=== PATIENT | female | born 1995 | race Caucasian/White ===

== ENCOUNTER 2019-12-04 11:33 | Emergency (ER) | payer SELFPAY ==
--- NOTE | 2019-12-04 11:36 | ED.URI ---
HPI - URI/Sore Throat General Chief Complaint: Upper Respiratory Infection Stated Complaint: head congestion Time Seen by Provider: 12/04/19 11:36 Source: patient and RN notes reviewed History of Present Illness HPI Narrative: Patient is a 24-year-old female who presents the urgent care with complaints of sinus congestion. Patient states that she woke up with it this morning and it has been going around the home for the last week . Patient states that her kids have been taking allergy medication for relief. Patient has not taken anything for her symptoms but was told by her employer to get it checked out . Patient denies any cough, fever, nausea, vomiting. Denies of any known exposure to COVID. No other acute complaints. No acute distress noted. Patient read the plan of care. Related Data Home Medications Medication Instructions Recorded Confirmed No Home Medications 12/04/19 12/04/19 Allergies Allergy/AdvReac Type Severity Reaction Status Date / Time No Known Allergies Allergy Unverified 11/22/18 15:38 Review of Systems Review of Systems: Narrative: CONSTITUTIONAL: Denies fever, chills, or sweats. EYES: Denies visual changes, redness, or discharge. ENT: Reports of sinus congestion CARDIOVASCULAR: Denies chest pain, palpitations, or edema. RESPIRATORY: Denies cough or dyspnea. GASTROINTESTINAL: Denies abdominal pain, nausea, vomiting, or diarrhea. GENITOURINARY: Denies dysuria or hematuria. SKIN: Denies rash or itching. MUSCULOSKELETAL: Denies back pain, joint pain, or myalgia. NEUROLOGIC: Denies headache, numbness, or weakness. All other systems reviewed are negative, except as documented in HPI. PMFSH Comments At the time of my signature, I reviewed and agree with the nursing past medical, surgical, social, and family history. There is no relevant family history pertinent to the patient complaint. Exam Narrative: Exam Narrative: GENERAL: This is a well-nourished, well-developed patient, in no apparent distress. HEAD: normocephalic, atraumatic. EYES: PERRL. Sclera clear/white. Vision is grossly intact. EARS: External ears normal, auditory canals clear and without drainage, TMs normal without perforation. Hearing grossly intact. NOSE: External nose normal with no obvious nasal discharge, mild erythemic nares with clear rhinorrhea. THROAT: Mucous membranes moist, posterior pharynx clear. Mild postnasal drainage NECK: Neck supple CARDIOVASCULAR: Regular rate and rhythm without murmurs, gallops, or rubs. RESPIRATORY: Clear to auscultation. Breath sounds equal bilaterally. No wheezes, rales, or rhonchi. SKIN: warm, intact with no suspicious lesions or rash, good texture and turgor. NEURO: awake, alert, and oriented to person, place and time. There were no obvious focal neurologic abnormalities. EXTREMITIES: No clubbing, cyanosis, or edema. Course Vital Signs Vital signs: Vital Signs Temperature 98.9 F 12/04/19 11:40 Pulse Rate 78 12/04/19 11:40 Respiratory Rate 18 12/04/19 11:40 Blood Pressure 124/66 12/04/19 11:40 Pulse Oximetry 100 12/04/19 11:40 Temperature 98.9 F 12/04/19 11:40 Pulse Rate 78 12/04/19 11:40 Respiratory Rate 18 12/04/19 11:40 Blood Pressure 124/66 12/04/19 11:40 Pulse Oximetry 100 12/04/19 11:40 Reviewed MDM - URI/Sore Throat MDM Narrative Medical decision making narrative: Advised the patient to use [id number] allergy medication such as Claritin or Zyrtec in conjunction with Flonase nasal spray. Use Flonase twice a day for the next few days for sinus relief. May use Benadryl prior to bedtime but do not take in conjunction with Claritin or Zyrtec. Use humidifier. Do not sleep with the windows open or fan blowing on your face. If you develop any increase in symptoms associated with productive cough, shortness of breath or fever?follow-up with your primary care doctor for COVID testing if necessary. Otherwise symptoms do not deem testing at t
[2019-12-04 11:40] VITALS: BP 124/66; PULSE 78; RESP 18; TEMP 37.2; O2SAT 100
== END 2019-12-04 11:55 | disposition home or self-care (01) ==
PROVIDERS: Emergency Provider Nurse Practitioner Family
DX: J34.89 Other specified disorders of nose and nasal sinuses (principal)
CPT/HCPCS: 99211; G0463

== ENCOUNTER 2020-05-21 09:14 | Emergency (ER) | payer OTHER, SELFPAY ==
--- NOTE | 2020-05-21 09:18 | ED.URI ---
HPI - URI/Sore Throat General Chief Complaint: Upper Respiratory Infection Stated Complaint: COVID Time Seen by Provider: 05/21/20 09:48 Source: patient and RN notes reviewed Mode of arrival: ambulatory Limitations: no limitations History of Present Illness HPI Narrative: 24-year-old female presents with concern for nasal congestion, rhinorrhea, headache, diarrhea, body aches for 4 days. Reports today she noticed she lost her sense of taste and smell. She denies fever, body aches, chills, sweats, difficulty breathing. Denies any intervention. MD elicited complaint: nasal congestion Related Data Home Medications Medication Instructions Recorded Confirmed No Home Medications 12/04/19 05/21/20 Allergies Allergy/AdvReac Type Severity Reaction Status Date / Time No Known Allergies Allergy Verified 05/21/20 09:41 Review of Systems Review of Systems: Narrative: CONSTITUTIONAL: Denies malaise, chills, sweats, or fever. EYES: Denies visual changes, redness, or discharge. ENT: Reports rhinorrhea, congestion, loss of sense of taste and smell. Denies sinus pain, otalgia and sore throat. CARDIOVASCULAR: Denies chest pain, palpitations, or edema. RESPIRATORY: Denies cough or dyspnea. GASTROINTESTINAL: Denies abdominal pain, nausea, vomiting. Reports diarrhea SKIN: Denies rash or itching. MUSCULOSKELETAL: Denies myalgia. NEUROLOGIC: Reports headache. All systems reviewed & are unremarkable except as noted in HPI and below PMFSH Comments At time of signature, agree with nursing past medical, surgical, social and family history. There is no relevant family history pertinent to the presenting complaint Exam Narrative: Exam Narrative: GENERAL: Well-appearing, well-nourished, and in no acute distress. HEAD: Normocephalic EYES: PERRLA, conjunctivae clear ENT: Nares clear. Mucous membranes moist. NECK: Supple. No lymphadenopathy CHEST: Clear to auscultation, breath sounds equal. No wheezing, rhonchi, rales, or stridor. No respiratory distress, speaks in full sentences. HEART: Regular rate and rhythm. No murmur heard. SKIN: Warm, dry, no rash. NEURO: Alert and oriented x3. PSYCH: Normal mood and affect Course Course Emergency Course: Patient is aware of diagnosis, understands and agrees to treatment plan. Anticipatory guidance given. Patient agrees to follow-up as directed and is aware of reasons to seek care at the emergency department. Portions of this record may have been created with voice recognition software Vital Signs Vital signs: Reviewed. MDM - URI/Sore Throat MDM Narrative Medical decision making narrative: Differential diagnosis considered: [place] virus, strep pharyngitis, allergic rhinitis, upper respiratory tract infection, sinusitis, rhinosinusitis, nasopharyngitis. viral pharyngitis, otitis media, otitis externa, pneumonia, bronchitis, viral cough syndrome, viral syndrome, and influenza. Exam findings show no acute concerns or changes; patient is non-toxic appearing and is in no distress. Patient is appropriate for outpatient treatment and follow-up. Critical Care Time Critical Care Time Critical Care Time: No Discharge Plan Discharge Clinical Impression: COVID-19 Patient Disposition: Home, Self-Care Condition: Stable Instructions: COVID-19: Slow the Coronavirus Spread (ED) Additional Instructions: Your rapid COVID test was positive today. The following recommendations have been made by the CDC and local Health Departments, regarding COVID-19: -Those individuals with mild cases of COVID-19 can generally be discontinued from isolation, 10 days AFTER the onset of symptoms AND the resolution of fever for 24hrs (without the use of fever-reducing medications) -Those individuals who were asymptomatic, and tested positive, are discontinued from isolation 10 days AFTER their first positive COVID-19 test -Those individuals with SEVERE to CRITICAL illness or immunocompromised diseases may require up to
== END 2020-05-21 10:10 | disposition home or self-care (01) ==
PROVIDERS: Emergency Provider Nurse Practitioner
DX: U07.1 COVID-19 (principal)
CPT/HCPCS: 87426; 99213; C9803; G0463

== ENCOUNTER 2020-10-14 08:23 | Emergency (ER) | payer OTHER, SELFPAY ==
[2020-10-14 08:30] VITALS: BP 113/62; PULSE 78; RESP 20; TEMP 37.5; O2SAT 99
--- NOTE | 2020-10-14 08:30 | ED.EAR ---
HPI - Ear Problem General Chief complaint: Ear Stated complaint: Clogged Left Ear Time Seen by Provider: 10/14/20 08:45 Source: patient, family and RN notes reviewed Mode of arrival: ambulatory Limitations: no limitations History of Present Illness HPI Narrative: 24-year-old female accompanied by children presents to [facility] with complaints of decreased hearing to her left ear with feelings of ear being clogged. Patient denies any pain to her ear, denies any fever denies any sore throat nasal drainage or congestion. Patient states she did go swimming yesterday. She states she did put some peroxide in her left ear with no improvement. MD Complaint: decreased hearing and other (Feels like left ear is clogged) Location: left ear Duration: constant Severity: mild Relieving factors: nothing Exacerbating factors: nothing Context: Reports recent swimming Discharge from ear: Reports no Associated symptoms ear: decreased hearing Treatment prior to arrival: other (Peroxide) Related Data Home Medications Medication Instructions Recorded Confirmed No Home Medications 12/04/19 10/14/20 Allergies Allergy/AdvReac Type Severity Reaction Status Date / Time No Known Allergies Allergy Verified 10/14/20 08:35 Review of Systems Review of Systems: Narrative: CONSTITUTIONAL: Denies fever, chills, or sweats. EYES: Denies visual changes, redness, or discharge. ENT: Denies rhinorrhea, congestion, sore throat, left ear clogged with decreased hearing CARDIOVASCULAR: Denies chest pain, palpitations, or edema. RESPIRATORY: Denies cough or dyspnea. GASTROINTESTINAL: Denies abdominal pain, nausea, vomiting, or diarrhea. GENITOURINARY: Denies dysuria or hematuria. SKIN: Denies rash or itching. MUSCULOSKELETAL: Denies back pain, joint pain, or myalgia. NEUROLOGIC: Denies headache, numbness, or weakness. PSYCHIATRIC: Denies anxiety or depression. All systems reviewed & are unremarkable except as noted in HPI and below PMFSH Past Medical History Medical History (Updated 10/15/20 @ 20:11 by Nicolle Lopez NP) Bronchitis No active medical problems Surgical History Surgical History (Updated 10/14/20 @ 09:06 by Nicolle Lopez NP) History of partial hysterectomy History of tonsillectomy and adenoidectomy Previous section Family History Family History (Updated 10/14/20 @ 09:07 by Nicolle Lopez NP) Other No significant family history Social History Social History (Updated 10/14/20 @ 09:07 by Nicolle Lopez NP) Smoking status: Current every day smoker Tobacco type: e-cigarettes/vaping Alcohol intake: current Alcohol use details: Social Substance use: never Living arrangements: with family Gender identity (if verbalized by the patient): Female Comments At time of signature, agree with nursing past medical, surgical, social and family history. There is no relevant family history pertinent to the presenting complaint Exam Narrative: Exam Narrative: GENERAL: Well-appearing, well-nourished, and in no acute distress. HEAD: Normocephalic, atraumatic. EYES: PERRLA and EOMI. ENT: Nares clear, no rhinorrhea or epistaxis. Mucous membranes moist.Left ear canal full of impacted yellow wax cleansed with wxide flush, Left and right TM's normal with good light reflex no irritation or drainage from ear canals noted, throat pink with no exudates or lesions, no tonsils present. NECK: Supple.no lymphadenopathy CHEST: Clear to auscultation. No respiratory distress.SAO2 99% on room air HEART: Regular rate and rhythm. No murmur heard. Normal peripheral pulses. ABDOMEN: Soft, nontender, nondistended, normal active bowel sounds. EXTREMITIES: Normal range of motion. No edema. SKIN: Warm, dry, no rash. NEURO: No focal deficits. Alert and oriented x3. Course Vital Signs Vital signs: Vital Signs Temperature 37.5 C 10/14/20 08:30 Pulse Rate 78 10/14/20 08:30 Respiratory Rate 20 10/14/20 08:30
[2020-10-14 08:35] VITALS: BP 113/62; PULSE 78; RESP 20; TEMP 37.5; O2SAT 99
--- NOTE | 2020-10-14 09:03 | ED_ITS ---
HPI - Ear Problem General Chief complaint: Ear Stated complaint: Clogged Left Ear Source: patient, family and RN notes reviewed Mode of arrival: ambulatory Limitations: no limitations Related Data Home Medications Medication Instructions Recorded Confirmed No Home Medications 12/04/19 10/14/20 Allergies Allergy/AdvReac Type Severity Reaction Status Date / Time No Known Allergies Allergy Verified 10/14/20 08:35 [facility] Surgical History Surgical History (Updated 10/14/20 @ 09:06 by Nicolel Lopez NP) History of partial hysterectomy History of tonsillectomy and adenoidectomy Previous section Family History Family History (Updated 10/14/20 @ 09:07 by Nicolle Lopez NP) Other No significant family history Social History Social History (Updated 10/14/20 @ 09:07 by Nicolle Lopez NP) Smoking status: Current every day smoker Tobacco type: e-cigarettes/vaping Alcohol intake: current Alcohol use details: Social Substance use: never Living arrangements: with family Gender identity (if verbalized by the patient): Female Course Vital Signs Vital signs: Vital Signs Temperature 37.5 C 10/14/20 08:30 Pulse Rate 78 10/14/20 08:30 Respiratory Rate 20 10/14/20 08:30 Blood Pressure 113/62 10/14/20 08:30 Pulse Oximetry 99 10/14/20 08:30 Temperature 37.5 C 10/14/20 08:35 Pulse Rate 78 10/14/20 08:35 Respiratory Rate 20 10/14/20 08:35 Blood Pressure 113/62 10/14/20 08:35 Pulse Oximetry 99 10/14/20 08:35 Medical Decision Making Vital Signs Vital Signs: Vital Signs Temperature 37.5 C 10/14/20 08:30 Pulse Rate 78 10/14/20 08:30 Respiratory Rate 20 10/14/20 08:30 Blood Pressure 113/62 10/14/20 08:30 Pulse Oximetry 99 10/14/20 08:30 Temperature 37.5 C 10/14/20 08:35 Pulse Rate 78 10/14/20 08:35 Respiratory Rate 20 10/14/20 08:35 Blood Pressure 113/62 10/14/20 08:35 Pulse Oximetry 99 10/14/20 08:35 Discharge Plan Discharge Clinical Impression: Impacted cerumen of left ear Patient Disposition: Home, Self-Care Condition: Stable Additional Instructions: Increase fluids especially juices and water Dihh-bjo-gajkpup cough and cold medicine of your choice for your symptoms Tylenol or ibuprofen for any fever pain Debrox 10 drops to bilateral ears 1 time weekly heat to the face 20-30 minutes 4-6 times a day for pain Salt water gargles, throat lozenges or throat sprays as desired If your symptoms persist, change or worsen significantly before you can contact your personal physician then please, without delay, go to the emergency department for further evaluation. Follow-up with PCP in 7-10 days or sooner if needed Prescriptions: No Action No Home Medications RF: 0 Follow-up/Referrals: UNKNOWN,DOCTOR [Primary Care Provider] - Time of Disposition: 09:08
== END 2020-10-14 09:10 | disposition home or self-care (01) ==
PROVIDERS: Emergency Provider Registered Nurse
DX: H61.22 Impacted cerumen, left ear (principal); F17.200 Nicotine dependence, unspecified, uncomplicated
CPT/HCPCS: 69209; 99213; G0463

== ENCOUNTER 2023-06-02 03:47 | Day surgery (SDC) | payer OTHER, SELFPAY ==
--- NOTE | 2023-05-24 16:01 | SUR.PREOP ---
Report to the Outpatient Waiting Room, entrance under the green pavilion located off [facility], at time 0600 on date 06/02/23. Planned Procedure Time: 0730. Time changes happen often and if your time is changed the preop area will call you the afternoon before. - You and your visitor will be asked to self-screen and do not enter if you have any COVID symptoms. - A mask is optional within the hospital at this time. Patients may have clear liquids (water, carbonated beverages, clear teas, apple juice) until 3 hours prior to surgery with a maximum of 20 ounces. - NO CLEAR LIQUIDS AFTER 0430 - No food from midnight until time of surgery - Infants may have breast milk until 4 hours before surgery, infant formula 6 hours prior to surgery. - Children will be allowed to drink immediately following surgery. If applicable, please bring a bottle or sippy cup to assist with drinking. Juice, water, soda, and popsicles are readily available. For infants on formula, please bring formula the day of surgery. Pacifiers are allowed. Please no make-up, nail ukrainian, hairspray, perfume, deodorant, or body powder the day of surgery. No jewelry (including any body piercings) or valuables the day of surgery, leave them at home. Please take a shower or bath the night before, or the morning of, surgery with an antibacterial soap. Wear comfortable, loose fitting clothing. Children are encouraged to wear pajamas. - Jewelry must be removed prior to entering the operating room. Rings and piercings that are not removed may be cut off. - The hospital will not accept responsibility for valuables. - Please leave all valuables, including medications, at home the day of surgery. If you are going home after surgery, a licensed van cdl driver must drive you home. - NO public transportation without another adult if you receive anesthesia. - We recommend that an adult stay with you for 24 hours following discharge. - We also recommend that you do not drive, make important decision, drink alcoholic beverages, or take any drugs that were not prescribed by your health care provider for at least 24 hours after your discharge time. For Pediatric surgeries, we recommend two adults accompany the child home. Follow any additional instructions given to you from your surgeon. If you or anyone in your household have experienced Covid symptoms in the past week, please notify your surgeon or the nurse liaison at the phone number below for possible testing. Telephone instructions given to CHRIS AJ and asked if any additional questions and then verbalized understanding. Patient advised to call surgeon office or pre surgery nurse liaison [phone] if any additional questions.
[2023-05-24 16:17] VITALS: BMI 35.9
--- NOTE | 2023-06-01 09:27 | WPDANESEPPF ---
Anes - Initial Pre Proc Eval Procedure: Operation Date: 06/02/23 07:30 Proposed Procedures p Laparoscopic Right Ovarian Cystectomy - Jayshree Mas MD Date/Time: 06/01/23 09:27 Surgeon: Jayshree Mas MD Pre Op Diagnosis: Endometriosis of Right Ovary Patient Data Age: 27 Gender: F Height: 1.55 m Weight: 86.3 kg Allergies Allergy/AdvReac Type Severity Reaction Status Date / Time No Known Allergies Allergy Verified 06/02/23 07:03 Home Medications Medication Instructions Recorded Confirmed Type No Home Medications 12/04/19 05/24/23 History Patient hx anesthesia problems: none Family hx anesthesia problems: none Results Review: All pre-operative results and documents have been reviewed as part of the pre-operative evaluation. FORMERLY [facility], [facility] Past Medical History Medical History (Updated 06/01/23 @ 09:34 by Sergio Amador DO) Anxiety Surgical History Surgical History (Updated 10/14/20 @ 09:06 by Nicolle Lopez NP) History of partial hysterectomy History of tonsillectomy and adenoidectomy Previous section Family History Family History (Updated 10/14/20 @ 09:07 by Nicolle Lopez NP) Other No significant family history Social History Social History (Updated 10/14/20 @ 09:07 by Nicolle Lopez NP) Smoking packs per day: 1 Smoking cigarettes per day: 20.0 Years smoked: 10 Smoking pack-years: 10.00 Smoking status: Former smoker Tobacco type: cigarettes and e-cigarettes/vaping Smoking end date: 05/10/20 Additional smoking assessment comments: STOPPED VAPING 2022 Alcohol intake: current Alcohol use details: Social Substance use: never Living arrangements: with family Gender identity (if verbalized by the patient): Female Spiritual care concerns: No Anes - Eval Final PreProcedure Day of Procedure 06/01/23 09:27 Patient weight: obese Heart: regular rate and rhythm Lungs: clear to auscultation Airway: Mallampati scale class II Neurological: alert and oriented Last oral intake: >/= 8 hours ASA classification: II Emergent: no Anesthetic plan: proceed Anesthesia type and monitoring: general ETT and standard monitoring Results Review: All pre-operative results and documents have been reviewed as part of the pre-operative evaluation. Informed Consent: The patient's anesthetic plan and its attendant risks and benefits were discussed with the patient/family/POA. Questions were solicited and answers provided to the satisfaction of the patient/family/POA.
[2023-06-02] VITALS (9 sets, daily range): BP systolic 115–126; BP diastolic 55–76; PULSE 53–94; RESP 14–20; TEMP 36.5–36.8; O2SAT 94–100
[2023-06-02] MEDS: KETOROLAC 15 MG/ML VIAL (*BKC) IV PUSH (06:45)
[2023-06-02] MEDS: LACTATED RINGERS 1,000 ML 30 ML IV CONT ×2 (06:45→09:06)
[2023-06-02] MEDS: ACETAMINOPHEN 500 MG TABLET 1000 MG PO (06:45)
--- NOTE | 2023-06-02 07:15 | WPDHPUPDATE1 ---
History and Physical Update Update Date/Time: 06/02/23 07:15 History and Physical has been reviewed, including an updated exam of the patient. There are NO changes in the patient's condition. Risks, benefits, and alternatives have been discussed and questions answered. Patient agrees to proceed with procedure.
[2023-06-02] MEDS: fentaNYL CITRATE INJ (*CRX) 100 MCG/2 ML VIAL 25 MCG IV PUSH ×2 (09:20→09:23)
--- NOTE | 2023-06-02 09:22 | W.PM.PROC2 ---
Procedure Note - Detailed Date of Procedure 06/02/23 Pre-op Diagnosis Endometriosis of Right Ovary Post-op Diagnosis Same ( Adhesions -abdominal and pelvic) Procedure Performed laparoscopic right ovarian cystectomy and adhesiolysis- 45 minutes of adhesiolysis Surgeon Jayshree Msa MD Anesthesia General Indications Pelvic pain Findings widespread adhesions of the omentum to the anterior abdominal wall and pelvic structures, including vaginal cuff and left ovary. 4 cm endometrioma of the right ovary. Description of Procedure The patient was taken to the operating room. She was prepped and draped in the dorsal lithotomy position after induction general anesthesia. A 5 mm incision was made with a scalpel on the abdominal skin in the left upper quadrant of the abdomen. A 5 mm trocar was inserted into the intra-abdominal cavity under direct visualization the scope. In the same fashion a 5 mm left lower quadrant trocar was inserted and a 5 mm infraumbilical trocar was inserted. Adhesiolysis was performed with the LigaSure for 45 minutes. The omentum was from the anterior abdominal wall and pelvic structures including the vaginal cuff and left ovary. Ovarian cystectomy performed on the right ovary. The cyst capsule was resected. The cut surface of the ovary was cauterized thoroughly. Surgicel was placed on cut surface. The pelvis was irrigated. The pneumoperitoneum was reduced. The trocars were removed. Skin was closed with subcuticular 4 micro. The patient's incisions were covered with Dermabond. She was taken recovery room in stable condition. Sponge lap and needle counts were correct x2. Pathology Yes Complications No immediate complications Condition Stable Disposition Same day
[2023-06-02] MEDS: oxyCODONE HCL (*CRX) 5 MG TAB IR PO (10:15)
== END 2023-06-02 11:03 | disposition home or self-care (01) ==
PROVIDERS: Visit Provider Obstetrics & Gynecology
PROC: (CPT 49320; principal; 2023-06-02 07:30)
DX: N83.11 Corpus luteum cyst of right ovary (principal); N73.6 Female pelvic peritoneal adhesions (postinfective); Z87.891 Personal history of nicotine dependence; E66.9 Obesity, unspecified; Z68.35 Body mass index [BMI] 35.0-35.9, adult
CPT/HCPCS: 58662; 88305; A9270; J1100; J1596; J1885; J2250; J2405; J2710; J3010; J7030; J7120

== ENCOUNTER 2023-07-26 08:43 | Emergency (ER) | payer OTHER, SELFPAY ==
[2023-07-26 08:48] VITALS: BP 117/64; PULSE 88; RESP 20; TEMP 37.2; O2SAT 100
[2023-07-26 08:55] VITALS: BP 117/64; PULSE 88; RESP 20; TEMP 37.2; O2SAT 100
--- NOTE | 2023-07-26 09:33 | ED.URI ---
HPI - URI/Sore Throat General Chief Complaint: Upper Respiratory Infection Stated Complaint: head congestion/achey Time Seen by Provider: 07/26/23 09:33 Source: patient, RN notes reviewed and old records reviewed Mode of arrival: ambulatory Limitations: no limitations History of Present Illness HPI Narrative: 27-year-old female who presents to [facility] with complaints of sinus congestion and drainage and feels achy since yesterday morning. Patient states he does have some forehead pressure and facial pressure with chills. Patient states she had been exposed to influenza from family member. Patient has not taken any OTC medications for her symptoms. MD elicited complaint: rhinorrhea, nasal congestion and other (body aches) Onset (ago): day(s) (Since yesterday morning) Pain scale (0-10): 3 Able to tolerate fluids by mouth: Yes Treatments prior to arrival: none Related Data Home Medications Medication Instructions Recorded Confirmed phentermine 15 mg capsule mg 07/26/23 Allergies Allergy/AdvReac Type Severity Reaction Status Date / Time No Known Allergies Allergy Verified 06/02/23 07:03 Review of Systems Review of Systems: CONSTITUTIONAL: Reports malaise, chills, sweats, or fever. EYES: Denies visual changes, redness, or discharge. ENT: Reports rhinorrhea, congestion, sinus pain, no otalgia and no sore throat. CARDIOVASCULAR: Denies chest pain, palpitations, or edema. RESPIRATORY: Reports no cough.? Denies dyspnea. GASTROINTESTINAL: Denies abdominal pain, nausea, vomiting, diarrhea SKIN: Denies rash or itching. MUSCULOSKELETAL: Reports myalgia. NEUROLOGIC: Denies headache. All systems reviewed & are unremarkable except as noted in HPI and below PMFSH Past Medical History Medical History Anxiety Surgical History Surgical History History of partial hysterectomy History of tonsillectomy and adenoidectomy Previous section Family History Family History Other No significant family history Social History Social History Smoking packs per day: 1 Smoking cigarettes per day: 20.0 Years smoked: 10 Smoking pack-years: 10.00 Smoking status: Former smoker Tobacco type: cigarettes and e-cigarettes/vaping Smoking end date: 05/10/20 Additional smoking assessment comments: STOPPED VAPING 2022 Alcohol intake: current Alcohol use details: Social Substance use: never Living arrangements: with family Gender identity (if verbalized by the patient): Female Spiritual care concerns: No Comments At time of signature, agree with nursing past medical, surgical, social and family history. There is no relevant family history pertinent to the presenting complaint Exam Narrative: GENERAL: Well-appearing, well-nourished, and in no acute distress. HEAD: Normocephalic EYES: PERRLA, conjunctivae clear ENT: Nares clear, turbinates edematous and erythematous, clear discharge, sinus pressure.. Mucous membranes moist. TM pearly pierre with dull light reflex bilaterally; no tragal tenderness. Oropharynx erythematous without lesions. Tonsils not present and throat without exudate, no drooling, no hoarseness, no trismus, uvula midline.post nasal discharge NECK: Supple. No lymphadenopathy CHEST: Clear to auscultation, breath sounds equal. No wheezing, rhonchi, rales, or stridor. No respiratory distress, speaks in full sentences.no cough noted,SAO2 100% on room air HEART: Regular rate and rhythm. No murmur heard. SKIN: Warm, dry, no rash. NEURO: Alert and oriented x3. PSYCH: Normal mood and affect Course Course Emergency Course: Patient is aware of diagnosis, understands and agrees to treatment plan.? Anticipatory guidance given.? Patie
== END 2023-07-26 10:09 | disposition home or self-care (01) ==
PROVIDERS: Emergency Provider Registered Nurse
DX: J10.1 Influenza due to other identified influenza virus with other respiratory manifestations (principal); Z87.891 Personal history of nicotine dependence
CPT/HCPCS: 87804; 99213; G0463

== ENCOUNTER 2023-09-11 10:38 | Emergency (ER) | payer OTHER, SELFPAY ==
[2023-09-11 10:47] VITALS: BP 136/66; PULSE 90; RESP 16; TEMP 36.9; O2SAT 99
--- NOTE | 2023-09-11 10:59 | ED.URI ---
HPI - URI/Sore Throat General Chief Complaint: Upper Respiratory Infection Stated Complaint: cough/congestion Time Seen by Provider: 09/11/23 10:59 Source: patient Mode of arrival: ambulatory Limitations: no limitations History of Present Illness HPI Narrative: 27 year old female who presents to [facility] care with complaints of 6 day history of cough and chest congestion with no fevers noted. Patient reports no ear pain or sore sore admits to some nasal congestion and drainage. Patient has been taking some sinus decongestant OTC for her symptoms. Patient reports no shortness of breath or any wheezing noted SAO2 99% on room air with no tachypnea noted. MD elicited complaint: cough, rhinorrhea, nasal congestion and other (chest congestion) Pertinent past history: asthma (as child) Onset (ago): day(s) (6) Consistency: constant Severity: moderate Able to tolerate fluids by mouth: Yes Treatments prior to arrival: other (sinus decongestant) Related Data Allergies Allergy/AdvReac Type Severity Reaction Status Date / Time No Known Allergies Allergy Verified 06/02/23 07:03 Review of Systems Review of Systems: CONSTITUTIONAL: Denies malaise, chills, sweats, or fever. EYES: Denies visual changes, redness, or discharge. ENT: Reports rhinorrhea, congestion, sinus pain,no otalgia and no sore throat. CARDIOVASCULAR: Denies chest pain, palpitations, or edema. RESPIRATORY: Reports cough.? Denies dyspnea. GASTROINTESTINAL: Denies abdominal pain, nausea, vomiting, diarrhea SKIN: Denies rash or itching. MUSCULOSKELETAL: Denies myalgia. NEUROLOGIC: Denies headache. All systems reviewed & are unremarkable except as noted in HPI and below PMFSH Past Medical History Medical History Anxiety Asthma as child Surgical History Surgical History History of partial hysterectomy History of tonsillectomy and adenoidectomy Previous section Family History Family History Other No significant family history Social History Social History Smoking packs per day: 1 Smoking cigarettes per day: 20.0 Years smoked: 10 Smoking pack-years: 10.00 Smoking status: Former smoker Tobacco type: cigarettes and e-cigarettes/vaping Smoking end date: 05/10/20 Additional smoking assessment comments: STOPPED VAPING 2022 Alcohol intake: current Alcohol use details: Social Substance use: never Living arrangements: with family Gender identity (if verbalized by the patient): Female Spiritual care concerns: No Comments At time of signature, agree with nursing past medical, surgical, social and family history. There is no relevant family history pertinent to the presenting complaint Exam Narrative: GENERAL: Well-appearing, well-nourished, and in no acute distress. HEAD: Normocephalic EYES: PERRLA, conjunctivae clear ENT: Nares clear, turbinates edematous and erythematous, clear discharge. Mucous membranes moist. TM pearly pierre with dull light reflex bilaterally; no tragal tenderness. Oropharynx erythematous without lesions. Tonsils not present and throat without exudate, no drooling, no hoarseness, no trismus, uvula midline.post nasal drainage NECK: Supple. No lymphadenopathy CHEST: Clear to auscultation, breath sounds equal. No wheezing, rhonchi, rales, or stridor. No respiratory distress, speaks in full sentences.SAO2 99% on room air, occasional dry cough HEART: Regular rate and rhythm. No murmur heard. SKIN: Warm, dry, no rash. NEURO: Alert and oriented x3. PSYCH: Normal mood and affect Course Course Emergency Course: Patient is aware of diagnosis, understands and agrees to treatment plan.? Anticipatory guidance given.? Patient agrees to follow-up as directed and is
== END 2023-09-11 11:18 | disposition home or self-care (01) ==
PROVIDERS: Emergency Provider Registered Nurse
DX: J06.9 Acute upper respiratory infection, unspecified (principal); Z87.891 Personal history of nicotine dependence; Z90.711 Acquired absence of uterus with remaining cervical stump
CPT/HCPCS: 99213; G0463

== ENCOUNTER 2024-04-23 08:37 | Emergency (ER) | payer OTHER, SELFPAY ==
[2024-04-23 08:47] VITALS: BP 128/81; PULSE 82; RESP 20; TEMP 37; O2SAT 100
--- NOTE | 2024-04-23 08:56 | ED.URI ---
HPI - URI/Sore Throat General Chief Complaint: Upper Respiratory Infection Stated Complaint: cough with side pain History of Present Illness HPI Narrative: Patient presents with a 7 day history of cough nasal congestion and runny nose. No shortness of breath no chest pain denies any concern for COVID or influenza states her son kids have all been home sick at home with the same symptoms. Patient is not taking thing [id number] for her symptoms. Related Data Allergies Allergy/AdvReac Type Severity Reaction Status Date / Time No Known Allergies Allergy Verified 06/02/23 07:03 Review of Systems Review of Systems: CONSTITUTIONAL: Denies chills, or sweats. Reports fever and generalized body aches EYES: Denies visual changes, redness, or discharge. ENT: Denies otalgia. Reports nasal congestion runny nose and sore throat CARDIOVASCULAR: Denies chest pain, palpitations, or edema. RESPIRATORY: Denies dyspnea. Reports occasional cough GASTROINTESTINAL: Denies abdominal pain, nausea, vomiting, or diarrhea. GENITOURINARY: Denies dysuria or hematuria. SKIN: Denies rash or itching. MUSCULOSKELETAL: Denies back pain, joint pain, or myalgia. Reports generalized body aches NEUROLOGIC: Denies headache, numbness, or weakness. PSYCHIATRIC: Denies anxiety or depression. COUNT INCLUDES THE [facility] Past Medical History Medical History Anxiety Asthma as child Surgical History Surgical History History of partial hysterectomy History of tonsillectomy and adenoidectomy Previous section Family History Family History Other No significant family history Social History Social History Smoking packs per day: 1 Smoking cigarettes per day: 20.0 Years smoked: 10 Smoking pack-years: 10.00 Smoking status: Former smoker Tobacco type: cigarettes and e-cigarettes/vaping Smoking end date: 05/10/20 Additional smoking assessment comments: STOPPED VAPING 2022 Alcohol intake: current Alcohol use details: Social Substance use: never Living arrangements: with family Gender identity (if verbalized by the patient): Female Spiritual care concerns: No Comments At time of signature, agree with nursing past medical, surgical, social and family history. There is no relevant family history pertinent to the presenting complaint Exam Narrative: The patient is a well-developed, well-nourished in no acute distress. SKIN: Skin is warm and dry without erythema, swelling or exudate. There is good turgor. No tenting. HEAD: Atraumatic. Normocephalic. No temporal or scalp tenderness. EYES: Moist and bright. Sclera and conjunctivae normal. No discharge. PERRLA. Extraocular motions intact. Gross visual acuity intact. EARS: Pinna is normal shape and contour. Clear external auditory canals. TM pearly solano with good cone of light, no erythema or suppuration. Bilateral cerumen noted no gross hearing deficit. NOSE: pink, moist mucosa with good air movement. Clear rhinorrhea without nasal flaring. Septum midline. Mouth: moist mucous membranes. THROAT; mild erythema noted to posterior oropharynx with moderate postnasal drainage. Without exudate or ulceration.. Uvula midline. Normal movement of soft palate. NECK: Supple and nontender with full range of motion without discomfort. No meningeal signs. LUNGS: Equal and bilateral breath sounds with few scattered expiratory wheezes coarse lung sounds right lower base CHEST: The chest wall is without retractions or use of accessory muscles. HEART: Has a regular rate and rhythm without murmur, gallops, click or rub. ABDOMEN: Soft, nontender with positive active bowel sounds. No rebound tenderness. EXTREMITIES: Without cyanosis, clubbing or edema. Equal 2+ distal pulses and 2 second capillary refill noted. NEUROLOGIC: alert, active, . The patient moves all extremities with normal muscle strength. Normal muscle tone is noted. Normal coordination is noted. NO focal neurological findings noted. Course Course Level of Care: Express Care Visit Vital Signs Vital signs: Vital Signs Temperature 37.0 C 04/23/24 08:47 Pulse Rate 82 04/23/24 08:47 Respiratory Rate 20 04/23/24 08:47 Blood Pressure 128/81 04/23/24 08:47 Pulse Oximetry 100 04/23/24 08:47 Temperature 37.0 C 04/23/24 08:47 Pulse Rate 82 04/23/24 08:47 Respiratory Rate 20 04/23/24 08:47 Blood Pressure 128/81 04/23/24 08:47 Pulse Oximetry 100 12/15/24 08:47 Discharge Plan Discharge Clinical Impression: Acute lower respiratory infection Patient Disposition: Home, Self-Care Condition: Stable Instructions: Antibiotic Form Additional Instructions: 1. Bronchitis will generally resolve on it's own and may take a few weeks. Bronchitis is usually caused by a virus, but sometimes it may be bacterial. Antibiotics generally do not help bronchitis go away faster. Yellow or green mucous, does not always mean bacterial. If you are prescribed an antibiotic for your symptoms be sure to take the entire course of antibioitics. Take with food. It is also suggested to take with yogurt or a probiotic to decrease GI side effects. You may also be prescribed a steroid, if so, be sure to take entire course, first thing in the morning with food. 2. Rest and drink lots of fluids. Maintain a good diet, with foods rich in vitamins and minerals, and lots of fruits and vegetables. 3. Drinking hot tea, warm tea with honey, sucking on cough drops or hard candy, throat lozenges may help with sore throat. 4. OTC cough and cold medications are okay to take for your symptoms, including Mucinex expectorant. 5. If you have high BP, Coricidin HBP is behind the counter , you may ask your pharmacist for this. Otherwise, avoid medications that have a D at the end or a decongestant in them. These medications may increase your BP. 6. Breathing in warm, moist air, such as in the shower or a humidifier at your bedside or in your home. 7. Avoid smoking or being around those who smoke. 8. Protect yourself and others, cover your mouth when you cough and sneeze, and always wash your hands to prevent the spread of germs, if you are unable to, use hand realtime court reporter. . . Patient Language: Hungarian Prescriptions: New cetirizine [Zyrtec] 10 mg tablet 10 mg PO DAILY Qty: 14 0RF prednisone 20 mg tablet 40 mg PO DAILY 5 Days Qty: 10 0RF benzonatate 100 mg capsule 100 mg PO TID PRN (Reason: cough) 5 Days Qty: 10 0RF albuterol sulfate 90 mcg/actuation HFA aerosol inhaler 2 puff inhalation QID PRN (Reason: shortness of breath or wheezing) Qty: 1 0RF fluticasone propionate [Flonase Allergy Relief] 50 mcg/actuation spray,suspension 2 spray intranasal DAILY Qty: 16 0RF Rx Instructions: administer into each nostril azithromycin [Zithromax Z-Evens] 250 mg tablet See Rx Instructions .ROUTE .COMPLEX Qty: 6 0RF Rx Instructions: take 500 mg today (day 1), then 250 mg for 4 days (days 2-5) Follow-up/Referrals: Carline,MD Apolinar [Primary Care Provider] -
--- OUTSIDE RECORDS SUMMARY | 2024-04-27 17:59 | XMS_ITS | Encounter Summary ---
Author Organization [facility] Address [address] [place] [address] Care Team Providers Care Security Sales Manager Name Role Phone Glaa Singh MD Primary Care Provider [phone] Encounter Details Date Type Department Care Team (Late st Contact Info) Description 04/09/2023 12:30 PM TUNGSTEN REFINER Testing Visit [facility] - ENT [address] [place] [address] [phone] Fantasma Cervantes, PhD [address] [place] [address] [place] [address] Dizziness Social History Tobacco Use Types Packs/Day Years Used Date Smoking Tobacco: Every Day Cigarettes Smokeless Tobacco: Never Alcohol Use Standard Drinks/Week Comments No 0 (1 standard drink = 0.6 oz pur e alcohol) Sex and Gender Information Value Date Recorded Sex Assigned at Not on file Gender Identity Not on file Sexual Orientation Not on file documented as of this encounter Functional Status Functional Status Response Date of Assess ment Is person deaf or have serious hearing difficult y? No 11/25/2018 Is person blind or have serious difficulty seein g? No 11/25/2018 Does person have serious dif ficulty walking/climbing stairs? No 11/25/2018 Does person have difficulty dressing/bathing? No 11/25/2018 Does person have difficulty doing errands alone? No 11/25/2018 Cognitive Status Response Date of Assessm ent Does person have difficulty concentrating/remembering/making decisions? No 11/25/2018 documented as of this encounter Plan of Treatment Not on file documented as of this encounter Procedures Procedure Name Priority Date/Time Associated Diagnosis Comments AUDIOLOGY/TYMPANOME TRY ORDER Routine 04/09/2023 12:53 PM TUNGSTEN REFINER documented in this encounter Results * AUDIOLOGY/TYMPANOMETRY ORDER (04/09/2023 12:53 PM TUNGSTEN REFINER) Narrative Fantasma Cervantes, PhD - 04/09/2023 1:08 PM TUNGSTEN REFINER HISTORY: Cait Mathews is a 27 year old female was seen for an assessment of their hearing. ??The patient reports dizziness, but thinks it is related to her anxiety. ?? There is a report of tinnitus. ??There is not a report of otalgia. There is not a report of noise exposure. There is not a history of hearing loss in the family. There is not a history of previous ear surgery. RESULTS: Pure-tone air/bone conduction testing revealed a normal ??sensorineural hearing in the right ear and a normal sensorineural hearing in the left ear. Immittance measures revealed a Type A tympanogram in the right ear, indicating normal middle ear function. Results for the left ear revealed a Type As tympanogram, indicating stiff middle ear function in that ear. Findings were reviewed and discussed with Cait Mathews following the hearing evaluation. All questions were answered. PLAN: 1. The risks and benefits of my recommendations, as well as other treatment options were discussed today. 2. I recommend that the patient follow up with their facility, ENT or PCP PRN. Fantasma Cervantes, Ph.D., CHARLENE., CCC-A Ignition Specialist Director, Division of Audiology Department of Otolaryngology- Head & Neck Surgery [facility] Fantasma Cervantes PhD AUDIOLOGY SERVICES [employer] documented in this encounter Visit Diagnoses Diagnosis Dizziness- Primary Dizziness and giddiness documented in this encounter Care Teams Security Sales Manager Relationship Specialty Start Date End Date Gala Singh MD [address] [id number] PCP - General 08/02/18 documented as of this encounter
--- OUTSIDE RECORDS SUMMARY | 2024-04-27 17:59 | XMS_ITS | Encounter Summary ---
Author Organization [facility] Address [address] [place], [place] [address] [address] Care Team Providers Care Hydroponics Grower Name Role Phone Gala Singh MD Primary Care Provider [phone] Reason for Visit * Reason Comments Care bottle 12/21 baby gir l c sec Encounter Details Date Type Department Care Team (Latest Contact Info) Description 01/05/2019 8:20 AM CDT - 01/05/2019 11:59 PM CDT Hospital Encounter [facility]ERNAL/ EVALUATION UNIT [address] [facility] [address] [place] [address] Mine Lopez, SPEECH PATHOLOGIST ASSISTANT-RESIDENT SERVICE COORDINATOR [address] [place] [address] [place] [address] Discharge Disposition: Home or Self Care Social History Tobacco Use Types Packs/Day Years Used Date Smoking Tobacco: Every Day Cigarettes Smokeless Tobacco: Never Alcohol Use Standard Drinks/Week Comments No 0 (1 standard drink = 0.6 oz pur e alcohol) Sex and Gender Information Value Date Recorded Sex Assigned at Not on file Gender Identity Not on file Sexual Orientation Not on file documented as of this encounter Last Filed Vital Signs Vital Sign Reading Time Taken Comments Blood Pressure 149/86 01/05/2019 8:55 AM CDT Pulse - - Temperature - - Respiratory Rate - - Oxygen Saturation - - Inhaled Oxygen Concentration - - Weight 87.1 kg (192 lb) 01/05/2019 8:55 AM CDT Height - - Body Mass Index 37.5 12/21/2018 6:14 AM CDT documented in this encounter Functional Status Functional Status Response [...] No 11/25/2018 documented as of this encounter Medications at Time of Discharge Medication Sig Dispensed Refills Start Date End Date amoxicillin (AMOXIL) 875 MG tablet Take 875 mg by mouth 2 times daily docusate sodium (COLACE) 100 MG capsule Take 1 capsule by mouth 2 times daily 60 capsule 1 12/25/2018 ibuprofen (MOTRIN) 600 MG tablet Take 1 tablet by mouth every 6 hours as needed for Pain 40 tablet 1 12/25/2018 labetalol (NORMODYNE; TRANDATE) 200 MG tablet Take 4 tablets by mouth every 12 hours 120 tablet 3 12/27/2018 oxyCODONE-acetaminoph en (PERCOCET) 5-325 MG tablet Take 1 tablet by mouth every 6 hours as needed for Pain 20 tablet 12/25/2018 Vit-Fe Fumarate-FA ( VITAMIN) 27-0.8 MG tablet Take 1 tablet by mouth once daily Wound Dressings (INTERDRY AG TEXTILE 10 X12') MISC 1 Each by Apply externally route 2 times daily 30 Each 1 01/05/2019 labetalol (NORMODYNE; TRANDATE) 200 MG tablet Take 2 tablets by mouth every 12 hours for 60 days 120 tablet 1 12/26/2018 02/24/2019 documented as of this encounter Progress Notes * Sabine Felipe RN - 01/05/2019 2:31 PM CDT Pt returned call. She will call her insurance company and get number to medical supply store. Informed her to call us back with a fax number to fax the prescription to. Script placed in green folder at nurses desk. * Sabine Felipe RN - 01/05/2019 2:27 PM CDT LMOR for pt to call the office. Pt needs to call her insurance company and get the name of medical supply store and fax number to fax over a prescription for interdry bandages. * Vannesa Bowles, SPEECH PATHOLOGIST ASSISTANT-RESIDENT SERVICE COORDINATOR - 01/05/2019 9:40 AM CDT [facility] Note Subjective: Patient here for 2 wk incision check and staple removal. She is s/p Section with Hysterectomy. She states that her mood has been stable and denies SI/HI. Lochia is light. Baby doing well, bottle feeding. Has not resumed sexual activity. Denies chest pain, SOB, or leg pain. Denies lightheadedness or dizziness. Denies headache, vision changes, or RUQ pain. Has not yet taken her Labetalol this morning as she sometimes forgets. 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 Gastroesophageal reflux disease Hyperhidrosis Placenta previa with hemorrhage, delivered, current hospitalization Vaginal bleeding during Insulin controlled gestational diabetes mellitus (GDM) in third trimester Maternal asthma complicating Bilobed placenta 34 weeks gestation of Depression Placenta accreta affecting delivery Delivery by hysterectomy Gestational hypertension, antepartum Placenta previa in third trimester Objective: BP 149/86 Wt 192 lb (87.1 kg) BMI 37.5 kg/m2 Overall: Alert and oriented x3 with no apparent signs of distress Heart: RRR, S1, S2 Lungs: Clear to auscultation bilaterally Abdomen: Soft and non tender, + bowel sounds Incision: Starr removed without difficulty, patient tolerated well. Incision clean dry and intactwith edges well approximated. There are no signs of infection, no drainage noted, no edema noted. Slight erythema where the jose were located. White 1.5cm circular area midline where vertical and horizontal incisions meet, removed with q-tip, granulation tissue beneath. Given ABD pad to cover incision. Pelvic: deferred Extremities: WNL, no edema, normal size & shape. EPDS: 1 Urine test: not done Pap reviewed: per ACOG completed 12/2016 Assessment/Plan: Cait Mathews is a s/p with hysterectomy 1. PP week 2 follow up 1. Mood: Stable, denies SI/HI. EPDS: Total Score: 1 2. Baby: Doing well, bottle feeding 3. Bleeding: Light lochia 4. Pap: not due until 2019 5. Contraception: hysterectomy 6. Gardasil series: not discussed today 2. with Hysterectomy 1. Placenta Accreta 2. Hgb 9.6 3. Incision healing well 4. Orders sent for Interdry dressings 3. Pre-eclampsia w/SF 1. Labetolol 800 mg BID, does not take as directed 2. BP today 149/86, asymptomatic 3. Discussed s/s of hypoglycemia, encouraged patient to check blood pressures at home. To call if symptomatic 4. A2GDM 1. Needs 2 hour GTT 2. Understands she needs to be fasting at follow up visit 3. GTT 97/167/121/138 5. Education: Signs and symptoms of PP depression, infection, care of the incision, and when to return to clinic. RTC 4 wks with 2 hour GTT ADI Nick 01/05/2019 1:06 PM * Rodger Alexander RN - 01/05/2019 9:02 AM CDT Diapers provided. Juana Alexander RN * Rodger Alexander RN - 01/05/2019 8:59 AM CDT Patient states she is not taking Labetalol. Patient states she forgets . Patient states last dose was 2 days ago. Juana Alexander RN documented in this encounter Plan of Treatment Not on file documented as of this encounter Visit Diagnoses Diagnosis Encounter for routine follow-up (HCC) Routine follow-up documented in this encounter Care Teams Hydroponics Grower Relationship Specialty Start Date End Date Gala Singh MD [address] [id number] PCP - General 08/02/18 documented as of this encounter
--- OUTSIDE RECORDS SUMMARY | 2024-04-27 17:59 | XMS_ITS | Patient Health Summary ---
Author Organization [facility] Long Play Address [address] [place] [address] Care Team Providers Care School Health Assistant Name Role Phone Gala Singh MD Primary Care Provider [phone] Note from [facility],non-owned Affiliates and Associated Physician Practices is amultiple site organization consisting of ambulatory clinics and hospital sitesin [place], [place], [place] and [place]. This disclosure is being madepursuant to the Care Everywhere program and may not contain all information available regarding this patient. Last updated 18.[facility] Allergies No known active allergies Medications * Be aware that medications may not be up to date on this document. Alwaysverify current medications with the patient. * Vit-Fe Fumarate-FA ( VITAMIN) 27-0.8 MG tablet Take 1 tablet by mouth once daily * amoxicillin (AMOXIL) 875 MG tablet Take 875 mg by mouth 2 times daily * oxyCODONE-acetaminophen (PERCOCET) 5-325 MG tablet(Started 12/25/2018) Take 1 tablet by mouth every 6 hours as needed for Pain * ibuprofen (MOTRIN) 600 MG tablet(Started 12/25/2018) Take 1 tablet by mouth every 6 hours as needed for Pain 1 refill remaining * docusate sodium (COLACE) 100 MG capsule(Started 12/25/2018) Take 1 capsule by mouth 2 times daily 1 refill remaining * labetalol (NORMODYNE; TRANDATE) 200 MG tablet(Started 12/27/2018) Take 4 tablets by mouth every 12 hours 3 refills remaining * Wound Dressings (INTERDRY AG TEXTILE 10 X12') MISC(Started 01/05/2019) 1 Each by Apply externally route 2 times daily 1 refill remaining * meclizine (Antivert) 25 MG tablet(Started 12/28/2022) Take 1 (one) tablet by mouth 3 times daily as needed * topiramate (Topamax) 25 MG tablet(Started 06/09/2023) Take 1 (one) tablet by mouth once daily * benzonatate (Tessalon) 200 MG capsule(Started 09/11/2023) Take 1 (one) capsule by mouth 3 times daily as needed for cough * phentermine (Ionamine) 15 MG capsule(Started 06/16/2023) Take 1 (one) capsule by mouth once daily * methylPREDNISolone (Medrol Dosepak) 4 MG tablet(Started 09/11/2023) Take 1 (one) tablet by mouth as directed Active Problems Problem Noted Date Diagnosed Date Delivery by hysterectomy 12/22/2018 Placenta accreta affecting delivery 12/21/2018 Bilobed placenta 12/08/2018 Insulin controlled gestation al diabetes mellitus (GDM) in third trimester 12/05/2018 Maternal asthma complicating 9 Vaginal bleeding during 11/25/2018 Depressive disorder 08/01/2018 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 Gastroesophageal reflux disease 08/01/2018 Hyperhidrosis 08/01/2018 Tobacco abuse 11/09/2013 Preeclampsia 11/09/2013 Hypertension in , preeclampsia, deliver ed Previous delivery, antepartum condition or complication Previous delivery, antepartum Obesity affecting in third trimester Placenta previa with hemorrh age, delivered, current hospitalization 34 weeks gestation of Depression Gestational hypertension, antepartum Placenta previa in third trimester Resolved Problems Problem Noted Date Diagnosed Date Resolved Date Vaginal bleeding during , antepartum 11/04/19 19 12/09/2018 Abnormal O'Cartwright glucose challenge test, antepartum 09/27/2018 12/13/2018 Cellulitis 08/01/2018 12/05/2018 Child attention deficit disorder 08/01/2018 12/05/2018 Dysmenorrhea 08/01/2018 12/05/2018 Ganglion and cyst of synoviu m, tendon and bursa 08/01/2018 12/09/2018 Obesity 08/01/2018 08/01/2018 IUGR (intrauterine growth restriction) 11/15/2013 09/27/2018 Breech presentation 11/09/2013 08/31/19 19 Supervision of high risk pre gnancy, antepartum 11/09/2013 12/25/2018 Obesity (BMI 30-39.9) 2018 Screening, , for ma lformation by ultrasound 09/27/2018 Evaluate anatomy not seen on prior sonogram 12/05/2018 Vaginal bleeding in pregnanc y, second trimester 12/05/2018 Vaginal bleeding 12/07/2018 Vasa previa 12/12/2018 Vasa previa 12/22/2018 Immunizations * DTAP, HISTORIC VACCINE(Given 12/30/1998, 05/19/1995) * DTP HIB, HISTORIC VACCINE(Given 05/15/1994, 03/16/1994, 01/05/1994) * FLU, HISTORIC VACCINE(Given 03/04/2010) * HEP B, HISTORIC VACCINE(Given 02/28/1997, 1993, 1993) * HPV, HISTORIC VACCINE(Given 12/02/2007, 08/05/2007, 03/23/2007) * Hib,HISTORIC VACCINE(Given 02/10/1995) * INFLUENZA VACCINE, TRIV. (FLUZONE; FLULAVAL; FLUARIX; AFLURIA TRIVALENT; 6MO+), 0.5 ML (IIV3)(Given 05/27/2011) * MENINGOCOCAL MENINGITIS(Given 01/19/2009) * MMR, HISTORIC VACCINE(Given 12/30/1998, 02/10/1995) * POLIO IPV(Given 12/30/1998) * POLIO OPV(Given 05/19/1995, 03/16/1994, 01/05/1994) * TDAP (7yrs+)(Given 10/27/2018) * TDAP, HISTORIC VACCINE(Given 04/11/2007) Social History Tobacco Use Types Packs/Day Years Used Date Smoking Tobacco: Every Day Cigarettes Smokeless Tobacco: Never Tobacco Cessation:Ready to Q uit: Not Asked; Counseling Given: Not Answered Alcohol Use Standard Drinks/Week Comments No 0 (1 standard drink = 0.6 oz pur e alcohol) Sex and Gender Information Value Date Recorded Sex Assigned at Not on file Gender Identity Not on file Sexual Orientation Not on file Last Filed Vital Signs Vital Sign Reading Time Taken Comments Blood Pressure 138/87 04/09/2023 1:11 PM SOLAR ENERGY TECHNICIAN Pulse 97 04/09/2023 1:11 PM SOLAR ENERGY TECHNICIAN Temperature 36.8 ??C (98.2 ??F) 12/27/2018 8:00 AM CD T Respiratory Rate 16 12/27/2018 8:00 AM CDT Oxygen Saturation 99% 12/26/2018 10:55 PM CDT Inhaled Oxygen Concentration - - Weight 89.4 kg (197 lb) 04/09/2023 1:11 PM SOLAR ENERGY TECHNICIAN Height 157.5 cm (5' 2 ) 04/09/2023 1:11 PM SOLAR ENERGY TECHNICIAN Body Mass Index 36.03 04/09/2023 1:11 PM SOLAR ENERGY TECHNICIAN Procedures * UT REMOVE CERUMEN IMPACTED W INSTR RT EAR(Performed 04/09/2023) Performed for Impacted cerumen of right ear * AUDIOLOGY/TYMPANOMETRY ORDER(Performed 04/09/2023) * LAB RESULTS ORDER(Performed 12/28/2018) * EKG 12-LEAD(Performed 12/23/2018) Performed for Tachypnea * ECHOCARDIOGRAM 2D WITH DOPPLER(Performed 12/23/2018) Performed for Tachypnea * XR CHEST 2VW(Performed 12/23/2018) Performed for Tachypnea * COMPREHENSIVE METABOLIC PANEL(Performed 12/23/2018) * CBC W AUTO DIFFERENTIAL(Performed 12/23/2018) * CBC W AUTO DIFFERENTIAL(Performed 12/22/2018) * XR CHEST 1VW PORTABLE(Performed 12/22/2018) Performed for Pre-eclampsia in third trimester (HCC) * COMPREHENSIVE METABOLIC PANEL(Performed 12/22/2018) * MAGNESIUM BLOOD(Performed 12/22/2018) * CBC W AUTO DIFFERENTIAL(Performed 12/22/2018) * FIBRINOGEN ACTIVITY(Performed 12/22/2018) * PTT(Performed 12/22/2018) * PT-INR(Performed 12/22/2018) * GLUCOSE - POINT OF CARE(Performed 12/22/2018) * FIBRINOGEN ACTIVITY(Performed 12/21/2018) * PTT(Performed 12/21/2018) * PT-INR(Performed 12/21/2018) * PROTEIN CREATININE RATIO URINE RANDOM PNL(Performed 12/21/2018) * COMPREHENSIVE METABOLIC PANEL(Performed 12/21/2018) * CBC W AUTO DIFFERENTIAL(Performed 12/21/2018) * PATHOLOGY TISSUE EXAM (STL)(Performed 12/21/2018) Performed for Diagnosis unknown * PERIPHERAL IV NOTE(Performed 12/21/2018) * TRANSFUSE FRESH FROZEN PLASMA UNIT(S)(Performed 12/21/2018) * TRANSFUSE RED BLOOD CELL LEUKOREDUCED UNIT(S)(Performed 12/21/2018) * ENDOTRACHEAL TUBE NOTE(Performed 12/21/2018) * PREPARE PLATELET PHERESIS UNIT(S)(Performed 12/21/2018) * PREPARE FFP UNIT(S)(Performed 12/21/2018) * PREPARE RBC LEUKOREDUCED UNIT(Performed 12/21/2018) * PREPARE FFP UNIT(S)(Performed 12/21/2018) * PREPARE RBC LEUKOREDUCED UNIT(Performed 12/21/2018) * PREPARE RBC LEUKOREDUCED UNIT(Performed 12/21/2018) * NEURAXIAL BLOCK(Performed 12/21/2018) * UT TOTAL ABDOM HYSTERECTOMY(Performed 12/21/2018) * SECTION(Performed 12/21/2018) * COMPREHENSIVE METABOLIC PANEL(Performed 12/21/2018) * CBC W AUTO DIFFERENTIAL(Performed 12/21/2018) * GLUCOSE - POINT OF CARE(Performed 12/21/2018) * GLUCOSE - POINT OF CARE(Performed 12/20/2018) * GLUCOSE - POINT OF CARE(Performed 12/20/2018) * CBC W AUTO DIFFERENTIAL(Performed 12/20/2018) * GLUCOSE - POINT OF CARE(Performed 12/20/2018) * GLUCOSE - POINT OF CARE(Performed 12/20/2018) * GLUCOSE - POINT OF CARE(Performed 12/20/2018) * PREPARE RBC LEUKOREDUCED UNIT(Performed 12/20/2018) * TYPE + SCREEN PANEL(Performed 12/20/2018) * GLUCOSE - POINT OF CARE(Performed 12/20/2018) * GLUCOSE - POINT OF CARE(Performed 12/19/2018) * GLUCOSE - POINT OF CARE(Performed 12/19/2018) * GLUCOSE - POINT OF CARE(Performed 12/19/2018) * GLUCOSE - POINT OF CARE(Performed 12/19/2018) * GLUCOSE - POINT OF CARE(Performed 12/19/2018) * GLUCOSE - POINT OF CARE(Performed 12/18/2018) * NONSTRESS TEST(Performed 12/18/2018) * GLUCOSE - POINT OF CARE(Performed 12/18/2018) * GLUCOSE - POINT OF CARE(Performed 12/18/2018) * GLUCOSE - POINT OF CARE(Performed 12/18/2018) * GLUCOSE - POINT OF CARE(Performed 12/17/2018) * GLUCOSE - POINT OF CARE(Performed 12/17/2018) * NONSTRESS TEST(Performed 12/17/2018) * GLUCOSE - POINT OF CARE(Performed 12/17/2018) * GLUCOSE - POINT OF CARE(Performed 12/17/2018) * GLUCOSE - POINT OF CARE(Performed 12/17/2018) * TYPE + SCREEN PANEL(Performed 12/17/2018) * PREPARE RBC LEUKOREDUCED UNIT(Performed 12/17/2018) * GLUCOSE - POINT OF CARE(Performed 12/16/2018) * NONSTRESS TEST(Performed 12/16/2018) * GLUCOSE - POINT OF CARE(Performed 12/16/2018) * NONSTRESS TEST(Performed 12/16/2018) * GLUCOSE - POINT OF CARE(Performed 12/16/2018) * GLUCOSE - POINT OF CARE(Performed 12/16/2018) * GLUCOSE - POINT OF CARE(Performed 12/15/2018) * GLUCOSE - POINT OF CARE(Performed 12/15/2018) * NONSTRESS TEST(Performed 12/15/2018) * GLUCOSE - POINT OF CARE(Performed 12/15/2018) * GLUCOSE - POINT OF CARE(Performed 12/15/2018) * COMPREHENSIVE METABOLIC PANEL(Performed 12/15/2018) * CBC W/O DIFFERENTIAL(Performed 12/15/2018) * GLUCOSE - POINT OF CARE(Performed 12/14/2018) * GLUCOSE - POINT OF CARE(Performed 12/14/2018) * NONSTRESS TEST(Performed 12/14/2018) * GLUCOSE - POINT OF CARE(Performed 12/14/2018) * SONOGRAM - COMPLETE(Performed 12/14/2018) * GLUCOSE - POINT OF CARE(Performed 12/14/2018) * PREPARE RBC LEUKOREDUCED UNIT(Performed 12/14/2018) * TYPE + SCREEN PANEL(Performed 12/14/2018) * CBC W AUTO DIFFERENTIAL(Performed 12/14/2018) * GLUCOSE - POINT OF CARE(Performed 12/13/2018) * GLUCOSE - POINT OF CARE(Performed 12/13/2018) * NONSTRESS TEST(Performed 12/13/2018) * GLUCOSE - POINT OF CARE(Performed 12/13/2018) * GLUCOSE - POINT OF CARE(Performed 12/13/2018) * GLUCOSE - POINT OF CARE(Performed 12/12/2018) * NONSTRESS TEST(Performed 12/12/2018) * NONSTRESS TEST(Performed 12/12/2018) * GLUCOSE - POINT OF CARE(Performed 12/12/2018) * NONSTRESS TEST(Performed 12/12/2018) * NONSTRESS TEST(Performed 12/12/2018) * GLUCOSE - POINT OF CARE(Performed 12/12/2018) * GLUCOSE - POINT OF CARE(Performed 12/12/2018) * GLUCOSE - POINT OF CARE(Performed 12/11/2018) * NONSTRESS TEST(Performed 12/11/2018) * GLUCOSE - POINT OF CARE(Performed 12/11/2018) * EKG 12-LEAD(Performed 12/11/2018) Performed for Chest pain, unspecified type * GLUCOSE - POINT OF CARE(Performed 12/11/2018) * COMPREHENSIVE METABOLIC PANEL(Performed 12/11/2018) * GLUCOSE - POINT OF CARE(Performed 12/11/2018) * GLUCOSE - POINT OF CARE(Performed 12/11/2018) * TYPE + SCREEN PANEL(Performed 12/11/2018) * CBC W AUTO DIFFERENTIAL(Performed 12/11/2018) * PREPARE RBC LEUKOREDUCED UNIT(Performed 12/10/2018) * GLUCOSE - POINT OF CARE(Performed 12/10/2018) * GLUCOSE - POINT OF CARE(Performed 12/10/2018) * GLUCOSE - POINT OF CARE(Performed 12/10/2018) * GLUCOSE - POINT OF CARE(Performed 12/10/2018) * GLUCOSE - POINT OF CARE(Performed 12/10/2018) * GLUCOSE - POINT OF CARE(Performed 12/09/2018) * GLUCOSE - POINT OF CARE(Performed 12/09/2018) * GLUCOSE - POINT OF CARE(Performed 12/09/2018) * GLUCOSE - POINT OF CARE(Performed 12/09/2018) * GLUCOSE - POINT OF CARE(Performed 12/08/2018) * GLUCOSE - POINT OF CARE(Performed 12/08/2018) * URINE MICROSCOPIC ONLY REFLEX TO CULTURE(Performed 12/08/2018) Performed for Gestational hypertension, antepartum ([facility]) * PROTEIN CREATININE RATIO URINE RANDOM PNL(Performed 12/08/2018) Performed for Gestational hypertension, antepartum ([facility]) * URINALYSIS REFLEX MICROSCOPIC REFLEX CULTURE(Performed 12/08/2018) Performed for Gestational hypertension, antepartum ([facility]) * GLUCOSE - POINT OF CARE(Performed 12/08/2018) * PREPARE RBC LEUKOREDUCED UNIT(Performed 12/08/2018) * TYPE + SCREEN PANEL(Performed 12/08/2018) * CBC W AUTO DIFFERENTIAL(Performed 12/08/2018) * COMPREHENSIVE METABOLIC PANEL(Performed 12/08/2018) * GLUCOSE - POINT OF CARE(Performed 12/08/2018) * GLUCOSE - POINT OF CARE(Performed 12/07/2018) * GLUCOSE - POINT OF CARE(Performed 12/07/2018) * GLUCOSE - POINT OF CARE(Performed 12/07/2018) * SONOGRAM - TRANSVAGINAL(Performed 12/07/2018) * GLUCOSE - POINT OF CARE(Performed 12/07/2018) * GLUCOSE - POINT OF CARE(Performed 12/07/2018) * NONSTRESS TEST(Performed 12/06/2018) * GLUCOSE - POINT OF CARE(Performed 12/06/2018) * GLUCOSE - POINT OF CARE(Performed 12/06/2018) * GLUCOSE - POINT OF CARE(Performed 12/06/2018) * URINE MICROSCOPIC ONLY REFLEX TO CULTURE(Performed 12/06/2018) * URINALYSIS REFLEX MICROSCOPIC REFLEX CULTURE(Performed 12/06/2018) * COMPREHENSIVE METABOLIC PANEL(Performed 12/06/2018) * CBC W AUTO DIFFERENTIAL(Performed 12/06/2018) * PROTEIN CREATININE RATIO URINE RANDOM PNL(Performed 12/06/2018) * CULTURE URINE(Performed 12/06/2018) * GLUCOSE - POINT OF CARE(Performed 12/06/2018) * GLUCOSE - POINT OF CARE(Performed 12/06/2018) * NONSTRESS TEST(Performed 12/05/2018) * GLUCOSE - POINT OF CARE(Performed 12/05/2018) * GLUCOSE - POINT OF CARE(Performed 12/05/2018) * SONOGRAM - LIMITED(Performed 12/05/2018) * GLUCOSE - POINT OF CARE(Performed 12/05/2018) * TYPE + SCREEN PANEL(Performed 12/05/2018) * CBC W AUTO DIFFERENTIAL(Performed 12/05/2018) * PREPARE RBC LEUKOREDUCED UNIT(Performed 12/05/2018) * GLUCOSE - POINT OF CARE(Performed 12/04/2018) * GLUCOSE - POINT OF CARE(Performed 12/04/2018) * GLUCOSE - POINT OF CARE(Performed 12/04/2018) * NONSTRESS TEST(Performed 12/04/2018) * NONSTRESS TEST(Performed 12/04/2018) * NONSTRESS TEST(Performed 12/04/2018) * NONSTRESS TEST(Performed 12/04/2018) * NONSTRESS TEST(Performed 12/04/2018) * NONSTRESS TEST(Performed 12/04/2018) * GLUCOSE - POINT OF CARE(Performed 12/04/2018) * GLUCOSE - POINT OF CARE(Performed 12/03/2018) * GLUCOSE - POINT OF CARE(Performed 12/03/2018) * GLUCOSE - POINT OF CARE(Performed 12/03/2018) * GLUCOSE - POINT OF CARE(Performed 12/03/2018) * GLUCOSE - POINT OF CARE(Performed 12/02/2018) * GLUCOSE - POINT OF CARE(Performed 12/02/2018) * NONSTRESS TEST(Performed 12/02/2018) * GLUCOSE - POINT OF CARE(Performed 12/02/2018) * GLUCOSE - POINT OF CARE(Performed 12/02/2018) * GLUCOSE - POINT OF CARE(Performed 12/01/2018) * GLUCOSE - POINT OF CARE(Performed 12/01/2018) * GLUCOSE - POINT OF CARE(Performed 12/01/2018) * PREPARE RBC LEUKOREDUCED UNIT(Performed 12/01/2018) * TYPE + SCREEN PANEL(Performed 12/01/2018) * CBC W AUTO DIFFERENTIAL(Performed 12/01/2018) * GLUCOSE - POINT OF CARE(Performed 12/01/2018) * GLUCOSE - POINT OF CARE(Performed 11/30/2018) * GLUCOSE - POINT OF CARE(Performed 11/30/2018) * GLUCOSE - POINT OF CARE(Performed 11/30/2018) * GLUCOSE - POINT OF CARE(Performed 11/30/2018) * NONSTRESS TEST(Performed 11/29/2018) * NONSTRESS TEST(Performed 11/29/2018) * NONSTRESS TEST(Performed 11/29/2018) * GLUCOSE - POINT OF CARE(Performed 11/29/2018) * GLUCOSE - POINT OF CARE(Performed 11/29/2018) * GLUCOSE - POINT OF CARE(Performed 11/29/2018) * GLUCOSE - POINT OF CARE(Performed 11/29/2018) * NONSTRESS TEST(Performed 11/28/2018) * GLUCOSE - POINT OF CARE(Performed 11/28/2018) * PROTEIN CREATININE RATIO URINE RANDOM PNL(Performed 11/28/2018) * GLUCOSE - POINT OF CARE(Performed 11/28/2018) * GLUCOSE - POINT OF CARE(Performed 11/28/2018) * URINE MICROSCOPIC ONLY REFLEX TO CULTURE(Performed 11/28/2018) * URINALYSIS REFLEX MICROSCOPIC REFLEX CULTURE(Performed 11/28/2018) * CULTURE URINE(Performed 11/28/2018) * PREPARE RBC LEUKOREDUCED UNIT(Performed 11/28/2018) * GLUCOSE - POINT OF CARE(Performed 11/28/2018) * BLOOD TYPE VERIFICATION(Performed 11/28/2018) * DIFFERENTIAL MANUAL(Performed 11/28/2018) * COMPREHENSIVE METABOLIC PANEL(Performed 11/28/2018) * CBC W AUTO DIFFERENTIAL(Performed 11/28/2018) * GLUCOSE - POINT OF CARE(Performed 11/27/2018) * GLUCOSE - POINT OF CARE(Performed 11/27/2018) * GLUCOSE - POINT OF CARE(Performed 11/27/2018) * NONSTRESS TEST(Performed 11/27/2018) * NONSTRESS TEST(Performed 11/27/2018) * NONSTRESS TEST(Performed 11/27/2018) * NONSTRESS TEST(Performed 11/27/2018) * GLUCOSE - POINT OF CARE(Performed 11/27/2018) * GLUCOSE - POINT OF CARE(Performed 11/26/2018) * GLUCOSE - POINT OF CARE(Performed 11/26/2018) * GLUCOSE - POINT OF CARE(Performed 11/26/2018) * GLUCOSE - POINT OF CARE(Performed 11/26/2018) * GLUCOSE - POINT OF CARE(Performed 11/26/2018) * GLUCOSE - POINT OF CARE(Performed 11/25/2018) * GLUCOSE - POINT OF CARE(Performed 11/25/2018) * PREPARE RBC LEUKOREDUCED UNIT(Performed 11/25/2018) * URINE MICROSCOPIC ONLY REFLEX TO CULTURE(Performed 11/25/2018) Performed for Vaginal bleeding * URINALYSIS REFLEX MICROSCOPIC REFLEX CULTURE(Performed 11/25/2018) Performed for Vaginal bleeding * CULTURE URINE(Performed 11/25/2018) Performed for Vaginal bleeding * TYPE + SCREEN PANEL(Performed 11/25/2018) * CBC W AUTO DIFFERENTIAL(Performed 11/25/2018) Performed for Vaginal bleeding * SONOGRAM - COMPLETE(Performed 11/24/2018) Performed for Supervision of high risk , antepartum (HCC) * IMAGING/RADIOLOGY/XRAY RESULTS ORDER(Performed 11/07/2018) * NON-STRESS TEST(Performed 11/05/2018) * NON-STRESS TEST(Performed 11/04/2018) * CBC W AUTO DIFFERENTIAL(Performed 11/04/2018) Performed for Vaginal bleeding during , antepartum ([facility]) * PREPARE RBC LEUKOREDUCED UNIT(Performed 11/03/2018) * ANTIBODY SCREEN(Performed 11/03/2018) Performed for Vaginal bleeding during , antepartum ([facility]) * TYPE + SCREEN PANEL(Performed 11/03/2018) Performed for Vaginal bleeding during , antepartum ([facility]) * CBC W AUTO DIFFERENTIAL(Performed 11/03/2018) Performed for Vaginal bleeding during , antepartum ([facility]) * CHLAMYDIA + GC AMPLIFIED PROBE(Performed 11/03/2018) Performed for Supervision of high risk , antepartum ([facility]) * TRICHOMONAS RAPID TEST(Performed 11/03/2018) Performed for Supervision of high risk , antepartum ([facility]) * URINE MICROSCOPIC ONLY REFLEX TO CULTURE(Performed 10/27/2018) Performed for Supervision of high risk , antepartum ([facility]) * SYPHILIS ANTIBODY CASCADING REFLEX(Performed 10/27/2018) Performed for Supervision of high risk , antepartum ([facility]) * HIV-1 HIV-2 ANTIBODY + HIV P24 AG PANEL(Performed 10/27/2018) Performed for Supervision of high risk , antepartum ([facility]) * URINALYSIS REFLEX MICROSCOPIC REFLEX CULTURE(Performed 10/27/2018) Performed for Supervision of high risk , antepartum ([facility]) * CBC W AUTO DIFFERENTIAL(Performed 10/27/2018) Performed for Supervision of high risk , antepartum ([facility]) * CULTURE URINE(Performed 10/27/2018) Performed for Supervision of high risk , antepartum ([facility]) * GLUCOSE PROTEIN KETONE URINE - POINT OF CAR(Performed 10/27/2018) Performed for Supervision of high risk , antepartum ([facility]) * SONOGRAM - COMPLETE(Performed 10/17/2018) * GTT 3 HR (100G) GESTATIONAL DIAGNOSTIC(Performed 10/06/2018) Performed for , unspecified gestational age ([facility]) * GLUCOSE PROTEIN KETONE URINE - POINT OF CAR(Performed 10/06/2018) Performed for , unspecified gestational age ([facility]) * IMAGING/RADIOLOGY/XRAY RESULTS ORDER(Performed 09/28/2018) * GLUCOSE PROTEIN KETONE URINE - POINT OF CAR(Performed 09/27/2018) Performed for 23 weeks gestation of ([facility]) * GLUCOSE - POINT OF CARE(Performed 09/26/2018) * GLUCOSE - POINT OF CARE(Performed 09/26/2018) * SONOGRAM - COMPLETE(Performed 09/26/2018) * GLUCOSE - POINT OF CARE(Performed 09/26/2018) * PREPARE RBC LEUKOREDUCED UNIT(Performed 09/25/2018) * GLUCOSE - POINT OF CARE(Performed 09/25/2018) * GLUCOSE CHALLENGE(Performed 09/25/2018) * URINALYSIS - POCT (IP) NOTIFICATION(Performed 09/25/2018) Performed for Placenta previa without hemorrhage, antepartum (HCC) * TYPE + SCREEN PANEL(Performed 09/25/2018) Performed for Placenta previa without hemorrhage, antepartum (HCC), Vaginal bleeding in , second trimester (HCC) * CBC W AUTO DIFFERENTIAL(Performed 09/25/2018) Performed for Placenta previa without hemorrhage, antepartum (HCC), Vaginal bleeding in , second trimester (HCC) * SONOGRAM - COMPLETE(Performed 08/30/2018) * GLUCOSE PROTEIN KETONE URINE - POINT OF CAR(Performed 08/01/2018) Performed for , unspecified gestational age (HCC) * SONOGRAM - COMPLETE(Performed 08/01/2018) * ANEUPLOIDY SCREENING(Performed 08/01/2018) * STREP A SCREEN - POINT OF CARE (AMB) STL(Performed 10/14/2016) Performed for Strep throat * IMAGING/RADIOLOGY/XRAY RESULTS ORDER(Performed 09/06/2014) * LAB RESULTS ORDER(Performed 11/22/2013) * CBC W AUTO DIFFERENTIAL(Performed 11/18/2013) * SECTION(Performed 11/17/2013) * PATHOLOGY TISSUE EXAM (STL)(Performed 11/17/2013) * BLOOD GASES CORD ART (ISTAT)(Performed 11/17/2013) * NEURAXIAL BLOCK(Performed 11/17/2013) * TYPE + SCREEN PANEL(Performed 11/17/2013) * CBC W AUTO DIFFERENTIAL(Performed 11/17/2013) * CBC W AUTO DIFFERENTIAL(Performed 11/15/2013) * COMPREHENSIVE METABOLIC PANEL(Performed 11/15/2013) * FIBRINOGEN ACTIVITY(Performed 11/14/2013) * PT PTT PANEL(Performed 11/14/2013) * TYPE + SCREEN PANEL(Performed 11/14/2013) * CBC W AUTO DIFFERENTIAL(Performed 11/14/2013) * CULTURE URINE(Performed 11/13/2013) * TYPE + SCREEN PANEL(Performed 11/12/2013) * COMPREHENSIVE METABOLIC PANEL(Performed 11/12/2013) * CBC W AUTO DIFFERENTIAL(Performed 11/12/2013) * URINALYSIS REFLEX MICROSCOPIC REFLEX CULTURE(Performed 11/10/2013) * SONOGRAM - COMPLETE(Performed 11/09/2013) * CHLAMYDIA + GC AMPLIFIED PROBE(Performed 11/09/2013) * CULTURE STREP B(Performed 11/08/2013) Performed for Preeclampsia, third trimester (HCC) * BLOOD TYPE VERIFICATION(Performed 11/08/2013) * TYPE + SCREEN PANEL(Performed 11/08/2013) Performed for Elevated BP * PROTEIN CREATININE RATIO URINE RANDOM PNL(Performed 11/08/2013) Performed for Elevated BP * URINALYSIS REFLEX MICROSCOPIC REFLEX CULTURE(Performed 11/08/2013) Performed for Elevated BP * LDH BLOOD(Performed 11/08/2013) Performed for Elevated BP * URIC ACID BLOOD(Performed 11/08/2013) Performed for Elevated BP * COMPREHENSIVE METABOLIC PANEL(Performed 11/08/2013) Performed for Elevated BP * CBC W AUTO DIFFERENTIAL(Performed 11/08/2013) Performed for Elevated BP * CULTURE URINE(Performed 11/08/2013) Performed for Elevated BP * MRI BRAIN WWO CONTRAST(Performed 03/12/2011) Performed for Paresthesia Results * UT REMOVE CERUMEN IMPACTED W INSTR RT EAR (04/09/2023 1:48 PM SOLAR ENERGY TECHNICIAN) Narrative Darion Wilcox APRN-CNP - 04/09/2023 1:48 PM SOLAR ENERGY TECHNICIAN Darion Wilcox APRN-CNP ? 04/09/2023 ??1:55 PM Due to the findings on physical examination, in correlation with the patient's symptomatology, the decision was made to perform a procedure today in clinic. Consent obtained prior to starting procedure. Procedure note: Pre Op Dx: Impacted cerumen, right Post Op: same Procedure: Cerumen removal, right with microscope and instrumentation Clinician: MOY Wilcox After consent was obtained, the microscope was introduced and an miguel ángel speculum of appropriate size was placed. Using a combination of a wax curette and micro-suction, the cerumen was carefully removed under direct visualization. I (Darion Wilcox NP), was present for the entire procedure and can verify that the patient tolerated the procedure well. Darion JOSHI PROCEDURE/ MINOR SURGICAL ORDERABLES * AUDIOLOGY/TYMPANOMETRY ORDER (04/09/2023 12:53 PM SOLAR ENERGY TECHNICIAN) Narrative Fantasma Cervantes, PhD - 04/09/2023 1:08 PM SOLAR ENERGY TECHNICIAN HISTORY: Cait Mathews is a 27 year [...] or PCP PRN. Fantasma Cervantes, Ph.D., CHARLENE., [facility] [employer] Director, Division of Audiology Department of Otolaryngology- Head & Neck Surgery [facility] Fantasma Cervantes PhD AUDIOLOGY SERVICES O RDERABLES * LAB RESULTS ORDER (12/28/2018 10:22 PM CDT) Only the most recent of2 resultswithin the time period is included. Narrative 12/28/2018 10:22 PM CDT Ordered by an unspecified provider. Scanned Document LAB - THERAPEUTIC DR MCELROY MONITORING ORDERABLES * EKG 12-LEAD (12/23/2018 10:47 AM CDT) Only the most recent of2 resultswithin the time period is included. Ventricular Rate 72 BPM [facility] Atrial Rate 72 BPM [facility] P-R Interval 190 ms [facility] QRS Duration ms 78 ms [facility] Q-T Interval ms 374 ms [facility] QTC Calculation (Bezet) 409 ms [facility] Calculated P [place] 37 degrees [facility] Calculated R [place] 3 degrees [facility] Calculated T [place] 27 degrees [facility] Interpretation EKG NORMAL SINUS RHYTHM NORMAL ECG NO PREVIOUS ECGS AVAILABLE Confirmed by Kathryn Power ([id number]) on 12/23/2018 4:38:50 PM [facility] 12/23/2018 10:4 7 AM CDT 12/23/2018 4:38 PM CDT Kelley Rocha MD ECG ORDERABLES [facility] * ECHOCARDIOGRAM 2D WITH DOPPLER (12/23/2018 8:38 AM CDT) 12/23/2018 8:38 AM CDT Narrative [facility] - 12/23/2018 12:20 PM CDT [address] [address] Transthoracic Echocardiogram 2D, M-mode, Doppler, and Color Doppler Patient: CAIT MATHEWS MR number: [id number] Height: 60 in Weight: 208.6 lb BSA: 1.9 m?? Study date: 23-Dec-2018 : 1995 Age: 23 years Gender: Female Race: Mirror Machine Feeder: ??Ada Steel RDCS Referring Physician: ??Cheryl Sumner MD Reading Physician: ??Jarod Everett MD Summary: - ??Clinical question: - ??Tachypnea. - ??History: - ??Tobacco use. - ??Left ventricle: - ??Systolic function was normal. Ejection fraction was estimated in the range of 60 % to 65 %. - ??There were no regional wall motion abnormalities. - ??Wall thickness was normal. - ??Mitral valve: - ??There was mild regurgitation. - ??Pulmonic valve: - ??There was mild regurgitation. Indications: Tachypnea. History: Prior history: Tobacco use. Procedure: The procedure was performed in the echo lab. This was a routine study. The transthoracic approach was used. The study included complete 2D imaging, M-mode, complete spectral Doppler, and color Doppler. Systolic blood pressure was 127 mmHg. Diastolic blood pressure was 71 mmHg. Images were obtained from the parasternal, apical, and subcostal acoustic windows. Left ventricle: Size was normal. Systolic function was normal. Ejection fraction was estimated in the range of 60 % to 65 %. There were no regional wall motion abnormalities. Wall thickness was normal. Aortic valve: The valve was trileaflet. Leaflets exhibited normal thickness and normal cuspal separation. Doppler: There was no stenosis. There was no regurgitation. Aorta: The root exhibited normal size. Mitral valve: Valve structure was normal. There was normal leaflet separation. Doppler: The transmitral velocity was within the normal range. There was no evidence for stenosis. There was mild regurgitation. Left atrium: Size was normal. Right ventricle: The size was normal. Systolic function was normal. Wall thickness was normal. Pulmonic valve: Leaflets exhibited normal thickness, no calcification, and normal cuspal separation. Doppler: There was mild regurgitation. Pulmonary artery: The size was normal. Doppler: Systolic pressure was within the normal range. Tricuspid valve: The valve structure was normal. There was normal leaflet separation. Doppler: The transtricuspid velocity was within the normal range. There was no evidence for tricuspid stenosis. There was trivial regurgitation. Right atrium: Size was normal. Systemic veins: IVC: The inferior vena cava was normal in size and course. Respirophasic changes were normal. Pericardium: The pericardium was normal in appearance. Measurement tables Other echo measurements (Reference normals) Estimated CVP ?? 3 mmHg ?? (--) System measurement tables 2D Ao Diam: 2.6 cm LVOT Diam: 2.2 cm LA Diam: 3.3 cm LAEDV Index (A-L): 26.3 ml/m2 LAEDV(A-L): 49.9 ml IVSd: 0.9 cm LVIDd: 4.6 cm LVIDs: 3 cm LVPWd: 1 cm CW AV VTI: 28.4 cm AV Vmax: 1.3 m/s AV Vmean: 0.9 m/s AV maxP.7 mmHg AV meanP.6 mmHg TR Vmax: 1.2 m/s MM TAPSE: 2.3 cm PW GERARDO (VTI): 3.1 cm2 GERARDO Vmax: 3.1 cm2 LVOT VTI: 23 cm LVOT Vmax: 1.1 m/s LVOT Vmean: 0.7 m/s LVOT maxP.5 mmHg LVOT meanP.2 mmHg MV E/A Ratio: 2 Prepared and signed by Jarod Everett MD Signed 23-Dec-2018 12:19:29 Procedure Note 12/26/2018 [place] [id number] Transthoracic Echocardiogram 2D, M-mode, Doppler, and Color Doppler Patient: CAIT MATHEWS MR number: [id number] Height: 60 in Weight: 208.6 lb BSA: 1.9 m?? Study date: 23-Dec-2018 : 1995 Age: 23 years Gender: Female Race: Mirror Machine Feeder: Ada Steel RDCS Referring Physician: Cheryl Sumner MD Reading Physician: Jarod Everett MD Summary: - Clinical question: - Tachypnea. - History: - Tobacco use. - Left ventricle: - Systolic function was normal. Ejection fraction was estimated in the range of 60 % to 65 %. - There were no regional wall motion abnormalities. - Wall thickness was normal. - Mitral valve: - There was mild regurgitation. - Pulmonic valve: - There was mild regurgitation. Indications: Tachypnea. History: Prior history: Tobacco use. Procedure: The procedure was performed in the echo lab. This was a routine study. The transthoracic approach was used. The study included complete 2D imaging, M-mode, complete spectral Doppler, and color Doppler. Systolic blood pressure was 127 mmHg. Diastolic blood pressure was 71 mmHg. Images were obtained from the parasternal, apical, and subcostal acoustic windows. Left ventricle: Size was normal. Systolic function was normal. Ejection fraction was estimated in the range of 60 % to 65 %. There were no regional wall motion abnormalities. Wall thickness was normal. Aortic valve: The valve was trileaflet. Leaflets exhibited normal thickness and normal cuspal separation. Doppler: There was no stenosis. There was no regurgitation. Aorta: The root exhibited normal size. Mitral valve: Valve structure was normal. There was normal leaflet separation. Doppler: The transmitral velocity was within the normal range. There was no evidence for stenosis. There was mild regurgitation. Left atrium: Size was normal. Right ventricle: The size was normal. Systolic function was normal. Wall thickness was normal. Pulmonic valve: Leaflets exhibited normal thickness, no calcification, and normal cuspal separation. Doppler: There was mild regurgitation. Pulmonary artery: The size was normal. Doppler: Systolic pressure was within the normal range. Tricuspid valve: The valve structure was normal. There was normal leaflet separation. Doppler: The transtricuspid velocity was within the normal range. There was no evidence for tricuspid stenosis. There was trivial regurgitation. Right atrium: Size was normal. Systemic veins: IVC: The inferior vena cava was normal in size and course. Respirophasic changes were normal. Pericardium: The pericardium was normal in appearance. Measurement tables Other echo measurements (Reference normals) Estimated CVP 3 mmHg (--) System measurement tables 2D Ao Diam: 2.6 cm LVOT Diam: 2.2 cm LA Diam: 3.3 cm LAEDV Index (A-L): 26.3 ml/m2 LAEDV(A-L): 49.9 ml IVSd: 0.9 cm LVIDd: 4.6 cm LVIDs: 3 cm LVPWd: 1 cm CW AV VTI: 28.4 cm AV Vmax: 1.3 m/s AV Vmean: 0.9 m/s AV maxP.7 mmHg AV meanP.6 mmHg TR Vmax: 1.2 m/s MM TAPSE: 2.3 cm PW GERARDO (VTI): 3.1 cm2 GERARDO Vmax: 3.1 cm2 LVOT VTI: 23 cm LVOT Vmax: 1.1 m/s LVOT Vmean: 0.7 m/s LVOT maxP.5 mmHg LVOT meanP.2 mmHg MV E/A Ratio: 2 Prepared and signed by Jarod Everett MD Signed 23-Dec-2018 12:19:29 Kelley Rocha MD ECHO ORDERABLES [facility] [address] [place] [address] * XR CHEST 2VW (12/23/2018 8:34 AM CDT) Anatomical Region Laterality Modality Chest Radio Fluoroscop y 12/23/2018 8:36 AM CDT Impressions 12/23/2018 9:18 AM CDT Clear lungs. Edited by Lakeshia Adkins on 12/23/2018 8:51 AM Reading Radiologist: Jimmy Mcnair MD on 12/23/2018 at 9:18 AM Narrative 12/23/2018 9:18 AM CDT CHEST X-RAY 2 VIEWS. HISTORY: Tachypnea. Two views of the chest show cardiomegaly with normal vessels. Lungs are clear. Procedure Note Jimmy Mcnair MD - 12/23/2018 CHEST X-RAY 2 VIEWS. HISTORY: Tachypnea. Two views of the chest show cardiomegaly with normal vessels. Lungs are clear. IMPRESSION Clear lungs. Edited by Lakeshia Adkins on 12/23/2018 8:51 AM Reading Radiologist: Jimmy Mcnair MD on 12/23/2018 at 9:18 AM Kelley Rocha MD DIAGNOSTIC IMAGING O RDERABLES * (ABNORMAL) CBC W AUTO DIFFERENTIAL (12/23/2018 7:07 AM CDT) Only the most recent of24 resultswithin the time period is included. WBC 9.7 4.4 - 10.7 x10E9/L 12/23/2018 7:31 AM CDT [facility] WBC Corrected 12/23/2018 7:31 AM CDT [facility] RBC 3.29(L) 3.80 - 5.20 x10E12/L 12/23/2018 7:31 AM CDT [facility] Hemoglobin 9.6(L) 12.0 - 15.6 gm/dL 12/23/2018 7:31 AM CDT [facility] Hematocrit 30.7(L) 35.9 - 45.5 % 12/23/2018 7:31 AM CDT [facility] MCV 93.3 80.7 - 98.3 fl 12/23/2018 7:31 AM CDT [facility] MCH 29.2 26.7 - 34.0 pg 12/23/2018 7:31 AM CDT [facility] MCHC 31.3 30.8 - 35.9 gm/dL 12/23/2018 7:31 AM CDT [facility] Platelet Count 195 153 - 416 x10E9/L 12/23/2018 7:31 AM [facility] RDW-CV 15.0(H) 12.1 - 14.9 % 12/23/2018 7:31 AM [facility] MPV 11.0 9.4 - 12.9 fl 12/23/2018 7:31 AM [facility] Neutrophils % 76.6(H) 44.0 - 73.0 % 12/23/2018 7:31 AM [facility] Lymphocytes % 14.9(L) 20.0 - 43.0 % 12/23/2018 7:31 AM [facility] Monocytes % 7.0 5.0 - 13.0 % 12/23/2018 7:31 AM [facility] Eosinophils % 0.3 0.0 - 6.0 % 12/23/2018 7:31 AM [facility] Basophils % 0.2 0.0 - 2.0 % 12/23/2018 7:31 AM [facility] Immature Granulocytes 1.0 0 - 1 % 12/23/2018 7:31 AM [facility] Neutrophil Absolute 7.44(H) 2.01 - 7.14 x10E9/L 12/23/2018 7:31 AM [facility] Lymphocytes Absolute 1.45 1.07 - 3.94 x10E9/L 12/23/2018 7:31 AM [facility] Monocytes Absolute 0.68 0.26 - 1.07 x10E9/L 12/23/2018 7:31 AM [facility] Eosinophils Absolute 0.03 0 - 0.47 x10E9/L 12/23/2018 7:31 AM [facility] Basophils Absolute 0.02 0 - 0.08 x10E9/L 12/23/2018 7:31 AM [facility] Immature Granulocytes Absolute 0.10(H) 0.00 - 0.06 x10E9/L 12/23/2018 7:31 AM [facility] nRBC Auto 0 /100 WBC 12/23/2018 7:31 AM [facility] Blood BLOOD SPECIMEN / Unknown Lab Venipuncture / Unknown 12/23/2018 7:07 AM CDT 12/23/2018 7:22 AM CDT Kelley Rocha MD LAB - HEMATOLOGY ORD ERABLES [facility] [address] [place] [address] * (ABNORMAL) COMPREHENSIVE METABOLIC PANEL (12/23/2018 7:07 AM CDT) Only the most recent of12 resultswithin the time period is included. [facility] Glucose 105 74 - 106 mg/dL 12/23/2018 7:49 AM CDT [facility] Sodium 139 136 - 145 mmol/L 12/23/2018 7:49 AM CDT [facility] Potassium 3.9 3.5 - 5.1 mmol/L 12/23/2018 7:49 AM CDT [facility] Chloride 107 98 - 107 mmol/L 12/23/2018 7:49 AM CDT [facility] CO2 24 23 - 31 mmol/L 12/23/2018 7:49 AM CDT [facility] Calcium 8.7 8.4 - 10.2 mg/dL 12/23/2018 7:49 AM CDT [facility] Anion Gap 8 8 - 16 mmol/L 12/23/2018 7:49 AM CDT [facility] BUN 5(L) 7 - 18.7 mg/dL 12/23/2018 7:49 AM CDT [facility] Creatinine 0.50(L) 0.55 - 1.02 mg/dL 12/23/2018 7:49 AM CDT [facility] Alkaline Phosphatase 113 40 - 150 U/L 12/23/2018 7:49 AM CDT [facility] ALT 12(L) 13 - 61 U/L 12/23/2018 7:49 AM CDT [facility] AST 15 5 - 34 U/L 12/23/2018 7:49 AM CDT [facility] Protein Total 5.2(L) 6.4 - 8.3 gm/dL 12/23/2018 7:49 AM CDT [facility] Albumin 2.6(L) 3.5 - 5.2 gm/dL 12/23/2018 7:49 AM CDT [facility] Bilirubin Total 0.3 0.2 - 1.0 mg/dL 12/23/2018 7:49 AM CDT [facility] eGFR by MDRD >60 >60 mL/min/1.7 3m2 12/23/2018 7:49 AM CDT [facility] eGFR by MDRD >60 >60 mL/min/1.7 3m2 12/23/2018 7:49 AM CDT [facility] Blood BLOOD SPECIMEN / Unknown Lab Venipuncture / Unknown 12/23/2018 7:07 AM CDT 12/23/2018 7:22 AM CDT Kelley Rocha MD LAB - CHEMISTRY SU [facility] Organization Address City/State/ZIP Co de Phone Number [facility] [address] [place] [address] * XR CHEST 1VW PORTABLE (12/22/2018 8:03 AM CDT) Anatomical Region Laterality Modality Chest Radiographic Antonette ging 12/22/2018 8:19 AM CDT Impressions 12/22/2018 8:19 AM CDT Question small infiltrate at the left base. Reading Radiologist: Jimmy Mcnair MD on 12/22/2018 at 8:19 AM Narrative 12/22/2018 8:19 AM CDT Chest x-ray single view. HISTORY: Postop. A single view of the chest shows cardiomegaly with normal vessels. There may be a small infiltrate at the left base. Right lung is clear. Procedure Note Jimmy Mcnair MD - 12/22/2018 Chest x-ray single view. HISTORY: Postop. A single view of the chest shows cardiomegaly with normal vessels. There may be a small infiltrate at the left base. Right lung is clear. IMPRESSION Question small infiltrate at the left base. Reading Radiologist: Jimmy Mcnair MD on 12/22/2018 at 8:19 AM Sarah Chatman MD DIAGNOSTIC IMAGING O RDERABLES * (ABNORMAL) FIBRINOGEN ACTIVITY (12/22/2018 7:29 AM CDT) Only the most recent of3 resultswithin the time period is included. Fibrinogen 620(H) 200 - 400 mg/dL 12/22/2018 8:05 AM CDT [facility] Blood BLOOD SPECIMEN / Unknown Lab Venipuncture / Unknown 12/22/2018 7:29 AM CDT 12/22/2018 7:43 AM CDT Edilma Nguyen MD LAB - COAGULATION OR DERABLES Performing Organization Address [facility] Co de Phone Number [facility] [address] [place] [phone] * PTT (12/22/2018 7:29 AM CDT) Only the most recent of2 resultswithin the time period is included. PTT 21.3 21.0 - 32.0 sec 12/22/2018 8:01 AM CDT [facility] Blood BLOOD SPECIMEN / Unknown Lab Venipuncture / Unknown 12/22/2018 7:29 AM CDT 12/22/2018 7:43 AM CDT Narrative [facility] - 12/22/2018 8:01 AM CDT Heparin Therapeutic Range for PTT: 50.5 - 74.3 seconds. Edilma Nguyen MD LAB - COAGULATION OR DERABLES Performing Organization Address [facility] de Phone Number [facility] [address] [place] [phone] * (ABNORMAL) PT-INR (12/22/2018 7:29 AM CDT) Only the most recent of2 resultswithin the time period is included. PT <9.5(L) 9.5 - 11.6 sec 12/22/2018 8:05 AM CDT [facility] INR <0.9(L) 0.9 - 1.1 12/22/2018 8:05 AM CDT [facility] Blood BLOOD SPECIMEN / Unknown Lab Venipuncture / Unknown 12/22/2018 7:29 AM CDT 12/22/2018 7:43 AM CDT Narrative [facility] - 12/22/2018 8:05 AM CDT Conventional Warfarin Anticoagulant Therapy: INR Reference Range: ??2.0-3.0 Intensive Warfarin Anticoagulant Therapy: INR Reference Range: ? 2.5-3.5 Edilma Nguyen MD LAB - COAGULATION OR DERABLES Performing Organization Address [facility]/ZIP Co de Phone Number [facility] [address] [place] [phone] * (ABNORMAL) MAGNESIUM BLOOD (12/22/2018 7:29 AM CDT) Magnesium 3.7(H) 1.6 - 2.6 mg/dL 12/22/2018 8:17 AM CDT [facility] Blood BLOOD SPECIMEN / Unknown Lab Venipuncture / Unknown 12/22/2018 7:29 AM CDT 12/22/2018 7:43 AM CDT Tg Perez MD LAB - CHEMISTRY ORDE JONAH Performing Organization Address [facility] Co de Phone Number [facility] [address] [place] [phone] * (ABNORMAL) GLUCOSE - POINT OF CARE (12/22/2018 6:35 AM CDT) Only the most recent of116 resultswithin the time period is included. Pathologist [facility] Glucose WB/POC 108(H) 70 - 106 mg/dL 12/22/2018 6:42 AM CDT [facility] Specimen Type Arterial/C apillary 12/22/2018 6:42 AM CDT [facility] Blood BLOOD SPECIMEN / Unknown 12/22/2018 6:35 AM CDT 12/22/2018 6:42 AM CDT Gely Medina MD LAB - POINT OF CARE ORDERABLES Performing Organization Address [facility] Co de Phone Number [facility] [address] [place] [phone] * PROTEIN CREATININE RATIO URINE RANDOM PNL (12/21/2018 4:19 PM CDT) Only the most recent of5 resultswithin the time period is included. Protein Urine 126.6 mg/dL 12/21/2018 5:16 PM CDT [facility] Creatinine Urine 83.92 mg/dL 12/21/2018 5:16 PM CDT [facility] Protein/Creatin ine Ratio Urine 1.51 12/21/2018 5:16 PM CDT [facility] Urine URINE SPECIMEN OBTAINED BY CLEAN CATCH PROCEDURE / Unknown Collection / Unknown 12/21/2018 4:19 PM CDT 12/21/2018 4:32 PM CDT Edilma Nguyen MD LAB - URINE CHEMISTR Y ORDERABLES [facility] [address] [place] [address] * GROSS + MICRO EXAM (STL) (12/21/2018 12:39 PM CDT) Only the most recent of2 resultswithin the time period is included. Case Report Surgical Pathology Report ? Case: [id number] ? Authorizing Provider: ??Gely Medina MD ? Collected: ? 12/21/2018 12:39 PM ? Ordering Location: ? [facility] LDR ? Received: ?12/22/2018 08:04 AM ? Pathologist: ? Indu Rodriguez MD ? Specimen: ?Uterus, uterus and placenta ? 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 The patient is at 36w0d with induced hypertension and a known posterior previa with anterior succenturiate placental lobe. On abdominal entry the anterior lobe was bulging through the myometrium, to the serosal layer, necessitating Caesarian hysterectomy. The baby weighed 3060 grams, with Apgars 8, 4, 9. 12/26/2018 12:51 PM [facility] Gross Description Received in a container of formalin and labeled Reid Cait, and uterus is a disrupted uterus with densely adherent placenta with treated umbilical cord and membranes. No definitive orientation can be grossly determined. The specimen has a total weight of 1490 g and consists of a uterus (14.5 x 14 x 6.5 cm) and a densely adhered placenta (approximately 26 x 15 x 3.5 cm). The placental weight cannot be obtained, as approximately half of the placental volume is densely adherent to myometrium (increta). The serosa of the uterus is red-brown and disrupted. No definitive cervix is grossly appreciated. Sectioning the uterus displays a red-brown, trabecular myometrium with an average thickness of 4.5 cm. The appreciated endometrium is red-brown and hemorrhagic with an average thickness of 0.2 cm. The lower uterine segment consists of densely adherent placental tissue. The appreciated umbilical cord measures 36 cm in length x 1.5 cm in diameter, contains three vessels, and inserts approximately 6 cm from the margin. The surface is pierre-blue and displays the usual vascular pattern. The membranes are purple-brown, slightly thick and cloudy, and insert at the margin. The maternal surface appears complete with areas of disruption involving 5% of the maternal surface. The cotyledons are serially sectioned and display spongy red parenchyma. [employer] sections are submitted as follows: A1-A3 - endometrium, A4-A5 - one section of placenta and myometrium, A6-A7 - placenta and adherent myometrium, A8 - umbilical cord and membranes, A9 - surface, A10 - maternal surface. MIAN/la 12/26/2018 12:51 PM CDT [facility] Microscopic Description The placental implantation invades myometrium, consistent with placenta increta. The placental villi are of appropriate maturation for gestational age of 36 weeks 0 days. No villitis, thrombi, or infarcts are noted. The membranes are unremarkable and free of inflammation. The umbilical cord has three vessels and is unremarkable. 12/26/2018 12:51 PM CDT [facility] Disclaimer All histochemical and/or immunohistochemical results are interpreted with controls that demonstrate appropriate staining reactions before reporting results. Note on use of immunocytochemistry reagents: This test was developed and its performance characteristic determined by [facility], Department of Laboratory Medicine. It has not been cleared or approved by the U.S. Food and Drug Administration (FDA). The FDA has determined that such clearance or approval is not necessary. The test is used for clinical purpose. It should not be regarded as investigational or for research. This laboratory is certified to perform high complexity testing. 12/26/2018 12:51 PM CDT [facility] Embedded Images 12/26/2018 12:51 PM CDT [facility] Pathology/Cytolo gy ENTIRE UTERUS / Unknown 12/21/2018 12:39 PM CDT 12/22/2018 8:04 AM CDT Gely Medina MD LAB - PATHOLOGY/CYT OLOGY ORDERABLES [facility] [address] [place] [address] * PERIPHERAL IV NOTE (12/21/2018 12:35 PM CDT) Narrative Elizabeth Sandoval APRN-CRNA - 12/21/2018 12:35 PM CDT Elizabeth Sandoval APRN-CRNA ? 12/21/2018 12:36 PM Peripheral IV Line Placement: Patient Location: ??OR Procedure: IV start (02155). Procedure Section: ?? Skin Prep: Chloraprep. Orientation: right Location: hand Local Anesthetic Used? ??No Catheter Gauge: 18 Number of Attempts: 1. Procedure Tolerance: performed while patient under general anesthesia. Staff Section ?? Anesthesia Provider: Irene Obrien APRN-CRNA, Performed the procedure Tai Tellez MD GENERAL ANESTHESIA ORDERABLES * TRANSFUSE FRESH FROZEN PLASMA UNIT(S) (12/21/2018 12:29 PM CDT) Edilma Nguyen MD NURSING - BLOOD PROD TRANSFUSION * TRANSFUSE RED BLOOD CELL LEUKOREDUCED UNIT(S) (12/21/2018 12:18 PM CDT) Bennett Stewart MD NURSING - BLOOD PROD TRANSFUSION * ENDOTRACHEAL TUBE NOTE (12/21/2018 11:51 AM CDT) Narrative Elizabeth Sandoval APRN-CRNA - 12/21/2018 11:51 AM CDT Elizabeth Sandoval APRN-CRNA ? 12/21/2018 11:52 AM Endotracheal Tube Placement: ? Patient Location: OB. Intubation Event Date/Time: ??12/21/2018 11:43 AM Procedure: intubation ([id number]). Procedure Section: ?? Sedation: under general anesthesia. Indications for Airway Management: ??anesthesia Procedure pretreatments used? ??No Induction: cricoid pressure and rapid sequence Patient Position: ??sniffing Blade Type: Michelle Blade Size: 4 Laryngoscopy View: grade 1 (full cords) Intubation Adjuncts: cricoid pressure and stylet Device: endotracheal tube Placement: oral Tube type: endotracheal tube Tube Size (MM): 7 Depth of Insertion (CM): 22 Measured From: lips Cuff volume (mL): ??5 Cuff Inflated With: air Number of Attempts: 1. Placement Verified By: direct visualization, bilateral breath sounds, chest auscultation and CO2 monitor Tube secured with: ??adhesive tape. Difficult Airway? ??No. Procedure Start Time: 12/21/2018 11:43 AM. Staff Section ?? Anesthesia Provider: Elizabeth Sandoval APRN-CRNA, Performed the procedure Provider #1: Tai Tellez MD. Tai Tellez MD GENERAL ANESTHESIA ORDERABLES * PREPARE (CROSSMATCH) RBC UNIT(S), 4 Units (12/21/2018 11:30 AM CDT) Only the most recent of14 resultswithin the time period is included. Product Code Z2511N80 [facility] Unit Donor # [id number] [facility] ABO Donor Type B [facility] Rh Type Unit POS [facility] Unit Status Ret'd [facility] LAB ABO Rh Type Unit BPOS [facility] Donor Unit Expiration Date [facility] Blood Type Barcode 7300 [facility] Product Code F0146N11 [facility] Unit Donor # [id number] [facility] Donor Type B [facility] Rh Type Unit POS [facility] B[facility] Unit Status Ret'd [facility]LO OD BANK LAB ABO Rh Type Unit BPOS [facility] Donor Unit Expiration Date [facility] Blood Type Barcode 7300 [facility] Blood Bank BLOOD SPECIMEN / Unknown 12/21/2018 11:30 AM CDT Edilma Nguyen MD LAB - BLOOD BANK ORD ERABLES [facility] [address] [phone] * PREPARE PLATELET PHERESIS UNIT(S), 1 Units (12/21/2018 11:30 AM CDT) Product Code [id number] [facility] Unit Donor # [id number] [facility] Donor Type O [facility] Rh Type Unit POS [facility] Unit Status Ret'd [facility]BO Rh Type Unit OPOS [facility] Donor Unit Expiration Date [facility] Blood Type Barcode 5100 [facility] Blood Bank BLOOD SPECIMEN / Unknown 12/21/2018 11:30 AM CDT Edilma Nguyen MD LAB - BLOOD BANK ORD ERABLES [facility] [address] [phone] * PREPARE FFP UNIT(S), 4 Units (12/21/2018 11:30 AM CDT) Only the most recent of2 resultswithin the time period is included. Product Code [id number] [facility] Unit Donor # [id number] [facility] ABO Donor Type AB [facility] Rh Type Unit POS [facility] Unit Status Ret'd [facility] ABO Rh Type Unit ABPOS [facility] Donor Unit Expiration Date [facility] Blood Type Barcode 8400 [facility] Product Code [id number] [facility] Unit Donor # [id number] S [facility] ABO Donor Type AB [facility] Rh Type Unit POS [facility] Unit Status Ret'd [facility] ABO Rh Type Unit ABPOS [facility] Donor Unit Expiration Date [facility] Blood Type Barcode 8400 [facility] Product Code [id number] [facility] Unit Donor # [id number] [facility] ABO Donor Type B [facility] Rh Type Unit POS [facility] Unit Status Transfd [facility] Rh Type Unit BPOS [facility] Donor Unit Expiration Date [facility] Blood Type Barcode 7300 [facility] Blood Bank BLOOD SPECIMEN / Unknown 12/21/2018 11:30 AM CDT Edilma Nguyen MD LAB - BLOOD BANK ORD ERABLES [facility] [address] [place] [address], [facility] [phone] * Neuraxial Block (12/21/2018 10:54 AM CDT) Narrative Elizabeth Sandoval APRN-CRNA - 12/21/2018 10:54 AM CDT Elizabeth Sandoval APRN-CRNA ? 12/21/2018 10:58 AM Neuraxial Block Note ?? Procedure Name: ??Neuraxial Block Patient Location: ??OB Pre-Procedure: ?? Indications: ??at patient's request and labor analgesia Pre-Anesthetic Checklist: ??Patient identified, IV Checked, Risks and benefits discussed, Surgical consent verified, Monitors and equipment, Site examined, Pre-op evaluation done, Time-out performed, Informed consent obtained, Questions answered/anesthesia questions answered and Allergies reviewed Anticoagulation/ Anti-thrombosis status confirmed? ??Yes Supplemental O2: ??room air Monitors: ??BP and continuous pluse ox Patient Condition: ??awake Procedure: ?? Block Type: ??Spinal Prep: ??Betadine Sterile Field: ??mask, cap/hat, sterile established and sterile gloves Approach: ??midline Spinal Block: ?? Needle Type: ??pencil-point Needle Gauge: ??25 Needle Length: ??90 mm Placement Site: ??L3-4 Number of Attempts: ??1 CSF: ??free flow, ?? aspiration before injection, ?? aspiration during injection, ?? aspiration after injection Degree of difficulty: ??none Procedure Tolerance: ??tolerated well Sensory Level: ??T4 Motor Blockade: ??Yes Position post procedure: ??left uterine displacement Vital Signs: ??Vital sings monitored and stable throughout. ??See anesthesia record for details. Staff: ?? Anesthesia Provider: ??Elizabeth Sandoval APRN-CRNA ?? - ?? performed the procedure Provider #1: ??Tai Tellez MD Tai Tellez MD GENERAL ANESTHESIA ORDERABLES * TYPE + SCREEN PANEL (12/20/2018 5:42 AM CDT) Only the most recent of14 resultswithin the time period is included. ABO B 12/20/2018 6:24 AM CDT [facility] Rh Type Positive 12/20/2018 6:24 AM CDT [facility] Comment:History checked. Antibody Screen Negative 12/20/2018 6:24 AM CDT [facility] Blood Bank BLOOD SPECIMEN / Unknown Lab Venipuncture / Unknown 12/20/2018 5:42 AM CDT 12/20/2018 5:49 AM CDT Kelley Rocha MD LAB - BLOOD BANK ORD ERABLES [facility] [address] [place] [address], [facility] [phone] * NONSTRESS TEST (12/18/2018 4:33 PM CDT) Narrative Deepa Chaudhry APRN-PASSENGER CAR UPHOLSTERER APPRENTICE - 12/18/2018 4:33 PM CDT Charlene Storm RN ? 12/18/2018 ??4:34 PM Name: ??Cait Mathews Date of : ??1995 Today's Date: ??12/18/2018 ?Start: ??1442 ?Stop: ??1521 ?NST RESULTS (STANLEY) OBJECTIVE FINDINGS Temp: 98.5 ??F (36.9 ??C), Pulse: 76, Resp: 18, BP: 138/90 NST Indication(s): Placenta Previa Uterine Irritability: No Contractions: Not present OBJECTIVE FINDINGS Movement: Present Monitoring Mode: External Baseline: 140 BPM Variability: Moderate Decelerations: Variable Accelerations: Yes OTHER INFORMATION Inpatient Interventions: None Charlene Storm RN Lianne Flores MD OB GYNE ORDERABLES * NONSTRESS TEST (12/17/2018 1:18 PM CDT) Narrative Gely Medina MD - 12/17/2018 1:18 PM CDT Essence Faria MD ? 12/17/2018 10:55 PM Name: ??Cait Mathews Date of : ??1995 Today's Date: ??12/17/2018 Start: 1109 End: 1142 ?NST RESULTS (STANLEY) OBJECTIVE FINDINGS Temp: 98.2 ??F (36.8 ??C), Pulse: 69, Resp: 18, BP: 148/90 NST Indication(s): Placenta Previa Uterine Irritability: Yes Contractions: Irregular Frequency: x1 Duration (sec) Range: 140 Perceived Intensity: Mild OBJECTIVE FINDINGS Movement: Present Monitoring Mode: External Baseline: 145 BPM Variability: Moderate Decelerations: Variable Accelerations: Yes OTHER INFORMATION Inpatient Interventions: None Mary Lion RN Non-Stress Test (NST) Caitthomas Mathews [id number] 12/17/2018 10:54 PM Indications: Patient Active Problem List: ?? Tobacco abuse ?? Preeclampsia ?? Supervision of high risk , antepartum ?? Pre-eclampsia in third trimester ?? Previous delivery, antepartum condition or complication ?? Previous delivery, antepartum ?? Obesity affecting in third trimester ?? Depressive disorder ?? 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 Gastroesophageal reflux disease ?? Hyperhidrosis ?? Placenta previa antepartum in third trimester ?? Vaginal bleeding during ?? Insulin controlled gestational diabetes mellitus (GDM) in third trimester ?? Maternal asthma complicating ?? Bilobed placenta ?? 34 weeks gestation of ?? Depression ?? Vasa previa Interpretation: Fetus A: Baseline: ??145 beats/minute reactive Variability: Moderate Contractions: ??CTX x1 Decelerations: ??none Recs: Cont testing Essence Faria MD Lianne Flores MD OB GYNE ORDERABLES * NONSTRESS TEST (12/16/2018 7:03 PM CDT) Narrative Gely Medina MD - 12/16/2018 7:03 PM CDT Sara Duran MD ? 12/17/2018 ??7:52 AM Name: ??Cait Mathews Date of : ??1995 Today's Date: ??12/16/2018 Start: ?? 1240 End: ?1314 ?NST RESULTS (STANLEY) OBJECTIVE FINDINGS Temp: 97.9 ??F (36.6 ??C), Pulse: 84, Resp: 18, BP: 141/84 OBJECTIVE FINDINGS OTHER INFORMATION Lynda Pat RN Non-Stress Test (NST) Cait H Reid [id number] 12/17/2018 7:52 AM Indications: Complete previa Interpretation: Fetus A: Baseline: ??145 beats/minute Reactive Variability: Moderate Contractions: ??None Decelerations: ??None Recs: Reassuring, continue monitoring as indicated Sara Duran MD Lianne Flores MD OB GYNE ORDERABLES * NONSTRESS TEST (12/16/2018 2:05 PM CDT) Narrative Deepa Chaudhry APRN-CNP - 12/16/2018 2:05 PM CDT Lynda Pat RN ? 12/15/2018 ??6:38 PM Name: ??Cait Mathews Date of : ??1995 Today's Date: ??12/15/2018 Start: ?? 175 End: ?1830 ?NST RESULTS (STANLEY) OBJECTIVE FINDINGS Temp: 98.5 ??F (36.9 ??C), Pulse: 65, Resp: 18, BP: 138/97 NST Indication(s): Gestational diabetes, Placenta Previa Uterine Irritability: Yes Contractions: Irregular Frequency: x2 OBJECTIVE FINDINGS Movement: Present Monitoring Mode: External Baseline: 150 BPM Variability: Moderate Decelerations: None Accelerations: Yes OTHER INFORMATION Comments: pt denies feeling Lynda Pat RN Lianne Flores MD OB GYNE ORDERABLES * NONSTRESS TEST (12/15/2018 11:47 AM CDT) Narrative Deepa Chaudhry APRN-CNP - 12/15/2018 11:47 AM CDT Vijaya Ashton MD ? 12/15/2018 ??6:00 AM Name: ??Cait Mathews Date of : ??1995 Today's Date: ??12/14/2018 ??[id number] ?NST RESULTS (STANLEY) OBJECTIVE FINDINGS Temp: 98.2 ??F (36.8 ??C), Pulse: 76, Resp: 18, BP: 130/81 NST Indication(s): Gestational diabetes, Placenta Previa Uterine Irritability: No Contractions: Irregular Frequency: x1 Duration (sec) Range: 120 Perceived Intensity: Mild OBJECTIVE FINDINGS Movement: Present Monitoring Mode: External Baseline: 135 BPM Variability: Moderate Decelerations: None Accelerations: Yes OTHER INFORMATION Rupa Anthony RN R1 Addendum Non-Stress Test (NST) Cait Mathews [id number] 12/15/2018 5:59 AM Indications: Placenta Previa, GDM, cHTN Interpretation: Baseline: ??125 beats/minute reactive Variability: Moderate Contractions: ??none Decelerations: ??none Vijaya Ashton MD Lianne Flores MD OB GYNE ORDERABLES * (ABNORMAL) CBC W/O DIFFERENTIAL (12/15/2018 5:06 AM CDT) WBC 9.1 4.4 - 10.7 x10E9/L 12/15/2018 5:31 AM CDT [facility] RBC 3.84 3.80 - 5.20 x10E12/L 12/15/2018 5:31 AM CDT [facility] Hemoglobin 11.0(L) 12.0 - 15.6 gm/dL 12/15/2018 5:31 AM CDT [facility] Hematocrit 35.3(L) 35.9 - 45.5 % 12/15/2018 5:31 AM CDT [facility] MCV 91.9 80.7 - 98.3 fl 12/15/2018 5:31 AM CDT [facility] MCH 28.6 26.7 - 34.0 pg 12/15/2018 5:31 AM CDT [facility] MCHC 31.2 30.8 - 35.9 gm/dL 12/15/2018 5:31 AM CDT [facility] Platelet Count 176 153 - 416 x10E9/L 12/15/2018 5:31 AM CDT [facility] RDW-CV 13.9 12.1 - 14.9 % 12/15/2018 5:31 AM CDT [facility] MPV 11.7 9.4 - 12.9 fl 12/15/2018 5:31 AM CDT [facility] Blood BLOOD SPECIMEN / Unknown Lab Venipuncture / Unknown 12/15/2018 5:06 AM CDT 12/15/2018 5:21 AM CDT Perla Vásquez MD LAB - HEMATOLOGY ORD ERABLES [facility] [address] [place] [address] * NONSTRESS TEST (12/14/2018 12:41 PM CDT) Narrative Gely Medina MD - 12/14/2018 12:41 PM CDT Vijaya Ashton MD ? 12/14/2018 ??6:06 AM Name: ??Cait Bárbara Mathews Date of : ??1995 Today's Date: ??12/13/2018 efm started ??1000 efm complete ??1117 ?NST RESULTS (STANLEY) OBJECTIVE FINDINGS Temp: 98.2 ??F (36.8 ??C), Pulse: 72, Resp: 20, BP: 108/56 NST Indication(s): Gestational diabetes, Placenta Previa Uterine Irritability: Yes Contractions: Not present OBJECTIVE FINDINGS Movement: Present Monitoring Mode: External Baseline: 125 BPM (baseline change up to 140) Variability: Moderate Decelerations: Variable Accelerations: Yes OTHER INFORMATION Inpatient Interventions: Provider Notified Rupa Hope LPN R1 Addendum Non-Stress Test (NST) Cait Mathews [id number] 12/14/2018 6:06 AM Indications: Placenta Previa Interpretation: Baseline: ??140 beats/minute reactive Variability: Moderate Contractions: ??none Decelerations: ??none Vijaya Ashton MD Lianne Flores MD OB GYNE ORDERABLES * SONOGRAM - COMPLETE (12/14/2018 9:30 AM CDT) Only the most recent of7 resultswithin the time period is included. Anatomical Region Laterality Modality Other 12/14/2018 9:30 AM CDT Narrative 12/14/2018 2:09 PM CDT ? [facility] ?PHONE: ??FAX: Pat. Name: ?CAIT MATHEWS Pat. No: ?[id number] Study Date: ?? 12/14/2018 ??9:30am , Age: ? 1995, 23 Pregnancies: ?? 2, Para 1 Height: ? 60 in Weight: ? 180 lb LMP: ?Unknown GA by Base: ?? 35w0d ?? ULISES: 01/18/2019 GA by US: ? 35w0d ?? ULISES: 01/18/2019 GA Selected: ??35w0d (From [facility]) ULISES: ?01/18/2019 Referring MD: Hunter, , [facility] Mirror Machine Feeder: ??Anupama Cantu RDMS CPT4: ? 73402,52478 BMI: ?35.15 Room: ? 558 Hist/Ind: ? Vaginal bleeding ?Tobacco use ?Delivery at 34 wk (severe pre-eclampsia, malpresentation, IUGR) ?Obesity ?Placenta previa ?Completed anatomy survey MEASUREMENTS & AGE ? GROWTH EVALUATION Measurement ??GA ? Range ? Srce %for GA Ratios ----- ---- ------- BPD ??8.8 cm 35w3d (45s3k-58y5g) Hadl BPD 64% FL/BPD 0.73 (0.71 - 0.87) HC ??32.9 cm 37w2d (34t9f-94o3i) Hadl HC ??74% FL/AC ??0.19 (0.20 - 0.24* AC ??34.2 cm 38w1d (68u5k-59j3h) Hadl AC ??>99 HC/AC ??0.96 (0.93 - 1.12) FL ?? 6.4 cm 33w0d (00j0p-86j4r) Hadl FL ??4% CI ? 0.75 (0.70 - 0.86) HL ?? 5.7 cm 32w6d (03s3z-91l3i) [place] HL ??14% GA for sonogram 35w0d (01k0a-36c1a) ?? Weight Estimate: based on (BPD,HC,AC,FL) [place] ?Weight: 2962 gm (2529-3394gm) Had ? : 6lbs, 8oz ? Normal: 2604 gm (1953- 3256gm) Had ? Wt% ? 85% for 35w0d Cervix: ??Length: 3.5 cm ??Approach: transvaginal ??Funneling: not present Heart Rate: 146 bpm Amniotic Fluid Index: 12.5cm (07.9-24.9) Q1: 1.5cm ??Q2: 1.8cm ??Q3: 4.3cm ??Q4: 4.9cm ?? EVAL, PLACENTA Presentation: cephalic Placenta: anterior posterior Previa: complete previa Heart Rate: 146 bpm Amniotic Fluid Volume: normal CLINICAL SUMMARY Study Number: 8 ?? A single fetus is identified in cephalic presentation. ??The measurements today are consistent with appropriate growth compared to previous examination growth. ??The ULISES selected is based on a prior ultrasound. ??The estimated weight percentile is 85%. ??The amniotic fluid volume is normal. ??The placenta is anterior posterior. The patient was advised that ultrasound does not allow detection of all structural or chromosome abnormalities. IMPRESSION: Single cephalic IUP at 35w0d. Reassuring TVU CL. normal Amniotic fluid volume. Appropriate interval growth. AGA status. Placental Location: unable to review images in real time today but on still images seems to have ??a complete previa, over cervix and prior u/s reports vessel within 2 cm of os and bilobate placentation. cannot rule out accreta. anterior posterior No major malformations are seen today within the limitations of ultrasound. Completed anatomy survey. RECOMMEND: Suggest repeat TVU and TA u/s of placentation in real-time by MFM. Follow up ultrasound as clinically indicated per the inpatient team.. Thank you for allowing us the opportunity to care for your patient. cc: ??Inpatient at time of study ? Filiberto Ray MD ?<Electronic Signature> ??12/14/2018 02:04pm Vijaya Ashton MD M ORDERABLES * NONSTRESS TEST (12/13/2018 2:22 PM CDT) Narrative Gely Medina MD - 12/13/2018 2:22 PM CDT Perla Vásquez MD ? 12/13/2018 ??6:57 AM Name: ??Cati Mathews Date of : ??1995 Today's Date: ??12/12/2018 efm started ??1335 efm completed ??1413 ?NST RESULTS (STANLEY) OBJECTIVE FINDINGS Temp: ??(eating), Pulse: 96, Resp: 16, BP: 137/89 NST Indication(s): Placenta Previa Uterine Irritability: Yes Contractions: Not present OBJECTIVE FINDINGS Movement: Present Monitoring Mode: External Baseline: 135 BPM (to 130) Variability: Moderate Decelerations: Variable Accelerations: Yes OTHER INFORMATION Inpatient Interventions: None Rupa Hope LPN NST: baseline ranges from 125-140 bpm, moderate variability, reactive, no decelerations Basile: no contractions Perla Vásquez MD 12/13/2018 6:56 AM Lianne Flores MD OB GYNE ORDERABLES * NONSTRESS TEST (12/12/2018 8:39 PM CDT) Narrative Mallory Brower MD - 12/12/2018 8:39 PM CDT Perla Vásquez MD ? 12/08/2018 ??6:12 AM ..Name: ??Cait Mathews Date of : ??1995 Today's Date: ??12/07/2018 Start: 1608 Stop: 1720 ?NST RESULTS (STANLEY) OBJECTIVE FINDINGS Temp: 98.4 ??F (36.9 ??C), Pulse: 91, Resp: 18, BP: 146/98 NST Indication(s): Chronic hypertension (increasing blood pressures) Uterine Irritability: No Contractions: Not present OBJECTIVE FINDINGS Movement: Present Monitoring Mode: External Baseline: 160 BPM Variability: Moderate Decelerations: None Accelerations: Yes OTHER INFORMATION Maria E Farooq RN NST: baseline 155-160 bpm, moderate variability, reactive, not recurrent variable decelerations, baseline change to 165 vs prolonged acceleration at end of strip Basile: no contractions Perla Vásquez MD 12/08/2018 6:12 AM Lianne Flores MD OB GYNE ORDERABLES * NONSTRESS TEST (12/12/2018 8:39 PM CDT) Narrative Mallory Brower MD - 12/12/2018 8:39 PM CDT Perla Vásquez MD ? 12/08/2018 ??6:11 AM .Name: ??Cait Friedmaners Date of : ??1995 Today's Date: ??12/07/2018 ?NST RESULTS (STANLEY) OBJECTIVE FINDINGS NST Indication(s): Placenta Previa Uterine Irritability: No Contractions: Not present OBJECTIVE FINDINGS Movement: Present Monitoring Mode: External Baseline: 130 BPM Variability: Moderate Decelerations: None Accelerations: Yes Start: 13:26 Stop: 13:48 OTHER INFORMATION Inpatient Interventions: None Maria E Farooq RN NST: baseline 140 bpm, moderate variability, reactive, no obvious decelerations; baseline change at 1336 to 130 bpm Basile: no contractions Perla Vásquez MD 12/08/2018 6:10 AM Lianne Flores MD OB GYNE ORDERABLES * NONSTRESS TEST (12/12/2018 1:55 PM CDT) Narrative Gely Medina MD - 12/12/2018 1:55 PM CDT Perla Vásquez MD ? 12/12/2018 ??5:09 AM Name: ??Cait Mathews Date of : ??1995 Today's Date: ??12/11/2018 Start: 818 End: 935 ?NST RESULTS (STANLEY) OBJECTIVE FINDINGS Temp: 98.1 ??F (36.7 ??C), Pulse: (!) 110, Resp: 18, BP: 150/90 NST Indication(s): Placenta Previa (vasa previa) Uterine Irritability: Yes Contractions: Not present Frequency: 0 Duration (sec) Range: 0 Perceived Intensity: Mild OBJECTIVE FINDINGS Movement: Present Monitoring Mode: External Baseline: 140 BPM Variability: Moderate Decelerations: Variable Accelerations: Yes OTHER INFORMATION pt calls nurse and reports feeling shaky, nauseous, and light headed. BS 117, pulse 110, temp and bp wnl. tachycardia noted at first. Dr Stewart called to room. Marci Mejia, RN NST: tachycardia at beginning of strips that returns to baseline 145 -150 bpm possibly represents a prolonged acceleration but exact etiolology unclear, moderate variability, reactive, no decelerations Basile: no contractions Perla Vásquez MD 12/12/2018 5:08 AM Lianne Flores MD OB GYNE ORDERABLES * NONSTRESS TEST (12/12/2018 1:55 PM CDT) Narrative Gely Medina MD - 12/12/2018 1:55 PM CDT Essence Faria MD ? 12/12/2018 ??8:42 AM Name: ??Cait Mathews Date of : ??1995 Today's Date: ??12/10/2018 Start: 1127 End: 1210 ?NST RESULTS (STANLEY) OBJECTIVE FINDINGS Temp: 97.7 ??F (36.5 ??C), Pulse: 84, Resp: 18, BP: 135/81 NST Indication(s): Other (Comment), Pre-eclampsia (vaso previa) Uterine Irritability: Yes Contractions: Irregular Frequency: x2 Duration (sec) Range: 90 Perceived Intensity: Mild OBJECTIVE FINDINGS Movement: Present Monitoring Mode: External Baseline: 150 BPM Variability: Moderate Decelerations: Variable Accelerations: Prolonged, Yes OTHER INFORMATION Marci Mejia RN Non-Stress Test (NST) Cait Mathews [id number] 12/12/2018 8:41 AM Indications: Patient Active Problem List: ?? Tobacco abuse ?? Supervision of high risk , antepartum ?? Hx of preeclampsia, prior , currently ?? Previous delivery, antepartum condition or complication ?? Previous delivery, antepartum ?? Obesity affecting in third trimester ?? Depressive disorder ?? 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 Gastroesophageal reflux disease ?? Hyperhidrosis ?? Placenta previa antepartum in third trimester ?? Abnormal O'Cartwright glucose challenge test, antepartum ?? Vaginal bleeding during ?? Gestational diabetes ?? Maternal asthma complicating ?? Bilobed placenta ?? Vasa previa ?? 34 weeks gestation of Interpretation: Fetus A: Baseline: ??155 beats/minute with prolonged acceleration of FHTs to 170s with return to baseline reactive Variability: Moderate Contractions: ??rare Decelerations: ??none Recs: Cont testing Essence Faria MD Lianne Flores MD OB GYNE ORDERABLES * NONSTRESS TEST (12/11/2018 6:56 PM CDT) Narrative Mallory Brower MD - 12/11/2018 6:56 PM CDT Marci Mejia RN ? 12/11/2018 ??4:05 PM Name: ??Cait Mathews Date of : ??1995 Today's Date: ??12/11/2018 Start: 1321 End: 1412 ?NST RESULTS (STANLEY) OBJECTIVE FINDINGS Temp: 98.2 ??F (36.8 ??C), Pulse: (!) 117, Resp: 18, BP: 136/89 NST Indication(s): Placenta Previa Uterine Irritability: Yes Contractions: Not present Frequency: 0 Duration (sec) Range: 0 Perceived Intensity: Mild OBJECTIVE FINDINGS Movement: Present Monitoring Mode: External Baseline: 140 BPM (baseline change from 160 down to 140) Variability: Moderate Decelerations: Variable Accelerations: Yes OTHER INFORMATION pt called out to nurse stating that she still felt different. Pt reports weakness when standing, chills and then sweats, nausea, headache and shakes. Pt placed on EFM and vitals taken. Drs notified. Inpatient Interventions: Provider Notified Marci Mejia RN Lianne Flores MD OB GYNE ORDERABLES * (ABNORMAL) URINE MICROSCOPIC ONLY REFLEX TO CULTURE (12/08/2018 3:20 PM CDT) Only the most recent of5 resultswithin the time period is included. Reflex Status Culture not indicated 12/08/2018 3:35 PM CDT [facility] RBC UA 6-10(A) None Seen, 0-2, 3-5 # /hpf 12/08/2018 3:35 PM CDT [facility] WBC UA 0-5 None Seen, 0-5 # /hpf 12/08/2018 3:35 PM CDT [facility] Bacteria UA None Seen None Seen 12/08/2018 3:35 PM CDT [facility] Squamous Epithelial Cells 0-2 None Seen, 0-2, 3-5 /hpf 12/08/2018 3:35 PM CDT [facility] Mucus UA 1+ /LPF 12/08/2018 3:35 PM CDT [facility] Hyaline Casts 0-2 None Seen, 0-2 # /lpf 12/08/2018 3:35 PM CDT [facility] Urine URINE SPECIMEN OBTAINED BY SINGLE CATHETERIZATION OF URINARY BLADDER / Unknown Collection / Unknown 12/08/2018 3:20 PM CDT 12/08/2018 3:25 PM CDT Narrative [facility] - 12/08/2018 3:35 PM CDT Perla Vásquez MD LAB - URINALYSIS ORD ERABLES Performing Organization Address [facility] Co de Phone Number [facility] [address] [place] [address] * (ABNORMAL) URINALYSIS REFLEX MICROSCOPIC REFLEX CULTURE (12/08/2018 3:20 PM CDT) Only the most recent of7 resultswithin the time period is included. Color UA Yellow Straw, Yellow 12/08/2018 3:35 PM CDT [facility] Clarity UA Slt Cloudy(A) Clear 12/08/2018 3:35 PM CDT [facility] Glucose UA Negative Negative 12/08/2018 3:35 PM CDT [facility] Bilirubin UA Negative Negative 12/08/2018 3:35 PM CDT [facility] Ketone UA Trace(A) Negative 12/08/2018 3:35 PM CDT [facility] Specific [place] UA 1.029 1.005 - 1.030 12/08/2018 3:35 PM CDT [facility] Blood UA Negative Negative 12/08/2018 3:35 PM CDT [facility] pH UA 6.0 5.0 - 8.0 pH 12/08/2018 3:35 PM CDT [facility] Protein UA 2+(A) Negative 12/08/2018 3:35 PM CDT [facility] Urobilinogen UA Negative Negative mg/dL 12/08/2018 3:35 PM CDT [facility] Nitrite UA Negative Negative 12/08/2018 3:35 PM CDT [facility] Leukocyte UA Negative Negative 12/08/2018 3:35 PM CDT [facility] Urine Microscopy Urine microscopy to follow 12/08/2018 3:35 PM CDT [facility] Reflex Status Culture not indicated 12/08/2018 3:35 PM CDT [facility] Urine URINE SPECIMEN OBTAINED BY SINGLE CATHETERIZATION OF URINARY BLADDER / Unknown Collection / Unknown 12/08/2018 3:20 PM CDT 12/08/2018 3:25 PM CDT [facility] - 12/08/2018 3:35 PM CDT Ascorbic Acid can cause false negative urine strip tests for blood, glucose, nitrite, and bilirubin. Perla Vásquez MD LAB - URINALYSIS ORD ERABLES [facility] [address] [place] [address] * SONOGRAM - TRANSVAGINAL (12/07/2018 11:10 AM CDT) Anatomical Region Laterality Modality Other 12/07/2018 11:1 0 AM CDT Narrative 12/09/2018 7:10 PM CDT ? [facility] ? [facility] ?PHONE: ??FAX: Pat. Name: ?CAIT MATHEWS Pat. No: ?[id number] Study Date: ?? 12/07/2018 ??11:10am , Age: ? 1995, 23 Pregnancies: ?? 2, Para 1 Height: ? 60 in Weight: ? 180 lb LMP: ?Unknown GA by Base: ?? 34w0d ?? ULISES: 01/18/2019 GA Selected: ??34w0d (From [place]) ULISES: ?01/18/2019 Referring MD: MD Hunter, [facility] Mirror Machine Feeder: ??Gabbi Saenz RDMS CPT4: ? 59011,05955 BMI: ?35.15 Hist/Ind: ? Vaginal bleeding ?Tobacco use ?Delivery at 34 wk (severe pre-eclampsia, malpresentation, IUGR) ?Obesity ?Placenta previa ?Completed anatomy survey Cervix: ??Length: 3.8 cm ??Approach: transvaginal ??Funneling: not present Heart Rate: 149 bpm EVAL, PLACENTA Presentation: cephalic Placenta: bilobate [anterior/posterior]:succinturiate [left lateral] lobe Previa: posterior placenta previa:low lying chorionic vessel Appearance: bilobate [anterior/posterior]:succinturiate [left lateral] lobe Heart Rate: 149 bpm Amniotic Fluid Volume: normal CLINICAL SUMMARY Study Number: 3 ?? This is complicated by abnormal placentation. ?? Transabdominal and transvaginal approach were utilized in order to evaluate the placenta and cervix. The placenta is bilobate with a bulky anterior and posterior component connected on the right lateral aspect of the uterus by a narrow isthmus. ??There is also of left lateral succenturiate lobe which appears to connect to the posterior placental disc by a vessel that passes by the internal cervical os. ??The posterior aspect of the placenta abuts the internal cervical os. ??There also appears to be a blood clot at the internal cervical os tangential to the tip of the posterior placental mass. ?? Color Doppler demonstrated increased color velocity signals suggesting chorionic vessels in the lower uterine segment (within 2 cm of the internal cervical os ). ??Pulse wave Doppler interrogation of two vessels both within 2 cm of the internal cervical os demonstrated waveforms with a pulse rate consistent with a vessel. ??The order of structures closest to the internal cervical os ( from distal to most proximal) is the nearby vessel, posterior tip of the placenta and last what appears to be a blood clot. ??The blood clot- like lesion directly overlies internal os and the vessel with the pulse rate appears to be 17 mm from the internal os. ?? The transvaginal cervical length is reassuring. ??This assessment has been utilized to categorize patients who are either at high or lower risk of acute vaginal bleeding requiring an emergent delivery. IMPRESSION: Single , live, IUP at 34w0d. ?? Amniotic fluid: Normal ?? Posterior placenta previa Bilobate placenta [main discs are anterior and posterior, connected by a right lateral isthmus] with an additional small left lateral accessory placental lobe Chorionic vessels, with pulse rates, within 2 cm of, but not directly overlying, the internal os Reassuring transvaginal cervical length-- ??No current signs of laboring changes ?? RECCOMMEND: Weekly transvaginal cervical length, until delivery, to assess risk of bleeding and emergency delivery Thanks for allowing us the opportunity to care for your patient. ?? cc: ??Inpatient at time of study ? Mallory Brower MD ?<Electronic Signature> ??12/09/2018 07:10pm Revised Gabrielle Lui MD [facility] ORDERABLES * NONSTRESS TEST (12/06/2018 10:23 PM CDT) Narrative Mallory Brower MD - 12/06/2018 10:23 PM CDT Lynda Campuzano RN ? 12/06/2018 12:51 PM Name: ??Cait Mathews Date of : ??1995 Today's Date: ??12/06/2018 Start 1135 Stop 1202 ?NST RESULTS ([place]) OBJECTIVE FINDINGS Temp: 98 ??F (36.7 ??C), ??, Resp: 16, BP: 142/87 NST Indication(s): Placenta Previa Uterine Irritability: Yes Contractions: Not present OBJECTIVE FINDINGS Movement: Present Monitoring Mode: External Baseline: 150 BPM Variability: Moderate Decelerations: Variable Accelerations: Yes OTHER INFORMATION Inpatient Interventions: None Lynda Campuzano RN Lianne Flores MD [facility] ORDERABLES * CULTURE URINE (12/06/2018 12:53 PM CDT) Only the most recent of6 resultswithin the time period is included. Culture Urine <10,000 CFU/mL urogenital luis daniel ALESSANDRO 12/07/2018 6:04 PM CDT [facility] MICROBIOLOGY Urine URINE SPECIMEN OBTAINED BY CLEAN CATCH PROCEDURE / Unknown Collection / Unknown 12/06/2018 12:53 PM CDT 12/06/2018 1:17 PM CDT Lianne Flores MD LAB - MICROBIOLOGY O RDERABLES [facility] MICROBIOLOGY [address] [place] [address], [facility] [phone] * NONSTRESS TEST (12/05/2018 8:31 PM CDT) Narrative Mallory Brower MD - 12/05/2018 8:31 PM CDT Gabrielle Lui MD ? 12/05/2018 ??6:29 AM Name: ??Cait Mathews Date of : ??1995 Today's Date: ??12/04/2018 Start 1344 Stop 1418 ?NST RESULTS ([place]) OBJECTIVE FINDINGS Temp: 98 ??F (36.7 ??C), Pulse: 81, Resp: 18, BP: 137/83 NST Indication(s): Placenta Previa Uterine Irritability: Yes Contractions: Not present OBJECTIVE FINDINGS Movement: Present Monitoring Mode: External Baseline: 135 BPM Variability: Moderate Decelerations: Variable Accelerations: Yes OTHER INFORMATION Inpatient Interventions: None Lynda Campuzano RN Non-Stress Test (NST) Cait Mathews [id number] 12/05/2018 6:07 AM Indications: Patient Active Problem List: ?? Tobacco abuse ?? Supervision of high risk , antepartum ?? Hx of preeclampsia, prior , currently ?? Previous delivery, antepartum condition or complication ?? Previous delivery, antepartum ?? Obesity affecting in third trimester ?? Cellulitis ?? Child attention deficit disorder ?? Depressive disorder ?? 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 Dysmenorrhea ?? Ganglion and cyst of synovium, tendon and bursa ?? Gastroesophageal reflux disease ?? Hyperhidrosis ?? Obesity (BMI 30-39.9) ?? Placenta previa without hemorrhage, antepartum ?? Abnormal O'Cartwright glucose challenge test, antepartum ?? Evaluate anatomy not seen on prior sonogram ?? Vaginal bleeding in , second trimester ?? Vaginal bleeding during , antepartum ?? Vaginal bleeding Interpretation: Fetus A: Baseline: ??140 beats/minute reactive Variability: Moderate Contractions: ??none Decelerations: ??None Accelerations: Present Recs: FWB overall reassuring. No decels or contractions seen. 15x15 accelerations. Cont testing Gabrielle Lui MD Lianne Flores MD [facility] ORDERABLES * SONOGRAM - LIMITED (12/05/2018 9:36 AM CDT) Anatomical Region Laterality Modality Other 12/05/2018 9:36 AM CDT Narrative 12/05/2018 4:50 PM CDT ?[facility] [place] ? [facility] ? [facility] ?PHONE: ??FAX: Pat. Name: ?CAIT MATHEWS Pat. No: ?[id number] Study Date: ?? 12/05/2018 ??9:36am , Age: ? 1995, 23 Pregnancies: ?? 2, Para 1 Height: ? 60 in Weight: ? 180 lb LMP: ?Unknown GA by Base: ?? 33w5d ?? ULISES: 01/18/2019 GA Selected: ??33w5d (From [place]) ULISES: ?01/18/2019 Referring MD: MD Hunetr, [facility] Mirror Machine Feeder: ??Poppy Shirley RDMS CPT4: ? 92242,79370 BMI: ?35.15 Room: ? 556 Hist/Ind: ? Vaginal bleeding ?Tobacco use ?Delivery at 34 wk (severe pre-eclampsia, malpresentation, IUGR) ?Obesity ?Placenta previa ?Completed anatomy survey Heart Rate: 165 bpm Amniotic Fluid Index: 15.1cm (08.1-24.7) Q1: 2.8cm ??Q2: 3.9cm ??Q3: 3.8cm ??Q4: 4.6cm ?? EVAL, PLACENTA Presentation: cephalic Placenta: anterior:posterior previa Previa: complete previa Heart Rate: 165 bpm Amniotic Fluid Volume: normal CLINICAL SUMMARY Study Number: 2 ?? A single fetus is identified in cephalic presentation. ??The amniotic fluid volume is normal. ??The placenta is anterior,posterior previa. ??The patient was advised that ultrasound does not allow detection of all structural or chromosomal abnormalities. IMPRESSION: 1. Single, live, IUP at 33w5d 2. normal amniotic fluid volume RECOMMEND: ??Follow up ultrasound as clinically indicated per inpatient team. Thank you for allowing us the opportunity to care for your patient. cc: ??Inpatient at time of study ? Vlad Monae MD ?<Electronic Signature> ??12/05/2018 04:50pm Procedure Note Lynda Campuzano RN - 12/05/2018 2:05 PM CDT Name: Cait Mathews Date of : 1995 Today's Date: 12/05/2018 Start 1303 Stop 1359 NST RESULTS ([place]) OBJECTIVE FINDINGS Temp: 97.5 ??F (36.4 ??C), Pulse: 77, Resp: 18, BP: 127/85 NST Indication(s): Placenta Previa Uterine Irritability: Yes Contractions: Not present OBJECTIVE FINDINGS Movement: Present Monitoring Mode: External Baseline: 150 BPM Variability: Moderate Decelerations: Variable Accelerations: Yes OTHER INFORMATION Inpatient Interventions: None Lynda Campuzano RN Gabrielle Lui MD [facility] ORDERABLES * NONSTRESS TEST (12/04/2018 10:34 AM CDT) Narrative Candace Peacock MD - 12/04/2018 10:34 AM CDT Lianne Flores MD ? 12/04/2018 10:28 AM Name: ??Cait Mathews Date of : ??1995 Today's Date: ??12/03/2018 Start 1723 Stop 1754 ?NST RESULTS ([place]) OBJECTIVE FINDINGS Temp: 98.1 ??F (36.7 ??C), Pulse: 91, Resp: 18, BP: 125/82 NST Indication(s): Placenta Previa Uterine Irritability: No Contractions: Not present (pt complains of cramping) Duration (sec) Range: 70 Perceived Intensity: ??(denies feeling) OBJECTIVE FINDINGS Movement: Present Monitoring Mode: External Baseline: 145 BPM Variability: Moderate Decelerations: Variable Accelerations: Yes OTHER INFORMATION Inpatient Interventions: None Lynda Campuzano RN Non-Stress Test Indications: Patient Active Problem List: ?? Tobacco abuse ?? Supervision of high risk , antepartum ?? Hx of preeclampsia, prior , currently ?? Previous delivery, antepartum condition or complication ?? Previous delivery, antepartum ?? Obesity affecting in third trimester ?? Cellulitis ?? Child attention deficit disorder ?? Depressive disorder ?? 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 Dysmenorrhea ?? Ganglion and cyst of synovium, tendon and bursa ?? Gastroesophageal reflux disease ?? Hyperhidrosis ?? Obesity (BMI 30-39.9) ?? Placenta previa without hemorrhage, antepartum ?? Abnormal O'Cartwright glucose challenge test, antepartum ?? Evaluate anatomy not seen on prior sonogram ?? Vaginal bleeding in , second trimester ?? Vaginal bleeding during , antepartum ?? Vaginal bleeding Interpretation: Baseline: ??145 beats/minute moderate variability Reactive Contractions: ??none Decelerations: ??none FWB reassuring, continue monitoring as scheduled. Lianne Flores MD 12/04/2018 10:27 AM Lianne Flores MD [facility] ORDERABLES * NONSTRESS TEST (12/04/2018 10:34 AM CDT) Narrative Candace Peacock MD - 12/04/2018 10:34 AM CDT Lianne Flores MD ? 12/04/2018 10:27 AM Name: ??Cait Mathews Date of : ??1995 Today's Date: ??12/03/2018 ? Start: ??1436 ? Stop: ??1520 ?NST RESULTS ([place]) OBJECTIVE FINDINGS , ??, ??, ?? NST Indication(s): Placenta Previa Uterine Irritability: No Contractions: ??(rare) Duration (sec) Range: 70 Perceived Intensity: ??(denies feeling) OBJECTIVE FINDINGS Movement: Present Monitoring Mode: External Baseline: 135 BPM Variability: Moderate Decelerations: Variable Accelerations: Yes OTHER INFORMATION Inpatient Interventions: None Charlene Storm RN Non-Stress Test Indications: Patient Active Problem List: ?? Tobacco abuse ?? Supervision of high risk , antepartum ?? Hx of preeclampsia, prior , currently ?? Previous delivery, antepartum condition or complication ?? Previous delivery, antepartum ?? Obesity affecting in third trimester ?? Cellulitis ?? Child attention deficit disorder ?? Depressive disorder ?? 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 Dysmenorrhea ?? Ganglion and cyst of synovium, tendon and bursa ?? Gastroesophageal reflux disease ?? Hyperhidrosis ?? Obesity (BMI 30-39.9) ?? Placenta previa without hemorrhage, antepartum ?? Abnormal O'Cartwright glucose challenge test, antepartum ?? Evaluate anatomy not seen on prior sonogram ?? Vaginal bleeding in , second trimester ?? Vaginal bleeding during , antepartum ?? Vaginal bleeding Interpretation: Baseline: ??130 beats/minute moderate variability Reactive Contractions: ??none Decelerations: ??none FWB reassuring, continue monitoring as scheduled. Lianne Flores MD 12/04/2018 10:27 AM Lianne Flores MD [facility] ORDERABLES * NONSTRESS TEST (12/04/2018 10:33 AM CDT) Narrative Candace Peacock MD - 12/04/2018 10:33 AM CDT Lianne Folres MD ? 12/03/2018 ??8:04 AM Name: ??Cait Mathews Date of : ??1995 Today's Date: ??12/02/2018 ?Start: ??1406 ?Stop: ??1510 ?NST RESULTS ([place]) OBJECTIVE FINDINGS Temp: 98.3 ??F (36.8 ??C), Pulse: 96, Resp: 20, BP: 124/78 NST Indication(s): Placenta Previa Uterine Irritability: No Contractions: Not present OBJECTIVE FINDINGS Movement: Present Monitoring Mode: External Baseline: 145 BPM Variability: Moderate Decelerations: Variable Accelerations: Yes OTHER INFORMATION Inpatient Interventions: None Charlene Storm RN Non-Stress Test Indications: Patient Active Problem List: ?? Tobacco abuse ?? Supervision of high risk , antepartum ?? Hx of preeclampsia, prior , currently ?? Previous delivery, antepartum condition or complication ?? Previous delivery, antepartum ?? Obesity affecting in third trimester ?? Cellulitis ?? Child attention deficit disorder ?? Depressive disorder ?? 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 Dysmenorrhea ?? Ganglion and cyst of synovium, tendon and bursa ?? Gastroesophageal reflux disease ?? Hyperhidrosis ?? Obesity (BMI 30-39.9) ?? Placenta previa without hemorrhage, antepartum ?? Abnormal O'Cartwright glucose challenge test, antepartum ?? Evaluate anatomy not seen on prior sonogram ?? Vaginal bleeding in , second trimester ?? Vaginal bleeding during , antepartum ?? Vaginal bleeding Interpretation: Baseline: ??150 beats/minute moderate variability Reactive Contractions: ??none Decelerations: ??none FWB reassuring, continue monitoring as scheduled. Lianne Flores MD 12/03/2018 8:04 AM Gerri Foreman MD [facility] ORDERABLES * NONSTRESS TEST (12/04/2018 10:33 AM CDT) Narrative Candace Peacock MD - 12/04/2018 10:33 AM CDT Lianne Flores MD ? 12/01/2018 ??8:35 AM Name: ??Cait Mathews Date of : ??1995 Today's Date: ??11/30/2018 ? Start: ?? 0833 ?Stop: ??910 ?NST RESULTS ([place]) OBJECTIVE FINDINGS Temp: 97.8 ??F (36.6 ??C), Pulse: 62, Resp: 18, BP: 134/74 NST Indication(s): Placenta Previa Uterine Irritability: No Contractions: Not present OBJECTIVE FINDINGS Movement: Present Monitoring Mode: External Baseline: 135 BPM Variability: Moderate Decelerations: None Accelerations: Yes OTHER INFORMATION Inpatient Interventions: None Charlene Storm RN Non-Stress Test Indications: Patient Active Problem List: ?? Tobacco abuse ?? Supervision of high risk , antepartum ?? Hx of preeclampsia, prior , currently ?? Previous delivery, antepartum condition or complication ?? Previous delivery, antepartum ?? Obesity affecting in third trimester ?? Cellulitis ?? Child attention deficit disorder ?? Depressive disorder ?? 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 Dysmenorrhea ?? Ganglion and cyst of synovium, tendon and bursa ?? Gastroesophageal reflux disease ?? Hyperhidrosis ?? Obesity (BMI 30-39.9) ?? Placenta previa without hemorrhage, antepartum ?? Abnormal O'Cartwright glucose challenge test, antepartum ?? Evaluate anatomy not seen on prior sonogram ?? Vaginal bleeding in , second trimester ?? Vaginal bleeding during , antepartum ?? Vaginal bleeding Interpretation: Baseline: ??135 beats/minute moderate variability Reactive Contractions: ??none Decelerations: ??none FWB reassuring, continue monitoring as scheduled. Lianne Flores MD 12/01/2018 8:34 AM Gerri Foreman MD [facility] ORDERABLES * NONSTRESS TEST (12/04/2018 10:32 AM CDT) Narrative Candace Peacock MD - 12/04/2018 10:32 AM CDT Lianne Flores MD ? 11/30/2018 ??6:34 AM Name: ??Cait Mathews Date of : ??1995 Today's Date: ??11/29/2018 ?Start: ?? 1558 ?Stop: ?? 1623 ?NST RESULTS ([place]LEY) OBJECTIVE FINDINGS Temp: 98.2 ??F (36.8 ??C), Pulse: 77, Resp: 20, BP: 123/79 NST Indication(s): Placenta Previa Uterine Irritability: No Contractions: Not present OBJECTIVE FINDINGS Movement: Present Monitoring Mode: External Baseline: 150 BPM Variability: Moderate Decelerations: Variable Accelerations: Yes OTHER INFORMATION Inpatient Interventions: None Charlene Storm, FLEX Non-Stress Test Indications: Patient Active Problem List: ?? Tobacco abuse ?? Supervision of high risk , antepartum ?? Hx of preeclampsia, prior , currently ?? Previous delivery, antepartum condition or complication ?? Previous delivery, antepartum ?? Obesity affecting in third trimester ?? Cellulitis ?? Child attention deficit disorder ?? Depressive disorder ?? 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 Dysmenorrhea ?? Ganglion and cyst of synovium, tendon and bursa ?? Gastroesophageal reflux disease ?? Hyperhidrosis ?? Obesity (BMI 30-39.9) ?? Placenta previa without hemorrhage, antepartum ?? Abnormal O'Cartwright glucose challenge test, antepartum ?? Evaluate anatomy not seen on prior sonogram ?? Vaginal bleeding in , second trimester ?? Vaginal bleeding during , antepartum ?? Vaginal bleeding Interpretation: Baseline: ??150 beats/minute moderate variability Reactive Contractions: ??none Decelerations: ??none FWB reassuring, continue monitoring as scheduled. Lianne Flores MD 11/30/2018 6:33 AM Gerri Foreman MD [facility] ORDERABLES * NONSTRESS TEST (12/04/2018 10:32 AM CDT) Narrative Candace Peacock MD - 12/04/2018 10:32 AM CDT Lianne Flores MD ? 11/30/2018 ??6:34 AM Name: ??Cait Mathews Date of : ??1995 Today's Date: ??11/29/2018 ?Start: ??1009 ?Stop: ??1051 ?NST RESULTS ([place]) OBJECTIVE FINDINGS Temp: 98.6 ??F (37 ??C), Pulse: 72, Resp: 18, BP: 131/83 NST Indication(s): Placenta Previa Uterine Irritability: Yes Contractions: ??(rare) Duration (sec) Range: 50 OBJECTIVE FINDINGS Movement: Present Monitoring Mode: External Baseline: 145 BPM Variability: Moderate Decelerations: None Accelerations: Yes OTHER INFORMATION Inpatient Interventions: None Charlene Storm RN Non-Stress Test Indications: Patient Active Problem List: ?? Tobacco abuse ?? Supervision of high risk , antepartum ?? Hx of preeclampsia, prior , currently ?? Previous delivery, antepartum condition or complication ?? Previous delivery, antepartum ?? Obesity affecting in third trimester ?? Cellulitis ?? Child attention deficit disorder ?? Depressive disorder ?? 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 Dysmenorrhea ?? Ganglion and cyst of synovium, tendon and bursa ?? Gastroesophageal reflux disease ?? Hyperhidrosis ?? Obesity (BMI 30-39.9) ?? Placenta previa without hemorrhage, antepartum ?? Abnormal O'Cartwright glucose challenge test, antepartum ?? Evaluate anatomy not seen on prior sonogram ?? Vaginal bleeding in , second trimester ?? Vaginal bleeding during , antepartum ?? Vaginal bleeding Interpretation: Baseline: ??150 beats/minute moderate variability Reactive Contractions: ??none Decelerations: ??none FWB reassuring, continue monitoring as scheduled. Lianne Flores MD 11/30/2018 6:34 AM Gerri Foreman MD [facility] ORDERABLES * NONSTRESS TEST (12/02/2018 9:51 AM CDT) Narrative Candace Peacock MD - 12/02/2018 9:51 AM CDT Lianne Flores MD ? 12/02/2018 ??6:52 AM Name: ??Cait Mathews Date of : ??1995 Today's Date: ??12/01/2018 Start: 1300 Stop: 1348 ?NST RESULTS ([place]) OBJECTIVE FINDINGS Temp: 98 ??F (36.7 ??C), Pulse: 73, Resp: 20, BP: 128/77 NST Indication(s): Placenta Previa Uterine Irritability: No Contractions: Irregular (x1) OBJECTIVE FINDINGS Movement: Present Monitoring Mode: External Baseline: 140 BPM Variability: Moderate Decelerations: Variable Accelerations: Yes OTHER INFORMATION Inpatient Interventions: None Maria E Farooq RN Non-Stress Test Indications: Patient Active Problem List: ?? Tobacco abuse ?? Supervision of high risk , antepartum ?? Hx of preeclampsia, prior , currently ?? Previous delivery, antepartum condition or complication ?? Previous delivery, antepartum ?? Obesity affecting in third trimester ?? Cellulitis ?? Child attention deficit disorder ?? Depressive disorder ?? 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 Dysmenorrhea ?? Ganglion and cyst of synovium, tendon and bursa ?? Gastroesophageal reflux disease ?? Hyperhidrosis ?? Obesity (BMI 30-39.9) ?? Placenta previa without hemorrhage, antepartum ?? Abnormal O'Cartwright glucose challenge test, antepartum ?? Evaluate anatomy not seen on prior sonogram ?? Vaginal bleeding in , second trimester ?? Vaginal bleeding during , antepartum ?? Vaginal bleeding Interpretation: Baseline: ??150 beats/minute moderate variability Reactive Contractions: ??one Decelerations: ??none FWB reassuring, continue monitoring as scheduled. Lianne Flores MD 12/02/2018 6:51 AM Gerri Foreman MD [facility] ORDERABLES * NONSTRESS TEST (11/29/2018 10:24 PM CDT) Narrative Candace Peacock MD - 11/29/2018 10:24 PM CDT Lianne Flores MD ? 11/29/2018 ??9:44 AM Name: ??Cait Mathews Date of : ??1995 Today's Date: ??11/29/2018 ?? Start: 2355 Stop: 48 ?NST RESULTS ([place]) OBJECTIVE FINDINGS Temp: 98.1 ??F (36.7 ??C), Pulse: 99, Resp: 18, BP: 121/65 NST Indication(s): Placenta Previa Uterine Irritability: Yes Contractions: Not present OBJECTIVE FINDINGS Movement: Present Monitoring Mode: External Baseline: 160 BPM (changes to 140 at 0016) Variability: Moderate Decelerations: None Accelerations: Yes OTHER INFORMATION Martha Pineda RN Non-Stress Test Indications: Patient Active Problem List: ?? Tobacco abuse ?? Supervision of high risk , antepartum ?? Hx of preeclampsia, prior , currently ?? Previous delivery, antepartum condition or complication ?? Previous delivery, antepartum ?? Obesity affecting in third trimester ?? Cellulitis ?? Child attention deficit disorder ?? Depressive disorder ?? 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 Dysmenorrhea ?? Ganglion and cyst of synovium, tendon and bursa ?? Gastroesophageal reflux disease ?? Hyperhidrosis ?? Obesity (BMI 30-39.9) ?? Placenta previa without hemorrhage, antepartum ?? Abnormal O'Cartwright glucose challenge test, antepartum ?? Evaluate anatomy not seen on prior sonogram ?? Vaginal bleeding in , second trimester ?? Vaginal bleeding during , antepartum ?? Vaginal bleeding Interpretation: Baseline: ??130 beats/minute moderate variability Reactive Contractions: ??none Decelerations: ??none FWB reassuring, continue monitoring as scheduled. Lianne Flores MD 11/29/2018 9:44 AM Gerri Foreman MD [facility] ORDERABLES * NONSTRESS TEST (11/29/2018 10:24 PM CDT) Narrative Candace Peacock MD - 11/29/2018 10:24 PM CDT Lianne Flores MD ? 11/29/2018 ??9:45 AM Name: ??Cait Mathews Date of : ??1995 Today's Date: ??11/28/2018 Start: 1738 End: 0 ?NST RESULTS (STANLEY) OBJECTIVE FINDINGS , Pulse: 89, Resp: 18, BP: 154/79 NST Indication(s): Placenta Previa Uterine Irritability: Yes Contractions: Not present Frequency: 0 Duration (sec) Range: 0 OBJECTIVE FINDINGS Movement: Present Monitoring Mode: External Baseline: 150 BPM Variability: Moderate Decelerations: Variable Accelerations: Yes OTHER INFORMATION Marci Mejia RN Non-Stress Test Indications: Patient Active Problem List: ?? Tobacco abuse ?? Supervision of high risk , antepartum ?? Hx of preeclampsia, prior , currently ?? Previous delivery, antepartum condition or complication ?? Previous delivery, antepartum ?? Obesity affecting in third trimester ?? Cellulitis ?? Child attention deficit disorder ?? Depressive disorder ?? 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 Dysmenorrhea ?? Ganglion and cyst of synovium, tendon and bursa ?? Gastroesophageal reflux disease ?? Hyperhidrosis ?? Obesity (BMI 30-39.9) ?? Placenta previa without hemorrhage, antepartum ?? Abnormal O'Cartwright glucose challenge test, antepartum ?? Evaluate anatomy not seen on prior sonogram ?? Vaginal bleeding in , second trimester ?? Vaginal bleeding during , antepartum ?? Vaginal bleeding Interpretation: Baseline: ??150 beats/minute moderate variability Reactive Contractions: ??Some irritability, no clear contractions Decelerations: ??none FWB reassuring, continue monitoring as scheduled. Lianne Flores MD 11/29/2018 9:45 AM Gerri Foreman MD OB GYNE ORDERABLES * NONSTRESS TEST (11/29/2018 10:23 PM CDT) Narrative Candace Peacock MD - 11/29/2018 10:23 PM CDT Lianne Flores MD ? 11/29/2018 ??9:46 AM Name: ??Cait Mathews Date of : ??1995 Today's Date: ??11/28/2018 Start: 1020 End: 1058 ?NST RESULTS (STANLEY) OBJECTIVE FINDINGS Temp: 98 ??F (36.7 ??C), Pulse: 77, Resp: 18, BP: 131/84 NST Indication(s): Placenta Previa Uterine Irritability: No Contractions: Not present Frequency: 0 Duration (sec) Range: 0 OBJECTIVE FINDINGS Movement: Present Monitoring Mode: External Baseline: 140 BPM Variability: Moderate Decelerations: Variable Accelerations: Yes OTHER INFORMATION Marci Mejia RN Non-Stress Test Indications: Patient Active Problem List: ?? Tobacco abuse ?? Supervision of high risk , antepartum ?? Hx of preeclampsia, prior , currently ?? Previous delivery, antepartum condition or complication ?? Previous delivery, antepartum ?? Obesity affecting in third trimester ?? Cellulitis ?? Child attention deficit disorder ?? Depressive disorder ?? 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 Dysmenorrhea ?? Ganglion and cyst of synovium, tendon and bursa ?? Gastroesophageal reflux disease ?? Hyperhidrosis ?? Obesity (BMI 30-39.9) ?? Placenta previa without hemorrhage, antepartum ?? Abnormal O'Cartwright glucose challenge test, antepartum ?? Evaluate anatomy not seen on prior sonogram ?? Vaginal bleeding in , second trimester ?? Vaginal bleeding during , antepartum ?? Vaginal bleeding Interpretation: Baseline: ??140 beats/minute moderate variability Reactive Contractions: ??none Decelerations: ??none FWB reassuring, continue monitoring as scheduled. Lianne Flores MD 11/29/2018 9:46 AM Gerri Foreman MD OB GYNE ORDERABLES * NONSTRESS TEST (11/28/2018 9:19 PM CDT) Narrative Candace Peacock MD - 11/28/2018 9:19 PM CDT Lianne Flores MD ? 11/28/2018 ??7:40 AM NST Start:11-27-182231 Stop:11-27-182314 Name: ??Cait Mathews Date of : ??1995 Today's Date: ??11/28/2018 ?? NST RESULTS (STANLEY) OBJECTIVE FINDINGS Temp: 98.2 ??F (36.8 ??C), Pulse: 70, Resp: 16, BP: 141/82 NST Indication(s): Placenta Previa Uterine Irritability: Yes Contractions: Not present ?? OBJECTIVE FINDINGS Movement: Present Monitoring Mode: External Baseline: 150 BPM Variability: Moderate Decelerations: None Accelerations: Yes OTHER INFORMATION Inpatient Interventions: None Elizabeth Machuca RN Non-Stress Test Indications: Patient Active Problem List: ?? Tobacco abuse ?? Supervision of high risk , antepartum ?? Hx of preeclampsia, prior , currently ?? Previous delivery, antepartum condition or complication ?? Previous delivery, antepartum ?? Obesity affecting in third trimester ?? Cellulitis ?? Child attention deficit disorder ?? Depressive disorder ?? 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 Dysmenorrhea ?? Ganglion and cyst of synovium, tendon and bursa ?? Gastroesophageal reflux disease ?? Hyperhidrosis ?? Obesity (BMI 30-39.9) ?? Placenta previa without hemorrhage, antepartum ?? Abnormal O'Cartwright glucose challenge test, antepartum ?? Evaluate anatomy not seen on prior sonogram ?? Vaginal bleeding in , second trimester ?? Vaginal bleeding during , antepartum ?? Vaginal bleeding Interpretation: Baseline: ??150 beats/minute moderate variability Reactive Contractions: ??none Decelerations: ??none FWB reassuring, continue monitoring as scheduled. Lianne Flores MD 11/28/2018 7:40 AM Gerri Foreman MD OB GYNE ORDERABLES * BLOOD TYPE VERIFICATION (11/28/2018 3:34 AM CDT) Only the most recent of2 resultswithin the time period is included. ABO B 11/28/2018 6:03 AM CDT [facility] Rh Type Positive 11/28/2018 6:03 AM CDT [facility] Blood Bank BLOOD SPECIMEN / Unknown Lab Venipuncture / Unknown 11/28/2018 3:34 AM CDT 11/28/2018 5:32 AM CDT Gely Medina MD LAB - BLOOD BANK OR DERABLES [facility] [address] [phone] * (ABNORMAL) DIFFERENTIAL MANUAL (11/28/2018 3:34 AM CDT) WBC Auto 13.7 x10E9/L 11/28/2018 4:46 AM CDT [facility] WBC Corrected 4.4 - 10.7 x10E9/L 11/28/2018 4:46 AM CDT [facility] nRBC /100 WBC 11/28/2018 4:46 AM CDT [facility] Neutrophil % Manual 80(H) 44 - 73 % 11/28/2018 4:46 AM CDT [facility] Lymphocytes % Manual 8(L) 20 - 43 % 11/28/2018 4:46 AM T [facility] Monocytes % Manual 1(L) 5 - 13 % 11/28/2018 4:46 AM CDT [facility] Eosinophils % Manual 1 0 - 6 % 11/28/2018 4:46 AM CDT [facility] Atypical Lymphocyte % Manual 4(H) <=0 % 11/28/2018 4:46 AM CDT [facility] Band % Manual 2 0 - 11 % 11/28/2018 4:46 AM CDT [facility] [place] Manual 3(H) <=0 % 11/28/2018 4:46 AM CDT [facility] Myelocytes % Manual 1(H) <=0 % 11/28/2018 4:46 AM T [facility] Cells Counted 100 # cells 11/28/2018 4:46 AM CDT [facility] RBC Morphology Normal 11/28/2018 4:46 AM CDT [facility] WBC Morph Normal 11/28/2018 4:46 AM CDT [facility] Platelet Estimation Normal 11/28/2018 4:46 AM CDT [facility] Blood BLOOD SPECIMEN / Unknown Lab Venipuncture / Unknown 11/28/2018 3:34 AM CDT 11/28/2018 4:04 AM CDT Cheryl Tello MD LAB - HEMATOLOGY ORD ERABLES [facility] [address] [place] [address] * NONSTRESS TEST (11/27/2018 7:44 AM CDT) Narrative Amadou Roberts MD - 11/27/2018 7:44 AM CDT Charlene Storm RN ? 11/26/2018 10:57 AM ??Name: ??Cait Mathews Date of : ??1995 Today's Date: ??11/26/2018 ?Start: ??956 ?Stop: ??1031 ?NST RESULTS (STANLEY) OBJECTIVE FINDINGS Temp: 98.1 ??F (36.7 ??C), ??, Resp: 20, BP: 122/71 NST Indication(s): Placenta Previa, Vaginal bleeding Uterine Irritability: No Contractions: Not present OBJECTIVE FINDINGS Movement: Present Monitoring Mode: External Baseline: 130 BPM Variability: Moderate Decelerations: None Accelerations: Yes OTHER INFORMATION Inpatient Interventions: None Charlene Storm RN ? Vijaya Ashton MD OB GYNE ORDERABLES * NONSTRESS TEST (11/27/2018 7:44 AM CDT) Narrative Amadou Roberts MD - 11/27/2018 7:44 AM CDT Charlene Storm RN ? 11/26/2018 ??2:27 PM Name: ??Cait Mathews Date of : ??1995 Today's Date: ??11/26/2018 ??c/o severe abdominal pain ?Start: ??1125 ?Stop: ?? 1259 ?NST RESULTS (STANLEY) OBJECTIVE FINDINGS , ??, ??, BP: 146/88 NST Indication(s): Placenta Previa, Vaginal bleeding Uterine Irritability: No Contractions: Not present OBJECTIVE FINDINGS Movement: Present Monitoring Mode: External Baseline: 135 BPM Variability: Moderate Decelerations: None Accelerations: Yes OTHER INFORMATION Inpatient Interventions: None Charlene Storm RN Gerri Foreman MD OB GYNE ORDERABLES * NONSTRESS TEST (11/27/2018 7:44 AM CDT) Narrative Amadou Roberts MD - 11/27/2018 7:44 AM CDT Charlene Storm RN ? 11/26/2018 ??6:11 PM Name: ??Cait Mathews Date of : ??1995 Today's Date: ??11/26/2018 ?Start: ??1649 ?Stop: ??1730 ?NST RESULTS (STANLEY) OBJECTIVE FINDINGS Temp: 98.9 ??F (37.2 ??C), ??, Resp: 20, BP: 126/64 NST Indication(s): Placenta Previa, Vaginal bleeding Uterine Irritability: No Contractions: Not present OBJECTIVE FINDINGS Movement: Present Monitoring Mode: External Baseline: 145 BPM Variability: Moderate Decelerations: None Accelerations: Yes OTHER INFORMATION Inpatient Interventions: None Charlene Storm RN Gerri Foreman MD OB GYNE ORDERABLES * NONSTRESS TEST (11/27/2018 7:43 AM CDT) Narrative Amadou Roberts MD - 11/27/2018 7:43 AM CDT Elizabeth Machuca RN ? 11/26/2018 11:57 PM NST Start:11-26-18; 2238 Stop:11-26-182311 Name: ??Cait Mathews Date of : ??1995 Today's Date: ??11/26/2018 ?? NST RESULTS (STANLEY) OBJECTIVE FINDINGS Temp: 98 ??F (36.7 ??C), Pulse: 98, Resp: 16, BP: 119/63 NST Indication(s): Placenta Previa Uterine Irritability: Yes Contractions: Not present OBJECTIVE FINDINGS Movement: Present Monitoring Mode: External Baseline: 140 BPM Variability: Moderate Decelerations: None Accelerations: Yes OTHER INFORMATION Inpatient Interventions: None Elizabeth Machuca RN Gerri Foreman MD OB GYNE ORDERABLES * IMAGING/RADIOLOGY/XRAY RESULTS ORDER (11/07/2018 5:50 PM CDT) Only the most recent of3 resultswithin the time period is included. Anatomical Region Laterality Modality Other Narrative 11/07/2018 5:50 PM CDT Ordered by an unspecified provider. Scanned Document IMAGING * NON-STRESS TEST (11/05/2018 12:54 PM CDT) Anatomical Region Laterality Modality Other Narrative 11/05/2018 12:54 PM CDT Candis Navarrete RN ? 11/05/2018 12:54 PM Name: ??Cait Mathews Date of : ??1995 Today's Date: ??11/05/2018 ?NST RESULTS (STANLEY) OBJECTIVE FINDINGS Temp: 97.9 ??F (36.6 ??C), Pulse: 94, Resp: 18, BP: 128/82 NST Indication(s): Placenta Previa Uterine Irritability: No Contractions: Irregular Frequency: x2 Duration (sec) Range: 50 Perceived Intensity: ??(pt did not feel) OBJECTIVE FINDINGS Movement: Present Monitoring Mode: External Baseline: 145 BPM Variability: Moderate Decelerations: None Accelerations: Yes OTHER INFORMATION Comments: OK to d/c per Dr. Yañez Inpatient Interventions: None Start: 1015 Stop: 1046 Candis Navarrete, RN Deepa Chaudhry [employer] CAR UPHOLSTERER APPRENTICE [facility] ORDERABLE S * ANTIBODY SCREEN (11/03/2018 5:43 AM CDT) Antibody Screen Negative 11/03/2018 7:43 AM CDT [facility] Blood Bank BLOOD SPECIMEN / Unknown Venipuncture / Unknown 11/03/2018 5:43 AM CDT 11/03/2018 5:49 AM CDT Lianne Flores MD LAB - BLOOD BANK ORD ERABLES Performing Organization Address City/[facility]/ZIP Co de Phone Number [facility] [address] [place] [address], [facility] [phone] * CHLAMYDIA + GC AMPLIFIED PROBE (11/03/2018 4:49 AM CDT) Only the most recent of2 resultswithin the time period is included. [facility] Chlamydia Amplified Probe Negative Negative 11/03/2018 12:21 PM CDT [facility] GC Amplified Probe Negative Negative 11/03/2018 12:21 PM CDT [facility] Other PART OF UTERINE CERVIX / Unknown Collection / Unknown 11/03/2018 4:49 AM CDT 11/03/2018 4:54 AM CDT Narrative [facility] - 11/03/2018 12:21 PM CDT Results based on detection/no detection of ribosomal RNA by amplified method. Sara Duran MD LAB - MICROBIOLOGY O RDERABLES [facility] [address] [place] [address], [facility] [phone] * TRICHOMONAS RAPID TEST (11/03/2018 4:48 AM CDT) Pathologist [facility] Trichomonas Rapid Test Negative Negative 11/03/2018 5:13 AM CDT [facility] Microbiology VAGINAL SWAB / Unknown Collection / Unknown 11/03/2018 4:48 AM CDT 11/03/2018 4:54 AM CDT Sara Duran MD LAB - MICROBIOLOGY O RDERABLES Performing Organization Address [facility] Co de Phone Number [facility] [address] [place], [place] [phone] * SYPHILIS ANTIBODY CASCADING REFLEX (10/27/2018 10:03 AM CDT) Treponema pallidum Antibody Non Reactive Non Reactive 10/27/2018 12:17 PM CDT [facility] Comment: No Laboratory evidence of syphilis infection. ?? Note: ??Circulating antibodies may be low or undetectable in early infection. ??If recent exposure is suspected, re-draw sample in 2-4 weeks and repeat testing. Blood BLOOD SPECIMEN / Unknown Venipuncture / Unknown 10/27/2018 10:03 AM CDT 10/27/2018 11:20 AM CDT Silvestre Silverman MD LAB - SEROLOGY ORDER MITUL Performing Organization Address [facility] Co de Phone Number [facility] [address] [place], [place] [phone] * HIV-1 HIV-2 ANTIBODY + HIV P24 AG PANEL (10/27/2018 10:03 AM CDT) HIV1/2 Ab + P24 Ag Non Reactive Non Reactive 10/27/2018 12:16 PM CDT [facility] Blood BLOOD SPECIMEN / Unknown Venipuncture / Unknown 10/27/2018 10:03 AM CDT 10/27/2018 11:20 AM CDT Narrative [facility] - 10/27/2018 12:16 PM CDT No Laboratory evidence of HIV infection. Georgette Felton MD LAB - CHEMISTRY SU MCKENZIE Performing Organization Address [facility] Co de Phone Number [facility] [address] [place], [place] [phone] * GLUCOSE PROTEIN KETONE URINE - POINT OF CARE (10/27/2018 9:03 AM CDT) Only the most recent of4 resultswithin the time period is included. Glucose UA neg Negative [facility] TEST[facility] Protein UA neg Negative [facility] Ketone UA neg Negative [facility] POCT TEST[facility] QC Verified Yes Yes [facility] POC T TESTING Urine URINE / Unknown 10/27/2018 9 :03 AM CDT Perla Vásquez MD LAB - POINT OF CARE ORDERABLES Performing Organization Address City/[facility]/ZIP Co de Phone Number [facility] [address] [place] [address] * (ABNORMAL) GTT 3 HR (100G) GESTATIONAL DIAGNOSTIC (10/06/2018 11:01 AM CDT) Glucose Dose Gestational 100 gm 10/06/2018 12:22 PM CDT [facility] Gestational GTT Fasting 97(H) 50-<95 mg/dL 10/06/2018 12:22 PM CDT [facility] Gestational GTT 1 HR 167 50-<180 mg/dL 10/06/2018 12:22 PM CDT [facility] Gestational GTT 2 HR 121 50-<155 mg/dL 10/06/2018 12:22 PM CDT [facility] Gestational GTT 3 HR 138 50-<140 mg/dL 10/06/2018 12:22 PM CDT [facility] Blood BLOOD SPECIMEN / Unknown Venipuncture / Unknown 10/06/2018 11:01 AM CDT 10/06/2018 8:09 AM CDT Reema Moreno MD LAB - CHEMISTRY O RDERABLES [facility] [address] [place] [address] * (ABNORMAL) GLUCOSE CHALLENGE (09/25/2018 3:51 PM CDT) Glucose Challenge 147(H) 64 - 140 mg/dL 09/25/2018 5:23 PM CDT [facility] Glucose Challenge Time 09/25/2018 5:23 PM CDT [facility] Blood BLOOD SPECIMEN / Unknown Lab Venipuncture / Unknown 09/25/2018 3:51 PM CDT 09/25/2018 4:49 PM CDT Luciana Yañez DO LAB - CHEMISTRY OR DERABLES [facility] [address] [place] [address] * URINALYSIS - POCT (IP) NOTIFICATION (09/25/2018 3:34 PM CDT) Pathologist [facility] Comment Notification Label Only - See Separate Report 09/25/2018 5:00 PM CDT [facility] Urine URINE / Unknown 09/25/2018 3 :34 PM CDT 09/25/2018 3:34 PM CDT Pat Sánchez MD LAB - URINALYSIS ORD ERABLES Performing Organization Address City/[facility]/ZIP Co de Phone Number [facility] [address] [place] [address] * PANORAMA TEST (08/01/2018) Pathologist [facility] Trisomy 21 Low Risk Trisomy 18 Low Risk Trisomy 13 Low Risk Monosomy X Low Risk Triploidy/Gayle shing Twin NIPT Low Risk Blood BLOOD SPECIMEN / Unknown 08/01/2018 Narrative Annette Love, PhD - 08/06/2018 Predicted Sex: female Fraction: 13.5% Panorama - Yevgeniy Screen Hard copy results are scanned under Media. Lynda Valerio MD LAB - CHEMISTRY SU [place]CKENZIE * (ABNORMAL) STREP A SCREEN - POINT OF CARE (AMB) STL (10/14/2016 12:20 PM CDT) Pathologist [facility] Strep A Rapid POCT Positive(A) Negative Strep A Internal Control Present Lot # [id number] Expiration Date [id number] Throat ENTIRE THROAT (SURFACE REGION OF NECK) / Unknown 10/14/2016 12:20 PM CDT Rachel Anderson [employer]PASSEN[employer] CAR UPHOLSTERER APPRENTICE LAB - POINT O F CARE ORDERABLES * (ABNORMAL) BLOOD GASES CORD CHAU (ISTAT) (11/17/2013 3:58 PM CDT) Blood CORD BLOOD SPECIMEN / Unknown 11/17/2013 3:58 PM CDT 11/17/2013 4:04 PM CDT Viet Marquez MD LAB - POINT OF CARE ORDERABLES Performing Organization Address City/[facility]/ZIP Co de Phone Number [facility] [address] [place] [address] * (ABNORMAL) BLOOD GASES CORD ART (ISTAT) (11/17/2013 3:53 PM CDT) pH Cord Arterial POCT 7.25 7.20 - 7.34 pH 11/19/2013 10:52 AM CDT [facility] pCO2 Cord Arterial POCT 57.0(H) 45 - 55 mmHg 11/19/2013 10:52 AM CDT [facility] pO2 Cord Arterial POCT 9(L) 12 - 25 mmHg 11/19/2013 10:52 AM CDT [facility] HCO3 Cord Arterial POCT 24.8 15 - 29 mmol/L 11/19/2013 10:52 AM CDT [facility] BE Cord Arterial POCT -4(L) -2.9 - 8.3 mmol/L 11/19/2013 10:52 AM CDT [facility] TCO2 Cord Arterial POCT 27 mmol/L 11/19/2013 10:52 AM CDT [facility] O2 Saturation Cord Art % Calc POCT 7 % 11/19/2013 10:52 AM CDT [facility] Site CORD ART 11/19/2013 10:52 AM CDT [facility] Sample iSTAT CORD A 11/19/2013 10:52 AM CDT [facility] Blood CORD BLOOD SPECIMEN / Unknown 11/17/2013 3:53 PM CDT 11/19/2013 10:52 AM CDT Viet Marquez MD LAB - POINT OF CARE ORDERABLES Performing Organization Address City/[facility]/ZIP Co de Phone Number [facility] [address] [place] [phone] * NEURAXIAL BLOCK (11/17/2013 3:34 PM CDT) Narrative Dionne JulianNATE - 11/17/2013 3:34 PM CDT Dionne JulianNATE ? 11/17/2013 ??3:34 PM NEURAXIAL BLOCK Patient Location: ??OB Pre Procedure Indication: ??surgical anesthesia Anticoagulation /Antithrombosis Status Confirmed: Yes Preanesthetic Checklist: ??patient identified, IV checked, site marked, risks and benefits discussed, surgical consent verified, monitors and equipment checked, pre-op evaluation done, timeout performed, informed consent obtained and questions answered / anesthesia plan accepted Monitors: ??BP and Pulse Ox Patient Condition: ??awake Patient Position: ??sitting Procedure Block Performed: ??spinal Prep: ??Betadine Sterile Field: ??mask, cap/hat, sterile field established and sterile gloves Approach: ??midline Skin Numbed with: ??lidocaine 1% Spinal Needle Type: ??pencil-point Needle Gauge: ??25 G Needle Length: ??3.5 in Placement Site: ??L3-4 Number of Attempts: ??1 CSF: ??free flow, aspiration before injection, aspiration during injection and aspiration after injection Local Anesthetic: ??bupivacaine 0.75% in dextrose 13.5 mg Spinal Additive: ??0.2 mg ? Events CSF return injection not painful no paresthesia no other event Degree of Difficulty: ??none Position Post Procedure: ??left uterine displacement Vital signs monitored and stable throughout. ??See Anesthesia Intraop record for details. Block Performed by: ??p Eliel MCDUFFIE Notes: ??TO OR #1 SAB x1 free flow CSF all 4 quadrants Viet Marquez MD GENERAL ANESTHESIA O MAHI * (ABNORMAL) PT PTT PANEL (11/14/2013 9:50 PM CDT) PT <9.2(L) 9.4 - 11.4 sec 11/14/2013 10:44 PM CDT [facility] INR <0.860(L) 0.89 - 1.07 11/14/2013 10:44 PM CDT [facility] PTT 24.4 24.0 - 33.0 sec 11/14/2013 10:44 PM CDT [facility] Blood BLOOD SPECIMEN / Unknown Venipuncture / Unknown 11/14/2013 9:50 PM CDT 11/14/2013 10:16 PM CDT Narrative [facility] - 11/14/2013 10:44 PM CDT Conventional Anticoagulant Therapy INR Reference Ranges: ??2.0-3.0 Intensive Anticoagulant Therapy INR Reference Ranges: ? 2.5-3.5 Janessa Morin MD LAB - COAGULATION OR DERABLES Performing Organization Address [facility] Co de Phone Number [facility] [address] [place] [address] * CULTURE STREP B (11/08/2013 10:25 PM CDT) Culture Negative for Beta Hemolytic Streptococcus Group B 11/12/2013 11:11 AM CDT [facility] Microbiology ENTIRE PERIRECTAL REGION / Unknown Collection / Unknown 11/08/2013 10:25 PM CDT 11/08/2013 11:06 PM CDT Gertrudis Thompson MD LAB - MICROBIOLOGY O RDERABLES Performing Organization Address [facility] de Phone Number [facility] [address] * (ABNORMAL) URIC ACID BLOOD (11/08/2013 8:47 PM CDT) Uric Acid 6.6(H) 2.5 - 6.2 mg/dL 11/08/2013 9:25 PM CDT [facility] Comment: Blood BLOOD SPECIMEN / Unknown Venipuncture / Unknown 11/08/2013 8:47 PM CDT 11/08/2013 8:55 PM CDT Ludwin Menjivar MD LAB - CHEMISTRY SU MCKENZIE Performing Organization Address [facility] Co de Phone Number [facility] [address] [place] [phone] * LDH BLOOD (11/08/2013 8:47 PM CDT) LDH 153 100 - 200 U/L 11/08/2013 9:25 PM CDT [facility] Comment: Blood BLOOD SPECIMEN / Unknown Venipuncture / Unknown 11/08/2013 8:47 PM CDT 11/08/2013 8:55 PM CDT Ludwin Menjivar MD LAB - CHEMISTRY SU [place]ZIE [facility] Organization Address City/State/ZIP Co de Phone Number [facility] [address] [place] [address] * MRI BRAIN WITH AND WITHOUT CONTRAST (03/12/2011 11:39 AM CDT) Anatomical Region Laterality Modality Head Magnetic Resonan ce 03/12/2011 2:06 PM CDT Narrative 03/12/2011 3:35 PM CDT Exam: MRI brain with and without contrast Date: 03/12/2011 Technique: Multiplanar, multisequence with and without contrast ? Contrast: 15 cc gadolinium IV ? The midline structures are central. The ventricles are neither dilated nor displaced. The brain signal intensity with its pierre white matter interface is normal. No diffusion restriction is present. Contrast fails to elucidate an abnormality. Epidermoid cysts are noted within the posterior neck. Diagnosis: Normal brain MRI. D: Juana Major MD Procedure Note Nicolle Guerra MD - 03/12/2011 Exam: MRI brain with and without contrast Date: 03/12/2011 Technique: Multiplanar, multisequence with and without contrast Contrast: 15 cc gadolinium IV The midline structures are central. The ventricles are neither dilated nor displaced. The brain signal intensity with its pierre white matter interface is normal. No diffusion restriction is present. Contrast fails to elucidate an abnormality. Epidermoid cysts are noted within the posterior neck. Diagnosis: Normal brain MRI. D: Juana Major MD Milo Jimenez MD MR ORDERABLES Care Teams School Health Assistant Relationship Specialty Start Date End Date Gala Singh MD [address] [phone] PCP - General 08/02/18
--- OUTSIDE RECORDS SUMMARY | 2024-04-27 17:59 | XMS_ITS | Encounter Summary ---
Author Organization [facility] Address [address] [place], [place] [address] [address] Care Team Providers Care Floors Buffer Name Role Phone Gala Singh MD Primary Care Provider [phone] Encounter Details Date Type Department Care Team (Latest Contact Info) Description 12/14/2022 12:45 PM CDT - 12/14/2022 11:59 PM CDT Hospital Encounter [facility] MATERNAL/ EVALUATION UNIT [address] [place] [address] [address] [place] [address] Lynda Valerio MD [facility] [address] [place] [address] Discharge Disposition: Home or Self Care Social [...] Sign Reading Time Taken Comments Blood Pressure 139/77 12/14/2022 1:01 PM CDT Pulse 84 12/14/2022 1:01 PM CDT Temperature - - Respiratory Rate - - Oxygen Saturation - - Inhaled Oxygen Concentration - - Weight 85.1 kg (187 lb 9.6 oz) 12/14/2022 1:01 P M CDT Height - - Body Mass Index 36.64 12/21/2018 6:14 AM CDT documented in this [...] every 12 hours 120 tablet 3 12/27/2018 oxyCODONE-acetaminophe n (PERCOCET) 5-325 MG tablet Take 1 tablet by mouth every 6 hours as needed for Pain 20 tablet 12/25/2018 Vit-Fe Fumarate-FA ( VITAMIN) 27-0.8 MG tablet Take 1 tablet by mouth once daily Wound Dressings (INTERDRY AG TEXTILE 10 X12') MISC 1 Each by Apply externally route 2 times daily 30 Each 1 01/05/2019 documented as of this encounter H&P Notes * Jose Juan Pedroza MD - 12/14/2022 1:31 PM CDT PGY4 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 She is s/p a C-hyst in 2019 with [facility] and so her OBGYN wanted our opinion on her light vaginal bleeding. She reports a monthly light period. Her hyst was supracervical. She underwent a TVUS earlier today which demonstrated a Complex right ovarian cyst, likely hemorrhagic in nature, measuring 3.1 x 2.9 cm in size. The patient also reports sxs consistent with endometriosis such as painful periods and dyspareunia prior to her hyst. 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 Hx: Pap smears: NILM Last Pap: due today, already has apt with OBGYN O: Vitals: 12/14/22 1301 BP: 139/77 Pulse: 84 Weight: 85.1 kg (187 lb 9.6 oz) Female Genitalia: external genitalia and intoitus normal; vagina and cervix normal by palpation;uterus surgically absent; no adnexal fullness or mass SSE: no VB Assessment/Plan: 27 year old here for 4cm right ovarian cyst and VB s/p supracervical C-Hyst - VB very light and consistent with period, discussed that as she had a supracervical hyst, she maystill have some monthly bleeding during her period - TVUS on 12/14: Complex right ovarian cyst, likely hemorrhagic in nature, measuring 3.1 x 2.9 cm in size with no free fluid in pelvis - cyst likely hemorrhagic vs endometrioma - AVSS, hgb 13.6 on 11/06. Pt asxs - We recommend no further intervention for this chronic problem at this time besides a follow up TVUS in 6months - 1 year. - If pelvic pain develops or patient reports sxs of acute blood loss anemia such as dizziness or light-headedness, she should present to the nearest ED D/w Dr. Teodoro Pedroza MD 12/14/2022 1:31 PM Associated attestation - Lynda Valerio MD - 12/15/2022 12:10 PM CDT I have reviewed the resident???s findings and agree that care for the patient was appropriate and medically necessary. I was immediately available but I did not provide [id number] supervision of the resident with the patient. I confirm the resident has been in the residency program for at least six months. Stable cyst x 2 u/s More likely endometrioma Repeat imaging in 6-12 mo documented in this encounter Plan of Treatment Not on file documented as of this encounter Visit Diagnoses Not on filedocumented in this encounter Care Teams Floors Buffer Relationship Specialty Start Date End Date Gala Singh MD [address] [id number] PCP - General 08/02/18 documented as of this encounter
--- OUTSIDE RECORDS SUMMARY | 2024-04-27 17:59 | XMS_ITS | Encounter Summary ---
Author Organization [facility] Address [address] [place] [address] Care Team Providers Care Filler Shredder Machine Name Role Phone Gala Singh MD Primary Care Provider [phone] Reason for Visit * Reason Comments Establish Care Dizziness Encounter Details Date Type Department Care Team (Late st Contact Info) Description 04/09/2023 1:00 PM HOUSE DESIGNER Office Visit [facility] - ENT [address] [facility], [place] [id number] Darion Wilcox, YOON-MULTIFOCAL LENS INSPECTOR [address] [facility] [address] [place] [address] Dizziness and giddiness (Primary Dx); Generalized anxiety disorder; Bruxism; Impacted cerumen of right ear; Chronic diffuse otitis externa of both ears; Tobacco use disorder Social History Tobacco Use Types Packs/Day Years [...] Comments Blood Pressure 138/87 04/09/2023 1:11 PM HOUSE DESIGNER Pulse 97 04/09/2023 1:11 PM HOUSE DESIGNER Temperature - - Respiratory Rate - - Oxygen Saturation - - Inhaled Oxygen Concentration - - Weight 89.4 kg (197 lb) 04/09/2023 1:11 PM HOUSE DESIGNER Height 157.5 cm (5' 2 ) 04/09/2023 1:11 PM HOUSE DESIGNER Body Mass Index 36.03 04/09/2023 1:11 PM HOUSE DESIGNER documented in this encounter Functional Status Functional [...] No 11/25/2018 documented as of this encounter Patient Instructions * Patient Instructions* Darion Wilcox, PLANT CONTROL AIDE-MULTIFOCAL LENS INSPECTOR - 04/09/2023 1:11 PM HOUSE DESIGNER Thank you for visiting [facility] Otolaryngology - Head & Neck Surgery. We appreciate your confidence in allowing us to participate in your health care. You may receive a survey about your visit with us today. Making our patients happy isn???t just happy talk; it???s ourmission. Please tell us if we made the right impression on you- and how we can serve you better. -Trial conservative measures for bruxism including: warm compresses, clenching awareness, relaxation techniques, jaw massages, jaw stretches, NSAIDs, OTC bite splint or visit Dentist for custom fit bite splint -Avoid q-tips. The importance of aural toilet were discussed in detail with the patient. The patient understands that a barakat aspect of this otologic therapy is keeping the ear dry. The patient will utilize a cotton ball with Vaseline on both sides whenever the ear may get wet and to abstain from swimming. Additionally, they will utilize a humanities department chair for 20-30 seconds on low/medium heat after removing the cotton ball to control any moisture. Follow up in 1 year for cerumen removal Please SAVE the information below, it will assist you when it???s time for you to contact us. To MAKE - CHANGE - CANCEL an office appointment If you become ill, need to be seen before your next scheduled appointment, or need to cancel or reschedule an appointment, please call our office at [phone] Wednesday through Wednesday from 8:00 am to4:30 pm. You can also request a routine appointment through your [employer] account. Prescription Refills Contact your pharmacy to request all refills. The pharmacy will need to fax the request to us at . Please allow a minimum of 48-72 hours for your prescription to be completed. Medical Emergency / After Hours Contact Information If you have a medical emergency, please call 911 or go to the nearest emergency room. For urgent medical calls, which cannot wait until the office opens, please call the medical exchange at and ask the lockstitch tunnel elastic operator to page the ENT physician farm labor contractor. *Caller ID blocking service will need to be turned off for your call to be returned. We also specialize in Hearing Aids, Allergy testing, swallowing disorders, voice problems, cancer diagnosis, and so much more. Visit our website at [email or web address] for information about our practice and an interactive health encyclopedia. E DESIGNER documented in this encounter Progress Notes * Darion Wilcox APRN-CNP - 04/09/2023 1:00 PM CST Images from the original note were not included. HPI 04/09/2023: Chief Complaint: Dizziness and giddiness 27 year old with a h/o Anxiety with panic attacks, MDD, Tobacco Use, Asthma, HTN, Abnormal vaginal bleeding s/p partial hysterectomy, BMI 30-39.9, s/p Tonsillectomy who presents for 1) Dizziness and giddiness 2) Anxiety 3) Right cerumen impaction 4) Bilateral low grade otitis externa 5) Bruxism I had the pleasure of seeing Cait today who reports episodes of dizziness described as spinningand lightheadedness. First began 10/2022 after being told that she has an ovarian cyst which caused stress and anxiety. Occurs with anxiety or panic attacks ~1-2 times weekly. Lasts minutes-days. Associated with nothing. Triggered by stress, quick movements. Has tried antihistamines without improvement. Has been improved some with meclizine but mostly by calming herself down when she feels anxious. Was seen in the ED for vertigo 12/28/[address] and labs. Denies bruxism but reports frequent gum chewing. Uses q-tips daily. Denies associated fluctuating hearing loss, increased tinnitus, aural fullness, N/V, facial pain orlight/sound sensitivity H/o seasonal allergies. Mild. Never been allergy tested. Flonase helps. Denies h/o chronic or recurrent ENT. Denies h/o ENT trauma or surgeries. There is a report of tinnitus. There is not a report of otalgia. No otorrhea. There is not a report of noise exposure. There is not a history of hearing loss in the family. There is not a history of previous ear surgery. 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 Past Medical History: Diagnosis Date ??? Chlamydia contact, treated ??? Depression ??? Ganglion and cyst of synovium, tendon and bursa 08/01/2018 ??? History of asthma Asthma ??? History of sexually transmitted disease ??? Obesity (BMI 30-39.9) ??? Placenta previa ??? Preeclampsia 2013 and 2018 ??? Tobacco use ??? Vasa previa PSH: has a past surgical history that includes tonsillectomy; section (N/A, 11/17/2013); section (12/21/2018); and hysterectomy, total abdominal (N/A, 12/21/2018). Current Outpatient Medications Medication Sig Dispense Refill ??? amoxicillin (AMOXIL) 875 MG tablet Take 875 mg by mouth 2 times daily (Patient not taking: Reported on 12/14/2022) ??? docusate sodium (COLACE) 100 MG capsule Take 1 capsule by mouth 2 times daily (Patient not taking: Reported on 01/05/2019) 60 capsule 1 ??? ibuprofen (MOTRIN) 600 MG tablet Take 1 tablet by mouth every 6 hours as needed for Pain (Patient not taking: Reported on 12/14/2022) 40 tablet 1 ??? labetalol (NORMODYNE; TRANDATE) 200 MG tablet Take 4 tablets by mouth every 12 hours (Patient not taking: Reported on 12/14/2022) 120 tablet 3 ??? meclizine (Antivert) 25 MG tablet Take 1 (one) tablet by mouth 3 times daily as needed ??? oxyCODONE-acetaminophen (PERCOCET) 5-325 MG tablet Take 1 tablet by mouth every 6 hours as needed for Pain (Patient not taking: Reported on 12/14/2022) 20 tablet 0 ??? Vit-Fe Fumarate-FA ( VITAMIN) 27-0.8 MG tablet Take 1 tablet by mouth once daily (Patient not taking: Reported on 12/14/2022) ??? Wound Dressings (INTERDRY AG TEXTILE 10 X12') MISC 1 Each by Apply externally route 2 times daily (Patient not taking: Reported on 12/14/2022) 30 Each 1 No current facility-administered medications for this visit. Allergies Patient has no known allergies. Social History Tobacco Use ??? Smoking status: Every Day Packs/day: .25 Types: Cigarettes ??? Smokeless tobacco: Never Substance Use Topics ??? Alcohol use: No ??? Drug use: No No family history on file. BP 138/87 Pulse 97 Ht 1.575 m (5' 2 ) Wt 89.4 kg (197 lb) Physical Exam: Constitutional: Alert, anxious; Well developed/well nourished Neuro:cranial nerves III-XII grossly intact CV/Pulm: Normal respirations and peripheral pulses. Eyes: PERRL, EOMI Face/Skin: normal appearance, no lesions/masses, Right TMJ laxity Ears: Right Ear: Mastoid and tragus non-tender, pinna WNL without lesion, EAC completely occluded with cerumen that was removed under the microscope to reveal a mildly erythemic but otherwise intact canal,TM intact with appropriate landmarks, middle ear space aerated (able to auto-insufflate) Left Ear: Mastoid non-tender and tragus, pinna WNL without lesion, EAC mildly erythemic but otherwise intact and free of debris, TM intact with appropriate landmarks, middle ear space aerated (able to auto-insufflate) Nose: patent bilaterally,Turbinates intact, Mucosal membranes intact, septum is midline externally Mouth and oropharynx: symmetric tongue mobility, no lesions/masses/ulcers, no tonsillar hypertrophyor exudate, uvula midline Neck: supple, no lymphadenopathy, no masses Voice: strong MusculoSkeletal: moves all extremities well [place]: NEGATIVE Due to the findings on physical examination, [...] that the patient tolerated the procedure well. I have reviewed pertinent images/audiograms/labs and these are my findings: Audiogram 04/09/2023: Normal Hearing Bilaterally; Tymps: Type A right, Type As left; WRS: 03/12/2011: Exam: MRI brain with and without contrast Date: 03/12/2011 ?? Technique: Multiplanar, multisequence with and without contrast ? Contrast: 15 cc gadolinium IV ? The midline structures are central. The ventricles are neither dilated nor displaced. The brain signal intensity with its pierre white matter interface is normal. No diffusion restriction is present. Contrast fails to elucidate an abnormality. Epidermoid cysts are noted within the posterior neck. ?? Diagnosis: Normal brain MRI. Assessment and Plan: Cait Mathews is a 27 year old female who presented today with 1) Dizziness and giddiness 2) Anxiety 3) Right cerumen impaction 4) Bilateral low grade otitis externa 5) Bruxism After explaining the contributing factors in the differential diagnosis, the disease process was explained in great detail. All questions were answered. We discussed risks vs benefits of: watchful waiting vs lifestyle modifications +/- additional medications -Pt with normal audiogram, negative [place] and essentially normal ear exam besides right cerumen impaction which was removed successfully under the microscope with boric acid powder placed to bilateral ear canals for low grade OE likely from q-tip use. No evidence of ear related dizziness. High suspicion for anxiety related dizziness. Encouraged her to follow up with her PCP for this. Meanwhile, practice dry ear precautions and avoid q-tips. Also discussed conservative measures for bruxism with right TMJ laxity found on exam. Follow up in 6-12 months for cerumen removal, no audiogram Depending on interval symptoms, exam, we may consider watchful waiting, additional medications, balance testing, and/or vestibular PT ADI Reynoso 04/09/2023 1:48 PM E DESIGNER documented in this encounter Procedure Notes * Darion Wilcox APRN-CNP - 04/09/2023 1:48 PM CSTAssociated Order(s): PROC CERUMEN REMOVAL Procedure(s): IN REMOVE CERUMEN IMPACTED W INSTR RT EAR Pre-Procedure Diagnose(s): Impacted cerumen of right ear Due to the findings on physical examination, [...] that the patient tolerated the procedure well. E DESIGNER documented in this encounter Plan of Treatment Not on file documented as of this encounter Procedures Procedure Name Priority Date/Time Associated Diagnosis Comments IN REMOVE CERUMEN IMPACTED W INSTR RT EAR Routine 04/09/2023 1:48 PM HOUSE DESIGNER Impacted cerumen of right ear documented in this encounter Results * IN REMOVE CERUMEN IMPACTED W INSTR RT EAR (04/09/2023 1:48 PM HOUSE DESIGNER) Narrative Darion Wilcox APRN-CNP - 04/09/2023 1:48 PM HOUSE DESIGNER Darion Wilcox APRN-CNP ? 04/09/2023 ??1:55 PM [...] well. Darion JOSHI PROCEDURE/ MINOR SURGICAL ORDERABLES documented in this encounter Visit Diagnoses Diagnosis Dizziness and giddiness- Primary Generalized anxiety disorder Bruxism Other specified psychophysiological malfunction Impacted cerumen of right ear Impacted cerumen Chronic diffuse otitis externa of both ears Tobacco use disorder documented in this encounter Care Teams Filler Shredder Machine Relationship Specialty Start Date End Date Gala Singh MD [address] [place] [id number] PCP - General 08/02/18 documented as of this encounter
--- OUTSIDE RECORDS SUMMARY | 2024-04-27 17:59 | XMS_ITS | Encounter Summary ---
Author Organization [facility] Address [address] [facility] [place] [address] Care Team Providers Care Osteologist Name Role Phone Gala Singh MD Primary Care Provider [phone] Reason for Visit * Reason Onset Date Comments Referral 11/18/2022 Encounter Details Date Type Department Care Team (Late st Contact Info) Description 11/18/2022 Telephone [facility] MATERNAL/ EVALUATION UNIT [address] [place] [address]. [address] [place] [address] Shefali Mccain sweat band separator Social History Tobacco Use Types Packs/Day Years [...] No 11/25/2018 documented as of this encounter Miscellaneous Notes * Telephone Encounter - Shefali Mccain RN - 11/18/2022 1:32 PM CDT PROFESSIONAL NURSING TUTOR referral received from Ata Rajput @ [facility] AT [facility]. Attempted to contact patient, no answer voicemail leftrequesting call back to schedule New PROFESSIONAL NURSING TUTOR appointment. documented in this encounter Plan of Treatment Not on file documented as of this encounter Visit Diagnoses Not on filedocumented in this encounter Care Teams Osteologist Relationship Specialty Start Date End Date Gala Singh MD [address] [id number] PCP - General 08/02/18 documented as of this encounter
--- OUTSIDE RECORDS SUMMARY | 2024-04-27 17:59 | XMS_ITS | Encounter Summary ---
Author Organization [facility] Address [address] [place] [address] Care Team Providers Care Table Games Dual Rate Supervisor Name Role Phone Gala Singh MD Primary Care Provider [phone] Encounter Details Date Type Department Care Team (Latest Contact Info) Description 02/07/2024 Travel Social History Tobacco Use Types Packs/Day Years [...] on filedocumented in this encounter Care Teams Table Games Dual Rate Supervisor Relationship Specialty Start Date End Date Gala Singh MD 2 [employer] [facility] [address] [place] [phone] PCP - General 08/02/18 documented as of this encounter
--- OUTSIDE RECORDS SUMMARY | 2024-04-27 17:59 | XMS_ITS | Referral Summary ---
Author Organization [facility] [employer] Address [address] [place] [address] Care Team Providers Care Event Specialist Product Demonstrator Name Role Phone Gala Singh MD Primary Care Provider [phone] Source Comments [facility] [employer],non-owned Affiliates and Associated Physician Practices is amultiple site organization consisting of ambulatory clinics and hospital sitesin [place], [place], [place] and [place]. This disclosure is being madepursuant to the Care Everywhere program and may not contain all information available regarding this patient. Last updated 18.[facility] [employer] Encounters Date Type Department Care Team Description 02/07/2024 Travel from Last 3 Months Allergies No known active allergies Medications * Be aware that medications may not be up to date on this document. Alwaysverify current medications with the patient. Medication Sig Dispensed Refills Start Date End Date Status Vit-Fe Fumarate-FA ( VITAMIN) 27-0.8 MG tablet Take 1 tablet by mouth once daily Active amoxicillin (AMOXIL) 875 MG tablet Take 875 mg by mouth 2 times daily Active oxyCODONE-acetamin ophen (PERCOCET) 5-325 MG tablet Take 1 tablet by mouth every 6 hours as needed for Pain 20 tablet 12/25/2018 Active Additional Information Patient not taking.Reported on 12/14/2022 ibuprofen (MOTRIN) 600 MG tablet Take 1 tablet by mouth every 6 hours as needed for Pain 40 tablet 1 12/25/2018 Active Additional Information Patient not taking.Reported on 12/14/2022 docusate sodium (COLACE) 100 MG capsule Take 1 capsule by mouth 2 times daily 60 capsule 1 12/25/2018 Active Additional Information Patient not taking.Reported on 01/05/2019 labetalol (NORMODYNE; TRANDATE) 200 MG tablet Take 4 tablets by mouth every 12 hours 120 tablet 3 12/27/2018 Active Additional Information Patient not taking.Reported on 12/14/2022 Wound Dressings (INTERDRY AG TEXTILE 10 X12') MISC 1 Each by Apply externally route 2 times daily 30 Each 1 01/05/2019 Active Additional Information Patient not taking.Reported on 12/14/2022 meclizine (Antivert) 25 MG tablet Take 1 (one) tablet by mouth 3 times daily as needed 12/28/2022 Active topiramate (Topamax) 25 MG tablet Take 1 (one) tablet by mouth once daily 06/09/2023 Active benzonatate (Tessalon) 200 MG capsule Take 1 (one) capsule by mouth 3 times daily as needed for cough 09/11/2023 Active phentermine (Ionamine) 15 MG capsule Take 1 (one) capsule by mouth once daily 06/16/2023 Active methylPREDNISolone (Medrol Dosepak) 4 MG tablet Take 1 (one) tablet by mouth as directed 09/11/2023 Active Active Problems Patient Care Coordination No te Formatting of this note migh t be different from the original. NOPP/MFCC 07/2018 Problem Noted Date Diagnosed Date Delivery by hysterectomy 12/22/2018 Placenta accreta affecting delivery 12/21/2018 Bilobed placenta 12/08/2018 Overview (12/09/2018): Images from the original note were not included. Bilobate: Anterior & posterior with a left lateral accessory lobe: Insulin controlled gestation al diabetes mellitus (GDM) [...] O'Cartwright glucose challenge test, antepartum 09/27/2018 12/13/2018 Overview (09/27/2018): Needs GTT Cellulitis 08/01/2018 12/05/2018 Child attention deficit disorder [...] Vasa previa 12/12/2018 Vasa previa 12/22/2018 Immunizations Name Administration Dates Next Due DTAP, HISTORIC VACCINE 12/30/1998,05/19/1995 DTP HIB, HISTORIC VACCINE 05/15/1994,03/16/1994, 01/05/1994 FLU, HISTORIC VACCINE 03/04/2010 HEP B, HISTORIC VACCINE 02/28/1997,1993, HPV, HISTORIC VACCINE 12/02/2007,08/05/2007,03/10 Hib,HISTORIC VACCINE 02/10/1995 INFLUENZA VACCINE, TRIV. (FL UZONE; FLULAVAL; FLUARIX; AFLURIA TRIVALENT; 6MO+), 0.5 ML (IIV3) 05/27/2011 MENINGOCOCAL MENINGITIS 01/19/2009 MMR 12/22/2018() MMR, HISTORIC VACCINE 12/30/1998,02/10/1995 POLIO IPV 12/30/1998 POLIO OPV 05/19/1995,03/16/1994,01/05/1994 TDAP (7yrs+) 12/22/2018(Deferred: See Comments - Pt already recieved),10/27/2018 TDAP, HISTORIC VACCINE 04/11/2007 Social History Tobacco Use Types Packs/Day Years [...] Comments Blood Pressure 138/87 04/09/2023 1:11 PM PENSION ADMINISTRATOR Pulse 97 04/09/2023 1:11 PM PENSION ADMINISTRATOR Temperature 36.8 ??C (98.2 ??F) 12/27/2018 8:00 AM CD T Respiratory Rate 16 12/27/2018 8:00 AM CDT Oxygen Saturation 99% 12/26/2018 10:55 PM CDT Inhaled Oxygen Concentration - - Weight 89.4 kg (197 lb) 04/09/2023 1:11 PM PENSION ADMINISTRATOR Height 157.5 cm (5' 2 ) 04/09/2023 1:11 PM PENSION ADMINISTRATOR Body Mass Index 36.03 04/09/2023 1:11 PM PENSION ADMINISTRATOR Functional Status Functional Status Response Date of [...] person have difficulty concentrating/remembering/making decisions? No 11/25/2018 Plan of Treatment Not on file Procedures Procedure Name Priority Date/Time Associated Diagnosis Comments HIV-1 HIV-2 ANTIBODY + HIV P24 AG PANEL Routine 10/27/2018 10:03 AM CDT Supervision of high risk , antepartum (HCC) from Last 3 Months or Most Recently Relevant to Health Maintenance Results * HIV-1 HIV-2 ANTIBODY + HIV P24 AG PANEL (10/27/2018 10:03 AM CDT) HIV1/2 Ab + P24 Ag Non Reactive Non Reactive 10/27/2018 12:16 PM CDT [facility] Blood BLOOD SPECIMEN / Unknown Venipuncture / Unknown 10/27/2018 10:03 AM CDT 10/27/2018 11:20 AM CDT Narrative [facility] - 10/27/2018 12:16 PM CDT No Laboratory evidence of HIV infection. Georgette Felton MD LAB - CHEMISTRY [facility] [address] [place] [address] from Last 3 Months or Most Recently Relevant to Health Maintenance Advance Directives * Full Code (Latest Code Status on File) Date Activated Date Inactivated Comments 12/24/2018 6:47 AM 12/27/2018 3:37 PM * Full Code Date Activated Date Inactivated Comments 12/21/2018 9:20 AM 12/23/2018 4:07 AM * Full Code Date Activated Date Inactivated Comments 11/25/2018 6:38 AM 12/21/2018 9:20 AM * Full Code Date Activated Date Inactivated Comments 11/25/2018 6:05 AM 11/25/2018 6:38 AM * Full Code Date Activated Date Inactivated Comments 11/03/2018 6:06 AM 11/05/2018 2:02 PM Care Teams Event Specialist Product Demonstrator Relationship Specialty Start Date End Date Gala Singh MD [address] [id number] [facility] - General 08/02/18
--- OUTSIDE RECORDS SUMMARY | 2024-04-27 17:59 | XMS_ITS | Encounter Summary ---
Author Organization [facility] Address [address] [place] [address] Care Team Providers Care Vice President Of Software Development Name Role Phone Gala Singh MD Primary Care Provider [phone] Encounter Details Date Type Department Care Team (Latest Contact Info) Description 12/14/2022 Travel Social History Tobacco Use Types Packs/Day [...] on filedocumented in this encounter Care Teams Vice President Of Software Development Relationship Specialty Start Date End Date Gala Singh MD 2 [employer] [facility] [address] [place] [phone] PCP - General 08/02/18 documented as of this encounter
--- OUTSIDE RECORDS SUMMARY | 2024-04-27 17:59 | XMS_ITS | Encounter Summary ---
Author Organization [facility] Address [address] [place] [address] Care Team Providers Care Barrel Lathe Operator Outside Name Role Phone Gala Singh MD Primary Care Provider [phone] Encounter Details Date Type Department Care Team (Latest Contact Info) Description 04/09/2023 Travel Social History Tobacco Use Types Packs/Day [...] on filedocumented in this encounter Care Teams Barrel Lathe Operator Outside Relationship Specialty Start Date End Date Gala Singh MD 2 [employer] [facility] [address] [place] [phone] PCP - General 08/02/18 documented as of this encounter
--- OUTSIDE RECORDS SUMMARY | 2024-04-27 17:59 | XMS_ITS | Encounter Summary ---
Author Organization [facility] Address [address] [place] [address] Care Team Providers Care Industrial Safety Engineer Name Role Phone Gala Singh MD Primary Care Provider [phone] Reason for Visit * Reason Onset Date Comments Referral 11/19/2022 Encounter Details Date Type Department Care Team (Late st Contact Info) Description 11/19/2022 Telephone [facility] [address] [place] [address]. [address] [place] [address] Shefali Mccain patent litigation associate Social History Tobacco Use Types Packs/Day Years [...] Telephone Encounter - Shefali Mccain RN - 11/19/2022 12:47 PM CDT Voicemail left requesting call back to schedule new key punch teacher appointment. documented in this encounter Plan of Treatment Not on file documented as of this encounter Visit Diagnoses Not on filedocumented in this encounter Care Teams Industrial Safety Engineer Relationship Specialty Start Date End Date Gala Singh MD [address] [phone] PCP - General 08/02/18 documented as of this encounter
--- OUTSIDE RECORDS SUMMARY | 2024-04-27 17:59 | XMS_ITS | Clinical Summary ---
Author Organization [facility] [employer] Address [address] [place] [address] Care Team Providers Care Backroom Associate Name Role Phone Gala Singh MD Primary Care Provider [phone] Source Comments [facility] [employer],non-owned Affiliates and Associated Physician Practices is amultiple site organization consisting of ambulatory clinics and hospital sitesin [place], [place], [place] and [place]. This disclosure is being madepursuant to the Care Everywhere program and may not contain all information available regarding this patient. Last updated 18.[employer] Allergies No known active allergies Medications * [...] 12/07/2018 Vasa previa 12/12/2018 Vasa previa 12/22/2018 Encounters Date Type Department Care Team Description 02/07/2024 Travel from Last 3 Months Immunizations Name Administration Dates Next Due DTAP, [...] Comments Blood Pressure 138/87 04/09/2023 1:11 PM SCREEN PRINTING INSPECTOR Pulse 97 04/09/2023 1:11 PM SCREEN PRINTING INSPECTOR Temperature 36.8 ??C (98.2 ??F) 12/27/2018 8:00 AM CD T Respiratory Rate 16 12/27/2018 8:00 AM CDT Oxygen Saturation 99% 12/26/2018 10:55 PM CDT Inhaled Oxygen Concentration - - Weight 89.4 kg (197 lb) 04/09/2023 1:11 PM SCREEN PRINTING INSPECTOR Height 157.5 cm (5' 2 ) 04/09/2023 1:11 PM SCREEN PRINTING INSPECTOR Body Mass Index 36.03 04/09/2023 1:11 PM SCREEN PRINTING INSPECTOR Plan of Treatment Health Maintenance Due Date Last Done Comments PNEUMOCOCCAL VACCINE (1 of 2 - PCV) 11/07/1999 HEPATITIS C SCREENING 11/02/2011 DEPRESSION SCREENING 05/10/2023 COVID-19 VACCINE (1 - season) 2024 INFLUENZA VACCINE (#1) 2024 05/27/2011, 2009 DTAP/TDAP/TD VACCINES (8 - Td or Tdap) 10/27/2028 10/27/2018, 04/11/2007, 12/30/1998, Additional history exists ZOSTER VACCINE (1 of 2) 11/07/2043 HIB VACCINE Completed 02/10/1995, 10/1994, 03/16/1994, Additional history exists HEPATITIS B VACCINE Completed 02/28/1997, 1993, 1993 HPV VACCINE Completed 12/02/2007, 07/09, 03/23/2007 MENINGOCOCCAL VACCINE Aged Out 01/19/2009 No scar tony eligible based on patient's age to complete this topic HIV SCREENING Completed 10/27/2018 Procedures Procedure Name Priority Date/Time Associated Diagnosis [...] Reactive Non Reactive 10/27/2018 12:16 PM CDT [facility] Blood BLOOD SPECIMEN / Unknown Venipuncture / Unknown 10/27/2018 10:03 AM CDT 10/27/2018 11:20 AM CDT Narrative [facility] - 10/27/2018 12:16 PM CDT No Laboratory evidence of HIV infection. Georgette Felton MD LAB - CHEMISTRY [facility] Organization Address City/State/[facility] Co de Phone Number [facility] [address] [place] [address] from Last 3 Months or Most Recently [...] 6:06 AM 11/05/2018 2:02 PM Care Teams Backroom Associate Relationship Specialty Start Date End Date Gala Singh MD [address] [phone] PCP - General 08/02/18
--- OUTSIDE RECORDS SUMMARY | 2024-04-27 17:59 | XMS_ITS | Encounter Summary ---
Author Organization [facility] Address [address] [place] [address] Care Team Providers Care Director Of Retail Analytics Name Role Phone Gala Singh MD Primary Care Provider [phone] Encounter Details Date Type Department Care Team (Latest Contact Info) Description 03/15/2023 Travel Social History Tobacco Use Types Packs/Day [...] on filedocumented in this encounter Care Teams Director Of Retail Analytics Relationship Specialty Start Date End Date Gala Singh MD 2 [employer] [facility] [address] [place] [phone] PCP - General 08/02/18 documented as of this encounter
--- OUTSIDE RECORDS SUMMARY | 2024-04-27 17:59 | XMS_ITS | Encounter Summary ---
Author Organization [facility] Address [address] [place] [address] Care Team Providers Care Trouble Operator Name Role Phone Gala Singh MD Primary Care Provider [phone] Reason for Visit * Reason Onset Date Comments Referral 11/20/2022 Encounter Details Date Type Department Care Team (Late st Contact Info) Description 11/20/2022 Telephone [facility]/ EVALUATION UNIT [address] [place] [address]. [address] [place] [address] Shefali Mccain jersey knitter Social History Tobacco Use Types Packs/Day Years [...] Telephone Encounter - Shefali Mccain RN - 11/20/2022 1:38 PM CDT OYSTER CULTIVATOR referral received from Ryne Rajput @ [facility]. Indication-AUB Patient contacted and scheduled for New OYSTER CULTIVATOR appointment. [employer] insurance verified. [employer] link texted. documented in this encounter Plan of Treatment Not on file documented as of this encounter Visit Diagnoses Not on filedocumented in this encounter Care Teams Trouble Operator Relationship Specialty Start Date End Date Gala Singh MD [address] [phone] PCP - General 08/02/18 documented as of this encounter
--- OUTSIDE RECORDS SUMMARY | 2024-04-27 18:00 | XMS_ITS | Encounter Summary ---
Author Organization [facility] Address [address] [place] [id number] Care Team Providers Care River Captain Name Role Phone Gala Singh MD Primary Care Provider [phone] Reason for Visit * Reason Comments Vaginal Bleeding * Auth/Cert Specialty Diagnoses / Procedures Referred By Contac t Referred To Contact Obstetrics and Gynecology Procedures SECTION (REPEAT) [facility] 5e Ante/Mom Baby [address] [place] [address] Referral ID Status Reason Start Date Expiration Date Visits Re quested Visits Authorized [id number] 11/28/2018 05/27/2019 1 Encounter Details Date Type Department Care Team (Latest Contact Info) Description 11/25/2018 5:59 AM CDT - 12/27/2018 2:15 PM CDT Hospital Encounter [facility] 6W MOTHER/BABY [address] [place], [place] [id number] Gely Medina MD [address] [place], [place] [phone] [place] [address] [place] [id number] Obstetrics Discharge Disposition: Home or Self Care Social [...] Sign Reading Time Taken Comments Blood Pressure 141/81 12/27/2018 8:00 AM CDT Pulse 73 12/27/2018 8:00 AM CDT Temperature 36.8 ??C (98.2 ??F) 12/27/2018 8:00 AM CD T Respiratory Rate 16 12/27/2018 8:00 AM CDT Oxygen Saturation 99% 12/26/2018 10:55 PM CDT Inhaled Oxygen Concentration - - Weight 93.9 kg (207 lb) 12/25/2018 10:45 PM CDT Height 152.4 cm (5') 12/21/2018 6:14 AM CDT Body Mass Index 40.43 12/21/2018 6:14 AM CDT documented in this [...] No 11/25/2018 documented as of this encounter Discharge Summaries * Pat Rahman RN - 12/27/2018 2:15 PM CDT Discharge instructions given, all questions addressed. [facility]charge medications [facility] and delivered to patient room. Discharged to nicu room with her baby. Pat Rahman RN 12/27/2018 5:34 PM * Bennett Stewart MD - 12/27/2018 2:15 PM CDT Images from the original note were not included. 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 Complete posterior previa with vaginal bleeding 2. H/o LTCS x1 1. H/o PreE 2. Asthma 3. Tobacco use Discharge Diagnosis: 23 year old with 4. As above 5. PreE with SF 6. A2GDM 7. Dental caries 8. Desaturation 12/22 9. Cellulitis 10. Placenta Accreta 11. Status post Section with Hysterectomy Service: Maternal Medicine Consults: SW, NICU HPI: Cait Mathews is a 23 year old at 32w2d whose care was with [facility]. She presentedwith complaints of vaginal bleeding since she had her US yesterday. She has a known placenta previaand this is her third bleed. She states that when she woke up this morning the front of her shorts were covered in blood. She then went to the bathroom and a clot the size of her palm came out. Sincethen she has continued to have minimal bleeding. She has not need to wear a pad, but noticing some blood after she wipes. negative Ctx. negative LOF. positive VB. positive FM.. 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 PreE dx'd 12/08. CS scheduled for 12/21. Accreta anticipated despite negative imaging. Delivery: For full details of delivery, please refer to operative note or delivery summary. Delivery Type: Section with Hysterectomy Estimated Blood Loss: See delivery summary Anesthesia/Analgesia: See delivery summary Information for the patient's : Mine Snyder [[id number]] Date of 12/21/2018 Time of : 11:53 AM Sex: Female Weight: 3060 g (6 lb 11.9 oz) (1 min): 8 (5 min): 4 (10 min): 9 Course: Her course was uncomplicated except for desaturations 12/22 with negative workup. Cellulitis tx'd with Keflex x 7d. Patient is bottle feeding. She is s/p hysterectomy for contraception. Results: Recent Labs Component Name 12/20/18 0542 ABO B RHTYPE Positive Recent Labs Component Name 12/23/18 0707 12/22/18 1915 12/22/18 0729 WBC 9.7 12.2* 11.1* HGB 9.6* 10.7* 10.7* HCT 30.7* 32.7* 32.8* PLTCOUNT 195 180 180 Discharge Vitals: BP 141/81 Pulse 73 Temp 98.2 ??F (36.8 ??C) (Oral) Resp 16 Ht 5' (1.524 m) Wt 207 lb (93.9 kg) MtT264% BMI 40.43 kg/m2 Disposition: Home on day # 6. Follow-up: with [facility] at 1 and 6 week(s) Discharge Instructions: Continue these medications at home: Current Discharge Medication List UNREVIEWED MEDICATIONS Instructions Authorizing Provider cephalexin 500 MG capsule Commonly known as: KEFLEX Quantity Dispensed: 20 capsule Ask about: Should I take this medication? Take 1 capsule by mouth every 6 hours for 5 days Bennett Stewart MD START taking these medications Instructions Authorizing Provider docusate sodium 100 MG capsule Commonly known as: COLACE Quantity Dispensed: 60 capsule Take 1 capsule by mouth 2 times daily Gabrielle Lui MD ibuprofen 600 MG tablet Commonly known as: MOTRIN Quantity Dispensed: 40 tablet Take 1 tablet by mouth every 6 hours as needed for Pain Gabrielle Lui MD * labetalol 200 MG tablet Commonly known as: NORMODYNE; TRANDATE Quantity Dispensed: 120 tablet Take 2 tablets by mouth every 12 hours for 60 days Bennett Stewart MD * labetalol 200 MG tablet Commonly known as: NORMODYNE; TRANDATE Quantity Dispensed: 120 tablet Take 4 tablets by mouth every 12 hours Bennett Stewart MD oxyCODONE-acetaminophen 5-325 MG tablet Commonly known as: PERCOCET Quantity Dispensed: 20 tablet Take 1 tablet by mouth every 6 hours as needed for Pain Gabrielle Lui MD * This list has 2 medication(s) that are the same as other medications prescribed for you. Read thedirections carefully, and ask your doctor or other care provider to review them with you. CONTINUE taking these medications which have NOT CHANGED Instructions Authorizing Provider amoxicillin 875 MG tablet Commonly known as: AMOXIL Take 875 mg by mouth 2 times daily vitamin 27-0.8 MG tablet Take 1 tablet by mouth once daily Discharge Procedure Orders Why you were hospitalized Order Specific Question Answer Comments Your discharge diagnosis is: delivery delivered [[id number]] No special diet needed Resume your normal home diet as tolerated. Eat well-balanced meals that include foods from all of the food groups. Drink plenty of fluids It is important that you stay well hydrated. You should drink at least eight to ten 8-ounce glassesof water per day. Nothing per vagina For 6 weeks Light activity While on narcotics Do not drive Until able to slam on breaks comfortably and off of narcotic pain medication No heavy lifting Do not lift anything over 15 pounds Contact your provider Call your Baggage Handler or the [facility] if you have questions or concerns,or for any of the following issues: -- for a temperature higher than 100.4 F -- for pain that gets worse or does not get better after taking your pain medication(s) as directed -- if you see bleeding from your incision/laceration (if applicable) please refer to your dischargeinstructions. -- if your incision looks infected (red, swollen, warm to the touch, or non- clear, foul-smelling drainage) -- if you have severe cramping or increased vaginal bleeding -- if you experience new onset headaches, visual changes or increased abdominal pain not relieved with pain medication depression lasts longer than baby blues, and it's more severe. The symptoms of depression include: Sleep disruption. Appetite changes -- either loss of appetite and losing more weight than you should, or overeating. Having no interest in seeing people. Inability to enjoy the things you used to enjoy. Inability to concentrate. Intense self-criticism and self-blame, thinking that you're a bad mother and you can't do anything right. Inability to [place] with your baby, which can cause intense feelings of shame or guilt. If you have several of these symptoms and they've persisted for some time, call your doctor to ask about being screened for depression. And if you've had any thoughts of harming the baby or yourself, call National Suicide Prevention Hotline the right away. Call your doctor or a nurse if you have questions or concerns, or for any of the following issues: Temperature higher than 101 F Pain that gets worse or does not get better after taking your pain medication(s) as directed Increased vaginal bleeding Bleeding from your incision or IV site If your incision or IV site looks infected (red, swollen, warm to the touch, or non-clear, foul-smelling drainage) When to call your provider CALL 911 IF YOU HAVE: Pain in chest Obstructed breathing or shortness of breath Seizures Thoughts of hurting yourself or your baby NOTIFY YOUR PROVIDER IF YOU HAVE: Bleeding, soaking through one pad/hour, or blood clots, the size of an egg or bigger Incision that is not healing Red or swollen leg that is painful or warm to touch Temperature of 100.4??F or higher Headache that does not get better, even after taking medicine, or bad headache with vision changes Shower and bathing instructions May shower any time. May have tub baths after 4 weeks if cleared by your OB. Follow up with Primary Care Provider (PCP) Our records show your Primary Care Provider (PCP) is Gala Singh MD. Order Specific Question Answer Comments Follow Up Instructions: with your PCP in 1 week for an incisoin check For relief of pain Take Ibuprofen 600 mg every 6 hours as needed for relief of pain or discomfort. If additional help is needed, you can take Percocet 5-325 mg every 6 hours Stool softeners Take Colace for relief of difficult bowel movements. For relief of constipation Take Miralax for relief of constipation. For relief of itching Take Benadryl for relief of itching. Mwcy-pxs-xcrchhb medication Use an abdominal binder or belly band for comfort as needed. Use compression stockings (available at pharmacies or online) for leg swelling. Why you were hospitalized Order Specific Question Answer Comments Your discharge diagnosis is: delivery delivered [[id number]] No special diet needed Resume your normal home diet as tolerated. Eat well-balanced meals that include foods from all of the food groups. Drink plenty of fluids It is important that you stay well hydrated. You should drink at least eight to ten 8-ounce glassesof water per day. Nothing per vagina For 6 weeks Light activity While on narcotics Do not drive Until able to slam on breaks comfortably and off of narcotic pain medication No heavy lifting Do not lift anything over 15 pounds Contact your provider Call your Baggage Handler or the [facility] if you have questions or concerns,or for any of the following issues: -- for a temperature higher than 100.4 F -- for pain that gets worse or does not get better after taking your pain medication(s) as directed -- if you see bleeding from your incision/laceration (if applicable) please refer to your dischargeinstructions. -- if your incision looks infected (red, swollen, warm to the touch, or non- clear, foul-smelling drainage) -- if you have severe cramping or increased vaginal bleeding -- if you experience new onset headaches, visual changes or increased abdominal pain not relieved with pain medication depression lasts longer than baby blues, and it's more severe. The symptoms of depression include: Sleep disruption. Appetite changes -- either loss of appetite and losing more weight than you should, or overeating. Having no interest in seeing people. Inability to enjoy the things you used to enjoy. Inability to concentrate. Intense self-criticism and self-blame, thinking that you're a bad mother and you can't do anything right. Inability to [place] with your baby, which can cause intense feelings of shame or guilt. If you have several of these symptoms and they've persisted for some time, call your doctor to ask about being screened for depression. And if you've had any thoughts of harming the baby or yourself, call National Suicide Prevention Hotline the right away. Call your provider if you have questions or concerns, or for any of the following issues: Temperature higher than 101 F Pain that gets worse or does not get better after taking your pain medication(s) as directed Increased vaginal bleeding Bleeding from your incision or IV site If your incision or IV site looks infected (red, swollen, warm to the touch, or non-clear, foul-smelling drainage) When to call your provider CALL 431 IF YOU HAVE: Pain in chest Obstructed breathing or shortness of breath Seizures Thoughts of hurting yourself or your baby NOTIFY YOUR PROVIDER IF YOU HAVE: Bleeding, soaking through one pad/hour, or blood clots, the size of an egg or bigger Incision that is not healing Red or swollen leg that is painful or warm to touch Temperature of 100.4??F or higher Headache that does not get better, even after taking medicine, or bad headache with vision changes Shower and bathing instructions May shower any time. May have tub baths after 4 weeks if cleared by your OB. For relief of pain Take Ibuprofen 600 mg every 6 hours as needed for relief of pain or discomfort. If additional help is needed, you can take Percocet 5-325 mg every 6 hours Stool softeners Take Colace for relief of difficult bowel movements. For relief of constipation Take Miralax for relief of constipation. For relief of itching Take Benadryl for relief of itching. Buxn-fmg-lqobkoa medication Use an abdominal binder or belly band for comfort as needed. Use compression stockings (available at pharmacies or online) for leg swelling. Follow up with provider Order Specific Question Answer Comments Follow Up Instructions: follow up with your PCP in 2-3 days for a blood pressure check Bennett Stewart MD 01/01/2019 2:56 AM documented in this encounter Discharge Instructions * Discharge Instructions* Georgette Bernabe RN - 12/26/2018 9:04 AM CDT DELIVERED MOTHER DISCHARGE INSTRUCTIONS Refer to the Booklet given during your stay for more information. Please contact your boilermaker fitter for the followin. Any burning or itching when urinating. . 2. Any significant increase or change in color or odor of vaginal discharge and/or any pus drainingfrom your abdominal incision (). 3. Any significant increase in pain, tenderness, or redness in your abdominal incision (). 4. Any increased vaginal bleeding that may contain clots. 5. Temperature greater than 101 degrees or as instructed by your care provider. 6. Any pus or blood draining from nipples. Remember to collect all your belongings kept at the bedside, for example: your cell phone and cell phone furnace charger. PLEASE REMEMBER: 1. Always place your infant on his/her back to sleep. 2. Always use a car safety seat when transporting your child. documented in this encounter Medications at Time of Discharge [...] every 12 hours 120 tablet 3 12/27/2018 oxyCODONE-acetaminophen (PERCOCET) 5-325 MG tablet Take 1 tablet by mouth every 6 hours as needed for Pain 20 tablet 12/25/2018 Vit-Fe Fumarate-FA ( VITAMIN) 27-0.8 MG tablet Take 1 tablet by mouth once daily cephalexin (KEFLEX) 500 MG capsule Take 1 capsule by mouth every 6 hours for 5 days 20 capsule 12/26/2018 12/31/2018 labetalol (NORMODYNE; TRANDATE) 200 MG tablet Take 2 tablets by mouth every 12 hours for 60 days 120 tablet 1 12/26/2018 02/24/2019 documented as of this encounter Progress Notes * Bennett Stewart MD - 12/27/2018 7:40 AM CDT PGY2 OB Post- Note 12/27/2018, 7:40 AM Subjective: Cait Mathews not in room Objective: Temp (36hrs) Max:99.3 ??F (37.4 ??C) Patient Vitals for the past 24 hrs: Temp Pulse Resp BP 12/27/18 0345 -- 67 18 151/64 12/26/18 2255 98.5 ??F (36.9 ??C) 56 18 143/89 12/26/18 1620 98.6 ??F (37 ??C) 73 18 137/82 12/26/18 1240 98.6 ??F (37 ??C) 79 16 131/73 12/26/18 0841 98.5 ??F (36.9 ??C) 86 18 155/82 Intake/Output Summary (Last 24 hours) at 12/27/2018 0740 Last data filed at 12/27/2018 0345 Gross per 24 hour Intake 1030 ml Output 250 ml Net 780 ml PE: Pt not in room Data: Recent Labs Component Name 12/23/18 0707 12/22/18 1915 12/22/18 0729 WBC 9.7 12.2* 11.1* HGB 9.6* 10.7* 10.7* HCT 30.7* 32.7* 32.8* PLTCOUNT 195 180 180 Recent Labs Component Name 12/20/18 0542 ABO B RHTYPE Positive Assessment/Plan: 23 year old year old S/p section, POD # 6 1. complicated by: 1. C-hyst for accreta at 36 weeks 1. 1700 MBL 2. preE with SF 1. BP range:131-151/64-82 2. Labetalol increased to 800 BID 12/27 3. Magnesium off 3. H/o CS x 1 4. Asthma 1. Not on any meds 5. Tobacco use 6. A2GDM 1. No FBS listed 7. Dental caries 8. Partial cervix left 9. Desaturation 12/22 1. CXR: negative 2. EKG: WNL 3. CBC/CMP: WNL 4. Echo: no final report as of 12/26 10. Cellulitis 1. Keflex for 7 days (day 4 of 7) 2. AFVSS 3. Pain is well controlled with current medications. 4. : Urinary output is adequate, 5. GI: tolerating diet, + flatus, ADAT 6. Br/Koffi/Contraception: The patient is bottle feeding and is undecided about contraception 7. Hematologic: Hgb 11.6, Pre-op Hgb 11.9 8. B+/I/-/-, HIV NR 9. DVT/PE prophylaxis: 1. Risk factors: major surgery, Body mass index is 40.43 kg/m??., state, 2. No worrisome physical exam findings; VSS 3. SCDs in bed, encourage ambulation Dispo: continue routine post- care, d/c today after seen by attending Bennett Stewart MD 12/27/2018 7:40 AM Associated attestation - Sari Wilson MD - 12/27/2018 2:44 PM CDT OB Attending Progress Note Patient seen and examined. I have reviewed the residents note and agree with the findings, except when noted. 12/27/2018 Subjective: Patient is feeling well, pain adequately controlled and ambulating. Objective: Temp (36hrs) Max:98.6 ??F (37 ??C) Vitals: 12/26/18 1620 12/26/18 2255 12/27/18 0345 12/27/18 0800 BP: 137/82 143/89 151/64 141/81 Pulse: 73 56 67 73 Resp: 18 16 Temp: 98.6 ??F (37 ??C) 98.5 ??F (36.9 ??C) 98.2 ??F (36.8 ??C) SpO2: 99% 99% Weight: Height: Intake/Output Summary (Last 24 hours) at 12/27/2018 1438 Last data filed at 12/27/2018 0345 Gross per 24 hour Intake 780 ml Output -- Net 780 ml Recent Labs Component Name 12/23/18 0707 12/22/18 1915 12/22/18 0729 WBC 9.7 12.2* 11.1* HGB 9.6* 10.7* 10.7* HCT 30.7* 32.7* 32.8* PLTCOUNT 195 180 180 Exam: General: alert, no distress Abdomen: Soft without mass, tenderness or organomegaly, fundus firm below the umbilicus Incision: c/d/I, mild erythema Assessment/Plan: day 6 s/p cHyst. The patient feels well. Pain is well controlled with current medications. The patient is ambulating well. The patient is tolerating a normal diet. BP stable on labetalol. Keflex for cellulitis. 2hr GTT 4-12 weeks. Discharge patient home in stable condition. Discharge instructions including follow up have been discussed with the patient. Sari Wilson MD 12/27/2018 2:38 PM * Jonathan Merchant RN - 12/27/2018 7:02 AM CDT Patient is s/p Magnesium Sulfate treatment. She is doing well and stable. Assessment and vital signs wnl. She denies any lightheadedness, blurred vision or epigastric pain. She is voiding without difficulty. RN have asked patient to void in urine hat but she does NOT. She has spent the majority of her time in NICU with her infant and there are NO concerns at this time. 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 She will report to nursing staff if having any blurred vision, headaches and/or epigastric pain. Jonathan Merchant RN 12/27/2018 1:55 AM Problem: Goal: Incision site is free of redness, swelling and/or warmth and is well approximated Outcome: Ongoing Note: Patient will remain free of infection. She will shower with hibiclens soap and will report any drainage to RN. Jonathan Merchant RN 12/27/2018 1:54 AM * Georgette Bernabe RN - 12/26/2018 2:32 PM CDT Shift summary: Cait's VSS. BPs 155/82 (before scheduled labetalol) & 131/73. Denies BARRERA, blurred vision. Small to scant lochia. Incisions approximated with jose. No drainage or excessive redness noted. Keflex administered as ordered. Voiding spontaneously - not consistently voiding in hat,encouraged her to so we can monitor output. Tolerating regular diet. Ambulating ad rafa. Reports adeq uate pain control with scheduled motrin and tylenol and prn roxicodone. Spends most of her time in the NICU with baby - is and pumping. * Bennett Stewart MD - 12/26/2018 6:02 AM CDT PGY2 OB Post- Note 12/26/2018, 6:02 AM Subjective: Cait Mathews had an uneventful night. Pain is controlled. Lochia is small amount. She reports flatus passed. She denies headache, fever, chest pain, shortness of breath, and leg pain. She has ambulated and denies lightheadedness. Chapin is absent. Patient is voiding spontaneously. Objective: Temp (36hrs) Max:99.3 ??F (37.4 ??C) Patient Vitals for the past 24 hrs: Temp Pulse Resp BP 12/26/18 0550 98.5 ??F (36.9 ??C) 69 18 139/79 12/26/18 0042 98.2 ??F (36.8 ??C) 75 18 139/69 12/25/18 2245 -- -- -- 136/82 12/25/18 1955 99.3 ??F (37.4 ??C) 78 20 151/91 12/25/18 1525 98.2 ??F (36.8 ??C) 74 20 140/82 12/25/18 0810 98 ??F (36.7 ??C) 72 18 138/84 Intake/Output Summary (Last 24 hours) at 12/26/2018 0602 Last data filed at 12/25/2018 0817 Gross per 24 hour Intake -- Output 0 ml Net 0 ml PE: General: alert, cooperative in no acute distress Lungs: nonlabored respirations Abdomen: Soft, appropriately tender; fundus firm below umbilicus. Incision: clean/dry/intact with surrounding erythema Extremities: no calf tenderness, no palpable cords Data: Recent Labs Component Name 12/23/18 0707 12/22/18 1915 12/22/18 0729 WBC 9.7 12.2* 11.1* HGB 9.6* 10.7* 10.7* HCT 30.7* 32.7* 32.8* PLTCOUNT 195 180 180 Recent Labs Component Name 12/20/18 0542 ABO B RHTYPE Positive Assessment/Plan: 23 year old year old S/p section, POD # 5 1. complicated by: 1. C-hyst for accreta at 36 weeks 1. 1700 MBL 2. preE with SF 1. BP range:138-151/82-91 2. Labetalol increased to 400 BID 3. Magnesium off 3. H/o CS x 1 4. Asthma 1. Not on any meds 5. Tobacco use 6. A2GDM 1. No FBS listed 7. Dental caries 8. Partial cervix left 9. Desaturation 12/22 1. CXR: negative 2. EKG: WNL 3. CBC/CMP: WNL 4. Echo: no final report as of 12/26 10. Cellulitis 1. Keflex for 7 days (day 3 of 7) 2. AFVSS 3. Pain is well controlled with current medications. 4. : Urinary output is adequate, 5. GI: tolerating diet, + flatus, ADAT 6. Br/Koffi/Contraception: The patient is bottle feeding and is undecided about contraception 7. Hematologic: Hgb 11.6, Pre-op Hgb 11.9 8. B+/I/-/-, HIV NR 9. DVT/PE prophylaxis: 1. Risk factors: major surgery, Body mass index is 40.43 kg/m??., state, 2. No worrisome physical exam findings; VSS 3. SCDs in bed, encourage ambulation Dispo: continue routine post- care, d/c today after seen by attending Bennett Stewart MD 12/26/2018 6:02 AM Associated attestation - Silvestre Silverman MD - 12/26/2018 1:41 PM CDT MFM Attending I have seen, evaluated and examined the patient with Dr. Chatman. I agree with the above assessment,exams and plans. Exam: BP 131/73 Pulse 79 Temp 98.6 ??F (37 ??C) (Oral) Resp 16 Ht 5' (1.524 m) Wt 207 lb (93.9 kg) SpO2 98% BMI 40.43 kg/m2 Gen - NAD Abd - Some anthony-inc tenderness and swelling, but erythema Ext - NT, no edema I have the following to add to the plan: BPs still labile, thus will bump up labetalol to 600 mg BID. Also need to watch incision closely as there is some dependant edema in the panus area. Needs at least one more day in house, possible DC tomorrow. 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 Pain is controlled. She reports flatus passed. She has ambulatedand denies lightheadedness. Chapin absent, patient is voiding without difficulty. She denies headache, fever, chest pain, shortness of breath, and leg pain. Objective: Temp (24hrs) Max:99.3 ??F (37.4 ??C) Vitals: 12/25/18 1955 12/25/18 2245 12/26/18 0042 12/26/18 0550 BP: 151/91 136/82 139/69 139/79 Pulse: 78 75 69 Resp: 18 Temp: 99.3 ??F (37.4 ??C) 98.2 ??F (36.8 ??C) 98.5 ??F (36.9 ??C) SpO2: 100% Weight: 207 lb (93.9 kg) Height: Intake/Output Summary (Last 24 hours) at 12/26/2018 0558 Last data filed at 12/25/2018 0817 Gross per 24 hour Intake -- Output 0 ml Net 0 ml Exam: General: alert, cooperative, in no acute distress Heart: regular rate and rhythm. No murmurs auscultated. Lungs: Clear to auscultation bilaterally. No wheezes, rhales, rhonchi. Abdomen: Bowel Sounds normal. Soft. Non-distended. Appropriately tender to palpation. Incision: incision clean, dry and intact Extremities: Non-tender. No edema. SCDs are in place. Data: Recent Labs Component Name 12/23/18 0707 12/22/18 1915 12/22/18 0729 WBC 9.7 12.2* 11.1* HGB 9.6* 10.7* 10.7* HCT 30.7* 32.7* 32.8* PLTCOUNT 195 180 180 MEDICATIONS FOR CURRENT ENCOUNTER: SCHEDULED MEDICATIONS: acetaminophen (TYLENOL) tablet 650 mg, Oral, q6h cephalexin (KEFLEX) capsule 500 mg, Oral, q6h docusate sodium (COLACE) capsule 100 mg, Oral, BID famotidine (PEPCID) tablet 20 mg, Oral, QDAY ibuprofen (MOTRIN) tablet 600 mg, Oral, q6h iron polysaccharides (NIFEREX 150) capsule 150 mg, Oral, QDAY labetalol (NORMODYNE; TRANDATE) tablet 400 mg, Oral, q12h measles, mumps and rubella vaccine (MMR) injection 0.5 mL, Subcutaneous, Immunization - Once vitamin with iron tablet 1 tablet, Oral, QDAY Tdap (qdtnqwx-pfwqzskvgk-xxgcy pertussis) (BOOSTRIX) (7y+) injection 0.5 mL, Intramuscular, Immunization - Once [COMPLETED] labetalol (NORMODYNE; TRANDATE) tablet 100 mg, Oral, Once CONTINUOUS MEDICATIONS: PRN MEDICATIONS: Or Or Or 0.9% NaCl infusion rate and volume, Intravenous, Once PRN benzocaine-menthol (DERMOPLAST) spray, Topical, PRN bisacodyl (DULCOLAX) suppository 10 mg, Rectal, QDAY PRN bisacodyl EC (DULCOLAX) tablet 5 mg, Oral, QDAY PRN calcium carbonate (TUMS) chew tablet 2 tablet, Oral, q4h PRN diphenhydrAMINE (BENADRYL) capsule 25 mg, Oral, AT BEDTIME PRN hemorrhoidal (PREPARATION H) ointment OINT, Rectal, TID PRN HYDROmorphone (DILAUDID) injection 0.4 mg, Intravenous, q4h PRN lanolin ointment, Topical, PRN magnesium hydroxide (MILK OF MAGNESIA) suspension 30 mL, Oral, QDAY PRN oxyCODONE (immediate release) (ROXICODONE) tablet 10 mg, Oral, q4h PRN oxyCODONE (immediate release) (ROXICODONE) tablet 5 mg, Oral, q4h PRN oxyCODONE-acetaminophen (PERCOCET) 10-325 MG tablet 1 tablet, Oral, q4h PRN oxyCODONE-acetaminophen (PERCOCET) 5-325 MG tablet 1 tablet, Oral, q4h PRN simethicone (MYLICON) chew tablet 160 mg, Oral, 4X/day - PC & NIGHTLY PRN sodium phosphate rectal (FLEET SALINE) enema 133 mL, Rectal, QDAY PRN A/P: 23 year old y/o s/p supracervical hysterecotmy POD # 5 1. Heme/Onc 1. Hgb on 12/23 9.6 and stable, plts stable 2. S/p 1U pRBCs and 1u FFP intraop 2. ID 1. Continue 7 day course keflex for incisional cellulitis 3. 1. UOP adequate 4. Resp 1. desats on post op day 1 and 2, now resolved. Echo and CXR wnl. 5. CV 1. Pre-eclampsia with SF- Stayed yesterday due to BPs. Now 130s/70s. 6. Endocrine 1. A2GDM, blood sugars below 200 7. GI 1. Pt tolerating regular diet, pepcid for GI ppx Lynda Sanchez MD 12/26/2018 5:58 AM Pager: [phone] After 17:30 and before 7:00: call [phone] * Viri Macario RN - 12/26/2018 3:59 AM CDT Problem: Goal: Maternal assessment is within expected range. Outcome: Ongoing Goal: Incision site is free of redness, swelling and/or warmth and is well approximated Outcome: Ongoing Problem: Pain/Discomfort Goal: Patient exhibits reduced pain/discomfort as evidenced by pain scores Outcome: Ongoing Goal: Patient uses pharmacological and non-pharmacological pain management strategies. Outcome: Ongoing Goal: Patient verbalizes acceptable level of pain relief and ability to engage in desired activity. Outcome: Ongoing Problem: Infection Goal: Signs and symptoms of infections are decreased or avoided Outcome: Ongoing Problem: High Risk for BIOLOGICAL ENGINEER Injury Related to Hypertension Goal: Blood Pressure Remains within Acceptable Limits Outcome: Ongoing * Reema Moreno MD - 12/26/2018 12:35 AM CDT R2 Progress Note Pt d/w RN, no concerns Chart reviewed VS WNL UOP NR, patient voiding independently Reema Moreno MD 12/26/2018 12:35 AM * Doretha Mccann MD - 12/25/2018 11:26 AM CDT Industrial Organization Manager Onc Note No issues overnight. Denies fevers/chills. Pain controlled. Patient Vitals for the past 6 hrs: Temp Pulse Resp BP BP Method 12/25/18 0810 98 ??F (36.7 ??C) 72 18 138/84 Automatic 12/25/18 0550 -- 60 20 145/86 Automatic Gen: NAD CV: normal perfusion Resp: nonlabored, RA Abd: soft, appropriately tender, incision c/d/i with some surrounding erythema R>L but regressing Ext: nontender Continue keflex for 7 day course Will need staple removal 2 weeks s/p surgery. Will have office arrange. Stable for dc today. Doretha Mccann MD Mechanical Design Engineer of Gynecologic Oncology Dept of Obstetrics, Gynecology, and Women's Health 12/25/2018 11:26 AM * Deann Hayes RN - 12/25/2018 8:19 AM CDT Problem: Goal: Maternal assessment is within expected range. Outcome: Ongoing Note: VSS, assessment WNL. Will continue to monitor. Goal: Patient will return to baseline GI status Description As evidenced by: a) Tolerating preoperative diet without nausea or vomiting b) Passing flatus without difficulty c) Free from signs & symptoms of post-operative ileus formation Outcome: Ongoing * Gabrielle Lui MD - 12/25/2018 8:00 AM CDT PGY1 OB Post- Note 12/25/2018, 8:00 AM Subjective: Cait Mathews had an uneventful night. Pain is controlled. Lochia is small amount. She reports flatus passed. She denies headache, fever, chest pain, shortness of breath, and leg pain. She has ambulated and denies lightheadedness. Chapin is absent. Patient is voiding spontaneously. Above is per nurse report. Patient was in the NICU during rounds. Yesterday, patient was wanting togo home. Objective: Temp (36hrs) Max:98.4 ??F (36.9 ??C) Patient Vitals for the past 24 hrs: Temp Pulse Resp BP 12/25/18 0550 -- 60 20 145/86 12/25/18 0440 98.1 ??F (36.7 ??C) 79 20 152/95 12/25/18 0025 98.1 ??F (36.7 ??C) 78 22 139/83 12/24/18 2037 98.1 ??F (36.7 ??C) -- 22 134/76 12/24/18 1646 98.3 ??F (36.8 ??C) 80 22 138/83 12/24/18 1250 98.3 ??F (36.8 ??C) 77 20 132/77 12/24/18 0828 98.1 ??F (36.7 ??C) 87 24 149/88 Intake/Output Summary (Last 24 hours) at 12/25/2018 0800 Last data filed at 12/25/2018 0440 Gross per 24 hour Intake 1020 ml Output 1600 ml Net -580 ml PE: General: alert, cooperative in no acute distress Lungs: nonlabored respirations Abdomen: BS+. Soft, appropriately tender; fundus firm below umbilicus. Incision: dressing clean/dry/intact Extremities: no calf tenderness, no palpable cords Data: Recent Labs Component Name 12/23/18 0707 12/22/18 1915 12/22/18 0729 WBC 9.7 12.2* 11.1* HGB 9.6* 10.7* 10.7* HCT 30.7* 32.7* 32.8* PLTCOUNT 195 180 180 Recent Labs Component Name 12/20/18 0542 ABO B RHTYPE Positive Assessment/Plan: 23 year old year old S/p section, POD # 4 1. complicated by: 1. C-hyst for accreta at 36 weeks 1. 1700 MBL 2. preE with SF 1. BP range: 132-152/76-95 2. Labetalol increased to 300 BID 3. Magnesium off 3. H/o CS x 1 4. Asthma 1. Not on any meds 5. Tobacco use 6. A2GDM 1. No FBS listed 7. Dental caries 8. Partial cervix left 9. Desaturation and tachypnea overnight 1. CXR: negative 2. EKG: WNL 3. CBC/CMP: WNL 4. Echo: no final report 10. Cellulitis 1. Keflex for 7 days (day 2 of 7) 2. AFVSS 3. Pain is well controlled with current medications. 4. : Urinary output is adequate, 5. GI: tolerating diet, + flatus, ADAT 6. Br/Koffi/Contraception: The patient is bottle feeding and is undecided about contraception 7. Hematologic: Hgb 11.6, Pre-op Hgb 11.9 8. B+/I/-/-, HIV NR 9. DVT/PE prophylaxis: 1. Risk factors: major surgery, Body mass index is 40.9 kg/m??., state, 2. No worrisome physical exam findings; VSS 3. SCDs in bed, encourage ambulation Dispo: continue routine post- care, d/c POD 3-4 after seen by attending Gabrielle Lui MD 12/25/2018 8:00 AM Associated attestation - Cheryl Sumner MD - 12/25/2018 1:05 PM CDT Images from the original note were not included. MFM Attending I have seen and evaluated the patient with Dr. Randall. I agree with the above assessment, exams and plans by the resident. Doing well. Pain is moderately controlled. Exam: BP 149/88 Pulse 87 Temp 98.1 ??F (36.7 ??C) (Oral) Resp 24 Ht 5' (1.524 m) Wt 209 lb 6.4 oz (95 kg)SpO2 98% BMI 40.9 kg/m2 Gen - NAD Incision - jose present T shaped incision, mild erthyma around incision Patient Active Problem List Diagnosis Date Noted Delivery by hysterectomy 12/22/2018 Priority: Not Prioritized Placenta accreta affecting delivery 12/21/2018 Priority: Not Prioritized Depression Priority: Not Prioritized Bilobed placenta 12/08/2018 Priority: Not Prioritized Bilobate: Anterior & posterior with a left lateral accessory lobe: 34 weeks gestation of Priority: Not Prioritized Gestational diabetes mellitus (GDM), delivered, current hospitalization 12/05/2018 Priority: Not Prioritized Maternal asthma complicating 12/05/2018 Priority: Not Prioritized Vaginal bleeding during 11/25/2018 Priority: Not Prioritized Placenta previa with hemorrhage, delivered, current hospitalization Priority: Not Prioritized Depressive disorder 08/01/2018 Priority: Not Prioritized 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 Priority: Not Prioritized Gastroesophageal reflux disease 08/01/2018 Priority: Not Prioritized Hyperhidrosis 08/01/2018 Priority: Not Prioritized Hypertension in , preeclampsia, delivered Priority: Not Prioritized Previous delivery, antepartum condition or complication Priority: Not Prioritized Previous delivery, antepartum Priority: Not Prioritized Obesity affecting in third trimester Priority: Not Prioritized Tobacco abuse 11/09/2013 Preeclampsia 11/09/2013 Supervision of high risk , antepartum 11/09/2013 Recent Labs Component Name 12/23/18 0707 12/22/18191412/22/18 0729 HCT 30.7* 32.7* 32.8* Recent Labs Component Name 12/23/18 0707 12/22/18191412/22/18 0729 HGB 9.6* 10.7* 10.7* I have the following to add to the plan: POD 4 s/p C-hyst for accreta PreE with SF - s/p mag, on Labetalol 300 mg BID. Borderline BP persisting. Plan to increase to Labetalol 400 mg TID and monitor BP for next 24 hours. Cellulitis around incision - started in keflex A2DM - FBS 105 . Continue to monitor. Will need 6 week PP 2hr GTT Hb stable - s/p 1 units PRBC and 1unit FFP Plan for d/c home tomorrow Cheryl Sumner MD Maternal- Medicine * Kathryn Manning RN - 12/25/2018 6:32 AM CDT Shift summary: Cait was able to rest through the night. Abdominal incisions remain intact with jose; no drainage noted. InterDry at transverse incision line. Abdomen skin to right of vertical incision remains pink in color. Keflex PO continues as ordered; Cait afebrile. No vaginal bleeding. Independent with breast pumping. Working on certificate and affidavit. Aware to notify staffof any change in status. Call light and phone remain in reach. * Kathryn Manning RN - 12/25/2018 2:16 AM CDT Cait's abdomen remains pink colored to right of vertical incision line. She remains afebrile. Continuing PO Keflex as ordered. No vaginal bleeding. * Gerri Foreman MD - 12/24/2018 11:27 PM CDT R4 Progress note BP 134/76 Pulse 80 Temp 98.1 ??F (36.7 ??C) (Oral) Resp 22 Ht 5' (1.524 m) Wt 209 lb 6.4 oz (95 kg)SpO2 100% BMI 40.9 kg/m2 Labetalol increased to 300mg BID and keflex added for sellulitis Pt voiding on her own Cont routine post op care Gerri Foreman MD 12/24/2018 11:28 PM * Juana Joiner RN - 12/24/2018 8:29 PM CDT Shift summary: VSS. Patient ambulating to NICU multiple times today, tolerated well. Voiding without difficulty. Tolerating regular diet. Pain controlled with motrin, tylenol, and roxicodone. Patientreports flatus BS active. Two incisions (low transverse and midline vertical) clean, dry, jose intact. Some pinkish color noted on skin around vertical incision, dependent edema to pannus as well. Attending doctor aware, pt now receiving keflex q6 hours. Visiting in NICU. Patient stated this evening she wants to pump, set up in room. Per , they educated on pumping every 2-3 hours to stimulate milk supply and cleaning of parts. Juana Joiner RN 12/24/2018 8:33 PM * Juana Joiner RN - 12/24/2018 6:45 PM CDT Problem: Goal: Maternal assessment is within expected range. Outcome: Ongoing Note: No fundal check d/t total hysterectomy, no bleeding from vagina, mucous only. Voiding without difficulty. Pain controlled with scheduled motrin, tylenol and PRN oral roxicodone. Two incisions, (low transverse and midline vertical) clean, dry, jose intact. Some pinkish color noted on skin around vertical incision, edema as well. Drs aware, ordered keflex. Problem: Goal: Patient will return to baseline GI status Description As evidenced by: a) Tolerating preoperative diet without nausea or vomiting b) Passing flatus without difficulty c) Free from signs & symptoms of post-operative ileus formation Outcome: Ongoing Note: BS active, flatus passed. Tolerating regular diet without difficulty. Problem: Goal: Incision site is free of redness, swelling and/or warmth and is well approximated Outcome: Ongoing Note: Pinkish color and warmth noted to right side of abdomen close to vertical incision. * Doretha Mccann MD - 12/24/2018 11:38 AM CDT Industrial Organization Manager Onc Note Pain controlled. Denies fevers/chills. Denies SOB. Yessy regular diet. +Flatus. Patient Vitals for the past 6 hrs: Temp Pulse Resp BP BP Method 12/24/18 0828 98.1 ??F (36.7 ??C) 87 24 149/88 Automatic Gen: NAD CV: normal perfusion Resp: nonlabored, RA Abd: soft, appropriately tender, incision c/d/i with some surrounding erythema R>L Ext: nontender Doing well post op Reasonable to DC from surgical perspective but will defer to OB team Will start keflex for cellulitis Doretha Mccann MD Mechanical Design Engineer of Gynecologic Oncology Dept of Obstetrics, Gynecology, and Women's Health 12/24/2018 11:40 AM * Cheryl Sumner MD - 12/24/2018 10:55 AM CDT Images from the original note were not included. MFM Attending Patient not in room while rounding. I agree with the above assessment, exams and plans by the resident. Exam: BP 149/88 Pulse 87 Temp 98.1 ??F (36.7 ??C) (Oral) Resp 24 Ht 5' (1.524 m) Wt 209 lb 6.4 oz (95 kg)SpO2 98% BMI 40.9 kg/m2 Gen - NAD Patient Active Problem List Diagnosis Date Noted ??? Delivery by hysterectomy 12/22/2018 Priority: Not Prioritized ??? Placenta accreta affecting delivery 12/21/2018 Priority: Not Prioritized ??? Depression Priority: Not Prioritized ??? Bilobed placenta 12/08/2018 Priority: Not Prioritized Bilobate: Anterior & posterior with a left lateral accessory lobe: ??? 34 weeks gestation of Priority: Not Prioritized ??? Gestational diabetes mellitus (GDM), delivered, current hospitalization 12/05/2018 Priority: Not Prioritized ??? Maternal asthma complicating 12/05/2018 Priority: Not Prioritized ??? Vaginal bleeding during 11/25/2018 Priority: Not Prioritized ??? Placenta previa with hemorrhage, delivered, current hospitalization Priority: Not Prioritized ??? Depressive disorder 08/01/2018 Priority: Not Prioritized ??? 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 Gastroesophageal reflux disease 08/01/2018 Priority: Not Prioritized ??? Hyperhidrosis 08/01/2018 Priority: Not Prioritized ??? Hypertension in , preeclampsia, delivered Priority: Not Prioritized ??? Previous delivery, antepartum condition or complication Priority: Not Prioritized ??? Previous delivery, antepartum Priority: Not Prioritized ??? Obesity affecting in third trimester Priority: Not Prioritized ??? Tobacco abuse 11/09/2013 ??? Preeclampsia 11/09/2013 ??? Supervision of high risk , antepartum 11/09/2013 Recent Labs Component Name 12/23/18 0707 12/22/18191412/22/18 0729 HCT 30.7* 32.7* 32.8* Recent Labs Component Name 12/23/18 0707 12/22/18191412/22/18 0729 HGB 9.6* 10.7* 10.7* I have the following to add to the plan: POD 3 s/p C-hyst for accreta PreE with SF - s/p mag, on labetalol 200 mg BID. BP ranges 130-150/80-90s. Will increase to Labetalol 300 mg BID A2DM - FBS 105 . Continue to monitor. Will need 6 week PP 2hr GTT Hb stable - s/p 1 units PRBC and 1unit FFP Plan for d/c home tomorrow Cheryl Sumner MD Maternal- Medicine * Gabrielle Lui MD - 12/24/2018 7:25 AM CDT PGY1 OB Post- Note 12/24/2018, 7:25 AM Subjective: Cait Mathews had an uneventful night. Pain is controlled. Lochia is small amount. She reports flatus passed. She denies headache, fever, chest pain, shortness of breath, and leg pain. She has ambulated and denies lightheadedness. Chapin is absent. Patient is voiding spontaneously. Objective: Temp (36hrs) Max:98.5 ??F (36.9 ??C) Patient Vitals for the past 24 hrs: Temp Pulse Resp BP 12/24/18 0222 98.4 ??F (36.9 ??C) -- 20 130/80 12/23/18 2240 98.2 ??F (36.8 ??C) -- 28 143/91 12/23/18 1600 97.4 ??F (36.3 ??C) 75 26 153/90 12/23/18 1047 97.7 ??F (36.5 ??C) 70 21 152/83 Intake/Output Summary (Last 24 hours) at 12/24/2018 0725 Last data filed at 12/24/2018 0651 Gross per 24 hour Intake 800 ml Output 3125 ml Net -2325 ml PE: General: alert, cooperative in no acute distress Lungs: nonlabored respirations Abdomen: BS+. Soft, appropriately tender; fundus firm below umbilicus. Incision: incision clean/dry/intact with jose intact Extremities: no calf tenderness, no palpable cords Data: Recent Labs Component Name 12/23/18 0707 12/22/18 1915 12/22/18 0729 WBC 9.7 12.2* 11.1* HGB 9.6* 10.7* 10.7* HCT 30.7* 32.7* 32.8* PLTCOUNT 195 180 180 Recent Labs Component Name 12/20/18 0542 ABO B RHTYPE Positive Assessment/Plan: 23 year old year old S/p section, POD # 3 1. complicated by: 1. Poterior previa with anterior succenturiate lobe and accreta 1. S/p c-hyst 2. 1700 MBL 2. H/o 24 week CS of SGA baby 3. A2GDM 1. FBS: none listed 4. PreE with severe features 1. S/p mag x 24 hours 2. Labetalol 200 BID 3. Labs stable 4. Few mild range BPs, in the 140s-150s/90s 5. Will increase Labetalol 5. Asthma 1. No meds 6. Desaturations requiring O2 with mild tachycardia and tachynea 1. Possibly 3rd spacing 2. CXR: LL lung opacity 1. Repeat on 12/23: negative 3. EKG: sinus tachycardia 4. Echo: pending 2. AFVSS 3. Pain is well controlled with current medications. 4. : Urinary output is adequate, at 1.4 cc/kg/hr 5. GI: tolerating diet, + flatus, ADAT 6. Br/Koffi/Contraception: The patient is bottle feeding and desires is undecided about contraception 7. Hematologic: Hgb 11.6, Pre-op Hgb 11.9 8. B+/I/-/-, HIV NR 9. DVT/PE prophylaxis: 1. Risk factors: major surgery, Body mass index is 40.9 kg/m??., state, 2. No worrisome physical exam findings; VSS 3. SCDs in bed, encourage ambulation Dispo: continue routine post- care, d/c POD 3-4 after seen by attending Gabrielle Lui MD 12/24/2018 7:25 AM Associated attestation - Cheryl Sumner MD - 12/24/2018 1:59 PM CDT Images from the original note were not included. MFM Attending Patient not in room while rounding. I agree with the above assessment, exams and plans by the resident. Exam: BP 149/88 Pulse 87 Temp 98.1 ??F (36.7 ??C) (Oral) Resp 24 Ht 5' (1.524 m) Wt 209 lb 6.4 oz (95 kg)SpO2 98% BMI 40.9 kg/m2 Gen - NAD Patient Active Problem List Diagnosis Date Noted Delivery by hysterectomy 12/22/2018 Priority: Not Prioritized Placenta accreta affecting delivery 12/21/2018 Priority: Not Prioritized Depression Priority: Not Prioritized Bilobed placenta 12/08/2018 Priority: Not Prioritized Bilobate: Anterior & posterior with a left lateral accessory lobe: 34 weeks gestation of Priority: Not Prioritized Gestational diabetes mellitus (GDM), delivered, current hospitalization 12/05/2018 Priority: Not Prioritized Maternal asthma complicating 12/05/2018 Priority: Not Prioritized Vaginal bleeding during 11/25/2018 Priority: Not Prioritized Placenta previa with hemorrhage, delivered, current hospitalization Priority: Not Prioritized Depressive disorder 08/01/2018 Priority: Not Prioritized 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 Priority: Not Prioritized Gastroesophageal reflux disease 08/01/2018 Priority: Not Prioritized Hyperhidrosis 08/01/2018 Priority: Not Prioritized Hypertension in , preeclampsia, delivered Priority: Not Prioritized Previous delivery, antepartum condition or complication Priority: Not Prioritized Previous delivery, antepartum Priority: Not Prioritized Obesity affecting in third trimester Priority: Not Prioritized Tobacco abuse 11/09/2013 Preeclampsia 11/09/2013 Supervision of high risk , antepartum 11/09/2013 Recent Labs Component Name 12/23/18 0707 12/22/18191412/22/18 0729 HCT 30.7* 32.7* 32.8* Recent Labs Component Name 12/23/18 0707 12/22/18191412/22/18 0729 HGB 9.6* 10.7* 10.7* I have the following to add to the plan: POD 3 s/p C-hyst for accreta PreE with SF - s/p mag, on labetalol 200 mg BID. BP ranges 130-150/80-90s. Will increase to Labetalol 300 mg BID A2DM - FBS 105 . Continue to monitor. Will need 6 week PP 2hr GTT Hb stable - s/p 1 units PRBC and 1unit FFP Plan for d/c home tomorrow Cheryl Sumner MD Maternal- Medicine * Isabela Reyes RN - 12/23/2018 10:52 PM CDT Problem: Goal: Patient will return to baseline GI status Description As evidenced by: a) Tolerating preoperative diet without nausea or vomiting b) Passing flatus without difficulty c) Free from signs & symptoms of post-operative ileus formation Outcome: Ongoing Note: Abdomen distended, bowel sounds hypoactive, patient walking and passing flatus. Goal: Incision site is free of redness, swelling and/or warmth and is well approximated Outcome: Ongoing Note: Incision well approximated with jose intact, no drainage. * Marylu Sutherland RN - 12/23/2018 7:59 PM CDT Shift summary: VSS. Assessment WNL. Up ad rafa and tolerating ambulation well. Voiding without difficulty. Pain controlled with Motrin andTylenol. is in the NICU. Pt goes to visit frequently. . No further concerns at this time. Will continue to monitor. * Marylu Sutherland RN - 12/23/2018 7:59 PM CDT Problem: Goal: Maternal assessment is within expected range. Outcome: Ongoing Goal: Patient will return to baseline GI status Description As evidenced by: a) Tolerating preoperative diet without nausea or vomiting b) Passing flatus without difficulty c) Free from signs & symptoms of post-operative ileus formation Outcome: Ongoing Note: Bowl sounds are active. Pt voiding without difficulty. Goal: Respiratory effort without distress or complications Outcome: Ongoing Goal: Incision site is free of redness, swelling and/or warmth and is well approximated Outcome: Ongoing Note: Incision clean and dry with edges well approximated. Problem: Pain/Discomfort Goal: Patient exhibits reduced pain/discomfort as evidenced by pain scores Outcome: Ongoing Goal: Patient uses pharmacological and non-pharmacological pain management strategies. Outcome: Ongoing Goal: Patient verbalizes acceptable level of pain relief and ability to engage in desired activity. Outcome: Ongoing Problem: Infection Goal: Signs and symptoms of infections are decreased or avoided Outcome: Ongoing Problem: Emotional Well-Being Goal: Patient participates in decision-making and choices for care. Outcome: Ongoing Goal: Parent- bonding occurs Outcome: Ongoing Problem: High Risk for BIOLOGICAL ENGINEER Injury Related to Hypertension Goal: Blood Pressure Remains within Acceptable Limits Outcome: Ongoing Goal: Fluid and electrolyte balance are achieved/maintained Outcome: Ongoing Goal: No Symptoms of Headache or Visual Disturbances Outcome: Ongoing Goal: Maintains Level of Consciousness Outcome: Ongoing Goal: Absence of Seizures Description No seizures or other Central Nervous System damage is evident. Outcome: Ongoing Goal: Serum Magnesium Level is within Therapeutic Level Outcome: Ongoing Problem: Respiratory Status Description High risk for altered respiratory function: Decreased related to excessive fluid volume (pulmonary edema). Goal: Vital Signs are medically acceptable Outcome: Ongoing Goal: Signs/Symptoms of Pulmonary Edema Avoided Outcome: Ongoing Goal: Respiratory rate will be within normal limits for patient. Outcome: Ongoing Problem: High Risk for Hepatic Injury Goal: Signs/Symptoms of Hepatic Injury are Avoided Description No signs or symptoms of hepatic injury or rupture are observed. Outcome: Ongoing Goal: Jaundice is Documented Outcome: Ongoing Goal: Normal or Improving Liver Function Studies Outcome: Ongoing Problem: Anxiety and Fear Description Anxiety and fear related to risk of harm to self and fetus. Goal: Anxiety is at manageable level Outcome: Ongoing Goal: Verbalizes Understanding of Disease Process and Treatment Outcome: Ongoing Goal: Family Members Act as Support System Outcome: Ongoing * Essence Faria MD - 12/23/2018 5:35 PM CDT R2 Progress Note In room for afternoon rounds. Patient moving without difficulty. Denies SOA or CP. Denies BARRERA, vision changes and RUQ pain. PE: VSS O2 sats 95-98% today on RA CV: non labored breathing Abdomen: jose in place without erythema or discharge Extremities: no calf tenderness Plan: - CXR clear lungs, need to FU ECHO - Ctn to monitor O2 sats ovn - Monitor BPs as pre-E with SF. Moderately controlled on labetalol 200 q12H - Routine PP care Essence Faria MD 12/23/2018 5:37 PM * Candis Moreau LSW - 12/23/2018 3:43 PM CDT Social Service involved. Will provide resources and support to identify barriers to a safe d/c. Refer to SS note. Candis Moreau LCSW [phone] l * Jolanta Gutierrez RN - 12/23/2018 10:45 AM CDT 12/26/18 Spoke w/javascript front end developer staff, nursing not available at this time. Provided brief update on MS Mathews who has been hospitalized since 11/25/18 due to 3rd bleed from placenta previa w/increta. Pt delivered by hysterectomy on 12/21/18. Baby Girl Reid arrived at 1133,weight was 2060 gms, @ 36 wks, 's were 8/4/9. Baby Girl is residing in the NICU and has been transitioned from Bubble c-pap. Ms Mathews is formula feeding. + tachypnea, echo in progress. S/P lasix, afebrile. Will forward complete information at that time of discharge which is anticipated to take place tomorrow. 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 Pain is fairly well controlled with tylenol, motrin, and PRN judith/perc. She reports flatus. Tolerating regular diet. She has ambulated and denies lightheadedness. Chapin absent, patient voiding without difficulty. She denies headache, fever, chest pain, shortness of breath, and leg pain. Objective: Temp (24hrs) Max:98.5 ??F (36.9 ??C) Vitals: 12/23/18 0410 12/23/18 0430 12/23/18 0440 12/23/18 0600 BP: 144/79 127/71 Pulse: 100 91 Resp: 28 24 20 Temp: 98.1 ??F (36.7 ??C) 98.3 ??F (36.8 ??C) SpO2: 93% 97% 96% 95% Weight: Height: Intake/Output Summary (Last 24 hours) at 12/23/2018 0752 Last data filed at 12/23/2018 0432 Gross per 24 hour Intake 1623.4 ml Output 3250 ml Net -1626.6 ml Exam: General: alert, cooperative, in no acute distress Heart: regular rate and rhythm. No murmurs auscultated. Lungs: Clear to auscultation bilaterally. No wheezes, rhales, rhonchi. Abdomen: Bowel Sounds +. Soft. Non-distended. Appropriately tender to palpation. Incision: incision clean, dry and intact Extremities: Non-tender. No edema. SCDs are in place. Data: Recent Labs Component Name 12/23/18 0707 12/22/18 1915 12/22/18 0729 WBC 9.7 12.2* 11.1* HGB 9.6* 10.7* 10.7* HCT 30.7* 32.7* 32.8* PLTCOUNT 195 180 180 MEDICATIONS FOR CURRENT ENCOUNTER: ?? SCHEDULED MEDICATIONS: ?? 0.9% NaCl injection 3 mL, Intracatheter, q8h ?? 0.9% NaCl injection 3 mL, Intracatheter, q8h ?? acetaminophen (TYLENOL) tablet 650 mg, Oral, q6h ?? docusate sodium (COLACE) capsule 100 mg, Oral, BID ?? famotidine (PEPCID) tablet 20 mg, Oral, QDAY ?? ibuprofen (MOTRIN) tablet 600 mg, Oral, q6h ?? iron polysaccharides (NIFEREX 150) capsule 150 mg, Oral, QDAY ?? labetalol (NORMODYNE; TRANDATE) tablet 200 mg, Oral, q12h ?? measles, mumps and rubella vaccine (MMR) injection 0.5 mL, Subcutaneous, Immunization - Once ?? vitamin with iron tablet 1 tablet, Oral, QDAY ?? Tdap (nlgmmga-bwfkjcxxiv-lbfez pertussis) (BOOSTRIX) (7y+) injection 0.5 mL, Intramuscular, Immunization - Once ?? [COMPLETED] ketorolac (TORADOL) injection 30 mg, Intravenous, q6h ?? CONTINUOUS MEDICATIONS: ?? PRN MEDICATIONS: ?? Or ?? Or ?? Or ?? 0.9% NaCl infusion rate and volume, Intravenous, Once PRN ?? 0.9% NaCl injection 1-10 mL, Intracatheter, PRN ?? 0.9% NaCl injection 3 mL, Intracatheter, PRN ?? benzocaine-menthol (DERMOPLAST) spray, Topical, PRN ?? bisacodyl (DULCOLAX) suppository 10 mg, Rectal, QDAY PRN ?? bisacodyl EC (DULCOLAX) tablet 5 mg, Oral, QDAY PRN ?? calcium carbonate (TUMS) chew tablet 2 tablet, Oral, q4h PRN ?? diphenhydrAMINE (BENADRYL) capsule 25 mg, Oral, AT BEDTIME PRN ?? hemorrhoidal (PREPARATION H) ointment OINT, Rectal, TID PRN ?? HYDROmorphone (DILAUDID) injection 0.4 mg, Intravenous, q4h PRN ?? lanolin ointment, Topical, PRN ?? magnesium hydroxide (MILK OF MAGNESIA) suspension 30 mL, Oral, QDAY PRN ?? oxyCODONE (immediate release) (ROXICODONE) tablet 10 mg, Oral, q4h PRN ?? oxyCODONE (immediate release) (ROXICODONE) tablet 5 mg, Oral, q4h PRN ?? oxyCODONE-acetaminophen (PERCOCET) 10-325 MG tablet 1 tablet, Oral, q4h PRN ?? oxyCODONE-acetaminophen (PERCOCET) 5-325 MG tablet 1 tablet, Oral, q4h PRN ?? simethicone (MYLICON) chew tablet 160 mg, Oral, 4X/day - PC & NIGHTLY PRN ?? sodium phosphate rectal (FLEET SALINE) enema 133 mL, Rectal, QDAY PRN ?? A/P: Cait Mathews is a 23 year old female s/p supracervical ceserean hysterectomy POD # 2. Currently afebrile and VSS. 1. A2GDM; fasting BG = 108 2. Pre-E w/ severe features 1. Labetalol 200mg BID 2. BP has been stable; continue to monitor 3. S/p supracervical ceserean hysterectomy PO day 2 1. Had episode of tachypnea w/ drop in O2 sats to low 90s the previous night (12/22). Given O2 via nc and stabilized. CXR was ordered which showed LL lobe infiltrate. Had repeat episode of tachypnea/desat overnight (93%) along with sinus tach. 2. Repeat CXR, EKG ordered 3. Atelectasis vs pain vs TYRONE vs PE vs cardiomyopathy vs preE 4. Encourage use of incentive spirometer and ambulation 5. Consider CT PE 4. : Urinary output is adequate (0.5cc/kg/hr) 5. GI: Patient tolerating regular diet. 6. Pain is well controlled with current meds 7. DVT Prophylaxis: Encourage increased ambulation. Sequential compressive devices while in bed. 8. Continue routine post-operative care Eddie Bledsoe, 3 12/23/2018 7:52 AM Associated attestation - Essence Faria MD - 12/30/2018 5:45 AM CDT This note is for the educational benefit of the medical student. Please see resident note for treatment details. Essence Faria MD 12/30/2018 5:45 AM * Tg Perez MD - 12/23/2018 6:50 AM CDT PGY-4 OB Post- Note 12/23/2018, 7:06 AM Subjective: Cait Mathews has somewhat controlled pain. She reports flatus passed. She denies headache, fever, chest pain, shortness of breath, and leg pain. She has not ambulated and denies lightheadedness. Chapin is absent. Patient is voiding spontaneously. Objective: Temp (36hrs) Max:99 ??F (37.2 ??C) Patient Vitals for the past 24 hrs: Temp Pulse Resp BP 12/23/18 0600 98.3 ??F (36.8 ??C) 91 20 127/71 12/23/18 0440 -- -- 24 -- 12/23/18 0410 98.1 ??F (36.7 ??C) 100 28 144/79 12/23/18 0034 98.5 ??F (36.9 ??C) -- 28 138/69 12/22/18 1945 98.5 ??F (36.9 ??C) 90 28 145/91 12/22/18 1505 98.3 ??F (36.8 ??C) 96 22 150/76 12/22/18 1145 -- 98 22 134/82 12/22/18 1005 98.1 ??F (36.7 ??C) 98 22 145/80 12/22/18 0848 -- 105 22 -- 12/22/18 0830 98.1 ??F (36.7 ??C) 102 24 139/81 Intake/Output Summary (Last 24 hours) at 12/23/2018 0706 Last data filed at 12/23/2018 0432 Gross per 24 hour Intake 3094.37 ml Output 3250 ml Net -155.63 ml PE: General: alert, cooperative in no acute distress Lungs: nonlabored respirations Abdomen: BS+. Soft, appropriately tender; fundus firm below umbilicus. Incision: incision clean/dry/intact with skin clips in place Extremities: no calf tenderness, no palpable cords Data: Recent Labs Component Name 12/22/18 1915 12/22/18 0729 12/21/18 1618 WBC 12.2* 11.1* 18.1* HGB 10.7* 10.7* 11.6* HCT 32.7* 32.8* 34.6* PLTCOUNT 180 180 175 Recent Labs Component Name 12/20/18 0542 ABO B RHTYPE Positive Assessment/Plan: 23 year old year old with 1. A2GDM 1. FBS 108 2. Pre-E with severe features 1. S/p Mag x24 hous 2. Labetalol 200 BID 3. Labs stable, BPs stable 3. S/p hysterectomy section, POD # 2 1. Desaturations requring O2 with mild tachycardia and tachypnea- suspect mild 3rd spacing. Diuresing well. CXR showed LL lung opacity. Repeat today. Was able to transition to RA ytd then desat to 92% 2. EKG sinus tachycardia. Getting Echocardiogram today 3. : Urinary output is adequate, chapin out 4. GI: yessy reg diet, + flatus 5. Br/Koffi/Contraception: The patient is bottle feeding 6. Counseled that she still has part of cervix 7. Hematologic: stable after 1 u FFP and 1 u pRBCS 8. Pain is well controlled with current medications. 9. B+/I/-/-, HIV NR 10. DVT/PE prophylaxis: 1. Risk factors: major surgery, Body mass index is 40.9 kg/m??., state, 2. No worrisome physical exam findings; VSS 3. SCDs in bed, encourage ambulation, 4. Dispo: continue post- care, d/c POD 3-4 after seen by attending likely. To PSCU today Tg Perez MD 12/23/2018 7:06 AM Associated attestation - Gely Medina MD - 12/23/2018 2:48 PM CDT [facility] I have reviewed Cait Mathews who is a 23 year old with the OB resident team. We have discussed her recent clinical course. Cait is now POD#2 s/p a hysterectomy for placenta increta. Her was complicated by a posterior previa with anterior succenturiate lobe and her hi story of a prior 34 week CD of a SGA in addition to preeclampsia that was without severe features until the immediate postoperative period when there was severe hypertension and insulin-requiring GDM. I have evaluated and counseled her. Her only complaint is of fatigue. She specifically denies SOB and chest pain. Exam: BP 127/71 Pulse 91 Temp 98.3 ??F (36.8 ??C) (Oral) Resp 20 Ht 5' (1.524 m) Wt 209 lb 6.4 oz (95 kg)SpO2 95% BMI 40.9 kg/m2 BPmax 150/76 O2 sat 93-98% on RA, HRmax 100 bpm UOP 1500 / 900 / 850 mL over the last 3 shifts, net negative 200 mL over the last 72 hours Gen - comfortable, alert, cooperative Abd - soft, appropriately TTP Incision - c/d/i Ext - no calf tenderness CXRs: Today: cardiomegaly with normal vessels - lungs are clear 12/22: A single view of the chest shows cardiomegaly with normal vessels. There may be a small infiltrate at the left base. Right lung is clear. Recent Labs Component Name 12/23/18 0707 12/22/18 1915 12/22/18 0729 WBC 9.7 12.2* 11.1* RBC 3.29* 3.61* 3.62* HGB 9.6* 10.7* 10.7* HCT 30.7* 32.7* 32.8* MCV 93.3 90.6 90.6 MCHC 31.3 32.7 32.6 PLTCOUNT 195 180 180 NEUTPCT 76.6* 80.8* 83.2* LYMPHPCT 14.9* 11.5* 10.1* BASOPHILPCT 0.2 0.2 0.3 GRANSIMMPCT 1.0 1.8* 1.5* NEUTABS 7.44* 9.81* 9.20* LYMPHABS 1.45 1.40 1.12 BASOABS 0.02 0.03 0.03 Recent Labs Component Name 12/23/18 0707 12/22/18 0729 12/21/18 1618 SODIUM 139 136 136 POTASSIUM 3.9 4.1 4.0 CHLORIDE 107 104 108* CO2 24 22* 19* BUN 5* 4* 5* CREATININE 0.50* 0.41* 0.37* GLUCOSE 105 112* 76 CALCIUM 8.7 8.2* 8.1* ALT 12* 12* 13 ALKPHOS 113 141 142 AST 15 19 18 TBIL 0.3 0.3 0.3 TPROT 5.2* 5.3* 4.9* EGFR >60 >60 >60 EGFRAFR >60 >60 >60 Recent Labs Component Name 12/22/18 0729 12/21/18 2140 11/14/13 2150 FIBRINOGEN 620* 503* 438 Glucose Bedside (mg/dL) 12/22/18 0635 108 mg/dL 12/21/18 0615 86 mg/dL I have the following additions/revision to the plan: Await results of echo and continue to monitor O2 sat closely. Use of incentive spirometer encouraged. Continue to monitor BPon labetalol 200 mg q12h, for now. Increase dose for SBPs that are persistently 150s or higher or DBPs 100s or higher. 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 Pain is controlled. She reports flatus passed. She has ambulatedand denies lightheadedness. Chapin absent, patient is voiding without difficulty. She denies headache, fever, chest pain, shortness of breath, and leg pain. Objective: Temp (24hrs) Max:98.5 ??F (36.9 ??C) Patient Vitals for the past 24 hrs: Temp Pulse Resp BP SpO2 12/23/18 0600 98.3 ??F (36.8 ??C) 91 20 127/71 95 % 12/23/18 0440 -- -- 24 -- 96 % 12/23/18 0430 -- -- -- -- 97 % 12/23/18 0410 98.1 ??F (36.7 ??C) 100 28 144/79 93 % 12/23/18 0034 98.5 ??F (36.9 ??C) -- 28 138/69 97 % 12/22/18 1945 98.5 ??F (36.9 ??C) 90 28 145/91 98 % 12/22/18 1505 98.3 ??F (36.8 ??C) 96 22 150/76 97 % 12/22/18 1245 -- -- -- -- 95 % 12/22/18 1145 -- 98 22 134/82 90 % 12/22/18 1005 98.1 ??F (36.7 ??C) 98 22 145/80 94 % 12/22/18 0848 -- 105 22 -- 93 % 12/22/18 0830 98.1 ??F (36.7 ??C) 102 24 139/81 92 % Intake/Output Summary (Last 24 hours) at 12/23/2018 0620 Last data filed at 12/23/2018 0432 Gross per 24 hour Intake 3096.37 ml Output 3250 ml Net -153.63 ml Exam: General: alert, cooperative, in no acute distress Heart: regular rate and rhythm. No murmurs auscultated. Lungs: Clear to auscultation bilaterally. No wheezes, rhales, rhonchi. Abdomen: Bowel Sounds normal. Soft. Non-distended. Appropriately tender to palpation. Dressing in place no strike through Incision: incision clean, dry and intact Extremities: Non-tender. No edema. Data: Recent Labs Component Name 12/22/18 1915 12/22/18 0729 12/21/18 1618 WBC 12.2* 11.1* 18.1* HGB 10.7* 10.7* 11.6* HCT 32.7* 32.8* 34.6* PLTCOUNT 180 180 175 Recent Labs Component Name 12/22/18 0729 12/21/18 1618 12/21/18 0839 SODIUM 136 136 136 POTASSIUM 4.1 4.0 4.0 CHLORIDE 104 108* 107 CO2 22* 19* 20* BUN 4* 5* 8 CREATININE 0.41* 0.37* 0.44* GLUCOSE 112* 76 96 CALCIUM 8.2* 8.1* 8.9 MEDICATIONS FOR CURRENT ENCOUNTER: SCHEDULED MEDICATIONS: 0.9% NaCl injection 3 mL, Intracatheter, q8h 0.9% NaCl injection 3 mL, Intracatheter, q8h acetaminophen (TYLENOL) tablet 650 mg, Oral, q6h ibuprofen (MOTRIN) tablet 600 mg, Oral, q6h iron polysaccharides (NIFEREX 150) capsule 150 mg, Oral, QDAY labetalol (NORMODYNE; TRANDATE) tablet 200 mg, Oral, q12h measles, mumps and rubella vaccine (MMR) injection 0.5 mL, Subcutaneous, Immunization - Once vitamin with iron tablet 1 tablet, Oral, QDAY Tdap (mclatcr-ghqdmspqdn-icrke pertussis) (BOOSTRIX) (7y+) injection 0.5 mL, Intramuscular, Immunization - Once [COMPLETED] ketorolac (TORADOL) injection 30 mg, Intravenous, q6h CONTINUOUS MEDICATIONS: dextrose 5% and lactated ringers solution, Intravenous, Continuous PRN MEDICATIONS: Or Or Or 0.9% NaCl infusion rate and volume, Intravenous, Once PRN 0.9% NaCl injection 1-10 mL, Intracatheter, PRN 0.9% NaCl injection 3 mL, Intracatheter, PRN benzocaine-menthol (DERMOPLAST) spray, Topical, PRN bisacodyl (DULCOLAX) suppository 10 mg, Rectal, QDAY PRN bisacodyl EC (DULCOLAX) tablet 5 mg, Oral, QDAY PRN calcium carbonate (TUMS) chew tablet 2 tablet, Oral, q4h PRN diphenhydrAMINE (BENADRYL) capsule 25 mg, Oral, AT BEDTIME PRN hemorrhoidal (PREPARATION H) ointment OINT, Rectal, TID PRN HYDROmorphone (DILAUDID) injection 0.4 mg, Intravenous, q4h PRN lanolin ointment, Topical, PRN magnesium hydroxide (MILK OF MAGNESIA) suspension 30 mL, Oral, QDAY PRN oxyCODONE (immediate release) (ROXICODONE) tablet 10 mg, Oral, q4h PRN oxyCODONE (immediate release) (ROXICODONE) tablet 5 mg, Oral, q4h PRN oxyCODONE-acetaminophen (PERCOCET) 10-325 MG tablet 1 tablet, Oral, q4h PRN oxyCODONE-acetaminophen (PERCOCET) 5-325 MG tablet 1 tablet, Oral, q4h PRN simethicone (MYLICON) chew tablet 160 mg, Oral, 4X/day - PC & NIGHTLY PRN sodium phosphate rectal (FLEET SALINE) enema 133 mL, Rectal, QDAY PRN A/P: 23 year old y/o s/p supracervical hysterectomy POD # 2 1. Heme/Onc 1. Received 1 U PRBCs and 1 U FFP intraop 2. Hgb 10.7 from 11.6- today pending 3. Plts stable 175 > 180 yesterday 4. SCDs for DVT ppx 2. 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 Prior h/o CS x1 2. 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 S/p supracervical hysterectomy 3. 1. S/p chapin 2. Urinary output is adequate at 1.5 cc/kg/hr 4. Resp 1. Desat on 12/22 to 90-97%, placed on NC O2 2. CXR with small L base infiltrate on 12/22 1. Concern on for cardiomegaly, ECHO ordered 3. Called for sat of 93% and mild tachypnea ovn 4. Lungs CTAB 5. EKG sinus tach ovn 6. Encouraged ICS 5. CV 1. Pre-E with severe features 2. S/p Magnesium for seizure ppx 3. BPs 130-150/60-90, overall well controlled 4. Ctn labetalol 200 q12h 6. Endocrine 1. A2GDM, FBS 108 7. HEENT 1. Dental caries 2. S/p amoxicillin 8. GI 1. Patient tolerating full diet. 2. Pepcid for ppx Pain is well controlled with current medications. DVT Prophylaxis: Encourage increased ambulation. Sequential compressive devices while in bed. Continue routine post-operative care Essence Faria MD 12/23/2018 6:20 AM Pager: [phone] After 17:30 and before 7:00: call [phone] Associated attestation - Doretha Mccann MD - 12/23/2018 8:11 AM CDT Industrial Organization Manager Onc Attending Addendum I have personally seen and examined the patient and agree with the documentation by Dr. Faria. Apparently concern for tachypnea overnight with highest RR 28 and lowest O2 90%. Patient herself isasymptomatic. Denies any respiratory sx, fever, or increased pain during the times when vitals are abnormal. Minimal usage of IS. Encouraged increase today. Plan is for ECHO today per OB team. From asurgical standpoint, actually doing quite well. Incision is c/d/I. HDS. Tolerating regular diet, voi ding, ambulating, +flatus. Continue routine post op care. Pending cardiac/resp workup, potential DCtomorrow. Doretha Mccann MD Mechanical Design Engineer of Gynecologic Oncology Dept of Obstetrics, Gynecology, and Women's Health 12/23/2018 8:08 AM * Kelley Rocha MD - 12/23/2018 5:44 AM CDT Called by FLEX Jackson with concerns for patient vital signs. Pt with mild tachypnea and O2 sats 93-97%. To room to evaluate. Patient sleeping comfortably. She denies any symptoms including shortness of breath and chest pain. She reports incisional pain at 710. BP 127/71 Pulse 91 Temp 98.3 ??F (36.8 ??C) (Oral) Resp 20 Ht 5' (1.524 m) Wt 209 lb 6.4 oz (95 kg)SpO2 95% BMI 40.9 kg/m2 Heart: RRR Lungs: CTA BL Abd: incision covered, dressing clean/dry/intact. Appropriately tender to palpation. No erythema. Extremities: Non-tender to palpation. Mild pedal edema bilaterally. Plan: - Stat CXR and EKG, ECHO - Stat CBC and CMP - If CXR is negative, and symptoms persist, consider CT PE - Continue adequate pain control Continue to monitor. Discussed with Drs. Felton and Aaron. Kelley Rocha MD 12/23/2018 6:21 AM * Renetta Padron RN - 12/23/2018 5:30 AM CDT Shift Summary: VSS. Pt had one event of desating to 93%, pt denied chest pain or SOB. Pt had a RR of 28 on 2 occassions. After getting up and going to the bathroom, pt's O2 sat guerrero to 95% and RR ranged from 20-24. Fundus firm, midline. Scant to small lochia, no presence of clots. [place] intact, dressing was replaced on T incision. Pt complains of a lot of pain. Given PO and IV pain medications. Ambulating with SBA. Tolerating regular diet. Voiding independently. Infant is in the NICU. Pt denies any questions or concerns at this time. Will continue to monitor. * Renetta Padron RN - 12/23/2018 3:48 AM CDT Maternal assessment WDL. Will continue to monitor. * Reema Moreno MD - 12/23/2018 1:38 AM CDT R2 Progress Note D/w RN who reports patient is doing well. Sleeping soundly. Chart reviewed VS notable for tachypnea with normal O2 sat on RA UOP 650cc per RN; 0.98 cc/kg/hr from 1800 to 0100hrs Reema Moreno MD 12/23/2018 1:38 AM * Sari Peguero RN - 12/22/2018 5:34 PM CDT VSS. Able to remove pt from magnesium treatment today and ween from oxygen. Currently on room air. Pain controlled with scheduled and PRN medication. Incisions covered with clean/dry dressings. Fundus firm and midline with a small amount of lochia. Perineum swollen. Chapin discontinued today and pt up to the bathroom with standby assist. Infant in the NICU and mother is bottle feeding. Was able tovisit this evening with family present. 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 Pain controlled. Voided spontaneously. Not yet passing flatus. Feels bowels moving. Denies nausea/vomiting. Ambulating without issue. Does not have abdominal binder in place but plans to have it placed when she gets up to go to NICU. Tolerating regular diet Patient Vitals for the past 6 hrs: Temp Pulse Resp BP BP Method 12/22/18 1505 98.3 ??F (36.8 ??C) 96 22 150/76 Automatic 12/22/18 1145 -- 98 22 134/82 Automatic Plan: Tolerating regular diet, had a salad for lunch. No N/V Monitor UOP, chapin out, spontaneously voiding Incision clean/dry/intact. Abdominal binder to be placed Continue pain control, currently no issues Ambulating Continue other management per primary team Mercy Merchant MD 12/22/2018 4:53 PM * Ksenia Mg I - 12/22/2018 11:14 AM CDT Problem: Biochemical: Altered nutrition-related laboratory values Goal: Biochemical: Other (Comments) Description Elevated fasting BG at GTT Goal of FBS <90mg/dl and 1 hr PP ,130 mg/ dl 12/22/2018 1114 by Ksenia Mg I Outcome: Ongoing 12/22/2018 1114 by Ksenia Mg I Reactivated CLINICAL NUTRITION REASSESSMENT Assessment: Pt was seen today for follow up, she was resting in bed and said she was going to try to eat a goodlunch , family coming and bringing food . PO Intake Average (last 72 hours): % Meal Taken Av % Min: 100 % Max: 100 % . Pt is screened 2/2 BMI >40 a potential health risk , she could benefit from weight loss and diet education once she is fully recovered . She had C- section / AL and could benefit from Zack to promote wound healing 2/2 MO. Zack (Wound Healing Supplement) provides 90 calories, 14 grams amino acid (7 gm L-arginine & 7 gm L- glutamine), 2.5 grams protein (hydrolyzed collagen), 8 grams of carb per serving along with 9.5mg Zinc, 300mg Vit C, 15 mg Vitamin E, and 1.2 mcg Vitamin B12 ,a low calorie , low carb and high protein drink. She agreed to try fruit punch Zack on L&D trays . Zack (Wound Healing Supplement) provides 90 calories, 14 grams amino acid (7 gm L-arginine & 7 gm L-glutamine), 2.5 grams protein (hydrolyzed collagen), 8 grams of carb per serving along with 9.5mg Zinc, 300mg Vit C, 15 mg Vitamin E, and 1.2 mcg Vitamin B12.Low H&H noted and agree with , now s/p 1 UPRBC and 1UFFP . She had A2 GDM ,off insulin drip that was running during L&D , FBS 108 . Continue to follow accu- checks ., recommend 2 hr GTT at 6 week check .Follow at moderate risk . Med/Surg History and Clinical Diagnoses: POD # 1 s/p C-Hyst pre- eclampsia with severe features fluid overload , A2 GDM , bottle feeding for in NICU Current diet order: Regular Food Allergies: No known food allergies P.O intake for past 48 hrs: % Meal Taken Av % Min: 100 % Max: 100 % % Oral Supplement Intake:No data recorded Pain affecting intake: No Patient Vitals for the past 336 hrs: Weight Weight Method (Utilize Scales) 12/21/18 0614 209 lb 6.4 oz (95 kg) [facility] 12/20/18 0400 213 lb 12.8 oz (97 kg) [facility] 12/19/18 0640 211 lb 9.6 oz (96 kg) [facility] 12/18/18 0548 209 lb 8 oz (95 kg) [facility] 12/17/18 0640 210 lb 8 oz (95.5 kg) [facility] 12/16/18 0118 211 lb 9.6 oz (96 kg) [facility] 12/15/18 0545 209 lb 6.4 oz (95 kg) [facility] 12/14/18 0500 207 lb 3.2 oz (94 kg) [facility] 12/13/18 0557 205 lb (93 kg) -- 12/09/18 2355 202 lb (91.6 kg) -- No new Weight/Weight change: no weight PP , total weight gain was excessive 31 # New Meds: MEDICATIONS FOR CURRENT ENCOUNTER: SCHEDULED MEDICATIONS: 0.9% NaCl injection 3 mL, Intracatheter, q8h 0.9% NaCl injection 3 mL, Intracatheter, q8h acetaminophen (TYLENOL) tablet 650 mg, Oral, q6h iron polysaccharides (NIFEREX 150) capsule 150 mg, Oral, QDAY ketorolac (TORADOL) injection 30 mg, Intravenous, q6h labetalol (NORMODYNE; TRANDATE) tablet 200 mg, Oral, q12h measles, mumps and rubella vaccine (MMR) injection 0.5 mL, Subcutaneous, Immunization - Once vitamin with iron tablet 1 tablet, Oral, QDAY Tdap (dktxwgd-sweojgfisi-qbxjb pertussis) (BOOSTRIX) (7y+) injection 0.5 mL, Intramuscular, Immunization - Once [COMPLETED] ceFAZolin (ANCEF) 2,000 mg in 50 mL IVPB, Intravenous, Once [COMPLETED] magnesium sulfate bolus from infusion bag 4 g, Intravenous, BOLUS FROM BAG ONCE [] lactated ringers IV bolus, Intravenous, BOLUS IV CONTINUOUS MEDICATIONS: dextrose 5% and lactated ringers solution, Intravenous, Continuous magnesium sulfate 20 g in 500 mL infusion, Intravenous, Continuous PRN MEDICATIONS: Or Or Or 0.9% NaCl infusion rate and volume, Intravenous, Once PRN 0.9% NaCl injection 1-10 mL, Intracatheter, PRN 0.9% NaCl injection 3 mL, Intracatheter, PRN benzocaine-menthol (DERMOPLAST) spray, Topical, PRN bisacodyl (DULCOLAX) suppository 10 mg, Rectal, QDAY PRN bisacodyl EC (DULCOLAX) tablet 5 mg, Oral, QDAY PRN calcium carbonate (TUMS) chew tablet 2 tablet, Oral, q4h PRN calcium gluconate 10 % injection 1 g, Intravenous, PRN diphenhydrAMINE (BENADRYL) capsule 25 mg, Oral, AT BEDTIME PRN hemorrhoidal (PREPARATION H) ointment OINT, Rectal, TID PRN lanolin ointment, Topical, PRN magnesium hydroxide (MILK OF MAGNESIA) suspension 30 mL, Oral, QDAY PRN naloxone (NARCAN) injection 0.2 mg, Intravenous, PRN oxyCODONE (immediate release) (ROXICODONE) tablet 10 mg, Oral, q4h PRN oxyCODONE (immediate release) (ROXICODONE) tablet 5 mg, Oral, q4h PRN simethicone (MYLICON) chew tablet 160 mg, Oral, 4X/day - PC & NIGHTLY PRN sodium phosphate rectal (FLEET SALINE) enema 133 mL, Rectal, QDAY PRN LABS: Recent Labs Component Name 12/22/18 0729 SODIUM 136 POTASSIUM 4.1 CHLORIDE 104 CO2 22* BUN 4* CREATININE 0.41* GLUCOSE 112* CALCIUM 8.2* ALBUMIN 2.6* ALKPHOS 141 ALT 12* AST 19 TBIL 0.3 TPROT 5.3* EGFR >60 Recent Labs Component Name 12/22/18 0729 12/21/18 1618 12/21/18 0839 HGB 10.7* 11.6* 11.0* HCT 32.8* 34.6* 33.5* Agree with supplementation of PNV + and Niferex and is now s/p 1 UPRBC and 1UFFP Patient Vitals for the past 30 hrs: Glucose Bedside (mg/dL) 12/22/18 0635 108 mg/dL 12/21/18 0615 86 mg/dL Skin/Wound: incisions - 1 + pitting edema in BLE Last BM: 12-21-18 no flatus post op Nutrition Care Process (1) Nutrition Diagnostic Statement: Altered nutrition-related lab values related to:: ---() as evidenced by:: elevated laboratory values Nutrition Diagnostic Statement Progress: Nutrition problem continues Nutrition Intervention: Meals and snacks:;Nutrition Education - Content Current diet order: Regular Nutrition recommendation: agree with current nutrition order Current supplement order: fruit punch Zack BID Education needed: Supplements;Weight Management;Wound Healing Education provided Pt educated Education was provided on nutrition and wound healing. Discussed protein, vitamin A andvitamin C food sources to include at meal times. Reviewed importance of good BG control. Discussed the benefit of Oral Nutrition Supplements (ONS) to aid with meeting calorie and protein needs to aidwound healing. Pt agrees to Zack BID. Zack (Wound Healing Supplement) provides 90 calories, 14 grams amino acid (7 gm L-arginine & 7 gm L-glutamine), 2.5 grams protein (hydrolyzed collagen), 8 grams of carb per serving along with 9.5mg Zinc, 300mg Vit C, 15 mg Vitamin E, and 1.2 mcg Vitamin B12. [facility] handout was provided and pt was encouraged to call concerning questions. Discussed healthy eating for wound healing and weight loss PP . Reviewed recommended servings of fruits, vegetables, whole grains, lean protein, and low fat calcium rich foods. Discouraged consumption of high-fat/high-calorie foods. Recommended pt consume adequate fluids from water and limit soda and sugary beverages . Expected level of compliance: Fair;Needs reinforcement Following pt at moderate nutritional risk, 5-7 days per per protocol Nutrition recommendation: agree with current nutrition order Continue Regular diet 2 hr PP at 6 week check Daily weights to continue Fruit punch Zack BID Monitoring: Follow for weights , intake, skin, labs, BM's Evaluation: Nutrition Goal: Biochemical data will be improved/normalized Nutrition Goal Timeframe: Throughout stay Ksenia Mg DTR 12/22/2018 11:15 AM Ascom [id number] * Gely Medina MD - 12/22/2018 8:21 AM CDT [facility] I have reviewed Cait Mathews who is a 23 year old with the OB resident team. We have discussed her recent clinical course. Cait is now POD#1 s/p a hysterectomy for placenta increta. Her was complicated by a posterior previa with anterior succenturiate lobe and her history of a prior 34 week CD of a SGA in addition to preeclampsia that was without severe features until the immediate postoperative period when there was severe hypertension and insulin-requiring GDM. I have evaluated and counseled her. Her only complaint is of fatigue. Exam: BP 134/73 Pulse 98 Temp 98.3 ??F (36.8 ??C) (Oral) Resp 29 Ht 5' (1.524 m) Wt 209 lb 6.4 oz (95 kg)SpO2 97% BMI 40.9 kg/m2 BPmax 189/101, last severe-range BP @ 1716 O2 sat 91-92% on RA, 98% on 2L NC UOP 925 / 375 / 1550 mL over the last 3 shifts, net negative 64 mL over the last 48 hours Gen - comfortable, alert, cooperative Lungs - CTA B Abd - soft, appropriately TTP Incision - bandage c/d/i Ext - no calf tenderness CXR (this AM): A single view of the chest shows cardiomegaly with normal vessels. There may be a small infiltrate at the left base. Right lung is clear. Recent Labs Component Name 12/22/18 0729 12/21/18 1618 12/21/18 0839 WBC 11.1* 18.1* 10.5 HGB 10.7* 11.6* 11.0* HCT 32.8* 34.6* 33.5* PLTCOUNT 180 175 193 Recent Labs Component Name 12/22/18 0729 12/21/18 1618 12/21/18 0839 SODIUM 136 136 136 POTASSIUM 4.1 4.0 4.0 CHLORIDE 104 108* 107 CO2 22* 19* 20* BUN 4* 5* 8 CREATININE 0.41* 0.37* 0.44* GLUCOSE 112* 76 96 CALCIUM 8.2* 8.1* 8.9 ALBUMIN 2.6* 2.5* 3.0* ALKPHOS 141 142 171* ALT 12* 13 15 AST 19 18 12 TBIL 0.3 0.3 0.2 TPROT 5.3* 4.9* 5.9* EGFR >60 >60 >60 Recent Labs Component Name 12/22/18 0729 12/21/18 2140 11/14/13 2150 FIBRINOGEN 620* 503* 438 Glucose Bedside (mg/dL) 12/22/18 0635 108 mg/dL 12/21/18 0615 86 mg/dL I have the following additions/revision to the plan: Spontaneously diuresing at this time. Use of incentive spirometer encouraged. If persistent O2 requirement will reevaluate for possible pulmonary edema +/- obtain PA and lateral CXR. Continue MgSO4 for seizure prophylaxis until ~24 hours post-op / . Monitor BP closely on labetalol 200 mg q12h, for now. Increase dose for SBPs that are persistently 150s or higher or DBPs 100s or higher. Otherwise, continue routine post-op care Gely Medina MD, MPH * Renetta Padron RN - 12/22/2018 6:57 AM CDT Shift Summary: Admission at 2100. Pt has been tachypneic throughout the night. Dr. Yañez came to see patient at 0100. Ordered 2Lof O2 r/t O2 sat of 91-93%. Pt O2 sat dropped below 93% during repositioning from dangling. Fundus firm, midline. No lochia present. Pt denies headaches, blurred vision, and epigastric pain. Incision well approximated, no drainage present, sutures intact. Pain controlled well with PHOTOGRAPHIC EQUIPMENT MECHANIC pump and tylenol. Tolerating clear liquid diet. Chapin draining clear yellow fluid. Infant is in the NICU. Pt denies any questions or concerns at this time. Will continue to monitor. * Renetta Padron RN - 12/22/2018 6:57 AM CDT Maternal assessment WDL. Will continue to monitor. 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 Pain is moderately controlled. She reports no flatus. She has not yet ambulated and denies lightheadedness. Chapin present. She denies headache, fever, chest pain, shortness of breath, and leg pain. Objective: Temp (24hrs) Max:99 ??F (37.2 ??C) Vitals: 12/22/18 0247 12/22/18 0345 12/22/18 0500 12/22/18 0605 BP: 129/74 124/69 132/74 134/73 Pulse: 84 88 90 98 Resp: 18 24 29 Temp: 98.1 ??F (36.7 ??C) SpO2: 94% 93% 95% 97% Weight: Height: Intake/Output Summary (Last 24 hours) at 12/22/2018 0649 Last data filed at 12/22/2018 0145 Gross per 24 hour Intake 4449.8 ml Output 3342 ml Net 1107.8 ml Exam: General: alert, cooperative, in no acute distress Heart: regular rate and rhythm. No murmurs auscultated. Lungs: Clear to auscultation bilaterally. No wheezes, rhales, rhonchi. Abdomen: Bowel Sounds normal. Soft. Non-distended. Appropriately tender to palpation. Incision: T incision, bandages in place with minimal strikethrough Extremities: Non-tender. No edema. SCDs are in place. Data: Recent Labs Component Name 12/21/18 1618 12/21/18 0839 12/20/18 1643 WBC 18.1* 10.5 10.3 HGB 11.6* 11.0* 11.9* HCT 34.6* 33.5* 35.0* PLTCOUNT 175 193 210 MEDICATIONS FOR CURRENT ENCOUNTER: SCHEDULED MEDICATIONS: 0.9% NaCl injection 3 mL, Intracatheter, q8h 0.9% NaCl injection 3 mL, Intracatheter, q8h acetaminophen (TYLENOL) tablet 650 mg, Oral, q6h iron polysaccharides (NIFEREX 150) capsule 150 mg, Oral, QDAY ketorolac (TORADOL) injection 30 mg, Intravenous, q6h labetalol (NORMODYNE; TRANDATE) tablet 200 mg, Oral, q12h measles, mumps and rubella vaccine (MMR) injection 0.5 mL, Subcutaneous, Immunization - Once vitamin with iron tablet 1 tablet, Oral, QDAY Tdap (znxlodj-gvwmaejafd-fdbhc pertussis) (BOOSTRIX) (7y+) injection 0.5 mL, Intramuscular, Immunization - Once [COMPLETED] ceFAZolin (ANCEF) 2,000 mg in 50 mL IVPB, Intravenous, Once [COMPLETED] lactated ringers 1,500 mL infusion, Intravenous, BOLUS IV [COMPLETED] magnesium sulfate bolus from infusion bag 4 g, Intravenous, BOLUS FROM BAG ONCE [] lactated ringers IV bolus, Intravenous, BOLUS IV CONTINUOUS MEDICATIONS: dextrose 5% and lactated ringers solution, Intravenous, Continuous magnesium sulfate 20 g in 500 mL infusion, Intravenous, Continuous PRN MEDICATIONS: Or Or Or 0.9% NaCl infusion rate and volume, Intravenous, Once PRN 0.9% NaCl injection 1-10 mL, Intracatheter, PRN 0.9% NaCl injection 3 mL, Intracatheter, PRN benzocaine-menthol (DERMOPLAST) spray, Topical, PRN bisacodyl (DULCOLAX) suppository 10 mg, Rectal, QDAY PRN bisacodyl EC (DULCOLAX) tablet 5 mg, Oral, QDAY PRN calcium carbonate (TUMS) chew tablet 2 tablet, Oral, q4h PRN calcium gluconate 10 % injection 1 g, Intravenous, PRN diphenhydrAMINE (BENADRYL) capsule 25 mg, Oral, AT BEDTIME PRN hemorrhoidal (PREPARATION H) ointment OINT, Rectal, TID PRN lanolin ointment, Topical, PRN magnesium hydroxide (MILK OF MAGNESIA) suspension 30 mL, Oral, QDAY PRN naloxone (NARCAN) injection 0.2 mg, Intravenous, PRN oxyCODONE (immediate release) (ROXICODONE) tablet 10 mg, Oral, q4h PRN oxyCODONE (immediate release) (ROXICODONE) tablet 5 mg, Oral, q4h PRN simethicone (MYLICON) chew tablet 160 mg, Oral, 4X/day - PC & NIGHTLY PRN sodium phosphate rectal (FLEET SALINE) enema 133 mL, Rectal, QDAY PRN A/P: 23 year old y/o s/p hysterectomy POD # 1 1. Afebrile, vital signs stable. 2. : Urinary output is adequate, chapin with 300cc. 3. GI: Patient tolerating clear liquid diet. Advance diet as tolerated. 4. Heme: Hgb 10.7 from 11.6, s/p 1u pRBC and 1u FFP, plts stable 175 > 180 5. Pain is moderately controlled with current medications on dPCA. 6. DVT Prophylaxis: Encourage increased ambulation. Sequential compressive devices while in bed. 7. Continue routine post-operative care 8. Obstetric issues 1. Pre-eclampsia w/ SF 1. BPs non-severe, patient on magnesium for seizure ppx. CXR to assess for fluid overload per primary team. 2. A2GDM 1. Fasting BS pending Lynda Sanchez MD 12/22/2018 6:49 AM Call first Pager: [phone] After 17:30 and before 7:00: call [phone] * Sarah Chatman MD - 12/22/2018 6:46 AM CDT PGY-4 OB Post- Note 12/22/2018, 6:47 AM Subjective: Cait Mathews has somewhat controlled pain. Lochia is medium amount. She reports no flatus passed. She denies headache, fever, chest pain, shortness of breath, and leg pain. She has not ambulatedand denies lightheadedness. Chapin is present. Patient is voiding spontaneously. Objective: Temp (36hrs) Max:99 ??F (37.2 ??C) Patient Vitals for the past 24 hrs: Temp Pulse Resp BP 12/22/18 0605 -- 98 29 134/73 12/22/18 0500 98.1 ??F (36.7 ??C) 90 24 132/74 12/22/18 0345 -- 88 18 124/69 12/22/18 0247 -- 84 23 129/74 12/22/18 0145 98.2 ??F (36.8 ??C) 87 24 125/69 12/22/18 0030 97.7 ??F (36.5 ??C) 85 25 130/69 12/21/18 2320 -- 88 22 125/69 12/21/18 2215 98.2 ??F (36.8 ??C) 95 21 139/84 12/21/18 2140 -- 91 18 -- 12/21/18 2100 98.2 ??F (36.8 ??C) -- 16 139/70 12/21/182004 99 ??F (37.2 ??C) -- -- 140/80 12/21/18 1935 -- -- 16 149/67 12/21/18 1905 -- -- 18 153/72 12/21/18 1816 -- -- 18 158/72 12/21/18 1757 -- -- 18 155/81 12/21/18 1737 -- -- 18 155/74 12/21/18 1716 -- -- 18 162/75 12/21/18 1655 -- -- 18 151/76 12/21/18 1630 -- -- 18 -- 12/21/18 1618 -- -- 18 (!) 189/101 12/21/18 1602 -- -- 18 175/84 12/21/18 1547 -- -- 20 (!) 184/93 12/21/18 1539 97.9 ??F (36.6 ??C) -- -- -- 12/21/18 1536 -- -- 20 164/93 12/21/18 1532 -- -- -- 160/81 12/21/18 1522 -- -- -- 167/87 12/21/18 1520 -- -- 20 167/87 12/21/18 1517 -- -- -- 170/86 12/21/18 0730 97.9 ??F (36.6 ??C) 77 18 152/97 Intake/Output Summary (Last 24 hours) at 12/22/2018 0647 Last data filed at 12/22/2018 0145 Gross per 24 hour Intake 4449.8 ml Output 3342 ml Net 1107.8 ml PE: General: alert, cooperative in no acute distress Lungs: nonlabored respirations Abdomen: BS+. Soft, appropriately tender; fundus firm below umbilicus. Incision: incision clean/dry/intact with skin clips in place Extremities: no calf tenderness, no palpable cords Data: Recent Labs Component Name 12/21/18 1618 12/21/18 0839 12/20/18 1643 WBC 18.1* 10.5 10.3 HGB 11.6* 11.0* 11.9* HCT 34.6* 33.5* 35.0* PLTCOUNT 175 193 210 Recent Labs Component Name 12/20/18 0542 ABO B RHTYPE Positive Assessment/Plan: 23 year old year old with 1. A2GDM 1. Will get day 1 FBS 2. Pre-E with severe features 1. Mag on x24 hous 2. Labetalol 200 BID, treated with IV ytd 3. Labs stable 3. S/p hysterectomy section, POD # 1 1. Desaturations requring O2- suspect mild 3rd spacing. Diuresing well. CXR ordered 2. : Urinary output is adequate 3. GI: yessy CLD, no flatus 4. Br/Koffi/Contraception: The patient is bottle feeding 5. Hematologic: stable after 1 u FFP and 1 u pRBCS 6. Pain is well controlled with current medications. 7. B+/I/-/-, HIV NR 8. DVT/PE prophylaxis: 1. Risk factors: major surgery, Body mass index is 40.9 kg/m??., state, = 2. No worrisome physical exam findings; VSS 3. SCDs in bed, encourage ambulation, 4. Dispo: continue routine post- care, d/c POD 3-4 after seen by attending Tg Perez MD 12/22/2018 6:47 AM MFM Fellow Addendum POD#1 s/p supracervical hysterectomy Procedure and placental accreta spectrum reviewed with patient this morning. Needs further discussion regarding remaining cervical tissue present. Will need paps still. Desaturations overnight, requiring 3L NC Currently at 1L NC with desaturation to 94% when rolling over in bed Mild crackles noted this morning. Diuresing well over past 12 hours, nearly 2L UOP Will decrease fluids to total 75ml/hr Will obtain CXR, consider Lasix if diuresis slows Regarding preeclampsia w/ severe features, BP well controlled currently without antihypertensives. Continue Magnesium x 24hrs . Sarah Chatman MD 12/22/2018 8:50 AM * Fahad Bear - 12/22/2018 5:39 AM CDT M4 [employer]ISHER ONC Progress Note Subjective: The patient is without complaints. Pain is controlled with dilaudid PHOTOGRAPHIC EQUIPMENT MECHANIC. She reports no flatus. Shedenies ambulated and denies lightheadedness. Chapin present, patient is voiding without difficulty. She denies headache, fever, chest pain, shortness of breath, and leg pain. Objective: Temp (24hrs) Max:99 ??F (37.2 ??C) Vitals: 12/22/18 0145 12/22/18 0247 12/22/18 0345 12/22/18 0500 BP: 125/69 129/74 124/69 132/74 Pulse: 87 84 88 90 Resp: Temp: 98.2 ??F (36.8 ??C) 98.1 ??F (36.7 ??C) SpO2: 98% 94% 93% 95% Weight: Height: Intake/Output Summary (Last 24 hours) at 12/22/2018 0540 Last data filed at 12/22/2018 0145 Gross per 24 hour Intake 4449.8 ml Output 3342 ml Net 1107.8 ml Exam: General: alert, cooperative, in no acute distress Heart: regular rate and rhythm. No murmurs auscultated. Lungs: Clear to auscultation bilaterally. No wheezes, rhales, rhonchi. Abdomen: Bowel Sounds normal. Soft. Non-distended. Appropriately tender to palpation. Incision: Bandage intact, clean, dry and intact Extremities: Non-tender. No edema. SCDs are in place. Data: Recent Labs Component Name 12/21/18 1618 12/21/18 0839 12/20/18 1643 WBC 18.1* 10.5 10.3 HGB 11.6* 11.0* 11.9* HCT 34.6* 33.5* 35.0* PLTCOUNT 175 193 210 MEDICATIONS FOR CURRENT ENCOUNTER: ?? SCHEDULED MEDICATIONS: ?? 0.9% NaCl injection 3 mL, Intracatheter, q8h ?? 0.9% NaCl injection 3 mL, Intracatheter, q8h ?? acetaminophen (TYLENOL) tablet 650 mg, Oral, q6h ?? iron polysaccharides (NIFEREX 150) capsule 150 mg, Oral, QDAY ?? ketorolac (TORADOL) injection 30 mg, Intravenous, q6h ?? labetalol (NORMODYNE; TRANDATE) tablet 200 mg, Oral, q12h ?? measles, mumps and rubella vaccine (MMR) injection 0.5 mL, Subcutaneous, Immunization - Once ?? vitamin with iron tablet 1 tablet, Oral, QDAY ?? Tdap (hytjfsj-zwgobzfgxw-upmdm pertussis) (BOOSTRIX) (7y+) injection 0.5 mL, Intramuscular, Immunization - Once ?? [COMPLETED] ceFAZolin (ANCEF) 2,000 mg in 50 mL IVPB, Intravenous, Once ?? [COMPLETED] lactated ringers 1,500 mL infusion, Intravenous, BOLUS IV ?? [COMPLETED] magnesium sulfate bolus from infusion bag 4 g, Intravenous, BOLUS FROM BAG ONCE ?? [] lactated ringers IV bolus, Intravenous, BOLUS IV ?? CONTINUOUS MEDICATIONS: ?? dextrose 5% and lactated ringers solution, Intravenous, Continuous ?? magnesium sulfate 20 g in 500 mL infusion, Intravenous, Continuous ?? PRN MEDICATIONS: ?? Or ?? Or ?? Or ?? 0.9% NaCl infusion rate and volume, Intravenous, Once PRN ?? 0.9% NaCl injection 1-10 mL, Intracatheter, PRN ?? 0.9% NaCl injection 3 mL, Intracatheter, PRN ?? benzocaine-menthol (DERMOPLAST) spray, Topical, PRN ?? bisacodyl (DULCOLAX) suppository 10 mg, Rectal, QDAY PRN ?? bisacodyl EC (DULCOLAX) tablet 5 mg, Oral, QDAY PRN ?? calcium carbonate (TUMS) chew tablet 2 tablet, Oral, q4h PRN ?? calcium gluconate 10 % injection 1 g, Intravenous, PRN ?? diphenhydrAMINE (BENADRYL) capsule 25 mg, Oral, AT BEDTIME PRN ?? hemorrhoidal (PREPARATION H) ointment OINT, Rectal, TID PRN ?? lanolin ointment, Topical, PRN ?? magnesium hydroxide (MILK OF MAGNESIA) suspension 30 mL, Oral, QDAY PRN ?? naloxone (NARCAN) injection 0.2 mg, Intravenous, PRN ?? oxyCODONE (immediate release) (ROXICODONE) tablet 10 mg, Oral, q4h PRN ?? oxyCODONE (immediate release) (ROXICODONE) tablet 5 mg, Oral, q4h PRN ?? simethicone (MYLICON) chew tablet 160 mg, Oral, 4X/day - PC & NIGHTLY PRN ?? sodium phosphate rectal (FLEET SALINE) enema 133 mL, Rectal, QDAY PRN ?? A/P: Cait Mathews is a 23 year old female s/p section and supracervical hysterectomy for PAS POD # 1 1. C/s hysterectomy 1. Mild spotting 2. Pain controlled with dilaudid PHOTOGRAPHIC EQUIPMENT MECHANIC 3. Abdomen is moderately TTP, incision with bandage intact 2. Pre- E w/ SF 1. On Mag until 1647 12/22 2. BP from 124-162/67-80 3. Management per antepartum team 3. A2GDM 1. POC from 76-108 2. Not on insulin currently 3. Management per antepartum team 4. Afebrile, vital signs stable. 5. : Urinary output is adequate. Chapin present 6. GI: Patient tolerating CLD. Advance diet as tolerated. 7. Pain is well controlled with dilaudid PHOTOGRAPHIC EQUIPMENT MECHANIC 8. DVT Prophylaxis: Encourage increased ambulation. Sequential compressive devices while in bed. 9. Continue routine post-operative care/ Discharge today after seen by attending Jah Maddox 12/22/2018 5:40 AM * Reema Moreno MD - 12/22/2018 12:41 AM CDT R2 Progress Note To bedside for tachypnea and O2 noted during vital review. Patient sleeping soundly. CO2 monitor in place due to PHOTOGRAPHIC EQUIPMENT MECHANIC. O2 91%. Easily awakened, O2 sat to 95%. Patient feels well. Pain well-controlled on PHOTOGRAPHIC EQUIPMENT MECHANIC. Chapin in place, has not yet voided spontaneously. No flatus. UOP: 0.94cc/kg/hr since 6p-1a Plan: O2 PRN to mtn sat >95% Reema Moreno MD 12/22/2018 12:41 AM * Gabrielle Haines - 12/21/2018 5:34 PM CDT Patient Name: Cait Mathews Patient Age: [age] year old Today's Date: 12/21/2018 DELIVERY SUMMARY Estimated Date of Delivery: 01/18/19 Delivery Summary Patient Information Patient Name Cait Mathews ([id number]) Sex Female OB History 2 Para 2 Term 0 2 AB 0 Living 2 SAB 0 TAB 0 Ectopic 0 Multiple 0 Live Births 2 1 Outcome: Date: 11/17/13 GA: 34w0d Sex: F Delivery: CS-LTranv Living: [facility] Weight: 1790 g (3 lb 15.1 oz) Anes: Spinal A1: 5 A5: 8 Complications: SGA (small for gestational age) Location: Other Delivering Clinician: Amina Armendariz MD 2 Outcome: Date: 12/21/18 GA: 36w0d Sex: F Delivery: Living: [facility] Name: YUNIOR MATHEWS Weight: 3060 g (6 lb 11.9 oz) Anes: Spinal, General A1: 8 A5: 4 Complications: Placenta Previa Location: [facility] Delivering Clinician: Gely Medina MD Transcribed Labs Row Name 11/03/18 0523 09/25/18 1844 RH (Manually Reproduced) Positive Positive Blood Type (Manually Reproduced) B B Syphilis Serology (Manually Reproduced) Negative Negative HIV (Manually Reproduced) Negative Negative Date of HIV Lab 10/27/18 05/31/18 Hepatitis B Surface Antigen (Manually Reproduced) Negative Negative Rubella Status ( Manually Reproduced) Immune Immune Labor Length 3rd stage: 1h 07m Blood Loss Admission (Current) from 11/25/2018 in [facility] 5 LDR Estimated Blood Loss -- Quantitated Blood Loss 1792 ml Yunior Mathews [[id number]] Patient Information Patient Name Yunior Mathews ([id number]) Sex Female Anesthesia Method: Spinal, Refrigerator Car Icer Events steroids: Full Course GBS Status: negative Antibiotic: cefazolin Number of Antibiotic Doses: 1 Rupture identifier: Sac 1 Rupture Date: 12/21/18 Time: 1153 Rupture type: Artificial Fluid color: Clear Fluid odor: Induction: None Augmentation: None Labor complications: Placenta Previa Delivery Details Presentation: Delivery (Maternal) Placenta Date/time: 12/21/2018 1300 Disposition: Pathology Other Delivery Procedures/Provider Comments Delivery - Physician I was present at delivery (physician name): Counts [place] [employer] Lap Pads Sponges Initial counts Added to counts Final counts Delivery ([place]) Delivery Date: 12/21/18 Delivery Time: 11:53 AM Delivery type: Trial of labor?: No categorization: Repeat priority: Routine Indications for : Placenta previa Apgars Living status: Living Apgars: 1 min.: 5 min.: 10 min.: 15 min.: 20 min.: Skin color: 0 0 1 Heart rate: 2 1 2 Reflex irritability: 2 1 2 Muscle tone: 2 1 2 Respiratory effort: 2 1 2 Total: 8 4 9 Delivery [place] Stabilization Equipment Checked by: NICU Vigorous at ? (Heart rate greater than 100, normal respirations and normal muscle tone): Yes Suction Method: Catheter Secretions (Amount in Comment): Clear Requires more than warming, stimulation, and suction?: Yes, See Infant's Chart Airway Support: Positive Pressure Ventilation, CPAP Intubation Performed?: No Thermoregulation Support: Cap, Overhead Warmer, Warm Blankets Cord Vessels: 3 Vessels Delayed cord clamping?: Yes Time delayed: 60 seconds or greater Gases sent?: Unable to Obtain Cord comments: unable to send cord segment for drug screen d/t emergent placenta accreta Measurements Weight: 3060 g Pounds and Ounces: 6 lb 11.9 oz Length: 18.31 Head circumference: 12.99 Chest circumference: Infant Disposition: NICU Feeding and Elimination Mother's Feeding Choice During Stay ( Core Measure PC05): Formula Voided in Delivery Room?: No Stooled in Delivery Room?: No . Associated attestation - Gely Medina MD - 12/22/2018 8:21 AM CDT I was present and participated in this hysterectomy, performed at 36w0d for a known posterior previa with anterior succenturiate placental lobe. On abdominal entry we found that anterior lobe bulging through the myometrium, to the serosal layer. At that time fishing worker oncologist Dr. Carmona was called for assistance and the patient was repositioned in stirrups. Once Dr. Carmona arrived, Cait was placed under GETA and a vertical skin incision was made to just above the umbilicus in order to allow exteriorization of the uterus so that a fundal incision could be made to avoid the placenta. The fetus was delivered from the fundus by breech extraction and delayed cord clamping was performed. Thecord was then tied and placed inside the uterus and the hysterotomy was closed with towel clips just prior to the start of the hysterectomy. The patient tolerated the procedure well and was given just one unit of pRBCs and one unit of FFP. Gely Medina MD [facility] STAFF * Bennett Stewart MD - 12/21/2018 3:46 PM CDT Pt with severe range BPs, making the diagnosis of PreE with SF. Labetalol first HTN protocol ordered. Magnesium to start now. Discussed with Dr Chatman. Bennett Stewart MD 12/21/2018 4:04 PM * Jolanta Richards RN - 12/21/2018 10:48 AM CDT Report given to FLEX Arnett from L/D ambulated to room 512 at 1035, states positive for movement, no signs of distress noted, family at patient's side. * Jolatna Richards RN - 12/21/2018 9:14 AM CDT Patient took hibiclens shower this am, shaved abdomen and perineal area, chlorhexidine wipes completed. * Deepa Chaudhry APRN-CNP - 12/21/2018 7:32 AM CDT [facility] M[facility] Antepartum Progress Note Date: 12/21/2018 Hospital Day: 26 Subjective: Cait Mathews is a 23 year old G 2 P 1 A 0 at 36w0d weeks gestation. Patient reports she is nervous but ready for her section today. Denies contractions. Reports good movement. Reports slight pink discharge today. She denies chest pain, shortness of breath, headache or abdominal pain. Objective: BP 144/94 Pulse 72 Temp 98 ??F (36.7 ??C) (Oral) Resp 18 Ht 5' (1.524 m) Wt 209 lb 6.4 oz (95 kg) SpO2 99% BMI 40.9 kg/m2 Temp (24hrs) Max:98.4 ??F (36.9 ??C) Systolic (30hrs), Av , Min:125 , Max:152 Diastolic (30hrs), Av, Min:67, Max:94 Intake/Output Summary (Last 24 hours) at 12/21/2018 0733 Last data filed at 12/21/2018 0430 Gross per 24 hour Intake 540 ml Output 1200 ml Net -660 ml Patient Vitals for the past 30 hrs: Glucose Bedside (mg/dL) 12/21/18 0615 86 mg/dL 12/20/18 2148 102 mg/dL 12/20/18 1915 123 mg/dL 12/20/18 1445 116 mg/dL 12/20/18 1250 118 mg/dL 12/20/18 1118 77 mg/dL 12/20/18 0350 91 mg/dL Physical Exam: General: alert, cooperative, no distress Lungs: clear to auscultation bilaterally Heart: regular rate and rhythm Abdomen: gravid, Non-tender Extremities:No LE edema noted NST: See formal NST Note: reactive yesterday TOCO: Problem List: Patient Active Problem List: Tobacco abuse Preeclampsia Supervision of high risk , antepartum Pre-eclampsia in third trimester Previous delivery, antepartum condition or complication Previous delivery, antepartum Obesity affecting in third trimester Depressive disorder 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 SCHEDULED MEDICATIONS: ?? 0.9% NaCl injection 10 mL, Intracatheter, q8h ?? acetaminophen (TYLENOL) tablet 650 mg, Oral, q6h ?? amoxicillin (AMOXIL) capsule 500 mg, Oral, TID ?? chlorhexidine (PERIDEX) 0.12 % oral solution, Swish and Spit, BID ?? diphenhydrAMINE (BENADRYL) capsule 25 mg, Oral, AT BEDTIME ?? insulin aspart (NovoLOG) pen 4 Units, Subcutaneous, QDAY WITH BREAKFAST ?? insulin detemir (LEVEMIR) pen 36 Units, Subcutaneous, AT BEDTIME ?? iron polysaccharides (NIFEREX 150) capsule 150 mg, Oral, QDAY ?? vitamin with iron tablet 1 tablet, Oral, QDAY ?? triamcinolone acetonide (KENALOG) 0.5 % cream, Topical, TID ?? [COMPLETED] diphenhydrAMINE (BENADRYL) capsule 50 mg, Oral, Once ?? CONTINUOUS MEDICATIONS: ?? PRN MEDICATIONS: ?? Or ?? Or ?? benzocaine (MAXIMUM STRENGTH ORAJEL) 20 % gel, Oral, 4X/day PRN ?? likrjsgfri-ttkliyxtcajox-poktgjzj (FIORICET) 50-325-40 MG tablet 1 tablet, Oral, q4h PRN ?? calcium carbonate (TUMS) chew tablet 2 tablet, Oral, q4h PRN ?? dextrose IV 12.5-25 g, Intravenous, PRN ?? docusate sodium (COLACE) capsule 100 mg, Oral, BID PRN ?? glucagon (GLUCAGEN) injection 1 mg, Intramuscular, PRN ?? glucose (Diabetic Use) oral gel, Oral, PRN ?? metoclopramide (REGLAN) injection 10 mg, Intravenous, q6h PRN ?? ondansetron (ZOFRAN) injection 4 mg, Intravenous, q6h PRN ?? polyethylene glycol 3350 (MIRALAX) packet 17 g, Oral, QDAY PRN ?? prochlorperazine (COMPAZINE) suppository 25 mg, Rectal, q12h PRN ?? simethicone (MYLICON) chew tablet 160 mg, Oral, 4X/day - PC & NIGHTLY PRN Assessment/ Plan: 23 year old at 36w0d 1. Posterior placenta previa with low lying chorionic vessel 1. Admitted on 11/25 with 3rd episode of bleeding 1. B+ blood type 2. Bilobed placenta with anterior and posterior discs, chorionic vessel within 2cms of internal cervical os 3. S/p ANCS & 4. 12/14: EFW: 2962 grams, 85%ile, AC >99th, KOREY:12.5cms 2. A2GDM 1. Continues on Levemir 36 Units q hs, started Novolog 4 units with breakfast??last week 2. Fasting today:??86 (DID NOT take last nights Levemir) 1. Yesterday 1. Fastin 2. 1 hour PP Breakfast: 118 (4 Units of Novolog) 3. 1 hour PP Lunch: 116 4. 1 hour PP dinner: 123 3. Suspect PreE without SF 1. P/C ratio on 12/08: 1.18 (straight cath) 2. H/o PreE with G1 3. Last 24 hour BPs:??125-152/67-94 4. H/o LTCS with G1 1. Breech with PreE at 34 weeks 5. Concern for dental caries 1. Re-started Amoxicillin 500mg ID 2. Chlorhexidine mouth swish ordered BID 6. H/o Tobacco use 1. Nicotine patch PRN 7. Supervision of 1. PNC with HRC 2. Dating by Dating by 15 week u/s 3. NIPT neg 4. B+/I/-/- ??HIV neg 5. GCT: 147 1. GTT: WNL (trending LGA growth and elevated BS as an inpatient??prompted beginning insulin) 8. NST reactive 9. Dispo: Continue inpatient management for placenta previa. delivery scheduled for today.Type and crossed for 2 Units. Plan discussed with Dr. Medina on rounds [facility] 12/21/2018 7:33 AM * Amberly Crandall RN - 12/21/2018 5:19 AM CDT Problem: Bleeding Precautions Goal: Excessive bleeding will be minimized Description Patient denies bleeding at this time. Will continue to monitor. Outcome: Ongoing Note: Cait Mathews reports scant brown discharge. Pt isn't wearing a anthony pad. Goal: Precautionary measures taken to prevent bleeding Description 2 units on hold, bleeding precautions in place Outcome: Ongoing Cait Mathews END OF SHIFT SUMMARY Issues/Changes: Cait Mathews reports no changes Patient or Family Concerns: Cait Mathews reports no concerns Pain Issues: Cait Mathews denies pain. Patient Progress: Cait Mathews VSS/AF. Bps 120s-150s/60s-90s. Pt denies contractions, pelvic pressure, HAs, visual changes, epigastric pain. Reports +FM, scant brown discharge. Continues to havered rash on abdomen, medication applied to affected area. Pt completed one Hibiclens shower last night, will take second Hibiclens shower this am. Pt has been NPO since midnight. Fob at bedside. C/S scheduled for 1000. Phone and call light within reach. Will continue to monitor. * Amberly Crandall RN - 12/20/2018 9:25 PM CDT [id number] Clinician Communication/Critical Test Notification Reason: Condition Update;Patient Request Name of Clinician Notified: Dr. Rocha Role: OB Resident Notification Method: Called/Phoned Action Orders Received Comments: Refused insulin, sleep medication made aware Cait Mathews refusing bedtime insulin of Levemir. Pt requested medication to promote sleep, orders for 50mg of Benadryl. * Jolanta Richards RN - 12/20/2018 6:06 PM CDT Shift summary: Patient is resting in bed, states positive for movement, states occasional contraction, denies cramping, vaginal bleeding, states has brown discharge when wipes, denies headache,blurred vision or epigastric discomfort, vital signs are stable and is afebrile, encouraged to let nurse know of any needs or changes, instructed NPO after MN. * Jolanta Richards RN - 12/20/2018 1:12 PM CDT Encourage Cait to inform nurse of any vaginal bleeding * Perla Jansen MD - 12/20/2018 5:31 AM CDT R2 Antepartum Progress Note Date: 12/20/2018 Hospital Day: 25 Subjective: Denies vaginal bleeding, leaking of fluid. Reports same brown discharge and normal movement. Feels 3 contractions per day. Objective: Patient Vitals for the past 24 hrs: Temp Pulse Resp BP 12/20/18 0350 98.2 ??F (36.8 ??C) 55 16 151/89 12/19/18 2305 98.2 ??F (36.8 ??C) 70 16 145/85 12/19/18 1950 97.8 ??F (36.6 ??C) 79 16 139/84 12/19/18 1545 98.7 ??F (37.1 ??C) 78 16 144/87 12/19/18 1218 97.8 ??F (36.6 ??C) 81 16 140/83 12/19/18 0900 98.1 ??F (36.7 ??C) 90 18 138/75 Intake/Output Summary (Last 24 hours) at 12/20/2018 0532 Last data filed at 12/20/2018 0350 Gross per 24 hour Intake 550 ml Output 1300 ml Net -750 ml Patient Vitals for the past 30 hrs: Glucose Bedside (mg/dL) 12/20/18 0350 fbs 91 mg/dL 12/19/18 2110 1 hr pp dinner 109 mg/dL 12/19/18 1620 1 hr pp lunch 126 mg/dL 12/19/18 1218 1 hr pp breakfast 114 mg/dL 12/19/18 1050 AC breakfast 68 mg/dL 12/19/18 0640 fbs 87 mg/dL Physical Exam: General: alert, cooperative, no distress Lungs: non-labored respirations Abdomen: gravid, NT, soft Lower Extremities: No LE edema or calf tenderness NST: See formal NST Note Problem List: Patient Active Problem List: Tobacco abuse Preeclampsia Supervision of high risk , antepartum Pre-eclampsia in third trimester Previous delivery, antepartum condition or complication Previous delivery, antepartum Obesity affecting in third trimester Depressive disorder 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 Gastroesophageal reflux disease Hyperhidrosis Placenta previa antepartum in third trimester Vaginal bleeding during Insulin controlled gestational diabetes mellitus (GDM) in third trimester Maternal asthma complicating Bilobed placenta 34 weeks gestation of Depression Vasa previa MEDICATIONS FOR CURRENT ENCOUNTER: SCHEDULED MEDICATIONS: 0.9% NaCl injection 10 mL, Intracatheter, q8h acetaminophen (TYLENOL) tablet 650 mg, Oral, q6h amoxicillin (AMOXIL) capsule 500 mg, Oral, TID chlorhexidine (PERIDEX) 0.12 % oral solution, Swish and Spit, BID diphenhydrAMINE (BENADRYL) capsule 25 mg, Oral, AT BEDTIME insulin aspart (NovoLOG) pen 4 Units, Subcutaneous, QDAY WITH BREAKFAST insulin detemir (LEVEMIR) pen 36 Units, Subcutaneous, AT BEDTIME iron polysaccharides (NIFEREX 150) capsule 150 mg, Oral, QDAY vitamin with iron tablet 1 tablet, Oral, QDAY ?? triamcinolone acetonide (KENALOG) 0.5 % cream, Topical, TID ?? CONTINUOUS MEDICATIONS: PRN MEDICATIONS: Or Or benzocaine (MAXIMUM STRENGTH ORAJEL) 20 % gel, Oral, 4X/day PRN lvibhiiubj-ownkzjcftrvsf-oebgemfc (FIORICET) 50-325-40 MG tablet 1 tablet, Oral, q4h PRN calcium carbonate (TUMS) chew tablet 2 tablet, Oral, q4h PRN dextrose IV 12.5-25 g, Intravenous, PRN docusate sodium (COLACE) capsule 100 mg, Oral, BID PRN glucagon (GLUCAGEN) injection 1 mg, Intramuscular, PRN glucose (Diabetic Use) oral gel, Oral, PRN metoclopramide (REGLAN) injection 10 mg, Intravenous, q6h PRN ondansetron (ZOFRAN) injection 4 mg, Intravenous, q6h PRN polyethylene glycol 3350 (MIRALAX) packet 17 g, Oral, QDAY PRN prochlorperazine (COMPAZINE) suppository 25 mg, Rectal, q12h PRN ?? simethicone (MYLICON) chew tablet 160 mg, Oral, 4X/day - PC & NIGHTLY PRN Assessment/ Plan: 23 year old at 35w6d 1. Posterior placenta previa with low lying chorionic vessel 1. Admitted on 11/25 with 3rd episode of bleeding 1. B+ blood type 2. Bilobed placenta with anterior and posterior discs, chorionic vessel within 2cms of internal cervical os 3. S/p ANCS & 4. 12/14: EFW: 2962 grams, 85%ile, AC >99th, KOREY:12.5cms 5. BTL denied by ethics for upcoming CS 2. A2GDM 1. Continues on Levemir 36 Units q hs, and Novolog 4 units with breakfast 1. Blood sugars as above 3. Suspect PreE without SF 1. P/C ratio on 12/08: 1.18 (straight cath) 2. H/o PreE with G1 3. Last 24 hour BPs: 130-150s/70-80s 4. H/o LTCS with G1 1. Breech with PreE at 34 weeks 5. Concern for dental caries 1. Re-started Amoxicillin 500mg ID 2. Chlorhexidine mouth swish ordered BID 6. H/o Tobacco use 1. Nicotine patch PRN 7. Supervision of 1. PNC with HRC 2. Dating by Dating by 15 week u/s 3. NIPT neg 4. B+/I/-/- ??HIV neg 5. GCT: 147 1. GTT: WNL (trending LGA growth and elevated BS as an inpatient prompted beginning insulin) Dispo: Continue inpatient management for placenta previa. delivery scheduled for 12/21 at 36 weeks or sooner if clinically indicated. Tubal denied by ethics (patient aware). Perla Jansen MD 12/19/2018 5:32 AM Associated attestation - Sari Wilson MD - 12/20/2018 11:42 AM CDT MFM Attending Addendum I have seen and examined the patient with the resident/fellow and agree with their documentation. Patient having some brown spotting. Pos FM. No VB or LOF. Excited for delivery tomorrow. No acute complaints. Physical Exam: Temp (24hrs) Max:98.7 ??F (37.1 ??C) BP 144/90 Pulse 73 Temp 98.1 ??F (36.7 ??C) (Oral) Resp 18 Ht 5' (1.524 m) Wt 213 lb 12.8 oz (97 kg) SpO2 98% BMI 41.75 kg/m2 No acute distress Respirations unlabored Heart regular rate Skin turgor normal no rashes nor lesions. Abdomen soft nontender Ext: soft nontender. I have the following to add to the plan: Cait Mathews is a 23 year old at 35w6d weeks gestation. Posterior placenta previa, VB x3. Rh pos. T&C. S/p steroids 11/25-. Repeat CD scheduled for tomorrow. Risk of need for hysterectomy discussed. A2GDM. Levemir 36u q HS and novolog with breakfast. BS overall controlled. No adjustment needed. PreE w/o SF. BPs in mild range. Continue to monitor. Sari Wilson MD Maternal Medicine * Martha Pineda RN - 12/20/2018 5:28 AM CDT Shift summary Patient is alert and oriented and up ad rafa. VSS and afebrile. No complaints of bleeding. Occasional contractions. 2 units on hold. New type and screen waiting to be drawn to be updated. Will continue to monitor. Call light within reach. * Steve Reed - 12/19/2018 5:41 PM CDT [facility] Ethics Team Note: 12/19/2018, the ethics team discussed the possibility of a sterilization procedure to be performed on Cait Mathews. The facts, as they were presented to the committee, are that the patient: (1) Has had one prior section delivery, placenta previa; (2) is scheduled for a medically indicated section delivery; (3) has considered alternative means of avoiding in consultation with her physician and these means are not satisfactory given her personal and medical situation; and (4) has indicated that a sterilization procedure is the most appropriate option for her in light ofthe circumstances. Because the patient does not meet the criteria for a pastoral exception, the ethics team is denyingthe request for sterilization. Steve Reed [facility] Ethics Team * Perla Jansen MD - 12/19/2018 1:44 PM CDT R2 Update Note In to see patient to consent her for: repeat section, possible emergent hysterectomy and possible bilateral tubal ligation The section has been fully reviewed with the patient/family and written informed consent has been obtained. Risks including, but not limited to infection, bleeding and/or hemorrhage requiring transfusion (and its inherent risks of acquiring HIV, hepatitis B/C or other infections) or possible hysterectomy, damage to bowel, damage to bladder, stroke, blood clot, or were discussed. She understands that if ethics approves her tubal ligation there is a small risk for failure of the procedure due to technical difficultly. She is also aware of the increased risk for ectopic in the event she were to become . The patient wishes to proceed. All questions were answered. Perla Jansen MD 12/19/2018 1:44 PM * Deepa Chaudhry APRN-LEGAL SERVICE SPECIALIST - 12/19/2018 10:04 AM CDT AGRICULTURAL PLOW OPERATOR MFM Antepartum Progress Note Date: 12/19/2018 Hospital Day: 24 Subjective: Cait Mathews is a 23 year old G 2 P 1 A 0 at 35w5d weeks gestation. Patient reports no c/o's. States she is counting down the days until her delivery. Denies any vaginal bleeding. Reports continued brown vaginal discharge . Denies abdominal cramping. Reports good movement. She denies chest pain, shortness of breath, headache or abdominal pain. Objective: BP 138/75 Pulse 90 Temp 98.1 ??F (36.7 ??C) (Oral) Resp 18 Ht 5' (1.524 m) Wt 211 lb 9.6oz (96 kg) SpO2 100% BMI 41.33 kg/m2 Temp (24hrs) Max:98.5 ??F (36.9 ??C) Systolic (30hrs), Av , Min:126 , Max:141 Diastolic (30hrs), Av, Min:72, Max:90 Intake/Output Summary (Last 24 hours) at 12/19/2018 1004 Last data filed at 12/19/2018 0640 Gross per 24 hour Intake 1040 ml Output 1400 ml Net -360 ml Patient Vitals for the past 30 hrs: Glucose Bedside (mg/dL) 12/19/18 0640 87 mg/dL 12/18/18 1815 145 mg/dL 12/18/18 1441 119 mg/dL 12/18/18 0842 121 mg/dL 12/18/18 0548 82 mg/dL Physical Exam: General: alert, cooperative, no distress Lungs: non-labored respirations Abdomen: gravid, NT Extremities: No LE edema NST: See formal NST Note: reactive TOCO: No contractions present Problem List: Patient Active Problem List: Tobacco abuse Preeclampsia Supervision of high risk , antepartum Pre-eclampsia in third trimester Previous delivery, antepartum condition or complication Previous delivery, antepartum Obesity affecting in third trimester Depressive disorder 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 SCHEDULED MEDICATIONS: ?? 0.9% NaCl injection 10 mL, Intracatheter, q8h ?? acetaminophen (TYLENOL) tablet 650 mg, Oral, q6h ?? amoxicillin (AMOXIL) capsule 500 mg, Oral, TID ?? chlorhexidine (PERIDEX) 0.12 % oral solution, Swish and Spit, BID ?? diphenhydrAMINE (BENADRYL) capsule 25 mg, Oral, AT BEDTIME ?? insulin aspart (NovoLOG) pen 4 Units, Subcutaneous, QDAY WITH BREAKFAST ?? insulin detemir (LEVEMIR) pen 36 Units, Subcutaneous, AT BEDTIME ?? iron polysaccharides (NIFEREX 150) capsule 150 mg, Oral, QDAY ?? vitamin with iron tablet 1 tablet, Oral, QDAY ?? triamcinolone acetonide (KENALOG) 0.5 % cream, Topical, TID ?? CONTINUOUS MEDICATIONS: ?? PRN MEDICATIONS: ?? Or ?? Or ?? benzocaine (MAXIMUM STRENGTH ORAJEL) 20 % gel, Oral, 4X/day PRN ?? acpkaawchs-wiagkyamsxlml-kkuwelno (FIORICET) 50-325-40 MG tablet 1 tablet, Oral, q4h PRN ?? calcium carbonate (TUMS) chew tablet 2 tablet, Oral, q4h PRN ?? dextrose IV 12.5-25 g, Intravenous, PRN ?? docusate sodium (COLACE) capsule 100 mg, Oral, BID PRN ?? glucagon (GLUCAGEN) injection 1 mg, Intramuscular, PRN ?? glucose (Diabetic Use) oral gel, Oral, PRN ?? metoclopramide (REGLAN) injection 10 mg, Intravenous, q6h PRN ?? ondansetron (ZOFRAN) injection 4 mg, Intravenous, q6h PRN ?? polyethylene glycol 3350 (MIRALAX) packet 17 g, Oral, QDAY PRN ?? prochlorperazine (COMPAZINE) suppository 25 mg, Rectal, q12h PRN ?? simethicone (MYLICON) chew tablet 160 mg, Oral, 4X/day - PC & NIGHTLY PRN Assessment/ Plan: 23 year old at 35w5d 1. Posterior placenta previa with low lying chorionic vessel 1. Admitted on 11/25 with 3rd episode of bleeding 1. B+ blood type 2. Bilobed placenta with anterior and posterior discs, chorionic vessel within 2cms of internal cervical os 3. S/p ANCS 09/25- & 11/25-20 4. 8/7: EFW: 2962 grams, 85%ile, AC >99th, KOREY:12.5cms 2. A2GDM 1. Continues on Levemir 36 Units q hs, started Novolog 4 units with breakfast last week 2. Fasting today: 87 1. Yesterday 1. Fastin 2. 1 hour PP Breakfast: 121 (4 Units of Novolog) 3. 1 hour PP Lunch: 119 4. 1 hour PP dinner: 145 3. Suspect PreE without SF 1. P/C ratio on 12/08: 1.18 (straight cath) 2. H/o PreE with G1 3. Last 24 hour BPs: 107-142/69-95 4. H/o LTCS with G1 1. Breech with PreE at 34 weeks 5. Concern for dental caries 1. Re-started Amoxicillin 500mg ID 2. Chlorhexidine mouth swish ordered BID 6. H/o Tobacco use 1. Nicotine patch PRN 7. Supervision of 1. PNC with HRC 2. Dating by Dating by 15 week u/s 3. NIPT neg 4. B+/I/-/- ??HIV neg 5. GCT: 147 1. GTT: WNL (trending LGA growth and elevated BS as an inpatient prompted beginning insulin) 8. NST reactive 9. Dispo: Continue inpatient management for placenta previa. delivery scheduled for 12/21 at 36 weeks or sooner if clinically indicated. Signed Tubal paperwork and awaiting ethics review. Patient still not 100% sure she wants the BTL even if approved. Plan discussed with Dr. Medina on rounds [facility] 12/19/2018 10:04 AM * Jahaira Doyle RN - 12/19/2018 7:45 AM CDT Shift summary: pt resting in bed, reports positive movement and scant brown vaginal dischargeovernight. Denies contractions, cramping, headache, backache, LOF, epigastric pain, and visual disturbances. Blood pressure ranged 130's-140's/80's-90's overnight. Ambulating and voiding independently. Call light within reach and pt encouraged to call nurse with any needs or change in status. * Jahaira Doyle RN - 12/19/2018 6:51 AM CDT Problem: Bleeding Precautions Goal: Excessive bleeding will be minimized Outcome: Ongoing Note: Cait Mathews reports scant brown vaginal discharge overnight * Charlene Storm RN - 12/18/2018 5:12 PM CDT Shift Summary: Flow sheet assessment unchanged. Reports positive movement. Denies contractions/leakage of fluid/vaginal bleeding/pelvic pressure or pain. Cait is aware to notify staff with any changes in condition. Call light & phone within reach. * Charlene Storm RN - 12/18/2018 9:12 AM CDT Cait denies any vaginal bleeding/leakage of fluid or pain & is aware to notify staff with any changes in condition. * Cheryl Tello MD - 12/18/2018 7:17 AM CDT R2 Antepartum Progress Note Date: 12/18/2018 Hospital Day: 23 Subjective: Cait Mathews is a 23 year old at 35w4d weeks gestation. There were no acute overnight events. She reports that she continues to have brown spotting only. She denies vaginal bleeding, loss of fluid, and reports only occasional contractions. She reports normal movement. Objective: Patient Vitals for the past 24 hrs: Temp Pulse Resp BP SpO2 12/17/18 2340 97.7 ??F (36.5 ??C) 71 16 120/67 99 % 12/17/18 2000 98.1 ??F (36.7 ??C) 62 22 154/83 100 % 12/17/18 1540 98 ??F (36.7 ??C) 79 18 128/83 97 % 12/17/18 1240 98.2 ??F (36.8 ??C) 69 18 148/90 97 % 12/17/18 0845 97.6 ??F (36.4 ??C) 82 18 132/78 97 % Intake/Output Summary (Last 24 hours) at 12/18/2018 0717 Last data filed at 12/18/2018 0548 Gross per 24 hour Intake -- Output 900 ml Net -900 ml Physical Exam: General: alert, cooperative, no distress Lungs: clear to auscultation bilaterally Heart: regular rate and rhythm Abdomen: gravid, nontender, no palpable contractions Extremities: normal, non-tender bilaterally Labs: Recent Labs Component Name 12/15/18 0506 12/14/18 0011 12/11/18 0452 WBC 9.1 8.2 12.6* HGB 11.0* 12.3 11.1* HCT 35.3* 36.9 33.1* PLTCOUNT 176 194 184 Recent Labs Component Name 12/15/18 0506 12/11/18 0848 12/08/18 0549 SODIUM 138 135* 136 POTASSIUM 4.1 3.8 4.0 CHLORIDE 105 104 104 CO2 23 18* 20* BUN 7 8 8 CREATININE 0.50* 0.39* 0.43* GLUCOSE 85 151* 94 CALCIUM 9.7 9.7 9.8 ALBUMIN 3.0* 3.4* 3.3* ALKPHOS 169* 179* 159* ALT 14 14 11* AST 12 12 11 TBIL 0.2 0.3 0.3 TPROT 6.0* 6.4 6.2* EGFR >60 >60 >60 NST/Holcomb: See separate procedure note MEDICATIONS FOR CURRENT ENCOUNTER: ?? SCHEDULED MEDICATIONS: ?? 0.9% NaCl injection 10 mL, Intracatheter, q8h ?? acetaminophen (TYLENOL) tablet 650 mg, Oral, q6h ?? chlorhexidine (PERIDEX) 0.12 % oral solution, Swish and Spit, BID ?? diphenhydrAMINE (BENADRYL) capsule 25 mg, Oral, AT BEDTIME ?? insulin aspart (NovoLOG) pen 4 Units, Subcutaneous, QDAY WITH BREAKFAST ?? insulin detemir (LEVEMIR) pen 36 Units, Subcutaneous, AT BEDTIME ?? iron polysaccharides (NIFEREX 150) capsule 150 mg, Oral, QDAY ?? vitamin with iron tablet 1 tablet, Oral, QDAY ?? triamcinolone acetonide (KENALOG) 0.5 % cream, Topical, TID ?? CONTINUOUS MEDICATIONS: ?? PRN MEDICATIONS: ?? Or ?? Or ?? benzocaine (MAXIMUM STRENGTH ORAJEL) 20 % gel, Oral, 4X/day PRN ?? fhdfrrbogu-hfouvgbdrbcee-vikluqoc (FIORICET) 50-325-40 MG tablet 1 tablet, Oral, q4h PRN ?? calcium carbonate (TUMS) chew tablet 2 tablet, Oral, q4h PRN ?? dextrose IV 12.5-25 g, Intravenous, PRN ?? docusate sodium (COLACE) capsule 100 mg, Oral, BID PRN ?? glucagon (GLUCAGEN) injection 1 mg, Intramuscular, PRN ?? glucose (Diabetic Use) oral gel, Oral, PRN ?? metoclopramide (REGLAN) injection 10 mg, Intravenous, q6h PRN ?? ondansetron (ZOFRAN) injection 4 mg, Intravenous, q6h PRN ?? polyethylene glycol 3350 (MIRALAX) packet 17 g, Oral, QDAY PRN ?? prochlorperazine (COMPAZINE) suppository 25 mg, Rectal, q12h PRN ?? simethicone (MYLICON) chew tablet 160 mg, Oral, 4X/day - PC & NIGHTLY PRN Assessment/Plan: 23 year old at 35w4d, with 1. Posterior placenta previa with low lying chorionic vessel 1. Admitted on 11/25 with 3rd episode of bleeding 2. B+ blood type 3. Bilobed placenta with anterior and posterior discs, chorionic vessel within 2cms of internal cervical os 4. S/p ANCS 09/25- & 11/25- 5. 8/: EFW: 2962 grams, 85%ile, AC >99th, KOREY:12.5cms 6. Still complains only on light brown spotting 2. A2GDM 1. Continues on Levemir 36 Units q hs, Novolog 4 units with breakfast 2. Fasting today:??82 3. Yesterday 1. Fastin 2. Breakfast: 67 > 107 3. 1 hour PP Lunch: 110 4. 1 hour PP dinner: 121 3. Suspect PreE without SF 1. P/C ratio on 12/08: 1.18 (straight cath) 2. H/o PreE with G1 3. Last 24 hour BPs:??120s-154/60s-90 4. Denies s/s today 4. H/o LTCS with G1 1. Breech with PreE at 34 weeks 5. Concern for dental caries 1. S/p Amoxicillin x 10 days 2. Chlorhexidine mouth swish ordered BID 3. Small pustule on gums noted by yesterday's team without spread or surrounding erythema 4. Consider another course of amoxicillin 6. Rash on abdomen 1. Suspect contact dermatitis 2. Continue triamcinolone 3. Denies complaints this morning 7. H/o Tobacco use 1. Nicotine patch PRN 8. Supervision of 1. PNC with HRC 2. Dating by Dating by 15 week u/s 3. NIPT neg 4. B+/I/-/- ??HIV neg 5. GCT: 147 6. GTT: WNL (trending LGA growth and elevated BS as an inpatient??prompted beginning insulin) 9. NST reactive 10. Dispo: Continue inpatient management for placenta previa. delivery scheduled for 12/21 at 36 weeks or sooner if clinically indicated.??Signed Tubal paperwork and awaiting ethics approval.??Patient still not 100% sure she wants the BTL even if approved. Cheryl Tello MD 12/18/2018 7:17 AM Associated attestation - Gely Medina MD - 12/18/2018 2:03 PM CDT [facility] I have reviewed Cait Mathews who is a 23 year old with a hernadez gestation at 35w4d with the OB resident team. We have discussed her recent clinical course. Cait is here with a posterior previa with a succenturiate lobe with a vessel passing within ~2 cm of the internal os. She also has preeclampsia without severe features and GDM. I have evaluated and counseled her. She complains of a tooth abscess. Aside from the persistent occasionally pruritic rash that has improved onher hands but is worse on her abdomen, she has no other complaints and specifically denies recurrent bleeding and contractions. She describes normal movement. Exam: BP 126/77 Pulse 78 Temp 98.1 ??F (36.7 ??C) (Oral) Resp 18 Ht 5' (1.524 m) Wt 209 lb 8 oz (95 kg) SpO2 100% BMI 40.92 kg/m2 BPmax 154/83 Gen - comfortable, alert, cooperative Abd - soft, gravid, nontender Ext - no calf tenderness FHT - please see separate procedure note Ultrasounds: 12/14: cephalic / EFW 2962 g (85th %ile), AC >99th %ile / KOREY 12.5 cm / TVCL 3.5 cm 12/07: CL 3.8 cm / posterior previa with anterior succenturiate lobe and chorionic vessel ~17 mm from the internal os 11/24: EFW 2214 g (81st %ile), AC >99th %ile Please see separate imaging reports for details. Recent Labs Component Name 12/15/18 0506 12/14/18 0011 12/11/18 0452 12/08/18 0549 WBC 9.1 8.2 12.6* 12.1* RBC 3.84 4.01 3.60* 3.98 HGB 11.0* 12.3 11.1* 11.7* HCT 35.3* 36.9 33.1* 36.2 MCV 91.9 92.0 91.9 91.0 MCHC 31.2 33.3 33.5 32.3 PLTCOUNT 176 194 184 191 NEUTPCT - 61.1 80.3* 73.5* LYMPHPCT - 27.0 11.6* 17.0* BASOPHILPCT - 0.4 0.2 0.4 GRANSIMMPCT - 1.2* 1.5* 1.9* NEUTABS - 5.00 10.08* 8.92* LYMPHABS - 2.21 1.46 2.06 BASOABS - 0.03 0.03 0.05 Recent Labs Component Name 12/15/18 0506 12/11/18 0848 12/08/18 0549 SODIUM 138 135* 136 POTASSIUM 4.1 3.8 4.0 CHLORIDE 105 104 104 CO2 23 18* 20* BUN 7 8 8 CREATININE 0.50* 0.39* 0.43* GLUCOSE 85 151* 94 CALCIUM 9.7 9.7 9.8 ALT 14 14 11* ALKPHOS 169* 179* 159* AST 12 12 11 TBIL 0.2 0.3 0.3 TPROT 6.0* 6.4 6.2* EGFR >60 >60 >60 EGFRAFR >60 >60 >60 Glucose Bedside (mg/dL) 12/18/18 0842 121 mg/dL 12/18/18 0548 82 mg/dL 12/17/18 2042 121 mg/dL 12/17/18 1525 110 mg/dL 12/17/18 0845 107 mg/dL 12/17/18 0712 67 mg/dL 12/17/18 0559 73 mg/dL 12/16/182002 125 mg/dL 12/16/18 1459 124 mg/dL 12/16/18 0815 97 mg/dL I have the following additions/revision to the plan: Start amoxicillin for suspected tooth abscess. Continue Levemir at HS and AC breakfast Novolog. Continue treatment of suspected contact dermatitis with higher potency steroid cream Otherwise, continue and close inpatient monitoring secondary to previa with recurrent vaginal bleeding. If stable in the interim, the plan is for delivery in 3 days Gely Medina MD, MPH * Daylin Neves, FLEX - 12/18/2018 5:55 AM CDT Shift summary: Cait is resting in bed, vs stable, afebrile. She denies pain. Reports movement and scant brown discharge when wiping. Denies LOF/VB, cramping, contractions or pelvic pressure.FOB at bedside for support. IV in place and flushes well. Up independently to the restroom with a steady gait. Call light and phone within reach, educated to call with concerns. No needs at this time. * Daylin Neves RN - 12/18/2018 12:14 AM CDT Cait denies any contractions/cramping. Scant amount of brown discharge on toilet paper. Continues to go outside to smoke, educated not to. Uses wheelchair when she goes, FOB with her. * Kathryn Manning RN - 12/17/2018 10:49 PM CDT Cait C/O gum under tooth getting more swollen. Pustule noted. C/O pressure and aching at site. Remains afebrile. Dr. Faria assessed pt at bedside and Cait aware of plan of care. +FM. Continueswith backache and small amounts brown LOF; no VB. Denies ctx, cramping, BARRERA or vision change. Aware to notify staff of any change in status. Call light and phone in reach. * Essence Faria MD - 12/17/2018 10:31 PM CDT R2 Progress Note In room for mouth pain. Patient resting comfortably with SO in bed and laughing. States has been using oral gel, mouth wash and tylenol scheduled for pain. Notes having a pustule like this before, was started on ABX and eventually states it drained and was gone. PE: Afebrile small pustule on right inferior gum, no erythema surrounding it. Appears limited and not involving tooth. Encouraged continued mouth wash and oral gel with scheduled tylenol. Encouraged warm or cold compresses. Plan to discuss with day team vs utility of possible ABX course in AM. Essence Faria MD 12/17/2018 10:34 PM * Kathryn Manning RN - 12/17/2018 8:10 PM CDT 12/17/182004 Clinician Communication/Critical Test Notification Reason: Condition Update (C/O worsening tooth pain; swollen puss pocket noted at gum) Name of Clinician Notified: Dr. Terry Role: OB Resident Notification Method: Called/Phoned Action Other (Comments) Comments: Dr. Terry will talk with OB team and will see pt * Mary Lion RN - 12/17/2018 4:09 PM CDT Problem: Bleeding Precautions Goal: Excessive bleeding will be minimized Outcome: Ongoing Note: Cait has had no signs of bleeding this shift. Problem: Pain Related to Uterine Contractions Description Alteration in comfort. Goal: Decreased Uterine Activity Outcome: Ongoing Note: Cait denies cramping. She reports feeling rare, mild contractions. Problem: Alteration of Metabolism of Carb/Prot/Fat/Lytes Description Alteration in metabolism of carbohydrates, proteins, fats, and electrolytes related to diabetes andpregnancy. Goal: Blood Glucose Levels Remain WDL for this Patient. Description Blood glucose levels remain within defined limits for this individual. Outcome: Ongoing Note: Cait's blood glucose levels remain within normal limits (see doc flowsheets). * Cheryl Tello MD - 12/17/2018 7:53 AM CDT R2 Antepartum Progress Note Date: 12/17/2018 Hospital Day: 22 Subjective: Cait Mathews is a 23 year old at 35w3d weeks gestation. There were no acute overnight events. She reports scant dark brown discharge and no bright red bleeding. She denies loss of fluid and admits to only occasional contractions. She reports normal movement. Objective: Patient Vitals for the past 24 hrs: Temp Pulse Resp BP SpO2 12/17/18 0550 97.8 ??F (36.6 ??C) -- 20 141/79 98 % 12/17/18 0003 98.6 ??F (37 ??C) 80 20 126/79 100 % 12/16/18 2348 -- 70 -- 161/93 -- 12/16/18 1950 98.2 ??F (36.8 ??C) 87 22 130/85 98 % 12/16/18 1640 97.9 ??F (36.6 ??C) 84 18 141/84 100 % 12/16/18 1210 -- 76 -- 130/76 99 % 12/16/18 0815 98.1 ??F (36.7 ??C) 71 18 139/91 99 % Intake/Output Summary (Last 24 hours) at 12/17/2018 0753 Last data filed at 12/17/2018 0600 Gross per 24 hour Intake 800 ml Output 1100 ml Net -300 ml Physical Exam: General: alert, cooperative, no distress Lungs: clear to auscultation bilaterally Heart: regular rate and rhythm Abdomen: gravid, nontender, no palpable contractions Extremities: normal, non-tender bilaterally Labs: Recent Labs Component Name 12/15/18 0506 12/14/18 0011 12/11/18 0452 WBC 9.1 8.2 12.6* HGB 11.0* 12.3 11.1* HCT 35.3* 36.9 33.1* PLTCOUNT 176 194 184 Recent Labs Component Name 12/15/18 0506 12/11/18 0848 12/08/18 0549 SODIUM 138 135* 136 POTASSIUM 4.1 3.8 4.0 CHLORIDE 105 104 104 CO2 23 18* 20* BUN 7 8 8 CREATININE 0.50* 0.39* 0.43* GLUCOSE 85 151* 94 CALCIUM 9.7 9.7 9.8 ALBUMIN 3.0* 3.4* 3.3* ALKPHOS 169* 179* 159* ALT 14 14 11* AST 12 12 11 TBIL 0.2 0.3 0.3 TPROT 6.0* 6.4 6.2* EGFR >60 >60 >60 NST/Holcomb: See separate procedure note MEDICATIONS FOR CURRENT ENCOUNTER: ?? SCHEDULED MEDICATIONS: ?? 0.9% NaCl injection 10 mL, Intracatheter, q8h ?? acetaminophen (TYLENOL) tablet 650 mg, Oral, q6h ?? chlorhexidine (PERIDEX) 0.12 % oral solution, Swish and Spit, BID ?? diphenhydrAMINE (BENADRYL) capsule 25 mg, Oral, AT BEDTIME ?? insulin aspart (NovoLOG) pen 4 Units, Subcutaneous, QDAY WITH BREAKFAST ?? insulin detemir (LEVEMIR) pen 36 Units, Subcutaneous, AT BEDTIME ?? iron polysaccharides (NIFEREX 150) capsule 150 mg, Oral, QDAY ?? vitamin with iron tablet 1 tablet, Oral, QDAY ?? triamcinolone acetonide (KENALOG) 0.1 % cream, Topical, TID ?? CONTINUOUS MEDICATIONS: ?? PRN MEDICATIONS: ?? Or ?? Or ?? benzocaine (MAXIMUM STRENGTH ORAJEL) 20 % gel, Oral, 4X/day PRN ?? enmirdbubj-ynmptfijnwine-jhuqhdeu (FIORICET) 50-325-40 MG tablet 1 tablet, Oral, q4h PRN ?? calcium carbonate (TUMS) chew tablet 2 tablet, Oral, q4h PRN ?? dextrose IV 12.5-25 g, Intravenous, PRN ?? docusate sodium (COLACE) capsule 100 mg, Oral, BID PRN ?? glucagon (GLUCAGEN) injection 1 mg, Intramuscular, PRN ?? glucose (Diabetic Use) oral gel, Oral, PRN ?? metoclopramide (REGLAN) injection 10 mg, Intravenous, q6h PRN ?? ondansetron (ZOFRAN) injection 4 mg, Intravenous, q6h PRN ?? polyethylene glycol 3350 (MIRALAX) packet 17 g, Oral, QDAY PRN ?? prochlorperazine (COMPAZINE) suppository 25 mg, Rectal, q12h PRN ?? simethicone (MYLICON) chew tablet 160 mg, Oral, 4X/day - PC & NIGHTLY PRN Assessment/Plan: 23 year old at 35w3d, with 1. Posterior placenta previa with low lying chorionic vessel 1. Admitted on 11/25 with 3rd episode of bleeding 2. B+ blood type 3. Bilobed placenta with anterior and posterior discs, chorionic vessel within 2cms of internal cervical os 4. S/p ANCS 09/25- & 11/25- 5. 8: EFW: 2962 grams, 85%ile, AC >99th, KOREY:12.5cms 2. A2GDM 1. Continues on Levemir 36 Units q hs, Novolog 4 units with breakfast 2. Fasting today: 67 3. Yesterday 1. Fastin 2. 1 hour PP Breakfast: 97 3. 1 hour PP Lunch: 124 4. 1 hour PP dinner: 125 3. Suspect PreE without SF 1. P/C ratio on 12/08: 1.18 (straight cath) 2. H/o PreE with G1 3. Last 24 hour BPs: 107-161/69-93 (mostly 130s-140s/70s-80s) 4. Denies s/s today 4. H/o LTCS with G1 1. Breech with PreE at 34 weeks 5. Concern for dental caries 1. S/p Amoxicillin x 10 days 2. Chlorhexidine mouth swish ordered BID 6. H/o Tobacco use 1. Nicotine patch PRN 7. Supervision of 1. PNC with HRC 2. Dating by Dating by 15 week u/s 3. NIPT neg 4. B+/I/-/- ??HIV neg 5. GCT: 147 6. GTT: WNL (trending LGA growth and elevated BS as an inpatient prompted beginning insulin) 8. NST reactive 9. Dispo: Continue inpatient management for placenta previa. delivery scheduled for 12/21 at 36 weeks or sooner if clinically indicated. Signed Tubal paperwork and awaiting ethics approval. Patient still not 100% sure she wants the BTL even if approved. Cheryl Tello MD 12/17/2018 7:53 AM Associated attestation - Gely Mednia MD - 12/17/2018 2:16 PM CDT [facility] I have reviewed Cait Mathews who is a 23 year old with a hernadez gestation at 35w3d with the OB resident team. We have discussed her recent clinical course. Cait is here with a posterior previa with a succenturiate lobe with a vessel passing within ~2 cm of the internal os. She also has preeclampsia without severe features and GDM. I have evaluated and counseled her. Aside from the persistent occasionally pruritic rash that has improved on her hands but is worse on her abdomen, she has no complaints and specifically denies recurrent bleeding and contractions. She describes normal movement. Exam: BP 148/90 Pulse 69 Temp 98.2 ??F (36.8 ??C) (Oral) Resp 18 Ht 5' (1.524 m) Wt 210 lb 8 oz (95.5 kg)SpO2 97% BMI 41.11 kg/m2 BPmax 161/93 (isolated severe-range BP) Gen - comfortable, alert, cooperative Abd - soft, gravid, nontender Ext - no calf tenderness FHT - please see separate procedure note Ultrasounds: 12/14: cephalic / EFW 2962 g (85th %ile), AC >99th %ile / KOREY 12.5 cm / TVCL 3.5 cm 12/07: CL 3.8 cm / posterior previa with anterior succenturiate lobe and chorionic vessel ~17 mm from the internal os 11/24: EFW 2214 g (81st %ile), AC >99th %ile Please see separate imaging reports for details. Recent Labs Component Name 12/15/18 0506 12/14/18 0011 12/11/18 0452 12/08/18 0549 WBC 9.1 8.2 12.6* 12.1* RBC 3.84 4.01 3.60* 3.98 HGB 11.0* 12.3 11.1* 11.7* HCT 35.3* 36.9 33.1* 36.2 MCV 91.9 92.0 91.9 91.0 MCHC 31.2 33.3 33.5 32.3 PLTCOUNT 176 194 184 191 NEUTPCT - 61.1 80.3* 73.5* LYMPHPCT - 27.0 11.6* 17.0* BASOPHILPCT - 0.4 0.2 0.4 GRANSIMMPCT - 1.2* 1.5* 1.9* NEUTABS - 5.00 10.08* 8.92* LYMPHABS - 2.21 1.46 2.06 BASOABS - 0.03 0.03 0.05 Recent Labs Component Name 12/15/18 0506 12/11/18 0848 12/08/18 0549 SODIUM 138 135* 136 POTASSIUM 4.1 3.8 4.0 CHLORIDE 105 104 104 CO2 23 18* 20* BUN 7 8 8 CREATININE 0.50* 0.39* 0.43* GLUCOSE 85 151* 94 CALCIUM 9.7 9.7 9.8 ALT 14 14 11* ALKPHOS 169* 179* 159* AST 12 12 11 TBIL 0.2 0.3 0.3 TPROT 6.0* 6.4 6.2* EGFR >60 >60 >60 EGFRAFR >60 >60 >60 Glucose Bedside (mg/dL) 12/17/18 0845 107 mg/dL 12/17/18 0712 67 mg/dL 12/17/18 0559 73 mg/dL 12/16/182002 125 mg/dL 12/16/18 1459 124 mg/dL 12/16/18 0815 97 mg/dL I have the following additions/revision to the plan: Continue Levemir at HS and AC breakfast Novolog. Continue treatment of suspected contact dermatitis with higher potency steroid cream Otherwise, continue and close inpatient monitoring secondary to previa with recurrent vaginal bleeding. If stable in the interim, the plan is for delivery in 4 days Gely Medina MD, MPH * Kathryn Manning RN - 12/17/2018 6:14 AM CDT Shift summary: Cait was able to rest through the night. Continues with scant amount brown LOF; denies VB, ctx, cramping, BARRERA or vision change. Fasting BS 73. Labs updated. Requested daily weight beobtained the next time she gets OOB. Cait states she will call RN when she is up to BR again this morning. Call light and phone remain in reach. No needs expressed at this time. * Kathryn Manning RN - 12/17/2018 12:17 AM CDT Problem: Bleeding Precautions Goal: Excessive bleeding will be minimized Outcome: Ongoing Cait states having scant amounts of brown LOF which is ongoing and not new. No bleeding. Problem: Pain Related to Uterine Contractions Alteration in comfort. Goal: Decreased Uterine Activity Outcome: Ongoing Cait denies ctx or cramping. 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 Patient reports no vaginalbleeding. States my normal brown discharge. Denies feeling contractions. Reports good movement. She denies chest pain, shortness of breath, headache, N/V or abdominal pain. Dr. Medina performed BSUS yesterday to assess placenta and vessels. Objective: BP 139/91 Pulse 71 Temp 98.1 ??F (36.7 ??C) Resp 18 Ht 5' (1.524 m) Wt 211 lb 9.6 oz (96kg) SpO2 99% BMI 41.33 kg/m2 Temp (24hrs) Max:98.7 ??F (37.1 ??C) Systolic (30hrs), Av , Min:107 , Max:142 Diastolic (30hrs), Av, Min:69, Max:97 Intake/Output Summary (Last 24 hours) at 12/16/18 1312 Last data filed at 12/16/18 0601 Gross per 24 hour Intake 0 ml Output 650 ml Net -650 ml Patient Vitals for the past 30 hrs: Glucose Bedside (mg/dL) 12/16/18 0601 74 mg/dL 12/15/18 2048 166 mg/dL 12/15/18 1840 146 mg/dL 12/15/18 0830 119 mg/dL Physical Exam: General: alert, cooperative, no distress Lungs: non-labored respirations Abdomen: gravid, NT Extremities: No LE edema noted NST: See formal NST Note: reactive TOCO: No contractions noted Problem List: Patient Active Problem List: Tobacco abuse Preeclampsia Supervision of high risk , antepartum Pre-eclampsia in third trimester Previous delivery, antepartum condition or complication Previous delivery, antepartum Obesity affecting in third trimester Depressive disorder 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 SCHEDULED MEDICATIONS: ?? 0.9% NaCl injection 10 mL, Intracatheter, q8h ?? acetaminophen (TYLENOL) tablet 650 mg, Oral, q6h ?? chlorhexidine (PERIDEX) 0.12 % oral solution, Swish and Spit, BID ?? diphenhydrAMINE (BENADRYL) capsule 25 mg, Oral, AT BEDTIME ?? insulin aspart (NovoLOG) pen 4 Units, Subcutaneous, QDAY WITH BREAKFAST ?? insulin detemir (LEVEMIR) pen 36 Units, Subcutaneous, AT BEDTIME ?? iron polysaccharides (NIFEREX 150) capsule 150 mg, Oral, QDAY ?? vitamin with iron tablet 1 tablet, Oral, QDAY ?? triamcinolone acetonide (KENALOG) 0.1 % cream, Topical, TID ?? CONTINUOUS MEDICATIONS: ?? PRN MEDICATIONS: ?? Or ?? Or ?? benzocaine (MAXIMUM STRENGTH ORAJEL) 20 % gel, Oral, 4X/day PRN ?? iwlecwvqbz-wmshfdbpfynne-appmywll (FIORICET) 50-325-40 MG tablet 1 tablet, Oral, q4h PRN ?? calcium carbonate (TUMS) chew tablet 2 tablet, Oral, q4h PRN ?? dextrose IV 12.5-25 g, Intravenous, PRN ?? docusate sodium (COLACE) capsule 100 mg, Oral, BID PRN ?? glucagon (GLUCAGEN) injection 1 mg, Intramuscular, PRN ?? glucose (Diabetic Use) oral gel, Oral, PRN ?? metoclopramide (REGLAN) injection 10 mg, Intravenous, q6h PRN ?? ondansetron (ZOFRAN) injection 4 mg, Intravenous, q6h PRN ?? polyethylene glycol 3350 (MIRALAX) packet 17 g, Oral, QDAY PRN ?? prochlorperazine (COMPAZINE) suppository 25 mg, Rectal, q12h PRN ?? simethicone (MYLICON) chew tablet 160 mg, Oral, 4X/day - PC & NIGHTLY PRN Assessment/ Plan: 23 year old at 35w2d 2. Posterior placenta previa with low lying chorionic vessel 1. Admitted on 11/25 with 3rd episode of bleeding 1. B+ blood type 2. Bilobed placenta with anterior and posterior discs, chorionic vessel within 2cms of internal cervical os 3. S/p ANCS 09/25- & 4. 8: EFW: 2962 grams, 85%ile, AC >99th, KOREY:12.5cms 3. A2GDM 1. Continues on Levemir 36 Units q hs, started Novolog 4 units with breakfast yesterday 2. Fasting today: 74 1. Yesterday 1. Fastin 2. 1 hour PP Breakfast: 119 (4 Units of Novolog) 3. 1 hour PP Lunch: 146 4. 1 hour PP dinner: 166 (States she ate [employer]) 4. Suspect PreE without SF 1. P/C ratio on 12/08: 1.18 (straight cath) 2. H/o PreE with G1 3. Last 24 hour BPs: 107-142/69-95 5. H/o LTCS with G1 1. Breech with PreE at 34 weeks 6. Concern for dental caries 1. S/p Amoxicillin x 10 days 2. Chlorhexidine mouth swish ordered BID 7. H/o Tobacco use 1. Nicotine patch PRN 8. Supervision of 1. PNC with HRC 2. Dating by Dating by 15 week u/s 3. NIPT neg 4. B+/I/-/- HIV neg 5. GCT: 147 1. GTT: WNL (trending LGA growth and elevated BS as an inpatient prompted beginning insulin) 9. NST reactive 10. Dispo: Continue inpatient management for placenta previa. delivery scheduled for 12/21 at 36 weeks or sooner if clinically indicated. Signed Tubal paperwork and awaiting ethics approval (Dr. Nguyen spoke with them today). Patient still not 100%sure she wants the BTL even if approved. Plan discussed with Dr. Medina on rounds [facility] 12/16/2018 1:12 PM * Lynda Pat, RN - 12/16/2018 7:29 AM CDT 12/16/18 0710 Clinician Communication/Critical Test Notification Reason: Order Clarification Name of Clinician Notified: dr jansen Role: OB Resident Notification Method: Called/Phoned Action Orders Received Pt called RN reporting she had already eaten breakfast but had forgotten to notify her nurse so shecould get her Insulin. Pt reports she finished her breakfast at 0705. Pt's blood sugar at [address] Jansen, hold pt's Insulin at this time. Check pt's blood sugar 1 hour PP as ordered, call Dr Jansen for possible correction dose at that time. * Myriam Luo RN - 12/16/2018 6:17 AM CDT Shift Summary: Cait Mathews rested well overnight. VSS. She denies any cramping, contractions or vaginal bleeding she continues to report scant dark brown vaginal discharge that is unchanged. She reports + movement. She denies any headaches, visual changes or RUQ pain. Daily weight completed and resulted at 211 lbs. Cait Mathews denies any other needs or concerns at this time. Currently resting in bed with call light in reach. Will continue to monitor. * Myriam Luo RN - 12/16/2018 3:31 AM CDT Problem: Pain Related to Uterine Contractions Alteration in comfort. Goal: Decreased Uterine Activity Outcome: Ongoing Cait Mathews denies any cramping, contractions, LOF or VB. Problem: Anticipatory Greiving and Anxiety Related to Threatened Loss Goal: Decreased Anxiety R/T Fear of Unknown Outcome Outcome: Ongoing Cait Mathews verbalized understanding of plan of care and is counting down the days until delivery * Sarah Chatman MD - 12/15/2018 3:35 PM CDT Late entry Bedside ultrasound performed by Dr. Medina and myself. Placental mapping performed in preparation for next week. No obvious signs of accreta on ultrasound today. Posterior lobe of placenta difficult to assess with transabdominal ultrasound. Lower uterine segment superior to bladder interface appears free of vessels and should serve as a safe plane for low transverse uterine incision Sarah Chatman MD 12/16/2018 6:37 AM * Ksenia Mg I - 12/15/2018 10:44 AM CDT Problem: Biochemical: Altered nutrition-related laboratory values Goal: Biochemical: Other (Comments) Elevated fasting BG at GTT Goal of FBS <90mg/dl and 1 hr PP ,130 mg/ dl Outcome: Ongoing Nutrition Goal Progress: Progressing toward goal;Continue with current goal Comments: CLINICAL NUTRITION REASSESSMENT Assessment: Pt was seen today for follow up, pt was resting in bed and reports she is good , doesn't need any changes to current snacks . PO Intake Average (last 72 hours): % Meal Taken Av.4 % Min: 75 % Max: 100 % Blood sugar range is good 75-176 , noted insulin adjustments , FBS for the last 3 days 84/75/76 . Weight is up 4 # in 2 days . Bowels are moving . Upgrade to moderate risk . Med/Surg History and Clinical Diagnoses: 32w5d complete previa with vaginal bleeding h/o C/s Current diet order: Consistent Carb Standard Food Allergies: No known food allergies P.O intake for past 48 hrs: % Meal Taken Av % Min: 100 % Max: 100 % % Oral Supplement Intake:No Data Recorded Pain affecting intake: No Patient Vitals for the past 336 hrs: Weight Weight Method 12/15/18 0545 209 lb 6.4 oz (95 kg) [facility] 12/14/18 0500 207 lb 3.2 oz (94 kg) [facility] 12/13/18 0557 205 lb (93 kg) - 12/09/18 2355 202 lb (91.6 kg) - No new Weight/Weight change: up 4 # / 2 days New Meds:Novolog and Levimer changes LABS: Recent Labs Component Name 12/15/18 0506 SODIUM 138 POTASSIUM 4.1 CHLORIDE 105 CO2 23 BUN 7 CREATININE 0.50* GLUCOSE 85 CALCIUM 9.7 ALBUMIN 3.0* ALKPHOS 169* ALT 14 AST 12 TBIL 0.2 TPROT 6.0* EGFR >60 Patient Vitals for the past 30 hrs: Glucose Bedside (mg/dL) 12/15/18 0830 119 mg/dL 12/15/18 0545 76 mg/dL 12/14/18 2117 107 mg/dL 12/14/18 2110 107 mg/dL 12/14/18 1748 112 mg/dL 12/14/18 1218 176 mg/dL 12/14/18 0500 75 mg/dL Skin/Wound: WDL Last BM: 12-14-18 Nutrition Care Process (1) Nutrition Diagnostic Statement: Altered nutrition-related lab values related to:: --- () as evidenced by:: elevated laboratory values Nutrition Diagnostic Statement Progress: Nutrition problem continues Nutrition Intervention: Meals and snacks:;Nutrition Education - Content Current diet order: Consistent Carb Standard Nutrition recommendation: agree with current nutrition order Education needed: Consistent Carb Education provided earlier in admission Pt educated : Discussed healthy eating during with regards to diabetes. Reviewed recommended servings of fruits, vegetables, whole grains, protein, and calcium rich foods. Recommended CHO meal/snack pattern of 30-45 gm CHO with breakfast, 45-60 gm CHO at L&D , and 15-30 gm CHO per snack and recommended protein with all meals. Encouraged daily exercise of at least 30 minutes, 5 days a week, and discouraged consumption of high-fat/high-calorie foods. Recommended pt consume adequate fluids from water (recommendation of 64 oz/day) and avoid soda and sugary beverages. Encouraged for 6 months to 1 year and discussed benefits to mother and baby. Expected level of compliance: Fair Following pt at moderate nutritional risk, 3-5 days per protocol . Nutrition recommendation: agree with current nutrition order ?? Continue 45/60 gm carb consistent diet for with 3 snacks ?? Continue current snacks of pt's preference ?? Daily weights Monitoring: Follow for weights , intake, skin, labs, BM's Evaluation: Nutrition Goal: Biochemical data will be improved/normalized Nutrition Goal Timeframe: Throughout stay Ksenia Mg DTR 12/15/2018 10:44 AM Ascom [id number] * Deepa Chaudhry APRN-LEGAL SERVICE SPECIALIST - 12/15/2018 9:00 AM CDT AGRICULTURAL PLOW OPERATOR MFM Antepartum Progress Note Date: 12/15/2018 Hospital Day: 20 Subjective: Cait Mathews is a 23 year old G 2 P 1 A 0 at 35w1d weeks gestation. Patient reports no c/o's. Denies BARRERA, vision changes, chest pain, SOB or RUQ pain. Reports good movement. Denies any vaginal bleeding, reports same brown discharge. Asking about labs and how often she has to have them. Discussed weekly unless Blood pressures are severe or she is symptomatic. Objective: BP 136/95 Pulse 69 Temp 97.6 ??F (36.4 ??C) Resp 18 Ht 5' (1.524 m) Wt 209 lb 6.4 oz (95kg) SpO2 99% BMI 40.9 kg/m2 Temp (24hrs) Max:98.2 ??F (36.8 ??C) Systolic (30hrs), Av , Min:123 , Max:143 Diastolic (30hrs), Av, Min:76, Max:95 Intake/Output Summary (Last 24 hours) at 12/15/18 0900 Last data filed at 12/15/18 0545 Gross per 24 hour Intake 1820 ml Output 1850 ml Net -30 ml Patient Vitals for the past 30 hrs: Glucose Bedside (mg/dL) 12/15/18 0830 119 mg/dL 12/15/18 0545 76 mg/dL 12/14/18 2117 107 mg/dL 12/14/18 2110 107 mg/dL 12/14/18 1748 112 mg/dL 12/14/18 1218 176 mg/dL 12/14/18 0500 75 mg/dL Physical Exam: General: alert, cooperative, no distress Lungs: non-labored respirations Abdomen: gravid, NT Extremities: No LE edema noted NST: See formal NST Note TOCO: Problem List: Patient Active Problem List: Tobacco abuse Preeclampsia Supervision of high risk , antepartum Pre-eclampsia in third trimester Previous delivery, antepartum condition or complication Previous delivery, antepartum Obesity affecting in third trimester Depressive disorder 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 SCHEDULED MEDICATIONS: ?? 0.9% NaCl injection 10 mL, Intracatheter, q8h ?? acetaminophen (TYLENOL) tablet 650 mg, Oral, q6h ?? chlorhexidine (PERIDEX) 0.12 % oral solution, Swish and Spit, BID ?? diphenhydrAMINE (BENADRYL) capsule 25 mg, Oral, AT BEDTIME ?? docusate sodium (COLACE) capsule 100 mg, Oral, BID ?? insulin aspart (NovoLOG) pen 4 Units, Subcutaneous, QDAY WITH BREAKFAST ?? insulin detemir (LEVEMIR) pen 36 Units, Subcutaneous, AT BEDTIME ?? iron polysaccharides (NIFEREX 150) capsule 150 mg, Oral, QDAY ?? vitamin with iron tablet 1 tablet, Oral, QDAY ?? triamcinolone acetonide (KENALOG) 0.1 % cream, Topical, TID ?? CONTINUOUS MEDICATIONS: ?? PRN MEDICATIONS: ?? Or ?? Or ?? benzocaine (MAXIMUM STRENGTH ORAJEL) 20 % gel, Oral, 4X/day PRN ?? oxpkepdlft-hhbefypwiuyti-uaemwpmj (FIORICET) 50-325-40 MG tablet 1 tablet, Oral, q4h PRN ?? calcium carbonate (TUMS) chew tablet 2 tablet, Oral, q4h PRN ?? dextrose IV 12.5-25 g, Intravenous, PRN ?? glucagon (GLUCAGEN) injection 1 mg, Intramuscular, PRN ?? glucose (Diabetic Use) oral gel, Oral, PRN ?? metoclopramide (REGLAN) injection 10 mg, Intravenous, q6h PRN ?? ondansetron (ZOFRAN) injection 4 mg, Intravenous, q6h PRN ?? polyethylene glycol 3350 (MIRALAX) packet 17 g, Oral, QDAY PRN ?? prochlorperazine (COMPAZINE) suppository 25 mg, Rectal, q12h PRN ?? simethicone (MYLICON) chew tablet 160 mg, Oral, 4X/day - PC & NIGHTLY PRN Assessment/ Plan: 23 year old at 35w1d 1. Posterior placenta previa with low lying chorionic vessel 1. Admitted on 11/25 with 3rd episode of bleeding 1. B+ blood type 2. Bilobed placenta with anterior and posterior discs, chorionic vessel within 2cms of internal cervical os 3. S/p ANCS 5/19-20 & 4. 12/14: EFW: 2962 grams, 85%ile, AC >99th, KOREY:12.5cms 2. A2GDM 1. Continues on Levemir 36 Units q hs, started Novolog 4 units with breakfast today 2. Fasting today: 76 1. Yesterday 1. Fastin 2. 1 hour PP Breakfast: 176 3. No lunch 4. 1 hour PP dinner: 112 3. Suspect PreE without SF 1. P/C ratio on 12/08: 1.18 (straight cath) 2. H/o PreE with G1 3. Last 24 hour BPs: 123-143/76-95 4. H/o LTCS with G1 1. Breech with PreE at 34 weeks 5. Concern for dental caries 1. S/p Amoxicillin x 10 days 2. Chlorhexidine mouth swish ordered BID 6. H/o Tobacco use 1. Nicotine patch PRN 7. Supervision of 1. PNC with HRC 2. Dating by 3. NIPT neg 4. B+/I/-/- HIV neg 5. GCT: 147 1. GTT: WNL (trending LGA growth and elevated BS as an inpatient) 6. Dating by 15 week u/s 8. NST reactive 9. Dispo: Continue inpatient management for placenta previa. delivery scheduled for 12/21 at 36 weeks or sooner if clinically indicated. Plan discussed with Dr. Medina on rounds, discussed reviewing ultrasound report from 12/14/18 [facility] 12/15/2018 9:00 AM * Janel Rodriguez - 12/15/2018 6:47 AM CDT Images from the original note were not included. Medical Student Antepartum Progress Note Date: 12/15/2018 Hospital Day: 20 Subjective: Cait Mathews is a 23 year old at 35w1d weeks gestation. There were no acute overnight events. She reports feeling mild contractions 4x a day and a brown discharge visible with wiping. Ptreported a puritic rash on the dorsal side of both hands and the left lower abdomen. She denies vaginal bleeding, loss of fluid, RUQ pain, and changes in vision. She reports normal movement. Objective: Patient Vitals in the past 24 hrs: 12/15/18 0545, Temp:97.2 ??F (36.2 ??C), Pulse:68, Resp:18, BP:143/95 12/15/18 0020, Temp:97.7 ??F (36.5 ??C), Pulse:80, Resp:18, BP:135/83 12/14/18 1955, Temp:97.4 ??F (36.3 ??C), Pulse:79, Resp:18, BP:123/85 12/14/18 1550, Temp:98 ??F (36.7 ??C), Pulse:78, Resp:18, BP:123/76 12/14/18 1240, Temp:98 ??F (36.7 ??C), Pulse:79, Resp:18, BP:129/90 12/14/18 0915, Temp:98.2 ??F (36.8 ??C), Pulse:76, Resp:18, BP:130/81 Intake/Output Summary (Last 24 hours) at 12/15/18 0733 Last data filed at 12/15/18 0545 Gross per 24 hour Intake: 1820 ml Output: 1850 ml Net : -30 ml Physical Exam: General: alert, cooperative, no distress Lungs: nonlabored respirations Abdomen: gravid, nontender Extremities: no edema or tenderness bilaterally Labs CBC Recent Labs Component Name 12/15/18 0506 12/14/18 0011 12/11/18 0452 WBC 9.1 8.2 12.6* HGB 11.0* 12.3 11.1* HCT 35.3* 36.9 33.1* MCV 91.9 92.0 91.9 CMP Recent Labs Component Name 12/15/18 0506 12/11/18 0848 12/08/18 0549 CO2 23 18* 20* CREATININE 0.50* 0.39* 0.43* BUN 7 8 8 ALKPHOS 169* 179* 159* ALT 14 14 11* AST 12 12 11 CATIONS Recent Labs Component Name 12/15/18 0506 12/11/18 0848 12/08/18 0549 CALCIUM 9.7 9.7 9.8 LFTs Recent Labs Component Name 12/15/18 0506 ALT 14 AST 12 ALKPHOS 169* COAGs Recent Labs Component Name 11/14/13 2150 PT <9.2* INR <0.860* DIABETES Recent Labs Component Name 12/15/18 0506 CREATININE 0.50* NST/Holcomb: See separate procedure note MEDICATIONS FOR CURRENT ENCOUNTER: SCHEDULED MEDICATIONS: 0.9% NaCl injection 10 mL, Intracatheter, q8h acetaminophen (TYLENOL) tablet 650 mg, Oral, q6h chlorhexidine (PERIDEX) 0.12 % oral solution, Swish and Spit, BID diphenhydrAMINE (BENADRYL) capsule 25 mg, Oral, AT BEDTIME docusate sodium (COLACE) capsule 100 mg, Oral, BID insulin aspart (NovoLOG) pen 4 Units, Subcutaneous, QDAY WITH BREAKFAST insulin detemir (LEVEMIR) pen 36 Units, Subcutaneous, AT BEDTIME iron polysaccharides (NIFEREX 150) capsule 150 mg, Oral, QDAY vitamin with iron tablet 1 tablet, Oral, QDAY ?? triamcinolone acetonide (KENALOG) 0.1 % cream, Topical, TID ?? CONTINUOUS MEDICATIONS: PRN MEDICATIONS: Or Or benzocaine (MAXIMUM STRENGTH ORAJEL) 20 % gel, Oral, 4X/day PRN hzbjdruxvm-cossgtqbyujma-gzvhioim (FIORICET) 50-325-40 MG tablet 1 tablet, Oral, q4h PRN calcium carbonate (TUMS) chew tablet 2 tablet, Oral, q4h PRN dextrose IV 12.5-25 g, Intravenous, PRN glucagon (GLUCAGEN) injection 1 mg, Intramuscular, PRN glucose (Diabetic Use) oral gel, Oral, PRN metoclopramide (REGLAN) injection 10 mg, Intravenous, q6h PRN ondansetron (ZOFRAN) injection 4 mg, Intravenous, q6h PRN polyethylene glycol 3350 (MIRALAX) packet 17 g, Oral, QDAY PRN prochlorperazine (COMPAZINE) suppository 25 mg, Rectal, q12h PRN ?? simethicone (MYLICON) chew tablet 160 mg, Oral, 4X/day - PC & NIGHTLY PRN Assessment/Plan: 23 year old at 35w1d, AFVSS, with Patient Active Problem List Diagnosis Date Noted ??? Vasa previa Priority: Not Prioritized ??? Depression Priority: Not Prioritized ??? Bilobed placenta 12/08/2018 Priority: Not Prioritized Bilobate: Anterior & posterior with a left lateral accessory lobe: ??? 34 weeks gestation of Priority: Not Prioritized ??? Insulin controlled gestational diabetes mellitus (GDM) in third trimester 12/05/2018 Priority: Not Prioritized ??? Maternal asthma complicating 12/05/2018 Priority: Not Prioritized ??? Vaginal bleeding during 11/25/2018 Priority: Not Prioritized ??? Placenta previa in third trimester Priority: Not Prioritized ??? Depressive disorder 08/01/2018 Priority: Not Prioritized ??? 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 Gastroesophageal reflux disease 08/01/2018 Priority: Not Prioritized ??? Hyperhidrosis 08/01/2018 Priority: Not Prioritized ??? Pre-eclampsia in third trimester Priority: Not Prioritized ??? Previous delivery, antepartum condition or complication Priority: Not Prioritized ??? Previous delivery, antepartum Priority: Not Prioritized ??? Obesity affecting in third trimester Priority: Not Prioritized ??? Tobacco abuse 11/09/2013 ??? Preeclampsia 11/09/2013 ??? Supervision of high risk , antepartum 11/09/2013 1. Posterior/Anterior Placenta Previa and vasa previa -TVUS yesterday (12/14/18) : vertex, KOREY 12.52, EFW 2962g (87%) AC > 99% -Continue inpatient monitoring CS @ 36 weeks unless clinically indicated earlier. (Scheduled 12/21) 2. Rash -May be contact dermatitis but neither pt or staff could identify a specific irritant. -pt reports the rash is still present but does seem to be less pruritic since treating with triamcinolone acetonide. -Continue to monitor and treat w/ cream. 3. Pre-Eclampsia w/o Severe Features -Bp yesterday were all normotensive (110-130/65-90). -Today's reading's show one mild range (143/95) -pt denies symptoms consistent with severe features such as RUQ pain or changes in vision -Continue to monitor bp ranges and check for severe features. 4. Gestational Diabetes -well controlled with Novalog 4 units, Levemir 36 units. -AC breakfast Novolog was ordered yesterday and pt seems to tolerate well -Fastin -Continue current regime Janel Rodriguez, MS3 12/15/18 7:33 AM Associated attestation - Vijaya Ashton MD - 12/15/2018 7:52 AM CDT R1 Attestation Pt seen and examined with the medical student Present and performed entire physical exam and completed all medical decision making Please refer to resident note for assessment and plan Vijaya Ashton MD 12/15/2018 7:51 AM * Vijaya Ashton MD - 12/15/2018 5:55 AM CDT PGY1 Antepartum Progress Note Date: 12/15/2018 Hospital Day: 20 Subjective: Cait Mathews is a 23 year old at 35w1d weeks gestation. There were no acute overnight events. She continues to reports a small amount of brown vaginal discharge overnight . She denies vaginal bleeding, loss of fluid, and contractions. She reports normal movement. She denies any headache, SOB, RUQ pain, or increased swelling. Objective: Patient Vitals for the past 24 hrs: Temp Pulse Resp BP SpO2 12/15/18 0545 97.2 ??F (36.2 ??C) 68 18 143/95 99 % 12/15/18 0020 97.7 ??F (36.5 ??C) 80 18 135/83 99 % 12/14/18 1955 97.4 ??F (36.3 ??C) 79 18 123/85 99 % 12/14/18 1550 98 ??F (36.7 ??C) 78 18 123/76 98 % 12/14/18 1240 98 ??F (36.7 ??C) 79 18 129/90 98 % 12/14/18 0915 98.2 ??F (36.8 ??C) 76 18 130/81 99 % Intake/Output Summary (Last 24 hours) at 12/15/18 0555 Last data filed at 12/15/18 0020 Gross per 24 hour Intake 1320 ml Output 1250 ml Net 70 ml Physical Exam: General: alert, cooperative, no distress Lungs: clear to auscultation bilaterally Heart: regular rate and rhythm Abdomen: gravid, nontender, no palpable contractions Extremities: normal, non-tender bilaterally Labs: Recent Labs Component Name 12/15/18 0506 12/14/18 0011 12/11/18 0452 WBC 9.1 8.2 12.6* HGB 11.0* 12.3 11.1* HCT 35.3* 36.9 33.1* PLTCOUNT 176 194 184 Recent Labs Component Name 12/11/18 0848 12/08/18 0549 12/06/18 1253 SODIUM 135* 136 133* POTASSIUM 3.8 4.0 3.9 CHLORIDE 104 104 103 CO2 18* 20* 20* BUN 8 8 6* CREATININE 0.39* 0.43* 0.41* GLUCOSE 151* 94 107* CALCIUM 9.7 9.8 10.1 ALBUMIN 3.4* 3.3* 3.3* ALKPHOS 179* 159* 172* ALT 14 11* 12* AST 12 11 12 TBIL 0.3 0.3 0.3 TPROT 6.4 6.2* 6.4 EGFR >60 >60 >60 NST/Holcomb: See separate procedure note MEDICATIONS FOR CURRENT ENCOUNTER: ?? SCHEDULED MEDICATIONS: ?? 0.9% NaCl injection 10 mL, Intracatheter, q8h ?? acetaminophen (TYLENOL) tablet 650 mg, Oral, q6h ?? chlorhexidine (PERIDEX) 0.12 % oral solution, Swish and Spit, BID ?? diphenhydrAMINE (BENADRYL) capsule 25 mg, Oral, AT BEDTIME ?? docusate sodium (COLACE) capsule 100 mg, Oral, BID ?? insulin aspart (NovoLOG) pen 4 Units, Subcutaneous, QDAY WITH BREAKFAST ?? insulin detemir (LEVEMIR) pen 36 Units, Subcutaneous, AT BEDTIME ?? iron polysaccharides (NIFEREX 150) capsule 150 mg, Oral, QDAY ?? vitamin with iron tablet 1 tablet, Oral, QDAY ?? triamcinolone acetonide (KENALOG) 0.1 % cream, Topical, TID ?? CONTINUOUS MEDICATIONS: ?? PRN MEDICATIONS: ?? Or ?? Or ?? benzocaine (MAXIMUM STRENGTH ORAJEL) 20 % gel, Oral, 4X/day PRN ?? eishunckhl-irbstoqzdawut-eplmeefx (FIORICET) 50-325-40 MG tablet 1 tablet, Oral, q4h PRN ?? calcium carbonate (TUMS) chew tablet 2 tablet, Oral, q4h PRN ?? dextrose IV 12.5-25 g, Intravenous, PRN ?? glucagon (GLUCAGEN) injection 1 mg, Intramuscular, PRN ?? glucose (Diabetic Use) oral gel, Oral, PRN ?? metoclopramide (REGLAN) injection 10 mg, Intravenous, q6h PRN ?? ondansetron (ZOFRAN) injection 4 mg, Intravenous, q6h PRN ?? polyethylene glycol 3350 (MIRALAX) packet 17 g, Oral, QDAY PRN ?? prochlorperazine (COMPAZINE) suppository 25 mg, Rectal, q12h PRN ?? simethicone (MYLICON) chew tablet 160 mg, Oral, 4X/day - PC & NIGHTLY PRN Assessment/Plan: 23 year old at 35w1d, with Posterior placenta previa with low lying chorionic vessel 1. Admitted 11/25 with third episode of bleeding 2. Bilobed placenta with anterior and posterior discs as well as an accessory left lateral placental lobe. Chronic vessel within 2cm of internal cervical os 3. T&S: B+, Ab negative (updated 12/11) 4. TVUS every Wednesday (last done 12/14/2018): CL 3.56cm 1. EFW 2962g (85%) AC >99% 5. ANCS 09/25-, rANCS 11/25- 6. S/p NICU consult 7. Plan: CS at 36 weeks unless preeclampsia becomes severe features (already scheduled 12/21) ? GDM 1. GCT 147 2. GTT 97/167/121/138 3. US 11/24: EFW 2214g (81%), AC >99% 4. 12/14 sugars: 75, 176, 112, 107 5. 12/15 fastin 6. Cont levemir 36 QHS, start novolog 4 units with breakfast ? Suspect PreE without severe features 1. 24 hour BP ranges: overall normotensive with one diastolic of 90 1. One severe range blood pressure to 160/103 on 12/07/18 at 1610 2. Asymptomatic 3. 8/1 P:C ratio from straight cath 1.18 (of note did have RBCs) 4. Recent CBC and CMP wnl ? H/O LTCS 1. G1 in 2014 at 34 weeks due to PreE and breech presentation ? Concern for Dental Caries (3rd tooth from right side of inferior jaw is painful to touch) 1. Painful, diagnosed outpatient 2. S/p amoxicillin x 10 days 3. Prescribed swish and swallow solution 4. Follow up outpatient ? Tobacco Use 1. Encourage cessation 2. Nicotine patch inpatient PRN ? New Onset Rash 1. TPA neg 10/27/18 2. Has topical steroid cream for relief ? Dispo: continue inpatient management Vijaya Ashton MD 12/15/2018 5:55 AM * Rupa Anthony RN - 12/14/2018 6:39 PM CDT Shift summary: Pt resting in bed. Pt denies ctxs, vag bleeding, LOF, BARRERA, epigastric pain, and vision changes. Positive movement noted per pt. SL is intact. VS per flow sheet. Pt to call with needs. * Anupama Flynn RDMS - 12/14/2018 10:09 AM CDT Patient was seen for ultrasound 12/14/2018 Position - vertex KOREY - 12.52 cm Heart rate- 142 bpm EFW- 2962g (6lb 8oz) Overall- 85.7% AC- >99% Cervical length- 3.56 cm Placenta Location - Anterior/Posterior previa Comments- Ultrasound completed by Anupama Cantu RDMS * Vijaya Ashton MD - 12/14/2018 5:53 AM CDT PGY1 Antepartum Progress Note Date: 12/14/2018 Hospital Day: 19 Subjective: Cait Mathews is a 23 year old at weeks gestation. There were no acute overnight events. She reports continued brown vaginal spotting, but no bright red bleeding. She denies any abdominalpain, fevers or chills, headache, RUQ pain, SOB, or increased swelling. She denies loss of fluid, and contractions. She reports normal movement. Objective: Patient Vitals for the past 24 hrs: Temp Pulse Resp BP SpO2 12/14/18 0500 98.2 ??F (36.8 ??C) 75 18 129/89 96 % 12/14/18 0025 - 73 18 110/65 - 12/13/18 2115 98.5 ??F (36.9 ??C) 83 20 130/80 99 % 12/13/18 1600 98 ??F (36.7 ??C) 82 20 119/76 99 % 12/13/18 1200 97.8 ??F (36.6 ??C) 80 20 126/86 98 % 12/13/18 0800 98.2 ??F (36.8 ??C) 72 20 108/56 98 % Intake/Output Summary (Last 24 hours) at 12/14/18 0553 Last data filed at 12/14/18 0508 Gross per 24 hour Intake 1320 ml Output 1250 ml Net 70 ml Physical Exam: General: alert, cooperative, no distress Lungs: clear to auscultation bilaterally Heart: regular rate and rhythm Abdomen: gravid, nontender, no palpable contractions Extremities: normal, non-tender bilaterally Labs: Recent Labs Component Name 12/14/18 0011 12/11/18 0452 12/08/18 0549 WBC 8.2 12.6* 12.1* HGB 12.3 11.1* 11.7* HCT 36.9 33.1* 36.2 PLTCOUNT 194 184 191 Recent Labs Component Name 12/11/18 0848 12/08/18 0549 12/06/18 1253 SODIUM 135* 136 133* POTASSIUM 3.8 4.0 3.9 CHLORIDE 104 104 103 CO2 18* 20* 20* BUN 8 8 6* CREATININE 0.39* 0.43* 0.41* GLUCOSE 151* 94 107* CALCIUM 9.7 9.8 10.1 ALBUMIN 3.4* 3.3* 3.3* ALKPHOS 179* 159* 172* ALT 14 11* 12* AST 12 11 12 TBIL 0.3 0.3 0.3 TPROT 6.4 6.2* 6.4 EGFR >60 >60 >60 NST/Holcomb: See separate procedure note MEDICATIONS FOR CURRENT ENCOUNTER: ?? SCHEDULED MEDICATIONS: ?? 0.9% NaCl injection 10 mL, Intracatheter, q8h ?? acetaminophen (TYLENOL) tablet 650 mg, Oral, q6h ?? chlorhexidine (PERIDEX) 0.12 % oral solution, Swish and Spit, BID ?? diphenhydrAMINE (BENADRYL) capsule 25 mg, Oral, AT BEDTIME ?? docusate sodium (COLACE) capsule 100 mg, Oral, BID ?? insulin detemir (LEVEMIR) pen 36 Units, Subcutaneous, AT BEDTIME ?? iron polysaccharides (NIFEREX 150) capsule 150 mg, Oral, QDAY ?? vitamin with iron tablet 1 tablet, Oral, QDAY ?? triamcinolone acetonide (KENALOG) 0.1 % cream, Topical, TID ?? CONTINUOUS MEDICATIONS: ?? PRN MEDICATIONS: ?? Or ?? Or ?? benzocaine (MAXIMUM STRENGTH ORAJEL) 20 % gel, Oral, 4X/day PRN ?? juhxieuczf-sbdnvcalgcyec-rmqrrsgj (FIORICET) 50-325-40 MG tablet 1 tablet, Oral, q4h PRN ?? calcium carbonate (TUMS) chew tablet 2 tablet, Oral, q4h PRN ?? dextrose IV 12.5-25 g, Intravenous, PRN ?? glucagon (GLUCAGEN) injection 1 mg, Intramuscular, PRN ?? glucose (Diabetic Use) oral gel, Oral, PRN ?? metoclopramide (REGLAN) injection 10 mg, Intravenous, q6h PRN ?? ondansetron (ZOFRAN) injection 4 mg, Intravenous, q6h PRN ?? polyethylene glycol 3350 (MIRALAX) packet 17 g, Oral, QDAY PRN ?? prochlorperazine (COMPAZINE) suppository 25 mg, Rectal, q12h PRN ?? simethicone (MYLICON) chew tablet 160 mg, Oral, 4X/day - PC & NIGHTLY PRN Assessment/Plan: 23 year old at , with Posterior placenta previa with low lying chorionic vessel 1. Admitted 11/25 with third episode of bleeding 2. Bilobed placenta with anterior and posterior discs as well as an accessory left lateral placental lobe. Chronic vessel within 2cm of internal cervical os 3. T&S: B+, Ab negative (updated 12/11) 4. TVUS every Wednesday (last done 12/07/18), TVUS ordered for today 5. ANCS 09/25-, rANCS 11/25- 6. S/p NICU consult 7. Plan: CS at 36 weeks unless preeclampsia becomes severe features (already scheduled 12/21) ?? GDM 1. GCT 147 2. GTT 97/167/121/138 3. US 11/24: EFW 2214g (81%), AC >99% 4. 8/6 sugars: 84/143/136/100/108 5. 8/7 fastin 6. Cont levemir 36 QHS ?? Suspect PreE without severe features 1. 24 hour BP ranges: normotensive 1. One severe range blood pressure to 160/103 on 12/07/18 at 1610 2. asymptomatic 3. 8/1 P:C ratio from straight cath 1.18 (of note did have RBCs) 4. Recent CBC and CMP wnl ?? H/O LTCS 1. G1 in 2013 at 34 weeks due to PreE and breech presentation ?? Concern for Dental Caries (3rd tooth from right side of inferior jaw is painful to touch) 1. Painful, diagnosed outpatient 2. S/p amoxicillin x 10 days 3. Prescribed swish and swallow solution 4. Follow up outpatient ?? Tobacco Use 1. Encourage cessation 2. Nicotine patch inpatient PRN ?? New Onset Rash 1. TPA neg 10/27/18 2. Has topical steroid cream for relief ?? Dispo: continue inpatient management Vijaya Ashton MD 12/14/2018 5:53 AM Associated attestation - Gely Medina MD - 12/14/2018 12:39 PM CDT M STAFF ? I have reviewed Cait Mathews??who is a 23 year old?? with a hernadez gestation at 35w0d??with the OB resident team. ??We have discussed her recent clinical course. Cait is here with a posterior previa with a succenturiate lobe with a vessel passing within ~2 cm of the internal os. She also has preeclampsia without severe features and GDM. I have evaluated and counseled her. Aside from the persistent occasionally pruritic rash on her hands and abdomen, she has no complaints and specifically denies recurrent bleeding and contractions. She describes normal movement. ? Exam: BP 129/89 Pulse 75 Temp 98.2 ??F (36.8 ??C) Resp 18 Ht 5' (1.524 m) Wt 207 lb 3.2 oz (94 kg) SpO2 96% BMI 40.47 kg/m2 BPmax 130/80 Gen - comfortable, alert, cooperative Abd - soft, gravid, nontender Ext - no calf tenderness ? FHT - please see separate procedure note ? Ultrasounds: Today: cephalic / EFW 2962 g (87th %ile), AC >99th %ile / KOREY 12.5 cm / TVCL 3.6 cm 12/07: CL 3.8 cm / posterior previa with anterior succenturiate lobe and chorionic vessel ~17 mm from the internal os 11/24: EFW 2214 g (81st %ile), AC >99th %ile Please see separate imaging reports for details. ? Recent Labs Component Name ??12/11/18 ??0452 ??12/08/18 ??0549 ??12/06/18 ??1253 WBC ??12.6* ??12.1* ??13.3* HGB ??11.1* ??11.7* ??12.1 HCT ??33.1* ??36.2 ??36.4 PLTCOUNT ??184 ??191 ??208 ? Recent Labs Component Name ??12/11/18 ??0848 ??12/08/18 ??0549 ??12/06/18 ??1253 SODIUM ??135* ??136 ??133* POTASSIUM ??3.8 ??4.0 ??3.9 CHLORIDE ??104 ??104 ??103 CO2 ??18* ??20* ??20* BUN ??8 ??8 ??6* CREATININE ??0.39* ??0.43* ??0.41* GLUCOSE ??151* ??94 ??107* CALCIUM ??9.7 ??9.8 ??10.1 ALBUMIN ??3.4* ??3.3* ??3.3* ALKPHOS ??179* ??159* ??172* ALT ??14 ??11* ??12* AST ??12 ??11 ??12 TBIL ??0.3 ??0.3 ??0.3 TPROT ??6.4 ??6.2* ??6.4 EGFR ??>60 ??>60 ??>60 ? Glucose Bedside (mg/dL) 12/14/18 1218 176 mg/dL 12/14/18 0500 75 mg/dL 12/13/18 2115 108 mg/dL 12/13/18 1925 100 mg/dL 12/13/18 1523 136 mg/dL 12/13/18 0959 143 mg/dL 12/13/18 0654 84 mg/dL 12/12/18 2107 96 mg/dL 12/12/18 1803 132 mg/dL 12/12/18 1257 138 mg/dL 12/12/18 0632 87 mg/dL ?? I have the following additions/revision to the plan: ? Continue Levemir at HS and start AC breakfast Novolog. Continue treatment of suspected contact dermatitis with triamcinolone cream ?? Otherwise, continue and close inpatient monitoring secondary to previa with recurrent vaginal bleeding. If stable in the interim, the plan is for delivery around 36 weeks ? Gely Medina MD, MPH * Rupa Hope, [employer]ILER INSPECTOR - 12/13/2018 5:23 PM CDT Problem: Bleeding Precautions Goal: Excessive bleeding will be minimized Outcome: Ongoing Daily efm Saline lock maintained 2 rounds of beta given Daily wt. 205lbs. Pt. Cont. To have a small amt. Of brown vaginal leakage. * Rupa Hope LPN - 12/13/2018 4:43 PM CDT Resting in bed and up amb. In her room, pt. Also leaves the floor frequently, pushing a w/c and goes to get food at the cafe. Pt. Tolerating po fluids and what ever kind of food she eats. Intake and output maintained, pt. Voiding clear dark shonda urine. Encouraging po fluids. Saline lock maintained. Day efm completed. Pt. States positive movement, denies contractions, and cont. To have a small amt. Of brown vaginal drainage when she wipes. Fob at the bedside sleeping. See vs flowsheet forvs and accu check results. Pt. Denies any distress or concerns. Gait slow and steady. * Essence Landry RN - 12/13/2018 11:17 AM CDT Interventions physician notified, repos patient to right side, and extended monitoring. * Perla Jansen MD - 12/13/2018 5:27 AM CDT PGY2 Antepartum Progress Note Date: 12/13/2018 Hospital Day: 18 Subjective: Denies headache, vision changes, chest pain, shortness of breath, RUQ pain, LOF, red vaginal bleeding, contractions. Continues to have same brown discharge. movement present. Objective: Patient Vitals for the past 24 hrs: Temp Pulse Resp BP SpO2 12/12/18 2349 97.7 ??F (36.5 ??C) 75 16 121/83 99 % 08/05/19 1600 97.8 ??F (36.6 ??C) 88 20 128/88 100 % 12/12/18 1200 - 96 16 137/89 98 % 12/12/18 0800 97.7 ??F (36.5 ??C) 82 16 118/70 98 % Intake/Output Summary (Last 24 hours) at 12/13/18 0527 Last data filed at 12/12/18 1700 Gross per 24 hour Intake: 840 ml Output: 650 ml Net : 190 ml Physical Exam: General: alert, cooperative, no distress Lungs: breathing comfortably on room air Abdomen: gravid, nontender, no palpable contractions Lower extremities: Extremities: no edema, non-tender bilaterally Labs: Recent Labs Component Name 12/11/18 0848 12/08/18 0549 12/06/18 1253 SODIUM 135* 136 133* POTASSIUM 3.8 4.0 3.9 CHLORIDE 104 104 103 CO2 18* 20* 20* BUN 8 8 6* CREATININE 0.39* 0.43* 0.41* GLUCOSE 151* 94 107* CALCIUM 9.7 9.8 10.1 ALBUMIN 3.4* 3.3* 3.3* ALKPHOS 179* 159* 172* ALT 14 11* 12* AST 12 11 12 TBIL 0.3 0.3 0.3 TPROT 6.4 6.2* 6.4 EGFR >60 >60 >60 Patient Vitals for the past 30 hrs: Glucose Bedside (mg/dL) 12/12/18 2107 random 96 mg/dL 12/12/18 1803 1 hr pp dinner 132 mg/dL 12/12/18 1257 1 hr pp breakfast 138 mg/dL 12/12/18 0632 fbs 87 mg/dL NST/Holcomb: See separate procedure note MEDICATIONS FOR CURRENT ENCOUNTER: SCHEDULED MEDICATIONS: 0.9% NaCl injection 10 mL, Intracatheter, q8h acetaminophen (TYLENOL) tablet 650 mg, Oral, q6h chlorhexidine (PERIDEX) 0.12 % oral solution, Swish and Spit, BID diphenhydrAMINE (BENADRYL) capsule 25 mg, Oral, AT BEDTIME docusate sodium (COLACE) capsule 100 mg, Oral, BID insulin detemir (LEVEMIR) pen 36 Units, Subcutaneous, AT BEDTIME iron polysaccharides (NIFEREX 150) capsule 150 mg, Oral, QDAY ?? vitamin with iron tablet 1 tablet, Oral, QDAY ?? CONTINUOUS MEDICATIONS: PRN MEDICATIONS: Or Or benzocaine (MAXIMUM STRENGTH ORAJEL) 20 % gel, Oral, 4X/day PRN tjkqrrtghd-mbcdoikfvrnqt-tkvqdlnj (FIORICET) 50-325-40 MG tablet 1 tablet, Oral, q4h PRN calcium carbonate (TUMS) chew tablet 2 tablet, Oral, q4h PRN hydrocortisone (HYTONE) 1 % ointment, Topical, 4X/day PRN metoclopramide (REGLAN) injection 10 mg, Intravenous, q6h PRN ondansetron (ZOFRAN) injection 4 mg, Intravenous, q6h PRN polyethylene glycol 3350 (MIRALAX) packet 17 g, Oral, QDAY PRN prochlorperazine (COMPAZINE) suppository 25 mg, Rectal, q12h PRN ?? simethicone (MYLICON) chew tablet 160 mg, Oral, 4X/day - PC & NIGHTLY PRN Assessment/Plan: 23 year old at 34w6d, with Posterior placenta previa with low lying chorionic vessel 1. Admitted 11/25 with third episode of bleeding 2. Bilobed placenta with anterior and posterior discs as well as an accessory left lateral placental lobe. Chronic vessel within 2cm of internal cervical os 3. T&S: B+, Ab negative (updated 12/11) 4. TVUS every Wednesday (last done 12/07/18) 5. ANCS 09/25-, rANCS 11/25- 6. S/p NICU consult 7. Plan: CS at 36 weeks unless preeclampsia becomes severe features (already scheduled 12/21) GDM 1. GCT 147 2. GTT 97/167/121/138 3. US 11/24: EFW 2214g (81%), AC >99% 4. Blood sugars as above 5. Cont levemir 36 QHS Suspect PreE without severe features 1. 24 hour BP ranges: normotensive 1. One severe range blood pressure to 160/103 on 12/07/18 at 1610 2. asymptomatic 3. 8/1 P:C ratio from straight cath 1.18 (of note did have RBCs) 4. CBC and CMP labs every Wednesday H/O LTCS 1. G1 in 2013 at 34 weeks due to PreE and breech presentation Concern for Dental Caries (3rd tooth from right side of inferior jaw is painful to touch) 1. Painful, diagnosed outpatient 2. S/p amoxicillin x 10 days 3. Prescribed swish and swallow solution 4. Follow up outpatient Tobacco Use 1. Encourage cessation 2. Nicotine patch inpatient PRN New Onset Rash 1. TPA neg 10/27/18 2. Has topical steroid cream for relief Dispo: continue inpatient management, monitoring for bleeding and elevated blood pressures Perla Jansen MD 12/13/2018 5:27 AM Associated attestation - Gely Medina MD - 12/13/2018 2:20 PM CDT M STAFF ?? I have reviewed Cait Mathews who is a 23 year old with a hernadez gestation at 34w6d with the OB resident team. We have discussed her recent clinical course. Cait is here with a posterior previa with a succenturiate lobe with a vessel passing within ~2 cm of the internal os. She also has preeclampsia without severe features and GDM. I have evaluated and counseled her. Her only complaint is of a pruritic rash on both hands and a couple of areas on her abdomen that has not responded to hydrocortisone 1% ointment. She has no other complaints and specifically denies recurrent bleeding and contractions. She describes normal movement. ?? Exam: BP 121/83 Pulse 75 Temp 97.7 ??F (36.5 ??C) Resp 16 Ht 5' (1.524 m) Wt 205 lb (93 kg) SpO2 99% BMI 40.04 kg/m2 BPmax 137/89 Gen - comfortable, alert, cooperative Abd - soft, gravid, nontender Ext - no calf tenderness ?? FHT - please see separate procedure note ?? Ultrasounds: 12/07: CL 3.8 cm / posterior previa with anterior succenturiate lobe and chorionic vessel ~17 mm from the internal os 11/24: EFW 2214 g (81st %ile), AC >99th %ile Please see separate imaging reports for details. Recent Labs Component Name 12/11/18 0452 12/08/18 0549 12/06/18 1253 WBC 12.6* 12.1* 13.3* HGB 11.1* 11.7* 12.1 HCT 33.1* 36.2 36.4 PLTCOUNT 184 191 208 ?? Recent Labs Component Name 12/11/18 0848 12/08/18 0549 12/06/18 1253 SODIUM 135* 136 133* POTASSIUM 3.8 4.0 3.9 CHLORIDE 104 104 103 CO2 18* 20* 20* BUN 8 8 6* CREATININE 0.39* 0.43* 0.41* GLUCOSE 151* 94 107* CALCIUM 9.7 9.8 10.1 ALBUMIN 3.4* 3.3* 3.3* ALKPHOS 179* 159* 172* ALT 14 11* 12* AST 12 11 12 TBIL 0.3 0.3 0.3 TPROT 6.4 6.2* 6.4 EGFR >60 >60 >60 ?? Glucose Bedside (mg/dL) 12/13/18 0959 143 mg/dL 12/13/18 0654 84 mg/dL 12/12/18 2107 96 mg/dL 12/12/18 1803 132 mg/dL 12/12/18 1257 138 mg/dL 12/12/18 0632 87 mg/dL I have the following additions/revision to the plan: ?? Continue Levemir at HS and glucose monitoring. If postprandial breakfast values remain mildly elevated, an AC Novolog dose will be ordered. Discontinue hydrocortisone ointment and treat suspected contact dermatitis with a higher potency topical steroid. Otherwise, continue and close inpatient monitoring secondary to previa with recurrent vaginal bleeding. If stable in the interim, the plan is for delivery around 36 weeks ?? Gely Medina MD, MPH * Daylin Neves RN - 12/13/2018 5:21 AM CDT Cait is resting bed, vs stable, afebrile. She reports movement and scant brown discharge when wiping. Denies LOF, cramping/contractions, back ache or pelvic pressure. IV in place and flusheswell. FOB at bedside for support. She gets up to the restroom independently with a steady gait. Call light and phone within reach. Educated to call with concerns. No needs at this time, will continueto monitor. * Daylin Neves RN - 12/13/2018 12:38 AM CDT Problem: Bleeding Precautions Goal: Excessive bleeding will be minimized Outcome: Ongoing Cait c/o brown discharge only when she wipes. No new blood or red blood. Will continue to monitor. * Rupa Hope LPN - 12/12/2018 6:29 PM CDT Problem: Alteration of Metabolism of Carb/Prot/Fat/Lytes Alteration in metabolism of carbohydrates, proteins, fats, and electrolytes related to diabetes andpregnancy. Goal: Blood Glucose Levels Remain WDL for this Patient. Blood glucose levels remain within defined limits for this individual. Outcome: Ongoing Saline lock maintained Diabetic diet ordered, pt. Goes to the cafe to get her food each meal, reg. Food Fbs, 1 hour pp all meals and hs accu checks * Rupa Hope LPN - 12/12/2018 5:36 PM CDT Resting in bed and up to the bathroom, gait steady. Pt. Sleeps till early afternoon. Pt. Toleratingpo fluids, pt. Had cafe food for breakfast, not diabetic food, then the pt. Got diabetic tray for lunch then left the floor and got different food from the cafe. See vs flowsheet for vs and accu check results. Saline lock maintained. Daily efm completed. Pt. States positive movement, denies contractions and cont. To have scant brown drainage when she wipes after voiding. Fob at the bedside.Pt. Does leave the floor pushing a w/c when she wants too. Pt. Denies any distress or concerns.willcont. To monitor pt. * Sari Reyes, JULIENNE/MADALYN - 12/12/2018 3:38 PM CDT Problem: Biochemical: Altered nutrition-related laboratory values Goal: Biochemical: Other (Comments) Elevated fasting BG at GTT Goal of FBS <90mg/dl and 1 hr PP ,130 mg/ dl Outcome: Ongoing Nutrition Goal Progress: Progressing toward goal;Continue with current goal Comments: CLINICAL NUTRITION REASSESSMENT Assessment: Pt was seen for follow-up. Intake is good. Pt reports she is doing well ordering her meals and denies questions regarding her diet. Afternoon snack was changed per her request. Wt is stable with weight from 11/25. Fair BG control - insulin noted. Noted painful tooth per record. Pt reports the pain has improved and it is not affecting her po intake. Discussed ways to modify foods available as needed. Med/Surg History and Clinical Diagnoses: 32w5d complete previa with vaginal bleeding h/o C/s Current diet order: Consistent Carb Standard Food Allergies: No known food allergies P.O intake for past 48 hrs: % Meal Taken Av % Min: 100 % Max: 100 % % Oral Supplement Intake:No Data Recorded Pain affecting intake: No Patient Vitals for the past 336 hrs: Weight 12/09/18 2355 202 lb (91.6 kg) No new Weight/Weight change: stable New Meds: Peridex, Orajel, Reglan, Levemir LABS: Recent Labs Component Name 12/11/18 0848 SODIUM 135* POTASSIUM 3.8 CHLORIDE 104 CO2 18* BUN 8 CREATININE 0.39* GLUCOSE 151* CALCIUM 9.7 ALBUMIN 3.4* ALKPHOS 179* ALT 14 AST 12 TBIL 0.3 TPROT 6.4 EGFR >60 Patient Vitals for the past 30 hrs: Glucose Bedside (mg/dL) 12/12/18 1257 138 mg/dL 12/12/18 0632 87 mg/dL 12/11/18 2122 120 mg/dL 12/11/18 1842 134 mg/dL 12/11/18 1330 91 mg/dL Skin/Wound: WDL Last BM: 12/10 Nutrition Care Process (1) Nutrition Diagnostic Statement: Altered nutrition-related lab values related to:: --- () as evidenced by:: elevated laboratory values Nutrition Diagnostic Statement Progress: Nutrition problem continues Nutrition Intervention: Meals and snacks:;Nutrition Education - Content Education needed: Consistent Carb Education provided Pt educated on previous visit Expected level of compliance: Fair Following pt at high nutritional risk. Nutrition recommendation: agree with current nutrition order ?? Continue diet and snacks as ordered. Monitoring: Po intake of meals and snacks, wt changes, labs, skin integrity, BM Evaluation: Nutrition Goal: Biochemical data will be improved/normalized Nutrition Goal Timeframe: Throughout stay Sari Reyes, JULIENNE/MADALYN, DTR 12/12/2018 3:47 PM Ascom [id number] * Rupa Hope LPN - 12/12/2018 12:00 PM CDT 1200 pt. Woke up at 1100 and amb. Down stairs to get her breakfast, pt. Came back with food not on a diabetic diet. Pt. Completed her 1st meal at 1200. * Kelley Rocha MD - 12/12/2018 6:30 AM CDT Delayed entry due to patient care Called to room to evaluate patient around 1230 for complaints of chest pain and tachycardia. Per nursing report, patient having intermittent chest pain throughout the day. EKG obtained Wednesday that showed sinus tachycardia. Upon evaluation,she denies chest pain at the time. She reports when it does hurt, that it is a sharp pain in the center of her chest. She denies shortness of breath, palpitations, or chills at this time. VSS, afebrile. Heart: RRR, no murmurs Lungs: CTA bilaterally, no increased breath sounds or wheezing. Plan if chest pain continues: - repeat CBC, CMP - GI cocktail - CXR Kelley Rocha MD 6:37 AM * Amberly Crandall RN - 12/12/2018 5:11 AM CDT Shift summary: Cait Mathews resting in bed, reports +FM, denies cramping, backaches, visual changes, and epigastric pain. BARRERA relieved with Tylenol and rest. BPs 120s-140s/80s, Continues to have red rash on hands and abdomen, pt reports no itchiness or discomfort. Pt reports intermittently having chest pain and chills, MD made aware. Reports occasional contractions and scant brown discharge. Phone and call light within reach. Will continue to monitor. * Perla Jansen MD - 12/12/2018 4:47 AM CDT PGY2 Antepartum Progress Note Date: 12/12/2018 Hospital Day: 17 Subjective: Denies current headache, chest pain, shortness of breath, scotomas, photopsia, blurry vision, RUQ pain, LOF, bright red vaginal bleeding,contractions. She reports the same brown discharge. + moement. Objective: Patient Vitals for the past 24 hrs: Temp Pulse Resp BP SpO2 12/12/18 0445 98 ??F (36.7 ??C) 101 18 139/96 98 % 12/12/18 0140 98.3 ??F (36.8 ??C) 96 18 126/68 97 % 12/11/18 2122 98.9 ??F (37.2 ??C) 103 18 143/94 100 % 12/11/18 1945 98.6 ??F (37 ??C) 107 18 136/88 98 % 12/11/18 1655 - 107 18 118/77 - 12/11/18 1330 98.2 ??F (36.8 ??C) (!) 117 18 136/89 100 % 12/11/18 1105 - 99 18 141/90 100 % 12/11/18 0825 - (!) 110 - - - 12/11/18 0820 98.1 ??F (36.7 ??C) 103 18 150/90 99 % Intake/Output Summary (Last 24 hours) at 12/12/18 0447 Last data filed at 12/12/18 0140 Gross per 24 hour Intake: 50 ml Output: 1250 ml Net : -1200 ml UOP: 2.18mL/kg/hr Physical Exam: General: alert, cooperative, no distress Lungs: breathing comfortably on room air Abdomen: gravid, nontender, no palpable contractions Lower extremities: Extremities: no edema, non-tender bilaterally Skin: red papular rash on right ulnar hand surface, left hand and fingers, above umbilicus Labs: Recent Labs Component Name 12/11/18 0848 12/08/18 0549 12/06/18 1253 SODIUM 135* 136 133* POTASSIUM 3.8 4.0 3.9 CHLORIDE 104 104 103 CO2 18* 20* 20* BUN 8 8 6* CREATININE 0.39* 0.43* 0.41* GLUCOSE 151* 94 107* CALCIUM 9.7 9.8 10.1 ALBUMIN 3.4* 3.3* 3.3* ALKPHOS 179* 159* 172* ALT 14 11* 12* AST 12 11 12 TBIL 0.3 0.3 0.3 TPROT 6.4 6.2* 6.4 EGFR >60 >60 >60 Patient Vitals for the past 30 hrs: Glucose Bedside (mg/dL) 12/11/18 2122 HS 120 mg/dL 12/11/18 1842 1 hr pp dinner 134 mg/dL 12/11/18 1330 Spot check pt didn't order lunch 91 mg/dL 12/11/18 0820 Pt feels shaking and nauseous 117 mg/dL 12/11/18 0616 fbs 103 mg/dL NST/Holcomb: See separate procedure note MEDICATIONS FOR CURRENT ENCOUNTER: SCHEDULED MEDICATIONS: 0.9% NaCl injection 10 mL, Intracatheter, q8h acetaminophen (TYLENOL) tablet 650 mg, Oral, q6h chlorhexidine (PERIDEX) 0.12 % oral solution, Swish and Spit, BID diphenhydrAMINE (BENADRYL) capsule 25 mg, Oral, AT BEDTIME docusate sodium (COLACE) capsule 100 mg, Oral, BID insulin detemir (LEVEMIR) pen 36 Units, Subcutaneous, AT BEDTIME iron polysaccharides (NIFEREX 150) capsule 150 mg, Oral, QDAY vitamin with iron tablet 1 tablet, Oral, QDAY [] diphenhydrAMINE (BENADRYL) injection 25 mg, Intravenous, Once ?? [] metoclopramide (REGLAN) injection 10 mg, Intravenous, Once ?? CONTINUOUS MEDICATIONS: PRN MEDICATIONS: Or Or benzocaine (MAXIMUM STRENGTH ORAJEL) 20 % gel, Oral, 4X/day PRN mqhuavkozi-mawdxysxtbzku-nboffqtu (FIORICET) 50-325-40 MG tablet 1 tablet, Oral, q4h PRN calcium carbonate (TUMS) chew tablet 2 tablet, Oral, q4h PRN hydrocortisone (HYTONE) 1 % ointment, Topical, 4X/day PRN metoclopramide (REGLAN) injection 10 mg, Intravenous, q6h PRN ondansetron (ZOFRAN) injection 4 mg, Intravenous, q6h PRN polyethylene glycol 3350 (MIRALAX) packet 17 g, Oral, QDAY PRN prochlorperazine (COMPAZINE) suppository 25 mg, Rectal, q12h PRN ?? simethicone (MYLICON) chew tablet 160 mg, Oral, 4X/day - PC & NIGHTLY PRN Assessment/Plan: 23 year old at 34w5d, with Posterior placenta previa with low lying chorionic vessel 1. Admitted 11/25 with third episode of bleeding 2. Bilobed placenta with anterior and posterior discs as well as an accessory left lateral placental lobe. Chronic vessel within 2cm of internal cervical os 3. T&S: B+, Ab negative (updated 12/11) 4. TVUS every Wednesday (last done 12/07/18) 5. ANCS 09/25-, rANCS 11/25- 6. S/p NICU consult 7. Plan: CS at 36 weeks unless preeclampsia becomes severe features (already scheduled 12/21) GDM 1. GCT 147 2. GTT 97/167/121/138 3. US 11/24: EFW 2214g (81%), AC >99% 4. Blood sugars as above, patient did not eat lunch, 1 hr pp dinner slightly elevated 5. Cont levemir 36 QHS Suspect PreE without severe features 1. 24 hour BP ranges: normotensive to mild range 1. One severe range blood pressure, in last few days, did not require treatment 2. asymptomatic 3. 8/1 P:C ratio from straight cath 1.18 (of note did have RBCs) 4. CBC and CMP labs every Wednesday H/O LTCS 1. G1 in 2013 at 34 weeks due to PreE and breech presentation Concern for Dental Caries (3rd tooth from right side of inferior jaw is painful to touch) 1. Painful, diagnosed outpatient 2. S/p amoxicillin x 10 days 3. Prescribed swish and swallow solution 4. Follow up outpatient Tobacco Use 1. Encourage cessation 2. Nicotine patch inpatient PRN New Onset Rash 1. TPA neg 10/27/18 2. Has topical steroid cream for relief Dispo: continue inpatient management, monitoring for bleeding and elevated blood pressures Perla Jansen MD 12/12/2018 4:47 AM Associated attestation - Gely Medina MD - 12/12/2018 1:52 PM CDT [facility] ST[facility] I have reviewed Cait Mathews who is a 23 year old with a hernadez gestation at 34w5d with the OB resident team. We have discussed her past history and reviewed all pertinent records andrecent clinical course. Cait is here with a posterior previa with a succenturiate lobe with a vessel passing within ~2 cm of the internal os. She also has preeclampsia without severe features and GDM. I have evaluated and counseled her. She has no complaints and specifically denies recurrent bleeding and contractions. She describes normal movement. Exam: BP 118/70 Pulse 82 Temp 97.7 ??F (36.5 ??C) Resp 16 Ht 5' (1.524 m) Wt 202 lb (91.6 kg) SpO2 98% BMI 39.45 kg/m2 BPmax 143/94 Gen - comfortable, alert, cooperative Abd - soft, gravid, nontender Ext - no calf tenderness FHT - please see separate procedure note Ultrasounds: 12/07: CL 3.8 cm / posterior previa with anterior succenturiate lobe and chorionic vessel ~17 mm from the internal os 11/24: EFW 2214 g (81st %ile), AC >99th %ile Please see separate imaging reports for details. Recent Labs Component Name 12/11/18 0452 12/08/18 0549 12/06/18 1253 WBC 12.6* 12.1* 13.3* HGB 11.1* 11.7* 12.1 HCT 33.1* 36.2 36.4 PLTCOUNT 184 191 208 Recent Labs Component Name 12/11/18 0848 12/08/18 0549 12/06/18 1253 SODIUM 135* 136 133* POTASSIUM 3.8 4.0 3.9 CHLORIDE 104 104 103 CO2 18* 20* 20* BUN 8 8 6* CREATININE 0.39* 0.43* 0.41* GLUCOSE 151* 94 107* CALCIUM 9.7 9.8 10.1 ALBUMIN 3.4* 3.3* 3.3* ALKPHOS 179* 159* 172* ALT 14 11* 12* AST 12 11 12 TBIL 0.3 0.3 0.3 TPROT 6.4 6.2* 6.4 EGFR >60 >60 >60 Glucose Bedside (mg/dL) 12/12/18 0632 87 mg/dL 12/11/18 2122 120 mg/dL 12/11/18 1842 134 mg/dL 12/11/18 1330 91 mg/dL 12/11/18 0820 117 mg/dL 12/11/18 0616 103 mg/dL I have the following additions/revision to the plan: Continue Levemir at HS, glucose monitoring, and close inpatient monitoring secondary to previa withrecurrent vaginal bleeding. If stable in the interim, the plan is for delivery around 36 weeks Gely Medina MD, MPH * Amberly Crandall, RN - 12/12/2018 12:31 AM CDT 12/12/18 0031 Clinician Communication/Critical Test Notification Reason: Condition Update Name of Clinician Notified: Dr. Rocha Role: OB Resident Notification Method: In Person Action Orders Received MD made this RN aware that she visited Cait Mathews, and that she is stable, and denies havingchest pain at this time. Orders to notify MD if chest pain returns, and order for possible GI cocktail if needed. Will continue to monitor pt. * Amberly Crandall, RN - 12/11/2018 11:24 PM CDT Problem: Bleeding Precautions Goal: Excessive bleeding will be minimized Outcome: Ongoing Cait Mathews reports scant amount of brown discharge. Reports no anthony pad needed. Problem: Pain Related to Uterine Contractions Alteration in comfort. Goal: Decreased Uterine Activity Outcome: Ongoing Cait Mathews reports occasional contractions. Problem: Alteration of Metabolism of Carb/Prot/Fat/Lytes Alteration in metabolism of carbohydrates, proteins, fats, and electrolytes related to diabetes andpregnancy. Goal: Blood Glucose Levels Remain WDL for this Patient. Blood glucose levels remain within defined limits for this individual. Outcome: Ongoing Cait Mathews HS blood sugar 120. * Amberly Crandall RN - 12/11/2018 9:50 PM CDT 12/11/18 2150 Clinician Communication/Critical Test Notification Reason: Condition Update Name of Clinician Notified: Dr. Rocha Role: OB Resident Notification Method: Called/Phoned Action Orders Received Comments: Chest pain, chills MD made aware Cait Mathews continues to have symptoms of intermittent chest pain and chills asshe did earlier today. She said her symptoms are usually relieved with rest. MD will visit pt. * Marci Mejia RN - 12/11/2018 4:06 PM CDT 12/11/18 1320 Clinician Communication/Critical Test Notification Reason: Condition Update Name of Clinician Notified: Dr. Sanchez Role: OB Resident Notification Method: Called/Phoned (pt still feels nauseous, shaky, weak, and has BARRERA now) Action Orders Received (dr to room to assess and ordered reglan/benedryl, ekg) Pt called nurse to room at 1318. Pt just woke up from her nap and reports she still feels the same as this morning. She reports headache, chills and sweats, weakness, and the shakes. Vitals taken. Baby placed on EFM. Pt ht 115. HRT 170's. Dr Sanchez notified. Dr to room to assess pt. * Mallory Brower MD - 12/11/2018 9:24 AM CDT PGY2 Antepartum Progress Note Date: 12/11/2018 Hospital Day: 16 Subjective: Cait Mathews is a 23 year old at 34w4d weeks gestation. There were no acute overnight events. She denies headache, SOB, chest pain, RUQ pain and increased swelling. She denies vaginal bleeding, loss of fluid, and contractions. She reports normal movement. RUQ pain ovn, resolved this AM. No complaints Objective: Patient Vitals/O2 Sat/CVP in the past 24 hrs: 12/11/18 0825, Pulse:(!) 110 12/11/18 0820, Temp:98.1 ??F (36.7 ??C), Pulse:103, Resp:18, BP:150/90, SpO2:99 % 12/11/18 0430, Temp:97.6 ??F (36.4 ??C), Pulse:92, Resp:18, BP:143/84, SpO2:98 % 12/10/18 2101, Temp:97.7 ??F (36.5 ??C), Pulse:78, Resp:18, BP:126/80, SpO2:98 % 12/10/18 1600, Temp:98.1 ??F (36.7 ??C), Pulse:74, Resp:18, BP:151/84, SpO2:100 % Intake/Output Summary (Last 24 hours) at 12/11/18 0925 Last data filed at 12/11/18 0823 Gross per 24 hour Intake: 0 ml Output: 1400 ml Net : -1400 ml Physical Exam: General: alert, cooperative, no distress Lungs: clear to auscultation bilaterally Heart: regular rate and rhythm Abdomen: gravid, nontender, no palpable contractions Extremities: normal, non-tender bilaterally Labs: Recent Labs Component Name 12/08/18 0549 12/06/18 1253 11/28/18 0334 SODIUM 136 133* 137 POTASSIUM 4.0 3.9 3.9 CHLORIDE 104 103 107 CO2 20* 20* 21* BUN 8 6* 7 CREATININE 0.43* 0.41* 0.37* GLUCOSE 94 107* 104 CALCIUM 9.8 10.1 9.0 ALBUMIN 3.3* 3.3* 3.3* ALKPHOS 159* 172* 156* ALT 11* 12* 11* AST 11 12 10 TBIL 0.3 0.3 0.2 TPROT 6.2* 6.4 6.0* EGFR >60 >60 >60 NST/Holcomb: See separate procedure note MEDICATIONS FOR CURRENT ENCOUNTER: SCHEDULED MEDICATIONS: 0.9% NaCl injection 10 mL, Intracatheter, q8h acetaminophen (TYLENOL) tablet 650 mg, Oral, q6h chlorhexidine (PERIDEX) 0.12 % oral solution, Swish and Spit, BID diphenhydrAMINE (BENADRYL) capsule 25 mg, Oral, AT BEDTIME docusate sodium (COLACE) capsule 100 mg, Oral, BID insulin detemir (LEVEMIR) pen 32 Units, Subcutaneous, AT BEDTIME iron polysaccharides (NIFEREX 150) capsule 150 mg, Oral, QDAY ?? vitamin with iron tablet 1 tablet, Oral, QDAY ?? CONTINUOUS MEDICATIONS: PRN MEDICATIONS: Or Or benzocaine (MAXIMUM STRENGTH ORAJEL) 20 % gel, Oral, 4X/day PRN pofaueqaus-yogbsrsplayvl-cssfmqhh (FIORICET) 50-325-40 MG tablet 1 tablet, Oral, q4h PRN calcium carbonate (TUMS) chew tablet 2 tablet, Oral, q4h PRN hydrocortisone (HYTONE) 1 % ointment, Topical, 4X/day PRN metoclopramide (REGLAN) injection 10 mg, Intravenous, q6h PRN ondansetron (ZOFRAN) injection 4 mg, Intravenous, q6h PRN polyethylene glycol 3350 (MIRALAX) packet 17 g, Oral, QDAY PRN prochlorperazine (COMPAZINE) suppository 25 mg, Rectal, q12h PRN ?? simethicone (MYLICON) chew tablet 160 mg, Oral, 4X/day - PC & NIGHTLY PRN Assessment/Plan: 23 year old at 34w4d, with posterior placenta previa with low lying chorionic vessel 1. Admitted 11/25 with third episode of bleeding 2. Bilobed placenta with anterior and posterior discs as well as an accessory left lateral placental lobe. Chronic vessel within 2cm of internal cervical os 3. T&S: B+, Ab negative (updated 12/08) 4. Hgb 12/08: 11.7 5. ANCS 09/25-20, rANCS 11/25- 6. S/p NICU consult GDM 1. GCT 147 2. GTT 97/167/121/138 3. US 11/24: EFW 2214g (81%), AC >99% 4. On levemir 32u qHS > consider increase 36 QHS 5. 8/2 sugars: 94, 117, 118, 147 6. 8/3 fastin PreE without severe features 1. 24 hour BP ranges: 16-151/80-90 1. One severe range blood pressure, in last few days, did not require treatment 2. 12/08 P:C ratio from straight cath 1.18 3. CBC and CMP labs wnl 4. Continue to monitor BPs today H/O LTCS 1. G1 in 2013 at 34 weeks due to PreE and breech presentation Concern for Dental Caries/Infection 1. Painful, diagnosed outpatient 2. Completed augmentin x6 days 3. Prescribed swish and swallow solution 4. Follow up outpatient 1. Tobacco Use 1. Encouraged cessation 2. Nicotine patch inpatient PRN Dispo: continue inpatient management, monitoring for bleeding and elevated blood pressures Essence Faria MD 12/11/2018 9:25 AM Attending Physician Supervisory Note I personally interviewed and examined the patient and agree with the doctor above. Addendum: reports chills, sweatiness, worsening rash on hands and abdomen with mild pruritis, headache--which is decreasing with tylenol. Just did not feel right today. Recent Labs Component Name 12/11/18 0452 12/08/18 0549 12/06/18 1253 WBC 12.6* 12.1* 13.3* RBC 3.60* 3.98 4.02 HGB 11.1* 11.7* 12.1 HCT 33.1* 36.2 36.4 MCV 91.9 91.0 90.5 MCHC 33.5 32.3 33.2 PLTCOUNT 184 191 208 NEUTPCT 80.3* 73.5* 79.0* LYMPHPCT 11.6* 17.0* 13.5* BASOPHILPCT 0.2 0.4 0.2 GRANSIMMPCT 1.5* 1.9* 1.7* NEUTABS 10.08* 8.92* 10.50* LYMPHABS 1.46 2.06 1.79 BASOABS 0.03 0.05 0.03 Recent Labs Component Name 12/11/18 0848 12/08/18 0549 12/06/18 1253 SODIUM 135* 136 133* POTASSIUM 3.8 4.0 3.9 CHLORIDE 104 104 103 CO2 18* 20* 20* BUN 8 8 6* CREATININE 0.39* 0.43* 0.41* GLUCOSE 151* 94 107* CALCIUM 9.7 9.8 10.1 ALT 14 11* 12* ALKPHOS 179* 159* 172* AST 12 11 12 TBIL 0.3 0.3 0.3 TPROT 6.4 6.2* 6.4 EGFR >60 >60 >60 EGFRAFR >60 >60 >60 Exam HEENT; nasal edema Abdomen: few scattered erythematous maculopapules on upper abdomen Hands: pink/flesh-colored macular rash on ulnar surface of right palm and extensor surfaces of bothhands A/P Placenta previa with low lying chorionic vessel--closest structure to internal cervical os is placenta Not berkley Weekly transvaginal cervical length Goal for delivery at 36 weeks--unless earlier delivery indicated Suspected preeclampsia without severe features Blood pressures appropriate without medication Headache improved with tylenol Labs unremarkable If has severe features would be candidate for delivery earlier than planning for placenta previa Gestational diabetes Good glucose control Will increase Lantus to 36 units qhs New onset rash Treponema Pallidum Antibody negative from 10/27/18 May be contact dermatitis Has topical steroid cream for relief Continues to warrant inpatient care until delivery Mallory Brower MD * Bennett Stewart MD - 12/11/2018 8:36 AM CDT Pt with c/o jitteriness, nausea, palpitations. New RLQ for a few seconds that resolved. No vaginal bleeding. No ctx. Patient Vitals for the past 6 hrs: Temp Pulse Resp BP BP Method 12/11/18 0825 - (!) 110 - - - 12/11/18 0820 98.1 ??F (36.7 ??C) 103 18 150/90 Automatic 12/11/18 0430 97.6 ??F (36.4 ??C) 92 18 143/84 Automatic NAD Tachycardic, regular rhythm CTAB NT ND No calf TTP NST: baseline 170 bpm, moderate variability, n [id number], no decelerations, Holcomb: no ctx A/P: CMP to eval for worsening PreE or electrolyte abnormalities Bennett Stewart MD 12/11/2018 8:39 AM * Amberly Crandall RN - 12/11/2018 5:09 AM CDT Shift summary: Cait Mathews resting in bed, reports positive movements, denies cramping, backaches, visual changes, HAs. Reports occasional contractions and scant brown discharge. VSS/AF, BPs 120s-140s/80s. Continues to have red rash on bilateral hands and abdomen, pt reports no itchiness or discomfort. Fob at bedside . Phone and call light within reach. Will continue to monitor. * Amberly Crandall RN - 12/11/2018 12:55 AM CDT Problem: Bleeding Precautions Goal: Excessive bleeding will be minimized Outcome: Ongoing Cait Mathews reports scant amount of brown discharge. Problem: Pain Related to Uterine Contractions Alteration in comfort. Goal: Decreased Uterine Activity Outcome: Ongoing Cait Mathesw reports occasional contractions. Problem: Alteration of Metabolism of Carb/Prot/Fat/Lytes Alteration in metabolism of carbohydrates, proteins, fats, and electrolytes related to diabetes andpregnancy. Goal: Blood Glucose Levels Remain WDL for this Patient. Blood glucose levels remain within defined limits for this individual. Outcome: Ongoing Cait Mathews HS blood sugar 147. * Essence Faria MD - 12/10/2018 9:01 AM CDT PGY2 Antepartum Progress Note Date: 12/10/2018 Hospital Day: 15 Subjective: Cait Mathews is a 23 year old at 34w3d weeks gestation. There were no acute overnight events. She denies headache, SOB, chest pain, RUQ pain and increased swelling. She denies vaginal bleeding, loss of fluid, and contractions. She reports normal movement. No complaints Objective: Patient Vitals/O2 Sat/CVP in the past 24 hrs: 12/10/18 0520, Resp:18, BP:131/82, SpO2:100 % 12/09/18 2355, Temp:98.2 ??F (36.8 ??C), Resp:18, BP:133/83, SpO2:99 % 12/09/182004, Pulse:86, Resp:18, BP:140/97 12/09/18 1500, Temp:98.3 ??F (36.8 ??C), Pulse:91, Resp:18, BP:122/77 12/09/18 1433, Temp:97.2 ??F (36.2 ??C), Pulse:93, Resp:18, BP:127/67 12/09/18 1140, Temp:97.2 ??F (36.2 ??C), Pulse:93, Resp:18, BP:127/67 12/09/18 0910, Temp:97.4 ??F (36.3 ??C), Pulse:70, Resp:18, BP:136/79, SpO2:97 % Intake/Output Summary (Last 24 hours) at 12/10/18900 Last data filed at 12/10/18 0523 Gross per 24 hour Intake: 400 ml Output: 1100 ml Net : -700 ml Physical Exam: General: alert, cooperative, no distress Lungs: clear to auscultation bilaterally Heart: regular rate and rhythm Abdomen: gravid, nontender, no palpable contractions Extremities: normal, non-tender bilaterally Labs: Recent Labs Component Name 12/08/18 0549 12/06/18 1253 12/05/18 0550 WBC 12.1* 13.3* 13.2* HGB 11.7* 12.1 11.3* HCT 36.2 36.4 35.2* PLTCOUNT 191 208 209 Recent Labs Component Name 12/08/18 0549 12/06/18 1253 11/28/18 0334 SODIUM 136 133* 137 POTASSIUM 4.0 3.9 3.9 CHLORIDE 104 103 107 CO2 20* 20* 21* BUN 8 6* 7 CREATININE 0.43* 0.41* 0.37* GLUCOSE 94 107* 104 CALCIUM 9.8 10.1 9.0 ALBUMIN 3.3* 3.3* 3.3* ALKPHOS 159* 172* 156* ALT 11* 12* 11* AST 11 12 10 TBIL 0.3 0.3 0.2 TPROT 6.2* 6.4 6.0* EGFR >60 >60 >60 NST/Holcomb: See separate procedure note MEDICATIONS FOR CURRENT ENCOUNTER: SCHEDULED MEDICATIONS: 0.9% NaCl injection 10 mL, Intracatheter, q8h acetaminophen (TYLENOL) tablet 650 mg, Oral, q6h chlorhexidine (PERIDEX) 0.12 % oral solution, Swish and Spit, BID diphenhydrAMINE (BENADRYL) capsule 25 mg, Oral, AT BEDTIME docusate sodium (COLACE) capsule 100 mg, Oral, BID insulin detemir (LEVEMIR) pen 32 Units, Subcutaneous, AT BEDTIME iron polysaccharides (NIFEREX 150) capsule 150 mg, Oral, QDAY ?? vitamin with iron tablet 1 tablet, Oral, QDAY ?? CONTINUOUS MEDICATIONS: PRN MEDICATIONS: Or Or benzocaine (MAXIMUM STRENGTH ORAJEL) 20 % gel, Oral, 4X/day PRN yfaofyszek-igzdsxsgfocro-gwtianhr (FIORICET) 50-325-40 MG tablet 1 tablet, Oral, q4h PRN calcium carbonate (TUMS) chew tablet 2 tablet, Oral, q4h PRN hydrocortisone (HYTONE) 1 % ointment, Topical, 4X/day PRN metoclopramide (REGLAN) injection 10 mg, Intravenous, q6h PRN ondansetron (ZOFRAN) injection 4 mg, Intravenous, q6h PRN polyethylene glycol 3350 (MIRALAX) packet 17 g, Oral, QDAY PRN prochlorperazine (COMPAZINE) suppository 25 mg, Rectal, q12h PRN ?? simethicone (MYLICON) chew tablet 160 mg, Oral, 4X/day - PC & NIGHTLY PRN Assessment/Plan: 23 year old at 34w3d, with 1. posterior placenta previa with vaginal bleeding 1. Admitted 11/25 with third episode of bleeding 2. Bilobed placenta with anterior and posterior discs as well as an accessory left lateral placental lobe. Chronic vessel within 2cm of internal cervical os 3. T&S: B+, Ab negative (updated 12/08) 4. Hgb 12/08: 11.7 5. ANCS 09/25-, rANCS 11/25- 6. S/p NICU consult 1. GDM 1. GCT 147 2. GTT 97/167/121/138 3. US 11/24: EFW 2214g (81%), AC >99% 4. Continue levemir 32u qHS 5. 8/2 sugars: 98, 154, 102, 118 6. 8/3 fastin 1. PreE without severe features 1. 24 hour BP ranges: 122-140/67-97 2. One severe range blood pressure, did not require treatment 3. 8/ P:C ratio from straight cath 1.18 4. CBC and CMP labs wnl 5. Continue to monitor BPs today 1. H/O LTCS 1. G1 in 2013 at 34 weeks due to PreE and breech presentation 1. Concern for Dental Caries/Infection 1. Painful, diagnosed outpatient 2. Completed augmentin x6 days 3. Prescribed swish and swallow solution 4. Follow up outpatient 1. Tobacco Use 1. Encouraged cessation 2. Nicotine patch inpatient PRN Dispo: continue inpatient management, monitoring for bleeding and elevated blood pressures Essence Faria MD 12/10/2018 9:01 AM * Hope Ribeiro RN - 12/10/2018 4:41 AM CDT Problem: Bleeding Precautions Goal: Excessive bleeding will be minimized Outcome: Ongoing Denies bleeding at this time. Problem: Pain Related to Uterine Contractions Alteration in comfort. Goal: Decreased Uterine Activity Outcome: Ongoing Denies cramping or contractions. Problem: Alteration of Metabolism of Carb/Prot/Fat/Lytes Alteration in metabolism of carbohydrates, proteins, fats, and electrolytes related to diabetes andpregnancy. Goal: Blood Glucose Levels Remain WDL for this Patient. Blood glucose levels remain within defined limits for this individual. Outcome: Ongoing wdl. * Jolanta Richards RN - 12/09/2018 6:36 PM CDT Shift summary: patient is resting in bed, states positive for movement, denies contractions, vaginal bleeding, states scant, brown discharge, denies abdominal tenderness, vital signs are stableand is afebrile, encouraged to let nurse know of any needs or changes. * Janel Rodriguez - 12/09/2018 6:46 AM CDT Images from the original note were not included. Medical Student Antepartum Progress Note Date: 12/09/2018 Hospital Day: 14 Subjective: Cait Mathews is a 23 year old at 34w2d weeks gestation with a PMHx of a prior due to PreE w/ SF. There were no acute overnight events. She reports brown discharge only noticeable after wiping but says it's a less amount than the previous days. Contractions have subsided and only reported 1 very mild contraction she rated at a pain level of 2. She denies, loss of fluid,nausea, diarrhea, vomiting, chest pain, SOB, headaches, RUQ, changes in vision or lower extremity edema. She reports normal movement. Pt did not express any other concerns. Objective: Patient Vitals in the past 24 hrs: 12/09/18 0518, Temp:98.7 ??F (37.1 ??C), Pulse:78, Resp:18, BP:134/81 12/09/18 0120, Pulse:80, Resp:18, BP:126/70 12/08/18 2131, Temp:98.4 ??F (36.9 ??C), Pulse:84, Resp:18, BP:139/80 12/08/18 1540, Temp:97.9 ??F (36.6 ??C), Pulse:96, Resp:18, BP:132/85 12/08/18 1205, Pulse:99, Resp:18, BP:137/89 12/08/18 0745, Temp:98.3 ??F (36.8 ??C), Pulse:67, Resp:18, BP:139/86 Intake/Output Summary (Last 24 hours) at 12/09/18 0720 Last data filed at 12/09/18 0120 Gross per 24 hour Intake: 1200 ml Output: 1850 ml Net : -650 ml Labs CBC Recent Labs Component Name 12/08/18 0549 12/06/18 1253 12/05/18 0550 WBC 12.1* 13.3* 13.2* HGB 11.7* 12.1 11.3* HCT 36.2 36.4 35.2* MCV 91.0 90.5 91.7 CMP Recent Labs Component Name 12/08/18 0549 12/06/18 1253 11/28/18 0334 CO2 20* 20* 21* CREATININE 0.43* 0.41* 0.37* BUN 8 6* 7 ALKPHOS 159* 172* 156* ALT 11* 12* 11* AST 11 12 10 CATIONS Recent Labs Component Name 12/08/18 0549 12/06/18 1253 11/28/18 0334 CALCIUM 9.8 10.1 9.0 LFTs Recent Labs Component Name 12/08/18 0549 ALT 11* AST 11 ALKPHOS 159* COAGs Recent Labs Component Name 11/14/13 2150 PT <9.2* INR <0.860* LIPIDs No results for input(s): CHOL, HDL, LDLCALC, TRIG, CHOLHDL in the last 28357 hours. CARDIAC No results for input(s): CKTOTAL, CKMB, TROPONINI in the last 17985 hours. Invalid input(s): CKMBINDEX DIABETES Recent Labs Component Name 12/08/18 0549 CREATININE 0.43* ABG Physical Exam: General: alert, cooperative, no distress Lungs: nonlabored respirations Abdomen: gravid, nontender Extremities: no edema or tenderness bilaterally NST/Holcomb: See separate procedure note MEDICATIONS FOR CURRENT ENCOUNTER: SCHEDULED MEDICATIONS: 0.9% NaCl injection 10 mL, Intracatheter, q8h acetaminophen (TYLENOL) tablet 650 mg, Oral, q6h chlorhexidine (PERIDEX) 0.12 % oral solution, Swish and Spit, BID diphenhydrAMINE (BENADRYL) capsule 25 mg, Oral, AT BEDTIME docusate sodium (COLACE) capsule 100 mg, Oral, BID insulin detemir (LEVEMIR) pen 32 Units, Subcutaneous, AT BEDTIME iron polysaccharides (NIFEREX 150) capsule 150 mg, Oral, QDAY ?? vitamin with iron tablet 1 tablet, Oral, QDAY ?? CONTINUOUS MEDICATIONS: PRN MEDICATIONS: Or Or benzocaine (MAXIMUM STRENGTH ORAJEL) 20 % gel, Oral, 4X/day PRN ogpullpsvq-rviinbduvuvgv-sisrihcx (FIORICET) 50-325-40 MG tablet 1 tablet, Oral, q4h PRN calcium carbonate (TUMS) chew tablet 2 tablet, Oral, q4h PRN metoclopramide (REGLAN) injection 10 mg, Intravenous, q6h PRN ondansetron (ZOFRAN) injection 4 mg, Intravenous, q6h PRN polyethylene glycol 3350 (MIRALAX) packet 17 g, Oral, QDAY PRN prochlorperazine (COMPAZINE) suppository 25 mg, Rectal, q12h PRN ?? simethicone (MYLICON) chew tablet 160 mg, Oral, 4X/day - PC & NIGHTLY PRN Assessment/Plan: 23 year old at 34w2d, [facility], with Patient Active Problem List Diagnosis Date Noted ??? Bilobed placenta 12/08/2018 Priority: Not Prioritized Bilobate: Anterior & posterior with a left lateral accessory lobe: ??? Vasa previa Priority: Not Prioritized ??? 34 weeks gestation of Priority: Not Prioritized ??? Gestational diabetes 12/05/2018 Priority: Not Prioritized ??? Maternal asthma complicating 12/05/2018 Priority: Not Prioritized ??? Vaginal bleeding during 11/25/2018 Priority: Not Prioritized ??? Abnormal O'Cartwright glucose challenge test, antepartum 09/27/2018 Priority: Not Prioritized Needs GTT ??? Placenta previa antepartum in third trimester Priority: Not Prioritized ??? Depressive disorder 08/01/2018 Priority: Not Prioritized ??? 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 Gastroesophageal reflux disease 08/01/2018 Priority: Not Prioritized ??? Hyperhidrosis 08/01/2018 Priority: Not Prioritized ??? Hx of preeclampsia, prior , currently Priority: Not Prioritized ??? Previous delivery, antepartum condition or complication Priority: Not Prioritized ??? Previous delivery, antepartum Priority: Not Prioritized ??? Obesity affecting in third trimester Priority: Not Prioritized ??? Tobacco abuse 11/09/2013 ??? Supervision of high risk , antepartum 11/09/2013 1. Vasa previa,Anterior/Posterior Placenta with accessory lobe - continue to monitor with follow up US 2. GDM Fastin (12/09/2018) PP Lunch 144 (12/08/2018) HS 115 (12/08/2018) -continue current insulin regimin (Levemir 32 units) 3. PreE without Severe Features bp ranges over the last 24 hrs wnl (126-139/70-89) Pt denies any symptoms associated with SF (vision changes, RUQ pain, edema in extremities) Protein: Cr Ratio from straight cath= 1.8 (12/08/2018) Repeat UA + RBCs, trace ketones, +3 Protein (12/08/2018) -continue to monitor for SF and monitor for high pressures Associated attestation - Perla Jansen MD - 12/09/2018 8:21 AM CDT This excellent, thorough note is for the educational benefit of the medical student. Please see resident note for treatment details. Perla Jansen MD 12/09/2018 8:19 AM * Mallory Brower MD - 12/09/2018 5:41 AM CDT PGY1 Antepartum Progress Note Date: 12/09/2018 Hospital Day: 14 Subjective: Cait Mathews is a 23 year old at 34w2d weeks gestation. There were no acute overnight events. She reports brown spotting overnight which has been consistently the same over the past couple of days. She denies headache, SOB, chest pain, RUQ pain and increased swelling. She denies vaginal bleeding, loss of fluid, and contractions. She reports normal movement. Objective: Patient Vitals for the past 24 hrs: Temp Pulse Resp BP SpO2 12/09/18 0518 98.7 ??F (37.1 ??C) 78 18 134/81 - 12/09/18 0120 - 80 18 126/70 - 12/08/18 2131 98.4 ??F (36.9 ??C) 84 18 139/80 100 % 12/08/18 1540 97.9 ??F (36.6 ??C) 96 18 132/85 100 % 12/08/18 1205 - 99 18 137/89 100 % 12/08/18 0745 98.3 ??F (36.8 ??C) 67 18 139/86 98 % Intake/Output Summary (Last 24 hours) at 12/09/18 0541 Last data filed at 12/09/18 0120 Gross per 24 hour Intake 1200 ml Output 1850 ml Net -650 ml Physical Exam: General: alert, cooperative, no distress Lungs: clear to auscultation bilaterally Heart: regular rate and rhythm Abdomen: gravid, nontender, no palpable contractions Extremities: normal, non-tender bilaterally Labs: Recent Labs Component Name 12/08/18 0549 12/06/18 1253 12/05/18 0550 WBC 12.1* 13.3* 13.2* HGB 11.7* 12.1 11.3* HCT 36.2 36.4 35.2* PLTCOUNT 191 208 209 Recent Labs Component Name 12/08/18 0549 12/06/18 1253 11/28/18 0334 SODIUM 136 133* 137 POTASSIUM 4.0 3.9 3.9 CHLORIDE 104 103 107 CO2 20* 20* 21* BUN 8 6* 7 CREATININE 0.43* 0.41* 0.37* GLUCOSE 94 107* 104 CALCIUM 9.8 10.1 9.0 ALBUMIN 3.3* 3.3* 3.3* ALKPHOS 159* 172* 156* ALT 11* 12* 11* AST 11 12 10 TBIL 0.3 0.3 0.2 TPROT 6.2* 6.4 6.0* EGFR >60 >60 >60 NST/Holcomb: See separate procedure note MEDICATIONS FOR CURRENT ENCOUNTER: ?? SCHEDULED MEDICATIONS: ?? 0.9% NaCl injection 10 mL, Intracatheter, q8h ?? acetaminophen (TYLENOL) tablet 650 mg, Oral, q6h ?? chlorhexidine (PERIDEX) 0.12 % oral solution, Swish and Spit, BID ?? diphenhydrAMINE (BENADRYL) capsule 25 mg, Oral, AT BEDTIME ?? docusate sodium (COLACE) capsule 100 mg, Oral, BID ?? insulin detemir (LEVEMIR) pen 32 Units, Subcutaneous, AT BEDTIME ?? iron polysaccharides (NIFEREX 150) capsule 150 mg, Oral, QDAY ?? vitamin with iron tablet 1 tablet, Oral, QDAY ?? CONTINUOUS MEDICATIONS: ?? PRN MEDICATIONS: ?? Or ?? Or ?? benzocaine (MAXIMUM STRENGTH ORAJEL) 20 % gel, Oral, 4X/day PRN ?? tsmlouffif-oueafebvzlfik-timvmvgd (FIORICET) 50-325-40 MG tablet 1 tablet, Oral, q4h PRN ?? calcium carbonate (TUMS) chew tablet 2 tablet, Oral, q4h PRN ?? metoclopramide (REGLAN) injection 10 mg, Intravenous, q6h PRN ?? ondansetron (ZOFRAN) injection 4 mg, Intravenous, q6h PRN ?? polyethylene glycol 3350 (MIRALAX) packet 17 g, Oral, QDAY PRN ?? prochlorperazine (COMPAZINE) suppository 25 mg, Rectal, q12h PRN ?? simethicone (MYLICON) chew tablet 160 mg, Oral, 4X/day - PC & NIGHTLY PRN Assessment/Plan: 23 year old at 34w2d, with 1. posterior placenta previa with vaginal bleeding 1. Admitted 11/25 with third episode of bleeding 2. Bilobed placenta with anterior and posterior discs as well as an accessory left lateral placental lobe. Chronic vessel within 2cm of internal cervical os 3. T&S: B+, Ab negative (updated 12/08) 4. Hgb 12/08: 11.7 5. ANCS 09/25-20, rANCS 11/25- 6. S/p NICU consult 1. GDM 1. GCT 147 2. GTT 97/167/121/138 3. US 11/24: EFW 2214g (81%), AC >99% 4. Continue levemir 32u qHS 5. 12/08 sugars: 78, 144, 115 6. 8/2 fastin 1. PreE without severe features 1. 24 hour BP ranges: 126-160/70-104 2. One severe range blood pressure, did not require treatment 3. 12/08 P:C ratio from straight cath 1.18 4. CBC and CMP labs wnl 5. Continue to monitor BPs today 1. H/O LTCS 1. G1 in 2013 at 34 weeks due to PreE and breech presentation 1. Concern for Dental Caries/Infection 1. Painful, diagnosed outpatient 2. Completed augmentin x6 days 3. Prescribed swish and swallow solution 4. Follow up outpatient 1. Tobacco Use 1. Encouraged cessation 2. Nicotine patch inpatient PRN Dispo: continue inpatient management, monitoring for bleeding and elevated blood pressures Vijaya Ashton MD 12/09/2018 5:41 AM Attending Physician Supervisory Note I personally interviewed and examined the patient and agree with the doctor above. Abnormal placenta Posterior placenta previa Bilobate placenta [main discs are anterior and posterior, connected by a right lateral isthmus] with an additional small left lateral accessory placental lobe Vessels with pulse rates within 2 cm of, but not directly overlying, the internal os Reassuring transvaginal cervical length-- No current signs of laboring changes ?? Preeclampsia based on elevated blood pressure and increased protein creatinine ratio Urine culture no growth Small amount of RBC in straight cath specimen not thought to fully explain U P/C ratio of >1.0 If has another severe range blood pressure will recommend discussion and delivery initiation ?? Gestational diabetes blood glucose well controled--no changes made Will ultimately benefit from diabetes testing 4-5 weeks after delivery with review at the six week visit ?? Possible tooth abscess / versus dental caries will prescribe a swish and swallow Patient has already completed six days of oral antibiotics ?? Continues to warrant inpatient care * Mallory Brower MD - 12/08/2018 5:43 PM CDT Attending Physician Supervisory Note Random P/C ratio elevated with strait cath sample. If Cait has another severe range blood pressure will meet criteria for preeclampsia with severe features and would warrant delivery initiation inthe 34th week of . Mallory Brower MD * Perla Jansen MD - 12/08/2018 2:57 PM CDT R2 Update Note In to see patient for right tooth pain. Exam: the 3rd tooth from the back right is very sensitive to light touch, no obvious cavity in thattooth, white sealant covering crown of tooth, gums are sensitive around tooth but no obvious abscess or edema Assessment: Worsening dental cavity, now s/p 10 days of amoxicillin course Plan: chlorahexidine 0.12% swish and spit solution BID, twice daily thorough brushing, orajel, scheduled tylenol for pain management, follow up in Perla Jansen MD 12/08/2018 2:59 PM * Perla Jansen MD - 12/08/2018 10:56 AM CDT R2 Update Note In to discuss with family that Ms. Mathews may have a diet because we do not plan to deliver her baby today. Many family members present in the room and many questions asked. Family seems concerned and does not appreciate the plan changing so often. I expressed empathy that it is difficult to sit in the hospital for long periods of time and that I discussed that in her case there is is a fine line between delivery and continuing the . At this point we will hold off on delivery unless she has any immediate indications (heavy bright red bleeding, decelerations, regular contractions, etc) as we want her baby to grow more. I reassured her the maternal medicine specialists are aware of her case and watching her closely. Final delivery plan will be their decision. Patient expressed possibly leaving AMA, and I reiterated that in the hospital we can act extremely quickly todeliver her baby in the event any emergencies arise. I asked her to write down further questions todiscuss with the team on rounds. Perla Jansen MD 12/08/2018 11:01 AM * Mallory Brower MD - 12/08/2018 5:53 AM CDT Images from the original note were not included. R2 Antepartum Progress Note Date: 12/08/2018 Hospital Day: 13 Subjective: Denies LOF and contractions. Her vaginal spotting is the same, light and brown. FM present. Objective: Patient Vitals for the past 24 hrs: Temp Pulse Resp BP 12/08/18 0425 98 ??F (36.7 ??C) 81 16 138/85 12/07/18 2325 98.4 ??F (36.9 ??C) 79 18 152/97 12/07/18 1920 98.3 ??F (36.8 ??C) 88 18 152/98 12/07/18 1720 - - - 146/98 12/07/18 1645 - - - (!) 159/101 12/07/18 1630 - - - (!) 160/103 12/07/18 1610 - - - (!) 158/104 12/07/18 1530 98.4 ??F (36.9 ??C) 91 18 142/94 12/07/18 1215 98.4 ??F (36.9 ??C) 91 18 138/88 12/07/18 0830 98.4 ??F (36.9 ??C) 80 18 139/88 UOP: 0.9 mL/kg/hr Patient Vitals for the past 30 hrs: Glucose Bedside (mg/dL) Insulin 12/08/18 0425 fbs 78 mg/dL 12/07/18 2100 bedtime 121 mg/dL Given 32 units Detemir 12/07/18 1920 1 hr pp diner 134 mg/dL 12/07/18 1529 1 hr pp lunch 137 mg/dL 12/07/18 0952 1 hr pp breakfast 141 mg/dL 12/07/18 0415 fbs 88 mg/dL Physical Exam: General: alert, cooperative, no distress Lungs: non-labored respirations Abdomen: gravid, Non-tender, soft Extremities: No LE edema noted, no calf tenderness NST: See formal NST note Problem List: Patient Active Problem List: Tobacco abuse Supervision of high risk , antepartum Hx of preeclampsia, prior , currently Previous delivery, antepartum condition or complication Previous delivery, antepartum Obesity affecting in third trimester Depressive disorder 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 Gastroesophageal reflux disease Hyperhidrosis Placenta previa antepartum in third trimester Abnormal O'Cartwright glucose challenge test, antepartum Vaginal bleeding during Gestational diabetes Maternal asthma complicating Bilobed placenta Vasa previa 34 weeks gestation of MEDICATIONS FOR CURRENT ENCOUNTER: SCHEDULED MEDICATIONS: 0.9% NaCl injection 3 mL, Intracatheter, q8h diphenhydrAMINE (BENADRYL) capsule 25 mg, Oral, AT BEDTIME docusate sodium (COLACE) capsule 100 mg, Oral, BID insulin detemir (LEVEMIR) pen 32 Units, Subcutaneous, AT BEDTIME iron polysaccharides (NIFEREX 150) capsule 150 mg, Oral, QDAY vitamin with iron tablet 1 tablet, Oral, QDAY ?? [COMPLETED] acetaminophen (TYLENOL) tablet 1,000 mg, Oral, Once ?? CONTINUOUS MEDICATIONS: PRN MEDICATIONS: Or Or 0.9% NaCl injection 1-10 mL, Intracatheter, PRN acetaminophen (TYLENOL) tablet 650 mg, Oral, q6h PRN benzocaine (MAXIMUM STRENGTH ORAJEL) 20 % gel, Oral, TID PRN kfwylqyuyg-elqcksygaevvx-vvorsdvw (FIORICET) 50-325-40 MG tablet 1 tablet, Oral, q4h PRN calcium carbonate (TUMS) chew tablet 2 tablet, Oral, q4h PRN metoclopramide (REGLAN) injection 10 mg, Intravenous, q6h PRN ondansetron (ZOFRAN) injection 4 mg, Intravenous, q6h PRN polyethylene glycol 3350 (MIRALAX) packet 17 g, Oral, QDAY PRN prochlorperazine (COMPAZINE) suppository 25 mg, Rectal, q12h PRN ?? simethicone (MYLICON) chew tablet 160 mg, Oral, 4X/day - PC & NIGHTLY PRN Assessment/ Plan: 23 year old at 34w1d 1. Vasa Previa & Posterior Previa with Vaginal bleeding ?? Patient admitted 11/25 with third episode bleeding ?? Bilobate placenta with anterior & posterior discs as well as an accessory left lateral placental lobe. Chorionic vessel within 2 cm of internal cervical os ?? T&S: B+, Ab negative (last updated 12/08/18) ?? Hgb 12/08: 11.7 ?? ANCS 09/25-, repeat 11/25-11/26 ?? S/p NICU consult ?? S/P TVUS (12/07) pending 2. Gestational Diabetes Mellitus ?? GCT 147 ?? GTT 97/167/121/138 (none elevated) ?? US 11/24: EFW 2214g (81%), AC > 99% ?? Cont Levemir 32u qHS ?? Sugars as above 3. H/o LTCS x1 ?? G1 in 2013 at 34 weeks due to PreE and breech presentation 4. Gestational HTN (h/o preE) ?? 24 hour BPs range: 130-160/80-100s, around 1600 yesterday had 1 severe and multiple diastolic inthe 100s ?? 24hr urine (06/02): 142mg ?? Pr/Cr 0.28 > 0.67 (but blood in urine, consider straight cath today) ?? CBC& CMP pertinent for Cr 0.43, ALT/AST 03/20, Plt 191 5. Concern for Dental Caries/Infection(?) ?? painful, diagnosed outpatient ?? Continue Augmentin x6 days?? 6. Tobacco use ?? Encourage cessation ?? Nicotine patch inpatient PRN 7. Dispo: Continue inpatient care for previa admitted with 3rd bleed. Closely monitor BP and symptoms for h/o preeclampsia with now mildly elevated blood pressures and maintain control of blood sugars. Perla Jansen MD 12/07/2018 5:53 AM Attending Physician Supervisory Note I personally interviewed and examined the patient and agree with the doctor above. physician addendum: Mental: Appropriate mood behavior and speech HEENT: Appears to have nasal swelling A/P Problem Bilobed Placenta Bilobate: Anterior & posterior with a left lateral accessory lobe: Abnormal O'cartwright Glucose Challenge Test, Antepartum Needs GTT Previous Delivery, Antepartum Abnormal placenta Bilobate placenta [main discs are anterior and posterior, connected by a right lateral isthmus] with an additional small left lateral accessory placental lobe Vessels with pulse rates within 2 cm of, but not directly overlying, the internal os Reassuring transvaginal cervical length-- No current signs of laboring changes Gestational hypertension Urine culture no growth Will re-evaluate urine by straight catheterization assess for protein Gestational diabetes blood glucose well controled--no changes made Will ultimately benefit from diabetes testing 4-5 weeks after delivery with review at the six week visit Possible tooth abscess / versus dental caries will prescribe a swish and swallow Patient has already completed six days of oral antibiotics Continues to warrant inpatient care I spent 30 minutes in review, examination and coordination of care for this patient. Mallory Brower MD * Martha Pineda RN - 12/08/2018 4:57 AM CDT Shift summary Patient is alert and oriented and up ad rafa. No complaints of contractions, cramping, backaches, bleeding or LOF. Complaints of pelvic pressure that is unchanged and tooth ache (orajel ordered per MDHilton). Blood pressure unchanged overnight. HIbacleanse shower taken last night, second one neededthis AM. VSS and BSS. Afebrile. Will continue to monitor. Call light within reach. * Martha Pineda RN - 12/07/2018 8:53 PM CDT Problem: Bleeding Precautions Goal: Excessive bleeding will be minimized Outcome: Ongoing Bleeding WDL. No bleeding at this time. Goal: Precautionary measures taken to prevent bleeding Outcome: Ongoing Emergency supplies at the ready. Blood on hold. Problem: Pain Related to Uterine Contractions Alteration in comfort. Goal: Decreased Uterine Activity Outcome: Ongoing No complaints of contractions at this time. * Gabbi Saenz RDMS - 12/07/2018 1:27 PM CDT Ultrasound completed-12/07/2018 Position- vertex KOREY- not measures, subjectively appears wnl CL- 3.8 cm Heart rate- 149 bpm Comments- Dr. Brower present for exam Ultrasound Completed by Gabbi Saenz RDMS * Raisa Farooq RN - 12/07/2018 12:30 PM CDT Patient returned from ultrasound. Patient reports positive movement, with no contractions, No headache pain, nor blurry vision. Patient denies vaginal bleeding Aside from scant brown discharge when doing anthony care. * SauravKsenia I - 12/07/2018 11:52 AM CDT Problem: Biochemical: Altered nutrition-related laboratory values Goal: Biochemical: Other (Comments) Elevated fasting BG at GTT Goal of FBS <90mg/dl and 1 hr PP ,130 mg/ dl Outcome: Ongoing Nutrition Goal Progress: Progressing toward goal;Continue with current goal Comments: CLINICAL NUTRITION REASSESSMENT Assessment: Pt was seen today for follow up, she reports a good appetite , no Gi complaints PO Intake Average (last 72 hours): % Meal Taken Av % Min: 100 % Max: 100 % . She knows what foods are carbs and said the diet office helps her if she isn't sure about what to order . Blood sugar range 88-141 , noted adding sukhwinderimer . Low Na , elevated Alk Phos Bowels are moving . No weight since admission , total weight gain is 24 # , ideal for GA and BMI is 9-16 # . Continue to follow at high nutrition risk . Med/Surg History and Clinical Diagnoses: 32w5d complete previa with vaginal bleeding h/o C/s Current diet order: Consistent Carb Standard Food Allergies: No known food allergies P.O intake for past 48 hrs: % Meal Taken Av % Min: 100 % Max: 100 % % Oral Supplement Intake:No Data Recorded Pain affecting intake: No Patient Vitals for the past 336 hrs: Weight 11/25/18 0611 202 lb 3.2 oz (91.7 kg) No new Weight/Weight change: no new weight this week New Meds:: Gertrude Reis LABS: Recent Labs Component Name 12/06/18 1253 SODIUM 133* POTASSIUM 3.9 CHLORIDE 103 CO2 20* BUN 6* CREATININE 0.41* GLUCOSE 107* CALCIUM 10.1 ALBUMIN 3.3* ALKPHOS 172* ALT 12* AST 12 TBIL 0.3 TPROT 6.4 EGFR >60 Recent Labs Component Name 12/06/18 1253 12/05/18 0550 12/01/18 0553 HGB 12.1 11.3* 11.5* HCT 36.4 35.2* 34.9* Agree with supplementation of PNV + and Niferex. Patient Vitals for the past 30 hrs: Glucose Bedside (mg/dL) 12/07/18 0952 141 mg/dL 12/07/18 0415 88 mg/dL 12/06/18 2050 138 mg/dL 12/06/18 1840 117 mg/dL 12/06/18 1502 108 mg/dL 12/06/18 1130 126 mg/dL 12/06/18 0558 98 mg/dL Skin/Wound: WDL Last BM: 12-06-18 Nutrition Care Process (1) Nutrition Diagnostic Statement: Altered nutrition-related lab values related to:: --- () as evidenced by:: elevated laboratory values Nutrition Diagnostic Statement Progress: Nutrition problem continues Nutrition Intervention: Meals and snacks:;Nutrition Education - Content Current diet order: Consistent Carb Standard Nutrition recommendation: agree with current nutrition order Education needed: Consistent Carb Education provided Pt educated : earlier in admission and reviewed , Discussed healthy eating during with regards to diabetes. Reviewed recommended servings of fruits, vegetables, whole grains, protein, and calcium rich foods. Recommended CHO meal/snack pattern of 30-45 gm CHO with breakfast, 45-60 gm CHO at L&D, and 15-30 gm CHO per snack and recommended protein with all meals. Encouraged daily exercise of at least 30 minutes, 5 days a week, and discouraged consumption of high-fat/high-calorie foods. Recommended pt consume adequate fluids from water (recommendation of 64 oz/day) and avoid soda and sugary beverages. Encouraged for 6 months to 1 year and discussed benefits to motherand baby. Expected level of compliance: Fair Following pt at high nutritional risk, 3-5 days per protocol Nutrition recommendation: agree with current nutrition order ?? Continue 45/60 gm carb restricted diet for with 3 snacks ?? Continue current snacks of pt's preference ?? Weekly weights Monitoring: Follow for weights , intake, skin, labs, BM's Evaluation: Nutrition Goal: Biochemical data will be improved/normalized Nutrition Goal Timeframe: Throughout stay Ksenia Mg DTR 12/07/2018 11:52 AM Ascom [id number] * Raisa Farooq RN - 12/07/2018 11:20 AM CDT Patient taken off unit to ultrasound via transport. Patient reports positive movement and denies vaginal bleeding, contraction, and headache. Will reassess patient upon return. * Deepa Chaudhry APRN-CNP - 12/07/2018 8:36 AM CDT AGRICULTURAL PLOW OPERATOR MFM Antepartum Progress Note Date: 12/07/2018 Hospital Day: 12 Subjective: Cait Mathews is a 23 year old G 2 P 1 A 0 at 34w0d weeks gestation. Patient reports continues to have slight brown vaginal discharge. Questions regarding timing of delivery. Denies feeling contractions, but reports continued pelvic pressure. Reports good movement. She denies chest pain, shortness of breath, headache or abdominal pain. Objective: BP 121/81 Pulse 92 Temp 98.2 ??F (36.8 ??C) Resp 16 Ht 5' (1.524 m) Wt 202 lb 3.2 oz (91.7 kg) SpO2 99% BMI 39.49 kg/m2 Temp (24hrs) Max:98.3 ??F (36.8 ??C) Systolic (30hrs), Av , Min:120 , Max:150 Diastolic (30hrs), Av, Min:75, Max:87 Intake/Output Summary (Last 24 hours) at 12/07/18 0836 Last data filed at 12/06/18 2300 Gross per 24 hour Intake 1030 ml Output 0 ml Net 1030 ml Patient Vitals for the past 30 hrs: Glucose Bedside (mg/dL) 12/07/18 0415 88 mg/dL 12/06/18 2050 138 mg/dL 12/06/18 1840 117 mg/dL 12/06/18 1502 108 mg/dL 12/06/18 1130 126 mg/dL 12/06/18 0558 98 mg/dL Physical Exam: General: alert, cooperative, no distress Lungs: non-labored respirations Abdomen: gravid, Non-tender Extremities: No LE edema noted NST: See formal NST Note: reactive without contractions TOCO: Problem List: Patient Active Problem List: Tobacco abuse Supervision of high risk , antepartum Hx of preeclampsia, prior , currently Previous delivery, antepartum condition or complication Previous delivery, antepartum Obesity affecting in third trimester Depressive disorder 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 SCHEDULED MEDICATIONS: ?? 0.9% NaCl injection 3 mL, Intracatheter, q8h ?? diphenhydrAMINE (BENADRYL) capsule 25 mg, Oral, AT BEDTIME ?? docusate sodium (COLACE) capsule 100 mg, Oral, BID ?? insulin detemir (LEVEMIR) pen 32 Units, Subcutaneous, AT BEDTIME ?? iron polysaccharides (NIFEREX 150) capsule 150 mg, Oral, QDAY ?? vitamin with iron tablet 1 tablet, Oral, QDAY ?? CONTINUOUS MEDICATIONS: ?? PRN MEDICATIONS: ?? Or ?? Or ?? 0.9% NaCl injection 1-10 mL, Intracatheter, PRN ?? acetaminophen (TYLENOL) tablet 650 mg, Oral, q6h PRN ?? calcium carbonate (TUMS) chew tablet 2 tablet, Oral, q4h PRN ?? metoclopramide (REGLAN) injection 10 mg, Intravenous, q6h PRN ?? ondansetron (ZOFRAN) injection 4 mg, Intravenous, q6h PRN ?? polyethylene glycol 3350 (MIRALAX) packet 17 g, Oral, QDAY PRN ?? prochlorperazine (COMPAZINE) suppository 25 mg, Rectal, q12h PRN ?? simethicone (MYLICON) chew tablet 160 mg, Oral, 4X/day - PC & NIGHTLY PRN Assessment/ Plan: 23 year old at 34w0d 2. Complete Posterior Previa with Vaginal bleeding 1. Patient admitted 11/25 with third episode bleeding 2. S/p admission on and for bleeding 3. Ultrasound(11/24): posterior/right lateral placenta previa, no bridging vessels and no placental lakes 4. T&S: B+, Ab negative 5. Hgb (12/06): 12.1 6. ANCS on , repeat 11/25-11/26 7. S/p NICU consult 8. S/P Ultrasound (12/05) to assess placenta for signs of accreta or for regression away from the cervix - interpretation pending 1. Repeat CL 3.1, KOREY 15.51 3. Gestational Diabetes Mellitus 1. GCT 147 2. GTT 97/167/121/138 3. US 11/24: EFW 2214g (81%), AC > 99% 4. On Levemir 32u qHS (changed recently on 12/04) 5. Sugars over 24 hours: 1. FBS 88 2. PP B: 126 3. PP L: 108 4. PP D: 117 5. HS: 138 4. H/o LTCS x1 1. G1 in 2013 at 34 weeks due to PreE and breech presentation 5. H/o PreE/ now with gestational HTN 1. Last 24 hour BPs: 120-150/75-88 2. 24hr urine (06/02): 142mg 3. Pr/Cr 0.28 on 11/28 (1+ blood in urine), Pr/Cr 0.67 on 12/06 (2+ blood in urine) 4. CBC/CMP WNL 12/06 6. Tobacco use 1. Encourage cessation 2. Nicotine patch inpatient PRN 7. Dispo: Continue inpatient care for previa admitted with 3rd bleed. Closely monitor BP and symptoms for h/o preeclampsia with now mildly elevated blood pressures and maintain control of blood sugars. Plan to be discussed with Dr. Brower on rounds ADI Atwood 12/07/2018 8:36 AM * Janel Rodriguez - 12/07/2018 6:57 AM CDT Medical Student Antepartum Progress Note Date: 12/07/2018 Hospital Day: 12 Subjective: Cait Mathews is a 23 year old at 34w0d weeks gestation. There were no acute overnight events. She reports irregular contractions 2-3 times a day she rates the pain anywhere 3-7 lasting around 1minute, pelvic pressure and some brown discharge. She denies loss of fluid, headaches, changes in vision, SOB or cramps. She reports normal movement. Objective: BP 121/81 Pulse 92 Temp 98.2 ??F (36.8 ??C) Resp 16 Ht 5' (1.524 m) Wt 202 lb 3.2 oz (91.7 kg) SpO2 99% BMI 39.49 kg/m2 Patient Vitals for the past 24 hrs: Temp Pulse Resp BP 12/07/18 0415 98.2 ??F (36.8 ??C) 92 16 121/81 12/06/18 2255 98.3 ??F (36.8 ??C) 81 16 136/84 12/06/18 1950 98.3 ??F (36.8 ??C) 97 16 120/75 12/06/18 1720 98.3 ??F (36.8 ??C) - 16 150/86 12/06/18 1340 98.2 ??F (36.8 ??C) 90 16 132/87 12/06/18 0925 98 ??F (36.7 ??C) - 16 142/87 LABS Recent Labs Component Name 12/05/18 0550 ABO B RHTYPE Positive Patient Vitals for the past 48 hrs: Glucose Bedside (mg/dL) 12/05/18 1235 124 mg/dL 12/05/18 1735 83 mg/dL 12/05/18 1920 129 mg/dL 12/05/18 2100 122 mg/dL 12/06/18 0558 98 mg/dL 12/06/18 1130 126 mg/dL 12/06/18 1502 108 mg/dL 12/06/18 1840 117 mg/dL 12/06/18 2050 138 mg/dL 12/07/18 0415 88 mg/dL URINALYSIS REFLEX MICROSCOPIC REFLEX CULTURE [[id number]] (Abnormal) Collected: 12/06/2018 1253 ?? Order Status: Completed Lab Status: Final result Updated: 12/06/2018 1341 ?? Specimen: Urine from Urine Clean Catch ?? Color UA Yellow Straw, Yellow ?? Clarity UA Slt Cloudy (Abnormal) Clear ?? Glucose UA Negative Negative ?? Bilirubin UA Negative Negative ?? Ketone UA Trace (Abnormal) Negative ?? Specific [place] UA 1.015 1.005 - 1.030 ?? Blood UA 2+ (Abnormal) Negative ?? pH UA 6.0 5.0 - 8.0 pH ?? Protein UA 1+ (Abnormal) Negative ?? Urobilinogen UA Negative Negative mg/dL ?? Nitrite UA Negative Negative ?? Leukocyte UA 2+ (Abnormal) Negative ?? Urine Microscopy Urine microscopy to follow ?? Reflex Status Culture to follow Recent Labs Component Name 12/06/18 1253 12/05/18 0550 12/01/18 0553 WBC 13.3* 13.2* 15.6* HGB 12.1 11.3* 11.5* HCT 36.4 35.2* 34.9* PLTCOUNT 208 209 219 Intake/Output Summary (Last 24 hours) at 12/07/18 0657 Last data filed at 12/06/18 2300 Gross per 24 hour Intake 1030 ml Output 0 ml Net 1030 ml Physical Exam: General: alert, cooperative, no distress Lungs: nonlabored respirations Abdomen: gravid, nontender Extremities: no edema or tenderness bilaterally NST/Holcomb: See separate procedure note MEDICATIONS FOR CURRENT ENCOUNTER: ?? SCHEDULED MEDICATIONS: ?? 0.9% NaCl injection 3 mL, Intracatheter, q8h ?? diphenhydrAMINE (BENADRYL) capsule 25 mg, Oral, AT BEDTIME ?? docusate sodium (COLACE) capsule 100 mg, Oral, BID ?? insulin detemir (LEVEMIR) pen 32 Units, Subcutaneous, AT BEDTIME ?? iron polysaccharides (NIFEREX 150) capsule 150 mg, Oral, QDAY ?? vitamin with iron tablet 1 tablet, Oral, QDAY ?? CONTINUOUS MEDICATIONS: ?? PRN MEDICATIONS: ?? Or ?? Or ?? 0.9% NaCl injection 1-10 mL, Intracatheter, PRN ?? acetaminophen (TYLENOL) tablet 650 mg, Oral, q6h PRN ?? calcium carbonate (TUMS) chew tablet 2 tablet, Oral, q4h PRN ?? metoclopramide (REGLAN) injection 10 mg, Intravenous, q6h PRN ?? ondansetron (ZOFRAN) injection 4 mg, Intravenous, q6h PRN ?? polyethylene glycol 3350 (MIRALAX) packet 17 g, Oral, QDAY PRN ?? prochlorperazine (COMPAZINE) suppository 25 mg, Rectal, q12h PRN ?? simethicone (MYLICON) chew tablet 160 mg, Oral, 4X/day - PC & NIGHTLY PRN Assessment/Plan: 23 year old at 34w0d, AFVS, with 1. Complete Post. Placenta Previa -US results show no signs of accreta -Plan: CS at 36 wks or sooner if clinically necessary 2. Gestational Diabetes -24 hr sugar levels: PP Breakfast: 126 Post Lunch: 108 PP Dinner: 117 Fasting 88 -Plan continue to titrate insulin 3. Hx of Pre-E -Pro/Cr .63 bp ranges (120-150/75-80) otherwise asymptomatic -Continue to monitor for signs of severe features Associated attestation - Lianne Flores MD - 12/14/2018 7:47 AM CDT This note is for the educational benefit of the medical student. Please see resident note for treatment details. Lianne Flores MD 12/14/2018 7:47 AM * Martha Pineda RN - 12/07/2018 5:30 AM CDT Shift summary Patient is alert and oriented and up ad rafa. No complaints of pain, BARRERA, blurry vision, SOB, cramping, bleeding, backaches, of LOF. Complains of occasional contractions, pelvic pressure that has not changed and brown discharge that has not changed. Blood pressure and VS remained stable overnight. Afebrile. BSS. Urine output adequate. Will continue to monitor. Call light within reach. * Martha Pineda RN - 12/06/2018 8:32 PM CDT Problem: Bleeding Precautions Goal: Excessive bleeding will be minimized Outcome: Ongoing Patient denies any bleeding at this time. Will continue to monitor. Problem: Pain Related to Uterine Contractions Alteration in comfort. Goal: Decreased Uterine Activity Outcome: Ongoing Occasional contractions reported by patient. Two reported today, unchanged. Will continue to monitor. Problem: Alteration of Metabolism of Carb/Prot/Fat/Lytes Alteration in metabolism of carbohydrates, proteins, fats, and electrolytes related to diabetes andpregnancy. Goal: Blood Glucose Levels Remain WDL for this Patient. Blood glucose levels remain within defined limits for this individual. Outcome: Ongoing BSS. Will continue to monitor. * Lynda Campuzano RN - 12/06/2018 5:42 PM CDT Shift Summary Patient resting most of the day. Reports moderate tooth pain that was relieved with tylenol. Reports rare contraction. Denies VB. Reports + FM. VSS and assessment per flow sheet. Cait has had higher than her previous blood pressures today. MD was notified. IV remains in place and flushing without resistance. Encouraged patient to call out with any questions or concerns. Denies needs at this time. Will continue to monitor. * Lynda Campuzano RN - 12/06/2018 11:16 AM CDT 12/06/18 1115 Clinician Communication/Critical Test Notification Reason: Condition Update Name of Clinician Notified: Dr Flores Role: OB Resident Notification Method: Called/Phoned Action No new orders received-Care to Continue Comments: Notified of pt BP this am * Radha Jansen RN - 12/06/2018 7:21 AM CDT Shift Summary: Pt resting in bed at this time. Reports movement. Denies ctx or cramping. Continues to have brownish mucous discharge. VS stable; afebrile. IV access patent and flushes easily. Will continue to monitor. * Mallory Brower MD - 12/06/2018 5:51 AM CDT R1 Antepartum Progress Note Date: 12/06/2018 Hospital Day: 11 Subjective: Cait Mathews is a 23 year old at 33w6d weeks gestation. There were no acute overnight events. She reports more episodes of spotting. She states that they are mucous-like in consistency, and she only sees it when she goes to the bathroom and wipes. The blood is dark brown in color. She denies loss of fluid and contractions. She reports normal movement. She also denies headache, fevers, chills, chest pain, increased SOB. Objective: Patient Vitals for the past 24 hrs: Temp Pulse Resp BP SpO2 12/05/18 2100 98.5 ??F (36.9 ??C) - 20 127/75 - 12/05/18 1735 98.4 ??F (36.9 ??C) 95 18 131/77 100 % 12/05/18 1030 97.5 ??F (36.4 ??C) 77 18 127/85 98 % No intake or output data in the 24 hours ending 12/06/18 0551 Physical Exam: General: alert, cooperative, no distress Lungs: clear to auscultation bilaterally Heart: regular rate and rhythm Abdomen: gravid, nontender, no palpable contractions Extremities: normal, non-tender bilaterally Labs: Recent Labs Component Name 12/05/18 0550 12/01/18 0553 11/28/18 0334 WBC 13.2* 15.6* 13.7* HGB 11.3* 11.5* 10.4* HCT 35.2* 34.9* 32.4* PLTCOUNT 209 219 214 Recent Labs Component Name 11/28/18 0334 11/15/13 0806 11/12/13 1042 SODIUM 137 140 135* POTASSIUM 3.9 4.2 3.8 CHLORIDE 107 108* 103 CO2 21* 22 22 BUN 7 10 10 CREATININE 0.37* 0.36* 0.52 GLUCOSE 104 78 105 CALCIUM 9.0 8.7 8.7 ALBUMIN 3.3* 1.8* 1.9* ALKPHOS 156* 192* 178* ALT 11* 23 23 AST 10 17 15 TBIL 0.2 0.1* 0.2 TPROT 6.0* 5.3* 5.1* EGFR >60 >60 >60 NST/Holcomb: See separate procedure note MEDICATIONS FOR CURRENT ENCOUNTER: ?? SCHEDULED MEDICATIONS: ?? 0.9% NaCl injection 3 mL, Intracatheter, q8h ?? diphenhydrAMINE (BENADRYL) capsule 25 mg, Oral, AT BEDTIME ?? docusate sodium (COLACE) capsule 100 mg, Oral, BID ?? insulin detemir (LEVEMIR) pen 32 Units, Subcutaneous, AT BEDTIME ?? iron polysaccharides (NIFEREX 150) capsule 150 mg, Oral, QDAY ?? vitamin with iron tablet 1 tablet, Oral, QDAY ?? CONTINUOUS MEDICATIONS: ?? PRN MEDICATIONS: ?? Or ?? Or ?? 0.9% NaCl injection 1-10 mL, Intracatheter, PRN ?? acetaminophen (TYLENOL) tablet 650 mg, Oral, q6h PRN ?? calcium carbonate (TUMS) chew tablet 2 tablet, Oral, q4h PRN ?? metoclopramide (REGLAN) injection 10 mg, Intravenous, q6h PRN ?? ondansetron (ZOFRAN) injection 4 mg, Intravenous, q6h PRN ?? polyethylene glycol 3350 (MIRALAX) packet 17 g, Oral, QDAY PRN ?? prochlorperazine (COMPAZINE) suppository 25 mg, Rectal, q12h PRN ?? simethicone (MYLICON) chew tablet 160 mg, Oral, 4X/day - PC & NIGHTLY PRN Assessment/Plan: 23 year old at 33w6d, with 1. Complete Posterior Previa with Vaginal bleeding 1. Patient admitted 11/25 with third episode bleeding 2. S/p admission on and for bleeding 3. FETU Sono (11/24): posterior/right lateral placenta previa, no bridging vessels and no placental lakes 4. T&S: B+, Ab negative 5. Hgb (12/05): 11.3 6. ANCS on , repeat 11/25-11/26 7. S/p NICU consult 8. S/P Ultrasound (12/05) to assess placenta for signs of accreta or for regression away from the cervix - interpretation pending 1. Repeat CL 3.1, KOREY 15.51 9. Holcomb discontinued 10. Plan: C/S at 36 weeks or sooner if clinically indicated. 2. Gestational Diabetes Mellitus 1. GCT 147 2. GTT 97/167/121/138 3. US 11/24: EFW 2214g (81%), AC > 99% 4. On Levemir 32u qHS (changed recently on 12/04) 5. Sugars over 24 hours: 1. FBS 94 2. PP B: 124 3. PP L: 83 4. PP D: 129 5. HS: 122 6. Plan: titrate insulin as needed 3. H/o LTCS x1 1. G1 in 2013 at 34 weeks due to PreE and breech presentation 2. Plan:??repeat C/S at 36 weeks 4. H/o PreE 1. 127-131/75-85 1. Last mild range BP 12/03 147/84 2. 24hr urine (06/02): 142mg 3. Pr/Cr 0.28 4. CBC/CMP 11/28 wnl 5. Plan:??if develops more mild range BPs, will repeat 24 hour urine 5. Tobacco use 1. Encourage cessation 2. Nicotine patch inpatient PRN 6. Sinus vs. Dental Infection (?) 1. Asymptomatic, diagnosed outpatient 2. Plan: Continue Amoxicillin x14 days (day 8 of 14) 7. Dispo: continue inpatient care to monitor for bleeding 2/2 previa, monitoring of BP due to h/o preeclampsia, maintaining control of blood sugars Gabrielle Lui MD 12/06/2018 5:51 AM Attending Physician Supervisory Note Patient seen and examined by me. Patient Vitals for the past 24 hrs (Last 5 readings): BP Temp Pulse Resp SpO2 12/06/18 1340 132/87 98.2 ??F (36.8 ??C) 90 16 100 % 12/06/18 0925 142/87 98 ??F (36.7 ??C) - 16 100 % 12/06/18 0600 129/75 97.8 ??F (36.6 ??C) - 16 - I revise the barakat elements of the assessment and plan to include : Placenta previa with a previous delivery Remains at risk for occult placenta accreta Images of transvaginal cervical length performed on 12/05/2018 reviewed-- re- evaluation warranted. There appears to be a lower uterine segment clot. Current relationship between the placenta and internal cervical os not clearly delineated. Reassuring transvaginal cervical length Gestational hypertension No current indication for standing antihypertensive medication. Will send random protein creatinine ratio from a clean catch sample --strongly emphasized how to perform a clean-catch sample Additional diabetes No changes made to insulin regimen today Continues to warrant inpatient care Mallory Brower MD * Lynda Campuzano, RN - 12/05/2018 1:19 PM CDT 12/05/18 1312 Clinician Communication/Critical Test Notification Reason: OB - Monitor Strip Review Name of Clinician Notified: Dr Flores Role: OB Resident Notification Method: Called/Phoned Action No new orders received-Care to Continue Comments: Baby is tachy * Poppy Shirley RDMS - 12/05/2018 10:01 AM CDT Patient was seen for ultrasound 12/05/2018 Position - Vertex KOREY - 15.51 cm EFW - g S/D - PI - CL - 3.1 cm BPP - / 8 Placenta Location - Anterior/Posterior previa FHR - 177 bpm Comments - Ultrasound completed by - Poppy Shirley RDMS * Mallory Brower MD - 12/05/2018 5:52 AM CDT R1 Antepartum Progress Note Date: 12/05/2018 Hospital Day: 10 Subjective: Cait Mathews is a 23 year old at 33w5d weeks gestation. There were no acute overnight events. She reports some vaginal bleeding overnight that she says is mucus-like and mostly blood andstates that it has been stable since she was admitted. She endorses some occassional cramping as well. She denies loss of fluid and contractions. She reports normal movement. She denies headache, fevers, chills, n/v, increased SOB. Objective: Patient Vitals for the past 24 hrs: Temp Pulse Resp BP SpO2 12/04/18 2345 97.4 ??F (36.3 ??C) 75 18 132/77 - 12/04/18 2025 98.4 ??F (36.9 ??C) 89 18 132/92 98 % 12/04/18 1345 98 ??F (36.7 ??C) 81 18 137/83 98 % 12/04/18 0955 98.1 ??F (36.7 ??C) 84 18 127/69 99 % Intake/Output Summary (Last 24 hours) at 12/05/18 0553 Last data filed at 12/04/18 1353 Gross per 24 hour Intake 480 ml Output 0 ml Net 480 ml Physical Exam: General: alert, cooperative, no distress Lungs: clear to auscultation bilaterally Heart: regular rate and rhythm Abdomen: gravid, nontender, no palpable contractions Extremities: normal, non-tender bilaterally Labs: Recent Labs Component Name 12/01/18 0553 11/28/18 0334 11/25/18 0641 WBC 15.6* 13.7* 12.2* HGB 11.5* 10.4* 11.8* HCT 34.9* 32.4* 35.6* PLTCOUNT 219 214 227 Recent Labs Component Name 11/28/18 0334 11/15/13 0806 11/12/13 1042 SODIUM 137 140 135* POTASSIUM 3.9 4.2 3.8 CHLORIDE 107 108* 103 CO2 21* 22 22 BUN 7 10 10 CREATININE 0.37* 0.36* 0.52 GLUCOSE 104 78 105 CALCIUM 9.0 8.7 8.7 ALBUMIN 3.3* 1.8* 1.9* ALKPHOS 156* 192* 178* ALT 11* 23 23 AST 10 17 15 TBIL 0.2 0.1* 0.2 TPROT 6.0* 5.3* 5.1* EGFR >60 >60 >60 NST/Holcomb: See separate procedure note MEDICATIONS FOR CURRENT ENCOUNTER: ?? SCHEDULED MEDICATIONS: ?? 0.9% NaCl injection 3 mL, Intracatheter, q8h ?? diphenhydrAMINE (BENADRYL) capsule 25 mg, Oral, AT BEDTIME ?? docusate sodium (COLACE) capsule 100 mg, Oral, BID ?? insulin detemir (LEVEMIR) pen 32 Units, Subcutaneous, AT BEDTIME ?? iron polysaccharides (NIFEREX 150) capsule 150 mg, Oral, QDAY ?? vitamin with iron tablet 1 tablet, Oral, QDAY ?? CONTINUOUS MEDICATIONS: ?? PRN MEDICATIONS: ?? Or ?? Or ?? 0.9% NaCl injection 1-10 mL, Intracatheter, PRN ?? acetaminophen (TYLENOL) tablet 650 mg, Oral, q6h PRN ?? calcium carbonate (TUMS) chew tablet 2 tablet, Oral, q4h PRN ?? metoclopramide (REGLAN) injection 10 mg, Intravenous, q6h PRN ?? ondansetron (ZOFRAN) injection 4 mg, Intravenous, q6h PRN ?? polyethylene glycol 3350 (MIRALAX) packet 17 g, Oral, QDAY PRN ?? prochlorperazine (COMPAZINE) suppository 25 mg, Rectal, q12h PRN ?? simethicone (MYLICON) chew tablet 160 mg, Oral, 4X/day - PC & NIGHTLY PRN Assessment/Plan: 23 year old at 33w5d, with Gabrielle Lui MD 12/05/2018 5:53 AM 1. Complete Posterior Previa with Vaginal bleeding 1. Patient admitted 11/25 with third bleeding (clot passed in AM) 2. S/p admission on and for bleeding 3. FETU Sono (11/24): posterior/right lateral placenta previa, no bridging vessels and no placental lakes 4. T&S: B+, Ab negative 5. Hgb (12/05): 11.3 6. ANCS on , repeat 11/25-11/26 7. S/p NICU consult 8. Plan:?? 1. Ultrasound today (12/05) to assess placenta for signs of accreta for for regression away from thecervix 2. C/S at 36 weeks or sooner if clinically indicated. 2. Gestational Diabetes Mellitus 1. GCT 147 2. GTT 97/167/121/138 3. US 11/24: EFW 2214g (81%), AC > 99% 4. On Levemir 32u qHS (changed recently on 12/04) 5. Sugars 1. FBS: 102 2. PPB: 103 3. PPL: 115 4. PPD: 159 5. HS: 125 6. Plan: titrate insulin as needed 3. H/o LTCS x1 1. G1 in 2013 at 34 weeks due to PreE and breech presentation 2. Plan:??repeat C/S at 36 weeks 4. H/o PreE 1. BPs: 127-137/69-92 2. 24hr urine (06/02): 142mg 3. Pr/Cr 0.28 4. CBC/CMP 11/28 wnl 5. Plan:??if develops more mild range BPs, will repeat 24 hour urine 5. Tobacco use 1. Encourage cessation 2. Nicotine patch inpatient PRN 6. Sinus vs. Dental Infection (?) 1. Asymptomatic, diagnosed outpatient 2. Continue Amoxicillin x14 days (day 7 of 14) Gabrielle Lui MD Attending Physician Supervisory Note I personally interviewed and examined the patient and agree with the doctor above. Patient Vitals for the past 24 hrs (Last 5 readings): BP Temp Pulse Resp SpO2 12/05/18 1030 127/85 97.5 ??F (36.4 ??C) 77 18 98 % 12/04/18 2345 132/77 97.4 ??F (36.3 ??C) 75 18 - 12/04/182024 132/92 98.4 ??F (36.9 ??C) 89 18 98 % A/P Placenta previa No current episodes of bleeding. Remains at risk for Antepartum and immediate hemorrhage. Cervical Measurements today reassuring; no current demonstration of labor changes in place. Retains an 11 percent estimated a priori risk of placenta accreta due to one prior delivery and placenta previa in this . Gestational hypertension-- More than two elevated blood pressures by more than 6 hr. Currently not requiring antihypertensive medication for management. Protein creatinine ratio from 11/28/2018 was 0.28 which does not suggest the presence of macro proteinuria at this time. Concurrent urine culture sent the same time was negative. Gestational diabetes Blood sugars improving after recent interval change. No changes made today. Continues to warrant inpatient care. Mallory Brower MD * Ricky Serrano RN - 12/05/2018 2:22 AM CDT Problem: Alteration of Metabolism of Carb/Prot/Fat/Lytes Alteration in metabolism of carbohydrates, proteins, fats, and electrolytes related to diabetes andpregnancy. Goal: Blood Glucose Levels Remain WDL for this Patient. Blood glucose levels remain within defined limits for this individual. Outcome: Ongoing Cait's glucose levels remain within range, given scheduled levemier tonight random glucose levelchecked prior to medication administration. Discussed signs and symptoms of hypoglycemia with pt, understanding verbalized. * Ricky Serrano RN - 12/05/2018 2:20 AM CDT Problem: Bleeding Precautions Goal: Excessive bleeding will be minimized Outcome: Ongoing Cait denies VB and cramping at this time, reports +FM, denies feeling contractions and LOF. Continues to have scant discharge noted when wiping after voids. * Lynda Campuzano RN - 12/04/2018 5:06 PM CDT 12/04/18 1705 Clinician Communication/Critical Test Notification Reason: Condition Update Name of Clinician Notified: Dr Merchant Role: OB Resident Notification Method: Called/Phoned Action Orders Received Comments: Holcomb for 30 min If toco is unchanged from previous monitor it can be d/c. Per MD if pt is just having a little cramping here and there it is ok unless it is more severe or accompanied by VB. * Candace Peacock MD - 12/04/2018 3:02 PM CDT Teaching Attending Note Hospital Day: 9 I have interviewed and examined the patient, and discussed the assessment and plan of care with theresident/fellow. I agree with the findings and plan of care as outlined in the resident/fellow notes. My findings include: 23 year old G 2 P 1 A 0 female at 33w4d weeks gestation. Patient reports: Red and brown discharge when she wipes, mixed with mucus; more brown today. Has had some cramping. No leaking of fluid. FetalMovement: normal. Patient Active Problem List Diagnosis Date Noted ??? Vaginal bleeding 11/25/2018 Priority: Not Prioritized ??? Vaginal bleeding during , antepartum 11/03/2018 Priority: Not Prioritized ??? Abnormal O'Cartwright glucose challenge test, antepartum 09/27/2018 Priority: Not Prioritized Needs GTT ??? Evaluate anatomy not seen on prior sonogram Priority: Not Prioritized ??? Vaginal bleeding in , second trimester Priority: Not Prioritized ??? Obesity (BMI 30-39.9) Priority: Not Prioritized ??? Placenta previa without hemorrhage, antepartum Priority: Not Prioritized ??? Cellulitis 08/01/2018 Priority: Not Prioritized ??? Child attention deficit disorder 08/01/2018 Priority: Not Prioritized ??? Depressive disorder 08/01/2018 Priority: Not Prioritized ??? 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 Dysmenorrhea 08/01/2018 Priority: Not Prioritized ??? Ganglion and cyst of synovium, tendon and bursa 08/01/2018 Priority: Not Prioritized ??? Gastroesophageal reflux disease 08/01/2018 Priority: Not Prioritized ??? Hyperhidrosis 08/01/2018 Priority: Not Prioritized ??? Hx of preeclampsia, prior , currently Priority: Not Prioritized ??? Previous delivery, antepartum condition or complication Priority: Not Prioritized ??? Previous delivery, antepartum Priority: Not Prioritized ??? Obesity affecting in third trimester Priority: Not Prioritized ??? Tobacco abuse 11/09/2013 ??? Supervision of high risk , antepartum 11/09/2013 Objective: Temp (24hrs) Max:98.1 ??F (36.7 ??C) BP 137/83 Pulse 81 Temp 98 ??F (36.7 ??C) Resp 18 Ht 5' (1.524 m) Wt 202 lb 3.2 oz (91.7 kg) SpO2 98% BMI 39.49 kg/m2 Physical Exam: General: alert, cooperative, no distress Extremities: no edema Abdomen: gravid, obese, uterus slightly more tense, nontender No contractions on monitor strip Patient Vitals for the past 30 hrs: Glucose Bedside (mg/dL) 12/04/18 1450 115 mg/dL 12/04/18 1120 103 mg/dL 12/04/18 0618 102 mg/dL 12/03/18 2023 129 mg/dL 12/03/18 1550 155 mg/dL 12/03/18 0955 157 mg/dL Recent Labs Component Name 12/01/18 0553 11/28/18 0334 11/25/18 0641 11/04/18 0521 WBC 15.6* 13.7* 12.2* 13.9* RBC 3.84 3.54* 3.94 3.69* HGB 11.5* 10.4* 11.8* 11.2* HCT 34.9* 32.4* 35.6* 33.7* MCV 90.9 91.5 90.4 91.3 MCHC 33.0 32.1 33.1 33.2 PLTCOUNT 219 214 227 213 NEUTPCT 71.7 - 73.7* 72.4 LYMPHPCT 16.9* - 16.7* 17.3* BASOPHILPCT 0.3 - 0.3 0.3 GRANSIMMPCT 4.4* - 2.2* 2.5* NEUTABS 11.20* - 8.96* 10.05* LYMPHABS 2.63 - 2.03 2.40 BASOABS 0.05 - 0.04 0.04 US: AC at 99th percentile, normal fluid. Velamentous cord insertion. Assessment: at Gestational Age 33w4d Placenta previa, S/P 3rd bleed, now with spotting. GDM. FBS still high. Her postprandial values are better today. Previous CS, no evidence of accreta on last scan. Hx preeclampsia. Nicotine dependence Plan: Continue current management Continue evening Levemir, increase dose Once daily monitoring. More monitoring if she has further bleeding. Re-monitor for contractions now. Plan for an ultrasound next week to re-evaluate the placenta for signs of accreta or for regressionaway from the cervix. Candace Peacock MD * Lianne Flores MD - 12/04/2018 10:28 AM CDT R2 Antepartum Progress Note Date: 12/04/2018 Hospital Day: 9 Subjective: Cait Mathews is a 23 year old at 33w4d weeks gestation. There were no acute overnight events. She reports she has had blood in her vaginal discharge since yesterday (bright and dark). Some cramps but no contractions or leakage of fluid. Normal movement. Denies BARRERA, vision changes,chest pain, shortness of breath, or RUQ pain. Denies feeling like her blood sugar was low. Objective: Patient Vitals/O2 Sat/CVP in the past 24 hrs: 12/04/18 0955, Temp:98.1 ??F (36.7 ??C), Pulse:84, Resp:18, BP:127/69, SpO2:99 % 12/03/18 2316, Temp:98.1 ??F (36.7 ??C), Pulse:86, Resp:18, BP:147/84, SpO2:98 % 12/03/18 1550, Temp:98.1 ??F (36.7 ??C), Pulse:91, Resp:18, BP:125/82, SpO2:98 % No intake or output data in the 24 hours ending 12/04/18 1028 Physical Exam: General: alert, cooperative, no distress Lungs: clear to auscultation bilaterally Heart: regular rate and rhythm Abdomen: gravid, nontender, no palpable contractions Extremities: normal, non-tender bilaterally Labs: Recent Labs Component Name 12/01/18 0553 11/28/18 0334 11/25/18 0641 WBC 15.6* 13.7* 12.2* HGB 11.5* 10.4* 11.8* HCT 34.9* 32.4* 35.6* PLTCOUNT 219 214 227 Recent Labs Component Name 11/28/18 0334 11/15/13 0806 11/12/13 1042 SODIUM 137 140 135* POTASSIUM 3.9 4.2 3.8 CHLORIDE 107 108* 103 CO2 21* 22 22 BUN 7 10 10 CREATININE 0.37* 0.36* 0.52 GLUCOSE 104 78 105 CALCIUM 9.0 8.7 8.7 ALBUMIN 3.3* 1.8* 1.9* ALKPHOS 156* 192* 178* ALT 11* 23 23 AST 10 17 15 TBIL 0.2 0.1* 0.2 TPROT 6.0* 5.3* 5.1* EGFR >60 >60 >60 NST/Holcomb: See separate procedure note MEDICATIONS FOR CURRENT ENCOUNTER: SCHEDULED MEDICATIONS: 0.9% NaCl injection 3 mL, Intracatheter, q8h diphenhydrAMINE (BENADRYL) capsule 25 mg, Oral, AT BEDTIME docusate sodium (COLACE) capsule 100 mg, Oral, BID insulin detemir (LEVEMIR) pen 28 Units, Subcutaneous, AT BEDTIME iron polysaccharides (NIFEREX 150) capsule 150 mg, Oral, QDAY ?? vitamin with iron tablet 1 tablet, Oral, QDAY ?? CONTINUOUS MEDICATIONS: PRN MEDICATIONS: Or Or 0.9% NaCl injection 1-10 mL, Intracatheter, PRN acetaminophen (TYLENOL) tablet 650 mg, Oral, q6h PRN calcium carbonate (TUMS) chew tablet 2 tablet, Oral, q4h PRN metoclopramide (REGLAN) injection 10 mg, Intravenous, q6h PRN ondansetron (ZOFRAN) injection 4 mg, Intravenous, q6h PRN polyethylene glycol 3350 (MIRALAX) packet 17 g, Oral, QDAY PRN prochlorperazine (COMPAZINE) suppository 25 mg, Rectal, q12h PRN ?? simethicone (MYLICON) chew tablet 160 mg, Oral, 4X/day - PC & NIGHTLY PRN Assessment/Plan: 23 year old at 33w4d, with 1. Complete Posterior Previa with Vaginal bleeding 1. Patient admitted 11/25 with third bleeding (clot passed in AM) 1. S/p admission on and for bleeding 2. FETU Sono (11/24): posterior/right lateral placenta previa, no bridging vessels and no placental lakes 3. T&S: B+, Ab negative 4. Hgb (11/28): 10.4 5. ANCS on , repeat 11/25-11/26 6. S/p NICU consult 7. Update - has blood in her vaginal discharge yesterday and overnight. Will discuss with Dr. Peacock 8. Plan: C/S at 36 weeks or sooner if clinically indicated. 2. Gestational Diabetes Mellitus 1. GCT 147 2. GTT 97/167/121/138 3. US 11/24: EFW 2214g (81%), AC > 99% 4. On Levemir 28u qHS 5. Sugars: 1. F 89 2. PP B 157 3. PP L 155 4. PP D 129 5. F 102 6. Plan: titrate insulin as needed 3. H/o LTCS x1 1. G1 in 2013 at 34 weeks due to PreE and breech presentation 2. Plan: repeat C/S at 36 weeks 4. H/o PreE 1. BPs: 120s-130s/70s in last 24 hours 2. 24hr urine (06/02): 142mg 3. Pr/Cr 0.28 4. CBC/CMP 11/28 wnl 5. Plan: if develops more mild range BPs, will repeat 24 hour urine 5. Tobacco use 1. Encourage cessation 2. Nicotine patch inpatient PRN 6. Sinus vs. Dental Infection (?) 1. Asymptomatic, diagnosed outpatient 2. Continue Amoxicillin x14 days Plan: continue inpatient stay for 3rd bleed in setting of posterior placenta previa. Will discuss bleeding overnight with Dr. Peacock. Lianne Flores MD 12/04/2018 10:28 AM Associated attestation - Candace Peacock MD - 12/04/2018 3:07 PM CDT See my note. Candace Peacock MD * Lynda Campuzano RN - 12/03/2018 5:30 PM CDT 12/03/18 1725 Clinician Communication/Critical Test Notification Reason: Condition Update Name of Clinician Notified: Dr Jansen Role: OB Resident Notification Method: Called/Phoned Action No new orders received-Care to Continue Comments: Pt called with complaint of cramping. Placed her on EFM * Candace Peacock MD - 12/03/2018 4:06 PM CDT Teaching Attending Note Hospital Day: 8 I have interviewed and examined the patient, and discussed the assessment and plan of care with theresident/fellow. I agree with the findings and plan of care as outlined in the resident/fellow notes. My findings include: 23 year old G 2 P 1 A 0 female at 33w3d weeks gestation. Patient reports: Red and brown discharge when she wipes, mixed with mucus; this is a new finding. No cramping/contractions or leaking of fluid. Movement: normal. Patient Active Problem List Diagnosis Date Noted ??? Vaginal bleeding 11/25/2018 Priority: Not Prioritized ??? Vaginal bleeding during , antepartum 11/03/2018 Priority: Not Prioritized ??? Abnormal O'Cartwright glucose challenge test, antepartum 09/27/2018 Priority: Not Prioritized Needs GTT ??? Evaluate anatomy not seen on prior sonogram Priority: Not Prioritized ??? Vaginal bleeding in , second trimester Priority: Not Prioritized ??? Obesity (BMI 30-39.9) Priority: Not Prioritized ??? Placenta previa without hemorrhage, antepartum Priority: Not Prioritized ??? Cellulitis 08/01/2018 Priority: Not Prioritized ??? Child attention deficit disorder 08/01/2018 Priority: Not Prioritized ??? Depressive disorder 08/01/2018 Priority: Not Prioritized ??? 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 Dysmenorrhea 08/01/2018 Priority: Not Prioritized ??? Ganglion and cyst of synovium, tendon and bursa 08/01/2018 Priority: Not Prioritized ??? Gastroesophageal reflux disease 08/01/2018 Priority: Not Prioritized ??? Hyperhidrosis 08/01/2018 Priority: Not Prioritized ??? Hx of preeclampsia, prior , currently Priority: Not Prioritized ??? Previous delivery, antepartum condition or complication Priority: Not Prioritized ??? Previous delivery, antepartum Priority: Not Prioritized ??? Obesity affecting in third trimester Priority: Not Prioritized ??? Tobacco abuse 11/09/2013 ??? Supervision of high risk , antepartum 11/09/2013 Objective: Temp (24hrs) Max:98.3 ??F (36.8 ??C) BP 125/82 Pulse 91 Temp 98.1 ??F (36.7 ??C) Resp 18 Ht 5' (1.524 m) Wt 202 lb 3.2 oz (91.7 kg) [id number]% BMI 39.49 kg/m2 Physical Exam: General: alert, cooperative, no distress Extremities: no edema Abdomen: gravid, obese, uterus soft, nontender Patient Vitals for the past 30 hrs: Glucose Bedside (mg/dL) 12/03/18 1550 155 mg/dL 12/03/18 0955 157 mg/dL 12/03/18 0558 89 mg/dL 12/02/18 1849 132 mg/dL 12/02/18 1403 140 mg/dL Recent Labs Component Name 12/01/18 0553 11/28/18 0334 11/25/18 0641 11/04/18 0521 WBC 15.6* 13.7* 12.2* 13.9* RBC 3.84 3.54* 3.94 3.69* HGB 11.5* 10.4* 11.8* 11.2* HCT 34.9* 32.4* 35.6* 33.7* MCV 90.9 91.5 90.4 91.3 MCHC 33.0 32.1 33.1 33.2 PLTCOUNT 219 214 227 213 NEUTPCT 71.7 - 73.7* 72.4 LYMPHPCT 16.9* - 16.7* 17.3* BASOPHILPCT 0.3 - 0.3 0.3 GRANSIMMPCT 4.4* - 2.2* 2.5* NEUTABS 11.20* - 8.96* 10.05* LYMPHABS 2.63 - 2.03 2.40 BASOABS 0.05 - 0.04 0.04 US: AC at 99th percentile, normal fluid. Velamentous cord insertion. Assessment: at Gestational Age 33w3d Placenta previa, S/P 3rd bleed, no bleeding now. GDM. FBS slightly improved with insulin. Her postprandial values are higher over the last day. If that persists, she may need morning long acting insulin versus mealtime insulin. Previous CS, no evidence of accreta on last scan. Hx preeclampsia. Nicotine dependence Plan: Continue current management Continue evening Levemir Once daily monitoring. More monitoring if she has further bleeding. Plan for an ultrasound next week to re-evaluate the placenta for signs of accreta or for regressionaway from the cervix. Candace Peacock MD * Charlene Storm RN - 12/03/2018 3:35 PM CDT Report given to Mann Campuzano RN & all questions answered. * Charlene Storm RN - 12/03/2018 2:25 PM CDT Shift Summary: Flow sheet assessment unchanged. Reports positive movement. Denies vaginal bleeding/contractions/leakage of fluid/pelvic pressure/pain or discomfort. Call light & phone within reach. * Charlene Storm RN - 12/03/2018 10:01 AM CDT I called maintenance & spoke with Cait Maldonado reports her shower is too hot & the knob to make it cooler doesn't work. Joel states he will come up to check it out but she may have to move rooms if the piece needs to be taken out the wall & cleaned then put back Cait informed & states i don't want to move rooms again I can deal with hot shower water. I called the [facility] & spoke with Sunitha who will put her on the list to come & talk with her regarding questions she has. I took Cait to NICU for a tour & she returned to her room. * Lianne Flores MD - 12/03/2018 8:01 AM CDT R2 Antepartum Progress Note Date: 12/03/2018 Hospital Day: 8 Subjective: Cait Mathews is a 23 year old at 33w3d weeks gestation. There were no acute overnight events. She reports she is doing well. She did have some spotting yesterday, but none overnight thatshe knows of. She denies loss of fluid and contractions. She reports normal movement. Denies BARRERA, vision changes, chest pain, shortness of breath, or RUQ pain. Denies feeling like her blood sugar was low. Objective: Patient Vitals/O2 Sat/CVP in the past 24 hrs: 12/02/18 2205, Temp:98.3 ??F (36.8 ??C), Pulse:73, Resp:18, BP:130/75 12/02/18 1510, Temp:98.3 ??F (36.8 ??C), Pulse:96, Resp:20, BP:124/78, SpO2:99 % 12/02/18 0822, Temp:98.5 ??F (36.9 ??C), Pulse:85, Resp:18, BP:122/78, SpO2:97 % Intake/Output Summary (Last 24 hours) at 12/03/18 0801 Last data filed at 12/02/18 2100 Gross per 24 hour Intake: 240 ml Output: 0 ml Net : 240 ml Physical Exam: General: alert, cooperative, no distress Lungs: clear to auscultation bilaterally Heart: regular rate and rhythm Abdomen: gravid, nontender, no palpable contractions Extremities: normal, non-tender bilaterally Labs: Recent Labs Component Name 12/01/18 0553 11/28/18 0334 11/25/18 0641 WBC 15.6* 13.7* 12.2* HGB 11.5* 10.4* 11.8* HCT 34.9* 32.4* 35.6* PLTCOUNT 219 214 227 Recent Labs Component Name 11/28/18 0334 11/15/13 0806 11/12/13 1042 SODIUM 137 140 135* POTASSIUM 3.9 4.2 3.8 CHLORIDE 107 108* 103 CO2 21* 22 22 BUN 7 10 10 CREATININE 0.37* 0.36* 0.52 GLUCOSE 104 78 105 CALCIUM 9.0 8.7 8.7 ALBUMIN 3.3* 1.8* 1.9* ALKPHOS 156* 192* 178* ALT 11* 23 23 AST 10 17 15 TBIL 0.2 0.1* 0.2 TPROT 6.0* 5.3* 5.1* EGFR >60 >60 >60 NST/Holcomb: See separate procedure note MEDICATIONS FOR CURRENT ENCOUNTER: SCHEDULED MEDICATIONS: 0.9% NaCl injection 3 mL, Intracatheter, q8h diphenhydrAMINE (BENADRYL) capsule 25 mg, Oral, AT BEDTIME docusate sodium (COLACE) capsule 100 mg, Oral, BID insulin detemir (LEVEMIR) pen 28 Units, Subcutaneous, AT BEDTIME iron polysaccharides (NIFEREX 150) capsule 150 mg, Oral, QDAY vitamin with iron tablet 1 tablet, Oral, QDAY ?? [COMPLETED] amoxicillin (AMOXIL) tablet 875 mg, Oral, q12h ?? CONTINUOUS MEDICATIONS: PRN MEDICATIONS: Or Or 0.9% NaCl injection 1-10 mL, Intracatheter, PRN acetaminophen (TYLENOL) tablet 650 mg, Oral, q6h PRN calcium carbonate (TUMS) chew tablet 2 tablet, Oral, q4h PRN metoclopramide (REGLAN) injection 10 mg, Intravenous, q6h PRN ondansetron (ZOFRAN) injection 4 mg, Intravenous, q6h PRN polyethylene glycol 3350 (MIRALAX) packet 17 g, Oral, QDAY PRN prochlorperazine (COMPAZINE) suppository 25 mg, Rectal, q12h PRN ?? simethicone (MYLICON) chew tablet 160 mg, Oral, 4X/day - PC & NIGHTLY PRN Assessment/Plan: 23 year old at 33w3d, with 1. Complete Posterior Previa with Vaginal bleeding 1. Patient admitted 11/25 with third bleeding (clot passed in AM) 1. S/p admission on and for bleeding 2. FETU Sono (11/24): posterior/right lateral placenta previa, no bridging vessels and no placental lakes 3. T&S: B+, Ab negative 4. Hgb (11/28): 10.4 5. ANCS on , repeat 11/25-11/26 6. S/p NICU consult 7. Plan: Monitor for further bleeding, C/S at 36 weeks or sooner if clinically indicated. 2. Gestational Diabetes Mellitus 1. GCT 147 2. GTT 97/167/121/138 3. US 11/24: EFW 2214g (81%), AC > 99% 4. On Levemir 28u qHS 5. Sugars: 1. F 96 2. PP B 162 3. PP L 140 4. PP D 132 5. F 89 6. Plan: titrate insulin as needed 3. H/o LTCS x1 1. G1 in 2013 at 34 weeks due to PreE and breech presentation 2. Plan: repeat C/S at 36 weeks 4. H/o PreE 1. BPs: 120s-130s/70s in last 24 hours 2. 24hr urine (06/02): 142mg 3. Pr/Cr 0.28 4. CBC/CMP 11/28 wnl 5. Plan: if develops more mild range BPs, will repeat 24 hour urine 5. Tobacco use 1. Encourage cessation 2. Nicotine patch inpatient PRN 6. Sinus vs. Dental Infection (?) 1. Asymptomatic, diagnosed outpatient 2. Continue Amoxicillin x14 days Plan: continue inpatient stay for 3rd bleed in setting of posterior placenta previa. Lianne Flores MD 12/03/2018 8:01 AM Associated attestation - Candace Peacock MD - 12/04/2018 9:52 AM CDT See my note. Candace Peacock MD * Charlene Storm, RN - 12/02/2018 4:44 PM CDT Shift Summary: Flow sheet assessment unchanged. Cait reports positive movement. Denies vaginal bleeding/leakage of fluid/contractions/pelvic pressure or pain. Call light & phone within reach. * Sari Khalil RD/MADALYN - 12/02/2018 10:26 AM CDT Problem: Biochemical: Altered nutrition-related laboratory values Goal: Biochemical: Other (Comments) Elevated fasting BG at GTT Outcome: Ongoing Nutrition Goal Progress: Progressing toward goal;Continue with current goal Comments: CLINICAL NUTRITION REASSESSMENT Assessment: Pt seen for LOS follow up. Pt with eleveate 3 hour GTT. FBG 100, 96 mg/dL; 1hr postprandial: 119-131 mg/dL. Pt average meal intake 100%. Pt request snack with apple be changed to grapes, states she does not eat the apple. Levemir added at bedtime. Pt educated on consistent carbohydrate diet 11/29, pt did not have any questions about diet plan. 12/01 Labs reviewed: H/H low. Medications reviewed: Colace, Niferex, with Iron, and Levemir. Will continue to follow pt per high nutritional risk protocol. Med/Surg History and Clinical Diagnoses: 32w5d complete previa with vaginal bleeding h/o C/s Current diet order: Consistent Carb Standard Food Allergies: No known food allergies P.O intake for past 48 hrs: % Meal Taken Av % Min: 100 % Max: 100 % % Oral Supplement Intake:No Data Recorded Pain affecting intake: No Patient Vitals for the past 336 hrs: Weight 11/25/18 0611 202 lb 3.2 oz (91.7 kg) No new Weight/Weight change: no new wt measured New Meds: Levemir LABS: Recent Labs Component Name 11/28/18 0334 SODIUM 137 POTASSIUM 3.9 CHLORIDE 107 CO2 21* BUN 7 CREATININE 0.37* GLUCOSE 104 CALCIUM 9.0 ALBUMIN 3.3* ALKPHOS 156* ALT 11* AST 10 TBIL 0.2 TPROT 6.0* EGFR >60 No results for input(s): PHOS in the last 03732 hours.No results for input(s): HGBA1C in the last 83086 hours. No results for input(s): PREALBUMIN in the last 36874 hours. Patient Vitals for the past 30 hrs: Glucose Bedside (mg/dL) 12/02/18 0822 162 mg/dL 12/02/18 0510 96 mg/dL 12/01/18 1914 135 mg/dL 12/01/18 1453 129 mg/dL 12/01/18 1244 111 mg/dL 12/01/18 0553 100 mg/dL Skin/Wound: WDL Last BM: 12/01 Nutrition Care Process (1) Nutrition Diagnostic Statement: Altered nutrition-related lab values related to:: --- () as evidenced by:: elevated laboratory values Nutrition Diagnostic Statement Progress: Nutrition problem continues Nutrition Intervention: Meals and snacks:;Nutrition Education - Content Education needed: Consistent Carb Education provided Pt educated 11/29 Expected level of compliance: Fair Following pt at high nutritional risk. Nutrition recommendation: agree with current nutrition order ?? Continue with consistent carb diet for ?? Changing apple and cheese snack to grapes and cheese Monitoring: PO Intake Labs BMs Weight Evaluation: Nutrition Goal: Biochemical data will be improved/normalized Nutrition Goal Timeframe: Throughout stay Sari Khalil RD/MADALYN, DTR 12/02/2018 10:26 AM Ascom [id number] * Candace Peacock MD - 12/02/2018 9:45 AM CDT Teaching Attending Note Hospital Day: 7 I have interviewed and examined the patient, and discussed the assessment and plan of care with theresident/fellow. I agree with the findings and plan of care as outlined in the resident/fellow notes. My findings include: 23 year old G 2 P 1 A 0 female at 33w2d weeks gestation. Patient reports: no bleeding, cramping/contractions or leaking of fluid. Movement: normal. Patient Active Problem List Diagnosis Date Noted ??? Vaginal bleeding 11/25/2018 Priority: Not Prioritized ??? Vaginal bleeding during , antepartum 11/03/2018 Priority: Not Prioritized ??? Abnormal O'Cartwright glucose challenge test, antepartum 09/27/2018 Priority: Not Prioritized Needs GTT ??? Evaluate anatomy not seen on prior sonogram Priority: Not Prioritized ??? Vaginal bleeding in , second trimester Priority: Not Prioritized ??? Obesity (BMI 30-39.9) Priority: Not Prioritized ??? Placenta previa without hemorrhage, antepartum Priority: Not Prioritized ??? Cellulitis 08/01/2018 Priority: Not Prioritized ??? Child attention deficit disorder 08/01/2018 Priority: Not Prioritized ??? Depressive disorder 08/01/2018 Priority: Not Prioritized ??? 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 Dysmenorrhea 08/01/2018 Priority: Not Prioritized ??? Ganglion and cyst of synovium, tendon and bursa 08/01/2018 Priority: Not Prioritized ??? Gastroesophageal reflux disease 08/01/2018 Priority: Not Prioritized ??? Hyperhidrosis 08/01/2018 Priority: Not Prioritized ??? Hx of preeclampsia, prior , currently Priority: Not Prioritized ??? Previous delivery, antepartum condition or complication Priority: Not Prioritized ??? Previous delivery, antepartum Priority: Not Prioritized ??? Obesity affecting in third trimester Priority: Not Prioritized ??? Tobacco abuse 11/09/2013 ??? Supervision of high risk , antepartum 11/09/2013 Objective: Temp (24hrs) Max:98.5 ??F (36.9 ??C) BP 122/78 Pulse 85 Temp 98.5 ??F (36.9 ??C) Resp 18 Ht 5' (1.524 m) Wt 202 lb 3.2 oz (91.7 kg) [id number]% BMI 39.49 kg/m2 Physical Exam: General: alert, cooperative, no distress Extremities: no edema Abdomen: gravid, obese, uterus soft, nontender Patient Vitals for the past 30 hrs: Glucose Bedside (mg/dL) 12/02/18 0822 162 mg/dL 12/02/18 0510 96 mg/dL 12/01/18 1914 135 mg/dL 12/01/18 1453 129 mg/dL 12/01/18 1244 111 mg/dL 12/01/18 0553 100 mg/dL Recent Labs Component Name 12/01/18 0553 11/28/18 0334 11/25/18 0641 11/04/18 0521 WBC 15.6* 13.7* 12.2* 13.9* RBC 3.84 3.54* 3.94 3.69* HGB 11.5* 10.4* 11.8* 11.2* HCT 34.9* 32.4* 35.6* 33.7* MCV 90.9 91.5 90.4 91.3 MCHC 33.0 32.1 33.1 33.2 PLTCOUNT 219 214 227 213 NEUTPCT 71.7 - 73.7* 72.4 LYMPHPCT 16.9* - 16.7* 17.3* BASOPHILPCT 0.3 - 0.3 0.3 GRANSIMMPCT 4.4* - 2.2* 2.5* NEUTABS 11.20* - 8.96* 10.05* LYMPHABS 2.63 - 2.03 2.40 BASOABS 0.05 - 0.04 0.04 US: AC at 99th percentile, normal fluid. Velamentous cord insertion. Assessment: at Gestational Age 33w2d Placenta previa, S/P 3rd bleed, no bleeding now. GDM. FBS slightly improved with insulin. Previous CS, no evidence of accreta on last scan. Hx preeclampsia. Nicotine dependence Plan: Continue current management Continue evening Levemir Once daily monitoring. Candace Peacock MD * Lianne Flores MD - 12/02/2018 6:48 AM CDT R2 Antepartum Progress Note Date: 12/02/2018 Hospital Day: 7 Subjective: Cait Mathews is a 23 year old at 33w2d weeks gestation. There were no acute overnight events. She reports she is doing well. No bleeding overnight. She denies loss of fluid and contractions. She reports normal movement. Objective: Patient Vitals/O2 Sat/CVP in the past 24 hrs: 12/02/18 0510, Temp:98.5 ??F (36.9 ??C), Pulse:70, Resp:20, BP:124/74 12/02/18 0018, Temp:98.3 ??F (36.8 ??C), Pulse:77, Resp:28, BP:127/66, SpO2:99 % 12/01/18 2047, Temp:98.3 ??F (36.8 ??C), Pulse:88, Resp:24, BP:126/76, SpO2:98 % 12/01/18 1600, Temp:98.4 ??F (36.9 ??C), Pulse:82, Resp:18, BP:133/80, SpO2:97 % 12/01/18 1030, Temp:98 ??F (36.7 ??C), Pulse:73, Resp:20, BP:128/77, SpO2:97 % No intake or output data in the 24 hours ending 12/02/18 0648 Physical Exam: General: alert, cooperative, no distress Lungs: clear to auscultation bilaterally Heart: regular rate and rhythm Abdomen: gravid, nontender, no palpable contractions Extremities: normal, non-tender bilaterally Labs: Recent Labs Component Name 12/01/18 0553 11/28/18 0334 11/25/18 0641 WBC 15.6* 13.7* 12.2* HGB 11.5* 10.4* 11.8* HCT 34.9* 32.4* 35.6* PLTCOUNT 219 214 227 Recent Labs Component Name 11/28/18 0334 11/15/13 0806 11/12/13 1042 SODIUM 137 140 135* POTASSIUM 3.9 4.2 3.8 CHLORIDE 107 108* 103 CO2 21* 22 22 BUN 7 10 10 CREATININE 0.37* 0.36* 0.52 GLUCOSE 104 78 105 CALCIUM 9.0 8.7 8.7 ALBUMIN 3.3* 1.8* 1.9* ALKPHOS 156* 192* 178* ALT 11* 23 23 AST 10 17 15 TBIL 0.2 0.1* 0.2 TPROT 6.0* 5.3* 5.1* EGFR >60 >60 >60 NST/Holcomb: See separate procedure note MEDICATIONS FOR CURRENT ENCOUNTER: SCHEDULED MEDICATIONS: 0.9% NaCl injection 3 mL, Intracatheter, q8h amoxicillin (AMOXIL) tablet 875 mg, Oral, q12h docusate sodium (COLACE) capsule 100 mg, Oral, BID insulin detemir (LEVEMIR) pen 28 Units, Subcutaneous, AT BEDTIME iron polysaccharides (NIFEREX 150) capsule 150 mg, Oral, QDAY ?? vitamin with iron tablet 1 tablet, Oral, QDAY ?? CONTINUOUS MEDICATIONS: PRN MEDICATIONS: Or Or 0.9% NaCl injection 1-10 mL, Intracatheter, PRN acetaminophen (TYLENOL) tablet 650 mg, Oral, q6h PRN calcium carbonate (TUMS) chew tablet 2 tablet, Oral, q4h PRN metoclopramide (REGLAN) injection 10 mg, Intravenous, q6h PRN ondansetron (ZOFRAN) injection 4 mg, Intravenous, q6h PRN polyethylene glycol 3350 (MIRALAX) packet 17 g, Oral, QDAY PRN prochlorperazine (COMPAZINE) suppository 25 mg, Rectal, q12h PRN ?? simethicone (MYLICON) chew tablet 160 mg, Oral, 4X/day - PC & NIGHTLY PRN Assessment/Plan: 23 year old at 33w2d, with 1. Complete Posterior Previa with Vaginal bleeding 1. Patient admitted 11/25 with third bleeding (clot passed in AM) 1. S/p admission on and for bleeding 2. FETU Sono (11/24): posterior/right lateral placenta previa, no bridging vessels and no placental lakes 3. T&S: B+, Ab negative 4. Hgb (11/28): 10.4 5. ANCS on , repeat 11/25-11/26 6. S/p NICU consult 7. Plan: Monitor for further bleeding, C/S at 36 weeks or sooner if clinically indicated. 2. Gestational Diabetes Mellitus 1. GCT 147 2. GTT 97/167/121/138 3. US 11/24: EFW 2214g (81%), AC > 99% 4. On Levemir 28u qHS 5. Sugars: 1. F 100 2. PP B 111 3. PP L 129 4. PP D 135 5. F 96 6. Plan: titrate insulin as needed, may increase Levemir today 3. H/o LTCS x1 1. G1 in 2014 at 34 weeks due to PreE and breech presentation 2. Plan: repeat C/S at 36 weeks 4. H/o PreE 1. BPs: 120s-130s/60-80s in last 24 hours 2. 24hr urine (06/02): 142mg 3. Pr/Cr 0.28 4. CBC/CMP 11/28 wnl 5. Plan: if develops more mild range BPs, will repeat 24 hour urine 5. Tobacco use 1. Encourage cessation 2. Nicotine patch inpatient PRN 6. Sinus vs. Dental Infection (?) 1. Asymptomatic, diagnosed outpatient 2. Continue Amoxicillin x14 days Plan: continue inpatient stay for 3rd bleed in setting of posterior placenta previa. Lianne Flores MD 12/02/2018 6:48 AM Associated attestation - Candace Peacock MD - 12/02/2018 9:53 AM CDT See my note. Candace Peacock MD * To, Juan Church - 12/02/2018 5:09 AM CDT MS4 Antepartum Progress Note Date: 12/02/2018 Hospital Day: 7 Subjective: Cait Mathews is a 23 year old at 33w2d weeks gestation here for management of 3rd episode of bleeding placenta previa. No acute overnight events. No additional bleeding or clots with wiping. Denies abdominal pain. Movement: normal. negative Ctx. negative LOF. negative VB. Objective: Patient Vitals/O2 Sat/CVP in the past 24 hrs: 12/02/18 0018, Temp:98.3 ??F (36.8 ??C), Pulse:77, Resp:28, BP:127/66, SpO2:99 % 12/01/182046, Temp:98.3 ??F (36.8 ??C), Pulse:88, Resp:24, BP:126/76, SpO2:98 % 12/01/18 1600, Temp:98.4 ??F (36.9 ??C), Pulse:82, Resp:18, BP:133/80, SpO2:97 % 12/01/18 1030, Temp:98 ??F (36.7 ??C), Pulse:73, Resp:20, BP:128/77, SpO2:97 % 12/01/18 0553, Temp:98.3 ??F (36.8 ??C), Pulse:65, Resp:18, BP:138/75, SpO2:97 % No intake or output data in the 24 hours ending 12/02/18 0509 Physical Exam: General: alert, cooperative, no distress Lungs: clear to auscultation bilaterally Heart: regular rate and rhythm Abdomen: gravid, NT Extremities: no edema/erythema, non-tender bilaterally NST: See separate note Labs: Recent Labs Component Name 12/01/18 0553 11/28/18 0334 11/25/18 0641 WBC 15.6* 13.7* 12.2* HGB 11.5* 10.4* 11.8* HCT 34.9* 32.4* 35.6* PLTCOUNT 219 214 227 Recent Labs Component Name 11/28/18 0334 11/15/13 0806 11/12/13 1042 SODIUM 137 140 135* POTASSIUM 3.9 4.2 3.8 CHLORIDE 107 108* 103 CO2 21* 22 22 BUN 7 10 10 CREATININE 0.37* 0.36* 0.52 GLUCOSE 104 78 105 CALCIUM 9.0 8.7 8.7 ALBUMIN 3.3* 1.8* 1.9* ALKPHOS 156* 192* 178* ALT 11* 23 23 AST 10 17 15 TBIL 0.2 0.1* 0.2 TPROT 6.0* 5.3* 5.1* EGFR >60 >60 >60 MEDICATIONS FOR CURRENT ENCOUNTER: SCHEDULED MEDICATIONS: 0.9% NaCl injection 3 mL, Intracatheter, q8h amoxicillin (AMOXIL) tablet 875 mg, Oral, q12h docusate sodium (COLACE) capsule 100 mg, Oral, BID insulin detemir (LEVEMIR) pen 28 Units, Subcutaneous, AT BEDTIME iron polysaccharides (NIFEREX 150) capsule 150 mg, Oral, QDAY ?? vitamin with iron tablet 1 tablet, Oral, QDAY ?? CONTINUOUS MEDICATIONS: PRN MEDICATIONS: Or Or 0.9% NaCl injection 1-10 mL, Intracatheter, PRN acetaminophen (TYLENOL) tablet 650 mg, Oral, q6h PRN calcium carbonate (TUMS) chew tablet 2 tablet, Oral, q4h PRN metoclopramide (REGLAN) injection 10 mg, Intravenous, q6h PRN ondansetron (ZOFRAN) injection 4 mg, Intravenous, q6h PRN polyethylene glycol 3350 (MIRALAX) packet 17 g, Oral, QDAY PRN prochlorperazine (COMPAZINE) suppository 25 mg, Rectal, q12h PRN ?? simethicone (MYLICON) chew tablet 160 mg, Oral, 4X/day - PC & NIGHTLY PRN Patient Vitals for the past 24 hrs: Glucose Bedside (mg/dL) 12/01/18 0553 100 mg/dL 12/01/18 1244 111 mg/dL 12/01/18 1453 129 mg/dL 12/01/18 1914 135 mg/dL Assessment: 23 year old at 33w2d who was admitted for bleeding posterior previa. Currently stable. Hospital Day: 7 Will discuss plan with attending at rounds. Third episode of third trimester bleeding with known complete posterior previa. status reassuring on NST x3 yesterday. Currently hemodynamically stable. No s/s of abruption.No additional bleeding. 3rd bleeding this . S/p ANCS 09/25-, rANCS 11/25- S/p T&C x4 Plan: - NST qd or PRN - Delivery: 36WGA by repeat CS or sooner if indicated. gDM FBG still elevated. S/p rANCS, 5 days ago. gDM dx'd by elevated FBS on GTT and AC >99% EFW, 11/24/18: 2214g (81%, AC>99%) vertex KOREY 14 Plan: - Accuchecks + diabetic diet - Current: Levemir 28 qhs - Growth q4w, next 12/22 - BPP weekly Iron deficiency anemia Asymptomatic. Stable Plan: - Nifirex H/o preE Normotensive. No s/s of preE. Previously taking ASA but d/c'd because of placenta previa. U P:C 0.28 11/28/18 24h urine: 142 06/02/18 Plan: - Monitor pressures, if worsening, repeat PIH labs Hx of LTCS x1 Repeat C/S indicated for complete placenta previa Sinus vs. Dental Infection Asymptomatic. Plan: - Continue amoxicillin until 12/02 Supervision of 1. PNC: Dr. Guadarrama 2. Datin wk US 3. PNL: B+/I/-/- NR 4. Pap: 1 year ago, no abnormal paps 5. Hgb elec: normal 6. Genetics: LR NIPT 7. Anatomy US: cleared 8. Tdap administered 9. GCT: 147 GTT: 97/169/121/138 Juan K To 12/02/2018 5:09 AM Associated attestation - Vera Bran MD - 12/02/2018 3:40 PM CDT M Fellow: Agree with above note. This medical student note is for purposes of education. Please see note fromNP/resident/fellow/attending for questions regarding the patient plan. Vera Bran MD * Tawanna Yoo RN - 12/02/2018 12:05 AM CDT Shift summary: Cait Mathews is currently sleeping in bed with significant other sleeping at bedside. Denies any changes from assessment; no vaginal bleeding, cramping, contractions, pelvic pressure, or back pain reported. Vital signs and assessment as charted. Report given to Tasha Prince RN * Candace Peacock MD - 12/01/2018 6:26 PM CDT Teaching Attending Note Hospital Day: 6 I have interviewed and examined the patient, and discussed the assessment and plan of care with theresident/fellow. I agree with the findings and plan of care as outlined in the resident/fellow notes. My findings include: 23 year old G 2 P 1 A 0 female at 33w1d weeks gestation. Patient reports: no bleeding, cramping/contractions or leaking of fluid. Movement: normal. Was napping. Patient Active Problem List Diagnosis Date Noted ??? Vaginal bleeding 11/25/2018 Priority: Not Prioritized ??? Vaginal bleeding during , antepartum 11/03/2018 Priority: Not Prioritized ??? Abnormal O'Cartwright glucose challenge test, antepartum 09/27/2018 Priority: Not Prioritized Needs GTT ??? Evaluate anatomy not seen on prior sonogram Priority: Not Prioritized ??? Vaginal bleeding in , second trimester Priority: Not Prioritized ??? Obesity (BMI 30-39.9) Priority: Not Prioritized ??? Placenta previa without hemorrhage, antepartum Priority: Not Prioritized ??? Cellulitis 08/01/2018 Priority: Not Prioritized ??? Child attention deficit disorder 08/01/2018 Priority: Not Prioritized ??? Depressive disorder 08/01/2018 Priority: Not Prioritized ??? 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 Dysmenorrhea 08/01/2018 Priority: Not Prioritized ??? Ganglion and cyst of synovium, tendon and bursa 08/01/2018 Priority: Not Prioritized ??? Gastroesophageal reflux disease 08/01/2018 Priority: Not Prioritized ??? Hyperhidrosis 08/01/2018 Priority: Not Prioritized ??? Hx of preeclampsia, prior , currently Priority: Not Prioritized ??? Previous delivery, antepartum condition or complication Priority: Not Prioritized ??? Previous delivery, antepartum Priority: Not Prioritized ??? Obesity affecting in third trimester Priority: Not Prioritized ??? Tobacco abuse 11/09/2013 ??? Supervision of high risk , antepartum 11/09/2013 Objective: Temp (24hrs) Max:98.4 ??F (36.9 ??C) BP 133/80 Pulse 82 Temp 98.4 ??F (36.9 ??C) Resp 18 Ht 5' (1.524 m) Wt 202 lb 3.2 oz (91.7 kg) [id number]% BMI 39.49 kg/m2 Physical Exam: General: alert, cooperative, no distress Extremities: no edema Abdomen: gravid, obese, uterus soft, nontender Patient Vitals for the past 30 hrs: Glucose Bedside (mg/dL) 12/01/18 1244 100 mg/dL 12/01/18 0553 100 mg/dL 11/30/18 1836 127 mg/dL 11/30/18 1452 119 mg/dL Recent Labs Component Name 12/01/18 0553 11/28/18 0334 11/25/18 0641 11/04/18 0521 WBC 15.6* 13.7* 12.2* 13.9* RBC 3.84 3.54* 3.94 3.69* HGB 11.5* 10.4* 11.8* 11.2* HCT 34.9* 32.4* 35.6* 33.7* MCV 90.9 91.5 90.4 91.3 MCHC 33.0 32.1 33.1 33.2 PLTCOUNT 219 214 227 213 NEUTPCT 71.7 - 73.7* 72.4 LYMPHPCT 16.9* - 16.7* 17.3* BASOPHILPCT 0.3 - 0.3 0.3 GRANSIMMPCT 4.4* - 2.2* 2.5* NEUTABS 11.20* - 8.96* 10.05* LYMPHABS 2.63 - 2.03 2.40 BASOABS 0.05 - 0.04 0.04 US: AC at 99th percentile, normal fluid. Velamentous cord insertion. Assessment: at Gestational Age 33w1d Placenta previa, S/P 3rd bleed, no bleeding now. GDM. persistently elevated FBS a few days after steroids and despite insulin. Previous CS, no evidence of accreta on last scan. Hx preeclampsia. Nicotine dependence Plan: Continue current management Increase evening Levemir Once daily monitoring. Candace Peacock MD * Raisa Farooq RN - 12/01/2018 5:35 PM CDT Shift Summary: Patient reports positive movement with no contractions, No vaginal bleeding, or back pain. Patient aware to notify Staff of any changes in condition. * Lianne Flores MD - 12/01/2018 8:10 AM CDT R2 Antepartum Progress Note Date: 12/01/2018 Hospital Day: 6 Subjective: Cait Mathews is a 23 year old at 33w1d weeks gestation. There were no acute overnight events. She reports she is doing well. No bleeding overnight. She denies loss of fluid and contractions. She reports normal movement. Denies feeling like her blood sugars were low overnight. Objective: Patient Vitals/O2 Sat/CVP in the past 24 hrs: 12/01/18 0553, Temp:98.3 ??F (36.8 ??C), Pulse:65, Resp:18, BP:138/75, SpO2:97 % 11/30/18 2105, Temp:98 ??F (36.7 ??C), Pulse:74, Resp:18, BP:128/72, SpO2:98 % 11/30/18 1650, Temp:98.2 ??F (36.8 ??C), Pulse:67, Resp:20, BP:135/78, SpO2:99 % No intake or output data in the 24 hours ending 12/01/18 0810 Physical Exam: General: alert, cooperative, no distress Lungs: clear to auscultation bilaterally Heart: regular rate and rhythm Abdomen: gravid, nontender, no palpable contractions Extremities: normal, non-tender bilaterally Labs: Recent Labs Component Name 12/01/18 0553 11/28/18 0334 11/25/18 0641 WBC 15.6* 13.7* 12.2* HGB 11.5* 10.4* 11.8* HCT 34.9* 32.4* 35.6* PLTCOUNT 219 214 227 Recent Labs Component Name 11/28/18 0334 11/15/13 0806 11/12/13 1042 SODIUM 137 140 135* POTASSIUM 3.9 4.2 3.8 CHLORIDE 107 108* 103 CO2 21* 22 22 BUN 7 10 10 CREATININE 0.37* 0.36* 0.52 GLUCOSE 104 78 105 CALCIUM 9.0 8.7 8.7 ALBUMIN 3.3* 1.8* 1.9* ALKPHOS 156* 192* 178* ALT 11* 23 23 AST 10 17 15 TBIL 0.2 0.1* 0.2 TPROT 6.0* 5.3* 5.1* EGFR >60 >60 >60 NST/Holcomb: See separate procedure note MEDICATIONS FOR CURRENT ENCOUNTER: SCHEDULED MEDICATIONS: 0.9% NaCl injection 3 mL, Intracatheter, q8h amoxicillin (AMOXIL) tablet 875 mg, Oral, q12h docusate sodium (COLACE) capsule 100 mg, Oral, BID insulin detemir (LEVEMIR) pen 24 Units, Subcutaneous, AT BEDTIME iron polysaccharides (NIFEREX 150) capsule 150 mg, Oral, QDAY ?? vitamin with iron tablet 1 tablet, Oral, QDAY ?? CONTINUOUS MEDICATIONS: PRN MEDICATIONS: Or Or 0.9% NaCl injection 1-10 mL, Intracatheter, PRN acetaminophen (TYLENOL) tablet 650 mg, Oral, q6h PRN calcium carbonate (TUMS) chew tablet 2 tablet, Oral, q4h PRN metoclopramide (REGLAN) injection 10 mg, Intravenous, q6h PRN ondansetron (ZOFRAN) injection 4 mg, Intravenous, q6h PRN polyethylene glycol 3350 (MIRALAX) packet 17 g, Oral, QDAY PRN prochlorperazine (COMPAZINE) suppository 25 mg, Rectal, q12h PRN ?? simethicone (MYLICON) chew tablet 160 mg, Oral, 4X/day - PC & NIGHTLY PRN Assessment/Plan: 23 year old at 33w1d, with 1. Complete Posterior Previa with Vaginal bleeding 1. Patient admitted 11/25 with third bleeding (clot passed in AM) 1. S/p admission on 09/25- and 11/03- for bleeding 2. FETU Sono (11/24): posterior/right lateral placenta previa, no bridging vessels and no placental lakes 3. T&S: B+, Ab negative 4. Hgb (11/28): 10.4 5. ANCS on 09/25-, repeat 11/25-11/26 6. NICU consult placed 7. Plan: Monitor for further bleeding, C/S at 36 weeks or sooner if clinically indicated. 2. Gestational Diabetes Mellitus 1. GCT 147 2. GTT 97/167/121/138 3. US 11/24: EFW 2214g (81%), AC > 99% 4. Started on Levamir 24u qHS 11/28 5. Sugars: 1. F 100 2. PP B 131 3. PP L 119 4. PP D 127 5. F 100 6. Plan: titrate insulin as needed, may increase Levamir today 3. H/o LTCS x1 1. G1 in 2013 at 34 weeks due to PreE and breech presentation 2. Plan: repeat C/S at 36 weeks 4. H/o PreE 1. BPs: 120s-130s/70s in last 24 hours 2. 24hr urine (06/02): 142mg 3. Pr/Cr 0.28 4. CBC/CMP 11/28 wnl 5. Plan: if develops more mild range BPs, will repeat 24 hour urine 5. Tobacco use 1. Encourage cessation 2. Nicotine patch inpatient PRN 6. Sinus vs. Dental Infection (?) 1. Asymptomatic, diagnosed outpatient 2. Continue Amoxicillin x14 days Plan: continue inpatient stay for 3rd bleed in setting of posterior placenta previa. Lianne Flores MD 12/01/2018 8:10 AM Associated attestation - Candace Peacock MD - 12/01/2018 10:06 PM CDT See my note. Candace Peacock MD * Jahaira Doyle RN - 12/01/2018 6:13 AM CDT Shift summary: Pt resting in bed, reports positive movement. Denies contractions, cramping, headache, backache, LOF, and VB. Ambulating and voiding independently. Labs updated this morning. Diabetic diet, BS stable. Call light within reach and pt encouraged to call nurse with any needs or change in status. * Jahaira Doyle RN - 12/01/2018 6:11 AM CDT Problem: Bleeding Precautions Goal: Excessive bleeding will be minimized Outcome: Ongoing Cait Mathews denies any vag bleeding overnight Problem: Pain Related to Uterine Contractions Alteration in comfort. Goal: Decreased Uterine Activity Outcome: Ongoing Cait Mathews denies feeling any contractions or cramping throughout shift * ToJuan - 12/01/2018 5:16 AM CDT MS4 Antepartum Progress Note Date: 12/01/2018 Hospital Day: 6 Subjective: Cait Mathews is a 23 year old at 33w1d weeks gestation here for management of 3rd episode of bleeding placenta previa. No acute overnight events. No additional bleeding or clots with wiping. Denies abdominal pain. Movement: normal. negative Ctx. negative LOF. negative VB. Objective: Patient Vitals/O2 Sat/CVP in the past 24 hrs: 12/01/18 0553, Temp:98.3 ??F (36.8 ??C), Pulse:65, Resp:18, BP:138/75, SpO2:97 % 11/30/18 2105, Temp:98 ??F (36.7 ??C), Pulse:74, Resp:18, BP:128/72, SpO2:98 % 11/30/18 1650, Temp:98.2 ??F (36.8 ??C), Pulse:67, Resp:20, BP:135/78, SpO2:99 % 11/30/18 0715, Temp:97.8 ??F (36.6 ??C), Pulse:62, Resp:18, BP:134/74, SpO2:98 % No intake or output data in the 24 hours ending 12/01/18 0600 Physical Exam: General: alert, cooperative, no distress Lungs: clear to auscultation bilaterally Heart: regular rate and rhythm Abdomen: gravid, NT Extremities: no edema/erythema, non-tender bilaterally NST: See separate note Labs: Recent Labs Component Name 11/28/18 0334 11/25/18 0641 11/04/18 0521 WBC 13.7* 12.2* 13.9* HGB 10.4* 11.8* 11.2* HCT 32.4* 35.6* 33.7* PLTCOUNT 214 227 213 Recent Labs Component Name 11/28/18 0334 11/15/13 0806 11/12/13 1042 SODIUM 137 140 135* POTASSIUM 3.9 4.2 3.8 CHLORIDE 107 108* 103 CO2 21* 22 22 BUN 7 10 10 CREATININE 0.37* 0.36* 0.52 GLUCOSE 104 78 105 CALCIUM 9.0 8.7 8.7 ALBUMIN 3.3* 1.8* 1.9* ALKPHOS 156* 192* 178* ALT 11* 23 23 AST 10 17 15 TBIL 0.2 0.1* 0.2 TPROT 6.0* 5.3* 5.1* EGFR >60 >60 >60 MEDICATIONS FOR CURRENT ENCOUNTER: SCHEDULED MEDICATIONS: 0.9% NaCl injection 3 mL, Intracatheter, q8h amoxicillin (AMOXIL) tablet 875 mg, Oral, q12h docusate sodium (COLACE) capsule 100 mg, Oral, BID insulin detemir (LEVEMIR) pen 24 Units, Subcutaneous, AT BEDTIME iron polysaccharides (NIFEREX 150) capsule 150 mg, Oral, QDAY ?? vitamin with iron tablet 1 tablet, Oral, QDAY ?? CONTINUOUS MEDICATIONS: PRN MEDICATIONS: Or Or 0.9% NaCl injection 1-10 mL, Intracatheter, PRN acetaminophen (TYLENOL) tablet 650 mg, Oral, q6h PRN calcium carbonate (TUMS) chew tablet 2 tablet, Oral, q4h PRN metoclopramide (REGLAN) injection 10 mg, Intravenous, q6h PRN ondansetron (ZOFRAN) injection 4 mg, Intravenous, q6h PRN polyethylene glycol 3350 (MIRALAX) packet 17 g, Oral, QDAY PRN prochlorperazine (COMPAZINE) suppository 25 mg, Rectal, q12h PRN ?? simethicone (MYLICON) chew tablet 160 mg, Oral, 4X/day - PC & NIGHTLY PRN Patient Vitals for the past 24 hrs: Glucose Bedside (mg/dL) 11/30/18 0607 100 mg/dL 11/30/18 0913 131 mg/dL 11/30/18 1452 119 mg/dL 11/30/18 1836 127 mg/dL 12/01/18 0553 100 mg/dL Assessment: 23 year old at 33w1d who was admitted for bleeding posterior previa. Currently stable. Hospital Day: 6 Will discuss plan with attending at rounds. Third episode of third trimester bleeding with known complete posterior previa. status reassuring on NST x3 yesterday. Currently hemodynamically stable. No s/s of abruption.No additional bleeding. 3rd bleeding this . S/p ANCS 09/25-, rANCS 11/25- S/p T&C x4 Plan: - NST BID or PRN - Delivery: 36WGA by CS or sooner if indicated. gDM FBG still elevated. S/p rANCS, 5 days ago. gDM dx'd by elevated FBS on GTT and AC >99% EFW, 11/24/18: 2214g (81%, AC>99%) vertex KOREY 14 Plan: - Accuchecks + diabetic diet - Current: Levemir 24 qhs - Growth q4w, next 12/22 - BPP weekly Iron deficiency anemia Asymptomatic. Stable Plan: - Nifirex H/o preE Normotensive. No s/s of preE. Previously taking ASA but d/c'd because of placenta previa. U P:C 0.28 11/28/18 24h urine: 142 06/02/18 Plan: - Monitor pressures, if increases consistently, will need repeat 24h U Pr. Hx of LTCS x1 Repeat C/S indicated for complete placenta previa Sinus vs. Dental Infection Asymptomatic. Plan: - Continue amoxicillin until 12/02 Supervision of 1. PNC: Dr. Guadarrama 2. Datin wk US 3. PNL: B+/I/-/- NR 4. Pap: 1 year ago, no abnormal paps 5. Hgb elec: normal 6. Genetics: LR NIPT 7. Anatomy US: cleared 8. Tdap administered 9. GCT: 147 GTT: 97/169/121/138 Juan K To 12/01/2018 6:00 AM Associated attestation - Vera Bran MD - 12/01/2018 2:00 PM CDT [facility] Fellow: Agree with above note. This medical student note is for purposes of education. Please see note fromNP/resident/fellow/attending for questions regarding the patient plan. Vera Bran MD * Charlene Storm RN - 11/30/2018 4:54 PM CDT Shift Summary: Flow sheet assessment unchanged. Reports positive movement. Denies vaginal bleeding/leakage of fluid/pelvic pressure/pain or discomfort. Call light & phone within reach. * Candace Peacock MD - 11/30/2018 3:35 PM CDT Teaching Attending Note Hospital Day: 5 I have interviewed and examined the patient, and discussed the assessment and plan of care with theresident/fellow. I agree with the findings and plan of care as outlined in the resident/fellow notes. My findings include: 23 year old G 2 P 1 A 0 female at 33w0d weeks gestation. Patient reports: no bleeding, cramping/contractions or leaking of fluid. Movement: normal. Patient Active Problem List Diagnosis Date Noted ??? Vaginal bleeding 11/25/2018 Priority: Not Prioritized ??? Vaginal bleeding during , antepartum 11/03/2018 Priority: Not Prioritized ??? Abnormal O'Cartwright glucose challenge test, antepartum 09/27/2018 Priority: Not Prioritized Needs GTT ??? Evaluate anatomy not seen on prior sonogram Priority: Not Prioritized ??? Vaginal bleeding in , second trimester Priority: Not Prioritized ??? Obesity (BMI 30-39.9) Priority: Not Prioritized ??? Placenta previa without hemorrhage, antepartum Priority: Not Prioritized ??? Cellulitis 08/01/2018 Priority: Not Prioritized ??? Child attention deficit disorder 08/01/2018 Priority: Not Prioritized ??? Depressive disorder 08/01/2018 Priority: Not Prioritized ??? 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 Dysmenorrhea 08/01/2018 Priority: Not Prioritized ??? Ganglion and cyst of synovium, tendon and bursa 08/01/2018 Priority: Not Prioritized ??? Gastroesophageal reflux disease 08/01/2018 Priority: Not Prioritized ??? Hyperhidrosis 08/01/2018 Priority: Not Prioritized ??? Hx of preeclampsia, prior , currently Priority: Not Prioritized ??? Previous delivery, antepartum condition or complication Priority: Not Prioritized ??? Previous delivery, antepartum Priority: Not Prioritized ??? Obesity affecting in third trimester Priority: Not Prioritized ??? Tobacco abuse 11/09/2013 ??? Supervision of high risk , antepartum 11/09/2013 Objective: Temp (24hrs) Max:98.3 ??F (36.8 ??C) BP 134/74 Pulse 62 Temp 97.8 ??F (36.6 ??C) Resp 18 Ht 5' (1.524 m) Wt 202 lb 3.2 oz (91.7 kg) [id number]% BMI 39.49 kg/m2 Physical Exam: General: alert, cooperative, no distress Extremities: no edema Abdomen: gravid, obese, uterus soft, nontender Patient Vitals for the past 30 hrs: Glucose Bedside (mg/dL) 11/30/18 0913 131 mg/dL 11/30/18 0607 100 mg/dL 11/29/18 2003 135 mg/dL 11/29/18 1415 107 mg/dL 11/29/18 1210 129 mg/dL Recent Labs Component Name 11/28/18 0334 11/25/18 0641 11/04/18 0521 11/03/18 0543 WBC 13.7* 12.2* 13.9* 15.3* RBC 3.54* 3.94 3.69* 4.13 HGB 10.4* 11.8* 11.2* 12.2 HCT 32.4* 35.6* 33.7* 37.5 MCV 91.5 90.4 91.3 90.8 MCHC 32.1 33.1 33.2 32.5 PLTCOUNT 214 227 213 228 NEUTPCT - 73.7* 72.4 73.7* LYMPHPCT - 16.7* 17.3* 16.0* BASOPHILPCT - 0.3 0.3 0.5 GRANSIMMPCT - 2.2* 2.5* 3.8* NEUTABS - 8.96* 10.05* 11.29* LYMPHABS - 2.03 2.40 2.45 BASOABS - 0.04 0.04 0.08 US: AC at 99th percentile, normal fluid. Velamentous cord insertion. Assessment: at Gestational Age 33w0d Placenta previa, S/P 3rd bleed, no bleeding now. Likely GDM. Steroid induced hyperglycemia. Elevated FBS on GTT and large AC, now with persistently elevated FBS a few days after steroids and despite insulin. Previous CS, no evidence of accreta on last scan. Hx preeclampsia. Nicotine dependence Plan: Continue current management Increase evening Levemir Once daily monitoring. Candace Peacock MD * Jahaira Doyle RN - 11/30/2018 7:15 AM CDT Shift summary: Pt resting in bed, reports positive movement. Denies contractions, cramping, headache, backache, LOF, and VB. Ambulating and voiding independently. Moved to 556 to be closer to OR in case of emergency. Call light within reach and pt encouraged to call nurse with any needs or change in status. * Lianne Flores MD - 11/30/2018 6:30 AM CDT R2 Antepartum Progress Note Date: 11/30/2018 Hospital Day: 5 Subjective: Cait Mathews is a 23 year old at 33w0d weeks gestation. There were no acute overnight events. She reports she is doing well. Did have a small amount of blood tinged discharge overnight but nothing continuous. Has a headache that she always has. She denies loss of fluid and contractions. She reports normal movement. Objective: Patient Vitals/O2 Sat/CVP in the past 24 hrs: 11/30/18 0022, Temp:98.1 ??F (36.7 ??C), Pulse:70, Resp:18, BP:108/66, SpO2:99 % 11/29/18 2000, Temp:98.3 ??F (36.8 ??C), Pulse:81, Resp:18, BP:121/80, SpO2:99 % 11/29/18 1550, Temp:98.2 ??F (36.8 ??C), Pulse:77, Resp:20, BP:123/79, SpO2:100 % 11/29/18 1005, Temp:98.6 ??F (37 ??C), Pulse:72, Resp:18, BP:131/83, SpO2:100 % No intake or output data in the 24 hours ending 11/30/18 0630 Physical Exam: General: alert, cooperative, no distress Lungs: clear to auscultation bilaterally Heart: regular rate and rhythm Abdomen: gravid, nontender, no palpable contractions Extremities: normal, non-tender bilaterally Labs: Recent Labs Component Name 11/28/18 0334 11/25/18 0641 11/04/18 0521 WBC 13.7* 12.2* 13.9* HGB 10.4* 11.8* 11.2* HCT 32.4* 35.6* 33.7* PLTCOUNT 214 227 213 Recent Labs Component Name 11/28/18 0334 11/15/13 0806 11/12/13 1042 SODIUM 137 140 135* POTASSIUM 3.9 4.2 3.8 CHLORIDE 107 108* 103 CO2 21* 22 22 BUN 7 10 10 CREATININE 0.37* 0.36* 0.52 GLUCOSE 104 78 105 CALCIUM 9.0 8.7 8.7 ALBUMIN 3.3* 1.8* 1.9* ALKPHOS 156* 192* 178* ALT 11* 23 23 AST 10 17 15 TBIL 0.2 0.1* 0.2 TPROT 6.0* 5.3* 5.1* EGFR >60 >60 >60 NST/Holcomb: See separate procedure note MEDICATIONS FOR CURRENT ENCOUNTER: SCHEDULED MEDICATIONS: 0.9% NaCl injection 3 mL, Intracatheter, q8h amoxicillin (AMOXIL) tablet 875 mg, Oral, q12h docusate sodium (COLACE) capsule 100 mg, Oral, BID insulin detemir (LEVEMIR) pen 18 Units, Subcutaneous, AT BEDTIME iron polysaccharides (NIFEREX 150) capsule 150 mg, Oral, QDAY ?? vitamin with iron tablet 1 tablet, Oral, QDAY ?? CONTINUOUS MEDICATIONS: PRN MEDICATIONS: Or Or 0.9% NaCl injection 1-10 mL, Intracatheter, PRN acetaminophen (TYLENOL) tablet 650 mg, Oral, q6h PRN calcium carbonate (TUMS) chew tablet 2 tablet, Oral, q4h PRN metoclopramide (REGLAN) injection 10 mg, Intravenous, q6h PRN ondansetron (ZOFRAN) injection 4 mg, Intravenous, q6h PRN polyethylene glycol 3350 (MIRALAX) packet 17 g, Oral, QDAY PRN prochlorperazine (COMPAZINE) suppository 25 mg, Rectal, q12h PRN ?? simethicone (MYLICON) chew tablet 160 mg, Oral, 4X/day - PC & NIGHTLY PRN Assessment/Plan: 23 year old at 33w0d, with 1. Complete Posterior Previa with Vaginal bleeding 1. Patient admitted 11/25 with third bleeding (clot passed in AM) 1. S/p admission on 09/25- and 11/03- for bleeding 2. FETU Sono (11/24): posterior/right lateral placenta previa, no bridging vessels and no placental lakes 3. T&S: B+, Ab negative 4. Hgb (11/28): 10.4 5. ANCS on , repeat 11/25-11/26 6. NICU consult placed 7. Plan: Monitor for further bleeding, C/S at 36 weeks or sooner if clinically indicated. 2. Gestational Diabetes Mellitus 1. GCT 147 2. GTT 97/167/121/138 3. US 11/24: EFW 2214g (81%), AC > 99% 4. Started on Levamir 18u qHS 11/28 5. Sugars: 1. F 100 2. PP B 129 3. PP L 107 4. PP D 135 5. F 100 6. Plan: titrate insulin as needed 3. H/o LTCS x1 1. G1 in 2013 at 34 weeks due to PreE and breech presentation 2. Plan: repeat C/S at 36 weeks 4. H/o PreE 1. BPs: 100s-130s/60s-80s in last 24 hours 2. 24hr urine (1/24): 142mg 3. Pr/Cr 0.28 4. CBC/CMP 11/28 wnl 5. Plan: if develops more mild range BPs, will repeat 24 hour urine 5. Tobacco use 1. Encourage cessation 2. Nicotine patch inpatient PRN 6. Sinus vs. Dental Infection (?) 1. Asymptomatic, diagnosed outpatient 2. Continue Amoxicillin x14 days Plan: continue inpatient stay for 3rd bleed in setting of posterior placenta previa. Lianne Flores MD 11/30/2018 6:30 AM Associated attestation - Candace Peacock MD - 11/30/2018 9:41 PM CDT See my note. Candace Peacock MD * ToJuan - 11/30/2018 5:17 AM CDT MS4 Antepartum Progress Note Date: 11/30/2018 Hospital Day: 5 Subjective: Cait Mathews is a 23 year old at 33w0d weeks gestation here for management of 3rd episode of bleeding placenta previa. No acute overnight events. No additional bleeding or clots with wiping. Denies abdominal pain. Movement: normal. negative Ctx. negative LOF. negative VB. Objective: Patient Vitals/O2 Sat/CVP in the past 24 hrs: 11/30/18 0022, Temp:98.1 ??F (36.7 ??C), Pulse:70, Resp:18, BP:108/66, SpO2:99 % 11/29/18 2000, Temp:98.3 ??F (36.8 ??C), Pulse:81, Resp:18, BP:121/80, SpO2:99 % 11/29/18 1550, Temp:98.2 ??F (36.8 ??C), Pulse:77, Resp:20, BP:123/79, SpO2:100 % 11/29/18 1005, Temp:98.6 ??F (37 ??C), Pulse:72, Resp:18, BP:131/83, SpO2:100 % No intake or output data in the 24 hours ending 11/30/18 0517 Physical Exam: General: alert, cooperative, no distress Lungs: clear to auscultation bilaterally Heart: regular rate and rhythm Abdomen: gravid, NT Extremities: no edema/erythema, non-tender bilaterally NST: See separate note Labs: Recent Labs Component Name 11/28/18 0334 11/25/18 0641 11/04/18 0521 WBC 13.7* 12.2* 13.9* HGB 10.4* 11.8* 11.2* HCT 32.4* 35.6* 33.7* PLTCOUNT 214 227 213 Recent Labs Component Name 11/28/18 0334 11/15/13 0806 11/12/13 1042 SODIUM 137 140 135* POTASSIUM 3.9 4.2 3.8 CHLORIDE 107 108* 103 CO2 21* 22 22 BUN 7 10 10 CREATININE 0.37* 0.36* 0.52 GLUCOSE 104 78 105 CALCIUM 9.0 8.7 8.7 ALBUMIN 3.3* 1.8* 1.9* ALKPHOS 156* 192* 178* ALT 11* 23 23 AST 10 17 15 TBIL 0.2 0.1* 0.2 TPROT 6.0* 5.3* 5.1* EGFR >60 >60 >60 MEDICATIONS FOR CURRENT ENCOUNTER: SCHEDULED MEDICATIONS: 0.9% NaCl injection 3 mL, Intracatheter, q8h amoxicillin (AMOXIL) tablet 875 mg, Oral, q12h docusate sodium (COLACE) capsule 100 mg, Oral, BID insulin detemir (LEVEMIR) pen 18 Units, Subcutaneous, AT BEDTIME iron polysaccharides (NIFEREX 150) capsule 150 mg, Oral, QDAY ?? vitamin with iron tablet 1 tablet, Oral, QDAY ?? CONTINUOUS MEDICATIONS: PRN MEDICATIONS: Or Or 0.9% NaCl injection 1-10 mL, Intracatheter, PRN acetaminophen (TYLENOL) tablet 650 mg, Oral, q6h PRN calcium carbonate (TUMS) chew tablet 2 tablet, Oral, q4h PRN metoclopramide (REGLAN) injection 10 mg, Intravenous, q6h PRN ondansetron (ZOFRAN) injection 4 mg, Intravenous, q6h PRN polyethylene glycol 3350 (MIRALAX) packet 17 g, Oral, QDAY PRN prochlorperazine (COMPAZINE) suppository 25 mg, Rectal, q12h PRN ?? simethicone (MYLICON) chew tablet 160 mg, Oral, 4X/day - PC & NIGHTLY PRN Patient Vitals for the past 24 hrs: Glucose Bedside (mg/dL) 11/29/18 1210 129 mg/dL 11/29/18 1415 107 mg/dL 11/29/182002 135 mg/dL Assessment: 23 year old at 33w0d who was admitted for bleeding posterior previa. Currently stable. Hospital Day: 5 Will discuss plan with attending at rounds. Third episode of third trimester bleeding with known complete posterior previa. status reassuring on NST x3 yesterday. Currently hemodynamically stable. No s/s of abruption.No additional bleeding. 3rd bleeding this . S/p ANCS 09/25-, rANCS 11/25- S/p T&C x4 Plan: - NST BID or PRN - Delivery: 36WGA by CS or sooner if indicated. gDM FBG elevated. S/p rANCS, last 4 days ago. gDM dx'd by elevated FBS on GTT and AC >99% EFW, 11/24/18: 2214g (81%, AC>99%) Plan: - Accuchecks + diabetic diet - Current: Levemir 18 qhs - increase: levemir 20qhs - Growth q4w, next 12/22 - BPP weekly Iron deficiency anemia Asymptomatic. Stable Plan: - Nifirex H/o preE Normotensive. No s/s of preE. Previously taking ASA but d/c'd because of placenta previa. U P:C 0.28 11/28/18 24h urine: 142 06/02/18 Plan: - Monitor pressures, if increases consistently, will need repeat 24h U Pr. Hx of LTCS x1 Repeat C/S indicated for complete placenta previa Sinus vs. Dental Infection Asymptomatic. Plan: - Continue amoxicillin until 12/02 Supervision of 1. PNC: Dr. Guadarrama 2. Datin wk US 3. PNL: B+/I/-/- NR 4. Pap: 1 year ago, no abnormal paps 5. Hgb elec: normal 6. Genetics: LR NIPT 7. Anatomy US: cleared 8. Tdap administered 9. GCT: 147 GTT: 97/169/121/138 Juan K To 11/30/2018 5:17 AM Associated attestation - Vera Bran MD - 11/30/2018 5:11 PM CDT [facility] Fellow: Agree with above note. This medical student note is for purposes of education. Please see note fromNP/resident/fellow/attending for questions regarding the patient plan. Vera Bran MD * Jahaira Doyle, RN - 11/30/2018 2:15 AM CDT Problem: Bleeding Precautions Goal: Excessive bleeding will be minimized Outcome: Ongoing Cait Mathews reported scant pink tinged VD when wiping early in shift, denies currently Problem: Pain Related to Uterine Contractions Alteration in comfort. Goal: Decreased Uterine Activity Outcome: Ongoing Cait Mathews denies feeling any contractions or cramping overnight * Charlene Storm RN - 11/29/2018 6:00 PM CDT Shift Summary: Flow sheet assessment unchanged. Cait is aware to notify staff with any concerns/changes in condition or questions. Reports positive movement. Denies vaginal bleeding/contractions/leakage of fluid/pelvic pressure or pain. * Candace Peacock MD - 11/29/2018 5:37 PM CDT Teaching Attending Note Hospital Day: 4 I have interviewed and examined the patient, and discussed the assessment and plan of care with theresident/fellow. I agree with the findings and plan of care as outlined in the resident/fellow notes. My findings include: 23 year old G 2 P 1 A 0 female at 32w6d weeks gestation. Patient reports: no bleeding, cramping/contractions or leaking of fluid. Movement: normal. Patient Active Problem List Diagnosis Date Noted ??? Vaginal bleeding 11/25/2018 Priority: Not Prioritized ??? Vaginal bleeding during , antepartum 11/03/2018 Priority: Not Prioritized ??? Abnormal O'Cartwright glucose challenge test, antepartum 09/27/2018 Priority: Not Prioritized Needs GTT ??? Evaluate anatomy not seen on prior sonogram Priority: Not Prioritized ??? Vaginal bleeding in , second trimester Priority: Not Prioritized ??? Obesity (BMI 30-39.9) Priority: Not Prioritized ??? Placenta previa without hemorrhage, antepartum Priority: Not Prioritized ??? Cellulitis 08/01/2018 Priority: Not Prioritized ??? Child attention deficit disorder 08/01/2018 Priority: Not Prioritized ??? Depressive disorder 08/01/2018 Priority: Not Prioritized ??? 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 Dysmenorrhea 08/01/2018 Priority: Not Prioritized ??? Ganglion and cyst of synovium, tendon and bursa 08/01/2018 Priority: Not Prioritized ??? Gastroesophageal reflux disease 08/01/2018 Priority: Not Prioritized ??? Hyperhidrosis 08/01/2018 Priority: Not Prioritized ??? Hx of preeclampsia, prior , currently Priority: Not Prioritized ??? Previous delivery, antepartum condition or complication Priority: Not Prioritized ??? Previous delivery, antepartum Priority: Not Prioritized ??? Obesity affecting in third trimester Priority: Not Prioritized ??? Tobacco abuse 11/09/2013 ??? Supervision of high risk , antepartum 11/09/2013 Objective: Temp (24hrs) Max:98.6 ??F (37 ??C) BP 123/79 Pulse 77 Temp 98.2 ??F (36.8 ??C) Resp 20 Ht 5' (1.524 m) Wt 202 lb 3.2 oz (91.7 kg) [id number]% BMI 39.49 kg/m2 Physical Exam: General: alert, cooperative, no distress Extremities: no edema Abdomen: gravid, obese, uterus soft, nontender Patient Vitals for the past 30 hrs: Glucose Bedside (mg/dL) 11/29/18 1415 107 mg/dL 11/29/18 1210 129 mg/dL 11/29/18 0505 100 mg/dL 11/28/18 1925 102 mg/dL 11/28/18 1645 136 mg/dL 11/28/18 1240 144 mg/dL Recent Labs Component Name 11/28/18 0334 11/25/18 0641 11/04/18 0521 11/03/18 0543 WBC 13.7* 12.2* 13.9* 15.3* RBC 3.54* 3.94 3.69* 4.13 HGB 10.4* 11.8* 11.2* 12.2 HCT 32.4* 35.6* 33.7* 37.5 MCV 91.5 90.4 91.3 90.8 MCHC 32.1 33.1 33.2 32.5 PLTCOUNT 214 227 213 228 NEUTPCT - 73.7* 72.4 73.7* LYMPHPCT - 16.7* 17.3* 16.0* BASOPHILPCT - 0.3 0.3 0.5 GRANSIMMPCT - 2.2* 2.5* 3.8* NEUTABS - 8.96* 10.05* 11.29* LYMPHABS - 2.03 2.40 2.45 BASOABS - 0.04 0.04 0.08 US: AC at 99th percentile, normal fluid. Velamentous cord insertion. Assessment: at Gestational Age 32w6d Placenta previa, S/P 3rd bleed, no bleeding now. Likely GDM. Steroid induced hyperglycemia. Elevated FBS on GTT and large AC, now with persistently elevated FBS a few days after steroids and despite insulin. Previous CS, no evidence of accreta on last scan. Hx preeclampsia. Nicotine dependence Plan: Continue current management Continue evening Levemir; if FBS continues elevated, increase dose. Move to room closer to L&D. Once daily monitoring. Candace Peacock MD * Alejandra Galindo, RD/LD - 11/29/2018 10:04 AM CDT CLINICAL NUTRITION ASSESSMENT Assessment: Pt seen d/t diet change to consistent CHO with . Pt has elevated GCT and WNL GTT but has alarge baby and accu -checks are in progress , FBS in 3 hr GTT was elevated. Blood sugars controled,receiving insulin. Pt reports appetite is good, denies GI complaints. PO Intake Average (last 72 hours): % Meal Taken Av.3 % Min: 95 % Max: 100 % Weight gain of 24 lbs in , which is excessive; expect 8-15lbs based on pre-preg wt and current GA. Agree with niferex and PNV+Fe. Skin intact. Bowels moving.Pt states she is not familiar with consistent CHO diet, but understands the numbers in parentheses on At your request menu indicate amount of CHO in menu items. Reviewed meal plan and need for consistent and moderate CHO intake to keep blood sugars WNL. Pt denies questions. Reviewed scheduled snacks, pt is agreeable. Med/Surg History and Clinical Diagnoses: 32w5d complete previa with vaginal bleeding h/o C/s Height: 5' (152.4 cm) Wt Readings from Last 5 Encounters: 11/25/18 202 lb 3.2 oz (91.7 kg) 11/24/18 202 lb (91.6 kg) 11/09/18 203 lb (92.1 kg) 11/03/18 198 lb (89.8 kg) 10/27/18 198 lb (89.8 kg) IBW: 100# 178% IBW BMI: Body mass index is 39.49 kg/(m^2). BMI Range: Severely Obese Class 2 UBW: 178 lb Unintentional weight change: none Current diet order: Consistent Carb Standard Food Allergies: No known food allergies P.O.Intake for the past 48 hrs: % Meal Taken Av % Min: 100 % Max: 100 % % Oral Supplement Intake: No Data Recorded GI Concerns: None Chewing/Swallowing: None Pain affecting intake: No Estimated Needs: KCAL: 1615 (15 kcal/kg pre-preg +400 gestation) Protein (g): 50 (1.1 g/kg IBW) Fluid (ml): 1 ml/kcal Recommended Access Route: PO Labs: Recent Labs Component Name 11/28/18 0334 SODIUM 137 POTASSIUM 3.9 CHLORIDE 107 CO2 21* BUN 7 CREATININE 0.37* GLUCOSE 104 CALCIUM 9.0 ALBUMIN 3.3* ALKPHOS 156* ALT 11* AST 10 TBIL 0.2 TPROT 6.0* EGFR >60 Recent Labs Component Name 09/25/18 1551 GESTDIABSCRN 147* ?? Recent Labs Component Name 10/06/18 1101 GLUCOSEFAST 97* [id number] 167 BUCSHED4GR 121 [id number] 138 ?? No results for input(s): PHOS in the last 39238 hours.No results for input(s): HGBA1C in the last 33327 hours. No results for input(s): PREALBUMIN in the last 21003 hours. Patient Vitals for the past 30 hrs: Glucose Bedside (mg/dL) 11/29/18 0505 100 mg/dL 11/28/18 1925 102 mg/dL 11/28/18 1645 136 mg/dL 11/28/18 1240 144 mg/dL 11/28/18 0505 106 mg/dL PERTINENT MEDICATIONS FOR CURRENT ENCOUNTER: ?? SCHEDULED MEDICATIONS: ?? 0.9% NaCl injection 3 mL, Intracatheter, q8h ?? amoxicillin (AMOXIL) tablet 875 mg, Oral, q12h ?? docusate sodium (COLACE) capsule 100 mg, Oral, BID ?? insulin detemir (LEVEMIR) pen 18 Units, Subcutaneous, AT BEDTIME ?? iron polysaccharides (NIFEREX 150) capsule 150 mg, Oral, QDAY ?? vitamin with iron tablet 1 tablet, Oral, QDAY ?? CONTINUOUS MEDICATIONS: Skin/Wound: WDL Last BM: 11/28/18 Nutrition Care Process (1) Nutrition Diagnostic Statement: Altered nutrition-related lab values related to:: --- () as evidenced by:: elevated laboratory values Nutrition Intervention: Meals and snacks:;Nutrition Education - Content Education needed: Consistent Carb Education provided - Discussed healthy eating during with regards to diabetes. Reviewed recommended servings of fruits, vegetables, whole grains, protein, and calcium rich foods. Recommended CHO meal/snack pattern of 45 gm CHO with breakfast, 60 gm CHO atlunch and dinner, and 15-30 gm CHO per snack and recommended protein with all meals. Encouraged daily exercise of at least 30 minutes, 5 days a week, and discouraged consumption of high-fat/high-calorie foods. Recommended pt consume adequate fluids from water (recommendation of 64 oz/day) and avoidsoda and sugary beverages. Encouraged for 6 months to 1 year and discussed benefits to mother and baby. Expected level of compliance: Fair Following at high nutritional risk. Nutrition recommendation: agree with current nutrition order ?? Continue consistent CHO with diet Monitoring: - po intake, weight, labs Evaluation: Nutrition Goal: Biochemical data will be improved/normalized Nutrition Goal Timeframe: Throughout stay Alejandra Galindo, RD/LD 11/29/2018 10:10 AM Ascom [id number] * Lianne Flores MD - 11/29/2018 9:38 AM CDT R2 Antepartum Progress Note Date: 11/29/2018 Hospital Day: 4 Subjective: Cait Mathews is a 23 year old at 32w6d weeks gestation. There were no acute overnight events. She reports she is doing well with no concerns. Denies feeling like her blood sugar was low overnight. She denies vaginal bleeding, loss of fluid, and contractions. She reports normal movement. Objective: Patient Vitals/O2 Sat/CVP in the past 24 hrs: 11/29/18 0505, Temp:98.3 ??F (36.8 ??C), Pulse:74, Resp:16, BP:134/82, SpO2:96 % 11/29/18 0100, Temp:98.1 ??F (36.7 ??C), Pulse:99, Resp:18, BP:121/65, SpO2:99 % 11/28/182034, Temp:98.2 ??F (36.8 ??C), Pulse:85, Resp:18, BP:137/82, SpO2:97 % 11/28/18 1645, Pulse:89, Resp:18, BP:154/79, SpO2:100 % 11/28/18 1240, Pulse:87, Resp:18, BP:138/88 11/28/18 1010, Temp:98 ??F (36.7 ??C), Pulse:77, Resp:18, BP:131/84, SpO2:98 % Intake/Output Summary (Last 24 hours) at 11/29/18 0938 Last data filed at 11/28/182034 Gross per 24 hour Intake: 550 ml Output: 0 ml Net : 550 ml Physical Exam: General: alert, cooperative, no distress Lungs: clear to auscultation bilaterally Heart: regular rate and rhythm Abdomen: gravid, nontender, no palpable contractions Extremities: normal, non-tender bilaterally Labs: Recent Labs Component Name 11/28/18 0334 11/25/18 0641 11/04/18 0521 WBC 13.7* 12.2* 13.9* HGB 10.4* 11.8* 11.2* HCT 32.4* 35.6* 33.7* PLTCOUNT 214 227 213 Recent Labs Component Name 11/28/18 0334 11/15/13 0806 11/12/13 1042 SODIUM 137 140 135* POTASSIUM 3.9 4.2 3.8 CHLORIDE 107 108* 103 CO2 21* 22 22 BUN 7 10 10 CREATININE 0.37* 0.36* 0.52 GLUCOSE 104 78 105 CALCIUM 9.0 8.7 8.7 ALBUMIN 3.3* 1.8* 1.9* ALKPHOS 156* 192* 178* ALT 11* 23 23 AST 10 17 15 TBIL 0.2 0.1* 0.2 TPROT 6.0* 5.3* 5.1* EGFR >60 >60 >60 NST/Holcomb: See separate procedure note MEDICATIONS FOR CURRENT ENCOUNTER: SCHEDULED MEDICATIONS: 0.9% NaCl injection 3 mL, Intracatheter, q8h amoxicillin (AMOXIL) tablet 875 mg, Oral, q12h docusate sodium (COLACE) capsule 100 mg, Oral, BID insulin detemir (LEVEMIR) pen 18 Units, Subcutaneous, AT BEDTIME iron polysaccharides (NIFEREX 150) capsule 150 mg, Oral, QDAY ?? vitamin with iron tablet 1 tablet, Oral, QDAY ?? CONTINUOUS MEDICATIONS: PRN MEDICATIONS: Or Or 0.9% NaCl injection 1-10 mL, Intracatheter, PRN acetaminophen (TYLENOL) tablet 650 mg, Oral, q6h PRN calcium carbonate (TUMS) chew tablet 2 tablet, Oral, q4h PRN metoclopramide (REGLAN) injection 10 mg, Intravenous, q6h PRN ondansetron (ZOFRAN) injection 4 mg, Intravenous, q6h PRN polyethylene glycol 3350 (MIRALAX) packet 17 g, Oral, QDAY PRN prochlorperazine (COMPAZINE) suppository 25 mg, Rectal, q12h PRN ?? simethicone (MYLICON) chew tablet 160 mg, Oral, 4X/day - PC & NIGHTLY PRN Assessment/Plan: 23 year old at 32w6d, with 1. Complete Posterior Previa with Vaginal bleeding 1. Patient admitted 11/25 with third bleeding (clot passed in AM) 1. S/p admission on and for bleeding 2. FETU Sono (11/24): posterior/right lateral placenta previa, no bridging vessels and no placental lakes 3. T&S: B+, Ab negative 4. Hgb (11/28): 10.4 5. ANCS on , repeat 11/25-11/26 6. NICU consult placed 7. Plan: Monitor for further bleeding, C/S at 36 weeks or sooner if clinically indicated. 2. Gestational Diabetes Mellitus 1. GCT 147 2. GTT 97/167/121/138 3. US 11/24: EFW 2214g (81%), AC > 99% 4. Started on Levamir 18u qHS 11/28 5. Sugars: 1. F 100 this AM 6. Plan: titrate insulin as needed 3. H/o LTCS x1 1. G1 in 2013 at 34 weeks due to PreE and breech presentation 2. Plan: repeat C/S at 36 weeks 4. H/o PreE 1. BPs: 100s-130s/60s-80s in last 24 hours, single 154/79 2. 24hr urine (06/02): 142mg 3. Pr/Cr 0.28 4. CBC/CMP 11/28 wnl 5. Plan: may repeat 24 hour urine today 5. Tobacco use 1. Encourage cessation 2. Nicotine patch inpatient PRN 6. Sinus vs. Dental Infection (?) 1. Asymptomatic, diagnosed outpatient 2. Continue Amoxicillin x14 days Plan: continue inpatient stay for 3rd bleed in setting of posterior placenta previa. Lianne Flores MD 11/29/2018 9:38 AM Associated attestation - Candace Peacock MD - 11/29/2018 10:25 PM CDT See my note. Candace Peacock MD * Martha Pineda RN - 11/29/2018 5:52 AM CDT Shift summary Patient is alert and oriented and up ad rafa. VSS and afebrile. BSS. No complaints of contractions, cramping, backaches, pelvic pressure, abdominal tenderness, bleeding or LOF. EFM 140-160 with accelerations, no decels and no contractions. Pt has signed an AMA form to go off floor to smoke. Will continue to monitor. Call light within reach. * Juan Shabazz - 11/29/2018 5:01 AM CDT MS4 Antepartum Progress Note Date: 11/29/2018 Hospital Day: 4 Subjective: Cait Mathews is a 23 year old at 32w6d weeks gestation here for management of 3rd episode of bleeding placenta previa. No acute overnight events. No additional bleeding or clots with wiping. Denies abdominal pain. Movement: normal. negative Ctx. negative LOF. negative VB. Objective: Patient Vitals/O2 Sat/CVP in the past 24 hrs: 11/29/18 1005, Temp:98.6 ??F (37 ??C), Pulse:72, Resp:18, BP:131/83, SpO2:100 % 11/29/18 0505, Temp:98.3 ??F (36.8 ??C), Pulse:74, Resp:16, BP:134/82, SpO2:96 % 11/29/18 0100, Temp:98.1 ??F (36.7 ??C), Pulse:99, Resp:18, BP:121/65, SpO2:99 % 11/28/18 2035, Temp:98.2 ??F (36.8 ??C), Pulse:85, Resp:18, BP:137/82, SpO2:97 % 11/28/18 1645, Pulse:89, Resp:18, BP:154/79, SpO2:100 % 11/28/18 1240, Pulse:87, Resp:18, BP:138/88 Intake/Output Summary (Last 24 hours) at 11/29/18 1053 Last data filed at 11/28/182034 Gross per 24 hour Intake: 550 ml Output: 0 ml Net : 550 ml Physical Exam: General: alert, cooperative, no distress Lungs: clear to auscultation bilaterally Heart: regular rate and rhythm Abdomen: gravid, NT Extremities: no edema/erythema, non-tender bilaterally NST: See separate note Labs: Recent Labs Component Name 11/28/18 0334 11/25/18 0641 11/04/18 0521 WBC 13.7* 12.2* 13.9* HGB 10.4* 11.8* 11.2* HCT 32.4* 35.6* 33.7* PLTCOUNT 214 227 213 Recent Labs Component Name 11/28/18 0334 11/15/13 0806 11/12/13 1042 SODIUM 137 140 135* POTASSIUM 3.9 4.2 3.8 CHLORIDE 107 108* 103 CO2 21* 22 22 BUN 7 10 10 CREATININE 0.37* 0.36* 0.52 GLUCOSE 104 78 105 CALCIUM 9.0 8.7 8.7 ALBUMIN 3.3* 1.8* 1.9* ALKPHOS 156* 192* 178* ALT 11* 23 23 AST 10 17 15 TBIL 0.2 0.1* 0.2 TPROT 6.0* 5.3* 5.1* EGFR >60 >60 >60 MEDICATIONS FOR CURRENT ENCOUNTER: SCHEDULED MEDICATIONS: 0.9% NaCl injection 3 mL, Intracatheter, q8h amoxicillin (AMOXIL) tablet 875 mg, Oral, q12h docusate sodium (COLACE) capsule 100 mg, Oral, BID insulin detemir (LEVEMIR) pen 18 Units, Subcutaneous, AT BEDTIME iron polysaccharides (NIFEREX 150) capsule 150 mg, Oral, QDAY ?? vitamin with iron tablet 1 tablet, Oral, QDAY ?? CONTINUOUS MEDICATIONS: PRN MEDICATIONS: Or Or 0.9% NaCl injection 1-10 mL, Intracatheter, PRN acetaminophen (TYLENOL) tablet 650 mg, Oral, q6h PRN calcium carbonate (TUMS) chew tablet 2 tablet, Oral, q4h PRN metoclopramide (REGLAN) injection 10 mg, Intravenous, q6h PRN ondansetron (ZOFRAN) injection 4 mg, Intravenous, q6h PRN polyethylene glycol 3350 (MIRALAX) packet 17 g, Oral, QDAY PRN prochlorperazine (COMPAZINE) suppository 25 mg, Rectal, q12h PRN ?? simethicone (MYLICON) chew tablet 160 mg, Oral, 4X/day - PC & NIGHTLY PRN Patient Vitals for the past 24 hrs: Glucose Bedside (mg/dL) 11/28/18 1240 144 mg/dL 11/28/18 1645 136 mg/dL 11/28/18 1925 102 mg/dL 11/29/18 0505 100 mg/dL Assessment: 23 year old at 32w6d who was admitted for bleeding posterior previa. Currently stable. Hospital Day: 4 Will discuss plan with attending at rounds. Third episode of third trimester bleeding with known complete posterior previa. status reassuring on NST x3 yesterday. Currently hemodynamically stable. No s/s of abruption.No additional bleeding. 3rd bleeding this . S/p ANCS 09/25-, rANCS 11/25- S/p T&C x4 Plan: - NST TID - Delivery: 36WGA by CS or sooner if indicated. gDM FBG elevated. S/p rANCS, last 3 days ago. S/p EFW, 11/24/18: 2214g (81%, AC>99%) S/p gDM dx'd by elevated FBS on GTT and AC >99% Plan: - Accuchecks + diabetic diet - Current: Levemir 18 qhs - increase: levemir 20qhs - Growth q4w, next 12/22 - BPP weekly H/o preE Normotensive. No s/s of preE. Previously taking ASA but d/c'd because of placenta previa. 24h urine: 142 06/02/18 Plan: - Monitor pressures Hx of LTCS x1 Repeat C/S indicated for complete placenta previa Sinus vs. Dental Infection Asymptomatic. Plan: - Continue amoxicillin Supervision of 1. PNC: Dr. Guadarrama 2. Datin wk US 3. PNL: B+/I/-/- NR 4. Pap: 1 year ago, no abnormal paps 5. Hgb elec: normal 6. Genetics: LR NIPT 7. Anatomy US: cleared 8. Tdap administered 9. GCT: 147 GTT: 97/169/121/138 Juan K To 11/29/2018 10:53 AM Associated attestation - Vera Bran MD - 11/29/2018 8:12 PM CDT M Fellow: Agree with above note. This medical student note is for purposes of education. Please see note fromNP/resident/fellow/attending for questions regarding the patient plan. Vera Bran MD * Martha Pineda RN - 11/28/2018 11:49 PM CDT Problem: Bleeding Precautions Goal: Excessive bleeding will be minimized Outcome: Ongoing No bleeding at this time. Will continue to monitor. Goal: Precautionary measures taken to prevent bleeding Outcome: Ongoing Fluids, [place] swabs, iv kit, and units of blood on hold. Problem: Pain Related to Uterine Contractions Alteration in comfort. Goal: Decreased Uterine Activity Outcome: Ongoing No contractions at this time. * Candace Peacock MD - 11/28/2018 3:19 PM CDT Teaching Attending Note Hospital Day: 3 I have interviewed and examined the patient, and discussed the assessment and plan of care with theresident/fellow. I agree with the findings and plan of care as outlined in the resident/fellow notes. My findings include: 23 year old G 2 P 1 A 0 female at 32w5d weeks gestation. Patient reports: no bleeding, cramping/contractions or leaking of fluid. Movement: normal. Patient Active Problem List Diagnosis Date Noted ??? Vaginal bleeding 11/25/2018 Priority: Not Prioritized ??? Vaginal bleeding during , antepartum 11/03/2018 Priority: Not Prioritized ??? Abnormal O'Cartwright glucose challenge test, antepartum 09/27/2018 Priority: Not Prioritized Needs GTT ??? Evaluate anatomy not seen on prior sonogram Priority: Not Prioritized ??? Vaginal bleeding in , second trimester Priority: Not Prioritized ??? Obesity (BMI 30-39.9) Priority: Not Prioritized ??? Placenta previa without hemorrhage, antepartum Priority: Not Prioritized ??? Cellulitis 08/01/2018 Priority: Not Prioritized ??? Child attention deficit disorder 08/01/2018 Priority: Not Prioritized ??? Depressive disorder 08/01/2018 Priority: Not Prioritized ??? 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 Dysmenorrhea 08/01/2018 Priority: Not Prioritized ??? Ganglion and cyst of synovium, tendon and bursa 08/01/2018 Priority: Not Prioritized ??? Gastroesophageal reflux disease 08/01/2018 Priority: Not Prioritized ??? Hyperhidrosis 08/01/2018 Priority: Not Prioritized ??? Hx of preeclampsia, prior , currently Priority: Not Prioritized ??? Previous delivery, antepartum condition or complication Priority: Not Prioritized ??? Previous delivery, antepartum Priority: Not Prioritized ??? Obesity affecting in third trimester Priority: Not Prioritized ??? Tobacco abuse 11/09/2013 ??? Supervision of high risk , antepartum 11/09/2013 Objective: Temp (24hrs) Max:98.5 ??F (36.9 ??C) BP 138/88 Pulse 87 Temp 98 ??F (36.7 ??C) Resp 18 Ht 5' (1.524 m) Wt 202 lb 3.2 oz (91.7 kg) SpO2 98% BMI 39.49 kg/m2 Physical Exam: General: alert, cooperative, no distress Extremities: no edema Abdomen: gravid, obese, uterus soft, nontender Patient Vitals for the past 30 hrs: Glucose Bedside (mg/dL) 11/28/18 1240 144 mg/dL 11/28/18 0505 106 mg/dL 11/27/18 1332 117 mg/dL Recent Labs Component Name 11/28/18 0334 11/25/18 0641 11/04/18 0521 11/03/18 0543 WBC 13.7* 12.2* 13.9* 15.3* RBC 3.54* 3.94 3.69* 4.13 HGB 10.4* 11.8* 11.2* 12.2 HCT 32.4* 35.6* 33.7* 37.5 MCV 91.5 90.4 91.3 90.8 MCHC 32.1 33.1 33.2 32.5 PLTCOUNT 214 227 213 228 NEUTPCT - 73.7* 72.4 73.7* LYMPHPCT - 16.7* 17.3* 16.0* BASOPHILPCT - 0.3 0.3 0.5 GRANSIMMPCT - 2.2* 2.5* 3.8* NEUTABS - 8.96* 10.05* 11.29* LYMPHABS - 2.03 2.40 2.45 BASOABS - 0.04 0.04 0.08 US: AC at 99th percentile, normal fluid. Velamentous cord insertion. Assessment: at Gestational Age 32w5d Placenta previa, S/P 3rd bleed Elevated FBS on GTT and large AC, now with persistently elevated FBS a few days after steroids. Concerning for GDM. Previous CS, no evidence of accreta on last scan. Hx preeclampsia. Nicotine dependence Plan: Continue current management Start evening Yola Peacock MD * Ksenia Mg I - 11/28/2018 1:57 PM CDT CLINICAL NUTRITION Pt screened per nutrition Leveling of Care protocol: and not here to deliver. She is knownto me from a previous admission. Appetite and intake are good . No GI complaints , bowels are moving . She wanted an HS : ham and cheese sandwich. She reports an elevated GCT and WNL GTT but has a large baby and accu -checks are in progress , FBS in 3 hr GTT was elevated . Gestational Age: 32w5d Med/Surg History and Clinical Diagnoses: 32w5d complete previa with vaginal bleeding h/o C/s Height: 5' (152.4 cm) Weight: 202 lb 3.2 oz (91.7 kg) Pre- Weight: 178 lb (80.7 kg) Pre- BMI: 34.84 Patient Vitals for the past 30 hrs: Glucose Bedside (mg/dL) 11/28/18 1240 144 mg/dL 11/28/18 0505 106 mg/dL 11/27/18 1332 117 mg/dL 11/27/18 0919 119 mg/dL Recent Labs Component Name 11/28/18 0334 11/25/18 0641 11/04/18 0521 HGB 10.4* 11.8* 11.2* HCT 32.4* 35.6* 33.7* Agree with supplementation of PNV + and Niferex. Recent Labs Component Name 09/25/18 1551 GESTDIABSCRN 147* Recent Labs Component Name 10/06/18 1101 GLUCOSEFAST 97* [id number] 167 [id number] 121 [id number] 138 A woman admitted at 32w5d with Estimated Date of Delivery: 01/18/19. Weight gain of 24 # which is more than the expected , ideal for GA and BMI is 8- 15 # Prepregnancy BMI indicates Severely obese class 3 . Skin/Wound: WDL. Appetite : good Last BM : 11-27-18 Diet Order:Current diet order: Regular Food Allergies: No known food allergies P.O.intake for past 48 hours: % Meal Taken Av % Min: 100 % Max: 100 % Nutrition recommendation: agree with current nutrition order Education needed: ; Education provided Expected level of compliance: Good Pt was provided [facility] educational material Nutrition and , Food for a Healthy Baby .Discussed healthy eating during . Reviewed recommended servings of fruits, vegetables, whole grains, lean protein, and low fat calcium rich foods. Discouraged consumption of high-fat/high-calorie foods. Including food safety for with list of foods to limit and avoid . Recommended pt consume adequate fluids from water. Discussed weight gain goals and tips to slow weight gain if needed .Encouraged for 6 months to 1 year and discussed benefits to mother and baby. Will follow per low nutritional risk protocol. Ksenia Mg DTR 11/28/2018 2:03 PM Ascom [id number] * Elizabeth Machuca RN - 11/28/2018 7:39 AM CDT Shift Summary: Cait VSS, pt denies cramping, contractions, LOF, vaginal bleeding. Pt reports good movement. Pt c/o back pain Flexeril given. * Lianne Flores MD - 11/28/2018 7:36 AM CDT R2 Antepartum Progress Note Date: 11/28/2018 Hospital Day: 3 Subjective: Cait Mathews is a 23 year old at 32w5d weeks gestation. There were no acute overnight events. She reports she is doing well with no concerns. She denies vaginal bleeding, loss of fluid, and contractions. She reports normal movement. Objective: Patient Vitals for the past 24 hrs: Temp Pulse Resp BP SpO2 11/28/18 0505 98.3 ??F (36.8 ??C) 86 15 113/63 100 % 11/27/18 2318 98.2 ??F (36.8 ??C) 70 16 141/82 97 % 11/27/18 2050 98.5 ??F (36.9 ??C) 79 18 132/74 98 % 11/27/18 1744 98.1 ??F (36.7 ??C) 87 20 131/74 99 % 11/27/18 0830 98.3 ??F (36.8 ??C) 95 17 124/70 95 % No intake or output data in the 24 hours ending 11/28/18 0736 Physical Exam: General: alert, cooperative, no distress Lungs: clear to auscultation bilaterally Heart: regular rate and rhythm Abdomen: gravid, nontender, no palpable contractions Extremities: normal, non-tender bilaterally Labs: Recent Labs Component Name 11/28/18 0334 11/25/18 0641 11/04/18 0521 WBC 13.7* 12.2* 13.9* HGB 10.4* 11.8* 11.2* HCT 32.4* 35.6* 33.7* PLTCOUNT 214 227 213 Recent Labs Component Name 11/28/18 0334 11/15/13 0806 07/06/14 1042 SODIUM 137 140 135* POTASSIUM 3.9 4.2 3.8 CHLORIDE 107 108* 103 CO2 21* 22 22 BUN 7 10 10 CREATININE 0.37* 0.36* 0.52 GLUCOSE 104 78 105 CALCIUM 9.0 8.7 8.7 ALBUMIN 3.3* 1.8* 1.9* ALKPHOS 156* 192* 178* ALT 11* 23 23 AST 10 17 15 TBIL 0.2 0.1* 0.2 TPROT 6.0* 5.3* 5.1* EGFR >60 >60 >60 NST/Holcomb: See separate procedure note MEDICATIONS FOR CURRENT ENCOUNTER: ?? SCHEDULED MEDICATIONS: ?? 0.9% NaCl injection 3 mL, Intracatheter, q8h ?? amoxicillin (AMOXIL) tablet 875 mg, Oral, q12h ?? docusate sodium (COLACE) capsule 100 mg, Oral, BID ?? iron polysaccharides (NIFEREX 150) capsule 150 mg, Oral, QDAY ?? vitamin with iron tablet 1 tablet, Oral, QDAY ?? [COMPLETED] cyclobenzaprine (FLEXERIL) tablet 5 mg, Oral, Once ?? CONTINUOUS MEDICATIONS: ?? PRN MEDICATIONS: ?? Or ?? Or ?? 0.9% NaCl injection 1-10 mL, Intracatheter, PRN ?? acetaminophen (TYLENOL) tablet 650 mg, Oral, q6h PRN ?? calcium carbonate (TUMS) chew tablet 2 tablet, Oral, q4h PRN ?? metoclopramide (REGLAN) injection 10 mg, Intravenous, q6h PRN ?? ondansetron (ZOFRAN) injection 4 mg, Intravenous, q6h PRN ?? polyethylene glycol 3350 (MIRALAX) packet 17 g, Oral, QDAY PRN ?? prochlorperazine (COMPAZINE) suppository 25 mg, Rectal, q12h PRN ?? simethicone (MYLICON) chew tablet 160 mg, Oral, 4X/day - PC & NIGHTLY PRN Assessment/Plan: 23 year old at 32w5d, with 1. Complete Posterior Previa with Vaginal bleeding 1. Patient admitted 11/25 with third bleeding (clot passed in AM) 2. FETU Sono (11/24): posterior/right lateral placenta previa, no bridging vessels and no placental lakes 3. T&S: B+, Ab negative 4. SSE: bright red??blood seen in vaginal vault, with small dark red clot within the external os, external os appeared to be closed 5. Hgb (11/28): 10.4 6. S/p admission on and for bleeding 7. ANCS on , repeat 11/25-11/26 1. Accuchecks: 106-150 in last 24 hours 8. NICU consult placed 9. Plan: Monitor for further bleeding, C/S at 36 weeks or sooner if clinically indicated. Continue to monitor Accuchecks. 2. H/o LTCS x1 1. G1 in 2013 at 34 weeks due to PreE and breech presentation 2. Plan: repeat C/S at 36 weeks 3. H/o PreE 1. Patient asymptomatic 2. BPs: 100s-130s/60s-80s 3. 24hr urine (06/02): 142mg 4. Plan: continue to monitor, re-evaluate PRN 4. Tobacco use 1. Encourage cessation 2. Nicotine patch inpatient PRN 5. Sinus vs. Dental Infection (?) 1. Asymptomatic, diagnosed outpatient 2. Continue Amoxicillin x14 days Plan: continue inpatient stay for 3rd bleed in setting of posterior placenta previa. Lianne Flores MD 11/28/2018 7:36 AM Associated attestation - Candace Peacock MD - 11/28/2018 9:20 PM CDT See my note. Candace Peacock MD * ToJuan - 11/28/2018 6:16 AM CDT MS4 Antepartum Progress Note Date: 11/28/2018 Hospital Day: 3 Subjective: Cait Mathews is a 23 year old at 32w5d weeks gestation here for management of 3rd episode of bleeding placenta previa. No acute overnight events. No additional bleeding or clots with wiping. Denies abdominal pain. Movement: normal. negative Ctx. negative LOF. negative VB. Objective: Patient Vitals/O2 Sat/CVP in the past 24 hrs: 11/28/18 0505, Temp:98.3 ??F (36.8 ??C), Pulse:86, Resp:15, BP:113/63, SpO2:100 % 11/27/18 2318, Temp:98.2 ??F (36.8 ??C), Pulse:70, Resp:16, BP:141/82, SpO2:97 % 11/27/18 2050, Temp:98.5 ??F (36.9 ??C), Pulse:79, Resp:18, BP:132/74, SpO2:98 % 11/27/18 1744, Temp:98.1 ??F (36.7 ??C), Pulse:87, Resp:20, BP:131/74, SpO2:99 % 11/27/18 0830, Temp:98.3 ??F (36.8 ??C), Pulse:95, Resp:17, BP:124/70, SpO2:95 % No intake or output data in the 24 hours ending 11/28/18 0616 Physical Exam: General: alert, cooperative, no distress Lungs: clear to auscultation bilaterally Heart: regular rate and rhythm Abdomen: gravid, NT Extremities: no edema/erythema, non-tender bilaterally NST: See separate note Labs: Recent Labs Component Name 11/28/18 0334 11/25/18 0641 11/04/18 0521 WBC 13.7* 12.2* 13.9* HGB 10.4* 11.8* 11.2* HCT 32.4* 35.6* 33.7* PLTCOUNT 214 227 213 Recent Labs Component Name 11/28/18 0334 11/15/13 0806 11/12/13 1042 SODIUM 137 140 135* POTASSIUM 3.9 4.2 3.8 CHLORIDE 107 108* 103 CO2 21* 22 22 BUN 7 10 10 CREATININE 0.37* 0.36* 0.52 GLUCOSE 104 78 105 CALCIUM 9.0 8.7 8.7 ALBUMIN 3.3* 1.8* 1.9* ALKPHOS 156* 192* 178* ALT 11* 23 23 AST 10 17 15 TBIL 0.2 0.1* 0.2 TPROT 6.0* 5.3* 5.1* EGFR >60 >60 >60 MEDICATIONS FOR CURRENT ENCOUNTER: SCHEDULED MEDICATIONS: 0.9% NaCl injection 3 mL, Intracatheter, q8h amoxicillin (AMOXIL) tablet 875 mg, Oral, q12h docusate sodium (COLACE) capsule 100 mg, Oral, BID iron polysaccharides (NIFEREX 150) capsule 150 mg, Oral, QDAY vitamin with iron tablet 1 tablet, Oral, QDAY ?? [COMPLETED] cyclobenzaprine (FLEXERIL) tablet 5 mg, Oral, Once ?? CONTINUOUS MEDICATIONS: PRN MEDICATIONS: Or Or 0.9% NaCl injection 1-10 mL, Intracatheter, PRN acetaminophen (TYLENOL) tablet 650 mg, Oral, q6h PRN calcium carbonate (TUMS) chew tablet 2 tablet, Oral, q4h PRN metoclopramide (REGLAN) injection 10 mg, Intravenous, q6h PRN ondansetron (ZOFRAN) injection 4 mg, Intravenous, q6h PRN polyethylene glycol 3350 (MIRALAX) packet 17 g, Oral, QDAY PRN prochlorperazine (COMPAZINE) suppository 25 mg, Rectal, q12h PRN ?? simethicone (MYLICON) chew tablet 160 mg, Oral, 4X/day - PC & NIGHTLY PRN Assessment: 23 year old at 32w5d who was admitted for bleeding posterior previa. Currently stable. Hospital Day: 3 Will discuss plan with attending at rounds. Third episode of third trimester bleeding with known complete posterior previa. status reassuring on NST x3 yesterday. Currently hemodynamically stable. No s/s of abruption.No additional bleeding. 3rd bleeding this . S/p ANCS 09/25-, rANCS 11/25- S/p T&C x4 EFW, 11/24/18: 2214g (81%) Plan: - NST TID - Delivery: 36WGA by CS or sooner if indicated. H/o preE Normotensive. No s/s of preE. Previously taking ASA but d/c'd because of placenta previa. 24h urine: 142 06/02/18 Plan: - Monitor pressures Hx of LTCS x1 Repeat C/S indicated for complete placenta previa Sinus vs. Dental Infection Asymptomatic. Plan: - Continue amoxicillin Supervision of 1. PNC: Dr. Guadarrama 2. Datin wk US 3. PNL: B+/I/-/- NR 4. Pap: 1 year ago, no abnormal paps 5. Hgb elec: normal 6. Genetics: LR NIPT 7. Anatomy US: cleared 8. Tdap administered 9. GCT: 147 GTT: 97/169/121/138 Juan K To 11/28/2018 6:16 AM Associated attestation - Vera Bran MD - 11/28/2018 8:10 PM CDT MFM Fellow: Agree with above note. This medical student note is for purposes of education. Please see note fromNP/resident/fellow/attending for questions regarding the patient plan. Vera Bran MD * Elizabeth Machuca RN - 11/28/2018 12:59 AM CDT Problem: Bleeding Precautions Goal: Excessive bleeding will be minimized Outcome: Ongoing Cait denies vaginal bleeding. Pt aware to notify RN if vaginal bleeding occurs. Problem: Pain Related to Uterine Contractions Alteration in comfort. Goal: Decreased Uterine Activity Outcome: Ongoing Cait VSS, pt denies cramping, contractions, LOF, vaginal bleeding. Pt reports good movement. Pt c/o back pain Flexeril given. * Reema Moreno MD - 11/27/2018 11:05 AM CDT R2 Progress Note Notified by RN Keshia of small dark red, dime-sized flakes noted by pt when using restroom. No activeVB. No ctx, LOF. +FM. Otherwise feels well. SSE: no blood in vault, cl per vis Suspect this was old blood clearing from vault. Continue current mgt. Reema Moreno MD 11/27/2018 11:05 AM * Amadou Roberts MD - 11/27/2018 7:37 AM CDT R3 Antepartum Progress Note Date: 11/27/2018 Hospital Day: 2 Subjective: Cait Mathews is a 23 year old at 32w4d weeks gestation. There were no acute overnight events. She reports she is overall feeling fine, just wishes she could go home but understands the importance of being in the hospital at this time. She denies vaginal bleeding, loss of fluid, and contractions. She reports normal movement. Objective: Patient Vitals/O2 Sat/CVP in the past 24 hrs: 11/27/18 0552, Temp:98 ??F (36.7 ??C), Pulse:92, Resp:16, BP:102/61, SpO2:95 % 11/26/18 2303, Temp:98 ??F (36.7 ??C), Pulse:98, Resp:16, BP:119/63, SpO2:97 % 11/26/18 1925, Temp:98.2 ??F (36.8 ??C), Resp:16, BP:127/76, SpO2:100 % 11/26/18 1655, SpO2:97 % 11/26/18 1651, Temp:98.9 ??F (37.2 ??C), Resp:20, BP:126/64 11/26/18 1130, SpO2:99 % 11/26/18 1129, BP:146/88 11/26/18 0949, SpO2:99 % 11/26/18 0945, Temp:98.1 ??F (36.7 ??C), Resp:20, BP:122/71 Intake/Output Summary (Last 24 hours) at 11/27/18 0737 Last data filed at 11/27/18 0552 Gross per 24 hour Intake: 2014.39 ml Output: 900 ml Net : 1114.39 ml Physical Exam: General: alert, cooperative, no distress Lungs: clear to auscultation bilaterally Heart: regular rate and rhythm Abdomen: gravid, nontender, no palpable contractions Extremities: normal, non-tender bilaterally Labs: Recent Labs Component Name 11/25/18 0641 11/04/18 0521 11/03/18 0543 WBC 12.2* 13.9* 15.3* HGB 11.8* 11.2* 12.2 HCT 35.6* 33.7* 37.5 PLTCOUNT 227 213 228 Recent Labs Component Name 11/15/13 0806 11/12/13 1042 11/08/13 2047 SODIUM 140 135* 141 POTASSIUM 4.2 3.8 3.7 CHLORIDE 108* 103 109* CO2 22 22 22 BUN 10 10 8 CREATININE 0.36* 0.52 0.35* GLUCOSE 78 105 100 CALCIUM 8.7 8.7 9.0 ALBUMIN 1.8* 1.9* 2.2* ALKPHOS 192* 178* 187* ALT 23 23 21 AST 17 15 17 TBIL 0.1* 0.2 0.1* TPROT 5.3* 5.1* 5.5* EGFR >60 >60 >60 NST/Holcomb: See separate procedure note MEDICATIONS FOR CURRENT ENCOUNTER: SCHEDULED MEDICATIONS: 0.9% NaCl injection 3 mL, Intracatheter, q8h amoxicillin (AMOXIL) tablet 875 mg, Oral, q12h docusate sodium (COLACE) capsule 100 mg, Oral, BID iron polysaccharides (NIFEREX 150) capsule 150 mg, Oral, QDAY vitamin with iron tablet 1 tablet, Oral, QDAY [COMPLETED] betamethasone acet & sod phos (CELESTONE) injection 12 mg, Intramuscular, q24h ?? [COMPLETED] cyclobenzaprine (FLEXERIL) tablet 5 mg, Oral, Once CONTINUOUS MEDICATIONS: ?? lactated ringers infusion, Intravenous, Continuous PRN MEDICATIONS: Or Or 0.9% NaCl injection 1-10 mL, Intracatheter, PRN acetaminophen (TYLENOL) tablet 650 mg, Oral, q6h PRN calcium carbonate (TUMS) chew tablet 2 tablet, Oral, q4h PRN metoclopramide (REGLAN) injection 10 mg, Intravenous, q6h PRN ondansetron (ZOFRAN) injection 4 mg, Intravenous, q6h PRN polyethylene glycol 3350 (MIRALAX) packet 17 g, Oral, QDAY PRN prochlorperazine (COMPAZINE) suppository 25 mg, Rectal, q12h PRN ?? simethicone (MYLICON) chew tablet 160 mg, Oral, 4X/day - PC & NIGHTLY PRN Assessment/Plan: 23 year old at 32w4d, with 1. Complete Posterior Previa with Vaginal bleeding 1. Patient admitted 11/25 with third bleeding (clot passed in AM) 2. FETU Sono (11/24): posterior/right lateral placenta previa, no bridging vessels and no placental lakes 3. T&S: B+, Ab negative 4. SSE: bright red blood seen in vaginal vault, with small dark red clot within the external os, external os appeared to be closed 5. Hgb (11/25): 11.8/35.6 1. Repeat PRN 6. S/p admission on and 11/03- for bleeding 7. ANCS on , repeat 11/25-11/26 1. Accuchecks: 111-205 8. NICU consult placed 9. Plan: Monitor for further bleeding, C/S at 36 weeks or sooner if clinically indicated. Continue to monitor Accuchecks. 2. H/o LTCS x1 1. G1 in 2013 at 34 weeks due to PreE and breech presentation 2. Plan: repeat C/S at 36 weeks 3. H/o PreE 1. Patient asymptomatic 2. BPs: 100s-120s/60s-70s 3. 24hr urine (06/02): 142mg 4. Plan: continue to monitor, re-evaluate PRN 4. Tobacco use 1. Encourage cessation 2. Nicotine patch inpatient PRN 5. Sinus vs. Dental Infection (?) 1. Asymptomatic, diagnosed outpatient 2. Continue Amoxicillin x14 days Dispo: Continue inpatient management. TID monitoring and PRN. Anticipate inpatient until delivery. FWB reassuring. Amadou Roberts MD 11/27/2018 7:37 AM Associated attestation - Cheryl Sumner MD - 11/27/2018 2:49 PM CDT MFM Attending I have seen, evaluated and examined the patient with Dr. Perez. I agree with the above assessment, exams and plans. Reports some VB and clots when wiping. Had abdominal pain at the time that resolved. Feels good FM Exam: BP 124/70 Pulse 95 Temp 98.3 ??F (36.8 ??C) Resp 17 Ht 5' (1.524 m) Wt 202 lb 3.2 oz (91.7 kg) [id number]% BMI 39.49 kg/m2 Gen - NAD Abd - NT Ext - NT, no edema FHTs - 140s-150 bpm, reactive Holcomb - no ctx Patient Active Problem List Diagnosis Date Noted ??? Vaginal bleeding 11/25/2018 Priority: Not Prioritized ??? Vaginal bleeding during , antepartum 11/03/2018 Priority: Not Prioritized ??? Abnormal O'Cartwright glucose challenge test, antepartum 09/27/2018 Priority: Not Prioritized Needs GTT ??? Evaluate anatomy not seen on prior sonogram Priority: Not Prioritized ??? Vaginal bleeding in , second trimester Priority: Not Prioritized ??? Obesity (BMI 30-39.9) Priority: Not Prioritized ??? Placenta previa without hemorrhage, antepartum Priority: Not Prioritized ??? Cellulitis 08/01/2018 Priority: Not Prioritized ??? Child attention deficit disorder 08/01/2018 Priority: Not Prioritized ??? Depressive disorder 08/01/2018 Priority: Not Prioritized ??? 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 Dysmenorrhea 08/01/2018 Priority: Not Prioritized ??? Ganglion and cyst of synovium, tendon and bursa 08/01/2018 Priority: Not Prioritized ??? Gastroesophageal reflux disease 08/01/2018 Priority: Not Prioritized ??? Hyperhidrosis 08/01/2018 Priority: Not Prioritized ??? Hx of preeclampsia, prior , currently Priority: Not Prioritized ??? Previous delivery, antepartum condition or complication Priority: Not Prioritized ??? Previous delivery, antepartum Priority: Not Prioritized ??? Obesity affecting in third trimester Priority: Not Prioritized ??? Tobacco abuse 11/09/2013 ??? Supervision of high risk , antepartum 11/09/2013 I have the following to add to the plan: - Complete posterior previa with vaginal bleeding - 3rd episode. ANCS given on 09/25-09/26 and completed 2nd course 11/25-11/26 . Remains closed - Overall reassuring testing - previous CS x 1 - repeat CS - Hx of preE - BP stable currently - LGA growth - passed 3 hr GTT but elevated FBS. Plan to monitor glucose through steroid course - Declined NICU consult at this time Cheryl Sumner MD Maternal- Medicine * Elizabeth Machuca RN - 11/27/2018 7:20 AM CDT Shift Summary: Cait VSS, pt denies cramping,contractions, LOF. Pt reports having scant amount ofbright red mucousy streaks of blood when wiping after using restroom. Pt reports good movement. IV fluids infusing without difficulty. * Elizabeth Machuca RN - 11/27/2018 1:04 AM CDT Problem: Bleeding Precautions Goal: Excessive bleeding will be minimized Outcome: Ongoing Cait VSS, pt denies cramping,contractions, LOF. Pt reports having scant amount of bright red mucousy streaks of blood when wiping after using restroom. Pt reports good movement. Problem: Pain Related to Uterine Contractions Alteration in comfort. Goal: Decreased Uterine Activity Outcome: Ongoing Cait tonight EFM WNL no contractions. * Charlene Storm RN - 11/26/2018 6:04 PM CDT Moved to room 582 via wheelchair without any vaginal bleeding/contractions/pelvic pressure or leakage of fluid. Reports positive movement. Report given to Rito Bey RN & all questions answered. LR continues to infuse without difficulty at 125 ml/hr. Call light & phone within reach. * Charlene Storm RN - 11/26/2018 5:22 PM CDT Cait is awake now & ready for her vitals to be taken & steroid shot to be given & todo evening EFM before moving to room 582. * Charlene Storm RN - 11/26/2018 12:35 PM CDT Cait's boyfriend Matt called my ascom phone at 1123 stating she's in here crying she's having alot of pain & can't get up out the bed. I entered room at 1125 Cait was up in the bathroom voided & got back to bed on her own. I obtained FHT's & applied toco & ultrasound/vital signs obtained & Dr. Roberts OB resident notified & states Dr. Faria will come see Cait. Abdomen soft & unable to palpate contractions. Cait informed & verbalizes an understanding. Supplies at bedside for Dr. Faria. Cait reports her pain is intermittent & rated it a 10/10 & in her right lower abdomen initially when Matt called but now is a 6/10 still intermittent in right lower quadrant & is now radiating to her lower back. Cait is crying off & on. SSE& BSUS done. No bleeding noted & Cait reports while up in the bathroom this last time some scant amount red blood noted when wiping only. Cait continues to not wear a pad & no bleeding noted. * Essence Faria MD - 11/26/2018 12:13 PM CDT R2 Progress Note Patient with vaginal and back pain that comes and goes. No visible CTX. Plan for flexeril and LR bolus. Will continue to monitor and see if symptoms improve and progress Essence Faria MD 11/26/2018 12:14 PM * Charlene Storm RN - 11/26/2018 10:59 AM CDT Returned back from the cafeteria via wheelchair accompanied by Matt her boyfriend. Up to the bathroom & called me on my ascom stating im ready to do the baby monitor for a little bit. I went toroom & vitals signs obtained & toco & ultrasound applied at 0957 & removed at 1031 due to Ciat request stating im done with this monitoring, I can't lay back for the baby to stay on the monitor & if I move then you all will have to keep coming in & I ain't got time for that. I reminded Cait at this time she has continuous EFM ordered & when baby is not on the monitor then staff is unable to assess well being. Cait verbalizes an understanding & still request for monitoring to be removed. Holcomb & ultrasound removed. * Charlene Storm RN - 11/26/2018 9:19 AM CDT Cait just woke up & states im going to the cafeteria to eat. Cait doesn't want her morning meds/vitals/ heart rate done at this time & states i will let you know when im ready. Her boyfriend Matt got a wheelchair for her & they left the unit. Reports positive movement. Heplock intact to right forearm. * Amadou Roberts MD - 11/26/2018 8:09 AM CDT R3 Antepartum Progress Note Date: 11/26/2018 Hospital Day: 1 Subjective: Cait Mathews is a 23 year old at 32w3d weeks gestation. There were no acute overnight events. She reports she is overall feeling fine. She denies vaginal bleeding, loss of fluid, and contractions. She reports normal movement. Objective: Patient Vitals for the past 24 hrs: Temp Resp BP SpO2 11/26/18 0510 98.5 ??F (36.9 ??C) 16 135/72 98 % 11/25/18 2300 98.5 ??F (36.9 ??C) 18 118/59 - 11/25/182004 98.3 ??F (36.8 ??C) 16 124/71 96 % 11/25/18 1636 - - 126/58 - 11/25/18 1635 97.8 ??F (36.6 ??C) 18 - - 11/25/18 1223 98.4 ??F (36.9 ??C) 18 128/62 96 % Intake/Output Summary (Last 24 hours) at 11/26/18 0809 Last data filed at 11/25/182004 Gross per 24 hour Intake 300 ml Output 0 ml Net 300 ml Physical Exam: General: alert, cooperative, no distress Lungs: clear to auscultation bilaterally Heart: regular rate and rhythm Abdomen: gravid, nontender, no palpable contractions Extremities: normal, non-tender bilaterally Labs: Recent Labs Component Name 11/25/18 0641 11/04/18 0521 11/03/18 0543 WBC 12.2* 13.9* 15.3* HGB 11.8* 11.2* 12.2 HCT 35.6* 33.7* 37.5 PLTCOUNT 227 213 228 Recent Labs Component Name 11/15/13 0806 11/12/13 1042 11/08/13 2047 SODIUM 140 135* 141 POTASSIUM 4.2 3.8 3.7 CHLORIDE 108* 103 109* CO2 22 22 22 BUN 10 10 8 CREATININE 0.36* 0.52 0.35* GLUCOSE 78 105 100 CALCIUM 8.7 8.7 9.0 ALBUMIN 1.8* 1.9* 2.2* ALKPHOS 192* 178* 187* ALT 23 23 21 AST 17 15 17 TBIL 0.1* 0.2 0.1* TPROT 5.3* 5.1* 5.5* EGFR >60 >60 >60 NST/Holcomb: See separate procedure note MEDICATIONS FOR CURRENT ENCOUNTER: ?? SCHEDULED MEDICATIONS: ?? 0.9% NaCl injection 3 mL, Intracatheter, q8h ?? amoxicillin (AMOXIL) tablet 875 mg, Oral, q12h ?? betamethasone acet & sod phos (CELESTONE) injection 12 mg, Intramuscular, q24h ?? docusate sodium (COLACE) capsule 100 mg, Oral, BID ?? iron polysaccharides (NIFEREX 150) capsule 150 mg, Oral, QDAY ?? vitamin with iron tablet 1 tablet, Oral, QDAY ?? CONTINUOUS MEDICATIONS: ?? PRN MEDICATIONS: ?? Or ?? Or ?? 0.9% NaCl injection 1-10 mL, Intracatheter, PRN ?? acetaminophen (TYLENOL) tablet 650 mg, Oral, q6h PRN ?? calcium carbonate (TUMS) chew tablet 2 tablet, Oral, q4h PRN ?? metoclopramide (REGLAN) injection 10 mg, Intravenous, q6h PRN ?? ondansetron (ZOFRAN) injection 4 mg, Intravenous, q6h PRN ?? polyethylene glycol 3350 (MIRALAX) packet 17 g, Oral, QDAY PRN ?? prochlorperazine (COMPAZINE) suppository 25 mg, Rectal, q12h PRN ?? simethicone (MYLICON) chew tablet 160 mg, Oral, 4X/day - PC & NIGHTLY PRN Assessment/Plan: 23 year old at 32w3d, with 1. Complete Posterior Previa with Vaginal bleeding 1. Patient admitted 11/25 with third bleeding (clot passed in AM) 2. FETU Sono (11/24): posterior/right lateral placenta previa, no bridging vessels and no placental lakes 3. T&S: B+, Ab negative 4. SSE: bright red blood seen in vaginal vault, with small dark red clot within the external os, external os appeared to be closed 5. Hgb (11/25): 11.8/35.6 1. Repeat PRN 6. S/p admission on 09/25- and 11/03- for bleeding 7. ANCS on 09/25-, repeat 11/25-11/26 1. Accuchecks: 139-203 8. NICU consult placed 9. Plan: Monitor for further bleeding, C/S at 36 weeks or sooner if clinically indicated. Continue to monitor Accuchecks through steroid window. 2. H/o LTCS x1 1. G1 in 2013 at 34 weeks due to PreE and breech presentation 2. Plan: repeat C/S at 36 weeks 3. H/o PreE 1. Patient asymptomatic 2. BPs: 110s-130s/50s-70s 3. 24hr urine (06/02): 142mg 4. Plan: continue to monitor, re-evaluate PRN 4. Tobacco use 1. Encourage cessation 2. Nicotine patch inpatient PRN 5. Sinus vs. Dental Infection (?) 1. Asymptomatic, diagnosed outpatient 2. Continue Amoxicillin x14 days Dispo: PSCU for continuous monitoring. Consider transition to TID monitoring and possible transfer to . FWB reassuring. Amadou Roberts MD 11/26/2018 8:09 AM Associated attestation - Cheryl Sumner MD - 11/26/2018 1:19 PM CDT MFM Attending I have seen, evaluated and examined the patient with Dr. Foreman. I agree with the above assessment, exams and plans. Feeling some contraction pain, just received flexeril. No further vaginal bleeding, no LOF. Feels good FM Exam: BP 122/71 Temp 98.1 ??F (36.7 ??C) Resp 20 Ht 5' (1.524 m) Wt 202 lb 3.2 oz (91.7 kg) SpO2 99% BMI 39.49 kg/m2 Gen - NAD Abd - NT Ext - NT, no edema FHTs - wandering baseline between 130-150 bpm, reactive Holcomb - no ctx Patient Active Problem List Diagnosis Date Noted ??? Vaginal bleeding 11/25/2018 Priority: Not Prioritized ??? Vaginal bleeding during , antepartum 11/03/2018 Priority: Not Prioritized ??? Abnormal O'Cartwright glucose challenge test, antepartum 09/27/2018 Priority: Not Prioritized Needs GTT ??? Evaluate anatomy not seen on prior sonogram Priority: Not Prioritized ??? Vaginal bleeding in , second trimester Priority: Not Prioritized ??? Obesity (BMI 30-39.9) Priority: Not Prioritized ??? Placenta previa without hemorrhage, antepartum Priority: Not Prioritized ??? Cellulitis 08/01/2018 Priority: Not Prioritized ??? Child attention deficit disorder 08/01/2018 Priority: Not Prioritized ??? Depressive disorder 08/01/2018 Priority: Not Prioritized ??? 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 Dysmenorrhea 08/01/2018 Priority: Not Prioritized ??? Ganglion and cyst of synovium, tendon and bursa 08/01/2018 Priority: Not Prioritized ??? Gastroesophageal reflux disease 08/01/2018 Priority: Not Prioritized ??? Hyperhidrosis 08/01/2018 Priority: Not Prioritized ??? Hx of preeclampsia, prior , currently Priority: Not Prioritized ??? Previous delivery, antepartum condition or complication Priority: Not Prioritized ??? Previous delivery, antepartum Priority: Not Prioritized ??? Obesity affecting in third trimester Priority: Not Prioritized ??? Tobacco abuse 11/09/2013 ??? Supervision of high risk , antepartum 11/09/2013 I have the following to add to the plan: - Complete posterior previa with vaginal bleeding - 3rd episode. ANCS given on 09/25-09/26. 2nd dose of repeat course due today. Respec exam today reveals closed cervix - Overall reassuring testing - previous CS x 1 - repeat CS - Hx of preE - BP stable currently - LGA growth - passed 3 hr GTT but elevated FBS. Plan to monitor glucose through steroid course - overall in the 130-150s, continue to monitor - Declined NICU consult at this time - Plan for transfer to floor with TID NSTs and PRN Cheryl Sumner MD Maternal- Medicine * Charlene Storm RN - 11/26/2018 8:03 AM CDT Bedside report received from Mann Doyle RN & all questions answered at 0715. Cait reports positive movement & denies any pain or vaginal bleeding. Continues to refuse continuous monitoring at this time & states i will call the nurse when im ready to get back on the fetalmonitor,i already signed that paper to refuse monitoring. Call light & phone within reach. * Jahaira Doyle RN - 11/26/2018 7:31 AM CDT Shift summary: Pt resting in bed, reports positive movement. Denies contractions, cramping, headache, backache, and LOF. Reported scant vag bleeding with wiping at beginning of shift, denies this AM. Call light within reach and pt encouraged to call nurse with any needs or change in status. * Jahaira Doyle RN - 11/26/2018 5:49 AM CDT Pt asked for break from continuous EFM, AMA signed and in chart. Taken off EFM at 0509. Pt states she will call RN when she is ready to go back on EFM. * Martha Pineda RN - 11/25/2018 9:07 PM CDT Problem: Bleeding Precautions Goal: Excessive bleeding will be minimized Outcome: Ongoing No s/s of bleeding at this time. Will continue to monitor. * Charlene Storm RN - 11/25/2018 7:34 PM CDT Refusing to go back on continuous EFM at this time & will let night nurse know when she is ready. Bedside report given & all questions answered. * Charlene Storm RN - 11/25/2018 6:33 PM CDT Cait called this nurse at 1750 stating im getting ready to go off the floor & take my daughter to her father in the car downstairs. I informed Cait that she is here for vaginal bleeding & a complete previa & on continuous monitoring. When she is not on the monitor staff isunable to determine well being & know what's going on with her baby. Also she could starthaving vaginal bleeding while off the floor and/or outside & it could be a delay in her gettinghelp or getting to the OR or back to her room if needed which could result in possible .I informed her I would inform the OB residents & someone would come to her room & talk withher. Cait states no I understand all that just bring me that form to sign the doctor doesn't need to come & talk to me. Dr. Flores OB resident on & notified. AMA form signed at 1751& placed in the front. Left off the floor at 1810 via wheelchair accompanied by Matt who brought a TV with him at 1755 since she has to be here for a while per Cait & just returned now via a wheelchair. At this time Cait doesn't want to get back on continuous EFM. The father of her baby Matt remains at the bedside. Call light & phone within reach. * Charlene Storm RN - 11/25/2018 5:30 PM CDT Shift Summary: Flow sheet assessment unchanged. Reports positive movement & some pelvic discomfort at times but reports it's not new & it's from the baby being so low. Denies vaginal bleeding & hasn't had a anthony-pad on since arrival to [facility]/contractions/leakage of fluid. Up with asteady gait & tolerating diet. Call light & phone within reach. Watching TV. Cait verbalizes an understanding to notify staff with any concerns/questions or changes in condition. * Juan Shabazz - 11/25/2018 11:13 AM CDT MS4 Antepartum Progress Note Date: 11/25/2018 Hospital Day: 0 Subjective: Cait Mathews is a 23 year old at 32w2d weeks gestation here for management of 3rd episode of bleeding placenta previa. No acute overnight events. No additional bleeding or clots with wiping. Denies pain. Movement: normal. negative Ctx. negative LOF. negative VB. Objective: Patient Vitals for the past 24 hrs: Temp Resp BP SpO2 11/25/18 0714 97.4 ??F (36.3 ??C) 20 121/68 - 11/25/18 0713 - - - 98 % 11/25/18 0611 98.2 ??F (36.8 ??C) - 129/71 - No intake or output data in the 24 hours ending 11/25/18 1113 Physical Exam: General: alert, cooperative, no distress Lungs: clear to auscultation bilaterally Heart: regular rate and rhythm Abdomen: gravid, NT Extremities: no edema/erythema, non-tender bilaterally CEFM: 130s Moderate variability 15*15s Variable decels to 110s No ctxs Labs: Recent Labs Component Name 11/25/18 0641 11/04/18 0521 11/03/18 0543 WBC 12.2* 13.9* 15.3* HGB 11.8* 11.2* 12.2 HCT 35.6* 33.7* 37.5 PLTCOUNT 227 213 228 Recent Labs Component Name 11/15/13 0806 11/12/13 1042 11/08/13 2047 SODIUM 140 135* 141 POTASSIUM 4.2 3.8 3.7 CHLORIDE 108* 103 109* CO2 22 22 22 BUN 10 10 8 CREATININE 0.36* 0.52 0.35* GLUCOSE 78 105 100 CALCIUM 8.7 8.7 9.0 ALBUMIN 1.8* 1.9* 2.2* ALKPHOS 192* 178* 187* ALT 23 23 21 AST 17 15 17 TBIL 0.1* 0.2 0.1* TPROT 5.3* 5.1* 5.5* EGFR >60 >60 >60 MEDICATIONS FOR CURRENT ENCOUNTER: ?? SCHEDULED MEDICATIONS: ?? 0.9% NaCl injection 3 mL, Intracatheter, q8h ?? docusate sodium (COLACE) capsule 100 mg, Oral, BID ?? iron polysaccharides (NIFEREX 150) capsule 150 mg, Oral, QDAY ?? vitamin with iron tablet 1 tablet, Oral, QDAY ?? CONTINUOUS MEDICATIONS: ?? PRN MEDICATIONS: ?? Or ?? Or ?? 0.9% NaCl injection 1-10 mL, Intracatheter, PRN ?? acetaminophen (TYLENOL) tablet 650 mg, Oral, q6h PRN ?? calcium carbonate (TUMS) chew tablet 2 tablet, Oral, q4h PRN ?? metoclopramide (REGLAN) injection 10 mg, Intravenous, q6h PRN ?? ondansetron (ZOFRAN) injection 4 mg, Intravenous, q6h PRN ?? polyethylene glycol 3350 (MIRALAX) packet 17 g, Oral, QDAY PRN ?? prochlorperazine (COMPAZINE) suppository 25 mg, Rectal, q12h PRN ?? simethicone (MYLICON) chew tablet 160 mg, Oral, 4X/day - PC & NIGHTLY PRN Assessment: 23 year old at 32w2d who was admitted for bleeding posterior previa. Currently stable. Hospital Day: 0 Will discuss plan with attending at rounds. Third trimester bleeding with known complete posterior previa. status reassuring on CEFM. Currently hemodynamically stable. No s/s of abruption. No additional bleeding. 3rd bleeding this . S/p ANCS 09/25- S/p T&C x2 Plan: - Continue CEFM until stable for 24-48hrs. - If delivery expected w/i 7 days before 34wks, consider repeat ANCS. - Delivery: 36WGA by CS or sooner if indicated. H/o preE Normotensive. No s/s of preE. Previously taking ASA but d/c'd because of placenta previa. 24h urine: 142 06/02/18 Plan: - Monitor pressures Supervision of 1. PNC: Dr. Guadarrama 2. Datin wk US 3. PNL: B+/I/-/- NR 4. Pap: 1 year ago, no abnormal paps 5. Hgb elec: normal 6. Genetics: LR NIPT 7. Anatomy US: cleared 8. Tdap administered 9. GCT: 147 GTT: 97/169/121/138 Juan K To 11/25/2018 11:13 AM Associated attestation - Vera Bran MD - 11/25/2018 8:10 PM CDT MFM Fellow: Agree with above note. This medical student note is for purposes of education. Please see note fromNP/resident/fellow/attending for questions regarding the patient plan. Vera Bran MD documented in this encounter H&P Notes * Sara Duran MD - 11/25/2018 6:05 AM CDT PGY1 Obstetric H&P Note 11/25/2018, 6:05 AM CC: Vaginal bleeding with placenta previa HPI: 23 year old at 32w2d gestation Dating: LMP c/w 8w6d week ultrasound Estimated Date of Delivery: 01/18/19 care: is with high risk [facility] Patient's is complicated by: Patient Active Problem List Diagnosis Date Noted ??? Vaginal bleeding 11/25/2018 Priority: Not Prioritized ??? Vaginal bleeding during , antepartum 11/03/2018 Priority: Not Prioritized ??? Abnormal O'Cartwright glucose challenge test, antepartum 09/27/2018 Priority: Not Prioritized Needs GTT ??? Evaluate anatomy not seen on prior sonogram Priority: Not Prioritized ??? Vaginal bleeding in , second trimester Priority: Not Prioritized ??? Obesity (BMI 30-39.9) Priority: Not Prioritized ??? Placenta previa without hemorrhage, antepartum Priority: Not Prioritized ??? Cellulitis 08/01/2018 Priority: Not Prioritized ??? Child attention deficit disorder 08/01/2018 Priority: Not Prioritized ??? Depressive disorder 08/01/2018 Priority: Not Prioritized ??? 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 Dysmenorrhea 08/01/2018 Priority: Not Prioritized ??? Ganglion and cyst of synovium, tendon and bursa 08/01/2018 Priority: Not Prioritized ??? Gastroesophageal reflux disease 08/01/2018 Priority: Not Prioritized ??? Hyperhidrosis 08/01/2018 Priority: Not Prioritized ??? Hx of preeclampsia, prior , currently Priority: Not Prioritized ??? Previous delivery, antepartum condition or complication Priority: Not Prioritized ??? Previous delivery, antepartum Priority: Not Prioritized ??? Obesity affecting in third trimester Priority: Not Prioritized ??? Tobacco abuse 11/09/2013 ??? Supervision of high risk , antepartum 11/09/2013 Patient presents with complaints of vaginal bleeding since she had her US yesterday. She has a known placenta previa and this is her third bleed. She states that when she woke up this morning the front of her shorts were covered in blood. She then went to the bathroom and a clot the size of her palm came out. Since then she has continued to have minimal bleeding. She has not need to wear a pad, but noticing some blood after she wipes. negative Ctx. negative LOF. positive VB. positive FM. Review of Symptoms: A comprehensive review of systems was negative except as stated above Obstetrical History: OB History Para Term AB Living 2 1 0 1 0 1 SAB TAB Ectopic Multiple Live Births 0 0 0 0 1 # Outcome Date GA Lbr Abdullahi/2nd Weight Sex Delivery Anes PTL Lv 2 Current 1 11/17/13 34w0d 1790 g (3 lb 15.1 oz) F CS-LTranv Spinal MARCUS Gynecologic History: History of abnormal pap smear: no History of procedure on cervix: no STI History: Denies gonorrhea, chlamydia, trichomonas, herpes, HIV, syphilis Medical History: Past Medical History: Diagnosis Date ??? Chlamydia contact, treated ??? History of asthma Asthma ??? History of sexually transmitted disease ??? Placenta previa ??? Preeclampsia 2013 ??? Tobacco use She denies history of hypertension, diabetes, asthma or bleeding disorders. Psych History: Depression: No Anxiety: No Bipolar disorder: No Schizophrenia: No Surgeries: Past Surgical History: Procedure Laterality Date ??? Section N/A 11/17/2013 N/A; SECTION ??? Tonsillectomy Current Medications: Prior to Admission medications Medication Sig Start Date End Date Taking? Authorizing Provider amoxicillin (AMOXIL) 875 MG tablet Take 875 mg by mouth 2 times daily Amada Puri MD Vit-Fe Fumarate-FA ( VITAMIN) 27-0.8 MG tablet Take 1 tablet by mouth once daily Amada Puri MD Allergies: No Known Allergies Social History: Social History Smoking status: Current Every Day Smoker Packs/day: 0.25 Years: 0.00 Smokeless status: Never Used Alcohol use: No Drug use: No Sexual activity: Not on file Comment: Denies chance of Family History: No family history on file. No history of infants born with defects No history of family members with bleeding disorders or history of blood clots. No history of breast, ovarian, or uterine cancer Objective: No data found. Assessment/ Non-Stress Test Baseline: 140 beats/minute positive variability Reactive Contractions: None, several increases in pressure due to maternal movement Decelerations: none Physical Exam General: no acute distress, alert and oriented x3 HEENT: extra-occular movements intact, moist mucous membranes Heart: regular rate and rhythm, no rubs/murmurs/gallops Lungs: clear to auscultation bilaterally, no wheezing/crackles Abdomen: gravid, soft, non-tender Extremities: non-tender bilaterally, no edema bilaterally Neuro: cranial nerves grossly intact, strength and sensation intact and symmetric bilaterally Psych: appropriate affect Sterile speculum exam: No pooling of blood in the vaginal vault Small amount of bright red blood, was able to use one [place] swab to clear it without saturating theswab, no new blood collected within the vagina Small dark red clot visualized within the external os External os appeared to be closed around the clot Cervical Exam NOT PERFORMED Current Lab Review: No results found for this visit on 11/25/18. labs Blood type: B+ Rubella: immune Hep B surface antigen:non-reactive RPR: non-reactive HIV:Negative GCT: 147, GTT wnl GBS: Not Tested Assessment/Plan: 23 year old at 32w2d gestation 1. Complete Posterior Previa with Vaginal bleeding 1. 11/24 US showed anterior:posterior/right lateral placenta previa, no bridging vessels and no placental lakes 2. 3rd bleed this 3. Bleeding since this AM, clot the size of her palm with continued spotting 4. Blood type B+ 5. SSE: bright red blood seen in vaginal vault, with small dark red clot within the external os, external os appeared to be closed 6. CBC drawn 7. S/p admission on and 11/03- for bleeding 8. ANCS on 09/25- 9. Delivery Planning: CS at 36 weeks (12/21) 2. H/o LTCS x1 1. G1 in 2013 at 34 weeks due to PreE and breech presentation 3. H/o PreE 1. BP within normal limits currently 2. 24hr urine 142mg on 06/02 4. Dispo: Admit to [facility] for continuous monitoring Discussed with Dr. Sanchez and Dr. Roger Ashton MD 11/25/2018 6:05 AM R4 H&P Attestation: Patient presented to [facility] with complaints of vaginal bleeding. She reports having mild bleeding since her ultrasound yesterday and passed a palm size clot this morning. She denies any contractions or loss of fluid. She reports good movement. A sterile speculum exam was performed. A small amount of blood inside the vagina was seen with a blood clot at her external os. Her cervix appeared closed per vis. Her is complicated by a known history of posterior placenta previa. She has been admittedtwice this already for two previous episodes of vaginal bleeding. She has received one course of steroids from 09/25-09/26. Her blood type is B+. Her baby looked reassuring on the non-stress test with accelerations and moderate variability. No obvious decelerations were seen. The decision was made at that time to admit her to [facility] for continuous monitoring and monitoring of her vaginal bleeding. Will plan to obtain CBC at this time. Discussed with Dr. Bran. Dr. Sumner to see patient today. Sara Duarn MD 11/25/2018 8:05 AM Associated attestation - Cheryl Sumner MD - 11/25/2018 3:12 PM CDT MFM Attending I have seen, evaluated and examined the patient with Dr. Bran. I agree with the above assessment,exams and plans. Doing well. No further vaginal bleeding. Feels good FM. Denies contractions Exam: BP 128/62 Temp 98.4 ??F (36.9 ??C) Resp 18 Ht 5' (1.524 m) Wt 202 lb 3.2 oz (91.7 kg) SpO2 96% BMI 39.49 kg/m2 Gen - NAD Abd - NT FHTs - 130s reactive for GA Holcomb - no contractions Patient Active Problem List Diagnosis Date Noted ??? Vaginal bleeding 11/25/2018 Priority: Not Prioritized ??? Vaginal bleeding during , antepartum 11/03/2018 Priority: Not Prioritized ??? Abnormal O'Cartwright glucose challenge test, antepartum 09/27/2018 Priority: Not Prioritized Needs GTT ??? Evaluate anatomy not seen on prior sonogram Priority: Not Prioritized ??? Vaginal bleeding in , second trimester Priority: Not Prioritized ??? Obesity (BMI 30-39.9) Priority: Not Prioritized ??? Placenta previa without hemorrhage, antepartum Priority: Not Prioritized ??? Cellulitis 08/01/2018 Priority: Not Prioritized ??? Child attention deficit disorder 08/01/2018 Priority: Not Prioritized ??? Depressive disorder 08/01/2018 Priority: Not Prioritized ??? 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 Dysmenorrhea 08/01/2018 Priority: Not Prioritized ??? Ganglion and cyst of synovium, tendon and bursa 08/01/2018 Priority: Not Prioritized ??? Gastroesophageal reflux disease 08/01/2018 Priority: Not Prioritized ??? Hyperhidrosis 08/01/2018 Priority: Not Prioritized ??? Hx of preeclampsia, prior , currently Priority: Not Prioritized ??? Previous delivery, antepartum condition or complication Priority: Not Prioritized ??? Previous delivery, antepartum Priority: Not Prioritized ??? Obesity affecting in third trimester Priority: Not Prioritized ??? Tobacco abuse 11/09/2013 ??? Supervision of high risk , antepartum 11/09/2013 I have the following to add to the plan: - Complete posterior previa with vaginal bleeding - 3rd episode. ANCS given on 09/25-09/26. Plan to repeat course now - previous CS x 1 - repeat CS - Hx of preE - BP stable currently - LGA growth - passed 3 hr GTT but elevated FBS. Plan to monitor glucose through steroid course - Continuous monitoring for now - Declined NICU consult at this time Cheryl Sumner MD Maternal- Medicine documented in this encounter Procedure Notes * Jolanta Richards RN - 12/20/2018 3:57 PM CDTProcedure(s): NON-STRESS TEST Name: Cait Mathews Date of : 1995 Today's Date: 12/20/2018 Start: 1453 End: 1528 NST RESULTS (HERNADEZ) OBJECTIVE FINDINGS Temp: 98.4 ??F (36.9 ??C), Pulse: 81, Resp: 18, BP: 127/81 NST Indication(s): Placenta Previa, Gestational diabetes, Pre-eclampsia Uterine Irritability: Yes Contractions: Not present OBJECTIVE FINDINGS Movement: Present Monitoring Mode: External Baseline: 145 BPM Variability: Moderate Decelerations: None Accelerations: Yes OTHER INFORMATION Jolanta Richards RN Associated attestation - Deepa Chaudhry APRN-CNP - 12/21/2018 9:21 AM CDT I have reviewed the NST strip and the data in this note. My interpretation is reactive NST, no decelerations present No contractions present ADI Atwood * Perla Jansen MD - 12/19/2018 2:52 PM CDTProcedure(s): NONSTRESS TEST Name: Cait Mathews Date of : 1995 Today's Date: 12/19/2018 NST RESULTS (HERNADEZ) OBJECTIVE FINDINGS Temp: 97.8 ??F (36.6 ??C), Pulse: 81, Resp: 16, BP: 140/83 NST Indication(s): Placenta Previa Uterine Irritability: Yes Contractions: Not present OBJECTIVE FINDINGS Movement: Present Monitoring Mode: External Baseline: 140 BPM Variability: Moderate Decelerations: Variable Accelerations: Yes OTHER INFORMATION Inpatient Interventions: None Keshia Bey RN Start 1416 End 1452 NST: baseline 145-155 bpm, moderate variability, reactive, no decelerations Holcomb: uterine irritability Perla Jansen MD 12/20/2018 5:38 AM Associated attestation - Sari Wilson MD - 12/20/2018 10:44 AM CDT [facility] Attending Note I have reviewed the images and agree with the interpretation for the attached procedure, I agree with the interpretation. Impression: Reassuring testing Recommend: follow up studies as clinically indicated. Sari Wilson MD 12/20/2018 10:44 AM * Charlene Storm RN - 12/18/2018 4:33 PM CDTAssociated Order(s): NONSTRESS TEST Name: Cait Mathews Date of : 1995 Today's Date: 12/18/2018 Start: 1442 Stop: 1521 NST RESULTS (HERNADEZ) OBJECTIVE FINDINGS Temp: 98.5 ??F (36.9 ??C), Pulse: 76, Resp: 18, BP: 138/90 NST Indication(s): Placenta Previa Uterine Irritability: No Contractions: Not present OBJECTIVE FINDINGS Movement: Present Monitoring Mode: External Baseline: 140 BPM Variability: Moderate Decelerations: Variable Accelerations: Yes OTHER INFORMATION Inpatient Interventions: None Charlene Storm RN Associated attestation - Deepa Chaudhry APRN-CNP - 12/19/2018 9:31 AM CDT I have reviewed the NST strip and the data in this note. My interpretation is reactive NST, no decelerations present ADI [place]wood * Essence Faria MD - 12/17/2018 1:18 PM CDTAssociated Order(s): NONSTRESS TEST Procedure(s): NONSTRESS TEST Name: Cait Mathews Date of : 1995 Today's Date: 12/17/2018 Start: 1109 End: 1142 NST RESULTS (HERNADEZ) OBJECTIVE FINDINGS Temp: 98.2 ??F (36.8 ??C), Pulse: 69, Resp: 18, BP: 148/90 NST Indication(s): Placenta Previa Uterine Irritability: Yes Contractions: Irregular Frequency: x1 Duration (sec) Range: 140 Perceived Intensity: Mild OBJECTIVE FINDINGS Movement: Present Monitoring Mode: External Baseline: 145 BPM Variability: Moderate Decelerations: Variable Accelerations: Yes OTHER INFORMATION Inpatient Interventions: None Mary Lion RN Non-Stress Test (NST) Cait Mathews [id number] 12/17/2018 10:54 PM Indications: Patient Active Problem List: Tobacco abuse Preeclampsia Supervision of high risk , antepartum Pre-eclampsia in third trimester Previous delivery, antepartum condition or complication Previous delivery, antepartum Obesity affecting in third trimester Depressive disorder 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 The FHT is reactive using 15x15 bpm criteria. No FHR decelerations lasting >30 seconds were detected. Gely Medina MD MPH M STAFF * Sara Duran MD - 12/16/2018 7:03 PM CDTAssociated Order(s): NONSTRESS TEST Procedure(s): NONSTRESS TEST Name: Cait Mathews Date of : 1995 Today's Date: 12/16/2018 Start: 1240 End: 1314 NST RESULTS (HERNADEZ) OBJECTIVE FINDINGS Temp: 97.9 ??F (36.6 ??C), Pulse: 84, Resp: 18, BP: 141/84 OBJECTIVE FINDINGS OTHER INFORMATION Lynda Pat RN Non-Stress Test (NST) Cait Mathews [id number] 12/17/2018 7:52 AM Indications: Complete previa Interpretation: Fetus A: Baseline: 145 beats/minute Reactive Variability: Moderate Contractions: None Decelerations: None Recs: Reassuring, continue monitoring as indicated Sara Duran MD Associated attestation - Gely Medina MD - 12/17/2018 2:17 PM CDT I have reviewed the tracing and concur with the resident's description and interpretation. The FHT is reactive using 15x15 bpm criteria. No FHR decelerations lasting >30 seconds were detected. Gely Medina MD [facility] STAFF * Lynda Pat RN - 12/15/2018 6:37 PM CDTAssociated Order(s): NONSTRESS TEST Procedure(s): NONSTRESS TEST Name: Cait Mathews Date of : 1995 Today's Date: 12/15/2018 Start: 1754 End: 1830 NST RESULTS (HERNADEZ) OBJECTIVE FINDINGS Temp: 98.5 ??F (36.9 ??C), Pulse: 65, Resp: 18, BP: 138/97 NST Indication(s): Gestational diabetes, Placenta Previa Uterine Irritability: Yes Contractions: Irregular Frequency: x2 OBJECTIVE FINDINGS Movement: Present Monitoring Mode: External Baseline: 150 BPM Variability: Moderate Decelerations: None Accelerations: Yes OTHER INFORMATION Comments: pt denies feeling Lynda Pat RN Associated attestation - Deepa Chaduhry APRN-CNP - 12/16/2018 2:05 PM CDT I have reviewed the NST strip and the data in this note. My interpretation for this NST is reactive, no decelerations present ADI [place] * Vijaya Ashton MD - 12/14/2018 12:00 PM CDTAssociated Order(s): NONSTRESS TEST Name: Cait Mathews Date of : 1995 Today's Date: 12/14/2018 [id number] NST RESULTS (HERNADEZ) OBJECTIVE FINDINGS Temp: 98.2 ??F (36.8 ??C), Pulse: 76, Resp: 18, BP: 130/81 NST Indication(s): Gestational diabetes, Placenta Previa Uterine Irritability: No Contractions: Irregular Frequency: x1 Duration (sec) Range: 120 Perceived Intensity: Mild OBJECTIVE FINDINGS Movement: Present Monitoring Mode: External Baseline: 135 BPM Variability: Moderate Decelerations: None Accelerations: Yes OTHER INFORMATION Rupa Anthony RN R1 Addendum Non-Stress Test (NST) Cait Mathews [id number] 12/15/2018 5:59 AM Indications: Placenta Previa, GDM, cHTN Interpretation: Baseline: 125 beats/minute reactive Variability: Moderate Contractions: none Decelerations: none Vijaya Ashton MD Associated attestation - Deepa Chaudhry APRN-CNP - 12/15/2018 11:47 AM CDT I have reviewed the NST strip and the data in this note. My interpretation for this NST is reactive No decelerations No contractions present ADI [place] * Vijaya Ashton MD - 12/13/2018 11:39 AM CDTAssociated Order(s): NONSTRESS TEST Procedure(s): NONSTRESS TEST Name: Cait Mathews Date of : 1995 Today's Date: 12/13/2018 efm started 1000 efm complete 1117 NST RESULTS (HERNADEZ) OBJECTIVE FINDINGS Temp: 98.2 ??F (36.8 ??C), Pulse: 72, Resp: 20, BP: 108/56 NST Indication(s): Gestational diabetes, Placenta Previa Uterine Irritability: Yes Contractions: Not present OBJECTIVE FINDINGS Movement: Present Monitoring Mode: External Baseline: 125 BPM (baseline change up to 140) Variability: Moderate Decelerations: Variable Accelerations: Yes OTHER INFORMATION Inpatient Interventions: Provider Notified Rupa Hope LPN R1 Addendum Non-Stress Test (NST) Cait Mathews [id number] 12/14/2018 6:06 AM Indications: Placenta Previa Interpretation: Baseline: 140 beats/minute reactive Variability: Moderate Contractions: none Decelerations: none Vijaya Ashton MD Associated attestation - Gely Medina MD - 12/14/2018 12:41 PM CDT I have reviewed the tracing and concur with the resident's description and interpretation. The FHT is reactive using 15x15 bpm criteria. No FHR decelerations lasting >30 seconds were detected. Gley Medina MD [facility] STAFF * Perla Jansen MD - 12/12/2018 2:37 PM CDTAssociated Order(s): NONSTRESS TEST Procedure(s): NONSTRESS TEST Name: Cait Mathews Date of : 1995 Today's Date: 12/12/2018 efm started 1335 efm completed 1413 NST RESULTS (HERNADEZ) OBJECTIVE FINDINGS Temp: (eating), Pulse: 96, Resp: 16, BP: 137/89 NST Indication(s): Placenta Previa Uterine Irritability: Yes Contractions: Not present OBJECTIVE FINDINGS Movement: Present Monitoring Mode: External Baseline: 135 BPM (to 130) Variability: Moderate Decelerations: Variable Accelerations: Yes OTHER INFORMATION Inpatient Interventions: None Rupa Hope LPN NST: baseline ranges from 125-140 bpm, moderate variability, reactive, no decelerations Holcomb: no contractions Perla Jansen MD 12/13/2018 6:56 AM Associated attestation - Gely Medina MD - 12/13/2018 2:22 PM CDT I have reviewed the tracing and concur with the resident's description and interpretation. The FHT is reactive using 15x15 bpm criteria. No FHR decelerations lasting >30 seconds were detected. Gely Medina MD [facility] STAFF * Marci Mejia RN - 12/11/2018 3:59 PM CDTAssociated Order(s): NONSTRESS TEST Name: Cait Mathews Date of : 1995 Today's Date: 12/11/2018 Start: 1321 End: 1412 NST RESULTS (HERNADEZ) OBJECTIVE FINDINGS Temp: 98.2 ??F (36.8 ??C), [...] Inpatient Interventions: Provider Notified Marci Mejia RN Associated attestation - Mallory Brower MD - 12/11/2018 6:56 PM CDT I have reviewed the heart rate tracing and agree with the impression of: reactive , no recurring contractions Mallory Brower MD Maternal- Medicine * ePrla Jansen MD - 12/11/2018 10:18 AM CDTAssociated Order(s): NONSTRESS TEST Name: Cati Mathews Date of : 1995 Today's Date: 12/11/2018 Start: 818 End: 935 NST RESULTS (HERNADEZ) OBJECTIVE FINDINGS Temp: 98.1 ??F (36.7 ??C), [...] first. Dr Stewart called to room. Marci Mejia RN NST: tachycardia at beginning of strips that returns to baseline 145 -150 bpm possibly represents a prolonged acceleration but exact etiolology unclear, moderate variability, reactive, no decelerations Holcomb: no contractions Perla Jansen MD 12/12/2018 5:08 AM Associated attestation - Gely Medina MD - 12/12/2018 1:55 PM CDT I have reviewed the tracing and concur with the resident's description and interpretation. The FHT is reactive using 15x15 bpm criteria. No FHR decelerations lasting >30 seconds were detected. Gely Medina MD MPH M STAFF * Essence Faria MD - 12/10/2018 12:51 PM CDTAssociated Order(s): NONSTRESS TEST Name: Cait Mathews Date of : 1995 Today's Date: 12/10/2018 Start: 1127 End: 1210 NST RESULTS (HERNADEZ) OBJECTIVE FINDINGS Temp: 97.7 ??F (36.5 ??C), Pulse: 84, Resp: 18, BP: 135/81 NST Indication(s): Other (Comment), Pre-eclampsia (vaso previa) Uterine Irritability: Yes Contractions: Irregular Frequency: x2 Duration (sec) Range: 90 Perceived Intensity: Mild OBJECTIVE FINDINGS Movement: Present Monitoring Mode: External Baseline: 150 BPM Variability: Moderate Decelerations: Variable Accelerations: Prolonged, Yes OTHER INFORMATION Marci Mejia RN Non-Stress Test (NST) Cait Mathews [id number] 12/12/2018 8:41 AM Indications: Patient Active Problem List: Tobacco abuse Supervision of high risk , antepartum Hx of preeclampsia, prior , currently Previous delivery, antepartum condition or complication Previous delivery, antepartum Obesity affecting in third trimester Depressive disorder 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 Gastroesophageal reflux disease Hyperhidrosis Placenta previa antepartum in third trimester Abnormal O'Cartwright glucose challenge test, antepartum Vaginal bleeding during Gestational diabetes Maternal asthma complicating Bilobed placenta Vasa previa 34 weeks gestation of Interpretation: Fetus A: Baseline: 155 beats/minute with prolonged acceleration of FHTs to 170s with return to baseline reactive Variability: Moderate Contractions: rare Decelerations: none Recs: Cont testing Essence Faria MD Associated attestation - Gely Medina MD - 12/12/2018 1:55 PM CDT I have reviewed the tracing and concur with the resident's description and interpretation. The FHT is reactive using 15x15 bpm criteria. No FHR decelerations lasting >30 seconds were detected. Gely Medina MD MPH M STAFF * Jolanta Richards RN - 12/09/2018 2:45 PM CDTProcedure(s): NON-STRESS TEST Name: Cait Mathews Date of : 1995 Today's Date: 12/09/2018 Start: 1359 End: 1433 NST RESULTS ([facility]) OBJECTIVE FINDINGS Temp: 97.2 ??F (36.2 ??C), Pulse: 93, Resp: 18, BP: 127/67 NST Indication(s): Other (Comment), Pre-eclampsia Uterine Irritability: Yes Contractions: Not present OBJECTIVE FINDINGS Movement: Present Monitoring Mode: External Baseline: 140 BPM Variability: Moderate Decelerations: Variable Accelerations: Yes OTHER INFORMATION Jolanta Richards RN Associated attestation - Mallory Brower MD - 12/09/2018 6:48 PM CDT I have reviewed the heart rate tracing and agree with the impression of: reactive and without contractions Mallory Brower MD Maternal- Medicine * Kimberly Renee RN - 12/08/2018 10:24 AM CDTProcedure(s): NONSTRESS TEST Name: Cait Mathews Date of : 1995 Today's Date: 12/08/2018 Start: 932 End: 1008 NST RESULTS ([facility]) OBJECTIVE FINDINGS Temp: 98.3 ??F (36.8 ??C), Pulse: 67, Resp: 18, BP: 139/86 NST Indication(s): Chronic hypertension, Gestational diabetes Uterine Irritability: Yes Contractions: Not present OBJECTIVE FINDINGS Movement: Present Monitoring Mode: External Baseline: 140 BPM Variability: Moderate Decelerations: None Accelerations: Yes OTHER INFORMATION Kimberly Renee RN Associated attestation - Mallory Brower MD - 12/08/2018 11:17 AM CDT I have reviewed the heart rate tracing and agree with the impression of: Reactive without contractions Mallory Brower MD Maternal- Medicine * Perla Jansen MD - 12/07/2018 5:54 PM CDTAssociated Order(s): NONSTRESS TEST ..Name: Cait Mathews Date of : 1995 Today's Date: 12/07/2018 Start: 1608 Stop: 1720 NST RESULTS ([facility]) OBJECTIVE FINDINGS Temp: 98.4 ??F (36.9 ??C), [...] vs prolonged acceleration at end of strip Holcomb: no contractions Perla Jansen MD 12/08/2018 6:12 AM * Perla Jansen MD - 12/07/2018 1:48 PM CDTAssociated Order(s): NONSTRESS TEST .Name: Cait Mathews Date of : 1995 Today's Date: 12/07/2018 NST RESULTS ([facility]) OBJECTIVE FINDINGS NST Indication(s): Placenta Previa Uterine Irritability: No Contractions: Not present OBJECTIVE FINDINGS Movement: Present Monitoring Mode: External Baseline: 130 BPM Variability: Moderate Decelerations: None Accelerations: Yes Start: 13:26 Stop: 13:48 OTHER INFORMATION Inpatient Interventions: None Maria E Farooq RN NST: baseline 140 bpm, moderate variability, reactive, no obvious decelerations; baseline change [id number] to 130 bpm Holcomb: no contractions Perla Jansen MD 12/08/2018 6:10 AM Associated attestation - Mallory Brower MD - 12/12/2018 8:39 PM CDT I have reviewed the heart rate tracing and agree with the impression of: reactive and without contractions Mallory Brower MD Maternal- Medicine * Lynda Campuzano RN - 12/06/2018 12:49 PM CDTAssociated Order(s): NONSTRESS TEST Name: Cait Bárbara Reid Date of : 1995 Today's Date: 12/06/2018 Start 1135 Stop 1202 NST RESULTS ([facility]) OBJECTIVE FINDINGS Temp: 98 ??F (36.7 ??C), , Resp: 16, BP: 142/87 NST Indication(s): Placenta Previa Uterine Irritability: Yes Contractions: Not present OBJECTIVE FINDINGS Movement: Present Monitoring Mode: External Baseline: 150 BPM Variability: Moderate Decelerations: Variable Accelerations: Yes OTHER INFORMATION Inpatient Interventions: None Lynda Campuzano RN Associated Mallory Valencia MD - 12/06/2018 10:23 PM CDT I have reviewed the heart rate tracing and agree with the impression of: reactive with no contractions Mallory Brower MD Maternal- Medicine * Lynda Campuzano RN - 12/05/2018 2:05 PM CDTAssociated Order(s): SONOGRAM - LIMITED Name: Cait Mathews Date of : 1995 Today's Date: 12/05/2018 Start 1303 Stop 1359 NST RESULTS ([facility]) OBJECTIVE FINDINGS Temp: 97.5 ??F (36.4 ??C), Pulse: 77, Resp: 18, BP: 127/85 NST Indication(s): Placenta Previa Uterine Irritability: Yes Contractions: Not present OBJECTIVE FINDINGS Movement: Present Monitoring Mode: External Baseline: 150 BPM Variability: Moderate Decelerations: Variable Accelerations: Yes OTHER INFORMATION Inpatient Interventions: None Lynda Campuzano RN Associated Mallory Valencia MD - 12/05/2018 8:31 PM CDT I have reviewed the heart rate tracing and agree with the impression of: reactive , Without contractions Mallory Brower MD Maternal- Medicine * Gabrielle Lui MD - 12/04/2018 4:09 PM CDT Name: Cait Mathews Date of : 1995 Today's Date: 12/04/2018 Start 1455 Stop 1602 [facility] ONLY NST RESULTS ([facility]) OBJECTIVE FINDINGS Temp: 98 ??F (36.7 ??C), Pulse: 81, Resp: 18, BP: 137/83 NST Indication(s): Placenta Previa Uterine Irritability: Yes Contractions: Irregular Duration (sec) Range: 40-120 Perceived Intensity: Mild (pt reports some cramping) OBJECTIVE FINDINGS Movement: Present Monitoring Mode: External Baseline: 135 BPM Variability: Moderate Decelerations: Variable Accelerations: Yes OTHER INFORMATION Inpatient Interventions: None Lynda Campuzano RN Non-Stress Test (NST) Cait Mathews [id number] 12/05/2018 6:05 AM Indications: Patient Active Problem List: Tobacco abuse Supervision of high risk , antepartum Hx of preeclampsia, prior , currently Previous delivery, antepartum condition or complication Previous delivery, antepartum Obesity affecting in third trimester Cellulitis Child attention deficit disorder Depressive disorder 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 Overall reassuring. Cont testing. Gabrielle Lui MD * Gabrielle Lui MD - 12/04/2018 2:22 PM CDTAssociated Order(s): NONSTRESS TEST Name: Cait Mathews Date of : 1995 Today's Date: 12/04/2018 Start 1344 Stop 1418 NST RESULTS ([facility]) OBJECTIVE FINDINGS Temp: 98 ??F (36.7 ??C), Pulse: 81, Resp: 18, BP: 137/83 NST Indication(s): Placenta Previa Uterine Irritability: Yes Contractions: Not present OBJECTIVE FINDINGS Movement: Present Monitoring Mode: External Baseline: 135 BPM Variability: Moderate Decelerations: Variable Accelerations: Yes OTHER INFORMATION Inpatient Interventions: None Lynda Campuzano RN Non-Stress Test (NST) Cait Mathews [id number] 12/05/2018 6:07 AM Indications: Patient Active Problem List: Tobacco abuse Supervision of high risk , antepartum Hx of preeclampsia, prior , currently Previous delivery, antepartum condition or complication Previous delivery, antepartum Obesity affecting in third trimester Cellulitis Child attention deficit disorder Depressive disorder 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 No decels or contractions seen. 15x15 accelerations. Cont testing Gabrielle Lui MD * Lianne Flores MD - 12/03/2018 5:58 PM CDTAssociated Order(s): NONSTRESS TEST Name: Cait Mathews Date of : 1995 Today's Date: 12/03/2018 Start 1723 Stop 1754 NST RESULTS ([facility]) OBJECTIVE FINDINGS Temp: 98.1 ??F (36.7 ??C), Pulse: 91, Resp: 18, BP: 125/82 NST Indication(s): Placenta Previa Uterine Irritability: No Contractions: Not present (pt complains of cramping) Duration (sec) Range: 70 Perceived Intensity: (denies feeling) OBJECTIVE FINDINGS Movement: Present Monitoring Mode: External Baseline: 145 BPM Variability: Moderate Decelerations: Variable Accelerations: Yes OTHER INFORMATION Inpatient Interventions: None Lynda Campuzano RN Non-Stress Test Indications: Patient Active Problem List: Tobacco abuse Supervision of high risk , antepartum Hx of preeclampsia, prior , currently Previous delivery, antepartum condition or complication Previous delivery, antepartum Obesity affecting in third trimester Cellulitis Child attention deficit disorder Depressive disorder 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 Lianne Flores MD 12/04/2018 10:27 AM Associated attestation - Candace Peacock MD - 12/04/2018 10:34 AM CDT I have reviewed the tracing and concur with the interpretation. Candace Peacock MD * Lianne Flores MD - 12/03/2018 3:20 PM CDTAssociated Order(s): NONSTRESS TEST Name: Cait Mathews Date of : 1995 Today's Date: 12/03/2018 Start: 1436 Stop: 1520 NST RESULTS ([facility]) OBJECTIVE FINDINGS , , , NST Indication(s): Placenta Previa Uterine Irritability: No Contractions: (rare) Duration (sec) Range: 70 Perceived Intensity: (denies feeling) OBJECTIVE FINDINGS Movement: Present Monitoring Mode: External Baseline: 135 BPM Variability: Moderate Decelerations: Variable Accelerations: Yes OTHER INFORMATION Inpatient Interventions: None Charlene Storm RN Non-Stress Test Indications: Patient Active Problem List: Tobacco abuse Supervision of high risk , antepartum Hx of preeclampsia, prior , currently Previous delivery, antepartum condition or complication Previous delivery, antepartum Obesity affecting in third trimester Cellulitis Child attention deficit disorder Depressive disorder 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 Lianne Flores MD 12/04/2018 10:27 AM Associated attestation - Candace Peacock MD - 12/04/2018 10:34 AM CDT I have reviewed the tracing and concur with the interpretation. Candace Peacock MD * Lianne Flores MD - 12/02/2018 3:10 PM CDTAssociated Order(s): NONSTRESS TEST Name: Cait Mathews Date of : 1995 Today's Date: 12/02/2018 Start: 1406 Stop: 1510 NST RESULTS ([facility]) OBJECTIVE FINDINGS Temp: 98.3 ??F (36.8 ??C), Pulse: 96, Resp: 20, BP: 124/78 NST Indication(s): Placenta Previa Uterine Irritability: No Contractions: Not present OBJECTIVE FINDINGS Movement: Present Monitoring Mode: External Baseline: 145 BPM Variability: Moderate Decelerations: Variable Accelerations: Yes OTHER INFORMATION Inpatient Interventions: None Charlene Storm RN Non-Stress Test Indications: Patient Active Problem List: Tobacco abuse Supervision of high risk , antepartum Hx of preeclampsia, prior , currently Previous delivery, antepartum condition or complication Previous delivery, antepartum Obesity affecting in third trimester Cellulitis Child attention deficit disorder Depressive disorder 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 Lianne Flores MD 12/03/2018 8:04 AM Associated attestation - Candace Peacock MD - 12/04/2018 10:33 AM CDT I have reviewed the tracing and concur with the interpretation. Candace Peacock MD * Lianne Flores MD - 12/01/2018 2:03 PM CDTAssociated Order(s): NONSTRESS TEST Name: Cait Mathews Date of : 1995 Today's Date: 12/01/2018 Start: 1300 Stop: 1348 NST RESULTS ([facility]) OBJECTIVE FINDINGS Temp: 98 ??F (36.7 ??C), Pulse: 73, Resp: 20, BP: 128/77 NST Indication(s): Placenta Previa Uterine Irritability: No Contractions: Irregular (x1) OBJECTIVE FINDINGS Movement: Present Monitoring Mode: External Baseline: 140 BPM Variability: Moderate Decelerations: Variable Accelerations: Yes OTHER INFORMATION Inpatient Interventions: None Maria E Farooq RN Non-Stress Test Indications: Patient Active Problem List: Tobacco abuse Supervision of high risk , antepartum Hx of preeclampsia, prior , currently Previous delivery, antepartum condition or complication Previous delivery, antepartum Obesity affecting in third trimester Cellulitis Child attention deficit disorder Depressive disorder 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 Lianne Flores MD 12/02/2018 6:51 AM Associated attestation - Candace Peacock MD - 12/02/2018 9:51 AM CDT I have reviewed the tracing and concur with the interpretation. Candace Peacock MD * Lianne Flores MD - 11/30/2018 9:11 AM CDTAssociated Order(s): NONSTRESS TEST Name: Cait Mathews Date of : 1995 Today's Date: 11/30/2018 Start: 832 Stop: 910 NST RESULTS ([facility]) OBJECTIVE FINDINGS Temp: 97.8 ??F (36.6 ??C), Pulse: 62, Resp: 18, BP: 134/74 NST Indication(s): Placenta Previa Uterine Irritability: No Contractions: Not present OBJECTIVE FINDINGS Movement: Present Monitoring Mode: External Baseline: 135 BPM Variability: Moderate Decelerations: None Accelerations: Yes OTHER INFORMATION Inpatient Interventions: None Charlene Storm RN Non-Stress Test Indications: Patient Active Problem List: Tobacco abuse Supervision of high risk , antepartum Hx of preeclampsia, prior , currently Previous delivery, antepartum condition or complication Previous delivery, antepartum Obesity affecting in third trimester Cellulitis Child attention deficit disorder Depressive disorder 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 Lianne Flores MD 12/01/2018 8:34 AM Associated attestation - Candace Peacock MD - 12/04/2018 10:33 AM CDT I have reviewed the tracing and concur with the interpretation. Candace Peacock MD * Lianne Flores MD - 11/29/2018 4:23 PM CDTAssociated Order(s): NONSTRESS TEST Name: Cait Mathews Date of : 1995 Today's Date: 11/29/2018 Start: 1558 Stop: 1623 NST RESULTS ([facility]) OBJECTIVE FINDINGS Temp: 98.2 ??F (36.8 ??C), Pulse: 77, Resp: 20, BP: 123/79 NST Indication(s): Placenta Previa Uterine Irritability: No Contractions: Not present OBJECTIVE FINDINGS Movement: Present Monitoring Mode: External Baseline: 150 BPM Variability: Moderate Decelerations: Variable Accelerations: Yes OTHER INFORMATION Inpatient Interventions: None Charlene Storm RN Non-Stress Test Indications: Patient Active Problem List: Tobacco abuse Supervision of high risk , antepartum Hx of preeclampsia, prior , currently Previous delivery, antepartum condition or complication Previous delivery, antepartum Obesity affecting in third trimester Cellulitis Child attention deficit disorder Depressive disorder 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 Lianne Flores MD 11/30/2018 6:33 AM Associated attestation - Candace Peacock MD - 12/04/2018 10:32 AM CDT I have reviewed the tracing and concur with the interpretation. Candace Peacokc MD * Lianne Flores MD - 11/29/2018 10:51 AM CDTAssociated Order(s): NONSTRESS TEST Name: Cait Mathews Date of : 1995 Today's Date: 11/29/2018 Start: 1009 Stop: 1051 NST RESULTS ([facility]) OBJECTIVE FINDINGS Temp: 98.6 ??F (37 ??C), Pulse: 72, Resp: 18, BP: 131/83 NST Indication(s): Placenta Previa Uterine Irritability: Yes Contractions: (rare) Duration (sec) Range: 50 OBJECTIVE FINDINGS Movement: Present Monitoring Mode: External Baseline: 145 BPM Variability: Moderate Decelerations: None Accelerations: Yes OTHER INFORMATION Inpatient Interventions: None Charlene Storm RN Non-Stress Test Indications: Patient Active Problem List: Tobacco abuse Supervision of high risk , antepartum Hx of preeclampsia, prior , currently Previous delivery, antepartum condition or complication Previous delivery, antepartum Obesity affecting in third trimester Cellulitis Child attention deficit disorder Depressive disorder 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 Lianne Flores MD 11/30/2018 6:34 AM Associated attestation - Candace Peacock MD - 12/04/2018 10:32 AM CDT I have reviewed the tracing and concur with the interpretation. Candace Peacock MD * Lianne Flores MD - 11/29/2018 1:16 AM CDTAssociated Order(s): NONSTRESS TEST Procedure(s): NONSTRESS TEST Name: Cait Mathews Date of : 1995 Today's Date: 11/29/2018 Start: 2355 Stop: 48 NST RESULTS ([facility]) OBJECTIVE FINDINGS Temp: 98.1 ??F (36.7 ??C), Pulse: 99, Resp: 18, BP: 121/65 NST Indication(s): Placenta Previa Uterine Irritability: Yes Contractions: Not present OBJECTIVE FINDINGS Movement: Present Monitoring Mode: External Baseline: 160 BPM (changes to 140 at 0016) Variability: Moderate Decelerations: None Accelerations: Yes OTHER INFORMATION Martha Pineda RN Non-Stress Test Indications: Patient Active Problem List: Tobacco abuse Supervision of high risk , antepartum Hx of preeclampsia, prior , currently Previous delivery, antepartum condition or complication Previous delivery, antepartum Obesity affecting in third trimester Cellulitis Child attention deficit disorder Depressive disorder 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 Lianne Flores MD 11/29/2018 9:44 AM Associated attestation - Candace Peacock MD - 11/29/2018 10:24 PM CDT I have reviewed the tracing and concur with the interpretation. Candace Peacock MD * Lianne Flores MD - 11/28/2018 6:24 PM CDTAssociated Order(s): NONSTRESS TEST Name: Cait Mathews Date of : 1995 Today's Date: 11/28/2018 Start: 1738 End: 1820 NST RESULTS ([facility]) OBJECTIVE FINDINGS , Pulse: 89, Resp: 18, BP: 154/79 NST Indication(s): Placenta Previa Uterine Irritability: Yes Contractions: Not present Frequency: 0 Duration (sec) Range: 0 OBJECTIVE FINDINGS Movement: Present Monitoring Mode: External Baseline: 150 BPM Variability: Moderate Decelerations: Variable Accelerations: Yes OTHER INFORMATION Marci Mejia RN Non-Stress Test Indications: Patient Active Problem List: Tobacco abuse Supervision of high risk , antepartum Hx of preeclampsia, prior , currently Previous delivery, antepartum condition or complication Previous delivery, antepartum Obesity affecting in third trimester Cellulitis Child attention deficit disorder Depressive disorder 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 Lianne Flores MD 11/29/2018 9:45 AM Associated attestation - Candace Peacock MD - 11/29/2018 10:24 PM CDT I have reviewed the tracing and concur with the interpretation. Candace Peacock MD * Lianne Flores MD - 11/28/2018 11:33 AM CDTAssociated Order(s): NONSTRESS TEST Name: Cait Mathews Date of : 1995 Today's Date: 11/28/2018 Start: 1020 End: 1058 NST RESULTS ([facility]) OBJECTIVE FINDINGS Temp: 98 ??F (36.7 ??C), Pulse: 77, Resp: 18, BP: 131/84 NST Indication(s): Placenta Previa Uterine Irritability: No Contractions: Not present Frequency: 0 Duration (sec) Range: 0 OBJECTIVE FINDINGS Movement: Present Monitoring Mode: External Baseline: 140 BPM Variability: Moderate Decelerations: Variable Accelerations: Yes OTHER INFORMATION Marci Mejia, RN Non-Stress Test Indications: Patient Active Problem List: Tobacco abuse Supervision of high risk , antepartum Hx of preeclampsia, prior , currently Previous delivery, antepartum condition or complication Previous delivery, antepartum Obesity affecting in third trimester Cellulitis Child attention deficit disorder Depressive disorder 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 Lianne Flores MD 11/29/2018 9:46 AM Associated attestation - Candace Peacock MD - 11/29/2018 10:23 PM CDT I have reviewed the tracing and concur with the interpretation. 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 Lianne Flores MD 11/28/2018 7:41 AM Associated attestation - Candace Peacock MD - 11/28/2018 9:20 PM CDT I have reviewed the tracing and concur with the interpretation. Candace Peacock MD * Lianne Flores MD - 11/27/2018 11:15 PM CDTAssociated Order(s): NONSTRESS TEST Procedure(s): NONSTRESS TEST NST Start:11-27-182231 Stop:11-27-18; 2314 Name: Cait Mathews Date of : 1995 Today's Date: 11/28/2018 NST RESULTS (HERNADEZ) OBJECTIVE FINDINGS Temp: 98.2 ??F (36.8 ??C), Pulse: 70, Resp: 16, BP: 141/82 NST Indication(s): Placenta Previa Uterine Irritability: Yes Contractions: Not present OBJECTIVE FINDINGS Movement: Present Monitoring Mode: External Baseline: 150 BPM Variability: Moderate Decelerations: None Accelerations: Yes OTHER INFORMATION Inpatient Interventions: None Elizabeth Machuca RN Non-Stress Test Indications: Patient Active Problem List: Tobacco abuse Supervision of high risk , antepartum Hx of preeclampsia, prior , currently Previous delivery, antepartum condition or complication Previous delivery, antepartum Obesity affecting in third trimester Cellulitis Child attention deficit disorder Depressive disorder 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 Lianne Flores MD 11/28/2018 7:40 AM Associated attestation - Candace Peacock MD - 11/28/2018 9:19 PM CDT I have reviewed the tracing and concur with the interpretation. Candace Peacock MD * Lianne Flores MD - 11/27/2018 9:19 AM CDTProcedure(s): NONSTRESS TEST Name: Cait Mathews Date of : 1995 Today's Date: 11/27/2018 NST RESULTS (HERNADEZ) OBJECTIVE FINDINGS , , , NST Indication(s): Placenta Previa Uterine Irritability: Yes Contractions: Not present OBJECTIVE FINDINGS Movement: Present Monitoring Mode: External Baseline: 140 BPM Variability: Moderate Decelerations: None Accelerations: Yes OTHER INFORMATION Inpatient Interventions: None Keshia Bey RN Start 843 End 918 Non-Stress Test Indications: Patient Active Problem List: Tobacco abuse Supervision of high risk , antepartum Hx of preeclampsia, prior , currently Previous delivery, antepartum condition or complication Previous delivery, antepartum Obesity affecting in third trimester Cellulitis Child attention deficit disorder Depressive disorder 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 Lianne Flores MD 11/28/2018 7:41 AM Associated attestation - Candace Peacock MD - 11/28/2018 9:18 PM CDT I have reviewed the tracing and concur with the interpretation. 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 Amadou Roberts MD 11/27/2018 7:40 AM Associated attestation - Cheryl Sumner MD - 11/27/2018 1:28 PM CDT NST reactive Cheryl Sumner MD 11/27/2018 1:28 PM MFM * Elizabeth Machuca RN - 11/26/2018 11:12 PM CDTAssociated Order(s): NONSTRESS TEST NST Start:11-26-182238 Stop:11-26-182311 Name: Cait Mathews Date of : 1995 Today's Date: 11/26/2018 NST RESULTS (HERNADEZ) OBJECTIVE FINDINGS Temp: 98 ??F (36.7 ??C), Pulse: 98, Resp: 16, BP: 119/63 NST Indication(s): Placenta Previa Uterine Irritability: Yes Contractions: Not present OBJECTIVE FINDINGS Movement: Present Monitoring Mode: External Baseline: 140 BPM Variability: Moderate Decelerations: None Accelerations: Yes OTHER INFORMATION Inpatient Interventions: None Elizabeth Machuca RN Associated attestation - Amadou Roberts MD - 11/27/2018 7:43 AM CDT Non-Stress Test Indications: Patient Active Problem List: Tobacco abuse Supervision of high risk , antepartum Hx of preeclampsia, prior , currently Previous delivery, antepartum condition or complication Previous delivery, antepartum Obesity affecting in third trimester Cellulitis Child attention deficit disorder Depressive disorder 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 Amadou Roberts MD 11/27/2018 7:43 AM * Charlene Storm RN - 11/26/2018 5:30 PM CDTAssociated Order(s): NONSTRESS TEST Name: Cait Mathews Date of : 1995 Today's Date: 11/26/2018 Start: 164 Stop: 1729 NST RESULTS (HERNADEZ) OBJECTIVE FINDINGS Temp: 98.9 ??F (37.2 ??C), , Resp: 20, BP: 126/64 NST Indication(s): Placenta Previa, Vaginal bleeding Uterine Irritability: No Contractions: Not present OBJECTIVE FINDINGS Movement: Present Monitoring Mode: External Baseline: 145 BPM Variability: Moderate Decelerations: None Accelerations: Yes OTHER INFORMATION Inpatient Interventions: None Charlene Storm RN Associated attestation - Amadou Roberts MD - 11/27/2018 7:44 AM CDT Non-Stress Test Indications: Patient Active Problem List: Tobacco abuse Supervision of high risk , antepartum Hx of preeclampsia, prior , currently Previous delivery, antepartum condition or complication Previous delivery, antepartum Obesity affecting in third trimester Cellulitis Child attention deficit disorder Depressive disorder 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 Amadou Roberts MD 11/27/2018 7:44 AM * Charlene Storm RN - 11/26/2018 12:59 PM CDTAssociated Order(s): NONSTRESS TEST Name: Cait Mathews Date of : 1995 Today's Date: 11/26/2018 c/o severe abdominal pain Start: 1125 Stop: 1259 NST RESULTS (HERNADEZ) OBJECTIVE FINDINGS , , , BP: 146/88 NST Indication(s): Placenta Previa, Vaginal bleeding Uterine Irritability: No Contractions: Not present OBJECTIVE FINDINGS Movement: Present Monitoring Mode: External Baseline: 135 BPM Variability: Moderate Decelerations: None Accelerations: Yes OTHER INFORMATION Inpatient Interventions: None Charlene Storm RN Associated attestation - Amadou Roberts MD - 11/27/2018 7:44 AM CDT Non-Stress Test Indications: Patient Active Problem List: Tobacco abuse Supervision of high risk , antepartum Hx of preeclampsia, prior , currently Previous delivery, antepartum condition or complication Previous delivery, antepartum Obesity affecting in third trimester Cellulitis Child attention deficit disorder Depressive disorder 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 Amadou Roberts MD 11/27/2018 7:44 AM * Charlene Storm RN - 11/26/2018 10:31 AM CDTAssociated Order(s): NONSTRESS TEST Name: Cait Mathews Date of : 1995 Today's Date: 11/26/2018 Start: 956 Stop: 1031 NST RESULTS (HERNADEZ) OBJECTIVE FINDINGS Temp: 98.1 ??F (36.7 ??C), , Resp: 20, BP: 122/71 NST Indication(s): Placenta Previa, Vaginal bleeding Uterine Irritability: No Contractions: Not present OBJECTIVE FINDINGS Movement: Present Monitoring Mode: External Baseline: 130 BPM Variability: Moderate Decelerations: None Accelerations: Yes OTHER INFORMATION Inpatient Interventions: None Charlene Storm RN Associated attestation - Amadou Roberts MD - 11/27/2018 7:44 AM CDT Non-Stress Test Indications: Patient Active Problem List: Tobacco abuse Supervision of high risk , antepartum Hx of preeclampsia, prior , currently Previous delivery, antepartum condition or complication Previous delivery, antepartum Obesity affecting in third trimester Cellulitis Child attention deficit disorder Depressive disorder 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 Amadou Roberts MD 11/26/2018 8:16 AM Associated attestation - Cheryl Sumner MD - 11/26/2018 11:57 AM CDT NST reactive Cheryl Sumner MD 11/26/2018 11:57 AM MFM documented in this encounter Consult Notes * Candis Moreau, EXECUTIVE CHEF ASSISTANT - 12/23/2018 3:12 PM CDTAssociated Order(s): IP CONSULT TO BOLTING MACHINE OPERATOR NEWS ANCHOR CASE MANAGEMENT PSYCHOSOCIAL ASSESSMENT Reason for Referral: Pt is a 23 year old at 36w gestation. Referral received due to pt having a history of Depression. Per the pt, she has no issues with depression at this time. Chart also mentions, many years ago, pt had a problem with ADHD. Pt has been in the hospital for the past 28 nights. This in itself can be a difficult situation. Social work had not received a consult on this pt in the past 28 days. This is pt's 2nd little girl. Pt has a 5 yr old daughter at home staying with family. 5 yr old's father is supportive of her. Pt has been with the FOB of this baby for the past year. Pt suffered from Placenta Previa in her third trimester as well as Gestational Diabetes. Pt was hoping that she would not have to have a hysterectomy after her C Section. Pt was in surgery 6 hours and did have to have the hysterectomy.. Baby is in the NICU, but is now breathing on her own and doing well. Hopefully baby will be able to join her mother in her room soon. PPD and the symptoms were discussed. The pt is aware that she should notify her medical provider should the symptoms arise. Pt states that she has not suffered from PPD in the past. Patient diagnosis and relevant medical history: DX: The primary encounter diagnosis was Vaginal bleeding. Diagnoses of Gestational hypertension, antepartum, Chest pain, unspecified type, Placenta previa in third trimester, Insulin controlled gestational diabetes mellitus (GDM) in third trimester, 34 weeks gestation of , Diagnosis unknown, Pre-eclampsia in third trimester, and Tachypnea were also pertinent to this visit. Father of baby: Matt Snyder, . He is employed as a Pattern Weaver. He has been by the pt's side during her hospitalization. Language Barriers: na Cultural Barriers: na Ethnicity: White/ Lang: URDU Patient's Address: [facility] [address], [place] [address] Pt's phone number: [phone] Family Support (name and phone) Extended Emergency Contact Information Primary Emergency Contact: LlilianAshleeMatt [facility] Mobile Relation: Significant other Secondary Emergency Contact: Malika Mathews [facility] Mobile Relation: Mother Alternative Leadership Development Instructor Family Strengths: Pt is from a large family. Her siblings also live in [place]. Some of S.O.s family also live in [place]. Family Dynamic/Household Composition/Other children: 5 yr old Leroy. Alcohol/Drug/Smoking History (including history of tx): Psychiatric History: History of Depression (no information on the history given). 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 Education: 10th grade. Government assistance TANF (Temporary Assistance to Needy Families)- na Food [place]- yes WIC- yes SSI- Insurance: Payor/Plan Subscriber Name Rel Member # Group # [facility] * [facility] [id number] [address] [place] [address] Resources Utilized: na Designated Racket Stringer: Dr. Karen Singh Referrals: Nurses for Newborns- na Child protection referral- na DFS/DCFS-Name of worker: Phone number: Other- Does the family have the following basic discharge needs? Utilities- yes Telephone- yes Car seat- yes Crib- yes Baby clothing- yes Lokie Engineer/School: Parents are unsure about child and family services worker. 5 yr old daughter is starting Kindergarten. Transportation: car. Family planning: The pt and her NEWS ANCHOR have discussed family planning. Pt has an OB in the [place] area. Recommended discharge plan for : Discharge home with family when medically stable. Candis Moreau LCSW [phone] * Guerda Weaver MD - 11/30/2018 1:49 PM CDTAssociated Order(s): IP CONSULT TO NEONATOLOGY Maternal Consult Note Cait Mathews 556 Today's Date: 11/30/2018 Estimated Gestational Age: 33w0d ULISES: 01/18/19 Estimated Weight: 2214 g (81%ile) on 11/24 Infant Name: Mine Reason for requesting consultation: Risk for early delivery 2/2 placenta previa Findings: Maternal History: OB History Para Term AB Living 2 1 0 1 0 1 SAB TAB Ectopic Multiple Live Births 0 0 0 0 1 Past Medical History: Diagnosis Date ??? Chlamydia contact, treated ??? History of asthma Asthma ??? History of sexually transmitted disease ??? Placenta previa ??? Preeclampsia 2013 ??? Tobacco use Current Medications: 0.9% NaCl injection 3 mL, Intracatheter, q8h amoxicillin (AMOXIL) tablet 875 mg, Oral, q12h docusate sodium (COLACE) capsule 100 mg, Oral, BID insulin detemir (LEVEMIR) pen 18 Units, Subcutaneous, AT BEDTIME iron polysaccharides (NIFEREX 150) capsule 150 mg, Oral, QDAY vitamin with iron tablet 1 tablet, Oral, QDAY No current facility-administered medications on file prior to encounter. Current Outpatient Prescriptions on File Prior to Encounter Medication Sig Dispense Refill ??? amoxicillin (AMOXIL) 875 MG tablet Take 875 mg by mouth 2 times daily ??? Vit-Fe Fumarate-FA ( VITAMIN) 27-0.8 MG tablet Take 1 tablet by mouth once daily Social History: reports that she has been smoking. She has been smoking about 0.25 packs per day. She has never used smokeless tobacco. She reports that she does not drink alcohol or use illicit drugs. Family History: family history is not on file. Racket Stringer: Unknown Feeding: discussed, and patient not likely to breastfeed Briefly discussed adverse outcome risks with 33w0d prematurity with mother at bedside including: BIOLOGICAL ENGINEER/development - Discussed effects on feeding ability, poor regulation of temperature and respiratory centers. Increased risk of intracranial/intraventricular hemorrhage compared with term , less significant with increasing gestational age at delivery. Future risk for developmental delay, and in severe cases cerebral palsy. Recommended early intervention services and OT/PT as needed for concerns. Respiratory - Discussed possibility of needing respiratory support including intubation with mechanical ventilation, and possible need for surfactant. Increased risk of bronchopulmonary dysplasia with superintendent marine oil terminal prognosis related to severity of condition. steroids may assist lung maturity. Delayed feeding - Discussed poor feeding/swallowing coordination. Possible need for IV nutrition with TPN and delayed GI feeding. Possible need for gavage feeding by NGT. Delayed feeding may result in oral aversion and oral motor dysfunction. Recommended early expression of breastmilk. Recommend c/s for additional support. Hyperbilirubinemia- Discussed jaundice requiring phototherapy given combined risk factors of prematurity, delayed enteric feeds, and possibility of infection or any condition which may result in hemolysis. Immature immune system- Discussed risk of sepsis and susceptibility of infection. Discussed need for antibiotic treatment after with pending sepsis evaluation. Immediate and prolonged hospital stay - Discussed possible need for ICU care. Discussed possible need for IV lines, umbilical/central lines, possible blood transfusion, intubation/ventilator support.Discussed possible need for transfer to [facility] early in life. Impression: 23 year old y/o woman at 33w0d EGA gestation with threatened PTL. Discussed risks of prematurity: intubation/respiratory support, infection, need for central lines, prolonged NICU stay, feeding support and transfer to [facility]. Patient expresses understanding. All questions answered. 1. Introduced above risks and general infant care, patient understood and questions were answered. 2. Mother aware to contact our team with further questions. 3. Plan to provide neonatology support in case of delivery. Thank you for the consult, please contact us for questions. Guerda Weaver MD NICU Resident Associated attestation - Diomedes Blackwell MD - 12/01/2018 3:35 PM CDT I reviewed this patient, including the history and prior conversations with the patient, with Dr. Weaver. I personally spent 20 minutes on this consult, more than half of which was spent in counseling and coordination of care. I reiterated the information given to her by our resident (as documented above) and answered any additional questions. MOther is resting comfortably in bed. Her other child is now five but was born at 34 weeks and had to stay in our NICU for about 2 weeks. Requesting Provider: Dr. Peacock Reason For consult: Prematurity Diomedes Blackwell MD documented in this encounter Nursing Notes * Chanda Valdivia, RN - 12/26/2018 5:33 PM CDT This note was copied from a baby's chart. consultation: Cait states she will not be discharged tonight but plans on going home tomorrow. Encouraged to leave loaner breast pump when baby is being discharged. States her friend is loaning her a Medela brand breast pump if she needs a pump for home use. Encouraged to use breast pump as instructed including at night. Encouragement & support given. Chanda Valdivia RNC, BSN, IBCLC * Ginger Franco RN - 12/26/2018 11:00 AM CDT Cait planning on discharge today. She reports she is pumping every 2 hours during the day, but having difficulties waking at night even with setting alarm. Most recently obtained 25 mLs. Encouraged pumping right before bed, setting an alarm for 4 hours later, and pumping first thing when she wakes in the morning. Encouraged she pump at least every 2 hours during the day. Explained why it is important to pump at night. Reviewed milk collection, labeling, and storage guidelines. Provided her amanual hand pump, extra storage bottles, and a cooler bag to take home. Cait currently waiting for approval for a breast pump through her insurance. Loaned her loaner breast pump # 81 to use. Educated on its use and the loaner program. Explained it will need to be returned when she receives her insurance pump or when is discharged, whichever comes first. Loaner agreement form reviewed and signed. Reminded to bring all pump parts, including tubing, to NICU with her so she can pump at infants bedside. Encouraged she continue to track pump sessions/volumes on pump log and pointed out LC number to call with questions/concerns as needed. Ginger Franco, MSN, RN, IBCLC * Carlos Alcala RN - 12/25/2018 11:24 AM CDT Consult. Cait has been pumping, but slept through the night . Re educated her on the frequency of pumping, and the importance of night time pumping. Pumping about 20 ml's now, and discussed nursing attempts as well. Cait may be discharged today, and was informed of our Loaner pump program. A fax was sent on her behalf to [facility] for a personal breast pump. Carlos Alcala RN, IBCLC * Carlos Alcala RN - 12/24/2018 5:07 PM CDT Consult. Cait delivered a baby 3 days ago, and has decided to provide breast milk for her baby. She pumped 2 weeks for her first baby. Pumping was initiated in NICU, using initiation setting, and some milk obtained. Reviewed pumping every 2-3 hours during the day and night time every 4hours. She has [facility] and we will fax a request to see if she is eligible for a breast pump. Carlos Alcala RN, IBCLC documented in this encounter OR Notes * Operative - Bennett Carmona MD - 12/21/2018 5:38 PM CDT 12/21/2018 5:38 PM R4 Hysterectomy Procedure Note- Supracervical Hysterectomy Indications: placenta previa, placenta accreta spectrum Pre-operative Diagnosis: 23 year old year old female at 36w0d with induced hypertension and as above Post-operative Diagnosis: as above Procedure: Supracervical hysterectomy Surgeons: Dr. Bennett Carmona performed hysterectomy and Dr. Gely Medina MD performed section Assistants: Tg Perez MD, Bettina Nguyen MD, Sarah Chatman MD Anesthesia: spinal then genneral Findings: Information for the patient's : Reid Baby Girl Cait [[id number]] Date of 12/21/2018 Time of : 11:53 AM Sex: Female Weight: 3060 g (6 lb 11.9 oz) (1 min): 8 (5 min): 4 (10 min): 9 Upon pfannenstiel entry into the abdomen, abnormal vasculature and texture of the superior lower uterine segment into the mid anterior uterus concerning for placenta accreta spectrum. Otherwise, tubes and ovaries normal. Minimal to no adhesive disease encountered. After delivery of the fetus from fundal hysterotomy using breech maneuvers and clear fluid and after hysterectomy, the specimen was found to have morbidly adherent. Some cervical tissue was left onto the vaginal cuff, although most removed Measured Blood Loss: 1792 mL Drains: Chapin catheter Total IV Fluids: 3200 mL UOP: 625 mL Transfused blood products: 1 u pRBCs, [address] Medina performed the section, Dr. Carmona performed supracervical hysterectomy. Please see Dr. Medina's note for details. Patient was under general anesthesia, in dorsal lithotomy position, with skin incision midline vertical from 2 cm above umbilicus, T down to pfannenstiel incision. The Hysterotomy was closed with 4 towel clamps for hemostasis. The right adnexa were identified and ligasure was used to seal and divide the right uteroovarian ligament and right fallopian tube with a three-seal technique (2 seal cycles on patient side and 1 seal on specimen side followed by dividing the pedicle). Dissection of the broad ligament was carried down to the right round ligament which was sealed and divided with the ligasure. Right ureter was identified. The anterior broad ligament peritoneum was dissected down to the vesicoperitoneum reflection and then up the the left round ligament. The left round ligament was sealed and divided with the ligasure. The left ureter was identified. The left adnexa were skeletonized and the left uterovarian ligament and fallopian tube were sealed and divided with ligasure in the three seal technique. With left ureter identified, the ligasure was used to achieve hemostasis of small vasculature surroundingleft adnexa. Dissection of the posterior broad ligament was carried out with electrocautery bilaterally. Bilateral uterine arteries were identified where were clamped and sealed with ligasure with 3-seal technique. There bladder flap was bluntly developed with ease with digital dissection. A bulb suction on a tenaculum was placed in the vagina to identify cervico-vaginal interface. The Ligasure was used to lateralize and isolate the bilateral uterine vessels to the level of the cervico-vaginal interface. Leonarda clamps were used to serially clamp across the vagina. Ligasure and Mayos were used to amputate the uterus from the cervix/vagina. 0-vicryl Leonarda sutures were used to close the vaginal cuff. The uterus and most of cervix were amputated from the vagina/cervix and sent to pathology. Some cervical tissue was noted left onto the vaginal cuff, although most removed. Two further figure of eightswere placed to reenforce the left vaginal cuff. Hemostasis noted from all pedicles. Irrigation until clear. The fascial was closed with 4x 0-looped PDS, one from either end of the pfannenstiel, with 2 cm of overlap of both across the midline. A third PDS was started at the inferior midline incision, anchored 2 cm below the midline vertical incision. A 4th looped PDS was started at the cranial end of the m idline vertical incision, and again there was 2 cm of overlap where they met. The tissue around theumbilicus was undermined. Irrigation was performed followed by judicious use of electrocautery. 5x 2-0 plain gut sutures were used to re approximate the subcutaneous tissue. Bulb suction was removed from the vagina. Patient was brought down from dorsal lithotomy position. Instrument, sponge, and needle counts were correct prior the abdominal closure and at the conclusionof the case. Patient was taken to the Labor and delivery room in a stable condition. Drs. Carmona and Carol were present and scrubbed for the entirety of their procedures. Tg Perez MD 12/21/2018 6:23 PM I have reviewed the above and agree with the documentation. I was present and directly participatedin the entire procedure. Difficult case as for removing entire cervix. In setting of significant acretta, did best could to get most of the cervix out without risking more harm with further dissection. * Operative - Tg Perez MD - 12/21/2018 5:06 PM CDT 12/21/2018 5:07 PM R4 Hysterectomy Procedure Note- Section Indications: placenta previa, placenta accreta spectrum Pre-operative Diagnosis: 23 year old year old female at 36w0d with induced hypertension and as above Post-operative Diagnosis: as above Procedure: Supracervical hysterectomy Surgeons: Dr. Gely Medina MD performed section and Dr. Bennett Carmona performed hysterectomy Assistants: Tg Perze MD, Bettina Nguyen MDSarah MD Anesthesia: spinal then genneral Findings: Information for the patient's : [facility] Baby Girl Cait [[id number]] Date of 12/21/2018 Time of : 11:53 AM Sex: Female Weight: 3060 g (6 lb 11.9 oz) (1 min): 8 (5 min): 4 (10 min): 9 Upon pfannenstiel entry into the abdomen, abnormal vasculature and texture of the superior lower uterine segment into the mid anterior uterus concerning for placenta accreta spectrum. Otherwise, tubes and ovaries normal. Minimal to no adhesive disease encountered. After delivery of the fetus from fundal hysterotomy using breech maneuvers and clear fluid and after hysterectomy, the specimen was found to have morbidly adherent Measured Blood Loss: 1792 mL Drains: Chapin catheter Total IV Fluids: 3200 mL UOP: 625 mL Transfused blood products: 1 u pRBCs, 1 u FFP Procedure: The patient was taken to the operating room after informed consent was given. After induction of spinal anesthesia, the patient was prepped and draped in the usual sterile manner. A time out was held and the patient's name and the procedure were confirmed. Adequacy of anesthesia was confirmed. A Pfannenstiel incision was made and carried down through the subcutaneous tissue to the fascia. Fascial incision was made and extended transversely with the Moffett scissors. Kochers were used to graspthe fascia at the anterior aspect of the incision which was tented upward and the underlying rectusmuscles dissected off sharply. Attention was then turned to the fascia at the inferior aspect of the incision which in a similar fashion was tented upward and the underlying rectus muscles dissected off sharply. Midline of the rectus muscles were identified and the peritoneum entered bluntly and the muscles laterally and manually . The peritoneum was identified and entered. Findings as above: abnormal vasculature and texture of the superior lower uterine segment into the mid anterior uterus concerning for placenta accreta spectrum. At this time, Dr. Carmona from [facility] was called to OR. Mother was verbally consented for hysterectomy. Patient repositioned to dorsal lithotomy. Dr. Carmona in the room. General anesthesia was induced. The skin incision was extended in a T- manner, midline vertical manner to 2 cm above the umbilicus with scalpel and then carried down sharply. The midline of the rectus was identified and the fascia and peritoneum were divided and entered with electrocautery, with hand below the peritoneum during this dissection. A fundal uterine incision was made was made. A 3060 gram infant delivered from a vertex presentation with breech maneuvers. Apgars as above. Cord blood not collected. The cord was tied off with a 0-vycril free tie. Please see Dr. Carmona's note for the remainder of the procedure: Supracervical hysterectomy. Tg Perez MD 12/21/2018 5:07 PM Associated attestation - Gely Medina MD - 12/22/2018 8:20 AM CDT I was present and participated in this hysterectomy, performed at 36w0d for a known posterior previa with anterior succenturiate placental lobe. On abdominal entry we found that anterior lobe bulging through the myometrium, to the serosal layer. At that time fishing worker oncologist Dr. Carmona was called for assistance and the patient was repositioned in stirrups. Once Dr. Carmona arrived, Cait was placed under GETA and a vertical skin incision was made to just above the umbilicus in order to allow exteriorization of the uterus so that a fundal incision could be made to avoid the placenta. The fetus was delivered from the fundus by breech extraction and delayed cord clamping was performed. Thecord was then tied and placed inside the uterus and the hysterotomy was closed with towel clips just prior to the start of the hysterectomy. The patient tolerated the procedure well and was given just one unit of pRBCs and one unit of FFP. Gely Medina MD MPH M STAFF * Brief Op Note - Tg Perez MD - 12/21/2018 3:21 PM CDT Brief Post-Operative Note 12/21/2018 Cait Mathews Date of Surgery: 12/21/2018 Surgeon(s) and Role: * Gely Medina MD - Primary * Tg Perez MD - Resident - Assisting * Edilma Nguyen MD - Resident - Assisting * Sarah Chatman MD - Fellow * Bennett Carmona MD - Surgeon Assisting Anesthesiologist: Tai Tellez MD CLARIFIER: Irene Obrien APRN-CLARIFIER; Elizabeth Sandoval APRN-RETA * No Diagnosis Codes entered * Postoperative Diagnosis: Placenta accreta spectrum, placenta previa Procedure(s) and Anesthesia Type: * SECTION (REPEAT) - Epidural * HYSTERECTOMY TOTAL ABDOMINAL (AL) - General Findings: Upon pfannenstiel entry into the abdomen, abnormal vasculature and texture of the lower uterine segment into the mid anterior uterus concerning for placenta accreta spectrum. After deliveryof the fetus from fundal hysterotomy using breech maneuvers and clear fluid and after hysterectomy,the specimen was found to have morbidly adherent placentation Disposition: Labor and delivery Status: Stable Drains: chapin catheter Pack: none UOP: 625 cc IVF 3200 cc EBL 1792 cc Transfused blood products: 1 u pRBCs, 1 u FFP EBL: * No values recorded between 12/21/2018 11:01 AM and 12/21/2018 3:08 PM * Specimen(s): ID Type Source Tests Collected by Time Destination A : uterus and placenta Path Uterus GROSS + MICRO EXAM (STL) Gely Medina MD 12/21/2018 [id number] Implant(s): * No implants in log * Operative note dictated: to follow documented in this encounter Plan of Treatment Not on file documented as of this encounter Procedures Procedure Name Priority Date/Time Associated Diagnosis Comments LAB RESULTS ORDER 12/28/2018 10: 22 PM CDT EKG 12-LEAD STAT 12/23/2018 10:47 AM CDT Tachypnea ECHOCARDIOGRAM 2D WITH DOPPLER Routine 12/23/2018 8:38 AM CDT Tachypnea XR CHEST 2VW STAT 12/23/2018 8:34 AM CDT Tachypnea CBC W AUTO DIFFERENTIAL STAT 12/23/2018 7:07 AM CDT COMPREHENSIVE METABOLIC PANEL STAT 12/23/2018 7:07 AM CDT CBC W AUTO DIFFERENTIAL Routine 12/22/2018 7:15 PM CDT XR CHEST 1VW PORTABLE STAT 12/22/2018 8:03 AM CDT Pre-eclampsia in third trimester (HCC) FIBRINOGEN ACTIVITY STAT 12/22/2018 7 :29 AM CDT PTT STAT 12/22/2018 7:29 AM CDT PT-INR STAT 12/22/2018 7:29 AM CDT CBC W AUTO DIFFERENTIAL Routine 12/22/2018 7:29 AM CDT COMPREHENSIVE METABOLIC PANEL STAT 12/22/2018 7:29 AM CDT MAGNESIUM BLOOD STAT 12/22/2018 7:29 AM CDT GLUCOSE - POINT OF CARE Routine 12/22/2018 6:35 AM CDT FIBRINOGEN ACTIVITY STAT 12/21/2018 9 :40 PM CDT PTT STAT 12/21/2018 9:40 PM CDT PT-INR STAT 12/21/2018 9:40 PM CDT PROTEIN CREATININE RATIO URINE RANDOM PNL Routine 12/21/2018 4:19 PM CDT CBC W AUTO DIFFERENTIAL STAT 12/21/2018 4:18 PM CDT COMPREHENSIVE METABOLIC PANEL STAT 12/21/2018 4:18 PM CDT PATHOLOGY TISSUE EXAM (STL) Routine 12/21/2018 12:39 PM CDT Diagnosis unknown TRANSFUSE FRESH FROZEN PLASMA UNIT(S) Routine 12/21/2018 12:29 PM CDT TRANSFUSE RED BLOOD CELL LEUKOREDUCED UNIT(S) Routine 12/21/2018 12:02 PM CDT PREPARE RBC LEUKOREDUCED UNIT STAT 12/21/2018 11:30 AM CDT PREPARE RBC LEUKOREDUCED UNIT Routine 12/21/2018 11:30 AM CDT PREPARE RBC LEUKOREDUCED UNIT Routine 12/21/2018 11:30 AM CDT PREPARE PLATELET PHERESIS UNIT(S) STAT 12/21/2018 11:30 AM CDT PREPARE FFP UNIT(S) STAT 12/21/2018 1 1:30 AM CDT PREPARE FFP UNIT(S) STAT 12/21/2018 1 1:30 AM CDT MO TOTAL ABDOM HYSTERECTOMY 12/21/2018 10:27 AM CDT SECTION 12/21/2018 10:2 7 AM CDT CBC W AUTO DIFFERENTIAL STAT 12/21/2018 8:39 AM CDT COMPREHENSIVE METABOLIC PANEL STAT 12/21/2018 8:39 AM CDT GLUCOSE - POINT OF CARE Routine 12/21/2018 6:15 AM CDT GLUCOSE - POINT OF CARE Routine 12/20/2018 9:48 PM CDT GLUCOSE - POINT OF CARE Routine 12/20/2018 7:17 PM CDT CBC W AUTO DIFFERENTIAL Routine 12/20/2018 4:43 PM CDT GLUCOSE - POINT OF CARE Routine 12/20/2018 2:46 PM CDT GLUCOSE - POINT OF CARE Routine 12/20/2018 12:52 PM CDT GLUCOSE - POINT OF CARE Routine 12/20/2018 11:18 AM CDT PREPARE RBC LEUKOREDUCED UNIT Routine 12/20/2018 6:45 AM CDT TYPE + SCREEN PANEL STAT 12/20/2018 5 :42 AM CDT GLUCOSE - POINT OF CARE Routine 12/20/2018 3:57 AM CDT GLUCOSE - POINT OF CARE Routine 12/19/2018 9:12 PM CDT GLUCOSE - POINT OF CARE Routine 12/19/2018 4:21 PM CDT GLUCOSE - POINT OF CARE Routine 12/19/2018 12:18 PM CDT GLUCOSE - POINT OF CARE Routine 12/19/2018 10:48 AM CDT GLUCOSE - POINT OF CARE Routine 12/19/2018 6:39 AM CDT GLUCOSE - POINT OF CARE Routine 12/18/2018 6:15 PM CDT NONSTRESS TEST Routine 12/18/2018 4:33 PM CDT GLUCOSE - POINT OF CARE Routine 12/18/2018 2:41 PM CDT GLUCOSE - POINT OF CARE Routine 12/18/2018 8:42 AM CDT GLUCOSE - POINT OF CARE Routine 12/18/2018 5:48 AM CDT GLUCOSE - POINT OF CARE Routine 12/17/2018 8:42 PM CDT GLUCOSE - POINT OF CARE Routine 12/17/2018 3:21 PM CDT NONSTRESS TEST Routine 12/17/2018 1:18 PM CDT GLUCOSE - POINT OF CARE Routine 12/17/2018 8:39 AM CDT GLUCOSE - POINT OF CARE Routine 12/17/2018 7:12 AM CDT GLUCOSE - POINT OF CARE Routine 12/17/2018 5:59 AM CDT TYPE + SCREEN PANEL Routine 12/17/2018 5 :40 AM CDT PREPARE RBC LEUKOREDUCED UNIT Routine 12/17/2018 12:30 AM CDT GLUCOSE - POINT OF CARE Routine 12/16/2018 8:03 PM CDT NONSTRESS TEST Routine 12/16/2018 7:03 PM CDT GLUCOSE - POINT OF CARE Routine 12/16/2018 2:59 PM CDT NONSTRESS TEST Routine 12/16/2018 2:05 PM CDT GLUCOSE - POINT OF CARE Routine 12/16/2018 8:14 AM CDT GLUCOSE - POINT OF CARE Routine 12/16/2018 6:03 AM CDT GLUCOSE - POINT OF CARE Routine 12/15/2018 8:47 PM CDT GLUCOSE - POINT OF CARE Routine 12/15/2018 6:43 PM CDT NONSTRESS TEST Routine 12/15/2018 11:47 AM CDT GLUCOSE - POINT OF CARE Routine 12/15/2018 8:30 AM CDT GLUCOSE - POINT OF CARE Routine 12/15/2018 5:48 AM CDT CBC W/O DIFFERENTIAL AM Draw 12/15/2018 5:06 AM CDT COMPREHENSIVE METABOLIC PANEL AM Draw 12/15/2018 5:06 AM CDT GLUCOSE - POINT OF CARE Routine 12/14/2018 9:13 PM CDT GLUCOSE - POINT OF CARE Routine 12/14/2018 5:48 PM CDT NONSTRESS TEST Routine 12/14/2018 12:41 PM CDT GLUCOSE - POINT OF CARE Routine 12/14/2018 12:17 PM CDT SONOGRAM - COMPLETE Routine 12/14/2018 9 :30 AM CDT GLUCOSE - POINT OF CARE Routine 12/14/2018 5:03 AM CDT PREPARE RBC LEUKOREDUCED UNIT Routine 12/14/2018 2:15 AM CDT TYPE + SCREEN PANEL Routine 12/14/2018 1 2:11 AM CDT CBC W AUTO DIFFERENTIAL Routine 12/14/2018 12:11 AM CDT GLUCOSE - POINT OF CARE Routine 12/13/2018 9:17 PM CDT GLUCOSE - POINT OF CARE Routine 12/13/2018 3:22 PM CDT NONSTRESS TEST Routine 12/13/2018 2:22 PM CDT GLUCOSE - POINT OF CARE Routine 12/13/2018 9:57 AM CDT GLUCOSE - POINT OF CARE Routine 12/13/2018 6:53 AM CDT GLUCOSE - POINT OF CARE Routine 12/12/2018 9:07 PM CDT NONSTRESS TEST Routine 12/12/2018 8:39 PM CDT NONSTRESS TEST Routine 12/12/2018 8:39 PM CDT GLUCOSE - POINT OF CARE Routine 12/12/2018 6:02 PM CDT NONSTRESS TEST Routine 12/12/2018 1:55 PM CDT NONSTRESS TEST Routine 12/12/2018 1:55 PM CDT GLUCOSE - POINT OF CARE Routine 12/12/2018 12:56 PM CDT GLUCOSE - POINT OF CARE Routine 12/12/2018 6:32 AM CDT GLUCOSE - POINT OF CARE Routine 12/11/2018 9:22 PM CDT NONSTRESS TEST Routine 12/11/2018 6:56 PM CDT GLUCOSE - POINT OF CARE Routine 12/11/2018 6:42 PM CDT EKG 12-LEAD STAT 12/11/2018 2:22 PM CDT Chest pain, unspecified type GLUCOSE - POINT OF CARE Routine 12/11/2018 1:30 PM CDT COMPREHENSIVE METABOLIC PANEL STAT 12/11/2018 8:48 AM CDT GLUCOSE - POINT OF CARE Routine 12/11/2018 8:18 AM CDT GLUCOSE - POINT OF CARE Routine 12/11/2018 6:16 AM CDT TYPE + SCREEN PANEL Routine 12/11/2018 4 :52 AM CDT CBC W AUTO DIFFERENTIAL AM Draw 12/11/2018 4:52 AM CDT PREPARE RBC LEUKOREDUCED UNIT Routine 12/10/2018 11:15 PM CDT GLUCOSE - POINT OF CARE Routine 12/10/2018 9:01 PM CDT GLUCOSE - POINT OF CARE Routine 12/10/2018 6:52 PM CDT GLUCOSE - POINT OF CARE Routine 12/10/2018 4:05 PM CDT GLUCOSE - POINT OF CARE Routine 12/10/2018 11:24 AM CDT GLUCOSE - POINT OF CARE Routine 12/10/2018 5:04 AM CDT GLUCOSE - POINT OF CARE Routine 12/09/2018 8:04 PM CDT GLUCOSE - POINT OF CARE Routine 12/09/2018 2:36 PM CDT GLUCOSE - POINT OF CARE Routine 12/09/2018 11:41 AM CDT GLUCOSE - POINT OF CARE Routine 12/09/2018 5:18 AM CDT GLUCOSE - POINT OF CARE Routine 12/08/2018 9:31 PM CDT GLUCOSE - POINT OF CARE Routine 12/08/2018 8:01 PM CDT URINE MICROSCOPIC ONLY REFLEX TO CULTURE Routine 12/08/2018 3:20 PM CDT Gestational hypertension, antepartum (HCC) URINALYSIS REFLEX MICROSCOPIC REFLEX CULTURE STAT 12/08/2018 3:20 PM CDT Gestational hypertension, antepartum (HCC) PROTEIN CREATININE RATIO URINE RANDOM PNL Routine 12/08/2018 3:20 PM CDT Gestational hypertension, antepartum (HCC) GLUCOSE - POINT OF CARE Routine 12/08/2018 1:16 PM CDT PREPARE RBC LEUKOREDUCED UNIT Routine 12/08/2018 7:00 AM CDT TYPE + SCREEN PANEL Routine 12/08/2018 5 :49 AM CDT CBC W AUTO DIFFERENTIAL AM Draw 12/08/2018 5:49 AM CDT COMPREHENSIVE METABOLIC PANEL AM Draw 12/08/2018 5:49 AM CDT GLUCOSE - POINT OF CARE Routine 12/08/2018 4:28 AM CDT GLUCOSE - POINT OF CARE Routine 12/07/2018 9:00 PM CDT GLUCOSE - POINT OF CARE Routine 12/07/2018 7:25 PM CDT GLUCOSE - POINT OF CARE Routine 12/07/2018 3:29 PM CDT SONOGRAM - TRANSVAGINAL Routine 12/07/2018 11:10 AM CDT GLUCOSE - POINT OF CARE Routine 12/07/2018 9:52 AM CDT GLUCOSE - POINT OF CARE Routine 12/07/2018 4:21 AM CDT NONSTRESS TEST Routine 12/06/2018 10:23 PM CDT GLUCOSE - POINT OF CARE Routine 12/06/2018 8:53 PM CDT GLUCOSE - POINT OF CARE Routine 12/06/2018 6:40 PM CDT GLUCOSE - POINT OF CARE Routine 12/06/2018 3:02 PM CDT URINE MICROSCOPIC ONLY REFLEX TO CULTURE Routine 12/06/2018 12:53 PM CDT URINALYSIS REFLEX MICROSCOPIC REFLEX CULTURE Routine 12/06/2018 12:53 PM CDT CULTURE URINE Routine 12/06/2018 12:53 PM CDT CBC W AUTO DIFFERENTIAL Routine 12/06/2018 12:53 PM CDT COMPREHENSIVE METABOLIC PANEL Routine 12/06/2018 12:53 PM CDT PROTEIN CREATININE RATIO URINE RANDOM PNL Routine 12/06/2018 12:53 PM CDT GLUCOSE - POINT OF CARE Routine 12/06/2018 11:33 AM CDT GLUCOSE - POINT OF CARE Routine 12/06/2018 5:58 AM CDT NONSTRESS TEST Routine 12/05/2018 8:31 PM CDT GLUCOSE - POINT OF CARE Routine 12/05/2018 7:18 PM CDT GLUCOSE - POINT OF CARE Routine 12/05/2018 12:38 PM CDT SONOGRAM - LIMITED Routine 12/05/2018 9: 36 AM CDT GLUCOSE - POINT OF CARE Routine 12/05/2018 6:00 AM CDT TYPE + SCREEN PANEL Routine 12/05/2018 5 :50 AM CDT CBC W AUTO DIFFERENTIAL Routine 12/05/2018 5:50 AM CDT PREPARE RBC LEUKOREDUCED UNIT Routine 12/05/2018 1:45 AM CDT GLUCOSE - POINT OF CARE Routine 12/04/2018 8:36 PM CDT GLUCOSE - POINT OF CARE Routine 12/04/2018 6:55 PM CDT GLUCOSE - POINT OF CARE Routine 12/04/2018 11:23 AM CDT NONSTRESS TEST Routine 12/04/2018 10:34 AM CDT NONSTRESS TEST Routine 12/04/2018 10:34 AM CDT NONSTRESS TEST Routine 12/04/2018 10:33 AM CDT NONSTRESS TEST Routine 12/04/2018 10:33 AM CDT NONSTRESS TEST Routine 12/04/2018 10:32 AM CDT NONSTRESS TEST Routine 12/04/2018 10:32 AM CDT GLUCOSE - POINT OF CARE Routine 12/04/2018 6:16 AM CDT GLUCOSE - POINT OF CARE Routine 12/03/2018 8:22 PM CDT GLUCOSE - POINT OF CARE Routine 12/03/2018 3:52 PM CDT GLUCOSE - POINT OF CARE Routine 12/03/2018 9:55 AM CDT GLUCOSE - POINT OF CARE Routine 12/03/2018 5:58 AM CDT GLUCOSE - POINT OF CARE Routine 12/02/2018 6:49 PM CDT GLUCOSE - POINT OF CARE Routine 12/02/2018 2:02 PM CDT NONSTRESS TEST Routine 12/02/2018 9:51 AM CDT GLUCOSE - POINT OF CARE Routine 12/02/2018 8:22 AM CDT GLUCOSE - POINT OF CARE Routine 12/02/2018 5:07 AM CDT GLUCOSE - POINT OF CARE Routine 12/01/2018 7:14 PM CDT GLUCOSE - POINT OF CARE Routine 12/01/2018 2:53 PM CDT GLUCOSE - POINT OF CARE Routine 12/01/2018 12:44 PM CDT PREPARE RBC LEUKOREDUCED UNIT Routine 12/01/2018 6:30 AM CDT TYPE + SCREEN PANEL Routine 12/01/2018 5 :53 AM CDT CBC W AUTO DIFFERENTIAL Routine 12/01/2018 5:53 AM CDT GLUCOSE - POINT OF CARE Routine 12/01/2018 5:52 AM CDT GLUCOSE - POINT OF CARE Routine 11/30/2018 6:36 PM CDT GLUCOSE - POINT OF CARE Routine 11/30/2018 2:52 PM CDT GLUCOSE - POINT OF CARE Routine 11/30/2018 9:13 AM CDT GLUCOSE - POINT OF CARE Routine 11/30/2018 6:07 AM CDT NONSTRESS TEST Routine 11/29/2018 10:24 PM CDT NONSTRESS TEST Routine 11/29/2018 10:24 PM CDT NONSTRESS TEST Routine 11/29/2018 10:23 PM CDT GLUCOSE - POINT OF CARE Routine 11/29/2018 8:04 PM CDT GLUCOSE - POINT OF CARE Routine 11/29/2018 2:15 PM CDT GLUCOSE - POINT OF CARE Routine 11/29/2018 12:10 PM CDT GLUCOSE - POINT OF CARE Routine 11/29/2018 5:10 AM CDT NONSTRESS TEST Routine 11/28/2018 9:19 PM CDT GLUCOSE - POINT OF CARE Routine 11/28/2018 7:25 PM CDT PROTEIN CREATININE RATIO URINE RANDOM PNL Routine 11/28/2018 4:48 PM CDT GLUCOSE - POINT OF CARE Routine 11/28/2018 4:42 PM CDT GLUCOSE - POINT OF CARE Routine 11/28/2018 12:41 PM CDT URINE MICROSCOPIC ONLY REFLEX TO CULTURE Routine 11/28/2018 10:25 AM CDT URINALYSIS REFLEX MICROSCOPIC REFLEX CULTURE Routine 11/28/2018 10:25 AM CDT CULTURE URINE Routine 11/28/2018 10:25 AM CDT PREPARE RBC LEUKOREDUCED UNIT Routine 11/28/2018 5:30 AM CDT GLUCOSE - POINT OF CARE Routine 11/28/2018 5:06 AM CDT BLOOD TYPE VERIFICATION Routine 11/28/2018 3:34 AM CDT DIFFERENTIAL MANUAL Routine 11/28/2018 3 :34 AM CDT CBC W AUTO DIFFERENTIAL Routine 11/28/2018 3:34 AM CDT COMPREHENSIVE METABOLIC PANEL Routine 11/28/2018 3:34 AM CDT GLUCOSE - POINT OF CARE Routine 11/27/2018 7:02 PM CDT GLUCOSE - POINT OF CARE Routine 11/27/2018 1:32 PM CDT GLUCOSE - POINT OF CARE Routine 11/27/2018 9:19 AM CDT NONSTRESS TEST Routine 11/27/2018 7:44 AM CDT NONSTRESS TEST Routine 11/27/2018 7:44 AM CDT NONSTRESS TEST Routine 11/27/2018 7:44 AM CDT NONSTRESS TEST Routine 11/27/2018 7:43 AM CDT GLUCOSE - POINT OF CARE Routine 11/27/2018 5:54 AM CDT GLUCOSE - POINT OF CARE Routine 11/26/2018 11:03 PM CDT GLUCOSE - POINT OF CARE Routine 11/26/2018 9:56 PM CDT GLUCOSE - POINT OF CARE Routine 11/26/2018 3:04 PM CDT GLUCOSE - POINT OF CARE Routine 11/26/2018 10:27 AM CDT GLUCOSE - POINT OF CARE Routine 11/26/2018 5:11 AM CDT GLUCOSE - POINT OF CARE Routine 11/25/2018 8:22 PM CDT GLUCOSE - POINT OF CARE Routine 11/25/2018 7:10 PM CDT PREPARE RBC LEUKOREDUCED UNIT Routine 11/25/2018 4:30 PM CDT URINE MICROSCOPIC ONLY REFLEX TO CULTURE Routine 11/25/2018 6:42 AM CDT Vaginal bleeding URINALYSIS REFLEX MICROSCOPIC REFLEX CULTURE STAT 11/25/2018 6:42 AM CDT Vaginal bleeding CULTURE URINE Routine 11/25/2018 6:42 AM CDT Vaginal bleeding TYPE + SCREEN PANEL STAT 11/25/2018 6 :41 AM CDT CBC W AUTO DIFFERENTIAL STAT 11/25/2018 6:41 AM CDT Vaginal bleeding documented in this encounter Results * LAB RESULTS ORDER (12/28/2018 10:22 PM CDT) Narrative 12/28/2018 10:22 PM CDT Ordered by an unspecified provider. Scanned Document LAB - THERAPEUTIC DR MCELROY MONITORING ORDERABLES * EKG 12-LEAD (12/23/2018 10:47 AM CDT) Ventricular Rate 72 BPM [facility] Atrial Rate 72 BPM [facility] P-R Interval 190 ms [facility] QRS Duration ms 78 ms [facility] Q-T Interval ms 374 ms [facility] QTC Calculation (Bezet) 409 ms [facility] Calculated P [place] 37 degrees [facility] Calculated R [place] 3 degrees [facility] Calculated T [place] 27 degrees [facility] Interpretation EKG NORMAL SINUS RHYTHM NORMAL ECG NO PREVIOUS ECGS AVAILABLE Confirmed by Kathryn Power ([id number]) on 12/23/2018 4:38:50 PM [facility] 12/23/2018 10:4 7 AM CDT 12/23/2018 4:38 PM CDT Kelley Rocha MD ECG ORDERABLES [facility] MUSE * ECHOCARDIOGRAM 2D WITH DOPPLER (12/23/2018 8:38 AM CDT) 12/23/2018 8:38 AM CDT Narrative [facility] - 12/23/2018 12:[address] PM [address]T [address] [address] Transthoracic Echocardiogram 2D, M-mode, Doppler, and Color Doppler Patient: CAIT MATHEWS MR number: [id number] Height: 60 in Weight: 208.6 lb BSA: 1.9 m?? Study date: 23-Dec-2018 : 1995 Age: 23 years Gender: Female Race: Rod Buster: ??Ada Steel RDCS Referring Physician: ??Cheryl Sumner [...] MD Signed 23-Dec-2018 12:19:29 Procedure Note 12/26/2018 [place] [address] Transthoracic Echocardiogram 2D, M-mode, Doppler, and Color Doppler Patient: CAIT MATHEWS MR number: [id number] Height: 60 in Weight: 208.6 lb BSA: 1.9 m?? Study date: 23-Dec-2018 : 1995 Age: 23 years Gender: Female Race: Rod Buster: Ada Steel RDCS Referring Physician: Cheryl Sumner [...] 23-Dec-2018 12:19:29 Kelley Rocha MD ECHO ORDERABLES [facility] [address] [place] [address] * XR CHEST 2VW (12/23/2018 8:34 AM [...] MD DIAGNOSTIC IMAGING O RDERABLES * (ABNORMAL) COMPREHENSIVE METABOLIC PANEL (12/23/2018 7:07 AM CDT) Glucose 105 74 - 106 mg/dL 12/23/2018 7:49 AM CDT [facility] Sodium 139 136 - 145 mmol/L 12/23/2018 7:49 AM CDT [facility] Potassium 3.9 3.5 - 5.1 mmol/L 12/23/2018 7:49 AM CDT [facility] Chloride 107 98 - 107 mmol/L 12/23/2018 7:49 AM CDT [facility] CO2 24 23 - 31 mmol/L 12/23/2018 7:49 AM CDT [facility] Calcium 8.7 8.4 - 10.2 mg/dL 12/23/2018 7:49 AM CDT [facility] Anion Gap 8 8 - 16 mmol/L 12/23/2018 7:49 AM CDT [facility] BUN 5(L) 7 - 18.7 mg/dL 12/23/2018 7:49 AM CDT [facility] Creatinine 0.50(L) 0.55 - 1.02 mg/dL 12/23/2018 7:49 AM CDT [facility] Alkaline Phosphatase 113 40 - 150 U/L 12/23/2018 7:49 AM CDT [facility] ALT 12(L) 13 - 61 U/L 12/23/2018 7:49 AM CDT [facility] AST 15 5 - 34 U/L 12/23/2018 7:49 AM CDT [facility] Protein Total 5.2(L) 6.4 - 8.3 gm/dL 12/23/2018 7:49 AM CDT [facility] Albumin 2.6(L) 3.5 - 5.2 gm/dL 12/23/2018 7:49 AM CDT [facility] Bilirubin Total 0.3 0.2 - 1.0 mg/dL 12/23/2018 7:49 AM CDT [facility] eGFR by MDRD >60 >60 mL/min/1.7 3m2 12/23/2018 7:49 AM CDT [facility] eGFR by MDRD >60 >60 mL/min/1.7 3m2 12/23/2018 7:49 AM CDT [facility] Blood BLOOD SPECIMEN / Unknown Lab Venipuncture / Unknown 12/23/2018 7:07 AM CDT 12/23/2018 7:22 AM CDT Kelley Rocha MD LAB - CHEMISTRY [facility] Organization Address City/State/[facility] Co de Phone Number [facility] [address] [place] [address] * (ABNORMAL) CBC W AUTO DIFFERENTIAL (12/23/2018 7:07 AM CDT) WBC 9.7 4.4 - 10.7 x10E9/L 12/23/2018 7:31 AM CDT [facility] WBC Corrected 12/23/2018 7:31 AM CDT [facility] RBC 3.29(L) 3.80 - 5.20 x10E12/L 12/23/2018 7:31 AM CDT [facility] Hemoglobin 9.6(L) 12.0 - 15.6 gm/dL 12/23/2018 7:31 AM CDT [facility] Hematocrit 30.7(L) 35.9 - 45.5 % 12/23/2018 7:31 AM CDT [facility] MCV 93.3 80.7 - 98.3 fl 12/23/2018 7:31 AM CDT [facility] MCH 29.2 26.7 - 34.0 pg 12/23/2018 7:31 AM CDT [facility] MCHC 31.3 30.8 - 35.9 gm/dL 12/23/2018 7:31 AM T [facility] Platelet Count 195 153 - 416 x10E9/L 12/23/2018 7:31 AM CDT [facility] RDW-CV 15.0(H) 12.1 - 14.9 % 12/23/2018 7:31 AM CDT [facility] MPV 11.0 9.4 - 12.9 fl 12/23/2018 7:31 AM [facility] Neutrophils % 76.6(H) 44.0 - 73.0 % 12/23/2018 7:31 AM T [facility] Lymphocytes % 14.9(L) 20.0 - 43.0 % 12/23/2018 7:31 AM T [facility] Monocytes % 7.0 5.0 - 13.0 % 12/23/2018 7:31 AM T [facility] Eosinophils % 0.3 0.0 - 6.0 % 12/23/2018 7:31 AM T [facility] Basophils % 0.2 0.0 - 2.0 % 12/23/2018 7:31 AM T [facility] Immature Granulocytes 1.0 0 - 1 % 12/23/2018 7:31 AM T [facility] Neutrophil Absolute 7.44(H) 2.01 - 7.14 x10E9/L 12/23/2018 7:31 AM CDT [facility] Lymphocytes Absolute 1.45 1.07 - 3.94 x10E9/L 12/23/2018 7:31 AM CDT [facility] Monocytes Absolute 0.68 0.26 - 1.07 x10E9/L 12/23/2018 7:31 AM CDT [facility] Eosinophils Absolute 0.03 0 - 0.47 x10E9/L 12/23/2018 7:31 AM CDT [facility] Basophils Absolute 0.02 0 - 0.08 x10E9/L 12/23/2018 7:31 AM CDT [facility] Immature Granulocytes Absolute 0.10(H) 0.00 - 0.06 x10E9/L 12/23/2018 7:31 AM CDT [facility] nRBC Auto 0 /100 WBC 12/23/2018 7:31 AM CDT [facility] Blood BLOOD SPECIMEN / Unknown Lab Venipuncture / Unknown 12/23/2018 7:07 AM CDT 12/23/2018 7:22 AM CDT Kelley Rocha MD LAB - HEMATOLOGY ORD ERABLES [facility] [address] [place] [address] * (ABNORMAL) CBC W AUTO DIFFERENTIAL (12/22/2018 7:15 PM CDT) WBC 12.2(H) 4.4 - 10.7 x10E9/L 12/22/2018 7:42 PM CDT [facility] WBC Corrected 12/22/2018 7:42 PM CDT [facility] RBC 3.61(L) 3.80 - 5.20 x10E12/L 12/22/2018 7:42 PM CDT [facility] Hemoglobin 10.7(L) 12.0 - 15.6 gm/dL 12/22/2018 7:42 PM CDT [facility] Hematocrit 32.7(L) 35.9 - 45.5 % 12/22/2018 7:42 PM CDT [facility] MCV 90.6 80.7 - 98.3 fl 12/22/2018 7:42 PM CDT [facility] MCH 29.6 26.7 - 34.0 pg 12/22/2018 7:42 PM CDT [facility] MCHC 32.7 30.8 - 35.9 gm/dL 12/22/2018 7:42 PM CDT [facility] Platelet Count 180 153 - 416 x10E9/L 12/22/2018 7:42 PM CDT [facility] RDW-CV 14.9 12.1 - 14.9 % 12/22/2018 7:42 PM CDT [facility] MPV 11.9 9.4 - 12.9 fl 12/22/2018 7:42 PM CDT [facility] Neutrophils % 80.8(H) 44.0 - 73.0 % 12/22/2018 7:42 PM CDT [facility] Lymphocytes % 11.5(L) 20.0 - 43.0 % 12/22/2018 7:42 PM CDT [facility] Monocytes % 5.5 5.0 - 13.0 % 12/22/2018 7:42 PM CDT [facility] Eosinophils % 0.2 0.0 - 6.0 % 12/22/2018 7:42 PM CDT [facility] Basophils % 0.2 0.0 - 2.0 % 12/22/2018 7:42 PM CDT [facility] Immature Granulocytes 1.8(H) 0 - 1 % 12/22/2018 7:42 PM CDT [facility] Neutrophil Absolute 9.81(H) 2.01 - 7.14 x10E9/L 12/22/2018 7:42 PM CDT [facility] Lymphocytes Absolute 1.40 1.07 - 3.94 x10E9/L 12/22/2018 7:42 PM CDT [facility] Monocytes Absolute 0.67 0.26 - 1.07 x10E9/L 12/22/2018 7:42 PM CDT [facility] Eosinophils Absolute 0.02 0 - 0.47 x10E9/L 12/22/2018 7:42 PM CDT [facility] Basophils Absolute 0.03 0 - 0.08 x10E9/L 12/22/2018 7:42 PM CDT [facility] Immature Granulocytes Absolute 0.22(H) 0.00 - 0.06 x10E9/L 12/22/2018 7:42 PM CDT [facility] nRBC Auto 0 /100 WBC 12/22/2018 7:42 PM CDT [facility] Blood BLOOD SPECIMEN / Unknown Lab Venipuncture / Unknown 12/22/2018 7:15 PM CDT 12/22/2018 7:31 PM CDT Bennett Stewart MD LAB - HEMATOLOGY ORD ERABLES [facility] [address], [place] [phone] * XR CHEST 1VW PORTABLE (12/22/2018 8:03 [...] MD DIAGNOSTIC IMAGING O RDERABLES * (ABNORMAL) COMPREHENSIVE METABOLIC PANEL (12/22/2018 7:29 AM CDT) Glucose 112(H) 74 - 106 mg/dL 12/22/2018 8:17 AM CDT [facility] Sodium 136 136 - 145 mmol/L 12/22/2018 8:17 AM CDT [facility] Potassium 4.1 3.5 - 5.1 mmol/L 12/22/2018 8:17 AM CDT [facility] Chloride 104 98 - 107 mmol/L 12/22/2018 8:17 AM CDT [facility] CO2 22(L) 23 - 31 mmol/L 12/22/2018 8:17 AM CDT [facility] Calcium 8.2(L) 8.4 - 10.2 mg/dL 12/22/2018 8:17 AM CDT [facility] Anion Gap 10 8 - 16 mmol/L 12/22/2018 8:17 AM CDT [facility] BUN 4(L) 7 - 18.7 mg/dL 12/22/2018 8:17 AM CDT [facility] Creatinine 0.41(L) 0.55 - 1.02 mg/dL 12/22/2018 8:17 AM CDT [facility] Alkaline Phosphatase 141 40 - 150 U/L 12/22/2018 8:17 AM CDT [facility] ALT 12(L) 13 - 61 U/L 12/22/2018 8:17 AM CDT [facility] AST 19 5 - 34 U/L 12/22/2018 8:17 AM CDT [facility] Protein Total 5.3(L) 6.4 - 8.3 gm/dL 12/22/2018 8:17 AM CDT [facility] Albumin 2.6(L) 3.5 - 5.2 gm/dL 12/22/2018 8:17 AM CDT [facility] Bilirubin Total 0.3 0.2 - 1.0 mg/dL 12/22/2018 8:17 AM CDT [facility] eGFR by MDRD >60 >60 mL/min/1.7 3m2 12/22/2018 8:17 AM CDT [facility] eGFR by MDRD >60 >60 mL/min/1.7 3m2 12/22/2018 8:17 AM CDT [facility] Blood BLOOD SPECIMEN / Unknown Lab Venipuncture / Unknown 12/22/2018 7:29 AM CDT 12/22/2018 7:43 AM CDT Tg Perez MD LAB - CHEMISTRY [facility] Performing Organization Address [facility]/ZIP Co de Phone Number [facility] [address] [place] [phone] * (ABNORMAL) MAGNESIUM BLOOD (12/22/2018 7:29 AM CDT) Magnesium 3.7(H) 1.6 - 2.6 mg/dL 12/22/2018 8:17 AM CDT [facility] Blood BLOOD SPECIMEN / Unknown Lab Venipuncture / Unknown 12/22/2018 7:29 AM CDT 12/22/2018 7:43 AM CDT Tg Perez MD LAB - CHEMISTRY [place] [facility] [address] [place] [address] * (ABNORMAL) CBC W AUTO DIFFERENTIAL (12/22/2018 7:29 AM CDT) [facility] Signature WBC 11.1(H) 4.4 - 10.7 x10E9/L 12/22/2018 7:51 AM CDT [facility] WBC Corrected 12/22/2018 7:51 AM CDT [facility] RBC 3.62(L) 3.80 - 5.20 x10E12/L 12/22/2018 7:51 AM CDT [facility] Hemoglobin 10.7(L) 12.0 - 15.6 gm/dL 12/22/2018 7:51 AM CDT [facility] Hematocrit 32.8(L) 35.9 - 45.5 % 12/22/2018 7:51 AM CDT [facility] MCV 90.6 80.7 - 98.3 fl 12/22/2018 7:51 AM CDT [facility] MCH 29.6 26.7 - 34.0 pg 12/22/2018 7:51 AM CDT [facility] MCHC 32.6 30.8 - 35.9 gm/dL 12/22/2018 7:51 AM CDT [facility] Platelet Count 180 153 - 416 x10E9/L 12/22/2018 7:51 AM CDT [facility] RDW-CV 14.6 12.1 - 14.9 % 12/22/2018 7:51 AM CDT [facility] MPV 11.3 9.4 - 12.9 fl 12/22/2018 7:51 AM CDT [facility] Neutrophils % 83.2(H) 44.0 - 73.0 % 12/22/2018 7:51 AM CDT [facility] Lymphocytes % 10.1(L) 20.0 - 43.0 % 12/22/2018 7:51 AM CDT [facility] Monocytes % 4.7(L) 5.0 - 13.0 % 12/22/2018 7:51 AM CDT [facility] Eosinophils % 0.2 0.0 - 6.0 % 12/22/2018 7:51 AM CDT [facility] Basophils % 0.3 0.0 - 2.0 % 12/22/2018 7:51 AM CDT [facility] Immature Granulocytes 1.5(H) 0 - 1 % 12/22/2018 7:51 AM CDT [facility] Neutrophil Absolute 9.20(H) 2.01 - 7.14 x10E9/L 12/22/2018 7:51 AM CDT [facility] Lymphocytes Absolute 1.12 1.07 - 3.94 x10E9/L 12/22/2018 7:51 AM CDT [facility] Monocytes Absolute 0.52 0.26 - 1.07 x10E9/L 12/22/2018 7:51 AM CDT [facility] Eosinophils Absolute 0.02 0 - 0.47 x10E9/L 12/22/2018 7:51 AM CDT [facility] Basophils Absolute 0.03 0 - 0.08 x10E9/L 12/22/2018 7:51 AM CDT [facility] Immature Granulocytes Absolute 0.17(H) 0.00 - 0.06 x10E9/L 12/22/2018 7:51 AM CDT [facility] nRBC Auto 0 /100 WBC 12/22/2018 7:51 AM CDT [facility] Blood BLOOD SPECIMEN / Unknown Lab Venipuncture / Unknown 12/22/2018 7:29 AM CDT 12/22/2018 7:43 AM CDT Reema Moreno MD LAB - HEMATOLOGY ORDERABLES [facility] [address] [place] [phone] * (ABNORMAL) FIBRINOGEN ACTIVITY (12/22/2018 7:29 AM CDT) Fibrinogen 620(H) 200 - 400 mg/dL 12/22/2018 8:05 AM CDT [facility] Blood BLOOD SPECIMEN / Unknown Lab Venipuncture / Unknown 12/22/2018 7:29 AM CDT 12/22/2018 7:43 AM CDT Edilma Nguyen MD LAB - COAGULATION OR DERABLES Performing Organization Address City/[facility]/ZIP Co de Phone Number [facility] [address] [place] [phone] * PTT (12/22/2018 7:29 AM CDT) PTT 21.3 21.0 - 32.0 sec 12/22/2018 8:01 AM CDT [facility] Blood BLOOD SPECIMEN / Unknown Lab Venipuncture / Unknown 12/22/2018 7:29 AM CDT 12/22/2018 7:43 AM CDT [facility] - 12/22/2018 8:01 AM CDT Heparin Therapeutic Range for PTT: 50.5 - 74.3 seconds. Edilma Nguyen MD LAB - COAGULATION OR DERABLES Performing Organization Address [facility] Co de Phone Number [facility] [address] [place] [address] * (ABNORMAL) PT-INR (12/22/2018 7:29 AM CDT) Pathologist [facility] PT <9.5(L) 9.5 - 11.6 sec 12/22/2018 8:05 AM CDT [facility] INR <0.9(L) 0.9 - 1.1 12/22/2018 8:05 AM CDT [facility] Blood BLOOD SPECIMEN / Unknown Lab Venipuncture / Unknown 12/22/2018 7:29 AM CDT 12/22/2018 7:43 AM CDT [facility] - 12/22/2018 8:05 AM CDT Conventional Warfarin Anticoagulant Therapy: INR Reference Range: ??2.0-3.0 Intensive Warfarin Anticoagulant Therapy: INR Reference Range: ? 2.5-3.5 Edilma Nguyen MD LAB - COAGULATION OR DERABLES [facility] [address], [place] [phone] * (ABNORMAL) GLUCOSE - POINT OF CARE (12/22/2018 6:35 AM CDT) Glucose WB/POC 108(H) 70 - 106 mg/dL 12/22/2018 6:42 AM T [facility] Specimen Type Arterial/C apillary 12/22/2018 6:42 AM CDT [facility] Blood BLOOD SPECIMEN / Unknown 12/22/2018 6:35 AM CDT 12/22/2018 6:42 AM CDT Gely Medina MD LAB - POINT OF CARE ORDERABLES Performing Organization Address [facility] Co de Phone Number [facility] [address] [place] [phone] * (ABNORMAL) FIBRINOGEN ACTIVITY (12/21/2018 9:40 PM CDT) Fibrinogen 503(H) 200 - 400 mg/dL 12/21/2018 9:57 PM CDT [facility] Blood BLOOD SPECIMEN / Unknown Lab Venipuncture / Unknown 12/21/2018 9:40 PM CDT 12/21/2018 9:45 PM CDT Edilma Nguyen MD LAB - COAGULATION OR DERABLES Performing Organization Address [facility] Co de Phone Number [facility] [address] [place], [place] [phone] * PTT (12/21/2018 9:40 PM CDT) PTT 21.0 21.0 - 32.0 sec 12/21/2018 9:57 PM CDT [facility] Blood BLOOD SPECIMEN / Unknown Lab Venipuncture / Unknown 12/21/2018 9:40 PM CDT 12/21/2018 9:45 PM CDT Narrative [facility] - 12/21/2018 9:57 PM CDT Heparin Therapeutic Range for PTT: 50.5 - 74.3 seconds. Edilma Nguyen MD LAB - COAGULATION OR DERABLES Performing Organization Address [facility] Co de Phone Number [facility] [address] [place] [phone] * (ABNORMAL) PT-INR (12/21/2018 9:40 PM CDT) PT <9.5(L) 9.5 - 11.6 sec 12/21/2018 10:09 PM CDT [facility] INR <0.9(L) 0.9 - 1.1 12/21/2018 10:09 PM CDT [facility] Blood BLOOD SPECIMEN / Unknown Lab Venipuncture / Unknown 12/21/2018 9:40 PM CDT 12/21/2018 9:45 PM CDT Narrative [facility] - 12/21/2018 10:09 PM CDT Conventional Warfarin Anticoagulant Therapy: INR Reference Range: ??2.0-3.0 Intensive Warfarin Anticoagulant Therapy: INR Reference Range: ? 2.5-3.5 Edilma Nguyen MD LAB - COAGULATION OR DERABLES Performing Organization Address [facility] de Phone Number [facility] [address], [place] [phone] * PROTEIN CREATININE RATIO URINE RANDOM PNL (12/21/2018 4:19 PM CDT) Protein Urine 126.6 mg/dL 12/21/2018 5:16 PM CDT [facility] Creatinine Urine 83.92 mg/dL 12/21/2018 5:16 PM CDT [facility] Protein/Creatin ine Ratio Urine 1.51 12/21/2018 5:16 PM CDT [facility] Urine URINE SPECIMEN OBTAINED BY CLEAN CATCH PROCEDURE / Unknown Collection / Unknown 12/21/2018 4:19 PM CDT 12/21/2018 4:32 PM CDT Edilma Nguyen MD LAB - URINE CHEMISTR Y ORDERABLES Performing Organization Address [facility] Co de Phone Number [facility] [address], [place] [phone] * (ABNORMAL) COMPREHENSIVE METABOLIC PANEL (12/21/2018 4:18 PM CDT) Glucose 76 74 - 106 mg/dL 12/21/2018 5:15 PM CDT [facility] Sodium 136 136 - 145 mmol/L 12/21/2018 5:15 PM CDT [facility] Potassium 4.0 3.5 - 5.1 mmol/L 12/21/2018 5:15 PM CDT [facility] Chloride 108(H) 98 - 107 mmol/L 12/21/2018 5:15 PM CDT [facility] CO2 19(L) 23 - 31 mmol/L 12/21/2018 5:15 PM CDT [facility] Calcium 8.1(L) 8.4 - 10.2 mg/dL 12/21/2018 5:15 PM CDT [facility] Anion Gap 9 8 - 16 mmol/L 12/21/2018 5:15 PM CDT [facility] BUN 5(L) 7 - 18.7 mg/dL 12/21/2018 5:15 PM CDT [facility] Creatinine 0.37(L) 0.55 - 1.02 mg/dL 12/21/2018 5:15 PM CDT [facility] Alkaline Phosphatase 142 40 - 150 U/L 12/21/2018 5:15 PM CDT [facility] ALT 13 13 - 61 U/L 12/21/2018 5:15 PM CDT [facility] AST 18 5 - 34 U/L 12/21/2018 5:15 PM CDT [facility] Protein Total 4.9(L) 6.4 - 8.3 gm/dL 12/21/2018 5:15 PM CDT [facility] Albumin 2.5(L) 3.5 - 5.2 gm/dL 12/21/2018 5:15 PM CDT [facility] Bilirubin Total 0.3 0.2 - 1.0 mg/dL 12/21/2018 5:15 PM CDT [facility] eGFR by MDRD >60 >60 mL/min/1.7 3m2 12/21/2018 5:15 PM CDT [facility] eGFR by MDRD >60 >60 mL/min/1.7 3m2 12/21/2018 5:15 PM CDT [facility] Blood BLOOD SPECIMEN / Unknown Venipuncture / Unknown 12/21/2018 4:18 PM CDT 12/21/2018 4:32 PM CDT Edilma Nguyen MD LAB - CHEMISTRY [facility] Organization Address City/State/ZIP Co de Phone Number [facility] [address] [place] [address] * (ABNORMAL) CBC W AUTO DIFFERENTIAL (12/21/2018 4:18 PM CDT) WBC 18.1(H) 4.4 - 10.7 x10E9/L 12/21/2018 4:48 PM CDT [facility] WBC Corrected 12/21/2018 4:48 PM CDT [facility] RBC 3.82 3.80 - 5.20 x10E12/L 12/21/2018 4:48 PM CDT [facility] Hemoglobin 11.6(L) 12.0 - 15.6 gm/dL 12/21/2018 4:48 PM CDT [facility] Hematocrit 34.6(L) 35.9 - 45.5 % 12/21/2018 4:48 PM CDT [facility] MCV 90.6 80.7 - 98.3 fl 12/21/2018 4:48 PM CDT [facility] MCH 30.4 26.7 - 34.0 pg 12/21/2018 4:48 PM CDT [facility] MCHC 33.5 30.8 - 35.9 gm/dL 12/21/2018 4:48 PM CDT [facility] Platelet Count 175 153 - 416 x10E9/L 12/21/2018 4:48 PM CDT [facility] RDW-CV 14.5 12.1 - 14.9 % 12/21/2018 4:48 PM CDT [facility] MPV 11.6 9.4 - 12.9 fl 12/21/2018 4:48 PM CDT [facility] Neutrophils % 86.0(H) 44.0 - 73.0 % 12/21/2018 4:48 PM CDT [facility] Lymphocytes % 9.6(L) 20.0 - 43.0 % 12/21/2018 4:48 PM CDT [facility] Monocytes % 2.9(L) 5.0 - 13.0 % 12/21/2018 4:48 PM CDT [facility] Eosinophils % 0.2 0.0 - 6.0 % 12/21/2018 4:48 PM CDT [facility] Basophils % 0.2 0.0 - 2.0 % 12/21/2018 4:48 PM CDT [facility] Immature Granulocytes 1.1(H) 0 - 1 % 12/21/2018 4:48 PM CDT [facility] Neutrophil Absolute 15.52(H) 2.01 - 7.14 x10E9/L 12/21/2018 4:48 PM CDT [facility] Lymphocytes Absolute 1.74 1.07 - 3.94 x10E9/L 12/21/2018 4:48 PM CDT [facility] Monocytes Absolute 0.52 0.26 - 1.07 x10E9/L 12/21/2018 4:48 PM CDT [facility] Eosinophils Absolute 0.03 0 - 0.47 x10E9/L 12/21/2018 4:48 PM CDT [facility] Basophils Absolute 0.04 0 - 0.08 x10E9/L 12/21/2018 4:48 PM CDT [facility] Immature Granulocytes Absolute 0.20(H) 0.00 - 0.06 x10E9/L 12/21/2018 4:48 PM CDT [facility] nRBC Auto 0 /100 WBC 12/21/2018 4:48 PM CDT [facility] Blood BLOOD SPECIMEN / Unknown Venipuncture / Unknown 12/21/2018 4:18 PM CDT 12/21/2018 4:32 PM CDT Edilma Nguyen MD LAB - HEMATOLOGY ORD ERABLES [facility] [address] [place] [address] * GROSS + MICRO EXAM (STL) (12/21/2018 12:39 PM CDT) Case Report Surgical Pathology Report ? Case: [id number] ? Authorizing Provider: ??Gely Medina MD ? Collected: ? 12/21/2018 12:39 PM ? Ordering Location: ? [facility] ? Received: ?12/22/2018 08:04 AM ? Pathologist: ? Indu Rodriguez MD ? Specimen: ?Uterus, uterus and placenta ? 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 12/26/2018 12:51 PM [facility] Gross Description Received in a container of formalin and labeled MathewsCait, and uterus is a disrupted uterus with [...] serially sectioned and display spongy red parenchyma. Program Evaluation Consultant sections are submitted as follows: A1-A3 - endometrium, A4-A5 - one section of placenta and myometrium, A6-A7 - placenta and adherent myometrium, A8 - umbilical cord and membranes, A9 - surface, A10 - maternal surface. MIAN/la 12/26/2018 12:51 PM [facility] Microscopic Description The placental implantation invades myometrium, consistent with placenta increta. The placental villi are of appropriate maturation for gestational age of 36 weeks 0 days. No villitis, thrombi, or infarcts are noted. The membranes are unremarkable and free of inflammation. The umbilical cord has three vessels and is unremarkable. 12/26/2018 12:51 PM [facility] Disclaimer All histochemical and/or immunohistochemical results are interpreted with controls that demonstrate appropriate staining reactions before reporting results. Note on use of immunocytochemistry reagents: This test was developed and its performance characteristic determined by [facility], Department of Laboratory Medicine. It has not been cleared or approved by the U.S. Food and Drug Administration (FDA). The FDA has determined that such clearance or approval is not necessary. The test is used for clinical purpose. It should not be regarded as investigational or for research. This laboratory is certified to perform high complexity testing. 12/26/2018 12:51 PM T [facility] Embedded Images 12/26/2018 12:51 PM [facility] Pathology/Cytolo gy ENTIRE UTERUS / Unknown 12/21/2018 12:39 PM CDT 12/22/2018 8:04 AM CDT Gely Medina MD LAB - PATHOLOGY/CYT OLOGY ORDERABLES Performing Organization Address [facility]/ZIP Co de Phone Number [facility] [address] [place] [address] * TRANSFUSE FRESH FROZEN PLASMA UNIT(S) (12/21/2018 12:29 PM CDT) Edilma Nguyen MD NURSING - BLOOD PROD TRANSFUSION * TRANSFUSE RED BLOOD CELL LEUKOREDUCED UNIT(S) (12/21/2018 12:18 PM CDT) Bennett Stewart MD NURSING - BLOOD PROD TRANSFUSION * PREPARE PLATELET PHERESIS UNIT(S), 1 Units (12/21/2018 11:30 AM CDT) Product Code [id number] [facility] Unit Donor # [id number] S [facility] Donor Type O [facility] Rh Type Unit POS [facility] Unit Status Ret'd [facility] ABO Rh Type Unit OPOS [facility] Donor Unit Expiration Date [facility] Blood Type Barcode 5100 [facility] Blood Bank BLOOD SPECIMEN / Unknown 12/21/2018 11:30 AM CDT Edilma Nguyen MD LAB - BLOOD BANK ORD ERABLES Performing Organization Address [facility]/ZIP Co de Phone Number [facility] [address] [phone] * PREPARE FFP UNIT(S), 4 Units (12/21/2018 11:30 AM CDT) Product Code [id number] [facility] Unit Donor # [id number] S [facility] ABO Donor Type AB [facility] Rh Type Unit POS [facility] BL [facility]OD B[facility] LAB Unit Status Ret'd [facility] BLO OD BANK LAB ABO Rh Type Unit ABPOS [facility] Donor Unit Expiration Date [facility] Blood Type Barcode 8400 [facility] Product Code [id number] [facility] Unit Donor # [id number] S [facility] ABO Donor Type AB [facility] Rh Type Unit POS [facility] Unit Status Ret'd [facility] ABO Rh Type Unit ABPOS [facility] Donor Unit Expiration Date [facility] Blood Type Barcode 8400 [facility] Product Code [id number] [facility] Unit Donor # [id number] S [facility] ABO Donor Type B [facility] Rh Type Unit POS [facility] O[facility] Unit Status Transfd [facility] OD BANK LAB ABO Rh Type Unit BPOS [facility] Donor Unit Expiration Date [facility] Blood Type Barcode 7315 [facility] Blood Bank BLOOD SPECIMEN / Unknown 12/21/2018 11:30 AM CDT Edilma Nguyen MD LAB - BLOOD BANK ORD ERABLES [facility] [address] [phone] * PREPARE (CROSSMATCH) RBC UNIT(S), 4 Units (12/21/2018 11:30 AM CDT) Product Code [id number] [facility] Unit Donor # [id number] S [facility] ABO Donor Type B [facility] Rh Type Unit POS [facility] Unit Status Ret'd [facility] OD BANK LAB ABO Rh Type Unit BPOS [facility] Donor Unit Expiration Date [facility] Blood Type Barcode 7300 [facility] Product Code [id number] [facility] Unit Donor # [id number] S [facility] ABO Donor Type B [facility] Rh Type Unit POS [facility] Unit Status Ret'd [facility] OD BANK LAB ABO Rh Type Unit BPOS [facility] Donor Unit Expiration Date [facility] Blood Type Barcode 7300 [facility] Blood Bank BLOOD SPECIMEN / Unknown 12/21/2018 11:30 AM CDT Edilma Nguyen MD LAB - BLOOD BANK ORD ERABLES [facility] [address] [place] [address] * PREPARE FFP UNIT(S), 4 Units (12/21/2018 11:30 AM CDT) Product Code [id number] [facility] Unit Donor # [id number] S [facility] ABO Donor Type B [facility] Rh Type Unit POS [facility] Unit Status Ret'd [facility] ABO Rh Type Unit BPOS [facility] Donor Unit Expiration Date [id number] [facility] Blood Type Barcode 7300 [facility] Blood Bank BLOOD SPECIMEN / Unknown 12/21/2018 11:30 AM CDT Edilma Nguyen MD LAB - BLOOD BANK ORD ERABLES [facility] [address] [place] [address] * PREPARE (CROSSMATCH) RBC UNIT(S), 4 Units (12/21/2018 11:30 AM CDT) Product Code [id number] [facility] Unit Donor # [id number] S [facility] ABO Donor Type B [facility] Rh Type Unit POS [facility] LAB Unit Status Ret'd [facility] ABO Rh Type Unit BPOS [facility] Donor Unit Expiration Date [id number] [facility] Blood Type Barcode 7300 [facility] Blood Bank BLOOD SPECIMEN / Unknown 12/21/2018 11:30 AM CDT Edilma Nguyen MD LAB - BLOOD BANK ORD ERABLES Performing Organization Address [facility]/ZIP Co de Phone Number [facility] [address] [phone] * PREPARE (CROSSMATCH) RBC UNIT(S), 2 Units (12/21/2018 11:30 AM CDT) Product Code [id number] [facility] Unit Donor # [id number] [facility] BLOOD [facility] LAB ABO Donor Type B [facility] Rh Type Unit POS [facility] LAB Unit Status Ret'd [facility] ABO Rh Type Unit BPOS [facility] Donor Unit Expiration Date [id number] [facility] Blood Type Barcode 7300 [facility] Blood Bank BLOOD SPECIMEN / Unknown 12/21/2018 11:30 AM CDT Edilma Nguyen MD LAB - BLOOD BANK ORD ERABLES Performing Organization Address [facility]/ZIP Co de Phone Number [facility] [address] [place] [address] * (ABNORMAL) COMPREHENSIVE METABOLIC PANEL (12/21/2018 8:39 AM CDT) Glucose 96 74 - 106 mg/dL 12/21/2018 9:21 AM CDT [facility] Sodium 136 136 - 145 mmol/L 12/21/2018 9:21 AM CDT [facility] Potassium 4.0 3.5 - 5.1 mmol/L 12/21/2018 9:21 AM CDT [facility] Chloride 107 98 - 107 mmol/L 12/21/2018 9:21 AM CDT [facility] CO2 20(L) 23 - 31 mmol/L 12/21/2018 9:21 AM CDT [facility] Calcium 8.9 8.4 - 10.2 mg/dL 12/21/2018 9:21 AM CDT [facility] Anion Gap 9 8 - 16 mmol/L 12/21/2018 9:21 AM CDT [facility] BUN 8 7 - 18.7 mg/dL 12/21/2018 9:21 AM CDT [facility] Creatinine 0.44(L) 0.55 - 1.02 mg/dL 12/21/2018 9:21 AM CDT [facility] Alkaline Phosphatase 171(H) 40 - 150 U/L 12/21/2018 9:21 AM CDT [facility] ALT 15 13 - 61 U/L 12/21/2018 9:21 AM CDT [facility] AST 12 5 - 34 U/L 12/21/2018 9:21 AM CDT [facility] Protein Total 5.9(L) 6.4 - 8.3 gm/dL 12/21/2018 9:21 AM CDT [facility] Albumin 3.0(L) 3.5 - 5.2 gm/dL 12/21/2018 9:21 AM CDT [facility] Bilirubin Total 0.2 0.2 - 1.0 mg/dL 12/21/2018 9:21 AM CDT [facility] eGFR by MDRD >60 >60 mL/min/1.7 3m2 12/21/2018 9:21 AM CDT [facility] eGFR by MDRD >60 >60 mL/min/1.7 3m2 12/21/2018 9:21 AM CDT [facility] Blood BLOOD SPECIMEN / Unknown Lab Venipuncture / Unknown 12/21/2018 8:39 AM CDT 12/21/2018 8:45 AM CDT Deepa Chaudhry OFFICE MACHINE INSPECTOR-LEGAL SERVICE SPECIALIST LAB - CENTRAL SUPPLY ASSISTANT RY ORDERABLES Performing Organization Address City/State/[facility] Co de Phone Number [facility] [address] [place] [address] * (ABNORMAL) CBC W AUTO DIFFERENTIAL (12/21/2018 8:39 AM CDT) WBC 10.5 4.4 - 10.7 x10E9/L 12/21/2018 8:53 AM CDT [facility] WBC Corrected 12/21/2018 8:53 AM CDT [facility] RBC 3.71(L) 3.80 - 5.20 x10E12/L 12/21/2018 8:53 AM CDT [facility] Hemoglobin 11.0(L) 12.0 - 15.6 gm/dL 12/21/2018 8:53 AM CDT [facility] Hematocrit 33.5(L) 35.9 - 45.5 % 12/21/2018 8:53 AM CDT [facility] MCV 90.3 80.7 - 98.3 fl 12/21/2018 8:53 AM CDT [facility] MCH 29.6 26.7 - 34.0 pg 12/21/2018 8:53 AM CDT [facility] MCHC 32.8 30.8 - 35.9 gm/dL 12/21/2018 8:53 AM T [facility] Platelet Count 193 153 - 416 x10E9/L 12/21/2018 8:53 AM T [facility] RDW-CV 14.0 12.1 - 14.9 % 12/21/2018 8:53 AM [facility] MPV 11.5 9.4 - 12.9 fl 12/21/2018 8:53 AM [facility] Neutrophils % 69.5 44.0 - 73.0 % 12/21/2018 8:53 AM [facility] Lymphocytes % 20.4 20.0 - 43.0 % 12/21/2018 8:53 AM T [facility] Monocytes % 6.0 5.0 - 13.0 % 12/21/2018 8:53 AM T [facility] Eosinophils % 1.0 0.0 - 6.0 % 12/21/2018 8:53 AM [facility] Basophils % 0.5 0.0 - 2.0 % 12/21/2018 8:53 AM T [facility] Immature Granulocytes 2.6(H) 0 - 1 % 12/21/2018 8:53 AM T [facility] Neutrophil Absolute 7.33(H) 2.01 - 7.14 x10E9/L 12/21/2018 8:53 AM CDT [facility] Lymphocytes Absolute 2.15 1.07 - 3.94 x10E9/L 12/21/2018 8:53 AM T [facility] Monocytes Absolute 0.63 0.26 - 1.07 x10E9/L 12/21/2018 8:53 AM T [facility] Eosinophils Absolute 0.11 0 - 0.47 x10E9/L 12/21/2018 8:53 AM T [facility] Basophils Absolute 0.05 0 - 0.08 x10E9/L 12/21/2018 8:53 AM CDT [facility] Immature Granulocytes Absolute 0.27(H) 0.00 - 0.06 x10E9/L 12/21/2018 8:53 AM CDT [facility] nRBC Auto 0 /100 WBC 12/21/2018 8:53 AM CDT [facility] Blood BLOOD SPECIMEN / Unknown Lab Venipuncture / Unknown 12/21/2018 8:39 AM CDT 12/21/2018 8:45 AM CDT Deepa Vidal Isidoro OFFICE MACHINE INSPECTOR-LEGAL SERVICE SPECIALIST LAB - HEMATOL OGY ORDERABLES Performing Organization Address City/[facility]/ZIP Co de Phone Number [facility] [address] [place], [place] [phone] * GLUCOSE - POINT OF CARE (12/21/2018 6:15 AM CDT) Glucose WB/POC 86 70 - 106 mg/dL 12/21/2018 6:27 AM CDT [facility] Specimen Type Arterial/C apillary 12/21/2018 6:27 AM CDT [facility] Comment:(3) Treated per Prot ocol Blood BLOOD SPECIMEN / Unknown 12/21/2018 6:15 AM CDT 12/21/2018 6:27 AM CDT Gely Medina MD LAB - POINT OF CARE ORDERABLES Performing Organization Address City/[facility]/ZIP Co de Phone Number [facility] [address] [place] [phone] * GLUCOSE - POINT OF CARE (12/20/2018 9:48 PM CDT) Glucose WB/POC 102 70 - 106 mg/dL 12/21/2018 6:54 AM CDT [facility] Specimen Type Arterial/C apillary 12/21/2018 6:54 AM CDT [facility] Comment:(3) Treated per Prot ocol Blood BLOOD SPECIMEN / Unknown 12/20/2018 9:48 PM CDT 12/21/2018 6:54 AM CDT Gely Medina MD LAB - POINT OF CARE ORDERABLES Performing Organization Address City/[facility]/ZIP Co de Phone Number [facility] [address] [place] [address] * (ABNORMAL) GLUCOSE - POINT OF CARE (12/20/2018 7:17 PM CDT) Pathologist [facility] [place] Glucose WB/POC 123(H) 70 - 106 mg/dL 12/20/2018 9:13 PM CDT [facility] Specimen Type Arterial/C apillary 12/20/2018 9:13 PM CDT [facility] Blood BLOOD SPECIMEN / Unknown 12/20/2018 7:17 PM CDT 12/20/2018 9:13 PM CDT Gely Medina MD LAB - POINT OF CARE ORDERABLES Performing Organization Address [facility] Co de Phone Number [facility] [address] [place] [phone] * (ABNORMAL) CBC W AUTO DIFFERENTIAL (12/20/2018 4:43 PM CDT) Pathologist [facility] [place] WBC 10.3 4.4 - 10.7 x10E9/L 12/20/2018 4:55 PM CDT [facility] WBC Corrected 12/20/2018 4:55 PM CDT [facility] RBC 3.87 3.80 - 5.20 x10E12/L 12/20/2018 4:55 PM CDT [facility] Hemoglobin 11.9(L) 12.0 - 15.6 gm/dL 12/20/2018 4:55 PM CDT [facility] Hematocrit 35.0(L) 35.9 - 45.5 % 12/20/2018 4:55 PM CDT [facility] MCV 90.4 80.7 - 98.3 fl 12/20/2018 4:55 PM CDT [facility] MCH 30.7 26.7 - 34.0 pg 12/20/2018 4:55 PM CDT [facility] MCHC 34.0 30.8 - 35.9 gm/dL 12/20/2018 4:55 PM CDT [facility] Platelet Count 210 153 - 416 x10E9/L 12/20/2018 4:55 PM CDT [facility] RDW-CV 14.1 12.1 - 14.9 % 12/20/2018 4:55 PM CDT [facility] MPV 11.7 9.4 - 12.9 fl 12/20/2018 4:55 PM CDT [facility] Neutrophils % 72.9 44.0 - 73.0 % 12/20/2018 4:55 PM CDT [facility] Lymphocytes % 19.2(L) 20.0 - 43.0 % 12/20/2018 4:55 PM CDT [facility] Monocytes % 5.1 5.0 - 13.0 % 12/20/2018 4:55 PM CDT [facility] Eosinophils % 0.6 0.0 - 6.0 % 12/20/2018 4:55 PM CDT [facility] Basophils % 0.2 0.0 - 2.0 % 12/20/2018 4:55 PM CDT [facility] Immature Granulocytes 2.0(H) 0 - 1 % 12/20/2018 4:55 PM CDT [facility] Neutrophil Absolute 7.53(H) 2.01 - 7.14 x10E9/L 12/20/2018 4:55 PM CDT [facility] Lymphocytes Absolute 1.98 1.07 - 3.94 x10E9/L 12/20/2018 4:55 PM CDT [facility] Monocytes Absolute 0.53 0.26 - 1.07 x10E9/L 12/20/2018 4:55 PM CDT [facility] Eosinophils Absolute 0.06 0 - 0.47 x10E9/L 12/20/2018 4:55 PM CDT [facility] Basophils Absolute 0.02 0 - 0.08 x10E9/L 12/20/2018 4:55 PM CDT [facility] Immature Granulocytes Absolute 0.21(H) 0.00 - 0.06 x10E9/L 12/20/2018 4:55 PM CDT [facility] nRBC Auto 0 /100 WBC 12/20/2018 4:55 PM CDT [facility] Blood BLOOD SPECIMEN / Unknown Lab Venipuncture / Unknown 12/20/2018 4:43 PM CDT 12/20/2018 4:52 PM CDT Edilma Nguyen MD LAB - HEMATOLOGY ORD ERABLES Performing Organization Address [facility] Co de Phone Number [facility] [address] [place] [phone] * (ABNORMAL) GLUCOSE - POINT OF CARE (12/20/2018 2:46 PM CDT) Glucose WB/POC 116(H) 70 - 106 mg/dL 12/20/2018 3:01 PM CDT [facility] Specimen Type Arterial/C apillary 12/20/2018 3:01 PM CDT [facility] Blood BLOOD SPECIMEN / Unknown 12/20/2018 2:46 PM CDT 12/20/2018 3:01 PM CDT Gely Medina MD LAB - POINT OF CARE ORDERABLES Performing Organization Address [facility] de Phone Number [facility] [address] [place] [phone] * (ABNORMAL) GLUCOSE - POINT OF CARE (12/20/2018 12:52 PM CDT) Glucose WB/POC 118(H) 70 - 106 mg/dL 12/20/2018 2:42 PM CDT [facility] Specimen Type Arterial/C apillary 12/20/2018 2:42 PM CDT [facility] Blood BLOOD SPECIMEN / Unknown 12/20/2018 12:52 PM CDT 12/20/2018 2:42 PM CDT Gely Medina MD LAB - POINT OF CARE ORDERABLES Performing Organization Address [facility] Co de Phone Number [facility] [address] [place] [address] * GLUCOSE - POINT OF CARE (12/20/2018 11:18 AM CDT) Glucose WB/POC 77 70 - 106 mg/dL 12/20/2018 11:28 AM CDT [facility] Specimen Type Arterial/C apillary 12/20/2018 11:28 AM CDT [facility] Blood BLOOD SPECIMEN / Unknown 12/20/2018 11:18 AM CDT 12/20/2018 11:28 AM CDT Gely Medina MD LAB - POINT OF CARE ORDERABLES [facility] [address] [place] [address] * PREPARE (CROSSMATCH) RBC UNIT(S), 2 Units (12/20/2018 6:45 AM CDT) Product Code [id number] [facility] Unit Donor # [id number] S [facility] ABO Donor Type B [facility] Rh Type Unit POS [facility] Unit Status Ret'd [facility] ABO Rh Type Unit BPOS [facility] Donor Unit Expiration [facility] Blood Type Barcode 7300 [facility] Product Code [id number] [facility] Unit Donor # [id number] S [facility] ABO Donor Type B [facility] Rh Type Unit POS [facility] Unit Status Ret'd [facility] ABO Rh Type Unit BPOS [facility] Donor Unit Expiration [facility] Blood Type Barcode 7300 [facility] Product Code [id number] [facility] Unit Donor # [id number] S [facility] ABO Donor Type B [facility] B[facility] Rh Type Unit POS [facility] Unit Status Transfd [facility] ABO Rh Type Unit BPOS [facility] Donor Unit Expiration Date [facility] Blood Type Barcode 7300 [facility] Product Code [id number] [facility] Unit Donor # [id number] S [facility] ABO Donor Type B [facility] Rh Type Unit POS [facility] Unit Status Ret'd [facility] ABO Rh Type Unit BPOS [facility] Donor Unit Expiration Date [facility] Blood Type Barcode 7300 [facility] Blood Bank BLOOD SPECIMEN / Unknown 12/20/2018 6:45 AM CDT Kelley Rocha MD LAB - BLOOD BANK ORD ERABLES Performing Organization Address City/[facility]/ZIP Co de Phone Number [facility] [address] [place] [phone] [place] [address] * TYPE + SCREEN PANEL (12/20/2018 5:42 AM CDT) ABO B 12/20/2018 6:24 AM CDT [facility] Rh Type Positive 12/20/2018 6:24 AM CDT [facility] Comment:History checked. Antibody Screen Negative 12/20/2018 6:24 AM CDT [facility] Blood Bank BLOOD SPECIMEN / Unknown Lab Venipuncture / Unknown 12/20/2018 5:42 AM CDT 12/20/2018 5:49 AM CDT Kelley Rocha MD LAB - BLOOD BANK ORD ERABLES Performing Organization Address [facility] Co de Phone Number [facility] [address] [place] [address] * GLUCOSE - POINT OF CARE (12/20/2018 3:57 AM CDT) Glucose WB/POC 91 70 - 106 mg/dL 12/20/2018 4:10 AM CDT [facility] Specimen Type Arterial/C apillary 12/20/2018 4:10 AM CDT [facility] Comment:(3) Treated per Prot ocol Blood BLOOD SPECIMEN / Unknown 12/20/2018 3:57 AM CDT 12/20/2018 4:10 AM CDT Gely Medina MD LAB - POINT OF CARE ORDERABLES Performing Organization Address [facility]/ZIP Co de Phone Number [facility] [address] [place] [phone] * (ABNORMAL) GLUCOSE - POINT OF CARE (12/19/2018 9:12 PM CDT) Glucose WB/POC 109(H) 70 - 106 mg/dL 12/19/2018 9:23 PM CDT [facility] Specimen Type Arterial/C apillary 12/19/2018 9:23 PM CDT [facility] Comment:(3) Treated per Prot ocol Blood BLOOD SPECIMEN / Unknown 12/19/2018 9:12 PM CDT 12/19/2018 9:23 PM CDT Gely Medina MD LAB - POINT OF CARE ORDERABLES Performing Organization Address [facility] Co de Phone Number [facility] [address] [place] [phone] * (ABNORMAL) GLUCOSE - POINT OF CARE (12/19/2018 4:21 PM CDT) Glucose WB/POC 126(H) 70 - 106 mg/dL 12/19/2018 4:28 PM CDT [facility] Specimen Type Arterial/C apillary 12/19/2018 4:28 PM CDT [facility] Blood BLOOD SPECIMEN / Unknown 12/19/2018 4:21 PM CDT 12/19/2018 4:28 PM CDT Gely Medina MD LAB - POINT OF CARE ORDERABLES Performing Organization Address [facility] Co de Phone Number [facility] [address] [place] [address] * (ABNORMAL) GLUCOSE - POINT OF CARE (12/19/2018 12:18 PM CDT) Glucose WB/POC 114(H) 70 - 106 mg/dL 12/19/2018 12:25 PM CDT [facility] Specimen Type Venous 12/19/2018 12:25 PM CDT [facility] Blood BLOOD SPECIMEN / Unknown 12/19/2018 12:18 PM CDT 12/19/2018 12:25 PM CDT Gely Medina MD LAB - POINT OF CARE ORDERABLES [facility] [address] [place] [phone] * (ABNORMAL) GLUCOSE - POINT OF CARE (12/19/2018 10:48 AM CDT) Glucose WB/POC 68(L) 70 - 106 mg/dL 12/19/2018 11:00 AM CDT [facility] Specimen Type Venous 12/19/2018 11:00 AM CDT [facility] Blood BLOOD SPECIMEN / Unknown 12/19/2018 10:48 AM CDT 12/19/2018 11:00 AM CDT Gely Medina MD LAB - POINT OF CARE ORDERABLES Performing Organization Address [facility] Co de Phone Number [facility] [address] [place] [phone] * GLUCOSE - POINT OF CARE (12/19/2018 6:39 AM CDT) Glucose WB/POC 87 70 - 106 mg/dL 12/19/2018 9:23 PM CDT [facility] Specimen Type Arterial/C apillary 12/19/2018 9:23 PM CDT [facility] Blood BLOOD SPECIMEN / Unknown 12/19/2018 6:39 AM CDT 12/19/2018 9:23 PM CDT Gely Medina MD LAB - POINT OF CARE ORDERABLES Performing Organization Address [facility] Co de Phone Number [facility] [address] [place] [phone] * (ABNORMAL) GLUCOSE - POINT OF CARE (12/18/2018 6:15 PM CDT) Glucose WB/POC 145(H) 70 - 106 mg/dL 12/18/2018 8:30 PM CDT [facility] Specimen Type Arterial/C apillary 12/18/2018 8:30 PM CDT [facility] Blood BLOOD SPECIMEN / Unknown 12/18/2018 6:15 PM CDT 12/18/2018 8:30 PM CDT Gely Medina MD LAB - POINT OF CARE ORDERABLES [facility] [address] [place] [address] * NONSTRESS TEST (12/18/2018 4:33 PM CDT) Narrative Deepa Chaudhry, OFFICE MACHINE INSPECTOR-LEGAL SERVICE SPECIALIST - 12/18/2018 4:33 PM CDT Charlene Storm RN ? 12/18/2018 ??4:34 PM Name: ??Cait Mathews Date of : ??1995 Today's Date: ??12/18/2018 ?Start: ??1442 ?Stop: ??1521 ?NST RESULTS (HERNADEZ) OBJECTIVE FINDINGS Temp: 98.5 ??F (36.9 ??C), Pulse: 76, Resp: 18, BP: 138/90 NST Indication(s): Placenta Previa Uterine Irritability: No Contractions: Not present OBJECTIVE FINDINGS Movement: Present Monitoring Mode: External Baseline: 140 BPM Variability: Moderate Decelerations: Variable Accelerations: Yes OTHER INFORMATION Inpatient Interventions: None Charlene Storm, FLEX Lianne Flores MD OB GYNE ORDERABLES * (ABNORMAL) GLUCOSE - POINT OF CARE (12/18/2018 2:41 PM CDT) Glucose WB/POC 119(H) 70 - 106 mg/dL 12/18/2018 3:05 PM CDT [facility] Specimen Type Arterial/C apillary 12/18/2018 3:05 PM CDT [facility] Blood BLOOD SPECIMEN / Unknown 12/18/2018 2:41 PM CDT 12/18/2018 3:05 PM CDT Gely Medina MD LAB - POINT OF CARE ORDERABLES [facility] [address], [place] [id number] * (ABNORMAL) GLUCOSE - POINT OF CARE (12/18/2018 8:42 AM CDT) Glucose WB/POC 121(H) 70 - 106 mg/dL 12/18/2018 8:49 AM CDT [facility] Specimen Type Arterial/C apillary 12/18/2018 8:49 AM CDT [facility] Blood BLOOD SPECIMEN / Unknown 12/18/2018 8:42 AM CDT 12/18/2018 8:49 AM CDT Gely Medina MD LAB - POINT OF CARE ORDERABLES [facility] [address] [place] [address] * GLUCOSE - POINT OF CARE (12/18/2018 5:48 AM CDT) Glucose WB/POC 82 70 - 106 mg/dL 12/18/2018 5:58 AM CDT [facility] Specimen Type Arterial/C apillary 12/18/2018 5:58 AM CDT [facility] Comment:(3) Treated per Prot ocol Blood BLOOD SPECIMEN / Unknown 12/18/2018 5:48 AM CDT 12/18/2018 5:58 AM CDT Gely Medina MD LAB - POINT OF CARE ORDERABLES [facility] [address] [place] [address] * (ABNORMAL) GLUCOSE - POINT OF CARE (12/17/2018 8:42 PM CDT) Glucose WB/POC 121(H) 70 - 106 mg/dL 12/17/2018 8:56 PM CDT [facility] Specimen Type Arterial/C apillary 12/17/2018 8:56 PM CDT [facility] Blood BLOOD SPECIMEN / Unknown 12/17/2018 8:42 PM CDT 12/17/2018 8:56 PM CDT Gely Medina MD LAB - POINT OF CARE ORDERABLES Performing Organization Address [facility] Co de Phone Number [facility] [address] [place] [address] * (ABNORMAL) GLUCOSE - POINT OF CARE (12/17/2018 3:21 PM CDT) Glucose WB/POC 110(H) 70 - 106 mg/dL 12/17/2018 3:30 PM CDT [facility] Specimen Type Venous 12/17/2018 3:30 PM CDT [facility] Blood BLOOD SPECIMEN / Unknown 12/17/2018 3:21 PM CDT 12/17/2018 3:29 PM CDT Gely Medina MD LAB - POINT OF CARE ORDERABLES Performing Organization Address [facility] Co de Phone Number [facility] [address] [place] [address] * NONSTRESS TEST (12/17/2018 1:18 PM CDT) Narrative Gely Medina MD - 12/17/2018 1:18 PM CDT Essence Faria MD ? 12/17/2018 10:55 PM Name: ??Cait Mathews Date of : ??1995 Today's Date: ??12/17/2018 Start: 1109 End: 1142 ?NST RESULTS (HERNADEZ) OBJECTIVE FINDINGS Temp: 98.2 ??F (36.8 ??C), Pulse: 69, Resp: 18, BP: 148/90 NST Indication(s): Placenta Previa Uterine Irritability: Yes Contractions: Irregular Frequency: x1 Duration (sec) Range: 140 Perceived Intensity: Mild OBJECTIVE FINDINGS Movement: Present Monitoring Mode: External Baseline: 145 BPM Variability: Moderate Decelerations: Variable Accelerations: Yes OTHER INFORMATION Inpatient Interventions: None Mary Lion RN Non-Stress Test (NST) Cait Bárbara Reid [id number] 12/17/2018 10:54 PM Indications: Patient Active Problem [...] Flores MD OB GYNE ORDERABLES * (ABNORMAL) GLUCOSE - POINT OF CARE (12/17/2018 8:39 AM CDT) Glucose WB/POC 107(H) 70 - 106 mg/dL 12/17/2018 8:53 AM CDT [facility] Specimen Type Venous 12/17/2018 8:53 AM CDT [facility] Blood BLOOD SPECIMEN / Unknown 12/17/2018 8:39 AM CDT 12/17/2018 8:53 AM CDT Gely Medina MD LAB - POINT OF CARE ORDERABLES Performing Organization Address [facility] de Phone Number [facility] [address] [place] [address] * (ABNORMAL) GLUCOSE - POINT OF CARE (12/17/2018 7:12 AM CDT) Glucose WB/POC 67(L) 70 - 106 mg/dL 12/17/2018 7:32 AM CDT [facility] Specimen Type Venous 12/17/2018 7:32 AM CDT [facility] Blood BLOOD SPECIMEN / Unknown 12/17/2018 7:12 AM CDT 12/17/2018 7:32 AM CDT Gely Medina MD LAB - POINT OF CARE ORDERABLES [facility] [address] [place] [address] * GLUCOSE - POINT OF CARE (12/17/2018 5:59 AM CDT) Glucose WB/POC 73 70 - 106 mg/dL 12/17/2018 6:16 AM CDT [facility] Specimen Type Arterial/C apillary 12/17/2018 6:16 AM CDT [facility] Blood BLOOD SPECIMEN / Unknown 12/17/2018 5:59 AM CDT 12/17/2018 6:16 AM CDT Gely Medina MD LAB - POINT OF CARE ORDERABLES Performing Organization Address [facility] Co de Phone Number [facility] [address] [place] [address] * TYPE + SCREEN PANEL (12/17/2018 5:40 AM CDT) ABO B 12/17/2018 6:30 AM CDT [facility] Rh Type Positive 12/17/2018 6:30 AM CDT [facility] Comment:History checked. Antibody Screen Negative 12/17/2018 6:30 AM CDT [facility] Blood Bank BLOOD SPECIMEN / Unknown Lab Venipuncture / Unknown 12/17/2018 5:40 AM CDT 12/17/2018 5:57 AM CDT Cheryl Tello MD LAB - BLOOD BANK ORD ERABLES Performing Organization Address City/[facility]/ZIP Co de Phone Number [facility] [address] [place] [phone] [place] [address] * PREPARE (CROSSMATCH) RBC UNIT(S), 2 Units (12/17/2018 12:30 AM CDT) Product Code [id number] [facility] Unit Donor # [id number] [facility] ABO Donor Type B [facility] Rh Type Unit POS [facility] Unit Status Ret'd [facility] ABO Rh Type Unit BPOS [facility] Donor Unit Expiration Date [facility] Blood Type Barcode 7300 [facility] Product Code [id number] [facility] Unit Donor # [id number] S [facility] ABO Donor Type B [facility] Rh Type Unit POS [facility] LAB Unit Status Ret'd [facility] ABO Rh Type Unit BPOS [facility] Donor Unit Expiration Date [facility] Blood Type Barcode 7300 [facility] Product Code [id number] [facility] Unit Donor # [id number] [facility] ABO Donor Type B [facility] Rh Type Unit POS [facility] Unit Status Ret'd [facility] OD [facility]ANK LAB ABO Rh Type Unit BPOS [facility] Donor Unit Expiration Date [facility] Blood Type Barcode 7300 [facility] Product Code [id number] [facility] Unit Donor # [id number] S [facility] ABO Donor Type B [facility] Rh Type Unit POS [facility] Unit Status Ret'd [facility]ANK LAB ABO Rh Type Unit BPOS [facility] Donor Unit Expiration Date [facility] Blood Type Barcode 7300 [facility] Blood Bank BLOOD SPECIMEN / Unknown 12/17/2018 12:30 AM CDT Karine Terry MD LAB - BLOOD BANK ORD ERABLES [facility] [address] [phone] * (ABNORMAL) GLUCOSE - POINT OF CARE (12/16/2018 8:03 PM CDT) [facility] Signature Glucose WB/POC 125(H) 70 - 106 mg/dL 12/16/2018 8:27 PM CDT [facility] Specimen Type Arterial/C apillary 12/16/2018 8:27 PM CDT [facility] Blood BLOOD SPECIMEN / Unknown 12/16/2018 8:03 PM CDT 12/16/2018 8:27 PM CDT Gely Medina MD LAB - POINT OF CARE ORDERABLES [facility] [address] [place] [address] * NONSTRESS TEST (12/16/2018 7:03 PM CDT) Narrative Gely Medina MD - 12/16/2018 7:03 PM CDT Sara Duran MD ? 12/17/2018 ??7:52 AM Name: ??Cait Mathews Date of : ??1995 Today's Date: ??12/16/2018 Start: ?? 1240 End: ?1314 ?NST RESULTS (HERNADEZ) OBJECTIVE FINDINGS Temp: 97.9 ??F (36.6 ??C), Pulse: 84, Resp: 18, BP: 141/84 OBJECTIVE FINDINGS OTHER INFORMATION Lynda Pat RN Non-Stress Test (NST) Cait Mathews [id number] 12/17/2018 7:52 AM Indications: Complete previa Interpretation: Fetus A: Baseline: ??145 beats/minute Reactive Variability: Moderate Contractions: ??None Decelerations: ??None Recs: Reassuring, continue monitoring as indicated Sara Duran MD Lianne Flores MD OB GYNE ORDERABLES * (ABNORMAL) GLUCOSE - POINT OF CARE (12/16/2018 2:59 PM CDT) Glucose WB/POC 124(H) 70 - 106 mg/dL 12/16/2018 3:06 PM CDT [facility] Specimen Type Arterial/C apillary 12/16/2018 3:06 PM CDT [facility] Blood BLOOD SPECIMEN / Unknown 12/16/2018 2:59 PM CDT 12/16/2018 3:06 PM CDT Gely Medina MD LAB - POINT OF CARE ORDERABLES Performing Organization Address [facility] Co de Phone Number [facility] [address] [place], [place] [id number] * NONSTRESS TEST (12/16/2018 2:05 PM CDT) Narrative Deepa Chaudhry APRN-LEGAL SERVICE SPECIALIST - 12/16/2018 2:05 PM CDT Lynda Pat RN ? 12/15/2018 ??6:38 PM Name: ??Cait Mathews Date of : ??1995 Today's Date: ??12/15/2018 Start: ?? 1753 End: ?1830 ?NST RESULTS (HERNADEZ) OBJECTIVE FINDINGS Temp: 98.5 ??F (36.9 ??C), Pulse: 65, Resp: 18, BP: 138/97 NST Indication(s): Gestational diabetes, Placenta Previa Uterine Irritability: Yes Contractions: Irregular Frequency: x2 OBJECTIVE FINDINGS Movement: Present Monitoring Mode: External Baseline: 150 BPM Variability: Moderate Decelerations: None Accelerations: Yes OTHER INFORMATION Comments: pt denies feeling Lynda Pat RN Lianne Flores MD OB GYNE ORDERABLES * GLUCOSE - POINT OF CARE (12/16/2018 8:14 AM CDT) Glucose WB/POC 97 70 - 106 mg/dL 12/16/2018 3:06 PM CDT [facility] Specimen Type Arterial/C apillary 12/16/2018 3:06 PM CDT [facility] Blood BLOOD SPECIMEN / Unknown 12/16/2018 8:14 AM CDT 12/16/2018 3:06 PM CDT Gely Medina MD LAB - POINT OF CARE ORDERABLES Performing Organization Address [facility] Co de Phone Number [facility] [address] [place] [address] * GLUCOSE - POINT OF CARE (12/16/2018 6:03 AM CDT) Glucose WB/POC 74 70 - 106 mg/dL 12/16/2018 8:33 AM CDT [facility] Specimen Type Arterial/C apillary 12/16/2018 8:33 AM CDT [facility] Blood BLOOD SPECIMEN / Unknown 12/16/2018 6:03 AM CDT 12/16/2018 8:33 AM CDT Gely Medina MD LAB - POINT OF CARE ORDERABLES Performing Organization Address City/[facility]/ZIP Co de Phone Number [facility] [address] [place] [address] * (ABNORMAL) GLUCOSE - POINT OF CARE (12/15/2018 8:47 PM CDT) Glucose WB/POC 166(H) 70 - 106 mg/dL 12/15/2018 10:36 PM CDT [facility] Specimen Type Arterial/C apillary 12/15/2018 10:36 PM CDT [facility] Blood BLOOD SPECIMEN / Unknown 12/15/2018 8:47 PM CDT 12/15/2018 10:36 PM CDT Gely Medina MD LAB - POINT OF CARE ORDERABLES Performing Organization Address [facility] Co de Phone Number [facility] [address] [place] [phone] * (ABNORMAL) GLUCOSE - POINT OF CARE (12/15/2018 6:43 PM CDT) Glucose WB/POC 146(H) 70 - 106 mg/dL 12/15/2018 6:53 PM CDT [facility] Specimen Type Arterial/C apillary 12/15/2018 6:53 PM CDT [facility] Blood BLOOD SPECIMEN / Unknown 12/15/2018 6:43 PM CDT 12/15/2018 6:53 PM CDT Gely Medina MD LAB - POINT OF CARE ORDERABLES Performing Organization Address City/[facility] Co de Phone Number [facility] [address] [place] [address] * NONSTRESS TEST (12/15/2018 11:47 AM CDT) Narrative Deepa Chaudhry, OFFICE MACHINE INSPECTOR-LEGAL SERVICE SPECIALIST - 12/15/2018 11:47 AM CDT Vijaya Ashton MD ? 12/15/2018 ??6:00 AM Name: ??Cait Mathews Date of : ??1995 Today's Date: ??12/14/2018 ??3441-9032 ?NST RESULTS (HERNADEZ) OBJECTIVE FINDINGS Temp: 98.2 ??F (36.8 ??C), Pulse: 76, Resp: 18, BP: 130/81 NST Indication(s): Gestational diabetes, Placenta Previa Uterine Irritability: No Contractions: Irregular Frequency: x1 Duration (sec) Range: 120 Perceived Intensity: Mild OBJECTIVE FINDINGS Movement: Present Monitoring Mode: External Baseline: 135 BPM Variability: Moderate Decelerations: None Accelerations: Yes OTHER INFORMATION Rupa Anthony RN R1 Addendum Non-Stress Test (NST) Cait Mathews [id number] 12/15/2018 5:59 AM Indications: Placenta Previa, GDM, cHTN Interpretation: Baseline: ??125 beats/minute reactive Variability: Moderate Contractions: ??none Decelerations: ??none Vijaya Ashton MD Lianne Flores MD OB GYNE ORDERABLES * (ABNORMAL) GLUCOSE - POINT OF CARE (12/15/2018 8:30 AM CDT) Glucose WB/POC 119(H) 70 - 106 mg/dL 12/15/2018 8:56 AM CDT [facility] Specimen Type Arterial/C apillary 12/15/2018 8:56 AM CDT [facility] Blood BLOOD SPECIMEN / Unknown 12/15/2018 8:30 AM CDT 12/15/2018 8:56 AM CDT Gely Medina MD LAB - POINT OF CARE ORDERABLES [facility] [address] [place], [place] [phone] * GLUCOSE - POINT OF CARE (12/15/2018 5:48 AM CDT) Glucose WB/POC 76 70 - 106 mg/dL 12/15/2018 7:29 AM T [facility] Specimen Type Arterial/C apillary 12/15/2018 7:29 AM [facility] Blood BLOOD SPECIMEN / Unknown 12/15/2018 5:48 AM CDT 12/15/2018 7:29 AM CDT Gely Medina MD LAB - POINT OF CARE ORDERABLES [facility] [address] [place] [address] * (ABNORMAL) COMPREHENSIVE METABOLIC PANEL (12/15/2018 5:06 AM CDT) Glucose 85 74 - 106 mg/dL 12/15/2018 6:04 AM [facility] Sodium 138 136 - 145 mmol/L 12/15/2018 6:04 AM [facility] Potassium 4.1 3.5 - 5.1 mmol/L 12/15/2018 6:04 AM [facility] Chloride 105 98 - 107 mmol/L 12/15/2018 6:04 AM [facility] CO2 23 23 - 31 mmol/L 12/15/2018 6:04 AM [facility] Calcium 9.7 8.4 - 10.2 mg/dL 12/15/2018 6:04 AM [facility] Anion Gap 10 8 - 16 mmol/L 12/15/2018 6:04 AM [facility] BUN 7 7 - 18.7 mg/dL 12/15/2018 6:04 AM [facility] Creatinine 0.50(L) 0.55 - 1.02 mg/dL 12/15/2018 6:04 AM [facility] Alkaline Phosphatase 169(H) 40 - 150 U/L 12/15/2018 6:04 AM [facility] ALT 14 13 - 61 U/L 12/15/2018 6:04 AM [facility] AST 12 5 - 34 U/L 12/15/2018 6:04 AM [facility] Protein Total 6.0(L) 6.4 - 8.3 gm/dL 12/15/2018 6:04 AM CDT [facility] Albumin 3.0(L) 3.5 - 5.2 gm/dL 12/15/2018 6:04 AM CDT [facility] Bilirubin Total 0.2 0.2 - 1.0 mg/dL 12/15/2018 6:04 AM CDT [facility] eGFR by MDRD >60 >60 mL/min/1.7 3m2 12/15/2018 6:04 AM CDT [facility] eGFR by MDRD >60 >60 mL/min/1.7 3m2 12/15/2018 6:04 AM CDT [facility] Blood BLOOD SPECIMEN / Unknown Lab Venipuncture / Unknown 12/15/2018 5:06 AM CDT 12/15/2018 5:21 AM CDT Perla Jansen MD LAB - CHEMISTRY SU MCKENZIE [facility] Organization Address City/State/[facility] Co de Phone Number [facility] [address], [place] [phone] * (ABNORMAL) CBC W/O DIFFERENTIAL (12/15/2018 5:06 AM CDT) WBC 9.1 4.4 - 10.7 x10E9/L 12/15/2018 5:31 AM CDT [facility] RBC 3.84 3.80 - 5.20 x10E12/L 12/15/2018 5:31 AM CDT [facility] Hemoglobin 11.0(L) 12.0 - 15.6 gm/dL 12/15/2018 5:31 AM CDT [facility] Hematocrit 35.3(L) 35.9 - 45.5 % 12/15/2018 5:31 AM CDT [facility] MCV 91.9 80.7 - 98.3 fl 12/15/2018 5:31 AM CDT [facility] MCH 28.6 26.7 - 34.0 pg 12/15/2018 5:31 AM CDT [facility] MCHC 31.2 30.8 - 35.9 gm/dL 12/15/2018 5:31 AM CDT [facility] Platelet Count 176 153 - 416 x10E9/L 12/15/2018 5:31 AM CDT [facility] RDW-CV 13.9 12.1 - 14.9 % 12/15/2018 5:31 AM CDT [facility] MPV 11.7 9.4 - 12.9 fl 12/15/2018 5:31 AM CDT [facility] Blood BLOOD SPECIMEN / Unknown Lab Venipuncture / Unknown 12/15/2018 5:06 AM CDT 12/15/2018 5:21 AM CDT Perla Jansen MD LAB - HEMATOLOGY ORD ERABLES Performing Organization Address City/[facility] Co de Phone Number [facility] [address] [place] [address] * (ABNORMAL) GLUCOSE - POINT OF CARE (12/14/2018 9:13 PM CDT) Glucose WB/POC 107(H) 70 - 106 mg/dL 12/15/2018 7:29 AM CDT [facility] Specimen Type Arterial/C apillary 12/15/2018 7:29 AM CDT [facility] Blood BLOOD SPECIMEN / Unknown 12/14/2018 9:13 PM CDT 12/15/2018 7:29 AM CDT Gely Medina MD LAB - POINT OF CARE ORDERABLES Performing Organization Address [facility] Co de Phone Number [facility] [address] [place] [address] * (ABNORMAL) GLUCOSE - POINT OF CARE (12/14/2018 5:48 PM CDT) Glucose WB/POC 112(H) 70 - 106 mg/dL 12/14/2018 5:56 PM CDT [facility] Specimen Type Arterial/C apillary 12/14/2018 5:56 PM CDT [facility] Blood BLOOD SPECIMEN / Unknown 12/14/2018 5:48 PM CDT 12/14/2018 5:56 PM CDT Gely Medina MD LAB - POINT OF CARE ORDERABLES [facility] [address] [place] [address] * NONSTRESS TEST (12/14/2018 12:41 PM CDT) Narrative Gely Medina MD - 12/14/2018 12:41 PM CDT Vijaya Ashton MD ? 12/14/2018 ??6:06 AM Name: ??Cait Mathews Date of : ??1995 Today's Date: ??12/13/2018 efm started ??1000 efm complete ??1117 ?NST RESULTS (HERNADEZ) OBJECTIVE FINDINGS Temp: 98.2 ??F (36.8 ??C), Pulse: 72, Resp: 20, BP: 108/56 NST Indication(s): Gestational diabetes, Placenta Previa Uterine Irritability: Yes Contractions: Not present OBJECTIVE FINDINGS Movement: Present Monitoring Mode: External Baseline: 125 BPM (baseline change up to 140) Variability: Moderate Decelerations: Variable Accelerations: Yes OTHER INFORMATION Inpatient Interventions: Provider Notified Rupa Hope LPN R1 Addendum Non-Stress Test (NST) Cait Mathews [id number] 12/14/2018 6:06 AM Indications: Placenta Previa Interpretation: Baseline: ??140 beats/minute reactive Variability: Moderate Contractions: ??none Decelerations: ??none Vijaya Ashton MD Lianne Flores MD OB GYNE ORDERABLES * (ABNORMAL) GLUCOSE - POINT OF CARE (12/14/2018 12:17 PM CDT) Glucose WB/POC 176(H) 70 - 106 mg/dL 12/14/2018 12:23 PM CDT [facility] Specimen Type Arterial/C apillary 12/14/2018 12:23 PM CDT [facility] Blood BLOOD SPECIMEN / Unknown 12/14/2018 12:17 PM CDT 12/14/2018 12:23 PM CDT Gely Medina MD LAB - POINT OF CARE ORDERABLES [facility] [address] [place] [address] * SONOGRAM - COMPLETE (12/14/2018 9:30 AM CDT) Anatomical Region Laterality Modality Other 12/14/2018 9:30 AM CDT Narrative 12/14/2018 2:09 PM CDT ? [facility] ?PHONE: ??FAX: Pat. Name: ?CAIT MATHEWS Pat. No: ?[id number] Study Date: ?? 12/14/2018 ??9:30am , Age: ? 1995, 23 Pregnancies: ?? 2, Para 1 Height: ? 60 in Weight: ? 180 lb LMP: ?Unknown GA by Base: ?? 35w0d ?? ULISES: 01/18/2019 GA by US: ? 35w0d ?? ULISES: 01/18/2019 GA Selected: ??35w0d (From [place]) ULISES: ?01/18/2019 Referring MD: MD Hunter, [facility] Rod Buster: ??Anupama Cantu RDMS CPT4: ? [id number] BMI: ?35.15 Room: ? 558 Hist/Ind: ? Vaginal bleeding ?Tobacco use ?Delivery at 34 wk (severe pre-eclampsia, malpresentation, IUGR) ?Obesity ?Placenta previa ?Completed anatomy survey MEASUREMENTS & AGE ? GROWTH EVALUATION Measurement ??GA ? Range ? Srce %for GA Ratios ----- ---- ------- BPD ??8.8 cm 35w3d (90a0z-34o1d) Hadl BPD 64% FL/BPD 0.73 (0.71 - 0.87) HC ??32.9 cm 37w2d (83u7g-38p6q) Hadl HC ??74% FL/AC ??0.19 (0.20 - 0.24* AC ??34.2 cm 38w1d (67l1d-27c8y) Hadl AC ??>99 HC/AC ??0.96 (0.93 - 1.12) FL ?? 6.4 cm 33w0d (12i4i-11b3h) Hadl FL ??4% CI ? 0.75 (0.70 - 0.86) HL ?? 5.7 cm 32w6d (34q6z-60o8k) [place] HL ??14% GA for sonogram 35w0d (54s2d-47a2u) ?? Weight Estimate: based on (BPD,HC,AC,FL) [place] [...] ?<Electronic Signature> ??12/14/2018 02:04pm Vijaya Ashton MD [facility] ORDERABLES * GLUCOSE - POINT OF CARE (12/14/2018 5:03 AM CDT) Glucose WB/POC 75 70 - 106 mg/dL 12/14/2018 5:16 AM CDT [facility] Specimen Type Arterial/C apillary 12/14/2018 5:16 AM CDT [facility] Blood BLOOD SPECIMEN / Unknown 12/14/2018 5:03 AM CDT 12/14/2018 5:16 AM CDT Gely Medina MD LAB - POINT OF CARE ORDERABLES [facility] [address] [place] [address] * PREPARE (CROSSMATCH) RBC UNIT(S), 2 Units (12/14/2018 2:15 AM CDT) Product Code [id number] [facility] Unit Donor # [id number] [facility] A[place] Donor Type B [facility] Rh [facility] Unit POS [facility] Unit Status Ret'd [facility] ABO Rh Type Unit BPOS [facility] Donor Unit Expiration Date [facility] Blood Type Barcode 7300 [facility] Product Code [id number] [facility] Unit Donor # [id number] S [facility] [place] A[place] Donor Type B [facility] Rh Type Unit POS [facility] Unit Status Ret'd [facility] BLO OD BANK LAB ABO Rh Type Unit BPOS [facility] Donor Unit Expiration Date [facility] Blood Type Barcode 7300 [facility] Blood Bank BLOOD SPECIMEN / Unknown 12/14/2018 2:15 AM CDT Reema Moreno MD LAB - BLOOD BANK ORDERABLES Performing Organization Address City/State/[facility] Co de Phone Number [facility] [address] [phone] * (ABNORMAL) CBC W AUTO DIFFERENTIAL (12/14/2018 12:11 AM CDT) WBC 8.2 4.4 - 10.7 x10E9/L 12/14/2018 12:21 AM CDT [facility] WBC Corrected x10E9/L 12/14/2018 12:21 AM CDT [facility] RBC 4.01 3.80 - 5.20 x10E12/L 12/14/2018 12:21 AM CDT [facility] Hemoglobin 12.3 12.0 - 15.6 gm/dL 12/14/2018 12:21 AM CDT [facility] Hematocrit 36.9 35.9 - 45.5 % 12/14/2018 12:21 AM CDT [facility] MCV 92.0 80.7 - 98.3 fl 12/14/2018 12:21 AM [facility] MCH 30.7 26.7 - 34.0 pg 12/14/2018 12:21 AM [facility] MCHC 33.3 30.8 - 35.9 gm/dL 12/14/2018 12:21 AM [facility] Platelet Count 194 153 - 416 x10E9/L 12/14/2018 12:21 AM [facility] RDW-CV 14.3 12.1 - 14.9 % 12/14/2018 12:21 AM [facility] MPV 12.2 9.4 - 12.9 fl 12/14/2018 12:21 AM [facility] Neutrophils % 61.1 44.0 - 73.0 % 12/14/2018 12:21 AM [facility] Lymphocytes % 27.0 20.0 - 43.0 % 12/14/2018 12:21 AM [facility] Monocytes % 9.3 5.0 - 13.0 % 12/14/2018 12:21 AM [facility] Eosinophils % 1.0 0.0 - 6.0 % 12/14/2018 12:21 AM [facility] Basophils % 0.4 0.0 - 2.0 % 12/14/2018 12:21 AM [facility] Immature Granulocytes 1.2(H) 0 - 1 % 12/14/2018 12:21 AM [facility] Neutrophil Absolute 5.00 2.01 - 7.14 x10E9/L 12/14/2018 12:21 AM [facility] Lymphocytes Absolute 2.21 1.07 - 3.94 x10E9/L 12/14/2018 12:21 AM [facility] Monocytes Absolute 0.76 0.26 - 1.07 x10E9/L 12/14/2018 12:21 AM [facility] Eosinophils Absolute 0.08 0 - 0.47 x10E9/L 12/14/2018 12:21 AM [facility] Basophils Absolute 0.03 0 - 0.08 x10E9/L 12/14/2018 12:21 AM [facility] Immature Granulocytes Absolute 0.10(H) 0.00 - 0.06 x10E9/L 12/14/2018 12:21 AM CDT [facility] nRBC Auto 0 /100 WBC 12/14/2018 12:21 AM CDT [facility] Blood BLOOD SPECIMEN / Unknown Venipuncture / Unknown 12/14/2018 12:11 AM CDT 12/14/2018 12:15 AM CDT Reema Moreno MD LAB - HEMATOLOGY ORDERABLES Performing Organization Address City/[facility]/ZIP Co de Phone Number [facility] [address] [place] [address] * TYPE + SCREEN PANEL (12/14/2018 12:11 AM CDT) ABO B 12/14/2018 12:54 AM CDT [facility] Rh Type Positive 12/14/2018 12:54 AM CDT [facility] Comment:History checked. Antibody Screen Negative 12/14/2018 12:54 AM CDT [facility] Blood Bank BLOOD SPECIMEN / Unknown Venipuncture / Unknown 12/14/2018 12:11 AM CDT 12/14/2018 12:15 AM CDT Reema Moreno MD LAB - BLOOD BANK ORDERABLES Performing Organization Address [facility] Co de Phone Number [facility] [address] [place] [address] * (ABNORMAL) GLUCOSE - POINT OF CARE (12/13/2018 9:17 PM CDT) Glucose WB/POC 108(H) 70 - 106 mg/dL 12/13/2018 9:41 PM CDT [facility] Specimen Type Arterial/C apillary 12/13/2018 9:41 PM CDT [facility] Blood BLOOD SPECIMEN / Unknown 12/13/2018 9:17 PM CDT 12/13/2018 9:41 PM CDT Gely Medina MD LAB - POINT OF CARE ORDERABLES Performing Organization Address City/[facility]/ZIP Co de Phone Number [facility] [address] [place] [address] * (ABNORMAL) GLUCOSE - POINT OF CARE (12/13/2018 3:22 PM CDT) Glucose WB/POC 136(H) 70 - 106 mg/dL 12/13/2018 3:31 PM CDT [facility] Specimen Type Arterial/C apillary 12/13/2018 3:31 PM CDT [facility] Blood BLOOD SPECIMEN / Unknown 12/13/2018 3:22 PM CDT 12/13/2018 3:31 PM CDT Gely Medina MD LAB - POINT OF CARE ORDERABLES [facility] [address] [place] [address] * NONSTRESS TEST (12/13/2018 2:22 PM CDT) Narrative Gely Medina MD - 12/13/2018 2:22 PM CDT Perla aJnsen MD ? 12/13/2018 ??6:57 AM Name: ??Cait Mathews Date of : ??1995 Today's Date: ??12/12/2018 efm started ??1335 efm completed ??1413 ?NST RESULTS (HERNADEZ) OBJECTIVE FINDINGS Temp: ??(eating), Pulse: 96, Resp: 16, BP: 137/89 NST Indication(s): Placenta Previa Uterine Irritability: Yes Contractions: Not present OBJECTIVE FINDINGS Movement: Present Monitoring Mode: External Baseline: 135 BPM (to 130) Variability: Moderate Decelerations: Variable Accelerations: Yes OTHER INFORMATION Inpatient Interventions: None Rupa Hope LPN NST: baseline ranges from 125-140 bpm, moderate variability, reactive, no decelerations Holcomb: no contractions Perla Jansen MD 12/13/2018 6:56 AM Lianne Flores MD OB GYNE ORDERABLES * (ABNORMAL) GLUCOSE - POINT OF CARE (12/13/2018 9:57 AM CDT) Glucose WB/POC 143(H) 70 - 106 mg/dL 12/13/2018 10:08 AM CDT [facility] Specimen Type Arterial/C apillary 12/13/2018 10:08 AM CDT [facility] Blood BLOOD SPECIMEN / Unknown 12/13/2018 9:57 AM CDT 12/13/2018 10:08 AM CDT Gely Medina MD LAB - POINT OF CARE ORDERABLES Performing Organization Address [facility] de Phone Number [facility] [address] [place] [phone] * GLUCOSE - POINT OF CARE (12/13/2018 6:53 AM CDT) Glucose WB/POC 84 70 - 106 mg/dL 12/13/2018 8:15 AM CDT [facility] Specimen Type Arterial/C apillary 12/13/2018 8:15 AM CDT [facility] Blood BLOOD SPECIMEN / Unknown 12/13/2018 6:53 AM CDT 12/13/2018 8:14 AM CDT Narrative [facility] - 12/13/2018 8:15 AM CDT (3) Treated per Protocol Gely Medina MD LAB - POINT OF CARE ORDERABLES Performing Organization Address [facility] de Phone Number [facility] [address] [place] [phone] * GLUCOSE - POINT OF CARE (12/12/2018 9:07 PM CDT) Glucose WB/POC 96 70 - 106 mg/dL 12/12/2018 9:14 PM CDT [facility] Specimen Type Arterial/C apillary 12/12/2018 9:14 PM CDT [facility] Blood BLOOD SPECIMEN / Unknown 12/12/2018 9:07 PM CDT 12/12/2018 9:14 PM CDT Narrative [facility] - 12/12/2018 9:14 PM CDT (3) Treated per Protocol Gely Medina MD LAB - POINT OF CARE ORDERABLES Performing Organization Address [facility] de Phone Number [facility] [address] [place] [address] * NONSTRESS TEST (12/12/2018 8:39 PM CDT) Narrative Mallory Brower MD - 12/12/2018 8:39 PM CDT Perla Jansen MD ? 12/08/2018 ??6:12 AM ..Name: ??Cait Mathews Date of : ??1995 Today's Date: ??12/07/2018 Start: 1608 Stop: 1720 ?NST RESULTS (HERNADEZ) OBJECTIVE FINDINGS Temp: 98.4 ??F (36.9 ??C), Pulse: 91, Resp: 18, BP: 146/98 NST Indication(s): Chronic hypertension (increasing blood pressures) Uterine Irritability: No Contractions: Not present OBJECTIVE FINDINGS Movement: Present Monitoring Mode: External Baseline: 160 BPM Variability: Moderate Decelerations: None Accelerations: Yes OTHER INFORMATION Marai E Farooq RN NST: baseline 155-160 bpm, moderate variability, reactive, not recurrent variable decelerations, baseline change to 165 vs prolonged acceleration at end of strip Holcomb: no contractions Perla Jansen MD 12/08/2018 6:12 AM Lianne Flores MD OB GYNE ORDERABLES * NONSTRESS TEST (12/12/2018 8:39 PM CDT) Narrative Mallory Brower MD - 12/12/2018 8:39 PM CDT Perla Jansen MD ? 12/08/2018 ??6:11 AM .Name: ??Cait Mathews Date of : ??1995 Today's Date: ??12/07/2018 ?NST RESULTS (HERNADEZ) OBJECTIVE FINDINGS NST Indication(s): Placenta Previa Uterine Irritability: No Contractions: Not present OBJECTIVE FINDINGS Movement: Present Monitoring Mode: External Baseline: 130 BPM Variability: Moderate Decelerations: None Accelerations: Yes Start: 13:26 Stop: 13:48 OTHER INFORMATION Inpatient Interventions: None Maria E Farooq RN NST: baseline 140 bpm, moderate variability, reactive, no obvious decelerations; baseline change at 1336 to 130 bpm Holcomb: no contractions Perla Jansen MD 12/08/2018 6:10 AM Lianne Flores MD OB GYNE ORDERABLES * (ABNORMAL) GLUCOSE - POINT OF CARE (12/12/2018 6:02 PM CDT) Glucose WB/POC 132(H) 70 - 106 mg/dL 12/12/2018 6:11 PM CDT [facility] Specimen Type Arterial/C apillary 12/12/2018 6:11 PM CDT [facility] Blood BLOOD SPECIMEN / Unknown 12/12/2018 6:02 PM CDT 12/12/2018 6:11 PM CDT Gely Medina MD LAB - POINT OF CARE ORDERABLES Performing Organization Address City/[facility] Co de Phone Number [facility] [address] [place] [address] * NONSTRESS TEST (12/12/2018 1:55 PM CDT) Narrative Gely Medina MD - 12/12/2018 1:55 PM CDT Perla Jansen MD ? 12/12/2018 ??5:09 AM Name: ??Cait Mathews Date of : ??1995 Today's Date: ??12/11/2018 Start: 818 End: 935 ?NST RESULTS (HERNADEZ) OBJECTIVE FINDINGS Temp: 98.1 ??F (36.7 ??C), [...] first. Dr Stewart called to room. Marci Mejia RN NST: tachycardia at beginning of strips that returns to baseline 145 -150 bpm possibly represents a prolonged acceleration but exact etiolology unclear, moderate variability, reactive, no decelerations Holcomb: no contractions Perla Jansen MD 12/12/2018 5:08 AM Lianne Flores MD OB GYNE ORDERABLES * NONSTRESS TEST (12/12/2018 1:55 PM CDT) Narrative Gely Medina MD - 12/12/2018 1:55 PM CDT Essence Faria MD ? 12/12/2018 ??8:42 AM Name: ??Cait Mathews Date of : ??1995 Today's Date: ??12/10/2018 Start: 1127 End: 1210 ?NST RESULTS (HERNADEZ) OBJECTIVE FINDINGS Temp: 97.7 ??F (36.5 ??C), Pulse: 84, Resp: 18, BP: 135/81 NST Indication(s): Other (Comment), Pre-eclampsia (vaso previa) Uterine Irritability: Yes Contractions: Irregular Frequency: x2 Duration (sec) Range: 90 Perceived Intensity: Mild OBJECTIVE FINDINGS Movement: Present Monitoring Mode: External Baseline: 150 BPM Variability: Moderate Decelerations: Variable Accelerations: Prolonged, Yes OTHER INFORMATION Marci Mejia RN Non-Stress Test (NST) Cait Mathews [id number] 12/12/2018 8:41 AM Indications: Patient Active Problem [...] Flores MD OB GYNE ORDERABLES * (ABNORMAL) GLUCOSE - POINT OF CARE (12/12/2018 12:56 PM CDT) Glucose WB/POC 138(H) 70 - 106 mg/dL 12/12/2018 1:04 PM CDT [facility] Specimen Type Arterial/C apillary 12/12/2018 1:04 PM CDT [facility] Blood BLOOD SPECIMEN / Unknown 12/12/2018 12:56 PM CDT 12/12/2018 1:04 PM CDT Gely Medina MD LAB - POINT OF CARE ORDERABLES Performing Organization Address [facility]/ZIP Co de Phone Number [facility] [address] [place] [phone] * GLUCOSE - POINT OF CARE (12/12/2018 6:32 AM CDT) Glucose WB/POC 87 70 - 106 mg/dL 12/12/2018 6:41 AM CDT [facility] Specimen Type Arterial/C apillary 12/12/2018 6:41 AM CDT [facility] Blood BLOOD SPECIMEN / Unknown 12/12/2018 6:32 AM CDT 12/12/2018 6:41 AM CDT Narrative [facility] - 12/12/2018 6:41 AM CDT (3) Treated per Protocol Gely Medina MD LAB - POINT OF CARE ORDERABLES Performing Organization Address City/[facility]/ZIP Co de Phone Number [facility] [address] [place] [phone] * (ABNORMAL) GLUCOSE - POINT OF CARE (12/11/2018 9:22 PM CDT) Glucose WB/POC 120(H) 70 - 106 mg/dL 12/12/2018 4:12 AM CDT [facility] Specimen Type Arterial/C apillary 12/12/2018 4:12 AM CDT [facility] Blood BLOOD SPECIMEN / Unknown 12/11/2018 9:22 PM CDT 12/12/2018 4:12 AM CDT Narrative [facility] - 12/12/2018 4:12 AM CDT (3) Treated per Protocol Gely Medina MD LAB - POINT OF CARE ORDERABLES Performing Organization Address City/State/[facility] Co de Phone Number [facility] [address] [place] [address] * NONSTRESS TEST (12/11/2018 6:56 PM CDT) Narrative Mallory Brower MD - 12/11/2018 6:56 PM CDT Marci Mejia RN ? 12/11/2018 ??4:05 PM Name: ??Cait Mathews Date of : ??1995 Today's Date: ??12/11/2018 Start: 1321 End: 1412 ?NST RESULTS (HERNADEZ) OBJECTIVE FINDINGS Temp: 98.2 ??F (36.8 ??C), [...] Drs notified. Inpatient Interventions: Provider Notified Marci Mejia, FLEX Lianne Flores MD OB GYNE ORDERABLES * (ABNORMAL) GLUCOSE - POINT OF CARE (12/11/2018 6:42 PM CDT) Glucose WB/POC 134(H) 70 - 106 mg/dL 12/11/2018 6:49 PM CDT [facility] Specimen Type Arterial/C apillary 12/11/2018 6:49 PM CDT [facility] Blood BLOOD SPECIMEN / Unknown 12/11/2018 6:42 PM CDT 12/11/2018 6:49 PM CDT Gely Medina MD LAB - POINT OF CARE ORDERABLES Performing Organization Address [facility]/ZIP Co de Phone Number [facility] [address] [place] [address] * EKG 12-LEAD (12/11/2018 2:22 PM CDT) Ventricular Rate 101 BPM [facility] Atrial Rate 101 BPM [facility] P-R Interval 176 ms [facility] QRS Duration ms 76 ms [facility] Q-T Interval ms 340 ms [facility] QTC Calculation (Bezet) 440 ms [facility] Calculated P [place] 28 degrees [facility] Calculated R [place] 9 degrees [facility] Calculated T [place] 7 degrees [facility] Interpretation EKG SINUS TACHYCARDIA OTHERWISE NORMAL ECG NO PREVIOUS ECGS AVAILABLE Confirmed by DO Lozano Stephanie ([id number]) on 12/12/2018 7:57:47 PM [facility] 12/11/2018 2:22 PM CDT 12/12/2018 7:57 PM CDT Lynda Sanchez MD ECG ORDERABLES Performing Organization Address [facility]/ZIP Co de Phone Number [facility] * GLUCOSE - POINT OF CARE (12/11/2018 1:30 PM CDT) Glucose WB/POC 91 70 - 106 mg/dL 12/11/2018 2:58 PM CDT [facility] Specimen Type Arterial/C apillary 12/11/2018 2:58 PM CDT [facility] Blood BLOOD SPECIMEN / Unknown 12/11/2018 1:30 PM CDT 12/11/2018 2:58 PM CDT Gely Medina MD LAB - POINT OF CARE ORDERABLES [facility] [address] [place] [address] * (ABNORMAL) COMPREHENSIVE METABOLIC PANEL (12/11/2018 8:48 AM CDT) Glucose 151(H) 74 - 106 mg/dL 12/11/2018 9:37 AM CDT [facility] Sodium 135(L) 136 - 145 mmol/L 12/11/2018 9:37 AM CDT [facility] Potassium 3.8 3.5 - 5.1 mmol/L 12/11/2018 9:37 AM CDT [facility] Chloride 104 98 - 107 mmol/L 12/11/2018 9:37 AM CDT [facility] CO2 18(L) 23 - 31 mmol/L 12/11/2018 9:37 AM CDT [facility] Calcium 9.7 8.4 - 10.2 mg/dL 12/11/2018 9:37 AM CDT [facility] Anion Gap 13 8 - 16 mmol/L 12/11/2018 9:37 AM CDT [facility] BUN 8 7 - 18.7 mg/dL 12/11/2018 9:37 AM CDT [facility] Creatinine 0.39(L) 0.55 - 1.02 mg/dL 12/11/2018 9:37 AM CDT [facility] Alkaline Phosphatase 179(H) 40 - 150 U/L 12/11/2018 9:37 AM CDT [facility] ALT 14 13 - 61 U/L 12/11/2018 9:37 AM CDT [facility] AST 12 5 - 34 U/L 12/11/2018 9:37 AM CDT [facility] Protein Total 6.4 6.4 - 8.3 gm/dL 12/11/2018 9:37 AM CDT [facility] Albumin 3.4(L) 3.5 - 5.2 gm/dL 12/11/2018 9:37 AM CDT [facility] Bilirubin Total 0.3 0.2 - 1.0 mg/dL 12/11/2018 9:37 AM CDT [facility] eGFR by MDRD >60 >60 mL/min/1.7 3m2 12/11/2018 9:37 AM CDT [facility] eGFR by MDRD >60 >60 mL/min/1.7 3m2 12/11/2018 9:37 AM CDT [facility] Blood BLOOD SPECIMEN / Unknown Venipuncture / Unknown 12/11/2018 8:48 AM CDT 12/11/2018 8:55 AM CDT Bennett Stewart MD LAB - CHEMISTRY SU MCKENZIE Performing Organization Address City/[facility]/ZIP Co de Phone Number [facility] [address] [place] [phone] * (ABNORMAL) GLUCOSE - POINT OF CARE (12/11/2018 8:18 AM CDT) Glucose WB/POC 117(H) 70 - 106 mg/dL 12/11/2018 8:56 AM CDT [facility] Specimen Type Arterial/C apillary 12/11/2018 8:56 AM CDT [facility] Blood BLOOD SPECIMEN / Unknown 12/11/2018 8:18 AM CDT 12/11/2018 8:56 AM CDT Gely Medina MD LAB - POINT OF CARE ORDERABLES Performing Organization Address [facility]/ZIP Co de Phone Number [facility] [address] [place] [phone] * GLUCOSE - POINT OF CARE (12/11/2018 6:16 AM CDT) Glucose WB/POC 103 70 - 106 mg/dL 12/11/2018 6:25 AM CDT [facility] Specimen Type Arterial/C apillary 12/11/2018 6:25 AM CDT [facility] Blood BLOOD SPECIMEN / Unknown 12/11/2018 6:16 AM CDT 12/11/2018 6:25 AM CDT Narrative [facility] - 12/11/2018 6:25 AM CDT (3) Treated per Protocol Gley Medina MD LAB - POINT OF CARE ORDERABLES Performing Organization Address [facility]/ZIP Co de Phone Number [facility] [address] [place] [phone] * TYPE + SCREEN PANEL (12/11/2018 4:52 AM CDT) ABO B 12/11/2018 5:44 AM CDT [facility] Rh Type Positive 12/11/2018 5:44 AM CDT [facility] Comment:History checked. Antibody Screen Negative 12/11/2018 5:44 AM CDT [facility] Blood Bank BLOOD SPECIMEN / Unknown Lab Venipuncture / Unknown 12/11/2018 4:52 AM CDT 12/11/2018 5:00 AM CDT Bennett Stewart MD LAB - BLOOD BANK ORD ERABLES [facility] [address] [phone] * (ABNORMAL) CBC W AUTO DIFFERENTIAL (12/11/2018 4:52 AM CDT) Pathologist [facility] [place] WBC 12.6(H) 4.4 - 10.7 x10E9/L 12/11/2018 5:10 AM CDT [facility] WBC Corrected x10E9/L 12/11/2018 5:10 AM CDT [facility] RBC 3.60(L) 3.80 - 5.20 x10E12/L 12/11/2018 5:10 AM CDT [facility] Hemoglobin 11.1(L) 12.0 - 15.6 gm/dL 12/11/2018 5:10 AM T [facility] Hematocrit 33.1(L) 35.9 - 45.5 % 12/11/2018 5:10 AM CDT [facility] MCV 91.9 80.7 - 98.3 fl 12/11/2018 5:10 AM CDT [facility] MCH 30.8 26.7 - 34.0 pg 12/11/2018 5:10 AM CDT [facility] MCHC 33.5 30.8 - 35.9 gm/dL 12/11/2018 5:10 AM CDT [facility] Platelet Count 184 153 - 416 x10E9/L 12/11/2018 5:10 AM T [facility] RDW-CV 14.0 12.1 - 14.9 % 12/11/2018 5:10 AM CDT [facility] MPV 11.5 9.4 - 12.9 fl 12/11/2018 5:10 AM CDT [facility] Neutrophils % 80.3(H) 44.0 - 73.0 % 12/11/2018 5:10 AM CDT [facility] Lymphocytes % 11.6(L) 20.0 - 43.0 % 12/11/2018 5:10 AM CDT [facility] Monocytes % 5.8 5.0 - 13.0 % 12/11/2018 5:10 AM CDT [facility] Eosinophils % 0.6 0.0 - 6.0 % 12/11/2018 5:10 AM CDT [facility] Basophils % 0.2 0.0 - 2.0 % 12/11/2018 5:10 AM CDT [facility] Immature Granulocytes 1.5(H) 0 - 1 % 12/11/2018 5:10 AM CDT [facility] Neutrophil Absolute 10.08(H) 2.01 - 7.14 x10E9/L 12/11/2018 5:10 AM CDT [facility] Lymphocytes Absolute 1.46 1.07 - 3.94 x10E9/L 12/11/2018 5:10 AM CDT [facility] Monocytes Absolute 0.73 0.26 - 1.07 x10E9/L 12/11/2018 5:10 AM CDT [facility] Eosinophils Absolute 0.08 0 - 0.47 x10E9/L 12/11/2018 5:10 AM CDT [facility] Basophils Absolute 0.03 0 - 0.08 x10E9/L 12/11/2018 5:10 AM CDT [facility] Immature Granulocytes Absolute 0.19(H) 0.00 - 0.06 x10E9/L 12/11/2018 5:10 AM CDT [facility] nRBC Auto 0 /100 WBC 12/11/2018 5:10 AM CDT [facility] Blood BLOOD SPECIMEN / Unknown Lab Venipuncture / Unknown 12/11/2018 4:52 AM CDT 12/11/2018 4:59 AM CDT Bennett Stewart MD LAB - HEMATOLOGY ORD ERABLES [facility] [address] [place] [address] * PREPARE (CROSSMATCH) RBC UNIT(S), 2 Units (12/10/2018 11:15 PM CDT) Pathologist [facility] [place] Product Code [id number] [facility] Unit Donor # [id number] S [facility] ABO Donor Type B [facility] Rh Type Unit POS [facility] Unit Status Ret'd HC BLO OD BANK LAB ABO Rh Type Unit BPOS [facility] Donor Unit Expiration Date [facility] Blood Type Barcode 7300 [facility] Product Code [id number] [facility] Unit Donor # [id number] [facility] ABO Donor Type B [facility] Rh Type Unit POS [facility] Unit Status Ret'd [facility] ABO Rh Type Unit BPOS [facility] Donor Unit Expiration Date [facility] Blood Type Barcode 7300 [facility] Blood Bank BLOOD SPECIMEN / Unknown 12/10/2018 11:15 PM CDT Bennett Stewart MD LAB - BLOOD BANK ORD ERABLES [facility] [address] [place] [address] * (ABNORMAL) GLUCOSE - POINT OF CARE (12/10/2018 9:01 PM CDT) [facility] Glucose WB/POC 147(H) 70 - 106 mg/dL 12/10/2018 9:21 PM CDT [facility] Specimen Type Arterial/C apillary 12/10/2018 9:21 PM CDT [facility] Blood BLOOD SPECIMEN / Unknown 12/10/2018 9:01 PM CDT 12/10/2018 9:21 PM CDT Narrative [facility] - 12/10/2018 9:21 PM CDT (3) Treated per Protocol Gely Medina MD LAB - POINT OF CARE ORDERABLES Performing Organization Address [facility] Co de Phone Number [facility] [address] [place] [phone] * (ABNORMAL) GLUCOSE - POINT OF CARE (12/10/2018 6:52 PM CDT) Glucose WB/POC 118(H) 70 - 106 mg/dL 12/10/2018 9:21 PM CDT [facility] Specimen Type Arterial/C apillary 12/10/2018 9:21 PM CDT [facility] Blood BLOOD SPECIMEN / Unknown 12/10/2018 6:52 PM CDT 12/10/2018 9:21 PM CDT Gely Medina MD LAB - POINT OF CARE ORDERABLES Performing Organization Address [facility] Co de Phone Number [facility] [address] [place] [phone] * (ABNORMAL) GLUCOSE - POINT OF CARE (12/10/2018 4:05 PM CDT) Glucose WB/POC 128(H) 70 - 106 mg/dL 12/10/2018 4:13 PM CDT [facility] Specimen Type Arterial/C apillary 12/10/2018 4:13 PM CDT [facility] Blood BLOOD SPECIMEN / Unknown 12/10/2018 4:05 PM CDT 12/10/2018 4:13 PM CDT Gely Medina MD LAB - POINT OF CARE ORDERABLES Performing Organization Address [facility] Co de Phone Number [facility] [address] [place] [phone] * (ABNORMAL) GLUCOSE - POINT OF CARE (12/10/2018 11:24 AM CDT) Glucose WB/POC 117(H) 70 - 106 mg/dL 12/10/2018 11:44 AM CDT [facility] Specimen Type Arterial/C apillary 12/10/2018 11:44 AM CDT [facility] Blood BLOOD SPECIMEN / Unknown 12/10/2018 11:24 AM CDT 12/10/2018 11:44 AM CDT Gely Medina MD LAB - POINT OF CARE ORDERABLES Performing Organization Address [facility] Co de Phone Number [facility] [address] [place] [phone] * GLUCOSE - POINT OF CARE (12/10/2018 5:04 AM CDT) Glucose WB/POC 94 70 - 106 mg/dL 12/10/2018 5:22 AM CDT [facility] Specimen Type Arterial/C apillary 12/10/2018 5:22 AM CDT [facility] Blood BLOOD SPECIMEN / Unknown 12/10/2018 5:04 AM CDT 12/10/2018 5:22 AM CDT Gely Medina MD LAB - POINT OF CARE ORDERABLES Performing Organization Address [facility] de Phone Number [facility] [address] [place] [phone] * (ABNORMAL) GLUCOSE - POINT OF CARE (12/09/2018 8:04 PM CDT) Glucose WB/POC 110(H) 70 - 106 mg/dL 12/09/2018 8:11 PM CDT [facility] Specimen Type Arterial/C apillary 12/09/2018 8:11 PM CDT [facility] Blood BLOOD SPECIMEN / Unknown 12/09/2018 8:04 PM CDT 12/09/2018 8:11 PM CDT Gely Medina MD LAB - POINT OF CARE ORDERABLES Performing Organization Address [facility] de Phone Number [facility] [address] [place] [phone] * GLUCOSE - POINT OF CARE (12/09/2018 2:36 PM CDT) Glucose WB/POC 102 70 - 106 mg/dL 12/09/2018 2:47 PM CDT [facility] Specimen Type Arterial/C apillary 12/09/2018 2:47 PM CDT [facility] [facility] Blood BLOOD SPECIMEN / Unknown 12/09/2018 2:36 PM CDT 12/09/2018 2:47 PM CDT Gely Medina MD LAB - POINT OF CARE ORDERABLES Performing Organization Address [facility] Co de Phone Number [facility] [address] [place] [phone] * (ABNORMAL) GLUCOSE - POINT OF CARE (12/09/2018 11:41 AM CDT) Glucose WB/POC 154(H) 70 - 106 mg/dL 12/09/2018 11:48 AM CDT [facility] Specimen Type Arterial/C apillary 12/09/2018 11:48 AM CDT [facility] Blood BLOOD SPECIMEN / Unknown 12/09/2018 11:41 AM CDT 12/09/2018 11:48 AM CDT Gely Medina MD LAB - POINT OF CARE ORDERABLES Performing Organization Address [facility] Co de Phone Number [facility] [address] [place] [phone] * GLUCOSE - POINT OF CARE (12/09/2018 5:18 AM CDT) Glucose WB/POC 98 70 - 106 mg/dL 12/09/2018 9:46 AM CDT [facility] Specimen Type Arterial/C apillary 12/09/2018 9:46 AM CDT [facility] Blood BLOOD SPECIMEN / Unknown 12/09/2018 5:18 AM CDT 12/09/2018 9:46 AM CDT Gely Medina MD LAB - POINT OF CARE ORDERABLES Performing Organization Address [facility] Co de Phone Number [facility] [address] [place] [phone] * (ABNORMAL) GLUCOSE - POINT OF CARE (12/08/2018 9:31 PM CDT) Glucose WB/POC 115(H) 70 - 106 mg/dL 12/09/2018 10:09 AM CDT [facility] Specimen Type Arterial/C apillary 12/09/2018 10:09 AM CDT [facility] Blood BLOOD SPECIMEN / Unknown 12/08/2018 9:31 PM CDT 12/09/2018 10:09 AM CDT Gely Medina MD LAB - POINT OF CARE ORDERABLES Performing Organization Address City/[facility]/ZIP Co de Phone Number [facility] [address] [place] [address] * (ABNORMAL) GLUCOSE - POINT OF CARE (12/08/2018 8:01 PM CDT) Glucose WB/POC 116(H) 70 - 106 mg/dL 12/08/2018 8:10 PM CDT [facility] Specimen Type Arterial/C apillary 12/08/2018 8:10 PM CDT [facility] Blood BLOOD SPECIMEN / Unknown 12/08/2018 8:01 PM CDT 12/08/2018 8:10 PM CDT Gely Medina MD LAB - POINT OF CARE ORDERABLES Performing Organization Address [facility] Co de Phone Number [facility] [address] [place] [phone] * (ABNORMAL) URINE MICROSCOPIC ONLY REFLEX TO CULTURE (12/08/2018 3:20 PM CDT) Reflex Status Culture not indicated 12/08/2018 3:35 PM CDT [facility] RBC UA 6-10(A) None Seen, 0-2, 3-5 # /hpf 12/08/2018 3:35 PM CDT [facility] WBC UA 0-5 None Seen, 0-5 # /hpf 12/08/2018 3:35 PM CDT [facility] Bacteria UA None Seen None Seen 12/08/2018 3:35 PM CDT [facility] Squamous Epithelial Cells 0-2 None Seen, 0-2, 3-5 /hpf 12/08/2018 3:35 PM CDT [facility] Mucus UA 1+ /LPF 12/08/2018 3:35 PM CDT [facility] Hyaline Casts 0-2 None Seen, 0-2 # /lpf 12/08/2018 3:35 PM CDT [facility] Urine URINE SPECIMEN OBTAINED BY SINGLE CATHETERIZATION OF URINARY BLADDER / Unknown Collection / Unknown 12/08/2018 3:20 PM CDT 12/08/2018 3:25 PM CDT Narrative [facility] - 12/08/2018 3:35 PM CDT Perla Jansen MD LAB - URINALYSIS ORD ERABLES Performing Organization Address [facility]/ZIP Co de Phone Number [facility] [address], [place] [phone] * PROTEIN CREATININE RATIO URINE RANDOM PNL (12/08/2018 3:20 PM CDT) Protein Urine 227.8 mg/dL 12/08/2018 4:05 PM CDT [facility] Creatinine Urine 192.48 mg/dL 12/08/2018 4:05 PM CDT [facility] Protein/Creatin ine Ratio Urine 1.18 12/08/2018 4:05 PM CDT [facility] Urine URINE SPECIMEN OBTAINED BY CLEAN CATCH PROCEDURE / Unknown Collection / Unknown 12/08/2018 3:20 PM CDT 12/08/2018 3:25 PM CDT Perla Jansen MD LAB - URINE CHEMISTR Y ORDERABLES Performing Organization Address [facility] Co de Phone Number [facility] [address], [place] [phone] * (ABNORMAL) URINALYSIS REFLEX MICROSCOPIC REFLEX CULTURE (12/08/2018 3:20 PM CDT) Color UA Yellow Straw, Yellow 12/08/2018 3:35 PM CDT [facility] Clarity UA Slt Cloudy(A) Clear 12/08/2018 3:35 PM CDT [facility] Glucose UA Negative Negative 12/08/2018 3:35 PM CDT [facility] Bilirubin UA Negative Negative 12/08/2018 3:35 PM CDT [facility] Ketone UA Trace(A) Negative 12/08/2018 3:35 PM CDT [facility] Specific [place] UA 1.029 1.005 - 1.030 12/08/2018 3:35 PM CDT [facility] Blood UA Negative Negative 12/08/2018 3:35 PM CDT [facility] pH UA 6.0 5.0 - 8.0 pH 12/08/2018 3:35 PM CDT [facility] Protein UA 2+(A) Negative 12/08/2018 3:35 PM CDT [facility] Urobilinogen UA Negative Negative mg/dL 12/08/2018 3:35 PM CDT [facility] Nitrite UA Negative Negative 12/08/2018 3:35 PM CDT [facility] Leukocyte UA Negative Negative 12/08/2018 3:35 PM CDT [facility] Urine Microscopy Urine microscopy to follow 12/08/2018 3:35 PM T [facility] Reflex Status Culture not indicated 12/08/2018 3:35 PM CDT [facility] Urine URINE SPECIMEN OBTAINED BY SINGLE CATHETERIZATION OF URINARY BLADDER / Unknown Collection / Unknown 12/08/2018 3:20 PM CDT 12/08/2018 3:25 PM CDT Narrative [facility] - 12/08/2018 3:35 PM CDT Ascorbic Acid can cause false negative urine strip tests for blood, glucose, nitrite, and bilirubin. Perla Jansen MD LAB - URINALYSIS ORD ERABLES Performing Organization Address City/State/[facility] Co de Phone Number [facility] [address] [place] [address] * (ABNORMAL) GLUCOSE - POINT OF CARE (12/08/2018 1:16 PM CDT) Glucose WB/POC 144(H) 70 - 106 mg/dL 12/08/2018 1:26 PM CDT [facility] Specimen Type Arterial/C apillary 12/08/2018 1:26 PM CDT [facility] Blood BLOOD SPECIMEN / Unknown 12/08/2018 1:16 PM CDT 12/08/2018 1:26 PM CDT Narrative [facility] - 12/08/2018 1:26 PM CDT (3) Treated per Protocol Gely Medina MD LAB - POINT OF CARE ORDERABLES [facility] [address] [place] [address] * PREPARE (CROSSMATCH) RBC UNIT(S), 2 Units (12/08/2018 7:00 AM CDT) Product Code [id number] [facility] Unit Donor # [id number] [facility] ABO Donor Type B [facility] Rh Type Unit POS [facility] Unit Status Ret'd [facility] ABO Rh Type Unit BPOS [facility] Donor Unit Expiration Date [facility] Blood Type Barcode 7300 [facility] Product Code [id number] [facility] Unit Donor [facility] [id number] S [facility] ABO Donor Type B [facility] Rh Type Unit POS [facility] Unit Status Ret'd [facility] ABO Rh Type Unit BPOS [facility] Donor Unit Expiration Date [facility] Blood Type Barcode 7300 [facility] Product Code [id number] [facility] Unit Donor [facility] [id number] [facility] ABO Donor Type B [facility] Rh Type Unit POS [facility] Unit Status Ret'd [facility] ABO Rh Type Unit BPOS [facility] Donor Unit Expiration Date [id number] [facility] Blood Type Barcode 7300 [facility] Product Code [id number] [facility] Unit Donor # [id number] S [facility] ABO Donor Type B [facility] Rh Type Unit POS [facility] Unit Status Ret'd [facility] ABO Rh Type Unit BPOS [facility] Donor Unit Expiration Date [facility] Blood Type Barcode 7300 [facility] Blood Bank BLOOD SPECIMEN / Unknown 12/08/2018 7:00 AM CDT Kelley Rocha MD LAB - BLOOD BANK ORD ERABLES [facility] [address] [place] [id number] [phone] * (ABNORMAL) CBC W AUTO DIFFERENTIAL (12/08/2018 5:49 AM CDT) WBC 12.1(H) 4.4 - 10.7 x10E9/L 12/08/2018 6:07 AM CDT [facility] WBC Corrected x10E9/L 12/08/2018 6:07 AM CDT [facility] RBC 3.98 3.80 - 5.20 x10E12/L 12/08/2018 6:07 AM CDT [facility] Hemoglobin 11.7(L) 12.0 - 15.6 gm/dL 12/08/2018 6:07 AM CDT [facility] Hematocrit 36.2 35.9 - 45.5 % 12/08/2018 6:07 AM CDT [facility] MCV 91.0 80.7 - 98.3 fl 12/08/2018 6:07 AM CDT [facility] MCH 29.4 26.7 - 34.0 pg 12/08/2018 6:07 AM CDT [facility] MCHC 32.3 30.8 - 35.9 gm/dL 12/08/2018 6:07 AM CDT [facility] Platelet Count 191 153 - 416 x10E9/L 12/08/2018 6:07 AM CDT [facility] RDW-CV 13.9 12.1 - 14.9 % 12/08/2018 6:07 AM CDT [facility] MPV 11.3 9.4 - 12.9 fl 12/08/2018 6:07 AM CDT [facility] Neutrophils % 73.5(H) 44.0 - 73.0 % 12/08/2018 6:07 AM CDT [facility] Lymphocytes % 17.0(L) 20.0 - 43.0 % 12/08/2018 6:07 AM CDT [facility] Monocytes % 6.5 5.0 - 13.0 % 12/08/2018 6:07 AM CDT [facility] Eosinophils % 0.7 0.0 - 6.0 % 12/08/2018 6:07 AM CDT [facility] Basophils % 0.4 0.0 - 2.0 % 12/08/2018 6:07 AM CDT [facility] Immature Granulocytes 1.9(H) 0 - 1 % 12/08/2018 6:07 AM CDT [facility] Neutrophil Absolute 8.92(H) 2.01 - 7.14 x10E9/L 12/08/2018 6:07 AM CDT [facility] Lymphocytes Absolute 2.06 1.07 - 3.94 x10E9/L 12/08/2018 6:07 AM CDT [facility] Monocytes Absolute 0.79 0.26 - 1.07 x10E9/L 12/08/2018 6:07 AM T [facility] Eosinophils Absolute 0.08 0 - 0.47 x10E9/L 12/08/2018 6:07 AM CDT [facility] Basophils Absolute 0.05 0 - 0.08 x10E9/L 12/08/2018 6:07 AM T [facility] Immature Granulocytes Absolute 0.23(H) 0.00 - 0.06 x10E9/L 12/08/2018 6:07 AM CDT [facility] nRBC Auto 0 /100 WBC 12/08/2018 6:07 AM CDT [facility] Blood BLOOD SPECIMEN / Unknown Lab Venipuncture / Unknown 12/08/2018 5:49 AM CDT 12/08/2018 5:58 AM CDT Kelley Rocha MD LAB - HEMATOLOGY ORD ERABLES [facility] [address] [place] [address] * TYPE + SCREEN PANEL (12/08/2018 5:49 AM CDT) ABO B 12/08/2018 6:44 AM T [facility] Rh Type Positive 12/08/2018 6:44 AM T [facility] Comment:History checked. Antibody Screen Negative 12/08/2018 6:44 AM T [facility] Blood Bank BLOOD SPECIMEN / Unknown Lab Venipuncture / Unknown 12/08/2018 5:49 AM CDT 12/08/2018 5:58 AM CDT Kelley Rocha MD LAB - BLOOD BANK ORD ERABLES [facility] [address] [phone] * (ABNORMAL) COMPREHENSIVE METABOLIC PANEL (12/08/2018 5:49 AM CDT) Glucose 94 74 - 106 mg/dL 12/08/2018 6:31 AM CDT [facility] Sodium 136 136 - 145 mmol/L 12/08/2018 6:31 AM [facility] Potassium 4.0 3.5 - 5.1 mmol/L 12/08/2018 6:31 AM [facility] Chloride 104 98 - 107 mmol/L 12/08/2018 6:31 AM [facility] CO2 20(L) 23 - 31 mmol/L 12/08/2018 6:31 AM [facility] Calcium 9.8 8.4 - 10.2 mg/dL 12/08/2018 6:31 AM [facility] Anion Gap 12 8 - 16 mmol/L 12/08/2018 6:31 AM T [facility] BUN 8 7 - 18.7 mg/dL 12/08/2018 6:31 AM T [facility] Creatinine 0.43(L) 0.55 - 1.02 mg/dL 12/08/2018 6:31 AM [facility] Alkaline Phosphatase 159(H) 40 - 150 U/L 12/08/2018 6:31 AM [facility] ALT 11(L) 13 - 61 U/L 12/08/2018 6:31 AM T [facility] AST 11 5 - 34 U/L 12/08/2018 6:31 AM [facility] Protein Total 6.2(L) 6.4 - 8.3 gm/dL 12/08/2018 6:31 AM T [facility] Albumin 3.3(L) 3.5 - 5.2 gm/dL 12/08/2018 6:31 AM T [facility] Bilirubin Total 0.3 0.2 - 1.0 mg/dL 12/08/2018 6:31 AM [facility] eGFR by MDRD >60 >60 mL/min/1.7 3m2 12/08/2018 6:31 AM CDT [facility] eGFR by MDRD >60 >60 mL/min/1.7 3m2 12/08/2018 6:31 AM CDT [facility] Blood BLOOD SPECIMEN / Unknown Lab Venipuncture / Unknown 12/08/2018 5:49 AM CDT 12/08/2018 5:58 AM CDT Sarah Elder DO LAB - CHEMISTRY ORDERABLES Performing Organization Address [facility] Co de Phone Number [facility] [address] [place] [address] * GLUCOSE - POINT OF CARE (12/08/2018 4:28 AM CDT) Glucose WB/POC 78 70 - 106 mg/dL 12/08/2018 4:36 AM CDT [facility] Specimen Type Arterial/C apillary 12/08/2018 4:36 AM CDT [facility] Blood BLOOD SPECIMEN / Unknown 12/08/2018 4:28 AM CDT 12/08/2018 4:36 AM CDT Narrative [facility] - 12/08/2018 4:36 AM CDT (3) Treated per Protocol Gely Medina MD LAB - POINT OF CARE ORDERABLES Performing Organization Address [facility] de Phone Number [facility] [address] [place] [address] * (ABNORMAL) GLUCOSE - POINT OF CARE (12/07/2018 9:00 PM CDT) Glucose WB/POC 121(H) 70 - 106 mg/dL 12/07/2018 9:11 PM CDT [facility] Specimen Type Arterial/C apillary 12/07/2018 9:11 PM CDT [facility] Blood BLOOD SPECIMEN / Unknown 12/07/2018 9:00 PM CDT 12/07/2018 9:10 PM CDT Narrative [facility] - 12/07/2018 9:11 PM CDT (3) Treated per Protocol Gely Medina MD LAB - POINT OF CARE ORDERABLES Performing Organization Address [facility] Co de Phone Number [facility] [address] [place], [place] [phone] * (ABNORMAL) GLUCOSE - POINT OF CARE (12/07/2018 7:25 PM CDT) Glucose WB/POC 134(H) 70 - 106 mg/dL 12/07/2018 7:36 PM CDT [facility] Specimen Type Arterial/C apillary 12/07/2018 7:36 PM CDT [facility] Blood BLOOD SPECIMEN / Unknown 12/07/2018 7:25 PM CDT 12/07/2018 7:36 PM CDT Narrative [facility] - 12/07/2018 7:36 PM CDT (3) Treated per Protocol Gely Medina MD LAB - POINT OF CARE ORDERABLES Performing Organization Address [facility] Co de Phone Number [facility] [address] [place] [phone] * (ABNORMAL) GLUCOSE - POINT OF CARE (12/07/2018 3:29 PM CDT) Glucose WB/POC 137(H) 70 - 106 mg/dL 12/07/2018 3:55 PM CDT [facility] Specimen Type Arterial/C apillary 12/07/2018 3:55 PM CDT [facility] Blood BLOOD SPECIMEN / Unknown 12/07/2018 3:29 PM CDT 12/07/2018 3:55 PM CDT Gely Medina MD LAB - POINT OF CARE ORDERABLES Performing Organization Address [facility] Co de Phone Number [facility] [address] [place] [phone] * SONOGRAM - TRANSVAGINAL (12/07/2018 11:10 AM CDT) Anatomical Region Laterality Modality Other 12/07/2018 11:1 0 AM CDT Narrative 12/09/2018 7:10 PM CDT ? [facility] ?PHONE: ??FAX: Pat. Name: ?ACIT MATHEWS Pat. No: ?[id number] Study Date: ?? 12/07/2018 ??11:10am , Age: ? 1995, 23 Pregnancies: ?? 2, Para 1 Height: ? 60 in Weight: ? 180 lb LMP: ?Unknown GA by Base: ?? 34w0d ?? ULISES: 01/18/2019 GA Selected: ??34w0d (From [facility]) ULISES: ?01/18/2019 Referring MD: Hunter, , [facility] Rod Buster: ??Gabbi Saenz RDMS CPT4: ? 39791,14452 BMI: ?35.15 Hist/Ind: ? Vaginal bleeding ?Tobacco [...] Signature> ??12/09/2018 07:10pm Revised Gabrielle Lui MD [facility] ORDERABLES * (ABNORMAL) GLUCOSE - POINT OF CARE (12/07/2018 9:52 AM CDT) [facility] Glucose WB/POC 141(H) 70 - 106 mg/dL 12/07/2018 10:09 AM CDT [facility] Specimen Type Arterial/C apillary 12/07/2018 10:09 AM CDT [facility] Blood BLOOD SPECIMEN / Unknown 12/07/2018 9:52 AM CDT 12/07/2018 10:09 AM CDT Gely Medina MD LAB - POINT OF CARE ORDERABLES Performing Organization Address [facility] Co de Phone Number [facility] [address] [place] [address] * GLUCOSE - POINT OF CARE (12/07/2018 4:21 AM CDT) Glucose WB/POC 88 70 - 106 mg/dL 12/07/2018 4:34 AM CDT [facility] Specimen Type Arterial/C apillary 12/07/2018 4:34 AM CDT [facility] Blood BLOOD SPECIMEN / Unknown 12/07/2018 4:21 AM CDT 12/07/2018 4:34 AM CDT Narrative [facility] - 12/07/2018 4:34 AM CDT (3) Treated per Protocol Gely Medina MD LAB - POINT OF CARE ORDERABLES Performing Organization Address [facility] de Phone Number [facility] [address] [place] [phone] * NONSTRESS TEST (12/06/2018 10:23 PM CDT) Narrative Mallory Brower MD - 12/06/2018 10:23 PM CDT Lynda Campuzano RN ? 12/06/2018 12:51 PM Name: ??Cait Mathews Date of : ??1995 Today's Date: ??12/06/2018 Start 1135 Stop 1202 ?NST RESULTS (HERNADEZ) OBJECTIVE FINDINGS Temp: 98 ??F (36.7 ??C), ??, Resp: 16, BP: 142/87 NST Indication(s): Placenta Previa Uterine Irritability: Yes Contractions: Not present OBJECTIVE FINDINGS Movement: Present Monitoring Mode: External Baseline: 150 BPM Variability: Moderate Decelerations: Variable Accelerations: Yes OTHER INFORMATION Inpatient Interventions: None Lynda Campuzano RN Lianne Flores MD [facility] ORDERABLES * (ABNORMAL) GLUCOSE - POINT OF CARE (12/06/2018 8:53 PM CDT) Glucose WB/POC 138(H) 70 - 106 mg/dL 12/06/2018 9:04 PM CDT [facility] Specimen Type Arterial/C apillary 12/06/2018 9:04 PM CDT [facility] Blood BLOOD SPECIMEN / Unknown 12/06/2018 8:53 PM CDT 12/06/2018 9:04 PM CDT Narrative [facility] - 12/06/2018 9:04 PM CDT (3) Treated per Protocol Gely Medina MD LAB - POINT OF CARE ORDERABLES [facility] [address] [place] [phone] * (ABNORMAL) GLUCOSE - POINT OF CARE (12/06/2018 6:40 PM CDT) Glucose WB/POC 117(H) 70 - 106 mg/dL 12/06/2018 6:49 PM CDT [facility] Specimen Type Arterial/C apillary 12/06/2018 6:49 PM CDT [facility] Blood BLOOD SPECIMEN / Unknown 12/06/2018 6:40 PM CDT 12/06/2018 6:49 PM CDT Gely Medina MD LAB - POINT OF CARE ORDERABLES [facility] [address] [place] [address] * (ABNORMAL) GLUCOSE - POINT OF CARE (12/06/2018 3:02 PM CDT) Glucose WB/POC 108(H) 70 - 106 mg/dL 12/06/2018 3:11 PM CDT [facility] Specimen Type Arterial/C apillary 12/06/2018 3:11 PM CDT [facility] Blood BLOOD SPECIMEN / Unknown 12/06/2018 3:02 PM CDT 12/06/2018 3:11 PM CDT Gely Medina MD LAB - POINT OF CARE ORDERABLES [facility] [address] [place] [address] * CULTURE URINE (12/06/2018 12:53 PM CDT) Culture Urine <10,000 CFU/mL [facility] AL[facility] 12/07/2018 6:04 PM CDT [facility] Urine URINE SPECIMEN OBTAINED BY CLEAN CATCH PROCEDURE / Unknown Collection / Unknown 12/06/2018 12:53 PM CDT 12/06/2018 1:17 PM CDT Lianne Flores MD LAB - MICROBIOLOGY O RDERABLES Performing Organization Address City/[facility]/ZIP Co de Phone Number [facility] [address] [place] [address], [facility] [phone] * (ABNORMAL) URINE MICROSCOPIC ONLY REFLEX TO CULTURE (12/06/2018 12:53 PM CDT) Reflex Status Culture to follow 12/06/2018 1:41 PM CDT [facility] RBC UA 0-2 None Seen, 0-2, 3-5 # /hpf 12/06/2018 1:41 PM CDT [facility] WBC UA 6-10(A) None Seen, 0-5 # /hpf 12/06/2018 1:41 PM CDT [facility] Bacteria UA 2+(A) None Seen 12/06/2018 1:41 PM CDT [facility] Squamous Epithelial Cells 6-10(A) None Seen, 0-2, 3-5 /hpf 12/06/2018 1:41 PM CDT [facility] Mucus UA 1+ /LPF 12/06/2018 1:41 PM CDT [facility] Hyaline Casts 0-2 None Seen, 0-2 # /lpf 12/06/2018 1:41 PM CDT [facility] Urine URINE SPECIMEN OBTAINED BY CLEAN CATCH PROCEDURE / Unknown Collection / Unknown 12/06/2018 12:53 PM CDT 12/06/2018 1:17 PM CDT Narrative [facility] - 12/06/2018 1:41 PM CDT Lianne Flores MD LAB - URINALYSIS ORD ERABLES Performing Organization Address [facility] Co de Phone Number [facility] [address], [place] [phone] * (ABNORMAL) URINALYSIS REFLEX MICROSCOPIC REFLEX CULTURE (12/06/2018 12:53 PM CDT) Color UA Yellow Straw, Yellow 12/06/2018 1:41 PM CDT [facility] Clarity UA Slt Cloudy(A) Clear 12/06/2018 1:41 PM CDT [facility] Glucose UA Negative Negative 12/06/2018 1:41 PM CDT [facility] Bilirubin UA Negative Negative 12/06/2018 1:41 PM CDT [facility] Ketone UA Trace(A) Negative 12/06/2018 1:41 PM CDT [facility] Specific [place] UA 1.015 1.005 - 1.030 12/06/2018 1:41 PM CDT [facility] Blood UA 2+(A) Negative 12/06/2018 1:41 PM CDT [facility] pH UA 6.0 5.0 - 8.0 pH 12/06/2018 1:41 PM CDT [facility] Protein UA 1+(A) Negative 12/06/2018 1:41 PM CDT [facility] Urobilinogen UA Negative Negative mg/dL 12/06/2018 1:41 PM CDT [facility] Nitrite UA Negative Negative 12/06/2018 1:41 PM CDT [facility] Leukocyte UA 2+(A) Negative 12/06/2018 1:41 PM CDT [facility] Urine Microscopy Urine microscopy to follow 12/06/2018 1:41 PM CDT [facility] Reflex Status Culture to follow 12/06/2018 1:41 PM CDT [facility] Urine URINE SPECIMEN OBTAINED BY CLEAN CATCH PROCEDURE / Unknown Collection / Unknown 12/06/2018 12:53 PM CDT 12/06/2018 1:17 PM CDT Narrative [facility] - 12/06/2018 1:41 PM CDT Ascorbic Acid can cause false negative urine strip tests for blood, glucose, nitrite, and bilirubin. Lianne Flores MD LAB - URINALYSIS ORD ERABLES [facility] [address] [place] [address] * (ABNORMAL) COMPREHENSIVE METABOLIC PANEL (12/06/2018 12:53 PM CDT) Glucose 107(H) 74 - 106 mg/dL 12/06/2018 1:45 PM CDT [facility] Sodium 133(L) 136 - 145 mmol/L 12/06/2018 1:45 PM CDT [facility] Potassium 3.9 3.5 - 5.1 mmol/L 12/06/2018 1:45 PM CDT [facility] Chloride 103 98 - 107 mmol/L 12/06/2018 1:45 PM CDT [facility] CO2 20(L) 23 - 31 mmol/L 12/06/2018 1:45 PM CDT [facility] Calcium 10.1 8.4 - 10.2 mg/dL 12/06/2018 1:45 PM CDT [facility] Anion Gap 10 8 - 16 mmol/L 12/06/2018 1:45 PM CDT [facility] BUN 6(L) 7 - 18.7 mg/dL 12/06/2018 1:45 PM CDT [facility] Creatinine 0.41(L) 0.55 - 1.02 mg/dL 12/06/2018 1:45 PM CDT [facility] Alkaline Phosphatase 172(H) 40 - 150 U/L 12/06/2018 1:45 PM CDT [facility] ALT 12(L) 13 - 61 U/L 12/06/2018 1:45 PM CDT [facility] AST 12 5 - 34 U/L 12/06/2018 1:45 PM CDT [facility] Protein Total 6.4 6.4 - 8.3 gm/dL 12/06/2018 1:45 PM CDT [facility] Albumin 3.3(L) 3.5 - 5.2 gm/dL 12/06/2018 1:45 PM CDT [facility] Bilirubin Total 0.3 0.2 - 1.0 mg/dL 12/06/2018 1:45 PM CDT [facility] eGFR by MDRD >60 >60 mL/min/1.7 3m2 12/06/2018 1:45 PM CDT [facility] eGFR by MDRD >60 >60 mL/min/1.7 3m2 12/06/2018 1:45 PM CDT [facility] Blood BLOOD SPECIMEN / Unknown Venipuncture / Unknown 12/06/2018 12:53 PM CDT 12/06/2018 1:17 PM CDT Lianne Flores MD LAB - CHEMISTRY SU MCKEN[facility] Organization Address City/State/ZIP Co de Phone Number [facility] [address] [place] [address] * (ABNORMAL) CBC W AUTO DIFFERENTIAL (12/06/2018 12:53 PM CDT) WBC 13.3(H) 4.4 - 10.7 x10E9/L 12/06/2018 1:23 PM CDT [facility] WBC Corrected x10E9/L 12/06/2018 1:23 PM CDT [facility] RBC 4.02 3.80 - 5.20 x10E12/L 12/06/2018 1:23 PM CDT [facility] Hemoglobin 12.1 12.0 - 15.6 gm/dL 12/06/2018 1:23 PM CDT [facility] Hematocrit 36.4 35.9 - 45.5 % 12/06/2018 1:23 PM CDT [facility] MCV 90.5 80.7 - 98.3 fl 12/06/2018 1:23 PM CDT [facility] MCH 30.1 26.7 - 34.0 pg 12/06/2018 1:23 PM CDT [facility] MCHC 33.2 30.8 - 35.9 gm/dL 12/06/2018 1:23 PM CDT [facility] Platelet Count 208 153 - 416 x10E9/L 12/06/2018 1:23 PM CDT [facility] RDW-CV 13.9 12.1 - 14.9 % 12/06/2018 1:23 PM CDT [facility] MPV 11.6 9.4 - 12.9 fl 12/06/2018 1:23 PM CDT [facility] Neutrophils % 79.0(H) 44.0 - 73.0 % 12/06/2018 1:23 PM CDT [facility] Lymphocytes % 13.5(L) 20.0 - 43.0 % 12/06/2018 1:23 PM CDT [facility] Monocytes % 5.1 5.0 - 13.0 % 12/06/2018 1:23 PM CDT [facility] Eosinophils % 0.5 0.0 - 6.0 % 12/06/2018 1:23 PM CDT [facility] Basophils % 0.2 0.0 - 2.0 % 12/06/2018 1:23 PM CDT [facility] Immature Granulocytes 1.7(H) 0 - 1 % 12/06/2018 1:23 PM CDT [facility] Neutrophil Absolute 10.50(H) 2.01 - 7.14 x10E9/L 12/06/2018 1:23 PM CDT [facility] Lymphocytes Absolute 1.79 1.07 - 3.94 x10E9/L 12/06/2018 1:23 PM CDT [facility] Monocytes Absolute 0.68 0.26 - 1.07 x10E9/L 12/06/2018 1:23 PM CDT [facility] Eosinophils Absolute 0.07 0 - 0.47 x10E9/L 12/06/2018 1:23 PM CDT [facility] Basophils Absolute 0.03 0 - 0.08 x10E9/L 12/06/2018 1:23 PM CDT [facility] Immature Granulocytes Absolute 0.22(H) 0.00 - 0.06 x10E9/L 12/06/2018 1:23 PM CDT [facility] nRBC Auto 0 /100 WBC 12/06/2018 1:23 PM CDT [facility] Blood BLOOD SPECIMEN / Unknown Venipuncture / Unknown 12/06/2018 12:53 PM CDT 12/06/2018 1:17 PM CDT Lianne Flores MD LAB - HEMATOLOGY ORD ERABLES [facility] [address] [place] [address] * PROTEIN CREATININE RATIO URINE RANDOM PNL (12/06/2018 12:53 PM CDT) Protein Urine 48.2 mg/dL 12/06/2018 1:43 PM CDT [facility] Creatinine Urine 72.44 mg/dL 12/06/2018 1:43 PM CDT [facility] Protein/Creatin ine Ratio Urine 0.67 12/06/2018 1:43 PM CDT [facility] Urine URINE SPECIMEN OBTAINED BY CLEAN CATCH PROCEDURE / Unknown Collection / Unknown 12/06/2018 12:53 PM CDT 12/06/2018 1:17 PM CDT Lianne Flores MD LAB - URINE CHEMISTR Y ORDERABLES Performing Organization Address City/[facility] Co de Phone Number [facility] [address] [place] [phone] * (ABNORMAL) GLUCOSE - POINT OF CARE (12/06/2018 11:33 AM CDT) Glucose WB/POC 126(H) 70 - 106 mg/dL 12/06/2018 11:42 AM CDT [facility] Specimen Type Arterial/C apillary 12/06/2018 11:42 AM CDT [facility] Blood BLOOD SPECIMEN / Unknown 12/06/2018 11:33 AM CDT 12/06/2018 11:42 AM CDT Gely Medina MD LAB - POINT OF CARE ORDERABLES Performing Organization Address [facility] Co de Phone Number [facility] [address] [place], [place] [phone] * GLUCOSE - POINT OF CARE (12/06/2018 5:58 AM CDT) Glucose WB/POC 98 70 - 106 mg/dL 12/06/2018 6:08 AM CDT [facility] Specimen Type Arterial/C apillary 12/06/2018 6:08 AM CDT [facility] Blood BLOOD SPECIMEN / Unknown 12/06/2018 5:58 AM CDT 12/06/2018 6:08 AM CDT Gely Medina MD LAB - POINT OF CARE ORDERABLES Performing Organization Address [facility] Co de Phone Number [facility] [address] [place] [phone] * NONSTRESS TEST (12/05/2018 8:31 PM CDT) Narrative Mallory Brower MD - 12/05/2018 8:31 PM CDT Gabrielle Lui MD ? 12/05/2018 ??6:29 AM Name: ??Cait Mathews Date of : ??1995 Today's Date: ??12/04/2018 Start 1344 Stop 1418 ?NST RESULTS (HERNADEZ) OBJECTIVE FINDINGS Temp: 98 ??F (36.7 ??C), Pulse: 81, Resp: 18, BP: 137/83 NST Indication(s): Placenta Previa Uterine Irritability: Yes Contractions: Not present OBJECTIVE FINDINGS Movement: Present Monitoring Mode: External Baseline: 135 BPM Variability: Moderate Decelerations: Variable Accelerations: Yes OTHER INFORMATION Inpatient Interventions: None Lynda Campuzano RN Non-Stress Test (NST) Cait Mathews [id number] 12/05/2018 6:07 AM Indications: Patient Active Problem [...] Flores MD OB GYNE ORDERABLES * (ABNORMAL) GLUCOSE - POINT OF CARE (12/05/2018 7:18 PM CDT) Glucose WB/POC 129(H) 70 - 106 mg/dL 12/05/2018 7:26 PM CDT [facility] Specimen Type Arterial/C apillary 12/05/2018 7:26 PM CDT [facility] Blood BLOOD SPECIMEN / Unknown 12/05/2018 7:18 PM CDT 12/05/2018 7:26 PM CDT Gely Medina MD LAB - POINT OF CARE ORDERABLES Performing Organization Address [facility] Co de Phone Number [facility] [address] [place] [phone] * (ABNORMAL) GLUCOSE - POINT OF CARE (12/05/2018 12:38 PM CDT) Glucose WB/POC 124(H) 70 - 106 mg/dL 12/05/2018 12:50 PM CDT [facility] Specimen Type Arterial/C apillary 12/05/2018 12:50 PM CDT [facility] Blood BLOOD SPECIMEN / Unknown 12/05/2018 12:38 PM CDT 12/05/2018 12:50 PM CDT Gely Medina MD LAB - POINT OF CARE ORDERABLES Performing Organization Address [facility] Co de Phone Number [facility] [address], [place] [phone] * SONOGRAM - LIMITED (12/05/2018 9:36 AM CDT) Anatomical Region Laterality Modality Other 12/05/2018 9:36 AM CDT Narrative 12/05/2018 4:50 PM CDT ?[facility] ? - [place] [facility] ?PHONE: ??FAX: Pat. Name: ?CAIT MATHEWS Pat. No: ?[id number] Study Date: ?? 12/05/2018 ??9:36am , Age: ? 1995, 23 Pregnancies: ?? 2, Para 1 Height: ? 60 in Weight: ? 180 lb LMP: ?Unknown GA by Base: ?? 33w5d ?? ULISES: 01/18/2019 GA Selected: ??33w5d (From [facility]) ULISES: ?01/18/2019 Referring MD: MD Hunter, [facility] Rod Buster: ??Poppy Shirley RDMS CPT4: ? [id number] BMI: ?35.15 Room: ? 556 Hist/Ind: ? [...] 12/05/2018 Start 1303 Stop 1359 NST RESULTS (HERNADEZ) OBJECTIVE FINDINGS Temp: 97.5 ??F (36.4 ??C), Pulse: 77, Resp: 18, BP: 127/85 NST Indication(s): Placenta Previa Uterine Irritability: Yes Contractions: Not present OBJECTIVE FINDINGS Movement: Present Monitoring Mode: External Baseline: 150 BPM Variability: Moderate Decelerations: Variable Accelerations: Yes OTHER INFORMATION Inpatient Interventions: None Lynda Campuzano RN Gabrielle Lui MD [facility] ORDERABLES * GLUCOSE - POINT OF CARE (12/05/2018 6:00 AM CDT) Pathologist [facility] [place] Glucose WB/POC 94 70 - 106 mg/dL 12/05/2018 6:09 AM CDT [facility] Specimen Type Arterial/C apillary 12/05/2018 6:09 AM CDT [facility] Blood BLOOD SPECIMEN / Unknown 12/05/2018 6:00 AM CDT 12/05/2018 6:09 AM CDT Gely Medina MD LAB - POINT OF CARE ORDERABLES Performing Organization Address [facility]/State/ZIP Co de Phone Number [facility] [address] [place] [address] * (ABNORMAL) CBC W AUTO DIFFERENTIAL (12/05/2018 5:50 AM CDT) Pathologist [facility] [place] WBC 13.2(H) 4.4 - 10.7 x10E9/L 12/05/2018 6:15 AM CDT [facility] WBC Corrected x10E9/L 12/05/2018 6:15 AM CDT [facility] RBC 3.84 3.80 - 5.20 x10E12/L 12/05/2018 6:15 AM CDT [facility] Hemoglobin 11.3(L) 12.0 - 15.6 gm/dL 12/05/2018 6:15 AM CDT [facility] Hematocrit 35.2(L) 35.9 - 45.5 % 12/05/2018 6:15 AM CDT [facility] MCV 91.7 80.7 - 98.3 fl 12/05/2018 6:15 AM CDT [facility] MCH 29.4 26.7 - 34.0 pg 12/05/2018 6:15 AM CDT [facility] MCHC 32.1 30.8 - 35.9 gm/dL 12/05/2018 6:15 AM CDT [facility] Platelet Count 209 153 - 416 x10E9/L 12/05/2018 6:15 AM CDT [facility] RDW-CV 13.6 12.1 - 14.9 % 12/05/2018 6:15 AM CDT [facility] MPV 11.5 9.4 - 12.9 fl 12/05/2018 6:15 AM CDT [facility] Neutrophils % 71.1 44.0 - 73.0 % 12/05/2018 6:15 AM CDT [facility] Lymphocytes % 17.2(L) 20.0 - 43.0 % 12/05/2018 6:15 AM CDT [facility] Monocytes % 6.2 5.0 - 13.0 % 12/05/2018 6:15 AM CDT [facility] Eosinophils % 1.1 0.0 - 6.0 % 12/05/2018 6:15 AM CDT [facility] Basophils % 0.4 0.0 - 2.0 % 12/05/2018 6:15 AM CDT [facility] Immature Granulocytes 4.0(H) 0 - 1 % 12/05/2018 6:15 AM CDT [facility] Neutrophil Absolute 9.40(H) 2.01 - 7.14 x10E9/L 12/05/2018 6:15 AM CDT [facility] Lymphocytes Absolute 2.27 1.07 - 3.94 x10E9/L 12/05/2018 6:15 AM CDT [facility] Monocytes Absolute 0.82 0.26 - 1.07 x10E9/L 12/05/2018 6:15 AM CDT [facility] Eosinophils Absolute 0.15 0 - 0.47 x10E9/L 12/05/2018 6:15 AM CDT [facility] Basophils Absolute 0.05 0 - 0.08 x10E9/L 12/05/2018 6:15 AM CDT [facility] Immature Granulocytes Absolute 0.53(H) 0.00 - 0.06 x10E9/L 12/05/2018 6:15 AM CDT [facility] nRBC Auto 0 /100 WBC 12/05/2018 6:15 AM CDT [facility] Blood BLOOD SPECIMEN / Unknown Lab Venipuncture / Unknown 12/05/2018 5:50 AM CDT 12/05/2018 6:06 AM CDT Vijaya Ashton MD LAB - HEMATOLOGY OR DERABLES Performing Organization Address [facility] Co de Phone Number [facility] [address] [place] [address] * TYPE + SCREEN PANEL (12/05/2018 5:50 AM CDT) ABO B 12/05/2018 6:47 AM CDT [facility] Rh Type Positive 12/05/2018 6:47 AM CDT [facility] Comment:History checked. Antibody Screen Negative 12/05/2018 6:47 AM CDT [facility] Blood Bank BLOOD SPECIMEN / Unknown Lab Venipuncture / Unknown 12/05/2018 5:50 AM CDT 12/05/2018 6:06 AM CDT Vijaya Ashton MD LAB - BLOOD BANK OR DERABLES Performing Organization Address [facility] Co de Phone Number [facility] [address] [place] [address] * PREPARE (CROSSMATCH) RBC UNIT(S), 2 Units (12/05/2018 1:45 AM CDT) Product Code [id number] [facility] Unit Donor # [id number] [facility] ABO Donor Type B [facility] Rh Type Unit POS [facility] Unit Status Ret'd [facility] ABO Rh Type Unit BPOS [facility] Donor Unit Expiration Date [id number] [facility] Blood Type Barcode 7300 [facility] Product Code [id number] [facility] Unit Donor [facility] [id number] [facility] ABO Donor Type B [facility] Rh Type Unit POS [facility] Unit Status Ret'd [facility] ABO Rh Type Unit BPOS [facility] Donor Unit Expiration Date [id number] [facility] Blood Type Barcode 7300 [facility] Blood Bank BLOOD SPECIMEN / Unknown 12/05/2018 1:45 AM CDT Vijaya Ashton MD LAB - BLOOD BANK OR DERABLES Performing Organization Address City/[facility]/ZIP Co de Phone Number [facility] [address] [place] [address] * (ABNORMAL) GLUCOSE - POINT OF CARE (12/04/2018 8:36 PM CDT) Glucose WB/POC 125(H) 70 - 106 mg/dL 12/04/2018 8:46 PM CDT [facility] Specimen Type Arterial/C apillary 12/04/2018 8:46 PM CDT [facility] Blood BLOOD SPECIMEN / Unknown 12/04/2018 8:36 PM CDT 12/04/2018 8:46 PM CDT Narrative [facility] - 12/04/2018 8:46 PM CDT (3) Treated per Protocol Gely Medina MD LAB - POINT OF CARE ORDERABLES Performing Organization Address City/[facility]/ZIP Co de Phone Number [facility] [address] [place] [address] * (ABNORMAL) GLUCOSE - POINT OF CARE (12/04/2018 6:55 PM CDT) Glucose WB/POC 159(H) 70 - 106 mg/dL 12/04/2018 7:04 PM CDT [facility] Specimen Type Arterial/C apillary 12/04/2018 7:04 PM CDT [facility] Blood BLOOD SPECIMEN / Unknown 12/04/2018 6:55 PM CDT 12/04/2018 7:04 PM CDT Gely Medina MD LAB - POINT OF CARE ORDERABLES Performing Organization Address [facility] Co de Phone Number [facility] [address] [place] [address] * GLUCOSE - POINT OF CARE (12/04/2018 11:23 AM CDT) Glucose WB/POC 103 70 - 106 mg/dL 12/04/2018 11:33 AM CDT [facility] Specimen Type Arterial/C apillary 12/04/2018 11:33 AM CDT [facility] Blood BLOOD SPECIMEN / Unknown 12/04/2018 11:23 AM CDT 12/04/2018 11:33 AM CDT Gely Medina MD LAB - POINT OF CARE ORDERABLES Performing Organization Address [facility] de Phone Number [facility] [address] [place] [phone] * NONSTRESS TEST (12/04/2018 10:34 AM CDT) Narrative Candace Peacock MD - 12/04/2018 10:34 AM CDT Lianne Flores MD ? 12/04/2018 10:28 AM Name: ??Cait Mathews Date of : ??1995 Today's Date: ??12/03/2018 Start 1723 Stop 1754 ?NST RESULTS (HERNADEZ) OBJECTIVE FINDINGS Temp: 98.1 ??F (36.7 ??C), [...] Start: ??1436 ? Stop: ??1520 ?NST RESULTS (HERNADEZ) OBJECTIVE FINDINGS , ??, ??, ?? NST [...] 10:33 AM CDT Lianne Flores MD ? 12/03/2018 ??8:04 AM Name: ??Cait Mathews Date of : ??1995 Today's Date: ??12/02/2018 ?Start: ??1406 ?Stop: ??1510 ?NST RESULTS (HERNADEZ) OBJECTIVE FINDINGS Temp: 98.3 ??F (36.8 ??C), [...] Peacock MD - 12/04/2018 10:33 AM CDT Lainne Flores MD ? 12/01/2018 ??8:35 AM Name: ??Cait Mathews Date of : ??1995 Today's Date: ??11/30/2018 ? Start: ?? 0833 ?Stop: ??910 ?NST RESULTS (HERNADEZ) OBJECTIVE FINDINGS Temp: 97.8 ??F (36.6 ??C), [...] Date: ??11/29/2018 ?Start: ?? 1558 ?Stop: ?? 1622 ?NST RESULTS (HERNADEZ) OBJECTIVE FINDINGS Temp: 98.2 ??F (36.8 ??C), [...] ??1995 Today's Date: ??11/29/2018 ?Start: ??1009 ?Stop: ??1 ?NST RESULTS (HERNADEZ) OBJECTIVE FINDINGS Temp: 98.6 ??F (37 ??C), Pulse: 72, Resp: 18, BP: 131/83 NST Indication(s): Placenta Previa Uterine Irritability: Yes Contractions: ??(rare) Duration (sec) Range: 50 OBJECTIVE FINDINGS Movement: Present Monitoring Mode: External Baseline: 145 BPM Variability: Moderate Decelerations: None Accelerations: Yes OTHER INFORMATION Inpatient Interventions: None Charlene Storm, RN Non-Stress Test Indications: Patient Active Problem [...] Gerri Foreman MD OB GYNE ORDERABLES * GLUCOSE - POINT OF CARE (12/04/2018 6:16 AM CDT) Glucose WB/POC 102 70 - 106 mg/dL 12/04/2018 6:24 AM CDT [facility] Specimen Type Arterial/C apillary 12/04/2018 6:24 AM CDT [facility] Blood BLOOD SPECIMEN / Unknown 12/04/2018 6:16 AM CDT 12/04/2018 6:24 AM CDT Gely Medina MD LAB - POINT OF CARE ORDERABLES Performing Organization Address City/State/[facility] Co de Phone Number [facility] [address] [place] [address] * (ABNORMAL) GLUCOSE - POINT OF CARE (12/03/2018 8:22 PM CDT) Glucose WB/POC 129(H) 70 - 106 mg/dL 12/03/2018 8:28 PM CDT [facility] Specimen Type Arterial/C apillary 12/03/2018 8:28 PM CDT [facility] Blood BLOOD SPECIMEN / Unknown 12/03/2018 8:22 PM CDT 12/03/2018 8:28 PM CDT Gely Medina MD LAB - POINT OF CARE ORDERABLES Performing Organization Address [facility] Co de Phone Number [facility] [address] [place] [phone] * (ABNORMAL) GLUCOSE - POINT OF CARE (12/03/2018 3:52 PM CDT) Glucose WB/POC 155(H) 70 - 106 mg/dL 12/03/2018 4:26 PM CDT [facility] Specimen Type Arterial/C apillary 12/03/2018 4:26 PM CDT [facility] Blood BLOOD SPECIMEN / Unknown 12/03/2018 3:52 PM CDT 12/03/2018 4:26 PM CDT Gely Medina MD LAB - POINT OF CARE ORDERABLES Performing Organization Address [facility] Co de Phone Number [facility] [address] [place], [place] [phone] * (ABNORMAL) GLUCOSE - POINT OF CARE (12/03/2018 9:55 AM CDT) Glucose WB/POC 157(H) 70 - 106 mg/dL 12/03/2018 10:35 AM CDT [facility] Specimen Type Arterial/C apillary 12/03/2018 10:35 AM CDT [facility] Blood BLOOD SPECIMEN / Unknown 12/03/2018 9:55 AM CDT 12/03/2018 10:35 AM CDT Gely Medina MD LAB - POINT OF CARE ORDERABLES Performing Organization Address [facility] Co de Phone Number [facility] [address] [place] [phone] * GLUCOSE - POINT OF CARE (12/03/2018 5:58 AM CDT) Glucose WB/POC 89 70 - 106 mg/dL 12/03/2018 6:05 AM CDT [facility] Specimen Type Arterial/C apillary 12/03/2018 6:05 AM CDT [facility] Blood BLOOD SPECIMEN / Unknown 12/03/2018 5:58 AM CDT 12/03/2018 6:05 AM CDT Gely Medina MD LAB - POINT OF CARE ORDERABLES Performing Organization Address [facility]/ZIP Co de Phone Number [facility] [address] [place] [phone] * (ABNORMAL) GLUCOSE - POINT OF CARE (12/02/2018 6:49 PM CDT) Glucose WB/POC 132(H) 70 - 106 mg/dL 12/02/2018 7:04 PM CDT [facility] Specimen Type Arterial/C apillary 12/02/2018 7:04 PM CDT [facility] Blood BLOOD SPECIMEN / Unknown 12/02/2018 6:49 PM CDT 12/02/2018 7:04 PM CDT Gely Medina MD LAB - POINT OF CARE ORDERABLES Performing Organization Address [facility]/ZIP Co de Phone Number [facility] [address] [place] [phone] * (ABNORMAL) GLUCOSE - POINT OF CARE (12/02/2018 2:02 PM CDT) Glucose WB/POC 140(H) 70 - 106 mg/dL 12/02/2018 2:13 PM CDT [facility] Specimen Type Arterial/C apillary 12/02/2018 2:13 PM CDT [facility] Blood BLOOD SPECIMEN / Unknown 12/02/2018 2:02 PM CDT 12/02/2018 2:13 PM CDT Gely Medina MD LAB - POINT OF CARE ORDERABLES Performing Organization Address [facility]/ZIP Co de Phone Number [facility] [address] [place] [phone] * NONSTRESS TEST (12/02/2018 9:51 AM CDT) Narrative Candace Peacock MD - 12/02/2018 9:51 AM CDT Lianne Flores MD ? 12/02/2018 ??6:52 AM Name: ??Cait Mathews Date of : ??1995 Today's Date: ??12/01/2018 Start: 1300 Stop: 1348 ?NST RESULTS (HERNADEZ) OBJECTIVE FINDINGS Temp: 98 ??F (36.7 ??C), [...] Gerri Foreman MD OB GYNE ORDERABLES * (ABNORMAL) GLUCOSE - POINT OF CARE (12/02/2018 8:22 AM CDT) Glucose WB/POC 162(H) 70 - 106 mg/dL 12/02/2018 8:41 AM CDT [facility] Specimen Type Arterial/C apillary 12/02/2018 8:41 AM CDT [facility] Blood BLOOD SPECIMEN / Unknown 12/02/2018 8:22 AM CDT 12/02/2018 8:41 AM CDT Gely Medina MD LAB - POINT OF CARE ORDERABLES Performing Organization Address [facility] Co de Phone Number [facility] [address] [place] [phone] * GLUCOSE - POINT OF CARE (12/02/2018 5:07 AM CDT) Glucose WB/POC 96 70 - 106 mg/dL 12/02/2018 5:59 AM CDT [facility] Specimen Type Arterial/C apillary 12/02/2018 5:59 AM CDT [facility] Blood BLOOD SPECIMEN / Unknown 12/02/2018 5:07 AM CDT 12/02/2018 5:59 AM CDT Gely Medina MD LAB - POINT OF CARE ORDERABLES Performing Organization Address [facility] Co de Phone Number [facility] [address] [place] [phone] * (ABNORMAL) GLUCOSE - POINT OF CARE (12/01/2018 7:14 PM CDT) Glucose WB/POC 135(H) 70 - 106 mg/dL 12/01/2018 7:45 PM CDT [facility] Specimen Type Arterial/C apillary 12/01/2018 7:45 PM CDT [facility] Blood BLOOD SPECIMEN / Unknown 12/01/2018 7:14 PM CDT 12/01/2018 7:45 PM CDT Gely Medina MD LAB - POINT OF CARE ORDERABLES Performing Organization Address [facility] Co de Phone Number [facility] [address] [place] [phone] * (ABNORMAL) GLUCOSE - POINT OF CARE (12/01/2018 2:53 PM CDT) Glucose WB/POC 129(H) 70 - 106 mg/dL 12/01/2018 3:00 PM CDT [facility] Specimen Type Arterial/C apillary 12/01/2018 3:00 PM CDT [facility] Blood BLOOD SPECIMEN / Unknown 12/01/2018 2:53 PM CDT 12/01/2018 3:00 PM CDT Gely Medina MD LAB - POINT OF CARE ORDERABLES Performing Organization Address [facility]/ZIP Co de Phone Number [facility] [address] [place] [phone] * (ABNORMAL) GLUCOSE - POINT OF CARE (12/01/2018 12:44 PM CDT) Glucose WB/POC 111(H) 70 - 106 mg/dL 12/01/2018 12:59 PM CDT [facility] Specimen Type Arterial/C apillary 12/01/2018 12:59 PM CDT [facility] Blood BLOOD SPECIMEN / Unknown 12/01/2018 12:44 PM CDT 12/01/2018 12:59 PM CDT Gely Medina MD LAB - POINT OF CARE ORDERABLES Performing Organization Address [facility] Co de Phone Number [facility] [address] [place] [phone] * PREPARE (CROSSMATCH) RBC UNIT(S), 2 Units (12/01/2018 6:30 AM CDT) Product Code [id number] [facility] Unit Donor # [id number] [facility] ABO Donor Type O [facility] Rh [facility] Unit POS [facility] BANK LAB Unit Status Ret'd [facility] ABO Rh Type Unit OPOS [facility] Donor Unit Expiration Date [id number] [facility] Blood Type Barcode 5100 [facility] Product Code [id number] [facility] Unit Donor # [id number] [facility] ABO Donor Type O [facility] Rh Type Unit POS [facility] BL OOD BANK LAB Unit Status Ret'd [facility] BLO OD BANK LAB ABO Rh Type Unit OPOS [facility] Donor Unit Expiration Date [id number] [facility] Blood Type Barcode 5100 [facility] Blood Bank BLOOD SPECIMEN / Unknown 12/01/2018 6:30 AM CDT Vijaya Ashton MD LAB - BLOOD BANK OR DERABLES Performing Organization Address City/State/[facility] Co de Phone Number [facility] [address] [phone] * (ABNORMAL) CBC W AUTO DIFFERENTIAL (12/01/2018 5:53 AM CDT) WBC 15.6(H) 4.4 - 10.7 x10E9/L 12/01/2018 6:18 AM CDT [facility] WBC Corrected x10E9/L 12/01/2018 6:18 AM CDT [facility] RBC 3.84 3.80 - 5.20 x10E12/L 12/01/2018 6:18 AM CDT [facility] Hemoglobin 11.5(L) 12.0 - 15.6 gm/dL 12/01/2018 6:18 AM CDT [facility] Hematocrit 34.9(L) 35.9 - 45.5 % 12/01/2018 6:18 AM CDT [facility] MCV 90.9 80.7 - 98.3 fl 12/01/2018 6:18 AM CDT [facility] MCH 29.9 26.7 - 34.0 pg 12/01/2018 6:18 AM CDT [facility] MCHC 33.0 30.8 - 35.9 gm/dL 12/01/2018 6:18 AM CDT [facility] Platelet Count 219 153 - 416 x10E9/L 12/01/2018 6:18 AM CDT [facility] RDW-CV 13.4 12.1 - 14.9 % 12/01/2018 6:18 AM CDT [facility] MPV 11.1 9.4 - 12.9 fl 12/01/2018 6:18 AM CDT [facility] Neutrophils % 71.7 44.0 - 73.0 % 12/01/2018 6:18 AM CDT [facility] Lymphocytes % 16.9(L) 20.0 - 43.0 % 12/01/2018 6:18 AM CDT [facility] Monocytes % 5.7 5.0 - 13.0 % 12/01/2018 6:18 AM CDT [facility] Eosinophils % 1.0 0.0 - 6.0 % 12/01/2018 6:18 AM CDT [facility] Basophils % 0.3 0.0 - 2.0 % 12/01/2018 6:18 AM CDT [facility] Immature Granulocytes 4.4(H) 0 - 1 % 12/01/2018 6:18 AM CDT [facility] Neutrophil Absolute 11.20(H) 2.01 - 7.14 x10E9/L 12/01/2018 6:18 AM CDT [facility] Lymphocytes Absolute 2.63 1.07 - 3.94 x10E9/L 12/01/2018 6:18 AM CDT [facility] Monocytes Absolute 0.89 0.26 - 1.07 x10E9/L 12/01/2018 6:18 AM CDT [facility] Eosinophils Absolute 0.15 0 - 0.47 x10E9/L 12/01/2018 6:18 AM CDT [facility] Basophils Absolute 0.05 0 - 0.08 x10E9/L 12/01/2018 6:18 AM CDT [facility] Immature Granulocytes Absolute 0.68(H) 0.00 - 0.06 x10E9/L 12/01/2018 6:18 AM CDT [facility] nRBC Auto 0 /100 WBC 12/01/2018 6:18 AM CDT [facility] Blood BLOOD SPECIMEN / Unknown Lab Venipuncture / Unknown 12/01/2018 5:53 AM CDT 12/01/2018 6:07 AM CDT Cheryl Tello MD LAB - HEMATOLOGY ORD ERABLES [facility] [address] [place], [place] [id number] * TYPE + SCREEN PANEL (12/01/2018 5:53 AM CDT) ABO B 12/01/2018 6:47 AM CDT [facility] Rh Type Positive 12/01/2018 6:47 AM CDT [facility] Comment:History checked. Antibody Screen Negative 12/01/2018 6:47 AM CDT [facility] Blood Bank BLOOD SPECIMEN / Unknown Lab Venipuncture / Unknown 12/01/2018 5:53 AM CDT 12/01/2018 6:07 AM CDT Cheryl Tello MD LAB - BLOOD BANK ORD ERABLES Performing Organization Address City/[facility]/ZIP Co de Phone Number [facility] [address] [place] [address] * GLUCOSE - POINT OF CARE (12/01/2018 5:52 AM CDT) Glucose WB/POC 100 70 - 106 mg/dL 12/01/2018 11:14 AM CDT [facility] Specimen Type Arterial/C apillary 12/01/2018 11:14 AM CDT [facility] Blood BLOOD SPECIMEN / Unknown 12/01/2018 5:52 AM CDT 12/01/2018 11:14 AM CDT Gely Medina MD LAB - POINT OF CARE ORDERABLES Performing Organization Address [facility] Co de Phone Number [facility] [address] [place] [address] * (ABNORMAL) GLUCOSE - POINT OF CARE (11/30/2018 6:36 PM CDT) Glucose WB/POC 127(H) 70 - 106 mg/dL 11/30/2018 6:50 PM CDT [facility] Specimen Type Arterial/C apillary 11/30/2018 6:50 PM CDT [facility] Blood BLOOD SPECIMEN / Unknown 11/30/2018 6:36 PM CDT 11/30/2018 6:50 PM CDT Gely Medina MD LAB - POINT OF CARE ORDERABLES Performing Organization Address City/[facility]/ZIP Co de Phone Number [facility] [address] [place] [address] * (ABNORMAL) GLUCOSE - POINT OF CARE (11/30/2018 2:52 PM CDT) Glucose WB/POC 119(H) 70 - 106 mg/dL 11/30/2018 3:14 PM CDT [facility] Specimen Type Arterial/C apillary 11/30/2018 3:14 PM CDT [facility] Blood BLOOD SPECIMEN / Unknown 11/30/2018 2:52 PM CDT 11/30/2018 3:13 PM CDT Gely Medina MD LAB - POINT OF CARE ORDERABLES Performing Organization Address City/[facility]/ZIP Co de Phone Number [facility] [address] [place] [address] * (ABNORMAL) GLUCOSE - POINT OF CARE (11/30/2018 9:13 AM CDT) Glucose WB/POC 131(H) 70 - 106 mg/dL 11/30/2018 9:21 AM CDT [facility] Specimen Type Arterial/C apillary 11/30/2018 9:21 AM CDT [facility] Blood BLOOD SPECIMEN / Unknown 11/30/2018 9:13 AM CDT 11/30/2018 9:21 AM CDT Gely Medina MD LAB - POINT OF CARE ORDERABLES [facility] [address] [place] [address] * GLUCOSE - POINT OF CARE (11/30/2018 6:07 AM CDT) Glucose WB/POC 100 70 - 106 mg/dL 11/30/2018 6:15 AM CDT [facility] Specimen Type Arterial/C apillary 11/30/2018 6:15 AM CDT [facility] Blood BLOOD SPECIMEN / Unknown 11/30/2018 6:07 AM CDT 11/30/2018 6:15 AM CDT Gely Medina MD LAB - POINT OF CARE ORDERABLES [facility] [address] [place] [address] * NONSTRESS TEST (11/29/2018 10:24 PM CDT) Narrative Candace Peacock MD - 11/29/2018 10:24 PM CDT Lianne Flores MD ? 11/29/2018 ??9:44 AM Name: ??Cait Mathews Date of : ??1995 Today's Date: ??11/29/2018 ?? Start: 2355 Stop: 48 ?NST RESULTS (HERNADEZ) OBJECTIVE FINDINGS Temp: 98.1 ??F (36.7 ??C), [...] of : ??1995 Today's Date: ??11/28/2018 Start: 1737 End: 1819 ?NST RESULTS (HERNADEZ) OBJECTIVE FINDINGS , Pulse: 89, Resp: 18, [...] ??11/28/2018 Start: 1020 End: 1058 ?NST RESULTS (HERNADEZ) OBJECTIVE FINDINGS Temp: 98 ??F (36.7 ??C), [...] Gerri Foreman MD OB GYNE ORDERABLES * (ABNORMAL) GLUCOSE - POINT OF CARE (11/29/2018 8:04 PM CDT) Glucose WB/POC 135(H) 70 - 106 mg/dL 11/29/2018 8:35 PM CDT [facility] Specimen Type Arterial/C apillary 11/29/2018 8:35 PM CDT [facility] Blood BLOOD SPECIMEN / Unknown 11/29/2018 8:04 PM CDT 11/29/2018 8:35 PM CDT Gely Medina MD LAB - POINT OF CARE ORDERABLES Performing Organization Address City/[facility]/ZIP Co de Phone Number [facility] [address] [place] [address] * (ABNORMAL) GLUCOSE - POINT OF CARE (11/29/2018 2:15 PM CDT) Glucose WB/POC 107(H) 70 - 106 mg/dL 11/29/2018 2:22 PM CDT [facility] Specimen Type Arterial/C apillary 11/29/2018 2:22 PM CDT [facility] Blood BLOOD SPECIMEN / Unknown 11/29/2018 2:15 PM CDT 11/29/2018 2:22 PM CDT Gely Medina MD LAB - POINT OF CARE ORDERABLES Performing Organization Address [facility] Co de Phone Number [facility] [address] [place] [phone] * (ABNORMAL) GLUCOSE - POINT OF CARE (11/29/2018 12:10 PM CDT) Glucose WB/POC 129(H) 70 - 106 mg/dL 11/29/2018 12:39 PM CDT [facility] Specimen Type Arterial/C apillary 11/29/2018 12:39 PM CDT [facility] Blood BLOOD SPECIMEN / Unknown 11/29/2018 12:10 PM CDT 11/29/2018 12:39 PM CDT Gely Medina MD LAB - POINT OF CARE ORDERABLES Performing Organization Address City/[facility]/ZIP Co de Phone Number [facility] [address] [place] [address] * GLUCOSE - POINT OF CARE (11/29/2018 5:10 AM CDT) Glucose WB/POC 100 70 - 106 mg/dL 11/29/2018 5:41 AM CDT [facility] Specimen Type Arterial/C apillary 11/29/2018 5:41 AM CDT [facility] Blood BLOOD SPECIMEN / Unknown 11/29/2018 5:10 AM CDT 11/29/2018 5:41 AM CDT Gely Medina MD LAB - POINT OF CARE ORDERABLES [facility] [address] [place] [address] * NONSTRESS TEST (11/28/2018 9:19 PM CDT) Narrative Candace Peacock MD - 11/28/2018 9:19 PM CDT Lianne Flores MD ? 11/28/2018 ??7:40 AM NST Start:[id number] Stop:11-27-18; 2314 Name: ??Cait Mathews Date of : ??1995 Today's Date: ??11/28/2018 ?? NST RESULTS (HERNADEZ) OBJECTIVE FINDINGS Temp: 98.2 ??F (36.8 ??C), Pulse: 70, Resp: 16, BP: 141/82 NST Indication(s): Placenta Previa Uterine Irritability: Yes Contractions: Not present ?? OBJECTIVE FINDINGS Movement: Present Monitoring Mode: External Baseline: 150 BPM Variability: Moderate Decelerations: None Accelerations: Yes OTHER INFORMATION Inpatient Interventions: None Elizabeth Machuca, FLEX Non-Stress Test Indications: Patient Active Problem [...] Gerri Foreman MD OB GYNE ORDERABLES * GLUCOSE - POINT OF CARE (11/28/2018 7:25 PM CDT) Glucose WB/POC 102 70 - 106 mg/dL 11/28/2018 7:36 PM CDT [facility] Specimen Type Arterial/C apillary 11/28/2018 7:36 PM CDT [facility] Blood BLOOD SPECIMEN / Unknown 11/28/2018 7:25 PM CDT 11/28/2018 7:36 PM CDT Narrative [facility] - 11/28/2018 7:36 PM CDT (3) Treated per Protocol Gely Medina MD LAB - POINT OF CARE ORDERABLES [facility] [address] [place] [address] * PROTEIN CREATININE RATIO URINE RANDOM PNL (11/28/2018 4:48 PM CDT) Protein Urine 18.5 mg/dL 11/28/2018 5:23 PM CDT [facility] Creatinine Urine 65.84 mg/dL 11/28/2018 5:23 PM CDT [facility] Protein/Creatin ine Ratio Urine 0.28 11/28/2018 5:23 PM CDT [facility] Urine URINE SPECIMEN OBTAINED BY CLEAN CATCH PROCEDURE / Unknown Collection / Unknown 11/28/2018 4:48 PM CDT 11/28/2018 5:00 PM CDT Cheryl Tello MD LAB - URINE CHEMISTR Y ORDERABLES Performing Organization Address [facility] Co de Phone Number [facility] [address] [place] [address] * (ABNORMAL) GLUCOSE - POINT OF CARE (11/28/2018 4:42 PM CDT) Glucose WB/POC 136(H) 70 - 106 mg/dL 11/28/2018 5:06 PM CDT [facility] Specimen Type Arterial/C apillary 11/28/2018 5:06 PM CDT [facility] Blood BLOOD SPECIMEN / Unknown 11/28/2018 4:42 PM CDT 11/28/2018 5:06 PM CDT Gely Medina MD LAB - POINT OF CARE ORDERABLES Performing Organization Address [facility] Co de Phone Number [facility] [address] [place] [address] * (ABNORMAL) GLUCOSE - POINT OF CARE (11/28/2018 12:41 PM CDT) Glucose WB/POC 144(H) 70 - 106 mg/dL 11/28/2018 12:52 PM CDT [facility] Specimen Type Arterial/C apillary 11/28/2018 12:52 PM CDT [facility] Blood BLOOD SPECIMEN / Unknown 11/28/2018 12:41 PM CDT 11/28/2018 12:52 PM CDT Gely Medina MD LAB - POINT OF CARE ORDERABLES Performing Organization Address [facility] Co de Phone Number [facility] [address] [place] [phone] * CULTURE URINE (11/28/2018 10:25 AM CDT) Culture Urine 10,000-50,000 CFU/mL [facility] AL[facility] 11/29/2018 2:39 PM CDT [facility] Urine URINE SPECIMEN OBTAINED BY CLEAN CATCH PROCEDURE / Unknown Collection / Unknown 11/28/2018 10:25 AM CDT 11/28/2018 10:33 AM CDT Cheryl Tello MD LAB - MICROBIOLOGY O RDERABLES [facility] [address] [place] [address], [facility] [phone] * (ABNORMAL) URINE MICROSCOPIC ONLY REFLEX TO CULTURE (11/28/2018 10:25 AM CDT) Reflex Status Culture to follow 11/28/2018 11:12 AM CDT [facility] RBC UA 3-5 None Seen, 0-2, 3-5 # /hpf 11/28/2018 11:12 AM CDT [facility] WBC UA 0-5 None Seen, 0-5 # /hpf 11/28/2018 11:12 AM CDT [facility] Bacteria UA 2+(A) None Seen 11/28/2018 11:12 AM CDT [facility] Squamous Epithelial Cells 11-20(A) None Seen, 0-2, 3-5 /hpf 11/28/2018 11:12 AM CDT [facility] Mucus UA 1+ /LPF 11/28/2018 11:12 AM CDT [facility] Hyaline Casts 0-2 None Seen, 0-2 # /lpf 11/28/2018 11:12 AM CDT [facility] Urine URINE SPECIMEN OBTAINED BY CLEAN CATCH PROCEDURE / Unknown Collection / Unknown 11/28/2018 10:25 AM CDT 11/28/2018 10:33 AM CDT Narrative [facility] - 11/28/2018 11:12 AM CDT Cheryl Tello MD LAB - URINALYSIS ORD ERABLES [facility] [address] [place] [address] * (ABNORMAL) URINALYSIS REFLEX MICROSCOPIC REFLEX CULTURE (11/28/2018 10:25 AM CDT) Color UA Yellow Straw, Yellow 11/28/2018 11:12 AM CDT [facility] Clarity UA Slt Cloudy(A) Clear 11/28/2018 11:12 AM CDT [facility] Glucose UA Negative Negative 11/28/2018 11:12 AM CDT [facility] Bilirubin UA Negative Negative 11/28/2018 11:12 AM CDT [facility] Ketone UA Negative Negative 11/28/2018 11:12 AM CDT [facility] Specific [place] UA 1.015 1.005 - 1.030 11/28/2018 11:12 AM CDT [facility] Blood UA 1+(A) Negative 11/28/2018 11:12 AM CDT [facility] pH UA 7.0 5.0 - 8.0 pH 11/28/2018 11:12 AM CDT [facility] Protein UA Negative Negative 11/28/2018 11:12 AM CDT [facility] Urobilinogen UA Negative Negative mg/dL 11/28/2018 11:12 AM CDT [facility] Nitrite UA Negative Negative 11/28/2018 11:12 AM CDT [facility] Leukocyte UA Trace(A) Negative 11/28/2018 11:12 AM CDT [facility] Urine Microscopy Urine microscopy to follow 11/28/2018 11:12 AM CDT [facility] Reflex Status Culture to follow 11/28/2018 11:12 AM CDT [facility] Urine URINE SPECIMEN OBTAINED BY CLEAN CATCH PROCEDURE / Unknown Collection / Unknown 11/28/2018 10:25 AM CDT 11/28/2018 10:33 AM CDT Narrative [facility] - 11/28/2018 11:12 AM CDT Cheryl Tello MD LAB - URINALYSIS ORD ERABLES [facility] [address] [place] [address] * PREPARE (CROSSMATCH) RBC UNIT(S), 2 Units (11/28/2018 5:30 AM CDT) Product Code [id number] [facility] Unit Donor # [id number] [facility] ABO Donor Type B [facility] Rh Type Unit POS [facility] Unit Status Ret'd [facility] ABO Rh Type Unit BPOS [facility] Donor Unit Expiration [facility] Blood Type Barcode 7300 [facility] Product Code [id number] [facility] Unit Donor # [id number] S [facility] ABO Donor Type B [facility] Rh Type Unit POS [facility] Unit Status Ret'd [facility] ABO Rh Type Unit BPOS [facility] Donor Unit Expiration Date [facility] Blood Type Barcode 7300 [facility] Blood Bank BLOOD SPECIMEN / Unknown 11/28/2018 5:30 AM CDT Cheryl Tello MD LAB - BLOOD BANK ORD ERABLES Performing Organization Address City/[facility]/ZIP Co de Phone Number [facility] [address] [place] [address] * GLUCOSE - POINT OF CARE (11/28/2018 5:06 AM CDT) Glucose WB/POC 106 70 - 106 mg/dL 11/28/2018 5:17 AM CDT [facility] Specimen Type Arterial/C apillary 11/28/2018 5:17 AM CDT [facility] Blood BLOOD SPECIMEN / Unknown 11/28/2018 5:06 AM CDT 11/28/2018 5:17 AM CDT Narrative [facility] - 11/28/2018 5:17 AM CDT (2) Provider Notified Gely Medina MD LAB - POINT OF CARE ORDERABLES Performing Organization Address City/[facility]/ZIP Co de Phone Number [facility] [address] [place] [address] * BLOOD TYPE VERIFICATION (11/28/2018 3:34 AM CDT) ABO B 11/28/2018 6:03 AM CDT [facility] Rh Type Positive 11/28/2018 6:03 AM CDT [facility] Blood Bank BLOOD SPECIMEN / Unknown Lab Venipuncture / Unknown 11/28/2018 3:34 AM CDT 11/28/2018 5:32 AM CDT Gely Medina MD LAB - BLOOD BANK OR DERABLES [facility] [address] [id number] [phone] * (ABNORMAL) DIFFERENTIAL MANUAL (11/28/2018 3:34 AM CDT) WBC Auto 13.7 x10E9/L 11/28/2018 4:46 AM CDT [facility] WBC Corrected 4.4 - 10.7 x10E9/L 11/28/2018 4:46 AM CDT [facility] nRBC /100 WBC 11/28/2018 4:46 AM CDT [facility] Neutrophil % Manual 80(H) 44 - 73 % 11/28/2018 4:46 AM CDT [facility] Lymphocytes % Manual 8(L) 20 - 43 % 11/28/2018 4:46 AM T [facility] Monocytes % Manual 1(L) 5 - 13 % 11/28/2018 4:46 AM CDT [facility] Eosinophils % Manual 1 0 - 6 % 11/28/2018 4:46 AM CDT [facility] Atypical Lymphocyte % Manual 4(H) <=0 % 11/28/2018 4:46 AM CDT [facility] Band % Manual 2 0 - 11 % 11/28/2018 4:46 AM CDT [facility] [place] Manual 3(H) <=0 % 11/28/2018 4:46 AM CDT [facility] Myelocytes % Manual 1(H) <=0 % 11/28/2018 4:46 AM T [facility] Cells Counted 100 # cells 11/28/2018 4:46 AM T [facility] RBC Morphology Normal 11/28/2018 4:46 AM CDT [facility] WBC Morph Normal 11/28/2018 4:46 AM T [facility] Platelet Estimation Normal 11/28/2018 4:46 AM T [facility] Blood BLOOD SPECIMEN / Unknown Lab Venipuncture / Unknown 11/28/2018 3:34 AM CDT 11/28/2018 4:04 AM CDT Cheryl Tello MD LAB - HEMATOLOGY ORD ERABLES [facility] [address] [place] [address] * (ABNORMAL) COMPREHENSIVE METABOLIC PANEL (11/28/2018 3:34 AM CDT) Glucose 104 74 - 106 mg/dL 11/28/2018 4:41 AM CDT [facility] Sodium 137 136 - 145 mmol/L 11/28/2018 4:41 AM CDT [facility] Potassium 3.9 3.5 - 5.1 mmol/L 11/28/2018 4:41 AM CDT [facility] Chloride 107 98 - 107 mmol/L 11/28/2018 4:41 AM CDT [facility] CO2 21(L) 23 - 31 mmol/L 11/28/2018 4:41 AM CDT [facility] Calcium 9.0 8.4 - 10.2 mg/dL 11/28/2018 4:41 AM CDT [facility] Anion Gap 9 8 - 16 mmol/L 11/28/2018 4:41 AM CDT [facility] BUN 7 7 - 18.7 mg/dL 11/28/2018 4:41 AM CDT [facility] Creatinine 0.37(L) 0.55 - 1.02 mg/dL 11/28/2018 4:41 AM CDT [facility] Alkaline Phosphatase 156(H) 40 - 150 U/L 11/28/2018 4:41 AM CDT [facility] ALT 11(L) 13 - 61 U/L 11/28/2018 4:41 AM CDT [facility] AST 10 5 - 34 U/L 11/28/2018 4:41 AM CDT [facility] Protein Total 6.0(L) 6.4 - 8.3 gm/dL 11/28/2018 4:41 AM CDT [facility] Albumin 3.3(L) 3.5 - 5.2 gm/dL 11/28/2018 4:41 AM CDT [facility] Bilirubin Total 0.2 0.2 - 1.0 mg/dL 11/28/2018 4:41 AM CDT [facility] eGFR by MDRD >60 >60 mL/min/1.7 3m2 11/28/2018 4:41 AM CDT [facility] eGFR by MDRD >60 >60 mL/min/1.7 3m2 11/28/2018 4:41 AM CDT [facility] Blood BLOOD SPECIMEN / Unknown Lab Venipuncture / Unknown 11/28/2018 3:34 AM CDT 11/28/2018 4:04 AM CDT Cheryl Tello MD LAB - CHEMISTRY [facility] Organization Address City/State/ZIP Co de Phone Number [facility] [address], [place] [id number] * (ABNORMAL) CBC W AUTO DIFFERENTIAL (11/28/2018 3:34 AM CDT) WBC 13.7(H) 4.4 - 10.7 x10E9/L 11/28/2018 4:24 AM CDT [facility] WBC Corrected x10E9/L 11/28/2018 4:24 AM CDT [facility] RBC 3.54(L) 3.80 - 5.20 x10E12/L 11/28/2018 4:24 AM CDT [facility] Hemoglobin 10.4(L) 12.0 - 15.6 gm/dL 11/28/2018 4:24 AM T [facility] Hematocrit 32.4(L) 35.9 - 45.5 % 11/28/2018 4:24 AM CDT [facility] MCV 91.5 80.7 - 98.3 fl 11/28/2018 4:24 AM CDT [facility] MCH 29.4 26.7 - 34.0 pg 11/28/2018 4:24 AM CDT [facility] MCHC 32.1 30.8 - 35.9 gm/dL 11/28/2018 4:24 AM CDT [facility] Platelet Count 214 153 - 416 x10E9/L 11/28/2018 4:24 AM T [facility] RDW-CV 13.0 12.1 - 14.9 % 11/28/2018 4:24 AM CDT [facility] MPV 11.2 9.4 - 12.9 fl 11/28/2018 4:24 AM CDT [facility] nRBC Auto 0 /100 WBC 11/28/2018 4:24 AM CDT [facility] Blood BLOOD SPECIMEN / Unknown Lab Venipuncture / Unknown 11/28/2018 3:34 AM CDT 11/28/2018 4:04 AM CDT Cheryl Tello MD LAB - HEMATOLOGY ORD ERABLES Performing Organization Address [facility]/ZIP Co de Phone Number [facility] [address] [place] [phone] * (ABNORMAL) GLUCOSE - POINT OF CARE (11/27/2018 7:02 PM CDT) Glucose WB/POC 150(H) 70 - 106 mg/dL 11/27/2018 7:09 PM CDT [facility] Specimen Type Venous 11/27/2018 7:09 PM CDT [facility] Blood BLOOD SPECIMEN / Unknown 11/27/2018 7:02 PM CDT 11/27/2018 7:09 PM CDT Gely Medina MD LAB - POINT OF CARE ORDERABLES Performing Organization Address [facility] Co de Phone Number [facility] [address] [place] [phone] * (ABNORMAL) GLUCOSE - POINT OF CARE (11/27/2018 1:32 PM CDT) Glucose WB/POC 117(H) 70 - 106 mg/dL 11/27/2018 1:41 PM CDT [facility] Specimen Type Venous 11/27/2018 1:41 PM CDT [facility] Blood BLOOD SPECIMEN / Unknown 11/27/2018 1:32 PM CDT 11/27/2018 1:41 PM CDT Gely Medina MD LAB - POINT OF CARE ORDERABLES Performing Organization Address [facility] Co de Phone Number [facility] [address] [place] [phone] * (ABNORMAL) GLUCOSE - POINT OF CARE (11/27/2018 9:19 AM CDT) Glucose WB/POC 119(H) 70 - 106 mg/dL 11/27/2018 10:36 AM CDT [facility] Specimen Type Venous 11/27/2018 10:36 AM CDT [facility] Blood BLOOD SPECIMEN / Unknown 11/27/2018 9:19 AM CDT 11/27/2018 10:36 AM CDT Gely Medina MD LAB - POINT OF CARE ORDERABLES Performing Organization Address City/State/[facility] Co de Phone Number [facility] [address] [place] [address] * NONSTRESS TEST (11/27/2018 7:44 AM CDT) Narrative Amadou Roberts MD - 11/27/2018 7:44 AM CDT Charlene Storm RN ? 11/26/2018 10:57 AM ??Name: ??Cait Mathews Date of : ??1995 Today's Date: ??11/26/2018 ?Start: ??956 ?Stop: ??1031 ?NST RESULTS (HERNADEZ) OBJECTIVE FINDINGS Temp: 98.1 ??F (36.7 ??C), [...] ?Start: ??1125 ?Stop: ?? 1259 ?NST RESULTS (HERNADEZ) OBJECTIVE FINDINGS , ??, ??, BP: 146/88 [...] ??11/26/2018 ?Start: ??1649 ?Stop: ??1730 ?NST RESULTS (HERNADEZ) OBJECTIVE FINDINGS Temp: 98.9 ??F (37.2 ??C), [...] Machuca RN ? 11/26/2018 11:57 PM NST Start:11-26-182238 Stop:11-26-18; 2311 Name: ??Cait Mathews Date of : ??1995 Today's Date: ??11/26/2018 ?? NST RESULTS (HERNADEZ) OBJECTIVE FINDINGS Temp: 98 ??F (36.7 ??C), Pulse: 98, Resp: 16, BP: 119/63 NST Indication(s): Placenta Previa Uterine Irritability: Yes Contractions: Not present OBJECTIVE FINDINGS Movement: Present Monitoring Mode: External Baseline: 140 BPM Variability: Moderate Decelerations: None Accelerations: Yes OTHER INFORMATION Inpatient Interventions: None Elizabeth Machuca, RN Gerri Foreman MD OB GYNE ORDERABLES * (ABNORMAL) GLUCOSE - POINT OF CARE (11/27/2018 5:54 AM CDT) Glucose WB/POC 111(H) 70 - 106 mg/dL 11/27/2018 6:08 AM CDT [facility] Specimen Type Arterial/C apillary 11/27/2018 6:08 AM CDT [facility] Blood BLOOD SPECIMEN / Unknown 11/27/2018 5:54 AM CDT 11/27/2018 6:08 AM CDT Narrative [facility] - 11/27/2018 6:08 AM CDT (2) Provider Notified Gely Medina MD LAB - POINT OF CARE ORDERABLES Performing Organization Address [facility]/State/[facility] Co de Phone Number [facility] [address] [place] [address] * (ABNORMAL) GLUCOSE - POINT OF CARE (11/26/2018 11:03 PM CDT) Glucose WB/POC 185(H) 70 - 106 mg/dL 11/26/2018 11:39 PM CDT [facility] Specimen Type Arterial/C apillary 11/26/2018 11:39 PM CDT [facility] Blood BLOOD SPECIMEN / Unknown 11/26/2018 11:03 PM CDT 11/26/2018 11:39 PM CDT Narrative [facility] - 11/26/2018 11:39 PM CDT (2) Provider Notified Gely Medina MD LAB - POINT OF CARE ORDERABLES Performing Organization Address [facility]/ZIP Co de Phone Number [facility] [address] [place] [phone] * (ABNORMAL) GLUCOSE - POINT OF CARE (11/26/2018 9:56 PM CDT) Glucose WB/POC 205(H) 70 - 106 mg/dL 11/26/2018 10:04 PM CDT [facility] Specimen Type Arterial/C apillary 11/26/2018 10:04 PM CDT [facility] Blood BLOOD SPECIMEN / Unknown 11/26/2018 9:56 PM CDT 11/26/2018 10:04 PM CDT Narrative [facility] - 11/26/2018 10:04 PM CDT (2) Provider Notified Gely Medina MD LAB - POINT OF CARE ORDERABLES Performing Organization Address [facility] Co de Phone Number [facility] [address] [place] [phone] * (ABNORMAL) GLUCOSE - POINT OF CARE (11/26/2018 3:04 PM CDT) Glucose WB/POC 116(H) 70 - 106 mg/dL 11/26/2018 3:12 PM CDT [facility] Specimen Type Arterial/C apillary 11/26/2018 3:12 PM CDT [facility] Blood BLOOD SPECIMEN / Unknown 11/26/2018 3:04 PM CDT 11/26/2018 3:12 PM CDT Gely Medina MD LAB - POINT OF CARE ORDERABLES Performing Organization Address [facility]/ZIP Co de Phone Number [facility] [address] [place] [address] * (ABNORMAL) GLUCOSE - POINT OF CARE (11/26/2018 10:27 AM CDT) Glucose WB/POC 152(H) 70 - 106 mg/dL 11/26/2018 10:35 AM CDT [facility] Specimen Type Arterial/C apillary 11/26/2018 10:35 AM CDT [facility] Blood BLOOD SPECIMEN / Unknown 11/26/2018 10:27 AM CDT 11/26/2018 10:35 AM CDT Gely Medina MD LAB - POINT OF CARE ORDERABLES Performing Organization Address City/[facility]/ZIP Co de Phone Number [facility] [address] [place] [address] * (ABNORMAL) GLUCOSE - POINT OF CARE (11/26/2018 5:11 AM CDT) Glucose WB/POC 139(H) 70 - 106 mg/dL 11/26/2018 5:40 AM CDT [facility] Specimen Type Arterial/C apillary 11/26/2018 5:40 AM CDT [facility] Blood BLOOD SPECIMEN / Unknown 11/26/2018 5:11 AM CDT 11/26/2018 5:40 AM CDT Gely Medina MD LAB - POINT OF CARE ORDERABLES Performing Organization Address [facility] Co de Phone Number [facility] [address] [place] [address] * (ABNORMAL) GLUCOSE - POINT OF CARE (11/25/2018 8:22 PM CDT) Glucose WB/POC 132(H) 70 - 106 mg/dL 11/25/2018 9:10 PM CDT [facility] Specimen Type Arterial/C apillary 11/25/2018 9:10 PM CDT [facility] Blood BLOOD SPECIMEN / Unknown 11/25/2018 8:22 PM CDT 11/25/2018 9:10 PM CDT Narrative [facility] - 11/25/2018 9:10 PM CDT (3) Treated per Protocol Gely Medina MD LAB - POINT OF CARE ORDERABLES [facility] [address] [place] [address] * (ABNORMAL) GLUCOSE - POINT OF CARE (11/25/2018 7:10 PM CDT) [facility] Glucose WB/POC 203(H) 70 - 106 mg/dL 11/25/2018 7:25 PM CDT [facility] Specimen Type Arterial/C apillary 11/25/2018 7:25 PM CDT [facility] Blood BLOOD SPECIMEN / Unknown 11/25/2018 7:10 PM CDT 11/25/2018 7:25 PM CDT Gely Medina MD LAB - POINT OF CARE ORDERABLES Performing Organization Address City/[facility]/ZIP Co de Phone Number [facility] [address] [place] [phone] * PREPARE (CROSSMATCH) RBC UNIT(S), 2 Units (11/25/2018 4:30 PM CDT) [facility] Product Code [id number] [facility] Unit Donor # [id number] [facility] ABO Donor Type B [facility] Rh Type Unit POS [facility] Unit Status Ret'd [facility] A[facility] Rh Type Unit BPOS [facility] Donor Unit Expiration Date [facility] Blood Type Barcode 7300 [facility] Product Code [id number] [facility] Unit Donor [facility] [id number] S [facility] ABO Donor Type B [facility] Rh Type Unit POS [facility] Unit Status Ret'd [facility] ABO Rh Type Unit BPOS [facility] Donor Unit Expiration Date [facility] Blood Type Barcode 7300 [facility] Blood Bank BLOOD SPECIMEN / Unknown 11/25/2018 4:30 PM CDT Luciana Yañez DO LAB - BLOOD BANK O RDERABLES [facility] [address] [place] [address], [facility] [phone] * CULTURE URINE (11/25/2018 6:42 AM CDT) Culture Urine No growth (<100 CFU/mL) ALESSANDRO 11/26/2018 11:30 AM CDT [facility] Urine URINE SPECIMEN OBTAINED BY CLEAN CATCH PROCEDURE / Unknown Collection / Unknown 11/25/2018 6:42 AM CDT 11/25/2018 6:47 AM CDT Vijaya Ashton MD LAB - MICROBIOLOGY ORDERABLES Performing Organization Address City/[facility] Co de Phone Number [facility] [address] [place] [address], [facility] [phone] * (ABNORMAL) URINE MICROSCOPIC ONLY REFLEX TO CULTURE (11/25/2018 6:42 AM CDT) Reflex Status Culture to follow 11/25/2018 7:06 AM CDT [facility] RBC UA >100(A) None Seen, 0-2, 3-5 # /hpf 11/25/2018 7:06 AM CDT [facility] WBC UA 6-10(A) None Seen, 0-5 # /hpf 11/25/2018 7:06 AM CDT [facility] Bacteria UA None Seen None Seen 11/25/2018 7:06 AM CDT [facility] Squamous Epithelial Cells 6-10(A) None Seen, 0-2, 3-5 /hpf 11/25/2018 7:06 AM CDT [facility] Mucus UA 1+ /LPF 11/25/2018 7:06 AM CDT [facility] Urine URINE SPECIMEN OBTAINED BY CLEAN CATCH PROCEDURE / Unknown Collection / Unknown 11/25/2018 6:42 AM CDT 11/25/2018 6:47 AM CDT Narrative [facility] - 11/25/2018 7:06 AM CDT Vijaya Ashton MD LAB - URINALYSIS OR DERABLES Performing Organization Address City/[facility]/ZIP Co de Phone Number [facility] [address] [place] [address] * (ABNORMAL) URINALYSIS REFLEX MICROSCOPIC REFLEX CULTURE (11/25/2018 6:42 AM CDT) Color UA Yellow Straw, Yellow 11/25/2018 7:01 AM [facility] Clarity UA Slt Cloudy(A) Clear 11/25/2018 7:01 AM CDT [facility] Glucose UA Negative Negative 11/25/2018 7:01 AM T [facility] Bilirubin UA Negative Negative 11/25/2018 7:01 AM T [facility] Ketone UA Negative Negative 11/25/2018 7:01 AM T [facility] Specific [place] UA 1.018 1.005 - 1.030 11/25/2018 7:01 AM [facility] Blood UA 3+(A) Negative 11/25/2018 7:01 AM [facility] pH UA 6.0 5.0 - 8.0 pH 11/25/2018 7:01 AM [facility] Protein UA Negative Negative 11/25/2018 7:01 AM [facility] Urobilinogen UA Negative Negative mg/dL 11/25/2018 7:01 AM [facility] Nitrite UA Negative Negative 11/25/2018 7:01 AM [facility] Leukocyte UA Trace(A) Negative 11/25/2018 7:01 AM [facility] Urine Microscopy Urine microscopy to follow 11/25/2018 7:01 AM [facility] Reflex Status Culture to follow 11/25/2018 7:01 AM [facility] Urine URINE SPECIMEN OBTAINED BY CLEAN CATCH PROCEDURE / Unknown Collection / Unknown 11/25/2018 6:42 AM CDT 11/25/2018 6:47 AM CDT Narrative [facility] - 11/25/2018 7:01 AM CDT Vijaya Ashton MD LAB - URINALYSIS OR DERABLES [facility] [address] [place] [address] * TYPE + SCREEN PANEL (11/25/2018 6:41 AM CDT) ABO B 11/25/2018 7:22 AM CDT [facility] Rh Type Positive 11/25/2018 7:22 AM CDT [facility] Comment:History checked. Antibody Screen Negative 11/25/2018 7:22 AM CDT [facility] Blood Bank BLOOD SPECIMEN / Unknown Venipuncture / Unknown 11/25/2018 6:41 AM CDT 11/25/2018 6:47 AM CDT Vijaya Ashton MD LAB - BLOOD BANK OR DERABLES [facility] [address] [phone] * (ABNORMAL) CBC W AUTO DIFFERENTIAL (11/25/2018 6:41 AM CDT) WBC 12.2(H) 4.4 - 10.7 x10E9/L 11/25/2018 6:51 AM CDT [facility] WBC Corrected x10E9/L 11/25/2018 6:51 AM CDT [facility] RBC 3.94 3.80 - 5.20 x10E12/L 11/25/2018 6:51 AM CDT [facility] Hemoglobin 11.8(L) 12.0 - 15.6 gm/dL 11/25/2018 6:51 AM CDT [facility] Hematocrit 35.6(L) 35.9 - 45.5 % 11/25/2018 6:51 AM CDT [facility] MCV 90.4 80.7 - 98.3 fl 11/25/2018 6:51 AM CDT [facility] MCH 29.9 26.7 - 34.0 pg 11/25/2018 6:51 AM CDT [facility] MCHC 33.1 30.8 - 35.9 gm/dL 11/25/2018 6:51 AM CDT [facility] Platelet Count 227 153 - 416 x10E9/L 11/25/2018 6:51 AM CDT [facility] RDW-CV 13.1 12.1 - 14.9 % 11/25/2018 6:51 AM CDT [facility] MPV 11.1 9.4 - 12.9 fl 11/25/2018 6:51 AM CDT [facility] Neutrophils % 73.7(H) 44.0 - 73.0 % 11/25/2018 6:51 AM CDT [facility] Lymphocytes % 16.7(L) 20.0 - 43.0 % 11/25/2018 6:51 AM CDT [facility] Monocytes % 5.9 5.0 - 13.0 % 11/25/2018 6:51 AM CDT [facility] Eosinophils % 1.2 0.0 - 6.0 % 11/25/2018 6:51 AM CDT [facility] Basophils % 0.3 0.0 - 2.0 % 11/25/2018 6:51 AM CDT [facility] Immature Granulocytes 2.2(H) 0 - 1 % 11/25/2018 6:51 AM CDT [facility] Neutrophil Absolute 8.96(H) 2.01 - 7.14 x10E9/L 11/25/2018 6:51 AM CDT [facility] Lymphocytes Absolute 2.03 1.07 - 3.94 x10E9/L 11/25/2018 6:51 AM CDT [facility] Monocytes Absolute 0.72 0.26 - 1.07 x10E9/L 11/25/2018 6:51 AM CDT [facility] Eosinophils Absolute 0.14 0 - 0.47 x10E9/L 11/25/2018 6:51 AM CDT [facility] Basophils Absolute 0.04 0 - 0.08 x10E9/L 11/25/2018 6:51 AM CDT [facility] Immature Granulocytes Absolute 0.27(H) 0.00 - 0.06 x10E9/L 11/25/2018 6:51 AM CDT [facility] nRBC Auto 0 /100 WBC 11/25/2018 6:51 AM T [facility] Blood BLOOD SPECIMEN / Unknown Venipuncture / Unknown 11/25/2018 6:41 AM CDT 11/25/2018 6:47 AM CDT Vijaya Ashton MD LAB - HEMATOLOGY OR DERABLES [facility] [address] [place] [address] documented in this encounter Visit Diagnoses Diagnosis Vaginal bleeding- Primary Other specified noninflammatory disorder of vagina Vaginal bleeding Other specified noninflammatory disorder of vagina Gestational hypertension, antepartum ([facility]) Chest pain, unspecified type Placenta previa in third trimester ([facility]) Insulin controlled gestational diabetes mellitus (GDM) in third trimester ([facility]) 34 weeks gestation of ([facility]) state, incidental Diagnosis unknown Other unknown and unspecified cause of morbidity or mortality Pre-eclampsia in third trimester ([facility]) Mild or unspecified pre-eclampsia, antepartum Tachypnea Dental caries 35 weeks gestation of ([facility]) state, incidental Vaginal bleeding during ([facility]) Insulin controlled gestational diabetes mellitus (GDM) in third trimester ([facility]) Hypertension in , preeclampsia, delivered ([facility]) Mild or unspecified pre-eclampsia, with delivery Supervision of high risk , antepartum ([facility]) Previous delivery, antepartum condition or complication ([facility]) Previous delivery, antepartum condition or complication Obesity affecting in third trimester ([facility]) Placenta previa with hemorrhage, delivered, current hospitalization ([facility]) Hemorrhage from placenta previa, with delivery Maternal asthma complicating ([facility]) Other current maternal conditions classifiable elsewhere, complicating , childbirth, or the puerperium, unspecified as to episode of care Bilobed placenta ([facility]) Vasa previa ([facility]) Vasa previa complicating labor and delivery, unspecified as to episode of care 34 weeks gestation of ([facility]) state, incidental Previous delivery, antepartum ([facility]) with history of pre-term labor Abnormal O'Cartwright glucose challenge test, antepartum ([facility]) Abnormal maternal glucose tolerance, antepartum Depression Depressive disorder, not elsewhere classified Placenta accreta affecting delivery ([facility]) Delivery by hysterectomy ([facility]) Gestational hypertension, antepartum ([facility]) Placenta previa in third trimester ([facility]) documented in this encounter Administered Medications Inactive Administered Medications - up to 3 most recent administrations Medication Order MAR Action Action Date Dose Rate Site 0.9% NaCl infusion rate and volume at 20 mL/hr, 250 mL, ONCE PRN, 1 dose, Starting on Wed12/21/18 at 1122, Until Wed12/27/18 at 1532, Normal Saline flush bag for blood and blood product administration 0.9% NaCl injection 10 mL 10 mL, Intracatheter, EVERY 8 HOURS, 1095 doses, First dose on Wed12/08/18 at 1415, Last dose on Wed12/08/19 at 0600 $ Given 12/21/2018 4:32 AM CDT 10 mL $ Given 12/20/2018 9:41 PM CDT 10 mL $ Given 12/20/2018 2:49 PM CDT 10 mL 0.9% NaCl injection 3 mL 3 mL, Intracatheter, EVERY 8 HOURS, 1095 doses, First dose on Wed11/25/18 at 0645, Last dose on Wed11/24/19 at 2200, Flush peripheral IV catheter with 3 mL of normal saline every 8 hours. $ Given 12/08/2018 4:30 AM CDT 3 mL $ Given 12/07/2018 9:03 PM CDT 3 mL $ Given 12/07/2018 3:03 PM CDT 3 mL 0.9% NaCl injection 3 mL 3 mL, Intracatheter, EVERY 8 HOURS, 1095 doses, First dose on Wed12/21/18 at 1400, Last dose on Wed12/21/19 at 0600, Flush peripheral IV catheter with 3 mL of normal saline every 8 hours. $ Given 12/22/2018 10:23 PM CDT 3 mL 0.9% NaCl injection 3 mL 3 mL, Intracatheter, EVERY 8 HOURS, 1095 doses, First dose on Wed12/21/18 at 2200, Last dose on Wed12/21/19 at 1400, $ Given 12/23/2018 1:01 PM CDT 3 mL $ Given 12/23/2018 4:08 AM CDT 3 mL $ Given 12/22/2018 3:04 PM CDT 3 mL acetaminophen (TYLENOL) tablet 1,000 mg 1,000 mg, Oral, ONCE, 1 dose, On Wed12/07/18 at 1630 $ Given 12/07/2018 4:21 PM CDT 1,000 mg acetaminophen (TYLENOL) tablet 650 mg 650 mg, Oral, EVERY 6 HOURS PRN, Mild Pain, Starting on Wed11/25/18 at 0636, Until Wed12/08/18 at 1147 $ Given 12/07/2018 11:34 PM CDT 650 mg $ Given 12/06/2018 4:29 PM CDT 650 mg $ Given 11/30/2018 7:35 AM CDT 650 mg acetaminophen (TYLENOL) tablet 650 mg 650 mg, Oral, EVERY 6 HOURS, First dose (after last modification) on Wed12/08/18 at 1200, Until Discontinued $ Given 12/20/2018 9:43 PM CDT 650 mg $ Given 12/20/2018 4:05 PM CDT 650 mg $ Given 12/20/2018 9:29 AM CDT 650 mg acetaminophen (TYLENOL) tablet 650 mg 650 mg, Oral, EVERY 6 HOURS, First dose on Morenita 12/22/18 at 0000, Until Discontinued, $ Given 12/27/2018 1:06 PM CDT 650 mg $ Given 12/27/2018 7:50 AM CDT 650 mg $ Given 12/26/2018 10:57 PM CDT 650 mg amoxicillin (AMOXIL) capsule 500 mg 500 mg, Oral, 3 TIMES DAILY, 21 doses, First dose on 12/18/18 at 2145, Last dose on 12/25/18 at 1400, Indication for anti-infective therapy: Suspected infection, Site of anti-infective therapy: Skin/soft tissue $ Given 12/20/2018 9:42 PM CDT 500 mg $ Given 12/20/2018 2:49 PM CDT 500 mg $ Given 12/20/2018 9:29 AM CDT 500 mg amoxicillin (AMOXIL) tablet 875 mg 875 mg, Oral, EVERY 12 HOURS, 14 doses, First dose on Wed11/25/18 at 2030, Last dose on Wed12/02/18 at 0830, PATIENT SUPPLIED WORKFLOW. Patient's home medication to be stored in lockbox., Drug name: amoxicillin 875mg $ Given 12/02/2018 8:28 AM CDT 875 mg $ Given 12/01/2018 10:30 PM CDT 875 mg $ Given 12/01/2018 10:34 AM CDT 875 mg benzocaine (MAXIMUM STRENGTH ORAJEL) 20 % gel Oral, 3 TIMES DAILY PRN, Mouth Pain, Starting on Morenita 12/08/18 at 0432, Until Morenita 12/08/18 at 1459 $ Given 12/08/2018 7:03 AM CDT betamethasone acet & sod phos (CELESTONE) injection 12 mg 12 mg, Intramuscular, EVERY 24 HOURS, 2 doses, First dose on 11/25/18 at 1545, Last dose on Wed11/26/18 at 1545, Protect from light. $ Given 11/26/2018 4:50 PM CDT 12 mg Left Dorsogluteal $ Given 11/25/2018 4:15 PM CDT 12 mg Ri ght Dorsogluteal bisacodyl (DULCOLAX) suppository 10 mg 10 mg, Rectal, DAILY PRN, Constipation, Starting on Wed12/21/18 at 2107, Until Wed12/27/18 at 1532, Use MOM first. If MOM ineffective then use bisacodyl. If bisacodyl ineffective use Fleets enema. Use rectal if oral is ineffective, or patient is unable to take oral medications., bisacodyl EC (DULCOLAX) tablet 5 mg 5 mg, Oral, DAILY PRN, Constipation, Starting on Wed12/21/18 at 2107, Until Wed12/27/18 at 1532, Use MOM first. If MOM ineffective then use bisacodyl. If bisacodyl ineffective use Fleets enema., ilcbpsinuy-nioupanrqzzkd-tftyifps (FIORICET) 50-325-40 MG tablet 1 tablet 1 tablet, Oral, EVERY 4 HOURS PRN, Headache, Starting on Wed12/07/18 at 1723, Until Wed12/21/18 at 2107, Do not exceed 6 tablets in 24 hours $ Given 12/07/2018 5:53 PM CDT 1 tablet cephalexin (KEFLEX) capsule 500 mg 500 mg, Oral, EVERY 6 HOURS, 28 doses, First dose on 12/24/18 at 1415, Last dose on 12/31/18 at 0600, Indication for anti-infective therapy: Documented infection, Site of anti-infective therapy: Wound $ Given 12/27/2018 1:06 PM CDT 500 mg $ Given 12/27/2018 7:50 AM CDT 500 mg $ Given 12/26/2018 10:57 PM CDT 500 mg chlorhexidine (PERIDEX) 0.12 % oral solution Swish and Spit, 2 TIMES DAILY, 730 doses, First dose on Morenita 12/08/18 at 1230, Last dose on Morenita 12/07/19 at 2100, 15 mL oral rinse. Swish for 30 seconds and spit. Do not rinse, brush, or eat immediately after use. . WASTE DISPOSAL INSTRUCTIONS: Black Bin Disposal required. $ Given 12/20/2018 9:42 PM CDT 15 mL $ Given 12/20/2018 9:33 AM CDT 15 mL $ Given 12/19/2018 9:10 PM CDT 15 mL cyclobenzaprine (FLEXERIL) tablet 5 mg 5 mg, Oral, ONCE, 1 dose, On 11/26/18 at 1215 $ Given 11/26/2018 12:07 PM CDT 5 mg cyclobenzaprine (FLEXERIL) tablet 5 mg 5 mg, Oral, ONCE, 1 dose, On Wed11/27/18 at 2245 $ Given 11/27/2018 10:41 PM CDT 5 mg dextrose 5% and lactated ringers solution at 125 mL/hr, Intravenous, CONTINUOUS, Starting on Wed12/21/18 at 1730, Until Wed12/23/18 at 0703, May discontinue IV when taking PO and afebrile., Rate Change 12/22/2018 8:34 AM CDT 50 mL/hr Current Rate 12/22/2018 7:13 AM CDT 75 mL/hr Restarted 12/22/2018 7:11 AM CDT 75 mL/hr diphenhydrAMINE (BENADRYL) capsule 25 mg 25 mg, Oral, AT BEDTIME, First dose on Wed12/02/18 at 2200, Until Discontinued $ Given 12/19/2018 9:09 PM CDT 25 mg $ Given 12/18/2018 9:30 PM CDT 25 mg $ Given 12/17/2018 8:44 PM CDT 25 mg diphenhydrAMINE (BENADRYL) capsule 25 mg 25 mg, Oral, AT BEDTIME PRN, Insomnia, Starting on Wed12/21/18 at 2107, Until Wed12/27/18 at 1532, $ Given 12/21/2018 11:38 PM CDT 25 mg diphenhydrAMINE (BENADRYL) capsule 50 mg 50 mg, Oral, ONCE, 1 dose, On Wed12/20/18 at 2145 $ Given 12/20/2018 9:43 PM CDT 50 mg docusate sodium (COLACE) capsule 100 mg 100 mg, Oral, 2 TIMES DAILY, 730 doses, First dose on Wed11/25/18 at 0900, Last dose on Wed11/24/19 at 2100 $ Given 12/13/2018 8:56 AM CDT 100 mg $ Given 12/12/2018 12:03 PM CDT 100 mg $ Given 12/11/2018 11:08 AM CDT 100 mg docusate sodium (COLACE) capsule 100 mg 100 mg, Oral, 2 TIMES DAILY, First dose on Wed12/23/18 at 0900, Until Discontinued $ Given 12/27/2018 7:50 AM CDT 100 mg $ Given 12/26/2018 10:54 PM CDT 100 mg $ Given 12/26/2018 1:03 PM CDT 100 mg famotidine (PEPCID) tablet 20 mg 20 mg, Oral, DAILY, 365 doses, First dose on Wed12/23/18 at 0900, Last dose on Wed12/22/19 at 0900 $ Given 12/27/2018 7:51 AM CDT 20 mg $ Given 12/25/2018 8:08 AM CDT 20 mg hydrocortisone (HYTONE) 1 % ointment Topical, 4 TIMES DAILY, 1460 doses, First dose on Wed12/09/18 at 2100, Last dose on Wed12/09/19 at 1700, Apply to hands $ Given 12/09/2018 9:36 PM CDT HYDROmorphone (DILAUDID) 0.2 mg/ml PHOTOGRAPHIC EQUIPMENT MECHANIC PHOTOGRAPHIC EQUIPMENT MECHANIC Dose: 0.2 mg, PHOTOGRAPHIC EQUIPMENT MECHANIC Lockout Interval: 12 Minutes, One Hour Limit\Max Limit: 1 mg, Clinician Bolus (Load): Not Ordered, Intravenous, [employer]QUIPMENT MECHANIC, Starting on Wed12/21/18 at 1500, Until Wed12/22/18 at 1213, $ New Bag/Syringe 12/21/2018 3:28 PM CDT HYDROmorphone (DILAUDID) injection 0.4 mg 0.4 mg, Intravenous, EVERY 4 HOURS PRN, Severe Pain, Starting on Wed12/22/18 at 1215, Until Wed12/27/18 at 1532 ibuprofen (MOTRIN) tablet 600 mg 600 mg, Oral, EVERY 6 HOURS, First dose on Wed12/23/18 at 0400, Until Discontinued, Maximum allowable amount = 3200 mg / 24 hours. $ Given 12/27/2018 11:15 AM CDT 600 mg $ Given 12/27/2018 3:47 AM CDT 600 mg $ Given 12/26/2018 10:54 PM CDT 600 mg insulin aspart (NovoLOG) pen 4 Units 4 Units, Subcutaneous, DAILY WITH BREAKFAST, 365 doses, First dose on Wed12/14/18 at 1545, Last dose on Wed12/13/19 at 0800, Administer 4 units 15 minutes prior to breakfast. $ Given 12/20/2018 11:18 AM CDT 4 Units Abdominal Tissue $ Given 12/19/2018 10:50 AM CDT 4 Units A bdominal Tissue $ Given 12/18/2018 7:12 AM CDT 4 Units Ab dominal Tissue insulin detemir (LEVEMIR) pen 18 Units 18 Units (rounded from 18.34 Units = 0.2 Units/kg ? 91.7 kg), Subcutaneous, AT BEDTIME, First dose (after last modification) on Wed11/28/18 at 2100, Until Discontinued, ............. DO NOT HOLD even if patient is NPO Consider calling physician for dose reduction if patient is made NPO. Body mass index is 39.49 kg/(m^2). . WASTE DISPOSAL INSTRUCTIONS: Black Bin Disposal required. $ Given 11/29/2018 8:56 PM CDT 18 Units Abdominal Tissue $ Given 11/28/2018 9:19 PM CDT 18 Units Ab d Left Lower Quadrant insulin detemir (LEVEMIR) pen 24 Units 24 Units, Subcutaneous, AT BEDTIME, First dose (after last modification) on Wed11/30/18 at 2100, Until Discontinued, ............. DO NOT HOLD even if patient is NPO Consider calling physician for dose reduction if patient is made NPO. Body mass index is 39.49 kg/(m^2). . WASTE DISPOSAL INSTRUCTIONS: Black Bin Disposal required. $ Given 11/30/2018 9:01 PM CDT 24 Units Abdominal Tissue insulin detemir (LEVEMIR) pen 28 Units 28 Units, Subcutaneous, AT BEDTIME, First dose (after last modification) on Wed12/01/18 at 2100, Until Discontinued, ............. DO NOT HOLD even if patient is NPO Consider calling physician for dose reduction if patient is made NPO. Body mass index is 39.49 kg/(m^2). . WASTE DISPOSAL INSTRUCTIONS: Black Bin Disposal required. $ Given 12/03/2018 8:30 PM CDT 28 Units Abd Left Lower Quadr ant $ Given 12/02/2018 9:07 PM CDT 28 Units Ab dominal Tissue $ Given 12/01/2018 8:59 PM CDT 28 Units Ab dominal Tissue insulin detemir (LEVEMIR) pen 32 Units 32 Units, Subcutaneous, AT BEDTIME, First dose (after last modification) on Wed12/04/18 at 2100, Until Discontinued, ............. DO NOT HOLD even if patient is NPO Consider calling physician for dose reduction if patient is made NPO. Body mass index is 39.49 kg/(m^2). . WASTE DISPOSAL INSTRUCTIONS: Black Bin Disposal required. $ Given 12/10/2018 9:04 PM CDT 32 Units Abdominal Tissue $ Given 12/09/2018 9:30 PM CDT 32 Units Ab dominal Tissue $ Given 12/08/2018 9:31 PM CDT 32 Units Ab d Right Upper Quadrant insulin detemir (LEVEMIR) pen 36 Units 36 Units, Subcutaneous, AT BEDTIME, First dose (after last modification) on Wed12/11/18 at 2100, Until Discontinued, ............. DO NOT HOLD even if patient is NPO Consider calling physician for dose reduction if patient is made NPO. Body mass index is 39.49 kg/(m^2). . WASTE DISPOSAL INSTRUCTIONS: Black Bin Disposal required. $ Given 12/19/2018 9:10 PM CDT 36 Units Abd Left Lower Quadr ant $ Given 12/18/2018 9:33 PM CDT 36 Units Ab dominal Tissue $ Given 12/17/2018 8:46 PM CDT 36 Units Ab d Right Lower Quadrant iron polysaccharides (NIFEREX 150) capsule 150 mg 150 mg, Oral, DAILY, 365 doses, First dose on Wed11/25/18 at 0900, Last dose on Wed11/24/19 at 0900 $ Given 12/20/2018 9:29 AM CDT 150 mg $ Given 12/19/2018 9:11 AM CDT 150 mg $ Given 12/18/2018 8:57 AM CDT 150 mg iron polysaccharides (NIFEREX 150) capsule 150 mg 150 mg, Oral, DAILY, 365 doses, First dose on [place] 12/22/18 at 0900, Last dose on Wed12/21/19 at 0900, $ Given 12/24/2018 8:28 AM CDT 150 mg $ Given 12/23/2018 10:42 AM CDT 150 mg $ Given 12/22/2018 10:09 AM CDT 150 mg ketorolac (TORADOL) injection 30 mg 30 mg, Intravenous, EVERY 6 HOURS, 4 doses, First dose on Wed12/21/18 at 1200, Last dose on Wed12/22/18 at 0600, For pain and discomfort. $ Given 12/21/2018 7:58 PM CDT 30 mg ketorolac (TORADOL) injection 30 mg 30 mg, Intravenous, EVERY 6 HOURS, First dose on Wed12/22/18 at 0215, Until Discontinued $ Given 12/22/2018 10:09 AM CDT 30 mg $ Given 12/22/2018 2:47 AM CDT 30 mg ketorolac (TORADOL) injection 30 mg 30 mg, Intravenous, EVERY 6 HOURS, 2 doses, First dose (after last modification) on Wed12/22/18 at 1600, Last dose on Wed12/22/18 at 2200 $ Given 12/22/2018 10:22 PM CDT 30 mg $ Given 12/22/2018 4:26 PM CDT 30 mg labetalol (NORMODYNE; TRANDATE) injection 20 mg 20 mg, Intravenous, ONCE PRN, Hypertension, Starting on Wed12/21/18 at 1543, Until Wed12/21/18 at 1942, Initial Dose If systolic BP greater than or equal to 160 mmHg or diastolic BP greater than or equal to 110 mmHg for 15 minutes or more, administer labetalol 20 mg IV over 2 minutes. Repeat BP in 10 minutes. If BP remains elevated, see order for second labetalol dose. $ Given 12/21/2018 3:55 PM CDT 20 mg labetalol (NORMODYNE; TRANDATE) injection 40 mg 40 mg, Intravenous, ONCE PRN, Hypertension, Starting on Wed12/21/18 at 1543, Until Wed12/21/18 at 1942, Second Dose If systolic BP greater than or equal to 160 mmHg or diastolic BP greater than or equal to 110 mmHg for 10 minutes after initial labetalol dose, administer labetalol 40 mg IV over 2 minutes. Repeat BP in 10 minutes. If BP remains elevated, see order for third labetalol dose. $ Given 12/21/2018 4:25 PM CDT 40 mg labetalol (NORMODYNE; TRANDATE) tablet 100 mg 100 mg, Oral, ONCE, 1 dose, On Wed12/25/18 at 1130 $ Given 12/25/2018 11:53 AM CDT 100 mg labetalol (NORMODYNE; TRANDATE) tablet 200 mg 200 mg, Oral, EVERY 12 HOURS, First dose on Wed12/21/18 at 1700, Until Discontinued $ Given 12/24/2018 8:28 A M CDT 200 mg $ Given 12/23/2018 9:47 PM CDT 200 mg $ Given 12/23/2018 10:42 AM CDT 200 mg labetalol (NORMODYNE; TRANDATE) tablet 300 mg 300 mg, Oral, EVERY 12 HOURS, First dose (after last modification) on Wed12/24/18 at 2100, Until Discontinued $ Given 12/25/2018 8:08 AM CDT 300 mg $ Given 12/24/2018 8:39 PM CDT 300 mg labetalol (NORMODYNE; TRANDATE) tablet 400 mg 400 mg, Oral, EVERY 12 HOURS, First dose (after last modification) on Wed12/25/18 at 2000, Until Discontinued $ Given 12/26/2018 8:46 AM CDT 400 mg $ Given 12/25/2018 8:01 PM CDT 400 mg labetalol (NORMODYNE; TRANDATE) tablet 600 mg 600 mg, Oral, EVERY 12 HOURS, First dose (after last modification) on Wed12/26/18 at 2100, Until Discontinued $ Given 12/26/2018 10:54 PM CDT 600 mg labetalol (NORMODYNE; TRANDATE) tablet 800 mg 800 mg, Oral, EVERY 12 HOURS, First dose (after last modification) on Wed12/27/18 at 0900, Until Discontinued $ Given 12/27/2018 8:36 AM CDT 800 mg lactated ringers 1,500 mL infusion 1,500 mL, at 2,903.23 mL/hr, Administer over 31 Minutes, BOLUS IV, 1 dose, On Wed12/21/18 at 1000 $ New Bag/Syringe 12/21/2018 9:30 AM CDT 1,500 mL 2903.23 mL/hr lactated ringers infusion at 125 mL/hr, Intravenous, CONTINUOUS, Starting on Wed11/26/18 at 1230, Until Wed11/27/18 at 0913 $ New Bag/Syringe 11/27/2018 2:21 AM CDT 125 mL/hr $ New Bag/Syringe 11/26/2018 6:44 PM CDT 125 mL /hr $ New Bag/Syringe 11/26/2018 12:06 PM CDT 125 m L/hr lactated ringers infusion at 125 mL/hr, Intravenous, CONTINUOUS, Starting on Wed12/08/18 at 0815, Until Wed12/08/18 at 0955 $ New Bag/Syringe 12/08/2018 7:52 AM CDT 125 mL/hr lactated ringers infusion at 50 mL/hr, Intravenous, PRE-OP CONTINUOUS, Starting on Wed12/21/18 at 1000, Until Wed12/23/18 at 0407, Start IV with 18 gauge angiocath., Pre-op Current Rate 12/22/2018 10:24 AM CDT 50 mL/hr $ New Bag/Syringe 12/22/2018 10:24 AM CDT 50 mL /hr Rate Change 12/22/2018 9:50 AM CDT 50 mL/hr 50 mL/hr lanolin ointment Topical, PRN, Sore or cracked nipples., Starting on Wed12/21/18 at 2107, Until Wed12/27/18 at 1532, Apply purified Lanolin to sore or cracked nipples, if needed. May keep at bedside., $ Given 12/25/2018 12:49 AM CDT magnesium hydroxide (MILK OF MAGNESIA) suspension 30 mL 30 mL, Oral, DAILY PRN, Constipation, Starting on Wed12/21/18 at 2107, Until Wed12/27/18 at 1532, Use MOM first. If MOM ineffective then use bisacodyl. If bisacodyl ineffective use Fleets enema. Shake well before using., magnesium sulfate 20 g in 500 mL infusion 2 g/hr (50 mL/hr), Intravenous, CONTINUOUS, Starting on Wed12/21/18 at 1645, Until Wed12/22/18 at 1214 Current Rate 12/22/2018 7:13 AM CDT 2 g/hr 50 mL/hr Restarted 12/22/2018 2:55 AM CDT 2 g/hr 50 mL/hr $ New Bag/Syringe 12/22/2018 1:50 AM CDT 2 g/hr 50 mL/ hr magnesium sulfate bolus from infusion bag 4 g 4 g, Intravenous, BOLUS FROM BAG ONCE, 1 dose, On Wed12/21/18 at 1615, Maximum rate 2gm/10 minutes. Monitor BP, Pulse, and Respirations every 5 minutes, and assess for the following side effects: - BIOLOGICAL ENGINEER Depression - Chest Pain - Palpitations - Flushing - Nausea - Vomiting - Headache - Blurred Vision - Respiratory Depression -Pulmonary Edema Bolus From Bag 12/21/2018 4:38 PM CDT 4 g ondansetron (ZOFRAN) injection 4 mg 4 mg, Intravenous, EVERY 6 HOURS PRN, Nausea/Vomiting, Starting on Wed11/25/18 at 0636, Until Wed12/21/18 at 2107, Start with ondansetron. If ondansetron ineffective use metoclopramide. If metoclopramide ineffective use prochlorperazine. $ Given 12/11/2018 9:12 AM CDT 4 mg oxyCODONE (immediate release) (ROXICODONE) tablet 10 mg 10 mg, Oral, EVERY 4 HOURS PRN, Severe Pain, Starting on Wed12/21/18 at 2107, Until Wed12/27/18 at 1532, $ Given 12/26/2018 12:41 AM CDT 10 mg $ Given 12/25/2018 7:52 PM CDT 10 mg $ Given 12/25/2018 3:24 PM CDT 10 mg oxyCODONE (immediate release) (ROXICODONE) tablet 5 mg 5 mg, Oral, EVERY 4 HOURS PRN, Moderate Pain, Starting on Wed12/21/18 at 2107, Until Wed12/27/18 at 1532, $ Given 12/27/2018 7:50 AM CDT 5 mg $ Given 12/27/2018 3:47 AM CDT 5 mg $ Given 12/26/2018 4:20 PM CDT 5 mg oxyCODONE-acetaminophen (PERCOCET) 10-325 MG tablet 1 tablet 1 tablet, Oral, EVERY 4 HOURS PRN, Severe Pain, Starting on Wed12/22/18 at 1215, Until Wed12/27/18 at 1532 $ Given 12/22/2018 3:04 PM CDT 1 tablet oxyCODONE-acetaminophen (PERCOCET) 5-325 MG tablet 1 tablet 1 tablet, Oral, EVERY 4 HOURS PRN, Moderate Pain, Starting on Wed12/22/18 at 1214, Until Wed12/27/18 at 1532 vitamin with iron tablet 1 tablet 1 tablet, Oral, DAILY, 365 doses, First dose on Wed11/25/18 at 0900, Last dose on Wed11/24/19 at 0900 $ Given 12/20/2018 9:29 AM CDT 1 tablet $ Given 12/19/2018 9:11 AM CDT 1 tablet $ Given 12/18/2018 8:57 AM CDT 1 tablet vitamin with iron tablet 1 tablet 1 tablet, Oral, DAILY, 365 doses, First dose on Wed12/22/18 at 0900, Last dose on Wed12/21/19 at 0900, $ Given 12/24/2018 8:27 AM CDT 1 tablet $ Given 12/23/2018 10:42 AM CDT 1 tablet $ Given 12/22/2018 10:09 AM CDT 1 tablet simethicone (MYLICON) chew tablet 160 mg 160 mg, Oral, QID PRN (after meals and at bedtime), Gas Pain, Starting on Wed12/21/18 at 2107, Until Wed12/27/18 at 1532, $ Given 12/24/2018 12:43 PM CDT 160 mg $ Given 12/22/2018 10:22 PM CDT 160 mg $ Given 12/22/2018 4:35 PM CDT 160 mg sodium citrate-citric acid 500-334 mg/5 mL oral solution 30 mL, Oral, PRE-OP ONCE, 1 dose, On Wed12/21/18 at 1000, 10 minutes prior to transfer to OR or at the time decision is made for section. SHAKE WELL BEFORE USING, Pre-op $ Given 12/21/2018 10:08 AM CDT 30 mL sodium phosphate rectal (FLEET SALINE) enema 133 mL 133 mL (1 enema), Rectal, DAILY PRN, Constipation, Starting on Wed12/21/18 at 2107, Until Wed12/27/18 at 1532, Use MOM first. If MOM ineffective then use bisacodyl. If bisacodyl ineffective use Fleets enema., triamcinolone acetonide (KENALOG) 0.1 % cream Topical, 3 TIMES DAILY, 1095 doses, First dose on Wed12/13/18 at 1400, Last dose on Wed12/13/19 at 0900, Apply to rash $ Given 12/17/2018 11:11 AM CDT $ Patient/Family Admin 12/16/2018 9:10 PM CDT $ Given 12/16/2018 2:00 PM CDT triamcinolone acetonide (KENALOG) 0.5 % cream Topical, 3 TIMES DAILY, 1095 doses, First dose on 12/17/18 at 1545, Last dose on Wed12/17/19 at 0900, Apply to affected area $ Given 12/20/2018 9:42 PM CDT $ Given 12/20/2018 2:49 PM CDT Ab dominal Tissue $ Given 12/19/2018 9:10 PM CDT documented in this encounter Active and Recently Administered Medications Times are shown in CDT. Scheduled Medication Order 12/25/2018 12/26/2018 12/27/2018 acetaminophen (TYLENOL) tablet 650 mg 650 mg, Oral, EVERY 6 HOURS, First dose on [place] 12/22/18 at 0000, Until Discontinued, 0027 (Not Administered - Provider: Kathryn Manning RN - Reason: Refused-Patient)0549 (Not Administered - Provider: Kathryn Manning RN - Reason: Refused-Patient)1100 (Not Administered - Provider: Deann Hayes RN - Reason: Refused-Patient)1800 (Not Administered - Provider: Deann Hayes RN - Reason: Refused-Patient)2350 (Not Administered - Provider: Viri Macario RN - Reason: Refused-Patient) 0523 (Not Administered - Provider: Viri Macario RN - Reason: Refused-Patient)1244 ($ Given - Provider: Georgette Bernabe, RN)1744 ($ Given - Provider: Irene Dumont, RN)2257 ($ Given - Provider: Jonathan Merchant, FLEX) 0750 ($ Given - Provider: Pat Rahman, FLEX)1306 ($ Given - Provider: Pat Rahman, FLEX) cephalexin (KEFLEX) capsule 500 mg 500 mg, Oral, EVERY 6 HOURS, 28 doses, First dose on 12/24/18 at 1415, Last dose on Wed12/31/18 at 0600, Indication for anti-infective therapy: Documented infection, Site of anti-infective therapy: Wound 0549 ($ Given - Provider: Kathryn Manning, RN)1158 ($ Given - Provider: Deann Hayes RN)1837 ($ Given - Provider: Deann Hayes RN) 0041 ($ Given - Provider: Viri Macario, FLEX)0552 ($ Given - Provider: Viri Macario, RN)1244 ($ Given - Provider: Georgette Bernabe RN)1744 ($ Given - Provider: Irene Dumont RN)2257 ($ Given - Provider: Jonathan Merchant RN) 0750 ($ Given - Provider: Pat Rahman, FLEX)1306 ($ Given - Provider: Pat Rahman RN) docusate sodium (COLACE) capsule 100 mg 100 mg, Oral, 2 TIMES DAILY, First dose on Wed12/23/18 at 0900, Until Discontinued 0808 ($ Given - Provider: Deann Hayes RN)1953 (Not Administered - Provider: Viri Macario RN - Reason: Refused-Patient) 1303 ($ Given - Provider: Georgette Bernabe RN)2254 ($ Given - Provider: Jonathan Merchant RN) 0750 ($ Given - Provider: Pat Rahman RN) famotidine (PEPCID) tablet 20 mg 20 mg, Oral, DAILY, 365 doses, First dose on Wed12/23/18 at 0900, Last dose on Wed12/22/19 at 0900 0808 ($ Given - Provider: Deann Hayes RN) 0840 (Not Administered - Provider: Georgette Bernabe RN - Reason: Refused-Patient) 0751 ($ Given - Provider: Pat Rahman RN) ibuprofen (MOTRIN) tablet 600 mg 600 mg, Oral, EVERY 6 HOURS, First dose on Wed12/23/18 at 0400, Until Discontinued, Maximum allowable amount = 3200 mg / 24 hours. 0440 ($ Given - Provider: Kathryn Manning RN)1100 ($ Given - Provider: Deann Hayes RN)1530 ($ Given - Provider: Deann Hayes RN)2248 ($ Given - Provider: Viri Macario RN) 0400 (Not Administered - Provider: Viri Macario RN - Reason: Refused-Patient)0840 ($ Given - Provider: Georgette Bernabe RN)1620 ($ Given - Provider: Irene Dumont RN)2254 ($ Given - Provider: Jonathan Merchant, RN) 0347 ($ Given - Provider: Jonathan Merchant, RN)1115 ($ Given - Provider: Pat Rahman RN) iron polysaccharides (NIFEREX 150) capsule 150 mg 150 mg, Oral, DAILY, 365 doses, First dose on [place] 12/22/18 at 0900, Last dose on [place] 12/21/19 at 0900, 0809 (Not Administered - Provider: Deann Hayes RN - Reason: Refused-Patient) 1303 (Not Administered - Provider: Georgette Bernabe RN - Reason: Refused-Patient) 0837 (Not Administered - Provider: Pat Rahman RN - Reason: Refused-Patient) labetalol (NORMODYNE; TRANDATE) tablet 100 mg (COMPLETED) 100 mg, Oral, ONCE, 1 dose, On 12/25/18 at 1130 1153 ($ Given - Provider: Deann Hayes RN) labetalol (NORMODYNE; TRANDATE) tablet 300 mg (CANCELED) 300 mg, Oral, EVERY 12 HOURS, First dose (after last modification) on 12/24/18 at 2100, Until Discontinued 08 ($ Given - Provider: Deann Hayes RN) labetalol (NORMODYNE; TRANDATE) tablet 400 mg 400 mg, Oral, EVERY 12 HOURS, First dose (after last modification) on 12/25/18 at 2000, Until Discontinued 2000 ($ Given - Provider: Viri Macario RN) 0846 ($ Given - Provider: Georgette Bernabe RN) labetalol (NORMODYNE; TRANDATE) tablet 600 mg (CANCELED) 600 mg, Oral, EVERY 12 HOURS, First dose (after last modification) on 12/26/18 at 2100, Until Discontinued 225 ($ Given - Provider: Jonathan Merchant, FLEX) labetalol (NORMODYNE; TRANDATE) tablet 800 mg 800 mg, Oral, EVERY 12 HOURS, First dose (after last modification) on Wed12/27/18 at 0900, Until Discontinued 0836 ($ Given - Provider: Pat Rahman RN) vitamin with iron tablet 1 tablet 1 tablet, Oral, DAILY, 365 doses, First dose on [place] 12/22/18 at 0900, Last dose on Wed12/21/19 at 0900, 0809 (Not Administered - Provider: Deann Hayes RN - Reason: Refused-Patient) 1304 (Not Administered - Provider: Georgette Bernabe RN - Reason: Refused-Patient) 0837 (Not Administered - Provider: Pat Rahman RN - Reason: Refused-Patient) PRN Medication Order 12/25/2018 12/26/2018 12/27/2018 0.9% NaCl infusion rate and volume at 20 mL/hr, 250 mL, ONCE PRN, 1 dose, Starting on Wed12/21/18 at 1122, Until Wed12/27/18 at 1532, Normal Saline flush bag for blood and blood product administration benzocaine-menthol (DERMOPLAST) spray Topical, PRN, Mild Pain, Starting on Wed12/21/18 at 2107, Until Wed12/27/18 at 1532, Apply to affected area. . WASTE DISPOSAL INSTRUCTION: Send to Pharmacy for Disposal. . , bisacodyl (DULCOLAX) suppository 10 mg(Linked Group 1) 10 mg, Rectal, DAILY PRN, Constipation, Starting on Wed12/21/18 at 2107, Until Wed12/27/18 at 1532, Use MOM first. If MOM ineffective then use bisacodyl. If bisacodyl ineffective use Fleets enema. Use rectal if oral is ineffective, or patient is unable to take oral medications., bisacodyl EC (DULCOLAX) tablet 5 mg(Linked Group 1) 5 mg, Oral, DAILY PRN, Constipation, Starting on Wed12/21/18 at 2107, Until Wed12/27/18 at 1532, Use MOM first. If MOM ineffective then use bisacodyl. If bisacodyl ineffective use Fleets enema., calcium carbonate (TUMS) chew tablet 2 tablet 2 tablet, Oral, EVERY 4 HOURS PRN, GI Upset, Starting on Wed12/21/18 at 2107, Until Wed12/27/18 at 1532, diphenhydrAMINE (BENADRYL) capsule 25 mg 25 mg, Oral, AT BEDTIME PRN, Insomnia, Starting on Wed12/21/18 at 2107, Until Wed12/27/18 at 1532, hemorrhoidal (PREPARATION H) ointment OINT Rectal, 3 TIMES DAILY PRN, Hemorrhoids, Starting on Wed12/21/18 at 2107, Until Wed12/27/18 at 1532, HYDROmorphone (DILAUDID) injection 0.4 mg 0.4 mg, Intravenous, EVERY 4 HOURS PRN, Severe Pain, Starting on Wed12/22/18 at 1215, Until Wed12/27/18 at 1532 lanolin ointment Topical, PRN, Sore or cracked nipples., Starting on Wed12/21/18 at 2107, Until Wed12/27/18 at 1532, Apply purified Lanolin to sore or cracked nipples, if needed. May keep at bedside., 0049 ($ Given - Provider: Kathryn Manning, FLEX) magnesium hydroxide (MILK OF MAGNESIA) suspension 30 mL(Linked Group 1) 30 mL, Oral, DAILY PRN, Constipation, Starting on Wed12/21/18 at 2107, Until Wed12/27/18 at 1532, Use MOM first. If MOM ineffective then use bisacodyl. If bisacodyl ineffective use Fleets enema. Shake well before using., oxyCODONE (immediate release) (ROXICODONE) tablet 10 mg 10 mg, Oral, EVERY 4 HOURS PRN, Severe Pain, Starting on Wed12/21/18 at 2107, Until Wed12/27/18 at 1532, 0439 ($ Given - Provider: Kathryn Manning RN)1524 ($ Given - Provider: Deann Hayes RN)1952 ($ Given - Provider: Viri Macario, FLEX) 0041 ($ Given - Provider: Viri Macario, FLEX) oxyCODONE (immediate release) (ROXICODONE) tablet 5 mg 5 mg, Oral, EVERY 4 HOURS PRN, Moderate Pain, Starting on Wed12/21/18 at 2107, Until Wed12/27/18 at 1532, 0819 ($ Given - Provider: Deann Hayes, RN) 0841 ($ Given - Provider: Georgette Bernabe, FLEX)1620 ($ Given - Provider: Irene Dumont, FLEX) 0347 ($ Given - Provider: Jonathan Merchant, RN)0750 ($ Given - Provider: Pat Rahman RN) oxyCODONE-acetaminophen (PERCOCET) 10-325 MG tablet 1 tablet 1 tablet, Oral, EVERY 4 HOURS PRN, Severe Pain, Starting on [place] 12/22/18 at 1215, Until Wed12/27/18 at 1532 oxyCODONE-acetaminophen (PERCOCET) 5-325 MG tablet 1 tablet 1 tablet, Oral, EVERY 4 HOURS PRN, Moderate Pain, Starting on [place] 12/22/18 at 1214, Until Wed12/27/18 at 1532 simethicone (MYLICON) chew tablet 160 mg 160 mg, Oral, QID PRN (after meals and at bedtime), Gas Pain, Starting on Wed12/21/18 at 2107, Until Wed12/27/18 at 1532, sodium phosphate rectal (FLEET SALINE) enema 133 mL(Linked Group 1) 133 mL (1 enema), Rectal, DAILY PRN, Constipation, Starting on Wed12/21/18 at 2107, Until Wed12/27/18 at 1532, Use MOM first. If MOM ineffective then use bisacodyl. If bisacodyl ineffective use Fleets enema., Linked Groups Order Group 1: magnesium hydroxide (MILK OF MAGNESIA) suspension 30 mLJump to med 30 mL, Oral, DAILY PRN, Constipation, Starting on Wed12/21/18 at 2107, Until Wed12/27/18 at 1532, Use MOM first. If MOM ineffective then use bisacodyl. If bisacodyl ineffective use Fleets enema. Shake well before using., Or bisacodyl EC (DULCOLAX) tablet 5 mgJump to med 5 mg, Oral, DAILY PRN, Constipation, Starting on Wed12/21/18 at 2107, Until Wed12/27/18 at 1532, Use MOM first. If MOM ineffective then use bisacodyl. If bisacodyl ineffective use Fleets enema., Or bisacodyl (DULCOLAX) suppository 10 mgJump to med 10 mg, Rectal, DAILY PRN, Constipation, Starting on Wed12/21/18 at 2107, Until Wed12/27/18 at 1532, Use MOM first. If MOM ineffective then use bisacodyl. If bisacodyl ineffective use Fleets enema. Use rectal if oral is ineffective, or patient is unable to take oral medications., Or sodium phosphate rectal (FLEET SALINE) enema 133 mLJump to med 133 mL (1 enema), Rectal, DAILY PRN, Constipation, Starting on Wed12/21/18 at 2107, Until Wed12/27/18 at 1532, Use MOM first. If MOM ineffective then use bisacodyl. If bisacodyl ineffective use Fleets enema., documented in this encounter Care Teams River Captain Relationship Specialty Start Date End Date Gala Singh MD [address] [place] [id number] PCP - General 08/02/18 documented as of this encounter
--- OUTSIDE RECORDS SUMMARY | 2024-04-27 18:00 | XMS_ITS | Encounter Summary ---
Author Organization [facility] Address [address] [place] [address] Care Team Providers Care Gas Line Installer Supervisor Name Role Phone Gala Singh MD Primary Care Provider [phone] Reason for Visit * Auth/Cert Specialty Diagnoses / Procedures Referred By Contac t Referred To Contact Obstetrics and Gynecology Procedures SECTION (REPEAT) [facility] 5e Ante/Mom Baby [address] [place] [address] Referral ID Status Reason Start Date Expiration Date Visits Re quested Visits Authorized [id number] 11/28/2018 05/27/2019 1 Encounter Details Date Type Department Care Team (Late st Contact Info) Description 12/21/2018 10:37 AM CDT Anesthesia Event [facility] 5 L[address] [place] [address] Tai Tellez MD [address] [facility] [address] Elizabeth Sandoval, YOON-FRONT DESK AGENT [address] [place] [address] Anesthesia Record Procedure Summary Procedure Name Responsible Anesthesiologist Anesthesia Start Time Anesthesia Stop Time SECTION (Abdomen) Tai Tellez MD 12/21/18 1037 12/21/18 1513 Events Date Time Event Comment 12/21/2018 1028 1037 An Start 1037 An Start Data 1046 PT Reassessment 1046 Anes Timeout 1047 Spinal In 1059 Timeout Anesthesia part icipated in timeout at the time documented in the record by nursing. 1101 Incision 1143 An Intubation 1143 Induction 1151 Uterine Incision 1154 Baby Delivered 1247 Quick Note 25mg ketamine w asted in OR with K Byron, FRONT DESK AGENT 1457 Extubation 1502 an stop data 1502 Electnc Sig 1513 An Stop Meds Name Total fentaNYL 100 mcg/2mL injection 100 mcg fentaNYL (PF) (SUBLIMAZE) injection 10 m cg fentaNYL 250 mcg/5mL injection 250 mcg morphine (PF) 0.5 mg/mL injection 5 mg morphine PF 5 mg/ 10 ml injection 0.1 mg bupivacaine (spinal) (SENSORCAINE) 0.75% IT injection 13.5 mg bupivacaine 0.75 % in dextrose (SENSORCA INE) injection 13.5 mg phenylephrine 1000 mcg/10mL injection 40 0 mcg ketorolac 30 mg/ml injection 30 mg ondansetron 4 mg/2mL injection 4 mg ketamine 50 mg/ml injection 25 mg ceFAZolin (ANCEF) 2,000 mg in 50 mL IVPB 4 g lidocaine (XYLOCAINE) 1 % injection 1.5 mL propofol 200mg/20mL injection 150 mg succinylcholine 20 mg/mL injection 100 m g oxytocin (PITOCIN) infusion - FIXED Dose 1,000 mL morphine 10 mg/ml injection 10 mg lactated ringers infusion 2,200 mL 0.9% NaCl infusion 1,000 mL * Agents Name Insp. N2O Exp. Sevoflurane Exp. N2O O2 Insp. Sevoflurane * Blood Name Total RBC UNIT 300 mL FFP UNIT 350 mL Lines, Drains, and Airways Type Details Placement Removal Peripheral IV Date: 12/13/18; Time : 2199; Orientation: Right; Placed By: Walter Singh RN; Tolerance: Well 12/13/182199 by Parris Pagan RN 12/21/18 1542 by Gabrielle Haines Peripheral IV Date: 12/20/18; Time : 2049; Orientation: Left; Placed By: Walter Singh RN; Length (in): 1.125 ; Tolerance: Well 12/20/182049 by Parris Pagan, FLEX 12/23/18 2238 by Isabela Reyes, RN Urethral Catheter 12/21/18; 1050; B CHAD Haines ; 12/22/18; 1245; Per order; Daniel Peguero RN 12/21/18 1050 by Gabrielle Haines 12/22/18 1245 by Sari Peguero RN Procedural Site (Incision) 12/21/18; 1101; Lower; Abdomen; 12/27/18; 203112/21/18 1101 by Gabrielle Haines 12/27/182031 by Generic, Auto Release ETT Date: 12/21/18; Time : 1143; Placed By: NATE Johnson; Induction: Rapid Sequence, Cricoid pressure; Blade Type: Michelle; Blade Size: 4; Laryngoscopy View: Grade 1 (full cords); Intubation Adjuncts: Stylet, Cricoid Pressure; Tube: Endotracheal Tube; Placement: Oral; Tube Size(mm): 7 MM; Depth of Insertion: 22 CM; Measured From: lips; Attempts: 1; Cuff Infated: Air; Cuff Vol(mL): 5 mL; Verified By: Direct visualization, Bilateral breath sounds, Chest Auscultation, CO2 Monitor 12/21/18 1143 by Elizabeth Sandoval APRN-CRNA 12/21/18 1457 by Elizabeth Sandoval APRN-CRNA Peripheral IV Date: 12/21/18; Time : 1236; Orientation: Right; Placed By: NATE Ruiz; Tolerance: General Anesthesia 12/21/18 1236 by Elizabeth Sandoval APRN-CRNA 12/21/18 1930 by Tara Covington RN documented in this encounter Social History Tobacco Use Types Packs/Day Years [...] No 11/25/2018 documented as of this encounter Progress Notes * Elizabeth Sandoval APRN-CRNA - 12/22/2018 7:41 AM CDT ANESTHESIA POSTOP EVALUATION NOTE Procedure: SECTION (REPEAT) (Abdomen) HYSTERECTOMY TOTAL ABDOMINAL (AL) (N/A Abdomen) Cait Mathews is a 23 year old female Patient Vitals for the past 6 hrs: BP Temp Pulse Resp SpO2 Pain Rating Score #1 12/22/18 0145 125/69 98.2 ??F (36.8 ??C) 87 24 98 % -- 12/22/18 0247 129/74 -- 84 23 94 % 0 12/22/18 0345 124/69 -- 88 18 93 % -- 12/22/18 0500 132/74 98.1 ??F (36.7 ??C) 90 24 95 % -- 12/22/18 0605 134/73 98.3 ??F (36.8 ??C) 98 29 97 % -- 12/22/18 0623 -- -- -- -- -- 8 Anesthesia Type: general * No Diagnosis Codes entered * Mental Status: awake, alert and sufficiently recovered from acute administration of anesthesia to participate in the evaluation Neuro Status: No numbess, tingling or visual disturbances Respiratory Function: natural Cardiac Function: stable Postop Pain: acceptable to the patient Postop Hydration: adequate Postop Nausea: none Assessment: no apparent anesthetic complications, patient tolerated procedure well and no evidence of recall Patient Disposition: Release from Anesthesia Care Non Reportable Improvement Section (otherwise blank): * Elizabeth Sandoval APRN-CRNA - 12/21/2018 10:27 AM CDT Images from the original note were not included. ANESTHESIA PREOPERATIVE EVALUATION NOTE Procedure: SECTION (REPEAT) (Abdomen) NPO status: Since Midnight (12/21/2018 6:16 AM) Vitals: Patient Vitals for the past 6 hrs: BP Temp Pulse Resp SpO2 Pain Rating Score #1 12/21/18 0730 152/97 97.9 ??F (36.6 ??C) 77 18 99 % 0 12/21/18 0430 144/94 98 ??F (36.7 ??C) 72 18 99 % 0 ANESTHESIA PRE-EVALUATION NOTE Physical Exam: Orientation X3 Airway/Mallampati Score: II Mouth Opening Distance: 3 fingerwidths Neck ROM: full TM Distance: > 3 FB Teeth: normal Heart: regular rate rhythm Lungs: normal Abdomen Exam: obese Review of Systems: History of anesthetic complications: No Malignant Hyperthermia: No GERD: No Poor Exercise Tolerance: No Recent Chest Pain: No Shortness of Breath: No AICD/Pacemaker: No Renal Disease: No Diagnostic Tests: Lab(s) reviewed: Yes. ANESTHESIA PLAN ASA Score: 3 NPO Status: No solids since midnight, No solids for 6 hours and No liquids within 2 hours Anesthesia Plan: spinal Planned Postop Destination: OB Anesthetic plan was discussed with: patient Anesthetic Plan discussion was: Consented Use of blood products were discussed with: patient Use of blood product discussion was: Consented The patient's procedural Anesthetic Plan was discussed with the anesthesiologist. BMI, Height, Weight Tobacco History Estimated body mass index is 40.9 kg/m?? as calculated from the following: Height as of this encounter: 1.524 m (5'). Weight as of this encounter: 95 kg (209 lb 6.4 oz). Social History Tobacco Use Smoking Status Current Every Day Smoker ??? Packs/day: 0.25 Smokeless Tobacco Never Used Alcohol History Drug History Social History Substance and Sexual Activity Alcohol Use No Social History Substance and Sexual Activity Drug Use No Outpatient Medications: Inpatient Medications: Outpatient Medications Marked as Taking for the 11/25/18 encounter (Hospital Encounter) Medication Sig Last Dose ??? amoxicillin Take 875 mg by mouth 2 times daily 11/24/2018 at Unknown time ??? vitamin Take 1 tablet by mouth once daily 11/23/2018 at Unknown time Current Facility-Administered Medications Medication Dose Last Dose ??? 0.9% NaCl 10 mL 10 mL at 12/21/18431 ??? acetaminophen 650 mg 650 mg at 12/20/182142 ??? amoxicillin 500 mg 500 mg at 12/20/182141 ??? benzocaine ??? xcfnmkjvlv-dquccknxnkbga-sdgpwtyp 1 tablet 1 tablet at 12/07/18 1753 ??? calcium carbonate 2 tablet ??? ceFAZolin 2 g ??? chlorhexidine 15 mL at 12/20/182 ??? dextrose 25-50 mL ??? diphenhydrAMINE 25 mg 25 mg at 12/19/182108 ??? docusate sodium 100 mg ??? glucagon 1 mg ??? glucose (Diabetic Use) ??? insulin aspart 4 Units 4 Units at 12/20/18 1118 ??? insulin detemir 36 Units 36 Units at 12/19/18 2110 ??? iron polysaccharide 150 mg 150 mg at 12/20/18928 ??? lactated ringers ??? lactated ringers ??? ondansetron 4 mg 4 mg at 12/11/18 0912 Or ??? metoclopramide 10 mg Or ??? prochlorperazine 25 mg ??? oxytocin 100-999 shari-units/min ??? polyethylene glycol 3350 17 g ??? vitamin with iron 1 tablet 1 tablet at 12/20/18928 ??? simethicone 160 mg ??? sod citrate-citric acid ??? triamcinolone acetonide Allergies: No Known Allergies Relevant Problems No relevant active problems Problem List: Patient Active Problem List Diagnosis Date Noted [...] 11/25/2018 Priority: Not Prioritized ??? Placenta previa antepartum in third trimester [...] Supervision of high risk , antepartum 11/09/2013 Medical History: Past Medical History: Diagnosis Date ??? Chlamydia contact, treated ??? Depression ??? Ganglion and cyst of synovium, tendon and bursa 08/01/2018 ??? History of asthma Asthma ??? History of sexually transmitted disease ??? Obesity (BMI 30-39.9) ??? Placenta previa ??? Preeclampsia 2013 and 2018 ??? Tobacco use ??? Vasa previa Surgical History: Past Surgical History: Procedure Laterality Date ??? Section N/A 11/17/2013 N/A; SECTION ??? Tonsillectomy Lab Results: Recent Labs Component Name 12/21/18 0839 WBC 10.5 HGB 11.0* HCT 33.5* PLTCOUNT 193 Recent Labs Component Name 12/21/18 0839 SODIUM 136 POTASSIUM 4.0 CHLORIDE 107 CO2 20* BUN 8 CREATININE 0.44* Recent Labs Component Name 12/21/18 0839 GLUCOSE 96 CALCIUM 8.9 ALT 15 AST 12 documented in this encounter Procedure Notes * Elizabeth Sandoval APRN-CRNA - 12/21/2018 12:35 PM CDTAssociated Order(s): Peripheral IV Placement Peripheral IV Line Placement: Patient Location: OR Procedure: IV start (67825). Procedure Section: Skin Prep: Chloraprep. Orientation: right Location: hand Local Anesthetic Used? No Catheter Gauge: 18 Number of Attempts: 1. Procedure Tolerance: performed while patient under general anesthesia. Staff Section Anesthesia Provider: Irene Obrien APRN-CRNA, Performed the procedure * Elizabeth Sandoval APRN-CRNA - 12/21/2018 11:51 AM CDTAssociated Order(s): ETT Placement Endotracheal Tube Placement: Patient Location: OB. Intubation Event Date/Time: 12/21/2018 11:43 AM Procedure: intubation (33072). Procedure Section: Sedation: under general anesthesia. Indications for Airway Management: anesthesia Procedure pretreatments used? No Induction: cricoid pressure and rapid sequence Patient Position: sniffing Blade Type: Michelle Blade Size: 4 Laryngoscopy View: grade 1 (full cords) Intubation Adjuncts: cricoid pressure and stylet Device: endotracheal tube Placement: oral Tube type: endotracheal tube Tube Size (MM): 7 Depth of Insertion (CM): 22 Measured From: lips Cuff volume (mL): 5 Cuff Inflated With: air Number of Attempts: 1. Placement Verified By: direct visualization, bilateral breath sounds, chest auscultation and CO2 monitor Tube secured with: adhesive tape. Difficult Airway? No. Procedure Start Time: 12/21/2018 11:43 AM. Staff Section Anesthesia Provider: Elizabeth Sandoval APRN-CRNA, Performed the procedure Provider #1: Tai Tellez MD. * Elizabeth Sandoval APRN-CRNA - 12/21/2018 10:54 AM CDTAssociated Order(s): Neuraxial Block Neuraxial Block Note Procedure Name: Neuraxial Block Patient Location: OB Pre-Procedure: Indications: at patient's request and labor analgesia Pre-Anesthetic Checklist: Patient identified, IV Checked, Risks and benefits discussed, Surgical consent verified, Monitors and equipment, Site examined, Pre-op evaluation done, Time-out performed, Informed consent obtained, Questions answered/anesthesia questions answered and Allergies reviewed Anticoagulation/ Anti-thrombosis status confirmed? Yes Supplemental O2: room air Monitors: BP and continuous pluse ox Patient Condition: awake Procedure: Block Type: Spinal Prep: Betadine Sterile Field: mask, cap/hat, sterile established and sterile gloves Approach: midline Spinal Block: Needle Type: pencil-point Needle Gauge: 25 Needle Length: 90 mm Placement Site: L3-4 Number of Attempts: 1 CSF: free flow, aspiration before injection, aspiration during injection, aspiration after injection Degree of difficulty: none Procedure Tolerance: tolerated well Sensory Level: T4 Motor Blockade: Yes Position post procedure: left uterine displacement Vital Signs: Vital sings monitored and stable throughout. See anesthesia record for details. Staff: Anesthesia Provider: Elizabeth Sandoval APRN-CRNA - performed the procedure Provider #1: Tai Tellez MD documented in this encounter Miscellaneous Notes * Anesthesia Transfer of Care - Elizabeth Sandoval APRN-CRNA - 12/21/2018 3:14 PM CDT ANESTHESIA TRANSFER OF CARE NOTE Today's Date: 12/21/2018 Date of : 1995 Patient: Cait Mathews Procedure(s): SECTION (REPEAT) HYSTERECTOMY TOTAL ABDOMINAL (AL) Surgeon(s): Primary: Gely Medina MD Resident - Assisting: Edilma Nguyen MD; Tg Perez MD Fellow: Sarah Chatman MD Surgeon Assisting: Bennett Carmona MD Preop Diagnosis: * No Diagnosis Codes entered * Pre-op Meds (From admission, onward) Start Stop Status Route Frequency Ordered 12/21/18 1100 *Hold/Avoid Anticoagulants and Antiplatelet agents -- Dispensed OTHER EVERY 12 HOURS ( and ) 12/21/18 1053 12/21/18 1100 *Hold/Avoid Medication -- Dispensed OTHER EVERY 12 HOURS ( and ) 12/21/18 1053 12/21/18 1122 0.9% NaCl infusion rate and volume -- Verified IV ONCE PRN 12/21/18 1123 12/21/18 1122 0.9% NaCl injection 1-10 mL 12/20 1121 Dispensed IK PRN 12/21/18 1123 12/08/18 1415 0.9% NaCl injection 10 mL 12/07 1359 Dispensed IK EVERY 8 HOURS 12/08/18 1342 12/21/18 1400 0.9% NaCl injection 3 mL 12/20 1359 Dispensed IK EVERY 8 HOURS 12/21/18 1123 12/08/18 1200 acetaminophen (TYLENOL) tablet 650 mg -- Dispensed PO EVERY 6 HOURS 12/08/18 1147 12/18/18 2145 amoxicillin (AMOXIL) capsule 500 mg 12/25 2059 Dispensed PO 3 TIMES DAILY 12/18/18 2136 12/08/18 1459 benzocaine (MAXIMUM STRENGTH ORAJEL) 20 % gel 12/07 1458 Verified PO 4 TIMES DAILY PRN 12/08/18 1459 12/21/18 1054 bupivacaine 0.75 % in dextrose (SENSORCAINE) injection 12/21 1054 Completed INTRASPINAL 12/21/18 1058 12/07/18 1723 lohhvfmfsr-whjioehtygneu-kydarqaz (FIORICET) 50-325-40 MG tablet 1 tablet 12/06 1722 Dispensed PO EVERY 4 HOURS PRN 12/07/18 1723 11/25/18 0636 calcium carbonate (TUMS) chew tablet 2 tablet 11/24 0635 Dispensed PO EVERY 4 HOURS PRN 11/25/18 0638 12/21/18 1123 carboprost (HEMABATE) injection 250 mcg 12/21 1522 Verified IM ONCE PRN 12/21/18 1123 12/21/18 1000 ceFAZolin (ANCEF) 2,000 mg in 50 mL IVPB 12/21 1349 Completed IV ONCE 12/21/18 0949 12/08/18 1230 chlorhexidine (PERIDEX) 0.12 % oral solution 12/07 0859 Dispensed SWISH AND SP 2 TIMES DAILY 12/08/18 1146 12/13/18 1142 dextrose IV 12.5-25 g -- Verified IV PRN 12/13/18 1142 12/02/18 2200 diphenhydrAMINE (BENADRYL) capsule 25 mg -- Dispensed PO AT BEDTIME 12/02/185 12/20/18 214 diphenhydrAMINE (BENADRYL) capsule 50 mg 12/20 2142 Completed PO ONCE 12/20/188 12/21/18 1052 diphenhydrAMINE (BENADRYL) injection 25 mg -- Verified IV EVERY 6 HOURS PRN 12/21/18 1053 12/16/18 0815 docusate sodium (COLACE) capsule 100 mg -- Verified PO 2 TIMES DAILY PRN 12/16/18 0810 12/21/18 1054 fentaNYL (PF) (SUBLIMAZE) injection 12/21 1054 Completed EP 12/21/18 1058 12/13/18 1142 glucagon (GLUCAGEN) injection 1 mg -- Verified IM PRN 12/13/18 1142 12/13/18 1142 glucose (Diabetic Use) oral gel 12/12 1141 Verified PO PRN 12/13/18 1142 12/21/18 1500 HYDROmorphone (DILAUDID) 0.2 mg/ml RADIATION / CHEMISTRY TECHNICIAN 01/08 1459 Verified IV RADIATION / CHEMISTRY TECHNICIAN 12/21/18 1453 12/14/18 1545 insulin aspart (NovoLOG) pen 4 Units 12/13 0759 Dispensed SC DAILY WITH BREAKFAST 12/14/18 1510 12/11/18 2100 insulin detemir (LEVEMIR) pen 36 Units -- Dispensed SC AT BEDTIME 12/11/18 1919 11/25/18 0900 iron polysaccharides (NIFEREX 150) capsule 150 mg 11/24 0859 Dispensed PO DAILY 11/25/18 0638 12/21/18 1200 ketorolac (TORADOL) injection 30 mg 12/22 1159 Verified IV EVERY 6 HOURS 12/21/18 1053 12/21/18 1000 lactated ringers 1,500 mL infusion 12/21 1001 Completed IV BOLUS IV 12/21/18 0949 12/21/18 1000 lactated ringers infusion 12/20 0959 Verified IV PRE-OP CONTINUOUS 12/21/18 0949 12/21/18 0945 lactated ringers infusion ADS Med Note to Pharmacy: Created by cabinet override 12/21 1030 Completed 12/21/18 0945 12/21/18 1130 lactated ringers IV bolus 12/21 2329 Verified IV BOLUS IV 12/21/18 1123 12/21/18 1054 lidocaine (XYLOCAINE) 1 % injection 12/21 1054 Completed INFILTRATION 12/21/18 1058 12/21/18 1123 methylergonovine (METHERGINE) injection 0.2 mg 12/21 1522 Verified IM ONCE PRN 12/21/18 1123 11/25/18 0636 metoclopramide (REGLAN) injection 10 mg -- Verified IV EVERY 6 HOURS PRN 11/25/18 0638 12/21/18 1123 miSOPROStol (CYTOTEC) tablet 800 mcg 12/21 1522 Verified RE ONCE PRN 12/21/18 1123 12/21/18 1052 morphine injection 1 mg 12/20 1051 Verified IV EVERY 1 HOUR PRN 12/21/18 1053 12/21/18 1054 morphine PF (DURAMORPH) injection 12/21 1054 Completed EP 12/21/18 1058 12/21/18 1052 naloxone (NARCAN) injection 0.2 mg -- Verified IV PRN 12/21/18 1053 11/25/18 0636 ondansetron (ZOFRAN) injection 4 mg -- Dispensed IV EVERY 6 HOURS PRN 11/25/18 0638 12/21/18 1052 ondansetron (ZOFRAN) injection 4 mg -- Verified IV EVERY 4 HOURS PRN 12/21/18 1053 12/21/18 0949 oxytocin (PITOCIN) 30 units in 500 mL 0.9% sodium chloride infusion 12/22 2148 Verified IV CONTINUOUS PRN 12/21/18 0949 12/21/18 1123 oxytocin (PITOCIN) 30 units in 500 mL 0.9% sodium chloride infusion 12/21 1522 Verified IV CONTINUOUS PRN 12/21/18 1123 11/25/18 0636 polyethylene glycol 3350 (MIRALAX) packet 17 g 11/24 0635 Verified PO DAILY PRN 11/25/18 0638 11/25/18 0900 vitamin with iron tablet 1 tablet 11/24 0859 Dispensed PO DAILY 11/25/18 0638 11/25/18 0636 prochlorperazine (COMPAZINE) suppository 25 mg -- Verified RE EVERY 12 HOURS PRN 11/25/18 0638 11/25/18 0636 simethicone (MYLICON) chew tablet 160 mg 11/24 0635 Verified PO QID PRN (after meals and at bedtime) 11/25/18 0638 12/21/18 1000 sodium citrate-citric acid 500-334 mg/5 mL oral solution 12/21 1008 Completed PO PRE-OP ONCE 12/21/18 0949 12/21/18 1123 tranexamic acid (CYKLOKAPRON) injection 1,000 mg 12/21 1522 Verified IV ONCE PRN 12/21/18 1123 12/17/18 1545 triamcinolone acetonide (KENALOG) 0.5 % cream 12/16 1359 Dispensed TP 3 TIMES DAILY 12/17/18 1511 * No Diagnosis Codes entered * . No Known Allergies Vitals: No data found. Lines, Drains, and Airways Type Details Placement Removal Peripheral IV 12/13/18; 2199; Right; Antecubital; M Samantha RN; 18 Gauge; bBraun; Anatomical Landmarks; 1; None; Well; Yes 12/13/182199 by Parris Singh RN Peripheral IV 12/20/18; 2049; Left; Antecubital; M Samantha RN; 1.125 ; 18 Gauge; bBraun; AnatomicalLandmarks; 1; None; Well 12/20/182049 by Parris Singh RN ETT 12/21/18; 1143 (created via procedure documentation); NATE Johnson; Rapid Sequence, Cricoid pressure; Michelle; 4; Grade 1 (full cords); Stylet, Cricoid Pressure; Endotracheal Tube; Oral; 7 MM; 22 CM; lips; 1; Air; 5 mL; Direct visualization, Bilateral breath sounds, Chest Auscultation, CO2 Monitor; 12/21/18; 1457 12/21/18 1143 by Elizabeth Sandoval APRN-CRNA 12/21/18 1457 by Elizabeth Sandoval APRN-CRNA Peripheral IV 12/21/18; 1236 (created via procedure documentation); Right; Hand; NATE Ruiz; 18 Gauge; General Anesthesia 12/21/18 1236 by Elizabeth Sandoval APRN-CRNA Intraprocedure I/O Totals Urine Output Urine 625 mL 0.9% NaCl infusion Volume infused 1000 ml lactated ringers infusion Volume infused 2200 ml TRANSFUSE FRESH FROZEN PLASMA UNIT(S) Volume Infused 350 mL TRANSFUSE RED BLOOD CELL LEUKOREDUCED UNIT(S) Volume Infused 300 mL Patient Transfer Location: Obstetrics Transport Airway: spontaneous respirations Complications: None Handoff Given? Yes Checklist or Protocol - The barakat handoff elements that must be included in the transfer of care checklist include: 1. Identification of patient. 2. Identification of responsible practitioner (PACU nurse or advanced practitioner). 3. Discussion of pertinent medical history. 4. Discussion of the surgical/procedure course (procedure, reason for surgery, procedure performed). 5. Intraoperative anesthetic management and issue/concerns. 6. Expectations/Plans for the early post-procedure period. 7. Opportunity for questions and acknowledgement of understanding of report from the receiving PACUteam. NATE Johnson documented in this encounter Plan of Treatment Not on file documented as of this encounter Procedures Procedure Name Priority Date/Time Associated Diagnosis Comments PERIPHERAL IV NOTE Routine 12/21/2018 12 :35 PM CDT ENDOTRACHEAL TUBE NOTE Routine 12/21/2018 11:51 AM CDT NEURAXIAL BLOCK Routine 12/21/2018 10:54 AM CDT documented in this encounter Results * PERIPHERAL IV NOTE (12/21/2018 12:35 PM CDT) Narrative Elizabeth Sandoval APRN-CRNA - 12/21/2018 12:35 PM CDT Elizabeth Sandoval APRN-CRNA ? 12/21/2018 12:36 PM Peripheral IV Line Placement: Patient Location: ??OR Procedure: IV start (15230). Procedure Section: ?? Skin Prep: Chloraprep. Orientation: right Location: hand Local Anesthetic Used? ??No Catheter Gauge: 18 Number of Attempts: 1. Procedure Tolerance: performed while patient under general anesthesia. Staff Section ?? Anesthesia Provider: Irene Obrien APRN-CRNA, Performed the procedure Tai Tellez MD GENERAL ANESTHESIA ORDERABLES * ENDOTRACHEAL TUBE NOTE (12/21/2018 11:51 AM CDT) Narrative Elizabeth Sandoval APRN-CRNA - 12/21/2018 11:51 AM CDT Elizabeth Sandoval APRN-CRNA ? 12/21/2018 11:52 AM Endotracheal Tube Placement: ? Patient Location: OB. Intubation Event Date/Time: ??12/21/2018 11:43 AM Procedure: intubation (04766). Procedure Section: ?? Sedation: under general anesthesia. [...] Tai Tellez MD GENERAL ANESTHESIA ORDERABLES * Neuraxial Block (12/21/2018 10:54 AM CDT) [...] details. Staff: ?? Anesthesia Provider: ??Elizabeth Sandoval APRN-FRONT DESK AGENT ?? - ?? performed the procedure Provider #1: ??Tai Tellez MD Tai Tellez MD GENERAL ANESTHESIA ORDERABLES documented in this encounter Visit Diagnoses Not on filedocumented in this encounter Administered Medications Inactive Administered Medications - up to 3 most recent administrations Medication Order MAR Action Action Date Dose Rate Site 0.9% NaCl infusion CONTINUOUS PRN, Starting on Wed12/21/18 at 1110, Until Wed12/21/18 at 1514, Anesthesia Intra-op $ New Bag/Syringe 12/21/2018 11:10 AM CDT bupivacaine 0.75 % in dextrose (SENSORCAINE) injection PRN, Starting on Wed12/21/18 at 1047, Until Wed12/21/18 at 1514, Anesthesia Intra-op $ Given 12/21/2018 10:47 AM CDT 13.5 mg bupivacaine 0.75 % in dextrose (SENSORCAINE) injection Intraspinal, Starting on Wed12/21/18 at 1054, Until Wed12/21/18 at 1054, Anesthesia Intra-op $ Given 12/21/2018 10:54 AM CDT 13.5 mg ceFAZolin (ANCEF) 2,000 mg in 50 mL IVPB 2,000 mg (2 g), at 100 mL/hr, Intravenous, ONCE, 1 dose, On Wed12/21/18 at 1000, Initiate within 30 minutes prior to surgical incision. Refrigerate, Indication for anti-infective therapy: Surgical prophylaxis, Pre-op $ Given 12/21/2018 1:49 PM CDT 2 g $ Given 12/21/2018 10:48 AM CDT 2 g fentaNYL (PF) (SUBLIMAZE) injection PRN, Starting on Wed12/21/18 at 1047, Until Wed12/21/18 at 1514, Anesthesia Intra-op $ Given 12/21/2018 11:55 AM CDT 90 mcg $ Given 12/21/2018 10:47 AM CDT 10 mcg fentaNYL (PF) (SUBLIMAZE) injection Epidural, Starting on Wed12/21/18 at 1054, Until Wed12/21/18 at 1054, Anesthesia Intra-op $ Given 12/21/2018 10:54 AM CDT 10 mcg fentaNYL (PF) (SUBLIMAZE) injection PRN, Starting on Wed12/21/18 at 1230, Until Wed12/21/18 at 1514, Anesthesia Intra-op $ Given 12/21/2018 2:11 PM CDT 50 mcg $ Given 12/21/2018 1:25 PM CDT 100 mcg $ Given 12/21/2018 12:30 PM CDT 100 mcg ketamine (KETALAR) injection PRN, Starting on Wed12/21/18 at 1111, Until Wed12/21/18 at 1514, Anesthesia Intra-op $ Given 12/21/2018 11:18 AM CDT 12.5 mg $ Given 12/21/2018 11:11 AM CDT 12.5 mg ketorolac (TORADOL) injection PRN, Starting on Wed12/21/18 at 1349, Until Wed12/21/18 at 1514, Anesthesia Intra-op $ Given 12/21/2018 1:49 PM CDT 30 mg lactated ringers infusion at 50 mL/hr, Intravenous, PRE-OP CONTINUOUS, Starting on Wed12/21/18 at 1000, Until Wed12/23/18 at 0407, Start IV with 18 gauge angiocath., Pre-op Current Rate 12/22/2018 10:24 AM CDT 50 mL/hr $ New Bag/Syringe 12/22/2018 10:24 AM CDT 50 mL /hr Rate Change 12/22/2018 9:50 AM CDT 50 mL/hr 50 mL/hr lidocaine (XYLOCAINE) 1 % injection Infiltration, Starting on Wed12/21/18 at 1054, Until Wed12/21/18 at 1054, Anesthesia Intra-op $ Given 12/21/2018 10:54 AM CDT 1.5 mL morphine injection PRN, Starting on Wed12/21/18 at 1227, Until Wed12/21/18 at 1514, Anesthesia Intra-op $ Given 12/21/2018 12:38 PM CDT 5 mg $ Given 12/21/2018 12:27 PM CDT 5 mg morphine PF (DURAMORPH) injection PRN, Starting on Wed12/21/18 at 1047, Until Wed12/21/18 at 1514, Anesthesia Intra-op $ Given 12/21/2018 11:55 AM CDT 4.9 mg $ Given 12/21/2018 10:47 AM CDT 0.1 mg morphine PF (DURAMORPH) injection Epidural, Starting on Wed12/21/18 at 1054, Until Wed12/21/18 at 1054, Anesthesia Intra-op $ Given 12/21/2018 10:54 AM CDT 0.1 mg Ondansetron HCl (ZOFRAN) injection PRN, Starting on Wed12/21/18 at 1038, Until Wed12/21/18 at 1514, Anesthesia Intra-op $ Given 12/21/2018 10:38 AM CDT 4 mg oxytocin (PITOCIN) 30 units in 500 mL (anesthesia fixed dose) CONTINUOUS PRN, Starting on Wed12/21/18 at 1155, Until Wed12/21/18 at 1514, Anesthesia Intra-op $ New Bag/Syringe 12/21/2018 12:23 PM CDT $ New Bag/Syringe 12/21/2018 11:55 AM CDT 1,000 mL/hr 1000 mL/hr phenylephrine 100 mcg/mL injection PRN, Starting on Wed12/21/18 at 1048, Until Wed12/21/18 at 1514, Anesthesia Intra-op $ Given 12/21/2018 10:58 AM CDT 200 mcg $ Given 12/21/2018 10:48 AM CDT 200 mcg propofol (DIPRIVAN) injection PRN, Starting on Wed12/21/18 at 1143, Until Wed12/21/18 at 1514, Anesthesia Intra-op $ Given 12/21/2018 11:43 AM CDT 150 mg succinylcholine (ANECTINE) injection PRN, Starting on Wed12/21/18 at 1143, Until Wed12/21/18 at 1514, Anesthesia Intra-op $ Given 12/21/2018 11:43 AM CDT 100 mg TRANSFUSE FRESH FROZEN PLASMA UNIT(S) Routine, STAGE 3 $ New Bag/Syringe 12/21/2018 12:29 PM CDT TRANSFUSE RED BLOOD CELL LEUKOREDUCED UNIT(S) Routine $ New Bag/Syringe 12/21/2018 12:02 PM CDT documented in this encounter Care Teams Gas 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
--- OUTSIDE RECORDS SUMMARY | 2024-04-27 18:01 | XMS_ITS | Encounter Summary ---
Author Organization [facility] Address [address] [place] [address] Care Team Providers Care Slasher Tender Name Role Phone Gala Singh MD Primary Care Provider [phone] Reason for Visit * Reason Comments Vaginal Bleeding * Auth/Cert Specialty Diagnoses / Procedures Referred By Contac t Referred To Contact Obstetrics and Gynecology Procedures SECTION (REPEAT) [facility] 5e Ante/Mom Baby [address] [place] [address] Referral ID Status Reason Start Date Expiration Date Visits Re quested Visits Authorized [id number] 11/28/2018 05/27/2019 1 Encounter Details Date Type Department Care Team (Late st Contact Info) Description 12/21/2018 10:30 AM CDT - 12/21/2018 12:43 PM CDT Surgery [facility] 5 LDR [address] [place] [address] Gely Medina MD [facility] [place] [address] SECTION Surgery Details Date/Time Status Location OR Service Patient Class Case Class Case Type Trauma Case? 12/21/2018 10:30 AM Posted [facility] LABOR AND DELIVERY LD OR 2 Obstetrics Manager Pacu Admit Surgical Panel 1 Procedure LRB Anes Op Region Wound Class Comments SECTION Epidural Abdomen Clean Contami nated HYSTERECTOMY TOTAL ABDOMINAL (AL) N/A General Abdom en Clean Contaminated Surgeon Surgeon Role Service Panel Bennett Carmona MD Surgeon Assisting Gynecology 1 Gely Medina MD Primary Obstetrics 1 Edilma Nguyen MD Resident - Assisting 1 Sarah Chatman MD Fellow Obstetrics 1 gT Perez MD Resident - Assisting Obstetrics 1 documented in this encounter Social History Tobacco [...] Sign Reading Time Taken Comments Blood Pressure 152/97 12/21/2018 7:30 AM CDT Pulse 77 12/21/2018 7:30 AM CDT Temperature 36.6 ??C (97.9 ??F) 12/21/2018 7:30 AM CD T Respiratory Rate 18 12/21/2018 7:30 AM CDT Oxygen Saturation 99% 12/21/2018 7:30 AM CDT Inhaled Oxygen Concentration - - Weight 95 kg (209 lb 6.4 oz) 12/21/2018 6:14 AM CDT Height 152.4 cm (5') 12/21/2018 6:14 [...] all questions addressed. Discharge [facility] and delivered to patient room. Discharged to nicu room with her baby. Pat Rahman RN 12/27/2018 5:34 PM * Bennett Stewart MD - 12/27/2018 2:15 PM CDT Images from the original note were not included. supervisor riprap placing Discharge Summary 01/01/2019, 2:56 AM Date of [...] old at 32w2d whose care was with [facility]. She presentedwith complaints of vaginal bleeding since [...] trimester Hospital Course: Patient admitted to high school science tutor service as a bleeding previa for observation. 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 PreE dx'd 12/08. CS scheduled for 12/21. Accreta anticipated despite negative imaging. Delivery: For full details of delivery, please refer to operative note or delivery summary. Delivery Type: Section with Hysterectomy Estimated Blood Loss: See delivery summary Anesthesia/Analgesia: See delivery summary Information for the patient's : Mine nSyder [[id number]] Date of 12/21/2018 Time of : 11:53 [...] (1.524 m) Wt 207 lb (93.9 kg) [id number]% BMI 40.43 kg/m2 Disposition: Home on day [...] Comments Your discharge diagnosis is: delivery delivered [135479] No special diet needed Resume your normal [...] 15 pounds Contact your provider Call your Concert Or Lecture Hall Manager or the [facility] if you have questions [...] of harming the baby or yourself, call [employer] Suicide Prevention Hotline the right away. Call [...] itching Take Benadryl for relief of itching. Tymp-emv-ehurplh medication Use an abdominal binder or belly band for comfort as needed. Use compression stockings (available at pharmacies or online) for leg swelling. Why you were hospitalized Order Specific Question Answer Comments Your discharge diagnosis is: delivery delivered [027399] No special diet needed Resume your normal [...] 15 pounds Contact your provider Call your Concert Or Lecture Hall Manager or the [facility] if you have questions [...] itching Take Benadryl for relief of itching. Huew-ick-cuplsrb medication Use an abdominal binder or belly [...] stay for more information. Please contact your electrical electronics technician for the followin. Any burning or itching [...] example: your cell phone and cell phone fiberglass dowel drawing operator. PLEASE REMEMBER: 1. Always place your on his/her back to sleep. 2. 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 Denies fevers/chills. [...] Stable for dc today. Doretha Mccann MD Neon Pumper of Gynecologic Oncology Dept of Obstetrics, Gynecology, [...] Cheryl Sumner MD Maternal- Medicine * Kathryn Manning, RN - 12/25/2018 6:32 AM CDT Shift [...] Manning RN - 12/25/2018 2:16 AM CDT Kwasis abdomen remains pink colored to right of [...] Mccann MD - 12/24/2018 11:38 AM CDT Tower Equipment Installer Onc Note Pain controlled. Denies fevers/chills. Denies [...] start keflex for cellulitis Doretha Mccann MD Neon Pumper of Gynecologic Oncology Dept of Obstetrics, Gynecology, [...] without difficulty. Pain controlled with Motrin andTylenol. Infant is in the NICU. 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 Refer to note. Candis Moreau LCSW [phone] * Jolanta Gutierrez RN - 12/23/2018 10:45 AM CDT 12/26/18 Spoke w/front end loader operator staff, nursing not available at this time. [...] Bledsoe - 12/23/2018 7:51 AM CDT M3 LOGGING WORKER ONC Progress Note Subjective: The patient is [...] tablet 1 tablet, Oral, QDAY ?? Tdap (ziudhnu-ikuyvpjcoy-aimqo pertussis) (BOOSTRIX) (7y+) injection 0.5 mL, Intramuscular, [...] pain. She has not ambulated and denies lightheadedness.Chapin is absent. Patient is voiding spontaneously. Objective: [...] 3-4 after seen by attending likely. [facility] Tg Perez MD 12/23/2018 7:06 AM Associated attestation - Gely Medina MD - 12/23/2018 2:48 PM CDT [facility] STAFF I have reviewed Cait Mathews [...] MD - 12/23/2018 6:20 AM CDT R2 LOGGING WORKER Progress Note Subjective: The patient is without [...] iron tablet 1 tablet, Oral, QDAY Tdap (ecniomw-jshaaekohv-pzdhr pertussis) (BOOSTRIX) (7y+) injection 0.5 mL, Intramuscular, [...] yesterday 4. SCDs for DVT ppx 2. Tower Equipment Installer 1. Prior h/o CS x1 2. Know [...] Essence Faria MD 12/23/2018 6:20 AM Pager: [phone] After 17:30 and before 7:00: call [phone] Associated attestation - Doretha Mccann MD - 12/23/2018 8:11 AM CDT Tower Equipment Installer Onc Attending Addendum I have personally seen [...] cardiac/resp workup, potential DCtomorrow. Doretha Mccann MD Neon Pumper of Gynecologic Oncology Dept of Obstetrics, Gynecology, and Women's Health 12/23/2018 8:08 AM * Kelley Rocha MD - 12/23/2018 5:44 AM CDT Called by FLEX Jackson with concerns for patient vital signs. Pt with mild tachypnea and O2 sats 93-97%. To room to evaluate. Patient sleeping comfortably. She denies any symptoms including shortness of breath and chest pain. She reports incisional pain at 7/10. BP 127/71 Pulse 91 Temp 98.3 ??F [...] to small lochia, no presence of clots. Jose intact, dressing was replaced on T incision. Pt complains of a lot of pain. Given PO and IV pain medications. Ambulating with SBA. Tolerating regular diet. Voiding independently. is in the NICU. Pt denies any [...] up to the bathroom with standby assist. in the NICU and mother is bottle feeding. Was able tovisit this evening with family present. * Mercy Merchant MD - 12/22/2018 4:50 PM CDT R3 LOGGING WORKER Onc Progress Note Patient sitting comfortably in [...] 0614 209 lb 6.4 oz (95 kg) [facility] 12/20/18 0400 213 lb 12.8 oz (97 kg) [facility] 12/19/18 0640 211 lb 9.6 oz (96 kg) [facility] 12/18/18 0548 209 lb 8 oz (95 kg) [facility] 12/17/18 0640 210 lb 8 oz (95.5 kg) [facility] 12/16/18 0118 211 lb 9.6 oz (96 kg) [facility] 12/15/18 0545 209 lb 6.4 oz (95 kg) [facility] 12/14/18 0500 207 lb 3.2 oz (94 kg) [facility] 12/13/18 0557 205 lb (93 kg) -- [...] iron tablet 1 tablet, Oral, QDAY Tdap (djyxafx-urzvezmjwg-hyokv pertussis) (BOOSTRIX) (7y+) injection 0.5 mL, Intramuscular, [...] Medina MD - 12/22/2018 8:21 AM CDT [facility] STAFF I have reviewed Cait Mathews [...] present, sutures intact. Pain controlled well with DISPATCH SPECIALIST pump and tylenol. Tolerating clear liquid diet. Chapin draining clear yellow fluid. is in the NICU. Pt denies any questions or concerns at this time. Will continue to monitor. * Renetta Padron RN - 12/22/2018 6:57 AM CDT Maternal assessment WDL. Will continue to monitor. * Lynda Sanchez MD - 12/22/2018 6:49 AM CDT R3 LOGGING WORKER Progress Note Subjective: The patient is without [...] 134/73 Pulse: 84 88 90 98 Resp: 23 18 24 29 Temp: 98.1 ??F (36.7 [...] iron tablet 1 tablet, Oral, QDAY Tdap (nsvcewh-mmffthwsti-kbebk pertussis) (BOOSTRIX) (7y+) injection 0.5 mL, Intramuscular, [...] Sanchez MD 12/22/2018 6:49 AM Call first [phone] Pager: [phone] After 17:30 and before 7:00: call [phone] * Sarah Chatman MD - 12/22/2018 6:46 [...] Bear - 12/22/2018 5:39 AM CDT M4 LOGGING WORKER ONC Progress Note Subjective: The patient is without complaints. Pain is controlled with dilaudid DISPATCH SPECIALIST. She reports no flatus. Shedenies ambulated and denies lightheadedness. Chapin present, patient is voiding without difficulty. She denies headache, fever, chest pain, shortness of breath, and leg pain. Objective: Temp (24hrs) Max:99 ??F (37.2 ??C) Vitals: 12/22/18 0145 12/22/18 0247 12/22/18 0345 12/22/18 0500 BP: 125/69 129/74 124/69 132/74 Pulse: 87 84 88 90 Resp: 24 Temp: 98.2 ??F (36.8 ??C) 98.1 ??F [...] tablet 1 tablet, Oral, QDAY ?? Tdap (aheotjb-iioxditgbg-eiodt pertussis) (BOOSTRIX) (7y+) injection 0.5 mL, Intramuscular, [...] Mild spotting 2. Pain controlled with dilaudid DISPATCH SPECIALIST 3. Abdomen is moderately TTP, incision with [...] 7. Pain is well controlled with dilaudid DISPATCH SPECIALIST 8. DVT Prophylaxis: Encourage increased ambulation. Sequential compressive devices while in bed. 9. Continue routine post-operative care/ Discharge today after seen by attending Jah Maddox 12/22/2018 5:40 AM * Reema Moreno MD - 12/22/2018 12:41 AM CDT R2 Progress Note To bedside for tachypnea and O2 noted during vital review. Patient sleeping soundly. CO2 monitor in place due to DISPATCH SPECIALIST. O2 91%. Easily awakened, O2 sat to 95%. Patient feels well. Pain well-controlled on DISPATCH SPECIALIST. Chapin in place, has not yet voided spontaneously. No flatus. UOP: 0.94cc/kg/hr since 6p-1a Plan: O2 PRN to mtn sat >95% Reema Moreno MD 12/22/2018 12:41 AM * Gabrielle Haines - 12/21/2018 5:34 PM CDT Patient Name: Cait Mathews Patient Age: [age] year old Today's Date: 12/21/2018 DELIVERY SUMMARY Estimated Date of Delivery: 01/18/19 Delivery Summary Patient Information Patient Name Cait Mathews ([id number]) Sex Female OB History 2 Para 2 Term 0 2 AB 0 Living 2 SAB 0 TAB 0 Ectopic 0 Multiple 0 Live Births 2 1 Outcome: Date: 11/17/13 GA: 34w0d Sex: F Delivery: CS-LTranv Living: MARCUS Weight: 1790 g (3 lb 15.1 oz) Anes: Spinal A1: 5 A5: 8 Complications: SGA (small for gestational age) Location: Other Delivering Clinician: Amina Armendariz MD 2 Outcome: Date: 12/21/18 GA: 36w0d Sex: F Delivery: Living: MARCUS Name: YUNIOR MATHEWS Weight: 3060 g (6 lb 11.9 oz) Anes: Spinal, General A1: 8 A5: 4 Complications: Placenta Previa Location: [facility] Delivering Clinician: Gely Medina MD Transcribed Labs [...] Blood Loss Admission (Current) from 11/25/2018 in [facility] 5 LDR Estimated Blood Loss -- Quantitated Blood Loss 1792 ml Yunior Mathews [[id number]] Patient Information Patient Name Yunior Mathews ([id number]) Sex Female Anesthesia Method: Spinal, Warehouse Incentive Selector Events steroids: Full Course GBS Status: negative [...] was present at delivery (physician name): Counts [place] [employer] Lap Pads Sponges Initial counts Added to counts Final counts Delivery ([place]) Delivery Date: 12/21/18 Delivery Time: 11:53 AM [...] 1 2 Total: 8 4 9 Delivery [place] Stabilization Equipment Checked by: NICU Vigorous at [...] for drug screen d/t emergent placenta accreta [place] Measurements Weight: 3060 g Pounds and Ounces: [...] to the serosal layer. At that time wood scrap handler oncologist Dr. Carmona was called for assistance [...] Gely Medina MD MPH M STAFF * Bennett Stewart MD - 12/21/2018 [...] distress noted, family at patient's side. * Jolanta Richards RN - 12/21/2018 9:14 AM CDT Patient took hibiclens shower this am, shaved abdomen and perineal area, chlorhexidine wipes completed. * Harpreetlana Deepa YOON Vidal-JUSTINA - 12/21/2018 7:32 AM CDT COMMUNITY CHEST OFFICER MFM Antepartum Progress Note Date: 12/21/2018 Hospital [...] 20 % gel, Oral, 4X/day PRN ?? hdjdribvnw-oaaxnanmvkwgj-poatfwsd (FIORICET) 50-325-40 MG tablet 1 tablet, Oral, [...] Plan discussed with Dr. Medina on rounds Deepa ADI Alonso 12/21/2018 7:33 AM * Amberly Crandall RN [...] Cait Mathews denies pain. Patient Progress: Cait Friedmaners VSS/AF. Bps 120s-150s/60s-90s. Pt denies contractions, pelvic [...] Crandall RN - 12/20/2018 9:25 PM CDT 12/20/18 2388 Clinician Communication/Critical Test Notification Reason: Condition Update;Patient [...] ORAJEL) 20 % gel, Oral, 4X/day PRN opennaxjte-adafsriutyjde-dyzdxhay (FIORICET) 50-325-40 MG tablet 1 tablet, Oral, [...] os 3. S/p ANCS 09/25- & 4. 8/: EFW: 2962 grams, 85%ile, AC >99th, [...] is denyingthe request for sterilization. [facility] * Perla Jansen MD - [...] MD 12/19/2018 1:44 PM * Deepa Chaudhry APRN-PEST CONTROL SERVICE SALES AGENT - 12/19/2018 10:04 AM CDT COMMUNITY CHEST OFFICER MFM Antepartum Progress Note Date: 12/19/2018 Hospital [...] 20 % gel, Oral, 4X/day PRN ?? ejgolblqyl-ktjlbcwwclpoe-tpokehmx (FIORICET) 50-325-40 MG tablet 1 tablet, Oral, [...] Date: 12/18/2018 Hospital Day: 23 Subjective: Cait Matehws is a 23 year old at 35w4d [...] (36.5 ??C) 71 16 120/67 99 % 08/10/19 2000 98.1 ??F (36.7 ??C) 62 22 [...] 6.0* 6.4 6.2* EGFR >60 >60 >60 NST/[place]: See separate procedure note MEDICATIONS FOR CURRENT [...] 20 % gel, Oral, 4X/day PRN ?? ocoyictxre-ddcvlsjwsluzh-beomcfyi (FIORICET) 50-325-40 MG tablet 1 tablet, Oral, [...] 4. S/p ANCS 09/25- & 11/25- 5. 8/7: EFW: 2962 grams, 85%ile, AC >99th, [...] Medina MD - 12/18/2018 2:03 PM CDT [facility] STAFF I have reviewed Cait Mathews [...] days Gely Medina MD, MPH * Daylin Neves RN - 12/18/2018 5:55 AM CDT Shift summary: [...] Neves RN - 12/18/2018 12:14 AM CDT Ciat denies any contractions/cramping. Scant amount of brown [...] 6.0* 6.4 6.2* EGFR >60 >60 >60 NST/[place]: See separate procedure note MEDICATIONS FOR CURRENT [...] 20 % gel, Oral, 4X/day PRN ?? eydrsczisf-ovsyumkklvwhr-dapkiqxo (FIORICET) 50-325-40 MG tablet 1 tablet, Oral, [...] 4. S/p ANCS 09/25- & 11/25- 5. 8/7: EFW: 2962 grams, 85%ile, AC >99th, [...] 12/17/2018 7:53 AM Associated attestation - Gely Medina MD - 12/17/2018 2:16 PM CDT [facility] STAFF I have reviewed Cait Mathews [...] days Gely Medina MD, MPH * Kathryn Manning, RN - 12/17/2018 6:14 AM CDT Shift [...] denies ctx or cramping. * Deepa Chaudhry Marcy, SOUND ENGINEER-PEST CONTROL SERVICE SALES AGENT - 12/16/2018 1:12 PM CDT COMMUNITY CHEST OFFICER MFM Antepartum Progress Note Date: 12/16/2018 Hospital [...] 20 % gel, Oral, 4X/day PRN ?? qdmxrmsapk-bcalvcotejdov-vvjyqsnf (FIORICET) 50-325-40 MG tablet 1 tablet, Oral, [...] cervical os 3. S/p ANCS 09/25- & 11/25- 4. 8/: EFW: 2962 grams, 85%ile, AC >99th, [...] 0545 209 lb 6.4 oz (95 kg) Bedscale 12/14/18 0500 207 lb 3.2 oz (94 kg) Bedscale 12/13/18 0557 205 lb (93 kg) - [...] 12/15/2018 10:44 AM Ascom [id number] * Deepa Chaudhry, SOUND ENGINEER-PEST CONTROL SERVICE SALES AGENT - 12/15/2018 9:00 AM CDT COMMUNITY CHEST OFFICER MFM Antepartum Progress Note Date: 12/15/2018 Hospital [...] 20 % gel, Oral, 4X/day PRN ?? twmuciqyau-nbdxzuxmaafqf-isyqbtps (FIORICET) 50-325-40 MG tablet 1 tablet, Oral, [...] os 3. S/p ANCS 09/25- & 4. 12/14: EFW: 2962 grams, 85%ile, [...] Labs Component Name 12/15/18 0506 CREATININE 0.50* NST/[place]: See separate procedure note MEDICATIONS FOR CURRENT [...] ORAJEL) 20 % gel, Oral, 4X/day PRN mxjrqbjxun-jxesblvxymvjq-flczqrco (FIORICET) 50-325-40 MG tablet 1 tablet, Oral, [...] 6.4 6.2* 6.4 EGFR >60 >60 >60 NST/[place]: See separate procedure note MEDICATIONS FOR CURRENT [...] 20 % gel, Oral, 4X/day PRN ?? exibeermep-aodnymeeoowde-nsifylzq (FIORICET) 50-325-40 MG tablet 1 tablet, Oral, [...] 11/24: EFW 2214g (81%), AC >99% 4. 8 sugars: 75, 176, 112, 107 5. 88 fastin 6. Cont levemir 36 QHS, start novolog 4 units with breakfast ? Suspect PreE without severe features 1. 24 hour BP ranges: overall normotensive with one diastolic of 90 1. One severe range blood pressure to 160/103 on 12/07/18 at 1610 2. Asymptomatic 3. 8/ P:C ratio from straight cath 1.18 (of [...] 6.4 6.2* 6.4 EGFR >60 >60 >60 NST/[place]: See separate procedure note MEDICATIONS FOR CURRENT [...] 20 % gel, Oral, 4X/day PRN ?? fvfdzxhdcq-vsunkdtqehxls-xgjoiupm (FIORICET) 50-325-40 MG tablet 1 tablet, Oral, [...] ? Gely Medina MD, MPH * Rupa Hope LPN - 12/13/2018 5:23 PM CDT Problem: Bleeding [...] (36.5 ??C) 75 16 121/83 99 % 12/12/18 1600 97.8 ??F (36.6 ??C) 88 20 [...] 138 mg/dL 12/12/18 0632 fbs 87 mg/dL NST/[place]: See separate procedure note MEDICATIONS FOR CURRENT [...] ORAJEL) 20 % gel, Oral, 4X/day PRN wcaythetve-rkervfdkynlit-ofxwqvgy (FIORICET) 50-325-40 MG tablet 1 tablet, Oral, [...] GCT 147 2. GTT 97/167/121/138 3. US 7/18: EFW 2214g (81%), AC >99% 4. Blood [...] Medina MD - 12/13/2018 2:20 PM CDT [facility] STAFF ?? I have reviewed Cait Mathews [...] ?? Gely Medina MD, MPH * Daylin Neves, RN - 12/13/2018 5:21 AM CDT Cait [...] all meals and hs accu checks * Ruap Hope LPN - 12/12/2018 5:36 PM CDT [...] concerns.willcont. To monitor pt. * Sari Reyes, JULIENNE/LD - 12/12/2018 3:38 PM CDT Problem: Biochemical: [...] improved/normalized Nutrition Goal Timeframe: Throughout stay Sari Reyes RD/MADALYN, DTR 12/12/2018 3:47 PM Ascom [id number] * [...] contractions and scant brown discharge. Phone and calllight within reach. Will continue to monitor. * [...] 117 mg/dL 12/11/18 0616 fbs 103 mg/dL NST/[place]: See separate procedure note MEDICATIONS FOR CURRENT [...] ORAJEL) 20 % gel, Oral, 4X/day PRN neooztfoxp-kyxivpddwbfvc-wxtfupir (FIORICET) 50-325-40 MG tablet 1 tablet, Oral, [...] Medina MD - 12/12/2018 1:52 PM CDT [facility] STAFF I have reviewed Cait Mathews [...] Will continue to monitor pt. * Amberly Crandall RN - 12/11/2018 11:24 PM CDT Problem: [...] ht 115. HRT 170's. Dr Sanchez notified. to room to assess pt. * Mallory [...] 6.2* 6.4 6.0* EGFR >60 >60 >60 NST/[place]: See separate procedure note MEDICATIONS FOR CURRENT [...] ORAJEL) 20 % gel, Oral, 4X/day PRN knlvmdrxsk-kqypfsqexxxus-xoprfwcy (FIORICET) 50-325-40 MG tablet 1 tablet, Oral, [...] 09/25-, rANCS 11/25- 6. S/p NICU consult GDM [...] few days, did not require treatment 2. 8 P:C ratio from straight cath 1.18 3. [...] NST: baseline 170 bpm, moderate variability, n [id number], no decelerations, [place]: no ctx A/P: CMP to eval for [...] ??F (36.8 ??C), Resp:18, BP:133/83, SpO2:99 % 12/09/18 2005, Pulse:86, Resp:18, BP:140/97 12/09/18 1500, Temp:98.3 ??F (36.8 ??C), Pulse:91, Resp:18, BP:122/77 12/09/18 1433, Temp:97.2 ??F (36.2 ??C), Pulse:93, Resp:18, BP:127/67 12/09/18 1140, Temp:97.2 ??F (36.2 ??C), Pulse:93, Resp:18, BP:127/67 12/09/18 0910, Temp:97.4 ??F (36.3 ??C), Pulse:70, Resp:18, BP:136/79, SpO2:97 % Intake/Output Summary (Last 24 hours) at 12/10/18 09 Last data filed at 12/10/18 0523 Gross [...] 6.2* 6.4 6.0* EGFR >60 >60 >60 NST/[place]: See separate procedure note MEDICATIONS FOR CURRENT [...] ORAJEL) 20 % gel, Oral, 4X/day PRN fuvlksnwca-uzusbqfvbfgww-kkahblpv (FIORICET) 50-325-40 MG tablet 1 tablet, Oral, [...] HDL, LDLCALC, TRIG, CHOLHDL in the last 36830 hours. CARDIAC No results for input(s): CKTOTAL, CKMB, TROPONINI in the last 13874 hours. Invalid input(s): CKMBINDEX DIABETES Recent Labs Component Name 12/08/18 0549 CREATININE 0.43* ABG Physical Exam: General: alert, cooperative, no distress Lungs: nonlabored respirations Abdomen: gravid, nontender Extremities: no edema or tenderness bilaterally NST/[place]: See separate procedure note MEDICATIONS FOR CURRENT [...] ORAJEL) 20 % gel, Oral, 4X/day PRN qqfzxvtrix-vsijatdgycarc-npxifnhu (FIORICET) 50-325-40 MG tablet 1 tablet, Oral, [...] PRN Assessment/Plan: 23 year old at 34w2d, AFVSSk, with Patient Active Problem List Diagnosis Date [...] 6.2* 6.4 6.0* EGFR >60 >60 >60 NST/[place]: See separate procedure note MEDICATIONS FOR CURRENT [...] 20 % gel, Oral, 4X/day PRN ?? togozhlzoy-nfywodtbnnzbc-olmuqjzi (FIORICET) 50-325-40 MG tablet 1 tablet, Oral, [...] 5. 12/08 sugars: 78, 144, 115 6. 8 fastin 1. PreE without severe features 1. [...] ORAJEL) 20 % gel, Oral, TID PRN nhsbtwprva-krtrjchewtzye-iaggrozf (FIORICET) 50-325-40 MG tablet 1 tablet, Oral, [...] 3. H/o LTCS x1 ?? G1 in 2014 at 34 weeks due [...] brown discharge when doing anthony care. * Ksenia Mg Zion - 12/07/2018 11:52 AM CDT Problem: Biochemical: [...] Blood sugar range 88-141 , noted adding levimer . Low Na , elevated Alk Phos [...] Chaudhry APRN-CNP - 12/07/2018 8:36 AM CDT COMMUNITY CHEST OFFICER MFM Antepartum Progress Note Date: 12/07/2018 Hospital [...] 88 mg/dL URINALYSIS REFLEX MICROSCOPIC REFLEX CULTURE [[id number]] (Abnormal) Collected: 12/06/2018 1253 ?? Order Status: Completed Lab Status: Final result Updated: 12/06/2018 1341 ?? Specimen: Urine from Urine Clean Catch ?? Color UA Yellow Straw, Yellow ?? Clarity UA Slt Cloudy (Abnormal) Clear ?? Glucose UA Negative Negative ?? Bilirubin UA Negative Negative ?? Ketone UA Trace (Abnormal) Negative ?? Specific [place] UA 1.015 1.005 - 1.030 ?? Blood [...] nontender Extremities: no edema or tenderness bilaterally NST/[place]: See separate procedure note MEDICATIONS FOR CURRENT [...] higher than her previous blood pressures today. was notified. IV remains in place and [...] 6.0* 5.3* 5.1* EGFR >60 >60 >60 NST/[place]: See separate procedure note MEDICATIONS FOR CURRENT [...] 1. Repeat CL 3.1, KOREY 15.51 9. [place] discontinued 10. Plan: C/S at 36 weeks [...] inpatient care Mallory Brower MD * Lynda Campuzano RN - 12/05/2018 1:19 PM CDT 12/05/18 [...] 6.0* 5.3* 5.1* EGFR >60 >60 >60 NST/[place] [place]: See separate procedure note MEDICATIONS FOR CURRENT [...] 97.4 ??F (36.3 ??C) 75 18 - 12/04/18 2025 132/92 98.4 ??F (36.9 ??C) 89 18 [...] Notification Method: Called/Phoned Action Orders Received Comments: [place] for 30 min If toco is unchanged [...] 6.0* 5.3* 5.1* EGFR >60 >60 >60 NST/[place]: See separate procedure note MEDICATIONS FOR CURRENT [...] Wt 202 lb 3.2 oz (91.7 kg) [id number]% BMI 39.49 kg/m2 Physical Exam: General: alert, [...] CDT I called maintenance & spoke with JoelCyndiCait reports her shower is too hot & [...] with hot shower water. I called the MOLDED GOODS OPERATOR & spoke with Sunitha who will put [...] 6.0* 5.3* 5.1* EGFR >60 >60 >60 NST/[place]: See separate procedure note MEDICATIONS FOR CURRENT [...] my note. Candace Peacock MD * Charlene Storm RN - 12/02/2018 4:44 PM CDT Shift [...] results for input(s): PHOS in the last 41753 hours.No results for input(s): HGBA1C in the last 31260 hours. No results for input(s): PREALBUMIN in the last 75348 hours. Patient Vitals for the past 30 [...] Wt 202 lb 3.2 oz (91.7 kg) [id number]% BMI 39.49 kg/m2 Physical Exam: General: alert, [...] 6.0* 5.3* 5.1* EGFR >60 >60 >60 NST/[place]: See separate procedure note MEDICATIONS FOR CURRENT [...] 5. ANCS on 09/25-, repeat 11/25-11/26 6. S/p NICU consult 7. [...] note. Candace Peacock MD * ToJuan - 12/02/2018 5:09 AM CDT MS4 Antepartum [...] Bran MD - 12/02/2018 3:40 PM CDT [facility] Fellow: Agree with above note. This [...] assessment as charted. Report given to Tasha W., RN * Candace Peacock MD - 12/01/2018 [...] 202 lb 3.2 oz (91.7 kg) SpO2 97% BMI 39.49 kg/m2 Physical Exam: General: alert, [...] 6.0* 5.3* 5.1* EGFR >60 >60 >60 NST/[place]: See separate procedure note MEDICATIONS FOR CURRENT [...] my note. Candace Peacock MD * Jahaira Doyle, RN - 12/01/2018 6:13 AM CDT Shift [...] any contractions or cramping throughout shift * MeleJuan Lynnette - 12/01/2018 5:16 AM CDT MS4 Antepartum [...] Bran MD - 12/01/2018 2:00 PM CDT M Fellow: Agree with above [...] Wt 202 lb 3.2 oz (91.7 kg) [id number]% BMI 39.49 kg/m2 Physical Exam: General: alert, [...] 6.0* 5.3* 5.1* EGFR >60 >60 >60 NST/[place]: See separate procedure note MEDICATIONS FOR CURRENT [...] note. Candace Peacock MD * To, Juan Lynnette - 11/30/2018 5:17 AM CDT MS4 Antepartum [...] (36.7 ??C), Pulse:70, Resp:18, BP:108/66, SpO2:99 % 11/29/181999, Temp:98.3 ??F (36.8 ??C), Pulse:81, Resp:18, BP:121/80, [...] Bran MD - 11/30/2018 5:11 PM CDT MFM Fellow: Agree with above note. This medical student note is for purposes of education. Please see note fromNP/resident/fellow/attending for questions regarding the patient plan. Vera Bran MD * Jahaira Doyle RN - 11/30/2018 2:15 AM CDT Problem: [...] Wt 202 lb 3.2 oz (91.7 kg) [id number]% BMI 39.49 kg/m2 Physical Exam: General: alert, [...] daily monitoring. Candace Peacock MD * Alejandra Galindo Walter, RD/LD - 11/29/2018 10:04 AM CDT CLINICAL [...] Labs Component Name 10/06/18 1101 GLUCOSEFAST 97* [id number] 167 [id number] 121 [id number] 138 ?? No results for input(s): PHOS in the last 53617 hours.No results for input(s): HGBA1C in the last 73026 hours. No results for input(s): PREALBUMIN in the last 40379 hours. Patient Vitals for the past 30 [...] improved/normalized Nutrition Goal Timeframe: Throughout stay Alejandra Galindo RD/LD 11/29/2018 10:10 AM Ascom [id number] * [...] 6.0* 5.3* 5.1* EGFR >60 >60 >60 NST/[place]: See separate procedure note MEDICATIONS FOR CURRENT [...] dependence Plan: Continue current management Start evening Yoal Peacock MD * Saurav Ksenia Zion - 11/28/2018 1:57 PM CDT CLINICAL NUTRITION [...] Labs Component Name 10/06/18 1101 GLUCOSEFAST 97* [id number] 167 [id number] 121 [id number] 138 A woman admitted at 32w5d with [...] 11/28/2018 7:39 AM CDT Shift Summary: Cait FARIA, pt denies cramping, contractions, LOF, vaginal bleeding. [...] 6.0* 5.3* 5.1* EGFR >60 >60 >60 NST/[place]: See separate procedure note MEDICATIONS FOR CURRENT [...] See my note. Candace Peacock MD * Juan Shabazz - 11/28/2018 6:16 AM CDT MS4 Antepartum [...] Bran MD - 11/28/2018 8:10 PM CDT M Fellow: Agree with above [...] AM CDT R2 Progress Note Notified by FLEX Schmitt of small dark red, dime-sized flakes noted [...] 5.3* 5.1* 5.5* EGFR >60 >60 >60 NST/[place]: See separate procedure note MEDICATIONS FOR CURRENT [...] ANCS on 09/25-, repeat 11/25-11/26 1. Accuchecks: 111-205 8. NICU [...] Wt 202 lb 3.2 oz (91.7 kg) [id number]% BMI 39.49 kg/m2 Gen - NAD Abd - NT Ext - NT, no edema FHTs - 140s-150 bpm, reactive [place] - no ctx Patient Active Problem List [...] 0957 & removed at 1031 due to Cait request stating im done with this monitoring, [...] still request for monitoring to be removed. [place] & ultrasound removed. * Charlene Storm RN [...] 5.3* 5.1* 5.5* EGFR >60 >60 >60 NST/[place]: See separate procedure note MEDICATIONS FOR CURRENT [...] Repeat PRN 6. S/p admission on and for bleeding 7. ANCS on , repeat 11/25-11/26 1. Accuchecks: 139-203 8. NICU [...] - wandering baseline between 130-150 bpm, reactive [place] - no ctx Patient Active Problem List [...] any concerns/questions or changes in condition. * Jaun Shabazz - 11/25/2018 11:13 AM CDT MS4 [...] bleeding. 3rd bleeding this . S/p ANCS 09/25-20 S/p T&C x2 Plan: - Continue CEFM [...] administered 9. GCT: 147 GTT: 97/169/121/138 Juan Church To 11/25/2018 11:13 AM Associated attestation - [...] Delivery: 01/18/19 care: is with high risk [facility] Patient's is complicated by: Patient Active Problem [...] CBC drawn 7. S/p admission on and for bleeding 8. ANCS on 9. Delivery Planning: CS at 36 weeks (12/21) 2. H/o LTCS x1 1. G1 in 2014 [...] Dr. Sumner to see patient today. Sara Duran MD 11/25/2018 8:05 AM Associated attestation - Cheryl Sumner MD - 11/25/2018 3:12 PM CDT MFM Attending I have seen, evaluated and examined the patient with Dr. rBan. I agree with the above assessment,exams and plans. Doing well. No further vaginal bleeding. Feels good FM. Denies contractions Exam: BP 128/62 Temp 98.4 ??F (36.9 ??C) Resp 18 Ht 5' (1.524 m) Wt 202 lb 3.2 oz (91.7 kg) SpO2 96% BMI 39.49 kg/m2 Gen - NAD Abd - NT FHTs - 130s reactive for GA [place] - no contractions Patient Active Problem List [...] 145-155 bpm, moderate variability, reactive, no decelerations [place]: uterine irritability Perla Jansen MD 12/20/2018 5:38 AM Associated attestation - Sari Wilson MD - 12/20/2018 10:44 AM CDT [facility] BUTTER MAKER Attending Note I have reviewed the images [...] Lion RN Non-Stress Test (NST) Cait Mathews [id number] 12/17/2018 10:54 PM Indications: Patient Active Problem [...] Pat RN Non-Stress Test (NST) Cait Mathews [id number] 12/17/2018 7:52 AM Indications: Complete previa Interpretation: [...] >30 seconds were detected. Gely Medina MD [facility] STAFF * Lynda Pat RN - 12/15/2018 6:37 PM CDTAssociated Order(s): NONSTRESS TEST Procedure(s): NONSTRESS TEST Name: Cait Mathews Date of : 1995 Today's Date: 12/15/2018 Start: 1754 End: 183 NST RESULTS ([place]) OBJECTIVE FINDINGS Temp: 98.5 ??F (36.9 ??C), Pulse: 65, Resp: 18, BP: 138/97 NST Indication(s): Gestational diabetes, Placenta Previa Uterine Irritability: Yes Contractions: Irregular Frequency: x2 OBJECTIVE FINDINGS Movement: Present Monitoring Mode: External Baseline: 150 BPM Variability: Moderate Decelerations: None Accelerations: Yes OTHER INFORMATION Comments: pt denies feeling Lynda Pat RN Associated attestation - Deepa Chaudhry APRN-CNP - 12/16/2018 2:05 PM CDT I have reviewed the NST strip and the data in this note. My interpretation for this NST is reactive, no decelerations present ADI Atwood * Vijaya Ashton MD - 12/14/2018 12:00 PM CDTAssociated Order(s): NONSTRESS TEST Name: Cait Mathews Date of : 1995 Today's Date: 12/14/2018 [id number] NST RESULTS ([place]) OBJECTIVE FINDINGS Temp: 98.2 [...] R1 Addendum Non-Stress Test (NST) Cait Mathews [id number] 12/15/2018 5:59 AM Indications: Placenta Previa, GDM, [...] R1 Addendum Non-Stress Test (NST) Cait Mathews [id number] 12/14/2018 6:06 AM Indications: Placenta Previa Interpretation: [...] Gely Medina MD MPH M STAFF * Perla Jansen MD - 12/12/2018 [...] 125-140 bpm, moderate variability, reactive, no decelerations [place]: no contractions Perla Jansen MD 12/13/2018 6:56 AM Associated attestation - Gely Medina MD - 12/13/2018 2:22 PM CDT I have reviewed the tracing and concur with the resident's description and interpretation. The FHT is reactive using 15x15 bpm criteria. No FHR decelerations lasting >30 seconds were detected. Gely Medina MD MPH [facility] STAFF * Marci Mejia RN - [...] Maternal- Medicine * Perla Jansen MD - 12/11/2018 10:18 AM CDTAssociated Order(s): NONSTRESS TEST Name: Cait Mathews Date of : 1995 Today's Date: 12/11/2018 Start: 818 End: 0936 NST RESULTS ([place]) OBJECTIVE FINDINGS Temp: 98.1 [...] etiolology unclear, moderate variability, reactive, no decelerations [place]: no contractions Perla Jansen MD 12/12/2018 5:08 [...] Mejia RN Non-Stress Test (NST) Cait Mathews [id number] 12/12/2018 8:41 AM Indications: Patient Active Problem [...] Yes OTHER INFORMATION Jolanta Richards RN Associated attMallory Syed MD - 12/09/2018 6:48 PM CDT I [...] Yes OTHER INFORMATION Kimberly Renee RN Associated traci - Mallory Brower MD - 12/08/2018 11:17 [...] vs prolonged acceleration at end of strip [place]: no contractions Perla Jansen MD 12/08/2018 6:12 [...] variability, reactive, no obvious decelerations; baseline change of5565 to 130 bpm [place]: no contractions Perla Jansen MD 12/08/2018 6:10 AM Associated attestation - Mallory Brower MD - 12/12/2018 8:39 PM CDT I have reviewed the heart rate tracing and agree with the impression of: reactive and without contractions Mallory Brower MD Maternal- Medicine * Lynda Campuzano RN - 12/06/2018 12:49 PM CDTAssociated Order(s): NONSTRESS TEST Name: Cait Mathews Date of : 1995 Today's Date: 12/06/2018 Start 1135 Stop 1202 NST RESULTS ([place]) OBJECTIVE FINDINGS Temp: 98 ??F (36.7 ??C), , Resp: 16, BP: 142/87 NST Indication(s): Placenta Previa Uterine Irritability: Yes Contractions: Not present OBJECTIVE FINDINGS Movement: Present Monitoring Mode: External Baseline: 150 BPM Variability: Moderate Decelerations: Variable Accelerations: Yes OTHER INFORMATION Inpatient Interventions: None Lynda Campuzano RN Associated attestation - Malolry Brower MD - 12/06/2018 10:23 PM CDT I [...] Inpatient Interventions: None Lynda Campuzano RN Associated attestation - Mallory Brower MD - 12/05/2018 8:31 PM CDT I [...] Campuzano RN Non-Stress Test (NST) Cait Mathews [id number] 12/05/2018 6:05 AM Indications: Patient Active Problem [...] , antepartum Vaginal bleeding Interpretation: Contractions: Irregular ([place] only) Recs: Irregular contractions seen. Overall reassuring. Cont testing. Gabrielle Lui MD * Gabrielle Lui MD - 12/04/2018 2:22 PM CDTAssociated Order(s): NONSTRESS TEST Name: Cait Mathesw Date of : 1995 Today's Date: 12/04/2018 [...] Campuzano RN Non-Stress Test (NST) Cait Mathews [id number] 12/05/2018 6:07 AM Indications: Patient Active Problem [...] of : 1995 Today's Date: 12/03/2018 Start: 1435 Stop: 1520 NST RESULTS ([place]) OBJECTIVE FINDINGS [...] Accelerations: Yes OTHER INFORMATION Inpatient Interventions: None Chralene Storm RN Non-Stress Test Indications: Patient Active [...] Moderate Decelerations: None Accelerations: Yes OTHER INFORMATION Matrha Pineda RN Non-Stress Test Indications: Patient Active [...] of : 1995 Today's Date: 11/28/2018 Start: 1737 End: 1819 NST RESULTS ([place]) OBJECTIVE FINDINGS , Pulse: [...] Order(s): NONSTRESS TEST Procedure(s): NONSTRESS TEST NST Start:11-27-18; 2231 Stop:11-27-18; 2314 Name: Cait Mathews Date of [...] Inpatient Interventions: None Keshia Bey RN Start 0844 End 09 Non-Stress Test Indications: Patient Active Problem List: [...] Cheryl Sumner MD 11/27/2018 1:28 PM MFM Elizabeth Hanna RN - 11/26/2018 11:12 PM CDTAssociated Order(s): [...] of : 1995 Today's Date: 11/26/2018 Start: 1649 Stop: 1730 NST RESULTS ([place]) OBJECTIVE FINDINGS Temp: 98.9 [...] this encounter Consult Notes * Candis Moreau, BULB GROWER - 12/23/2018 3:12 PM CDTAssociated Order(s): IP CONSULT TO LABELER BUTTER MAKER CASE MANAGEMENT PSYCHOSOCIAL ASSESSMENT Reason for Referral: [...] is now breathing on her own and doingwell. Hopefully baby will be able to join [...] Snyder, . He is employed as a Content Production Specialist. He has been by thept's side during her hospitalization. Language Barriers: na Cultural Barriers: na Ethnicity: White/ Lang: TURK[place] Patient's Address: [address] [place] [address] , [place] [address] Pt's phone number: [phone] Family Support (name and phone) Extended Emergency Contact Information Primary Emergency Contact: Matt Snyder [facility] Mobile Relation: Significant other Secondary Emergency Contact: ReidElmiraMalika [facility] Mobile Relation: Mother Alternative Senior Teller Family Strengths: Pt is from a large family. Her siblings also live in [place]. Some of S.O.s family also live in [place]. Family Dynamic/Household Composition/Other children: 5 yr old Leroy. Alcohol/Drug/Smoking History (including history of tx): Psychiatric History: History of Depression (no information on the history given). 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 Education: 10th grade. Government assistance TANF (Temporary Assistance to Needy Families)- na Food [place]- yes WIC- yes SSI- Insurance: Payor/Plan Subscriber Name Rel Member # Group # [employer] * CAIT MATHEWS [facility] [id number] [address] [place] [address] Community Resources Utilized: na Designated Facility Security Officer: Dr. Karen Singh Referrals: Nurses for Newborns- na Child protection referral- na DFS/DCFS-Name of worker: Phone number: Other- Does the family have the following basic discharge needs? Utilities- yes Telephone- yes Car seat- yes Crib- yes Baby clothing- yes Crimping Machine Operator/School: Parents are unsure about children's program coordinator. 5 yr old daughter is starting Kindergarten. Transportation: car. Family planning: The pt and her BUTTER MAKER have discussed family planning. Pt [place] an OB in the [place] area. Recommended discharge plan for infant: Discharge home with family when medically stable. Candis Moreau LCSW [phone] * Guerda Weaver MD - 11/30/2018 1:49 PM CDTAssociated Order(s): IP CONSULT TO NEONATOLOGY Maternal Consult Note Cait Mathews 556/01 Today's Date: 11/30/2018 Estimated Gestational Age: 33w0d [...] History: family history is not on file. Facility Security Officer: Unknown Feeding: discussed, and patient not likely to breastfeed Briefly discussed adverse outcome risks with 33w0d prematurity with mother at bedside including: LOW PRESSURE BOILER OPERATOR/development - Discussed effects on feeding ability, poor regulation of temperature and respiratory centers. Increased risk of intracranial/intraventricular hemorrhage compared with term infant, less significant with increasing gestational age at delivery. Future risk for developmental delay, and in severe cases cerebral palsy. Recommended early intervention services and OT/PT as needed for concerns. Respiratory - Discussed possibility of needing respiratory support including intubation with mechanical ventilation, and possible need for surfactant. Increased risk of bronchopulmonary dysplasia with mcc prognosis related to severity of condition. steroids [...] intubation/ventilator support.Discussed possible need for transfer to [facility] early in life. Impression: 23 year old y/o woman at 33w0d EGA gestation with threatened PTL. Discussed risks of prematurity: intubation/respiratory support, infection, need for central lines, prolonged NICU stay, feeding support and transfer to [facility]. Patient expresses understanding. All questions answered. 1. Introduced above risks and general care, patient understood and questions were answered. [...] in this encounter Nursing Notes * Chanda Valdivia RN - 12/26/2018 5:33 PM CDT This [...] she receives her insurance pump or when infant is discharged, whichever comes first. Loaner agreement form reviewed and signed. Reminded to bring all pump parts, including tubing, to NICU with her so she can pump at infants bedside. Encouraged she continue to track pump sessions/volumes on pump log and pointed out LC number to call with questions/concerns as needed. Ginger Franco, DANII, RN, IBCLC * Carlos Alcala RN - [...] fax was sent on her behalf to [facility] for a personal breast pump. Carlos [...] and night time every 4hours. She has [facility] and we will fax a [...] genneral Findings: Information for the patient's : Reid, Baby Girl Cait [[id number]] Date of 12/21/2018 Time of : 11:53 [...] After Dr. Medina performed the section, Dr. aCrmona performed supracervical hysterectomy. Please see Dr. Medina's [...] Dr. Bennett Carmona performed hysterectomy Assistants: Tg Perez MD, Bettina Nguyen MD, Sarah Chatman MD Anesthesia: spinal then genneral Findings: Information for the patient's : Yunior Mathews Girl Cait [[id number]] Date of 12/21/2018 Time of : 11:53 [...] spectrum. At this time, Dr. Carmona from [facility] was called to [place]. Mother was [...] was made was made. A 3060 gram delivered from a vertex presentation with breech [...] to the serosal layer. At that time wood scrap handler oncologist Dr. Carmona was called for assistance [...] * Gely Medina MD - Primary * gT Perez MD - Resident - Assisting * Edilma Nguyen MD - Resident - Assisting * Sarah Chatman MD - Fellow * Bennett Carmona MD - Surgeon Assisting Anesthesiologist: Tai Tellez MD MOLDED GOODS OPERATOR: Irene Obrien APRN-MOLDED GOODS OPERATOR; Elizabeth Sandoval APRN-MOLDED GOODS OPERATOR * No Diagnosis Codes entered * Postoperative [...] UNIT(S) STAT 12/21/2018 1 1:30 AM CDT AL TOTAL ABDOM HYSTERECTOMY 12/21/2018 10:27 AM CDT [...] provider. Scanned Document LAB - THERAPEUTIC DR NAVI MONITORING ORDERABLES * EKG 12-LEAD (12/23/2018 10:47 AM CDT) Ventricular Rate 72 BPM [facility] Atrial Rate 72 BPM [facility] P-R Interval 190 ms [facility] QRS Duration ms 78 ms [facility] Q-T Interval ms 374 ms [facility] QTC Calculation (Bezet) 409 ms [facility] Calculated P [place] 37 degrees [facility] Calculated R [place] 3 degrees [facility] Calculated T [place] 27 degrees [facility] Interpretation EKG NORMAL SINUS RHYTHM NORMAL ECG NO PREVIOUS ECGS AVAILABLE Confirmed by Kathryn Power ([id number]) on 12/23/2018 4:38:50 PM [facility] 12/23/2018 10:4 7 AM CDT 12/23/2018 4:38 PM CDT Kelley Rocha MD ECG ORDERABLES [facility] * ECHOCARDIOGRAM 2D WITH DOPPLER (12/23/2018 8:38 AM CDT) 12/23/2018 8:38 AM CDT Narrative [facility] - 12/23/2018 12:[address] PM CDT [address] [address] Transthoracic Echocardiogram 2D, M-mode, Doppler, and Color Doppler Patient: CAIT MAHTEWS MR number: [id number] Height: 60 in Weight: 208.6 lb BSA: 1.9 m?? Study date: 23-Dec-2018 : 1995 Age: 23 years Gender: Female Race: Spool Maker: ??Ada Steel RDCS Referring Physician: ??Cheryl Sumner [...] MD Signed 23-Dec-2018 12:19:29 Procedure Note 12/26/2018 [place] [address] Transthoracic Echocardiogram 2D, M-mode, Doppler, and Color Doppler Patient: CAIT MATHEWS MR number: [id number] Height: 60 in Weight: 208.6 lb BSA: 1.9 m?? Study date: 23-Dec-2018 : 1995 Age: 23 years Gender: Female Race: Spool Maker: Ada Steel RDCS Referring Physician: Cheryl Sumner [...] Ratio: 2 Prepared and signed by Jarod Evreett MD Signed 23-Dec-2018 12:19:29 Kelley Rocha MD ECHO ORDERABLES [facility] [address] [place] [address] * XR CHEST 2VW (12/23/2018 8:34 AM [...] - 106 mg/dL 12/23/2018 7:49 AM CDT [facility] Sodium 139 136 - 145 mmol/L 12/23/2018 7:49 AM CDT [facility] Potassium 3.9 3.5 - 5.1 mmol/L 12/23/2018 7:49 AM CDT [facility] Chloride 107 98 - 107 mmol/L 12/23/2018 7:49 AM CDT [facility] CO2 24 23 - 31 mmol/L 12/23/2018 7:49 AM CDT [facility] Calcium 8.7 8.4 - 10.2 mg/dL 12/23/2018 7:49 AM CDT [facility] Anion Gap 8 8 - 16 mmol/L 12/23/2018 7:49 AM CDT [facility] BUN 5(L) 7 - 18.7 mg/dL 12/23/2018 7:49 AM CDT [facility] Creatinine 0.50(L) 0.55 - 1.02 mg/dL 12/23/2018 7:49 AM CDT [facility] Alkaline Phosphatase 113 40 - 150 U/L 12/23/2018 7:49 AM CDT [facility] ALT 12(L) 13 - 61 U/L 12/23/2018 7:49 AM CDT [facility] AST 15 5 - 34 U/L 12/23/2018 7:49 AM CDT [facility] Protein Total 5.2(L) 6.4 - 8.3 gm/dL 12/23/2018 7:49 AM CDT [facility] Albumin 2.6(L) 3.5 - 5.2 gm/dL 12/23/2018 7:49 AM CDT [facility] Bilirubin Total 0.3 0.2 - 1.0 mg/dL 12/23/2018 7:49 AM CDT [facility] eGFR by MDRD >60 >60 mL/min/1.7 3m2 12/23/2018 7:49 AM CDT [facility] eGFR by MDRD >60 >60 mL/min/1.7 3m2 12/23/2018 7:49 AM CDT [facility] Blood BLOOD SPECIMEN / Unknown Lab Venipuncture / Unknown 12/23/2018 7:07 AM CDT 12/23/2018 7:22 AM CDT Kelley Rocha MD LAB - CHEMISTRY [facility] Organization Address City/State/ZIP Co de Phone Number [facility] [address] [place] [address] * (ABNORMAL) CBC W AUTO DIFFERENTIAL (12/23/2018 7:07 AM CDT) WBC 9.7 4.4 - 10.7 x10E9/L 12/23/2018 7:31 AM CDT [facility] WBC Corrected 12/23/2018 7:31 AM CDT [facility] RBC 3.29(L) 3.80 - 5.20 x10E12/L 12/23/2018 7:31 AM CDT [facility] Hemoglobin 9.6(L) 12.0 - 15.6 gm/dL 12/23/2018 7:31 AM CDT [facility] Hematocrit 30.7(L) 35.9 - 45.5 % 12/23/2018 7:31 AM [facility] MCV 93.3 80.7 - 98.3 fl 12/23/2018 7:31 AM CDT [facility] MCH 29.2 26.7 - 34.0 pg 12/23/2018 7:31 AM CDT [facility] MCHC 31.3 30.8 - 35.9 gm/dL 12/23/2018 7:31 AM [facility] Platelet Count 195 153 - 416 x10E9/L 12/23/2018 7:31 AM [facility] RDW-CV 15.0(H) 12.1 - 14.9 % 12/23/2018 7:31 AM [facility] MPV 11.0 9.4 - 12.9 fl 12/23/2018 7:31 AM [facility] Neutrophils % 76.6(H) 44.0 - 73.0 % 12/23/2018 7:31 AM T [facility] Lymphocytes % 14.9(L) 20.0 - 43.0 % 12/23/2018 7:31 AM [facility] Monocytes % 7.0 5.0 - 13.0 % 12/23/2018 7:31 AM [facility] Eosinophils % 0.3 0.0 - 6.0 % 12/23/2018 7:31 AM T [facility] Basophils % 0.2 0.0 - 2.0 % 12/23/2018 7:31 AM T [facility] Immature Granulocytes 1.0 0 - 1 % 12/23/2018 7:31 AM [facility] Neutrophil Absolute 7.44(H) 2.01 - 7.14 x10E9/L 12/23/2018 7:31 AM T [facility] Lymphocytes Absolute 1.45 1.07 - 3.94 x10E9/L 12/23/2018 7:31 AM T [facility] Monocytes Absolute 0.68 0.26 - 1.07 x10E9/L 12/23/2018 7:31 AM CDT [facility] Eosinophils Absolute 0.03 0 - 0.47 x10E9/L 12/23/2018 7:31 AM CDT [facility] Basophils Absolute 0.02 0 - 0.08 x10E9/L 12/23/2018 7:31 AM CDT [facility] Immature Granulocytes Absolute 0.10(H) 0.00 - 0.06 x10E9/L 12/23/2018 7:31 AM CDT [facility] nRBC Auto 0 /100 WBC 12/23/2018 7:31 AM CDT [facility] Blood BLOOD SPECIMEN / Unknown Lab Venipuncture / Unknown 12/23/2018 7:07 AM CDT 12/23/2018 7:22 AM CDT Kelley Rocha MD LAB - HEMATOLOGY ORD ERABLES Performing Organization Address City/State/[facility] Co de Phone Number [facility] [address] [place] [address] * (ABNORMAL) CBC W AUTO DIFFERENTIAL (12/22/2018 7:15 PM CDT) WBC 12.2(H) 4.4 - 10.7 x10E9/L 12/22/2018 7:42 PM CDT [facility] WBC Corrected 12/22/2018 7:42 PM CDT [facility] RBC 3.61(L) 3.80 - 5.20 x10E12/L 12/22/2018 7:42 PM CDT [facility] Hemoglobin 10.7(L) 12.0 - 15.6 gm/dL 12/22/2018 7:42 PM CDT [facility] Hematocrit 32.7(L) 35.9 - 45.5 % 12/22/2018 7:42 PM CDT [facility] MCV 90.6 80.7 - 98.3 fl 12/22/2018 7:42 PM CDT [facility] MCH 29.6 26.7 - 34.0 pg 12/22/2018 7:42 PM CDT [facility] MCHC 32.7 30.8 - 35.9 gm/dL 12/22/2018 7:42 PM CDT [facility] Platelet Count 180 153 - 416 x10E9/L 12/22/2018 7:42 PM [facility] RDW-CV 14.9 12.1 - 14.9 % 12/22/2018 7:42 PM [facility] MPV 11.9 9.4 - 12.9 fl 12/22/2018 7:42 PM [facility] Neutrophils % 80.8(H) 44.0 - 73.0 % 12/22/2018 7:42 PM [facility] Lymphocytes % 11.5(L) 20.0 - 43.0 % 12/22/2018 7:42 PM [facility] Monocytes % 5.5 5.0 - 13.0 % 12/22/2018 7:42 PM [facility] Eosinophils % 0.2 0.0 - 6.0 % 12/22/2018 7:42 PM [facility] Basophils % 0.2 0.0 - 2.0 % 12/22/2018 7:42 PM [facility] Immature Granulocytes 1.8(H) 0 - 1 % 12/22/2018 7:42 PM [facility] Neutrophil Absolute 9.81(H) 2.01 - 7.14 x10E9/L 12/22/2018 7:42 PM [facility] Lymphocytes Absolute 1.40 1.07 - 3.94 x10E9/L 12/22/2018 7:42 PM [facility] Monocytes Absolute 0.67 0.26 - 1.07 x10E9/L 12/22/2018 7:42 PM [facility] Eosinophils Absolute 0.02 0 - 0.47 x10E9/L 12/22/2018 7:42 PM [facility] Basophils Absolute 0.03 0 - 0.08 x10E9/L 12/22/2018 7:42 PM [facility] Immature Granulocytes Absolute 0.22(H) 0.00 - 0.06 x10E9/L 12/22/2018 7:42 PM [facility] nRBC Auto 0 /100 WBC 12/22/2018 7:42 PM [facility] Blood BLOOD SPECIMEN / Unknown Lab Venipuncture / Unknown 12/22/2018 7:15 PM CDT 12/22/2018 7:31 PM CDT Bennett Stewart MD LAB - HEMATOLOGY ORD ERABLES [facility] [address] [place] [address] * XR CHEST 1VW PORTABLE (12/22/2018 8:03 [...] - 106 mg/dL 12/22/2018 8:17 AM CDT [facility] Sodium 136 136 - 145 mmol/L 12/22/2018 8:17 AM CDT [facility] Potassium 4.1 3.5 - 5.1 mmol/L 12/22/2018 8:17 AM CDT [facility] Chloride 104 98 - 107 mmol/L 12/22/2018 8:17 AM CDT [facility] CO2 22(L) 23 - 31 mmol/L 12/22/2018 8:17 AM CDT [facility] Calcium 8.2(L) 8.4 - 10.2 mg/dL 12/22/2018 8:17 AM CDT [facility] Anion Gap 10 8 - 16 mmol/L 12/22/2018 8:17 AM CDT [facility] BUN 4(L) 7 - 18.7 mg/dL 12/22/2018 8:17 AM CDT [facility] Creatinine 0.41(L) 0.55 - 1.02 mg/dL 12/22/2018 8:17 AM CDT [facility] Alkaline Phosphatase 141 40 - 150 U/L 12/22/2018 8:17 AM CDT [facility] ALT 12(L) 13 - 61 U/L 12/22/2018 8:17 AM CDT [facility] AST 19 5 - 34 U/L 12/22/2018 8:17 AM CDT [facility] Protein Total 5.3(L) 6.4 - 8.3 gm/dL 12/22/2018 8:17 AM CDT [facility] Albumin 2.6(L) 3.5 - 5.2 gm/dL 12/22/2018 8:17 AM CDT [facility] Bilirubin Total 0.3 0.2 - 1.0 mg/dL 12/22/2018 8:17 AM CDT [facility] eGFR by MDRD >60 >60 mL/min/1.7 3m2 12/22/2018 8:17 AM CDT [facility] eGFR by MDRD >60 >60 mL/min/1.7 3m2 12/22/2018 8:17 AM CDT [facility] Blood BLOOD SPECIMEN / Unknown Lab Venipuncture / Unknown 12/22/2018 7:29 AM CDT 12/22/2018 7:43 AM CDT Tg Perez MD LAB - CHEMISTRY [facility] Organization Address City/State/ZIP Co de Phone Number [facility] [address] [place] [address] * (ABNORMAL) MAGNESIUM BLOOD (12/22/2018 7:29 AM CDT) Magnesium 3.7(H) 1.6 - 2.6 mg/dL 12/22/2018 8:17 AM CDT [facility] Blood BLOOD SPECIMEN / Unknown Lab Venipuncture / Unknown 12/22/2018 7:29 AM CDT 12/22/2018 7:43 AM CDT Tg Perez MD LAB - CHEMISTRY [facility] Organization Address City/State/ZIP Co de Phone Number [facility] [address] [place] [address] * (ABNORMAL) CBC W AUTO DIFFERENTIAL (12/22/2018 7:29 AM CDT) WBC 11.1(H) 4.4 - 10.7 x10E9/L 12/22/2018 7:51 AM CDT [facility] WBC Corrected 12/22/2018 7:51 AM CDT [facility] RBC 3.62(L) 3.80 - 5.20 x10E12/L 12/22/2018 7:51 AM CDT [facility] Hemoglobin 10.7(L) 12.0 - 15.6 gm/dL 12/22/2018 7:51 AM CDT [facility] Hematocrit 32.8(L) 35.9 - 45.5 % 12/22/2018 7:51 AM CDT [facility] MCV 90.6 80.7 - 98.3 fl 12/22/2018 7:51 AM CDT [facility] MCH 29.6 26.7 - 34.0 pg 12/22/2018 7:51 AM CDT [facility] MCHC 32.6 30.8 - 35.9 gm/dL 12/22/2018 7:51 AM CDT [facility] Platelet Count 180 153 - 416 x10E9/L 12/22/2018 7:51 AM CDT [facility] RDW-CV 14.6 12.1 - 14.9 % 12/22/2018 7:51 AM CDT [facility] MPV 11.3 9.4 - 12.9 fl 12/22/2018 7:51 AM CDT [facility] Neutrophils % 83.2(H) 44.0 - 73.0 % 12/22/2018 7:51 AM CDT [facility] Lymphocytes % 10.1(L) 20.0 - 43.0 % 12/22/2018 7:51 AM CDT [facility] Monocytes % 4.7(L) 5.0 - 13.0 % 12/22/2018 7:51 AM CDT [facility] Eosinophils % 0.2 0.0 - 6.0 % 12/22/2018 7:51 AM CDT [facility] Basophils % 0.3 0.0 - 2.0 % 12/22/2018 7:51 AM CDT [facility] Immature Granulocytes 1.5(H) 0 - 1 % 12/22/2018 7:51 AM CDT [facility] Neutrophil Absolute 9.20(H) 2.01 - 7.14 x10E9/L 12/22/2018 7:51 AM CDT [facility] Lymphocytes Absolute 1.12 1.07 - 3.94 x10E9/L 12/22/2018 7:51 AM CDT [facility] Monocytes Absolute 0.52 0.26 - 1.07 x10E9/L 12/22/2018 7:51 AM CDT [facility] Eosinophils Absolute 0.02 0 - 0.47 x10E9/L 12/22/2018 7:51 AM CDT [facility] Basophils Absolute 0.03 0 - 0.08 x10E9/L 12/22/2018 7:51 AM CDT [facility] Immature Granulocytes Absolute 0.17(H) 0.00 - 0.06 x10E9/L 12/22/2018 7:51 AM CDT [facility] nRBC Auto 0 /100 WBC 12/22/2018 7:51 AM CDT [facility] Blood BLOOD SPECIMEN / Unknown Lab Venipuncture / Unknown 12/22/2018 7:29 AM CDT 12/22/2018 7:43 AM CDT Reema Moreno MD LAB - HEMATOLOGY ORDERABLES [facility] [address] [place], [place] [id number] * (ABNORMAL) FIBRINOGEN ACTIVITY (12/22/2018 7:29 AM CDT) Fibrinogen 620(H) 200 - 400 mg/dL 12/22/2018 8:05 AM T [facility] Blood BLOOD SPECIMEN / Unknown Lab Venipuncture / Unknown 12/22/2018 7:29 AM CDT 12/22/2018 7:43 AM CDT Edilma Nguyen MD LAB - COAGULATION OR DERABLES Performing Organization Address [facility] Co de Phone Number [facility] [address] [place] [address] * PTT (12/22/2018 7:29 AM CDT) PTT 21.3 21.0 - 32.0 sec 12/22/2018 8:01 AM CDT [facility] Blood BLOOD SPECIMEN / Unknown Lab Venipuncture / Unknown 12/22/2018 7:29 AM CDT 12/22/2018 7:43 AM CDT Narrative [facility] - 12/22/2018 8:01 AM CDT Heparin Therapeutic Range for PTT: 50.5 - 74.3 seconds. Edilma Nguyen MD LAB - COAGULATION OR DERABLES Performing Organization Address [facility] de Phone Number [facility] [address] [place] [address] * (ABNORMAL) PT-INR (12/22/2018 7:29 AM CDT) PT <9.5(L) 9.5 - 11.6 sec 12/22/2018 8:05 AM CDT [facility] INR <0.9(L) 0.9 - 1.1 12/22/2018 8:05 AM CDT [facility] Blood BLOOD SPECIMEN / Unknown Lab Venipuncture / Unknown 12/22/2018 7:29 AM CDT 12/22/2018 7:43 AM CDT Narrative [facility] - 12/22/2018 8:05 AM CDT Conventional Warfarin Anticoagulant Therapy: INR Reference Range: ??2.0-3.0 Intensive Warfarin Anticoagulant Therapy: INR Reference Range: ? 2.5-3.5 Edilma Nguyen MD LAB - COAGULATION OR DERABLES Performing Organization Address City/[facility] Co de Phone Number [facility] [address] [place] [address] * (ABNORMAL) GLUCOSE - POINT OF CARE (12/22/2018 6:35 AM CDT) Pathologist [facility] Glucose WB/POC 108(H) 70 - 106 mg/dL 12/22/2018 6:42 AM CDT [facility] Specimen Type Arterial/C apillary 12/22/2018 6:42 AM CDT [facility] Blood BLOOD SPECIMEN / Unknown 12/22/2018 6:35 AM CDT 12/22/2018 6:42 AM CDT Gely Medina MD LAB - POINT OF CARE ORDERABLES Performing Organization Address [facility] Co de Phone Number [facility] [address] [place] [address] * (ABNORMAL) FIBRINOGEN ACTIVITY (12/21/2018 9:40 PM CDT) Pathologist [facility] Fibrinogen 503(H) 200 - 400 mg/dL 12/21/2018 9:57 PM CDT [facility] Blood BLOOD SPECIMEN / Unknown Lab Venipuncture / Unknown 12/21/2018 9:40 PM CDT 12/21/2018 9:45 PM CDT Edilma Nguyen MD LAB - COAGULATION OR DERABLES Performing Organization Address [facility] de Phone Number [facility] [address] [place] [address] * PTT (12/21/2018 9:40 PM CDT) Pathologist [facility] PTT 21.0 21.0 - 32.0 sec 12/21/2018 9:57 PM CDT [facility] Blood BLOOD SPECIMEN / Unknown Lab Venipuncture / Unknown 12/21/2018 9:40 PM CDT 12/21/2018 9:45 PM CDT Narrative [facility] - 12/21/2018 9:57 PM CDT Heparin Therapeutic Range for PTT: 50.5 - 74.3 seconds. Edlima Nguyen MD LAB - COAGULATION OR DERABLES [facility] [address] [place] [address] * (ABNORMAL) PT-INR (12/21/2018 9:40 PM CDT) [facility] PT <9.5(L) 9.5 - 11.6 sec 12/21/2018 10:09 PM CDT [facility] INR <0.9(L) 0.9 - 1.1 12/21/2018 10:09 PM CDT [facility] Blood BLOOD SPECIMEN / Unknown Lab Venipuncture / Unknown 12/21/2018 9:40 PM CDT 12/21/2018 9:45 PM CDT Narrative [facility] - 12/21/2018 10:09 PM CDT Conventional Warfarin Anticoagulant Therapy: INR Reference Range: ??2.0-3.0 Intensive Warfarin Anticoagulant Therapy: INR Reference Range: ? 2.5-3.5 Edilma Nguyen MD LAB - COAGULATION OR DERABLES Performing Organization Address [facility] Co de Phone Number [facility] [address] [place] [id number] * PROTEIN CREATININE RATIO URINE RANDOM PNL (12/21/2018 4:19 PM CDT) [facility] Protein Urine 126.6 mg/dL 12/21/2018 5:16 PM CDT [facility] Creatinine Urine 83.92 mg/dL 12/21/2018 5:16 PM CDT [facility] Protein/Creatin ine Ratio Urine 1.51 12/21/2018 5:16 PM CDT [facility] Urine URINE SPECIMEN OBTAINED BY CLEAN CATCH PROCEDURE / Unknown Collection / Unknown 12/21/2018 4:19 PM CDT 12/21/2018 4:32 PM CDT Edilma Nguyen MD LAB - URINE CHEMISTR Y ORDERABLES Performing Organization Address [facility]/ZIP Co de Phone Number [facility] [address] [place] [address] * (ABNORMAL) COMPREHENSIVE METABOLIC PANEL (12/21/2018 4:18 PM CDT) [facility] Glucose 76 74 - 106 mg/dL 12/21/2018 5:15 PM CDT [facility] Sodium 136 136 - 145 mmol/L 12/21/2018 5:15 PM CDT [facility] Potassium 4.0 3.5 - 5.1 mmol/L 12/21/2018 5:15 PM CDT [facility] Chloride 108(H) 98 - 107 mmol/L 12/21/2018 5:15 PM CDT [facility] CO2 19(L) 23 - 31 mmol/L 12/21/2018 5:15 PM CDT [facility] Calcium 8.1(L) 8.4 - 10.2 mg/dL 12/21/2018 5:15 PM CDT [facility] Anion Gap 9 8 - 16 mmol/L 12/21/2018 5:15 PM CDT [facility] BUN 5(L) 7 - 18.7 mg/dL 12/21/2018 5:15 PM CDT [facility] Creatinine 0.37(L) 0.55 - 1.02 mg/dL 12/21/2018 5:15 PM CDT [facility] Alkaline Phosphatase 142 40 - 150 U/L 12/21/2018 5:15 PM CDT [facility] ALT 13 13 - 61 U/L 12/21/2018 5:15 PM CDT [facility] AST 18 5 - 34 U/L 12/21/2018 5:15 PM CDT [facility] Protein Total 4.9(L) 6.4 - 8.3 gm/dL 12/21/2018 5:15 PM CDT [facility] Albumin 2.5(L) 3.5 - 5.2 gm/dL 12/21/2018 5:15 PM CDT [facility] Bilirubin Total 0.3 0.2 - 1.0 mg/dL 12/21/2018 5:15 PM CDT [facility] eGFR by MDRD >60 >60 mL/min/1.7 3m2 12/21/2018 5:15 PM CDT [facility] eGFR by MDRD >60 >60 mL/min/1.7 3m2 12/21/2018 5:15 PM CDT [facility] Blood BLOOD SPECIMEN / Unknown Venipuncture / Unknown 12/21/2018 4:18 PM CDT 12/21/2018 4:32 PM CDT Edilma Nguyen MD LAB - CHEMISTRY [facility] Organization Address City/State/ZIP Co de Phone Number [facility] [address] [place] [address] * (ABNORMAL) CBC W AUTO DIFFERENTIAL (12/21/2018 4:18 PM CDT) WBC 18.1(H) 4.4 - 10.7 x10E9/L 12/21/2018 4:48 PM CDT [facility] WBC Corrected 12/21/2018 4:48 PM CDT [facility] RBC 3.82 3.80 - 5.20 x10E12/L 12/21/2018 4:48 PM CDT [facility] Hemoglobin 11.6(L) 12.0 - 15.6 gm/dL 12/21/2018 4:48 PM CDT [facility] Hematocrit 34.6(L) 35.9 - 45.5 % 12/21/2018 4:48 PM CDT [facility] MCV 90.6 80.7 - 98.3 fl 12/21/2018 4:48 PM CDT [facility] MCH 30.4 26.7 - 34.0 pg 12/21/2018 4:48 PM CDT [facility] MCHC 33.5 30.8 - 35.9 gm/dL 12/21/2018 4:48 PM CDT [facility] Platelet Count 175 153 - 416 x10E9/L 12/21/2018 4:48 PM CDT [facility] RDW-CV 14.5 12.1 - 14.9 % 12/21/2018 4:48 PM CDT [facility] MPV 11.6 9.4 - 12.9 fl 12/21/2018 4:48 PM CDT [facility] Neutrophils % 86.0(H) 44.0 - 73.0 % 12/21/2018 4:48 PM CDT [facility] Lymphocytes % 9.6(L) 20.0 - 43.0 % 12/21/2018 4:48 PM CDT [facility] Monocytes % 2.9(L) 5.0 - 13.0 % 12/21/2018 4:48 PM CDT [facility] Eosinophils % 0.2 0.0 - 6.0 % 12/21/2018 4:48 PM CDT [facility] Basophils % 0.2 0.0 - 2.0 % 12/21/2018 4:48 PM CDT [facility] Immature Granulocytes 1.1(H) 0 - 1 % 12/21/2018 4:48 PM CDT [facility] Neutrophil Absolute 15.52(H) 2.01 - 7.14 x10E9/L 12/21/2018 4:48 PM CDT [facility] Lymphocytes Absolute 1.74 1.07 - 3.94 x10E9/L 12/21/2018 4:48 PM CDT [facility] Monocytes Absolute 0.52 0.26 - 1.07 x10E9/L 12/21/2018 4:48 PM CDT [facility] Eosinophils Absolute 0.03 0 - 0.47 x10E9/L 12/21/2018 4:48 PM CDT [facility] Basophils Absolute 0.04 0 - 0.08 x10E9/L 12/21/2018 4:48 PM CDT [facility] Immature Granulocytes Absolute 0.20(H) 0.00 - 0.06 x10E9/L 12/21/2018 4:48 PM CDT [facility] nRBC Auto 0 /100 WBC 12/21/2018 4:48 PM CDT [facility] Blood BLOOD SPECIMEN / Unknown Venipuncture / Unknown 12/21/2018 4:18 PM CDT 12/21/2018 4:32 PM CDT Edilma Nguyen MD LAB - HEMATOLOGY ORD ERABLES [facility] Organization Address City/State/[facility] Co de Phone Number [facility] [address] [place] [address] * GROSS + MICRO EXAM (STL) (12/21/2018 12:39 PM CDT) Case Report Surgical Pathology Report ? Case: [id number] ? Authorizing Provider: ??Gely Medina MD ? Collected: ? 12/21/2018 12:39 PM ? Ordering Location: ? [facility] ? Received: ?12/22/2018 08:04 AM ? Pathologist: ? Indu Rodriguez MD ? Specimen: ?Uterus, uterus and placenta ? 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 12/26/2018 12:51 PM CDT [facility] Gross Description Received in a container of formalin and labeled Cait Mathews, and uterus is a disrupted uterus with [...] serially sectioned and display spongy red parenchyma. [facility] sections are submitted as follows: A1-A3 - endometrium, A4-A5 - one section of placenta and myometrium, A6-A7 - placenta and adherent myometrium, A8 - umbilical cord and membranes, A9 - surface, A10 - maternal surface. Adriana 12/26/2018 12:51 PM [facility] Microscopic Description The placental implantation invades myometrium, consistent with placenta increta. The placental villi are of appropriate maturation for gestational age of 36 weeks 0 days. No villitis, thrombi, or infarcts are noted. The membranes are unremarkable and free of inflammation. The umbilical cord has three vessels and is unremarkable. 12/26/2018 12:51 PM [facility] Disclaimer All histochemical and/or immunohistochemical results are interpreted with controls that demonstrate appropriate staining reactions before reporting results. Note on use of immunocytochemistry reagents: This test was developed and its performance characteristic determined by [facility], Department of Laboratory Medicine. It has not been cleared or approved by the U.S. Food and Drug Administration (FDA). The FDA has determined that such clearance or approval is not necessary. The test is used for clinical purpose. It should not be regarded as investigational or for research. This laboratory is certified to perform high complexity testing. 12/26/2018 12:51 PM CDT [facility] Embedded Images 12/26/2018 12:51 PM CDT [facility] Pathology/Cytolo gy ENTIRE UTERUS / Unknown 12/21/2018 12:39 PM CDT 12/22/2018 8:04 AM CDT Gely Medina MD LAB - PATHOLOGY/CYT OLOGY ORDERABLES Performing Organization Address City/[facility]/ZIP Co de Phone Number [facility] [address] [place] [address] * TRANSFUSE FRESH FROZEN PLASMA UNIT(S) (12/21/2018 12:29 PM CDT) Edilma Nguyen MD NURSING - BLOOD PROD TRANSFUSION * TRANSFUSE RED BLOOD CELL LEUKOREDUCED UNIT(S) (12/21/2018 12:18 PM CDT) Bennett Stewart MD NURSING - BLOOD PROD TRANSFUSION * PREPARE PLATELET PHERESIS UNIT(S), 1 Units (12/21/2018 11:30 AM CDT) Product Code [id number] [facility] Unit Donor # [id number] S [facility] ABO Donor Type O [facility] Rh [facility] Unit POS [facility] Unit Status Ret'd [facility] ABO Rh Type Unit OPOS [facility] Donor Unit Expiration Date [id number] [facility] Blood Type Barcode 5100 [facility] Blood Bank BLOOD SPECIMEN / Unknown 12/21/2018 11:30 AM CDT Edilma Nguyen MD LAB - BLOOD BANK ORD ERABLES Performing Organization Address [facility]/ZIP Co de Phone Number [facility] [address] [place] [address] * PREPARE FFP UNIT(S), 4 Units (12/21/2018 11:30 AM CDT) Product Code [id number] [facility] Unit Donor # [id number] S [facility] ABO Donor Type AB [facility] Rh [facility] Unit POS [facility] Unit Status Ret'd [facility] ABO Rh Type Unit ABPOS [facility] Donor Unit Expiration Date [facility] Blood Type Barcode 8400 [facility] Product Code [id number] [facility] Unit Donor [facility] [id number] S [facility] ABO Donor Type AB [facility] Rh Type Unit POS [facility] Unit Status Ret'd [facility] ABO Rh Type Unit ABPOS [facility] Donor Unit [facility]piration Date [facility] Blood Type Barcode 8400 [facility] Product Code [id number] [facility] Unit Donor [facility] [id number] S [facility] ABO Donor Type B [facility] Rh Type Unit POS [facility] Unit Status Transfd [facility] ABO Rh [facility] Unit BPOS [facility] Donor Unit Expiration Date [facility] Blood Type Barcode [address] [facility] Blood Bank BLOOD SPECIMEN / Unknown 12/21/2018 11:30 AM CDT Edilma Nguyen MD LAB - BLOOD BANK ORD ERABLES [facility] [address] [phone] * PREPARE (CROSSMATCH) RBC UNIT(S), 4 Units (12/21/2018 11:30 AM CDT) Product Code [id number] [facility] Unit Donor # [id number] S [facility] LAB ABO Donor Type B [facility] Rh Type Unit POS [facility] Unit Status Ret'd [facility] ABO Rh Type Unit BPOS [facility] Donor Unit Expiration Date [facility] Blood Type Barcode 7300 [facility] Product Code [id number] [facility] Unit Donor # [id number] S [facility] ABO Donor Type B [facility] Rh Type Unit POS [facility] BL OOD BANK LAB Unit Status Ret'd [facility] ABO Rh Type Unit BPOS [facility] Donor Unit Expiration Date [id number] [facility] Blood Type Barcode 7300 [facility] Blood Bank BLOOD SPECIMEN / Unknown 12/21/2018 11:30 AM CDT Edilma Nguyen MD LAB - BLOOD BANK ORD ERABLES [facility] [address] [place] [address] * PREPARE FFP UNIT(S), 4 Units (12/21/2018 11:30 AM CDT) Product Code [id number] [facility] Unit Donor # [id number] S [facility] ABO Donor Type B [facility] Rh Type Unit POS [facility] Unit Status Ret'd [facility] OD BANK LAB ABO Rh Type Unit BPOS [facility] Donor Unit Expiration Date [id number] [facility] Blood Type Barcode 7300 [facility] Blood Bank BLOOD SPECIMEN / Unknown 12/21/2018 11:30 AM CDT Edilma Nguyen MD LAB - BLOOD BANK ORD ERABLES [facility] [address] [place] [address] * PREPARE (CROSSMATCH) RBC UNIT(S), 4 Units (12/21/2018 11:30 AM CDT) Product Code [id number] [facility] Unit Donor # [id number] [facility] ABO Donor Type B [facility] Rh Type Unit POS [facility] Unit Status Ret'd [facility] ABO Rh Type Unit BPOS [facility] Donor Unit Expiration Date [id number] [facility] Blood Type Barcode 7388 [facility] Blood Bank BLOOD SPECIMEN / Unknown 12/21/2018 11:30 AM CDT Edilma Nguyen MD LAB - BLOOD BANK ORD ERABLES Performing Organization Address [facility] Co de Phone Number [facility] [address] [place] [address] * PREPARE (CROSSMATCH) RBC UNIT(S), 2 Units (12/21/2018 11:30 AM CDT) Product Code [id number] [facility] Unit Donor # [id number] S [facility] ABO Donor Type B [facility] Rh Type Unit POS [facility] Unit Status Ret'd [facility] ABO Rh Type Unit BPOS [facility] Donor Unit Expiration Date [id number] [facility] Blood Type Barcode 7386 [facility] Blood Bank BLOOD SPECIMEN / Unknown 12/21/2018 11:30 AM CDT Edilma Nguyen MD LAB - BLOOD BANK ORD ERABLES Performing Organization Address [facility] Co de Phone Number [facility] [address] [place] [address] * (ABNORMAL) COMPREHENSIVE METABOLIC PANEL (12/21/2018 8:39 AM CDT) Glucose 96 74 - 106 mg/dL 12/21/2018 9:21 AM CDT [facility] Sodium 136 136 - 145 mmol/L 12/21/2018 9:21 AM CDT [facility] Potassium 4.0 3.5 - 5.1 mmol/L 12/21/2018 9:21 AM CDT [facility] Chloride 107 98 - 107 mmol/L 12/21/2018 9:21 AM CDT [facility] CO2 20(L) 23 - 31 mmol/L 12/21/2018 9:21 AM CDT [facility] Calcium 8.9 8.4 - 10.2 mg/dL 12/21/2018 9:21 AM CDT [facility] Anion Gap 9 8 - 16 mmol/L 12/21/2018 9:21 AM CDT [facility] BUN 8 7 - 18.7 mg/dL 12/21/2018 9:21 AM CDT [facility] Creatinine 0.44(L) 0.55 - 1.02 mg/dL 12/21/2018 9:21 AM CDT [facility] Alkaline Phosphatase 171(H) 40 - 150 U/L 12/21/2018 9:21 AM CDT [facility] ALT 15 13 - 61 U/L 12/21/2018 9:21 AM CDT [facility] AST 12 5 - 34 U/L 12/21/2018 9:21 AM CDT [facility] Protein Total 5.9(L) 6.4 - 8.3 gm/dL 12/21/2018 9:21 AM CDT [facility] Albumin 3.0(L) 3.5 - 5.2 gm/dL 12/21/2018 9:21 AM CDT [facility] Bilirubin Total 0.2 0.2 - 1.0 mg/dL 12/21/2018 9:21 AM CDT [facility] eGFR by MDRD >60 >60 mL/min/1.7 3m2 12/21/2018 9:21 AM CDT [facility] eGFR by MDRD >60 >60 mL/min/1.7 3m2 12/21/2018 9:21 AM CDT [facility] Blood BLOOD SPECIMEN / Unknown Lab Venipuncture / Unknown 12/21/2018 8:39 AM CDT 12/21/2018 8:45 AM CDT Deepa Chaudhry SOUND ENGINE[employer]ENT LAB - FLOOR TRADER RY ORDERABLES [facility] [address] [place] [address] * (ABNORMAL) CBC W AUTO DIFFERENTIAL (12/21/2018 8:39 AM CDT) WBC 10.5 4.4 - 10.7 x10E9/L 12/21/2018 8:53 AM CDT [facility] WBC Corrected 12/21/2018 8:53 AM CDT [facility] RBC 3.71(L) 3.80 - 5.20 x10E12/L 12/21/2018 8:53 AM T [facility] Hemoglobin 11.0(L) 12.0 - 15.6 gm/dL 12/21/2018 8:53 AM T [facility] Hematocrit 33.5(L) 35.9 - 45.5 % 12/21/2018 8:53 AM [facility] MCV 90.3 80.7 - 98.3 fl 12/21/2018 8:53 AM CDT [facility] MCH 29.6 26.7 - 34.0 pg 12/21/2018 8:53 AM [facility] MCHC 32.8 30.8 - 35.9 gm/dL 12/21/2018 8:53 AM [facility] Platelet Count 193 153 - 416 x10E9/L 12/21/2018 8:53 AM [facility] RDW-CV 14.0 12.1 - 14.9 % 12/21/2018 8:53 AM [facility] MPV 11.5 9.4 - 12.9 fl 12/21/2018 8:53 AM T [facility] Neutrophils % 69.5 44.0 - 73.0 % 12/21/2018 8:53 AM [facility] Lymphocytes % 20.4 20.0 - 43.0 % 12/21/2018 8:53 AM [facility] Monocytes % 6.0 5.0 - 13.0 % 12/21/2018 8:53 AM T [facility] Eosinophils % 1.0 0.0 - 6.0 % 12/21/2018 8:53 AM CDT [facility] Basophils % 0.5 0.0 - 2.0 % 12/21/2018 8:53 AM CDT [facility] Immature Granulocytes 2.6(H) 0 - 1 % 12/21/2018 8:53 AM T [facility] Neutrophil Absolute 7.33(H) 2.01 - 7.14 x10E9/L 12/21/2018 8:53 AM CDT [facility] Lymphocytes Absolute 2.15 1.07 - 3.94 x10E9/L 12/21/2018 8:53 AM CDT [facility] Monocytes Absolute 0.63 0.26 - 1.07 x10E9/L 12/21/2018 8:53 AM CDT [facility] Eosinophils Absolute 0.11 0 - 0.47 x10E9/L 12/21/2018 8:53 AM CDT [facility] Basophils Absolute 0.05 0 - 0.08 x10E9/L 12/21/2018 8:53 AM T [facility] Immature Granulocytes Absolute 0.27(H) 0.00 - 0.06 x10E9/L 12/21/2018 8:53 AM CDT [facility] nRBC Auto 0 /100 WBC 12/21/2018 8:53 AM CDT [facility] Blood BLOOD SPECIMEN / Unknown Lab Venipuncture / Unknown 12/21/2018 8:39 AM CDT 12/21/2018 8:45 AM CDT Deepa JOSHI LAB - HEMATOL OGY ORDERABLES Performing Organization Address [facility] Co de Phone Number [facility] [address] [place] [place] [phone] * GLUCOSE - POINT OF CARE (12/21/2018 6:15 AM CDT) Glucose WB/POC 86 70 - 106 mg/dL 12/21/2018 6:27 AM CDT [facility] Specimen Type Arterial/C apillary 12/21/2018 6:27 AM CDT [facility] Comment:(3) Treated per Prot ocol Blood BLOOD SPECIMEN / Unknown 12/21/2018 6:15 AM CDT 12/21/2018 6:27 AM CDT Gely Medina MD LAB - POINT OF CARE ORDERABLES Performing Organization Address [facility]/ZIP Co de Phone Number [facility] [address] [place] [place], [place] [phone] * GLUCOSE - POINT OF CARE (12/20/2018 9:48 PM CDT) Glucose WB/POC 102 70 - 106 mg/dL 12/21/2018 6:54 AM CDT [facility] Specimen Type Arterial/C apillary 12/21/2018 6:54 AM CDT [facility] Comment:(3) Treated per Prot ocol Blood BLOOD SPECIMEN / Unknown 12/20/2018 9:48 PM CDT 12/21/2018 6:54 AM CDT Gely Medina MD LAB - POINT OF CARE ORDERABLES Performing Organization Address City/[facility] Co de Phone Number [facility] [address] [place] [phone] * (ABNORMAL) GLUCOSE - POINT OF CARE (12/20/2018 7:17 PM CDT) [facility] Glucose WB/POC 123(H) 70 - 106 mg/dL 12/20/2018 9:13 PM CDT [facility] Specimen Type Arterial/C apillary 12/20/2018 9:13 PM CDT [facility] Blood BLOOD SPECIMEN / Unknown 12/20/2018 7:17 PM CDT 12/20/2018 9:13 PM CDT Gely Medina MD LAB - POINT OF CARE ORDERABLES Performing Organization Address [facility] Co de Phone Number [facility] [address] [place] [phone] * (ABNORMAL) CBC W AUTO DIFFERENTIAL (12/20/2018 4:43 PM CDT) [facility] WBC 10.3 4.4 - 10.7 x10E9/L 12/20/2018 4:55 PM CDT [facility] WBC Corrected 12/20/2018 4:55 PM CDT [facility] RBC 3.87 3.80 - 5.20 x10E12/L 12/20/2018 4:55 PM CDT [facility] Hemoglobin 11.9(L) 12.0 - 15.6 gm/dL 12/20/2018 4:55 PM CDT [facility] Hematocrit 35.0(L) 35.9 - 45.5 % 12/20/2018 4:55 PM CDT [facility] MCV 90.4 80.7 - 98.3 fl 12/20/2018 4:55 [facility] MCH 30.7 26.7 - 34.0 pg 12/20/2018 4:55 PM [facility] MCHC 34.0 30.8 - 35.9 gm/dL 12/20/2018 4:55 PM [facility] Platelet Count 210 153 - 416 x10E9/L 12/20/2018 4:55 PM [facility] RDW-CV 14.1 12.1 - 14.9 % 12/20/2018 4:55 PM [facility] MPV 11.7 9.4 - 12.9 fl 12/20/2018 4:55 PM [facility] Neutrophils % 72.9 44.0 - 73.0 % 12/20/2018 4:55 PM [facility] Lymphocytes % 19.2(L) 20.0 - 43.0 % 12/20/2018 4:55 PM [facility] Monocytes % 5.1 5.0 - 13.0 % 12/20/2018 4:55 PM [facility] Eosinophils % 0.6 0.0 - 6.0 % 12/20/2018 4:55 PM [facility] Basophils % 0.2 0.0 - 2.0 % 12/20/2018 4:55 PM [facility] Immature Granulocytes 2.0(H) 0 - 1 % 12/20/2018 4:55 PM [facility] Neutrophil Absolute 7.53(H) 2.01 - 7.14 x10E9/L 12/20/2018 4:55 PM [facility] Lymphocytes Absolute 1.98 1.07 - 3.94 x10E9/L 12/20/2018 4:55 PM [facility] Monocytes Absolute 0.53 0.26 - 1.07 x10E9/L 12/20/2018 4:55 PM [facility] Eosinophils Absolute 0.06 0 - 0.47 x10E9/L 12/20/2018 4:55 PM [facility] Basophils Absolute 0.02 0 - 0.08 x10E9/L 12/20/2018 4:55 PM [facility] Immature Granulocytes Absolute 0.21(H) 0.00 - 0.06 x10E9/L 12/20/2018 4:55 PM CDT [facility] nRBC Auto 0 /100 WBC 12/20/2018 4:55 PM CDT [facility] Blood BLOOD SPECIMEN / Unknown Lab Venipuncture / Unknown 12/20/2018 4:43 PM CDT 12/20/2018 4:52 PM CDT Edilma Nguyen MD LAB - HEMATOLOGY ORD ERABLES Performing Organization Address City/[facility]/ZIP Co de Phone Number [facility] [address] [place] [phone] * (ABNORMAL) GLUCOSE - POINT OF CARE (12/20/2018 2:46 PM CDT) Glucose WB/POC 116(H) 70 - 106 mg/dL 12/20/2018 3:01 PM CDT [facility] Specimen Type Arterial/C apillary 12/20/2018 3:01 PM CDT [facility] Blood BLOOD SPECIMEN / Unknown 12/20/2018 2:46 PM CDT 12/20/2018 3:01 PM CDT Gely Medina MD LAB - POINT OF CARE ORDERABLES Performing Organization Address [facility] Co de Phone Number [facility] [address] [place], [place] [phone] * (ABNORMAL) GLUCOSE - POINT OF CARE (12/20/2018 12:52 PM CDT) Glucose WB/POC 118(H) 70 - 106 mg/dL 12/20/2018 2:42 PM CDT [facility] Specimen Type Arterial/C apillary 12/20/2018 2:42 PM CDT [facility] Blood BLOOD SPECIMEN / Unknown 12/20/2018 12:52 PM CDT 12/20/2018 2:42 PM CDT Gely Medina MD LAB - POINT OF CARE ORDERABLES Performing Organization Address City/[facility]/ZIP Co de Phone Number [facility] [address] [place] [phone] * GLUCOSE - POINT OF CARE (12/20/2018 11:18 AM CDT) Glucose WB/POC 77 70 - 106 mg/dL 12/20/2018 11:28 AM CDT [facility] Specimen Type Arterial/C apillary 12/20/2018 11:28 AM CDT [facility] Blood BLOOD SPECIMEN / Unknown 12/20/2018 11:18 AM CDT 12/20/2018 11:28 AM CDT Gely Medina MD LAB - POINT OF CARE ORDERABLES [facility] [address] [place] [address] * PREPARE (CROSSMATCH) RBC UNIT(S), 2 Units (12/20/2018 6:45 AM CDT) Product Code [id number] [facility] Unit Donor # [id number] S [facility] ABO Donor Type B [facility] Rh Type Unit POS [facility] Unit Status Ret'd [facility] ABO Rh Type Unit BPOS [facility] Donor Unit Expiration Date [facility] Blood Type Barcode 7300 [facility] Product Code [id number] [facility] Unit Donor # [id number] S [facility] ABO Donor Type B [facility] Rh Type Unit POS [facility] Unit Status Ret'd [facility] ABO Rh Type Unit BPOS [facility] Donor Unit Expiration Date [facility] Blood Type Barcode 7300 [facility] Product Code [id number] [facility] Unit Donor # [id number] S [facility] ABO Donor Type B [facility] Rh Type Unit POS [facility] Unit Status Transfd [facility] ABO Rh Type Unit BPOS [facility] Donor Unit Expiration Date [facility] Blood Type Barcode 7300 [facility] Product Code [id number] [facility] Unit Donor # [id number] S [facility] ABO Donor Type B [facility] Rh Type Unit POS [facility] Unit Status Ret'd [facility] ABO Rh Type Unit BPOS [facility] Donor Unit Expiration Date [id number] [facility] Blood Type Barcode 7300 [facility] Blood Bank BLOOD SPECIMEN / Unknown 12/20/2018 6:45 AM CDT Kelley Rocha MD LAB - BLOOD BANK ORD ERABLES Performing Organization Address City/[facility] Co de Phone Number [facility] [address] [place] [address] * TYPE + SCREEN PANEL (12/20/2018 5:42 AM CDT) ABO B 12/20/2018 6:24 AM CDT [facility] Rh Type Positive 12/20/2018 6:24 AM CDT [facility] Comment:History checked. Antibody Screen Negative 12/20/2018 6:24 AM CDT [facility] Blood Bank BLOOD SPECIMEN / Unknown Lab Venipuncture / Unknown 12/20/2018 5:42 AM CDT 12/20/2018 5:49 AM CDT Kelley Rocha MD LAB - BLOOD BANK ORD ERABLES Performing Organization Address City/[facility]/ZIP Co de Phone Number [facility] [address] [place] [address] * GLUCOSE - POINT OF CARE (12/20/2018 3:57 AM CDT) Glucose WB/POC 91 70 - 106 mg/dL 12/20/2018 4:10 AM CDT [facility] Specimen Type Arterial/C apillary 12/20/2018 4:10 AM CDT [facility] Comment:(3) Treated per Prot ocol Blood BLOOD SPECIMEN / Unknown 12/20/2018 3:57 AM CDT 12/20/2018 4:10 AM CDT Gely Medina MD LAB - POINT OF CARE ORDERABLES Performing Organization Address [facility] Co de Phone Number [facility] [address] [place] [phone] * (ABNORMAL) GLUCOSE - POINT OF CARE (12/19/2018 9:12 PM CDT) Glucose WB/POC 109(H) 70 - 106 mg/dL 12/19/2018 9:23 PM CDT [facility] Specimen Type Arterial/C apillary 12/19/2018 9:23 PM CDT [facility] Comment:(3) Treated per Prot ocol Blood BLOOD SPECIMEN / Unknown 12/19/2018 9:12 PM CDT 12/19/2018 9:23 PM CDT Gely Medina MD LAB - POINT OF CARE ORDERABLES Performing Organization Address [facility] de Phone Number [facility] [address] [place] [phone] * (ABNORMAL) GLUCOSE - POINT OF CARE (12/19/2018 4:21 PM CDT) Glucose WB/POC 126(H) 70 - 106 mg/dL 12/19/2018 4:28 PM CDT [facility] Specimen Type Arterial/C apillary 12/19/2018 4:28 PM CDT [facility] Blood BLOOD SPECIMEN / Unknown 12/19/2018 4:21 PM CDT 12/19/2018 4:28 PM CDT Gely Medina MD LAB - POINT OF CARE ORDERABLES Performing Organization Address [facility] Co de Phone Number [facility] [address] [place] [phone] * (ABNORMAL) GLUCOSE - POINT OF CARE (12/19/2018 12:18 PM CDT) Glucose WB/POC 114(H) 70 - 106 mg/dL 12/19/2018 12:25 PM CDT [facility] Specimen Type Venous 12/19/2018 12:25 PM CDT [facility] Blood BLOOD SPECIMEN / Unknown 12/19/2018 12:18 PM CDT 12/19/2018 12:25 PM CDT Gely Medina MD LAB - POINT OF CARE ORDERABLES Performing Organization Address City/[facility]/ZIP Co de Phone Number [facility] [address] [place] [phone] * (ABNORMAL) GLUCOSE - POINT OF CARE (12/19/2018 10:48 AM CDT) Glucose WB/POC 68(L) 70 - 106 mg/dL 12/19/2018 11:00 AM CDT [facility] Specimen Type Venous 12/19/2018 11:00 AM CDT [facility] Blood BLOOD SPECIMEN / Unknown 12/19/2018 10:48 AM CDT 12/19/2018 11:00 AM CDT Gely Medina MD LAB - POINT OF CARE ORDERABLES Performing Organization Address [facility]/ZIP Co de Phone Number [facility] [address] [place] [phone] * GLUCOSE - POINT OF CARE (12/19/2018 6:39 AM CDT) Glucose WB/POC 87 70 - 106 mg/dL 12/19/2018 9:23 PM CDT [facility] Specimen Type Arterial/C apillary 12/19/2018 9:23 PM CDT [facility] Blood BLOOD SPECIMEN / Unknown 12/19/2018 6:39 AM CDT 12/19/2018 9:23 PM CDT Gely Medina MD LAB - POINT OF CARE ORDERABLES [facility] [address] [place] [phone] * (ABNORMAL) GLUCOSE - POINT OF CARE (12/18/2018 6:15 PM CDT) Glucose WB/POC 145(H) 70 - 106 mg/dL 12/18/2018 8:30 PM CDT [facility] Specimen Type Arterial/C apillary 12/18/2018 8:30 PM CDT [facility] Blood BLOOD SPECIMEN / Unknown 12/18/2018 6:15 PM CDT 12/18/2018 8:30 PM CDT Gely Medina MD LAB - POINT OF CARE ORDERABLES [facility] [address] [phone] * NONSTRESS TEST (12/18/2018 4:33 PM CDT) Narrative Isidoro Deepatrini Vidal APRN-[employer] - 12/18/2018 4:33 PM CDT Charlene Storm [...] - 106 mg/dL 12/18/2018 3:05 PM CDT [facility] Specimen Type Arterial/C apillary 12/18/2018 3:05 PM CDT [facility] Blood BLOOD SPECIMEN / Unknown 12/18/2018 2:41 PM CDT 12/18/2018 3:05 PM CDT Gely Medina MD LAB - POINT OF CARE ORDERABLES Performing Organization Address [facility] Co de Phone Number [facility] [address] [place] [address] [phone] * (ABNORMAL) GLUCOSE - POINT OF CARE (12/18/2018 8:42 AM CDT) Glucose WB/POC 121(H) 70 - 106 mg/dL 12/18/2018 8:49 AM CDT [facility] Specimen Type Arterial/C apillary 12/18/2018 8:49 AM CDT [facility] Blood BLOOD SPECIMEN / Unknown 12/18/2018 8:42 AM CDT 12/18/2018 8:49 AM CDT Gely Medina MD LAB - POINT OF CARE ORDERABLES Performing Organization Address [facility] Co de Phone Number [facility] [address] [place] [phone] * GLUCOSE - POINT OF CARE (12/18/2018 5:48 AM CDT) Glucose WB/POC 82 70 - 106 mg/dL 12/18/2018 5:58 AM CDT [facility] Specimen Type Arterial/C apillary 12/18/2018 5:58 AM CDT [facility] Comment:(3) Treated per Prot ocol Blood BLOOD SPECIMEN / Unknown 12/18/2018 5:48 AM CDT 12/18/2018 5:58 AM CDT Gely Medina MD LAB - POINT OF CARE ORDERABLES Performing Organization Address [facility] Co de Phone Number [facility] [address] [place] [phone] * (ABNORMAL) GLUCOSE - POINT OF CARE (12/17/2018 8:42 PM CDT) Glucose WB/POC 121(H) 70 - 106 mg/dL 12/17/2018 8:56 PM CDT [facility] Specimen Type Arterial/C apillary 12/17/2018 8:56 PM CDT [facility] Blood BLOOD SPECIMEN / Unknown 12/17/2018 8:42 PM CDT 12/17/2018 8:56 PM CDT Gely Medina MD LAB - POINT OF CARE ORDERABLES Performing Organization Address [facility] Co de Phone Number [facility] [address] [place] [address] * (ABNORMAL) GLUCOSE - POINT OF CARE (12/17/2018 3:21 PM CDT) Glucose WB/POC 110(H) 70 - 106 mg/dL 12/17/2018 3:30 PM CDT [facility] Specimen Type Venous 12/17/2018 3:30 PM CDT [facility] Blood BLOOD SPECIMEN / Unknown 12/17/2018 3:21 PM CDT 12/17/2018 3:29 PM CDT Gely Medina MD LAB - POINT OF CARE ORDERABLES Performing Organization Address [facility] de Phone Number [facility] [address] [place] [address] * NONSTRESS TEST (12/17/2018 1:18 PM CDT) [...] None Mary Lion RN Non-Stress Test (NST) Cati Mathews [id number] 12/17/2018 10:54 PM Indications: Patient Active Problem [...] - 106 mg/dL 12/17/2018 8:53 AM CDT [facility] Specimen Type Venous 12/17/2018 8:53 AM CDT [facility] Blood BLOOD SPECIMEN / Unknown 12/17/2018 8:39 AM CDT 12/17/2018 8:53 AM CDT Gely Medina MD LAB - POINT OF CARE ORDERABLES [facility] [address] [place] [address] * (ABNORMAL) GLUCOSE - POINT OF CARE (12/17/2018 7:12 AM CDT) Glucose WB/POC 67(L) 70 - 106 mg/dL 12/17/2018 7:32 AM CDT [facility] Specimen Type Venous 12/17/2018 7:32 AM CDT [facility] Blood BLOOD SPECIMEN / Unknown 12/17/2018 7:12 AM CDT 12/17/2018 7:32 AM CDT Gely Medina MD LAB - POINT OF CARE ORDERABLES [facility] [address] [place] [address] * GLUCOSE - POINT OF CARE (12/17/2018 5:59 AM CDT) Glucose WB/POC 73 70 - 106 mg/dL 12/17/2018 6:16 AM CDT [facility] Specimen Type Arterial/C apillary 12/17/2018 6:16 AM CDT [facility] Blood BLOOD SPECIMEN / Unknown 12/17/2018 5:59 AM CDT 12/17/2018 6:16 AM CDT Gely Medina MD LAB - POINT OF CARE ORDERABLES Performing Organization Address City/[facility]/ZIP Co de Phone Number [facility] [address] [place] [address] * TYPE + SCREEN PANEL (12/17/2018 5:40 AM CDT) ABO B 12/17/2018 6:30 AM CDT [facility] Rh Type Positive 12/17/2018 6:30 AM CDT [facility] Comment:History checked. Antibody Screen Negative 12/17/2018 6:30 AM CDT [facility] Blood Bank BLOOD SPECIMEN / Unknown Lab Venipuncture / Unknown 12/17/2018 5:40 AM CDT 12/17/2018 5:57 AM CDT Cheryl Tello MD LAB - BLOOD BANK ORD ERABLES [facility] [address] [place] [address] * PREPARE (CROSSMATCH) RBC UNIT(S), 2 Units (12/17/2018 12:30 AM CDT) Product Code [id number] [facility] Unit Donor # [id number] S [facility] ABO Donor Type B [facility] Rh Type Unit POS [facility] Unit Status Ret'd [facility] ABO Rh Type Unit BPOS [facility] Donor Unit Expiration Date [facility] Blood Type Barcode 7300 [facility] Product Code [id number] [facility] Unit Donor # [id number] S [facility] ABO Donor Type B [facility] Rh Type Unit POS [facility] Unit Status Ret'd [facility] ABO Rh Type Unit BPOS [facility] Donor Unit Expiration Date [facility] Blood Type Barcode 7300 [facility] Product Code [id number] [facility] Unit Donor # [id number] S [facility] ABO Donor Type B [facility] Rh Type Unit POS [facility] Unit Status Ret'd [facility] ABO Rh Type Unit BPOS [facility] Donor Unit Expiration Date [facility] Blood Type Barcode 7300 [facility] Product Code [id number] [facility] Unit Donor # [id number] S [facility] ABO Donor Type B [facility] Rh Type Unit POS [facility] Unit Status Ret'd [facility] ABO Rh Type Unit BPOS [facility] Donor Unit Expiration Date [facility] Blood Type Barcode 7300 [facility] Blood Bank BLOOD SPECIMEN / Unknown 12/17/2018 12:30 AM CDT Karine Terry MD LAB - BLOOD BANK ORD ERABLES [facility] [address] [phone] * (ABNORMAL) GLUCOSE - POINT OF CARE (12/16/2018 8:03 PM CDT) Glucose WB/POC 125(H) 70 - 106 mg/dL 12/16/2018 8:27 PM CDT [facility] Specimen Type Arterial/C apillary 12/16/2018 8:27 PM CDT [facility] Blood BLOOD SPECIMEN / Unknown 12/16/2018 8:03 PM CDT 12/16/2018 8:27 PM CDT Gely Medina MD LAB - POINT OF CARE ORDERABLES [facility] [address] [place] [address] * NONSTRESS TEST (12/16/2018 7:03 PM CDT) [...] Lynda Pat RN Non-Stress Test (NST) Cait Bárbara Reid [id number] 12/17/2018 7:52 AM Indications: Complete previa Interpretation: Fetus A: Baseline: ??145 beats/minute Reactive Variability: Moderate Contractions: ??None Decelerations: ??None Recs: Reassuring, continue monitoring as indicated Sara Duran MD Lianne Flores MD OB GYNE ORDERABLES * (ABNORMAL) GLUCOSE - POINT OF CARE (12/16/2018 2:59 PM CDT) Glucose WB/POC 124(H) 70 - 106 mg/dL 12/16/2018 3:06 PM CDT [facility] Specimen Type Arterial/C apillary 12/16/2018 3:06 PM CDT [facility] Blood BLOOD SPECIMEN / Unknown 12/16/2018 2:59 PM CDT 12/16/2018 3:06 PM CDT Gely Medina MD LAB - POINT OF CARE ORDERABLES [facility] [address] [place] [address] * NONSTRESS TEST (12/16/2018 2:05 PM CDT) Narrative Deepa Chaudhry APRN-[employer] - 12/16/2018 2:05 PM CDT Lynda Pat [...] - 106 mg/dL 12/16/2018 3:06 PM CDT [facility] Specimen Type Arterial/C apillary 12/16/2018 3:06 PM CDT [facility] Blood BLOOD SPECIMEN / Unknown 12/16/2018 8:14 AM CDT 12/16/2018 3:06 PM CDT Gely Medina MD LAB - POINT OF CARE ORDERABLES Performing Organization Address [facility]/ZIP Co de Phone Number [facility] [address] [place] [phone] * GLUCOSE - POINT OF CARE (12/16/2018 6:03 AM CDT) Glucose WB/POC 74 70 - 106 mg/dL 12/16/2018 8:33 AM CDT [facility] Specimen Type Arterial/C apillary 12/16/2018 8:33 AM CDT [facility] Blood BLOOD SPECIMEN / Unknown 12/16/2018 6:03 AM CDT 12/16/2018 8:33 AM CDT Gely Medina MD LAB - POINT OF CARE ORDERABLES Performing Organization Address [facility] Co de Phone Number [facility] [address] [place] [address] [phone] * (ABNORMAL) GLUCOSE - POINT OF CARE (12/15/2018 8:47 PM CDT) Glucose WB/POC 166(H) 70 - 106 mg/dL 12/15/2018 10:36 PM CDT [facility] Specimen Type Arterial/C apillary 12/15/2018 10:36 PM CDT [facility] Blood BLOOD SPECIMEN / Unknown 12/15/2018 8:47 PM CDT 12/15/2018 10:36 PM CDT Gely Medina MD LAB - POINT OF CARE ORDERABLES Performing Organization Address [facility] Co de Phone Number [facility] [address] [place] [phone] * (ABNORMAL) GLUCOSE - POINT OF CARE (12/15/2018 6:43 PM CDT) Glucose WB/POC 146(H) 70 - 106 mg/dL 12/15/2018 6:53 PM CDT [facility] Specimen Type Arterial/C apillary 12/15/2018 6:53 PM CDT [facility] Blood BLOOD SPECIMEN / Unknown 12/15/2018 6:43 PM CDT 12/15/2018 6:53 PM CDT eGly Medina MD LAB - POINT OF CARE ORDERABLES [facility] [address] [place] [address] * NONSTRESS TEST (12/15/2018 11:47 AM CDT) Narrative Deepa Chaudhry APRN-[employer] - 12/15/2018 11:47 AM CDT Vijaya Ashton MD ? 12/15/2018 ??6:00 AM Name: ??Cait Mathews Date of : ??1995 Today's Date: ??12/14/2018 ??[id number] ?NST RESULTS (HERNADEZ) OBJECTIVE FINDINGS Temp: 98.2 [...] R1 Addendum Non-Stress Test (NST) Cait Mathews [id number] 12/15/2018 5:59 AM Indications: Placenta Previa, GDM, cHTN Interpretation: Baseline: ??125 beats/minute reactive Variability: Moderate Contractions: ??none Decelerations: ??none Vijaya Ashton MD Lianne Flores MD OB GYNE ORDERABLES * (ABNORMAL) GLUCOSE - POINT OF CARE (12/15/2018 8:30 AM CDT) Glucose WB/POC 119(H) 70 - 106 mg/dL 12/15/2018 8:56 AM CDT [facility] Specimen Type Arterial/C apillary 12/15/2018 8:56 AM CDT [facility] Blood BLOOD SPECIMEN / Unknown 12/15/2018 8:30 AM CDT 12/15/2018 8:56 AM CDT Gely Medina MD LAB - POINT OF CARE ORDERABLES Performing Organization Address [facility] Co de Phone Number [facility] [address] [place] [phone] * GLUCOSE - POINT OF CARE (12/15/2018 5:48 AM CDT) Glucose WB/POC 76 70 - 106 mg/dL 12/15/2018 7:29 AM CDT [facility] Specimen Type Arterial/C apillary 12/15/2018 7:29 AM CDT [facility] Blood BLOOD SPECIMEN / Unknown 12/15/2018 5:48 AM CDT 12/15/2018 7:29 AM CDT Gely Medina MD LAB - POINT OF CARE ORDERABLES Performing Organization Address [facility] de Phone Number [facility] [address] [place] [phone] * (ABNORMAL) COMPREHENSIVE METABOLIC PANEL (12/15/2018 5:06 AM CDT) Glucose 85 74 - 106 mg/dL 12/15/2018 6:04 AM T [facility] Sodium 138 136 - 145 mmol/L 12/15/2018 6:04 AM CDT [facility] Potassium 4.1 3.5 - 5.1 mmol/L 12/15/2018 6:04 AM T [facility] Chloride 105 98 - 107 mmol/L 12/15/2018 6:04 AM T [facility] CO2 23 23 - 31 mmol/L 12/15/2018 6:04 AM CDT [facility] Calcium 9.7 8.4 - 10.2 mg/dL 12/15/2018 6:04 AM T [facility] Anion Gap 10 8 - 16 mmol/L 12/15/2018 6:04 AM T [facility] BUN 7 7 - 18.7 mg/dL 12/15/2018 6:04 AM T [facility] Creatinine 0.50(L) 0.55 - 1.02 mg/dL 12/15/2018 6:04 AM CDT [facility] Alkaline Phosphatase 169(H) 40 - 150 U/L 12/15/2018 6:04 AM CDT [facility] ALT 14 13 - 61 U/L 12/15/2018 6:04 AM CDT [facility] AST 12 5 - 34 U/L 12/15/2018 6:04 AM CDT [facility] Protein Total 6.0(L) 6.4 - 8.3 gm/dL 12/15/2018 6:04 AM CDT [facility] Albumin 3.0(L) 3.5 - 5.2 gm/dL 12/15/2018 6:04 AM CDT [facility] Bilirubin Total 0.2 0.2 - 1.0 mg/dL 12/15/2018 6:04 AM CDT [facility] eGFR by MDRD >60 >60 mL/min/1.7 3m2 12/15/2018 6:04 AM CDT [facility] eGFR by MDRD >60 >60 mL/min/1.7 3m2 12/15/2018 6:04 AM CDT [facility] Blood BLOOD SPECIMEN / Unknown Lab Venipuncture / Unknown 12/15/2018 5:06 AM CDT 12/15/2018 5:21 AM CDT Perla Jansen MD LAB - CHEMISTRY SU [facility] Organization Address City/State/[facility] Co de Phone Number [facility] [address] [place] [address] * (ABNORMAL) CBC W/O DIFFERENTIAL (12/15/2018 5:06 AM CDT) [facility] WBC 9.1 4.4 - 10.7 x10E9/L 12/15/2018 5:31 AM CDT [facility] RBC 3.84 3.80 - 5.20 x10E12/L 12/15/2018 5:31 AM CDT [facility] Hemoglobin 11.0(L) 12.0 - 15.6 gm/dL 12/15/2018 5:31 AM CDT [facility] Hematocrit 35.3(L) 35.9 - 45.5 % 12/15/2018 5:31 AM CDT [facility] MCV 91.9 80.7 - 98.3 fl 12/15/2018 5:31 AM CDT [facility] MCH 28.6 26.7 - 34.0 pg 12/15/2018 5:31 AM T [facility] MCHC 31.2 30.8 - 35.9 gm/dL 12/15/2018 5:31 AM T [facility] Platelet Count 176 153 - 416 x10E9/L 12/15/2018 5:31 AM T [facility] RDW-CV 13.9 12.1 - 14.9 % 12/15/2018 5:31 AM T [facility] MPV 11.7 9.4 - 12.9 fl 12/15/2018 5:31 AM T [facility] Blood BLOOD SPECIMEN / Unknown Lab Venipuncture / Unknown 12/15/2018 5:06 AM CDT 12/15/2018 5:21 AM CDT Perla Jansen MD LAB - HEMATOLOGY ORD ERABLES Performing Organization Address City/[facility]/ZIP Co de Phone Number [facility] [address] [place] [address] [phone] * (ABNORMAL) GLUCOSE - POINT OF CARE (12/14/2018 9:13 PM CDT) Glucose WB/POC 107(H) 70 - 106 mg/dL 12/15/2018 7:29 AM CDT [facility] Specimen Type Arterial/C apillary 12/15/2018 7:29 AM T [facility] Blood BLOOD SPECIMEN / Unknown 12/14/2018 9:13 PM CDT 12/15/2018 7:29 AM CDT Gely Medina MD LAB - POINT OF CARE ORDERABLES Performing Organization Address [facility]/ZIP Co de Phone Number [facility] [address] [place] [address] [phone] * (ABNORMAL) GLUCOSE - POINT OF CARE (12/14/2018 5:48 PM CDT) Glucose WB/POC 112(H) 70 - 106 mg/dL 12/14/2018 5:56 PM CDT [facility] Specimen Type Arterial/C apillary 12/14/2018 5:56 PM CDT [facility] Blood BLOOD SPECIMEN / Unknown 12/14/2018 5:48 PM CDT 12/14/2018 5:56 PM CDT Gely Medina MD LAB - POINT OF CARE ORDERABLES [facility] [address] [place] [address] * NONSTRESS TEST (12/14/2018 12:41 PM CDT) [...] LPN R1 Addendum Non-Stress Test (NST) Cait Bárbara FriedmanMathews [id number] 12/14/2018 6:06 AM Indications: Placenta Previa Interpretation: Baseline: ??140 beats/minute reactive Variability: Moderate Contractions: ??none Decelerations: ??none Vijaya Ashton MD Lianne Flores MD OB GYNE ORDERABLES * (ABNORMAL) GLUCOSE - POINT OF CARE (12/14/2018 12:17 PM CDT) Glucose WB/POC 176(H) 70 - 106 mg/dL 12/14/2018 12:23 PM CDT [facility] Specimen Type Arterial/C apillary 12/14/2018 12:23 PM CDT [facility] Blood BLOOD SPECIMEN / Unknown 12/14/2018 12:17 PM CDT 12/14/2018 12:23 PM CDT Gely Medina MD LAB - POINT OF CARE ORDERABLES Performing Organization Address [facility]/State/[facility] Co de Phone Number [facility] [address] [place], [place] [phone] * SONOGRAM - COMPLETE (12/14/2018 9:30 AM CDT) Anatomical Region Laterality Modality Other 12/14/2018 9:30 AM CDT Narrative 12/14/2018 2:09 PM CDT ? [facility] ? [facility] ?PHONE: ??FAX: Pat. Name: ?CAIT MATHEWS Pat. No: ?[id number] Study Date: ?? 12/14/2018 ??9:30am , Age: ? 1995, 23 Pregnancies: ?? 2, Para 1 Height: ? 60 in Weight: ? 180 lb LMP: ?Unknown GA by Base: ?? 35w0d ?? ULISES: 01/18/2019 GA by US: ? 35w0d ?? ULISES: 01/18/2019 GA Selected: ??35w0d (From [facility]) ULISES: ?01/18/2019 Referring MD: MD Hunter, [facility] Spool Maker: ??Anupama Cantu RDMS CPT4: ? [id number] BMI: ?35.15 Room: ? 558 Hist/Ind: ? Vaginal bleeding ?Tobacco use ?Delivery at 34 wk (severe pre-eclampsia, malpresentation, IUGR) ?Obesity ?Placenta previa ?Completed anatomy survey MEASUREMENTS & AGE ? GROWTH EVALUATION Measurement ??GA ? Range ? Srce %for GA Ratios ----- ---- ------- BPD ??8.8 cm 35w3d (94v4o-49r6v) Hadl BPD 64% FL/BPD 0.73 (0.71 - 0.87) HC ??32.9 cm 37w2d (46l6d-11y5l) Hadl HC ??74% FL/AC ??0.19 (0.20 - 0.24* AC ??34.2 cm 38w1d (04h0j-64y1s) Hadl AC ??>99 HC/AC ??0.96 (0.93 - 1.12) FL ?? 6.4 cm 33w0d (27o8x-72k3f) Hadl FL ??4% CI ? 0.75 (0.70 - 0.86) HL ?? 5.7 cm 32w6d (41b7t-25l7u) [place] HL ??14% GA for sonogram 35w0d (35q3i-55s7k) ?? Weight Estimate: based on (BPD,HC,AC,FL) Hadlock [...] ?<Electronic Signature> ??12/14/2018 02:04pm Vijaya Ashton MD [facility] ORDERABLES * GLUCOSE - POINT OF CARE (12/14/2018 5:03 AM CDT) [facility] Glucose WB/POC 75 70 - 106 mg/dL 12/14/2018 5:16 AM CDT [facility] Specimen Type Arterial/C apillary 12/14/2018 5:16 AM CDT [facility] Blood BLOOD SPECIMEN / Unknown 12/14/2018 5:03 AM CDT 12/14/2018 5:16 AM CDT Gely Medina MD LAB - POINT OF CARE ORDERABLES Performing Organization Address [facility]/ZIP Co de Phone Number [facility] [address] [place] [address] * PREPARE (CROSSMATCH) RBC UNIT(S), 2 Units (12/14/2018 2:15 AM CDT) Pathologist [facility] Product Code [id number] [facility] Unit Donor # [id number] S [facility] ABO Donor Type B [facility] Rh Type Unit POS [facility] B[facility] Unit Status Ret'd [facility] LAB ABO Rh Type Unit BPOS [facility] Donor Unit Expiration [facility] Blood Type Barcode 7300 [facility] Product Code [id number] [facility] Unit Donor # [id number] S [facility] ABO Donor Type B [facility] Rh Type Unit POS [facility] B[facility] Unit Status Ret'd [facility] ABO Rh Type Unit BPOS [facility] Donor Unit Expiration Date [facility] Blood Type Barcode 7300 [facility] Blood Bank BLOOD SPECIMEN / Unknown 12/14/2018 2:15 AM CDT Reema Moreno MD LAB - BLOOD BANK ORDERABLES Performing Organization Address City/[facility]/ZIP Co de Phone Number [facility] [address] [phone] * (ABNORMAL) CBC W AUTO DIFFERENTIAL (12/14/2018 12:11 AM CDT) Pathologist [facility] WBC 8.2 4.4 - 10.7 x10E9/L 12/14/2018 12:21 AM CDT [facility] WBC Corrected x10E9/L 12/14/2018 12:21 AM CDT [facility] RBC 4.01 3.80 - 5.20 x10E12/L 12/14/2018 12:21 AM [facility] Hemoglobin 12.3 12.0 - 15.6 gm/dL 12/14/2018 12:21 AM [facility] Hematocrit 36.9 35.9 - 45.5 % 12/14/2018 12:21 AM [facility] MCV 92.0 80.7 - 98.3 fl 12/14/2018 12:21 AM [facility] MCH 30.7 26.7 - 34.0 pg 12/14/2018 12:21 AM [facility] MCHC 33.3 30.8 - 35.9 gm/dL 12/14/2018 12:21 AM [facility] Platelet Count 194 153 - 416 x10E9/L 12/14/2018 12:21 AM [facility] RDW-CV 14.3 12.1 - 14.9 % 12/14/2018 12:21 AM [facility] MPV 12.2 9.4 - 12.9 fl 12/14/2018 12:21 AM [facility] Neutrophils % 61.1 44.0 - 73.0 % 12/14/2018 12:21 AM [facility] Lymphocytes % 27.0 20.0 - 43.0 % 12/14/2018 12:21 AM [facility] Monocytes % 9.3 5.0 - 13.0 % 12/14/2018 12:21 AM [facility] Eosinophils % 1.0 0.0 - 6.0 % 12/14/2018 12:21 AM [facility] Basophils % 0.4 0.0 - 2.0 % 12/14/2018 12:21 AM [facility] Immature Granulocytes 1.2(H) 0 - 1 % 12/14/2018 12:21 AM [facility] Neutrophil Absolute 5.00 2.01 - 7.14 x10E9/L 12/14/2018 12:21 AM [facility] Lymphocytes Absolute 2.21 1.07 - 3.94 x10E9/L 12/14/2018 12:21 AM [facility] Monocytes Absolute 0.76 0.26 - 1.07 x10E9/L 12/14/2018 12:21 AM CDT [facility] Eosinophils Absolute 0.08 0 - 0.47 x10E9/L 12/14/2018 12:21 AM CDT [facility] Basophils Absolute 0.03 0 - 0.08 x10E9/L 12/14/2018 12:21 AM T [facility] Immature Granulocytes Absolute 0.10(H) 0.00 - 0.06 x10E9/L 12/14/2018 12:21 AM CDT [facility] nRBC Auto 0 /100 WBC 12/14/2018 12:21 AM CDT [facility] Blood BLOOD SPECIMEN / Unknown Venipuncture / Unknown 12/14/2018 12:11 AM CDT 12/14/2018 12:15 AM CDT Reema Moreno MD LAB - HEMATOLOGY ORDERABLES Performing Organization Address City/[facility] Co de Phone Number [facility] [address] [place] [address] * TYPE + SCREEN PANEL (12/14/2018 12:11 AM CDT) ABO B 12/14/2018 12:54 AM T [facility] Rh Type Positive 12/14/2018 12:54 AM T [facility] Comment:History checked. Antibody Screen Negative 12/14/2018 12:54 AM T [facility] Blood Bank BLOOD SPECIMEN / Unknown Venipuncture / Unknown 12/14/2018 12:11 AM CDT 12/14/2018 12:15 AM CDT Reema Moreno MD LAB - BLOOD BANK ORDERABLES Performing Organization Address City/[facility]/ZIP Co de Phone Number [facility] [address] [phone] * (ABNORMAL) GLUCOSE - POINT OF CARE (12/13/2018 9:17 PM CDT) Glucose WB/POC 108(H) 70 - 106 mg/dL 12/13/2018 9:41 PM CDT [facility] Specimen Type Arterial/C apillary 12/13/2018 9:41 PM CDT [facility] Blood BLOOD SPECIMEN / Unknown 12/13/2018 9:17 PM CDT 12/13/2018 9:41 PM CDT Gely Medina MD LAB - POINT OF CARE ORDERABLES Performing Organization Address [facility] Hospital/[facility] Co de Phone Number [facility] [address] [place] [address] * (ABNORMAL) GLUCOSE - POINT OF CARE (12/13/2018 3:22 PM CDT) [facility] Glucose WB/POC 136(H) 70 - 106 mg/dL 12/13/2018 3:31 PM CDT [facility] Specimen Type Arterial/C apillary 12/13/2018 3:31 PM CDT [facility] Blood BLOOD SPECIMEN / Unknown 12/13/2018 3:22 PM CDT 12/13/2018 3:31 PM CDT Gely Medina MD LAB - POINT OF CARE ORDERABLES Performing Organization Address [facility] Co de Phone Number [facility] [address] [place] [address] * NONSTRESS TEST (12/13/2018 2:22 PM CDT) Narrative Gely Medina MD - 12/13/2018 2:22 PM CDT Perla Jansen MD ? 12/13/2018 ??6:57 AM Name: ??Cait [...] Yes OTHER INFORMATION Inpatient Interventions: None Rupa C Steinrauf, BUSINESS CONTROL MANAGER NST: baseline ranges from 125-140 bpm, moderate variability, reactive, no decelerations [place]: no contractions Perla Jansen MD 12/13/2018 6:56 AM Lianne Flores MD OB GYNE ORDERABLES * (ABNORMAL) GLUCOSE - POINT OF CARE (12/13/2018 9:57 AM CDT) Glucose WB/POC 143(H) 70 - 106 mg/dL 12/13/2018 10:08 AM CDT [facility] Specimen Type Arterial/C apillary 12/13/2018 10:08 AM CDT [facility] Blood BLOOD SPECIMEN / Unknown 12/13/2018 9:57 AM CDT 12/13/2018 10:08 AM CDT Gely Medina MD LAB - POINT OF CARE ORDERABLES Performing Organization Address [facility] Co de Phone Number [facility] [address] [place] [phone] * GLUCOSE - POINT OF CARE (12/13/2018 6:53 AM CDT) Glucose WB/POC 84 70 - 106 mg/dL 12/13/2018 8:15 AM CDT [facility] Specimen Type Arterial/C apillary 12/13/2018 8:15 AM CDT [facility] Blood BLOOD SPECIMEN / Unknown 12/13/2018 6:53 AM CDT 12/13/2018 8:14 AM CDT Narrative [facility] - 12/13/2018 8:15 AM CDT (3) Treated per Protocol Gely Medina MD LAB - POINT OF CARE ORDERABLES Performing Organization Address [facility]/ZIP Co de Phone Number [facility] [address] [place] [phone] * GLUCOSE - POINT OF CARE (12/12/2018 9:07 PM CDT) Glucose WB/POC 96 70 - 106 mg/dL 12/12/2018 9:14 PM CDT [facility] Specimen Type Arterial/C apillary 12/12/2018 9:14 PM CDT [facility] Blood BLOOD SPECIMEN / Unknown 12/12/2018 9:07 PM CDT 12/12/2018 9:14 PM CDT Narrative [facility] - 12/12/2018 9:14 PM CDT (3) Treated per Protocol Gely Medina MD LAB - POINT OF CARE ORDERABLES Performing Organization Address City/State/[facility] Co de Phone Number [facility] [address] [place] [address] * NONSTRESS TEST (12/12/2018 8:39 PM CDT) Narrative Mallory Brower MD - 12/12/2018 8:39 PM CDT Perla Jansen MD ? 12/08/2018 ??6:12 AM ..Name: ??Cait Bárbara Reid Date of : ??1995 Today's Date: ??12/07/2018 [...] vs prolonged acceleration at end of strip [place]: no contractions Perla Jansen MD 12/08/2018 6:12 [...] baseline change at 1336 to 130 bpm [place]: no contractions Perla Jansen MD 12/08/2018 6:10 AM Lianne Flores MD OB GYNE ORDERABLES * (ABNORMAL) GLUCOSE - POINT OF CARE (12/12/2018 6:02 PM CDT) Glucose WB/POC 132(H) 70 - 106 mg/dL 12/12/2018 6:11 PM CDT [facility] Specimen Type Arterial/C apillary 12/12/2018 6:11 PM CDT [facility] Blood BLOOD SPECIMEN / Unknown 12/12/2018 6:02 PM CDT 12/12/2018 6:11 PM CDT Gely Medina MD LAB - POINT OF CARE ORDERABLES Performing Organization Address City/State/[facility] Co de Phone Number [facility] [address] [place] [address] * NONSTRESS TEST (12/12/2018 1:55 PM CDT) [...] etiolology unclear, moderate variability, reactive, no decelerations [place]: no contractions Perla Jansen MD 12/12/2018 5:08 [...] Mejia RN Non-Stress Test (NST) Cait Mathews [id number] 12/12/2018 8:41 AM Indications: Patient Active Problem [...] - 106 mg/dL 12/12/2018 1:04 PM CDT [facility] Specimen Type Arterial/C apillary 12/12/2018 1:04 PM CDT [facility] Blood BLOOD SPECIMEN / Unknown 12/12/2018 12:56 PM CDT 12/12/2018 1:04 PM CDT Gely Medina MD LAB - POINT OF CARE ORDERABLES Performing Organization Address City/State/[facility] Co de Phone Number [facility] [address] [place] [address] * GLUCOSE - POINT OF CARE (12/12/2018 6:32 AM CDT) Glucose WB/POC 87 70 - 106 mg/dL 12/12/2018 6:41 AM CDT [facility] Specimen Type Arterial/C apillary 12/12/2018 6:41 AM CDT [facility] Blood BLOOD SPECIMEN / Unknown 12/12/2018 6:32 AM CDT 12/12/2018 6:41 AM CDT Narrative [facility] - 12/12/2018 6:41 AM CDT (3) Treated per Protocol Gely Medina MD LAB - POINT OF CARE ORDERABLES Performing Organization Address [facility] Co de Phone Number [facility] [address] [place] [address] * (ABNORMAL) GLUCOSE - POINT OF CARE (12/11/2018 9:22 PM CDT) Glucose WB/POC 120(H) 70 - 106 mg/dL 12/12/2018 4:12 AM CDT [facility] Specimen Type Arterial/C apillary 12/12/2018 4:12 AM CDT [facility] Blood BLOOD SPECIMEN / Unknown 12/11/2018 9:22 PM CDT 12/12/2018 4:12 AM CDT Narrative [facility] - 12/12/2018 4:12 AM CDT (3) Treated per Protocol Gely Medina MD LAB - POINT OF CARE ORDERABLES Performing Organization Address [facility] de Phone Number [facility] [address] [place] [address] * NONSTRESS TEST (12/11/2018 6:56 PM CDT) [...] notified. Inpatient Interventions: Provider Notified Marci Mejia, RN Lianne Flores MD OB GYNE ORDERABLES * (ABNORMAL) GLUCOSE - POINT OF CARE (12/11/2018 6:42 PM CDT) Glucose WB/POC 134(H) 70 - 106 mg/dL 12/11/2018 6:49 PM CDT [facility] Specimen Type Arterial/C apillary 12/11/2018 6:49 PM CDT [facility] Blood BLOOD SPECIMEN / Unknown 12/11/2018 6:42 PM CDT 12/11/2018 6:49 PM CDT Gely Medina MD LAB - POINT OF CARE ORDERABLES Performing Organization Address [facility]/ZIP Co de Phone Number [facility] [address] [place] [phone] * EKG 12-LEAD (12/11/2018 2:22 PM CDT) Ventricular Rate 101 BPM [facility] Atrial Rate 101 BPM [facility] P-R Interval 176 ms [facility] QRS Duration ms 76 ms [facility] Q-T Interval ms 340 ms [facility] QTC Calculation (Bezet) 440 ms [facility]USE Calculated P [place] 28 degrees [facility] Calculated R [place] 9 degrees [facility] Calculated T [place] 7 degrees [facility] Interpretation EKG SINUS TACHYCARDIA OTHERWISE NORMAL ECG NO PREVIOUS ECGS AVAILABLE Confirmed by DO Lozano Stephanie ([id number]) on 12/12/2018 7:57:47 PM [facility] 12/11/2018 2:22 PM CDT 12/12/2018 7:57 PM CDT Lynda Sanchez MD ECG ORDERABLES [facility] * GLUCOSE - POINT OF CARE (12/11/2018 1:30 PM CDT) Glucose WB/POC 91 70 - 106 mg/dL 12/11/2018 2:58 PM CDT [facility] Specimen Type Arterial/C apillary 12/11/2018 2:58 PM CDT [facility] Blood BLOOD SPECIMEN / Unknown 12/11/2018 1:30 PM CDT 12/11/2018 2:58 PM CDT Gely Medina MD LAB - POINT OF CARE ORDERABLES Performing Organization Address City/State/[facility] Co de Phone Number [facility] [address] [place] [address] * (ABNORMAL) COMPREHENSIVE METABOLIC PANEL (12/11/2018 8:48 AM CDT) Glucose 151(H) 74 - 106 mg/dL 12/11/2018 9:37 AM CDT [facility] Sodium 135(L) 136 - 145 mmol/L 12/11/2018 9:37 AM CDT [facility] Potassium 3.8 3.5 - 5.1 mmol/L 12/11/2018 9:37 AM CDT [facility] Chloride 104 98 - 107 mmol/L 12/11/2018 9:37 AM CDT [facility] CO2 18(L) 23 - 31 mmol/L 12/11/2018 9:37 AM CDT [facility] Calcium 9.7 8.4 - 10.2 mg/dL 12/11/2018 9:37 AM T [facility] Anion Gap 13 8 - 16 mmol/L 12/11/2018 9:37 AM CDT [facility] BUN 8 7 - 18.7 mg/dL 12/11/2018 9:37 AM CDT [facility] Creatinine 0.39(L) 0.55 - 1.02 mg/dL 12/11/2018 9:37 AM T [facility] Alkaline Phosphatase 179(H) 40 - 150 U/L 12/11/2018 9:37 AM CDT [facility] ALT 14 13 - 61 U/L 12/11/2018 9:37 AM CDT [facility] AST 12 5 - 34 U/L 12/11/2018 9:37 AM T [facility] Protein Total 6.4 6.4 - 8.3 gm/dL 12/11/2018 9:37 AM T [facility] Albumin 3.4(L) 3.5 - 5.2 gm/dL 12/11/2018 9:37 AM CDT [facility] Bilirubin Total 0.3 0.2 - 1.0 mg/dL 12/11/2018 9:37 AM CDT [facility] eGFR by MDRD >60 >60 mL/min/1.7 3m2 12/11/2018 9:37 AM CDT [facility] eGFR by MDRD >60 >60 mL/min/1.7 3m2 12/11/2018 9:37 AM CDT [facility] Blood BLOOD SPECIMEN / Unknown Venipuncture / Unknown 12/11/2018 8:48 AM CDT 12/11/2018 8:55 AM CDT Bennett Stewart MD LAB - CHEMISTRY SU MCKENZIE Performing Organization Address City/[facility] Co de Phone Number [facility] [address] [place] [phone] * (ABNORMAL) GLUCOSE - POINT OF CARE (12/11/2018 8:18 AM CDT) Glucose WB/POC 117(H) 70 - 106 mg/dL 12/11/2018 8:56 AM CDT [facility] Specimen Type Arterial/C apillary 12/11/2018 8:56 AM CDT [facility] Blood BLOOD SPECIMEN / Unknown 12/11/2018 8:18 AM CDT 12/11/2018 8:56 AM CDT Gely Medina MD LAB - POINT OF CARE ORDERABLES Performing Organization Address City/[facility]/ZIP Co de Phone Number [facility] [address] [place] [place], [place] [phone] * GLUCOSE - POINT OF CARE (12/11/2018 6:16 AM CDT) Glucose WB/POC 103 70 - 106 mg/dL 12/11/2018 6:25 AM CDT [facility] Specimen Type Arterial/C apillary 12/11/2018 6:25 AM CDT [facility] Blood BLOOD SPECIMEN / Unknown 12/11/2018 6:16 AM CDT 12/11/2018 6:25 AM CDT Narrative [facility] - 12/11/2018 6:25 AM CDT (3) Treated per Protocol Gely Medina MD LAB - POINT OF CARE ORDERABLES Performing Organization Address [facility] Co de Phone Number [facility] [address] [place] [address] * TYPE + SCREEN PANEL (12/11/2018 4:52 AM CDT) [facility] ABO B 12/11/2018 5:44 AM CDT [facility] Rh Type Positive 12/11/2018 5:44 AM CDT [facility] Comment:History checked. Antibody Screen Negative 12/11/2018 5:44 AM CDT [facility] Blood Bank BLOOD SPECIMEN / Unknown Lab Venipuncture / Unknown 12/11/2018 4:52 AM CDT 12/11/2018 5:00 AM CDT Bennett Stewart MD LAB - BLOOD BANK ORD ERABLES Performing Organization Address [facility] Co de Phone Number [facility] [address] [phone] * (ABNORMAL) CBC W AUTO DIFFERENTIAL (12/11/2018 4:52 AM CDT) [facility] WBC 12.6(H) 4.4 - 10.7 x10E9/L 12/11/2018 5:10 AM CDT [facility] WBC Corrected x10E9/L 12/11/2018 5:10 AM CDT [facility] RBC 3.60(L) 3.80 - 5.20 x10E12/L 12/11/2018 5:10 AM CDT [facility] Hemoglobin 11.1(L) 12.0 - 15.6 gm/dL 12/11/2018 5:10 AM CDT [facility] Hematocrit 33.1(L) 35.9 - 45.5 % 12/11/2018 5:10 AM CDT [facility] MCV 91.9 80.7 - 98.3 fl 12/11/2018 5:10 AM CDT [facility] MCH 30.8 26.7 - 34.0 pg 12/11/2018 5:10 AM [facility] MCHC 33.5 30.8 - 35.9 gm/dL 12/11/2018 5:10 AM [facility] Platelet Count 184 153 - 416 x10E9/L 12/11/2018 5:10 AM [facility] RDW-CV 14.0 12.1 - 14.9 % 12/11/2018 5:10 AM [facility] MPV 11.5 9.4 - 12.9 fl 12/11/2018 5:10 AM [facility] Neutrophils % 80.3(H) 44.0 - 73.0 % 12/11/2018 5:10 AM [facility] Lymphocytes % 11.6(L) 20.0 - 43.0 % 12/11/2018 5:10 AM [facility] Monocytes % 5.8 5.0 - 13.0 % 12/11/2018 5:10 AM [facility] Eosinophils % 0.6 0.0 - 6.0 % 12/11/2018 5:10 AM [facility] Basophils % 0.2 0.0 - 2.0 % 12/11/2018 5:10 AM [facility] Immature Granulocytes 1.5(H) 0 - 1 % 12/11/2018 5:10 AM [facility] Neutrophil Absolute 10.08(H) 2.01 - 7.14 x10E9/L 12/11/2018 5:10 AM [facility] Lymphocytes Absolute 1.46 1.07 - 3.94 x10E9/L 12/11/2018 5:10 AM [facility] Monocytes Absolute 0.73 0.26 - 1.07 x10E9/L 12/11/2018 5:10 AM [facility] Eosinophils Absolute 0.08 0 - 0.47 x10E9/L 12/11/2018 5:10 AM [facility] Basophils Absolute 0.03 0 - 0.08 x10E9/L 12/11/2018 5:10 AM [facility] Immature Granulocytes Absolute 0.19(H) 0.00 - 0.06 x10E9/L 12/11/2018 5:10 AM [facility] nRBC Auto 0 /100 WBC 12/11/2018 5:10 AM CDT [facility] Blood BLOOD SPECIMEN / Unknown Lab Venipuncture / Unknown 12/11/2018 4:52 AM CDT 12/11/2018 4:59 AM CDT Bennett Stewart MD LAB - HEMATOLOGY ORD ERABLES Performing Organization Address City/[facility]/ZIP Co de Phone Number [facility] [address] [place] [address] * PREPARE (CROSSMATCH) RBC UNIT(S), 2 Units (12/10/2018 11:15 PM CDT) Product Code [id number] [facility] Unit Donor # [id number] S [facility] ABO Donor Type B [facility] Rh Type Unit POS [facility] Unit Status Ret'd [facility] ABO Rh Type Unit BPOS [facility] Donor Unit Expiration Date [facility] Blood Type Barcode 7300 [facility] Product Code [id number] [facility] Unit Donor # [id number] [facility] ABO Donor Type B [facility] Rh [facility] Unit POS [facility] Unit Status Ret'd [facility] ABO Rh Type Unit BPOS [facility] Donor Unit Expiration Date [facility] Blood Type Barcode 7300 [facility] Blood Bank BLOOD SPECIMEN / Unknown 12/10/2018 11:15 PM CDT Bennett Stewart MD LAB - BLOOD BANK ORD ERABLES [facility] [address] [place] [address] * (ABNORMAL) GLUCOSE - POINT OF CARE (12/10/2018 9:01 PM CDT) Glucose WB/POC 147(H) 70 - 106 mg/dL 12/10/2018 9:21 PM CDT [facility] Specimen Type Arterial/C apillary 12/10/2018 9:21 PM CDT [facility] Blood BLOOD SPECIMEN / Unknown 12/10/2018 9:01 PM CDT 12/10/2018 9:21 PM CDT Narrative [facility] - 12/10/2018 9:21 PM CDT (3) Treated per Protocol Gely Medina MD LAB - POINT OF CARE ORDERABLES Performing Organization Address City/[facility]/ZIP Co de Phone Number [facility] [address] [place] [phone] * (ABNORMAL) GLUCOSE - POINT OF CARE (12/10/2018 6:52 PM CDT) Glucose WB/POC 118(H) 70 - 106 mg/dL 12/10/2018 9:21 PM CDT [facility] Specimen Type Arterial/C apillary 12/10/2018 9:21 PM CDT [facility] Blood BLOOD SPECIMEN / Unknown 12/10/2018 6:52 PM CDT 12/10/2018 9:21 PM CDT Gely Medina MD LAB - POINT OF CARE ORDERABLES Performing Organization Address [facility] Co de Phone Number [facility] [address] [place] [phone] * (ABNORMAL) GLUCOSE - POINT OF CARE (12/10/2018 4:05 PM CDT) Glucose WB/POC 128(H) 70 - 106 mg/dL 12/10/2018 4:13 PM CDT [facility] Specimen Type Arterial/C apillary 12/10/2018 4:13 PM CDT [facility] Blood BLOOD SPECIMEN / Unknown 12/10/2018 4:05 PM CDT 12/10/2018 4:13 PM CDT Gely Medina MD LAB - POINT OF CARE ORDERABLES Performing Organization Address City/[facility]/ZIP Co de Phone Number [facility] [address] [place] [phone] * (ABNORMAL) GLUCOSE - POINT OF CARE (12/10/2018 11:24 AM CDT) Glucose WB/POC 117(H) 70 - 106 mg/dL 12/10/2018 11:44 AM CDT [facility] Specimen Type Arterial/C apillary 12/10/2018 11:44 AM CDT [facility] Blood BLOOD SPECIMEN / Unknown 12/10/2018 11:24 AM CDT 12/10/2018 11:44 AM CDT Gely Medina MD LAB - POINT OF CARE ORDERABLES Performing Organization Address [facility]/ZIP Co de Phone Number [facility] [address] [place] [phone] * GLUCOSE - POINT OF CARE (12/10/2018 5:04 AM CDT) Glucose WB/POC 94 70 - 106 mg/dL 12/10/2018 5:22 AM CDT [facility] Specimen Type Arterial/C apillary 12/10/2018 5:22 AM CDT [facility] Blood BLOOD SPECIMEN / Unknown 12/10/2018 5:04 AM CDT 12/10/2018 5:22 AM CDT Gely Medina MD LAB - POINT OF CARE ORDERABLES Performing Organization Address [facility] Co de Phone Number [facility] [address] [place] [phone] * (ABNORMAL) GLUCOSE - POINT OF CARE (12/09/2018 8:04 PM CDT) Glucose WB/POC 110(H) 70 - 106 mg/dL 12/09/2018 8:11 PM CDT [facility] Specimen Type Arterial/C apillary 12/09/2018 8:11 PM CDT [facility] Blood BLOOD SPECIMEN / Unknown 12/09/2018 8:04 PM CDT 12/09/2018 8:11 PM CDT Gely Medina MD LAB - POINT OF CARE ORDERABLES Performing Organization Address City/[facility] Co de Phone Number [facility] [address] [place] [phone] * GLUCOSE - POINT OF CARE (12/09/2018 2:36 PM CDT) Glucose WB/POC 102 70 - 106 mg/dL 12/09/2018 2:47 PM CDT [facility] Specimen Type Arterial/C apillary 12/09/2018 2:47 PM CDT [facility] Blood BLOOD SPECIMEN / Unknown 12/09/2018 2:36 PM CDT 12/09/2018 2:47 PM CDT Gely Medina MD LAB - POINT OF CARE ORDERABLES Performing Organization Address [facility] Co de Phone Number [facility] [address] [place] [phone] * (ABNORMAL) GLUCOSE - POINT OF CARE (12/09/2018 11:41 AM CDT) Glucose WB/POC 154(H) 70 - 106 mg/dL 12/09/2018 11:48 AM CDT [facility] Specimen Type Arterial/C apillary 12/09/2018 11:48 AM CDT [facility] Blood BLOOD SPECIMEN / Unknown 12/09/2018 11:41 AM CDT 12/09/2018 11:48 AM CDT Gely Medina MD LAB - POINT OF CARE ORDERABLES Performing Organization Address [facility] Co de Phone Number [facility] [address] [place] [phone] * GLUCOSE - POINT OF CARE (12/09/2018 5:18 AM CDT) Glucose WB/POC 98 70 - 106 mg/dL 12/09/2018 9:46 AM CDT [facility] Specimen Type Arterial/C apillary 12/09/2018 9:46 AM CDT [facility] Blood BLOOD SPECIMEN / Unknown 12/09/2018 5:18 AM CDT 12/09/2018 9:46 AM CDT Gely Medina MD LAB - POINT OF CARE ORDERABLES Performing Organization Address [facility] Co de Phone Number [facility] [address] [place] [phone] * (ABNORMAL) GLUCOSE - POINT OF CARE (12/08/2018 9:31 PM CDT) Glucose WB/POC 115(H) 70 - 106 mg/dL 12/09/2018 10:09 AM CDT [facility] Specimen Type Arterial/C apillary 12/09/2018 10:09 AM CDT [facility] Blood BLOOD SPECIMEN / Unknown 12/08/2018 9:31 PM CDT 12/09/2018 10:09 AM CDT Gely Medina MD LAB - POINT OF CARE ORDERABLES Performing Organization Address [facility] Co de Phone Number [facility] [address] [place] [phone] * (ABNORMAL) GLUCOSE - POINT OF CARE (12/08/2018 8:01 PM CDT) Glucose WB/POC 116(H) 70 - 106 mg/dL 12/08/2018 8:10 PM CDT [facility] Specimen Type Arterial/C apillary 12/08/2018 8:10 PM CDT [facility] Blood BLOOD SPECIMEN / Unknown 12/08/2018 8:01 PM CDT 12/08/2018 8:10 PM CDT Gely Medina MD LAB - POINT OF CARE ORDERABLES Performing Organization Address [facility] Co de Phone Number [facility] [address] [place] [phone] * (ABNORMAL) URINE MICROSCOPIC ONLY REFLEX TO CULTURE (12/08/2018 3:20 PM CDT) Reflex Status Culture not indicated 12/08/2018 3:35 PM CDT [facility] RBC UA 6-10(A) None Seen, 0-2, 3-5 # /hpf 12/08/2018 3:35 PM CDT [facility] WBC UA 0-5 None Seen, 0-5 # /hpf 12/08/2018 3:35 PM CDT [facility] Bacteria UA None Seen None Seen 12/08/2018 3:35 PM CDT [facility] Squamous Epithelial Cells 0-2 None Seen, 0-2, 3-5 /hpf 12/08/2018 3:35 PM CDT [facility] Mucus UA 1+ /LPF 12/08/2018 3:35 PM CDT [facility] Hyaline Casts 0-2 None Seen, 0-2 # /lpf 12/08/2018 3:35 PM CDT [facility] Urine URINE SPECIMEN OBTAINED BY SINGLE CATHETERIZATION OF URINARY BLADDER / Unknown Collection / Unknown 12/08/2018 3:20 PM CDT 12/08/2018 3:25 PM CDT Narrative [facility] - 12/08/2018 3:35 PM CDT Perla Jansen MD LAB - URINALYSIS ORD ERABLES Performing Organization Address [facility] Co de Phone Number [facility] [address] [place], [place] [phone] * PROTEIN CREATININE RATIO URINE RANDOM PNL (12/08/2018 3:20 PM CDT) Pathologist [facility] Protein Urine 227.8 mg/dL 12/08/2018 4:05 PM CDT [facility] Creatinine Urine 192.48 mg/dL 12/08/2018 4:05 PM CDT [facility] Protein/Creatin ine Ratio Urine 1.18 12/08/2018 4:05 PM CDT [facility] Urine URINE SPECIMEN OBTAINED BY CLEAN CATCH PROCEDURE / Unknown Collection / Unknown 12/08/2018 3:20 PM CDT 12/08/2018 3:25 PM CDT Perla Jansen MD LAB - URINE CHEMISTR Y ORDERABLES Performing Organization Address [facility] Co de Phone Number [facility] [address] [place] [phone] * (ABNORMAL) URINALYSIS REFLEX MICROSCOPIC REFLEX CULTURE (12/08/2018 3:20 PM CDT) Color UA Yellow Straw, Yellow 12/08/2018 3:35 PM CDT [facility] Clarity UA Slt Cloudy(A) Clear 12/08/2018 3:35 PM CDT [facility] Glucose UA Negative Negative 12/08/2018 3:35 PM CDT [facility] Bilirubin UA Negative Negative 12/08/2018 3:35 PM CDT [facility] Ketone UA Trace(A) Negative 12/08/2018 3:35 PM CDT [facility] Specific [place] UA 1.029 1.005 - 1.030 12/08/2018 3:35 PM CDT [facility] Blood UA Negative Negative 12/08/2018 3:35 PM CDT [facility] pH UA 6.0 5.0 - 8.0 pH 12/08/2018 3:35 PM CDT [facility] Protein UA 2+(A) Negative 12/08/2018 3:35 PM CDT [facility] Urobilinogen UA Negative Negative mg/dL 12/08/2018 3:35 PM CDT [facility] Nitrite UA Negative Negative 12/08/2018 3:35 PM CDT [facility] Leukocyte UA Negative Negative 12/08/2018 3:35 PM CDT [facility] Urine Microscopy Urine microscopy to follow 12/08/2018 3:35 PM CDT [facility] Reflex Status Culture not indicated 12/08/2018 3:35 PM CDT [facility] Urine URINE SPECIMEN OBTAINED BY SINGLE CATHETERIZATION OF URINARY BLADDER / Unknown Collection / Unknown 12/08/2018 3:20 PM CDT 12/08/2018 3:25 PM CDT Narrative [facility] - 12/08/2018 3:35 PM CDT Ascorbic Acid can cause false negative urine strip tests for blood, glucose, nitrite, and bilirubin. Perla Jansen MD LAB - URINALYSIS ORD ERABLES [facility] [address] [place] [address] * (ABNORMAL) GLUCOSE - POINT OF CARE (12/08/2018 1:16 PM CDT) Glucose WB/POC 144(H) 70 - 106 mg/dL 12/08/2018 1:26 PM CDT [facility] Specimen Type Arterial/C apillary 12/08/2018 1:26 PM CDT [facility] Blood BLOOD SPECIMEN / Unknown 12/08/2018 1:16 PM CDT 12/08/2018 1:26 PM CDT Narrative [facility] - 12/08/2018 1:26 PM CDT (3) Treated per Protocol Gely Medina MD LAB - POINT OF CARE ORDERABLES Performing Organization Address City/State/[facility] Co de Phone Number [facility] [address] [place] [address] * PREPARE (CROSSMATCH) RBC UNIT(S), 2 Units (12/08/2018 7:00 AM CDT) Product Code [id number] [facility] Unit Donor # [id number] S [facility] ABO Donor Type B [facility] Rh Type Unit POS [facility] Unit Status Ret'd [facility] ABO Rh Type Unit BPOS [facility] Donor Unit Expiration Date [facility] Blood Type Barcode 7300 [facility] Product Code [id number] [facility] Unit Donor [facility] [id number] S [facility] ABO Donor Type B [facility] Rh Type Unit POS [facility] Unit Status Ret'd [facility] ABO Rh Type Unit BPOS [facility] Donor Unit Expiration Date [facility] Blood Type Barcode 7300 [facility] Product Code [id number] [facility] Unit Donor [facility] [id number] S [facility] ABO Donor Type B [facility] Rh [facility] Unit POS [facility] Unit Status Ret'd [facility] ABO Rh Type Unit BPOS [facility] Donor Unit Expiration Date [facility] Blood Type Barcode 7300 [facility] Product Code [id number] [facility] Unit Donor # [id number] S [facility] ABO Donor Type B [facility] Rh Type Unit POS [facility] Unit Status Ret'd [facility] LAB ABO Rh Type Unit BPOS [facility] Donor Unit Expiration Date [id number] [facility] Blood Type Barcode 7300 [facility] Blood Bank BLOOD SPECIMEN / Unknown 12/08/2018 7:00 AM CDT Kelley Rocha MD LAB - BLOOD BANK ORD ERABLES [facility] [address] [phone] * (ABNORMAL) CBC W AUTO DIFFERENTIAL (12/08/2018 5:49 AM CDT) WBC 12.1(H) 4.4 - 10.7 x10E9/L 12/08/2018 6:07 AM CDT [facility] WBC Corrected x10E9/L 12/08/2018 6:07 AM CDT [facility] RBC 3.98 3.80 - 5.20 x10E12/L 12/08/2018 6:07 AM CDT [facility] Hemoglobin 11.7(L) 12.0 - 15.6 gm/dL 12/08/2018 6:07 AM CDT [facility] Hematocrit 36.2 35.9 - 45.5 % 12/08/2018 6:07 AM CDT [facility] MCV 91.0 80.7 - 98.3 fl 12/08/2018 6:07 AM CDT [facility] MCH 29.4 26.7 - 34.0 pg 12/08/2018 6:07 AM CDT [facility] MCHC 32.3 30.8 - 35.9 gm/dL 12/08/2018 6:07 AM CDT [facility] Platelet Count 191 153 - 416 x10E9/L 12/08/2018 6:07 AM CDT [facility] RDW-CV 13.9 12.1 - 14.9 % 12/08/2018 6:07 AM CDT [facility] MPV 11.3 9.4 - 12.9 fl 12/08/2018 6:07 AM CDT [facility] Neutrophils % 73.5(H) 44.0 - 73.0 % 12/08/2018 6:07 AM CDT [facility] Lymphocytes % 17.0(L) 20.0 - 43.0 % 12/08/2018 6:07 AM CDT [facility] Monocytes % 6.5 5.0 - 13.0 % 12/08/2018 6:07 AM CDT [facility] Eosinophils % 0.7 0.0 - 6.0 % 12/08/2018 6:07 AM CDT [facility] Basophils % 0.4 0.0 - 2.0 % 12/08/2018 6:07 AM CDT [facility] Immature Granulocytes 1.9(H) 0 - 1 % 12/08/2018 6:07 AM CDT [facility] Neutrophil Absolute 8.92(H) 2.01 - 7.14 x10E9/L 12/08/2018 6:07 AM CDT [facility] Lymphocytes Absolute 2.06 1.07 - 3.94 x10E9/L 12/08/2018 6:07 AM CDT [facility] Monocytes Absolute 0.79 0.26 - 1.07 x10E9/L 12/08/2018 6:07 AM CDT [facility] Eosinophils Absolute 0.08 0 - 0.47 x10E9/L 12/08/2018 6:07 AM CDT [facility] Basophils Absolute 0.05 0 - 0.08 x10E9/L 12/08/2018 6:07 AM CDT [facility] Immature Granulocytes Absolute 0.23(H) 0.00 - 0.06 x10E9/L 12/08/2018 6:07 AM T [facility] nRBC Auto 0 /100 WBC 12/08/2018 6:07 AM T [facility] Blood BLOOD SPECIMEN / Unknown Lab Venipuncture / Unknown 12/08/2018 5:49 AM CDT 12/08/2018 5:58 AM CDT Kelley Rocha MD LAB - HEMATOLOGY ORD ERABLES [facility] [address] [place], [place] [id number] * TYPE + SCREEN PANEL (12/08/2018 5:49 AM CDT) [facility] ABO B 12/08/2018 6:44 AM CDT [facility] Rh Type Positive 12/08/2018 6:44 AM CDT [facility] Comment:History checked. Antibody Screen Negative 12/08/2018 6:44 AM T [facility] Blood Bank BLOOD SPECIMEN / Unknown Lab Venipuncture / Unknown 12/08/2018 5:49 AM CDT 12/08/2018 5:58 AM CDT Kelley Rocha MD LAB - BLOOD BANK ORD ERABLES [facility] [address] [phone] * (ABNORMAL) COMPREHENSIVE METABOLIC PANEL (12/08/2018 5:49 AM CDT) Glucose 94 74 - 106 mg/dL 12/08/2018 6:31 AM [facility] Sodium 136 136 - 145 mmol/L 12/08/2018 6:31 AM [facility] Potassium 4.0 3.5 - 5.1 mmol/L 12/08/2018 6:31 AM [facility] Chloride 104 98 - 107 mmol/L 12/08/2018 6:31 AM [facility] CO2 20(L) 23 - 31 mmol/L 12/08/2018 6:31 AM [facility] Calcium 9.8 8.4 - 10.2 mg/dL 12/08/2018 6:31 AM [facility] Anion Gap 12 8 - 16 mmol/L 12/08/2018 6:31 AM [facility] BUN 8 7 - 18.7 mg/dL 12/08/2018 6:31 AM [facility] Creatinine 0.43(L) 0.55 - 1.02 mg/dL 12/08/2018 6:31 AM [facility] Alkaline Phosphatase 159(H) 40 - 150 U/L 12/08/2018 6:31 AM [facility] ALT 11(L) 13 - 61 U/L 12/08/2018 6:31 AM [facility] AST 11 5 - 34 U/L 12/08/2018 6:31 AM CDT [facility] Protein Total 6.2(L) 6.4 - 8.3 gm/dL 12/08/2018 6:31 AM CDT [facility] Albumin 3.3(L) 3.5 - 5.2 gm/dL 12/08/2018 6:31 AM CDT [facility] Bilirubin Total 0.3 0.2 - 1.0 mg/dL 12/08/2018 6:31 AM CDT [facility] eGFR by MDRD >60 >60 mL/min/1.7 3m2 12/08/2018 6:31 AM CDT [facility] eGFR by MDRD >60 >60 mL/min/1.7 3m2 12/08/2018 6:31 AM CDT [facility] Blood BLOOD SPECIMEN / Unknown Lab Venipuncture / Unknown 12/08/2018 5:49 AM CDT 12/08/2018 5:58 AM CDT Sarah Elder DO LAB - CHEMISTRY ORDERABLES Performing Organization Address City/[facility]/ZIP Co de Phone Number [facility] [address] [place] [phone] * GLUCOSE - POINT OF CARE (12/08/2018 4:28 AM CDT) Glucose WB/POC 78 70 - 106 mg/dL 12/08/2018 4:36 AM CDT [facility] Specimen Type Arterial/C apillary 12/08/2018 4:36 AM CDT [facility] Blood BLOOD SPECIMEN / Unknown 12/08/2018 4:28 AM CDT 12/08/2018 4:36 AM CDT Narrative [facility] - 12/08/2018 4:36 AM CDT (3) Treated per Protocol Gely Medina MD LAB - POINT OF CARE ORDERABLES Performing Organization Address City/[facility]/ZIP Co de Phone Number [facility] [address] [place] [phone] * (ABNORMAL) GLUCOSE - POINT OF CARE (12/07/2018 9:00 PM CDT) Glucose WB/POC 121(H) 70 - 106 mg/dL 12/07/2018 9:11 PM CDT [facility] Specimen Type Arterial/C apillary 12/07/2018 9:11 PM CDT [facility] Blood BLOOD SPECIMEN / Unknown 12/07/2018 9:00 PM CDT 12/07/2018 9:10 PM CDT Narrative [facility] - 12/07/2018 9:11 PM CDT (3) Treated per Protocol Gely Medina MD LAB - POINT OF CARE ORDERABLES Performing Organization Address [facility]/ZIP Co de Phone Number [facility] [address] [place] [phone] * (ABNORMAL) GLUCOSE - POINT OF CARE (12/07/2018 7:25 PM CDT) Glucose WB/POC 134(H) 70 - 106 mg/dL 12/07/2018 7:36 PM CDT [facility] Specimen Type Arterial/C apillary 12/07/2018 7:36 PM CDT [facility] Blood BLOOD SPECIMEN / Unknown 12/07/2018 7:25 PM CDT 12/07/2018 7:36 PM CDT Narrative [facility] - 12/07/2018 7:36 PM CDT (3) Treated per Protocol Gely Medina MD LAB - POINT OF CARE ORDERABLES Performing Organization Address [facility] Co de Phone Number [facility] [address] [place] [phone] * (ABNORMAL) GLUCOSE - POINT OF CARE (12/07/2018 3:29 PM CDT) Glucose WB/POC 137(H) 70 - 106 mg/dL 12/07/2018 3:55 PM CDT [facility] Specimen Type Arterial/C apillary 12/07/2018 3:55 PM CDT [facility] Blood BLOOD SPECIMEN / Unknown 12/07/2018 3:29 PM CDT 12/07/2018 3:55 PM CDT Gely Medina MD LAB - POINT OF CARE ORDERABLES [facility] [address] [place] [address] * SONOGRAM - TRANSVAGINAL (12/07/2018 11:10 AM CDT) Anatomical Region Laterality Modality Other 12/07/2018 11:1 0 AM CDT Narrative 12/09/2018 7:10 PM CDT ? [facility] ?PHONE: ??FAX: Pat. Name: ?CAIT MATHEWS Pat. No: ?[id number] Study Date: ?? 12/07/2018 ??11:10am , Age: ? 1995, 23 Pregnancies: ?? 2, Para 1 Height: ? 60 in Weight: ? 180 lb LMP: ?Unknown GA by Base: ?? 34w0d ?? ULISES: 01/18/2019 GA Selected: ??34w0d (From [place]) ULISES: ?01/18/2019 Referring MD: MD Hunter, [facility] Spool Maker: ??Gabbi Saenz RDMS CPT4: ? [id number] BMI: ?35.15 Hist/Ind: ? Vaginal bleeding ?Tobacco [...] Signature> ??12/09/2018 07:10pm Revised Gabrielle Lui MD [facility] ORDERABLES * (ABNORMAL) GLUCOSE - POINT OF CARE (12/07/2018 9:52 AM CDT) Glucose WB/POC 141(H) 70 - 106 mg/dL 12/07/2018 10:09 AM CDT [facility] Specimen Type Arterial/C apillary 12/07/2018 10:09 AM CDT [facility] Blood BLOOD SPECIMEN / Unknown 12/07/2018 9:52 AM CDT 12/07/2018 10:09 AM CDT Gely Medina MD LAB - POINT OF CARE ORDERABLES Performing Organization Address [facility] Co de Phone Number [facility] [address] [place] [phone] * GLUCOSE - POINT OF CARE (12/07/2018 4:21 AM CDT) Glucose WB/POC 88 70 - 106 mg/dL 12/07/2018 4:34 AM CDT [facility] Specimen Type Arterial/C apillary 12/07/2018 4:34 AM CDT [facility] Blood BLOOD SPECIMEN / Unknown 12/07/2018 4:21 AM CDT 12/07/2018 4:34 AM CDT Narrative [facility] - 12/07/2018 4:34 AM CDT (3) Treated per Protocol Gely Medina MD LAB - POINT OF CARE ORDERABLES Performing Organization Address [facility] de Phone Number [facility] [address] [place] [address] * NONSTRESS TEST (12/06/2018 10:23 PM CDT) [...] Yes OTHER INFORMATION Inpatient Interventions: None Lynda Campuzano, FLEX Lianne Flores MD OB GYNE ORDERABLES * (ABNORMAL) GLUCOSE - POINT OF CARE (12/06/2018 8:53 PM CDT) Glucose WB/POC 138(H) 70 - 106 mg/dL 12/06/2018 9:04 PM CDT [facility] Specimen Type Arterial/C apillary 12/06/2018 9:04 PM CDT [facility] Blood BLOOD SPECIMEN / Unknown 12/06/2018 8:53 PM CDT 12/06/2018 9:04 PM CDT Narrative [facility] - 12/06/2018 9:04 PM CDT (3) Treated per Protocol Gely Medina MD LAB - POINT OF CARE ORDERABLES Performing Organization Address [facility] Co de Phone Number [facility] [address] [place] [phone] * (ABNORMAL) GLUCOSE - POINT OF CARE (12/06/2018 6:40 PM CDT) Glucose WB/POC 117(H) 70 - 106 mg/dL 12/06/2018 6:49 PM CDT [facility] Specimen Type Arterial/C apillary 12/06/2018 6:49 PM CDT [facility] Blood BLOOD SPECIMEN / Unknown 12/06/2018 6:40 PM CDT 12/06/2018 6:49 PM CDT Gely Medina MD LAB - POINT OF CARE ORDERABLES Performing Organization Address [facility]/ZIP Co de Phone Number [facility] [address] [place] [place], [place] [phone] * (ABNORMAL) GLUCOSE - POINT OF CARE (12/06/2018 3:02 PM CDT) Glucose WB/POC 108(H) 70 - 106 mg/dL 12/06/2018 3:11 PM CDT [facility] Specimen Type Arterial/C apillary 12/06/2018 3:11 PM CDT [facility] Blood BLOOD SPECIMEN / Unknown 12/06/2018 3:02 PM CDT 12/06/2018 3:11 PM CDT Gely Medina MD LAB - POINT OF CARE ORDERABLES Performing Organization Address City/[facility]/ZIP Co de Phone Number [facility] [address] [place] [address] * CULTURE URINE (12/06/2018 12:53 PM CDT) Pathologist [facility] Culture Urine <10,000 CFU/mL [facility] l[facility] daniel ALESSANDRO 12/07/2018 6:04 PM CDT [facility] Urine URINE SPECIMEN OBTAINED BY CLEAN CATCH PROCEDURE / Unknown Collection / Unknown 12/06/2018 12:53 PM CDT 12/06/2018 1:17 PM CDT Lianne Flores MD LAB - MICROBIOLOGY O RDERABLES Performing Organization Address City/[facility]/ZIP Co de Phone Number [facility] [address] [place] [address], [facility] [phone] * (ABNORMAL) URINE MICROSCOPIC ONLY REFLEX TO CULTURE (12/06/2018 12:53 PM CDT) Reflex Status Culture to follow 12/06/2018 1:41 PM CDT [facility] RBC UA 0-2 None Seen, 0-2, 3-5 # /hpf 12/06/2018 1:41 PM CDT [facility] WBC UA 6-10(A) None Seen, 0-5 # /hpf 12/06/2018 1:41 PM CDT [facility] Bacteria UA 2+(A) None Seen 12/06/2018 1:41 PM CDT [facility] Squamous Epithelial Cells 6-10(A) None Seen, 0-2, 3-5 /hpf 12/06/2018 1:41 PM CDT [facility] Mucus UA 1+ /LPF 12/06/2018 1:41 PM CDT [facility] Hyaline Casts 0-2 None Seen, 0-2 # /lpf 12/06/2018 1:41 PM CDT [facility] Urine URINE SPECIMEN OBTAINED BY CLEAN CATCH PROCEDURE / Unknown Collection / Unknown 12/06/2018 12:53 PM CDT 12/06/2018 1:17 PM CDT Narrative [facility] - 12/06/2018 1:41 PM CDT Lianne Flores MD LAB - URINALYSIS ORD ERABLES [facility] [address] [place] [address] * (ABNORMAL) URINALYSIS REFLEX MICROSCOPIC REFLEX CULTURE (12/06/2018 12:53 PM CDT) Color UA Yellow Straw, Yellow 12/06/2018 1:41 PM CDT [facility] Clarity UA Slt Cloudy(A) Clear 12/06/2018 1:41 PM CDT [facility] Glucose UA Negative Negative 12/06/2018 1:41 PM CDT [facility] Bilirubin UA Negative Negative 12/06/2018 1:41 PM CDT [facility] Ketone UA Trace(A) Negative 12/06/2018 1:41 PM CDT [facility] Specific [place] UA 1.015 1.005 - 1.030 12/06/2018 1:41 PM CDT [facility] Blood UA 2+(A) Negative 12/06/2018 1:41 PM CDT [facility] pH UA 6.0 5.0 - 8.0 pH 12/06/2018 1:41 PM CDT [facility] Protein UA 1+(A) Negative 12/06/2018 1:41 PM CDT [facility] Urobilinogen UA Negative Negative mg/dL 12/06/2018 1:41 PM CDT [facility] Nitrite UA Negative Negative 12/06/2018 1:41 PM CDT [facility] Leukocyte UA 2+(A) Negative 12/06/2018 1:41 PM CDT [facility] Urine Microscopy Urine microscopy to follow 12/06/2018 1:41 PM CDT [facility] Reflex Status Culture to follow 12/06/2018 1:41 PM CDT [facility] Urine URINE SPECIMEN OBTAINED BY CLEAN CATCH PROCEDURE / Unknown Collection / Unknown 12/06/2018 12:53 PM CDT 12/06/2018 1:17 PM CDT [facility] - 12/06/2018 1:41 PM CDT Ascorbic Acid can cause false negative urine strip tests for blood, glucose, nitrite, and bilirubin. Lianne Flores MD LAB - URINALYSIS ORD ERABLES [facility] [address] [place] [address] * (ABNORMAL) COMPREHENSIVE METABOLIC PANEL (12/06/2018 12:53 PM CDT) Glucose 107(H) 74 - 106 mg/dL 12/06/2018 1:45 PM CDT [facility] Sodium 133(L) 136 - 145 mmol/L 12/06/2018 1:45 PM CDT [facility] Potassium 3.9 3.5 - 5.1 mmol/L 12/06/2018 1:45 PM CDT [facility] Chloride 103 98 - 107 mmol/L 12/06/2018 1:45 PM CDT [facility] CO2 20(L) 23 - 31 mmol/L 12/06/2018 1:45 PM CDT [facility] Calcium 10.1 8.4 - 10.2 mg/dL 12/06/2018 1:45 PM CDT [facility] Anion Gap 10 8 - 16 mmol/L 12/06/2018 1:45 PM CDT [facility] BUN 6(L) 7 - 18.7 mg/dL 12/06/2018 1:45 PM CDT [facility] Creatinine 0.41(L) 0.55 - 1.02 mg/dL 12/06/2018 1:45 PM CDT [facility] Alkaline Phosphatase 172(H) 40 - 150 U/L 12/06/2018 1:45 PM CDT [facility] ALT 12(L) 13 - 61 U/L 12/06/2018 1:45 PM CDT [facility] AST 12 5 - 34 U/L 12/06/2018 1:45 PM CDT [facility] Protein Total 6.4 6.4 - 8.3 gm/dL 12/06/2018 1:45 PM CDT [facility] Albumin 3.3(L) 3.5 - 5.2 gm/dL 12/06/2018 1:45 PM CDT [facility] Bilirubin Total 0.3 0.2 - 1.0 mg/dL 12/06/2018 1:45 PM CDT [facility] eGFR by MDRD >60 >60 mL/min/1.7 3m2 12/06/2018 1:45 PM CDT [facility] eGFR by MDRD >60 >60 mL/min/1.7 3m2 12/06/2018 1:45 PM CDT [facility] Blood BLOOD SPECIMEN / Unknown Venipuncture / Unknown 12/06/2018 12:53 PM CDT 12/06/2018 1:17 PM CDT Lianne Flores MD LAB - CHEMISTRY [facility] Organization Address City/State/ZIP Co de Phone Number [facility] [address] [place] [address] * (ABNORMAL) CBC W AUTO DIFFERENTIAL (12/06/2018 12:53 PM CDT) WBC 13.3(H) 4.4 - 10.7 x10E9/L 12/06/2018 1:23 PM CDT [facility] WBC Corrected x10E9/L 12/06/2018 1:23 PM CDT [facility] RBC 4.02 3.80 - 5.20 x10E12/L 12/06/2018 1:23 PM CDT [facility] Hemoglobin 12.1 12.0 - 15.6 gm/dL 12/06/2018 1:23 PM CDT [facility] Hematocrit 36.4 35.9 - 45.5 % 12/06/2018 1:23 PM CDT [facility] MCV 90.5 80.7 - 98.3 fl 12/06/2018 1:23 PM CDT [facility] MCH 30.1 26.7 - 34.0 pg 12/06/2018 1:23 PM CDT [facility] MCHC 33.2 30.8 - 35.9 gm/dL 12/06/2018 1:23 PM CDT [facility] Platelet Count 208 153 - 416 x10E9/L 12/06/2018 1:23 PM CDT [facility] RDW-CV 13.9 12.1 - 14.9 % 12/06/2018 1:23 PM CDT [facility] MPV 11.6 9.4 - 12.9 fl 12/06/2018 1:23 PM CDT [facility] Neutrophils % 79.0(H) 44.0 - 73.0 % 12/06/2018 1:23 PM T [facility] Lymphocytes % 13.5(L) 20.0 - 43.0 % 12/06/2018 1:23 PM CDT [facility] Monocytes % 5.1 5.0 - 13.0 % 12/06/2018 1:23 PM CDT [facility] Eosinophils % 0.5 0.0 - 6.0 % 12/06/2018 1:23 PM CDT [facility] Basophils % 0.2 0.0 - 2.0 % 12/06/2018 1:23 PM CDT [facility] Immature Granulocytes 1.7(H) 0 - 1 % 12/06/2018 1:23 PM T [facility] Neutrophil Absolute 10.50(H) 2.01 - 7.14 x10E9/L 12/06/2018 1:23 PM CDT [facility] Lymphocytes Absolute 1.79 1.07 - 3.94 x10E9/L 12/06/2018 1:23 PM CDT [facility] Monocytes Absolute 0.68 0.26 - 1.07 x10E9/L 12/06/2018 1:23 PM CDT [facility] Eosinophils Absolute 0.07 0 - 0.47 x10E9/L 12/06/2018 1:23 PM T [facility] Basophils Absolute 0.03 0 - 0.08 x10E9/L 12/06/2018 1:23 PM T [facility] Immature Granulocytes Absolute 0.22(H) 0.00 - 0.06 x10E9/L 12/06/2018 1:23 PM T [facility] nRBC Auto 0 /100 WBC 12/06/2018 1:23 PM [facility] Blood BLOOD SPECIMEN / Unknown Venipuncture / Unknown 12/06/2018 12:53 PM CDT 12/06/2018 1:17 PM CDT Lianne Flores MD LAB - HEMATOLOGY ORD ERABLES Performing Organization Address [facility] Co de Phone Number [facility] [address] [place] [phone] * PROTEIN CREATININE RATIO URINE RANDOM PNL (12/06/2018 12:53 PM CDT) Protein Urine 48.2 mg/dL 12/06/2018 1:43 PM CDT [facility] Creatinine Urine 72.44 mg/dL 12/06/2018 1:43 PM CDT [facility] Protein/Creatin ine Ratio Urine 0.67 12/06/2018 1:43 PM CDT [facility] Urine URINE SPECIMEN OBTAINED BY CLEAN CATCH PROCEDURE / Unknown Collection / Unknown 12/06/2018 12:53 PM CDT 12/06/2018 1:17 PM CDT Lianne Flores MD LAB - URINE CHEMISTR Y ORDERABLES Performing Organization Address [facility] Co de Phone Number [facility] [address] [place] [address] * (ABNORMAL) GLUCOSE - POINT OF CARE (12/06/2018 11:33 AM CDT) Glucose WB/POC 126(H) 70 - 106 mg/dL 12/06/2018 11:42 AM CDT [facility] Specimen Type Arterial/C apillary 12/06/2018 11:42 AM CDT [facility] Blood BLOOD SPECIMEN / Unknown 12/06/2018 11:33 AM CDT 12/06/2018 11:42 AM CDT Gely Medina MD LAB - POINT OF CARE ORDERABLES Performing Organization Address [facility] Co de Phone Number [facility] [address] [place], [place] [phone] * GLUCOSE - POINT OF CARE (12/06/2018 5:58 AM CDT) Glucose WB/POC 98 70 - 106 mg/dL 12/06/2018 6:08 AM CDT [facility] Specimen Type Arterial/C apillary 12/06/2018 6:08 AM CDT [facility] Blood BLOOD SPECIMEN / Unknown 12/06/2018 5:58 AM CDT 12/06/2018 6:08 AM CDT Gely Medina MD LAB - POINT OF CARE ORDERABLES [facility] [address] [place] [address] * NONSTRESS TEST (12/05/2018 8:31 PM CDT) [...] Lynda Campuzano RN Non-Stress Test (NST) Cait Bárbara Mathews [id number] 12/05/2018 6:07 AM Indications: Patient Active Problem [...] - 106 mg/dL 12/05/2018 7:26 PM CDT [facility] Specimen Type Arterial/C apillary 12/05/2018 7:26 PM CDT [facility] Blood BLOOD SPECIMEN / Unknown 12/05/2018 7:18 PM CDT 12/05/2018 7:26 PM CDT Gely Medina MD LAB - POINT OF CARE ORDERABLES Performing Organization Address [facility] Co de Phone Number [facility] [address] [place] [address] * (ABNORMAL) GLUCOSE - POINT OF CARE (12/05/2018 12:38 PM CDT) Glucose WB/POC 124(H) 70 - 106 mg/dL 12/05/2018 12:50 PM CDT [facility] Specimen Type Arterial/C apillary 12/05/2018 12:50 PM CDT [facility] Blood BLOOD SPECIMEN / Unknown 12/05/2018 12:38 PM CDT 12/05/2018 12:50 PM CDT Gely Medina MD LAB - POINT OF CARE ORDERABLES Performing Organization Address [facility] Co de Phone Number [facility] [address] [place] [phone] * SONOGRAM - LIMITED (12/05/2018 9:36 AM CDT) Anatomical Region Laterality Modality Other 12/05/2018 9:36 AM CDT Narrative 12/05/2018 4:50 PM CDT ?[facility] ?PHONE: ??FAX: Pat. Name: ?CAIT MATHEWS Pat. No: ?[id number] Study Date: ?? 12/05/2018 ??9:36am , Age: ? 1995, 23 Pregnancies: ?? 2, Para 1 Height: ? 60 in Weight: ? 180 lb LMP: ?Unknown GA by Base: ?? 33w5d ?? ULISES: 01/18/2019 GA Selected: ??33w5d (From [facility]) ULISES: ?01/18/2019 Referring MD: Hunter, , [facility] Spool Maker: ??Poppy Shirley RDMS CPT4: ? [id number] BMI: ?35.15 Room: ? 556 Hist/Ind: ? [...] None Lynda Campuzano RN Gabrielle Lui MD [facility] ORDERABLES * GLUCOSE - POINT OF CARE (12/05/2018 6:00 AM CDT) [facility] Glucose WB/POC 94 70 - 106 mg/dL 12/05/2018 6:09 AM CDT [facility] Specimen Type Arterial/C apillary 12/05/2018 6:09 AM CDT [facility] Blood BLOOD SPECIMEN / Unknown 12/05/2018 6:00 AM CDT 12/05/2018 6:09 AM CDT Gely Medina MD LAB - POINT OF CARE ORDERABLES [facility] [address] [place] [address] * (ABNORMAL) CBC W AUTO DIFFERENTIAL (12/05/2018 5:50 AM CDT) [facility] WBC 13.2(H) 4.4 - 10.7 x10E9/L 12/05/2018 6:15 AM CDT [facility] WBC Corrected x10E9/L 12/05/2018 6:15 AM CDT [facility] RBC 3.84 3.80 - 5.20 x10E12/L 12/05/2018 6:15 AM CDT [facility] Hemoglobin 11.3(L) 12.0 - 15.6 gm/dL 12/05/2018 6:15 AM [facility] Hematocrit 35.2(L) 35.9 - 45.5 % 12/05/2018 6:15 AM [facility] MCV 91.7 80.7 - 98.3 fl 12/05/2018 6:15 AM CDT [facility] MCH 29.4 26.7 - 34.0 pg 12/05/2018 6:15 AM [facility] MCHC 32.1 30.8 - 35.9 gm/dL 12/05/2018 6:15 AM [facility] Platelet Count 209 153 - 416 x10E9/L 12/05/2018 6:15 AM [facility] RDW-CV 13.6 12.1 - 14.9 % 12/05/2018 6:15 AM [facility] MPV 11.5 9.4 - 12.9 fl 12/05/2018 6:15 AM [facility] Neutrophils % 71.1 44.0 - 73.0 % 12/05/2018 6:15 AM [facility] Lymphocytes % 17.2(L) 20.0 - 43.0 % 12/05/2018 6:15 AM [facility] Monocytes % 6.2 5.0 - 13.0 % 12/05/2018 6:15 AM [facility] Eosinophils % 1.1 0.0 - 6.0 % 12/05/2018 6:15 AM [facility] Basophils % 0.4 0.0 - 2.0 % 12/05/2018 6:15 AM [facility] Immature Granulocytes 4.0(H) 0 - 1 % 12/05/2018 6:15 AM [facility] Neutrophil Absolute 9.40(H) 2.01 - 7.14 x10E9/L 12/05/2018 6:15 AM CDT [facility] Lymphocytes Absolute 2.27 1.07 - 3.94 x10E9/L 12/05/2018 6:15 AM CDT [facility] Monocytes Absolute 0.82 0.26 - 1.07 x10E9/L 12/05/2018 6:15 AM CDT [facility] Eosinophils Absolute 0.15 0 - 0.47 x10E9/L 12/05/2018 6:15 AM CDT [facility] Basophils Absolute 0.05 0 - 0.08 x10E9/L 12/05/2018 6:15 AM CDT [facility] Immature Granulocytes Absolute 0.53(H) 0.00 - 0.06 x10E9/L 12/05/2018 6:15 AM CDT [facility] nRBC Auto 0 /100 WBC 12/05/2018 6:15 AM CDT [facility] Blood BLOOD SPECIMEN / Unknown Lab Venipuncture / Unknown 12/05/2018 5:50 AM CDT 12/05/2018 6:06 AM CDT Vijaya Ashton MD LAB - HEMATOLOGY OR DERABLES Performing Organization Address City/[facility]/ZIP Co de Phone Number [facility] [address] [place] [address] * TYPE + SCREEN PANEL (12/05/2018 5:50 AM CDT) Pathologist [facility] ABO B 12/05/2018 6:47 AM CDT [facility] Rh Type Positive 12/05/2018 6:47 AM CDT [facility] Comment:History checked. Antibody Screen Negative 12/05/2018 6:47 AM CDT [facility] Blood Bank BLOOD SPECIMEN / Unknown Lab Venipuncture / Unknown 12/05/2018 5:50 AM CDT 12/05/2018 6:06 AM CDT Vijaya Ashton MD LAB - BLOOD BANK OR DERABLES Performing Organization Address City/State/[facility] Co de Phone Number [facility] [address] [place] [address] * PREPARE (CROSSMATCH) RBC UNIT(S), 2 Units (12/05/2018 1:45 AM CDT) Pathologist [facility] Product Code [id number] [facility] Unit Donor # [id number] S [facility] ABO Donor Type B [facility] Rh Type Unit POS [facility] B[facility] Unit Status Ret'd [facility] ABO Rh Type Unit BPOS [facility] Donor Unit Expiration Date [facility] Blood Type Barcode 7300 [facility] Product Code [id number] [facility] Unit Donor # [id number] S [facility] ABO Donor Type B [facility] Rh Type Unit POS [facility] B[facility] Unit Status Ret'd [facility] ABO Rh Type Unit BPOS [facility] Donor Unit Expiration Date [facility] Blood Type Barcode 7300 [facility] Blood Bank BLOOD SPECIMEN / Unknown 12/05/2018 1:45 AM CDT Vijaya Ashton MD LAB - BLOOD BANK OR DERABLES Performing Organization Address [facility] Co de Phone Number [facility] [address] [place] [address] * (ABNORMAL) GLUCOSE - POINT OF CARE (12/04/2018 8:36 PM CDT) Pathologist [facility] Glucose WB/POC 125(H) 70 - 106 mg/dL 12/04/2018 8:46 PM CDT [facility] Specimen Type Arterial/C apillary 12/04/2018 8:46 PM CDT [facility] Blood BLOOD SPECIMEN / Unknown 12/04/2018 8:36 PM CDT 12/04/2018 8:46 PM CDT Narrative [facility] - 12/04/2018 8:46 PM CDT (3) Treated per Protocol Gely Medina MD LAB - POINT OF CARE ORDERABLES Performing Organization Address [facility] Co de Phone Number [facility] [address] [place] [address] * (ABNORMAL) GLUCOSE - POINT OF CARE (12/04/2018 6:55 PM CDT) Glucose WB/POC 159(H) 70 - 106 mg/dL 12/04/2018 7:04 PM CDT [facility] Specimen Type Arterial/C apillary 12/04/2018 7:04 PM CDT [facility] Blood BLOOD SPECIMEN / Unknown 12/04/2018 6:55 PM CDT 12/04/2018 7:04 PM CDT Gely Medina MD LAB - POINT OF CARE ORDERABLES Performing Organization Address [facility] de Phone Number [facility] [address] [place] [phone] * GLUCOSE - POINT OF CARE (12/04/2018 11:23 AM CDT) Glucose WB/POC 103 70 - 106 mg/dL 12/04/2018 11:33 AM CDT [facility] Specimen Type Arterial/C apillary 12/04/2018 11:33 AM CDT [facility] Blood BLOOD SPECIMEN / Unknown 12/04/2018 11:23 AM CDT 12/04/2018 11:33 AM CDT Gely Medina MD LAB - POINT OF CARE ORDERABLES Performing Organization Address [facility] de Phone Number [facility] [address] [place] [address] * NONSTRESS TEST (12/04/2018 10:34 AM CDT) [...] MD ? 12/01/2018 ??8:35 AM Name: ??Cait Bárbara Mathews Date of : ??1995 Today's Date: ??11/30/2018 ? Start: ?? 832 ?Stop: ??910 ?NST RESULTS (HERNADEZ) OBJECTIVE FINDINGS [...] MD ? 11/30/2018 ??6:34 AM Name: ??Cait Bárbara Mathews Date of : ??1995 Today's Date: ??11/29/2018 ?Start: ?? 1558 ?Stop: ?? 1623 ?NST RESULTS (HERNADEZ) OBJECTIVE FINDINGS Temp: 98.2 [...] MD ? 11/30/2018 ??6:34 AM Name: ??Cait Bárbara Mathews Date of : ??1995 Today's Date: ??11/29/2018 ?Start: ??1009 ?Stop: ??1051 ?NST RESULTS (HERNADEZ) OBJECTIVE FINDINGS Temp: 98.6 [...] - 106 mg/dL 12/04/2018 6:24 AM CDT [facility] Specimen Type Arterial/C apillary 12/04/2018 6:24 AM CDT [facility] Blood BLOOD SPECIMEN / Unknown 12/04/2018 6:16 AM CDT 12/04/2018 6:24 AM CDT Gely Medina MD LAB - POINT OF CARE ORDERABLES [facility] [address] [place] [address] * (ABNORMAL) GLUCOSE - POINT OF CARE (12/03/2018 8:22 PM CDT) Glucose WB/POC 129(H) 70 - 106 mg/dL 12/03/2018 8:28 PM CDT [facility] Specimen Type Arterial/C apillary 12/03/2018 8:28 PM CDT [facility] Blood BLOOD SPECIMEN / Unknown 12/03/2018 8:22 PM CDT 12/03/2018 8:28 PM CDT Gely Medina MD LAB - POINT OF CARE ORDERABLES Performing Organization Address [facility] Co de Phone Number [facility] [address] [place] [phone] * (ABNORMAL) GLUCOSE - POINT OF CARE (12/03/2018 3:52 PM CDT) Glucose WB/POC 155(H) 70 - 106 mg/dL 12/03/2018 4:26 PM CDT [facility] Specimen Type Arterial/C apillary 12/03/2018 4:26 PM CDT [facility] Blood BLOOD SPECIMEN / Unknown 12/03/2018 3:52 PM CDT 12/03/2018 4:26 PM CDT Gely Medina MD LAB - POINT OF CARE ORDERABLES Performing Organization Address [facility] de Phone Number [facility] [address] [place] [phone] * (ABNORMAL) GLUCOSE - POINT OF CARE (12/03/2018 9:55 AM CDT) Glucose WB/POC 157(H) 70 - 106 mg/dL 12/03/2018 10:35 AM CDT [facility] Specimen Type Arterial/C apillary 12/03/2018 10:35 AM CDT [facility] Blood BLOOD SPECIMEN / Unknown 12/03/2018 9:55 AM CDT 12/03/2018 10:35 AM CDT Gely Medina MD LAB - POINT OF CARE ORDERABLES Performing Organization Address City/[facility]/ZIP Co de Phone Number [facility] [address] [place] [address] * GLUCOSE - POINT OF CARE (12/03/2018 5:58 AM CDT) Glucose WB/POC 89 70 - 106 mg/dL 12/03/2018 6:05 AM CDT [facility] Specimen Type Arterial/C apillary 12/03/2018 6:05 AM CDT [facility] Blood BLOOD SPECIMEN / Unknown 12/03/2018 5:58 AM CDT 12/03/2018 6:05 AM CDT Gely Medina MD LAB - POINT OF CARE ORDERABLES [facility] [address] [place] [phone] * (ABNORMAL) GLUCOSE - POINT OF CARE (12/02/2018 6:49 PM CDT) Glucose WB/POC 132(H) 70 - 106 mg/dL 12/02/2018 7:04 PM CDT [facility] Specimen Type Arterial/C apillary 12/02/2018 7:04 PM CDT [facility] Blood BLOOD SPECIMEN / Unknown 12/02/2018 6:49 PM CDT 12/02/2018 7:04 PM CDT Gely Medina MD LAB - POINT OF CARE ORDERABLES [facility] [address] [place] [phone] * (ABNORMAL) GLUCOSE - POINT OF CARE (12/02/2018 2:02 PM CDT) Glucose WB/POC 140(H) 70 - 106 mg/dL 12/02/2018 2:13 PM CDT [facility] Specimen Type Arterial/C apillary 12/02/2018 2:13 PM CDT [facility] Blood BLOOD SPECIMEN / Unknown 12/02/2018 2:02 PM CDT 12/02/2018 2:13 PM CDT Gely Medina MD LAB - POINT OF CARE ORDERABLES [facility] [address] [place] [address] * NONSTRESS TEST (12/02/2018 9:51 AM CDT) [...] - 106 mg/dL 12/02/2018 8:41 AM CDT [facility] Specimen Type Arterial/C apillary 12/02/2018 8:41 AM CDT [facility] Blood BLOOD SPECIMEN / Unknown 12/02/2018 8:22 AM CDT 12/02/2018 8:41 AM CDT Gely Medina MD LAB - POINT OF CARE ORDERABLES Performing Organization Address City/[facility]/ZIP Co de Phone Number [facility] [address] [place] [phone] * GLUCOSE - POINT OF CARE (12/02/2018 5:07 AM CDT) Glucose WB/POC 96 70 - 106 mg/dL 12/02/2018 5:59 AM CDT [facility] Specimen Type Arterial/C apillary 12/02/2018 5:59 AM CDT [facility] Blood BLOOD SPECIMEN / Unknown 12/02/2018 5:07 AM CDT 12/02/2018 5:59 AM CDT Gely Medina MD LAB - POINT OF CARE ORDERABLES Performing Organization Address City/[facility]/ZIP Co de Phone Number [facility] [address] [place] [phone] * (ABNORMAL) GLUCOSE - POINT OF CARE (12/01/2018 7:14 PM CDT) Glucose WB/POC 135(H) 70 - 106 mg/dL 12/01/2018 7:45 PM CDT [facility] Specimen Type Arterial/C apillary 12/01/2018 7:45 PM CDT [facility] Blood BLOOD SPECIMEN / Unknown 12/01/2018 7:14 PM CDT 12/01/2018 7:45 PM CDT Gely Medina MD LAB - POINT OF CARE ORDERABLES Performing Organization Address [facility] Co de Phone Number [facility] [address] [place] [phone] * (ABNORMAL) GLUCOSE - POINT OF CARE (12/01/2018 2:53 PM CDT) Glucose WB/POC 129(H) 70 - 106 mg/dL 12/01/2018 3:00 PM CDT [facility] Specimen Type Arterial/C apillary 12/01/2018 3:00 PM CDT [facility] Blood BLOOD SPECIMEN / Unknown 12/01/2018 2:53 PM CDT 12/01/2018 3:00 PM CDT Gely Medina MD LAB - POINT OF CARE ORDERABLES Performing Organization Address [facility] Co de Phone Number [facility] [address] [place] [phone] * (ABNORMAL) GLUCOSE - POINT OF CARE (12/01/2018 12:44 PM CDT) Pathologist [facility] Glucose WB/POC 111(H) 70 - 106 mg/dL 12/01/2018 12:59 PM CDT [facility] Specimen Type Arterial/C apillary 12/01/2018 12:59 PM CDT [facility] Blood BLOOD SPECIMEN / Unknown 12/01/2018 12:44 PM CDT 12/01/2018 12:59 PM CDT Gely Medina MD LAB - POINT OF CARE ORDERABLES Performing Organization Address [facility] Co de Phone Number [facility] [address] [place] [phone] * PREPARE (CROSSMATCH) RBC UNIT(S), 2 Units (12/01/2018 6:30 AM CDT) Product Code [id number] [facility] Unit Donor # [id number] S [facility] ABO Donor Type O [facility] Rh Type Unit POS [facility] Unit Status Ret'd [facility] BLO OD [facility]ANK LAB ABO Rh Type Unit OPOS [facility] Donor Unit Expiration Date [facility] Blood Type Barcode 5100 [facility] Product Code [id number] [facility] Unit Donor # [id number] S [facility] ABO Donor Type O [facility] Rh Type Unit POS [facility] B[facility] Unit Status Ret'd [facility] ABO Rh Type Unit OPOS [facility] Donor Unit Expiration Date [facility] Blood Type Barcode 5100 [facility] Blood Bank BLOOD SPECIMEN / Unknown 12/01/2018 6:30 AM CDT Vijaya Ashton MD LAB - BLOOD BANK OR DERABLES Performing Organization Address City/State/[facility] Co de Phone Number [facility] [address] [phone] * (ABNORMAL) CBC W AUTO DIFFERENTIAL (12/01/2018 5:53 AM CDT) WBC 15.6(H) 4.4 - 10.7 x10E9/L 12/01/2018 6:18 AM CDT [facility] WBC Corrected x10E9/L 12/01/2018 6:18 AM CDT [facility] RBC 3.84 3.80 - 5.20 x10E12/L 12/01/2018 6:18 AM CDT [facility] Hemoglobin 11.5(L) 12.0 - 15.6 gm/dL 12/01/2018 6:18 AM CDT [facility] Hematocrit 34.9(L) 35.9 - 45.5 % 12/01/2018 6:18 AM CDT [facility] MCV 90.9 80.7 - 98.3 fl 12/01/2018 6:18 AM CDT [facility] MCH 29.9 26.7 - 34.0 pg 12/01/2018 6:18 AM CDT [facility] MCHC 33.0 30.8 - 35.9 gm/dL 12/01/2018 6:18 AM CDT [facility] Platelet Count 219 153 - 416 x10E9/L 12/01/2018 6:18 AM [facility] RDW-CV 13.4 12.1 - 14.9 % 12/01/2018 6:18 AM [facility] MPV 11.1 9.4 - 12.9 fl 12/01/2018 6:18 AM [facility] Neutrophils % 71.7 44.0 - 73.0 % 12/01/2018 6:18 AM [facility] Lymphocytes % 16.9(L) 20.0 - 43.0 % 12/01/2018 6:18 AM [facility] Monocytes % 5.7 5.0 - 13.0 % 12/01/2018 6:18 AM [facility] Eosinophils % 1.0 0.0 - 6.0 % 12/01/2018 6:18 AM [facility] Basophils % 0.3 0.0 - 2.0 % 12/01/2018 6:18 AM [facility] Immature Granulocytes 4.4(H) 0 - 1 % 12/01/2018 6:18 AM [facility] Neutrophil Absolute 11.20(H) 2.01 - 7.14 x10E9/L 12/01/2018 6:18 AM [facility] Lymphocytes Absolute 2.63 1.07 - 3.94 x10E9/L 12/01/2018 6:18 AM [facility] Monocytes Absolute 0.89 0.26 - 1.07 x10E9/L 12/01/2018 6:18 AM [facility] Eosinophils Absolute 0.15 0 - 0.47 x10E9/L 12/01/2018 6:18 AM [facility] Basophils Absolute 0.05 0 - 0.08 x10E9/L 12/01/2018 6:18 AM [facility] Immature Granulocytes Absolute 0.68(H) 0.00 - 0.06 x10E9/L 12/01/2018 6:18 AM [facility] nRBC Auto 0 /100 WBC 12/01/2018 6:18 AM [facility] Blood BLOOD SPECIMEN / Unknown Lab Venipuncture / Unknown 12/01/2018 5:53 AM CDT 12/01/2018 6:07 AM CDT Cheryl Tello MD LAB - HEMATOLOGY ORD ERABLES Performing Organization Address [facility] Co de Phone Number [facility] [address] [place] [address] * TYPE + SCREEN PANEL (12/01/2018 5:53 AM CDT) ABO B 12/01/2018 6:47 AM CDT [facility] Rh Type Positive 12/01/2018 6:47 AM CDT [facility] Comment:History checked. Antibody Screen Negative 12/01/2018 6:47 AM CDT [facility] Blood Bank BLOOD SPECIMEN / Unknown Lab Venipuncture / Unknown 12/01/2018 5:53 AM CDT 12/01/2018 6:07 AM CDT Cheryl Tello MD LAB - BLOOD BANK ORD ERABLES Performing Organization Address [facility] Co de Phone Number [facility] [address] [place] [address] * GLUCOSE - POINT OF CARE (12/01/2018 5:52 AM CDT) Glucose WB/POC 100 70 - 106 mg/dL 12/01/2018 11:14 AM CDT [facility] Specimen Type Arterial/C apillary 12/01/2018 11:14 AM CDT [facility] Blood BLOOD SPECIMEN / Unknown 12/01/2018 5:52 AM CDT 12/01/2018 11:14 AM CDT Gely Medina MD LAB - POINT OF CARE ORDERABLES Performing Organization Address City/[facility] Co de Phone Number [facility] [address] [place] [address] * (ABNORMAL) GLUCOSE - POINT OF CARE (11/30/2018 6:36 PM CDT) Glucose WB/POC 127(H) 70 - 106 mg/dL 11/30/2018 6:50 PM CDT [facility] Specimen Type Arterial/C apillary 11/30/2018 6:50 PM CDT [facility] Blood BLOOD SPECIMEN / Unknown 11/30/2018 6:36 PM CDT 11/30/2018 6:50 PM CDT Gely Medina MD LAB - POINT OF CARE ORDERABLES [facility] [address] [place] [address] * (ABNORMAL) GLUCOSE - POINT OF CARE (11/30/2018 2:52 PM CDT) Glucose WB/POC 119(H) 70 - 106 mg/dL 11/30/2018 3:14 PM CDT [facility] Specimen Type Arterial/C apillary 11/30/2018 3:14 PM CDT [facility] Blood BLOOD SPECIMEN / Unknown 11/30/2018 2:52 PM CDT 11/30/2018 3:13 PM CDT Gely Medina MD LAB - POINT OF CARE ORDERABLES Performing Organization Address [facility]/ZIP Co de Phone Number [facility] [address] [place] [phone] * (ABNORMAL) GLUCOSE - POINT OF CARE (11/30/2018 9:13 AM CDT) Glucose WB/POC 131(H) 70 - 106 mg/dL 11/30/2018 9:21 AM CDT [facility] Specimen Type Arterial/C apillary 11/30/2018 9:21 AM CDT [facility] Blood BLOOD SPECIMEN / Unknown 11/30/2018 9:13 AM CDT 11/30/2018 9:21 AM CDT Gely Medina MD LAB - POINT OF CARE ORDERABLES [facility] [address] [place] [address] * GLUCOSE - POINT OF CARE (11/30/2018 6:07 AM CDT) Glucose WB/POC 100 70 - 106 mg/dL 11/30/2018 6:15 AM CDT [facility] Specimen Type Arterial/C apillary 11/30/2018 6:15 AM CDT [facility] Blood BLOOD SPECIMEN / Unknown 11/30/2018 6:07 AM CDT 11/30/2018 6:15 AM CDT Gely Medina MD LAB - POINT OF CARE ORDERABLES Performing Organization Address City/State/[facility] Co de Phone Number [facility] [address] [place] [address] * NONSTRESS TEST (11/29/2018 10:24 PM CDT) [...] - 106 mg/dL 11/29/2018 8:35 PM CDT [facility] Specimen Type Arterial/C apillary 11/29/2018 8:35 PM CDT [facility] Blood BLOOD SPECIMEN / Unknown 11/29/2018 8:04 PM CDT 11/29/2018 8:35 PM CDT Gely Medina MD LAB - POINT OF CARE ORDERABLES Performing Organization Address [facility] Co de Phone Number [facility] [address] [place] [address] * (ABNORMAL) GLUCOSE - POINT OF CARE (11/29/2018 2:15 PM CDT) Glucose WB/POC 107(H) 70 - 106 mg/dL 11/29/2018 2:22 PM CDT [facility] Specimen Type Arterial/C apillary 11/29/2018 2:22 PM CDT [facility] Blood BLOOD SPECIMEN / Unknown 11/29/2018 2:15 PM CDT 11/29/2018 2:22 PM CDT Gely Medina MD LAB - POINT OF CARE ORDERABLES Performing Organization Address [facility]/ZIP Co de Phone Number [facility] [address] [place], [place] [id number] * (ABNORMAL) GLUCOSE - POINT OF CARE (11/29/2018 12:10 PM CDT) Glucose WB/POC 129(H) 70 - 106 mg/dL 11/29/2018 12:39 PM CDT [facility] Specimen Type Arterial/C apillary 11/29/2018 12:39 PM CDT [facility] Blood BLOOD SPECIMEN / Unknown 11/29/2018 12:10 PM CDT 11/29/2018 12:39 PM CDT Gely Medina MD LAB - POINT OF CARE ORDERABLES Performing Organization Address [facility] Co de Phone Number [facility] [address] [place] [address] * GLUCOSE - POINT OF CARE (11/29/2018 5:10 AM CDT) Glucose WB/POC 100 70 - 106 mg/dL 11/29/2018 5:41 AM CDT [facility] Specimen Type Arterial/C apillary 11/29/2018 5:41 AM CDT [facility] Blood BLOOD SPECIMEN / Unknown 11/29/2018 5:10 AM CDT 11/29/2018 5:41 AM CDT Gely Medina MD LAB - POINT OF CARE ORDERABLES Performing Organization Address [facility] de Phone Number [facility] [address] [place] [address] * NONSTRESS TEST (11/28/2018 9:19 PM CDT) [...] Yes OTHER INFORMATION Inpatient Interventions: None Elizabeth M Tervort, RN Non-Stress Test Indications: Patient Active Problem [...] - 106 mg/dL 11/28/2018 7:36 PM CDT [facility] Specimen Type Arterial/C apillary 11/28/2018 7:36 PM CDT [facility] Blood BLOOD SPECIMEN / Unknown 11/28/2018 7:25 PM CDT 11/28/2018 7:36 PM CDT Narrative [facility] - 11/28/2018 7:36 PM CDT (3) Treated per Protocol Gely Medina MD LAB - POINT OF CARE ORDERABLES [facility] [address] [place] [address] * PROTEIN CREATININE RATIO URINE RANDOM PNL (11/28/2018 4:48 PM CDT) Protein Urine 18.5 mg/dL 11/28/2018 5:23 PM CDT [facility] Creatinine Urine 65.84 mg/dL 11/28/2018 5:23 PM CDT [facility] Protein/Creatin ine Ratio Urine 0.28 11/28/2018 5:23 PM CDT [facility] Urine URINE SPECIMEN OBTAINED BY CLEAN CATCH PROCEDURE / Unknown Collection / Unknown 11/28/2018 4:48 PM CDT 11/28/2018 5:00 PM CDT Cheryl Tello MD LAB - URINE CHEMISTR Y ORDERABLES Performing Organization Address City/[facility] Co de Phone Number [facility] [address] [place] [phone] * (ABNORMAL) GLUCOSE - POINT OF CARE (11/28/2018 4:42 PM CDT) Glucose WB/POC 136(H) 70 - 106 mg/dL 11/28/2018 5:06 PM CDT [facility] Specimen Type Arterial/C apillary 11/28/2018 5:06 PM CDT [facility] Blood BLOOD SPECIMEN / Unknown 11/28/2018 4:42 PM CDT 11/28/2018 5:06 PM CDT Gely Medina MD LAB - POINT OF CARE ORDERABLES Performing Organization Address [facility] Co de Phone Number [facility] [address] [place] [address] * (ABNORMAL) GLUCOSE - POINT OF CARE (11/28/2018 12:41 PM CDT) Glucose WB/POC 144(H) 70 - 106 mg/dL 11/28/2018 12:52 PM CDT [facility] Specimen Type Arterial/C apillary 11/28/2018 12:52 PM CDT [facility] Blood BLOOD SPECIMEN / Unknown 11/28/2018 12:41 PM CDT 11/28/2018 12:52 PM CDT Gely Medina MD LAB - POINT OF CARE ORDERABLES Performing Organization Address City/[facility] Co de Phone Number [facility] [address] [place] [phone] * CULTURE URINE (11/28/2018 10:25 AM CDT) Culture Urine 10,000-50,000 CFU/mL [facility] luis daniel ALESSANDRO 11/29/2018 2:39 PM CDT [facility] Urine URINE SPECIMEN OBTAINED BY CLEAN CATCH PROCEDURE / Unknown Collection / Unknown 11/28/2018 10:25 AM CDT 11/28/2018 10:33 AM CDT Cheryl Tello MD LAB - MICROBIOLOGY O RDERABLES [facility] [address] [place] [id number] [place] [address] * (ABNORMAL) URINE MICROSCOPIC ONLY REFLEX TO CULTURE (11/28/2018 10:25 AM CDT) Reflex Status Culture to follow 11/28/2018 11:12 AM CDT [facility] RBC UA 3-5 None Seen, 0-2, 3-5 # /hpf 11/28/2018 11:12 AM CDT [facility] WBC UA 0-5 None Seen, 0-5 # /hpf 11/28/2018 11:12 AM CDT [facility] Bacteria UA 2+(A) None Seen 11/28/2018 11:12 AM CDT [facility] Squamous Epithelial Cells 11-20(A) None Seen, 0-2, 3-5 /hpf 11/28/2018 11:12 AM CDT [facility] Mucus UA 1+ /LPF 11/28/2018 11:12 AM CDT [facility] Hyaline Casts 0-2 None Seen, 0-2 # /lpf 11/28/2018 11:12 AM CDT [facility] Urine URINE SPECIMEN OBTAINED BY CLEAN CATCH PROCEDURE / Unknown Collection / Unknown 11/28/2018 10:25 AM CDT 11/28/2018 10:33 AM CDT Narrative [facility] - 11/28/2018 11:12 AM CDT Cheryl Tello MD LAB - URINALYSIS ORD ERABLES [facility] [address] [place] [address] * (ABNORMAL) URINALYSIS REFLEX MICROSCOPIC REFLEX CULTURE (11/28/2018 10:25 AM CDT) Color UA Yellow Straw, Yellow 11/28/2018 11:12 AM CDT [facility] Clarity UA Slt Cloudy(A) Clear 11/28/2018 11:12 AM CDT [facility] Glucose UA Negative Negative 11/28/2018 11:12 AM CDT [facility] Bilirubin UA Negative Negative 11/28/2018 11:12 AM CDT [facility] Ketone UA Negative Negative 11/28/2018 11:12 AM CDT [facility] Specific [place] UA 1.015 1.005 - 1.030 11/28/2018 11:12 AM CDT [facility] Blood UA 1+(A) Negative 11/28/2018 11:12 AM CDT [facility] pH UA 7.0 5.0 - 8.0 pH 11/28/2018 11:12 AM CDT [facility] Protein UA Negative Negative 11/28/2018 11:12 AM CDT [facility] Urobilinogen UA Negative Negative mg/dL 11/28/2018 11:12 AM CDT [facility] Nitrite UA Negative Negative 11/28/2018 11:12 AM CDT [facility] Leukocyte UA Trace(A) Negative 11/28/2018 11:12 AM CDT [facility] Urine Microscopy Urine microscopy to follow 11/28/2018 11:12 AM CDT [facility] Reflex Status Culture to follow 11/28/2018 11:12 AM T [facility] Urine URINE SPECIMEN OBTAINED BY CLEAN CATCH PROCEDURE / Unknown Collection / Unknown 11/28/2018 10:25 AM CDT 11/28/2018 10:33 AM CDT Narrative [facility] - 11/28/2018 11:12 AM CDT Cheryl Tello MD LAB - URINALYSIS ORD ERABLES [facility] [address] [place] [address] * PREPARE (CROSSMATCH) RBC UNIT(S), 2 Units (11/28/2018 5:30 AM CDT) Product Code [id number] [facility] Unit Donor # [id number] S [facility] ABO Donor Type B [facility] Rh Type Unit POS [facility] Unit Status Ret'd [facility] ABO Rh Type Unit BPOS [facility] Donor Unit Expiration Date [facility] Blood Type Barcode 7300 [facility] Product Code [id number] [facility] Unit Donor # [id number] S [facility] ABO Donor Type B [facility] Rh Type Unit POS [facility] Unit Status Ret'd [facility] ABO Rh Type Unit BPOS [facility] Donor Unit Expiration Date [facility] Blood Type Barcode 7300 [facility] Blood Bank BLOOD SPECIMEN / Unknown 11/28/2018 5:30 AM CDT Cheryl Tello MD LAB - BLOOD BANK ORD ERABLES [facility] [address] [phone] * GLUCOSE - POINT OF CARE (11/28/2018 5:06 AM CDT) Pathologist [facility] Glucose WB/POC 106 70 - 106 mg/dL 11/28/2018 5:17 AM CDT [facility] Specimen Type Arterial/C apillary 11/28/2018 5:17 AM CDT [facility] Blood BLOOD SPECIMEN / Unknown 11/28/2018 5:06 AM CDT 11/28/2018 5:17 AM CDT Narrative [facility] - 11/28/2018 5:17 AM CDT (2) Provider Notified Gely Medina MD LAB - POINT OF CARE ORDERABLES Performing Organization Address City/[facility]/ZIP Co de Phone Number [facility] [address] [place] [address] * BLOOD TYPE VERIFICATION (11/28/2018 3:34 AM CDT) ABO B 11/28/2018 6:03 AM CDT [facility] Rh Type Positive 11/28/2018 6:03 AM CDT [facility] Blood Bank BLOOD SPECIMEN / Unknown Lab Venipuncture / Unknown 11/28/2018 3:34 AM CDT 11/28/2018 5:32 AM CDT Gely Medina MD LAB - BLOOD BANK OR DERABLES [facility] [address] [phone] * (ABNORMAL) DIFFERENTIAL MANUAL (11/28/2018 3:34 AM CDT) WBC Auto 13.7 x10E9/L 11/28/2018 4:46 AM CDT [facility] WBC Corrected 4.4 - 10.7 x10E9/L 11/28/2018 4:46 AM [facility] nRBC /100 WBC 11/28/2018 4:46 AM [facility] Neutrophil % Manual 80(H) 44 - 73 % 11/28/2018 4:46 [facility] Lymphocytes % Manual 8(L) 20 - 43 % 11/28/2018 4:46 AM [facility] Monocytes % Manual 1(L) 5 - 13 % 11/28/2018 4:46 AM CDT [facility] Eosinophils % Manual 1 0 - 6 % 11/28/2018 4:46 AM [facility] Atypical Lymphocyte % Manual 4(H) <=0 % 11/28/2018 4:46 AM [facility] Band % Manual 2 0 - 11 % 11/28/2018 4:46 AM CDT [facility] Waterfall Manual 3(H) <=0 % 11/28/2018 4:46 AM [facility] Myelocytes % Manual 1(H) <=0 % 11/28/2018 4:46 AM [facility] Cells Counted 100 # cells 11/28/2018 4:46 AM [facility] RBC Morphology Normal 11/28/2018 4:46 AM [facility] WBC Morph Normal 11/28/2018 4:46 AM CDT [facility] Platelet Estimation Normal 11/28/2018 4:46 AM CDT [facility] Blood BLOOD SPECIMEN / Unknown Lab Venipuncture / Unknown 11/28/2018 3:34 AM CDT 11/28/2018 4:04 AM CDT Cheryl Tello MD LAB - HEMATOLOGY ORD ERABLES [facility] [address] [place] [address] * (ABNORMAL) COMPREHENSIVE METABOLIC PANEL (11/28/2018 3:34 AM CDT) Glucose 104 74 - 106 mg/dL 11/28/2018 4:41 AM [facility] Sodium 137 136 - 145 mmol/L 11/28/2018 4:41 AM [facility] Potassium 3.9 3.5 - 5.1 mmol/L 11/28/2018 4:41 AM [facility] Chloride 107 98 - 107 mmol/L 11/28/2018 4:41 AM [facility] CO2 21(L) 23 - 31 mmol/L 11/28/2018 4:41 AM T [facility] Calcium 9.0 8.4 - 10.2 mg/dL 11/28/2018 4:41 AM [facility] Anion Gap 9 8 - 16 mmol/L 11/28/2018 4:41 AM [facility] BUN 7 7 - 18.7 mg/dL 11/28/2018 4:41 AM [facility] Creatinine 0.37(L) 0.55 - 1.02 mg/dL 11/28/2018 4:41 AM [facility] Alkaline Phosphatase 156(H) 40 - 150 U/L 11/28/2018 4:41 AM CDT [facility] ALT 11(L) 13 - 61 U/L 11/28/2018 4:41 AM [facility] AST 10 5 - 34 U/L 11/28/2018 4:41 AM [facility] Protein Total 6.0(L) 6.4 - 8.3 gm/dL 11/28/2018 4:41 AM [facility] Albumin 3.3(L) 3.5 - 5.2 gm/dL 11/28/2018 4:41 AM CDT [facility] Bilirubin Total 0.2 0.2 - 1.0 mg/dL 11/28/2018 4:41 AM CDT [facility] eGFR by MDRD >60 >60 mL/min/1.7 3m2 11/28/2018 4:41 AM CDT [facility] eGFR by MDRD >60 >60 mL/min/1.7 3m2 11/28/2018 4:41 AM CDT [facility] Blood BLOOD SPECIMEN / Unknown Lab Venipuncture / Unknown 11/28/2018 3:34 AM CDT 11/28/2018 4:04 AM CDT Cheryl Tello MD LAB - CHEMISTRY [facility] Organization Address City/State/ZIP Co de Phone Number [facility] [address] [place] [address] * (ABNORMAL) CBC W AUTO DIFFERENTIAL (11/28/2018 3:34 AM CDT) WBC 13.7(H) 4.4 - 10.7 x10E9/L 11/28/2018 4:24 AM CDT [facility] WBC Corrected x10E9/L 11/28/2018 4:24 AM CDT [facility] RBC 3.54(L) 3.80 - 5.20 x10E12/L 11/28/2018 4:24 AM CDT [facility] Hemoglobin 10.4(L) 12.0 - 15.6 gm/dL 11/28/2018 4:24 AM CDT [facility] Hematocrit 32.4(L) 35.9 - 45.5 % 11/28/2018 4:24 AM CDT [facility] MCV 91.5 80.7 - 98.3 fl 11/28/2018 4:24 AM CDT [facility] MCH 29.4 26.7 - 34.0 pg 11/28/2018 4:24 AM CDT [facility] MCHC 32.1 30.8 - 35.9 gm/dL 11/28/2018 4:24 AM CDT [facility] Platelet Count 214 153 - 416 x10E9/L 11/28/2018 4:24 AM CDT [facility] RDW-CV 13.0 12.1 - 14.9 % 11/28/2018 4:24 AM CDT [facility] MPV 11.2 9.4 - 12.9 fl 11/28/2018 4:24 AM CDT [facility] nRBC Auto 0 /100 WBC 11/28/2018 4:24 AM CDT [facility] Blood BLOOD SPECIMEN / Unknown Lab Venipuncture / Unknown 11/28/2018 3:34 AM CDT 11/28/2018 4:04 AM CDT Cheryl Tello MD LAB - HEMATOLOGY ORD ERABLES [facility] [address] [place], [place] [id number] * (ABNORMAL) GLUCOSE - POINT OF CARE (11/27/2018 7:02 PM CDT) Glucose WB/POC 150(H) 70 - 106 mg/dL 11/27/2018 7:09 PM CDT [facility] Specimen Type Venous 11/27/2018 7:09 PM CDT [facility] Blood BLOOD SPECIMEN / Unknown 11/27/2018 7:02 PM CDT 11/27/2018 7:09 PM CDT Gely Medina MD LAB - POINT OF CARE ORDERABLES Performing Organization Address City/[facility]/ZIP Co de Phone Number [facility] [address] [place] [phone] * (ABNORMAL) GLUCOSE - POINT OF CARE (11/27/2018 1:32 PM CDT) Glucose WB/POC 117(H) 70 - 106 mg/dL 11/27/2018 1:41 PM CDT [facility] Specimen Type Venous 11/27/2018 1:41 PM CDT [facility] Blood BLOOD SPECIMEN / Unknown 11/27/2018 1:32 PM CDT 11/27/2018 1:41 PM CDT Gely Medina MD LAB - POINT OF CARE ORDERABLES Performing Organization Address [facility] de Phone Number [facility] [address] [place] [address] * (ABNORMAL) GLUCOSE - POINT OF CARE (11/27/2018 9:19 AM CDT) Glucose WB/POC 119(H) 70 - 106 mg/dL 11/27/2018 10:36 AM CDT [facility] Specimen Type Venous 11/27/2018 10:36 AM CDT [facility] Blood BLOOD SPECIMEN / Unknown 11/27/2018 9:19 AM CDT 11/27/2018 10:36 AM CDT Gely Medina MD LAB - POINT OF CARE ORDERABLES Performing Organization Address [facility] de Phone Number [facility] [address] [place], [place] [id number] * NONSTRESS TEST (11/27/2018 7:44 AM CDT) Narrative Amadou Roberts MD - 11/27/2018 7:44 AM CDT Charlene Storm RN ? 11/26/2018 10:57 AM ??Name: ??Cait Mathews Date of : ??1995 Today's Date: ??11/26/2018 ?Start: ??956 ?Stop: ??1 ?NST RESULTS (HERNADEZ) OBJECTIVE FINDINGS Temp: 98.1 [...] severe abdominal pain ?Start: ??1125 ?Stop: ?? 9 ?NST RESULTS (HERNADEZ) OBJECTIVE FINDINGS , ??, [...] INFORMATION Inpatient Interventions: None Charlene Storm, FLEX Gerri Foreman MD OB GYNE ORDERABLES * NONSTRESS TEST (11/27/2018 7:43 AM CDT) Narrative Amadou Roberts MD - 11/27/2018 7:43 AM CDT Elizabeth Machuca RN ? 11/26/2018 11:57 PM NST Start:[id number] Stop:[id number] Name: ??Cait Mathews Date of : ??1995 Today's Date: ??11/26/2018 ?? NST RESULTS (HERNADEZ) OBJECTIVE FINDINGS Temp: 98 ??F (36.7 ??C), Pulse: 98, Resp: 16, BP: 119/63 NST Indication(s): Placenta Previa Uterine Irritability: Yes Contractions: Not present OBJECTIVE FINDINGS Movement: Present Monitoring Mode: External Baseline: 140 BPM Variability: Moderate Decelerations: None Accelerations: Yes OTHER INFORMATION Inpatient Interventions: None Elizabeth Machuca, FLEX Gerri Foreman MD OB GYNE ORDERABLES * (ABNORMAL) GLUCOSE - POINT OF CARE (11/27/2018 5:54 AM CDT) [facility] Glucose WB/POC 111(H) 70 - 106 mg/dL 11/27/2018 6:08 AM CDT [facility] Specimen Type Arterial/C apillary 11/27/2018 6:08 AM CDT [facility] Blood BLOOD SPECIMEN / Unknown 11/27/2018 5:54 AM CDT 11/27/2018 6:08 AM CDT Narrative [facility] - 11/27/2018 6:08 AM CDT (2) Provider Notified Gely Medina MD LAB - POINT OF CARE ORDERABLES [facility] [address] [place] [address] * (ABNORMAL) GLUCOSE - POINT OF CARE (11/26/2018 11:03 PM CDT) Glucose WB/POC 185(H) 70 - 106 mg/dL 11/26/2018 11:39 PM CDT [facility] Specimen Type Arterial/C apillary 11/26/2018 11:39 PM CDT [facility] Blood BLOOD SPECIMEN / Unknown 11/26/2018 11:03 PM CDT 11/26/2018 11:39 PM CDT Narrative [facility] - 11/26/2018 11:39 PM CDT (2) Provider Notified Gely Medina MD LAB - POINT OF CARE ORDERABLES [facility] [address] [place] [address] [phone] * (ABNORMAL) GLUCOSE - POINT OF CARE (11/26/2018 9:56 PM CDT) Glucose WB/POC 205(H) 70 - 106 mg/dL 11/26/2018 10:04 PM CDT [facility] Specimen Type Arterial/C apillary 11/26/2018 10:04 PM CDT [facility] Blood BLOOD SPECIMEN / Unknown 11/26/2018 9:56 PM CDT 11/26/2018 10:04 PM CDT Narrative [facility] - 11/26/2018 10:04 PM CDT (2) Provider Notified Gely Medina MD LAB - POINT OF CARE ORDERABLES [facility] [address] [place] [address] [phone] * (ABNORMAL) GLUCOSE - POINT OF CARE (11/26/2018 3:04 PM CDT) Glucose WB/POC 116(H) 70 - 106 mg/dL 11/26/2018 3:12 PM CDT [facility] Specimen Type Arterial/C apillary 11/26/2018 3:12 PM CDT [facility] Blood BLOOD SPECIMEN / Unknown 11/26/2018 3:04 PM CDT 11/26/2018 3:12 PM CDT Gely Medina MD LAB - POINT OF CARE ORDERABLES Performing Organization Address [facility] Co de Phone Number [facility] [address] [place] [address] [phone] * (ABNORMAL) GLUCOSE - POINT OF CARE (11/26/2018 10:27 AM CDT) Glucose WB/POC 152(H) 70 - 106 mg/dL 11/26/2018 10:35 AM CDT [facility] Specimen Type Arterial/C apillary 11/26/2018 10:35 AM CDT [facility] Blood BLOOD SPECIMEN / Unknown 11/26/2018 10:27 AM CDT 11/26/2018 10:35 AM CDT Gely Medina MD LAB - POINT OF CARE ORDERABLES Performing Organization Address [facility] Co de Phone Number [facility] [address] [place] [address] [phone] * (ABNORMAL) GLUCOSE - POINT OF CARE (11/26/2018 5:11 AM CDT) Glucose WB/POC 139(H) 70 - 106 mg/dL 11/26/2018 5:40 AM CDT [facility] Specimen Type Arterial/C apillary 11/26/2018 5:40 AM CDT [facility] Blood BLOOD SPECIMEN / Unknown 11/26/2018 5:11 AM CDT 11/26/2018 5:40 AM CDT Gely Medina MD LAB - POINT OF CARE ORDERABLES Performing Organization Address [facility] Co de Phone Number [facility] [address] [place] [address] [phone] * (ABNORMAL) GLUCOSE - POINT OF CARE (11/25/2018 8:22 PM CDT) Glucose WB/POC 132(H) 70 - 106 mg/dL 11/25/2018 9:10 PM CDT [facility] Specimen Type Arterial/C apillary 11/25/2018 9:10 PM CDT [facility] Blood BLOOD SPECIMEN / Unknown 11/25/2018 8:22 PM CDT 11/25/2018 9:10 PM CDT Narrative [facility] - 11/25/2018 9:10 PM CDT (3) Treated per Protocol Gely Medina MD LAB - POINT OF CARE ORDERABLES Performing Organization Address City/[facility]/ZIP Co de Phone Number [facility] [address] [place] [address] * (ABNORMAL) GLUCOSE - POINT OF CARE (11/25/2018 7:10 PM CDT) Pathologist [facility] Glucose WB/POC 203(H) 70 - 106 mg/dL 11/25/2018 7:25 PM CDT [facility] Specimen Type Arterial/C apillary 11/25/2018 7:25 PM CDT [facility] Blood BLOOD SPECIMEN / Unknown 11/25/2018 7:10 PM CDT 11/25/2018 7:25 PM CDT Gely Medina MD LAB - POINT OF CARE ORDERABLES [facility] [address] [place] [address] * PREPARE (CROSSMATCH) RBC UNIT(S), 2 Units (11/25/2018 4:30 PM CDT) Product Code [id number] [facility] Unit Donor # [id number] S [facility] ABO Donor Type B [facility] Rh Type Unit POS [facility] Unit Status Ret'd [facility] ABO Rh Type Unit BPOS [facility] Donor Unit Expiration Date [id number] [facility] Blood Type Barcode 7300 [facility] Product Code [id number] [facility] Unit Donor # [id number] S [facility] ABO Donor Type B [facility] Rh Type Unit POS [facility] Unit Status Ret'd [facility] ABO Rh Type Unit BPOS [facility] Donor Unit Expiration Date [id number] [facility] Blood Type Barcode 7300 [facility] Blood Bank BLOOD SPECIMEN / Unknown 11/25/2018 4:30 PM CDT Luciana Yañez DO LAB - BLOOD BANK O RDERABLES Performing Organization Address City/[facility]/ZIP Co de Phone Number [facility] [address] [place], [place] [address] [phone] * CULTURE URINE (11/25/2018 6:42 AM CDT) Culture Urine No growth (<100 CFU/mL) ALESSANDRO 11/26/2018 11:30 AM CDT [facility] Urine URINE SPECIMEN OBTAINED BY CLEAN CATCH PROCEDURE / Unknown Collection / Unknown 11/25/2018 6:42 AM CDT 11/25/2018 6:47 AM CDT Vijaya Ashton MD LAB - MICROBIOLOGY ORDERABLES [facility] [address] [place], [place] [address] [place] [address] * (ABNORMAL) URINE MICROSCOPIC ONLY REFLEX TO CULTURE (11/25/2018 6:42 AM CDT) Reflex Status Culture to follow 11/25/2018 7:06 AM CDT [facility] RBC UA >100(A) None Seen, 0-2, 3-5 # /hpf 11/25/2018 7:06 AM CDT [facility] WBC UA 6-10(A) None Seen, 0-5 # /hpf 11/25/2018 7:06 AM CDT [facility] Bacteria UA None Seen None Seen 11/25/2018 7:06 AM CDT [facility] Squamous Epithelial Cells 6-10(A) None Seen, 0-2, 3-5 /hpf 11/25/2018 7:06 AM CDT [facility] Mucus UA 1+ /LPF 11/25/2018 7:06 AM CDT [facility] Urine URINE SPECIMEN OBTAINED BY CLEAN CATCH PROCEDURE / Unknown Collection / Unknown 11/25/2018 6:42 AM CDT 11/25/2018 6:47 AM CDT Narrative [facility] - 11/25/2018 7:06 AM CDT Vijaya Ashton MD LAB - URINALYSIS OR DERABLES [facility] [address] [place] [address] * (ABNORMAL) URINALYSIS REFLEX MICROSCOPIC REFLEX CULTURE (11/25/2018 6:42 AM CDT) Color UA Yellow Straw, Yellow 11/25/2018 7:01 AM T [facility] Clarity UA Slt Cloudy(A) Clear 11/25/2018 7:01 AM [facility] Glucose UA Negative Negative 11/25/2018 7:01 AM [facility] Bilirubin UA Negative Negative 11/25/2018 7:01 AM [facility] Ketone UA Negative Negative 11/25/2018 7:01 AM [facility] Specific [place] UA 1.018 1.005 - 1.030 11/25/2018 7:01 AM [facility] Blood UA 3+(A) Negative 11/25/2018 7:01 AM [facility] pH UA 6.0 5.0 - 8.0 pH 11/25/2018 7:01 AM [facility] Protein UA Negative Negative 11/25/2018 7:01 AM [facility] Urobilinogen UA Negative Negative mg/dL 11/25/2018 7:01 AM T [facility] Nitrite UA Negative Negative 11/25/2018 7:01 AM [facility] Leukocyte UA Trace(A) Negative 11/25/2018 7:01 AM [facility] Urine Microscopy Urine microscopy to follow 11/25/2018 7:01 AM T [facility] Reflex Status Culture to follow 11/25/2018 7:01 AM [facility] Urine URINE SPECIMEN OBTAINED BY CLEAN CATCH PROCEDURE / Unknown Collection / Unknown 11/25/2018 6:42 AM CDT 11/25/2018 6:47 AM CDT Narrative [facility] - 11/25/2018 7:01 AM CDT Vijaya Ashton MD LAB - URINALYSIS OR DERABLES Performing Organization Address City/[facility]/ZIP Co de Phone Number [facility] [address] [place] [address] * TYPE + SCREEN PANEL (11/25/2018 6:41 AM CDT) ABO B 11/25/2018 7:22 AM CDT [facility] Rh Type Positive 11/25/2018 7:22 AM CDT [facility] Comment:History checked. Antibody Screen Negative 11/25/2018 7:22 AM CDT [facility] Blood Bank BLOOD SPECIMEN / Unknown Venipuncture / Unknown 11/25/2018 6:41 AM CDT 11/25/2018 6:47 AM CDT Vijaya Ashton MD LAB - BLOOD BANK OR DERABLES Performing Organization Address [facility] Co de Phone Number [facility] [address] [place] [address] * (ABNORMAL) CBC W AUTO DIFFERENTIAL (11/25/2018 6:41 AM CDT) WBC 12.2(H) 4.4 - 10.7 x10E9/L 11/25/2018 6:51 AM CDT [facility] WBC Corrected x10E9/L 11/25/2018 6:51 AM CDT [facility] RBC 3.94 3.80 - 5.20 x10E12/L 11/25/2018 6:51 AM CDT [facility] Hemoglobin 11.8(L) 12.0 - 15.6 gm/dL 11/25/2018 6:51 AM CDT [facility] Hematocrit 35.6(L) 35.9 - 45.5 % 11/25/2018 6:51 AM CDT [facility] MCV 90.4 80.7 - 98.3 fl 11/25/2018 6:51 AM CDT [facility] MCH 29.9 26.7 - 34.0 pg 11/25/2018 6:51 AM CDT [facility] MCHC 33.1 30.8 - 35.9 gm/dL 11/25/2018 6:51 AM [facility] Platelet Count 227 153 - 416 x10E9/L 11/25/2018 6:51 AM [facility] RDW-CV 13.1 12.1 - 14.9 % 11/25/2018 6:51 AM [facility] MPV 11.1 9.4 - 12.9 fl 11/25/2018 6:51 AM [facility] Neutrophils % 73.7(H) 44.0 - 73.0 % 11/25/2018 6:51 AM [facility] Lymphocytes % 16.7(L) 20.0 - 43.0 % 11/25/2018 6:51 AM [facility] Monocytes % 5.9 5.0 - 13.0 % 11/25/2018 6:51 AM [facility] Eosinophils % 1.2 0.0 - 6.0 % 11/25/2018 6:51 AM [facility] Basophils % 0.3 0.0 - 2.0 % 11/25/2018 6:51 AM [facility] Immature Granulocytes 2.2(H) 0 - 1 % 11/25/2018 6:51 AM [facility] Neutrophil Absolute 8.96(H) 2.01 - 7.14 x10E9/L 11/25/2018 6:51 AM [facility] Lymphocytes Absolute 2.03 1.07 - 3.94 x10E9/L 11/25/2018 6:51 AM [facility] Monocytes Absolute 0.72 0.26 - 1.07 x10E9/L 11/25/2018 6:51 AM [facility] Eosinophils Absolute 0.14 0 - 0.47 x10E9/L 11/25/2018 6:51 AM [facility] Basophils Absolute 0.04 0 - 0.08 x10E9/L 11/25/2018 6:51 AM [facility] Immature Granulocytes Absolute 0.27(H) 0.00 - 0.06 x10E9/L 11/25/2018 6:51 AM [facility] nRBC Auto 0 /100 WBC 11/25/2018 6:51 AM [facility] Blood BLOOD SPECIMEN / Unknown Venipuncture / Unknown 11/25/2018 6:41 AM CDT 11/25/2018 6:47 AM CDT Vijaya Ashton MD LAB - HEMATOLOGY OR DERABLES [facility] [address] [place] [address] documented in this encounter Visit Diagnoses Not [...] bag for blood and blood product administration acetaminophen (TYLENOL) tablet 650 mg 650 mg, Oral, EVERY 6 HOURS, First dose on [place] 12/22/18 at 0000, Until Discontinued, $ Given 12/27/2018 1:06 PM CDT 650 mg $ Given 12/27/2018 7:50 AM CDT 650 mg $ Given 12/26/2018 10:57 PM CDT 650 mg bisacodyl (DULCOLAX) suppository 10 mg 10 mg, [...] bisacodyl. If bisacodyl ineffective use Fleets enema., cephalexin (KEFLEX) capsule 500 mg 500 mg, Oral, EVERY 6 HOURS, 28 doses, First dose on 12/24/18 at 1415, Last dose on 12/31/18 at 0600, Indication for anti-infective therapy: Documented infection, Site of anti-infective therapy: Wound $ Given 12/27/2018 1:06 PM CDT 500 mg $ Given 12/27/2018 7:50 AM CDT 500 mg $ Given 12/26/2018 10:57 PM CDT 500 mg diphenhydrAMINE (BENADRYL) capsule 25 mg 25 mg, Oral, AT BEDTIME PRN, Insomnia, Starting on Wed12/21/18 at 2107, Until Wed12/27/18 at 1532, $ Given 12/21/2018 11:38 PM CDT 25 mg docusate sodium (COLACE) capsule 100 mg [...] Given 12/25/2018 8:08 AM CDT 20 mg HYDROmorphone (DILAUDID) injection 0.4 mg 0.4 mg, [...] Given 12/26/2018 10:54 PM CDT 600 mg iron polysaccharides (NIFEREX 150) capsule 150 mg 150 mg, Oral, DAILY, 365 doses, First dose on Wed12/22/18 at 0900, Last dose on Wed12/21/19 at 0900, $ Given 12/24/2018 8:28 AM CDT 150 mg $ Given 12/23/2018 10:42 AM CDT 150 mg $ Given 12/22/2018 10:09 AM CDT 150 mg labetalol (NORMODYNE; TRANDATE) tablet 800 mg 800 mg, Oral, EVERY 12 HOURS, First dose (after last modification) on Wed12/27/18 at 0900, Until Discontinued $ Given 12/27/2018 8:36 AM CDT 800 mg lanolin ointment Topical, PRN, Sore or cracked [...] 12/22/2018 4:35 PM CDT 160 mg sodium phosphate rectal (FLEET SALINE) enema 133 mL 133 mL (1 enema), Rectal, DAILY PRN, Constipation, Starting on Wed12/21/18 at 2107, Until Wed12/27/18 at 1532, Use MOM first. If MOM ineffective then use bisacodyl. If bisacodyl ineffective use Fleets enema., documented in this encounter Active and Recently Administered Medications Times are shown in CDT. Scheduled Medication Order 12/25/2018 12/26/2018 12/27/2018 acetaminophen (TYLENOL) tablet 650 mg 650 mg, Oral, EVERY 6 HOURS, First dose on Wed12/22/18 at 0000, Until Discontinued, 0027 (Not Administered [...] Reason: Refused-Patient)1244 ($ Given - Provider: Georgette Bernabe RN)1744 ($ Given - Provider: Irene Dumont RN)2257 ($ Given - Provider: Jonathan Merchant, FLEX) 0750 ($ Given - Provider: Pat Rahman, FLEX)1306 ($ Given - Provider: Pat Rahman RN) cephalexin (KEFLEX) capsule 500 mg 500 mg, Oral, EVERY 6 HOURS, 28 doses, First dose on 12/24/18 at 1415, Last dose on 12/31/18 at 0600, Indication for anti-infective therapy: Documented infection, Site of anti-infective therapy: Wound 0549 ($ Given - Provider: Kathryn Manning RN)1158 ($ Given - Provider: Deann Hayes RN)1837 ($ Given - Provider: Deann Hayes RN) 0041 ($ Given - Provider: Viri Macario RN)0552 ($ Given - Provider: Viri Macario RN)1244 ($ Given - Provider: Georgette Bernabe RN)1744 ($ Given - Provider: Irene Dumont RN)2257 ($ Given - Provider: Jonathan Merchant RN) 0750 ($ Given - Provider: Pat Rahman RN)1306 ($ Given - Provider: Pat Rahman RN) [...] RN) 0840 (Not Administered - Provider: Georgette Bernbae RN - Reason: Refused-Patient) 0751 ($ Given - Provider: Pat Rahman, FLEX) ibuprofen (MOTRIN) tablet 600 mg 600 mg, Oral, EVERY 6 HOURS, First dose on Wed12/23/18 at 0400, Until Discontinued, Maximum allowable amount = 3200 mg / 24 hours. 0440 ($ Given - Provider: Kathryn Manning RN)1100 ($ Given - Provider: Deann Hayes RN)1530 ($ Given - Provider: Deann Hayes, RN)2248 ($ Given - Provider: Viri Macario, RN) 0400 (Not Administered - Provider: Viri Macario RN - Reason: Refused-Patient)0840 ($ Given - Provider: Georgette Bernabe RN)1620 ($ Given - Provider: Irene Dumont, FLEX)2254 ($ Given - Provider: Jonathan Merchant, FLEX) 0347 ($ Given - Provider: Jonathan Merchant RN)1115 ($ Given - Provider: Pat Rahman, FLEX) iron polysaccharides (NIFEREX 150) capsule 150 mg [...] ONCE, 1 dose, On Wed12/25/18 at 1130 1153 ($ Given - Provider: Deann Hayes RN) labetalol (NORMODYNE; TRANDATE) tablet 300 mg (CANCELED) 300 mg, Oral, EVERY 12 HOURS, First dose (after last modification) on Wed12/24/18 at 2100, Until Discontinued 0808 ($ Given - Provider: Deann Hayes RN) labetalol (NORMODYNE; TRANDATE) tablet 400 mg 400 mg, Oral, EVERY 12 HOURS, First dose (after last modification) on Wed12/25/18 at 2000, Until Discontinued 2000 ($ Given - Provider: Viri Macario, RN) 0846 ($ Given - Provider: Georgette Bernabe, FLEX) labetalol (NORMODYNE; TRANDATE) tablet 600 mg (CANCELED) 600 mg, Oral, EVERY 12 HOURS, First dose (after last modification) on Wed12/26/18 at 2100, Until Discontinued 2254 ($ Given - Provider: Jonathan Merchant RN) labetalol (NORMODYNE; TRANDATE) tablet 800 mg 800 mg, Oral, EVERY 12 HOURS, First dose (after last modification) on Wed12/27/18 at 0900, Until Discontinued 0836 ($ Given - Provider: Pat Rahman, FLEX) vitamin with iron tablet 1 tablet 1 [...] 12/22/18 at 1215, Until Wed12/27/18 at 1532 lanolin ointment Topical, PRN, Sore or cracked nipples., Starting on Wed12/21/18 at 2107, Until Wed12/27/18 at 1532, Apply purified Lanolin to sore or cracked nipples, if needed. May keep at bedside., 0049 ($ Given - Provider: Kathryn Manning RN) magnesium hydroxide (MILK OF MAGNESIA) suspension 30 [...] 1532, 0439 ($ Given - Provider: Kathryn Manning, RN)1524 ($ Given - Provider: Deann Hayes, RN)1952 ($ Given - Provider: Viri Macario, FLEX) 0041 ($ Given - Provider: Viri Macario, FLEX) oxyCODONE (immediate release) (ROXICODONE) tablet 5 mg 5 mg, Oral, EVERY 4 HOURS PRN, Moderate Pain, Starting on Wed12/21/18 at 2107, Until Wed12/27/18 at 1532, 0819 ($ Given - Provider: Deann Hayes, FLEX) 0841 ($ Given - Provider: Georgette Bernabe RN)1620 ($ Given - Provider: Irene Dumont, FLEX) 0347 ($ Given - Provider: Jonathan Merchant RN)0750 ($ Given - Provider: Pat Rahman, FLEX) oxyCODONE-acetaminophen (PERCOCET) 10-325 MG tablet 1 tablet [...] Constipation, Starting on Wed12/21/18 at 2107, Until Tu12/27/18 at 1532, Use MOM first. If MOM ineffective then use bisacodyl. If bisacodyl ineffective use Fleets enema., documented in this encounter Care Teams Slasher Tender Relationship Specialty Start Date End Date Gala Singh MD [address] [place] [id number] PCP - General 08/02/18 documented as of this encounter
--- OUTSIDE RECORDS SUMMARY | 2024-04-27 18:02 | XMS_ITS | Encounter Summary ---
Author Organization [facility] Address [employer] [place] [address] Care Team Providers Care Spot Man Name Role Phone Gala Singh MD Primary Care Provider [phone] Reason for Visit * Reason Comments Routine Visit * Evaluate & Treat (Routine) - Closed Specialty Diagnoses / Procedures Referred By Contac t Referred To Contact Maternal Medicine Diagnoses Supervision of other high risk pregnancies, unspecified trimester (HCC) Procedures CO FULL ROUT OBSTE CARE,VAGINAL DELIV Silvestre Silverman MD [address] [facility] [address] [place] [place] [phone] [facility] [address] [place] [address] Referral ID Status Reason Start Date Expiration Date Visits Re quested Visits Authorized [id number] Closed 08/01/2018 01/28/2019 18 18 Encounter Details Date Type Department Care Team (Latest Contact Info) Description 08/30/2018 8:44 AM CDT - 08/30/2018 11:59 PM CDT Hospital Encounter [facility]/ EVALUATION UNIT [address] [place] [address] Lynda Valerio MD [address] [facility] [address] [place] [address] Discharge Disposition: Home or Self Care Social History Tobacco Use Types Packs/Day Years Used Date Smoking Tobacco: Every Day Cigarettes Smokeless Tobacco: Never Alcohol Use Standard Drinks/Week Comments No 0 (1 standard drink = 0.6 oz pur e alcohol) Comments Yes Sex and Gender Information Value Date Recorded Sex Assigned at Not on file Gender Identity Not on file Sexual Orientation Not on file documented as of this encounter Last Filed Vital Signs Vital Sign Reading Time Taken Comments Blood Pressure 120/79 08/30/2018 10:20 AM CDT Pulse 75 08/30/2018 10:20 AM CDT Temperature - - Respiratory Rate - - Oxygen Saturation - - Inhaled Oxygen Concentration - - Weight 86.2 kg (190 lb) 08/30/2018 10:20 AM CDT Height - - Body Mass Index 37.11 08/01/2018 12:35 PM CDT documented in this encounter Functional Status Functional Status Response Date of Assess ment Is person deaf or have serious hearing difficult y? No 11/08/2013 Is person blind or have serious difficulty seein g? No 11/08/2013 Does person have serious dif ficulty walking/climbing stairs? No 11/08/2013 Does person have difficulty dressing/bathing? No 11/08/2013 Does person have difficulty doing errands alone? No 11/08/2013 Cognitive Status Response Date of Assessm ent Does person have difficulty concentrating/remembering/making decisions? No 11/08/2013 documented as of this encounter Medications at Time of Discharge Medication Sig Dispensed Refills Start Date End Date Vit-Fe Fumarate-FA ( VITAMIN) 27-0.8 MG tablet Take 1 tablet by mouth once daily aspirin (ASPIRIN) 81 MG tablet Take 2 tablets by mouth once daily 120 tablet 2 08/01/2018 09/26/2018 documented as of this encounter Progress Notes * Mine Lopez, MACHINE [employer]ER - 08/30/2018 10:59 AM CDT [facility] Return Visit 08/30/2018 S: Cait Mathews is a 22 year old @ 19w6d Today she notes no complaints. Denies CTX, LOF, or VB. She hasn't started feeling the baby move yet. Denies headaches, visual changes, or RUQ pain. Pt agreeable to pelvic rest due to previa. Denies GI/. Denies feeling dizzy or lightheaded. Her is c/b: Patient Active Problem List Diagnosis Date Noted ??? Obesity (BMI 30-39.9) Priority: Not Prioritized ??? Placenta previa without hemorrhage, antepartum Priority: Not Prioritized ??? Screening, , for malformation by ultrasound Priority: Not Prioritized ??? Cellulitis 08/01/2018 Priority: [...] Priority: Not Prioritized ??? Obesity affecting in second trimester Priority: Not Prioritized ??? IUGR (intrauterine growth restriction) 11/15/2013 ??? Tobacco abuse 11/09/2013 ??? Preeclampsia 11/09/2013 O: Vitals: 08/30/18 1020 BP: 120/79 Pulse: 75 Weight: 190 lb (86.2 kg) Abdomen: Gravid, NT FHT: Per FETU U/S LE: Equal in size and width bilaterally. No edema. A/P: Cait Mathews is a 22 year old at 19w6d c/b: 1. Supervision of 2. Supervision of 1. KATLIN from Dr. Guadarrama for 2. Datinw6d US 3. PNL: B+/I/-/-, NR 4. Hgb Elec: Normal 5. Hgb: 13.4 6. UDS/UA: Negative 7. CF: Negative 8. Pap: Done 1 year ago and denies any abnormal paps, records requested 9. Gc/Chl: Negative 10. NIPT LR female 11. Declined flu shot 12. Anatomy ultrasound today Incomplete: 70%tile, 346gm, AC 76%tile- f/u in 4 weeks 13. GCT,CBC,RPR,HIV at 28 weeks 14. TDAP at 28 weeks 15. GBS at 36 weeks 3. Previa 1. Noted today on ultrasound. Discussed indication for pelvic rest with patient. Reviewed bleeding precautions. Verbalized understanding. 2. F/U ultrasound in 4 weeks 4. History of 1. G1 in 2013 at 34 wks for Pre-E and breech presentation, documented LTCS 2. Desires TOLAC- TOLAC counseling by Dr. Duran. 5. History of pre-eclampsia 1. In G1, s/p delivery at 34 weeks 2. BP normal today, 120/79. Baseline CMP normal on 05/31 3. 24 hr [address] completed [address] Dr. Guadarrama - 142 mg on 06/02 4. Taking ASA daily 6. Tobacco use 1. Smoking 1-2 cigarettes per day, cut down from 10-15 per day 2. Encourages cessation 7. Asthma 1. Hasn't used Inhaler in years Reviewed SAB/bleeding precautions. RTC 4 weeks. ADI Jarquin 08/30/2018 11:08 AM documented in this encounter Plan of Treatment Not on file documented as of this encounter Visit Diagnoses Diagnosis Placenta previa in second trimester (HCC) Tobacco smoking complicating , second trimester (HCC) 19 weeks gestation of (HCC) state, incidental documented in this encounter Care Teams Spot Man Relationship Specialty Start Date End Date Gala Singh MD [address] [id number] PCP - General 08/02/18 documented as of this encounter
--- OUTSIDE RECORDS SUMMARY | 2024-04-27 18:02 | XMS_ITS | Encounter Summary ---
Author Organization [facility] Address [facility] [place] [address] Care Team Providers Care Dye Machine Operator Name Role Phone Gala Singh MD Primary Care Provider [phone] Reason for Visit * Reason Comments Routine Visit * Evaluate & Treat (Routine) - Closed Specialty Diagnoses / Procedures Referred By Contac t Referred To Contact Maternal Medicine Diagnoses Supervision of other high risk pregnancies, unspecified trimester (HCC) Procedures [place] FULL ROUT OBSTE CARE,VAGINAL DELSilvestre Waldron MD [address] [place] [address] [facility] [address] [place] [address] Referral ID Status Reason Start Date Expiration Date Visits Re quested Visits Authorized [id number] Closed 08/01/2018 01/28/2019 18 18 Encounter Details Date Type Department Care Team (Latest Contact Info) Description 11/24/2018 8:53 AM CDT - 11/24/2018 11:59 PM CDT Hospital Encounter [facility] MATERNAL/ EVALUATION UNIT [address] [place] [address] Candace Peacock MD [address] [place] [address] Discharge Disposition: Home or Self Care Social [...] Sign Reading Time Taken Comments Blood Pressure 137/79 11/24/2018 9:50 AM CDT Pulse 90 11/24/2018 9:50 AM CDT Temperature - - Respiratory Rate - - Oxygen Saturation - - Inhaled Oxygen Concentration - - Weight 91.6 kg (202 lb) 11/24/2018 9:50 AM CDT Height 152.4 cm (5') 11/24/2018 9:50 AM CDT Body Mass Index 39.45 11/24/2018 9:50 AM CDT documented in this encounter Functional Status Functional Status Response Date of Assess ment Is person deaf or have serious hearing difficult y? No 11/03/2018 Is person blind or have serious difficulty seein g? No 11/03/2018 Does person have serious dif ficulty walking/climbing stairs? No 11/03/2018 Does person have difficulty dressing/bathing? No 11/03/2018 Does person have difficulty doing errands alone? No 11/03/2018 Cognitive Status Response Date of Assessm ent Does person have difficulty concentrating/remembering/making decisions? No 11/03/2018 documented as of this encounter Medications at [...] for 5 days 20 capsule 12/26/2018 12/31/2018 cephalexin (KEFLEX) 500 MG capsule Take 1 capsule by mouth every 6 hours for 7 days 28 capsule 12/25/2018 12/26/2018 labetalol (NORMODYNE; TRANDATE) 200 MG tablet Take 2 tablets by mouth every 12 hours for 60 days 120 tablet 1 12/26/2018 02/24/2019 documented as of this encounter Progress Notes * Edilma Nguyen MD - 11/24/2018 9:00 AM CDT [facility] Return Visit 11/24/2018 S: Cait Mathews is a 23 year old @ 32w1d Today she notes rare dark red spotting. Notices it just with wiping after standing all day. Rare contractions. Denies blurry vision, headache, RUQ pain. Denies LOF, +FM Her is c/b: Patient Active Problem List Diagnosis Date Noted ??? Vaginal bleeding during , antepartum 11/03/2018 [...] Previous delivery, antepartum Priority: Not Prioritized ??? Tobacco abuse 11/09/2013 ??? Supervision of high risk , antepartum 11/09/2013 O: Vitals: 11/24/18 0950 BP: 137/79 Pulse: 90 Weight: 202 lb (91.6 kg) Height: 5' (1.524 m) FHT per NST Recent Labs Component Name 10/27/18 1003 PROTEINUA Negative GLUCOSEUA Negative KETONEUA Trace* A/P: Cait Mathews is a 23 year old at 32w1d Supervision of KATLIN from Dr. Guadarrama for TOLAC, now with placenta previa Datinw6d US PNL: B+/I/-/-, NR Hgb Elec: Normal Hgb: 11.8 UDS/UA: Negative CF: Negative Pap: Done 1 year ago and denies any abnormal paps Gc/Chl: Negative NIPT LR female Declined flu shot GCT 147, GTT wnl TDap complete GBS at 36 weeks Desires BTL- medicaid/ethics forms submitted, result not returned yet?? CC- carpel tunnel, recommended splint at night ? Complete Posterior Previa Reports scant dark red spotting S/p admission for VB and ANCS 09/25-, readmitted 11/03-11/05 after passing a softball sized blood clot. Continue pelvic rest, reviewed bleeding precautions. Understands to return if any change at all. US 10/17: EFW 1024g (52%ile), AC 76%ile, posterior previa still noted US today to assess, final read pending Work letter given stating patient should NOT work, patient works at [employer] on her feet all day Plan for weekly NST/BPP C/S at 36wks scheduled for 12/21 at 1030am, can cancel if placenta moves ? H/o LTCSx1 G1 in 2013 at 34 wks for Pre-E and breech presentation, documented LTCS Transferred to [facility] d/t patient desiring TOLAC, however, contraindicated at this time d/t previa ? Abnormal GCT- 147 GTT 10/06/18 WNL (97/167/121/138) ? History of pre-eclampsia BP 137/79 In G1, s/p delivery at 34 weeks for PreE and breech presentation 24 hr urine completed with Dr. Chiara - 142 mg on 06/02 s/p ASA ? Tobacco use Smoking 4??cigarettes per day, cut down from 10-15 per day Encouraged cessation ? Childhood Asthma Hasn't used Inhaler in years ?? RTC in 2 weeks for MD visit, weekly BPP/NST Discussed bleeding and WEU precautions D/W Dr Ayush Nguyen MD 11/24/2018 9:58 AM Associated attestation - Candace Peacock MD - 11/24/2018 4:50 PM CDT MFM Attending Note I saw the patient and reviewed history and physical exam with Dr. Nguyen at the time of the visit. Patient presents with a diagnosis of: Patient Active Problem List Diagnosis Date Noted ??? Vaginal bleeding during , antepartum 11/03/2018 [...] of high risk , antepartum 11/09/2013 Patient is 32w1d. Notes brown spotting when she wipes if stands a long time. Still works at [employer]. Offered a return to Dr. Gonzalez if she were to require a for delivery. She states that she prefers to deliver with us regardless of route of delivery. Exam and assessment show: BP 137/79 Pulse 90 Ht 5' (1.524 m) Wt 202 lb (91.6 kg) BMI 39.45 kg/m2 trace ketones on urine dip I agree with diagnosis as documented in the resident/fellow note. I have added the following diagnoses: None Documented plan of care is appropriate and I agree with the following revisions: she was advised tostop working. Candace Peacock MD documented in this encounter Plan of Treatment Not on file documented as of this encounter Visit Diagnoses Not on filedocumented in this encounter Care Teams Dye Machine Operator Relationship Specialty Start Date End Date Gala Singh MD [address] [id number] PCP - General 08/02/18 documented as of this encounter
--- OUTSIDE RECORDS SUMMARY | 2024-04-27 18:02 | XMS_ITS | Encounter Summary ---
Author Organization [facility] Address [address] [address] Care Team Providers Care Zipper Measurer Name Role Phone Gala Singh MD Primary Care Provider [phone] Reason for Visit * Reason Comments Lab Collection Draw Routine Visit * Evaluate & Treat (Routine) - Closed Specialty Diagnoses / Procedures Referred By Contac t Referred To Contact Maternal Medicine Diagnoses Supervision of other high risk pregnancies, unspecified trimester (HCC) Procedures [place] FULL ROUT OBSTE CARE,VAGINAL DELIV Silvestre Silverman MD [address] [place] [address] [facility] [address] [place] [address] Referral ID Status Reason Start Date Expiration Date Visits Re quested Visits Authorized [id number] Closed 08/01/2018 01/28/2019 18 18 Encounter Details Date Type Department Care Team (Latest Contact Info) Description 10/06/2018 7:52 AM CDT - 10/06/2018 11:59 PM CDT Hospital Encounter [facility] MATERNAL/ EVALUATION UNIT [address] [place], [place] [id number] Silvestre Silverman MD [address] [place], [place] [id number] Discharge Disposition: Home or Self Care Social [...] Sign Reading Time Taken Comments Blood Pressure 115/70 10/06/2018 8:30 AM CDT Pulse 84 10/06/2018 8:30 AM CDT Temperature - - Respiratory Rate - - Oxygen Saturation - - Inhaled Oxygen Concentration - - Weight 90.3 kg (199 lb) 10/06/2018 8:00 AM CDT Height - - Body Mass Index 38.86 09/25/2018 11:29 AM CDT documented in this encounter Functional Status Functional Status Response Date of Assess ment Is person deaf or have serious hearing difficult y? No 09/26/2018 Is person blind or have serious difficulty seein g? No 09/26/2018 Does person have serious dif ficulty walking/climbing stairs? No 09/26/2018 Does person have difficulty dressing/bathing? No 09/26/2018 Does person have difficulty doing errands alone? No 09/26/2018 Cognitive Status Response Date of Assessm ent Does person have difficulty concentrating/remembering/making decisions? No 09/26/2018 documented as of this encounter Medications at Time of Discharge Medication Sig Dispensed Refills Start Date End Date Vit-Fe Fumarate-FA ( VITAMIN) 27-0.8 MG tablet Take 1 tablet by mouth once daily documented as of this encounter Progress Notes * Reema Moreno MD - 10/06/2018 8:24 AM CDT R1 Clinic High-Risk Return OB 10/06/18 SUBJECTIVE Cait Mathews is a 22 year old @ 25w1d Today she notes no problems. Occasional brown discharge. No CTX, no LOF or VB; +FM OBJECTIVE Vitals: 10/06/18 0800 Weight: 199 lb (90.3 kg) Physical exam: GEN: alert, cooperative, well-appearing PULM: nonlabored breathing ABD: normal to inspection, gravid, nonTTP MSK: no calf tenderness, no edema FHT 150bpm, FH 24cm Labs Recent Labs Component Name 10/06/18 0804 PROTEINUA trace GLUCOSEUA neg KETONEUA neg ASSESSMENT / PLAN: Cait Mathews is a 22 year old at 25w1d Supervision of - KATLIN from Dr. Guadarrama for TOLAC - Datinw6d US - PNL: B+/I/-/-, NR - Hgb Elec: Normal - Hgb: 11.8 - UDS/UA: Negative - CF: Negative - Pap: Done 1 year ago and denies any abnormal paps, records requested - Gc/Chl: Negative - NIPT LR female - Declined flu shot - Anatomy complete - GCT 147 (see below) - CBC, HIV, syphilis, Tdap at 28 weeks - GBS at 36 weeks - Desires BTL- will need signed consent and ethics consult Complete Posterior Previa - Admitted for vaginal bleeding and ANCS 09/25- - Growth 09/26: EFW 621g/39%, AC 60% - Continue Pelvic rest, Reviewed bleeding precautions. Understands to return if any change at all. - Formal ultrasound in hospital 09/26. EFW: 621g 39%, AC 60% - Serial US to assess placental position - Continue off work until 28wks, can reassess at that time. H/o LTCSx1 - G1 in 2013 at 34 wks for Pre-E and breech presentation, documented LTCS - Transferred to [facility] d/t patient desiring TOLAC, however, contraindicated at this time d/t complete Previa Abnormal GCT- 147- GTT in progress today History of pre-eclampsia - In G1, s/p delivery at 34 weeks - 24 hr urine completed with Dr. Guadarrama - 142 mg on 06/02 - BP today: 115/70, tr pro - ASA daily- dc'd d/t bleeding Tobacco use - Smoking 4-5 cigarettes per day, cut down from 10-15 per day - Not interested in cessation at this time. Asthma-Hasn't used Inhaler in years RTC in 4 week(s) for return OB appointment. Precautions given: PTL and pre-eclampsia. Patient discussed with Dr. Randall. Reema Moreno MD 10/06/2018 8:24 AM Associated attestation - Silvestre Silverman MD - 10/06/2018 11:52 AM CDT MFM I have reviewed Cait Mathews with Dr. Moreno. I agree with the above assessment, findings,and plans. I have the following additions: No additions Silvestre Silverman MD documented in this encounter Plan of Treatment Not on file documented as of this encounter Procedures Procedure Name Priority Date/Time Associated Diagnosis Comments GTT 3 HR (100G) GESTATIONAL DIAGNOSTIC Routine 10/06/2018 11:01 AM CDT , unspecified gestational age (HCC) GLUCOSE PROTEIN KETONE URINE - POINT OF CAR Routine 10/06/2018 8:04 AM CDT , unspecified gestational age (HCC) documented in this encounter Results * (ABNORMAL) GTT 3 HR (100G) GESTATIONAL DIAGNOSTIC (10/06/2018 11:01 AM CDT) Glucose Dose Gestational 100 gm 10/06/2018 12:22 PM CDT [facility] Gestational GTT Fasting 97(H) 50-<95 mg/dL 10/06/2018 12:22 PM CDT [facility] Gestational GTT 1 HR 167 50-<180 mg/dL 10/06/2018 12:22 PM CDT [facility] Gestational GTT 2 HR 121 50-<155 mg/dL 10/06/2018 12:22 PM CDT [facility] Gestational GTT 3 HR 138 50-<140 mg/dL 10/06/2018 12:22 PM CDT [facility] Blood BLOOD SPECIMEN / Unknown Venipuncture / Unknown 10/06/2018 11:01 AM CDT 10/06/2018 8:09 AM CDT Reema Moreno MD LAB - CHEMISTRY O RDERABLES [facility] [address] [place] [address] * GLUCOSE PROTEIN KETONE URINE - POINT OF CARE (10/06/2018 8:04 AM CDT) Glucose UA neg Negative [facility] Protein UA trace Negative [facility] Ketone UA neg Negative [facility] QC Verified Yes Yes [facility] POC T TESTING Urine URINE / Unknown 10/06/2018 8 :04 AM CDT Reema Moreno MD LAB - POINT OF CA RE ORDERABLES [facility] [address] [phone] documented in this encounter Visit Diagnoses Diagnosis , unspecified gestational age (HCC)- Primary documented in this encounter Care Teams Zipper Measurer Relationship Specialty Start Date End Date Gala Singh MD [address] [id number] PCP - General 08/02/18 documented as of this encounter
--- OUTSIDE RECORDS SUMMARY | 2024-04-27 18:02 | XMS_ITS | Encounter Summary ---
Author Organization [facility] Address [address] [place] [address] Care Team Providers Care Electronic Scale Assembler And Tester Name Role Phone Gala Singh MD Primary Care Provider [phone] Reason for Visit * Evaluate & Treat (Routine) - Closed Specialty Diagnoses / Procedures Referred By Contac t Referred To Contact Maternal Medicine Diagnoses Supervision of other high risk pregnancies, unspecified trimester (HCC) Procedures UT FULL ROUT OBSTE CARE,VAGINAL DELIV Silvestre Silverman MD [address] [place] [address] [facility] [address] [place] [address] Referral ID Status Reason Start Date Expiration Date Visits Re quested Visits Authorized [id number] Closed 08/01/2018 01/28/2019 18 18 Encounter Details Date Type Department Care Team (Latest Contact Info) Description 10/27/2018 8:57 AM CDT - 10/27/2018 11:59 PM CDT Hospital Encounter [facility]/ EVALUATION UNIT [address] [place], [place] [id number] Silvestre Silverman MD [address] [place] [address] Discharge Disposition: Home or Self Care Social [...] Sign Reading Time Taken Comments Blood Pressure 129/62 10/27/2018 9:03 AM CDT Pulse 92 10/27/2018 9:03 AM CDT Temperature - - Respiratory Rate - - Oxygen Saturation - - Inhaled Oxygen Concentration - - Weight 89.8 kg (198 lb) 10/27/2018 9:03 AM CDT Height - - Body Mass Index 38.67 09/25/2018 11:29 AM CDT documented in this [...] as of this encounter Progress Notes * Georgette Felton MD - 10/27/2018 9:35 AM CDT [facility] Return Visit 10/27/2018 S: Cait Mathews is a 22 year old @ 28w1d Today she notes she is doing well. Denies CTX, LOF, VB; +FM. Denies any edema, changes in vision, RUQ pain. Has been reporting a dark brown discharge with urination, but no bleeding. Wondering if she can return to work on light duty. Her is c/b: Patient Active Problem List Diagnosis Date Noted ??? Abnormal O'Cartwright glucose challenge test, antepartum [...] high risk , antepartum 11/09/2013 O: Vitals: 10/27/18902 BP: 129/62 Pulse: 92 Weight: 198 lb (89.8 kg) FH 29cm FHT 140bpm Recent Labs Component Name 10/27/18902 PROTEINUA neg GLUCOSEUA neg KETONEUA neg A/P: Cait Mathews is a 22 year old at 28w1d Supervision of - KATLIN from Dr. Guadarrama for TOLAC - Datinw6d US - PNL: B+/I/-/-, NR - Hgb Elec: Normal - Hgb: 11.8 - UDS/UA: Negative - CF: Negative - Pap: Done 1 year ago and denies any abnormal paps, records requested - Gc/Chl: Negative - NIPT LR female - Declined flu shot - GCT 147 (see below) - 28wk labs, TDaP today - GBS at 36 weeks - Desires BTL- medicaid/ethics forms submitted today ?? Complete Posterior Previa - Admitted for vaginal bleeding and ANCS 09/25- - Continue Pelvic rest, Reviewed bleeding precautions. Understands to return if any change at all. - Last formal sono 10/17: EFW 1024g (52%ile), AC 76%ile, posterior previa still noted - Plan: light work duty, serial sono to assess placentation (32 wks) ?? H/o LTCSx1 - G1 in 2013 at 34 wks for Pre-E and breech presentation, documented LTCS - Transferred to [facility] d/t patient desiring TOLAC, however, contraindicated at this time d/t complete Previa ?? Abnormal GCT- 147- GTT 10/06/18 WNL (97/167/121/138) ?? History of pre-eclampsia - In G1, s/p delivery at 34 weeks - 24 hr urine completed with Dr. Guadarrama - 142 mg on 06/02 - BP today: 129/62 - s/p ASA ?? Tobacco use - Smoking 4-5??cigarettes per day, cut down from 10-15 per day - Not interested in cessation at this time. ?? Asthma-Hasn't used Inhaler in years Work note written for light duty ?? RTC in 2 weeks for MD visit Precautions given: PTL and pre-eclampsia. Pelvic rest instructions given D/W Dr Herrera Felton MD 10/27/2018 9:36 AM Associated attestation - Silvestre Silverman MD - 10/27/2018 10:12 AM CDT MFM I have reviewed Cait Mathews with Dr. Felton. I agree with the above assessment, findings, andplans. I have the following additions: No additions Silvestre Silverman MD documented in this encounter Plan of Treatment Not on file documented as of this encounter Procedures Procedure Name Priority Date/Time Associated Diagnosis Comments SYPHILIS ANTIBODY CASCADING REFLEX AM Draw 10/27/2018 10:03 AM CDT Supervision of high risk , antepartum (HCC) URINE MICROSCOPIC ONLY REFLEX TO CULTURE Routine 10/27/2018 10:03 AM CDT Supervision of high risk , antepartum (HCC) HIV-1 HIV-2 ANTIBODY + HIV P24 AG PANEL Routine 10/27/2018 10:03 AM CDT Supervision of high risk , antepartum (HCC) URINALYSIS REFLEX MICROSCOPIC REFLEX CULTURE Routine 10/27/2018 10:03 AM CDT Supervision of high risk , antepartum (HCC) CULTURE URINE Routine 10/27/2018 10:03 AM CDT Supervision of high risk , antepartum (HCC) CBC W AUTO DIFFERENTIAL Routine 10/27/2018 10:03 AM CDT Supervision of high risk , antepartum (HCC) GLUCOSE PROTEIN KETONE URINE - POINT OF CAR Routine 10/27/2018 9:03 AM CDT Supervision of high risk , antepartum (HCC) documented in this encounter Results * CULTURE URINE (10/27/2018 10:03 AM CDT) Culture Urine <10,000 CFU/mL urogenital luis daniel ALESSANDRO 10/28/2018 4:33 PM CDT [facility] Urine URINE SPECIMEN OBTAINED BY CLEAN CATCH PROCEDURE / Unknown Collection / Unknown 10/27/2018 10:03 AM CDT 10/27/2018 11:19 AM CDT Georgette Felton MD LAB - MICROBIOLOGY O RDERABLES [facility] [address] [place] [address], [facility] [phone] * (ABNORMAL) URINE MICROSCOPIC ONLY REFLEX TO CULTURE (10/27/2018 10:03 AM CDT) Reflex Status Culture to follow 10/27/2018 11:49 AM CDT [facility] RBC UA 3-5 None Seen, 0-2, 3-5 # /hpf 10/27/2018 11:49 AM CDT [facility] WBC UA 6-10(A) None Seen, 0-5 # /hpf 10/27/2018 11:49 AM CDT [facility] Bacteria UA Trace(A) None Seen 10/27/2018 11:49 AM CDT [facility] Squamous Epithelial Cells 6-10(A) None Seen, 0-2, 3-5 /hpf 10/27/2018 11:49 AM CDT [facility] Mucus UA 4+ /LPF 10/27/2018 11:49 AM CDT [facility] Calcium Oxalate Crystals Occasional( A) None seen /HPF 10/27/2018 11:49 AM CDT [facility] Urine URINE SPECIMEN OBTAINED BY CLEAN CATCH PROCEDURE / Unknown Collection / Unknown 10/27/2018 10:03 AM CDT 10/27/2018 11:19 AM CDT Narrative [facility] - 10/27/2018 11:49 AM CDT Georgette Felton MD LAB - URINALYSIS ORD ERABLES Performing Organization Address [facility] Co de Phone Number [facility] [address] [place], [place] [id number] * SYPHILIS ANTIBODY CASCADING REFLEX (10/27/2018 10:03 [...] - SEROLOGY ORDER MITUL Performing Organization Address City/[facility] Co de Phone Number [facility] [address] [place] [address] * HIV-1 HIV-2 ANTIBODY + HIV P24 [...] - CHEMISTRY SU MCKENZIE Performing Organization Address [facility]/ZIP Co de Phone Number [facility] [address] [place] [address] * (ABNORMAL) URINALYSIS REFLEX MICROSCOPIC REFLEX CULTURE (10/27/2018 10:03 AM CDT) Color UA Yellow Straw, Yellow 10/27/2018 11:49 AM CDT [facility] Clarity UA Cloudy(A) Clear 10/27/2018 11:49 AM CDT [facility] Glucose UA Negative Negative 10/27/2018 11:49 AM CDT [facility] Bilirubin UA Negative Negative 10/27/2018 11:49 AM CDT [facility] Ketone UA Trace(A) Negative 10/27/2018 11:49 AM CDT [facility] Specific [place] UA 1.025 1.005 - 1.030 10/27/2018 11:49 AM CDT [facility] Blood UA 3+(A) Negative 10/27/2018 11:49 AM CDT [facility] pH UA 5.0 5.0 - 8.0 pH 10/27/2018 11:49 AM CDT [facility] Protein UA Negative Negative 10/27/2018 11:49 AM CDT [facility] Urobilinogen UA Negative Negative mg/dL 10/27/2018 11:49 AM CDT [facility] Nitrite UA Negative Negative 10/27/2018 11:49 AM CDT [facility] Leukocyte UA Trace(A) Negative 10/27/2018 11:49 AM CDT [facility] Urine Microscopy Urine microscopy to follow 10/27/2018 11:49 AM T [facility] Reflex Status Culture to follow 10/27/2018 11:49 AM T [facility] Urine URINE SPECIMEN OBTAINED BY CLEAN CATCH PROCEDURE / Unknown Collection / Unknown 10/27/2018 10:03 AM CDT 10/27/2018 11:19 AM CDT Narrative [facility] - 10/27/2018 11:49 AM CDT Georgette Felton MD LAB - URINALYSIS ORD HARMEET [facility] [address] [place] [address] * (ABNORMAL) CBC W AUTO DIFFERENTIAL (10/27/2018 10:03 AM CDT) [facility] Signature WBC 12.9(H) 4.4 - 10.7 x10E9/L 10/27/2018 11:28 AM CDT [facility] WBC Corrected x10E9/L 10/27/2018 11:28 AM CDT [facility] RBC 4.03 3.80 - 5.20 x10E12/L 10/27/2018 11:28 AM CDT [facility] Hemoglobin 12.0 12.0 - 15.6 gm/dL 10/27/2018 11:28 AM CDT [facility] Hematocrit 37.1 35.9 - 45.5 % 10/27/2018 11:28 AM CDT [facility] MCV 92.1 80.7 - 98.3 fl 10/27/2018 11:28 AM CDT [facility] MCH 29.8 26.7 - 34.0 pg 10/27/2018 11:28 AM CDT [facility] MCHC 32.3 30.8 - 35.9 gm/dL 10/27/2018 11:28 AM CDT [facility] Platelet Count 222 153 - 416 x10E9/L 10/27/2018 11:28 AM CDT [facility] RDW-CV 12.9 12.1 - 14.9 % 10/27/2018 11:28 AM CDT [facility] MPV 11.2 9.4 - 12.9 fl 10/27/2018 11:28 AM CDT [facility] Neutrophils % 79.4(H) 44.0 - 73.0 % 10/27/2018 11:28 AM CDT [facility] Lymphocytes % 12.0(L) 20.0 - 43.0 % 10/27/2018 11:28 AM CDT [facility] Monocytes % 4.3(L) 5.0 - 13.0 % 10/27/2018 11:28 AM CDT [facility] Eosinophils % 0.6 0.0 - 6.0 % 10/27/2018 11:28 AM CDT [facility] Basophils % 0.5 0.0 - 2.0 % 10/27/2018 11:28 AM CDT [facility] Immature Granulocytes 3.2(H) 0 - 1 % 10/27/2018 11:28 AM CDT [facility] Neutrophil Absolute 10.21(H) 2.01 - 7.14 x10E9/L 10/27/2018 11:28 AM CDT [facility] Lymphocytes Absolute 1.54 1.07 - 3.94 x10E9/L 10/27/2018 11:28 AM CDT [facility] Monocytes Absolute 0.55 0.26 - 1.07 x10E9/L 10/27/2018 11:28 AM CDT [facility] Eosinophils Absolute 0.08 0 - 0.47 x10E9/L 10/27/2018 11:28 AM CDT [facility] Basophils Absolute 0.06 0 - 0.08 x10E9/L 10/27/2018 11:28 AM CDT [facility] Immature Granulocytes Absolute 0.41(H) 0.00 - 0.06 x10E9/L 10/27/2018 11:28 AM CDT [facility] nRBC Auto 0 /100 WBC 10/27/2018 11:28 AM CDT [facility] Blood BLOOD SPECIMEN / Unknown Venipuncture / Unknown 10/27/2018 10:03 AM CDT 10/27/2018 11:20 AM CDT Georgette Felton MD LAB - HEMATOLOGY ORD ERABLES [facility] [address] [place] [address] * GLUCOSE PROTEIN KETONE URINE - POINT OF CARE (10/27/2018 9:03 AM CDT) Glucose UA neg Negative [facility] Protein UA neg Negative [facility] Ketone UA neg Negative [facility] QC Verified Yes Yes [facility] P[facility] T [facility] Urine URINE / Unknown 10/27/2018 9 :03 AM CDT Perla Vásquez MD LAB - POINT OF CARE ORDERABLES Performing Organization Address City/[facility]/ZIP Co de Phone Number [facility] [address] [place] [address] documented in this encounter Visit Diagnoses Diagnosis Supervision of high risk , antepartum (HCC)- Primary Abnormal O'Cartwright glucose challenge test, antepartum (HCC) Abnormal maternal glucose tolerance, antepartum documented in this encounter Care Teams Electronic Scale Assembler And Tester Relationship Specialty Start Date End Date Gala Singh MD [address] [id number] PCP - General 08/02/18 documented as of this encounter
--- OUTSIDE RECORDS SUMMARY | 2024-04-27 18:02 | XMS_ITS | Encounter Summary ---
Author Organization [facility] Address [address] [place], [place] [address] [address] Care Team Providers Care Flour Mixer Helper Name Role Phone Gala Singh MD Primary Care Provider [phone] Reason for Visit * Reason Comments Routine Visit Encounter Details Date Type Department Care Team (Latest Contact Info) Description 09/27/2018 9:00 AM CDT - 09/27/2018 11:59 PM CDT Hospital Encounter [facility]/ EVALUATION UNIT [address] [facility] [address] [place] [address] Mine Lopez, COMPTOMETER OPERATOR-LEAF BLENDER [address] [place] [address] Discharge Disposition: Home or Self Care Social [...] Sign Reading Time Taken Comments Blood Pressure 122/77 09/27/2018 9:45 AM CDT Pulse 86 09/27/2018 9:45 AM CDT Temperature - - Respiratory Rate - - Oxygen Saturation - - Inhaled Oxygen Concentration - - Weight 87.5 kg (193 lb) 09/27/2018 9:40 AM CDT Height - - Body Mass Index 37.69 09/25/2018 11:29 AM CDT documented in this [...] as of this encounter Progress Notes * Vannesa Bowles, YOON-LEAF BLENDER - 09/27/2018 9:43 AM CDT [facility] Low Risk [facility] Return Visit S: Cait Mathews is a 22 year old @ 23w6d here today for follow up visit. She was just admitted to hospital 09/25- for vaginal bleeding and received a course of ANCS. Denies CTX, LOF, +FM. States she has continued to have brown vaginal discharge with wiping since being discharged from the hospital. Denies any change in bleeding. Has only noticed bleeding in her panties when she goes for long walks. Denies headaches, visual changes, or RUQ pain. She is wondering if she can have a note to be off work because of the bleeding. 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 No edema. A/P: Cait Mathews is a 22 year old at 23w6d c/b: 1. Supervision of 1. KATLIN from Dr. Guadarrama for TOLAC 2. Datinw6d US 3. PNL: B+/I/-/-, NR 4. Hgb Elec: Normal 5. Hgb: 11.8 6. UDS/UA: Negative 7. CF: Negative 8. Pap: Done 1 year ago and denies any abnormal paps, records requested 9. Gc/Chl: Negative 10. NIPT LR female 11. Declined flu shot 12. Anatomy incomplete- rpt US 09/26, formal rpt not yet in epic 13. GCT,CBC TPA,HIV at 28 weeks 14. TDAP at 28 weeks 15. GBS at 36 weeks 16. Desires BTL- will need signed consent and ethics consult 2. Complete Posterior Previa 1. Admitted for vaginal bleeding and ANCS 09/25- 2. Continues to have brown spotting with wiping since admitted to hospital, no change in bleeding 3. Continue Pelvic rest, Reviewed bleeding precautions. Understands to return if any change at all. 4. Formal ultrasound in hospital 09/26. EFW: 621g 39%, AC 60% 5. Note given to be off work until next visit 3. Abnormal GCT- 147 1. Needs 3 hour GTT 2. Understands she needs to be fasting 4. History of 1. G1 in 2013 at 34 wks for Pre-E and breech presentation, documented LTCS 2. Transferred to [facility] d/t patient desiring TOLAC, however, contraindicated at this time d/t complete Previa 5. History of pre-eclampsia 1. In G1, s/p delivery at 34 weeks 2. BP normal today, 122/77. Baseline CMP normal on 05/31 3. 24 hr urine completed with Dr. Guadarrama - 142 mg on 06/02 4. ASA daily- dc'd d/t bleeding 6. Tobacco use 1. Smoking 4-5 cigarettes per day, cut down from 10-15 per day 2. Not interested in cessation at this time. 7. Asthma 1. Hasn't used Inhaler in years DW Dr Hilton Reviewed PTL/preeclampsia and bleeding precautions. RTC 1 week in [facility] with 3 hour GTT Vannesa Bowles APRN-LEAF BLENDER 09/27/18 11:47 AM documented in this encounter Plan of Treatment Not on file documented as of this encounter Procedures Procedure Name Priority Date/Time Associated Diagnosis Comments GLUCOSE PROTEIN KETONE URINE - POINT OF CAR Routine 09/27/2018 9:51 AM CDT 23 weeks gestation of (HCC) documented in this encounter Results * GLUCOSE PROTEIN KETONE URINE - POINT OF CARE (09/27/2018 9:51 AM CDT) Glucose UA neg Negative [facility] Protein UA neg Negative [facility] Ketone UA neg Negative [facility] QC Verified Yes Yes [facility] P[facility] T TEST[facility] Urine URINE / Unknown 09/27/2018 9 :51 AM CDT Mine JOSHI LAB - POINT OF CA RE ORDERABLES [facility] [address] [phone] documented in this encounter Visit Diagnoses Diagnosis 23 weeks gestation of (HCC)- Primary state, incidental Placenta previa in second trimester (HCC) Smoking (tobacco) complicating , second trimester (HCC) documented in this encounter Care Teams Flour Mixer Helper Relationship Specialty Start Date End Date Gala Singh MD 2 [facility] [address] [place] [id number] PCP - General 08/02/18 documented as of this encounter
--- OUTSIDE RECORDS SUMMARY | 2024-04-27 18:02 | XMS_ITS | Encounter Summary ---
Author Organization [facility] Address [address] [place] [address] [place] [address] Care Team Providers Care Foot Drill Operator Name Role Phone Unavailable Primary Care Provider Unavailabl e Reason for Visit * Reason Comments Abscess tooth Encounter Details Date Type Department Care Team (Late st Contact Info) Description 01/14/2017 10:40 AM CDT Office Visit [facility] AT [address] [phone] Provider, Dahlia [facility] facial swelling (Primary Dx) Social History Tobacco Use Types Packs/Day Years Used Date Smoking Tobacco: Former Cigarettes Smokeless Tobacco: Never Alcohol Use Standard Drinks/Week Comments No 0 (1 standard drink = 0.6 oz pur e alcohol) Sex and Gender Information Value Date Recorded Sex Assigned at Not on file Gender Identity Not on file Sexual Orientation Not on file documented as of this encounter Last Filed Vital Signs Vital Sign Reading Time Taken Comments Blood Pressure 110/78 01/14/2017 10:42 AM CDT Pulse 77 01/14/2017 10:42 AM CDT Temperature 36.8 ??C (98.3 ??F) 01/14/2017 10:42 AM C DT Respiratory Rate - - Oxygen Saturation - - Inhaled Oxygen Concentration - - Weight 81.6 kg (180 lb) 01/14/2017 10:42 AM CDT Height 152.4 cm (5') 01/14/2017 10:42 AM CDT Body Mass Index 35.15 01/14/2017 10:42 AM CDT documented in this encounter Functional [...] No 11/08/2013 documented as of this encounter Patient Instructions * Patient Instructions* Malika Lara APRN-CNP - 01/14/2017 10:52 AM CDT Keep area clean, swish with warm salt water after eating. Chew on right side. Motrin for pain and swelling. If area become extremely painful, or edema extends into neck, go to the ER. Keep your appointment with dental on 01/23 as planned. documented in this encounter Progress Notes * Malika Lara APRN-CNP - 01/14/2017 10:47 AM CDT [facility] Chief Complaint Patient presents with ??? Abscess tooth SUBJECTIVE: HPI Comments: 21 yo female presents with left facial pain and swelling for past 2-3 days. Has appointment with dental for 01/23, but facial swelling worse. Taking ibuprofen for pain with some relief. Past Medical History: Diagnosis Date ??? Chlamydia contact, treated No current outpatient prescriptions on file prior to visit. No current facility-administered medications on file prior to visit. Past Surgical History: Procedure Laterality Date ??? Section N/A 11/17/2013 N/A; SECTION ??? Tonsillectomy Social History Social History ??? Marital status: Single Spouse name: N/A ??? Number of children: N/A ??? Years of education: N/A Occupational History ??? Not on file. Social History Main Topics ??? Smoking status: Former Smoker Packs/day: 0.25 ??? Smokeless tobacco: Never Used ??? Alcohol use No ??? Drug use: No ??? Sexual activity: Not on file Other Topics Concern ??? Not on file Social History Narrative No family history on file. No current outpatient prescriptions on file. No current facility-administered medications for this visit. No Known Allergies REVIEW OF SYSTEMS: Review of Systems Constitutional: Negative. HENT: Tooth pain and facial swelling left lower jaw Respiratory: Negative. Cardiovascular: Negative. OBJECTIVE: General appearance: alert, well appearing, and in no distress. BP 110/78 Pulse 77 Temp 98.3 ??F (Oral) Ht 1.524 m (5') Wt 81.6 kg (180 lb) BMI 35.15 kg/m2 Physical Exam Constitutional: She is oriented to person, place, and time. Noticeable facial edema left lower jaw. HENT: Back three lower teeth on left lower noted to have caries. Erythema and edema in gum noted surrounding back teeth extending into cheek. No active drainage. Neck: Normal range of motion. Neck supple. Cardiovascular: Normal rate and regular rhythm. Pulmonary/Chest: Effort normal and breath sounds normal. Neurological: She is alert and oriented to person, place, and time. Skin: Skin is warm and dry. ASSESSMENT: No results found for this visit on 01/14/17. No diagnosis found. PLAN: No orders of the defined types were placed in this encounter. documented in this encounter Plan of Treatment Not on file documented as of this encounter Visit Diagnoses Diagnosis Left facial swelling- Primary Swelling, mass, or lump in head and neck documented in this encounter
--- OUTSIDE RECORDS SUMMARY | 2024-04-27 18:02 | XMS_ITS | Encounter Summary ---
Author Organization [facility] Address [address] [place] [address] Care Team Providers Care Retail Shift Supervisor Name Role Phone Gala Singh MD Primary Care Provider [phone] Reason for Visit * Reason Comments Ultrasound Encounter Details Date Type Department Care Team (Late st Contact Info) Description 10/17/2018 8:50 AM CDT - 10/17/2018 11:59 PM CDT Hospital Encounter [facility] MATERNAL/ EVALUATION UNIT [address] [place] [address] Diomedes Parker MD [address] [place] [id number] Discharge Disposition: Home or Self Care Social [...] once daily documented as of this encounter Plan of Treatment Not on file documented as of this encounter Procedures Procedure Name Priority Date/Time Associated Diagnosis Comments SONOGRAM - COMPLETE Routine 10/17/2018 1 0:16 AM CDT documented in this encounter Results * SONOGRAM - COMPLETE (10/17/2018 10:16 AM CDT) Anatomical Region Laterality Modality Other 10/17/2018 10:1 6 AM CDT Narrative 10/17/2018 12:42 PM CDT ?[facility] ? - [place] [facility] ?PHONE: ??FAX: Pat. Name: ?CAIT MATHEWS Pat. No: ?[id number] Study Date: ?? 10/17/2018 ??10:16am , Age: ? 1995, 22 Pregnancies: ?? 2, Para 1 Height: ? 60 in Weight: ? 180 lb LMP: ?Unknown GA by Base: ?? 26w5d ?? ULISES: 01/18/2019 GA by US: ? 26w2d ?? ULISES: 01/21/2019 GA Selected: ??26w5d (From [facility]) ULISES: ?01/18/2019 Referring MD: MD Hunter, [facility] Computer Animator: ??Josey Arnett, KAT, RVT CPT4: ? 80606,62460 BMI: ?35.15 Room: ? 556 Hist/Ind: ? Vaginal bleeding ?Tobacco use ?Delivery at 34 wk (severe pre-eclampsia, malpresentation, IUGR) ?Obesity ?Placenta previa ?Completed anatomy survey MEASUREMENTS & AGE ? GROWTH EVALUATION Measurement ??GA ? Range ? Srce %for GA Ratios ----- ---- ------- BPD ??6.4 cm 25w5d (30e6y-65v4c) Hadl BPD 12% FL/BPD 0.76 (0.71 - 0.87) HC ??24.8 cm 27w0d (64t9t-17n3j) Hadl HC ??28% FL/AC ??0.20 (0.20 - 0.24) AC ??23.6 cm 27w6d (37c8a-55c6y) Hadl AC ??76% HC/AC ??1.05 (1.00 - 1.19) FL ?? 4.8 cm 26w1d (06s5y-88q4k) Hadl FL ??20% CI ? 0.71 (0.70 - 0.86) HL ?? 4.4 cm 26w1d (22a6d-44c7t) [place]rett HL ??40% GA for sonogram 26w2d (37b9a-81l8r) ?? Weight Estimate: based on (BPD,HC,AC,FL) Hadlock ?Weight: 1024 gm (875-1174gm) Hadl ? : 2lbs, 4oz ? Normal: 1021 gm (765- 1276gm) Hadl ? Wt% ? 52% for 26w5d Cervix: ??Length: 4.1 cm ??Approach: transvaginal ??Funneling: not present Heart Rate: 153 bpm Amniotic Fluid Index: 05.2cm (Deepest Pocket) EVAL, PLACENTA Presentation: cephalic Placenta: posterior Heart Rate: 153 bpm Gender: female Amniotic Fluid Volume: normal Anatomy!Normal!Abnormal!Suboptimal!Prev. Seen!Comments Cranium ?! ?! ?! ?! ? x ?! Mdl (CSP/Thal! ?! ?! ?! ? x ?! Ventricles ?? ! ?! ?! ?! ? x ?! Choroid Plexu! ?! ?! ?! ? x ?! Cerebellum ?? ! ?! ?! ?! ? x ?! Cisterna M. ??! ?! ?! ?! ? x ?! Nuchal Fold ??! ?! ?! ?! ? x ?! Profile ?! ?! ?! ?! ? x ?! Nasal Bone ?? ! ?! ?! ?! ? x ?! Lip ?! ?! ?! ?! ? x ?! Spine ?! ?! ?! ?! ? x ?! Lungs ?! ?! ?! ?! ? x ?! 4 Chamber Hea! ?! ?! ?! ? x ?! LVOT ? ! ?! ?! ?! ? x ?! RVOT ? ! ?! ?! ?! ? x ?! 3 Vessel View! ?! ?! ?! ? x ?! Cross-over ?? ! ?! ?! ?! ? x ?! Ductal Arch ??! ?! ?! ?! ? x ?! Aortic Arch ??! ?! ?! ?! ? x ?! Caval View ?? ! ?! ?! ?! ? x ?! Situs ?! ?! ?! ?! ? x ?! Diaphragm ?! ?! ?! ?! ? x ?! Stomach ?! ?? x ??! ?! ?! ? x ?! Bowel ?! ?! ?! ?! ? x ?! Kidneys ?! ?? x ??! ?! ?! ? x ?! Bladder ?! ?? x ??! ?! ?! ? x ?! 3 Vessel Cord! ?! ?! ?! ? x ?! Cord In! ?! ?! ?! ? x ?! Upper Extremi! ?! ?! ?! ? x ?! Hands ?! ?! ?! ?! ? x ?! Lower Extreme! ?! ?! ?! ? x ?! Feet ? ! ?! ?! ?! ? x ?! External Deena! ?! ?! ?! ? x ?! CLINICAL SUMMARY Study Number: 4 ?? A single fetus is identified in cephalic presentation. ??The measurements today are consistent with appropriate growth compared to previous examination growth. ??The ULISES selected is based on a prior ultrasound. ??The estimated weight percentile is 52%. ??The amniotic fluid volume is normal. ??The placenta is posterior. IMPRESSION: Single cephalic IUP at 26w5d. Reassuring TVU CL ?? normal amniotic fluid volume. Appropriate interval growth. Posterior placenta previa Placental Location: posterior ?? RECOMMEND: Follow up ultrasound at 32 weeks to reassess the placenta and growth. Pelvic rest in the interim Thank you for allowing us the opportunity to care for your patient. Cheryl Sumner MD <Electronic Signature> ??10/17/2018 12:42pm Diomedes Parker MD [facility] ORDERABLES documented in this encounter Visit Diagnoses Diagnosis Abnormal O'Cartwright glucose challenge test, antepartum (HCC) Abnormal maternal glucose tolerance, antepartum documented in this encounter Care Teams Retail Shift Supervisor Relationship Specialty Start Date End Date Gala Singh MD [address] [id number] PCP - General 08/02/18 documented as of this encounter
--- OUTSIDE RECORDS SUMMARY | 2024-04-27 18:02 | XMS_ITS | Encounter Summary ---
Author Organization [facility] Address [address] [place], [place] [address] [address] Care Team Providers Care Transit Coach Operator Name Role Phone Unavailable Primary Care Provider Unavailabl e Reason for Visit * Reason Comments Initial Visit * Evaluate & Treat (Routine) - Closed Specialty Diagnoses / Procedures Referred By Contac t Referred To Contact Maternal Medicine Diagnoses Supervision of other high risk pregnancies, unspecified trimester (HCC) Procedures RI FULL ROUT OBSTE CARE,VAGINAL DELSilvestre Waldron MD [address] [place] [address] [facility] Med [address] [place] [address] Referral ID Status Reason Start Date Expiration Date Visits Re quested Visits Authorized [id number] Closed 08/01/2018 01/28/2019 18 18 Encounter Details Date Type Department Care Team (Latest Contact Info) Description 08/01/2018 10:49 AM CDT - 08/01/2018 11:59 PM CDT Hospital Encounter [facility] MATERNAL/ EVALUATION UNIT [address] [place] [address] Lynda Valerio MD [address] [facility] [address] [place] [id number] Discharge Disposition: Home or Self Care Social [...] Sign Reading Time Taken Comments Blood Pressure 118/72 08/01/2018 12:35 PM CDT Pulse 66 08/01/2018 12:35 PM CDT Temperature - - Respiratory Rate - - Oxygen Saturation - - Inhaled Oxygen Concentration - - Weight 85.3 kg (188 lb) 08/01/2018 12:35 PM CDT Height 152.4 cm (5') 08/01/2018 12:35 PM CDT Body Mass Index 36.72 08/01/2018 12:35 PM CDT documented in this [...] as of this encounter Progress Notes * Arinae Marsh RN - 08/01/2018 1:46 PM CDT Blood drawn for send out NIPT lab testing. * Ariane Marsh RN - 08/01/2018 1:45 PM CDT Patient was given New OB Education packet, which includes: During : Care for yourself. Care for your baby Important Vaccines [address] is Important Resources for Mom's Woman and Infant Resource Guide Safe Connections Crisis helpline Dental Referral letter not given. Pt has seen her dentist this Centering brochure [place] [facility] Transportation Services Sheet [facility] Medical Referral not needed for [facility] offices documented in this encounter H&P Notes * Sara Duran MD - 08/01/2018 1:20 PM CDT [facility] Initial Visit 08/01/2018 CC: I'm here for my history of a HPI: 22 year old at 15w5d weeks gestation, dated by 8w6d US. Estimated Date of Delivery: 01/18/19. care previously with Dr. Guadarrama. Her is complicated by: Patient Active Problem List: Tobacco abuse Preeclampsia Breech presentation Supervision of high-risk IUGR (intrauterine growth restriction) Patient reports that she is doing well. Her only complaint is that she is having a small amount of difficulty sleeping. She denies cramping/contractions/VB/LOF. Obstetrical History: OB History Para Term AB Living 2 1 0 1 0 1 SAB TAB Ectopic Multiple Live Births 0 0 0 0 1 # Outcome Date GA Lbr Abdullahi/2nd Weight Sex Delivery Anes PTL Lv 2 Current 1 11/17/13 34w0d 1790 g (3 lb 15.1 oz) F CS-LTranv Spinal MARCUS Gynecologic History: Patient denies history of abnormal pap smears. Denies history of cervical procedures. Patient reports hx of CT at young age. Denies other STDs or HSV. Reports history of normal monthly menses. Medical History: Past Medical History: Diagnosis Date ??? Chlamydia contact, treated Surgeries: Past Surgical History: Procedure Laterality Date ??? Section N/A 11/17/2013 N/A; SECTION ??? Tonsillectomy Curent Medications: No current outpatient prescriptions on file prior to encounter. No current facility-administered medications on file prior to encounter. Allergies: No Known Allergies Social History: Social History Social History ??? Marital status: Single Spouse name: N/A ??? Number of children: N/A ??? Years of education: N/A Occupational History ??? Not on file. Social History Main Topics ??? Smoking status: Current Every Day Smoker Packs/day: 0.25 ??? Smokeless tobacco: Never Used ??? Alcohol use No ??? Drug use: No ??? Sexual activity: Not on file Comment: Denies chance of Other Topics Concern ??? Not on file Social History Narrative Family History: No family history on file. Objective: BP 118/72 Pulse 66 Ht 5' (1.524 m) Wt 188 lb (85.3 kg) BMI 36.72 kg/m2 heart tones: 151 bpm Physical Exam: General: alert, cooperative, no distress Lungs: clear to auscultation bilaterally Heart: regular rate and rhythm Abdomen: Soft, gravid. NT, ND. Extremities: normal, non-tender bilaterally Pelvic: Deferred Lab Review: Recent Labs Component Name 08/01/18 1311 PROTEINUA trace GLUCOSEUA neg KETONEUA neg Assessment/Plan: 22 year old at 15w5d with 1. Supervision of 1. KATLIN from Dr. Guadarrama 2. Datinw6d US 3. PNL: B+/I/-/-, NR 4. Hgb Elec: Normal 5. Hgb: 13.4 6. UDS/UA: Negative 7. CF: Negative 8. Pap: Done 1 year ago and denies any abnormal paps, records requested 9. Gc/Chl: Negative 10. NIPT today 11. Declined flu shot History of x1 1. G1 in 2013 at 34 wks for Pre-E and breech presentation, documented LTCS 2. Desires TOLAC 3. I discussed the risk of TOLAC with the patient. The risk of uterine rupture was quoted to the patient as 0.5-0.7%. She was informed that if uterine rupture occurs there is a risk maternal hemorrhage or and or brain damage (cerebral palsy). She is also aware of the possibility of an emergent section. History of Pre-Eclampsia 1. In G1, s/p delivery at 34 weeks 2. BP normal today, 118/72. Baseline CMP normal on 05/31 3. 24 hr [address] completed with Dr. Guadarrama - 142 mg on 06/02 4. Rx for ASA given today Tobacco use 1. Smoking 1-2 cigarettes per day, cut down from 10-15 per day 2. Encouraged cessation Asthma 1. Has not used inhaler in years instructions were discussed including weight gain, exercise, diet (including intake of fish products with regards to Hg content), sexual activity, and common OTC medication use. Calcium intake of 1200 mg per day and vitamins with folate were recommended. Alcohol and smoking were discussed and advised to avoid during . The course of care was outlined. SAB precautions discussed. RTC in 4 weeks. Seen and discussed with Dr. Valerio. Sara Duran MD 08/01/2018 1:20 PM Associated attestation - Lynda Valerio MD - 08/01/2018 4:04 PM CDT I have reviewed this patient???s history, physical exam, and assessment with the resident at the time of the visit. I agree with their documented plan. Transferred for desired tolac mfm calc 65% Hx early pre-ecl, start asa documented in this encounter Plan of Treatment Not on file documented as of this encounter Procedures Procedure Name Priority Date/Time Associated Diagnosis Comments GLUCOSE PROTEIN KETONE URINE - POINT OF CAR Routine 08/01/2018 1:11 PM CDT , unspecified gestational age (HCC) ANEUPLOIDY SCREENING Routine 08/01/2018 documented in this encounter Results * GLUCOSE PROTEIN KETONE URINE - POINT OF CARE (08/01/2018 1:11 PM CDT) Glucose UA neg Negative [facility] POCT TESTING Protein UA trace Negative [facility] POCT TEST[facility] Ketone UA neg Negative [facility] POCT TESTING QC Verified Yes Yes [facility] POC T TESTING Urine URINE / Unknown 08/01/2018 1 :11 PM CDT Essence Faria MD LAB - POINT OF CAR E ORDERABLES [facility] POCT TEST[facility] [address] [phone] * PANORAMA TEST (08/01/2018) Trisomy 21 Low Risk Trisomy 18 Low Risk Trisomy 13 Low Risk Monosomy X Low Risk Triploidy/Gayle shing Twin NIPT Low Risk Blood BLOOD SPECIMEN / Unknown 08/01/2018 Annette Cantrell, PhD - 08/06/2018 Predicted Sex: female Fraction: 13.5% [employer] Screen Hard copy results are scanned under Media. Lynda Valerio MD LAB - CHEMISTRY SU MCKENZIE documented in this encounter Visit Diagnoses Diagnosis , unspecified gestational age (HCC)- Primary documented in this encounter
--- OUTSIDE RECORDS SUMMARY | 2024-04-27 18:02 | XMS_ITS | Encounter Summary ---
Author Organization [facility] Address [facility] [place] [address] Care Team Providers Care Business Technology Teacher Name Role Phone Gala Singh MD Primary Care Provider [phone] Reason for Visit * Reason Comments Vaginal Bleeding * Auth/Cert Specialty Diagnoses / Procedures Referred By Contac t Referred To Contact Referral ID Status Reason Start Date Expiration Date Visits Re quested Visits Authorized [id number] 1 1 Encounter Details Date Type Department Care Team (Latest Contact Info) Description 09/25/2018 11:25 AM CDT - 09/26/2018 6:29 PM CDT Hospital Encounter [facility] 5E ANTEPARTUM/MOTHER BABY [address] [place] [address] Jaciel So MD [address] [id number] Discharge Disposition: Home or Self Care Social [...] Sign Reading Time Taken Comments Blood Pressure 119/68 09/26/2018 3:52 PM CDT Pulse 88 09/26/2018 3:52 PM CDT Temperature 36.9 ??C (98.4 ??F) 09/26/2018 3:52 PM CD T Respiratory Rate 18 09/26/2018 3:52 PM CDT Oxygen Saturation 100% 09/26/2018 8:15 AM CDT Inhaled Oxygen Concentration - - Weight 88.5 kg (195 lb) 09/25/2018 11:29 AM CDT Height 152.4 cm (5') 09/25/2018 11:29 AM CDT Body Mass Index 38.08 09/25/2018 11:29 AM CDT documented in this [...] as of this encounter Progress Notes * Jolanta Richards RN - 09/26/2018 6:29 PM CDT Discharge Note: Patient given discharge instructions, states has no questions, states positive for movement, denies contractions, vaginal bleeding, vital signs are stable and is afebrile, W/C to car at 1830, no signs of distress noted. * Jolanta Richards RN - 09/26/2018 6:29 PM CDT Problem: Potential for Fluid Volume Deficit Related to Vascular Loss Goal: Patient will maintain a positive hemodynamic status Outcome: Goal Met Date Met: 09/26/18 Problem: Potential for Increased Anxiety Goal: Patient/family will demonstrate reduced anxiety Outcome: Goal Met Date Met: 09/26/18 Problem: Pain Related to Uterine Contractions Alteration in comfort. Goal: Decreased Uterine Activity Outcome: Goal Met Date Met: 09/26/18 Problem: Anticipatory Greiving and Anxiety Related to Threatened Loss Goal: Decreased Anxiety R/T Fear of Unknown Outcome Outcome: Goal Met Date Met: 09/26/18 Goal: Patient/Family Express Realistic Expectations Outcome: Goal Met Date Met: 09/26/18 * Jolanta Richards RN - 09/26/2018 5:34 PM CDT Shift summary: Patient is resting in bed, states positive for movement, denies contractions, states only discharge is scant brown noted on tissue after wipes, states is not wearing a peripad, vital signs are stable and is afebrile, encouraged to let nurse know of any needs or changes. * Jolanta Richards RN - 09/26/2018 3:50 PM CDT 09/26/18 1549 Clinician Communication/Critical Test Notification Reason: OB - Monitor Strip Review Name of Clinician Notified: dr. flores Role: OB Resident Notification Method: Called/Phoned Action Orders Received Comments: reviewed strip and stated OK to come off EFM * Jolanta Richards RN - 09/26/2018 3:17 PM CDT Problem: Potential for Fluid Volume Deficit Related to Vascular Loss Goal: Patient will maintain a positive hemodynamic status Outcome: Ongoing Monitor Jagdeep for vaginal bleeding, and instruct jagdeep to inform nurse of any bleeding, contractions, back ache, change in present status. * Lianne Baker - 09/26/2018 11:51 AM CDT Ultrasound completed- 09/26/2018 Position- vtx KOREY- DVP 4.35 cm EFW- 621 grams CL- 4.35 cm (posterior placenta previa) Heart rate- 153 bpm Comments- Ultrasound Completed by Lianne Baker RDMS * Jolanta Richards RN - 09/26/2018 9:18 AM CDT 09/26/18 0905 Clinician Communication/Critical Test Notification Reason: OB - Monitor Strip Review Name of Clinician Notified: dr. flores Role: OB Resident Notification Method: Called/Phoned Action Orders Received Comments: reviewed strip and stated may come off EFM * Jolanta Rcihards RN - 09/26/2018 8:45 AM CDT 09/26/18 0845 Clinician Communication/Critical Test Notification Reason: OB - Monitor Strip Review Name of Clinician Notified: dr. flores Role: OB Resident Notification Method: Called/Phoned Action Orders Received Comments: reviewed strip due to variable and stated to keep on for 30 minutes after variable. * Lianne Flores MD - 09/26/2018 7:45 AM CDT R1 Antepartum Progress Note Date: 09/26/2018 Hospital Day: 1 Subjective: Jagdeep Mathews is a 22 year old at 23w5d weeks gestation. There were no acute overnight events. She reports a small amount of dark red with wiping overnight.. She denies loss of fluid, andcontractions. She reports normal movement. Objective: Patient Vitals for the past 24 hrs: Temp Pulse Resp BP SpO2 09/26/18 0007 98 ??F (36.7 ??C) 73 18 99/48 98 % 09/25/18 2001 97.6 ??F (36.4 ??C) 87 18 122/66 99 % 09/25/18 1715 98.3 ??F (36.8 ??C) 85 20 121/62 99 % 09/25/18 1340 98.5 ??F (36.9 ??C) 76 18 126/76 100 % 09/25/18 1310 - - - 125/66 - 09/25/18 1240 - - - 125/65 - 09/25/18 1210 - - - 130/72 - 09/25/18 1139 - - 17 137/67 - Intake/Output Summary (Last 24 hours) at 09/26/18 0745 Last data filed at 09/25/18 1641 Gross per 24 hour Intake 240 ml Output 0 ml Net 240 ml Physical Exam: General: alert, cooperative, no distress Lungs: clear to auscultation bilaterally Heart: regular rate and rhythm Abdomen: gravid, nontender, no palpable contractions Extremities: normal, non-tender bilaterally Labs: Recent Labs Component Name 09/25/18 1320 11/18/13 0539 11/17/13 0546 WBC 11.8* 15.7* 13.4* HGB 11.6* 12.7 13.2 HCT 36.1 38.2 39.5 PLTCOUNT 224 230 263 Recent Labs Component Name 11/15/13 0806 11/12/13 [...] 5.3* 5.1* 5.5* EGFR >60 >60 >60 NST/Wixom: See separate procedure note MEDICATIONS FOR CURRENT ENCOUNTER: ?? SCHEDULED MEDICATIONS: ?? 0.9% NaCl injection 10 mL, Intracatheter, q8h ?? aspirin (ASPIRIN) chew tablet 162 mg, Oral, QDAY ?? betamethasone acet & sod phos (CELESTONE) injection 12 mg, Intramuscular, q24h ?? docusate sodium (COLACE) capsule 100 mg, Oral, BID ?? vitamin with iron tablet 1 tablet, Oral, QDAY ?? [COMPLETED] acetaminophen (TYLENOL) tablet 1,000 mg, Oral, Once ?? CONTINUOUS MEDICATIONS: ?? PRN MEDICATIONS: ?? Or ?? Or ?? calcium carbonate (TUMS) chew tablet 2 [...] 4X/day - PC & NIGHTLY PRN Assessment/Plan: 22 year old at 23w5d, with 1. Complete Placenta Previa 1. Admitted after 1st episode of bleeding (blood soaking underwear but no gushing) 2. Overnight - reports some dark red with wiping 3. Blood type - B+ 4. Hgb 11.6 on admission 5. Plan: obs, ANCS x 2, formal ultrasound pending, NST TID, NICU consult pending 2. H/o CS 1. G1 in 2013 for pre-eclampsia and breech presentation 2. Not candidate for TOLAC at this time given complete previa 3. History of pre-eclampsia 1. G1, s/p delivery at 34 weeks 2. BPs 90-130's/40-70's 3. 24 hour urine 142mg (06/02) 4. Cont ASA 162 qd 4. Tobacco use 1. Cigarettes 1-2/day 2. Cont to encourage cessation 5. Asthma 1. Asymptomatic, has not needed albuterol recently 6. Supervision of 1. Follows with Dr. Guadarrama > KATLIN to [place] 2. Datinw US 3. PNL: B+/I/-/-, NR 4. GBS not yet done Lianne Flores MD 09/26/2018 7:45 AM * Essence Ladnry - 09/26/2018 7:14 AM CDT MS4 Antepartum Progress Note Date: 09/26/2018 Hospital Day: 1 Subjective: Jagdeep Mathews is a 22 year old at 23w5d weeks gestation. There were no acute overnight events. She reports minimal spotting overnight - old, dark blood when she wipes, but denies active bleeding, loss of fluid and contractions. She reports normal movement. Objective: Patient Vitals for the past 24 hrs: Temp Pulse Resp BP SpO2 09/26/18 0007 98 ??F (36.7 ??C) 73 18 99/48 98 % 09/25/18 2001 97.6 ??F (36.4 ??C) 87 18 122/66 99 % 09/25/18 1715 98.3 ??F (36.8 ??C) 85 20 121/62 99 % 09/25/18 1340 98.5 ??F (36.9 ??C) 76 18 126/76 100 % 09/25/18 1310 - - - 125/66 - 09/25/18 1240 - - - 125/65 - 09/25/18 1210 - - - 130/72 - 09/25/18 1139 - - 17 137/67 - Intake/Output Summary (Last 24 hours) at 09/26/18 0714 Last data filed at 09/25/18 1641 Gross per 24 hour Intake 240 ml Output 0 ml Net 240 ml Physical Exam: General: alert, cooperative, no distress Lungs: clear to auscultation bilaterally Heart: regular rate and rhythm Abdomen: gravid, nontender, no palpable contractions Extremities: normal, non-tender bilaterally Labs: Recent Labs Component Name 09/25/18 1320 11/18/13 0539 11/17/13 0546 WBC 11.8* 15.7* 13.4* HGB 11.6* 12.7 13.2 HCT 36.1 38.2 39.5 PLTCOUNT 224 230 263 Recent Labs Component Name 11/15/13 0806 11/12/13 [...] 5.3* 5.1* 5.5* EGFR >60 >60 >60 NST/Wixom: See separate resident procedure note MEDICATIONS FOR CURRENT ENCOUNTER: ?? SCHEDULED MEDICATIONS: ?? 0.9% NaCl injection 10 mL, Intracatheter, q8h ?? aspirin (ASPIRIN) chew tablet 162 mg, Oral, QDAY ?? betamethasone acet & sod phos (CELESTONE) injection 12 mg, Intramuscular, q24h ?? docusate sodium (COLACE) capsule 100 mg, Oral, BID ?? vitamin with iron tablet 1 tablet, Oral, QDAY ?? [COMPLETED] acetaminophen (TYLENOL) tablet 1,000 mg, Oral, Once ?? CONTINUOUS MEDICATIONS: ?? PRN MEDICATIONS: ?? Or ?? Or ?? calcium carbonate (TUMS) chew tablet 2 [...] 4X/day - PC & NIGHTLY PRN Assessment/Plan: 22 year old at 23w5d, with 1. Placenta Previa - complete - now with first episode of vaginal bleeding - Blood type B+, has been typed and crossed for 2 units - H/H: 11.6/36.1 - ANCS 09/25-09/26 - Formal US today 2. Prior - G1 in 2013 for breech presentation and PreE - now with complete previa - plan for repeat C/S 3. Hx of PreE - in G1, delivery at 34 weeks for PreE - BP within normal limits since admission 4. Elevated GCT - GCT 147 - plan for GTT in 1 week - accuchecks while inpatient 5. Asthma - asymptomatic, does not use inhalers 6. Tobacco use - smokes 1-2 cigarettes/day, down from 10-15/day 7. Supervision of - Dating via 8w US - B+/I/-/-, HIV NR - Hgb Electrophoresis: normal - CF negative - Pap normal, no hx of abnormal paps - NIPT LR female Essence Landry 09/26/2018 7:14 AM, MS4 Associated attestation - Lianne Flores MD - 10/02/2018 3:44 PM CDT This note is for the educational benefit of the medical student. Please see resident note for treatment details. Lianne Flores MD 10/02/2018 3:44 PM * Jahaira Doyle RN - 09/26/2018 6:43 AM CDT Shift summary: Pt resting in bed, reports positive movement and scant dark red/brown vaginal discharge overnight. Denies contractions, cramping, headache, backache, and LOF. FBS 108. 2 units PRBC's on hold. Pt leaves the floor on occasion to smoke, AMA signed in chart. Call light within reachand pt encouraged to call nurse with any needs or change in status. * Jahaira Doyle RN - 09/26/2018 5:01 AM CDT Problem: Potential for Fluid Volume Deficit Related to Vascular Loss Goal: Patient will maintain a positive hemodynamic status Outcome: Ongoing Jagdeep Mathews reports scant dark red/brown vag bleeding overnight, denies any bright red vag bleeding. Problem: Pain Related to Uterine Contractions Alteration in comfort. Goal: Decreased Uterine Activity Outcome: Ongoing Jagdeep Mathews denies feeling any contractions or cramping overnight * Nita Mosqueda RN - 09/25/2018 5:49 PM CDT 09/25/18 5404 Clinician Communication/Critical Test Notification Reason: Condition Update Name of Clinician Notified: Reymundo Role: OB Resident Notification Method: Called/Phoned Action Orders Received Comments: GCT 147. Start blood sugar testing. * Charlene Storm RN - 09/25/2018 1:49 PM CDT Arrived from [facility] via wheelchair at 1340 & received into room 556. Alert & Oriented X 3. Call light & phone within reach. At this time Jagdeep denies any vaginal bleeding/contractions/pelvic pressure/pain or discomfort. Reports positive movement. documented in this encounter H&P Notes * Ulysses Sheldon MD - 09/25/2018 2:16 PM CDT R2 Obstetric H&P CC: I had bleeding and I have a placenta previa. HPI: 22 year old at 23w4d weeks gestation. Dating by: Ultrasound at 8 weeks 6 days Estimated Date of Delivery: 01/18/19 care: is KATLIN from Dr. Guadarrama to [facility], now with KATLIN Patient's is complicated by: Patient Active Problem [...] ??? Tobacco abuse 11/09/2013 ??? Preeclampsia 11/09/2013 Currently, patient presents with complaint of vaginal bleeding in setting of known complete placenta previa. She states that when she awoke this AM she had dark blood in underwear and passed small clot when using the restroom. States she continues to have dark brown blood on toilet tissue when wiping. Denies N/V, constipation or straining for BM. States compliant with pelvic rest, no intercourse for at least 4 weeks. Does not report bright red bleeding. Denies abdominal/pelvic cramping, no contractions. Reports good movement. Review of Symptoms: No BARRERA/vision change/RUQ pain No SOB/CP/CT No nausea/ vomiting/ fevers/ chills/ diarrhea No dysuria/ hematuria/ urinary urgency/ irritation Obstetrical History: OB History Para Term AB Living 2 1 0 1 0 1 SAB TAB Ectopic Multiple Live Births 0 0 0 0 1 # Outcome Date GA Lbr Abdullahi/2nd Weight Sex Delivery Anes PTL Lv 2 Current 1 11/17/13 34w0d 1790 g (3 lb 15.1 oz) F CS-LTranv Spinal MARCUS Gynecologic History: Abnormal pap smears: Denies abnormal Cervical procedures: Denies STDs: Remote hx of chlamydia. Denies history of gonorrhea, trichomonas, herpes, HIV, syphilis Medical History: Past Medical History: Diagnosis Date ??? Chlamydia contact, treated ??? History of asthma Asthma ??? History of sexually transmitted disease ??? Placenta previa ??? Preeclampsia 2013 ??? Tobacco use She denies history of hypertension, diabetes, or bleeding disorders. Surgeries: Past Surgical History: Procedure Laterality Date ??? Section N/A 11/17/2013 N/A; SECTION ??? Tonsillectomy Curent Medications: Prior to Admission medications Medication Sig Start Date End Date Taking? Authorizing Provider aspirin (ASPIRIN) 81 MG tablet Take 2 tablets by mouth once daily 08/01/18 Yes Sara Duran MD Vit-Fe Fumarate-FA ( VITAMIN) 27-0.8 MG tablet Take 1 tablet by mouth once daily Yes Provider, MD Amada Allergies: No Known Allergies Social History: Social History Smoking status: Current Every Day Smoker Packs/day: 0.25 Years: 0.00 Smokeless status: Never Used Alcohol use: No Drug use: No Sexual activity: Not on file Comment: Denies chance of Family History: No family history on file. No history of infants born with defects No history of family members with bleeding disorders No history of breast, ovarian, or uterine cancer Objective: Vitals: 09/25/18 1129 09/25/18 1139 09/25/18 1340 BP: 137/67 126/76 Pulse: 76 Resp: 17 18 Temp: 98.5 ??F (36.9 ??C) SpO2: 100% Weight: 195 lb (88.5 kg) Height: 5' (1.524 m) EFM: baseline 145-150bpm, moderate variability, positive 10x10 accels, no decels Wixom: none Physical Exam: General: alert, cooperative, no distress Lungs: clear to auscultation bilaterally Heart: regular rate and rhythm Abdomen: Gravid. soft without mass, non-tender, with normal bowel sounds Female Genitalia: external genitalia and intoitus normal; vagina and cervix normal by visualization Extremities: normal, non-tender bilaterally. Edema absent Sterile speculum exam: Cervix closed per visualization Dark brown blood visible at cervical os, no active bleeding noted Bedside ultrasound: Presentation: vertex Placenta: complete previa Amniotic fluid index 18cm Current Lab Rewiew: Hospital Encounter on 09/25/18 CBC W AUTO DIFFERENTIAL Result Value Ref Range WBC 11.8 (H) 4.4 - 10.7 x10E9/L WBC Corrected x10E9/L RBC 3.93 3.80 - 5.20 x10E12/L Hemoglobin 11.6 (L) 12.0 - 15.6 gm/dL Hematocrit 36.1 35.9 - 45.5 % MCV 91.9 80.7 - 98.3 fl MCH 29.5 26.7 - 34.0 pg MCHC 32.1 30.8 - 35.9 gm/dL Platelet Count 224 153 - 416 x10E9/L RDW-CV 12.3 12.1 - 14.9 % MPV 11.0 9.4 - 12.9 fl Neutrophils % 78.2 (H) 44.0 - 73.0 % Lymphocytes % 13.5 (L) 20.0 - 43.0 % Monocytes % 5.8 5.0 - 13.0 % Eosinophils % 0.8 0.0 - 6.0 % Basophils % 0.3 0.0 - 2.0 % Immature Granulocytes 1.4 (H) 0 - 1 % Neutrophil Absolute 9.24 (H) 2.01 - 7.14 x10E9/L Lymphocytes Absolute 1.59 1.07 - 3.94 x10E9/L Monocytes Absolute 0.69 0.26 - 1.07 x10E9/L Eosinophils Absolute 0.09 0 - 0.47 x10E9/L Basophils Absolute 0.03 0 - 0.08 x10E9/L Immature Granulocytes Absolute 0.17 (H) 0.00 - 0.06 x10E9/L nRBC Auto 0 /100 WBC labs reviewed Blood type: B+ Ab screen:Negative Rubella: immune Hep B surface antigen:Negative RPR: Negative HIV:Negative GCT: not done GBS: Not Tested Assessment/Plan: 22 year old @ 23w4d 1. Placenta Previa - Complete 1. Now with vaginal bleeding - first episode 2. SSE: dark brown blood visible at os, no active bleeding, cervix closed per vis 3. Blood type B+ 4. H/H 11.6/36.1 5. Plan: 1. Admit to 5E for observation 2. EFM/TOCO TID and PRN 3. GCT prior to ANCS 4. Betamethasone 12mg IM Q24H x2 doses 5. Formal ultrasound in AM 2. History of 1. G1 in 2013 for pre-eclampsia and breech presentation 2. Not candidate for TOLAC at this time due to complete previa 3. History of pre-eclampsia 1. In G1, s/p delivery at 34 weeks 2. BP 125-137/65-76?? 3. Baseline CMP normal on 05/31 4. 24 hr [address] completed [address] Dr. Guadarrama - 142 mg on 06/02 5. Taking ASA daily 4. Tobacco use 1. Smoking 1-2 cigarettes per day, cut down from 10-15 per day 2. Encourages cessation 5. Asthma 1. Asymptomatic 2. Does not use rescue inhaler 6. Dispo: 5E for observation and ANCS, formal US in AM Discussed with Dr. Sheldon. Luciana Yañez, 09/25/2018 2:17 PM R4 Addendum I have discussed this patient with Dr. Yañez and seen the patient independently. Ms. Mathews is a 22 y.o. at 23w4d who presented for vaginal bleeding in the setting of known placenta previa. This is her first bleed this . She reports dark red blood in her underwear and continued bleeding with small clots when she wiped at home. Bleeding has slowed since arrival to hospital and now only notes small amount when she wipes. Denies ctx/LOF. Reports active FM. History significant for preeclampsia with severe features in G1, with 34wk delivery via CS for breech presentation. H/o tobacco use and asthma also. Patient admitted for ANCS 09/25-, TID monitoring, and observation. Plan for formal US tomorrow to assess for placental location and abnormal placentation, and growth. GCT performed prior to ANCS administration, and resulted 147. Plan for accuchecks. Discussed with Dr. So. Ulysses Sheldon MD 09/25/2018 5:38 PM Associated attestation - Sari Wilson MD - 09/26/2018 10:03 PM CDT MFM Attending History and Physical Addendum Date: 09/26/2018 I have seen and examined the patient with the resident/fellow and agree with their documentation. Vaginal bleeding, now dark red (first bleed). Pos FM. No LOF. Wants to be discharged today. Subjective: Jagdeep Mathews is a 22 year old at 23w5d weeks gestation. Medications: MAR has been reviewed Physical Exam: Temp (24hrs) Max:98.5 ??F (36.9 ??C) BP 127/67 Pulse 96 Temp 98.1 ??F (36.7 ??C) Resp 18 Ht 5' (1.524 m) Wt 195 lb (88.5 kg) SpO2 100% BMI 38.08 kg/m2 Pleasant female, no acute distress General: skin turgor normal no rashes nor lesions Lungs: unlabored respirations no wheeze nor cough Abdomen: soft, nontender, gravid Extremities: nontender. Labs Recent Labs Component Name 09/25/18 1320 11/18/13 0539 11/17/13 0546 WBC 11.8* 15.7* 13.4* HGB 11.6* 12.7 13.2 HCT 36.1 38.2 39.5 PLTCOUNT 224 230 263 Recent Labs Component Name 11/15/13 0806 SODIUM 140 POTASSIUM 4.2 CHLORIDE 108* CO2 22 BUN 10 CREATININE 0.36* GLUCOSE 78 CALCIUM 8.7 ALBUMIN 1.8* ALKPHOS 192* ALT 23 AST 17 TBIL 0.1* TPROT 5.3* EGFR >60 Assessment/Plan: Jagdeep Mathews is a 22 year old at 23w5d weeks gestation Patient Active Problem List: Tobacco abuse Preeclampsia IUGR (intrauterine growth restriction) Hx of preeclampsia, prior , currently Previous delivery, antepartum condition or complication Previous delivery, antepartum Obesity affecting in second trimester Cellulitis Child attention deficit disorder Depressive disorder 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 Steroids 09/26-09/27. Formal ultrasound today unremarkable. Risk of accreta reviewed with the patient. Stop ASA. GCT 147. Will need GTT. D/c home in stable condition. Sari Wilson MD Maternal Medicine 09/26/2018 9:56 AM documented in this encounter Plan of Treatment Not on file documented as of this encounter Procedures Procedure Name Priority Date/Time Associated Diagnosis Comments IMAGING/RADIOLOGY/XRA Y RESULTS ORDER 09/28/2018 11:34 PM CDT GLUCOSE - POINT OF CARE Routine 09/26/2018 1:30 PM CDT GLUCOSE - POINT OF CARE Routine 09/26/2018 8:56 AM CDT SONOGRAM - COMPLETE Routine 09/26/2018 8 :53 AM CDT GLUCOSE - POINT OF CARE Routine 09/26/2018 6:17 AM CDT PREPARE RBC LEUKOREDUCED UNIT Routine 09/25/2018 8:45 PM CDT GLUCOSE - POINT OF CARE Routine 09/25/2018 8:09 PM CDT GLUCOSE CHALLENGE Routine 09/25/2018 3:5 1 PM CDT URINALYSIS - POCT (IP) NOTIFICATION STAT 09/25/2018 3:34 PM CDT Placenta previa without hemorrhage, antepartum (HCC) TYPE + SCREEN PANEL STAT 09/25/2018 1 :20 PM CDT Placenta previa without hemorrhage, antepartum (HCC) Vaginal bleeding in , second trimester (HCC) CBC W AUTO DIFFERENTIAL STAT 09/25/2018 1:20 PM CDT Placenta previa without hemorrhage, antepartum (HCC) Vaginal bleeding in , second trimester (HCC) documented in this encounter Results * IMAGING/RADIOLOGY/XRAY RESULTS ORDER (09/28/2018 11:34 PM CDT) Anatomical Region Laterality Modality Other Narrative 09/28/2018 11:34 PM CDT Ordered by an unspecified provider. Scanned Document IMAGING * (ABNORMAL) GLUCOSE - POINT OF CARE (09/26/2018 1:30 PM CDT) Glucose WB/POC 130(H) 70 - 106 mg/dL 09/26/2018 3:19 PM CDT [facility] Specimen Type Arterial/C apillary 09/26/2018 3:19 PM CDT [facility] Blood BLOOD SPECIMEN / Unknown 09/26/2018 1:30 PM CDT 09/26/2018 3:19 PM CDT Jaciel So MD LAB - POINT OF CARE ORDERABLES [facility] [address] [place] [address] * (ABNORMAL) GLUCOSE - POINT OF CARE (09/26/2018 8:56 AM CDT) Glucose WB/POC 156(H) 70 - 106 mg/dL 09/26/2018 9:05 AM CDT [facility] Specimen Type Arterial/C apillary 09/26/2018 9:05 AM CDT [facility] Blood BLOOD SPECIMEN / Unknown 09/26/2018 8:56 AM CDT 09/26/2018 9:04 AM CDT Jaciel So MD LAB - POINT OF CARE ORDERABLES [facility] [address] [place] [address] * SONOGRAM - COMPLETE (09/26/2018 8:53 AM CDT) Anatomical Region Laterality Modality Other 09/26/2018 8:53 AM CDT Narrative 09/27/2018 7:48 PM CDT ?[facility] ? - [place] [facility] ?PHONE: ??FAX: Pat. Name: ?JAGDEEP MATHEWS. No: ?[id number] Study Date: ?? 09/26/2018 ??8:53am , Age: ? 1995, 22 Pregnancies: ?? 2, Para 1 Height: ? 60 in Weight: ? 180 lb LMP: ?Unknown GA by Base: ?? 23w5d ?? ULISES: 01/18/2019 GA by US: ? 23w2d ?? ULISES: 01/21/2019 GA Selected: ??23w5d (From [facility]) ULISES: ?01/18/2019 Referring MD: Hunter, , [facility] [employer]: ??Lianne Baker CPT4: ? 11827,35198 BMI: ?35.15 Room: ? 556 Hist/Ind: ? Vaginal bleeding ?Tobacco use ?Delivery at 34 wk (severe pre-eclampsia, malpresentation, IUGR) ?Obesity ?Placenta previa ?Follow up anatomy screen MEASUREMENTS & AGE ? GROWTH EVALUATION Measurement ??GA ? Range ? Srce %for GA Ratios ----- ---- ------- BPD ??5.5 cm 22w5d (07w3e-98w0h) Hadl BPD 11% FL/BPD 0.75 (0.71 - 0.87) HC ??20.7 cm 22w6d (91f4e-39s6r) Hadl HC ??6% FL/AC ??0.21 (0.20 - 0.24) AC ??19.7 cm 24w2d (97u4x-27s1i) Hadl AC ??60% HC/AC ??1.05 (1.03 - 1.22) FL ?? 4.1 cm 23w2d (84r1p-56b3y) Hadl FL ??22% CI ? 0.75 (0.70 - 0.86) HL ?? 3.8 cm 23w2d (82t9f-11a5v) [place] HL ??41% GA for sonogram 23w2d (97d7d-16z8q) ?? Weight Estimate: based on (BPD,HC,AC,FL) Avg ?Weight: 621 gm (530-711gm) [place] ? : 1lbs, 5oz ? Normal: 646 gm (484-807gm) [place] ? Wt% ? 39% for 23w5d Cervix: ??Length: 4.4 cm ??Approach: transvaginal ??Funneling: not present Heart Rate: 153 bpm Amniotic Fluid Index: 05.6cm (Deepest Pocket) EVAL, PLACENTA Presentation: cephalic Placenta: anterior:posterior:right lateral Previa: complete previa Heart Rate: 153 bpm Amniotic Fluid Volume: normal Anatomy!Normal!Abnormal!Suboptimal!Prev. Seen!Comments Cranium [...] ?! ?! ? x ?! Kidneys ?! ?! ?! ?! ? x ?! Bladder ?! ?? x ??! ?! ?! ? x ?! 3 Vessel Cord! ?! ?! ?! ? x ?! Cord In! ?! ?! ?! ? x ?! Upper Extremi! ?! ?! ?! ? x ?! Hands ?! ?? x ??! ?! ?! ?! Lower Extreme! ?! ?! ?! ? x ?! Feet ? ! ?? x ??! ?! ?! ?! External Deena! ?! ?! ?! ? x ?! CLINICAL SUMMARY Study Number: 3 ?? A single fetus is identified in cephalic presentation. ??The measurements today are consistent with appropriate interval growth compared to previous study. ??The ULISES selected is based on a prior ultrasound examination at 8 weeks. ??The amniotic fluid volume is normal. ??The placenta is anterior,posterior,right lateral. ??No major malformations are seen. ?? TRANSVAGINAL ULTRASOUND The posterior portion of the placenta completely covers the internal os, but extends only slightly on to the anterior lip of the cervix. IMPRESSION: Single, live, IUP at 23w5d. ?? size consistent with established ULISES. ?? No sonographic signs of abnormality. ?? Normal amniotic fluid volume Reassuring cervical length Complete placenta previa RECOMMEND: ?? Repeat ultrasound as clinically indicated per the inpatient team. ?? Thank you for allowing us the opportunity to care for your patient. cc: ??Inpatient at time of study ? Candace Peacock MD ?<Electronic Signature> ??09/27/2018 07:48pm Lianne PEREIRA ORDERABLES * (ABNORMAL) GLUCOSE - POINT OF CARE (09/26/2018 6:17 AM CDT) Glucose WB/POC 108(H) 70 - 106 mg/dL 09/26/2018 6:24 AM CDT [facility] Specimen Type Arterial/C apillary 09/26/2018 6:24 AM CDT [facility] Blood BLOOD SPECIMEN / Unknown 09/26/2018 6:17 AM CDT 09/26/2018 6:24 AM CDT Jaciel So MD LAB - POINT OF CARE ORDERABLES Performing Organization Address City/[facility]/ZIP Co de Phone Number [facility] [address] [place] [address] * PREPARE (CROSSMATCH) RBC UNIT(S), 2 Units (09/25/2018 8:45 PM CDT) Product Code R7577M08 [facility] Unit Donor # [id number] S [facility] ABO Donor Type B [facility] Rh Type Unit POS [facility] Unit Status Ret'd [facility] OD [facility]ANK LAB ABO Rh Type Unit BPOS [facility] Donor Unit Expiration Date [facility] Blood Type Barcode 7300 [facility] Product Code [id number] [facility] Unit Donor # [id number] S [facility] B[facility] ABO Donor Type B [facility] Rh Type Unit POS [facility] Unit Status Ret'd [facility] BLO OD BANK LAB ABO Rh Type Unit BPOS [facility] Donor Unit Expiration Date [facility] Blood Type Barcode 7300 [facility] Blood Bank BLOOD SPECIMEN / Unknown 09/25/2018 8:45 PM CDT Essence Faria MD LAB - BLOOD BANK O RDERABLES [facility] [address] [place], [place] [id number] [place] [address] * (ABNORMAL) GLUCOSE - POINT OF CARE (09/25/2018 8:09 PM CDT) Glucose WB/POC 132(H) 70 - 106 mg/dL 09/25/2018 8:19 PM CDT [facility] Specimen Type Arterial/C apillary 09/25/2018 8:19 PM CDT [facility] Blood BLOOD SPECIMEN / Unknown 09/25/2018 8:09 PM CDT 09/25/2018 8:18 PM CDT Jaciel So MD LAB - POINT OF CARE ORDERABLES Performing Organization Address [facility]/ZIP Co de Phone Number [facility] [address] [place] [phone] * (ABNORMAL) GLUCOSE CHALLENGE (09/25/2018 3:51 PM CDT) Glucose Challenge 147(H) 64 - 140 mg/dL 09/25/2018 5:23 PM CDT [facility] Glucose Challenge Time 09/25/2018 5:23 PM CDT [facility] Blood BLOOD SPECIMEN / Unknown Lab Venipuncture / Unknown 09/25/2018 3:51 PM CDT 09/25/2018 4:49 PM CDT Luciana Yañez DO LAB - CHEMISTRY OR DERABLES Performing Organization Address [facility]/ZIP Co de Phone Number [facility] [address] [place] [phone] * URINALYSIS - POCT (IP) NOTIFICATION (09/25/2018 3:34 PM CDT) Comment Notification Label Only - See Separate Report 09/25/2018 5:00 PM CDT [facility] Urine URINE / Unknown 09/25/2018 3 :34 PM CDT 09/25/2018 3:34 PM CDT Pat Sánchez MD LAB - URINALYSIS ORD ERABLES Performing Organization Address City/[facility]/ZIP Co de Phone Number [facility] [address] [place] [phone] * (ABNORMAL) CBC W AUTO DIFFERENTIAL (09/25/2018 1:20 PM CDT) WBC 11.8(H) 4.4 - 10.7 x10E9/L 09/25/2018 1:45 PM CDT [facility] WBC Corrected x10E9/L 09/25/2018 1:45 PM CDT [facility] RBC 3.93 3.80 - 5.20 x10E12/L 09/25/2018 1:45 PM CDT [facility] Hemoglobin 11.6(L) 12.0 - 15.6 gm/dL 09/25/2018 1:45 PM CDT [facility] Hematocrit 36.1 35.9 - 45.5 % 09/25/2018 1:45 PM CDT [facility] MCV 91.9 80.7 - 98.3 fl 09/25/2018 1:45 PM CDT [facility] MCH 29.5 26.7 - 34.0 pg 09/25/2018 1:45 PM CDT [facility] MCHC 32.1 30.8 - 35.9 gm/dL 09/25/2018 1:45 PM CDT [facility] Platelet Count 224 153 - 416 x10E9/L 09/25/2018 1:45 PM CDT [facility] RDW-CV 12.3 12.1 - 14.9 % 09/25/2018 1:45 PM CDT [facility] MPV 11.0 9.4 - 12.9 fl 09/25/2018 1:45 PM CDT [facility] Neutrophils % 78.2(H) 44.0 - 73.0 % 09/25/2018 1:45 PM CDT [facility] Lymphocytes % 13.5(L) 20.0 - 43.0 % 09/25/2018 1:45 PM CDT [facility] Monocytes % 5.8 5.0 - 13.0 % 09/25/2018 1:45 PM CDT [facility] Eosinophils % 0.8 0.0 - 6.0 % 09/25/2018 1:45 PM CDT [facility] Basophils % 0.3 0.0 - 2.0 % 09/25/2018 1:45 PM CDT [facility] Immature Granulocytes 1.4(H) 0 - 1 % 09/25/2018 1:45 PM CDT [facility] Neutrophil Absolute 9.24(H) 2.01 - 7.14 x10E9/L 09/25/2018 1:45 PM CDT [facility] Lymphocytes Absolute 1.59 1.07 - 3.94 x10E9/L 09/25/2018 1:45 PM CDT [facility] Monocytes Absolute 0.69 0.26 - 1.07 x10E9/L 09/25/2018 1:45 PM CDT [facility] Eosinophils Absolute 0.09 0 - 0.47 x10E9/L 09/25/2018 1:45 PM CDT [facility] Basophils Absolute 0.03 0 - 0.08 x10E9/L 09/25/2018 1:45 PM CDT [facility] Immature Granulocytes Absolute 0.17(H) 0.00 - 0.06 x10E9/L 09/25/2018 1:45 PM CDT [facility] nRBC Auto 0 /100 WBC 09/25/2018 1:45 PM CDT [facility] Blood BLOOD SPECIMEN / Unknown Venipuncture / Unknown 09/25/2018 1:20 PM CDT 09/25/2018 1:38 PM CDT Luciana Yañez DO LAB - HEMATOLOGY O MAHI Performing Organization Address [facility] Co de Phone Number [facility] [address] [place] [phone] * TYPE + SCREEN PANEL (09/25/2018 1:20 PM CDT) ABO B 09/25/2018 2:26 PM CDT [facility] Rh Type Positive 09/25/2018 2:26 PM CDT [facility] Comment:History checked. Antibody Screen Negative 09/25/2018 2:26 PM CDT [facility] Blood Bank BLOOD SPECIMEN / Unknown Venipuncture / Unknown 09/25/2018 1:20 PM CDT 09/25/2018 1:38 PM CDT Luciana Yañez DO LAB - BLOOD BANK O MAHI Performing Organization Address City/[facility] Co de Phone Number [facility] [address] [place] [address] documented in this encounter Visit Diagnoses Diagnosis Placenta previa without hemorrhage, antepartum (HCC)- Primary Placenta previa without hemorrhage, antepartum Placenta previa without hemorrhage, antepartum (HCC) Placenta previa without hemorrhage, antepartum Vaginal bleeding in , second trimester (HCC) documented in this encounter Administered Medications Inactive Administered Medications - up to 3 most recent administrations Medication Order MAR Action Action Date Dose Rate Site 0.9% NaCl injection 10 mL 10 mL, Intracatheter, EVERY 8 HOURS, 1095 doses, First dose on 09/25/18 at 2200, Last dose on 09/25/19 at 1400 $ Given 09/26/2018 2:00 PM CDT 10 mL $ Given 09/26/2018 6:17 AM CDT 10 mL $ Given 09/25/2018 9:18 PM CDT 10 mL acetaminophen (TYLENOL) tablet 1,000 mg 1,000 mg, Oral, ONCE, 1 dose, On 09/25/18 at 1415 $ Given 09/25/2018 2:13 PM CDT 1,000 mg aspirin (ASPIRIN) chew tablet 162 mg 162 mg, Oral, DAILY, 365 doses, First dose on 09/25/18 at 1615, Last dose on Wed09/24/19 at 0900 $ Given 09/26/2018 9:08 AM CDT 162 mg $ Given 09/25/2018 5:36 PM CDT 162 mg betamethasone acet & sod phos (CELESTONE) injection 12 mg 12 mg, Intramuscular, EVERY 24 HOURS, 2 doses, First dose on 09/25/18 at 1430, Last dose on Wed09/26/18 at 1430, Protect from light. $ Given 09/26/2018 2:00 PM CDT 12 mg Right Ventrogluteal $ Given 09/25/2018 3:55 PM CDT 12 mg Le ft Dorsogluteal calcium carbonate (TUMS) chew tablet 2 tablet 2 tablet, Oral, EVERY 4 HOURS PRN, GI Upset, Starting on 09/25/18 at 1259, Until Wed09/26/18 at 1931 docusate sodium (COLACE) capsule 100 mg 100 mg, Oral, 2 TIMES DAILY, 730 doses, First dose on 09/25/18 at 1330, Last dose on 09/24/19 at 2100 metoclopramide (REGLAN) injection 10 mg 10 mg, Intravenous, EVERY 6 HOURS PRN, Nausea/Vomiting, Starting on 09/25/18 at 1259, Until 09/26/18 at 1931, Start with ondansetron. If ondansetron ineffective use metoclopramide. If metoclopramide ineffective use prochlorperazine. ondansetron (ZOFRAN) injection 4 mg 4 mg, Intravenous, EVERY 6 HOURS PRN, Nausea/Vomiting, Starting on 09/25/18 at 1259, Until 09/26/18 at 1931, Start with ondansetron. If ondansetron ineffective use metoclopramide. If metoclopramide ineffective use prochlorperazine. polyethylene glycol 3350 (MIRALAX) packet 17 g 17 g, Oral, DAILY PRN, Constipation, Starting on 09/25/18 at 1259, Until 09/26/18 at 1931, Mix in 8 ounces of water, juice, soda, coffee or tea prior to administration vitamin with iron tablet 1 tablet 1 tablet, Oral, DAILY, 365 doses, First dose on 09/25/18 at 1330, Last dose on 09/24/19 at 0900 $ Given 09/26/2018 9:08 AM CDT 1 tablet $ Given 09/25/2018 5:36 PM CDT 1 tablet prochlorperazine (COMPAZINE) suppository 25 mg 25 mg, Rectal, EVERY 12 HOURS PRN, Nausea/Vomiting, Starting on 09/25/18 at 1259, Until 09/26/18 at 1931, Start with ondansetron. If ondansetron ineffective use metoclopramide. If metoclopramide ineffective use prochlorperazine. simethicone (MYLICON) chew tablet 160 mg 160 mg, Oral, QID PRN (after meals and at bedtime), Gas Pain, Starting on 09/25/18 at 1259, Until 09/26/18 at 1931 documented in this encounter Active and Recently Administered Medications Times are shown in CDT. Scheduled Medication Order 09/24/2018 09/25/2018 09/26/2018 0.9% NaCl injection 10 mL 10 mL, Intracatheter, EVERY 8 HOURS, 1095 doses, First dose on 09/25/18 at 2200, Last dose on 09/25/19 at 1400 2118 ($ Given - Provider: Jahaira Doyle RN) 0617 ($ Given - Provider: Jahaira Doyle RN)1400 ($ Given - Provider: Jolanta Richards, RN) acetaminophen (TYLENOL) tablet 1,000 mg (COMPLETED) 1,000 mg, Oral, ONCE, 1 dose, On 09/25/18 at 1415 1413 ($ Given - Provider: Nita Mosqueda, FLEX) aspirin (ASPIRIN) chew tablet 162 mg (CANCELED) 162 mg, Oral, DAILY, 365 doses, First dose on 09/25/18 at 1615, Last dose on 09/24/19 at 0900 1736 ($ Given - Provider: Nita Mosqueda, FELX) 0908 ($ Given - Provider: Jolanta Richards, FLEX) betamethasone acet & sod phos (CELESTONE) injection 12 mg (COMPLETED) 12 mg, Intramuscular, EVERY 24 HOURS, 2 doses, First dose on 09/25/18 at 1430, Last dose on Wed09/26/18 at 1430, Protect from light. 1555 ($ Given - Provider: Nita Mosqueda RN) 1400 ($ Given - Provider: Jolanta Richards, FLEX) docusate sodium (COLACE) capsule 100 mg 100 mg, Oral, 2 TIMES DAILY, 730 doses, First dose on 09/25/18 at 1330, Last dose on 09/24/19 at 2100 1722 (Not Administered - Provider: Charlene Storm RN - Reason: Refused-Patient)2120 (Not Administered - Provider: Jahaira Doyle RN - Reason: Refused-Patient) 0908 (Not Administered - Provider: Jolanta Richards, FLEX - Reason: Refused-Patient) vitamin with iron tablet 1 tablet 1 tablet, Oral, DAILY, 365 doses, First dose on 09/25/18 at 1330, Last dose on 09/24/19 at 0900 1736 ($ Given - Provider: Nita Mosqueda RN) 0908 ($ Given - Provider: Jolanta Richards, FLEX) PRN Medication Order 09/24/2018 09/25/2018 09/26/2018 calcium carbonate (TUMS) chew tablet 2 tablet 2 tablet, Oral, EVERY 4 HOURS PRN, GI Upset, Starting on 09/25/18 at 1259, Until 09/26/18 at 193 metoclopramide (REGLAN) injection 10 mg(Linked Group 1) 10 mg, Intravenous, EVERY 6 HOURS PRN, Nausea/Vomiting, Starting on 09/25/18 at 1259, Until 09/26/18 at 193, Start with ondansetron. If ondansetron ineffective use metoclopramide. If metoclopramide ineffective use prochlorperazine. ondansetron (ZOFRAN) injection 4 mg(Linked Group 1) 4 mg, Intravenous, EVERY 6 HOURS PRN, Nausea/Vomiting, Starting on 09/25/18 at 1259, Until Wed09/26/18 at 193, Start with ondansetron. If ondansetron ineffective use metoclopramide. If metoclopramide ineffective use prochlorperazine. polyethylene glycol 3350 (MIRALAX) packet 17 g 17 g, Oral, DAILY PRN, Constipation, Starting on 09/25/18 at 1259, Until Wed09/26/18 at 193, Mix in 8 ounces of water, juice, soda, coffee or tea prior to administration prochlorperazine (COMPAZINE) suppository 25 mg(Linked Group 1) 25 mg, Rectal, EVERY 12 HOURS PRN, Nausea/Vomiting, Starting on 09/25/18 at 1259, Until Wed09/26/18 at 193, Start with ondansetron. If ondansetron ineffective use metoclopramide. If metoclopramide ineffective use prochlorperazine. simethicone (MYLICON) chew tablet 160 mg 160 mg, Oral, QID PRN (after meals and at bedtime), Gas Pain, Starting on 09/25/18 at 1259, Until Wed09/26/18 at 193 Linked Groups Order Group 1: ondansetron (ZOFRAN) injection 4 mgJump to med 4 mg, Intravenous, EVERY 6 HOURS PRN, Nausea/Vomiting, Starting on 09/25/18 at 1259, Until 09/26/18 at 1931, Start with ondansetron. If ondansetron ineffective use metoclopramide. If metoclopramide ineffective use prochlorperazine. Or metoclopramide (REGLAN) injection 10 mgJump to med 10 mg, Intravenous, EVERY 6 HOURS PRN, Nausea/Vomiting, Starting on 09/25/18 at 1259, Until 09/26/18 at 1931, Start with ondansetron. If ondansetron ineffective use metoclopramide. If metoclopramide ineffective use prochlorperazine. Or prochlorperazine (COMPAZINE) suppository 25 mgJump to med 25 mg, Rectal, EVERY 12 HOURS PRN, Nausea/Vomiting, Starting on 09/25/18 at 1259, Until 09/26/18 at 1931, Start with ondansetron. If ondansetron ineffective use metoclopramide. If metoclopramide ineffective use prochlorperazine. documented in this encounter Care Teams Business Technology Teacher Relationship Specialty Start Date End Date Gala Singh MD [address] [id number] PCP - General 08/02/18 documented as of this encounter
--- OUTSIDE RECORDS SUMMARY | 2024-04-27 18:02 | XMS_ITS | Encounter Summary ---
Author Organization [facility] Address [address] [place] [address] Care Team Providers Care Surveillance Systems Analyst Name Role Phone Gala Singh MD Primary Care Provider [phone] Encounter Details Date Type Department Care Team (Latest Contact Info) Description 11/24/2018 8:51 AM CDT - 11/24/2018 8:52 AM CDT Hospital Encounter [facility] MATERNAL/ EVALUATION UNIT [address] [place] [address] Candace Peacock MD [address] [place] [address] Discharge Disposition: Home or Self [...] Sig Dispensed Refills Start Date End Date docusate sodium (COLACE) 100 MG capsule Take [...] 12/26/2018 02/24/2019 documented as of this encounter Plan of Treatment Not on file documented as of this encounter Procedures Procedure Name Priority Date/Time Associated Diagnosis Comments SONOGRAM - COMPLETE Routine 11/24/2018 8 :58 AM CDT Supervision of high risk , antepartum (HCC) documented in this encounter Results * SONOGRAM - COMPLETE (11/24/2018 8:58 AM CDT) Anatomical Region Laterality Modality Other 11/24/2018 8:58 AM CDT Narrative 11/24/2018 10:20 AM CDT ?[facility] [place] [facility] ?PHONE: ??FAX: Pat. Name: ?JEROME MATHEWSCelsa Granger Pat. No: ?[id number] Study Date: ?? 11/24/2018 ??8:58am , Age: ? 1995, 23 Pregnancies: ?? 2, Para 1 Height: ? 60 in Weight: ? 180 lb LMP: ?Unknown GA by Base: ?? 32w1d ?? ULSIES: 01/18/2019 GA by US: ? 31w6d ?? ULISES: 01/20/2019 GA Selected: ??32w1d (From [facility]) ULISES: ?01/18/2019 Referring MD: Hunter, , [facility] Transmission Systems Operator: ??Radha Ricardo, KAT, RDCS CPT4: ? 85600,[id number] BMI: ?35.15 Room: ? 556 Hist/Ind: ? Vaginal bleeding ?Tobacco use ?Delivery at 34 wk (severe pre-eclampsia, malpresentation, IUGR) ?Obesity ?Placenta previa ?Completed anatomy survey MEASUREMENTS & AGE ? GROWTH EVALUATION Measurement ??GA ? Range ? Srce %for GA Ratios ----- ---- ------- BPD ??7.8 cm 31w3d ([id number]) Hadl BPD 21% FL/BPD 0.75 (0.71 - 0.87) HC ??29.6 cm 32w5d (19a1h-14t3i) Hadl HC ??28% FL/AC ??0.19 (0.20 - 0.24* AC ??31.5 cm 35w3d ([id number]) Hadl AC ??>99 HC/AC ??0.94 (0.95 - 1.14* FL ?? 5.9 cm 30w6d (27j6p-00c8l) Hadl FL ??9% CI ? 0.73 (0.70 - 0.86) GA for sonogram 31w6d ([id number]) ?? Weight Estimate: based on (BPD,HC,AC,FL) [place] ?Weight: 2214 gm (1891-2537gm) Had ? : 4lbs, 14oz ? Normal: 1992 gm (1494- 2490gm) Had ? Wt% ? 81% for 32w1d Cervix: ??Length: 3.1 cm ??Approach: transvaginal ??Funneling: not present Heart Rate: 161 bpm Amniotic Fluid Index: 14.0cm (08.5-24.3) Q1: 4.6cm ??Q2: 4.5cm ??Q3: 2.2cm ??Q4: 2.6cm ?? EVAL, PLACENTA Presentation: cephalic Placenta: anterior:posterior previa Heart Rate: 161 bpm Amniotic Fluid Volume: normal CLINICAL SUMMARY Study Number: 2 ?? A single fetus is seen in the cephalic presentation. ??The measurements today are consistent with greater ??than what is expected. ??The ULISES is based on a prior ultrasound. ??The amniotic fluid volume is normal. ?? No major structural anomalies are seen. ?? Extensive evaluation of the placenta was performed today. ??There is a posterior/right lateral placenta previa. ??However, the majority of the placenta body is anterior and then wraps right lateral and posteriorly. ??The placental cord insertion site is in the right lower aspect of the uterus and appears velamentous. ??The myometrial-placenta interface appears normal, there are no bridging vessels, and no placental lakes. IMPRESSION: Single, live, IUP at 32w1d ?? Appropriate overall size but concern for overgrowth developing with AC >99%ile (previously at 76%ile) Amniotic fluid volume: Normal ?? Posterior placenta previa with anterior placentation No sonographic evidence today of placenta accreta spectrum RECOMMEND: Follow up ultrasound in 3-4 weeks for growth testing as clinically indicated Thank you for allowing us the opportunity to care for your patient. ?? Telly Parker MD <Electronic Signature> ??11/24/2018 10:19am Silvestre Silverman MD MFM ORDERABLES documented in this encounter Visit Diagnoses Diagnosis Supervision of high risk , antepartum (HCC)- Primary documented in this encounter Care Teams Surveillance Systems Analyst Relationship Specialty Start Date End Date Gala Singh MD [address] [phone] PCP - General 08/02/18 documented as of this encounter
--- OUTSIDE RECORDS SUMMARY | 2024-04-27 18:02 | XMS_ITS | Encounter Summary ---
Author Organization [facility] Address [address] [place], [place] [address] [address] Care Team Providers Care Meat Hostess Name Role Phone Unavailable Primary Care Provider Unavailabl e Reason for Visit * Reason Comments Ultrasound Encounter Details Date Type Department Care Team (Latest Contact Info) Description 08/01/2018 10:46 AM CDT - 08/01/2018 10:48 AM CDT Hospital Encounter [facility] MATERNAL/ EVALUATION UNIT [address] [place] [address] [address] [place] [address] Lynda Valerio MD [facility] [address] [place] [address] Discharge Disposition: Home or Self Care Social [...] No 11/08/2013 documented as of this encounter Plan of Treatment Not on file documented as of this encounter Procedures Procedure Name Priority Date/Time Associated Diagnosis Comments SONOGRAM - COMPLETE Routine 08/01/2018 1 2:08 PM CDT documented in this encounter Results * SONOGRAM - COMPLETE (08/01/2018 12:08 PM CDT) Anatomical Region Laterality Modality Other 08/01/2018 12:0 8 PM CDT Narrative 08/01/2018 2:08 PM CDT ?[facility] [place] [facility] ?PHONE: ??FAX: Pat. Name: ?CAIT AJ Pat. No: ?[id number] Study Date: ?? 08/01/2018 ??12:08pm , Age: ? 1995, 22 Pregnancies: ?? 2, Para 1 Height: ? 60 in Weight: ? 180 lb LMP: ?Unknown GA by US: ? 15w6d ?? ULISES: 01/17/2019 GA Selected: ??15w5d (Outside Scan) ULISES: ?01/18/2019 Referring MD: Hunter, , [facility] Motor Rebuilder: ??Tara Bills, KAT, RVT,NE CPT4: ? 07370 BMI: ?35.15 Hist/Ind: ? Dating/KATLIN ?HTN, Smoker ?1 PT delivery/ at 7mo/Pre-E MEASUREMENTS & AGE ? GROWTH EVALUATION Measurement ??GA ? Range ? Srce %for GA Ratios ----- ---- ------- BPD ??3.4 cm 16w3d (54k1d-73o9w) Hadl BPD 77% FL/BPD 0.52 HC ??12.2 cm 16w1d (90s3u-87l8j) Hadl HC ??55% FL/AC ??0.18 AC ?? 9.5 cm 15w4d (56p7g-63p1r) Hadl AC ??47% HC/AC ??1.28 (1.10 - 1.29) FL ?? 1.8 cm 15w1d (65m7y-77j0m) Hadl FL ??24% CI ? 0.80 (0.70 - 0.86) HL ?? 2.0 cm 16w0d (45e6q-17q1c) [place] HL ??54% GA for sonogram 15w6d (94k9u-41v1d) ?? Weight Estimate: based on (BPD,HC,AC,FL) Avg ?Weight: 127 gm (108-145gm) Hadloc ? : 0lbs, 4oz ? Normal: 139 gm (105-174gm) Hadloc ? Wt% ? 26% for 15w5d Heart Rate: 151 bpm Amniotic Fluid Index: 03.9cm (Deepest Pocket) EVAL, PLACENTA Presentation: breech Umbilical Cord: 3 Vessels Placenta: anterior & posterior Heart Rate: 151 bpm Amniotic Fluid Volume: normal Anatomy!Normal!Abnormal!Suboptimal!Prev. Seen!Comments Cranium ?! ?! ?! ? x ?! ?! Mdl (CSP/Thal! ?! ?! ? x ?! ?! Ventricles ?? ! ?! ?! ? x ?! ?! Choroid Plexu! ?? x ??! ?! ?! ?! Cerebellum ?? ! ?! ?! ? x ?! ?! Cisterna M. ??! ?! ?! ? x ?! ?! Nuchal Fold ??! ?! ?! ? x ?! ?! Profile ?! ?! ?! ? x ?! ?! Nasal Bone ?? ! ?! ?! ? x ?! ?! Lip ?! ?! ?! ? x ?! ?! Spine ?! ?! ?! ? x ?! ?! Lungs ?! ?! ?! ? x ?! ?! 4 Chamber Hea! ?! ?! ? x ?! ?! LVOT ? ! ?! ?! ? x ?! ?! RVOT ? ! ?! ?! ? x ?! ?! 3 Vessel View! ?! ?! ? x ?! ?! Cross-over ?? ! ?! ?! ? x ?! ?! Ductal Arch ??! ?! ?! ? x ?! ?! Aortic Arch ??! ?! ?! ? x ?! ?! Caval View ?? ! ?! ?! ? x ?! ?! Situs ?! ?! ?! ? x ?! ?! Diaphragm ?! ?! ?! ? x ?! ?! Stomach ?! ?? x ??! ?! ?! ?! Bowel ?! ?? x ??! ?! ?! ?! Kidneys ?! ?? x ??! ?! ?! ?! Bladder ?! ?? x ??! ?! ?! ?! 3 Vessel Cord! ?? x ??! ?! ?! ?! Cord In! ?! ?! ? x ?! ?! Upper Extremi! ?! ?! ? x ?! ?! Hands ?! ?! ?! ? x ?! ?! Lower Extreme! ?! ?! ? x ?! ?! Feet ? ! ?! ?! ? x ?! ?! External Deena! ?! ?! ? x ?! ?! CLINICAL SUMMARY Study Number: 1 ?? A single fetus is identified in breech presentation. ??The measurements today are consistent with appropriate size for the ULISES provided. ??The ULISES selected is based on a prior 8 week ultrasound examination. ??The amniotic fluid volume is normal. ??The placenta is anterior & posterior. ??No major malformations are seen. ??The anatomy was not visualized completely due to position, gestational age, and poor acoustic properties. ?? Patient declined transvaginal cervical length; it was not imaged adequately transabdominally. IMPRESSION: ?? Live, hernadez IUP at 15w5d size consistent with established ULISES. No sonographic signs of abnormality. Incomplete anatomic survey RECOMMEND: ?? Repeat ultrasound at 20 weeks for detailed anatomic survey, measure cervical length, and assess the relationship between the cervix and the placental location. ?? Thank you for allowing us the opportunity to care for your patient. Candace Peacock MD <Electronic Signature> ??08/01/2018 02:05pm Vlad Monae MD [facility] ORDERABLES documented in this encounter Visit Diagnoses Not on filedocumented in this encounter
--- OUTSIDE RECORDS SUMMARY | 2024-04-27 18:02 | XMS_ITS | Encounter Summary ---
Author Organization [facility] Address [address] [place] [address] Care Team Providers Care Electric Blasting Cap Assembler Name Role Phone Unavailable Primary Care Provider Unavailabl e Reason for Visit * Reason Comments Eye Problem Encounter Details Date Type Department Care Team (Late st Contact Info) Description 04/02/2017 11:40 AM METALLURGIST HELPER Office Visit [facility] [address] [address] Provider, Dahlia Harding [facility] Acute purulent conjunctivitis of both eyes (Primary Dx) Social History Tobacco Use Types [...] Sign Reading Time Taken Comments Blood Pressure 106/60 04/02/2017 11:49 AM METALLURGIST HELPER Pulse 82 04/02/2017 11:49 AM METALLURGIST HELPER Temperature 37.1 ??C (98.7 ??F) 04/02/2017 11:[address] Respiratory Rate - - Oxygen Saturation - - Inhaled Oxygen Concentration - - Weight 81.6 kg (180 lb) 04/02/2017 11:49 AM METALLURGIST HELPER Height 152.4 cm (5') 04/02/2017 11:49 AM METALLURGIST HELPER Body Mass Index 35.15 04/02/2017 11:49 AM METALLURGIST HELPER documented in this encounter Functional Status Functional Status Response Date of Assess ment Is person deaf or have serious hearing difficult y? No 11/08/2013 Is person blind or have serious difficulty seeella g? No 11/08/2013 Does person have serious dif ficulty walking/climbing stairs? No 11/08/2013 Does person have difficulty dressing/bathing? No 11/08/2013 Does person have difficulty doing errands alone? No 11/08/2013 Cognitive Status Response Date of Assessm ent Does person have difficulty concentrating/remembering/making decisions? No 11/08/2013 documented as of this encounter Patient Instructions * Patient Instructions* Malika Lara APRN-AUTOMOBILE SERVICE STATION MANAGER - 04/02/2017 11:57 AM METALLURGIST HELPER Images from the original note were not included. Conjunctivitis OFFICE SERVICES ASSOCIATE: Conjunctivitis, or pink eye, is inflammation of your conjunctiva. The conjunctiva is a thin tissue that covers the front of your eye and the back of your eyelids. The conjunctiva helps protect your eye and keep it moist. Conjunctivitis may be caused by bacteria, allergies, or a virus. If your conjun ctivitis is caused by bacteria, it may get better on its own in about 7 days. Viral conjunctivitis can last up to 3 weeks. Common symptoms may include any of the following: You will usually have symptoms in both eyes if your conjunctivitis is caused by allergies. You may also have other allergic symptoms, such as a rash or runny nose. Symptoms will usually start in 1 eye if your conjunctivitis is caused by a virus or bacteria. ?? Redness in the whites of your eye ?? Itching in your eye or around your eye ?? Feeling like there is something in your eye ?? Watery or thick, sticky discharge ?? Crusty eyelids when you wake up in the morning ?? Burning, stinging, or swelling in your eye ?? Pain when you see bright light Seek care immediately if: ?? You have worsening eye pain. ?? The swelling in your eye gets worse, even after treatment. ?? Your vision suddenly becomes worse or you cannot see at all. Contact your healthcare provider if: ?? You develop a fever and ear pain. ?? You have tiny bumps or spots of blood on your eye. ?? You have questions or concerns about your condition or care. Treatment will depend on the cause of your conjunctivitis. You may need antibiotics or allergy medicine as a pill, eye drop, or eye ointment. Manage your symptoms: ?? Apply a cool compress. Wet a washcloth with cold water and place it on your eye. This will help decrease itching and irritation. ?? Do not wear contact lenses. They can irritate your eye. Throw away the pair you are using and ask when you can wear them again. Use a new pair of lenses when your healthcare provider says it is okay. ?? Avoid irritants. Stay away from smoke filled areas. Shield your eyes from wind and sun. ?? Flush your eye. You may need to flush your eye with saline to help decrease your symptoms. Ask for more information on how to flush your eye. Medicines: Treatment depends on what is causing your conjunctivitis. You may be given any of the following: ?? Allergy medicine helps decrease itchy, red, swollen eyes caused by allergies. It may be given asa pill, eye drops, or nasal spray. ?? Antibiotics may be needed if your conjunctivitis is caused by bacteria. This medicine may be given as a pill, eye drops, or eye ointment. ?? Take your medicine as directed. Contact your healthcare provider if you think your medicine is not helping or if you have side effects. Tell him or her if you are allergic to any medicine. Keep a list of the medicines, vitamins, and herbs you take. Include the amounts, and when and why you take them. Bring the list or the pill bottles to follow-up visits. Carry your medicine list with you in case of an emergency. Prevent the spread of conjunctivitis: ?? Wash your hands with soap and water often. Wash your hands before and after you touch your eyes.Also wash your hands before you prepare or eat food and after you use the bathroom or change a diaper. ?? Avoid allergens. Try to avoid the things that cause your allergies, such as pets, dust, or grass. ?? Avoid contact with others. Do not share towels or washcloths. Try to stay away from others as much as possible. Ask when you can return to work or school. ?? Throw away eye makeup. The bacteria that caused your conjunctivitis can stay in eye makeup. Throw away mascara and other eye makeup. ?? 2016 [employer]. Information is for End User's use only and may not be sold, redistributed or otherwise used for commercial purposes. All illustrations and images included in CareNotes?? are the copyrighted property of [employer]. or [employer] The above information is an ortho/prosthetic aide only. It is not intended as medical advice for individual conditions or treatments. Talk to your doctor, nurse or pharmacist before following any medical regimen to see if it is safe and effective for you. LLURGIST HELPER documented in this encounter Progress Notes * Malika Lara APRN-CNP - 04/02/2017 11:51 AM CST Images from the original note were not included. [facility] Chief Complaint Patient presents with ??? Eye Problem SUBJECTIVE: HPI Comments: 21 yo female presents with irritation and matting OS. Began as irritation a few days ago, woke with matting this AM. Denies vision changes or pain Past Medical History: Diagnosis Date ??? Chlamydia [...] History Narrative No family history on file. Current Outpatient Prescriptions Medication Sig Dispense Refill ??? trimethoprim-polymyxin B (POLYTRIM) 92036-5.1 UNIT/ML-% ophthalmic solution Instill 1 drop intoboth eyes every 3 hours for 7 days 1 bottles 0 No current facility-administered medications for this visit. No Known Allergies REVIEW OF SYSTEMS: Review of Systems Constitutional: Negative. Eyes: Positive for discharge and redness. Respiratory: Negative. OBJECTIVE: General appearance: alert, well appearing, and in no distress. BP 106/60 Pulse 82 Temp 98.7 ??F (Oral) Ht 1.524 m (5') Wt 81.6 kg (180 lb) BMI 35.15 kg/m2 Physical Exam Constitutional: She is oriented to person, place, and time and well-developed, well-nourished, and in no distress. Eyes: EOM are normal. Pupils are equal, round, and reactive to light. Conjunctiva OS erythematous with scant discharge. Conjunctiva OD mildly erythematous, no discahrge. Cardiovascular: Normal rate and regular rhythm. Pulmonary/Chest: Effort normal and breath sounds normal. Neurological: She is alert and oriented to person, place, and time. Skin: Skin is warm and dry. ASSESSMENT: No results found for this visit on 04/02/17. Encounter Diagnosis Name Primary? Acute purulent conjunctivitis of both eyes Yes PLAN: Orders Placed This Encounter ??? trimethoprim-polymyxin B (POLYTRIM) 15802-4.1 UNIT/ML-% ophthalmic solution Sig: Instill 1 drop into both eyes every 3 hours for 7 days Dispense: 1 bottles Refill: 0 Conjunctivitis OFFICE SERVICES ASSOCIATE: Conjunctivitis, or pink eye, is inflammation of your conjunctiva. The conjunctiva is a thin tissue that covers the front of your eye and the back of your eyelids. The conjunctiva helps protect your eye and keep it moist. Conjunctivitis may be caused by bacteria, allergies, or a virus. If your conjun ctivitis is caused by bacteria, it may get better on its own in about 7 days. Viral conjunctivitis can last up to 3 weeks. Common symptoms may include any of the following: You will usually have symptoms in both eyes if your conjunctivitis is caused by allergies. You may also have other allergic symptoms, such as a rash or runny nose. Symptoms will usually start in 1 eye if your conjunctivitis is caused by a virus or bacteria. ?? Redness in the whites of your eye ?? Itching in your eye or around your eye ?? Feeling like there is something in your eye ?? Watery or thick, sticky discharge ?? Crusty eyelids when you wake up in the morning ?? Burning, stinging, or swelling in your eye ?? Pain when you see bright light Seek care immediately if: ?? You have worsening eye pain. ?? The swelling in your eye gets worse, even after treatment. ?? Your vision suddenly becomes worse or you cannot see at all. Contact your healthcare provider if: ?? You develop a fever and ear pain. ?? You have tiny bumps or spots of blood on your eye. ?? You have questions or concerns about your condition or care. Treatment will depend on the cause of your conjunctivitis. You may need antibiotics or allergy medicine as a pill, eye drop, or eye ointment. Manage your symptoms: ?? Apply a cool compress. Wet a washcloth with cold water and place it on your eye. This will help decrease itching and irritation. ?? Do not wear contact lenses. They can irritate your eye. Throw away the pair you are using and ask when you can wear them again. Use a new pair of lenses when your healthcare provider says it is okay. ?? Avoid irritants. Stay away from smoke filled areas. Shield your eyes from wind and sun. ?? Flush your eye. You may need to flush your eye with saline to help decrease your symptoms. Ask for more information on how to flush your eye. Medicines: Treatment depends on what is causing your conjunctivitis. You may be given any of the following: ?? Allergy medicine helps decrease itchy, red, swollen eyes caused by allergies. It may be given asa pill, eye drops, or nasal spray. ?? Antibiotics may be needed if your conjunctivitis is caused by bacteria. This medicine may be given as a pill, eye drops, or eye ointment. ?? Take your medicine as directed. Contact your healthcare provider if you think your medicine is not helping or if you have side effects. Tell him or her if you are allergic to any medicine. Keep a list of the medicines, vitamins, and herbs you take. Include the amounts, and when and why you take them. Bring the list or the pill bottles to follow-up visits. Carry your medicine list with you in case of an emergency. Prevent the spread of conjunctivitis: ?? Wash your hands with soap and water often. Wash your hands before and after you touch your eyes.Also wash your hands before you prepare or eat food and after you use the bathroom or change a diaper. ?? Avoid allergens. Try to avoid the things that cause your allergies, such as pets, dust, or grass. ?? Avoid contact with others. Do not share towels or washcloths. Try to stay away from others as much as possible. Ask when you can return to work or school. ?? Throw away eye makeup. The bacteria that caused your conjunctivitis can stay in eye makeup. Throw away mascara and other eye makeup. ?? 2016 [employer] Information is for End User's use only and may not be sold, redistributed or otherwise used for commercial purposes. All illustrations and images included in CareNotes?? are the copyrighted property of [employer], [employer]. or [employer] The above information is an ortho/prosthetic aide only. It is not intended as medical advice for individual conditions or treatments. Talk to your doctor, nurse or pharmacist before following any medical regimen to see if it is safe and effective for you. LLURGIST HELPER documented in this encounter Plan of Treatment Not on file documented as of this encounter Visit Diagnoses Diagnosis Acute purulent conjunctivitis of both eyes- Primary Other mucopurulent conjunctivitis documented in this encounter
--- OUTSIDE RECORDS SUMMARY | 2024-04-27 18:02 | XMS_ITS | Encounter Summary ---
Author Organization [facility] Address [address] [place] [address] Care Team Providers Care Flight Crew Scheduler Name Role Phone Unavailable Primary Care Provider Unavailabl e Reason for Visit * Reason Onset Date Comments Follow-up 10/16/2016 Encounter Details Date Type Department Care Team (Late st Contact Info) Description 10/16/[address] [facility] [address] [address] [facility] Follow-up Social History Tobacco Use Types Packs/Day Years [...]
--- OUTSIDE RECORDS SUMMARY | 2024-04-27 18:02 | XMS_ITS | Encounter Summary ---
Author Organization [facility] Address [address] [place] [address] Care Team Providers Care Security Tester Name Role Phone Gala Singh MD Primary Care Provider [phone] Reason for Visit * Reason Comments Vaginal Bleeding * Auth/Cert Specialty Diagnoses / Procedures Referred By Contac t Referred To Contact Referral ID Status Reason Start Date Expiration Date Visits Re quested Visits Authorized [id number] 1 1 Encounter Details Date Type Department Care Team (Late st Contact Info) Description 11/03/2018 4:08 AM CDT - 11/05/2018 12:56 PM CDT Hospital Encounter [facility] 5E ANTEPARTUM/MOTHER BABY [id number] [phone] Diomedes Parker MD [address] [facility] [address] [id number] Obstetrics Discharge Disposition: Home or Self Care Social History Tobacco Use Types Packs/Day Years Used Date Smoking Tobacco: Every Day Cigarettes Smokeless Tobacco: Never Tobacco Cessation:Ready to Q uit: No; Counseling Given: Yes Alcohol Use Standard Drinks/Week Comments No 0 (1 standard drink = 0.6 oz pur e alcohol) Comments Yes Sex and Gender Information Value Date Recorded Sex Assigned at Not on file Gender Identity Not on file Sexual Orientation Not on file documented as of this encounter Last Filed Vital Signs Vital Sign Reading Time Taken Comments Blood Pressure 128/82 11/05/2018 11:25 AM CDT Pulse 94 11/05/2018 11:25 AM CDT Temperature 36.6 ??C (97.9 ??F) 11/05/2018 11:25 AM C DT Respiratory Rate 18 11/05/2018 11:25 AM CDT Oxygen Saturation 99% 11/05/2018 11:25 AM CDT Inhaled Oxygen Concentration - - Weight 89.8 kg (198 lb) 11/03/2018 4:09 AM CDT Height 152.4 cm (5') 11/03/2018 4:09 AM CDT Body Mass Index 38.67 11/03/2018 4:09 AM CDT documented in this encounter Functional [...] No 11/03/2018 documented as of this encounter Discharge Summaries * Amadou Roberts MD - 11/05/2018 12:56 PM CDT Antepartum Discharge Summary Date of Admission: 11/03/2018 Date of Discharge: 11/05/2018 Admission Diagnosis: 23 year old at 29w1d gestation 1. Vaginal Bleeding, with known complete posterior previa 2. H/O C/S x1 3. Asthma 4. Tobacco dependence Discharge Diagnosis: IUP at 30w0d with 1. As above, plus Service: [facility]aternal [facility] Consults: None History: Cait Mathews is a 23 year old at 29w1d gestation whose care was with [facility]. The patient presented with complaints of vaginal bleeding. She reports she woke up at1:30 and felt like she was leaking. She went to the bathroom and passed a softball sized clot with a big gush into the toilet. Since then she has only had pink spotting. She reports some right sided back cramps since that time. Denies leakage of fluid. Normal movement. negative Ctx. negative LOF. positive VB. positive FM.. was complicated by: Patient Active Problem List Diagnosis [...] Supervision of high risk , antepartum 11/09/2013 Hospital Course: Patient admitted to [facility] Antepartum service, initially to [facility] for continuous monitoring. Patient with reassuring status, was transferred to antepartum unit. Hemoglobin remained stable, with nofurther vaginal bleeding. Remainder of inpatient course was unremarkable. Patient was not a candidate for ANCS, as patient had received them during her prior Antepartum admission (09/25-09/26/18). Results: No results for input(s): ABORH in the last 02367 hours. Recent Labs Component Name 11/04/18 0521 11/03/18 0543 10/27/18 1003 WBC 13.9* 15.3* 12.9* HGB 11.2* 12.2 12.0 HCT 33.7* 37.5 37.1 PLTCOUNT 213 228 222 Discharge Vitals: BP 128/82 Pulse 94 Temp 97.9 ??F (36.6 ??C) Resp 18 Ht 5' (1.524 m) Wt 198 lb (89.8 kg) SpO2 99% BMI 38.67 kg/m2 Dispostion: Home Followup: with [facility] on November 09, 2018. Continue/start these medications at home: Current Discharge Medication List CONTINUE taking these medications which have NOT CHANGED Instructions Authorizing Provider vitamin 27-0.8 MG tablet Take 1 tablet by mouth once daily Discharge Instructions: Discharge Procedure Orders Why you were hospitalized Order Specific Question Answer Comments Your discharge diagnosis is: Placenta previa antepartum [080138] No special diet needed Resume your normal home diet as tolerated. Eat well-balanced meals that include foods from all of the food groups. Drink plenty of fluids It is important that you stay well hydrated. You should drink at least eight to ten 8-ounce glassesof water per day. Count kicks Count your baby's movements every day for 2 hours, you should feel at least 10 movements (kicks). Once you have felt 10 movements, you can stop counting. As you are counting movements, please keep in mind: A. Perform Kick Counts at your baby's normal active time B. Perform in a side-lying position without interruptions C. Eat a snack within an hour of counting. D. If you do not reach 10 movements in 2 hours call your provider for additional instructions Activity as tolerated Nothing per vagina Until cleared by your Coding Coordinator No sexual activity Until cleared by your Coding Coordinator No heavy lifting Do not lift anything over 15 pounds Until cleared by your Coding Coordinator. May shower Contact your provider Call your Coding Coordinator if you have questions or concerns, or for any of the following issues: -- for a temperature higher than 100.4 F -- for pain that gets worse or does not get better after taking your pain medication(s) as directed -- if you have severe cramping or increased vaginal bleeding -- if you have a gush or trickling of fluid from your vagina -- if you experience new onset headaches, visual changes or increased abdominal pain not relieved with pain medication If you have any of the following symptoms, please notify your doctor as soon as you can, or call the : Severe and unusual headache, not relieved with 2 Extra Strength tylenol tablets every 6 hours (1,000 milligrams four times a day). Visual changes, including blurry vision, spots in your eyes, tunnel vision or flashing lights. Significant nausea, vomiting, heartburn, pain in the top right area of your abdomen or above your belly button. These can be symptoms related to elevated blood pressure in (pre- eclampsia). You and yourbaby may need to be monitored and other lab work may need to be ordered if you develop these symptoms. It is common to experience mild contractions called Lucio-Whitaker contractions, especially in the third trimester. These are usually not very painful and irregular. If you experience contractions that are getting progressively stronger, taking your breath away, more regular to where they are occurring 5 minutes apart, and are not relieved with rest, fluids and Tylenol (two extra- strength tabs every 6 hours), you should be seen. Other reasons to return to the [facility] include: A large gush of fluid running down your legs or a steady watery discharge, which may indicate that your water is broken Heavy vaginal bleeding, like a period. Decrease in your baby's movement. You should always feel free to call us at [phone] if you are wondering whether you should be seen or not. This lets you speak to a registered nurse (RN) or doctor. Contact your Provider Contact your provider if you are experiencing any of the following: --shortness of breath --nausea or throwing up --diarrhea or constipation --temperature higher than 100.4 F --Burning or painful urination --A change in color or odor to your urine Follow up with provider Order Specific Question Answer Comments Follow Up Instructions: next week on 11/09 as scheduled Amadou Roberts MD 11/08/2018 2:16 PM * Candis Navarrete, RN - 11/05/2018 12:30 PM CDT Orders received to discharge patient. Discharge instrutions given to patient, read through and reviewed. All questoins answered, no other needs at this time. documented in this encounter Medications at Time of Discharge Medication Sig Dispensed Refills Start Date End Date Vit-Fe Fumarate-FA ( VITAMIN) 27-0.8 MG tablet Take 1 tablet by mouth once daily documented as of this encounter Progress Notes * Amadou Roberts MD - 11/05/2018 7:37 AM CDT R3 Antepartum Progress Note Date: 11/05/2018 Hospital Day: 2 Subjective: Cait Mathews is a 22 year old at 29w3d weeks gestation. There were no acute overnight events. She reports she is feeling well, would like to be home for her birthday tomorrow. She deniesvaginal bleeding, loss of fluid, and contractions. She reports normal movement. Objective: Patient Vitals for the past 24 hrs: Temp Pulse Resp BP SpO2 11/04/18 2310 98.2 ??F (36.8 ??C) 86 18 129/76 100 % 11/04/18 2005 98.1 ??F (36.7 ??C) 104 18 132/75 97 % 11/04/18 1530 98.2 ??F (36.8 ??C) - 18 124/76 - 11/04/18 1000 98.1 ??F (36.7 ??C) 87 18 127/71 97 % Intake/Output Summary (Last 24 hours) at 11/05/18 0737 Last data filed at 11/04/182008 Gross per 24 hour Intake 780 ml Output 0 ml Net 780 ml Physical Exam: General: alert, cooperative, no distress Lungs: clear to auscultation bilaterally Heart: regular rate and rhythm Abdomen: gravid, nontender, no palpable contractions Extremities: normal, non-tender bilaterally Labs: Recent Labs Component Name 11/04/18 0521 11/03/18 0543 10/27/18 1003 WBC 13.9* 15.3* 12.9* HGB 11.2* 12.2 12.0 HCT 33.7* 37.5 37.1 PLTCOUNT 213 228 222 Recent Labs Component Name 11/15/13 0806 11/12/13 [...] 5.3* 5.1* 5.5* EGFR >60 >60 >60 NST/[facility]: See separate procedure note MEDICATIONS FOR CURRENT ENCOUNTER: ?? SCHEDULED MEDICATIONS: ?? 0.9% NaCl injection 3 mL, Intracatheter, q8h ?? docusate sodium (COLACE) capsule 100 mg, Oral, BID ?? iron polysaccharides (NIFEREX 150) capsule 150 mg, Oral, QDAY ?? nicotine (NICODERM CQ) patch 21 mg, Transdermal, QDAY ?? vitamin with iron tablet 1 tablet, Oral, QDAY ?? CONTINUOUS MEDICATIONS: ?? PRN MEDICATIONS: ?? 0.9% NaCl injection 1-10 mL, Intracatheter, PRN ?? acetaminophen (TYLENOL) tablet 650 mg, Oral, q6h PRN ?? skupzlcu-foevjqfjb-sbmssdvkwco (MAALOX;MYLANTA) suspension 20 mL, Oral, q6h PRN ?? ondansetron (disintegrating) (ZOFRAN ODT) tablet 4 mg, Oral, q6h PRN ?? polyethylene glycol 3350 (MIRALAX) packet 17 g, Oral, QDAY PRN ?? simethicone (MYLICON) chew tablet 160 mg, Oral, 4X/day - PC & NIGHTLY PRN Assessment/Plan: 22 year old at 29w3d, with 1. Complete Posterior Previa with Vaginal Bleeding 1. 2nd bleed this 2. Softball sized clot at home with minimal continued bleeding (pink spotting) 3. SVE: no active bleeding from cervix, minimal old blood in vaginal vault 4. BSUS: No obvious signs of placental abruption 5. S/p Ante admission 09/25- for bleed & s/p course of ANCS 6. Hgb stable: 12.0>12.2>11.2 7. Plan: monitor for bleeding, CBC QD 2. H/o CS x 1 3. Asthma 1. Asymptomatic at present 2. No medications currently 4. Tobacco use 1. Nicotine patch while inpatient 5. Supervision of 1. PNC with Dr. Guadarrama 2. B+/I/-/- HIV 3. GCT: 147 4. GTT: 97, 167, 121, 138 Dispo: To be discussed with Antepartum team on rounds. Continue inpatient surveillance for Previa with bleeding. Anticipate D/C home today with strict precautions. Patient lives 40 minutes from here and 7 minutes from [facility]. Amadou Roberts MD 11/05/2018 7:37 AM Associated attestation - Diomedes Parker MD - 11/05/2018 3:13 PM CDT MFM Attending Attestation I have reviewed the history, findings and plan of care with the resident and agree with their documentation except for any changes in my documentation. No further VB or clots. No OB complaints. Would like to go home. Exam benign. FHR Tracings reactive Will d/c home with close outpatient f/u and strict warnings. Understands that any future bleeds maythen require hospitalization for the duration of the . Diomedes Parker MD * Brittany Jeffery RN - 11/05/2018 5:55 AM CDT Shift Summary: VSS and assessment WDL. Reporting scant dark brown discharge. Denies cntx, cramping,LOF, or bright red VB. Reports +FM. Ambulates in [place] with no difficulty. Phone and call light within reach. Will continue to monitor. * Brittany Jeffery RN - 11/05/2018 1:16 AM CDT Problem: Pain Related to Uterine Contractions Alteration in comfort. Goal: Decreased Uterine Activity Outcome: Ongoing Cait denies feeling any cntx, cramping, LOF. Reports scant brown discharge. Encouraged increasedfluid intake. Cait understands to alert staff of any changes * Ksenia Mg I - 11/04/2018 11:27 AM CDT CLINICAL NUTRITION Pt screened per nutrition Leveling of Care protocol: and not here to deliver. She reports a good appetite with 3 meals daily and snack in the afternoon and sometimes at bedtime. She declinedsnacks today but know she can call and order if she is hungry . Weight gain of 20 # more than expected . GCT elevated 3 hr GTT with 1 abnormal value FBS , consider accu- checks . She is considering . Gestational Age: 29w2d Med/Surg History and Clinical Diagnoses: 29w2d Complete previa with second episode of bleeding , Obesity Height: 5' (152.4 cm) Weight: 198 lb (89.8 kg) Pre- Weight: 178 lb (80.7 kg) Pre-PregnancyBMI: 34.84 Recent Labs Component Name 11/04/18 0521 11/03/18 0543 10/27/18 1003 HGB 11.2* 12.2 12.0 HCT 33.7* 37.5 37.1 Agree with supplementation of PNV + and Niferex. Recent Labs Component Name 09/25/18 1551 GESTDIABSCRN 147* Recent Labs Component Name 10/06/18 1101 GLUCOSEFAST 97* [id number] 167 [id number] 121 [id number] 138 A woman admitted at 29w2d with Estimated Date of Delivery: 01/18/19. Weight gain of 20 # which is more than expected , ideal for GA and BMI is 7-14 # Prepregnancy BMI indicates : severly obese class 2 . Skin/Wound: WDL. Appetite : good Last BM 11-03-18 Diet Order:Current diet order: Regular Food Allergies: No known food allergies P.O.intake for past 48 hours: % Meal Taken Av % Min: 100 % Max: 100 % Nutrition recommendation: agree with current nutrition order Education needed: ; Education provided Expected level of compliance: Good Pt was provided [facility] educational material Nutrition and , Food for a Healthy Baby .Discussed healthy eating during and . Reviewed recommended servings of fruits, vegetables, whole grains, lean protein, and low fat calcium rich foods. Discouraged consumption of high-fat/high- calorie foods. Including food safety for with list of foods to limit and avoid . Recommended pt consume adequate fluids from water. Discussed weight gain goals and tips to slow weight gain if needed . Encouraged for 6 months to 1 year and discussed benefits to motherand baby. Will follow per low nutritional risk protocol. Ksenia Zion Saurav DTPeenlope 11/04/2018 11:32 AM Ascom [id number] * Deepa Chaudhry, GLASSWARE SELECTOR-SENIOR BUSINESS ARCHITECT - 11/04/2018 9:05 AM CDT [facility] MFM Antepartum Progress Note Date: 11/04/2018 Hospital Day: 1 Subjective: Cait Mathews is a 22 year old G 2 P 1 A 0 at 29w2d weeks gestation. Patient reports no bleeding. Reports slight brown discharge like my usual. Denies feeling contractions. Reports good movement. She denies chest pain, shortness of breath, headache or abdominal pain. Objective: BP 137/70 Pulse 85 Temp 98 ??F (36.7 ??C) Resp 18 Ht 5' (1.524 m) Wt 198 lb (89.8 kg) SpO2 99% BMI 38.67 kg/m2 Temp (24hrs) Max:98.1 ??F (36.7 ??C) Systolic (30hrs), Av , Min:117 , Max:137 Diastolic (30hrs), Av, Min:59, Max:78 Intake/Output Summary (Last 24 hours) at 11/04/18 0905 Last data filed at 11/03/18 1859 Gross per 24 hour Intake 480 ml Output 800 ml Net -320 ml No data found. Physical Exam: General: alert, cooperative, no distress Lungs: non-labored respirations Abdomen: gravid, NT Extremities: No LE edema NST: See formal NST Note: reactive TOCO: Problem List: Patient Active Problem List: [...] second trimester Vaginal bleeding during , antepartum MEDICATIONS FOR CURRENT ENCOUNTER: ?? SCHEDULED MEDICATIONS: ?? 0.9% NaCl injection 3 mL, Intracatheter, q8h ?? docusate sodium (COLACE) capsule 100 mg, Oral, BID ?? iron polysaccharides (NIFEREX 150) capsule 150 mg, Oral, QDAY ?? nicotine (NICODERM CQ) patch 21 mg, Transdermal, QDAY ?? vitamin with iron tablet 1 tablet, Oral, QDAY ?? CONTINUOUS MEDICATIONS: ?? PRN MEDICATIONS: ?? 0.9% NaCl injection 1-10 mL, Intracatheter, PRN ?? acetaminophen (TYLENOL) tablet 650 mg, Oral, q6h PRN ?? pbtdsqbo-wgynewsok-wbnoudwfzfa (MAALOX;MYLANTA) suspension 20 mL, Oral, q6h PRN ?? ondansetron (disintegrating) (ZOFRAN ODT) tablet 4 mg, Oral, q6h PRN ?? polyethylene glycol 3350 (MIRALAX) packet 17 g, Oral, QDAY PRN ?? simethicone (MYLICON) chew tablet 160 mg, Oral, 4X/day - PC & NIGHTLY PRN Assessment/ Plan: 22 year old at 29w2d 2. Complete Posterior Previa with Vaginal Bleeding 1. 2nd bleed this 2. Softball sized clot at home with minimal continued bleeding (pink spotting) 3. SVE: no active bleeding from cervix, minimal old blood in vaginal vault 4. BSUS: No obvious signs of placental abruption 5. S/p admission 09/25- for bleed, received ANCS at that time 6. H&H today: 11.2 & 33.7 3. H/o CS x 1 4. Asthma 1. No medications currently 5. Tobacco use 1. Nicotine patch while inpatient 6. Supervision of 1. PNC with Dr. Guadarrama 2. B+/I/-/- HIV 3. GCT: 147 4. GTT: 97, 167, 121, 138 7. Plan: Continue inpatient surveillance for Previa with bleeding. Patient lives 40 minutes from here and 7 minutes from [facility]. Plan discussed with Dr. Parker on rounds Deepa ADI Alonso 11/04/2018 9:05 AM * Brittany Jeffery RN - 11/04/2018 5:46 AM CDT Shift Summary: VSS and assessment WDL. Reports scant brown discharge. Denies cntx, cramping, LOF, or bright red bleeding. Reports +Fm. Ambulates in room with steady gait. Phone and call light within reach. Will continue to monitor. * Brittany Jeffery RN - 11/04/2018 2:46 AM CDT Problem: Bleeding Precautions Goal: Excessive bleeding will be minimized Outcome: Ongoing Cait is reporting only small amount of dark brown discharge. Denies any clots/bright red bleeding. Encouraged to alert staff of any changes. Will continue to monitor. * Nita Mosqueda RN - 11/03/2018 6:33 PM CDT Shift Summary- Cait reports no bleeding throughout the day. No cramping or contractions. No LOF.Denies pain. Baby moving well. VSS. S/S to report reviewed. Will continue to assess. * Brittany Jeffery RN - 11/03/2018 7:51 AM CDT Shift summary: pt came from [facility] @ 0600. Reports +FM. Denies cntx, cramping, LOF. Reports scant-nonebrown discharge. Up to bathroom without difficulty. Phone and call light within reach. Pt lying comfortably in bed. Report given and care transferred. documented in this encounter H&P Notes * Sara Duran MD - 11/03/2018 4:14 AM CDT R1 Obstetric H&P Note 11/03/2018, 4:14 AM CC: Vaginal bleeding HPI: 22 year old at 29w1d gestation Datin week ultrasound Estimated Date of Delivery: 01/18/19 care: KATLIN from Dr. Guadarrama to [facility], now [facility] Patient's is complicated by: Patient Active Problem [...] 11/09/2013 Patient presents with complaints of vaginal bleeding. She reports she woke up at 1:30 and felt likeshe was leaking. She went to the bathroom and passed a softball sized clot with a big gush into thetoilet. Since then she has only had pink spotting. She reports some R sided back cramps since that time. Denies leakage of fluid. Normal movement. negative Ctx. negative LOF. positive VB. positive FM. Review of Symptoms: Positive for: see HPI Denies: see HPI Obstetrical History: OB History Para Term AB [...] of procedure on cervix: no STI History: h/o Chlamydia, Denies other STIs Medical History: Past Medical History: Diagnosis Date [...] Start Date End Date Taking? Authorizing Provider Vit-Fe Fumarate-FA ( VITAMIN) 27-0.8 MG tablet Take 1 tablet by mouth once daily Yes Provider, MD Amada Allergies: No Known Allergies Social History: Social History Smoking status: Current Every Day Smoker Packs/day: 0.25 Years: 0.00 Smokeless status: Never Used Alcohol use: No Drug use: No Sexual activity: Not on file Comment: Denies chance of Family History: No family history on file. Objective: Patient Vitals for the past 24 hrs: Resp 11/03/18 0409 18 Assessment/ Non-Stress Test Baseline: 135 beats/minute moderate variability Reactive Contractions: none Decelerations: Small variables Physical Exam General: no acute distress, alert and oriented x3 HEENT: extra-occular movements intact, moist mucous membranes Heart: regular rate and rhythm, no rubs/murmurs/gallops Lungs: clear to auscultation bilaterally, no wheezing/crackles Abdomen: gravid, soft, non-tender Extremities: non-tender bilaterally, no edema bilaterally Neuro: cranial nerves grossly intact, strength and sensation intact and symmetric bilaterally Psych: appropriate affect Sterile speculum exam: Minimal old blood in posterior fornix, cleared with [place] swabs, No active bleeding Cervical Exam Not done - placenta previa Bedside ultrasound: Presentation: vertex Placenta: anterior and posterior DVP: 6.23 cm Current Lab Review: No results found for this visit on 11/03/18. labs Blood type: B+ Rubella: immune Hep B surface antigen:non-reactive RPR: non-reactive HIV:Negative GCT: 147, GTT wnl (97/167/121/138) GBS: Not Tested Assessment/Plan: 22 year old at 29w1d gestation 1. Complete Posterior Previa with Vaginal Bleeding 1. 2nd bleed this 2. Softball sized clot at home with minimal continued bleeding (pink spotting) 3. SVE: no active bleeding from cervix, minimal old blood in vaginal vault 4. BSUS: No obvious signs of placental abruption 5. S/p admission for bleed - got ANCS at that time. 6. Plan: admit to [facility] for continuous monitoring and observation for continued bleeding. Will hold off on ANCS at this time unless she bleeds again. 2. H/o CS x 1 1. Desires TOLAC - however not a candidate at this time given placenta previa 3. Asthma 1. No medications currently 4. Tobacco use 1. Nicotine patch while inpatient Discussed with Dr. Elder and Dr. Roger Flores MD 11/03/2018 4:14 AM R4 H&P Attestation: Patient presented to [facility] with a complaint of vaginal bleeding. She felt leaking this morning while she was sleeping and passed a large clot into the toilet. She denies any contractions or leakage of fluid. She reports good movement. She has a known history of a complete posterior previa and was previously admitted to the antepartum service on 09/25-09/26 for her first large bleed. She received a course of ANCS on . She got a sterile speculum exam which showed no active bleeding from the cervix and minimal blood. Because her bleeding has now improved and she is not complaining of any contractions, will hold off on givingher second course of ANCS at this time. If she starts bleeding again or if there is any concern with non-reassuring status, then may warrant giving her second course at this time. FWB reassuring with accelerations and moderate variability. Some small variable decelerations seen. Dr. Parker to see patient in the morning. Sara Duran MD 11/03/2018 6:25 AM Associated attestation - Diomedes Parker MD - 11/03/2018 12:05 PM CDT Maternal- Medicine Attending Attestation I have personally seen and discussed Ms. Cait Mathews with Dr. Bauer. I have reviewed the history, findings and plan of care with the resident and agree with their documentation except for any changes in my documentation. In brief, Ms. Cait Mathews is 22 year old at 29w1d who was admitted for vaginal bleeding with a known posterior placenta previa. She passed a large sized clot and had a small amount bright red bleeding. Some cramps but nothing regular. Currently, denies any further VB or LOF. +FM. No cramps or CTXs. Her is complicated by: Patient Active Problem List: Tobacco abuse Supervision [...] second trimester Vaginal bleeding during , antepartum OB History Para Term AB Living 2 1 0 1 0 1 SAB TAB Ectopic Multiple Live Births 0 0 0 0 1 # Outcome Date GA Lbr Abdullahi/2nd Weight Sex Delivery Anes PTL Lv 2 Current 1 11/17/13 34w0d 1790 g (3 lb 15.1 oz) F CS-LTranv Spinal MARCUS Social History Social History ??? Marital status: [...] Not on file Social History Narrative No Known Allergies MEDICATIONS FOR CURRENT ENCOUNTER: ?? SCHEDULED MEDICATIONS: ?? 0.9% NaCl injection 3 mL, Intracatheter, q8h ?? docusate sodium (COLACE) capsule 100 mg, Oral, BID ?? iron polysaccharides (NIFEREX 150) capsule 150 mg, Oral, QDAY ?? nicotine (NICODERM CQ) patch 21 mg, Transdermal, QDAY ?? vitamin with iron tablet 1 tablet, Oral, QDAY ?? CONTINUOUS MEDICATIONS: ?? PRN MEDICATIONS: ?? 0.9% NaCl injection 1-10 mL, Intracatheter, PRN ?? acetaminophen (TYLENOL) tablet 650 mg, Oral, q6h PRN ?? rdrpucis-fosirvaub-lzqccojavcs (MAALOX;MYLANTA) suspension 20 mL, Oral, q6h PRN ?? ondansetron (disintegrating) (ZOFRAN ODT) tablet 4 mg, Oral, q6h PRN ?? polyethylene glycol 3350 (MIRALAX) packet 17 g, Oral, QDAY PRN ?? simethicone (MYLICON) chew tablet 160 mg, Oral, 4X/day - PC & NIGHTLY PRN O: Patient Vitals in the past 36 hrs: 11/03/18 0409, Resp:18 11/03/18 0415, Temp:98.4 ??F (36.9 ??C), Resp:18, BP:128/73 11/03/18 0450, BP:117/59 11/03/18 0510, Resp:18 11/03/18 0610, Resp:18, BP:125/70 11/03/18 0705, Temp:98.2 ??F (36.8 ??C), Resp:18, BP:129/64 Gen: NAD, Alert HEENT: NC/AT CV: Regular rate Pulm: non-labored respirations Abd: Soft, NTTP, Gravid, obese Ext: BLE NTTP NST: reactive NST Recent Labs Component Name 11/03/18 0543 10/27/18 1003 09/25/18 1320 WBC 15.3* 12.9* 11.8* RBC 4.13 4.03 3.93 HGB 12.2 12.0 11.6* HCT 37.5 37.1 36.1 MCV 90.8 92.1 91.9 MCHC 32.5 32.3 32.1 PLTCOUNT 228 222 224 NEUTPCT 73.7* 79.4* 78.2* LYMPHPCT 16.0* 12.0* 13.5* BASOPHILPCT 0.5 0.5 0.3 GRANSIMMPCT 3.8* 3.2* 1.4* NEUTABS 11.29* 10.21* 9.24* LYMPHABS 2.45 1.54 1.59 BASOABS 0.08 0.06 0.03 Recent Labs Component Name 11/03/18 0543 ABO B RHTYPE Positive Assessment: IUP at 29w1d 1. Complete placenta previa with 2nd episode of bleeding; received course of steroids during previous admission 2. H/o x1 3. Obesity in 4. Asthma - mild intermittent 5. Tobacco abuse Counseling: Discussed monitoring at this time due to vaginal bleeding with known previa. Will hold off on repeat course of ANCS at this time, but discussed administering if concern for more immediate delivery. Discussed warnings signs. Plan: -Continuous EFM and toco for now -monitor through the day and if stable, will consider transfer to the floor -termite exterminator helper mgmt to be determined at this time (outpatient vs. Inpatient) I spent 30 minutes in review of available records and coordination of care. I had [id number] timewith this patient Diomedes Parker MD Maternal- medicine documented in this encounter Procedure Notes * Candis Navarrete RN - 11/05/2018 12:53 PM CDTAssociated Order(s): NON-STRESS TEST Procedure(s): NONSTRESS TEST Name: Cait Mathews Date of : 1995 Today's Date: 11/05/2018 NST RESULTS (STANLEY) OBJECTIVE FINDINGS Temp: 97.9 ??F (36.6 ??C), Pulse: 94, Resp: 18, BP: 128/82 NST Indication(s): Placenta Previa Uterine Irritability: No Contractions: Irregular Frequency: x2 Duration (sec) Range: 50 Perceived Intensity: (pt did not feel) OBJECTIVE FINDINGS Movement: Present Monitoring Mode: External Baseline: 145 BPM Variability: Moderate Decelerations: None Accelerations: Yes OTHER INFORMATION Comments: OK to d/c per Dr. Yañez Inpatient Interventions: None Start: 1015 Stop: 1046 Candis Navarrete RN * Amadou Roberts MD - 11/05/2018 7:41 AM CDTProcedure(s): NONSTRESS TEST Non-Stress Test Indications: [...] second trimester Vaginal bleeding during , antepartum Interpretation: Baseline: 150 beats/minute moderate variability Reactive Contractions: none Decelerations: none FWB reassuring, continue monitoring as scheduled. Amadou Roberts MD 11/05/2018 7:41 AM Associated attestation - Diomedes Parker MD - 11/05/2018 12:00 PM CDT U Maternal- Medicine Attending I have reviewed the NST and agree with the resident interpretation. Reactive NST Recommendation: Continue testing as indicated Diomedes Parker MD 11/05/2018 12:00 PM * Gingre Acosta RN - 11/04/2018 10:43 AM CDT Name: Cait Mathews Date of : 1995 Today's Date: 11/04/2018 Start 1010 Stop 1043 NST RESULTS (STANLEY) OBJECTIVE FINDINGS Temp: 98.1 ??F (36.7 ??C), Pulse: 87, Resp: 18, BP: 127/71 NST Indication(s): Placenta Previa Uterine Irritability: Yes Contractions: Not present OBJECTIVE FINDINGS Movement: Present Monitoring Mode: External Baseline: 140 BPM Variability: Moderate Decelerations: Variable Accelerations: Yes OTHER INFORMATION Inpatient Interventions: None Ginger Acosta RN Associated attestation - Deepa Chaudhry APRN-CNP - 11/04/2018 12:49 PM CDT I have reviewed the NST strip and the data in this note. My interpretation is reactive, no prolonged variables present No contractions present ADI Atwood documented in this encounter Plan of Treatment Pending Results Name Type Priority Associated Diagnoses Date /Time NON-STRESS TEST MATRNL MED Routine 5:57 PM CDT documented as of this encounter Procedures Procedure Name Priority Date/Time Associated Diagnosis Comments IMAGING/RADIOLOGY/XRA Y RESULTS ORDER 11/07/2018 5:50 PM CDT NON-STRESS TEST Routine 11/05/2018 12:54 PM CDT NON-STRESS TEST Routine 11/04/2018 5:57 PM CDT CBC W AUTO DIFFERENTIAL AM Draw 11/04/2018 5:21 AM CDT Vaginal bleeding during , antepartum (HCC) PREPARE RBC LEUKOREDUCED UNIT Routine 11/03/2018 4:45 PM CDT TYPE + SCREEN PANEL STAT 11/03/2018 5 :43 AM CDT Vaginal bleeding during , antepartum (HCC) ANTIBODY SCREEN Routine 11/03/2018 5:43 AM CDT Vaginal bleeding during , antepartum (HCC) CBC W AUTO DIFFERENTIAL STAT 11/03/2018 5:43 AM CDT Vaginal bleeding during , antepartum (HCC) CHLAMYDIA + GC AMPLIFIED PROBE STAT 11/03/2018 4:49 AM CDT Supervision of high risk , antepartum (HCC) TRICHOMONAS RAPID TEST STAT 11/03/2018 4:48 AM CDT Supervision of high risk , antepartum (HCC) documented in this encounter Results * IMAGING/RADIOLOGY/XRAY RESULTS ORDER (11/07/2018 5:50 PM CDT) Anatomical Region Laterality Modality Other Narrative 11/07/2018 [...] Interventions: None Start: 1015 Stop: 1046 Candis Navarrete RN Deepa Chaudhry GLASSWARE SELECTOR-SENIOR BUSINESS ARCHITECT MFM ORDERABLE S * (ABNORMAL) CBC W AUTO DIFFERENTIAL (11/04/2018 5:21 AM CDT) [facility] WBC 13.9(H) 4.4 - 10.7 x10E9/L 11/04/2018 5:56 AM CDT [facility] WBC Corrected x10E9/L 11/04/2018 5:56 AM CDT [facility] RBC 3.69(L) 3.80 - 5.20 x10E12/L 11/04/2018 5:56 AM CDT [facility] Hemoglobin 11.2(L) 12.0 - 15.6 gm/dL 11/04/2018 5:56 AM CDT [facility] Hematocrit 33.7(L) 35.9 - 45.5 % 11/04/2018 5:56 AM CDT [facility] MCV 91.3 80.7 - 98.3 fl 11/04/2018 5:56 AM CDT [facility] MCH 30.4 26.7 - 34.0 pg 11/04/2018 5:56 AM CDT [facility] MCHC 33.2 30.8 - 35.9 gm/dL 11/04/2018 5:56 AM CDT [facility] Platelet Count 213 153 - 416 x10E9/L 11/04/2018 5:56 AM CDT [facility] RDW-CV 13.1 12.1 - 14.9 % 11/04/2018 5:56 AM CDT [facility] MPV 11.2 9.4 - 12.9 fl 11/04/2018 5:56 AM CDT [facility] Neutrophils % 72.4 44.0 - 73.0 % 11/04/2018 5:56 AM CDT [facility] Lymphocytes % 17.3(L) 20.0 - 43.0 % 11/04/2018 5:56 AM CDT [facility] Monocytes % 6.6 5.0 - 13.0 % 11/04/2018 5:56 AM CDT [facility] Eosinophils % 0.9 0.0 - 6.0 % 11/04/2018 5:56 AM CDT [facility] Basophils % 0.3 0.0 - 2.0 % 11/04/2018 5:56 AM CDT [facility] Immature Granulocytes 2.5(H) 0 - 1 % 11/04/2018 5:56 AM CDT [facility] Neutrophil Absolute 10.05(H) 2.01 - 7.14 x10E9/L 11/04/2018 5:56 AM CDT [facility] Lymphocytes Absolute 2.40 1.07 - 3.94 x10E9/L 11/04/2018 5:56 AM CDT [facility] Monocytes Absolute 0.91 0.26 - 1.07 x10E9/L 11/04/2018 5:56 AM CDT [facility] Eosinophils Absolute 0.13 0 - 0.47 x10E9/L 11/04/2018 5:56 AM CDT [facility] Basophils Absolute 0.04 0 - 0.08 x10E9/L 11/04/2018 5:56 AM CDT [facility] Immature Granulocytes Absolute 0.35(H) 0.00 - 0.06 x10E9/L 11/04/2018 5:56 AM CDT [facility] nRBC Auto 0 /100 WBC 11/04/2018 5:56 AM CDT [facility] Blood BLOOD SPECIMEN / Unknown Lab Venipuncture / Unknown 11/04/2018 5:21 AM CDT 11/04/2018 5:51 AM CDT Georgette Felton MD LAB - HEMATOLOGY ORD ERABLES [facility] [address] [place] [address] * PREPARE (CROSSMATCH) RBC UNIT(S), 2 Units (11/03/2018 4:45 PM CDT) Product Code Z5828O23 [facility] Unit Donor # [id number] S [facility] ABO Donor Type B [facility] Rh Type Unit POS [facility] Unit Status Ret'd [facility] ABO Rh Type Unit BPOS [facility] Donor Unit Expiration Date [id number] [facility] Blood Type Barcode 7300 [facility] Product Code E0365R98 [facility] Unit Donor # [id number] S [facility] ABO Donor Type B [facility] Rh Type Unit POS [facility] Unit Status Ret'd [facility] B[facility] ABO Rh Type Unit BPOS [facility] Donor Unit Expiration Date [id number] [facility] Blood Type Barcode 7300 [facility] Blood Bank BLOOD SPECIMEN / Unknown 11/03/2018 4:45 PM CDT Georgette Felton MD LAB - BLOOD BANK ORD ERABLES Performing Organization Address City/[facility]/ZIP Co de Phone Number [facility] [address] [place] [address] * ANTIBODY SCREEN (11/03/2018 5:43 AM CDT) Pathologist [facility] Antibody Screen Negative 11/03/2018 7:43 AM CDT [facility] Blood Bank BLOOD SPECIMEN / Unknown Venipuncture / Unknown 11/03/2018 5:43 AM CDT 11/03/2018 5:49 AM CDT Lianne Flores MD LAB - BLOOD BANK ORD ERABLES Performing Organization Address City/[facility] Co de Phone Number [facility] [address] [place] [address] * (ABNORMAL) CBC W AUTO DIFFERENTIAL (11/03/2018 5:43 AM CDT) Pathologist [facility] WBC 15.3(H) 4.4 - 10.7 x10E9/L 11/03/2018 6:05 AM CDT [facility] WBC Corrected x10E9/L 11/03/2018 6:05 AM CDT [facility] RBC 4.13 3.80 - 5.20 x10E12/L 11/03/2018 6:05 AM CDT [facility] Hemoglobin 12.2 12.0 - 15.6 gm/dL 11/03/2018 6:05 AM CDT [facility] Hematocrit 37.5 35.9 - 45.5 % 11/03/2018 6:05 AM CDT [facility] MCV 90.8 80.7 - 98.3 fl 11/03/2018 6:05 AM CDT [facility] MCH 29.5 26.7 - 34.0 pg 11/03/2018 6:05 AM CDT [facility] MCHC 32.5 30.8 - 35.9 gm/dL 11/03/2018 6:05 AM [facility] Platelet Count 228 153 - 416 x10E9/L 11/03/2018 6:05 AM [facility] RDW-CV 12.9 12.1 - 14.9 % 11/03/2018 6:05 AM [facility] MPV 11.0 9.4 - 12.9 fl 11/03/2018 6:05 AM [facility] Neutrophils % 73.7(H) 44.0 - 73.0 % 11/03/2018 6:05 AM [facility] Lymphocytes % 16.0(L) 20.0 - 43.0 % 11/03/2018 6:05 AM [facility] Monocytes % 5.3 5.0 - 13.0 % 11/03/2018 6:05 AM [facility] Eosinophils % 0.7 0.0 - 6.0 % 11/03/2018 6:05 AM [facility] Basophils % 0.5 0.0 - 2.0 % 11/03/2018 6:05 AM [facility] Immature Granulocytes 3.8(H) 0 - 1 % 11/03/2018 6:05 AM [facility] Neutrophil Absolute 11.29(H) 2.01 - 7.14 x10E9/L 11/03/2018 6:05 AM [facility] Lymphocytes Absolute 2.45 1.07 - 3.94 x10E9/L 11/03/2018 6:05 AM [facility] Monocytes Absolute 0.82 0.26 - 1.07 x10E9/L 11/03/2018 6:05 AM [facility] Eosinophils Absolute 0.10 0 - 0.47 x10E9/L 11/03/2018 6:05 AM [facility] Basophils Absolute 0.08 0 - 0.08 x10E9/L 11/03/2018 6:05 AM [facility] Immature Granulocytes Absolute 0.59(H) 0.00 - 0.06 x10E9/L 11/03/2018 6:05 AM [facility] nRBC Auto 0 /100 WBC 11/03/2018 6:05 AM CDT [facility] Blood BLOOD SPECIMEN / Unknown Venipuncture / Unknown 11/03/2018 5:43 AM CDT 11/03/2018 5:49 AM CDT Lianne Flores MD LAB - HEMATOLOGY ORD ERABLES Performing Organization Address [facility]/ZIP Co de Phone Number [facility] [address] [place] [id number] * TYPE + SCREEN PANEL (11/03/2018 5:43 AM CDT) Pathologist [facility] ABO B 11/03/2018 7:45 AM CDT [facility] Rh Type Positive 11/03/2018 7:45 AM CDT [facility] Comment:History checked. Blood Bank BLOOD SPECIMEN / Unknown Venipuncture / Unknown 11/03/2018 5:43 AM CDT 11/03/2018 5:49 AM CDT Lianne Flores MD LAB - BLOOD BANK ORD ERABLES Performing Organization Address [facility] Co de Phone Number [facility] [address] [place] [id number] [place] [address] * CHLAMYDIA + GC AMPLIFIED PROBE (11/03/2018 4:49 AM CDT) [facility] Chlamydia Amplified Probe Negative Negative 11/03/2018 12:21 PM CDT [facility] GC Amplified Probe Negative Negative 11/03/2018 12:21 PM CDT [facility] Other PART OF UTERINE CERVIX / Unknown Collection / Unknown 11/03/2018 4:49 AM CDT 11/03/2018 4:54 AM CDT Narrative [facility] - 11/03/2018 12:21 PM CDT Results based on detection/no detection of ribosomal RNA by amplified method. Sara Duran MD LAB - MICROBIOLOGY O RDERABLES Performing Organization Address City/[facility]/ZIP Co de Phone Number [facility] [address] [place] [address], [facility] [phone] * TRICHOMONAS RAPID TEST (11/03/2018 4:48 AM CDT) Trichomonas Rapid Test Negative Negative 11/03/2018 5:13 AM CDT [facility] Microbiology VAGINAL SWAB / Unknown Collection / Unknown 11/03/2018 4:48 AM CDT 11/03/2018 4:54 AM CDT Sara Duran MD LAB - MICROBIOLOGY O RDERABLES [facility] [address] [place] [address] documented in this encounter Visit Diagnoses Diagnosis Vaginal bleeding during , antepartum (HCC)- Primary Vaginal bleeding during , antepartum ([facility]) Supervision of high risk , antepartum ([facility]) Placenta previa with hemorrhage in third trimester ([facility]) Hemorrhage from placenta previa, antepartum 29 weeks gestation of ([facility]) state, incidental documented in this encounter Administered Medications Inactive Administered Medications - up to 3 most recent administrations Medication Order MAR Action Action Date Dose Rate Site 0.9% NaCl injection 1-10 mL 1-10 mL, Intracatheter, PRN, Other, peripheral line flush, Starting on Morenita 11/03/18 at 0606, Until 11/05/18 at 1357, Flush peripheral IV catheter with 1-10 mL of normal saline before and after medications and prn to clear blood from the line or to verify patency. 0.9% NaCl injection 3 mL 3 mL, Intracatheter, EVERY 8 HOURS, 1095 doses, First dose on Morenita 11/03/18 at 0615, Last dose on Morenita 11/02/19 at 2200, Flush peripheral IV catheter with 3 mL of normal saline every 8 hours. $ Given 11/05/2018 5:52 AM CDT 3 mL $ Given 11/04/2018 8:01 PM CDT 3 mL $ Given 11/04/2018 5:47 PM CDT 3 mL acetaminophen (TYLENOL) tablet 650 mg 650 mg, Oral, EVERY 6 HOURS PRN, Mild Pain, Starting on Morenita 11/03/18 at 0606, Until 11/05/18 at 1357 $ Given 11/05/2018 9:06 AM CDT 650 mg $ Given 11/03/2018 4:03 PM CDT 650 mg docusate sodium (COLACE) capsule 100 mg 100 mg, Oral, 2 TIMES DAILY, 730 doses, First dose on Wed11/03/18 at 0900, Last dose on Wed11/02/19 at 2100 $ Given 11/05/2018 9:04 AM CDT 100 mg $ Given 11/04/2018 8:02 PM CDT 100 mg $ Given 11/04/2018 10:02 AM CDT 100 mg iron polysaccharides (NIFEREX 150) capsule 150 mg 150 mg, Oral, DAILY, 365 doses, First dose on Wed11/03/18 at 0900, Last dose on Wed11/02/19 at 0900 $ Given 11/05/2018 9:04 AM CDT 150 mg $ Given 11/04/2018 10:02 AM CDT 150 mg $ Given 11/03/2018 12:12 PM CDT 150 mg nicotine (NICODERM CQ) patch 21 mg 21 mg, Administer over 24 Hours, DAILY, 365 doses, First dose on Wed11/03/18 at 0900, Last dose on Wed11/02/19 at 0900, Remove old patch before applying new patch. This patch may contain metal and is not compatible with MRI. Notify radiology of patch location upon arrival to MRI. . WASTE DISPOSAL INSTRUCTIONS: P-Listed item. Special Disposal Required. . vitamin with iron tablet 1 tablet 1 tablet, Oral, DAILY, 365 doses, First dose on Wed11/03/18 at 0900, Last dose on Wed11/02/19 at 0900 $ Given 11/05/2018 9:04 AM CDT 1 tablet $ Given 11/04/2018 10:02 AM CDT 1 tablet $ Given 11/03/2018 12:12 PM CDT 1 tablet documented in this encounter Active and Recently Administered Medications Times are shown in CDT. Scheduled Medication Order 11/03/2018 11/04/2018 11/05/2018 0.9% NaCl injection 3 mL(Linked Group 1) 3 mL, Intracatheter, EVERY 8 HOURS, 1095 doses, First dose on Wed11/03/18 at 0615, Last dose on Wed11/02/19 at 2200, Flush peripheral IV catheter with 3 mL of normal saline every 8 hours. 0674 ($ Given - Provider: Brittany Jeffery RN)1607 ($ Given - Provider: Nita Mosqueda RN)2024 ($ Given - Provider: Brittany Jeffery, FLEX) 0640 ($ Given - Provider: Brittany Jeffery, FLEX)1747 ($ Given - Provider: Lara Joaquin RN)2000 ($ Given - Provider: Brittany Jeffery, FLEX) 0552 ($ Given - Provider: Brittany Jeffery, FLEX) docusate sodium (COLACE) capsule 100 mg 100 mg, Oral, 2 TIMES DAILY, 730 doses, First dose on Morenita 11/03/18 at 0900, Last dose on Morenita 11/02/19 at 2100 1212 (Not Administered - Provider: Nita Mosqueda RN - Reason: Refused-Patient)1858 ($ Given - Provider: Nita Mosqueda RN)2042 (Not Administered - Provider: Brittany Jeffery RN - Reason: See Comments - Comment: given early for pt request) 1002 ($ Given - Provider: Ginger Acosta RN)2001 ($ Given - Provider: Brittany Jeffery RN) 0904 ($ Given - Provider: Candis Navarrete RN) iron polysaccharides (NIFEREX 150) capsule 150 mg 150 mg, Oral, DAILY, 365 doses, First dose on Morenita 11/03/18 at 0900, Last dose on Morenita 11/02/19 at 0900 1212 ($ Given - Provider: Nita Mosqueda RN) 1002 ($ Given - Provider: Ginger Acosta, FLEX) 0904 ($ Given - Provider: Candis Navarrete RN) nicotine (NICODERM CQ) patch 21 mg 21 mg, Administer over 24 Hours, DAILY, 365 doses, First dose on Morenita 11/03/18 at 0900, Last dose on Morenita 11/02/19 at 0900, Remove old patch before applying new patch. This patch may contain metal and is not compatible with MRI. Notify radiology of patch location upon arrival to MRI. . WASTE DISPOSAL INSTRUCTIONS: P-Listed item. Special Disposal Required. . 1212 (Not Administered - Provider: Nita Mosqueda RN - Reason: Refused-Patient) 1000 (Not Administered - Provider: Ginger Acosta RN - Reason: Refused-Patient) 0908 (Not Administered - Provider: Candis Navarrete, RN - Reason: Refused-Patient) vitamin with iron tablet 1 tablet 1 tablet, Oral, DAILY, 365 doses, First dose on Morenita 11/03/18 at 0900, Last dose on Morenita 11/02/19 at 0900 1212 ($ Given - Provider: Nita Mosqueda, RN) 1002 ($ Given - Provider: Ginger Acosta, FLEX) 0904 ($ Given - Provider: Candis Navarrete RN) PRN Medication Order 11/03/2018 11/04/2018 11/05/2018 0.9% NaCl injection 1-10 mL(Linked Group 1) 1-10 mL, Intracatheter, PRN, Other, peripheral line flush, Starting on Morenita 11/03/18 at 0606, Until 11/05/18 at 1357, Flush peripheral IV catheter with 1-10 mL of normal saline before and after medications and prn to clear blood from the line or to verify patency. acetaminophen (TYLENOL) tablet 650 mg 650 mg, Oral, EVERY 6 HOURS PRN, Mild Pain, Starting on Morenita 11/03/18 at 0606, Until 11/05/18 at 1357 1603 ($ Given - Provider: Nita Mosqueda RN) 0906 ($ Given - Provider: Candis Navarrete RN) hblsobjp-ivnxtijrw-qigfbbnpq ne (MAALOX;MYLANTA) suspension 20 mL 20 mL, Oral, EVERY 6 HOURS PRN, GI Upset, Starting on Morenita 11/03/18 at 0606, Until 11/05/18 at 1357, Shake well before using. ondansetron (disintegrating) (ZOFRAN ODT) tablet 4 mg 4 mg, Oral, EVERY 6 HOURS PRN, Nausea/Vomiting, Starting on Morenita 11/03/18 at 0606, Until 11/05/18 at 1357, Allow tablet to dissolve on the tongue polyethylene glycol 3350 (MIRALAX) packet 17 g 17 g, Oral, DAILY PRN, Constipation, Starting on Morenita 11/03/18 at 0606, Until 11/05/18 at 1357, Mix in 8 ounces of water, juice, soda, coffee or tea prior to administration simethicone (MYLICON) chew tablet 160 mg 160 mg, Oral, QID PRN (after meals and at bedtime), Gas Pain, Starting on Morenita 11/03/18 at 0606, Until 11/05/18 at 1357 Linked Groups Order Group 1: SALINE LOCK, INSERT AND MAINTAIN (CANCELED) Routine, CONTINUOUS, Starting on Morenita 11/03/18 at 0615, Until Specified, New collection And 0.9% NaCl injection 3 mLJump to med 3 mL, Intracatheter, EVERY 8 HOURS, 1095 doses, First dose on Morenita 11/03/18 at 0615, Last dose on Morenita 11/02/19 at 2200, Flush peripheral IV catheter with 3 mL of normal saline every 8 hours. And 0.9% NaCl injection 1-10 mLJump to med 1-10 mL, Intracatheter, PRN, Other, peripheral line flush, Starting on Morenita 11/03/18 at 0606, Until 11/05/18 at 1357, Flush peripheral IV catheter with 1-10 mL of normal saline before and after medications and prn to clear blood from the line or to verify patency. documented in this encounter Care Teams Security Tester Relationship Specialty Start Date End Date Gala Singh MD [address] [id number] PCP - General 08/02/18 documented as of this encounter
--- OUTSIDE RECORDS SUMMARY | 2024-04-27 18:02 | XMS_ITS | Encounter Summary ---
Author Organization [facility] Address [address] [place] [address] Care Team Providers Care Office Rn Name Role Phone Unavailable Primary Care Provider Unavailabl e Reason for Visit * Reason Onset Date Comments Follow-up 04/04/2017 Encounter Details Date Type Department Care Team (Late st Contact Info) Description 04/04/2017 Telephone [facility] [address] [phone] [facility] Follow-up Social History Tobacco Use Types Packs/Day [...]
--- OUTSIDE RECORDS SUMMARY | 2024-04-27 18:02 | XMS_ITS | Encounter Summary ---
Author Organization [facility] Address [address] [place] [address] [place] [address] Care Team Providers Care Energy Trader Name Role Phone Gala Singh MD Primary Care Provider [phone] Reason for Visit * Reason Onset Date Comments Vaginal Bleeding 11/25/2018 Encounter Details Date Type Department Care Team (Late st Contact Info) Description 11/25/2018 Telephone [facility] PHYS OB [address] [place] [address] Cheryl Tello MD [address] [place] [address] [place] [address] Vaginal Bleeding Social History Tobacco Use Types Packs/Day Years [...] encounter Miscellaneous Notes * Telephone Encounter - Cheryl Tello MD - 11/25/2018 4:26 AM CDT Called by Ms. Mathews in regards to an episode of vaginal bleeding. She states that she woke up after passing a thick clot that was half the size of her palm. She denies any bleeding afterwards. She has good movement and denies contractions. She has a known complete posterior previa, and thisis her 3rd bleed this . She is currently 32w2d. I strongly recommended that she come to [facility] to be evaluated. She agreed to come for evaluation, as she understands that previas can bleed very quickly and put her life and her baby's life in danger. Cheryl Tello MD 11/25/2018 4:31 AM documented in this encounter Plan of Treatment Not on file documented as of this encounter Visit Diagnoses Not on filedocumented in this encounter Care Teams Energy Trader Relationship Specialty Start Date End Date Gala Singh MD [address] [id number] PCP - General 08/02/18 documented as of this encounter
--- OUTSIDE RECORDS SUMMARY | 2024-04-27 18:02 | XMS_ITS | Encounter Summary ---
Author Organization [facility] Address [address] [place] [id number] Care Team Providers Care Legal Aide Name Role Phone Gala Singh MD Primary Care Provider [phone] Reason for Visit * Reason Comments Ultrasound Encounter Details Date Type Department Care Team (Late st Contact Info) Description 08/30/2018 8:42 AM CDT - 08/30/2018 8:43 AM CDT Hospital Encounter [facility] MATERNAL/ EVALUATION UNIT [facility] [address] [place] [address] Lynda Valerio MD [address] [facility] [address] [place] [address] Essence Chan MD [address] [place] [address] Discharge Disposition: Home or Self Care Social [...] 08/01/2018 09/26/2018 documented as of this encounter Plan of Treatment Not on file documented as of this encounter Procedures Procedure Name Priority Date/Time Associated Diagnosis Comments SONOGRAM - COMPLETE Routine 08/30/2018 9 :02 AM CDT documented in this encounter Results * SONOGRAM - COMPLETE (08/30/2018 9:02 AM CDT) Anatomical Region Laterality Modality Other 08/30/2018 9:02 AM CDT Narrative 08/30/2018 10:14 AM CDT ?[facility] ? - [place] [facility] ?PHONE: ??FAX: Pat. Name: ?CAIT AJ. No: ?[id number] Study Date: ?? 08/30/2018 ??9:02am , Age: ? 1995, 22 Pregnancies: ?? 2, Para 1 Height: ? 60 in Weight: ? 180 lb LMP: ?Unknown GA by Base: ?? 19w6d ?? ULISES: 01/18/2019 GA by US: ? 19w3d ?? ULISES: 01/21/2019 GA Selected: ??19w6d (From [facility]) ULISES: ?01/18/2019 Referring MD: MD Hunter, [facility] Hot Dog Vender: ??Stefano Barba, RDMS CPT4: ? 98221,[address] BMI: ?35.15 Hist/Ind: ? Anatomic Survey ?Tobacco use ?Delivery at 34 wk (severe pre-eclampsia, malpresentation, IUGR) ?Obesity ?Placenta previa MEASUREMENTS & AGE ? GROWTH EVALUATION Measurement ??GA ? Range ? Srce %for GA Ratios ----- ---- ------- BPD ??4.2 cm 18w5d (93w3t-25v5h) Hadl BPD 9% FL/BPD 0.77 HC ??16.2 cm 19w0d (04k2q-49y9z) Hadl HC ??7% FL/AC ??0.21 AC ??15.8 cm 20w6d (91e7e-95l2b) Hadl AC ??76% HC/AC ??1.03 (1.06 - 1.25* FL ?? 3.3 cm 20w1d (89e3w-11g2q) Hadl FL ??51% CI ? 0.71 (0.70 - 0.86) Cere 1.9 cm 18w5d (46v7l-03j2d) Hill Cere19% GA for sonogram 19w3d (86w9y-07d5o) ?? Weight Estimate: based on (BPD,HC,AC,FL) Hadlock ?Weight: 346 gm (296-397gm) Hadloc ? : 0lbs, 12oz ? Normal: 325 gm (244-407gm) Hadloc ? Wt% ? 70% for 19w6d Cervix: ??Length: 4.8 cm ??Approach: transvaginal ??Funneling: not present Heart Rate: 164 bpm Amniotic Fluid Index: 03.5cm (Deepest Pocket) EVAL, PLACENTA Presentation: cephalic Umbilical Cord: 3 Vessels Placenta: anterior:posterior Previa: previa Heart Rate: 164 bpm Gender: female Amniotic Fluid Volume: normal Anatomy!Normal!Abnormal!Suboptimal!Prev. Seen!Comments Cranium ?! ?? x ??! ?! ?! ?! Mdl (CSP/Thal! ?? x ??! ?! ?! ?! Ventricles ?? ! ?? x ??! ?! ?! ?! Choroid Plexu! ?? x ??! ?! ?! ? x ?! Cerebellum ?? ! ?? x ??! ?! ?! ?! Cisterna M. ??! ?? x ??! ?! ?! ?! Nuchal Fold ??! ?? x ??! ?! ?! ?! Profile ?! ?? x ??! ?! ?! ?! Nasal Bone ?? ! ?? x ??! ?! ?! ?! Lip ?! ?? x ??! ?! ?! ?! Spine ?! ?? x ??! ?! ?! ?! Lungs ?! ?? x ??! ?! ?! ?! 4 Chamber Hea! ?? x ??! ?! ?! ?! LVOT ? ! ?? x ??! ?! ?! ?! RVOT ? ! ?? x ??! ?! ?! ?! 3 Vessel View! ?? x ??! ?! ?! ?! Cross-over ?? ! ?? x ??! ?! ?! ?! Ductal Arch ??! ?? x ??! ?! ?! ?! Aortic Arch ??! ?? x ??! ?! ?! ?! Caval View ?? ! ?? x ??! ?! ?! ?! Situs ?! ?? x ??! ?! ?! ?! Diaphragm ?! ?? x ??! ?! ?! ?! Stomach ?! ?? x ??! ?! ?! ? x ?! Bowel ?! ?? x ??! ?! ?! ? x ?! Kidneys ?! ?? x ??! ?! ?! ? x ?! Bladder ?! ?? x ??! ?! ?! ? x ?! 3 Vessel Cord! ?? x ??! ?! ?! ? x ?! Cord In! ?? x ??! ?! ?! ?! Upper Extremi! ?? x ??! ?! ?! ?! Hands ?! ?! ?! ? x ?! ?! Lower Extreme! ?? x ??! ?! ?! ?! Feet ? ! ?! ?! ? x ?! ?! External Deena! ?! ?! ?! ?!Female CLINICAL SUMMARY Study Number: 2 ?? A single fetus is identified in cephalic presentation. ??The measurements today are consistent with appropriate size for the ULISES provided. ??The ULISES selected is based on a prior ultrasound examination. ??The amniotic fluid volume is normal. ??The placenta is anterior,posterior. ??Visualization of the anatomy is limited by maternal habitus and poor acoustic properties. ??No major malformations are seen today, within the limitations of ultrasound examination. ??The patient was advised that ultrasound does not allow detection of all structural or chromosomal abnormalities. ?? IMPRESSION: 1. Single, live, IUP at 19w6d 2. Appropriate size and interval growth 3. Incomplete anatomy survey, no major malformations seen today 4. Placenta previa (posterior) 5. Reassuring transvaginal cervical length RECOMMEND: Follow up ultrasound in 4 weeks to complete the anatomy survey, reassess the placenta. ??Pelvic rest and bleeding precautions were advised. Thank you for allowing us the opportunity to care for your patient. Essence Chan MD <Electronic Signature> ??08/30/2018 10:11am Lynda Valerio MD [facility] ORDERABLES documented in this encounter Visit Diagnoses Not on filedocumented in this encounter Care Teams Legal Aide Relationship Specialty Start Date End Date Gala Singh MD [address] [phone] PCP - General 08/02/18 documented as of this encounter
--- OUTSIDE RECORDS SUMMARY | 2024-04-27 18:02 | XMS_ITS | Encounter Summary ---
Author Organization [facility] Address [address] [place], [place] [address] [address] Care Team Providers Care Qualified Craft Worker Electrician Name Role Phone Gala Singh MD Primary Care Provider [phone] Reason for Visit * Reason Comments Routine Visit Encounter Details Date Type Department Care Team (Latest Contact Info) Description 11/09/2018 2:26 PM CDT - 11/09/2018 11:59 PM CDT Hospital Encounter [facility] MATERNAL/ EVALUATION UNIT [address] [facility] [place] [address] Sari Garibay MD [address] [place] [place] [phone] Discharge Disposition: Home or Self Care Social [...] Sign Reading Time Taken Comments Blood Pressure 117/80 11/09/2018 3:27 PM CDT Pulse 85 11/09/2018 3:27 PM CDT Temperature - - Respiratory Rate - - Oxygen Saturation - - Inhaled Oxygen Concentration - - Weight 92.1 kg (203 lb) 11/09/2018 3:27 PM CDT Height - - Body Mass Index 39.65 11/03/2018 4:09 AM CDT documented in this [...] as of this encounter Progress Notes * Sari Garibay MD - 11/09/2018 4:17 PM CDT MFM Fellow [facility] Return Visit 11/09/2018 S: Cait Mathews is a 23 year old @ 30w0d Today she notes no complaints. She denies any vaginal bleeding or contractions. She was recently admitted 11/03-11/05 for an episode of vaginal bleeding where she passed a softball sized blood clot andsubsequently had pink discharge. Denies CTX, LOF, VB; +FM Her is c/b: Patient Active Problem List: [...] second trimester Vaginal bleeding during , antepartum O: Vitals: 11/09/18 1527 BP: 117/80 Pulse: 85 Weight: 203 lb (92.1 kg) FH 30 cm FHT 144 Recent Labs Component Name 10/27/18 1003 PROTEINUA Negative GLUCOSEUA Negative KETONEUA Trace* A/P: Cait Mathews is a 23 year old at 30w0d Supervision of KATLIN from Dr. Guadarrama for TOLAC, however currently has posterior placenta previa, next US 32 weeks Datinw6d US PNL: B+/I/-/-, NR Hgb Elec: Normal Hgb: 11.8 UDS/UA: Negative CF: Negative Pap: Done 1 year ago and denies any abnormal paps, records requested Gc/Chl: Negative NIPT LR female Declined flu shot GCT 147 (see below) TDap complete GBS at 36 weeks Desires BTL- medicaid/ethics forms submitted last visit, result not returned yet ? Complete Posterior Previa Admitted for vaginal bleeding and ANCS 09/25- and was readmitted 11/03-11/05 after passing a softball sized blood clot. Continue pelvic rest, reviewed bleeding precautions. Understands to return if any change at all. Last formal sono 10/17: EFW 1024g (52%ile), AC 76%ile, posterior previa still noted Plan: light work duty, serial sono to assess placentation (32 wks) ? H/o LTCSx1 G1 in 2013 at 34 wks for Pre-E and breech presentation, documented LTCS Transferred to [facility] d/t patient desiring TOLAC, however, contraindicated at this time d/t complete previa ? Abnormal GCT- 147- GTT 10/06/18 WNL (97/167/121/138) ? History of pre-eclampsia In G1, s/p delivery at 34 weeks for PEC and breech presentation 24 hr urine completed with Dr. Guadarrama - 142 mg on 06/02 s/p ASA ? Tobacco use Smoking 4-5??cigarettes per day, cut down from 10-15 per day ? Asthma Hasn't used Inhaler in years RTC in 2 week(s) D/W Dr Ayush Garibay MD 11/09/2018 4:17 PM Associated attestation - Candace Peacock MD - 11/14/2018 10:04 PM CDT MFM Attending Note I saw the patient and reviewed history and physical exam with Dr. Garibay at the time of the visit. Patient presents with a diagnosis of: Patient Active Problem List Diagnosis Date Noted ??? Vaginal bleeding during , antepartum 11/03/2018 Priority: Not Prioritized ??? Abnormal O'Cartwright glucose challenge test, antepartum 09/27/2018 Priority: Not Prioritized Needs GTT ??? Vaginal bleeding in , second trimester [...] high risk , antepartum 11/09/2013 Patient is 30w0d Exam and assessment show: BP 117/80 Pulse 85 Wt 203 lb (92.1 kg) BMI 39.65 kg/m2 Trace ketones in urine I agree with diagnosis as documented in the resident/fellow note. I have added the following diagnoses: None Documented plan of care is appropriate and I agree with the following revisions: None Candace Peacock MD documented in this encounter Plan of Treatment Not on file documented as of this encounter Visit Diagnoses Diagnosis Abnormal O'Cartwright glucose challenge test, antepartum (HCC) Abnormal maternal glucose tolerance, antepartum documented in this encounter Care Teams Qualified Craft Worker Electrician Relationship Specialty Start Date End Date Gala Singh MD [address] [place] [address] [place] [phone] PCP - General 08/02/18 documented as of this encounter
--- OUTSIDE RECORDS SUMMARY | 2024-04-27 18:02 | XMS_ITS | Encounter Summary ---
Author Organization [facility] Address [address] [place] [address] Care Team Providers Care Rubber Gasket Inspector Trimmer Name Role Phone Unavailable Primary Care Provider Unavailabl e Reason for Visit * Reason Onset Date Comments Follow-up 01/16/2017 Encounter Details Date Type Department Care Team (Late st Contact Info) Description 01/16/2017 Telephone [facility] [address] [phone] Provider, Dahlia Exp [facility] Follow-up Social History Tobacco Use Types Packs/Day [...]
--- OUTSIDE RECORDS SUMMARY | 2024-04-27 18:03 | XMS_ITS | Encounter Summary ---
Author Organization [facility] Care Team Providers Care Food Tray Assembler Name Role Phone Brayan Nazario MD Unavailable Apolinar Crowley MD Primary Care Provider [phone] Encounter Details Date Type Department Care Team (Latest Contact Info) Description 12/28/2022 Travel Social History Tobacco Use Types Packs/Day Years Used Date Smoking Tobacco: Former Cigarettes 0.5 8 2 012 - 2020 Smokeless Tobacco: Never Alcohol Use Standard Drinks/Week Comments Yes 0 (1 standard drink = 0.6 oz pur e alcohol) occasionally Sexually Active Control Partners Comments Yes Surgical Male Comments No Sex and Gender Information Value Date Recorded Sex Assigned at Not on file Legal Sex Female 11:35 PM CDT Gender Identity Not on file Sexual Orientation Not on file COVID-19 Exposure Response Date Recorded In the last 10 days, have yo u been in contact with someone who was confirmed or suspected to have Coronavirus/COVID-19? No / Unsure 12/28/2022 5:34 PM CDT documented as of this encounter Plan of Treatment Not on file documented as of this encounter Visit Diagnoses Not on filedocumented in this encounter Care Teams Food Tray Assembler Relationship Specialty Start Date End Date Apolinar Crowley MD [address] [place] [address] [place] [address] PCP - General Explosive Ordnance Disposal Manager 11/06/22 Brayan Nazario MD [address] [phone] Consulting Physician General Surgery 01/15/22 documented as of this encounter
--- OUTSIDE RECORDS SUMMARY | 2024-04-27 18:03 | XMS_ITS | Encounter Summary ---
Author Organization [facility] Address [address] [place] [address] [place] [address] Care Team Providers Care Bottom Finisher Name Role Phone Unavailable Primary Care Provider Unavailabl e Reason for Visit * Reason Comments Blood Pressure * Auth/Cert - Closed Specialty Diagnoses / Procedures Referred By Contac t Referred To Contact Obstetrics and Gynecology [facility] 5e Ante/Mom Baby [address] [place] [id number] Referral ID Status Reason Start Date Expiration Date Visits Re quested Visits Authorized [id number] Closed 11/09/2013 05/08/2014 1 Encounter Details Date Type Department Care Team (Latest Contact Info) Description 11/08/2013 8:17 PM CDT - 11/21/2013 7:21 PM CDT Hospital Encounter [facility] 5E ANTEPARTUM/MOTHER BABY [address] [place] [id number] Viet Marquez MD [address] [place] [address] Obstetrics Discharge Disposition: Home or Self Care [...] Sign Reading Time Taken Comments Blood Pressure 146/92 11/21/2013 4:14 PM CDT Pulse 94 11/21/2013 4:14 PM CDT Temperature 36.9 ??C (98.4 ??F) 11/21/2013 4:14 PM CD T Respiratory Rate 16 11/21/2013 4:14 PM CDT Oxygen Saturation 100% 11/21/2013 4:14 PM CDT Inhaled Oxygen Concentration - - Weight 87.4 kg (192 lb 12 oz) 11/19/2013 7:20 AM CDT Height 152.4 cm (5') 11/08/2013 8:32 PM CDT Body Mass Index 37.64 11/08/2013 8:32 PM CDT documented in this encounter Functional [...] No 11/08/2013 documented as of this encounter Discharge Summaries * Lianne Chu MD - 12/06/2013 8:59 AM CDT travel med surg rn Discharge Summary 12/06/2013, 8:59 AM Date of Admission: 11/08/2013 Date of Discharge: 11/21/2013 Admission Diagnosis: 18 y.o. at 34weeks gestation with pre-eclampsia Discharge Diagnosis: s/p Section Service: Maternal Medicine Consults: none HPI: Cait Mathews is a 18 y.o. at 34weeks was admitted with Estimated Date of Delivery: 12/29/13. Her Care was with Michael Larson . She presented for elevated protein in her urine as found at her doctors office and presented for evaluation. was complicated by: Patient Active Problem List Diagnosis Date Noted ??? IUGR (intrauterine growth restriction) 11/15/2013 ??? Tobacco abuse 11/09/2013 ??? Preeclampsia 11/09/2013 ??? Breech presentation 11/09/2013 ??? Supervision of high-risk 11/09/2013 Hospital Course: The pt was evaluated in [facility] where she was found to have pre-eclampsia with breech presentation. Shewas then admitted to [facility] where she was monitored and given Betamethasone and Magnesium. Blood pressure was difficult to monitor on [facility] despite Adalat 60/30 and repeat Mag so the pt was scheduled for a C/section 2/2 breech and severe preeclampsia. Delivery: For full details of delivery, please refer to operative note or delivery summary. Delivery Type: Section Estimated Blood Loss: Anesthesia/Analgesia: Information for the patient's : Veto Mathews [[id number]] Date of 11/17/2013 Time of : 3:48 PM Sex: Female Weight: 1790 g (3 lb 15.1 oz) (1 min): 5 (5 min): 8 (10 min): Course: Her course was uncomplicated except for UTI requiring macrobid. Patient is bottle feeding. She desires Depo for contraception. Results: No results found for this basename: ABORH, in the last [id number] hours Recent Labs Component Name 11/18/13 0539 11/17/13 0546 11/15/13 0806 WBC 15.7* 13.4* 15.6* HGB 12.7 13.2 13.3 HCT 38.2 39.5 38.2 PLTCOUNT 230 263 266 Discharge Vitals: BP 146/92 Pulse 94 Temp(Src) 98.4 ??F Resp 16 Wt 192 lb 12 oz (87.431 kg) BMI 37.64 kg/m2 Discharge Diagnosis: Pre-term delivery. Dispostion: Home on day # 4. Followup: with Dr. Rodriguez in 1 week for Bp check . Continue these medications at home: Discharge Medication List As of 11/22/2013 12:42 PM START taking these medications Instructions Authorizing Provider DSS 100 MG Caps Take 100 mg by mouth 2 times daily. Lianne Chu ibuprofen 600 MG tablet Commonly known as: MOTRIN Take 1 Tab by mouth every 6 hours. Lianne Chu * NIFEdipine CR 24hr 30 MG tablet Commonly known as: ADALAT CC Take 1 Tab by mouth at bedtime. Take on an empty stomach. Lianne Chu * NIFEdipine CR 24hr 60 MG tablet Commonly known as: ADALAT CC Take 1 Tab by mouth daily before breakfast. Take on an empty stomach. Lianne Chu nitrofurantoin monohyd macro crystals 100 MG capsule Commonly known as: MACROBID Take 1 Cap by mouth 2 times daily with morning and evening meal for 3 days. Lianne Chu oxyCODONE-acetaminophen 5-325 MG tablet Commonly known as: PERCOCET Take 1-2 Tabs by mouth every 4 hours as needed. Lianne Chu * Notice: This list has 2 medication(s) that are the same as other medications prescribed for you. Read the directions carefully, and ask your doctor or other care provider to review them with you. CONTINUE taking these medications Instructions Authorizing Provider vitamin 28-0.8 MG tablet Take 1 Tab by mouth once daily. Discharge Instructions: Follow up with your Ob Dr. Rodriguez in 1 week for a BP check Discharge Procedure Orders Why you were hospitalized Order Specific Question Answer Comments Your discharge diagnosis is delivery delivered [178053] No special diet needed Resume your normal home diet as tolerated. Eat well-balanced meals that include foods from all of the food groups. Nothing per vagina [address] 2weeks Shower and bathing instructions May shower now May bathe 2 weeks Follow up with provider Order Specific Question Answer Comments Follow Up Instructions: In one week for follow up Why you were hospitalized Order Specific Question Answer Comments Your discharge diagnosis is delivery delivered [684352] No special diet needed Resume your normal home diet as tolerated. Eat well-balanced meals that include foods from all of the food groups. Nothing per vagina [address]weeks Do [address] 2weeks Follow up with provider Order Specific Question Answer Comments Follow Up Instructions: in 1 week for PP visit Lianne Chu MD 12/06/2013 8:59 AM documented in this encounter Discharge Instructions * Discharge Instructions* Hope Mccoy RN - 11/21/2013 5:34 PM CDT DELIVERED MOTHER DISCHARGE INSTRUCTIONS Refer to Care for Mother Booklet for more information. Please contact your baling press operator for the following (page 4): 1. Any burning or itching when urinating. 2. Any significant increase or change in color or odor of vaginal discharge. 3. Any increased vaginal bleeding that may contain clots. 4. Temperature greater than 100.4 degrees. 5. Any significant increase in pain, tenderness, or redness in incision. 6. Any pus draining from incision. 7. Any pus or blood draining from nipples. Remember to collect all your belongings kept at the bedside, for example: your cell phone and cell phone tuberculosis specialist. PLEASE REMEMBER: 1) Always place your infant on his/her back to sleep. 2) Always use a car seat when transporting your child. documented in this encounter Medications at Time of Discharge Medication Sig Dispensed Refills Start Date End Date docusate sodium 100 MG CAPS Take 100 mg by mouth 2 times daily. 60 Cap 1 11/20/2013 10/14/2016 ibuprofen (MOTRIN) 600 MG tablet Take 1 Tab by mouth every 6 hours. 60 Tab 1 11/20/2013 10/14/2016 NIFEdipine CR 24hr (ADALAT CC) 30 MG tablet Take 1 Tab by mouth at bedtime. Take on an empty stomach. 30 Tab 0 11/20/2013 10/14/2016 NIFEdipine CR 24hr (ADALAT CC) 60 MG tablet Take 1 Tab by mouth daily before breakfast. Take on an empty stomach. 30 Tab 0 11/20/2013 10/14/2016 nitrofurantoin monohyd macro crystals (MACROBID) 100 MG capsule Take 1 Cap by mouth 2 times daily with morning and evening meal for 3 days. 7 Cap 0 11/20/2013 11/23/2013 oxyCODONE-acetaminophen (PERCOCET) 5-325 MG tablet Take 1-2 Tabs by mouth every 4 hours as needed. 20 Tab 0 11/20/2013 10/14/2016 Vit-Fe Fumarate-FA ( VITAMIN) 28-0.8 MG tablet Take 1 Tab by mouth once daily. 10/14/2016 documented as of this encounter Progress Notes * Hope Mccoy, RN - 11/21/2013 6:58 PM CDT Discharge note: Discharge instructions and prescriptions reviewed with pt. All questions answered. Pt instructed on s/s to return to hospital including bleeding, increased pain, headaches, or blurry vision. States okay'. Pt discharged to home per wheelchair with FOB. * Cordell Bauer RN - 11/21/2013 6:28 AM CDT Shift summary Pt slept well this shift. Ambulated to NICU several times to see baby. Declined assistance to pump.Reports good pain relief from alternating IBU/Percocet. LTV incision intact. Discharge planned for today. * Filiberto Ray MD - 11/21/2013 6:28 AM CDT R1 OB Post- Note Subjective: No acute events overnight. Patient is doing well. Pain controlled. Lochia is small amount. She reports flatus passed, taking full diet without nausea or vomiting. She denies headache, fever, chest pain, shortness of breath, and leg pain. She has ambulated and denies lightheadedness. patient is voiding without difficulty. She is breast feeding. Objective: Temp (36hrs) Max:98.4 ??F Vitals: 11/20/13 1700 11/20/13 2020 11/21/13 0005 11/21/13 0550 BP: 134/83 150/88 138/86 122/84 Pulse: 95 93 98 101 Temp: 98.1 ??F 97.9 ??F 98.4 ??F Resp: 18 18 20 18 Weight: SpO2: Intake/Output Summary (Last 24 hours) at 11/21/13 0628 Last data filed at 11/21/13 0554 Gross per 24 hour Intake 2230 ml Output 3800 ml Net -1570 ml No data found. PE: General: alert, cooperative in no acute distress Lungs: Clear to auscultation bilaterally Heart: regular rate and rhythm Abdomen: Soft/ appropriately tender; fundus firm 3 belowumbilicus Incision: clean/dry/intact Extremities: no calf tenderness Data: Recent Labs Component Name 11/18/13 0539 11/17/13 0546 11/15/13 0806 WBC 15.7* 13.4* 15.6* HGB 12.7 13.2 13.3 HCT 38.2 39.5 38.2 PLTCOUNT 230 263 266 Assessment/Plan: 18 y.o. , s/p without labor, PPD# 4 1. PPD 4 C/s- stable overnight. Routine care 2. Pre-Eclampsia- Bp range overnight 120/82-150/88 (elevated numbers after ambulating to NICU) 1. S/p Mag 2. Will continue Adalat 60mg AM and 60mg PM. 3. UTI- Continue Macrobid treatment till 11/23/13 4. AFVSS 5. : voiding spontaneously 6. GI: yessy regular diet 7. Br/Koffi/Contraception: The patient is breast feeding and desires Depo or Pills for contraception from [facility]. 8. Hematologic- Asymptomatic anemia, cont iron supplementation 9. B+/I/-/-. HIV NR 10. Baby girl doing well in NICU. 11. Anticipate discharge today Lianne Chu MD 11/21/2013 6:28 AM MFM note The patient was seen and assessed. Dec lochia Patient Vitals for the past 24 hrs: Temp Pulse Resp BP 11/21/13 1300 - 100 16 138/60 mmHg 11/21/13 0820 98.1 ??F 113 16 149/92 mmHg 11/21/13 0550 98.4 ??F 101 18 122/84 mmHg 11/21/13 0005 - 98 20 138/86 mmHg 11/20/13 2020 97.9 ??F 93 18 150/88 mmHg 11/20/13 1700 98.1 ??F 95 18 134/83 mmHg 11/20/13 1310 - 84 18 124/78 mmHg Temp (30hrs) Max:98.4 ??F Agree with resident note. Pt convalescing and CPM. Filiberto Ray MD. * Cordell Bauer RN - 11/21/2013 1:45 AM CDT Problem: Goal: 8 Point Check will be within normal limits 8 point check includes: 1. Breasts - soft with nipple integrity intact 2. Fundus - firm at midline 3. Bleeding - moderate rubra without clots 4. Perineum - intact without discharge or hematoma 5. Bladder - urine output is 30 ml/hour or more while chapin catheter in place; patient able to void/empty bladder after catheter is removed 6. Homans 7. Bowel sounds 8. Emotions (blues) Outcome: Ongoing Cait is ambulating to NICU frequently. Encourage IS use & frequent pumping of breasts. Goal: Patient will return to baseline GI status As evidenced by: a) Tolerating preoperative diet without nausea or vomiting b) Passing flatus without difficulty c) Free from signs & symptoms of post-operative ileus formation Outcome: Ongoing Cait is tolerating a regular diet with ease. + flatus, no BM yet. Goal: Tolerates diet Outcome: Ongoing Goal: Incision site is free of redness, swelling and/or warmth and is well approximated Outcome: Ongoing Incision has no s/s of infection. Problem: Potential for Infection Goal: Signs and symptoms of infections are decreased or avoided Outcome: Ongoing Problem: Incision Care Goal: Incision remains intact with edges well approximated Outcome: Ongoing Goal: Incision is free of infection. Outcome: Ongoing Problem: Emotional Well-Being Goal: Verbalizes coping strategies Outcome: Goal Met Date Met: 11/21/13 Goal: Patient/Support person will have all essential information communicated in language they can understand Outcome: Ongoing Goal: Care delivered is culturally relevant Outcome: Goal Met Date Met: 11/21/13 Goal: Parent- bonding occurs As evidenced by: a) eye contact b) holding baby close c) frequently touching d) talking to e) If : i. mother expresses confidence in ability to breastfeed ii. mother demonstrates ability to breastfeed independently Outcome: Variance - See Flowsheet Documentation Cait encouraged to visit NICU frequently. * July Maravilla RN - 11/20/2013 6:33 PM CDT Pt is recovering well. Vital signs wnl. Pt denies jefferson, visual changes, or epigastric pain. Pt is having adequate pain relief with prn percocet and scheduled motrin. Pt's fundus is firm at u/3 with a scant amount of lochia reported. Pt is pumping and bringing breastmilk to nicu at her visits. Family is at bedside and is supportive. Pt turned in affidavid and certificate today. Pt is still considering pnuemonia vaccine (info given). Pt denies any other questions or concerns at this time. * Filiberto Ray MD - 11/20/2013 6:23 AM CDT R1 OB Post- Note Subjective: No acute events overnight. Patient is doing well. Pain controlled. Lochia is small amount. She reports flatus passed. She denies headache, fever, chest pain, shortness of breath, and leg pain. She has ambulated and denies lightheadedness. Chapin is absent, patient is voiding without difficulty. She is bottle feeding. Objective: Temp (36hrs) Max:98.4 ??F Vitals: 11/19/13 1451 11/19/13 1900 11/19/13 2330 11/20/13 0530 BP: 143/86 124/91 125/83 125/78 Pulse: 80 80 87 87 Temp: 98.4 ??F 98.1 ??F 98.1 ??F 98.3 ??F Resp: 16 16 18 18 Weight: SpO2: Intake/Output Summary (Last 24 hours) at 11/20/13 0623 Last data filed at 11/20/13 0530 Gross per 24 hour Intake 2110 ml Output 3100 ml Net -990 ml No data found. PE: General: alert, cooperative in no acute distress Lungs: Clear to auscultation bilaterally Heart: regular rate and rhythm Abdomen: Soft/ appropriately tender; fundus firm 3 below umbilicus Incision: clean/dry/intact Extremities: no calf tenderness Data: Recent Labs Component Name 11/18/13 0539 11/17/13 0546 11/15/13 0806 WBC 15.7* 13.4* 15.6* HGB 12.7 13.2 13.3 HCT 38.2 39.5 38.2 PLTCOUNT 230 263 266 Assessment/Plan: 18 y.o. , s/p without labor, PPD# 3 1. PPD3-Stable this morning. Routine care 2. Pre-Eclampsia- Bp range of 124/91-145/91 the past 24 hours 1. S/p Mag 2. Continue Adalat 60/30mg 3. UTI/: voiding spontaneously. Macrobid till 11/23/13 4. GI: yessy regular diet 5. Br/Koffi/Contraception: The patient is bottle feeding and is undecided for contraception. 6. Hematologic-12.7 Asymptomatic anemia, cont iron supplementation 7. B+/I/-/-. HIV NR 8. Baby girl doing well in NICU. 9. Anticipate discharge today if pressures remain the same Lianne Chu MD 11/20/2013 6:23 AM MFM note The patient was seen and assessed. Dec lochia Patient Vitals for the past 24 hrs: Temp Pulse Resp BP 11/20/13 1700 98.1 ??F 95 18 134/83 mmHg 11/20/13 1310 - 84 18 124/78 mmHg 11/20/13 0810 97.8 ??F 86 18 120/82 mmHg 11/20/13 0530 98.3 ??F 87 18 125/78 mmHg 11/19/13 2330 98.1 ??F 87 18 125/83 mmHg Temp (30hrs) Max:98.4 ??F Agree with resident note. Pt convalescing and CPM. Filiberto Ray MD. * Hope Valverde RN - 11/20/2013 5:56 AM CDT Pt resting in bed comfortably, arouses easily. VSS. Fundus firm at U-2, small amount of lochia. Pt states pain relief with po pain medications. Family at bedside. No further concerns at this time. Will continue to monitor. * Katlyn Major RN - 11/20/2013 1:30 AM CDT Shift summary: Patient passing flatus, tolerating regular diet, and ambulating in the hallway to NICU to visit . Patient aware to call with any visual changes, abdominal pain, headaches or needs. Report givento straight knife machine cutter RN. * Hope Valverde RN - 11/20/2013 12:28 AM CDT Problem: Goal: 8 Point Check will be within normal limits 8 point check includes: 1. Breasts - soft with nipple integrity intact 2. Fundus - firm at midline 3. Bleeding - moderate rubra without clots 4. Perineum - intact without discharge or hematoma 5. Bladder - urine output is 30 ml/hour or more while chapin catheter in place; patient able to void/empty bladder after catheter is removed 6. Homans 7. Bowel sounds 8. Emotions (blues) Outcome: Ongoing Goal: Patient will return to baseline GI status As evidenced by: a) Tolerating preoperative diet without nausea or vomiting b) Passing flatus without difficulty c) Free from signs & symptoms of post-operative ileus formation Outcome: Ongoing Cait Mathews is tolerating a regular diet. Goal: Tolerates diet Outcome: Ongoing Goal: Incision site is free of redness, swelling and/or warmth and is well approximated Outcome: Ongoing Cait Mathews's incision is clean, dry, and intact. VSS. Problem: Potential for Infection Goal: Signs and symptoms of infections are decreased or avoided Outcome: Ongoing Goal: Infection of urinary catheter avoided. Outcome: Goal Met Date Met: 11/20/13 Problem: Incision Care Goal: Incision remains intact with edges well approximated Outcome: Ongoing Goal: Incision is free of infection. Outcome: Ongoing Problem: Emotional Well-Being Goal: Verbalizes coping strategies Outcome: Ongoing Goal: Patient/Support person will have all essential information communicated in language they can understand Outcome: Ongoing Goal: Care delivered is culturally relevant Outcome: Ongoing Goal: Parent- bonding occurs As evidenced by: a) eye contact b) holding baby close c) frequently touching d) talking to e) If : i. mother expresses confidence in ability to breastfeed ii. mother demonstrates ability to breastfeed independently Outcome: Ongoing Cait Mathews visits baby in the NICU. * Hope Ribeiro RN - 11/19/2013 9:36 AM CDT Problem: Fall Risk Goal: Patient will remain free of falls Outcome: Ongoing Problem: Goal: 8 Point Check will be within normal limits 8 point check includes: 1. Breasts - soft with nipple integrity intact 2. Fundus - firm at midline 3. Bleeding - moderate rubra without clots 4. Perineum - intact without discharge or hematoma 5. Bladder - urine output is 30 ml/hour or more while chapin catheter in place; patient able to void/empty bladder after catheter is removed 6. Homans 7. Bowel sounds 8. Emotions (blues) Outcome: Ongoing Goal: Patient will return to baseline GI status As evidenced by: a) Tolerating preoperative diet without nausea or vomiting b) Passing flatus without difficulty c) Free from signs & symptoms of post-operative ileus formation Outcome: Ongoing Goal: Tolerates diet Outcome: Ongoing Goal: Incision site is free of redness, swelling and/or warmth and is well approximated Outcome: Ongoing Problem: Potential for Infection Goal: Signs and symptoms of infections are decreased or avoided Outcome: Ongoing Goal: Infection of urinary catheter avoided. Outcome: Ongoing Problem: Incision Care Goal: Incision remains intact with edges well approximated Outcome: Ongoing Goal: Incision is free of infection. Outcome: Ongoing Problem: Emotional Well-Being Goal: Verbalizes coping strategies Outcome: Ongoing Goal: Patient/Support person will have all essential information communicated in language they can understand Outcome: Ongoing Goal: Care delivered is culturally relevant Outcome: Ongoing Goal: Parent- bonding occurs As evidenced by: a) eye contact b) holding baby close c) frequently touching d) talking to e) If : i. mother expresses confidence in ability to breastfeed ii. mother demonstrates ability to breastfeed independently Outcome: Ongoing * Filiberto Ray MD - 11/19/2013 9:21 AM CDT R1 OB Post- Note 11/19/2013, 9:22 AM Subjective: Cait Mathews is doing well. Pain is controlled. Lochia is small amount. She reports flatus passed. She denies headache, fever, chest pain, shortness of breath, and leg pain. She has ambulated and denies lightheadedness. Chapin is absent, patient is voiding without difficulty. She is breast feeding. Objective: Temp (36hrs) Max:98.6 ??F Vitals: 11/19/13 0025 11/19/13 0555 11/19/13 0720 11/19/13 0800 BP: 133/84 145/91 138/88 Pulse: 86 89 90 Temp: 97.8 ??F 97.8 ??F Resp: 18 18 18 Weight: 192 lb 12 oz (87.431 kg) SpO2: Intake/Output Summary (Last 24 hours) at 11/19/13 0922 Last data filed at 11/19/13 0557 Gross per 24 hour Intake 1443 ml Output 2750 ml Net -1307 ml No data found. PE: General: alert, cooperative in no acute distress. Lungs: Clear to auscultation bilaterally Heart: regular rate and rhythm Abdomen:BS+/ S/appropriately tender; fundus firm 4cm below umbilicus, Incision: clean/dry/intact Extremities: no calf tenderness Data: Recent Labs Component Name 11/18/13 0539 11/17/13 0546 11/15/13 0806 WBC 15.7* 13.4* 15.6* HGB 12.7 13.2 13.3 HCT 38.2 39.5 38.2 PLTCOUNT 230 263 266 Assessment/Plan: 18 y.o. , s/p without labor, PPD# 2 1. complicated by 1. Pre-eclampsia, malpresentation 1. Mg now d/c'd 2. AFVSS 3. /GI: Urinary output is adequate, tolerating regular diet 4. Br/Koffi/Contraception: The patient is breast feeding is still considering options for contraception. 5. Hematologic-stable, patient asymptomatic. H/H: 13.2-->12.7 6. Rubella imm/RPR NR/ HepB neg, HIV neg 7. Baby girl doing well 9. Dispo: continue routine care Lucian eVlez MD 11/19/2013 9:22 AM M note The patient was seen and assessed. Dec lochia Patient Vitals for the past 24 hrs: Temp Pulse Resp BP 11/19/13 0800 97.8 ??F 90 18 138/88 mmHg 11/19/13 0555 97.8 ??F 89 18 145/91 mmHg 11/19/13 0025 - 86 18 133/84 mmHg 11/18/13 2130 97.7 ??F 98 18 137/86 mmHg 11/18/13 1600 98.3 ??F 94 20 120/64 mmHg 11/18/13 1200 98.3 ??F 88 20 140/84 mmHg Temp (30hrs) Max:98.6 ??F Agree with resident note. Pt convalescing and CPM. Filiberto Ray MD. * Marci Mejia RN - 11/19/2013 6:55 AM CDT Shift Summary: Pt stable throughout the night. Fundus is firm at u-2 and pt reports a small amount of lochia. VSS.Pain controlled with motrin and percocet. Pt ambulating and tolerating fair. Pt informed to notify nurse with any change in condition. * Marci Mejia RN - 11/19/2013 6:55 AM CDT Problem: Fall Risk Goal: Patient will remain free of falls Outcome: Ongoing Problem: Goal: 8 Point Check will be within normal limits 8 point check includes: 1. Breasts - soft with nipple integrity intact 2. Fundus - firm at midline 3. Bleeding - moderate rubra without clots 4. Perineum - intact without discharge or hematoma 5. Bladder - urine output is 30 ml/hour or more while chapin catheter in place; patient able to void/empty bladder after catheter is removed 6. Homans 7. Bowel sounds 8. Emotions (blues) Outcome: Ongoing Pt 8 point check remained within normal limits last night. Pt informed to notify nurse with any change in her condition. Goal: Patient will return to baseline GI status As evidenced by: a) Tolerating preoperative diet without nausea or vomiting b) Passing flatus without difficulty c) Free from signs & symptoms of post-operative ileus formation Outcome: Ongoing Pt tolerating meals without any nausea or vomiting. Goal: Tolerates diet Outcome: Ongoing Goal: Incision site is free of redness, swelling and/or warmth and is well approximated Outcome: Ongoing Incision checked and remains within normal limits Problem: Potential for Infection Goal: Signs and symptoms of infections are decreased or avoided Outcome: Ongoing * Melody Nagel RN - 11/18/2013 7:30 PM CDT Shift note/nursing : Day one post for iugr/pih/breech presentation. Good shift. Pt advanced to a regular diet with flatus passed, chapin to gu out and voiding spontaneously. Mag sulfate stopped at 1600 and bp's improving. Transitioned to oral pain medication. Up with minimal assistance. Reflexes /, mild to moderate edema, no visual field changes, no epigastric pain. Fundus u/2- 3 firm and midline, small lochia rubra, low transverse incision is well approximated with subq sutures. Pumping and nurse saw. Down to scn with FOB to visit with baby. * Filiberto Ray MD - 11/18/2013 8:36 AM CDT R2 OB Post- Note 11/18/2013, 8:36 AM Subjective: Patient doing well Pain controlled. Lochia is small amount. She reports no flatus. She denies headache, fever, chest pain, shortness of breath, and leg pain. Has not ambulated, chapin present She is pumping feeding. Objective: Temp (36hrs) Max:99.2 ??F Vitals: 11/17/13 1825 11/17/13 2045 11/17/13 2345 11/18/13 0145 BP: 138/74 142/96 146/88 138/60 Pulse: 80 91 86 94 Temp: 98.4 ??F 97.9 ??F 98.3 ??F Resp: Weight: SpO2: 97% 99% 98% Intake/Output Summary (Last 24 hours) at 11/18/13 0836 Last data filed at 11/18/13 0545 Gross per 24 hour Intake 5036.8 ml Output 5450 ml Net -413.2 ml No data found. PE: General: alert, cooperative in no acute distress Lungs: Clear to auscultation bilaterally Heart: regular rate and rhythm Abdomen:BS present, Soft, non tender; fundus firm below umbilicus, Incision: clean/dry/intact Extremities: no calf tenderness Data: Recent Labs Component Name 11/18/13 0539 11/17/13 0546 11/15/13 0806 WBC 15.7* 13.4* 15.6* HGB 12.7 13.2 13.3 HCT 38.2 39.5 38.2 PLTCOUNT 230 263 266 No results found for this basename: ABORH, in the last [id number] hours Assessment/Plan: 18 y.o.yo , s/p c/s, PPD# 1 1. Preclampsia 1. Magnesium 24 hours 2. BPs 120-140s/70-90s, asymptomatic 3. Adalet 30in morning/60HS 2. Pain: controlled 3. : OUtput adequate/ GI: yessy clears diet, negative flatus. 4. Br/Koffi/Contraception: The patient is breast feeding human milk and unsure for contraception. 5. Hematologic-heg 12.7 6. B+/Rubella Immune/RPR Nonreactive/Hepatitis B negative/HIV neg 7. Dispo: continue routine care Essence Bauer MD 11/18/2013 8:36 AM MFM note The patient was seen and assessed. Dec lochia Patient Vitals for the past 24 hrs: Temp Pulse Resp BP 11/18/13 1600 98.3 ??F 94 20 120/64 mmHg 11/18/13 1200 98.3 ??F 88 20 140/84 mmHg 11/18/13 0800 98.6 ??F 89 16 141/93 mmHg 11/18/13 0145 - 94 - 138/60 mmHg 11/17/13 2345 98.3 ??F 86 18 146/88 mmHg 11/17/13 2045 97.9 ??F 91 20 142/96 mmHg 11/17/13 1825 98.4 ??F 80 17 138/74 mmHg 11/17/13 1810 - 78 20 123/76 mmHg 11/17/13 1755 - 77 14 129/70 mmHg Temp (30hrs) Max:99.2 ??F Agree with resident note. Pt convalescing and CPM. Filiberto Ray MD. * Tawanna Yoo RN - 11/18/2013 6:35 AM CDT Shift summary: Currently asleep in bed with boyfriend at bedside. Alert, oriented x4. Reports pain being at a tolerable level with ordered pain medications; pain level rated 4/10. 2g Mg sulfate with D51/2 NS infusing well through 18g in left wrist; tolerating well. No blurred vision, visual disturba nces, or severe headaches noted. Reflexes present +2/+2. Tolerated clears fairly well; had nausea with apple juice and chicken broth, given zofran. Tolerated pretzel sticks without nausea. Fundus firm, midline at u-2. Small amount of lochia rubra. Mild edema to perineum and moderate edema to BLE. Low transverse incision with dressing; dressing clean, dry, and intact. SCDs worn most of the night. Pumping without difficulty; has not had any milk production. Up to wheelchair x1 to go down to the NICU. Chapin intact, draining large amounts of clear yellow urine. Negative Mono's. All paperwork reviewed with pt. * Tawanna Yoo RN - 11/18/2013 3:20 AM CDT Problem: Fall Risk Goal: Patient will remain free of falls Outcome: Ongoing Cait currently has a chapin catheter and does not get out of bed to go to the bathroom. Since section, Cait has called the nurse for assistance with getting out of bed. Room close to nurse station, boyfriend at bedside, and correct nurse ascom written on whiteboard to assist Cait with getting up when needed. Also provided with non-skid socks; will make sure they are on properly prior to getting out of bed. Problem: Goal: Maternal BP, heart rate and temperature within expected range Outcome: Goal Met Date Met: 11/18/13 Goal: 8 Point Check will be within normal limits 8 point check includes: 1. Breasts - soft with nipple integrity intact 2. Fundus - firm at midline 3. Bleeding - moderate rubra without clots 4. Perineum - intact without discharge or hematoma 5. Bladder - urine output is 30 ml/hour or more while chapin catheter in place; patient able to void/empty bladder after catheter is removed 6. Homans 7. Bowel sounds 8. Emotions (blues) Outcome: Ongoing Cait's breasts and nipples are observed intact prior to initiating pumping post op c/s. Fundus also noted firm, midline, and at U-2 with small amount of bright red bleeding. Perineum intact with moderate swelling; perineal care provided with chapin care. Chapin catheter intact; draining large amounts of clear yellow urine. Bowel sounds present; tolerating clear liquids and small pretzels well without nausea or vomiting. Negative Mono's Goal: Patient will return to baseline GI status As evidenced by: a) Tolerating preoperative diet without nausea or vomiting b) Passing flatus without difficulty c) Free from signs & symptoms of post-operative ileus formation Outcome: Ongoing Cait is tolerating clears and pretzels; will advance diet as tolerated. Bowel sounds present Goal: Respiratory effort without distress or complications Outcome: Goal Met Date Met: 11/18/13 Goal: Patient will verbalize satisfaction with pain management As evidenced by: A) verbalizes staff discussed pain management plan B) indicates pain is less than or equal to patient???s identified acceptable level Outcome: Goal Met Date Met: 11/18/13 See pain assessment flowsheet Goal: Tolerates diet Outcome: Ongoing Goal: Incision site is free of redness, swelling and/or warmth and is well approximated Outcome: Ongoing Problem: Pain/Discomfort Goal: Patient will verbalize satisfaction with pain management. As evidenced by: A) verbalizes staff discussed pain management plan B) indicates pain is less than or equal to patient???s identified acceptable level Outcome: Goal Met Date Met: 11/18/13 Problem: Potential for Infection Goal: Signs and symptoms of infections are decreased or avoided Outcome: Ongoing Goal: Infection of urinary catheter avoided. Outcome: Ongoing Chapin care done every 8 hours to prevent urinary tract infections. Problem: Incision Care Goal: Incision remains intact with edges well approximated Outcome: Ongoing Dressing to low transverse incision clean, dry, and intact. Unable to evaluate actual incision. Goal: Incision is free of infection. Outcome: Ongoing Problem: Emotional Well-Being Goal: Participates in decision-making Outcome: Goal Met Date Met: 11/18/13 Goal: Verbalizes coping strategies Outcome: Ongoing Goal: Patient/Support person will have all essential information communicated in language they can understand Outcome: Ongoing Goal: Care delivered is culturally relevant Outcome: Ongoing Goal: Parent- bonding occurs As evidenced by: a) eye contact b) holding baby close c) frequently touching d) talking to e) If : i. mother expresses confidence in ability to breastfeed ii. mother demonstrates ability to breastfeed independently Outcome: Ongoing Cait and FOB spent half an hour down in the NICU with their daughter. Observed couple holding , verbalizing to infant, holding baby close, and Cait's questions for the nurse regarding . * Elizabet Bee RN - 11/17/2013 4:46 PM CDT Problem: High Risk for CONTRACTING EXECUTIVE Injury Related to Hypertension Goal: Blood Pressure Remains within Acceptable Limits Outcome: Goal Met Date Met: 11/17/13 Goal: Fluid and electrolyte balance are achieved/maintained Outcome: Goal Met Date Met: 11/17/13 Goal: No Symptoms of Headache or Visual Disturbances Outcome: Goal Met Date Met: 11/17/13 Goal: Maintains Level of Consciousness Outcome: Goal Met Date Met: 11/17/13 Goal: Absence of Seizures No seizures or other Central Nervous System damage is evident. Outcome: Goal Met Date Met: 11/17/13 Problem: Respiratory Status High risk for altered respiratory function: Decreased related to excessive fluid volume (pulmonary edema). Goal: Vital Signs are medically acceptable Outcome: Goal Met Date Met: 11/17/13 Goal: Signs/Symptoms of Pulmonary Edema Avoided Outcome: Goal Met Date Met: 11/17/13 Goal: Respiratory rate will be within normal limits for patient. Outcome: Goal Met Date Met: 11/17/13 Problem: High Risk for Hepatic Injury Goal: Signs/Symptoms of Hepatic Injury are Avoided No signs or symptoms of hepatic injury or rupture are observed. Outcome: Goal Met Date Met: 11/17/13 Goal: Normal or Improving Liver Function Studies Outcome: Goal Met Date Met: 11/17/13 Problem: High Risk for Impaired Well Being Goal: Viable Infant is Safely Delivered Outcome: Goal Met Date Met: 11/17/13 Problem: Anxiety and Fear Anxiety and fear related to risk of harm to self and fetus. Goal: Anxiety is at manageable level Outcome: Goal Met Date Met: 11/17/13 Goal: Verbalizes Understanding of Disease Process and Treatment Outcome: Goal Met Date Met: 11/17/13 Goal: Family Members Act as Support System Outcome: Goal Met Date Met: 11/17/13 Problem: Fall Risk Goal: Patient will remain free of falls Outcome: Ongoing * Elizabet Bee RN - 11/17/2013 2:36 PM CDT Problem: High Risk for Hepatic Injury Goal: Signs/Symptoms of Hepatic Injury are Avoided No signs or symptoms of hepatic injury or rupture are observed. Outcome: Ongoing Cait reports no headache, RUQ pain, N/V or blurred vision Problem: Anxiety and Fear Anxiety and fear related to risk of harm to self and fetus. Goal: Anxiety is at manageable level Outcome: Ongoing Cait expresses being nervous, but her behaviors exhibit an appropriate level of anxiety. Kinas family and friends at the bedside providing great support. * Casey Rainey RN - 11/17/2013 2:16 PM CDT Pt transferred via bed to L&D by L&D nurses. Report given to Juana Bee RN. Patient and family's questions answered. * Ulysses Sheldon MD - 11/17/2013 7:22 AM CDT MS4 Antepartum Progress Note Subjective: Patient denies vaginal bleeding, loss of fluid, contractions. Reports normal movement. Denies H/A, blurry vision, chest pain, SOB, nausea/vomiting, abdominal pain, diarrhea/constipation,fevers/chills, and dysuria. Objective: Patient Vitals for the past 24 hrs: Temp Resp BP SpO2 11/17/13 0415 97.8 ??F 20 141/86 mmHg - 11/16/13 2300 97.8 ??F 18 146/91 mmHg - 11/16/13 2010 98.5 ??F 20 127/76 mmHg - 11/16/13 1530 99.3 ??F 18 144/95 mmHg - 11/16/13 1135 98 ??F 16 146/87 mmHg - 11/16/13 0755 99.1 ??F 18 150/79 mmHg 99 % Physical Exam: General: alert, no acute distress Cardio: RRR, no murmurs Resp: CTAB Abd: gravid, nontender Extremities: pitting edema bilaterally, nontender bilaterally NST: baseline 130, moderate variability, reactive, no decelerations [place]: no contractions Urine culture final result (collected 11/13/13) - >100,000 CFU/mL enterobacter cloacae complex; >100,000 CFU/mL enterococcus species Assessment and Plan: Patient is a 18 year old at 34w0d with pre-eclampsia. 1. Pre-eclampsia - Blood pressures have been persistently elevated but controlled since yesterday. Continue nifedipine at 60mg qAM and 30mg at bedtime. - Mg given for seizure prophylaxis. Stopped yesterday. - Protein/creatinine ratio 8.81 on 11/08. - 24 hour urine protein 5268mg (at Dr. Rodriguez's) - s/p betamethasone 11/08-11/09 - NICU consulted 11/09, appreciate their input 2. UTI - IV Ceftriaxone 2g once for enterobacter. - Nitrofurantoin 100mg BID (7 day course) for enterococcus. 3. IUGR - EFW <10% for GA on sonogram 11/09 4. Breech presentation - consented for C section 5. Supervision of - B+/I/-/-, NR - GBS negative on 11/08 - GC/CT negative on 11/09 6. FWB reassuring - Sonogram 11/09/13 - 1684br(8.8); fundal placenta, umbilical artery Doppler S/D ratio 2.5 (wnl) - scheduled for C section today Ulysses Sheldon, MS4 11/17/13 * Gustavo Armendariz MD - 11/17/2013 6:54 AM CDT R3 Antepartum Progress Note Date: 11/17/2013 Hospital Day: 9 Subjective: Patient feels well, without complaints. Denies JEFFERSON, RUQ pain, or visual changes. Denies ctx, LOF, orVB. FM normal Objective: BP 141/86 Pulse 84 Temp(Src) 97.8 ??F Resp 20 Wt 206 lb 12.8 oz (93.804 kg) BMI 40.39 kg/m2 Temp (24hrs) Max:99.3 ??F Systolic (30hrs), Av mmHg, Min:127 mmHg, Max:150 mmHg Diastolic (30hrs), Av mmHg, Min:73 mmHg, Max:95 mmHg Intake/Output Summary (Last 24 hours) at 11/17/13 0654 Last data filed at 11/17/13 0415 Gross per 24 hour Intake 2100 ml Output 1350 ml Net 750 ml No data found. Physical Exam: General: alert, cooperative, no distress Lungs: clear to auscultation bilaterally Heart: regular rate and rhythm Abdomen: gravid, NT Extremities: normal, non-tender bilaterally NST: See procedure note TOCO: Problem List: Patient Active Problem List Diagnosis Date Noted ??? IUGR (intrauterine growth restriction) 11/15/2013 ??? Tobacco abuse 11/09/2013 ??? Preeclampsia 11/09/2013 ??? Breech presentation 11/09/2013 ??? Supervision of high-risk 11/09/2013 Assessment: 18 y.o. at 34w0d Severe Pre-eclampsia with IUGR 1. Severe BPs on admission s/p IV labetalol x2 2. Pr:Cr 8.8 but patient did have UTI 3. 24 hr urine 5268mg (done with Dr. Rodriguez) 4. S/p Mg 5. Cont Adalat 60/30mg 6. S/p ANCS for improved outcomes 7. S/p NICU consult 8. UA dopplers 2.5 on 11/09 9. C/S scheduled today at 1300 for breech presentation (confirmed yesterday) Breech presentation 1. Consented for C/S upon admission UTI- cont Macrobid, s/p Rocephin x 1 S/p fall-coags wnl, monitoring reassuring Supervision of 1. B+/I/-/-, NR 2. GBS neg FWB reassuring, 1479br(12), st 7/2-3 Sumaya Hudson MD 11/17/2013 6:54 AM MFM Attending Progress Note Addendum Date: 11/17/2013 I have seen and examined the patient with the resident/fellow and agree with their documentation. Subjective: Cait Mathews is a 18 y.o. at 34w0d weeks gestation The patient's is complicated by: Patient Active Problem List Diagnosis ??? Tobacco abuse ??? Preeclampsia ??? Breech presentation ??? Supervision of high-risk ??? IUGR (intrauterine growth restriction) The patient reports no bleeding, cramping/contractions or leaking of fluid. Movement: normal. Objective: Temp (24hrs) Max:99.3 ??F BP 136/88 Pulse 84 Temp(Src) 98.2 ??F Resp 18 Wt 206 lb 12.8 oz (93.804 kg) BMI 40.39 kg/m2 Physical Exam: General: alert, cooperative, no distress Skin: Normal. and no rash or abnormalities Lungs: clear to auscultation bilaterally Heart: regular rate and rhythm Extremities: normal, non-tender bilaterally Neuro: grossly normal, reflexes 2+ Abdomen: gravid Contractions: none Recent Labs Component Name 11/17/13 0546 WBC 13.4* HGB 13.2 HCT 39.5 PLTCOUNT 263 Assessment/Plan: Cait Mathews is a 18 y.o. at 34w0d weeks gestation. 1. Severe preeclampsia: by BP and urine dipstick; on anti HTN medications worsening BP since last pm; reassuring testing 2. malpresentation: breech presentation 3. IUGR fetus: weekly dopplers 4. Enterobacter/Enterococcus UTI Plan: CS today for severe preeclampsia. Declined an attempt at ECV prior to CS. Magnesium for seizure prophylaxis Macrobid/ rocephin to continue The section has been fully reviewed with Ms Mathews and written informed consent has been obtained. Risks including, but not limited to, bleeding, hemorrhage, infection, damage to other structures such as the bladder, bowels, ureters, or blood vessels, need for blood transfusion or blood products (which she did accept), need for further procedures, DVT, PE, , and possible hysterectomy if necessary for lifesaving purposes, risk of injury to patient/fetus have been explained. All questions were answered. She wishes to proceed. Gustavo Armendariz MD * Michell Sandhu RN - 11/17/2013 6:49 AM CDT Shift summary: Assessment as charted per flow sheet. VSS, pt afebrile. NST completed. NPO since midnight. Pt aware to call with any needs. Report given to oncoming RN. * Michell Sandhu RN - 11/17/2013 3:35 AM CDT Problem: High Risk for CONTRACTING EXECUTIVE Injury Related to Hypertension Goal: Blood Pressure Remains within Acceptable Limits Outcome: Ongoing Goal: Fluid and electrolyte balance are achieved/maintained Outcome: Ongoing Goal: No Symptoms of Headache or Visual Disturbances Outcome: Ongoing Goal: Maintains Level of Consciousness Outcome: Ongoing Cait remains alert and oriented Goal: Absence of Seizures No seizures or other Central Nervous System damage is evident. Outcome: Ongoing Problem: Respiratory Status High risk for altered respiratory function: Decreased related to excessive fluid volume (pulmonary edema). Goal: Vital Signs are medically acceptable Outcome: Ongoing Goal: Signs/Symptoms of Pulmonary Edema Avoided Outcome: Ongoing Goal: Respiratory rate will be within normal limits for patient. Outcome: Ongoing Problem: High Risk for Hepatic Injury Goal: Signs/Symptoms of Hepatic Injury are Avoided No signs or symptoms of hepatic injury or rupture are observed. Outcome: Ongoing Cait denies RUQ pain Goal: Normal or Improving Liver Function Studies Outcome: Ongoing Problem: High Risk for Impaired Well Being Goal: Viable is Safely Delivered Outcome: Ongoing Problem: Anxiety and Fear Anxiety and fear related to risk of harm to self and fetus. Goal: Anxiety is at manageable level Outcome: Ongoing Goal: Verbalizes Understanding of Disease Process and Treatment Outcome: Ongoing Goal: Family Members Act as Support System Outcome: Ongoing Problem: Fall Risk Goal: Patient will remain free of falls Outcome: Ongoing * Casey Rainey RN - 11/16/2013 6:05 PM CDT Shift Summary: Pt resting in bed. Reports +FM. Denies ctxs, LOF, vb, visual changes or epigastric pain. States she no longer has headache. BPs within acceptable range. Encouraged to call with any needs or concerns. Pt knows she is NPO after midnight. * Casey Rainey RN - 11/16/2013 6:05 PM CDT Problem: High Risk for CONTRACTING EXECUTIVE Injury Related to Hypertension Goal: Blood Pressure Remains within Acceptable Limits Outcome: Ongoing Cait'kelly blood pressures have remained within acceptable limits Goal: Fluid and electrolyte balance are achieved/maintained Outcome: Ongoing Goal: No Symptoms of Headache or Visual Disturbances Outcome: Ongoing Cait denies headache this afternoon Goal: Maintains Level of Consciousness Outcome: Ongoing Goal: Absence of Seizures No seizures or other Central Nervous System damage is evident. Outcome: Ongoing Problem: Respiratory Status High risk for altered respiratory function: Decreased related to excessive fluid volume (pulmonary edema). Goal: Vital Signs are medically acceptable Outcome: Ongoing Goal: Signs/Symptoms of Pulmonary Edema Avoided Outcome: Ongoing Goal: Respiratory rate will be within normal limits for patient. Outcome: Ongoing Problem: High Risk for Hepatic Injury Goal: Signs/Symptoms of Hepatic Injury are Avoided No signs or symptoms of hepatic injury or rupture are observed. Outcome: Ongoing Goal: Normal or Improving Liver Function Studies Outcome: Ongoing Problem: High Risk for Impaired Well Being Goal: Viable Infant is Safely Delivered Outcome: Ongoing Problem: Anxiety and Fear Anxiety and fear related to risk of harm to self and fetus. Goal: Anxiety is at manageable level Outcome: Ongoing Goal: Verbalizes Understanding of Disease Process and Treatment Outcome: Ongoing Goal: Family Members Act as Support System Outcome: Ongoing Problem: Fall Risk Goal: Patient will remain free of falls Outcome: Ongoing * Sumaya Hudson MD - 11/16/2013 1:56 PM CDT I spoke to the pharmacy who notified me that the enterococcus is not sensitive to Ancef. She has both Enterococcus and Enterbacter in her urine culture. Will switch to Macrobid for coverage of enterococcus and Rocephin for coverage of Enterobacter. Sumaya Hudson MD 11/16/2013 1:57 PM * Ulysses Sheldon MD - 11/16/2013 7:21 AM CDT MS4 Antepartum Progress Note Subjective: Patient denies vaginal bleeding, loss of fluid, contractions. Reports normal movement. Patient reports mild headache this morning, attributed to Mg. Had headaches after starting Mg yesterday, which showed little response to Fioricet and Tylenol. Mg was turned down yesterday evening, and has been stopped this morning. Denies blurry vision, chest pain, SOB, nausea/vomiting, abdominal pain, diarrhea/constipation, fevers/chills. Denies dysuria. Objective: Patient Vitals for the past 24 hrs: Temp Resp BP SpO2 11/16/13 0600 97.8 ??F 18 140/73 mmHg - 11/16/13 0559 - - - 98 % 11/16/13 0310 - 18 150/78 mmHg - 11/16/13 0032 97.9 ??F 18 148/74 mmHg 98 % 11/15/132051 98 ??F 16 154/89 mmHg 97 % 11/15/131956 98.2 ??F 18 150/88 mmHg - 11/15/13 1956 - - - 96 % 11/15/13 1835 - - 146/78 mmHg - 11/15/13 1650 - - 158/97 mmHg 99 % 11/15/13 1540 98.4 ??F 18 140/80 mmHg - 11/15/13 1415 - - 147/84 mmHg - 11/15/13 1225 97.9 ??F 18 138/75 mmHg 96 % 11/15/13 1215 - - 133/77 mmHg - 11/15/13 1210 - - 138/82 mmHg - 11/15/13 1130 - - 143/87 mmHg - 11/15/13 1040 - - 153/84 mmHg - 11/15/13 1025 - - 165/89 mmHg - 11/15/13 0945 - - 166/88 mmHg - 11/15/13 0900 - - 170/100 mmHg - Physical Exam: General: alert, no acute distress Cardio: RRR, no murmurs Resp: CTAB Abd: gravid, nontender Extremities: pitting edema bilaterally, nontender bilaterally NST: baseline 135, moderate variability, reactive, no decelerations, no contractions Urine culture final result (collected 11/13/13) - >100,000 CFU/mL enterobacter cloacae complex; >100,000 CFU/mL enterococcus species Assessment and Plan: Patient is a 18 year old at 33w6d with pre-eclampsia. 1. Pre-eclampsia - Blood pressures elevated yesterday at 150-169/80s-90s. S/p IV labetalolx1 yesterday and nifedipine dose increased. Continue nifedipine at 60mg qAM and 30mg at bedtime. - Mg given yesterday for seizure prophylaxis. Stopped this AM. - Protein/creatinine ratio 8.81 on 11/08. - s/p betamethasone 11/08-11/09 - NICU consulted 11/09, appreciate their input 2. UTI - resistant to Nitrofurantoin, so abx was changed to cefazolin yesterday - continue cefazolin 1g q8h 3. IUGR - EFW <10% for GA on sonogram 11/09 4. Breech presentation - consented for C section 5. Supervision of - B+/I/-/-, NR - GBS negative on 11/08 - GC/CT negative on 11/09 6. FWB reassuring - Sonogram 11/09/13 - 1684br(8.8); fundal placenta, umbilical artery Doppler S/D ratio 2.5 (wnl) - scheduled for C section tomorrow 11/17 (34 weeks) DHEERAJ Murillo 11/16/13 * Gustavo Armendariz MD - 11/16/2013 7:16 AM CDT R3 Antepartum Progress Note Date: 11/16/2013 Hospital Day: 8 Subjective: Patient feels well, without complaints. Denies JEFFERSON, RUQ pain, or visual changes. Denies ctx, LOF, orVB. FM normal Objective: BP 140/73 Pulse 84 Temp(Src) 97.8 ??F Resp 18 Wt 206 lb 12.8 oz (93.804 kg) BMI 40.39 kg/m2 Temp (24hrs) Max:98.4 ??F Systolic (30hrs), Av mmHg, Min:133 mmHg, Max:189 mmHg Diastolic (30hrs), Av mmHg, Min:73 mmHg, Max:100 mmHg Intake/Output Summary (Last 24 hours) at 11/16/13 0716 Last data filed at 11/16/13 0648 Gross per 24 hour Intake 3093.6 ml Output 4450 ml Net -1356.4 ml No data found. Physical Exam: General: alert, cooperative, no distress Lungs: clear to auscultation bilaterally Heart: regular rate and rhythm Abdomen: gravid, NT Extremities: normal, non-tender bilaterally NST: See procedure note TOCO: Problem List: Patient Active Problem List Diagnosis Date Noted ??? IUGR (intrauterine growth restriction) 11/15/2013 ??? Tobacco abuse 11/09/2013 ??? Preeclampsia 11/09/2013 ??? Breech presentation 11/09/2013 ??? Supervision of high-risk 11/09/2013 Assessment: 18 y.o. at 33w6d Severe Pre-eclampsia with IUGR 1. Severe BPs on admission s/p IV labetalol x2 2. Pr:Cr 8.8 but patient did have UTI 3. 24 hr urine 5268mg (done with Dr. Rodriguez) 4. Mg restarted yesterday for increasing BPs, will d/c this morning as BPs have normalized 5. Cont Adalat 60/30mg 6. S/p ANCS for improved outcomes 7. S/p NICU consult 8. UA dopplers 2.5 on 11/09 9. C/S scheduled tomorrow at 1300 (if breech presentation persists) Breech presentation 1. Consented for C/S upon admission UTI- cont Ancef S/p fall-coags wnl, monitoring reassuring Supervision of 1. B+/I/-/-, NR 2. GBS neg FWB reassuring, 1479br(12), st /2-3 Dispo: transfer to floor Sumaya Hudson MD 11/16/2013 7:16 AM MFM Attending Progress Note Addendum Date: 11/16/2013 I have seen and examined the patient with the resident/fellow and agree with their documentation. Subjective: Cait Mathews is a 18 y.o. at 33w6d weeks gestation The patient's is complicated by: Patient Active Problem List Diagnosis ??? Tobacco abuse ??? Preeclampsia ??? Breech presentation ??? Supervision of high-risk ??? IUGR (intrauterine growth restriction) No symptoms of severe pre eclampsia The patient reports no bleeding, cramping/contractions or leaking of fluid. Movement: normal. Objective: Temp (24hrs) Max:99.1 ??F BP 146/87 Pulse 84 Temp(Src) 98 ??F Resp 16 Wt 206 lb 12.8 oz (93.804 kg) BMI 40.39 kg/m2 Physical Exam: General: alert, cooperative, no distress Heart: regular rate and rhythm Neuro: grossly normal, reflexes 2+ Abdomen: gravid, NTP Contractions: none Assessment/Plan: Cait Mathews is a 18 y.o. at 33w6d weeks gestation. Severe preeclampsia: by BP and urine dipstick; on anti HTN medications worsening BP since last pm; reassuring testing malpresentation: breech presentation IUGR fetus: weekly dopplers Enterobacter/Enterococcus UTI Plan: CS at 34 weeks -- evaluate presentation prior to CS. Macrobid/ rocephin Repeat CBC prior to IOL Daily weights Continue inpatient care due to preeclampsia Gustavo Armendariz MD * Cordell Bauer RN - 11/16/2013 6:19 AM CDT Shift Summary Patient reported severe headache last evening & believes it is from the Magnesium. Rated it a /10 but was able to snack, talk on phone & watch TV. D/w Dr Morin. Fioricet & decrease in Magnesium orders obtained. Pt was then able to sleep well this shift. Denies ctxs, vb, lof, visual changes or epigastric pain. + fm per pt. Magnesium sulfate infusing @ 1.5 gms/hr. Pt tolerating well. Reflexes 1+. LCTA. Does report a mild JEFFERSON every time I woke her for vs & this am but declined any meds for it & fell back asleep immediately while talking to nurse. pt aware to call with any needs or concerns. * Cordell Bauer RN - 11/16/2013 12:55 AM CDT Problem: High Risk for CONTRACTING EXECUTIVE Injury Related to Hypertension Goal: Blood Pressure Remains within Acceptable Limits Outcome: Ongoing Cait's blood pressures are stable this shift. Goal: Fluid and electrolyte balance are achieved/maintained Outcome: Ongoing Goal: No Symptoms of Headache or Visual Disturbances Outcome: Ongoing Cait's c/o headache are improved with decrease in Magnesium rate & Fioricet prn. Pt able to sleep well this shift. Goal: Maintains Level of Consciousness Outcome: Ongoing Goal: Absence of Seizures No seizures or other Central Nervous System damage is evident. Outcome: Ongoing Goal: Serum Magnesium Level is within Therapeutic Level Outcome: Goal Met Date Met: 11/16/13 Problem: Respiratory Status High risk for altered respiratory function: Decreased related to excessive fluid volume (pulmonary edema). Goal: Vital Signs are medically acceptable Outcome: Ongoing Goal: Signs/Symptoms of Pulmonary Edema Avoided Outcome: Ongoing Cait's LCTA Goal: Respiratory rate will be within normal limits for patient. Outcome: Ongoing Problem: High Risk for Hepatic Injury Goal: Signs/Symptoms of Hepatic Injury are Avoided No signs or symptoms of hepatic injury or rupture are observed. Outcome: Ongoing Goal: Jaundice is Documented Outcome: Goal Met Date Met: 11/16/13 Goal: Normal or Improving Liver Function Studies Outcome: Ongoing Lab work stable at this time Problem: High Risk for Impaired Well Being Goal: Viable is Safely Delivered Outcome: Ongoing Problem: Anxiety and Fear Anxiety and fear related to risk of harm to self and fetus. Goal: Anxiety is at manageable level Outcome: Ongoing Goal: Verbalizes Understanding of Disease Process and Treatment Outcome: Ongoing Cait is involved in her care of plan & verbalizes understanding that it can change d/t evolving results, tests, monitoring, etc. Goal: Family Members Act as Support System Outcome: Ongoing FOB is very supportive. Problem: Fall Risk Goal: Patient will remain free of falls Outcome: Ongoing Cait verbalized understanding of potential of falls & how to prevent. Very stable on feet & ambulating to BR unassisted. Aware ti ask for help if needed, turn lights on, wear proper footwear, etc. * Ludwin Menjivar MD - 11/16/2013 12:12 AM CDT R3 PSCU Progress Note 11/15/2013 12:12 AM O: Patient Vitals for the past 6 hrs: Temp Resp BP 11/15/132 98 ??F 16 154/89 mmHg 11/15/13 1957 98.2 ??F 18 150/88 mmHg 11/15/13 1835 - - 146/78 mmHg FHTS/TOCO: patient in PSCU for maternal indications 130 bpm, moderate variability, reactive, no decelerations [place] is irritable A/P: 18 y.o. 33w6d Pre-eclampsia with IUGR 1. BP stable 2. magnesium for seizure ppx 3. S/p ANCS for improved outcomes 4. S/p IV labetalol today 5. CPM, PSCU for maternal monitoring, Ludwin Menjivar MD 11/16/2013 12:12 AM * Rose Devries RN - 11/15/2013 6:58 PM CDT Shift summary: At the beginning of shift.Pt's BP was running high in 160s-170s/100s-110s. Asymptomatic. Dr. Koroma made aware. Pt received one time 20mg IV Labetalol. 4 g mag bolus started at 1221. Currently on 2g/hr of mag sulfate. C/o of headache while on mag sulfate. Received one time dose for Fioricet which mildly relieved (per pt). Denies epigastric pain. Denies backache, abdominal cramping,contractions, pelvis pressure, vaginal discharge or bleeding. Reflexes 05/10. Report positive FM. Resting in bed at this time. Aware to call staff for any changes. * Shruthi Koroma MD - 11/15/2013 4:54 PM CDT R2 PSCU Progress Note 11/15/2013 4:55 PM O: Patient Vitals for the past 6 hrs: Temp Resp BP 11/15/13 1650 - - 158/97 mmHg 11/15/13 1540 98.4 ??F 18 140/80 mmHg 11/15/13 1415 - - 147/84 mmHg 11/15/13 1225 97.9 ??F 18 138/75 mmHg 11/15/13 1215 - - 133/77 mmHg 11/15/13 1210 - - 138/82 mmHg 11/15/13 1130 - - 143/87 mmHg FHTS/TOCO: patient in PSCU for maternal indications 130s, reactive, reassuring, moderate A/P: 18 y.o. 33w5d Pre-eclampsia with IUGR 1. Severe BPs this am 2. magnesium for seizure ppx 3. S/p ANCS for improved outcomes 4. S/p IV labetalol today 5. CPM, PSCU for maternal monitoring, Shruthi Koroma MD 11/15/2013 4:55 PM * Rose Devries RN - 11/15/2013 2:00 PM CDT Problem: High Risk for CONTRACTING EXECUTIVE Injury Related to Hypertension Goal: Blood Pressure Remains within Acceptable Limits Outcome: Ongoing Comments: Pt BP was running high in 160s-170's/90s-110s. MDs made aware. Receive IV Labetalol once. 4 g Mag bolus given. Pt on mag sulfate at 2g/hr per MD's order. * Ksenia Mg I - 11/15/2013 11:00 AM CDT CLINICAL NUTRITION Pt rescreened 2/2 LOS. Pt wanted her snacks changed today , she had a 5 # weight loss 2/2 fluid , she feels less swollen but still c/o swelling all over. Recommend daily weights, encouraged protein with all meals and avoiding high Na foods. Med/Surg History and Clinical Diagnoses: IUP 33w5d Pre- eclampsia with IUGR, S/P fall , UTI Height: 5' (152.4 cm) Admission weight: Weight: 202 lb (91.627 kg) (11/08/132030) Filed Wts: 11/08/13203011/08/13203111/12/13 0900 11/14/13 0730 Weight: 202 lb (91.627 kg) 202 lb (91.627 kg) 211 lb (95.709 kg) 206 lb 12.8 oz (93.804 kg) Recent Labs Component Name 11/15/13 0806 ALBUMIN 1.8* Recent Labs Component Name 11/15/13 0806 11/14/13 1533 11/12/13 1042 HGB 13.3 13.3 12.5 HCT 38.2 39.1 37.0 Agree with PNV + Appetite : good . Weight Loss of 5 # fluid related Alb Severe depletion . Skin/Wound: intact. Last recorded BM 11-14-13 . Current diet order: Regular diet P.O.intake for past 48 hours % Meal Taken Av % Min: 100 % Max: 100 %. Nutrition recommendation: agree with current nutrition order Education provided,earlier in admission on diet during today reviewed pre- eclampsia diet Patient presents with preeclampsia. Discussed the benefits of increasing lean protein intake, avoiding Na+ rich and processed foods, consuming 3-4 servings of low-fat dairy each day, and obtaining adequate servings of fruits and vegetables in her diet each day. Recommended patient drink fluids between meals and for patient to consume 5-6 small meals. Discussed that these recommendation will help patient to obtain adequate nutrient intake, potentially increase protein status, and limit fluid retention during the remainder of her . Expected level of compliance: Good Will continue to follow at low nutritional risk. Recommend daily weights. Ksenia Donovan Saurav DTR 11/15/2013 11:00 AM * Sumaya Hudson MD - 11/15/2013 10:37 AM CDT BPs persistently 160s/90s. CBC/CMP drawn and wnl this AM. She remains asymptomatic. Adalat increased to 60mg this morning. IV Labetalol 20mg given x 1. Will restart Mg for seizure ppx. Sumaya Hudson MD 11/15/2013 10:40 AM * Ulysses Sheldon MD - 11/15/2013 7:21 AM CDT MS4 Antepartum Progress Note Subjective: Patient sustained a fall after slipping on the way to the bathroom last night, and hit left knee and left side of abdomen. Patient denies abdominal pain this morning. Patient denies vaginal bleeding, loss of fluid, contractions. Reports positive movement. Denies H/A, chest pain, nausea/vomiting, diarrhea/constipation, fevers/chills, SOB. Reports that she has not had dysuria since starting antibiotics. Objective: Patient Vitals for the past 24 hrs: Temp Pulse Resp BP 11/15/13 0720 - - - 168/90 mmHg 11/15/13 0603 - - - 160/88 mmHg 11/15/13 0558 - - - 169/93 mmHg 11/15/13 0455 - - - 11/15/13 0427 - - - 163/90 mmHg 11/15/13 0426 - - - 167/84 mmHg 11/15/13 0413 - - 16 - 11/15/13 0300 - - 18 - 11/15/13 0143 - - - 11/15/13 0026 - - - 150/88 mmHg 11/15/13 0018 - - - 11/14/13 2346 - - 16 - 11/14/13 2244 - - - 156/89 mmHg 11/14/13 2238 - - 18 - 11/14/13 2124 98.3 ??F - - 144/89 mmHg 11/14/135 - 84 18 126/84 mmHg 11/14/13 2015 - 80 18 136/84 mmHg 11/14/13 1530 97.8 ??F - 18 140/86 mmHg 11/14/13 1135 - 72 18 134/84 mmHg 11/14/13 0730 97.8 ??F 74 18 124/80 mmHg Physical Exam: General: alert, no acute distress Cardio: RRR, no murmurs Resp: CTAB Abd: gravid, nontender Extremities: pitting edema bilaterally, nontender bilaterally NST: baseline 135, moderate variability, reactive, no decelerations Labs 11/15/13 08:06: Cr 0.36 AST 17 ALT 23 AlkPhos 192 Hgb 13.3 Hct 38.2 Plt 266 Urine culture prelim result (collected 11/13/13) - >100,000 CFU/mL Gram negative bacilli - 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 1. Pre-eclampsia - Blood pressures elevated since fall last night at 150-169/80s-90s. S/p labetalolx1. AM nifedipinedose increased to 60mg. Continue 30mg nifedipine at bedtime. - Mg IV 4g bolus and 2g/hr continuous infusion for seizure prophylaxis. - Protein/creatinine ratio 8.81 on 11/08. 24 hour urine collection done at Dr. Rodriguez's. Records pending. - s/p betamethasone 11/08-11/09 - NICU consulted 11/09, appreciate input 2. UTI - culture confirmed - continue Nitrofurantoin 100mg BID 3. IUGR - EFW <10% for GA on sonogram 11/09 4. Breech presentation - consented for C section 5. Supervision of - Records of labs pending from Dr. Rodriguez - GBS negative on 11/08 - GC/CT negative on 11/09 6. FWB reassuring - Sonogram 11/09/13 - 1684br(8.8); fundal placenta, umbilical artery Doppler S/D ratio 2.5 (wnl) Ulysses Sheldon, MS4 11/15/13 * Gustavo Armendariz MD - 11/15/2013 7:08 AM CDT R3 Antepartum Progress Note Date: 11/15/2013 Hospital Day: 7 Subjective: Patient fell yesterday evening in her room after tripping on her socks and then was moved to PSCU for continuous monitoring. She did hit her abdomen on the floor. Denies JEFFERSON, RUQ pain, or visual changes. Denies ctx, LOF, or VB. FM normal Objective: BP 160/88 Pulse 84 Temp(Src) 98.3 ??F Resp 14 Wt 206 lb 12.8 oz (93.804 kg) BMI 40.39 kg/m2 Temp (24hrs) Max:98.3 ??F Systolic (30hrs), Av mmHg, Min:124 mmHg, Max:169 mmHg Diastolic (30hrs), Av mmHg, Min:76 mmHg, Max:93 mmHg Intake/Output Summary (Last 24 hours) at 11/15/13 0708 Last data filed at 11/14/13 2120 Gross per 24 hour Intake 1200 ml Output 1700 ml Net -500 ml No data found. Physical Exam: General: alert, cooperative, no distress Lungs: clear to auscultation bilaterally Heart: regular rate and rhythm Abdomen: gravid, NT Extremities: normal, non-tender bilaterally NST: See procedure note TOCO: Problem List: Patient Active Problem List Diagnosis Date Noted ??? Tobacco abuse 11/09/2013 ??? Preeclampsia 11/09/2013 ??? Breech presentation 11/09/2013 ??? Supervision of high-risk 11/09/2013 Assessment: 18 y.o. at 33w5d Pre-eclampsia with IUGR 1. Severe BPs on admission s/p IV labetalol x2 2. Pr:Cr 8.8 but patient did have UTI 3. 24 hr urine 5268mg (done with Dr. Rodriguez) 4. S/p magnesium for seizure ppx 5. S/p ANCS for improved outcomes 6. S/p NICU consult 7. UA dopplers 2.5 on 11/09 8. BPs increased this AM, 150-160/80; will increase Adalat to 60mg in AM, 30mg in PM and order CMP/CBC Breech presentation 1. Consented for C/S upon admission UTI- cont Macrobid. Sensitivities on urine cx pend S/p fall-coags wnl, monitoring reassuring Supervision of 1. B+/I/-/-, NR 2. GBS neg FWB reassuring, 1479br(12), st /-3 Sumaya Hudson MD 11/15/2013 7:08 AM MFM Attending Progress Note Addendum Date: 11/15/2013 I have seen and examined the patient with the resident/fellow and agree with their documentation. Subjective: Cait Mathews is a 18 y.o. at 33w5d weeks gestation The patient's is complicated by: Patient Active Problem List Diagnosis ??? Tobacco abuse ??? Preeclampsia ??? Breech presentation ??? Supervision of high-risk ??? IUGR (intrauterine growth restriction) Fall last night without direct abdominal trauma. However her BP were labile requiring additional anti HTN. No other symptoms of pre eclampsia/ severe features The patient reports no bleeding, cramping/contractions or leaking of fluid. Movement: normal. Labs reviewed - nml Objective: Temp (24hrs) Max:98.3 ??F BP 138/75 Pulse 84 Temp(Src) 97.9 ??F Resp 18 Wt 206 lb 12.8 oz (93.804 kg) BMI 40.39 kg/m2 Physical Exam: General: alert, cooperative, no distress, fatigued on magnesium Skin: Normal. and no rash or abnormalities Extremities: normal, non-tender bilaterally. No open wounds/ neck stiffness or obvious bruising from her fall Neuro: grossly normal, reflexes 2+ Abdomen: gravid, NTP Assessment/Plan: Cait Mathews is a 18 y.o. G1 at 33w5d weeks gestation. Severe preeclampsia: by BP and urine dipstick; on anti HTN medications worsening BP since last pm; reassuring testing malpresentation: breech presentation IUGR fetus: weekly dopplers Enterobacter UTI Plan: Continue mag until am tomorrow given the labile BP CS at 34 weeks Ancef for UTI Repeat CBC prior to IOL Daily weights Continue inpatient care due to preeclampsia Gustavo Armendariz MD * Sari Vo RN - 11/15/2013 5:46 AM CDT Pt resting without pain. Awakes momentarily. States that she is hopeful to get off continuous monitioring. +lt v noted with accels throughout. 1 deceleration noted since fall on 5sw.no bldg or lof. +fm noted per pt. Will cont to monitor closely as ordred per . Bps trending up. Last bp reading (automatic-169/93) And (manual 160/88). Adalat due at 0900 Iv heplock wnl. Denies jefferson or blurred vision. * Sari Vo RN - 11/15/2013 5:14 AM CDT Problem: High Risk for CONTRACTING EXECUTIVE Injury Related to Hypertension Goal: Blood Pressure Remains within Acceptable Limits Outcome: Ongoing Goal: Fluid and electrolyte balance are achieved/maintained Outcome: Ongoing Goal: No Symptoms of Headache or Visual Disturbances Outcome: Ongoing Goal: Maintains Level of Consciousness Outcome: Ongoing Goal: Absence of Seizures No seizures or other Central Nervous System damage is evident. Outcome: Ongoing Goal: Serum Magnesium Level is within Therapeutic Level Outcome: Ongoing Problem: Respiratory Status High risk for altered respiratory function: Decreased related to excessive fluid volume (pulmonary edema). Goal: Vital Signs are medically acceptable Outcome: Ongoing Goal: Signs/Symptoms of Pulmonary Edema Avoided Outcome: Ongoing Goal: Respiratory rate will be within normal limits for patient. Outcome: Ongoing Problem: High Risk for Hepatic Injury Goal: Signs/Symptoms of Hepatic Injury are Avoided No signs or symptoms of hepatic injury or rupture are observed. Outcome: Ongoing Goal: Jaundice is Documented Outcome: Ongoing Goal: Normal or Improving Liver Function Studies Outcome: Ongoing Problem: High Risk for Impaired Well Being Goal: Viable Infant is Safely Delivered Outcome: Ongoing Problem: Anxiety and Fear Anxiety and fear related to risk of harm to self and fetus. Goal: Anxiety is at manageable level Outcome: Ongoing Goal: Verbalizes Understanding of Disease Process and Treatment Outcome: Ongoing Goal: Family Members Act as Support System Outcome: Ongoing Problem: Fall Risk Goal: Patient will remain free of falls Outcome: Ongoing * Irene Shell RN - 11/14/2013 9:20 PM CDT Pt transferred to PSCU report given to Daniel oV RN. * Jolanta Lin MD - 11/14/2013 9:06 PM CDT Called to patient room for fall. Pt did not have her socks on properly and slipped and fell forward. She did hit her left knee and left side of abdomen. Pt denies pain. No bleeding, LOF, +FM. BSUS: breech Fundal, right lateral placenta without evidence of abruption. FWB reassuring by NST; will transfer to PSCU for continuous monitoring for at least the next four hours. D/w Dr. Morin. Jolanta Mcclendon MD 11/14/2013 9:10 PM * Irene Shell RN - 11/14/2013 8:40 PM CDT Significant Event Patient's significant other informed RN that patient had slipped and fell. Patient sitting in chairwhen RN entered the room. Assisted patient back to bed obtained vital signs and placed on EFM. Whenthe patient was asked what had happened, the pt informed RN that her non skid footwear were not on properly and she slid walking to the bathroom hitting her knee on the floor as well as her abdomen. RN notified Dr. Yenny Lin of fall. * Rodger Bennett RN - 11/14/2013 6:32 PM CDT Shift Summary: Pt resting in bed with no c/o pain or discomfort at this time. Pt denies contractions, LOF, or VB through out shift. Pt has no c/o headache, dizziness, or blurred vision. Pt reports +FM. Pt has no other concerns at this time. VSS. Will continue to monitor. Family at bedside. * Ulysses Sheldon MD - 11/14/2013 7:56 AM CDT MS4 Antepartum Progress Note Subjective: Patient denies vaginal bleeding, loss of fluid, contractions. Reports positive movement. Denies H/A, abdominal pain, nausea/vomiting, diarrhea/constipation, fevers/chills, SOB. Reports that she continues to have occasional floaters in her visual field. Reports chest pain due to reflux which is relieved with Pepcid. Reports some dysuria. Objective: Patient Vitals for the past 24 hrs: Temp Pulse Resp BP SpO2 11/14/13 0730 - 74 18 124/80 mmHg - 11/14/13 0515 - 72 18 130/76 mmHg - 11/14/13 0020 99.1 ??F 84 18 134/82 mmHg - 11/13/13 2055 - 64 18 144/88 mmHg - 11/13/13 1730 - 82 18 148/74 mmHg - 11/13/13 1150 - 80 18 134/84 mmHg 98 % 11/13/13 0915 98.1 ??F 74 18 154/94 mmHg 99 % Physical Exam: General: alert, no acute distress Cardio: RRR, no murmurs Resp: CTAB Abd: gravid, nontender Extremities: pitting edema bilaterally, nontender bilaterally NST: baseline 145, moderate variability, reactive, no decelerations UA 11/10/13 - 3+ protein, 1+ bacteria, 5-10 WBC Culture pending. Assessment and Plan: Patient is a 18 year old at 33w4d with pre-eclampsia. 1. Pre-eclampsia - Protein/creatinine ratio 8.81 on 11/08. 24 hour urine collection done at Dr. Rodriguez's. Records pending. - Elevated BP's on admission 170s-180s/100s-110s. Given 2 doses of IV labetalol. Now controlled at 130s-140s/70s-90s with Nifedipine 30mg BID. - s/p Magnesium (last given 11/11) - s/p betamethasone 11/08-11/09 - NICU consulted 11/09, appreciate input 2. Possible UTI - culture pending - start Nitrofurantoin 100mg BID 3. IUGR - EFW <10% for GA on sonogram 11/09 4. Breech presentation - consented for C section 5. Supervision of - Records of labs pending from Dr. Rodriguez - GBS negative on 11/08 - GC/CT negative on 11/09 6. FWB reassuring - Sonogram 11/09/13 - 1684br(8.8); fundal placenta, umbilical artery Doppler S/D ratio 2.5 (wnl) Ulysses Sheldon, MS4 11/14/13 * Jerry Lane MD - 11/14/2013 7:06 AM CDT R3 Antepartum Progress Note Date: 11/14/2013 Hospital Day: 6 Subjective: Patient feels well this morning. Denies JEFFERSON, RUQ pain, or visual changes. Denies ctx, LOF, or VB. FMnormal Objective: BP 130/76 Pulse 72 Temp(Src) 99.1 ??F Resp 18 Wt 211 lb (95.709 kg) BMI 41.21 kg/m2 Temp (24hrs) Max:99.1 ??F Systolic (30hrs), Av mmHg, Min:124 mmHg, Max:154 mmHg Diastolic (30hrs), Av mmHg, Min:74 mmHg, Max:94 mmHg Intake/Output Summary (Last 24 hours) at 11/14/13 0706 Last data filed at 11/14/13 0514 Gross per 24 hour Intake 1960 ml Output 2900 ml Net -940 ml No data found. Physical Exam: General: alert, cooperative, no distress Lungs: clear to auscultation bilaterally Heart: regular rate and rhythm Abdomen: gravid, NT Extremities: normal, non-tender bilaterally NST: See procedure note TOCO: Problem List: Patient Active Problem List Diagnosis Date Noted ??? Tobacco abuse 11/09/2013 ??? Preeclampsia 11/09/2013 ??? Breech presentation 11/09/2013 ??? Supervision of high-risk 11/09/2013 Assessment: 18 y.o. at 33w4d Pre-eclampsia with IUGR 1. Severe BPs on admission s/p IV labetalol x2 2. Pr:Cr 8.8- may repeat as pt possibly had UTI; repeat urine culture pend 3. [address] done [address] Dr. Rodriguez-records requested 4. S/p magnesium for seizure ppx 5. S/p ANCS for improved outcomes 6. S/p NICU consult 7. UA dopplers 2.5 on 11/09 8. Continue adalat 30XL BID 9. BPs 130-140/70-90s Breech presentation 1. Consented for C/S upon admission ?UTI- patient c/o dysuria today. UA from admission with questionable UTI. Will start Macrobid. Supervision of 1. Records requested from Dr. Rodriguez 2. GBS neg FWB reassuring, 1479br(12), st 7/2-3 Sumaya Hudson MD 11/14/2013 7:06 AM Maternal- Medicine Progress Note Improved BP's I have reviewed the patient's chart, interviewed and examined the patient. Furthermore, I agree with the assessment and plan noted. This has been discussed with the medical student/resident/fellow and patient. EJV * Irene Shell RN - 11/14/2013 4:51 AM CDT Shift Summary Rested though night. Denies cramping ctx or LOF. +FM no headache, blurry vision, or epigastric painto report. Will continue to monitor. Patient to call with any needs. * Irene Shell, RN - 11/14/2013 4:50 AM CDT Problem: High Risk for CONTRACTING EXECUTIVE Injury Related to Hypertension Goal: Blood Pressure Remains within Acceptable Limits Outcome: Ongoing Goal: Fluid and electrolyte balance are achieved/maintained Outcome: Ongoing Goal: No Symptoms of Headache or Visual Disturbances Outcome: Ongoing Goal: Maintains Level of Consciousness Outcome: Ongoing Goal: Absence of Seizures No seizures or other Central Nervous System damage is evident. Outcome: Ongoing Goal: Serum Magnesium Level is within Therapeutic Level Outcome: Ongoing Problem: High Risk for Hepatic Injury Goal: Signs/Symptoms of Hepatic Injury are Avoided No signs or symptoms of hepatic injury or rupture are observed. Outcome: Ongoing Goal: Jaundice is Documented Outcome: Ongoing Goal: Normal or Improving Liver Function Studies Outcome: Ongoing Problem: High Risk for Impaired Well Being Goal: Viable is Safely Delivered Outcome: Ongoing Problem: Anxiety and Fear Anxiety and fear related to risk of harm to self and fetus. Goal: Anxiety is at manageable level Outcome: Ongoing Goal: Verbalizes Understanding of Disease Process and Treatment Outcome: Ongoing Cait is able to identify disease process, signs, and symptoms of worsening condition to report. Goal: Family Members Act as Support System Outcome: Ongoing * Rodger Bennett RN - 11/13/2013 6:43 PM CDT Shift Summary: Pt resting in bed with no c/o pain or discomfort at this time. Pt denies contractions, LOF, or VB through night. Pt has no c/o headache, dizziness, or blurred vision. Pt reports +FM. Pt has no other concerns at this time. VSS. Will continue to monitor. Family at bedside. * Gustavo Armendariz MD - 11/13/2013 7:05 AM CDT R3 Antepartum Progress Note Date: 11/13/2013 Hospital Day: 5 Subjective: Patient feels well this morning. Denies JEFFERSON, RUQ pain, or visual changes. Denies ctx, LOF, or VB. FMnormal Objective: BP 124/74 Pulse 65 Temp(Src) 97.7 ??F Resp 18 Wt 211 lb (95.709 kg) BMI 41.21 kg/m2 Temp (24hrs) Max:98.4 ??F Systolic (30hrs), Av mmHg, Min:124 mmHg, Max:153 mmHg Diastolic (30hrs), Av mmHg, Min:74 mmHg, Max:96 mmHg Intake/Output Summary (Last 24 hours) at 11/13/13 0705 Last data filed at 11/13/13 0406 Gross per 24 hour Intake 2034 ml Output 2700 ml Net -666 ml No data found. Physical Exam: General: alert, cooperative, no distress Lungs: clear to auscultation bilaterally Heart: regular rate and rhythm Abdomen: gravid, NT Extremities: normal, non-tender bilaterally NST: See procedure note TOCO: Problem List: Patient Active Problem List Diagnosis Date Noted ??? Tobacco abuse 11/09/2013 ??? Preeclampsia 11/09/2013 ??? Breech presentation 11/09/2013 ??? Supervision of high-risk 11/09/2013 Assessment: 18 y.o. at 33w3d Pre-eclampsia 1. Severe BPs on admission s/p IV labetalol x2 2. Pr:Cr 8.8-september repeat as pt possibly had UTI; repeat urine culture pend 3. 24 hr urine done with Dr. Rodriguez-records requested 4. S/p magnesium for seizure ppx 5. S/p ANCS for improved outcomes 6. S/p NICU consult 7. UA dopplers 2.5 on 11/09 8. Continue adalat 30XL BID 9. BPs 130-150/70-90s Breech presentation 1. Consented for C/S upon admission Supervision of 1. Records requested from Dr. Rodriguez 2. GBS neg FWB reassuring, 1479br(12), st 7/2-3 Sumaya Hudson MD 11/13/2013 7:05 AM MFM Attending Progress Note Addendum Date: 11/13/2013 I have seen and examined the patient with the resident/fellow and agree with their documentation. Subjective: Cait Mathews is a 18 y.o. at 33w3d weeks gestation The patient's is complicated by: Patient Active Problem List Diagnosis ??? Tobacco abuse ??? Preeclampsia ??? Breech presentation ??? Supervision of high-risk The patient reports no complaints, no bleeding, no cramping, no leaking and no contractions. Movement: normal. Objective: Temp (24hrs) Max:98.1 ??F BP 144/88 Pulse 64 Temp(Src) 98.1 ??F Resp 18 Wt 211 lb (95.709 kg) BMI 41.21 kg/m2 Physical Exam: General: alert, cooperative, no distress Skin: Normal. and no rash or abnormalities HEENT: Sclera clear, anicteric Abdomen: gravid NTP Ext: 2+ reflexes Assessment Cait Mathews is a 18 y.o. at 33w3d weeks gestation. Severe preeclampsia: by BP and urine dipstick; on anti HTN medications stable BP malpresentation: breech presentation IUGR fetus: weekly dopplers Plan: Weekly dopplers and preeclampsia labs Daily weights Continue inpatient care due to preeclampsia Gustavo Armendariz MD * Sari Rehman RN - 11/13/2013 5:57 AM CDT Pt resting in bed with no c/o pain or discomfort at this time. Pt denies contractions, LOF, or VB through night. Pt has no c/o headache, dizziness, or blurred vision. +FM. Pt has no other concerns atthis time. VSS. Will continue to monitor. * Sari Rehman RN - 11/13/2013 5:49 AM CDT Problem: High Risk for CONTRACTING EXECUTIVE Injury Related to Hypertension Goal: Blood Pressure Remains within Acceptable Limits Outcome: Ongoing Goal: Fluid and electrolyte balance are achieved/maintained Outcome: Ongoing Goal: No Symptoms of Headache or Visual Disturbances Outcome: Ongoing Goal: Maintains Level of Consciousness Outcome: Ongoing Goal: Absence of Seizures No seizures or other Central Nervous System damage is evident. Outcome: Ongoing Goal: Serum Magnesium Level is within Therapeutic Level Outcome: Ongoing Problem: Respiratory Status High risk for altered respiratory function: Decreased related to excessive fluid volume (pulmonary edema). Goal: Vital Signs are medically acceptable Outcome: Ongoing Goal: Signs/Symptoms of Pulmonary Edema Avoided Outcome: Ongoing Goal: Respiratory rate will be within normal limits for patient. Outcome: Ongoing Problem: High Risk for Hepatic Injury Goal: Signs/Symptoms of Hepatic Injury are Avoided No signs or symptoms of hepatic injury or rupture are observed. Outcome: Ongoing Goal: Jaundice is Documented Outcome: Ongoing Goal: Normal or Improving Liver Function Studies Outcome: Ongoing Problem: High Risk for Impaired Well Being Goal: Viable is Safely Delivered Outcome: Ongoing Problem: Anxiety and Fear Anxiety and fear related to risk of harm to self and fetus. Goal: Anxiety is at manageable level Outcome: Ongoing Goal: Verbalizes Understanding of Disease Process and Treatment Outcome: Ongoing Goal: Family Members Act as Support System Outcome: Ongoing * Katlyn Major RN - 11/12/2013 5:45 PM CDT Patient pleasant resting, father of baby at bedside. Patient denies any contractions, leakage of fluid, decreased baby movement, headache, visual changes or needs. Patient aware to call with any changes in condition. Will give report to straight knife machine cutter Rn. * Isaac Devries MD - 11/12/2013 8:49 AM CDT M Attending Progress Note Addendum Date: 11/12/2013 I have seen and examined the patient with the resident/fellow and agree with their documentation. Subjective: Cait Mathews is a 18 y.o. at 33w2d weeks gestation The patient's is complicated by: Patient Active Problem List Diagnosis ??? Tobacco abuse ??? Preeclampsia ??? Breech presentation ??? Supervision of high-risk The patient reports no bleeding, cramping/contractions or leaking of fluid. No headache or visual symptoms. Movement: normal. Objective: Temp (24hrs) Max:99 ??F BP 145/84 Pulse 70 Temp(Src) 98.6 ??F Resp 18 Wt 202 lb (91.627 kg) BMI 39.45 kg/m2 Physical Exam: General: alert, cooperative, no distress Extremities: normal, non-tender bilaterally Abdomen: gravid, soft, non-tender Assessment/Plan: Cait Mathews is a 18 y.o. at 33w2d weeks gestation. 1. Preeclampsia: Severe BP on admission. May need to repeat 24 hour urine protein as may have had UTI at the time of original collection. Still need record of 24 hour collection. 2. Breech presentation: May need delivery depending on clinical circumstances 3. Continue inpatient care due to preeclampisa Isaac Devries MD * Melanie Ocasio RN - 11/12/2013 7:03 AM CDT Shift Summary: Pt is resting in bed. Vital signs and temp are stable. Pt is aware to contact staff of any changes to her condition. * Jennifer Liao MD - 11/12/2013 6:06 AM CDT R2 Antepartum Progress Note Date: 11/12/2013 Hospital Day: 4 Subjective: Cait Mathews is a 18 y.o. G 1 P 0 A 0 at 33w2d weeks gestation. Patient asleep, but per report, denies jefferson, vision changes, abd tenderness, ctx, lof, vb. Movement: normal. Objective: BP 145/84 Pulse 70 Temp(Src) 98.6 ??F Resp 18 Wt 202 lb (91.627 kg) BMI 39.45 kg/m2 Temp (24hrs) Max:99 ??F Systolic (30hrs), Av mmHg, Min:131 mmHg, Max:160 mmHg Diastolic (30hrs), Av mmHg, Min:78 mmHg, Max:91 mmHg Intake/Output Summary (Last 24 hours) at 11/12/13 0606 Last data filed at 11/12/13 0401 Gross per 24 hour Intake 840 ml Output 1600 ml Net -760 ml Physical Exam: NST: See proc note TOCO: Problem List: Patient Active Problem List Diagnosis Date Noted ??? Tobacco abuse 11/09/2013 ??? Preeclampsia 11/09/2013 ??? Breech presentation 11/09/2013 ??? Supervision of high-risk 11/09/2013 Assessment: 18 y.o. at 33w2d 1. Pre-eclampsia 1. Severe BPs on admission s/p IV labetalol x2 2. Pr:Cr 8.8-may repeat as pt possibly had UTI; rpt UA improved 3. S/p magnesium for seizure ppx 4. S/p ANCS for improved outcomes 5. S/p NICU consult, appreciated 6. Formal US with dopplers Wednesday 7. Continue adalat 30XL daily for BP control 8. BPs 130-160/80-90s overnight 2. Breech presentation 1. Consented for C/S upon admission 3. Supervision of 1. Records requested from Dr. Rodriguez 2. GBS pending 4. FWB reassuring, 1479br(12), st /-3 Jennifer Liao MD 11/12/2013 6:06 AM * Melanie Ocasio RN - 11/12/2013 5:36 AM CDT Problem: High Risk for CONTRACTING EXECUTIVE Injury Related to Hypertension Goal: Blood Pressure Remains within Acceptable Limits Outcome: Variance - See Flowsheet Documentation Cait is still having occasional elevated blood pressures. However her blood pressure is better obtaining manual one instead of automatic Goal: Fluid and electrolyte balance are achieved/maintained Outcome: Ongoing Goal: No Symptoms of Headache or Visual Disturbances Outcome: Ongoing Goal: Absence of Seizures No seizures or other Central Nervous System damage is evident. Outcome: Ongoing * Rose Devries RN - 11/11/2013 7:23 PM CDT Shift summary: Pt denies visual changes, headache, or epigastric pain. Denies backache, abdominal cramping,contractions, pelvis pressure, vaginal discharge or bleeding. Vital signs via flow sheet. Reflexes 05/10. Report positive FM. Resting in bed at this time. Aware to call staff for any changes. * Isaac Devries MD - 11/11/2013 9:55 AM CDT MFM Attending Progress Note Addendum Date: 11/11/2013 I have seen and examined the patient with the resident/fellow and agree with their documentation. Subjective: Cait Mathews is a 18 y.o. at 33w1d weeks gestation The patient's is complicated by: Patient Active Problem List Diagnosis ??? Tobacco abuse ??? Preeclampsia ??? Breech presentation ??? Supervision of high-risk The patient reports no bleeding, cramping/contractions or leaking of fluid. No headache or visual symptoms. Movement: normal. Objective: Temp (24hrs) Max:98.6 ??F BP 146/78 Temp(Src) 98.6 ??F Resp 18 Wt 202 lb (91.627 kg) BMI 39.45 kg/m2 Physical Exam: General: alert, cooperative, no distress Extremities: normal, non-tender bilaterally Abdomen: gravid, soft, non-tender Assessment/Plan: Cait Mathews is a 18 y.o. at 33w1d weeks gestation. 1. Preeclampsia: Severe BP on admission. May need to repeat 24 hour urine protein as may have had UTI at the time of original collection. 2. Breech presentation: May need delivery depending on clinical circumstances 3. Continue inpatient care due to preeclampisa Isaac Devries MD * Rose Devries RN - 11/11/2013 9:35 AM CDT Problem: High Risk for CONTRACTING EXECUTIVE Injury Related to Hypertension Goal: Blood Pressure Remains within Acceptable Limits Outcome: Ongoing * Jennifer Liao MD - 11/11/2013 5:56 AM CDT R2 Antepartum Progress Note Date: 11/11/2013 Hospital Day: 3 Subjective: Cait Mathews is a 18 y.o. G 1 P 0 A 0 at 33w1d weeks gestation. Patient reports mild headache and blurred vision, which she relates to the magnesium. Denies epigastric or RUQ pain. Swelling is improved. Denies ctx, lof, vb. Movement: normal. Objective: BP 140/80 Temp(Src) 98.2 ??F Resp 18 Wt 202 lb (91.627 kg) BMI 39.45 kg/m2 Temp (24hrs) Max:98.5 ??F Systolic (30hrs), Av mmHg, Min:120 mmHg, Max:151 mmHg Diastolic (30hrs), Av mmHg, Min:58 mmHg, Max:96 mmHg Intake/Output Summary (Last 24 hours) at 11/11/13 0556 Last data filed at 11/11/13 0338 Gross per 24 hour Intake 4440.4 ml Output 4600 ml Net -159.6 ml Physical Exam: General: alert, cooperative, no distress Lungs: clear to auscultation bilaterally Heart: regular rate and rhythm Abdomen: gravid, NT Extremities: 2+ pitting edema to mid-calf, non-tender bilaterally, DTRs +2 NST: See proc notes TOCO: Problem List: Patient Active Problem List Diagnosis Date Noted ??? Tobacco abuse 11/09/2013 ??? Preeclampsia 11/09/2013 ??? Breech presentation 11/09/2013 ??? Supervision of high-risk 11/09/2013 Assessment: 18 y.o. at 33w1d 1. Pre-eclampsia 1. Severe BPs on admission s/p IV labetalol x2 2. Pr:Cr 8.8-may repeat as pt possibly had UTI; rpt UA improved 3. S/p magnesium for seizure ppx 4. S/p ANCS for improved outcomes 5. S/p NICU consult, appreciated 6. Formal US with dopplers Wednesday 7. Continue adalat 30XL daily for BP control 8. BPs 140/60-90s overnight 2. Breech presentation 1. Consented for C/S upon admission 3. Supervision of 1. Records requested from Dr. Rodriguez 2. GBS pending 4. FWB reassuring, 1479br(12), st 7/2-3 Jennifer Liao MD 11/11/2013 5:56 AM * Cornel Walsh RN - 11/11/2013 5:53 AM CDT Shift Summary: Patient resting quietly throughout shift. VSS, current b/p 140/80, and denies any blurred vision, headache, or epigastric pain. Magnesium Sulfate infusing at 50ml/hr. Patient reports good movement, and denies any leaking of fluid, cramping, contractions, or vaginal bleeding. No other needs atthis time. Will continue to monitor patient. * Cornel Walsh RN - 11/11/2013 4:42 AM CDT Problem: High Risk for CONTRACTING EXECUTIVE Injury Related to Hypertension Goal: Blood Pressure Remains within Acceptable Limits Outcome: Ongoing Goal: Fluid and electrolyte balance are achieved/maintained Outcome: Ongoing Goal: No Symptoms of Headache or Visual Disturbances Outcome: Ongoing Cait H Mathews's headache has been decreasing since application of Nicotine patch. Goal: Maintains Level of Consciousness Outcome: Ongoing Goal: Absence of Seizures No seizures or other Central Nervous System damage is evident. Outcome: Ongoing Goal: Serum Magnesium Level is within Therapeutic Level Outcome: Ongoing Problem: Respiratory Status High risk for altered respiratory function: Decreased related to excessive fluid volume (pulmonary edema). Goal: Vital Signs are medically acceptable Outcome: Ongoing Goal: Signs/Symptoms of Pulmonary Edema Avoided Outcome: Ongoing Cait H Mathews coughs and deep breathes independently. Goal: Respiratory rate will be within normal limits for patient. Outcome: Ongoing Problem: High Risk for Hepatic Injury Goal: Signs/Symptoms of Hepatic Injury are Avoided No signs or symptoms of hepatic injury or rupture are observed. Outcome: Ongoing Goal: Jaundice is Documented Outcome: Ongoing Goal: Normal or Improving Liver Function Studies Outcome: Ongoing Problem: High Risk for Impaired Well Being Goal: Viable is Safely Delivered Outcome: Ongoing Problem: Anxiety and Fear Anxiety and fear related to risk of harm to self and fetus. Goal: Anxiety is at manageable level Outcome: Ongoing Goal: Verbalizes Understanding of Disease Process and Treatment Outcome: Ongoing Goal: Family Members Act as Support System Outcome: Ongoing * Hope Ribeiro RN - 11/10/2013 6:46 PM CDT Shift summary: B/p's 140s/150s/80s-90s throughout shift. Pt with c/o increasing h/a. States nothingrelieves the h/a. Found out pt has just quit smoking about four days ago. Ordered nicotine patch and 1 gram of tylenol. Pt states fioricet, reglan/benadryl, and tylenol do not give her any relief. Mag continues at 2 gm/hr. Lcta, reflexes 05/10. Up to bathroom without difficulty. Moderate generalized edema. Pt now stating it is burning after I pee. Dr. Bustamante notified and urine reflex with culture ordered and collected. Family at bedside. * Hope Ribeiro RN - 11/10/2013 10:51 AM CDT Problem: High Risk for CONTRACTING EXECUTIVE Injury Related to Hypertension Goal: Blood Pressure Remains within Acceptable Limits Outcome: Ongoing Goal: Fluid and electrolyte balance are achieved/maintained Outcome: Ongoing Goal: No Symptoms of Headache or Visual Disturbances Outcome: Ongoing Goal: Maintains Level of Consciousness Outcome: Ongoing Goal: Absence of Seizures No seizures or other Central Nervous System damage is evident. Outcome: Ongoing Goal: Serum Magnesium Level is within Therapeutic Level Outcome: Ongoing Problem: Respiratory Status High risk for altered respiratory function: Decreased related to excessive fluid volume (pulmonary edema). Goal: Vital Signs are medically acceptable Outcome: Ongoing Goal: Signs/Symptoms of Pulmonary Edema Avoided Outcome: Ongoing Goal: Respiratory rate will be within normal limits for patient. Outcome: Ongoing Problem: High Risk for Hepatic Injury Goal: Signs/Symptoms of Hepatic Injury are Avoided No signs or symptoms of hepatic injury or rupture are observed. Outcome: Ongoing Goal: Jaundice is Documented Outcome: Ongoing Goal: Normal or Improving Liver Function Studies Outcome: Ongoing Problem: High Risk for Impaired Well Being Goal: Viable is Safely Delivered Outcome: Ongoing Problem: Anxiety and Fear Anxiety and fear related to risk of harm to self and fetus. Goal: Anxiety is at manageable level Outcome: Ongoing Goal: Verbalizes Understanding of Disease Process and Treatment Outcome: Ongoing Goal: Family Members Act as Support System Outcome: Ongoing * Isaac Devries MD - 11/10/2013 9:16 AM CDT MFM Attending Progress Note Addendum Date: 11/10/2013 I have seen and examined the patient with the resident/fellow and agree with their documentation. Subjective: Cait Mathews is a 18 y.o. at 33w0d weeks gestation The patient's is complicated by: Patient Active Problem List Diagnosis ??? Tobacco abuse ??? Preeclampsia ??? Breech presentation ??? Supervision of high-risk The patient reports no bleeding, cramping/contractions or leaking of fluid. Movement: normal. Objective: Temp (24hrs) Max:98.5 ??F BP 151/94 Temp(Src) 98.5 ??F Resp 20 Wt 202 lb (91.627 kg) BMI 39.45 kg/m2 Physical Exam: General: alert, cooperative, no distress Extremities: normal, non-tender bilaterally Abdomen: gravid, soft, non-tender Assessment/Plan: Cait Mathews is a 18 y.o. at 33w0d weeks gestation. 1. Preeclampsia: Severe BP on admission. May need to repeat 24 hour urine protein as may have had UTI. 2. Breech presentation: May need delivery depending on clinical circumstances Isaac Devries MD * Aguilar Bustamante MD - 11/10/2013 7:11 AM CDT R1 Antepartum Progress Note Date: 11/10/2013 Hospital Day: 2 Subjective: Cait Mathews is a 18 y.o. G 1 P 0 A 0 at 33w0d weeks gestation. Patient reports denies headache, chest pain, SOB, abdominal pain, ctx, bleeding, abdominal pain. Movement: normal. Objective: BP 151/91 Temp(Src) 97.3 ??F Resp 20 Wt 202 lb (91.627 kg) BMI 39.45 kg/m2 Temp (24hrs) Max:98.1 ??F Systolic (30hrs), Av mmHg, Min:118 mmHg, Max:170 mmHg Diastolic (30hrs), Av mmHg, Min:50 mmHg, Max:92 mmHg Intake/Output Summary (Last 24 hours) at 11/10/13 0711 Last data filed at 11/10/13 0517 Gross per 24 hour Intake 3796.5 ml Output 2400 ml Net 1396.5 ml Physical Exam: General: alert, cooperative, no distress Lungs: clear to auscultation bilaterally Heart: regular rate and rhythm Abdomen: gravid, NT Extremities: normal, non-tender bilaterally NST: See procedure note TOCO: Problem List: Patient Active Problem List Diagnosis Date Noted ??? Tobacco abuse 11/09/2013 ??? Preeclampsia 11/09/2013 ??? Breech presentation 11/09/2013 ??? Supervision of high-risk 11/09/2013 Assessment: 18 y.o. at 33w0d 1. Pre-eclampsia 1. Severely elevated BP on presentation s/p IV Labetalol 20 mg x 2 2. Pr/Cr ratio 8.8 3. Mg for seizure prophylaxis 4. Betamethasone 12 mg q 24 hours for two doses for the purpose of improved outcomes 5. Adalat 30 XL qd started for elevated BP 6. Neonatology consultation 7. Formal sonogram in the AM with dopplers 2. Breech presentation 1. Cait Mathews agreed to section. Consent form was signed. 1. Tobacco use 3. surveillance 2. GBS obtained 3. Obtain PNL and dating US from Dr. Rodriguez 2. FWB reassuring 1479br(11.6) st /2-3 Aguilar Bustamante 11/10/2013 7:11 AM * Cornel Walsh RN - 11/10/2013 5:22 AM CDT Shift Summary: Patient resting quietly on and off throughout shift. VSS, current b/p 151/91, and denies any blurred vision, or epigastric pain. Reported headache before going to sleep, but currently resting. Magnesium Sulfate infusing at 50ml/hr. Patient reports good movement, and denies any leaking of fluid, cramping, contractions, or vaginal bleeding. No other needs at this time. Will continue to monitor patient. * Cornel Walsh RN - 11/10/2013 2:24 AM CDT Problem: High Risk for CONTRACTING EXECUTIVE Injury Related to Hypertension Goal: Blood Pressure Remains within Acceptable Limits Outcome: Ongoing Goal: Fluid and electrolyte balance are achieved/maintained Outcome: Ongoing Goal: No Symptoms of Headache or Visual Disturbances Outcome: Ongoing Goal: Maintains Level of Consciousness Outcome: Ongoing Goal: Absence of Seizures No seizures or other Central Nervous System damage is evident. Outcome: Ongoing Cait Mathews calls for help when necessary and has family members in the room who are eager toassist her with getting to the bathroom. Goal: Serum Magnesium Level is within Therapeutic Level Outcome: Ongoing Problem: Respiratory Status High risk for altered respiratory function: Decreased related to excessive fluid volume (pulmonary edema). Goal: Vital Signs are medically acceptable Outcome: Ongoing Cait Mathews coughs and deep breathes independently. Goal: Signs/Symptoms of Pulmonary Edema Avoided Outcome: Ongoing Goal: Respiratory rate will be within normal limits for patient. Outcome: Ongoing Problem: High Risk for Hepatic Injury Goal: Signs/Symptoms of Hepatic Injury are Avoided No signs or symptoms of hepatic injury or rupture are observed. Outcome: Ongoing Goal: Jaundice is Documented Outcome: Ongoing Goal: Normal or Improving Liver Function Studies Outcome: Ongoing Problem: High Risk for Impaired Well Being Goal: Viable Infant is Safely Delivered Outcome: Ongoing Problem: Anxiety and Fear Anxiety and fear related to risk of harm to self and fetus. Goal: Anxiety is at manageable level Outcome: Ongoing Goal: Verbalizes Understanding of Disease Process and Treatment Outcome: Ongoing Goal: Family Members Act as Support System Outcome: Ongoing * Yvonne Kang RN - 11/09/2013 6:56 PM CDT Shift report: pt c/o slight JEFFERSON. Relieved by reglan/benadryl however made her feel dizzy and IV burn. Pt states she feels much better. VSS. 2/2 reflexes. Lungs clears. Reports positive fm. Denies contxs, LOF, vaginal bleeding. Assessment per flow sheet. Meds per MAR. Instructed to notify nurse of any changes in status. * Lloyd Bourne RN - 11/09/2013 4:30 PM CDT Patient doing well, states +ve movement, denies any ctx, vs wnl, bp 130s-150s/70-80, pt remains on magnesium sulfate tolerating well, c/o of some jefferson, meds given as indicated. Patient denies anylof, bleeding or any other concerns. Orders received to transfer patient to , patient transferredto [id number] in a w/c, change of shift report given to FLEX Russell. * Ksenia Mg I - 11/09/2013 11:27 AM CDT CLINICAL NUTRITION Pt screened per nutrition Leveling of Care protocol: and not here to deliver. Height: 5' (152.4 cm) Weight: 202 lb (91.627 kg) Pre- Weight: 169 lb (76.658 kg) Pre- BMI: 33.07 Recent Labs Component Name 11/08/132046 ALBUMIN 2.2* Recent Labs Component Name 11/08/132046 HGB 12.0 HCT 34.8* Agree with PNV + A woman admitted at 32w6d with Estimated Date of Delivery: 12/29/13. Weight gain of 33 # which is excessive , ideal weight gain is 8 # for an obese woman , goal of 0-11# at term Prepregnancy BMI indicates Obesity Class 1. Alb: moderate depletion likely due to pre- eclampsia and proteinuria . Skin/Wound: intact. Appetite : good appetite at home , eats 2-3 meals + snacks. Will provide with between meal nourishments , discouraged ham sandwich she wanted at bedtime. Diet Order:Current diet order: Regular diet P.O.intake for past 48 hours % Meal Taken Av % Min: 100 % Max: 100 % Nutrition recommendation: agree with current nutrition order Pt was provided [facility] educational material Nutrition and , Food for a Healthy Baby . Discussed healthy eating during including recommendations for [place] nutrients of , food safety, and once mom has delivered. All questions answered and food preferences taken. Will follow per low nutritional risk protocol. Ksenia Mg DTR 11/09/2013 11:27 AM * Lloyd Bourne RN - 11/09/2013 9:24 AM CDT Problem: High Risk for CONTRACTING EXECUTIVE Injury Related to Hypertension Goal: Blood Pressure Remains within Acceptable Limits Outcome: Ongoing Blood pressure remains within acceptable limits for Ms. Chavira. Check BP every 2 hours in the first 48 hours when on magnesium sulfate and every 4 hours thereafter. documented in this encounter H&P Notes * Ludwin Menjivar MD - 11/09/2013 5:35 AM CDT R3 History and Physical Chief Complaint Patient presents with ??? Blood Pressure Cait Mathews is a 18 y.o. , at 32w6d weeks gestation for an EDC of Estimated Date of Delivery: 12/29/13 by undocumented 1st or 2nd trimester u/s. PNC with Dr. Rodriguez. Her current is significant for: elevated BP Patient Active Problem List Diagnosis ??? Tobacco abuse ??? Preeclampsia ??? Breech presentation ??? Supervision of high-risk Patient presents for evaluation from [place] after finding out that she has elevated protein in her urine. She has been receiving PNC from Dr. Rodriguez in [place]. Elevated BP has been noted with proteinuria on her office urine dips. This prompted 24 hour urine collection that revealed >300 mg of protein perthe patient. She was told to present to [facility] for further eval. On presentation, the patient denies s ymptoms of JEFFERSON, abdominal pain. She notes bilateral pedal edema that has been worsening. Denies visual changes. No ctx, lof, or vb. FM normal. Obstetrical history: OB History Para Term AB TAB SAB Ectopic Multiple Living 1 0 0 0 0 0 0 0 0 0 # Outc Date GA Lbr Abdullahi/2nd Wgt Sex Del Anes PTL Lv 1 Current Gynelogical history: STDs: Previous h/o Chlamydia Paps: No history of abnormal paps. Medical History: Past Medical History Diagnosis Date ??? Chlamydia contact, treated Surgeries: Past Surgical History Procedure Laterality Date ??? Tonsillectomy Allergies: No Known Allergies Current Medications: Prior to Admission medications Medication Sig Start Date End Date Taking? Authorizing Provider Vit-Fe Fumarate-FA ( VITAMIN) 28-0.8 MG tablet Take 1 Tab by mouth once daily. YesHistorical Provider, Family History: No family history on file. No history of infants born with defects No history of family members with bleeding disorders Social History: Social History Smoking Status: Former Smoker Packs/Day: 0.25 Years: Smokeless Status: Never Used Alcohol Use: No Drug Use: No Sexual Activity: Not on file Review of Systems: No JEFFERSON/vision change/RUQ pain No SOB/CP No nausea/ vomitting/ fevers/ chills/ diarrhea No dysuria/ hematuria/ urinary urgency/ irritation Physical Exam: BP 146/82 Temp(Src) 97.8 ??F Resp 20 Wt 202 lb (91.627 kg) BMI 39.45 kg/m2 General: alert, cooperative, no distress Lungs: clear to auscultation bilaterally Heart: regular rate and rhythm, S1, S2 normal, no murmur, click, rub or gallop Extremities: normal, non-tender bilaterally Abdomen: gravid, obese, soft, NTTP, no guarding or rebound tenderness Neuro: CN intact grossly, 1+ bilateral patellar DTRs Myron's 4 # Cervical Exam deferred evaluation: Baseline FHR: 135 per minute. moderate variability, reactive, no decelerations [place]: none Ultrasound at Bedside: Presentation: breech KOREY: 11.6 cm Placenta localization: posterior EFW 1479 gm Picture taken Lab Review: Results for orders placed during the hospital encounter of 11/08/13 CBC W AUTO DIFFERENTIAL Result Value Range WBC 11.7 (*) 4.4-10.7 x10^9/L RBC 4.00 3.80-5.20 x10^12/L Hgb 12.0 12.0-15.6 gm/dL HCT 34.8 (*) 35.9-45.5 % MCV 87.0 80.7-98.3 fl MCH 30.0 26.7-34.0 pg MCHC 34.5 30.8-35.9 gm/dL Plt Ct 237 153-416 x10^9/L RDW-CV 12.8 12.1-14.9 % MPV 11.9 9.4-12.9 fl Neutro 71.1 44.0-73.0 % Lymph 19.3 (*) 20.0-43.0 % Sibley 8.3 5.0-13.0 % Eos 0.6 0.0-6.0 % Baso 0.3 0.0-2.0 % Immature Grans 0.4 0-1 % Neutro Abs 8.28 (*) 2.01-7.14 x10^9/L Lymph Abs 2.25 1.07-3.94 x10^9/L Sibley Abs 0.97 0.26-1.07 x10^9/L Eosin Abs 0.07 0-0.47 x10^9/L Baso Abs 0.03 0-0.08 x10^9/L Immature Grans Abs 0.05 0.00-0.06 x10^9/L NRBC Auto 0 COMPREHENSIVE METABOLIC PANEL Result Value Range Glucose 100 74-106 mg/dL Sodium 141 136-145 mmol/L Potassium 3.7 3.5-5.1 mmol/L Chloride 109 (*) 98-107 mmol/L CO2 22 22-31 mmol/L Calcium 9.0 8.5-10.1 mg/dL Anion Gap 10 5-15 mmol/L BUN 8 7-21 mg/dL Creatinine 0.35 (*) 0.50-1.30 mg/dL eGFR MDRD >60 >60 mL/min/1.73m2 eGFR MDRD AFR AMR >60 >60 mL/min/1.73m2 Alk Phos 187 (*) 38-126 U/L ALT/SGPT 21 12-78 U/L AST/SGOT 17 5-40 U/L Protein Total 5.5 (*) 6.4-8.2 gm/dL Albumin 2.2 (*) 3.4-5.0 gm/dL Bili Total 0.1 (*) 0.2-1.0 mg/dL URIC ACID BLOOD Result Value Range Uric Acid 6.6 (*) 2.5-6.2 mg/dL LDH BLOOD Result Value Range LDH 153 100-200 U/L URINALYSIS ROUTINE W/REFLEX TO CULTURE Result Value Range Color UA Yellow Straw, Yellow, Dark Yellow Clarity UA Cloudy Specific Means UA 1.022 1.005-1.030 pH UA 6.5 5.0-8.0 pH Protein UA 4+ (*) Negative Blood UA Trace (*) Negative Leukocyte UA Trace (*) Negative Nitrite UA Negative Negative Glucose UA Negative Negative Ketone UA Negative Negative Bili UA Negative Negative Urobilinogen UA 0.2 0.1-1.0 EU/dL WBC UA Auto 20-50 (*) 0-2, 2-5 #/hpf RBC UA Auto 5-10 (*) 0-2, 2-5 #/hpf Epithelial Cell UA Auto 5-10 (*) 0-2, 2-5 #/hpf Bacteria UA Auto 2+ (*) None seen Hyaline Casts UA Auto 2-5 (*) 0-2 #/lpf Reflex Status Culture to follow PROTEIN CREATININE RATIO URINE RANDOM PNL Result Value Range Protein Urine mg/dL 918.4 Creat Urine mg/dL 104.26 Protein/Creat Ratio Urine 8.81 TYPE + SCREEN PANEL Result Value Range ABO Patient Type B Rh Patient Type Positive Antibody Screen Negative BLOOD TYPE VERIFICATION Result Value Range ABO Patient Type B Rh Patient Type Positive Assessment/Plan: 18 y.o. G 1 P 0 A 0 at 32w6d weeks gestation that presents for s/s of preeclampsia Patient Active Problem List Diagnosis Date Noted ??? Tobacco abuse 11/09/2013 ??? Preeclampsia 11/09/2013 ??? Breech presentation 11/09/2013 ??? Supervision of high-risk 11/09/2013 1. Pre-eclampsia 1. Severely elevated BP on presentation s/p IV Labetalol 20 mg x 2 2. Pr/Cr ratio 8.8 3. Admit to [facility]U for continuous monitoring, administration of magnesium sulfate for seizure prophylaxis 4. Betamethasone 12 mg q 24 hours for two doses for the purpose of improved outcomes 5. Adalat 30 XL qd started for elevated BP 6. Neonatology consultation 7. Formal sonogram in the AM with dopplers 2. Breech presentation I discussed with Cait Mathews the risks of section including but not limited to: bleeding, infection, damage to vital organs(bladder, bowel, etc), need for blood transfusion or blood products (which she did accept), DVT, PE, , and possible hysterectomy if necessary for lifesavingpurposes. Cait Mathews agreed to section. Consent form was signed. 3. Tobacco use 1. Encourage cessation, which was reported 4. Supervision of 1. GBS obtained 2. Obtain PNL and dating US from Dr. Rodriguez 5. FWB reassuring 1479br(11.6) st 11/08- Discussed with Dr. Mikel Menjivar MD 11/09/2013 5:37 AM Associated attestation - Candace Peacock MD - 11/09/2013 1:31 PM CDT Teaching Attending Admission Note I have interviewed and examined the patient, and discussed the assessment and plan of care with theresident/fellow. Available records were reviewed. I agree with the findings and plan of care as outlined in the resident/fellow notes, with the following addendum: In brief, my findings include: 18 y.o. G 1 P 0 A 0 Female, at 32w6d weeks gestation by ULISES Estimated Date of Delivery: 12/29/13, admitted for suspected preeclampsia. Called by her doctor yesterday based on 24 hour urine result, andadvised to come in. Arrived about 8 PM last evening and admitted from [facility]. We do not have her records. Her so far has been complicated by: Patient Active Problem List Diagnosis Date Noted ??? Tobacco abuse 11/09/2013 ??? Preeclampsia 11/09/2013 ??? Breech presentation 11/09/2013 ??? Supervision of high-risk 11/09/2013 She reports: no bleeding, cramping/contractions or leaking of fluid and no headache, scotomata, or epigastric pain. Movement: normal. Exam: A physical examination was performed with the following barakat findings: BP 170/91 Temp(Src) 97.6 ??F Resp 20 Wt 202 lb (91.627 kg) BMI 39.45 kg/m2 General: alert, cooperative, no distress Skin: warm and dry Extremities: trace edema Neuro: reflexes 2+ Abdomen: gravid, obese, soft NT Pertinent laboratory results are as follows: Recent Labs Component Name 11/08/13 2047 WBC 11.7* RBC 4.00 HGB 12.0 HCT 34.8* MCV 87.0 MCHC 34.5 RDWCV 12.8 PLTCOUNT 237 NEUTPCT 71.1 LYMPHPCT 19.3* MONOCYTPCT 8.3 EOSINPCT 0.6 BASOPHILPCT 0.3 GRANSIMMPCT 0.4 LYMPHABS 2.25 MONOCYTABS 0.97 EOSINABS 0.07 BASOABS 0.03 IMMGRANSABS 0.05 NRBCAUTO 0 Recent Labs Component Name 11/08/13 2047 SODIUM 141 POTASSIUM 3.7 CHLORIDE 109* CO2 22 BUN 8 CREATININE 0.35* GLUCOSE 100 CALCIUM 9.0 ALBUMIN 2.2* ALKPHOS 187* ALT 21 AST 17 TBIL 0.1* TPROT 5.5* EGFR >60 Recent Labs Component Name 11/08/13 2047 URICACID 6.6* Relevant findings are as follows: reactive tracing, normal fluid Impression: The following maternal and/or problems are identified: 1. IUP (Intrauterine ) at 32w6d 2. Suspect preeclampsia 3. Obesity, primigravida as risk factors Counseling today included the following: We discussed likely hospitalization until delivery. No need for emergent delivery at this time with reassuring status and BPs controlled, without sx. Plan: As outlined in resident note Complete database Candace Peacock MD documented in this encounter Procedure Notes * Shruthi Koroma MD - 11/17/2013 11:03 AM CDTProcedure(s): NONSTRESS TEST NST 11/17/13 Start 0918 Stop 0952 Non-Stress Test (NST) Cait Mathews [id number] 11/18/2013 8:51 AM Indications: Preeclampsia Interpretation: Fetus A: Baseline: 130s beats/minute mod variability, reactive Contractions: none Decelerations: none Recommend: continue testing as scheduled Shruthi Koroma MD Associated attzachary - Gustavo Armendariz MD - 11/18/2013 9:08 AM CDT Attending Physician I have reviewed the tracing and concur with the interpretation of the above procedures. Assessment: Reactive tracing. Plan: kick counts. Follow up studies as clinically indicated. * Sumaya Hudson MD - 11/16/2013 11:30 PM CDTProcedure(s): NON-STRESS TEST Start: 3 End: 2305 R3 Non-Stress Test (NST) Cait Mathews [id number] Indications: Severe PreE Interpretation: Fetus A: Baseline: 125 beats/minute heart variability: moderate reactive Decelerations: none Contractions: none Recommendations: Continue monitoring as scheduled. Sumaya Hudson MD Associated Gustavo Nieves MD - 11/17/2013 11:24 PM CDT Attending Physician I have reviewed the tracing and concur with the interpretation of the above procedures. Assessment: Reactive tracing Plan: kick counts. Follow up studies as clinically indicated. Gustavo Armendariz MD * Sumaya Hudson MD - 11/16/2013 5:21 PM CDTProcedure(s): NONSTRESS TEST NST 11/16/13 Start 1622 Stop 1653 R3 Non-Stress Test (NST) Cait Mathews [id number] Indications: Severe PreE Interpretation: Fetus A: Baseline: 130 beats/minute heart variability: moderate reactive Decelerations: none Contractions: none Recommendations: Continue monitoring as scheduled. Sumaya Hudson MD Associated attestmallory - Gustavo Armendariz MD - 11/17/2013 11:24 PM CDT Attending Physician I have reviewed the tracing and concur with the interpretation of the above procedures. Assessment: Reactive tracing Plan: kick counts. Follow up studies as clinically indicated. Gustavo Armendariz MD * Sumaya Hudson MD - 11/16/2013 9:16 AM CDTProcedure(s): NONSTRESS TEST NST 11/16/13 Start 0732 Stop 0803 R3 Non-Stress Test (NST) Cait Mathews [id number] Indications: Severe PreE Interpretation: Fetus A: Baseline: 130 beats/minute heart variability: moderate reactive Decelerations: none Contractions: none Recommendations: Continue monitoring as scheduled. Sumaya Hudson MD Associated attzachary - Gustavo Armendariz MD - 11/17/2013 11:24 PM CDT Attending Physician I have reviewed the tracing and concur with the interpretation of the above procedures. Assessment: Reactive tracing Plan: kick counts. Follow up studies as clinically indicated. Gustavo Armendariz MD * Sumaya Hudson MD - 11/16/2013 7:18 AM CDT R3 Non-Stress Test (NST) Cait Mathews [id number] Indications: Severe Preeclampsia Interpretation: Fetus A: Baseline: 130 beats/minute heart variability: moderate reactive Decelerations: none Contractions: none Recommendations: Continue monitoring as scheduled. Sumaya Hudson MD Associated Gustavo Nieves MD - 11/16/2013 11:07 PM CDT Attending Physician I have reviewed the tracing and concur with the interpretation of the above procedures. Assessment: Reactive tracing Plan: kick counts. Follow up studies as clinically indicated. Gustavo Armendariz MD * Sumaya Hudson MD - 11/15/2013 7:43 AM CDT R3 Non-Stress Test (NST) Cait Mathews [id number] Indications: s/p fall Interpretation: Fetus A: Baseline: 130 beats/minute heart variability: moderate reactive Decelerations: none Contractions: none Recommendations: Continue monitoring as scheduled. Sumaya Hudson MD Associated attestation - Gustavo Armendariz MD - 11/15/2013 10:53 PM CDT Attending Physician I have reviewed the tracing and concur with the interpretation of the above procedures. Assessment: Reactive tracing. Plan: kick counts. Follow up studies as clinically indicated. Gustavo Armendariz MD * Jolanta Lin MD - 11/15/2013 3:11 AM CDTProcedure(s): NONSTRESS TEST Non-Stress Test (NST) Cait Mathews [id number] 11/15/2013 3:12 AM Indications: Patient Active Problem List Diagnosis ??? Tobacco abuse ??? Preeclampsia ??? Breech presentation ??? Supervision of high-risk Interpretation: Fetus A: Baseline: 130s beats/minute mod variability reactive Contractions: none Decelerations: Rare variable Impression: reassuring Recommend: continue testing as scheduled Jolanta Mcclendon MD 11/15/2013 3:12 AM Associated attzachary - Gustavo Armendariz MD - 11/15/2013 10:53 PM CDT Attending Physician I have reviewed the tracing and concur with the interpretation of the above procedures. Assessment: Reactive tracing. Plan: kick counts. Follow up studies as clinically indicated. Gustavo Armendariz MD * Sumaya Hudson MD - 11/13/2013 6:02 PM CDTProcedure(s): NONSTRESS TEST NST START 1723 STOP 1754 R3 Non-Stress Test (NST) Cait Mathews [id number] Indications: PreEclampsia Interpretation: Fetus A: Baseline: 140 beats/minute heart variability: moderate reactive Decelerations: none Contractions: none Recommendations: Continue monitoring as scheduled. Sumaya Hudson MD Associated attestation - Jerry Lane MD - 11/15/2013 6:45 PM CDT I have reviewed the non-stress test(s) and/or ultrasound images. I agree with the interpretations and/or biometries as documented. Chad Lane MD * Sumaya Hudson MD - 11/13/2013 10:54 AM CDTProcedure(s): NONSTRESS TEST 11-13-13 Start 1019 End 1054 NST R3 Non-Stress Test (NST) Cait Mathews [id number] Indications: PreEclampsia Interpretation: Fetus A: Baseline: 140 beats/minute heart variability: moderate reactive Decelerations: none Contractions: none Recommendations: Continue monitoring as scheduled. Sumaya Hudson MD Associated attzachary - Jerry Lane MD - 11/15/2013 6:45 PM CDT I have reviewed the non-stress test(s) and/or ultrasound images. I agree with the interpretations and/or biometries as documented. Chad Lane MD * Sumaya Hudson MD - 11/12/2013 5:35 PM CDTProcedure(s): NONSTRESS TEST 11/12/13 Begin: 1659 End: 1735 R3 Non-Stress Test (NST) Cait Mathews [id number] Indications: PreEclampsia Interpretation: Fetus A: Baseline: 135 beats/minute heart variability: moderate reactive Decelerations: none Contractions: none Recommendations: Continue monitoring as scheduled. Sumaya Hudson MD Associated Gustavo Nieves MD - 11/16/2013 11:08 PM CDT Attending Physician I have reviewed the tracing and concur with the interpretation of the above procedures. Assessment: Reactive tracing Plan: kick counts. Follow up studies as clinically indicated. Gustavo Armendariz MD * Sumaya Hudson MD - 11/12/2013 11:59 AM CDTProcedure(s): NON-STRESS TEST NST:11/12/13 Start:1019 Stop:1055 R3 Non-Stress Test (NST) Cait Mathews [id number] Indications: PreEclampsia Interpretation: Fetus A: Baseline: 135 beats/minute heart variability: moderate reactive Decelerations: none Contractions: irritable Recommendations: Continue monitoring as scheduled. Sumaya Hudson MD Associated Gustavo Nieves MD - 11/16/2013 11:08 PM CDT Attending Physician I have reviewed the tracing and concur with the interpretation of the above procedures. Assessment: Reactive tracing Plan: kick counts. Follow up studies as clinically indicated. Gustavo Armendariz MD * Jennifer Liao MD - 11/12/2013 12:14 AM CDTProcedure(s): NONSTRESS TEST NST 11/11/13 Start 2240 Stop 2320 Non-Stress Test (NST) Cait Mathews [id number] 11/12/2013 8:53 AM Indications: Preeclampsia Interpretation: Fetus A: Baseline: 140s beats/minute mod variability reactive, although tracing is difficult to follow Contractions: none Decelerations: Broken up variables Recommend: continue testing as scheduled Jennifer Liao MD Associated attIsaac Willis MD - 11/12/2013 12:00 PM CDT MFM Attending NST reviewed. Agree with interpretation. MD Maria Elena Carias Emma R, MD - 11/11/2013 4:48 PM CDTProcedure(s): NON-STRESS TEST NST Date: 11/11/13 Time: 3476-7791 Non-Stress Test (NST) Cait Mathews [id number] 11/12/2013 8:54 AM Indications: Preeclampsia Interpretation: Fetus A: Baseline: 130s beats/minute mod variability reactive Contractions: occ irritability Decelerations: none Recommend: continue testing as scheduled Jennifer Liao MD Associated traci - Isaac Devries MD - 11/12/2013 12:00 PM CDT MFM Attending NST reviewed. Agree with interpretation. MD Maria Elena Carias Emma R, MD - 11/11/2013 11:04 AM CDTProcedure(s): NON-STRESS TEST NST Date: 11/11/13 Time: 2148-6577 Non-Stress Test (NST) Cait Mathews [id number] 11/11/2013 4:47 PM Indications: Preeclampsia Interpretation: Fetus A: Baseline: 120s beats/minute mod variability reactive Contractions: irritability Decelerations: none Recommend: continue testing as scheduled Jennifer Liao MD Associated Isaac Ferraro MD - 11/12/2013 12:00 PM CDT MFM Attending NST reviewed. Agree with interpretation. MD Maria Elena Carias Emma R, MD - 11/10/2013 11:33 PM CDTProcedure(s): NONSTRESS TEST 11/10/13 Start:2221 Stop:2307 Non-Stress Test (NST) Cait Mathews [id number] 11/12/2013 8:57 AM Indications: Preeclampsia Interpretation: Fetus A: Baseline: 120s beats/minute mod variability reactive Contractions: Mild irriitability Decelerations: none Recommend: continue testing as scheduled Jennifer Liao MD Associated attestation - Isaac Devries MD - 11/12/2013 12:00 PM CDT MFM Attending NST reviewed. Agree with interpretation. MD Maria Elena Carias Emma R, MD - 11/10/2013 5:45 PM CDTProcedure(s): NONSTRESS TEST NST: 11/10/2013 Start: 1641 Finish: 1723 Non-Stress Test (NST) Cait Mathews [id number] 11/11/2013 4:53 PM Indications: Preeclampsia Interpretation: Fetus A: Baseline: 120s beats/minute mod variability reactive Contractions: none Decelerations: none Recommend: continue testing as scheduled Jennifer Liao MD Associated attestmallory - Isaac Devries MD - 11/12/2013 12:00 PM CDT MFM Attending NST reviewed. Agree with interpretation. MD Maria Elena Carias Emma R, MD - 11/10/2013 10:47 AM CDTProcedure(s): NONSTRESS TEST NST: 11/10/2013 Start: 1005 Finish:1038 Non-Stress Test (NST) Cait Mathews [id number] 11/11/2013 4:54 PM Indications: Preeclampsia Interpretation: Fetus A: Baseline: 120s beats/minute mod variability reactive Contractions: none Decelerations: none Recommend: continue testing as scheduled Jennifer Liao MD Associated attestation - Isaac Devries MD - 11/12/2013 12:00 PM CDT MFM Attending NST reviewed. Agree with interpretation. Isaac Devries MD * Jennifer Liao MD - 11/10/2013 12:46 AM CDTProcedure(s): NONSTRESS TEST 11/09/13 Start:2237 Stop:2336 Non-Stress Test (NST) Cait Friedmaners [id number] 11/10/2013 8:40 AM Indications: Preeclampsia Interpretation: Fetus A: Baseline: broken strip, but appears to be 140-150ss beats/minute mod variability reactive, prolonged accels Contractions: none Decelerations: occ prolonged decels to 120s Recommend: continue testing as scheduled Jennifer Liao MD Associated attestmallory - Isaac Devries MD - 11/10/2013 4:46 PM CDT MFM Attending NST reviewed. Agree with interpretation. Isaac Devries MD * Gabbi Main RDMD - 11/09/2013 1:41 PM CDT Patient was seen for ultrasound 11/09/2013 Patient was taken off the NST at 105p, Moinca was notified The ultrasound was completed at 135p, Lloyd was notified Position - breech KOREY - 8.7 EFW - 1705 g S/D - 2.5 Pi .91 CL - BPP - Heart rate-132 bpm Comments- Ultrasound completed by as * Ludwin Menjivar MD - 11/08/2013 10:20 PM CDT Bedside Obstetric Ultrasound Report Cait Mathews [id number] 11/08/2013 10:20 PM No LMP recorded. Patient is . Estimated Date of Delivery: 12/29/13 by: ultrasound (US) 32w5d Indications: PreE Method: abdominal ?? Number: 1 of 1 ?? Position: breech ?? Placental Location: posterior ?? Amniotic Fluid: normal ?? KOREY: 11.6 Cardiac activity: Present ?? EGA 30w6d by:Biparietal Diameter (BPD), Head Circumference (HC), Abdominal Circumference (AC) and Femur Length (FL) ?? Estimated Weight: 1479 gram. Comments: Normal AFV, EFW above. Recommendations: Needs complete ultrasound. Primary Gum Remover: Dr. Michael Menjivar MD Associated attestation - Candace Peacock MD - 11/09/2013 1:20 PM CDT I have reviewed the images and concur with the findings and interpretation. Candace Peacock MD documented in this encounter Consult Notes * Pat Matos RN - 11/18/2013 5:07 PM CDTAssociated Order(s): IP CONSULT TO See note in Plan of Care. Pat Matos RN, IBCLC * Janessa Coppola MD - 11/09/2013 10:14 AM CDTAssociated Order(s): IP CONSULT TO NEONATOLOGY Neonatology Attending Consultation Note History: Ms. Mathews is a 18 y.o.yo female who presents at 32w6d gestation with pre- eclampsia. Her blood type is B positive. Her other screening labs are: rubella immune, RPR nonreactive, HBsAg nondetected, HIV negative, and GBS pending. The ULISES is 12/29/13, determined by undocumented first or second trimester ultrasound. Patient reports no use of tobacco, alcohol or illicit drugs during . UDS negative. Medications include vitamins, nifedipine, labetalol, magnesium. The patient stated that her unborn child is a female and will be named Leroy Valadez . complications include: 1. induced HTN, now with preeclampsia: Proteinuria noted on office UA. No known hypertension before . Bilateral pedal edema worsening. dopplers with reversed EDF: She is not ruptured. Received betamethasone on 11/08 and is due for second dose on 11/09. She is receiving nifedipine, labetalol and magnesium. 2. GBS unknown: culture pending. 3. Tobacco use 4. Prior h/o chlamydia contact s/p treatment 5. Breech position 6. EFW is 1479 gm. Family History: No history of congenital heart defects. Mother is adopted and reports being born 6 weeks early. Video Player Mechanic: Dr. Gala Singh Discussion: Neonatology was requested to consult with Ms. Mathews regarding expectation of delivery at 32/33 weeks gestation. I met with Ms. Mathews. I outlined the pediatric/neonatology presence at delivery and possible need for early stabilization in the delivery room. Once Leroy is without need for further stabilization, Ms. Mathews would like to hold her and understands that this might be a possibility in the delivery room or otherwise would happen in the NICU, depending on Leroy's status. We discussed the need for transfer to theNICU at [facility] for further management. I discussed adverse outcome risks associated with 33 wk prematurity with mother at bedside and she had many appropriate questions related to prematurity complications. We discussed the small possibility of respiratory problems, which should be less due to Leroy's gestational age and the administration of betamethasone, possibility of intubation or respiratory support with nasalcannula or CPAP. We discussed immature feeding pattern, IV nutrition and nasogastric feeding, advancements of feedings, the benefits of breast milk, and the prematurity complication of NEC. I reviewed possible IV access including umbilical lines, pIV and PICC. I discussed the possibility of sepsis and susceptibility of infection, use of antibiotics and cultures. I outlined monitoring including blood draws, jaundice and phototherapy, and thermoregulation and isolettes. We discussed thatthe anticipated date of discharge would likely be around the due date with some babies going home slightly before or after their due date. Ms. Mathews expressed understanding of the counseling. She indicated that she is amenable to and pumping for the baby. Neonatology will plan to be at delivery given the gestational age. Thank you for the opportunity to meet with Ms. Mathews. 20 minutes spent in direct consultation with the patient. Janessa Coppola MD Attending Shade Matcher documented in this encounter Nursing Notes * Pat Hernandes RN - 11/21/2013 6:31 PM CDT This note was copied from the chart of Baby Girl Cait Mathews. Met with Cait today both in her room and at baby's bedside. She continues to pump regularly and was starting to get 2 ounces with each session. In NICU she was bottle feeding baby her EBM. States she does not wish to directly breastfeed, but will pump her milk and feed it per bottle to baby. Reviewed the importance of pumping at least 8 times every 24 hours, including at least one time at night. She has electric breastpump for home use, and denies any further questions. Pat Hernandes RN, MSN, IBCLC * Pat Hernandes RN - 11/20/2013 12:57 PM CDT Cait states she may be going home today. Reviewed again importance of pumping 8-10 times each 24hrs. Reviewed milk storage and transport. Enc to bring pump parts with her when visiting baby so she can pump in NICU pumping room. Gave her electric breastpump, provided by her [place] Medicaid benefits. Reviewed set up and instructions for use. She verbalizes understanding and denies any questions. Enc to ask for consult with Sole Cementer as needed while baby in NICU. Pat Hernandes RN, MSN, IBCLC * Pat Matos RN - 11/19/2013 1:00 PM CDT Consult: Assisted patient with breast feeding baby at this time. She is attempting with 24mm nipple shield which was given by nurse. Switched to size 20mm shield which fits better. Baby latches without shieldfor a few sucks and then releases nipple. Discussed use of nipple shield, milk transfer, and a baby. Baby latches well in football position with shield for remainder of feeding. Also showed mom how to hand express to help baby latch on. She has expressible colostrum. She states she is pumping regularly. Encouragement and support given. Pat Matos RN, BSN, IBCLC * Pat Matos RN - 11/18/2013 5:14 PM CDT This note was copied from the chart of Baby Elizabeth Mathews. Consult: Patient holds baby skin to skin. Baby roots and sucks at the breast. Few small drops of colostrum expressed on baby's lips. Effective vs ineffective latch and positioning demonstrated and discussed. Pat Matos RN, BSN, IBCLC * Pat Matos RN - 11/18/2013 1:53 PM CDT Consult: Patient started pumping for baby in NICU. Her goal is to try pumping/breast feeding for a few days to see how it goes. Benefits of breast feeding discussed. Reviewed pumping with patient, including cleaning/sterilization of pump parts, set-up, labeling and storage of milk, and frequency/duration ofpumping at least 8 times per day, every 3 hours for 15min. Hand expression demonstrated and mom watched DVD. Pumping assessed and recommended flange size 24mm instead of the 27mm she had been using. Colostrum and milk supply/maintenance also reviewed and encouraged to breast feed baby when able as well as holding skin to skin. Patient has [place] Medicaid. Physician order obtained for breast pump and plan to get approval and fax prior to discharge from hospital. Pat Matos RN, BSN, IBCLC documented in this encounter OR Notes * Operative - Shruthi Koroma MD - 11/17/2013 4:26 PM CDT 11/17/2013 4:26 PM Section Procedure Note Pre-operative Diagnosis: PreEclampsia, IUGR, Malpresentation Post-operative Diagnosis: same Procedure: primary low transverse section Surgeon: Gustavo Armendariz MD Assistants: Shruthi Koroma MD, Sumaya Hudson MD, Silvia Vasquez MD Anesthesia: Spinal with Duramorph Complications: none Findings: Information for the patient's : Reid Baby Girl Cait [[id number]] Date of 11/17/2013 Time of : 3:48 PM Sex: Female Weight: 1790 g (3 lb 15.1 oz) (1 min): 5 (5 min): 8 (10 min): Normal appearring gravid uterus, tubes and ovaries. Estimated Blood Loss: 400 mls Drains: chapin catheter Total IV Fluids: 2000 mls UOP: 100mls Procedure: The patient was taken to the operating room where Spinal anesthesia was found to be adequate. She was prepared and draped in the normal sterile fashion in the dorsal supine position with aleftward tilt. A Pfannenstiel skin incision was made with the scalpel and carried through to the underlying layer a fascia. The fascia was incised in the midline and the incision extended laterally bluntly. The rectus muscles were in the midline, and the peritoneum identified and entered bluntly. The peritoneal incision was then extended superiorly and inferiorly with good visualization of thebladder. The bladder blade was inserted and the vesicouterine peritoneum identified. The lower uterine segment incised in a transverse fashion with the scalpel. The uterine incision was then extended laterally bluntly. The bladder blade was removed and the was delivered from a breech presentation using the typical breech maneuvers. The cord clamped and cut. The infant was handed to waitingpediatricians. Cord gases were sent. The placenta was then removed manually; the uterus exteriorized and cleared of all clot and debris.The uterine incision was repaired with 1-0 Monocryl in a running, locked fashion. A second layer ofthe same suture was used to obtain excellent hemostasis. The uterus was returned to the abdomen, and Seprafilm was placed over the the hysterotomy. The fascia was reapproximated with Looped PDS in a running fashion. The skin was closed with Monocryl. The patient tolerated the procedure well. Sponge, lap, and needle counts were correct times two. Two grams of Cefotetan/Ancef was given at cord clamp. The patient was taken to the recovery room in stable condition. Dr. Armendariz was present for the entire procedure. Shruthi Koroma MD 11/17/2013 4:26 PM Associated attestation - Gustavo Armendariz MD - 11/17/2013 11:37 PM CDT Attending Physician note: I have reviewed the summary by Dr Koroma. I was present and supervised/observed the entire caesarean delivery. My findings include: Primary CD at 34w0d for severe preeclampsia and malpresentation(sonia breech). Time out performed prior to delivery. Sequential devices functional and preoperative ancef given. Well developed ORLY, with minimal amount of clear amniotic fluid at delivery. Soft tissue dystocia during the breech delivery relieved with nitroglycerine. NICU present at delivery for resuscitation with reassuring cord gases. Magnesium for seizure prophylaxis. Gustavo Armendariz MD documented in this encounter Miscellaneous Notes * Delivery Summary - Elizabet Bee RN - 11/17/2013 4:50 PM CDT Delivery Summary Post Delivery /Para: OB History Para Term AB TAB SAB Ectopic Multiple Living 1 1 0 1 0 0 0 0 0 1 Estimated Due Date: Estimated Date of Delivery: 12/29/13 Estimated Gestational Age: 34w0d Conditions: Pre-eclampsia GBS: Negative Number of Antibiotic Doses: 0 Transcribed Labs: Blood Type (Manually Reproduced): B RH (Manually Reproduced): Positive Syphilis Serology (Manually Reproduced): Negative HIV (Manually Reproduced): Negative Hepatitis B Surface Antigen (Manually Reproduced): Negative Rubella Status ( Manually Reproduced): Immune Steroids Received: Full Course Delivery Data Mother: Labor Events Augmentation Method: None Induction Method: None Intrapartum Events Anesthesia/Analgesia: Spinal Labor Complications: None Prior Uterine Surgery: None Indications: Presentation Delivery Estimated Blood Loss: 400 Delivery Data: Information for the patient's : Veto Mathews [[id number]] Estimated Gestational Age: Information for the patient's mother: Cait Mathews [[id number]] 34w0d Delivery Details Date of 11/17/2013 Time of : 3:48 PM Delivery Type: , Low Transverse Delivering Clinician: GUSTAVO ARMENDARIZ Presentation Delivery Presentation: Breech Membranes Membrane Status: Artificial Rupture Date: 11/17/2013 Rupture Time: 3:43 PM Fluid Description: Clear Placenta Data Placenta Delivery Date and Time: 11/17/2013 3:49 PM Placenta Appearance/Removal: Intact Manual Removal Sent to Pathology Cord Data Cord Vessels: 3 Vessels Cord Complications: None Cord Blood Disposition: Discard Gases Sent: Yes Venous Arterial [place] Stabilization Suction Method: Suction Trap Bulb Secretions: Airway Support: CPAP via T-Piece Positive Pressure Ventilation Intubation: Tube Size Performed by: Placement Validated by: , Tube Secured by: Tube Secured at: Number of Attempts: Tolerance: Thermoregulation Support: Cap Warm Blankets Overhead Warmer More Interventions Needed: Yes, See 's Chart Assessment (1 min): 5 (5 min): 8 Delivery Outcome Living: Yes Sex: Female Measurements Weight: 1790 g (3 lb 15.1 oz) Length: 16.14 inches Head Circumference: 11.42 inches Mother's Initial Feeding Choice Human Milk [16] Present at Delivery: Ernesto-FRANKLIN was present for delivery. documented in this encounter Plan of Treatment Scheduled Orders Name Type Priority Associated Diagnoses Order Schedule BLOOD GASES CORD CHAU (ISTAT) POCT No Acknowledgement Routine ONCE for 1 Occurrences starting 11/17/2013 until 11/17/2013 documented as of this encounter Procedures Procedure Name Priority Date/Time Associated Diagnosis Comments IMAGING/RADIOLOGY/XRAY RESULTS ORDER 09/06/2014 2:02 AM CDT LAB RESULTS ORDER 11/22/2013 5:4 8 PM CDT CBC W AUTO DIFFERENTIAL AM Draw 11/18/2013 5:39 AM CDT SECTION 11/17/2013 5:31 PM CDT PATHOLOGY TISSUE EXAM (STL) Routine 11/17/2013 3:58 PM CDT BLOOD GASES CORD ART (ISTAT) Routine 11/17/2013 3:53 PM CDT TYPE + SCREEN PANEL Routine 11/17/2013 5 :46 AM CDT CBC W AUTO DIFFERENTIAL Routine 11/17/2013 5:46 AM CDT CBC W AUTO DIFFERENTIAL STAT 11/15/2013 8:06 AM CDT COMPREHENSIVE METABOLIC PANEL STAT 11/15/2013 8:06 AM CDT PT PTT PANEL Routine 11/14/2013 9:50 PM CDT FIBRINOGEN ACTIVITY Routine 11/14/2013 9 :50 PM CDT TYPE + SCREEN PANEL Routine 11/14/2013 3 :33 PM CDT CBC W AUTO DIFFERENTIAL Routine 11/14/2013 3:33 PM CDT CULTURE URINE Routine 11/13/2013 11:51 AM CDT TYPE + SCREEN PANEL Routine 11/12/2013 1 0:42 AM CDT CBC W AUTO DIFFERENTIAL Routine 11/12/2013 10:42 AM CDT COMPREHENSIVE METABOLIC PANEL Routine 11/12/2013 10:42 AM CDT URINALYSIS REFLEX MICROSCOPIC REFLEX CULTURE Routine 11/10/2013 6:10 PM CDT SONOGRAM - COMPLETE Routine 11/09/2013 1 :09 PM CDT CHLAMYDIA + GC AMPLIFIED PROBE STAT 11/09/2013 1:14 AM CDT CULTURE STREP B STAT 11/08/2013 10:25 PM CDT Preeclampsia, third trimester (HCC) BLOOD TYPE VERIFICATION Routine 11/08/2013 10:10 PM CDT URINALYSIS REFLEX MICROSCOPIC REFLEX CULTURE STAT 11/08/2013 8:47 PM CDT Elevated BP URIC ACID BLOOD STAT 11/08/2013 8:47 PM CDT Elevated BP CULTURE URINE Routine 11/08/2013 8:47 PM CDT Elevated BP TYPE + SCREEN PANEL STAT 11/08/2013 8 :47 PM CDT Elevated BP CBC W AUTO DIFFERENTIAL STAT 11/08/2013 8:47 PM CDT Elevated BP COMPREHENSIVE METABOLIC PANEL STAT 11/08/2013 8:47 PM CDT Elevated BP PROTEIN CREATININE RATIO URINE RANDOM PNL STAT 11/08/2013 8:47 PM CDT Elevated BP LDH BLOOD STAT 11/08/2013 8:47 PM CDT Elevated BP documented in this encounter Results * IMAGING/RADIOLOGY/XRAY RESULTS ORDER (09/06/2014 2:02 AM CDT) Anatomical Region Laterality Modality Other Scanned Document IMAGING * LAB RESULTS ORDER (11/22/2013 5:48 PM CDT) Provider Unknown LAB - THERAPEUTIC DR MCELROY MONITORING ORDERABLES * (ABNORMAL) CBC W AUTO DIFFERENTIAL (11/18/2013 5:39 AM CDT) WBC 15.7(H) 4.4 - 10.7 x10^9/L 11/18/2013 6:08 AM CDT [facility] RBC 4.30 3.80 - 5.20 x10^12/L 11/18/2013 6:08 AM CDT [facility] Hemoglobin 12.7 12.0 - 15.6 gm/dL 11/18/2013 6:08 AM CDT [facility] Hematocrit 38.2 35.9 - 45.5 % 11/18/2013 6:08 AM CDT [facility] MCV 88.8 80.7 - 98.3 fl 11/18/2013 6:08 AM CDT [facility] MCH 29.5 26.7 - 34.0 pg 11/18/2013 6:08 AM CDT [facility] MCHC 33.2 30.8 - 35.9 gm/dL 11/18/2013 6:08 AM CDT [facility] Platelet Count 230 153 - 416 x10^9/L 11/18/2013 6:08 AM CDT [facility] RDW-CV 13.2 12.1 - 14.9 % 11/18/2013 6:08 AM CDT [facility] MPV 11.0 9.4 - 12.9 fl 11/18/2013 6:08 AM CDT [facility] Neutrophils % 84.5(H) 44.0 - 73.0 % 11/18/2013 6:08 AM CDT [facility] Lymphocytes % 10.4(L) 20.0 - 43.0 % 11/18/2013 6:08 AM CDT [facility] Monocytes % 4.5(L) 5.0 - 13.0 % 11/18/2013 6:08 AM CDT [facility] Eosinophils % 0.2 0.0 - 6.0 % 11/18/2013 6:08 AM CDT [facility] Basophils % 0.1 0.0 - 2.0 % 11/18/2013 6:08 AM CDT [facility] Immature Granulocytes 0.3 0 - 1 % 11/18/2013 6:08 AM CDT [facility] Neutrophil Absolute 13.22(H) 2.01 - 7.14 x10^9/L 11/18/2013 6:08 AM CDT [facility] Lymphocytes Absolute 1.62 1.07 - 3.94 x10^9/L 11/18/2013 6:08 AM CDT [facility] Monocytes Absolute 0.71 0.26 - 1.07 x10^9/L 11/18/2013 6:08 AM CDT [facility] Eosinophils Absolute 0.03 0 - 0.47 x10^9/L 11/18/2013 6:08 AM CDT [facility] Basophils Absolute 0.02 0 - 0.08 x10^9/L 11/18/2013 6:08 AM CDT [facility] Immature Granulocytes Absolute 0.05 0.00 - 0.06 x10^9/L 11/18/2013 6:08 AM CDT [facility] nRBC Auto 0 /100 WBC 11/18/2013 6:08 AM CDT [facility] Blood BLOOD SPECIMEN / Unknown Lab Venipuncture / Unknown 11/18/2013 5:39 AM CDT 11/18/2013 5:48 AM CDT Sumaya Hudson MD LAB - HEMATOLOGY ORDERABLES Performing Organization Address [facility] Co de Phone Number [facility] [address] [place] [phone] * (ABNORMAL) BLOOD GASES CORD CHAU (ISTAT) (11/17/2013 3:58 PM CDT) Blood CORD BLOOD SPECIMEN / Unknown 11/17/2013 3:58 PM CDT 11/17/2013 4:04 PM CDT Viet Marquez MD LAB - POINT OF CARE ORDERABLES Performing Organization Address City/[facility] Co de Phone Number [facility] [address] [place] [phone] * GROSS + MICRO EXAM (STL) (11/17/2013 3:58 PM CDT) Case Report Surgical Pathology Report ? Case: [id number] ? Authorizing Provider: ??Filiberto Ray MD ?Collected: ? 11/17/2013 03:58 PM ? Ordering Location: ? [facility] 5 LDR ? Received: ?11/18/2013 05:20 AM ? Pathologist: ? Jhoana Velez MD ? Signed Out: ?11/20/2013 01:45 PM (Final) Specimen: ?Placenta 3rd Trimester ? 11/20/2013 1:45 PM CDT [facility] Final Diagnosis 1. Placenta, delivery: -- Third trimester placenta -- Three-vessel umbilical cord -- Unremarkable membranes -- Scattered calcifications DARRIN/jatin 11/20/2013 1:45 PM CDT [facility] Gross Description Submitted fixed in formalin in one container for gross and microscopic examination labeled with the patient's name Cait Mathews, placenta, is a placenta with attached segment of umbilical cord and membranes. The placental disc measures 17 x 12 cm and is up to 1.5 cm in thickness. ??The umbilical cord segment is 2 cm in length and up to 0.8 cm in diameter. ??There are no knots of the umbilical cord and the surface is yellow-white and glistening. The umbilical cord attachment is central. ??There are three umbilical cord vessels. ??The membranes are torn and the membrane appearance is red-pink and transparent. ??The surface has a blue hue. ??The maternal surface has areas of loosely adherent coagula. ??Section surfaces show a spongy red-pink placenta. ??The placenta weighs 250 gm. ??Sections are submitted as follows: A1 - Umbilical cord and membranes A2-A3 - Placental parenchyma PW/scs 11/20/2013 1:45 PM CDT [facility] Microscopic Description Sections of the umbilical cord show three vessels with no evidence of vasculitis or funisitis. ??Sections of the membranes show unremarkable histology and are free of chorioamnionitis. ??Meconium is not identified. ??Sections of the placental disc show mature chorionic villi with scattered calcifications. ??Hemorrhage or infarction is not seen. ?? GC/jatin 11/20/2013 1:45 PM T [facility] Pathology/Cytolo gy ENTIRE PLACENTA / Unknown 11/17/2013 3:58 PM CDT 11/18/2013 5:20 AM CDT Filiberto Ray MD LAB - PATHOLOGY/CYTO LOGY ORDERABLES Performing Organization Address City/State/[facility] Co de Phone Number [facility] [address] [place] [address] * (ABNORMAL) BLOOD GASES CORD ART (ISTAT) (11/17/2013 3:53 PM CDT) pH Cord Arterial POCT 7.25 7.20 - 7.34 pH 11/19/2013 10:52 AM [facility] pCO2 Cord Arterial POCT 57.0(H) 45 - 55 mmHg 11/19/2013 10:52 AM [facility] pO2 Cord Arterial POCT 9(L) 12 - 25 mmHg 11/19/2013 10:52 AM [facility] HCO3 Cord Arterial POCT 24.8 15 - 29 mmol/L 11/19/2013 10:52 AM [facility] BE Cord Arterial POCT -4(L) -2.9 - 8.3 mmol/L 11/19/2013 10:52 AM [facility] TCO2 Cord Arterial POCT 27 mmol/L 11/19/2013 10:52 AM [facility] O2 Saturation Cord Art % Calc POCT 7 % 11/19/2013 10:52 AM [facility] Site CORD ART 11/19/2013 10:52 AM CDT [facility] Sample iSTAT CORD A 11/19/2013 10:52 AM CDT [facility] Blood CORD BLOOD SPECIMEN / Unknown 11/17/2013 3:53 PM CDT 11/19/2013 10:52 AM CDT Viet Marquez MD LAB - POINT OF CARE ORDERABLES Performing Organization Address City/State/[facility] Co de Phone Number [facility] [address] [place] [address] * (ABNORMAL) CBC W AUTO DIFFERENTIAL (11/17/2013 5:46 AM CDT) WBC 13.4(H) 4.4 - 10.7 x10^9/L 11/17/2013 6:25 AM CDT [facility] RBC 4.46 3.80 - 5.20 x10^12/L 11/17/2013 6:25 AM CDT [facility] Hemoglobin 13.2 12.0 - 15.6 gm/dL 11/17/2013 6:25 AM CDT [facility] Hematocrit 39.5 35.9 - 45.5 % 11/17/2013 6:25 AM CDT [facility] MCV 88.6 80.7 - 98.3 fl 11/17/2013 6:25 AM CDT [facility] MCH 29.6 26.7 - 34.0 pg 11/17/2013 6:25 AM CDT [facility] MCHC 33.4 30.8 - 35.9 gm/dL 11/17/2013 6:25 AM CDT [facility] Platelet Count 263 153 - 416 x10^9/L 11/17/2013 6:25 AM CDT [facility] RDW-CV 13.1 12.1 - 14.9 % 11/17/2013 6:25 AM CDT [facility] MPV 11.7 9.4 - 12.9 fl 11/17/2013 6:25 AM CDT [facility] Neutrophils % 74.4(H) 44.0 - 73.0 % 11/17/2013 6:25 AM CDT [facility] Lymphocytes % 17.2(L) 20.0 - 43.0 % 11/17/2013 6:25 AM CDT [facility] Monocytes % 7.2 5.0 - 13.0 % 11/17/2013 6:25 AM CDT [facility] Eosinophils % 0.7 0.0 - 6.0 % 11/17/2013 6:25 AM CDT [facility] Basophils % 0.1 0.0 - 2.0 % 11/17/2013 6:25 AM CDT [facility] Immature Granulocytes 0.4 0 - 1 % 11/17/2013 6:25 AM CDT [facility] Neutrophil Absolute 9.95(H) 2.01 - 7.14 x10^9/L 11/17/2013 6:25 AM CDT [facility] Lymphocytes Absolute 2.31 1.07 - 3.94 x10^9/L 11/17/2013 6:25 AM CDT [facility] Monocytes Absolute 0.97 0.26 - 1.07 x10^9/L 11/17/2013 6:25 AM CDT [facility] Eosinophils Absolute 0.09 0 - 0.47 x10^9/L 11/17/2013 6:25 AM CDT [facility] Basophils Absolute 0.02 0 - 0.08 x10^9/L 11/17/2013 6:25 AM T [facility] Immature Granulocytes Absolute 0.06 0.00 - 0.06 x10^9/L 11/17/2013 6:25 AM T [facility] nRBC Auto 0 /100 WBC 11/17/2013 6:25 AM CDT [facility] Blood BLOOD SPECIMEN / Unknown Lab Venipuncture / Unknown 11/17/2013 5:46 AM CDT 11/17/2013 6:09 AM CDT Gertrudis Thompson MD LAB - HEMATOLOGY ORD ERABLES [facility] [address] [place] [address] * TYPE + SCREEN PANEL (11/17/2013 5:46 AM CDT) ABO B 11/17/2013 6:58 AM CDT [facility] Rh Type Positive 11/17/2013 6:58 AM CDT [facility] Antibody Screen Negative 11/17/2013 6:58 AM CDT [facility] Miscellaneous samples (specimen) BLOOD SPECIMEN / Unknown Lab Venipuncture / Unknown 11/17/2013 5:46 AM CDT 11/17/2013 6:09 AM CDT Gertrudis Thompson MD LAB - BLOOD BANK ORD ERABLES [facility] * (ABNORMAL) CBC W AUTO DIFFERENTIAL (11/15/2013 8:06 AM CDT) WBC 15.6(H) 4.4 - 10.7 x10^9/L 11/15/2013 8:35 AM CDT [facility] RBC 4.37 3.80 - 5.20 x10^12/L 11/15/2013 8:35 AM CDT [facility] Hemoglobin 13.3 12.0 - 15.6 gm/dL 11/15/2013 8:35 AM CDT [facility] Hematocrit 38.2 35.9 - 45.5 % 11/15/2013 8:35 AM CDT [facility] MCV 87.4 80.7 - 98.3 fl 11/15/2013 8:35 AM CDT [facility] MCH 30.4 26.7 - 34.0 pg 11/15/2013 8:35 AM CDT [facility] MCHC 34.8 30.8 - 35.9 gm/dL 11/15/2013 8:35 AM CDT [facility] Platelet Count 266 153 - 416 x10^9/L 11/15/2013 8:35 AM CDT [facility] RDW-CV 12.9 12.1 - 14.9 % 11/15/2013 8:35 AM CDT [facility] MPV 11.6 9.4 - 12.9 fl 11/15/2013 8:35 AM CDT [facility] Neutrophils % 73.2(H) 44.0 - 73.0 % 11/15/2013 8:35 AM CDT [facility] Lymphocytes % 18.9(L) 20.0 - 43.0 % 11/15/2013 8:35 AM CDT [facility] Monocytes % 6.4 5.0 - 13.0 % 11/15/2013 8:35 AM CDT [facility] Eosinophils % 0.9 0.0 - 6.0 % 11/15/2013 8:35 AM CDT [facility] Basophils % 0.2 0.0 - 2.0 % 11/15/2013 8:35 AM CDT [facility] Immature Granulocytes 0.4 0 - 1 % 11/15/2013 8:35 AM CDT [facility] Neutrophil Absolute 11.45(H) 2.01 - 7.14 x10^9/L 11/15/2013 8:35 AM CDT [facility] Lymphocytes Absolute 2.95 1.07 - 3.94 x10^9/L 11/15/2013 8:35 AM CDT [facility] Monocytes Absolute 1.00 0.26 - 1.07 x10^9/L 11/15/2013 8:35 AM CDT [facility] Eosinophils Absolute 0.14 0 - 0.47 x10^9/L 11/15/2013 8:35 AM CDT [facility] Basophils Absolute 0.03 0 - 0.08 x10^9/L 11/15/2013 8:35 AM CDT [facility] Immature Granulocytes Absolute 0.07(H) 0.00 - 0.06 x10^9/L 11/15/2013 8:35 AM CDT [facility] nRBC Auto 0 /100 WBC 11/15/2013 8:35 AM CDT [facility] Blood BLOOD SPECIMEN / Unknown Venipuncture / Unknown 11/15/2013 8:06 AM CDT 11/15/2013 8:26 AM CDT Sumaya Hudson MD LAB - HEMATOLOGY ORDERABLES Performing Organization Address City/State/[facility] Co de Phone Number [facility] [address] [place] [address] * (ABNORMAL) COMPREHENSIVE METABOLIC PANEL (11/15/2013 8:06 AM CDT) [facility] Glucose 78 74 - 106 mg/dL 11/15/2013 8:53 AM CDT [facility] Sodium 140 136 - 145 mmol/L 11/15/2013 8:53 AM CDT [facility] Potassium 4.2 3.5 - 5.1 mmol/L 11/15/2013 8:53 AM CDT [facility] Chloride 108(H) 98 - 107 mmol/L 11/15/2013 8:53 AM CDT [facility] CO2 22 22 - 31 mmol/L 11/15/2013 8:53 AM CDT [facility] Calcium 8.7 8.5 - 10.1 mg/dL 11/15/2013 8:53 AM CDT [facility] Anion Gap 10 5 - 15 mmol/L 11/15/2013 8:53 AM CDT [facility] BUN 10 7 - 21 mg/dL 11/15/2013 8:53 AM CDT [facility] Creatinine 0.36(L) 0.50 - 1.30 mg/dL 11/15/2013 8:53 AM CDT [facility] eGFR by MDRD >60 >60 mL/min/1.7 3m2 11/15/2013 8:53 AM CDT [facility] eGFR by MDRD >60 >60 mL/min/1.7 3m2 11/15/2013 8:53 AM CDT [facility] Alkaline Phosphatase 192(H) 38 - 126 U/L 11/15/2013 8:53 AM CDT [facility] ALT 23 12 - 78 U/L 11/15/2013 8:53 AM CDT [facility] AST 17 5 - 40 U/L 11/15/2013 8:53 AM CDT [facility] Protein Total 5.3(L) 6.4 - 8.2 gm/dL 11/15/2013 8:53 AM CDT [facility] Albumin 1.8(L) 3.4 - 5.0 gm/dL 11/15/2013 8:53 AM T [facility] Bilirubin Total 0.1(L) 0.2 - 1.0 mg/dL 11/15/2013 8:53 AM T [facility] Blood BLOOD SPECIMEN / Unknown Venipuncture / Unknown 11/15/2013 8:06 AM CDT 11/15/2013 8:26 AM CDT Sumaya Hudson MD LAB - CHEMISTRY O RDERABLES [facility] [address] [place] [address] * FIBRINOGEN ACTIVITY (11/14/2013 9:50 PM CDT) Fibrinogen 438 150 - 450 mg/dL 11/14/2013 10:42 PM CDT [facility] Blood BLOOD SPECIMEN / Unknown Venipuncture / Unknown 11/14/2013 9:50 PM CDT 11/14/2013 10:16 PM CDT Janessa Morin MD LAB - COAGULATION OR DERABLES Performing Organization Address [facility] Co de Phone Number [facility] [address] [place] [phone] * (ABNORMAL) PT PTT PANEL (11/14/2013 9:50 PM CDT) PT <9.2(L) 9.4 - 11.4 sec 11/14/2013 10:44 PM CDT [facility] INR <0.860(L) 0.89 - 1.07 11/14/2013 10:44 PM CDT [facility] PTT 24.4 24.0 - 33.0 sec 11/14/2013 10:44 PM CDT [facility] Blood BLOOD SPECIMEN / Unknown Venipuncture / Unknown 11/14/2013 9:50 PM CDT 11/14/2013 10:16 PM CDT Narrative [facility] - 11/14/2013 10:44 PM CDT Conventional Anticoagulant Therapy INR Reference Ranges: ??2.0-3.0 Intensive Anticoagulant Therapy INR Reference Ranges: ? 2.5-3.5 Janessa Morin MD LAB - COAGULATION OR DERABLES Performing Organization Address [facility] [[email or web address]] de Phone Number [facility] [address] [place] [phone] * (ABNORMAL) CBC W AUTO DIFFERENTIAL (11/14/2013 3:33 PM CDT) WBC 14.5(H) 4.4 - 10.7 x10^9/L 11/14/2013 4:29 PM CDT [facility] RBC 4.48 3.80 - 5.20 x10^12/L 11/14/2013 4:29 PM CDT [facility] Hemoglobin 13.3 12.0 - 15.6 gm/dL 11/14/2013 4:29 PM CDT [facility] Hematocrit 39.1 35.9 - 45.5 % 11/14/2013 4:29 PM CDT [facility] MCV 87.3 80.7 - 98.3 fl 11/14/2013 4:29 PM [facility] MCH 29.7 26.7 - 34.0 pg 11/14/2013 4:29 PM [facility] MCHC 34.0 30.8 - 35.9 gm/dL 11/14/2013 4:29 PM [facility] Platelet Count 287 153 - 416 x10^9/L 11/14/2013 4:29 PM [facility] RDW-CV 12.9 12.1 - 14.9 % 11/14/2013 4:29 PM [facility] MPV 11.9 9.4 - 12.9 fl 11/14/2013 4:29 PM [facility] Neutrophils % 74.8(H) 44.0 - 73.0 % 11/14/2013 4:29 PM [facility] Lymphocytes % 18.0(L) 20.0 - 43.0 % 11/14/2013 4:29 PM [facility] Monocytes % 5.5 5.0 - 13.0 % 11/14/2013 4:29 PM [facility] Eosinophils % 0.7 0.0 - 6.0 % 11/14/2013 4:29 PM [facility] Basophils % 0.2 0.0 - 2.0 % 11/14/2013 4:29 PM [facility] Immature Granulocytes 0.8 0 - 1 % 11/14/2013 4:29 PM [facility] Neutrophil Absolute 10.81(H) 2.01 - 7.14 x10^9/L 11/14/2013 4:29 PM T [facility] Lymphocytes Absolute 2.61 1.07 - 3.94 x10^9/L 11/14/2013 4:29 PM [facility] Monocytes Absolute 0.80 0.26 - 1.07 x10^9/L 11/14/2013 4:29 PM [facility] Eosinophils Absolute 0.10 0 - 0.47 x10^9/L 11/14/2013 4:29 PM [facility] Basophils Absolute 0.03 0 - 0.08 x10^9/L 11/14/2013 4:29 PM T [facility] Immature Granulocytes Absolute 0.12(H) 0.00 - 0.06 x10^9/L 11/14/2013 4:29 PM CDT [facility] nRBC Auto 0 /100 WBC 11/14/2013 4:29 PM CDT [facility] Blood BLOOD SPECIMEN / Unknown Venipuncture / Unknown 11/14/2013 3:33 PM CDT 11/14/2013 4:12 PM CDT Shruthi Koroma MD LAB - HEMATOLOGY ORDERABLES Performing Organization Address City/[facility]/ZIP Co de Phone Number [facility] [address] [place] [address] * TYPE + SCREEN PANEL (11/14/2013 3:33 PM CDT) ABO B 11/14/2013 4:57 PM CDT [facility] Rh Type Positive 11/14/2013 4:57 PM CDT [facility] Comment:History check perfor med. No retype required. Antibody Screen Negative 11/14/2013 4:57 PM CDT [facility] Miscellaneous samples (specimen) BLOOD SPECIMEN / Unknown Venipuncture / Unknown 11/14/2013 3:33 PM CDT 11/14/2013 4:12 PM CDT Shruthi Koroma MD LAB - BLOOD BANK ORDERABLES Performing Organization Address City/[facility] Co de Phone Number [facility] * (ABNORMAL) CULTURE URINE (11/13/2013 11:51 AM CDT) Culture >100,000 CFU/mL Enterobacter cloacae complex(A) ALESSANDRO 11/15/2013 9:05 AM CDT [facility] Culture >100,000 CFU/mL Enterococcus species(A) ALESSANDRO 11/15/2013 9:05 AM CDT [facility] Urine URINE SPECIMEN OBTAINED BY CLEAN CATCH PROCEDURE / Unknown Collection / Unknown 11/13/2013 11:51 AM CDT 11/13/2013 12:25 PM CDT Narrative [facility] - 11/15/2013 9:05 AM CDT Enterobacter, Citrobacter, and Serratia may develop resistance during prolonged therapy with third-generation cephalosporins as a result of derepression of AMP C beta-lactamase. Therefore, isolates that are initially susceptible may become resistant within 3 or 4 days after initiation of therapy. Testing of repeat isolates may be warranted. Organism Antibiotic Method Susceptibility Enterobacter cloacae complex Amikacin ALESSANDRO <=2 ug/mL: Susceptible Enterobacter cloacae complex Cefepime ALESSANDRO <=1 ug/mL: Susceptible Enterobacter cloacae complex Ceftriaxone ALESSANDRO <=1 ug/mL: Susceptible Enterobacter cloacae complex Ciprofloxacin ALESSANDRO <=0.25 ug/mL: Susceptible Enterobacter cloacae complex Gentamicin ALESSANDRO <=1 ug/mL: Susceptible Enterobacter cloacae complex Meropenem ALESSANDRO <=0.25 ug/mL: Susceptible Enterobacter cloacae complex Nitrofurantoin ALESSANDRO 128 ug/mL: Resistant Enterobacter cloacae complex Piperacillin-tazobactam ALESSANDRO <=4 ug/mL: Susceptible Enterobacter cloacae complex Tobramycin ALESSANDRO <=1 ug/mL: Susceptible Enterobacter cloacae complex Trimethoprim-sulfamethoxaz ole ALESSANDRO <=20 ug/mL: Susceptible Enterococcus species Ampicillin ALESSANDRO <=2 ug/mL: Susceptible Enterococcus species Ciprofloxacin ALESSANDRO <=0.5 ug/mL: Susceptible Enterococcus species Doxycycline ALESSANDRO 8 ug/mL: Intermediate Enterococcus species Gentamicin 500 ALESSANDRO SYN-S ug/mL: Susceptible Enterococcus species Levofloxacin ALESSANDRO 1 ug/mL: Susceptible Enterococcus species Linezolid ALESSANDRO 2 ug/mL: Susceptible Enterococcus species Nitrofurantoin ALESSANDRO <=16 ug/mL: Susceptible Enterococcus species Streptomycin 1000 ALESSANDRO SYN-S ug/mL: Susceptible Enterococcus species Tetracycline ALESSANDRO >=16 ug/mL: Resistant Enterococcus species Vancomycin ALESSANDRO 1 ug/mL: Susceptible Comment: Streptomycin Synergy susceptible predicts synergy between ampicillin, penicillin, or vancomycin plus streptomycin when isolates are susceptible to these agents. Combination therapy with ampicillin, penicillin or vancomycin(for susceptible strains) plus an aminoglycoside is usually indicated for serious enterococcal infections such as endocarditis, UNLESS high-level resistance to both gentamicin and streptomycin is documented. Gentamicin Synergy susceptible predicts synergy between ampicillin, penicillin, or vancomycin plus gentamicin when isolates are susceptible to these agents. Combination therapy with ampicillin, penicillin, or vancomycin (for susceptible strains) plus an aminoglycoside is usually indicated for serious enterococcal infections such as endocarditis UNLESS high-level resistance to both gentamicin and streptomycin is documented. Sumaya Hudson MD LAB - MICROBIOLOG Y ORDERABLES [facility] [address] [place] [address], [facility] * TYPE + SCREEN PANEL (11/12/2013 10:42 AM CDT) ABO B 11/12/2013 11:54 AM CDT [facility] Rh Type Positive 11/12/2013 11:54 AM CDT [facility] Comment:History check perfor med. No retype required. Antibody Screen Negative 11/12/2013 11:54 AM CDT [facility] Miscellaneous samples (specimen) BLOOD SPECIMEN / Unknown Venipuncture / Unknown 11/12/2013 10:42 AM CDT 11/12/2013 10:59 AM CDT Isaac Devries MD LAB - BLOOD BANK ORD ERABLES Performing Organization Address City/[facility]/ZIP Co de Phone Number [facility] * (ABNORMAL) COMPREHENSIVE METABOLIC PANEL (11/12/2013 10:42 AM CDT) Glucose 105 74 - 106 mg/dL 11/12/2013 11:26 AM [facility] Sodium 135(L) 136 - 145 mmol/L 11/12/2013 11:26 AM [facility] Potassium 3.8 3.5 - 5.1 mmol/L 11/12/2013 11:26 AM [facility] Chloride 103 98 - 107 mmol/L 11/12/2013 11:26 AM [facility] CO2 22 22 - 31 mmol/L 11/12/2013 11:26 AM [facility] Calcium 8.7 8.5 - 10.1 mg/dL 11/12/2013 11:26 AM [facility] Anion Gap 10 5 - 15 mmol/L 11/12/2013 11:26 AM [facility] BUN 10 7 - 21 mg/dL 11/12/2013 11:26 AM [facility] Creatinine 0.52 0.50 - 1.30 mg/dL 11/12/2013 11:26 AM [facility] eGFR by MDRD >60 >60 mL/min/1.7 3m2 11/12/2013 11:26 AM [facility] eGFR by MDRD >60 >60 mL/min/1.7 3m2 11/12/2013 11:26 AM CDT [facility] Alkaline Phosphatase 178(H) 38 - 126 U/L 11/12/2013 11:26 AM CDT [facility] ALT 23 12 - 78 U/L 11/12/2013 11:26 AM CDT [facility] AST 15 5 - 40 U/L 11/12/2013 11:26 AM CDT [facility] Protein Total 5.1(L) 6.4 - 8.2 gm/dL 11/12/2013 11:26 AM CDT [facility] Albumin 1.9(L) 3.4 - 5.0 gm/dL 11/12/2013 11:26 AM CDT [facility] Bilirubin Total 0.2 0.2 - 1.0 mg/dL 11/12/2013 11:26 AM CDT [facility] Blood BLOOD SPECIMEN / Unknown Venipuncture / Unknown 11/12/2013 10:42 AM CDT 11/12/2013 10:58 AM CDT [facility] Eliu Devries MD LAB - CHEMISTRY SU [facility] Organization Address City/State/[facility] Co de Phone Number [facility] [address] [place] [address] * (ABNORMAL) CBC W AUTO DIFFERENTIAL (11/12/2013 10:42 AM CDT) WBC 14.3(H) 4.4 - 10.7 x10^9/L 11/12/2013 11:07 AM CDT [facility] RBC 4.19 3.80 - 5.20 x10^12/L 11/12/2013 11:07 AM CDT [facility] Hemoglobin 12.5 12.0 - 15.6 gm/dL 11/12/2013 11:07 AM CDT [facility] Hematocrit 37.0 35.9 - 45.5 % 11/12/2013 11:07 AM CDT [facility] MCV 88.3 80.7 - 98.3 fl 11/12/2013 11:07 AM CDT [facility] MCH 29.8 26.7 - 34.0 pg 11/12/2013 11:07 AM CDT [facility] MCHC 33.8 30.8 - 35.9 gm/dL 11/12/2013 11:07 AM [facility] Platelet Count 258 153 - 416 x10^9/L 11/12/2013 11:07 AM [facility] RDW-CV 12.9 12.1 - 14.9 % 11/12/2013 11:07 AM [facility] MPV 11.3 9.4 - 12.9 fl 11/12/2013 11:07 AM [facility] Neutrophils % 72.2 44.0 - 73.0 % 11/12/2013 11:07 AM [facility] Lymphocytes % 19.0(L) 20.0 - 43.0 % 11/12/2013 11:07 AM [facility] Monocytes % 7.0 5.0 - 13.0 % 11/12/2013 11:07 AM [facility] Eosinophils % 0.8 0.0 - 6.0 % 11/12/2013 11:07 AM [facility] Basophils % 0.2 0.0 - 2.0 % 11/12/2013 11:07 AM [facility] Immature Granulocytes 0.8 0 - 1 % 11/12/2013 11:07 AM [facility] Neutrophil Absolute 10.27(H) 2.01 - 7.14 x10^9/L 11/12/2013 11:07 AM [facility] Lymphocytes Absolute 2.71 1.07 - 3.94 x10^9/L 11/12/2013 11:07 AM [facility] Monocytes Absolute 1.00 0.26 - 1.07 x10^9/L 11/12/2013 11:07 AM [facility] Eosinophils Absolute 0.12 0 - 0.47 x10^9/L 11/12/2013 11:07 AM [facility] Basophils Absolute 0.03 0 - 0.08 x10^9/L 11/12/2013 11:07 AM [facility] Immature Granulocytes Absolute 0.12(H) 0.00 - 0.06 x10^9/L 11/12/2013 11:07 AM [facility] nRBC Auto 0 /100 WBC 11/12/2013 11:07 AM [facility] Blood BLOOD SPECIMEN / Unknown Venipuncture / Unknown 11/12/2013 10:42 AM CDT 11/12/2013 10:59 AM CDT Isaac Devries MD LAB - HEMATOLOGY ORD ERABLES [facility] [address] [place] [address] * (ABNORMAL) URINALYSIS ROUTINE W/REFLEX TO CULTURE (11/10/2013 6:10 PM CDT) Color UA Yellow Straw, Yellow, Dark Yellow 11/10/2013 6:28 PM CDT [facility] Clarity UA Clear 11/10/2013 6:28 PM CDT [facility] Specific Means UA 1.015 1.005 - 1.030 11/10/2013 6:28 PM CDT [facility] pH UA 6.5 5.0 - 8.0 pH 11/10/2013 6:28 PM CDT [facility] Protein UA 3+(A) Negative 11/10/2013 6:28 PM CDT [facility] Blood UA Negative Negative 11/10/2013 6:28 PM CDT [facility] Leukocyte UA Negative Negative 11/10/2013 6:28 PM CDT [facility] Nitrite UA Negative Negative 11/10/2013 6:28 PM CDT [facility] Glucose UA Negative Negative 11/10/2013 6:28 PM CDT [facility] Ketone UA Negative Negative 11/10/2013 6:28 PM CDT [facility] Bilirubin UA Negative Negative 11/10/2013 6:28 PM CDT [facility] Urobilinogen UA 0.2 0.1 - 1.0 EU/dL 11/10/2013 6:28 PM CDT [facility] WBC UA Auto 5-10(A) 0-2, 2-5 #/hpf 11/10/2013 6:28 PM CDT [facility] RBC UA Auto 2-5 0-2, 2-5 #/hpf 11/10/2013 6:28 PM CDT [facility] Epithelial Cell UA Auto 2-5 0-2, 2-5 #/hpf 11/10/2013 6:28 PM CDT [facility] Bacteria UA Auto 1+(A) None seen 11/10/2013 6:28 PM CDT [facility] Reflex Status Culture not indicated 11/10/2013 6:28 PM CDT [facility] Urine URINE SPECIMEN OBTAINED BY CLEAN CATCH PROCEDURE / Unknown Collection / Unknown 11/10/2013 6:10 PM CDT 11/10/2013 6:21 PM CDT Aguilar Bustamante MD LAB - URINALYSIS ORD ERABLES Performing Organization Address [facility]/State/[facility] Co de Phone Number [facility] [address] [place] [address] * SONOGRAM - COMPLETE (11/09/2013 1:09 PM CDT) Anatomical Region Laterality Modality Other 11/09/2013 1:09 PM CDT Narrative 11/09/2013 5:39 PM CDT ? [facility] ? [facility] ?PHONE: ??FAX: Pat. Name: ?CAIT MATHEWS Pat. No: ?[id number] Study Date: ?? 11/09/2013 ??1:09pm , Age: ? 1995, 18 Pregnancies: ?? 1 LMP: ?Unknown GA by US: ? 30w6d GA Selected: ??32w6d (From Known E) ULISES: ?12/29/2013 Referring MD: BISMARK RODRIGUEZ MD Hyster Driver: ??Gabbi Main RDMS Hist/Ind: ? Preeclampisa ?Obesity MEASUREMENTS & AGE ? GROWTH EVALUATION Measurement ??GA ? Range ? Srce %for GA Ratios ----- ---- ------- BPD ??7.8 cm 31w3d (50g0m-96l4s) Hadl BPD 30% FL/BPD 0.74 (0.71 - 0.87) HC ??27.1 cm 29w4d (02l1z-47s0e) Hadl HC ??<05 FL/AC ??0.21 (0.20 - 0.24) AC ??27.5 cm 31w4d (94u3n-78y0u) Hadl AC ??31% HC/AC ??0.98 (0.95 - 1.14) FL ?? 5.8 cm 30w4d (11i2n-08t8f) Hadl FL ??15% CI ? 0.84 (0.70 - 0.86) HL ?? 5.3 cm 30w6d (39q3s-59k0j) [place]rett HL ??18% GA for sonogram 30w6d (20r0w-33s5k) ?? Weight Estimate: based on (HL,BPD,HC,AC,FL) Avg ? Weight: 1684 gm (3751-6815) Hadlo ? : 3lbs, 11oz ? Normal: 2132 gm (1769- 2495) Hadlo ? Wt% ? <10 for 32w6d Heart Rate: 132 bpm Amniotic Fluid Index: 08.8cm (08.3-24.5) Q1: 1.9cm ??Q2: 1.9cm ??Q3: 3.1cm ??Q4: 1.9cm ?? DOPPLER Umbilical - Mid Cord S/D ??2.50 PI ?? 0.91 CLINICAL SUMMARY Study Number: ??1 A hernadez fetus is identified in breech presentation. ??The measurements today are consistent with less than expected size for the ULISES provided.. ??The ULISES selected is based on prior ultrasound examination. ??The amniotic fluid volume is at the lower limits of normal.. ??The placenta is fundal. ??The anatomy was not well visualized due to position, size, and poor acoustic properties.. ??The patient was advised that ultrasound does not allow detection of all structural or chromosomal abnormalities. DOPPLER STUDIES: ?? The umbilical artery Doppler S/D ratio is 2.5, which is within normal limits for gestational age. ?? IMPRESSION: ?? Single, live, IUP at 32w6d size less than expected for established ULISES. No signs of increased placental resistance by Doppler Borderline low AFV No sonographic signs of abnormality. RECOMMEND: ?? Repeat ultrasound as clinically indicated. ?? Thank you for allowing us the opportunity to care for your patient. cc: ??Inpatient at time of study ? Candace Peacock MD ?<Electronic Signature> ??11/09/2013 05:38pm Aguilar Bustamante MD [facility] ORDERABLES * CHLAMYDIA + GC AMPLIFIED PROBE (11/09/2013 1:14 AM CDT) Chlamydia Amplified Probe Negative Negative 11/13/2013 3:29 PM CDT [facility] GC Amplified Probe Negative Negative 11/13/2013 3:29 PM CDT [facility] Microbiology URINE / Unknown Collection / Unknown 11/09/2013 1:14 AM CDT 11/09/2013 1:53 AM CDT Narrative [facility] - 11/13/2013 3:29 PM CDT This test was developed and its performance characteristics determined by the [facility], [facility]. Female urine specimens tested by the [facility] [place] have not been cleared or approved by the FDA. The laboratory is regulated under CLIA as qualified to perform high-complexity testing. This test is used for clinical purposes. It should not be regarded as investigational or for research. Results based on detection/no detection of ribosomal RNA by amplified method. Gertrudis Thompson MD LAB - MICROBIOLOGY O RDERABLES [facility] [address] [place] [address], [facility] * CULTURE STREP B (11/08/2013 10:25 PM CDT) Pathologist [facility] Culture Negative for Beta Hemolytic Streptococcus Group B 11/12/2013 11:11 AM CDT [facility] Microbiology ENTIRE PERIRECTAL REGION / Unknown Collection / Unknown 11/08/2013 10:25 PM CDT 11/08/2013 11:06 PM CDT Gertrudis Thompson MD LAB - MICROBIOLOGY O MAHI Performing Organization Address [facility] Co de Phone Number [facility] [address] [place] * BLOOD TYPE VERIFICATION (11/08/2013 10:10 PM CDT) ABO B 11/08/2013 10:46 PM CDT [facility] Rh Type Positive 11/08/2013 10:46 PM CDT [facility] Miscellaneous samples (specimen) BLOOD SPECIMEN / Unknown Collection / Unknown 11/08/2013 10:10 PM CDT 11/08/2013 10:14 PM CDT Viet Marquez MD LAB - BLOOD BANK ORD ERABLES Performing Organization Address [facility] Co de Phone Number [facility] * CULTURE URINE (11/08/2013 8:47 PM CDT) Pathologist [facility] Culture >10,000 CFU/mL multiple bacterial morphotypes present. Suggest recollection. 11/10/2013 3:30 PM CDT [facility] Urine URINE SPECIMEN OBTAINED BY CLEAN CATCH PROCEDURE / Unknown Collection / Unknown 11/08/2013 8:47 PM CDT 11/08/2013 8:57 PM CDT Ludwin Menjivar MD LAB - MICROBIOLOGY O MAHI Performing Organization Address City/[facility] Co de Phone Number [facility] [address] [place] [address] * TYPE + SCREEN PANEL (11/08/2013 8:47 PM CDT) ABO B 11/08/2013 9:36 PM CDT [facility] Rh Type Positive 11/08/2013 9:36 PM CDT [facility] Comment:History check perfor med. Retype required. Antibody Screen Negative 11/08/2013 9:36 PM CDT [facility] Miscellaneous samples (specimen) BLOOD SPECIMEN / Unknown Venipuncture / Unknown 11/08/2013 8:47 PM CDT 11/08/2013 8:55 PM CDT Ludwin Menjivar MD LAB - BLOOD BANK ORD ERABLES Performing Organization Address City/[facility]/ZIP Co de Phone Number [facility] * PROTEIN CREATININE RATIO URINE RANDOM PNL (11/08/2013 8:47 PM CDT) Protein Urine 918.4 mg/dL 11/08/2013 9:17 PM CDT [facility] Creatinine Urine 104.26 mg/dL 11/08/2013 9:17 PM CDT [facility] Protein/Creatin ine Ratio Urine 8.81 11/08/2013 9:17 PM CDT [facility] Urine URINE SPECIMEN OBTAINED BY CLEAN CATCH PROCEDURE / Unknown Collection / Unknown 11/08/2013 8:47 PM CDT 11/08/2013 8:57 PM CDT Ludwin Menjivar MD LAB - URINE CHEMISTR Y ORDERABLES Performing Organization Address City/[facility] Co de Phone Number [facility] [address] [place] [address] * (ABNORMAL) URINALYSIS ROUTINE W/REFLEX TO CULTURE (11/08/2013 8:47 PM CDT) Color UA Yellow Straw, Yellow, Dark Yellow 11/08/2013 9:13 PM CDT [facility] Clarity UA Cloudy 11/08/2013 9:13 PM CDT [facility] Specific Means UA 1.022 1.005 - 1.030 11/08/2013 9:13 PM CDT [facility] pH UA 6.5 5.0 - 8.0 pH 11/08/2013 9:13 PM CDT [facility] Protein UA 4+(A) Negative 11/08/2013 9:13 PM CDT [facility] Blood UA Trace(A) Negative 11/08/2013 9:13 PM CDT [facility] Leukocyte UA Trace(A) Negative 11/08/2013 9:13 PM CDT [facility] Nitrite UA Negative Negative 11/08/2013 9:13 PM CDT [facility] Glucose UA Negative Negative 11/08/2013 9:13 PM CDT [facility] Ketone UA Negative Negative 11/08/2013 9:13 PM CDT [facility] Bilirubin UA Negative Negative 11/08/2013 9:13 PM CDT [facility] Urobilinogen UA 0.2 0.1 - 1.0 EU/dL 11/08/2013 9:13 PM CDT [facility] WBC UA Auto 20-50(A) 0-2, 2-5 #/hpf 11/08/2013 9:13 PM CDT [facility] RBC UA Auto 5-10(A) 0-2, 2-5 #/hpf 11/08/2013 9:13 PM CDT [facility] Epithelial Cell UA Auto 5-10(A) 0-2, 2-5 #/hpf 11/08/2013 9:13 PM CDT [facility] Bacteria UA Auto 2+(A) None seen 11/09/19 14 9:13 PM CDT [facility] Hyaline Casts UA Auto 2-5(A) 0 - 2 #/lpf 11/08/2013 9:13 PM CDT [facility] Reflex Status Culture to follow 11/08/2013 9:13 PM CDT [facility] Urine URINE SPECIMEN OBTAINED BY CLEAN CATCH PROCEDURE / Unknown Collection / Unknown 11/08/2013 8:47 PM CDT 11/08/2013 8:57 PM CDT Ludwin Menjivar MD LAB - URINALYSIS ORD ERABLES Performing Organization Address City/[facility]/ZIP Co de Phone Number [facility] [address] [place] [address] * LDH BLOOD (11/08/2013 8:47 PM CDT) LDH 153 100 - 200 U/L 11/08/2013 9:25 PM CDT [facility] Comment: Blood BLOOD SPECIMEN / Unknown Venipuncture / Unknown 11/08/2013 8:47 PM CDT 11/08/2013 8:55 PM CDT Ludwin Menjivar MD LAB - CHEMISTRY ORDE JONAH Performing Organization Address City/[facility]/ZIP Co de Phone Number [facility] [address] [place] [address] * (ABNORMAL) URIC ACID BLOOD (11/08/2013 8:47 PM CDT) Uric Acid 6.6(H) 2.5 - 6.2 mg/dL 11/08/2013 9:25 PM CDT [facility] Comment: Blood BLOOD SPECIMEN / Unknown Venipuncture / Unknown 11/08/2013 8:47 PM CDT 11/08/2013 8:55 PM CDT Luwdin Menjivar MD LAB - CHEMISTRY [facility] Organization Address City/State/ZIP Co de Phone Number [facility] [address] [place] [address] * (ABNORMAL) COMPREHENSIVE METABOLIC PANEL (11/08/2013 8:47 PM CDT) Pathologist [facility] Glucose 100 74 - 106 mg/dL 11/08/2013 9:25 PM CDT [facility] Sodium 141 136 - 145 mmol/L 11/08/2013 9:25 PM CDT [facility] Potassium 3.7 3.5 - 5.1 mmol/L 11/08/2013 9:25 PM CDT [facility] Chloride 109(H) 98 - 107 mmol/L 11/08/2013 9:25 PM CDT [facility] CO2 22 22 - 31 mmol/L 11/08/2013 9:25 PM CDT [facility] Calcium 9.0 8.5 - 10.1 mg/dL 11/08/2013 9:25 PM CDT [facility] Anion Gap 10 5 - 15 mmol/L 11/08/2013 9:25 PM CDT [facility] BUN 8 7 - 21 mg/dL 11/08/2013 9:25 PM CDT [facility] Creatinine 0.35(L) 0.50 - 1.30 mg/dL 11/08/2013 9:25 PM CDT [facility] eGFR by MDRD >60 >60 mL/min/1.7 3m2 11/08/2013 9:25 PM CDT [facility] eGFR by MDRD >60 >60 mL/min/1.7 3m2 11/08/2013 9:25 PM CDT [facility] Alkaline Phosphatase 187(H) 38 - 126 U/L 11/08/2013 9:25 PM CDT [facility] ALT 21 12 - 78 U/L 11/08/2013 9:25 PM CDT [facility] AST 17 5 - 40 U/L 11/08/2013 9:25 PM CDT [facility] Protein Total 5.5(L) 6.4 - 8.2 gm/dL 11/08/2013 9:25 PM CDT [facility] Albumin 2.2(L) 3.4 - 5.0 gm/dL 11/08/2013 9:25 PM CDT [facility] Bilirubin Total 0.1(L) 0.2 - 1.0 mg/dL 11/08/2013 9:25 PM CDT [facility] Blood BLOOD SPECIMEN / Unknown Venipuncture / Unknown 11/08/2013 8:47 PM CDT 11/08/2013 8:55 PM CDT Ludwin Menjivar MD LAB - CHEMISTRY [facility] Organization Address City/State/[facility] Co de Phone Number [facility] [address] [place] [address] * (ABNORMAL) CBC W AUTO DIFFERENTIAL (11/08/2013 8:47 PM CDT) WBC 11.7(H) 4.4 - 10.7 x10^9/L 11/08/2013 9:05 PM CDT [facility] RBC 4.00 3.80 - 5.20 x10^12/L 11/08/2013 9:05 PM CDT [facility] Hemoglobin 12.0 12.0 - 15.6 gm/dL 11/08/2013 9:05 PM CDT [facility] Hematocrit 34.8(L) 35.9 - 45.5 % 11/08/2013 9:05 PM CDT [facility] MCV 87.0 80.7 - 98.3 fl 11/08/2013 9:05 PM CDT [facility] MCH 30.0 26.7 - 34.0 pg 11/08/2013 9:05 PM CDT [facility] MCHC 34.5 30.8 - 35.9 gm/dL 11/08/2013 9:05 PM CDT [facility] Platelet Count 237 153 - 416 x10^9/L 11/08/2013 9:05 PM CDT [facility] RDW-CV 12.8 12.1 - 14.9 % 11/08/2013 9:05 PM CDT [facility] MPV 11.9 9.4 - 12.9 fl 11/08/2013 9:05 PM CDT [facility] Neutrophils % 71.1 44.0 - 73.0 % 11/08/2013 9:05 PM T [facility] Lymphocytes % 19.3(L) 20.0 - 43.0 % 11/08/2013 9:05 PM CDT [facility] Monocytes % 8.3 5.0 - 13.0 % 11/08/2013 9:05 PM CDT [facility] Eosinophils % 0.6 0.0 - 6.0 % 11/08/2013 9:05 PM CDT [facility] Basophils % 0.3 0.0 - 2.0 % 11/08/2013 9:05 PM CDT [facility] Immature Granulocytes 0.4 0 - 1 % 11/08/2013 9:05 PM CDT [facility] Neutrophil Absolute 8.28(H) 2.01 - 7.14 x10^9/L 11/08/2013 9:05 PM CDT [facility] Lymphocytes Absolute 2.25 1.07 - 3.94 x10^9/L 11/08/2013 9:05 PM CDT [facility] Monocytes Absolute 0.97 0.26 - 1.07 x10^9/L 11/08/2013 9:05 PM CDT [facility] Eosinophils Absolute 0.07 0 - 0.47 x10^9/L 11/08/2013 9:05 PM T [facility] Basophils Absolute 0.03 0 - 0.08 x10^9/L 11/08/2013 9:05 PM T [facility] Immature Granulocytes Absolute 0.05 0.00 - 0.06 x10^9/L 11/08/2013 9:05 PM T [facility] nRBC Auto 0 /100 WBC 11/08/2013 9:05 PM [facility] Blood BLOOD SPECIMEN / Unknown Venipuncture / Unknown 11/08/2013 8:47 PM CDT 11/08/2013 8:55 PM CDT Ludwin Menjivar MD LAB - HEMATOLOGY ORD ERABLES [facility] [address] [place] [address] documented in this encounter Visit Diagnoses Diagnosis Elevated BP- Primary Elevated blood pressure reading without diagnosis of hypertension Preeclampsia, third trimester (HCC) Tobacco abuse Tobacco use disorder Preeclampsia (HCC) Mild or unspecified pre-eclampsia, unspecified as to episode of care Breech presentation (HCC) Breech presentation without mention of version, unspecified as to episode of care Supervision of high-risk (HCC) IUGR (intrauterine growth restriction) Unspecified growth retardation, unspecified (weight) documented in this encounter Administered Medications Inactive Administered Medications - up to 3 most recent administrations Medication Order MAR Action Action Date Dose Rate Site 0.9% NaCl infusion ADS Med 1 dose, Starting on Wed11/16/13 at 1519, Until Wed11/16/13 at 1529, CASEY WILLIAMSON: cabinet override 0.9% NaCl infusion 20 mL/hr, Intravenous, CONTINUOUS PRN, IVPB flush, Starting on Wed11/16/13 at 1453, Until Wed11/17/13 at 1915, Please use 250 ml bag. To be used for IVPB flush. Change bag every 24 hours. $ New Bag/Syringe 11/16/2013 3:29 PM CDT 20 mL/hr 20 mL/hr 0.9% NaCl injection 3 mL 3 mL, Intracatheter, EVERY 8 HOURS, First dose on [facility] 11/11/13 at 2345, Until Discontinued $ Given 11/15/2013 12:36 PM CDT 3 mL $ Given 11/15/2013 7:38 AM CDT 3 mL $ Given 11/14/2013 8:27 PM CDT 3 mL 0.9% NaCl injection 3 mL 3 mL, Intracatheter, EVERY 8 HOURS, First dose on [place] 11/16/13 at 1800, Until Discontinued $ Given 11/17/2013 1:23 PM CDT 3 mL $ Given 11/17/2013 4:18 AM CDT 10 mL $ Given 11/16/2013 8:55 PM CDT 10 mL 0.9% NaCl injection 3 mL 3 mL, Intracatheter, EVERY 8 HOURS, First dose on [facility] 11/18/13 at 1630, Until Discontinued $ Given 11/19/2013 1:02 PM CDT 10 mL $ Given 11/19/2013 5:54 AM CDT 3 mL $ Given 11/18/2013 9:33 PM CDT 3 mL acetaminophen (TYLENOL) tablet 1,000 mg 1,000 mg, Oral, NOW, 1 dose, On Wed11/09/13 at 0645, Maximum allowable Acetaminophen amount = 4 Grams (4000 mg) / 24 hours. $ Given 11/09/2013 6:42 AM CDT 1,000 mg acetaminophen (TYLENOL) tablet 1,000 mg 1,000 mg, Oral, ONCE, 1 dose, On Wed11/09/13 at 1430, Maximum allowable Acetaminophen amount = 4 Grams (4000 mg) / 24 hours. $ Given 11/09/2013 2:11 PM CDT 1,000 mg acetaminophen (TYLENOL) tablet 1,000 mg 1,000 mg, Oral, ONCE, 1 dose, On Wed11/09/13 at 2115, Maximum allowable Acetaminophen amount = 4 Grams (4000 mg) / 24 hours. $ Given 11/09/2013 9:05 PM CDT 1,000 mg acetaminophen (TYLENOL) tablet 1,000 mg 1,000 mg, Oral, ONCE, 1 dose, On Wed11/10/13 at 1800, Maximum allowable Acetaminophen amount = 4 Grams (4000 mg) / 24 hours. $ Given 11/10/2013 6:10 PM CDT 1,000 mg acetaminophen (TYLENOL) tablet 1,000 mg 1,000 mg, Oral, ONCE, 1 dose, On Wed11/14/13 at 2030, Maximum allowable Acetaminophen amount = 4 Grams (4000 mg) / 24 hours. $ Given 11/14/2013 8:27 PM CDT 1,000 mg acetaminophen (TYLENOL) tablet 1,000 mg 1,000 mg, Oral, ONCE, 1 dose, On Wed11/15/13 at 1400, Maximum allowable Acetaminophen amount = 4 Grams (4000 mg) / 24 hours. $ Given 11/15/2013 1:55 PM CDT 1,000 mg alum & mag hydroxide-simeth (MAALOX ADVANCED) suspension 30 mL 30 mL, Oral, ONCE, 1 dose, On Wed11/11/13 at 2230, Shake well before using. $ Given 11/11/2013 10:32 PM CDT 30 mL betamethasone acet & sod phos (CELESTONE) injection 12 mg 12 mg, Intramuscular, EVERY 24 HOURS, 2 doses, First dose on Wed11/08/13 at 2315, Last dose on Wed11/09/13 at 2315, Protect from light. $ Given 11/09/2013 11:45 PM CDT 12 mg Left Dorsogluteal $ Given 11/08/2013 11:05 PM CDT 12 mg B uttock mxikzvacry-coatosixelbiu-cddmmw ne (FIORICET) 50-325-40 MG tablet 1 Tab 1 tablet, Oral, ONCE, 1 dose, On Wed11/10/13 at 1415, Do not exceed 12 tablets in 24 hours $ Given 11/10/2013 2:04 PM CDT 1 tablet cqozamtacu-rqmzntkmmdgwc-hwawlf ne (FIORICET) 50-325-40 MG tablet 1 Tab 1 tablet, Oral, ONCE, 1 dose, On Wed11/15/13 at 1645, Do not exceed 12 tablets in 24 hours $ Given 11/15/2013 4:49 PM CDT 1 tablet notdpkqrdu-rudjkpgxpsrqm-fpnpfa ne (FIORICET) 50-325-40 MG tablet 1 Tab 1 tablet, Oral, ONCE, 1 dose, On Wed11/15/13 at 1945, Do not exceed 12 tablets in 24 hours $ Given 11/15/2013 7:58 PM CDT 1 tablet ajtgqyafsp-nufcpjrpfidpc-eemyzi ne (FIORICET) 50-325-40 MG tablet 2 Tab 2 tablet, Oral, EVERY 4 HOURS PRN, Headache, pt may have 1-2 tabs prn, Starting on Wed11/15/13 at 2040, Until Wed11/21/13 at 2020, Do not exceed 12 tablets in 24 hours $ Given 11/15/2013 8:52 PM CDT 1 tablet calcium carbonate (TUMS) chew tablet 2 Tab 2 tablet, Oral, ONCE, 1 dose, On Wed11/12/13 at 1045 $ Given 11/12/2013 10:35 AM CDT 2 tablets calcium carbonate (TUMS) chew tablet 2 Tab 2 tablet, Oral, PRN, Heartburn, Starting on Wed11/13/13 at 1844, Until Wed11/21/13 at 2020 $ Given 11/13/2013 6:54 PM CDT 2 tablets ceFAZolin (ANCEF) IVPB 1 g 1 g, at 100 mL/hr, Intravenous, EVERY 8 HOURS, 6 doses, First dose on Wed11/15/13 at 1500, Last dose on Wed11/17/13 at 0800 $ Given 11/16/2013 8:01 AM CDT 1 g 100 mL/hr $ Given 11/15/2013 11:50 PM CDT 1 g 100 mL/hr $ Given 11/15/2013 3:39 PM CDT 1 g 100 mL/hr cefTRIAXone (ROCEPHIN) IVPB 2 g 2 g, at 100 mL/hr, Intravenous, ONCE, 1 dose, On [place] 11/16/13 at 1430 $ Given 11/16/2013 3:29 PM CDT 2 g 100 mL/hr citric acid-sodium citrate (BICITRA) solution 30 mL 30 mL, Oral, PRE-OP ONCE, 1 dose, On Wed11/17/13 at 1442, 10 minutes prior to transfer to OR or at the time decision is made for section., Pre-op $ Given 11/17/2013 3:06 PM CDT 30 mL dextrose 5 % and 0.45% NaCl infusion at 125 mL/hr, Intravenous, CONTINUOUS, Starting on Wed11/17/13 at 1715, Until Wed11/17/13 at 1915 $ New Bag/Syringe 11/17/2013 5:20 PM CDT 75 mL/hr dextrose 5 % and 0.45% NaCl infusion at 75 mL/hr, Intravenous, CONTINUOUS, Starting on Wed11/17/13 at 1930, Until 11/18/13 at 1552, May discontinue IV when taking PO and afebrile., $ New Bag/Syringe 11/18/2013 5:02 AM CDT 75 mL/hr Current Rate 11/17/2013 9:40 PM CDT 75 mL/hr diphenhydrAMINE (BENADRYL) injection 25 mg 25 mg, Intravenous, ONCE, 1 dose, On [place] 11/09/13 at 1630, Max intravenous rate = 25 mg/min $ Given 11/09/2013 4:09 PM CDT 25 mg diphenhydrAMINE (BENADRYL) injection 25 mg 25 mg, Intravenous, ONCE, 1 dose, On Wed11/17/13 at 1700, Max intravenous rate = 25 mg/min $ Given 11/17/2013 4:45 PM CDT 25 mg diphenhydrAMINE (BENADRYL) injection 25 mg 25 mg, Intravenous, EVERY 6 HOURS PRN, Itching, Starting on 11/18/13 at 0108, Until Wed11/21/13 at 2021, Max intravenous rate = 25 mg/min $ Given 11/18/2013 8:25 AM CDT 25 mg $ Given 11/18/2013 1:50 AM CDT 25 mg diphenhydrAMINE (BENADRYL) injection ADS Med 1 dose, Starting on Wed11/09/13 at 1608, Until Wed11/09/13 at 1609, LLOYD BOURNE R: denise override docusate sodium (COLACE) capsule 100 mg 100 mg, Oral, 2 TIMES DAILY, First dose on Wed11/17/13 at 2100, Until Discontinued, $ Given 11/21/2013 9:39 AM CDT 100 mg $ Given 11/20/2013 8:13 PM CDT 100 mg $ Given 11/20/2013 8:05 AM CDT 100 mg famotidine (PEPCID) injection 20 mg 20 mg, Intravenous, 2 TIMES DAILY, First dose on Wed11/12/13 at 1115, Until Discontinued $ Given 11/12/2013 11:40 AM CDT 20 mg famotidine (PEPCID) tablet 20 mg 20 mg, Oral, ONCE, 1 dose, On Wed11/11/13 at 2015 $ Given 11/11/2013 8:32 PM CDT 20 mg famotidine (PEPCID) tablet 20 mg 20 mg, Oral, 2 TIMES DAILY, First dose on Wed11/12/13 at 2200, Until Discontinued $ Given 11/21/2013 9:39 AM CDT 20 mg $ Given 11/20/2013 8:14 PM CDT 20 mg $ Given 11/20/2013 8:05 AM CDT 20 mg ibuprofen (MOTRIN) tablet 600 mg 600 mg, Oral, EVERY 6 HOURS, First dose on Wed11/17/13 at 1930, Until Discontinued, Maximum allowable amount = 3200 mg / 24 hours., $ Given 11/20/2013 8:11 PM CDT 600 mg $ Given 11/20/2013 1:12 PM CDT 600 mg $ Given 11/20/2013 5:41 AM CDT 600 mg ibuprofen (MOTRIN) tablet 600 mg 600 mg, Oral, EVERY 6 HOURS PRN, Mild Pain, Moderate Pain, Starting on Wed11/21/13 at 0200, Until Wed11/21/13 at 2021, Maximum allowable amount = 3200 mg / 24 hours., $ Given 11/21/2013 2:37 PM CDT 600 mg $ Given 11/21/2013 5:50 AM CDT 600 mg ketorolac (TORADOL) injection 30 mg 30 mg, Intravenous, EVERY 6 HOURS, 4 doses, First dose on Wed11/17/13 at 1800, Last dose on Wed11/18/13 at 1100, For Pain - If not given intra-op. PRN if not administered in the OR. $ Given 11/18/2013 12:03 PM CDT 30 mg $ Given 11/18/2013 5:38 AM CDT 30 mg $ Given 11/17/2013 11:37 PM CDT 30 mg labetalol (NORMODYNE; TRANDATE) injection 20 mg 20 mg, Intravenous, ONCE, 1 dose, On Wed11/08/13 at 2115, Max IV dose is 300mg/24 hours. $ Given 11/08/2013 9:02 PM CDT 20 mg labetalol (NORMODYNE; TRANDATE) injection 20 mg 20 mg, Intravenous, ONCE, 1 dose, On Wed11/08/13 at 2230, Max IV dose is 300mg/24 hours. $ Given 11/08/2013 10:16 PM CDT 20 mg labetalol (NORMODYNE; TRANDATE) injection 20 mg 20 mg, Intravenous, ONCE, 1 dose, On Wed11/15/13 at 1030, Max IV dose is 300mg/24 hours. $ Given 11/15/2013 10:28 AM CDT 20 mg labetalol (NORMODYNE;TRANDATE) injection ADS Med 1 dose, Starting on Wed11/08/13 at 2059, Until Wed11/08/13 at 2102, BISMARK GRAY: cabinet override lactated ringers infusion ADS Med 1 dose, Starting on Wed11/15/13 at 1119, Until Wed11/15/13 at 1122, ROSE DEVRIES: cabinet override lactated ringers infusion at 50 mL/hr, Intravenous, CONTINUOUS, Starting on Wed11/08/13 at 2245, Until Wed11/11/13 at 0556, Start IV with 18 gauge angiocath. $ New Bag/Syringe 11/11/2013 3:22 AM CDT 5 0 mL/hr $ New Bag/Syringe 11/10/2013 10:03 AM CDT 50 mL /hr $ New Bag/Syringe 11/09/2013 3:53 PM CDT 50 mL/ hr lactated ringers infusion at 30 mL/hr, Intravenous, CONTINUOUS, Starting on Wed11/15/13 at 1130, Until Wed11/17/13 at 1915 $ Bolus New Bag 11/17/2013 2:20 PM CDT 30 mL/hr $ New Bag/Syringe 11/15/2013 11:22 AM CDT 30 mL /hr magnesium sulfate bolus IVPB in sterile IV fluid 4 g 4 g, Intravenous, BOLUS IV, 1 dose, On Wed11/08/13 at 2245, Run over 20-30 minutes. Monitor BP, Pulse, and Respirations every 5 minutes, and assess for the following side effects: - CONTRACTING EXECUTIVE Depression - Chest Pain - Palpitations - Flushing - Nausea - Vomiting - Headache - Blurred Vision - Respiratory Depression $ Given 11/08/2013 10:54 PM CDT 4 g magnesium sulfate bolus IVPB in sterile IV fluid 4 g 4 g, Intravenous, BOLUS IV, 1 dose, On Wed11/15/13 at 1045, Run over 20-30 minutes. Monitor BP, Pulse, and Respirations every 5 minutes, and assess for the following side effects: - CONTRACTING EXECUTIVE Depression - Chest Pain - Palpitations - Flushing - Nausea - Vomiting - Headache - Blurred Vision - Respiratory Depression $ Given 11/15/2013 11:58 AM CDT 4 g magnesium sulfate bolus IVPB in sterile IV fluid ADS Med 1 dose, Starting on Wed11/15/13 at 1118, Until Wed11/15/13 at 1158, YAW DEVRIESVILLEGAS: cabinet override magnesium sulfate infusion in sterile IV fluid ADS Med 1 dose, Starting on Wed11/15/13 at 1118, Until Wed11/15/13 at 1221, YAW DEVRIESVILLEGAS: cabinet override magnesium sulfate infusion in sterile IV fluid 2 g/hr (50 mL/hr), Intravenous, CONTINUOUS, Starting on Wed11/08/13 at 2345, Until Wed11/11/13 at 0556, 2 g/hr = 50 ml/hr $ New Bag/Syringe 11/11/2013 3:22 AM CDT 2 g/hr 50 mL/hr $ New Bag/Syringe 11/10/2013 6:32 PM CDT 2 g/hr 50 mL/ hr $ New Bag/Syringe 11/10/2013 10:04 AM CDT 2 g/hr 50 mL /hr magnesium sulfate infusion in sterile IV fluid 1.5 g/hr (50 mL/hr, rounded to 37.5 mL/hr), Intravenous, CONTINUOUS, Starting on Wed11/15/13 at 1115, Until Wed11/16/13 at 0634, 2 g/hr = 50 ml/hr Rate Change 11/15/2013 8:45 PM CDT 1.5 g/hr 37.5 mL/hr $ New Bag/Syringe 11/15/2013 12:21 PM CDT 2 g/hr 50 mL /hr magnesium sulfate infusion in sterile IV fluid 2 g/hr (50 mL/hr), Intravenous, CONTINUOUS, Starting on Wed11/17/13 at 1715, Until Wed11/18/13 at 1714, 2 g/hr = 50 ml/hr $ New Bag/Syringe 11/18/2013 9:39 AM CDT 2 g/hr 50 mL/hr $ New Bag/Syringe 11/18/2013 1:04 AM CDT 2 g/hr 50 mL/ hr $ New Bag/Syringe 11/17/2013 4:55 PM CDT 2 g/hr 50 mL/ hr metoclopramide (REGLAN) injection 10 mg 10 mg, Intravenous, ONCE, 1 dose, On Wed11/09/13 at 1630 $ Given 11/09/2013 4:09 PM CDT 10 mg metoclopramide (REGLAN) injection ADS Med 1 dose, Starting on Wed11/09/13 at 1608, Until Wed11/09/13 at 1609, LLOYD BOURNE R: denise override morphine injection 2 mg 2 mg, Intravenous, EVERY 2 HOURS PRN, Severe Pain, Starting on Wed11/17/13 at 1915, Until Wed11/21/13 at 0153, $ Given 11/17/2013 9:31 PM CDT 2 mg nicotine (NICODERM CQ) patch 7 mg 7 mg, Administer over 24 Hours, DAILY, First dose on Wed11/10/13 at 1815, Until Discontinued, Remove old patch before applying new patch. This patch may contain metal and is not compatible with MRI. Notify radiology of patch location upon arrival to MRI. . WASTE DISPOSAL INSTRUCTIONS: P-Listed item. Special Disposal Required. . $ Applied 11/11/2013 8:46 AM CDT 7 mg Left Arm $ Applied 11/10/2013 6:11 PM CDT 7 mg Le ft Arm NIFEdipine CR 24hr (ADALAT CC) tablet 30 mg 30 mg, Oral, DAILY, First dose on Wed11/08/13 at 2245, Until Discontinued, Do not crush, chew, or cut in half. $ Given 11/09/2013 8:48 AM CDT 30 mg $ Given 11/08/2013 11:30 PM CDT 30 mg NIFEdipine CR 24hr (ADALAT CC) tablet 30 mg 30 mg, Oral, 2 TIMES DAILY (before breakfast and supper), First dose (after last modification) on Wed11/09/13 at 2100, Until Discontinued, Do not crush, chew, or cut in half. $ Given 11/14/2013 8:27 PM CDT 30 mg $ Given 11/14/2013 8:16 AM CDT 30 mg $ Given 11/13/2013 8:55 PM CDT 30 mg NIFEdipine CR 24hr (ADALAT CC) tablet 30 mg 30 mg, Oral, AT BEDTIME, First dose (after last modification) on Wed11/15/13 at 2100, Until Discontinued, Do not crush, chew, or cut in half. $ Given 11/20/2013 8:13 PM CDT 30 mg $ Given 11/19/2013 8:33 PM CDT 30 mg $ Given 11/18/2013 9:33 PM CDT 30 mg NIFEdipine CR 24hr (ADALAT CC) tablet 60 mg 60 mg, Oral, DAILY BEFORE BREAKFAST, First dose on Wed11/15/13 at 0800, Until Discontinued, Do not crush, chew, or cut in half. $ Given 11/21/2013 8:21 AM CDT 60 mg $ Given 11/20/2013 8:05 AM CDT 60 mg $ Given 11/19/2013 7:50 AM CDT 60 mg nitrofurantoin monohyd macro crystals (MACROBID) capsule 100 mg 100 mg, Oral, 2 TIMES DAILY WITH MEALS, 14 doses, First dose on Wed11/14/13 at 0915, Last dose on Wed11/20/13 at 1800 $ Given 11/15/2013 7:39 AM CDT 100 mg $ Given 11/14/2013 5:40 PM CDT 100 mg $ Given 11/14/2013 9:04 AM CDT 100 mg nitrofurantoin monohyd macro crystals (MACROBID) capsule 100 mg 100 mg, Oral, 2 TIMES DAILY WITH MEALS, 14 doses, First dose on Wed11/16/13 at 1800, Last dose on Wed11/23/13 at 0800 $ Given 11/21/2013 6:49 PM CDT 100 mg $ Given 11/21/2013 8:21 AM CDT 100 mg $ Given 11/20/2013 8:12 PM CDT 100 mg ondansetron (ZOFRAN) injection 4 mg 4 mg, Intravenous, ONCE, 1 dose, On Wed11/15/13 at 1230 $ Given 11/15/2013 12:14 PM CDT 4 mg oxyCODONE-acetaminophen (PERCOCET) 5-325 MG tablet 1-2 Tab 1-2 tablet, Oral, EVERY 4 HOURS PRN, Moderate Pain, Starting on Wed11/17/13 at 1915, Until Wed11/21/13 at 202, Maximum allowable Acetaminophen amount = 4 Grams (4000 mg) / 24 hours., $ Given 11/21/2013 2:37 PM CDT 2 tablets $ Given 11/21/2013 5:50 AM CDT 1 tablet $ Given 11/20/2013 8:37 PM CDT 2 tablets pantoprazole (PROTONIX) injection 40 mg 40 mg, Intravenous, ONCE, 1 dose, On 11/11/13 at 2230, Reconstitute vial with 10 mL of 0.9% NaCL to a final concentration 4 mg/mL. [place] prescribed dose over at least 2min. $ Given 11/11/2013 10:32 PM CDT 40 mg vitamin with iron tablet 1 Tab 1 tablet, Oral, DAILY, First dose on Wed11/09/13 at 0900, Until Discontinued $ Given 11/16/2013 9:08 AM CDT 1 tablet $ Given 11/15/2013 9:11 AM CDT 1 tablet $ Given 11/14/2013 8:16 AM CDT 1 tablet saline nasal spray (OCEAN; BABY AYR) 0.65 % nasal spray 1 [place] 1 spray, Each Nostril, PRN, Dry Nose, Starting on 11/11/13 at 1143, Until Wed11/17/13 at 1915 $ Given 11/11/2013 2:28 PM CDT 1 spray zolpidem (AMBIEN) tablet 5 mg 5 mg, Oral, AT BEDTIME PRN, Insomnia, Starting on [place] 11/09/13 at 2047, Until Tu11/21/13 at 2021 $ Given 11/16/2013 11:08 PM CDT 5 mg $ Given 11/15/2013 8:53 PM CDT 5 mg $ Given 11/13/2013 10:21 PM CDT 5 mg documented in this encounter Active and Recently Administered Medications Times are shown in CDT. Scheduled Medication Order 11/19/2013 11/20/2013 11/21/2013 0.9% NaCl injection 3 mL (CANCELED) 3 mL, Intracatheter, EVERY 8 HOURS, First dose on 11/18/13 at 1630, Until Discontinued 0554 ($ Given - Provider: Marci Mejia RN)1302 ($ Given - Provider: Hope Ribeiro RN)2330 (Not Administered - Provider: Katlyn Major RN - Reason: See Comments) docusate sodium (COLACE) capsule 100 mg 100 mg, Oral, 2 TIMES DAILY, First dose on Wed11/17/13 at 2100, Until Discontinued, 0750 ($ Given - Provider: Hope Ribeiro RN)2032 ($ Given - Provider: Katlyn Major RN) 0805 ($ Given - Provider: July Maravilla RN)2012 ($ Given - Provider: Cordell Bauer RN) 0939 ($ Given - Provider: Hope Mccoy, FLEX) famotidine (PEPCID) tablet 20 mg (CANCELED) 20 mg, Oral, 2 TIMES DAILY, First dose on Wed11/12/13 at 2200, Until Discontinued 0750 ($ Given - Provider: Hpoe Ribeiro RN)2032 ($ Given - Provider: Katlyn Major RN) 0805 ($ Given - Provider: July Maravilla RN)2013 ($ Given - Provider: Cordell Bauer RN) 0939 ($ Given - Provider: Hope R Lovan-Gold, RN) ibuprofen (MOTRIN) tablet 600 mg 600 mg, Oral, EVERY 6 HOURS, First dose on Wed11/17/13 at 1930, Until Discontinued, Maximum allowable amount = 3200 mg / 24 hours., 0029 ($ Given - Provider: Marci Mejia RN)0553 ($ Given - Provider: Marci Mejia, RN)1259 ($ Given - Provider: Hope Ribeiro RN)1839 ($ Given - Provider: Katlyn Major RN)2356 ($ Given - Provider: Hope Valverde, RN) 0541 ($ Given - Provider: Hope Valverde, RN)1312 ($ Given - Provider: July Maravilla, RN)1800 (Not Administered - Provider: July Maravilla RN - Reason: See Comments - Comment: pt is [place])2010 ($ Given - Provider: Cordell Bauer RN - Comment: retimed d/t missed dose) 0000 (Not Administered - Provider: Cordell Bauer RN - Reason: See Comments - Comment: times altered) NIFEdipine CR 24hr (ADALAT CC) tablet 30 mg 30 mg, Oral, AT BEDTIME, First dose (after last modification) on Wed11/15/13 at 2100, Until Discontinued, Do not crush, chew, or cut in half. 2032 ($ Given - Provider: Katlyn Major RN) 2012 ($ Given - Provider: Cordell Bauer, FLEX - Comment: given early d/t nicu visit) NIFEdipine CR 24hr (ADALAT CC) tablet 60 mg 60 mg, Oral, DAILY BEFORE BREAKFAST, First dose on Wed11/15/13 at 0800, Until Discontinued, Do not crush, chew, or cut in half. 0750 ($ Given - Provider: Hope Ribeiro RN) 0805 ($ Given - Provider: July Maravilla, FLEX) 0821 ($ Given - Provider: Hope Mccoy RN - Comment: bp 149/92 pulse 113) nitrofurantoin monohyd macro crystals (MACROBID) capsule 100 mg 100 mg, Oral, 2 TIMES DAILY WITH MEALS, 14 doses, First dose on Wed11/16/13 at 1800, Last dose on Wed11/23/13 at 0800 0750 ($ Given - Provider: Hope Ribeiro RN)1839 ($ Given - Provider: Katlyn Major RN) 0805 ($ Given - Provider: July Maravilla, RN)1800 (Not Administered - Provider: July Maravilla RN - Reason: See Comments - Comment: pt is visiting infant in [place])2011 ($ Given - Provider: Cordell Bauer RN - Comment: retimed d/t missed dose) 0821 ($ Given - Provider: Hope Mccoy RN)1849 ($ Given - Provider: Hope Mccoy RN) PRN Medication Order 11/19/2013 11/20/2013 11/21/2013 ibuprofen (MOTRIN) tablet 600 mg (CANCELED) 600 mg, Oral, EVERY 6 HOURS PRN, Mild Pain, Moderate Pain, Starting on Wed11/21/13 at 0200, Until Wed11/21/13 at 2020, Maximum allowable amount = 3200 mg / 24 hours., 0550 ($ Given - Provider: Cordell Bauer RN)1437 ($ Given - Provider: Hope Mccoy RN) oxyCODONE-acetaminophen (PERCOCET) 5-325 MG tablet 1-2 Tab 1-2 tablet, Oral, EVERY 4 HOURS PRN, Moderate Pain, Starting on Wed11/17/13 at 1915, Until Wed11/21/13 at 2020, Maximum allowable Acetaminophen amount = 4 Grams (4000 mg) / 24 hours., 1451 ($ Given - Provider: Hope Ribeiro RN)2034 ($ Given - Provider: Katlyn Major RN) 0656 ($ Given - Provider: Hope Valverde RN)1056 ($ Given - Provider: July Maravilla, FLEX)1639 ($ Given - Provider: July Maravilla, RN)2037 ($ Given - Provider: Cordell Bauer RN) 0550 ($ Given - Provider: Cordell Bauer RN)1437 ($ Given - Provider: Hope Mccoy RN) documented in this encounter
--- OUTSIDE RECORDS SUMMARY | 2024-04-27 18:03 | XMS_ITS | Clinical Summary ---
Author Organization [facility] Address [address] [place] [address] Phone Care Team Providers Care Electromechanical Technologist Name Role Phone Brayan Nazario MD Unavailable [phone] Apolinar Crowley MD Primary Care Provider [phone] Allergies No known active allergies Medications HYDROcodone-acetami nophen (NORCO) 5-325 MG TabletIndications:S /P laparoscopic cholecystectomy Take 1 Tablet by mouth every 8 hours as needed for Moderate or more severe pain. 12 Tablet 01/31/20 22 Active Additional Information Patient not taking.Reported on 02/11/2022 ondansetron (Zofran) 4 MG TabletIndications:S /P laparoscopic cholecystectomy Take 1 Tablet by mouth every 8 hours as needed for Nausea - 1st line. 15 Tablet 02/12/20 22 Active ibuprofen (MOTRIN) 800 MG Tablet Take 1 Tablet by mouth every 6 hours as needed for Mild or more severe pain. 30 Tablet 04/14/20 22 Active HYDROcodone-acetami nophen (NORCO) 5-325 MG TabletIndications:G astrocnemius strain, right, initial encounter Take 1 Tablet by mouth every 6 hours as needed for Mild or more severe pain. 12 Tablet 04/14/20 22 Active hydrOXYzine (ATARAX) 25 MG Tablet Take 1 Tablet by mouth every 6 hours as needed for Anxiety. 90 Tablet 06/30/20 23 Active famotidine (PEPCID) 20 MG Tablet Take 1 Tablet by mouth 2 times daily as needed for Heartburn. 30 Tablet 11/07/19 Active meclizine (ANTIVERT) 25 MG Tablet Take 1 Tablet by mouth 3 times daily as needed for Dizziness. 30 Tablet 12/29/19 Active Active Problems No known active problems Family History * Patient is adopted Medical History Relation Name Comments No Known Problems Daughter 1 No Known Problems Daughter 2 No Known Problems Mother Relation Name Status Comments Daughter 1 Alive Daughter 2 Alive Mother Social History Tobacco Use Types Packs/Day Years Used Date Smoking Tobacco: Former Cigarettes 0.5 8 2 2019 Smokeless Tobacco: Never Alcohol Use Standard Drinks/Week [...] Sign Reading Time Taken Comments Blood Pressure 136/75 12/28/2022 5:35 PM CDT Pulse 69 12/28/2022 10:00 PM CDT Temperature 36.4 ??C (97.5 ??F) 12/28/2022 5:35 PM CD T Respiratory Rate 16 12/28/2022 5:35 PM CDT Oxygen Saturation 97% 12/28/2022 10:00 PM CDT Inhaled Oxygen Concentration - - Weight 85.9 kg (189 lb 6 oz) 12/28/2022 5:35 PM CDT Height 152.4 cm (5') 12/28/2022 5:35 PM CDT Body Mass Index 36.98 12/28/2022 5:35 PM CDT Plan of Treatment Health Maintenance Due Date Last Done Comments Hepatitis C Virus (HCV) Screening 1995 Influenza Immunization (#1) 2024 05/27/2011, 1 SARS-COV-2 Immunization ( season) 2024 Respiratory Syncytial Virus (RSV) Immunization (Adult) (1 - 1-dose 75+ series) 2068 Hepatitis B Immunization Completed 997, 1993, 1993 Human Papillomavirus (HPV) Immunization Discontinued 12/02/2007, 08/05/2007, 03/23/2007 Meningococcal Immunization (ACWY) Aged Out 01/19/2009 No longer eligible based on patient's age to complete this topic DTaP/Tdap/Td Immunization Discontinued 2018, 04/11/2007, 12/30/1998, Additional history exists TdaP Immunization Completed 10/27/2018, 04/11/2007 Pneumococcal Immunization Combined Aged Out No longer eligible based on patient's age to complete this topic Rotavirus Immunization Aged Out No lo nger eligible based on patient's age to complete this topic Insurance MEDICAID [employer] Care Teams Electromechanical Technologist Relationship Specialty Start Date End Date Apolinar Crowley MD [address] [facility] [address] [place] [address] PCP - General Vehicle Sales Professional 11/06/22 Brayan Nazario MD [address] [facility] [address] [place] [address] Consulting Physician General Surgery 01/15/22
--- OUTSIDE RECORDS SUMMARY | 2024-04-27 18:03 | XMS_ITS | Encounter Summary ---
Author Organization [facility] Address [address] [place] [address] Care Team Providers Care Embalmer Assistant Name Role Phone Lilian Hernandez MD Primary Care Provider [phone] Encounter Details Date Type Department Care Team (Latest Contact Info) Description 03/12/2011 10:28 AM CDT - 03/12/2011 11:59 PM CDT Hospital Encounter [address] [address] Belia Wallace MD [address] [place], [place] [id number] [place] [address] Discharge Disposition: Home or Self Care Social History Tobacco Use Types Packs/Day Years Used Date Smoking Tobacco: Never Assessed Sex and Gender Information Value Date Recorded Sex Assigned at Not on file Gender Identity Not on file Sexual Orientation Not on file documented as of this encounter Medications at Time of Discharge Medication Sig Dispensed Refills Start Date End Date Other Control Patch 11/09/19 14 documented as of this encounter Progress Notes * Belia Wallace - 03/12/2011 11:00 AM CDT [facility] Department of Neurology NAME: CAIT MATHEWS : 1995 UNIT #: [id number] DATE SEEN: 03/12/2011 Cait Mathews, accompanied by her mother, was seen in the Pediatric Neurology Clinic at [facility] on March 12. The presenting complaint was a several hour long transient paresthesia involving her left upper extremity from elbow to fingertips. This is a singular occurrence. Maybe 5-1/2-6 weeks ago while at a [employer] and without any obvious prodrome or warning she described a loss of feeling involving essentially the whole left upper extremity from roughly the elbow down. There was no gradual progression and she reports no loss of function at the time. There were absolutely no other accompanying symptoms that she was aware of. She was seen in a local emergency room and as part of the evaluation numerous pinpricks were given to the area in question to the point that she had multiple small puncture wounds with bleeding but reports that she felt nothing. She distinguish this from the forearm and hand going to sleep because there was no pins and needles feeling. After about 5 hours it gradually resolved and there has been no recurrence there are any place else. Blood work was not the local hospital but no other testing and the family was somewhat concerned because apparently they were told that this was a hoax. There has been no subsequent testing carried out. As noted above, there has been no similar paresthesia or loss of sensation anywhere. A full review of systems reveals no present or previous history referring to transient or permanent difficulties involving special senses, motor sensory, balance, respiratory, cardiovascular, GI, , musculoskeletal, dermatologic systems. Nothing to suggest episodic loss of conscious, collapse, convulsion, trance-like state or other suggestion of seizure, although she does describe a mild postural hypotension without syncope or marked impairment of everyday activities. No specific history of difficulty with bowel or bladder control. There is no family history of similar episodes or other neurologic disease I was told. Her previous medical history contains some reports of menstrual irregularities, difficulty with control methods related to the above, as well as what sounds like a history of unexplained and undiagnosed hematochezia. Otherwise, I found nothing significant in the previous medical history, although there is some mention of depression and ADHD in previous records I thought. On physical examination today she is alert, cooperative and in no apparent distress, understanding conversational speech, replying clearly and to the point with no evidence of mood, thought, affect, orientation or memory disorder. Examination of fundi bilaterally normal. Cranial nerves II-XII seem intact and symmetrical and overall motor tone, bulk and strength within normal limits. She perceivedlight touch vibration: Sharp stimuli symmetrically over multiple points of testing on the forearm and hands. Deep tendon reflexes were of normal amplitude and symmetrical at biceps, triceps, knees and ankles. Stance and gait normal for age. No ataxia, dysmetria or nystagmus. Auscultation of the heart and cervical vessels was normal. The anatomical distribution argues against a peripheral etiology. There is nothing in the history and exam to suggest a specific pathophysiology for her disturbed sensation. For the moment then, the next step is to obtain neuro imaging - MRI with and without contrast - to look for evidence of a focal lesion that might point towards an explanation for this and suggest either further workup or possibly treatment. I spent some time talking about possible entities, the idea that an MRI scan does not always provide a clear answer and the plan will be to discuss the results of the MRI by phone after it is done and then talk about either further investigation or treatment depending on circumstances. This strategy and the reasoning behind it were acceptable to Cait and her mother. Dictated By: BELIA WALLACE MD WINSTON/Azael JOB ID: [id number] cc: LILIAN HERNANDEZ MD [employer] documented in this encounter Miscellaneous Notes * Miscellaneous Scans - Document, Scanned - 03/16/2011 12:19 PM CST [employer]ER [employer] WIRER documented in this encounter Plan of Treatment Not on file documented as of this encounter Procedures Procedure Name Priority Date/Time Associated Diagnosis Comments MRI BRAIN WWO CONTRAST Routine 03/12/2011 11:39 AM CDT Paresthesia documented in this encounter Results * MRI BRAIN WITH AND WITHOUT CONTRAST [...] Normal brain MRI. D: Juana Major MD Belia Wallace MD MR ORDERABLES documented in this encounter Visit Diagnoses Diagnosis Paresthesia Disturbance of skin sensation documented in this encounter Administered Medications Inactive Administered Medications - up to 3 most recent administrations Medication Order MAR Action Action Date Dose Rate Site gadopentetate dimeglumine (MAGNEVIST) injection Intravenous, CONTRAST ONCE, Starting on Morenita 03/12/11 at 1112, Until Wed03/13/11 at 1226 $ Given 03/12/2011 11:35 AM CDT 15 mL documented in this encounter Care Teams Embalmer Assistant Relationship Specialty Start Date End Date Lilian Hernandez MD [address] [place] [phone] PCP - General 10/21/10 11/07/13 documented as of this encounter
--- OUTSIDE RECORDS SUMMARY | 2024-04-27 18:03 | XMS_ITS | Encounter Summary ---
Author Organization [facility] Address [address] [facility] [place] [address] Care Team Providers Care Brake Mechanic Name Role Phone Gala Singh MD Primary Care Provider [phone] Reason for Visit * Reason Comments Cyst right wrist Encounter Details Date Type Department Care Team (Latest Contact Info) Description 10/21/2010 10:20 AM CDT - 10/21/2010 10:30 AM CDT Hospital Encounter [facility] Pediatrics - Orthopedics [address] [place] [id number] Discharge Disposition: Home or Self Care Social History Tobacco Use Types Packs/Day Years Used Date Smoking Tobacco: Never Assessed Sex and Gender Information Value Date Recorded Sex Assigned at Not on file Gender Identity Not on file Sexual Orientation Not on file documented as of this encounter Discharge Instructions * Patient Instructions* Ludwin Smith MD - 10/21/2010 11:28 AM CDT ORTHOPAEDIC CLINIC DISCHARGE INSTRUCTIONS SHEET DIAGNOSIS: Right wrist dorsal ganglion cyst Follow Up: No return appointment scheduled. X-ray to be obtained on return: none If you cannot keep an appointment, please call and notify Medications prescribed: ibuprofen (over the counter medication) may be used per instructions. Activity Restrictions: No restrictions Excuses: 1. School Excuse: 10/21/2010 If you have a question for the orthopaedic nurse, call [phone], ext. [phone]. Ludwin Smith MD documented in this encounter Progress Notes * Alexus Bruno MD - 10/21/2010 11:44 AM CDT 10/21/2010 HISTORY: Cait Mathews is a 14 y.o. 11 m.o. female who presents with a mass on the dorsum of her right hand. She is right handed. It causes her intermittent pain, that is occasionally disabling. Itmostly bothered her during school but less so now that she is out. She saw her PCP who gave her a cock up wrist splint and this helped a little. The patient denies new onset of numbness in her upper extremities. 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 PAST MEDICAL HISTORY: No past medical history on file. PAST SURGICAL HISTORY: No past surgical history on file. MEDICATIONS: No current outpatient prescriptions on file. ALLERGIES: Allergies as of 10/21/2010 ??? (Not on File) IMMUNIZATIONS: Immunization status: stated as current, but no records available. SOCIAL HISTORY: Patient lives with her mother only. she does not attend school. FAMILY HISTORY: Negative for any genetic conditions affecting children. ROS: A 12 point review of systems was obtained today and is positive for what is stated above. PHYSICAL EXAM: Patient is well-developed, well-nourished and in no acute distress. Breathing is non-labored and there are no audible wheezes. Head and trunk control are appropriate. The patient walkswith a normal heel/toe gait pattern and no evidence of a limp. Examination of the upper extremitiesout of the splint shows the skin to be intact and in good condition. HAND EXAM: no swelling or tenderness or instability; ligaments intact, FROM all hand, wrist, fingerjoints. SHe has a small cystic lesion on the dorsum of her wrist over the SL joint that is non tender, mobile, and transilluminates. The distal neurovascular examination is intact in the upper extremities. RADIOGRAPHS: Not taken ASSESSMENT: right wrist dorsal ganglion cyst PLAN: We recommend the patient go into a new cock up wrist splint as she wore out her old old. We will continue observation of this since it doesn't seem to bother her at the present. If the pain recurrs we will either schedule her for excision or aspiration. The patient will follow up as needed ifshe wishes to pursue further treatment. They will call in the interim with questions or concerns. I have personally seen and evaluated the above patient with the resident. I have discussed the results of the physical exam and all studies with the patient and family. I developed the above plan of care and discussed it with the patient. I have revised the above note and agree with the resident's assessment and plan of care. * Jeanne Castro LPN - 10/21/2010 10:50 AM CDT Patient has a cyst on her right wrist. PCP gave her a brace to wear and sent her to ortho for further eval documented in this encounter Miscellaneous Notes * Miscellaneous Scans - Document, Scanned - 01/16/2011 1:57 PM CDT documented in this encounter Plan of Treatment Not on file documented as of this encounter Visit Diagnoses Not on filedocumented in this encounter Care Teams Brake Mechanic Relationship Specialty Start Date End Date Gala Singh MD [address] [id number] PCP - General 10/21/10 11/07/13 documented as of this encounter
--- OUTSIDE RECORDS SUMMARY | 2024-04-27 18:03 | XMS_ITS | Encounter Summary ---
Author Organization [facility] Address [address] [place], [place] [address] [address] Care Team Providers Care Tray Service Worker Name Role Phone Unavailable Primary Care Provider Unavailabl e Reason for Visit * Reason Comments Blood Pressure * Auth/Cert - Closed Specialty Diagnoses / Procedures Referred By Contac t Referred To Contact Obstetrics and Gynecology [facility] 5e Ante/Mom Baby [address] [place] [address] Referral ID Status Reason Start Date Expiration Date Visits Re quested Visits Authorized [id number] Closed 11/09/2013 05/08/2014 1 Encounter Details Date Type Department Care Team (Late st Contact Info) Description 11/17/2013 1:00 PM CDT - 11/17/2013 2:34 PM CDT Surgery [facility] 5 [address] [place] [address] Filiberto Ray MD [address] [facility] [address] [place] [address] SECTION Surgery Details Date/Time Status Location OR Service Patient Class Case Class Case Type Trauma Case? 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 Patient is bottle feeding. She desires Depo for contraception. Results: No results found for this basename: ABORH, in the last 28059 hours Recent Labs Component Name 11/18/13 0539 11/17/13 0546 11/15/13 0806 WBC 15.7* 13.4* 15.6* HGB 12.7 13.2 13.3 HCT 38.2 39.5 38.2 PLTCOUNT 230 263 266 Discharge Vitals: BP 146/92 Pulse 94 Temp(Src) 98.4 ??F Resp 16 Wt 192 lb 12 oz (87.431 kg) BMI 37.64 kg/m2 Discharge Diagnosis: Pre-term delivery. Dispostion: Home on day # 4. Followup: with Dr. Mason in 1 week for Bp check . [...] bedtime. Take on an empty stomach. Lianne Kimberley * NIFEdipine CR 24hr 60 MG tablet Commonly known as: ADALAT CC Take 1 Tab by mouth daily before breakfast. Take on an empty stomach. Lianne hCu nitrofurantoin monohyd macro crystals 100 MG capsule [...] Instructions: Follow up with your Ob Dr. Mason in 1 week for a BP check Discharge Procedure Orders Why you were hospitalized Order Specific Question Answer Comments Your discharge diagnosis is delivery delivered [[id number]] No special diet needed Resume your normal [...] Comments Your discharge diagnosis is delivery delivered [[id number]] No special diet needed Resume your normal [...] encounter Discharge Instructions * Discharge Instructions* Hope Mccoy, RN - 11/21/2013 5:34 PM CDT DELIVERED MOTHER DISCHARGE INSTRUCTIONS Refer to Care for Mother Booklet for more information. Please contact your embroiderer hand for the following (page 4): 1. Any [...] example: your cell phone and cell phone shearer operator. PLEASE REMEMBER: 1) Always place your on his/her back to sleep. 2) Always [...] of this encounter Progress Notes * Hope Mccoy RN - 11/21/2013 6:58 PM CDT Discharge [...] desires Depo or Pills for contraception from [facility]. 8. Hematologic- Asymptomatic anemia, cont iron supplementation [...] output is 30 ml/hour or more while mistry catheter in place; patient able to void/empty [...] pain. She has ambulated and denies lightheadedness. Mistry is absent, patient is voiding without difficulty. [...] abdominal pain, headaches or needs. Report givento boomswing operator RN. * Hope Valverde RN - 11/20/2013 [...] output is 30 ml/hour or more while mistry catheter in place; patient able to void/empty [...] ability to breastfeed independently Outcome: Ongoing Cait Bárbara Mathews visits baby in the NICU. * [...] output is 30 ml/hour or more while mistry catheter in place; patient able to void/empty [...] pain. She has ambulated and denies lightheadedness. Mistry is absent, patient is voiding without difficulty. [...] well 9. Dispo: continue routine care Lucian Velez MD 11/19/2013 9:22 AM MFM note The patient was seen [...] output is 30 ml/hour or more while mistry catheter in place; patient able to void/empty [...] to a regular diet with flatus passed, mistry to gu out and voiding spontaneously. Mag sulfate stopped at 1600 and bp's improving. Transitioned to oral pain medication. Up with minimal assistance. Reflexes 1/1, mild to moderate edema, no visual field [...] breath, and leg pain. Has not ambulated, mistry present She is pumping feeding. Objective: Temp (36hrs) Max:99.2 ??F Vitals: 11/17/13 1825 07/11/204411/17/13 2345 11/18/13 0145 BP: 138/74 142/96 146/88 138/60 Pulse: 80 91 86 94 Temp: 98.4 ??F 97.9 ??F 98.3 ??F Resp: 18 Weight: SpO2: 97% 99% 98% Intake/Output Summary [...] for this basename: ABORH, in the last 08811 hours Assessment/Plan: 18 y.o.yo , s/p c/s, [...] x1 to go down to the NICU. Mistry intact, draining large amounts of clear yellow urine. Negative Mono's. All paperwork reviewed with pt. * Tawanna Yoo RN - 11/18/2013 3:20 AM CDT Problem: Fall Risk Goal: Patient will remain free of falls Outcome: Andrea Chavira currently has a mistry catheter and does not get out of [...] output is 30 ml/hour or more while mistry catheter in place; patient able to void/empty bladder after catheter is removed 6. Homans 7. Bowel sounds 8. Emotions (blues) Outcome: Ongoing Kaylen breasts and nipples are observed intact prior to initiating pumping post op c/s. Fundus also noted firm, midline, and at U-2 with small amount of bright red bleeding. Perineum intact with moderate swelling; perineal care provided with mistry care. Mistry catheter intact; draining large amounts of clear [...] Infection of urinary catheter avoided. Outcome: Ongoing Mistry care done every 8 hours to prevent [...] 4:46 PM CDT Problem: High Risk for [employer] Injury Related to Hypertension Goal: Blood Pressure [...] Being Goal: Viable is Safely Delivered Outcome: Goal Met Date [...] behaviors exhibit an appropriate level of anxiety. Cyndiamy family and friends at the bedside providing great support. * Candelaria Rainey RN - 11/17/2013 2:16 PM CDT [...] baseline 130, moderate variability, reactive, no decelerations [place]: no contractions Urine culture final result (collected [...] 24 hour urine protein 5268mg (at Dr. Mason's) - s/p betamethasone 11/08-11/09 - NICU consulted [...] 24 hr urine 5268mg (done with Dr. Mason) 4. S/p Mg 5. Cont Adalat 60/30mg [...] GBS neg FWB reassuring, 1479br(12), st /2-3 Sumaya Hudson MD 11/17/2013 6:54 AM MFM [...] 3:35 AM CDT Problem: High Risk for [employer] Injury Related to Hypertension Goal: Blood Pressure [...] remain free of falls Outcome: Ongoing * Candelaria Rainey RN - 11/16/2013 6:05 PM CDT Shift Summary: Pt resting in bed. Reports +FM. Denies ctxs, LOF, vb, visual changes or epigastric pain. States she no longer has headache. BPs within acceptable range. Encouraged to call with any needs or concerns. Pt knows she is NPO after midnight. * Candelaria Rainey RN - 11/16/2013 6:05 PM CDT Problem: High Risk for [employer] Injury Related to Hypertension Goal: Blood Pressure Remains within Acceptable Limits Outcome: Ongoing Cait's blood pressures have remained within acceptable limits [...] 11/15/131956 98.2 ??F 18 150/88 mmHg - 11/15/131955 - - - 96 % 11/15/13 1835 [...] for C section tomorrow 11/17 (34 weeks) Ulysses Sheldon, MS4 11/16/13 * Gustavo Armendariz MD - 11/16/2013 [...] 24 hr urine 5268mg (done with Dr. Mason) 4. Mg restarted yesterday for increasing BPs, [...] 2. GBS neg FWB reassuring, 1479br(12), st 11/08- Dispo: transfer to floor Sumaya Hudson MD [...] to preeclampsia Gustavo Armendariz MD * Cordell aBuer RN - 11/16/2013 6:19 AM CDT Shift Summary Patient reported severe headache last evening & believes it is from the Magnesium. Rated it a / but was able to snack, talk on [...] 12:55 AM CDT Problem: High Risk for [employer] Injury Related to Hypertension Goal: Blood Pressure [...] 130 bpm, moderate variability, reactive, no decelerations [place] is irritable A/P: 18 y.o. 33w6d Pre-eclampsia with IUGR 1. BP stable 2. magnesium for seizure ppx 3. S/p ANCS for improved outcomes 4. S/p IV labetalol today 5. CPM, PSCU for maternal monitoring, Ludwin Menjivar MD 11/16/2013 12:12 AM * Rose Allan RN - 11/15/2013 6:58 PM CDT Shift [...] pelvis pressure, vaginal discharge or bleeding. Reflexes /. Report positive FM. Resting in bed at [...] Koroma MD 11/15/2013 4:55 PM * Rose Allan RN - 11/15/2013 2:00 PM CDT Problem: High Risk for [employer] Injury Related to Hypertension Goal: Blood Pressure [...] depletion . Skin/Wound: intact. Last recorded BM 7-8-14 . Current diet order: Regular diet P.O.intake [...] low nutritional risk. Recommend daily weights. Ksenia Mg DTR 11/15/2013 11:00 AM * Sumaya Hudson [...] - 169/93 mmHg 11/15/13 0455 - - 14 - 11/15/13 0427 - - - 163/90 mmHg 11/15/13 0426 - - - 167/84 mmHg 11/15/13 0413 - - 16 - 11/15/13 0300 - - 18 - 11/15/13 0143 - - - 11/15/13 0026 - - - 150/88 mmHg 11/15/13 0018 - - 16 - 11/14/13 2346 - - 16 - 11/14/13 2244 - - - 156/89 mmHg 11/14/13 2238 - - 18 - 11/14/13 2124 98.3 ??F - - 144/89 mmHg 11/14/132024 - 84 18 126/84 mmHg 11/14/13 2015 [...] >100,000 CFU/mL Gram negative bacilli - lactose retail solar advisor; >100,000 CFU/mL enterococcus Assessment and Plan: Patient [...] 24 hour urine collection done at Dr. Mason's. Records pending. - s/p betamethasone 11/08-11/09 - NICU consulted 11/09, appreciate input 2. UTI - culture confirmed - continue Nitrofurantoin 100mg BID 3. IUGR - EFW <10% for GA on sonogram 11/09 4. Breech presentation - consented for C section 5. Supervision of - Records of labs pending from Dr. Mason - GBS negative on 11/08 - GC/CT [...] 24 hr urine 5268mg (done with Dr. Mason) 4. S/p magnesium for seizure ppx 5. [...] GBS neg FWB reassuring, 1479br(12), st /2-3 Sumaya Hudson MD 11/15/2013 7:08 AM MFM [...] 5:14 AM CDT Problem: High Risk for [employer] Injury Related to Hypertension Goal: Blood Pressure [...] transferred to PSCU report given to Daniel Vo RN. * Jolanta Lin MD - 11/14/2013 [...] 24 hour urine collection done at Dr. Mason's. Records pending. - Elevated BP's on admission [...] - Records of labs pending from Dr. Mason - GBS negative on 11/08 - GC/CT [...] 3. 24 hr urine done with Dr. Mason-records requested 4. S/p magnesium for seizure ppx 5. S/p ANCS for improved outcomes 6. S/p NICU consult 7. UA dopplers 2.5 on 11/09 8. Continue adalat 30XL BID 9. BPs 130-140/70-90s Breech presentation 1. Consented for C/S upon admission ?UTI- patient c/o dysuria today. UA from admission with questionable UTI. Will start Macrobid. Supervision of 1. Records requested from Dr. Mason 2. GBS neg FWB reassuring, 1479br(12), st 7/2-3 Sumaya Hudson MD 11/14/2013 7:06 AM Maternal- Medicine Progress Note Improved BP's I have reviewed the patient's chart, interviewed and examined the patient. Furthermore, I agree with the assessment and plan noted. This has been discussed with the medical student/resident/fellow and patient. EJV * Irene Shell, RN - 11/14/2013 4:51 AM CDT Shift Summary Rested though night. Denies cramping ctx or LOF. +FM no headache, blurry vision, or epigastric painto report. Will continue to monitor. Patient to call with any needs. * Irene Shell RN - 11/14/2013 4:50 AM CDT Problem: High Risk for [employer] Injury Related to Hypertension Goal: Blood Pressure [...] Intake/Output Summary (Last 24 hours) at 11/13/13 07 Last data filed at 11/13/13 0406 Gross [...] 8.8-may repeat as pt possibly had UTI; repeat urine culture pend 3. 24 hr urine done with Dr. Mason-records requested 4. S/p magnesium for seizure ppx 5. S/p ANCS for improved outcomes 6. S/p NICU consult 7. UA dopplers 2.5 on 11/09 8. Continue adalat 30XL BID 9. BPs 130-150/70-90s Breech presentation 1. Consented for C/S upon admission Supervision of 1. Records requested from Dr. Mason 2. GBS neg FWB reassuring, 1479br(12), st [...] 5:49 AM CDT Problem: High Risk for [employer] Injury Related to Hypertension Goal: Blood Pressure [...] changes in condition. Will give report to boomswing operator Rn. * Isaac Allan MD - 11/12/2013 8:49 AM CDT MFM Attending Progress Note Addendum Date: 11/12/2013 I [...] Continue inpatient care due to preeclampisa Isaac Allan MD * Melanie Ocasio RN - 11/12/2013 [...] 8.8-september repeat as pt possibly had UTI; rpt UA improved 3. S/p magnesium for seizure ppx 4. S/p ANCS for improved outcomes 5. S/p NICU consult, appreciated 6. Formal US with dopplers Wednesday 7. Continue adalat 30XL daily for BP control 8. BPs 130-160/80-90s overnight 2. Breech presentation 1. Consented for C/S upon admission 3. Supervision of 1. Records requested from Dr. Mason 2. GBS pending 4. FWB reassuring, 1479br(12), st 7/2-3 Jennifer Liao MD 11/12/2013 6:06 AM * Melanie Ocasio RN - 11/12/2013 5:36 AM CDT Problem: High Risk for [employer] Injury Related to Hypertension Goal: Blood Pressure [...] damage is evident. Outcome: Ongoing * Rose Allan RN - 11/11/2013 7:23 PM CDT Shift summary: Pt denies visual changes, headache, or epigastric pain. Denies backache, abdominal cramping,contractions, pelvis pressure, vaginal discharge or bleeding. Vital signs via flow sheet. Reflexes 05/10. Report positive FM. Resting in bed at this time. Aware to call staff for any changes. * Isaac Allan MD - 11/11/2013 9:55 AM CDT MFM [...] Continue inpatient care due to preeclampisa Isaac Allan MD * Rose Allan RN - 11/11/2013 9:35 AM CDT Problem: High Risk for [employer] Injury Related to Hypertension Goal: Blood Pressure Remains within Acceptable Limits Outcome: Ongoing * Jennifer iLao MD - 11/11/2013 5:56 AM CDT R2 [...] Supervision of 1. Records requested from Dr. Mason 2. GBS pending 4. FWB reassuring, 1479br(12), [...] 4:42 AM CDT Problem: High Risk for [employer] Injury Related to Hypertension Goal: Blood Pressure [...] 10:51 AM CDT Problem: High Risk for [employer] Injury Related to Hypertension Goal: Blood Pressure [...] as Support System Outcome: Ongoing * Isaac Allan MD - 11/10/2013 9:16 AM CDT M Attending Progress Note Addendum Date: 11/10/2013 I [...] need delivery depending on clinical circumstances Isaac Allan MD * Aguilar Bustamante MD - 11/10/2013 [...] Obtain PNL and dating US from Dr. Mason 2. FWB reassuring 1479br(11.6) 11/08-3 Aguilar Bustamante 11/10/2013 7:11 AM * Cornel [...] 2:24 AM CDT Problem: High Risk for [employer] Injury Related to Hypertension Goal: Blood Pressure [...] Signs are medically acceptable Outcome: Ongoing Cait Bárbara Mathews coughs and deep breathes independently. Goal: [...] nurse of any changes in status. * Humaira Bourne RN - 11/09/2013 4:30 PM CDT [...] Ksenia Mg DTR 11/09/2013 11:27 AM * Humaira Bourne RN - 11/09/2013 9:24 AM CDT Problem: High Risk for [employer] Injury Related to Hypertension Goal: Blood Pressure [...] or 2nd trimester u/s. PNC with Dr. Mason. Her current is significant for: elevated BP Patient Active Problem List Diagnosis ??? Tobacco abuse ??? Preeclampsia ??? Breech presentation ??? Supervision of high-risk Patient presents for evaluation from [place] after finding out that she has elevated protein in her urine. She has been receiving PNC from Dr. Mason in [place]. Elevated BP has been noted with proteinuria on her office urine dips. This prompted 24 hour urine collection that revealed >300 mg of protein perthe patient. She was told to present to [facility] for further eval. On presentation, the patient [...] per minute. moderate variability, reactive, no decelerations [place]: none Ultrasound at Bedside: Presentation: breech KOREY: [...] 44.0-73.0 % Lymph 19.3 (*) 20.0-43.0 % Swift 8.3 5.0-13.0 % Eos 0.6 0.0-6.0 % Baso 0.3 0.0-2.0 % Immature Grans 0.4 0-1 % Neutro Abs 8.28 (*) 2.01-7.14 x10^9/L Lymph Abs 2.25 1.07-3.94 x10^9/L Swift Abs 0.97 0.26-1.07 x10^9/L Eosin Abs 0.07 [...] Yellow, Dark Yellow Clarity UA Cloudy Specific [place] UA 1.022 1.005-1.030 pH UA 6.5 5.0-8.0 [...] Obtain PNL and dating US from Dr. Mason 5. FWB reassuring 1479br(11.6) st 11/08- Discussed [...] are as follows: Recent Labs Component Name 11/08/132046 WBC 11.7* RBC 4.00 HGB 12.0 HCT 34.8* MCV 87.0 MCHC 34.5 RDWCV 12.8 PLTCOUNT 237 NEUTPCT 71.1 LYMPHPCT 19.3* MONOCYTPCT 8.3 EOSINPCT 0.6 BASOPHILPCT 0.3 GRANSIMMPCT 0.4 LYMPHABS 2.25 MONOCYTABS 0.97 EOSINABS 0.07 BASOABS 0.03 IMMGRANSABS 0.05 NRBCAUTO 0 Recent Labs Component Name 11/08/132046 SODIUM 141 POTASSIUM 3.7 CHLORIDE 109* CO2 22 BUN 8 CREATININE 0.35* GLUCOSE 100 CALCIUM 9.0 ALBUMIN 2.2* ALKPHOS 187* ALT 21 AST 17 TBIL 0.1* TPROT 5.5* EGFR >60 Recent Labs Component Name 11/08/132046 URICACID 6.6* Relevant findings are as follows: [...] Stop 0952 Non-Stress Test (NST) Cait Mathews [id number] 11/18/2013 8:51 AM Indications: Preeclampsia Interpretation: Fetus [...] 11/16/2013 11:30 PM CDTProcedure(s): NON-STRESS TEST Start: 2233 End: 2305 R3 Non-Stress Test (NST) Cait Mathews [id number] Indications: Severe PreE Interpretation: Fetus A: Baseline: [...] - 11/16/2013 5:21 PM CDTProcedure(s): NONSTRESS TEST [facility] 11/16/13 Start 1622 Stop 1653 R3 Non-Stress Test (NST) Cait Friedmaners [id number] Indications: Severe PreE Interpretation: Fetus A: Baseline: [...] - 11/16/2013 9:16 AM CDTProcedure(s): NONSTRESS TEST T 11/16/13 Start 0732 Stop 0803 R3 Non-Stress Test (NST) Cait [facility] [id number] Indications: Severe PreE Interpretation: Fetus A: Baseline: [...] CDT R3 Non-Stress Test (NST) Cait Mathews [id number] Indications: Severe Preeclampsia Interpretation: Fetus A: Baseline: 130 beats/minute heart variability: moderate reactive Decelerations: none Contractions: none Recommendations: Continue monitoring as scheduled. Sumaya Hudson MD Associated attestation - Gustavo Armendariz MD - 11/16/2013 11:07 PM CDT Attending Physician I have reviewed the tracing and concur with the interpretation of the above procedures. Assessment: Reactive tracing Plan: kick counts. Follow up studies as clinically indicated. Gustavo Armendariz MD * Sumaya Hudson MD - 11/15/2013 7:43 AM CDT R3 Non-Stress Test (NST) Cait Mathews [id number] Indications: s/p fall Interpretation: Fetus A: Baseline: [...] NONSTRESS TEST Non-Stress Test (NST) Cait Mathews [id number] 11/15/2013 3:12 AM Indications: Patient Active Problem List Diagnosis ??? Tobacco abuse ??? Preeclampsia ??? Breech presentation ??? Supervision of high-risk Interpretation: Fetus A: Baseline: 130s beats/minute mod variability reactive Contractions: none Decelerations: Rare variable Impression: reassuring Recommend: continue testing as scheduled Jolanta Mcclendon MD 11/15/2013 3:12 AM Associated attestation - Gustavo Armendariz MD - [...] 1754 R3 Non-Stress Test (NST) Cait Mathews [id number] Indications: PreEclampsia Interpretation: Fetus A: Baseline: 140 [...] NST R3 Non-Stress Test (NST) Cait Mathews [id number] Indications: PreEclampsia Interpretation: Fetus A: Baseline: 140 beats/minute heart variability: moderate reactive Decelerations: none Contractions: none Recommendations: Continue monitoring as scheduled. Sumaay Hudson MD Associated traci - Jerry Lane MD - 11/15/2013 6:45 PM CDT I have reviewed the non-stress test(s) and/or ultrasound images. I agree with the interpretations and/or biometries as documented. Chad Lane MD * Sumaya Hudson MD - 11/12/2013 5:35 PM CDTProcedure(s): NONSTRESS TEST 11/12/13 Begin: 1659 End: 1735 R3 Non-Stress Test (NST) Cait Mathews [id number] Indications: PreEclampsia Interpretation: Fetus A: Baseline: 135 beats/minute heart variability: moderate reactive Decelerations: none Contractions: none Recommendations: Continue monitoring as scheduled. Sumaya Hudson MD Associated attzachary - Gustavo Armendariz MD - 11/16/2013 11:08 PM CDT Attending Physician I have reviewed the tracing and concur with the interpretation of the above procedures. Assessment: Reactive tracing Plan: kick counts. Follow up studies as clinically indicated. Gustavo Armendariz MD * Sumaya Hudson MD - 11/12/2013 11:59 AM CDTProcedure(s): NON-STRESS TEST NST:11/12/13 Start:1019 Stop:1055 R3 Non-Stress Test (NST) Cait Mathews [id number] Indications: PreEclampsia Interpretation: Fetus A: Baseline: 135 beats/minute heart variability: moderate reactive Decelerations: none Contractions: irritable Recommendations: Continue monitoring as scheduled. Sumaya Hudson MD Associated attGustavo Jackson MD - 11/16/2013 11:08 PM CDT Attending Physician I have reviewed the tracing and concur with the interpretation of the above procedures. Assessment: Reactive tracing Plan: kick counts. Follow up studies as clinically indicated. MD Maria Elena Vasquez Emma R, MD - 11/12/2013 12:14 AM CDTProcedure(s): NONSTRESS TEST NST 11/11/13 Start 2240 Stop 2320 Non-Stress Test (NST) Cait Mathews [id number] 11/12/2013 8:53 AM Indications: Preeclampsia Interpretation: Fetus A: Baseline: 140s beats/minute mod variability reactive, although tracing is difficult to follow Contractions: none Decelerations: Broken up variables Recommend: continue testing as scheduled Jennifer Liao MD Associated attestation - Isaac Allan MD - 11/12/2013 12:00 PM CDT MFM Attending NST reviewed. Agree with interpretation. MD Maria Elena Carias Emma R, MD - 11/11/2013 4:48 PM CDTProcedure(s): NON-STRESS TEST NST Date: 11/11/13 Time: 9075-6959 Non-Stress Test (NST) Cait Mathews [id number] 11/12/2013 8:54 AM Indications: Preeclampsia Interpretation: Fetus A: Baseline: 130s beats/minute mod variability reactive Contractions: occ irritability Decelerations: none Recommend: continue testing as scheduled Jennifer Liao MD Associated attestation - Isaac Allan MD - 11/12/2013 12:00 PM CDT MFM Attending NST reviewed. Agree with interpretation. MD Maria Elena Carias Emma R, MD - 11/11/2013 11:04 AM CDTProcedure(s): NON-STRESS TEST NST Date: 11/11/13 Time: 5571-8385 Non-Stress Test (NST) Cait Friedmaners [id number] 11/11/2013 4:47 PM Indications: Preeclampsia Interpretation: Fetus A: Baseline: 120s beats/minute mod variability reactive Contractions: irritability Decelerations: none Recommend: continue testing as scheduled Jennifer Liao MD Associated attestation - Isaac Allan MD - 11/12/2013 12:00 PM CDT MFM Attending NST reviewed. Agree with interpretation. MD Maria Elena Carias Emma R, MD - 11/10/2013 11:33 PM CDTProcedure(s): NONSTRESS TEST 11/10/13 Start:222 Stop:2307 Non-Stress Test (NST) Cait Bárbara Reid [id number] 11/12/2013 8:57 AM Indications: Preeclampsia Interpretation: Fetus A: Baseline: 120s beats/minute mod variability reactive Contractions: Mild irriitability Decelerations: none Recommend: continue testing as scheduled Jennifer Liao MD Associated attestation - Isaac Allan MD - 11/12/2013 12:00 PM CDT MFM Attending NST reviewed. Agree with interpretation. MD Maria Elena Carias Emma R, MD - 11/10/2013 5:45 PM CDTProcedure(s): NONSTRESS TEST NST: 11/10/2013 Start: 1641 Finish: 1723 Non-Stress Test (NST) Cait Granger Reid [id number] 11/11/2013 4:53 PM Indications: Preeclampsia Interpretation: Fetus A: Baseline: 120s beats/minute mod variability reactive Contractions: none Decelerations: none Recommend: continue testing as scheduled Jennifer Liao MD Associated attestmallory - Isaac Allan MD - 11/12/2013 12:00 PM CDT MFM Attending NST reviewed. Agree with interpretation. MD Maria Elena Carias Emma R, MD - 11/10/2013 10:47 AM CDTProcedure(s): NONSTRESS TEST NST: 11/10/2013 Start: 1005 Finish:1038 Non-Stress Test (NST) Cait Mathews [id number] 11/11/2013 4:54 PM Indications: Preeclampsia Interpretation: Fetus A: Baseline: 120s beats/minute mod variability reactive Contractions: none Decelerations: none Recommend: continue testing as scheduled Jennifer Liao MD Associated Isaac Ferraro MD - 11/12/2013 12:00 PM CDT MFM Attending NST reviewed. Agree with interpretation. MD Maria Elena Carias Emma R, MD - 11/10/2013 12:46 AM CDTProcedure(s): NONSTRESS TEST 11/09/13 Start:2237 Stop:2336 Non-Stress Test (NST) Cait Mathews [id number] 11/10/2013 8:40 AM Indications: Preeclampsia Interpretation: Fetus A: Baseline: broken strip, but appears to be 140-150ss beats/minute mod variability reactive, prolonged accels Contractions: none Decelerations: occ prolonged decels to 120s Recommend: continue testing as scheduled Jennifer Liao MD Associated attIsaac Willis MD - 11/10/2013 4:46 PM CDT MFM Attending NST reviewed. Agree with interpretation. Isaac Allan MD * Gabbi Main RDMS - 11/09/2013 1:41 PM CDT Patient was seen for ultrasound 11/09/2013 Patient was taken off the NST at 105p, Moinca was notified The ultrasound was completed at 135p, Humaira was notified Position - breech KOREY - 8.7 EFW - 1705 g S/D - 2.5 Pi .91 CL - BPP - Heart rate-132 bpm Comments- Ultrasound completed by as * Ludwin Menjivar MD - 11/08/2013 10:20 PM CDT Bedside Obstetric Ultrasound Report Cait Mathews [id number] 11/08/2013 10:20 PM No LMP recorded. Patient [...] EFW above. Recommendations: Needs complete ultrasound. Primary Progress Worker: Dr. Michael Menjivar MD Associated attestation - [...] and reports being born 6 weeks early. Quantitative Researcher: Dr. Gala Singh Discussion: Neonatology was requested [...] the need for transfer to theNICU at [place] for further management. I discussed adverse outcome [...] with the patient. Janessa Coppola MD Attending Rail Gang Supervisor documented in this encounter Nursing Notes * [...] Gave her electric breastpump, provided by her [place] Medicaid benefits. Reviewed set up and instructions for use. She verbalizes understanding and denies any questions. Enc to ask for consult with Vp Platforms as needed while baby in NICU. Pat [...] the chart of Baby Girl Cait Mathews. Consult: Patient holds baby skin to [...] the patient's : Reid Baby Girl Cait [[id number]] Date of 11/17/2013 Time of : 3:48 PM Sex: Female Weight: 1790 g (3 lb 15.1 oz) (1 min): 5 (5 min): 8 (10 min): Normal appearring gravid uterus, tubes and ovaries. Estimated Blood Loss: 400 mls Drains: mistry catheter Total IV Fluids: 2000 mls UOP: [...] The bladder blade was removed and the infant was delivered from a breech presentation using the typical breech maneuvers. The cord clamped and cut. The was handed to waitingpediatricians. Cord gases were [...] fascia was reapproximated with Looped PDS in arunning fashion. The skin was closed with Monocryl. [...] Information for the patient's : Veto Mathews [[id number]] Estimated Gestational Age: Information for the patient's mother: Cait Mathews [[id number]] 34w0d Delivery Details Date of 11/17/2013 Time [...] Disposition: Discard Gases Sent: Yes Venous Arterial [place] Stabilization Suction Method: Suction Trap Bulb Secretions: [...] Choice Human Milk [16] Present at Delivery: Umesh was present for delivery. documented in this [...] - 10.7 x10^9/L 11/18/2013 6:08 AM CDT [facility] RBC 4.30 3.80 - 5.20 x10^12/L 11/18/2013 6:08 AM CDT [facility] Hemoglobin 12.7 12.0 - 15.6 gm/dL 11/18/2013 6:08 AM CDT [facility] Hematocrit 38.2 35.9 - 45.5 % 11/18/2013 6:08 AM CDT [facility] MCV 88.8 80.7 - 98.3 fl 11/18/2013 6:08 AM CDT [facility] MCH 29.5 26.7 - 34.0 pg 11/18/2013 6:08 AM CDT [facility] MCHC 33.2 30.8 - 35.9 gm/dL 11/18/2013 6:08 AM CDT [facility] Platelet Count 230 153 - 416 x10^9/L 11/18/2013 6:08 AM CDT [facility] RDW-CV 13.2 12.1 - 14.9 % 11/18/2013 6:08 AM CDT [facility] MPV 11.0 9.4 - 12.9 fl 11/18/2013 6:08 AM CDT [facility] Neutrophils % 84.5(H) 44.0 - 73.0 % 11/18/2013 6:08 AM CDT [facility] Lymphocytes % 10.4(L) 20.0 - 43.0 % 11/18/2013 6:08 AM CDT [facility] Monocytes % 4.5(L) 5.0 - 13.0 % 11/18/2013 6:08 AM CDT [facility] Eosinophils % 0.2 0.0 - 6.0 % 11/18/2013 6:08 AM CDT [facility] Basophils % 0.1 0.0 - 2.0 % 11/18/2013 6:08 AM CDT [facility] Immature Granulocytes 0.3 0 - 1 % 11/18/2013 6:08 AM CDT [facility] Neutrophil Absolute 13.22(H) 2.01 - 7.14 x10^9/L 11/18/2013 6:08 AM CDT [facility] Lymphocytes Absolute 1.62 1.07 - 3.94 x10^9/L 11/18/2013 6:08 AM CDT [facility] Monocytes Absolute 0.71 0.26 - 1.07 x10^9/L 11/18/2013 6:08 AM CDT [facility] Eosinophils Absolute 0.03 0 - 0.47 x10^9/L 11/18/2013 6:08 AM CDT [facility] Basophils Absolute 0.02 0 - 0.08 x10^9/L 11/18/2013 6:08 AM CDT [facility] Immature Granulocytes Absolute 0.05 0.00 - 0.06 x10^9/L 11/18/2013 6:08 AM CDT [facility] nRBC Auto 0 /100 WBC 11/18/2013 6:08 AM CDT [facility] Blood BLOOD SPECIMEN / Unknown Lab Venipuncture / Unknown 11/18/2013 5:39 AM CDT 11/18/2013 5:48 AM CDT Sumaya Hudson MD LAB - HEMATOLOGY ORDERABLES Performing Organization Address City/State/[facility] Co de Phone Number [facility] [address] [place] [address] * (ABNORMAL) BLOOD GASES CORD CHAU (ISTAT) (11/17/2013 3:58 PM CDT) Blood CORD BLOOD SPECIMEN / Unknown 11/17/2013 3:58 PM CDT 11/17/2013 4:04 PM CDT Viet Marquez MD LAB - POINT OF CARE ORDERABLES [facility] [address] [place] [address] * GROSS + MICRO EXAM (STL) (11/17/2013 3:58 PM CDT) Case Report Surgical Pathology Report ? Case: [id number] ? Authorizing Provider: ??Filiberto Ray MD ?Collected: ? 11/17/2013 03:58 PM ? Ordering Location: ? [facility] ? Received: ?11/18/2013 05:20 AM ? Pathologist: ? Jhoana Velez MD ? Signed Out: ?11/20/2013 01:45 PM (Final) Specimen: ?Placenta 3rd Trimester ? 11/20/2013 1:45 PM CDT [facility] Final Diagnosis 1. Placenta, delivery: -- Third trimester placenta -- Three-vessel umbilical cord -- Unremarkable membranes -- Scattered calcifications DARRIN/jatin 11/20/2013 1:45 PM CDT [facility] Gross Description Submitted fixed in formalin in one container for gross and microscopic examination labeled with the patient's name Reid Cait H., placenta, is a placenta with attached segment [...] Placental parenchyma PW/scs 11/20/2013 1:45 PM CDT [facility] Microscopic Description Sections of the umbilical cord show three vessels with no evidence of vasculitis or funisitis. ??Sections of the membranes show unremarkable histology and are free of chorioamnionitis. ??Meconium is not identified. ??Sections of the placental disc show mature chorionic villi with scattered calcifications. ??Hemorrhage or infarction is not seen. ?? GC/jatin 11/20/2013 1:45 PM CDT [facility] Pathology/Cytolo gy ENTIRE PLACENTA / Unknown 11/17/2013 3:58 PM CDT 11/18/2013 5:20 AM CDT Filiberto Ray MD LAB - PATHOLOGY/CYTO LOGY ORDERABLES Performing Organization Address City/State/[facility] Co de Phone Number [facility] [address] [place] [address] * (ABNORMAL) BLOOD GASES CORD ART (ISTAT) (11/17/2013 3:53 PM CDT) pH Cord Arterial POCT 7.25 7.20 - 7.34 pH 11/19/2013 10:52 AM CDT [facility] pCO2 Cord Arterial POCT 57.0(H) 45 - 55 mmHg 11/19/2013 10:52 AM CDT [facility] pO2 Cord Arterial POCT 9(L) 12 - 25 mmHg 11/19/2013 10:52 AM CDT [facility] HCO3 Cord Arterial POCT 24.8 15 - 29 mmol/L 11/19/2013 10:52 AM CDT [facility] BE Cord Arterial POCT -4(L) -2.9 - 8.3 mmol/L 11/19/2013 10:52 AM CDT [facility] TCO2 Cord Arterial POCT 27 mmol/L 11/19/2013 10:52 AM CDT [facility] O2 Saturation Cord Art % Calc POCT 7 % 11/19/2013 10:52 AM CDT [facility] Site CORD ART 11/19/2013 10:52 AM CDT [facility] Sample iSTAT CORD A 11/19/2013 10:52 AM CDT [facility] Blood CORD BLOOD SPECIMEN / Unknown 11/17/2013 3:53 PM CDT 11/19/2013 10:52 AM CDT Viet Marquez MD LAB - POINT OF CARE ORDERABLES Performing Organization Address City/State/[facility] Co de Phone Number [facility] [address] [place] [address] * (ABNORMAL) CBC W AUTO DIFFERENTIAL (11/17/2013 5:46 AM CDT) WBC 13.4(H) 4.4 - 10.7 x10^9/L 11/17/2013 6:25 AM CDT [facility] RBC 4.46 3.80 - 5.20 x10^12/L 11/17/2013 6:25 AM CDT [facility] Hemoglobin 13.2 12.0 - 15.6 gm/dL 11/17/2013 6:25 AM CDT [facility] Hematocrit 39.5 35.9 - 45.5 % 11/17/2013 6:25 AM CDT [facility] MCV 88.6 80.7 - 98.3 fl 11/17/2013 6:25 AM CDT [facility] MCH 29.6 26.7 - 34.0 pg 11/17/2013 6:25 AM CDT [facility] MCHC 33.4 30.8 - 35.9 gm/dL 11/17/2013 6:25 AM CDT [facility] Platelet Count 263 153 - 416 x10^9/L 11/17/2013 6:25 AM CDT [facility] RDW-CV 13.1 12.1 - 14.9 % 11/17/2013 6:25 AM CDT [facility] MPV 11.7 9.4 - 12.9 fl 11/17/2013 6:25 AM CDT [facility] Neutrophils % 74.4(H) 44.0 - 73.0 % 11/17/2013 6:25 AM CDT [facility] Lymphocytes % 17.2(L) 20.0 - 43.0 % 11/17/2013 6:25 AM CDT [facility] Monocytes % 7.2 5.0 - 13.0 % 11/17/2013 6:25 AM CDT [facility] Eosinophils % 0.7 0.0 - 6.0 % 11/17/2013 6:25 AM CDT [facility] Basophils % 0.1 0.0 - 2.0 % 11/17/2013 6:25 AM CDT [facility] Immature Granulocytes 0.4 0 - 1 % 11/17/2013 6:25 AM CDT [facility] Neutrophil Absolute 9.95(H) 2.01 - 7.14 x10^9/L 11/17/2013 6:25 AM CDT [facility] Lymphocytes Absolute 2.31 1.07 - 3.94 x10^9/L 11/17/2013 6:25 AM CDT [facility] Monocytes Absolute 0.97 0.26 - 1.07 x10^9/L 11/17/2013 6:25 AM CDT [facility] Eosinophils Absolute 0.09 0 - 0.47 x10^9/L 11/17/2013 6:25 AM CDT [facility] Basophils Absolute 0.02 0 - 0.08 x10^9/L 11/17/2013 6:25 AM CDT [facility] Immature Granulocytes Absolute 0.06 0.00 - 0.06 x10^9/L 11/17/2013 6:25 AM CDT [facility] nRBC Auto 0 /100 WBC 11/17/2013 6:25 AM T [facility] Blood BLOOD SPECIMEN / Unknown Lab Venipuncture / Unknown 11/17/2013 5:46 AM CDT 11/17/2013 6:09 AM CDT Gertrudis Thompson MD LAB - HEMATOLOGY ORD ERABLES [facility] [address] [place] [address] * TYPE + SCREEN PANEL (11/17/2013 5:46 AM CDT) Pathologist [facility] ABO B 11/17/2013 6:58 AM CDT [facility] Rh Type Positive 11/17/2013 6:58 AM CDT [facility] Antibody Screen Negative 11/17/2013 6:58 AM CDT [facility] Miscellaneous samples (specimen) BLOOD SPECIMEN / Unknown Lab Venipuncture / Unknown 11/17/2013 5:46 AM CDT 11/17/2013 6:09 AM CDT Gertrudis Thompson MD LAB - BLOOD BANK ORD [employer]ener[employer] [facility] * (ABNORMAL) CBC W AUTO DIFFERENTIAL (11/15/2013 8:06 AM CDT) Pathologist [facility] WBC 15.6(H) 4.4 - 10.7 x10^9/L 11/15/2013 8:35 AM CDT [facility] RBC 4.37 3.80 - 5.20 x10^12/L 11/15/2013 8:35 AM CDT [facility] Hemoglobin 13.3 12.0 - 15.6 gm/dL 11/15/2013 8:35 AM T [facility] Hematocrit 38.2 35.9 - 45.5 % 11/15/2013 8:35 AM CDT [facility] MCV 87.4 80.7 - 98.3 fl 11/15/2013 8:35 AM CDT [facility] MCH 30.4 26.7 - 34.0 pg 11/15/2013 8:35 AM CDT [facility] MCHC 34.8 30.8 - 35.9 gm/dL 11/15/2013 8:35 AM CDT [facility] Platelet Count 266 153 - 416 x10^9/L 11/15/2013 8:35 AM CDT [facility] RDW-CV 12.9 12.1 - 14.9 % 11/15/2013 8:35 AM CDT [facility] MPV 11.6 9.4 - 12.9 fl 11/15/2013 8:35 AM CDT [facility] Neutrophils % 73.2(H) 44.0 - 73.0 % 11/15/2013 8:35 AM CDT [facility] Lymphocytes % 18.9(L) 20.0 - 43.0 % 11/15/2013 8:35 AM CDT [facility] Monocytes % 6.4 5.0 - 13.0 % 11/15/2013 8:35 AM CDT [facility] Eosinophils % 0.9 0.0 - 6.0 % 11/15/2013 8:35 AM CDT [facility] Basophils % 0.2 0.0 - 2.0 % 11/15/2013 8:35 AM T [facility] Immature Granulocytes 0.4 0 - 1 % 11/15/2013 8:35 AM T [facility] Neutrophil Absolute 11.45(H) 2.01 - 7.14 x10^9/L 11/15/2013 8:35 AM T [facility] Lymphocytes Absolute 2.95 1.07 - 3.94 x10^9/L 11/15/2013 8:35 AM CDT [facility] Monocytes Absolute 1.00 0.26 - 1.07 x10^9/L 11/15/2013 8:35 AM CDT [facility] Eosinophils Absolute 0.14 0 - 0.47 x10^9/L 11/15/2013 8:35 AM T [facility] Basophils Absolute 0.03 0 - 0.08 x10^9/L 11/15/2013 8:35 AM T [facility] Immature Granulocytes Absolute 0.07(H) 0.00 - 0.06 x10^9/L 11/15/2013 8:35 AM CDT [facility] nRBC Auto 0 /100 WBC 11/15/2013 8:35 AM T [facility] Blood BLOOD SPECIMEN / Unknown Venipuncture / Unknown 11/15/2013 8:06 AM CDT 11/15/2013 8:26 AM CDT Sumaya Hudson MD LAB - HEMATOLOGY ORDERABLES [facility] [address] [place] [address] * (ABNORMAL) COMPREHENSIVE METABOLIC PANEL (11/15/2013 8:06 AM CDT) [facility] Glucose 78 74 - 106 mg/dL 11/15/2013 8:53 AM CDT [facility] Sodium 140 136 - 145 mmol/L 11/15/2013 8:53 AM CDT [facility] Potassium 4.2 3.5 - 5.1 mmol/L 11/15/2013 8:53 AM [facility] Chloride 108(H) 98 - 107 mmol/L 11/15/2013 8:53 AM CDT [facility] CO2 22 22 - 31 mmol/L 11/15/2013 8:53 AM [facility] Calcium 8.7 8.5 - 10.1 mg/dL 11/15/2013 8:53 AM [facility] Anion Gap 10 5 - 15 mmol/L 11/15/2013 8:53 AM [facility] BUN 10 7 - 21 mg/dL 11/15/2013 8:53 AM [facility] Creatinine 0.36(L) 0.50 - 1.30 mg/dL 11/15/2013 8:53 AM [facility] eGFR by MDRD >60 >60 mL/min/1.7 3m2 11/15/2013 8:53 AM [facility] eGFR by MDRD >60 >60 mL/min/1.7 3m2 11/15/2013 8:53 AM [facility] Alkaline Phosphatase 192(H) 38 - 126 U/L 11/15/2013 8:53 AM [facility] ALT 23 12 - 78 U/L 11/15/2013 8:53 AM [facility] AST 17 5 - 40 U/L 11/15/2013 8:53 AM [facility] Protein Total 5.3(L) 6.4 - 8.2 gm/dL 11/15/2013 8:53 AM [facility] Albumin 1.8(L) 3.4 - 5.0 gm/dL 11/15/2013 8:53 AM [facility] Bilirubin Total 0.1(L) 0.2 - 1.0 mg/dL 11/15/2013 8:53 AM [facility] Blood BLOOD SPECIMEN / Unknown Venipuncture / Unknown 11/15/2013 8:06 AM CDT 11/15/2013 8:26 AM CDT Sumaya Hudson MD LAB - CHEMISTRY O RDERABLES Performing Organization Address City/[facility] Co de Phone Number [facility] [address] [place] [phone] * FIBRINOGEN ACTIVITY (11/14/2013 9:50 PM CDT) [facility] Fibrinogen 438 150 - 450 mg/dL 11/14/2013 10:42 PM CDT [facility] Blood BLOOD SPECIMEN / Unknown Venipuncture / Unknown 11/14/2013 9:50 PM CDT 11/14/2013 10:16 PM CDT Janessa Morin MD LAB - COAGULATION OR DERABLES Performing Organization Address [facility] de Phone Number [facility] [address] [place] [address] * (ABNORMAL) PT PTT PANEL (11/14/2013 9:50 PM CDT) [facility] PT <9.2(L) 9.4 - 11.4 sec 11/14/2013 10:44 PM CDT [facility] INR <0.860(L) 0.89 - 1.07 11/14/2013 10:44 PM CDT [facility] PTT 24.4 24.0 - 33.0 sec 11/14/2013 10:44 PM CDT [facility] Blood BLOOD SPECIMEN / Unknown Venipuncture / Unknown 11/14/2013 9:50 PM CDT 11/14/2013 10:16 PM CDT Narrative [facility] - 11/14/2013 10:44 PM CDT Conventional Anticoagulant Therapy INR Reference Ranges: ??2.0-3.0 Intensive Anticoagulant Therapy INR Reference Ranges: ? 2.5-3.5 Janessa Morin MD LAB - COAGULATION OR DERABLES Performing Organization Address [facility] Co de Phone Number [facility] [address] [place] [address] * (ABNORMAL) CBC W AUTO DIFFERENTIAL (11/14/2013 3:33 PM CDT) [facility] WBC 14.5(H) 4.4 - 10.7 x10^9/L 11/14/2013 4:29 PM CDT [facility] RBC 4.48 3.80 - 5.20 x10^12/L 11/14/2013 4:29 PM CDT [facility] Hemoglobin 13.3 12.0 - 15.6 gm/dL 11/14/2013 4:29 PM [facility] Hematocrit 39.1 35.9 - 45.5 % 11/14/2013 4:29 PM [facility] MCV 87.3 80.7 - 98.3 fl 11/14/2013 4:29 PM [facility] MCH 29.7 26.7 - 34.0 pg 11/14/2013 4:29 PM [facility] MCHC 34.0 30.8 - 35.9 gm/dL 11/14/2013 4:29 PM [facility] Platelet Count 287 153 - 416 x10^9/L 11/14/2013 4:29 PM [facility] RDW-CV 12.9 12.1 - 14.9 % 11/14/2013 4:29 PM [facility] MPV 11.9 9.4 - 12.9 fl 11/14/2013 4:29 PM [facility] Neutrophils % 74.8(H) 44.0 - 73.0 % 11/14/2013 4:29 PM [facility] Lymphocytes % 18.0(L) 20.0 - 43.0 % 11/14/2013 4:29 PM [facility] Monocytes % 5.5 5.0 - 13.0 % 11/14/2013 4:29 PM T [facility] Eosinophils % 0.7 0.0 - 6.0 % 11/14/2013 4:29 PM [facility] Basophils % 0.2 0.0 - 2.0 % 11/14/2013 4:29 PM [facility] Immature Granulocytes 0.8 0 - 1 % 11/14/2013 4:29 PM [facility] Neutrophil Absolute 10.81(H) 2.01 - 7.14 x10^9/L 11/14/2013 4:29 PM T [facility] Lymphocytes Absolute 2.61 1.07 - 3.94 x10^9/L 11/14/2013 4:29 PM CDT [facility] Monocytes Absolute 0.80 0.26 - 1.07 x10^9/L 11/14/2013 4:29 PM CDT [facility] Eosinophils Absolute 0.10 0 - 0.47 x10^9/L 11/14/2013 4:29 PM CDT [facility] Basophils Absolute 0.03 0 - 0.08 x10^9/L 11/14/2013 4:29 PM CDT [facility] Immature Granulocytes Absolute 0.12(H) 0.00 - 0.06 x10^9/L 11/14/2013 4:29 PM CDT [facility] nRBC Auto 0 /100 WBC 11/14/2013 4:29 PM CDT [facility] Blood BLOOD SPECIMEN / Unknown Venipuncture / Unknown 11/14/2013 3:33 PM CDT 11/14/2013 4:12 PM CDT Shruthi Koroma MD LAB - HEMATOLOGY ORDERABLES Performing Organization Address City/[facility]/ZIP Co de Phone Number [facility] [address] [place] [address] * TYPE + SCREEN PANEL (11/14/2013 3:33 PM CDT) ABO B 11/14/2013 4:57 PM CDT [facility] Rh Type Positive 11/14/2013 4:57 PM CDT [facility] Comment:History check perfor med. No retype required. Antibody Screen Negative 11/14/2013 4:57 PM CDT [facility] Miscellaneous samples (specimen) BLOOD SPECIMEN / Unknown Venipuncture / Unknown 11/14/2013 3:33 PM CDT 11/14/2013 4:12 PM CDT Shruthi Koroma MD LAB - BLOOD BANK ORDERABLES [facility] BLOOD [facility] * (ABNORMAL) CULTURE URINE (11/13/2013 11:51 AM CDT) Culture >100,000 CFU/mL Enterobacter cloacae complex(A) ALESSANDRO 11/15/2013 9:05 AM CDT [facility] MICROBIOLOGY Culture >100,000 CFU/mL Enterococcus species(A) ALESSANDRO 11/15/2013 9:05 AM [facility]CRO[facility] Urine URINE SPECIMEN OBTAINED BY CLEAN CATCH PROCEDURE / Unknown Collection / Unknown 11/13/2013 11:51 AM T 11/13/2013 12:25 PM CDT [facility] MICROBIOLOGY - 11/15/2013 9:05 AM T Enterobacter, Citrobacter, and Serratia may develop resistance [...] Hudson MD LAB - MICROBIOLOG Y ORDERABLES [facility] MICROBIOLOGY [address] [place] [address], [facility] * TYPE + SCREEN PANEL (11/12/2013 10:42 AM CDT) [facility] ABO B 11/12/2013 11:54 AM CDT [facility] BLOOD BANK LAB Rh Type Positive 11/12/2013 11:54 AM CDT [facility] BLOOD [facility] LAB Comment:History check perfor med. No retype required. Antibody Screen Negative 11/12/2013 11:54 AM CDT [facility] BLOOD [facility] LAB Miscellaneous samples (specimen) BLOOD SPECIMEN / Unknown Venipuncture / Unknown 11/12/2013 10:42 AM CDT 11/12/2013 10:59 AM CDT Isaac Allan MD LAB - BLOOD BANK ORD ERABLES Performing Organization Address [facility] de Phone Number [facility] BLOOD BANK LAB * (ABNORMAL) COMPREHENSIVE METABOLIC PANEL (11/12/2013 10:42 AM CDT) [facility] Glucose 105 74 - 106 mg/dL 11/12/2013 11:26 AM CDT [facility] Sodium 135(L) 136 - 145 mmol/L 11/12/2013 11:26 AM CDT [facility] Potassium 3.8 3.5 - 5.1 mmol/L 11/12/2013 11:26 AM CDT [facility] Chloride 103 98 - 107 mmol/L 11/12/2013 11:26 AM CDT [facility] CO2 22 22 - 31 mmol/L 11/12/2013 11:26 AM CDT [facility] Calcium 8.7 8.5 - 10.1 mg/dL 11/12/2013 11:26 AM CDT [facility] Anion Gap 10 5 - 15 mmol/L 11/12/2013 11:26 AM CDT [facility] BUN 10 7 - 21 mg/dL 11/12/2013 11:26 AM CDT [facility] Creatinine 0.52 0.50 - 1.30 mg/dL 11/12/2013 11:26 AM CDT [facility] eGFR by MDRD >60 >60 mL/min/1.7 3m2 11/12/2013 11:26 AM CDT [facility] eGFR by MDRD >60 >60 mL/min/1.7 3m2 11/12/2013 11:26 AM CDT [facility] Alkaline Phosphatase 178(H) 38 - 126 U/L 11/12/2013 11:26 AM CDT [facility] ALT 23 12 - 78 U/L 11/12/2013 11:26 AM CDT [facility] AST 15 5 - 40 U/L 11/12/2013 11:26 AM CDT [facility] Protein Total 5.1(L) 6.4 - 8.2 gm/dL 11/12/2013 11:26 AM CDT [facility] [facility] Albumin 1.9(L) 3.4 - 5.0 gm/dL 11/12/2013 11:26 AM CDT [facility] Bilirubin Total 0.2 0.2 - 1.0 mg/dL 11/12/2013 11:26 AM CDT [facility] Blood BLOOD SPECIMEN / Unknown Venipuncture / Unknown 11/12/2013 10:42 AM CDT 11/12/2013 10:58 AM CDT Isaac Allan MD LAB - CHEMISTRY SU MCKENZIE [facility] [address] [place] [address] * (ABNORMAL) CBC W AUTO DIFFERENTIAL (11/12/2013 10:42 AM CDT) WBC 14.3(H) 4.4 - 10.7 x10^9/L 11/12/2013 11:07 AM CDT [facility] RBC 4.19 3.80 - 5.20 x10^12/L 11/12/2013 11:07 AM CDT [facility] Hemoglobin 12.5 12.0 - 15.6 gm/dL 11/12/2013 11:07 AM [facility] Hematocrit 37.0 35.9 - 45.5 % 11/12/2013 11:07 AM [facility] MCV 88.3 80.7 - 98.3 fl 11/12/2013 11:07 AM [facility] MCH 29.8 26.7 - 34.0 pg 11/12/2013 11:07 AM [facility] MCHC 33.8 30.8 - 35.9 gm/dL 11/12/2013 11:07 AM [facility] Platelet Count 258 153 - 416 x10^9/L 11/12/2013 11:07 AM [facility] RDW-CV 12.9 12.1 - 14.9 % 11/12/2013 11:07 AM [facility] MPV 11.3 9.4 - 12.9 fl 11/12/2013 11:07 AM [facility] Neutrophils % 72.2 44.0 - 73.0 % 11/12/2013 11:07 AM [facility] Lymphocytes % 19.0(L) 20.0 - 43.0 % 11/12/2013 11:07 AM [facility] Monocytes % 7.0 5.0 - 13.0 % 11/12/2013 11:07 AM [facility] Eosinophils % 0.8 0.0 - 6.0 % 11/12/2013 11:07 AM [facility] Basophils % 0.2 0.0 - 2.0 % 11/12/2013 11:07 AM [facility] Immature Granulocytes 0.8 0 - 1 % 11/12/2013 11:07 AM [facility] Neutrophil Absolute 10.27(H) 2.01 - 7.14 x10^9/L 11/12/2013 11:07 AM [facility] Lymphocytes Absolute 2.71 1.07 - 3.94 x10^9/L 11/12/2013 11:07 AM [facility] Monocytes Absolute 1.00 0.26 - 1.07 x10^9/L 11/12/2013 11:07 AM [facility] Eosinophils Absolute 0.12 0 - 0.47 x10^9/L 11/12/2013 11:07 AM CDT [facility] Basophils Absolute 0.03 0 - 0.08 x10^9/L 11/12/2013 11:07 AM T [facility] Immature Granulocytes Absolute 0.12(H) 0.00 - 0.06 x10^9/L 11/12/2013 11:07 AM CDT [facility] nRBC Auto 0 /100 WBC 11/12/2013 11:07 AM T [facility] Blood BLOOD SPECIMEN / Unknown Venipuncture / Unknown 11/12/2013 10:42 AM CDT 11/12/2013 10:59 AM CDT Isaac Eliu Allan MD LAB - HEMATOLOGY ORD ERABLES [facility] [address] [place] [address] * (ABNORMAL) URINALYSIS ROUTINE W/REFLEX TO CULTURE (11/10/2013 6:10 PM CDT) Color UA Yellow Straw, Yellow, Dark Yellow 11/10/2013 6:28 PM T [facility] Clarity UA Clear 11/10/2013 6:28 PM CDT [facility] Specific [place] UA 1.015 1.005 - 1.030 11/10/2013 6:28 PM T [facility] pH UA 6.5 5.0 - 8.0 pH 11/10/2013 6:28 PM T [facility] Protein UA 3+(A) Negative 11/10/2013 6:28 PM CDT [facility] Blood UA Negative Negative 11/10/2013 6:28 PM CDT [facility] Leukocyte UA Negative Negative 11/10/2013 6:28 PM CDT [facility] Nitrite UA Negative Negative 11/10/2013 6:28 PM CDT [facility] Glucose UA Negative Negative 11/10/2013 6:28 PM CDT [facility] Ketone UA Negative Negative 11/10/2013 6:28 PM T [facility] Bilirubin UA Negative Negative 11/10/2013 6:28 PM T [facility] Urobilinogen UA 0.2 0.1 - 1.0 EU/dL 11/10/2013 6:28 PM T [facility] WBC UA Auto 5-10(A) 0-2, 2-5 #/hpf 11/10/2013 6:28 PM CDT [facility] RBC UA Auto 2-5 0-2, 2-5 #/hpf 11/10/2013 6:28 PM CDT [facility] Epithelial Cell UA Auto 2-5 0-2, 2-5 #/hpf 11/10/2013 6:28 PM CDT [facility] Bacteria UA Auto 1+(A) None seen 11/10/2013 6:28 PM CDT [facility] Reflex Status Culture not indicated 11/10/2013 6:28 PM CDT [facility] Urine URINE SPECIMEN OBTAINED BY CLEAN CATCH PROCEDURE / Unknown Collection / Unknown 11/10/2013 6:10 PM CDT 11/10/2013 6:21 PM CDT Aguilar Bustamante MD LAB - URINALYSIS ORD ERABLES Performing Organization Address City/State/[facility] Co de Phone Number [facility] [address] [place] [address] * SONOGRAM - COMPLETE (11/09/2013 1:09 PM CDT) Anatomical Region Laterality Modality Other 11/09/2013 1:09 PM CDT Narrative 11/09/2013 5:39 PM CDT ? [facility] ? [facility] ?PHONE: ??FAX: Pat. Name: ?CAIT MATHEWS. No: ?[id number] Study Date: ?? 11/09/2013 ??1:09pm , Age: ? 1995, 18 Pregnancies: ?? 1 LMP: ?Unknown GA by US: ? 30w6d GA Selected: ??32w6d (From Known E) ULISES: ?12/29/2013 Referring MD: BISMARK MASON MD [employer] Machine Operator: ??Gabbi Main, [facility] Hist/Ind: ? Preeclampisa ?Obesity MEASUREMENTS & AGE ? GROWTH EVALUATION Measurement ??GA ? Range ? Srce %for GA Ratios ----- ---- ------- BPD ??7.8 cm 31w3d (16p9c-96h1y) Hadl BPD 30% FL/BPD 0.74 (0.71 - 0.87) HC ??27.1 cm 29w4d (75s9g-15x0k) Hadl HC ??<05 FL/AC ??0.21 (0.20 - 0.24) AC ??27.5 cm 31w4d (13q2w-02e7g) Hadl AC ??31% HC/AC ??0.98 (0.95 - 1.14) FL ?? 5.8 cm 30w4d (48w2b-16n2o) Hadl FL ??15% CI ? 0.84 (0.70 - 0.86) HL ?? 5.3 cm 30w6d (77w1x-78e2r) [place] HL ??18% GA for sonogram 30w6d (17s9h-34f4v) ?? Weight Estimate: based on (HL,BPD,HC,AC,FL) Avg ? Weight: 1684 gm (3029-8071) Hadlo ? : 3lbs, 11oz ? Normal: [...] ?<Electronic Signature> ??11/09/2013 05:38pm Aguilar Bustamante MD [facility] ORDERABLES * CHLAMYDIA + GC AMPLIFIED PROBE (11/09/2013 1:14 AM CDT) [facility] Chlamydia Amplified Probe Negative Negative 11/13/2013 3:29 PM CDT [facility] GC Amplified Probe Negative Negative 11/13/2013 3:29 PM CDT [facility] Microbiology URINE / Unknown Collection / Unknown 11/09/2013 1:14 AM CDT 11/09/2013 1:53 AM CDT Narrative [facility] - 11/13/2013 3:29 PM CDT This test was developed and its performance characteristics determined by the [facility], [facility]. Female urine specimens tested by the [facility] have not been cleared or approved by the FDA. The laboratory is regulated under CLIA as qualified to perform high-complexity testing. This test is used for clinical purposes. It should not be regarded as investigational or for research. Results based on detection/no detection of ribosomal RNA by amplified method. Gertrudis Thompson MD LAB - MICROBIOLOGY O RDHARMEET Performing Organization Address City/[facility]/ZIP Co de Phone Number [facility] [address] [place] [address] * CULTURE STREP B (11/08/2013 10:25 PM CDT) Culture Negative for Beta Hemolytic Streptococcus Group B 11/12/2013 11:11 AM CDT [facility] Microbiology ENTIRE PERIRECTAL REGION / Unknown Collection / Unknown 11/08/2013 10:25 PM CDT 11/08/2013 11:06 PM CDT Gertrudis Thompson MD LAB - MICROBIOLOGY O MAHI Performing Organization Address [facility] Co de Phone Number [facility] [address] [place] * BLOOD TYPE VERIFICATION (11/08/2013 10:10 PM CDT) ABO B 11/08/2013 10:46 PM CDT [facility] Rh Type Positive 11/08/2013 10:46 PM CDT [facility] Miscellaneous samples (specimen) BLOOD SPECIMEN / Unknown Collection / Unknown 11/08/2013 10:10 PM CDT 11/08/2013 10:14 PM CDT Viet Marquez MD LAB - BLOOD BANK ORD ERABLES Performing Organization Address [facility] Co de Phone Number [facility] * CULTURE URINE (11/08/2013 8:47 PM CDT) Culture >10,000 CFU/mL multiple bacterial morphotypes present. Suggest recollection. 11/10/2013 3:30 PM CDT [facility] Urine URINE SPECIMEN OBTAINED BY CLEAN CATCH PROCEDURE / Unknown Collection / Unknown 11/08/2013 8:47 PM CDT 11/08/2013 8:57 PM CDT Ludwin Mejnivar MD LAB - MICROBIOLOGY O RDERAPARISH Performing Organization Address City/[facility]/ZIP Co de Phone Number [facility] [address] * TYPE + SCREEN PANEL (11/08/2013 8:47 PM CDT) ABO B 11/08/2013 9:36 PM CDT [facility] Rh Type Positive 11/08/2013 9:36 PM CDT [facility] Comment:History check perfor med. Retype required. Antibody Screen Negative 11/08/2013 9:36 PM CDT [facility] Miscellaneous samples (specimen) BLOOD SPECIMEN / Unknown Venipuncture / Unknown 11/08/2013 8:47 PM CDT 11/08/2013 8:55 PM CDT Ludwin Menjivar MD LAB - BLOOD BANK ORD ERABLES [facility] * PROTEIN CREATININE RATIO URINE RANDOM PNL (11/08/2013 8:47 PM CDT) Protein Urine 918.4 mg/dL 11/08/2013 9:17 PM CDT [facility] Creatinine Urine 104.26 mg/dL 11/08/2013 9:17 PM CDT [facility] Protein/Creatin ine Ratio Urine 8.81 11/08/2013 9:17 PM CDT [facility] Urine URINE SPECIMEN OBTAINED BY CLEAN CATCH PROCEDURE / Unknown Collection / Unknown 11/08/2013 8:47 PM CDT 11/08/2013 8:57 PM CDT Ludwin Menjivar MD LAB - URINE CHEMISTR Y ORDERABLES [facility] [address] [place] [address] * (ABNORMAL) URINALYSIS ROUTINE W/REFLEX TO CULTURE (11/08/2013 8:47 PM CDT) Color UA Yellow Straw, Yellow, Dark Yellow 11/08/2013 9:13 PM CDT [facility] Clarity UA Cloudy 11/08/2013 9:13 PM CDT [facility] Specific [place] UA 1.022 1.005 - 1.030 11/08/2013 9:13 PM CDT [facility] pH UA 6.5 5.0 - 8.0 pH 11/08/2013 9:13 PM CDT [facility] Protein UA 4+(A) Negative 11/08/2013 9:13 PM CDT [facility] Blood UA Trace(A) Negative 11/08/2013 9:13 PM CDT [facility] Leukocyte UA Trace(A) Negative 11/08/2013 9:13 PM CDT [facility] Nitrite UA Negative Negative 11/08/2013 9:13 PM CDT [facility] Glucose UA Negative Negative 11/08/2013 9:13 PM CDT [facility] Ketone UA Negative Negative 11/08/2013 9:13 PM CDT [facility] Bilirubin UA Negative Negative 11/08/2013 9:13 PM CDT [facility] Urobilinogen UA 0.2 0.1 - 1.0 EU/dL 11/08/2013 9:13 PM CDT [facility] WBC UA Auto 20-50(A) 0-2, 2-5 #/hpf 11/08/2013 9:13 PM CDT [facility] RBC UA Auto 5-10(A) 0-2, 2-5 #/hpf 11/08/2013 9:13 PM CDT [facility] Epithelial Cell UA Auto 5-10(A) 0-2, 2-5 #/hpf 11/08/2013 9:13 PM CDT [facility] Bacteria UA Auto 2+(A) None seen 11/09/19 14 9:13 PM CDT [facility] Hyaline Casts UA Auto 2-5(A) 0 - 2 #/lpf 11/08/2013 9:13 PM CDT [facility] Reflex Status Culture to follow 11/08/2013 9:13 PM CDT [facility] Urine URINE SPECIMEN OBTAINED BY CLEAN CATCH PROCEDURE / Unknown Collection / Unknown 11/08/2013 8:47 PM CDT 11/08/2013 8:57 PM CDT Ludwin Menjivar MD LAB - URINALYSIS ORD ERABLES [facility] [address] [place] [address] * LDH BLOOD (11/08/2013 8:47 PM CDT) LDH 153 100 - 200 U/L 11/08/2013 9:25 PM CDT [facility] Comment: Blood BLOOD SPECIMEN / Unknown Venipuncture / Unknown 11/08/2013 8:47 PM CDT 11/08/2013 8:55 PM CDT Ludwin Menjivar MD LAB - CHEMISTRY SU MCKENZIE Performing Organization Address [facility] Co de Phone Number [facility] [address] [place] [phone] * (ABNORMAL) URIC ACID BLOOD (11/08/2013 8:47 PM CDT) Uric Acid 6.6(H) 2.5 - 6.2 mg/dL 11/08/2013 9:25 PM CDT [facility] Comment: Blood BLOOD SPECIMEN / Unknown Venipuncture / Unknown 11/08/2013 8:47 PM CDT 11/08/2013 8:55 PM CDT Ludwin Menjivar MD LAB - CHEMISTRY SU MCKENZIE Performing Organization Address [facility] Co de Phone Number [facility] [address] [place] [phone] * (ABNORMAL) COMPREHENSIVE METABOLIC PANEL (11/08/2013 8:47 PM CDT) Glucose 100 74 - 106 mg/dL 11/08/2013 9:25 PM CDT [facility] Sodium 141 136 - 145 mmol/L 11/08/2013 9:25 PM CDT [facility] Potassium 3.7 3.5 - 5.1 mmol/L 11/08/2013 9:25 PM CDT [facility] Chloride 109(H) 98 - 107 mmol/L 11/08/2013 9:25 PM CDT [facility] CO2 22 22 - 31 mmol/L 11/08/2013 9:25 PM CDT [facility] Calcium 9.0 8.5 - 10.1 mg/dL 11/08/2013 9:25 PM CDT [facility] Anion Gap 10 5 - 15 mmol/L 11/08/2013 9:25 PM CDT [facility] BUN 8 7 - 21 mg/dL 11/08/2013 9:25 PM CDT [facility] Creatinine 0.35(L) 0.50 - 1.30 mg/dL 11/08/2013 9:25 PM CDT [facility] eGFR by MDRD >60 >60 mL/min/1.7 3m2 11/08/2013 9:25 PM CDT [facility] eGFR by MDRD >60 >60 mL/min/1.7 3m2 11/08/2013 9:25 PM CDT [facility] Alkaline Phosphatase 187(H) 38 - 126 U/L 11/08/2013 9:25 PM CDT [facility] ALT 21 12 - 78 U/L 11/08/2013 9:25 PM CDT [facility] AST 17 5 - 40 U/L 11/08/2013 9:25 PM CDT [facility] Protein Total 5.5(L) 6.4 - 8.2 gm/dL 11/08/2013 9:25 PM CDT [facility] Albumin 2.2(L) 3.4 - 5.0 gm/dL 11/08/2013 9:25 PM CDT [facility] Bilirubin Total 0.1(L) 0.2 - 1.0 mg/dL 11/08/2013 9:25 PM CDT [facility] Blood BLOOD SPECIMEN / Unknown Venipuncture / Unknown 11/08/2013 8:47 PM CDT 11/08/2013 8:55 PM CDT Ludwin Menjivar MD LAB - CHEMISTRY [facility] Organization Address City/State/[facility] Co de Phone Number [facility] [address] [place] [address] * (ABNORMAL) CBC W AUTO DIFFERENTIAL (11/08/2013 8:47 PM CDT) WBC 11.7(H) 4.4 - 10.7 x10^9/L 11/08/2013 9:05 PM CDT [facility] RBC 4.00 3.80 - 5.20 x10^12/L 11/08/2013 9:05 PM CDT [facility] Hemoglobin 12.0 12.0 - 15.6 gm/dL 11/08/2013 9:05 PM CDT [facility] Hematocrit 34.8(L) 35.9 - 45.5 % 11/08/2013 9:05 PM CDT [facility] MCV 87.0 80.7 - 98.3 fl 11/08/2013 9:05 PM [facility] MCH 30.0 26.7 - 34.0 pg 11/08/2013 9:05 PM [facility] MCHC 34.5 30.8 - 35.9 gm/dL 11/08/2013 9:05 PM [facility] Platelet Count 237 153 - 416 x10^9/L 11/08/2013 9:05 PM [facility] RDW-CV 12.8 12.1 - 14.9 % 11/08/2013 9:05 PM [facility] MPV 11.9 9.4 - 12.9 fl 11/08/2013 9:05 PM [facility] Neutrophils % 71.1 44.0 - 73.0 % 11/08/2013 9:05 PM [facility] Lymphocytes % 19.3(L) 20.0 - 43.0 % 11/08/2013 9:05 PM [facility] Monocytes % 8.3 5.0 - 13.0 % 11/08/2013 9:05 PM [facility] Eosinophils % 0.6 0.0 - 6.0 % 11/08/2013 9:05 PM [facility] Basophils % 0.3 0.0 - 2.0 % 11/08/2013 9:05 PM [facility] Immature Granulocytes 0.4 0 - 1 % 11/08/2013 9:05 PM [facility] Neutrophil Absolute 8.28(H) 2.01 - 7.14 x10^9/L 11/08/2013 9:05 PM [facility] Lymphocytes Absolute 2.25 1.07 - 3.94 x10^9/L 11/08/2013 9:05 PM [facility] Monocytes Absolute 0.97 0.26 - 1.07 x10^9/L 11/08/2013 9:05 PM [facility] Eosinophils Absolute 0.07 0 - 0.47 x10^9/L 11/08/2013 9:05 PM [facility] Basophils Absolute 0.03 0 - 0.08 x10^9/L 11/08/2013 9:05 PM [facility] Immature Granulocytes Absolute 0.05 0.00 - 0.06 x10^9/L 11/08/2013 9:05 PM CDT [facility] nRBC Auto 0 /100 WBC 11/08/2013 9:05 PM CDT [facility] Blood BLOOD SPECIMEN / Unknown Venipuncture / Unknown 11/08/2013 8:47 PM CDT 11/08/2013 8:55 PM CDT Ludwin Menjivar MD LAB - HEMATOLOGY ORD ERABLES Performing Organization Address City/State/[facility] Co de Phone Number [facility] [address] [place] [address] documented in this encounter Visit Diagnoses Not on filedocumented in this encounter Active and Recently Administered Medications Times are shown in CDT. Scheduled Medication Order 11/19/2013 11/20/2013 11/21/2013 0.9% NaCl injection 3 mL (CANCELED) 3 mL, Intracatheter, EVERY 8 HOURS, First dose on Wed11/18/13 at 1630, Until Discontinued 0554 ($ Given [...] 0805 ($ Given - Provider: July Maravilla, FLEX)2012 ($ Given - Provider: Cordell Bauer RN) 0939 ($ Given - Provider: Hope Mccoy RN) famotidine (PEPCID) tablet 20 mg (CANCELED) 20 mg, Oral, 2 TIMES DAILY, First dose on Wed11/12/13 at 2200, Until Discontinued 0750 ($ Given - Provider: Hope Ribeiro RN)2032 ($ Given - Provider: Katlyn Major RN) 08 ($ Given - Provider: July Maravilla RN)2013 ($ Given - Provider: Cordell Bauer, FLEX) 0939 ($ Given - Provider: Hope Mccoy RN) ibuprofen (MOTRIN) tablet 600 mg 600 mg, Oral, EVERY 6 HOURS, First dose on Wed11/17/13 at 1930, Until Discontinued, Maximum allowable amount = 3200 mg / 24 hours., 0029 ($ Given - Provider: Marci Mejia, RN)0553 ($ Given - Provider: Marci Mejia, RN)1259 ($ Given - Provider: Hope Ribeiro, FLEX)1839 ($ Given - Provider: Katlyn Major RN)2356 [...] Comments - Comment: [place])2011 ($ Given - Provider: Cordell [...]
--- OUTSIDE RECORDS SUMMARY | 2024-04-27 18:03 | XMS_ITS | Encounter Summary ---
Author Organization [facility] Address [address] [place] [address] Care Team Providers Care Photovoltaic Panel Installer Name Role Phone Gala Singh MD Primary Care Provider [phone] Encounter Details Date Type Department Care Team (Latest Contact Info) Description 10/21/2010 10:31 AM CDT - 10/21/2010 11:59 PM T Hospital Encounter [facility] - Orthopedics [address] [place] [phone] Alexus Bruno MD Orthopedics Discharge Disposition: Home or Self Care Social History Tobacco Use Types Packs/Day Years Used Date Smoking Tobacco: Never Assessed Sex and Gender Information Value Date Recorded Sex Assigned at Not on file Gender Identity Not on file Sexual Orientation Not on file documented as of this encounter Plan of Treatment Not on file documented as of this encounter Visit Diagnoses Not on filedocumented in this encounter Care Teams Photovoltaic Panel Installer Relationship Specialty Start Date End Date Gala Singh MD [address] [facility] [address] [place] [phone] PCP - General 10/21/10 11/07/13 documented as of this encounter
--- OUTSIDE RECORDS SUMMARY | 2024-04-27 18:03 | XMS_ITS | Encounter Summary ---
Author Organization [facility] [employer] Address [address] [place] [address] Care Team Providers Care Pre Sales Technical Engineer Name Role Phone Gala Singh MD Primary Care Provider [phone] Reason for Visit * Reason Onset Date Comments Imaging Results 03/27/2011 Encounter Details Date Type Department Care Team (Late st Contact Info) Description 03/27/2011 Telephone [facility] Pediatrics - Neurology [address] [place] [phone] Milo Jimenez MD [address] [place], [place] [id number] [place] [address] Imaging Results Social History Tobacco Use Types Packs/Day Years Used Date Smoking Tobacco: Never Assessed Sex and Gender Information Value Date Recorded Sex Assigned at Not on file Gender Identity Not on file Sexual Orientation Not on file documented as of this encounter Miscellaneous Notes * Telephone Encounter - Ksenia Daly LPN - 05/05/2011 4:02 PM CST Attempted to reach mom, tried all the numbers that we have. Unable to reach by phone. Sent a post card asking mom to contact our office using the address on [employer]. MOTIVE ENGINEERING TECHNICIAN * Telephone Encounter - Milo Jimenez - 05/05/2011 1:42 PM CST I have not been able to reach this family by phone since last month. Phone disconnected. Please send postcard requesting they call us. MOTIVE ENGINEERING TECHNICIAN * Telephone Encounter - Magdalena Alvarez, RN - 03/27/2011 5:24 PM CST MRI report is normal. Please review. Further directions? MOTIVE ENGINEERING TECHNICIAN * Telephone Encounter - Lynne Nagel - 03/27/2011 11:46 AM CST Mom calling for MRI results MOTIVE ENGINEERING TECHNICIAN documented in this encounter Plan of Treatment Not on file documented as of this encounter Visit Diagnoses Not on filedocumented in this encounter Care Teams Pre Sales Technical Engineer Relationship Specialty Start Date End Date Gala Singh MD [address] [phone] PCP - General 10/21/10 11/07/13 documented as of this encounter
--- OUTSIDE RECORDS SUMMARY | 2024-04-27 18:03 | XMS_ITS | Encounter Summary ---
Author Organization [facility] Address [address] [place] [address] Care Team Providers Care Shade Maker Name Role Phone Gala Singh MD Primary Care Provider [phone] Reason for Visit * Reason Comments Establish Care Encounter Details Date Type Department Care Team (Latest Contact Info) Description 03/12/2011 9:25 AM CDT - 03/12/2011 10:27 AM CDT Hospital Encounter [facility] - Neurology [address] [place] [id number] Milo Jimenez MD [address] [place], [place] [id number] [place] [address] Neurology Discharge Disposition: Home or Self Care Social History Tobacco Use Types Packs/Day Years Used Date Smoking Tobacco: Never Assessed Sex and Gender Information Value Date Recorded Sex Assigned at Not on file Gender Identity Not on file Sexual Orientation Not on file documented as of this encounter Last Filed Vital Signs Vital Sign Reading Time Taken Comments Blood Pressure 108/76 03/12/2011 9:32 AM CDT Pulse - - Temperature - - Respiratory Rate - - Oxygen Saturation - - Inhaled Oxygen Concentration - - Weight 65.1 kg (143 lb 8 oz) 03/12/2011 9:32 AM CDT Height 153.7 cm (5' 0.51 ) 03/12/2011 9:32 AM CD T Body Mass Index 27.55 03/12/2011 9:32 AM CDT Body Mass Index Percentile 91.53% 03/12/2011 9:3 2 AM CDT Growth Chart: CDC (Girls, 2- 20 Years) documented in this encounter Discharge Instructions * Patient Instructions* Milo Jimenez - 03/12/2011 10:09 AM CDT We will call you with the results of the MRI and discuss the next steps. Do not hesitate to call between now and next visit as needed. documented in this encounter Medications at Time of Discharge Medication Sig Dispensed Refills Start Date End Date Other Control Patch 11/09/19 14 documented as of this encounter Progress Notes * Anahy Leone LPN - 03/12/2011 9:39 AM CDT 1 month ago patient was taken to the ED when her left arm went completely numb for about 5 hours. While in the ED they did blood work that came back normal. documented in this encounter Miscellaneous Notes * Miscellaneous Scans - Document, Scanned - 04/14/2011 8:31 PM CST CUTTER documented in this encounter Plan of Treatment Not on file documented as of this encounter Results * MRI BRAIN WITH [...] Major MD Milo Jimenez MD MR ORDERABLES documented in this encounter Visit Diagnoses Diagnosis Paresthesia Disturbance of skin sensation Paresthesia Disturbance of skin sensation documented in this encounter Care Teams Shade Maker Relationship Specialty Start Date End Date Gala Singh MD [address] [phone] PCP - General 10/21/10 11/07/13 documented as of this encounter
--- OUTSIDE RECORDS SUMMARY | 2024-04-27 18:03 | XMS_ITS | Encounter Summary ---
Author Organization [facility] Address [address] [place], [place] [address] [address] Care Team Providers Care Gluing Machine Offbearer Name Role Phone Unavailable Primary Care Provider Unavailabl e Reason for Visit * Auth/Cert - Closed Specialty Diagnoses / Procedures Referred By Contac t Referred To Contact Obstetrics and Gynecology [facility] 5e Ante/Mom Baby [address] [place] [address] Referral ID Status Reason Start Date Expiration Date Visits Re quested Visits Authorized [id number] Closed 11/09/2013 05/08/2014 1 Encounter Details Date Type Department Care Team (Late st Contact Info) Description 11/17/2013 3:19 PM CDT Anesthesia Event [facility] 5E ANTEPARTUM/MOTHER BABY [address] [place], [place] [id number] Rory Lara, DO [address] [facility] [place] [address] Dionne Julian APRN-DAYCARE TEACHER [address] [facility] [place] [place], [place] [phone] Anesthesia Record Procedure Summary Procedure Name Responsible Anesthesiologist Anesthesia Start Time Anesthesia Stop Time version for breech/ possible section Rory Lara DO 11/17/13 1519 11/17/13 1624 Events Date Time Event Comment 11/17/2013 0825 1519 An Start 1519 An Start Data 1519 PT Reassessment Patient and Vital Signs reassessed prior to induction. 1526 an abraham now 1540 Quick Note incision 1543 Uterine Incision 1548 Baby Delivered 1554 Elect Sign The providers l isted as staff are the responsible providers for the case. 1617 an stop data 1617 Elect Sign The providers l isted as staff are the responsible providers for the case. 1624 An Stop Meds Name Total fentaNYL (SUBLIMAZE) 0.05 mg/ml injectio n 100 mcg morphine PF (DURAMORPH) 0.5 mg/mL inject ion 5 mg bupivacaine (spinal) (SENSORCAINE) 0.75% IT injection 13.5 mg phenylephrine 40 mcg/ml 560 mcg ondansetron 4 mg ceFAZolin (ANCEF) IVPB 2 g 2 g nitroglycerin 2 spray diphenhydrAMINE (BENADRYL) 50mg/ml injec tion 25 mg morphine 10 mg/ml injection 5 mg lactated ringers infusion 1,500 mL oxytocin (PITOCIN) 30 units/500 ml infus ion (60 shari-units/ml) 500 mL * Agents Name Insp. N2O O2 * Blood No blood administrations on file. Lines, Drains, and Airways Type Details Placement Removal Peripheral IV Date: 11/17/13; Time: 1445; Orientation: Left; Placed By: MITESH Thomas; Length (in): 1.25; Tolerance: Well 11/17/13 1445 by Elizabet Bee RN 11/19/13 1310 by Hope Ribeiro RN Urethral Catheter 11/17/13; 1528; Juana Bee RNC; 16; Well; 11/18/13; 1430; eshell 11/17/13 1528 by Tara Barahona RN 11/18/13 1430 by Melody Nagel RN RETIRED Procedural Site 11/17/13; 1540; Lower; Abdomen; 11/22/13; 0121 11/17/13 1540 by Elizabet Bee RN 11/22/13 0121 by Generic, Auto Release documented in this encounter Social History Tobacco [...] No 11/08/2013 documented as of this encounter Progress Notes * Dionne Julian APRN-DAYCARE TEACHER - 11/18/2013 8:52 AM CDT ANESTHESIA POSTPROCEDURE EVALUATION Cait Mathews is a 18 y.o. female Temp: 36.8 ??C Pulse: 94 Resp: 18 BP: 138/60 mmHg SpO2: 98 % Pain Rating Score #: 4 Anesthesia Type: spinal A postop evaluation was performed on this patient with the following assessment: no apparent anesthesia complications Mental status: sufficiently recovered from acute administration of anesthesia to participate in theevaluation and neurologic status has returned to preoperative level. Level of consciousness: awake No numbness, tingling or visual disturbances present. General appearance: well-appearing Respiratory function: natural airway. Cardiac: stable Pain: comfortable/acceptable PONV: None Postop hydration: adequate. Patient may be released from anesthesia care. documented in this encounter Procedure Notes * Dionne Julian APRN-DAYCARE TEACHER - 11/17/2013 3:30 PM CDTAssociated Order(s): NEURAXIAL BLOCK NEURAXIAL BLOCK Patient Location: OB Pre Procedure Indication: surgical anesthesia Anticoagulation /Antithrombosis Status Confirmed: Yes Preanesthetic Checklist: patient identified, IV checked, site marked, risks and benefits discussed,surgical consent verified, monitors and equipment checked, pre-op evaluation done, timeout performed, informed consent obtained and questions answered / anesthesia plan accepted Monitors: BP and Pulse Ox Patient Condition: awake Patient Position: sitting Procedure Block Performed: spinal Prep: Betadine Sterile Field: mask, cap/hat, sterile field established and sterile gloves Approach: midline Skin Numbed with: lidocaine 1% Spinal Needle Type: pencil-point Needle Gauge: 25 G Needle Length: 3.5 in Placement Site: L3-4 Number of Attempts: 1 CSF: free flow, aspiration before injection, aspiration during injection and aspiration after injection Local Anesthetic: bupivacaine 0.75% in dextrose 13.5 mg Spinal Additive: 0.2 mg Events CSF return injection not painful no paresthesia no other event Degree of Difficulty: none Position [place] Procedure: left uterine displacement Vital signs monitored and stable throughout. See Anesthesia Intraop record for details. Block Performed by: eliot Julian CRNA Notes: TO OR #1 SAB x1 free flow CSF all 4 quadrants documented in this encounter Consult Notes * Dionne Julian APRN-CRNA - 11/17/2013 8:24 AM CDT Pre-anesthesia Evaluation Procedure(s) (LRB): SECTION (N/A) Version attempt first Recent Labs Component Name 11/17/13 0546 ABO B RHTYPE Positive Recent Labs Component Name 11/17/13 0546 11/15/13 0806 11/14/13 1533 WBC 13.4* 15.6* 14.5* HGB 13.2 13.3 13.3 HCT 39.5 38.2 39.1 PLTCOUNT 263 266 287 Vital Signs: Temp: 36.8 ??C (11/17 744) Resp: 18 (11/17 744) BP: 136/88 mmHg (11/17 744) BMI: Estimated body mass index is 40.39 kg/(m^2) as calculated from the following: Height as of this encounter: 5' (1.524 m). Weight as of this encounter: 206 lb 12.8 oz (93.804 kg). History: Past Medical History Diagnosis Date ??? Chlamydia contact, treated Past Surgical History Procedure Laterality Date ??? Tonsillectomy reports that she has quit smoking. She has never used smokeless tobacco. She reports that she does not drink alcohol or use illicit drugs. Allergies: has No Known Allergies. Medications: Prescriptions prior to admission Medication Sig Dispense Refill ??? Vit-Fe Fumarate-FA ( VITAMIN) 28-0.8 MG tablet Take 1 Tab by mouth once daily. No current facility-administered medications on file prior to encounter. No current outpatient prescriptions on file prior to encounter. Physical Exam: NPO status: other (sips of water with bp meds) Oriented to person, place and time Airway: II Neck ROM: full Dental exam findings: normal/ok Pulmonary exam: breath sounds CTA Heart sounds: S1 S2 Spinal Alignment: symmetrical (poor landmarks) Plan for Anesthesia: ASA Score: 3. ASA Comments: obesity, HTN, Pre eclampsia Anesthesia plan: general / ETT, spinal and epidural Planned postop destination: OB Anesthesia plan, risks and benefits discussed with patient and spouse Anesthesia consent: obtained Plan accepted yes Discussed anesthesia plan with: anesthesiologist. documented in this encounter Plan of Treatment Not on file documented as of this encounter Procedures Procedure Name Priority Date/Time Associated Diagnosis Comments NEURAXIAL BLOCK Routine 11/17/2013 3:34 PM CDT documented in this encounter Results * NEURAXIAL BLOCK (11/17/2013 3:34 PM CDT) Narrative Dionne Julian APRN-CRNA - 11/17/2013 3:34 PM CDT NATE Tello ? 11/17/2013 ??3:34 PM NEURAXIAL BLOCK Patient [...] Intraop record for details. Block Performed by: ??eliot Julian CRNA Notes: ??TO OR #1 SAB x1 free flow CSF all 4 quadrants Viet Marquez MD GENERAL ANESTHESIA O RDERAPARISH documented in this encounter Visit Diagnoses Not on filedocumented in this encounter Administered Medications Inactive Administered Medications - up to 3 most recent administrations Medication Order MAR Action Action Date Dose Rate Site bupivacaine 0.75 % in dextrose (SENSORCAINE) injection PRN, Starting on Wed11/17/13 at 1525, Until Wed11/17/13 at 1627, Anesthesia Intra-op $ Given 11/17/2013 3:25 PM CDT 13.5 mg ceFAZolin (ANCEF) IVPB 2 g 2 g, at 100 mL/hr, Intravenous, INTRA-OP ONCE, 1 dose, On Wed11/17/13 at 1442, Initiate within 60 minutes prior to surgical incision., Intra-op $ Given 11/17/2013 3:21 PM CDT 2 g diphenhydrAMINE (BENADRYL) injection PRN, Itching, Starting on Wed11/17/13 at 1609, Until Wed11/17/13 at 1627, Max intravenous rate = 25 mg/min, Anesthesia Intra-op $ Given 11/17/2013 4:09 PM CDT 25 mg fentaNYL (SUBLIMAZE) injection PRN, Starting on Wed11/17/13 at 1549, Until Wed11/17/13 at 1627, Anesthesia Intra-op $ Given 11/17/2013 3:49 PM CDT 100 mcg lactated ringers infusion CONTINUOUS PRN, Starting on Wed11/17/13 at 1519, Until Wed11/17/13 at 1627, Anesthesia Intra-op $ New Bag/Syringe 11/17/2013 3:35 PM CDT $ New Bag/Syringe 11/17/2013 3:19 PM CDT morphine injection PRN, Starting on Wed11/17/13 at 1619, Until Wed11/17/13 at 1627, Anesthesia Intra-op $ Given 11/17/2013 4:19 PM CDT 5 m g morphine PF (DURAMORPH) injection PRN, Starting on Wed11/17/13 at 1525, Until Wed11/17/13 at 1627, Anesthesia Intra-op $ Given 11/17/2013 3:56 PM CDT 4.8 mg $ Given 11/17/2013 3:25 PM CDT 0.2 mg nitroglycerin (NITROLINGUAL) spray PRN, Angina, Starting on Wed11/17/13 at 1544, Until Wed11/17/13 at 1627, for SUBLINGUAL use . WASTE DISPOSAL INSTRUCTIONS: Black Bin Disposal required., Anesthesia Intra-op $ Given 11/17/2013 3:44 PM CDT 2 sprays ondansetron (ZOFRAN) injection PRN, Nausea/Vomiting, Starting on Wed11/17/13 at 1539, Until Wed11/17/13 at 1627, Anesthesia Intra-op $ Given 11/17/2013 3:39 PM CDT 4 mg oxytocin (PITOCIN) 30 units in 500 ml normal saline IV solution CONTINUOUS PRN, Starting on Wed11/17/13 at 1548, Until Wed11/17/13 at 1627, Anesthesia Intra-op $ New Bag/Syringe 11/17/2013 4:15 PM CDT $ New Bag/Syringe 11/17/2013 3:48 PM CDT phenylephrine 40 mcg/ml custom syringe PRN, Starting on Wed11/17/13 at 1531, Until Wed11/17/13 at 1627, Anesthesia Intra-op $ Given 11/17/2013 3:47 PM CDT 200 mcg $ Given 11/17/2013 3:37 PM CDT 200 mcg $ Given 11/17/2013 3:31 PM CDT 160 mcg documented in this encounter
--- OUTSIDE RECORDS SUMMARY | 2024-04-27 18:04 | XMS_ITS | Encounter Summary ---
Author Organization [facility] Address [address] [place] [address] Phone Care Team Providers Care Video Game Creator Name Role Phone Provider, None Primary Care Provider Unavailabl e Brayan Nazario MD Unavailable Reason for Visit * Auth/Cert Specialty Diagnoses / Procedures Referred By Contac t Referred To Contact Diagnoses BILIARY CALCULUS OF OTHER SITE WITHOUT OBSTRUCTION Procedures LAPAROSCOPIC CHOLECYSTECTOMY WITH / WITHOUT CHOLANGIOGRAMS Brayan Nazario MD #[address] [address] Phone: tel: fax: Referral ID Status Reason Start Date Expiration Date Visits Re quested Visits Authorized [id number] 1 1 Encounter Details Date Type Department Care Team (Late st Contact Info) Description 01/30/2022 8:36 AM CDT - 01/30/2022 3:30 PM CDT Hospital Encounter [facility] Preop/Pacu II [address] [place] [address] Brayan Nazario MD #[address] [address] Discharge Disposition: Discharged to home or Selfcare Social History Tobacco Use Types Packs/Day Years Used Date Smoking Tobacco: Former Cigarettes 0.5 8 2 012 - 2019 Smokeless Tobacco: Never Alcohol Use Standard [...] suspected to have Coronavirus/COVID-19? No / Unsure 01/30/2022 8:35 AM CDT documented as of this encounter Last Filed Vital Signs Vital Sign Reading Time Taken Comments Blood Pressure 108/58 01/30/2022 2:30 PM CDT Pulse 57 01/30/2022 2:30 PM CDT Temperature 36.6 ??C (97.9 ??F) 01/30/2022 2:30 PM CD T Respiratory Rate 14 01/30/2022 2:30 PM CDT Oxygen Saturation 96% 01/30/2022 2:30 PM CDT Inhaled Oxygen Concentration - - Weight 86.2 kg (190 lb) 01/30/2022 8:55 AM CDT Height 154.9 cm (5' 1 ) 01/30/2022 8:55 AM CDT Body Mass Index 35.9 01/30/2022 8:55 AM CDT documented in this encounter Discharge Instructions * Medications* Brayan Nazario MD - 01/30/2022 12:13 PM CDT For pain control I will send Attica to your pharmacy You can also supplement with ibuprofen * Discharge Instr - Activity* Brayan Nazario MD - 01/30/2022 12:13 PM CDT Avoid any major heavy lifting, nothing heavier than 10 lb for 6 weeks after surgery You can shower tomorrow * Discharge Instr - Diet* Brayan Nazario MD - 01/30/2022 12:13 PM CDT You can have a regular diet, make sure you drink large amount of fluid to avoid constipation * Attachments The following attachments cannot be sent through Care Everywhere. * Minimally Invasive Cholecystectomy Care After (Sammarinese) documented in this encounter Medications at Time of Discharge HYDROcodone-acetamino phen (NORCO) 5-325 MG TabletIndications:S/P laparoscopic cholecystectomy Take 1 Tablet by mouth every 8 hours as needed for Moderate or more severe pain. 12 Tablet 01/30/2022 documented as of this encounter H&P Notes * Brayan Nazario MD - 01/30/2022 10:36 AM CDT We will proceed to the operative room for laparoscopic possible open cholecystectomy with ICG cholangiogram. Risks, benefits and alternatives were discussed with the patient. All questions answered. No changes on H&P. Source Note - Brayan Nazario MD - 01/19/2022 1:30 PM CDT HISTORY AND PHYSICAL Assessment: Consult for gallbladder disease History of depression E cigarette user History of and hysterectomy (partial) Hepatic steatosis PLAN: A very extensive discussion was held with the patient regarding the anatomy of the gallbladder as well as the pathophysiology of gallbladder disease in general. We review the different treatment options which will include observation versus surgical intervention. We review how laparoscopic possible open cholecystectomy with ICG cholangiography is performed. We reviewed the benefits of surgery will will include the removal of the gallbladder with the stones and hopefully that will relieve her symptomatology. We also review the alternative which will be observation. Risk of surgery include but are not limited to bleeding, infection, injury to other structures including common bile duct, bowel, blood vessels, nerves, need for further surgery, etc.. I spent 30 minutes with the patient and family. Greater than 50% of that time was spent in counseling regarding anatomy of gallbladder, treatment options. All questions were answered. Subjective: HPI: Cait Mathews is a 26 y.o. female who I was asked to see for symptomatic gallbladder disease. She is a very pleasant lady with history of hysterectomy that presented to our emergency department back in January 15, 2022 with complaints of chest pain. The pain woke her up in the middle of the night. The pain radiates to her right upper quadrant and epigastric area and to her right flank. She denies any other associated symptoms, afebrile, no chills. She did have some nausea but no emesis. She had had a similar type of pain several months ago. But this 1 lasted longer. No aggravating or alleviating factors reported. No smoking (only vaping), no illicit drug use, ETOH social. NKDA. Previous workup included Abdominal ultrasound performed on 01/15/2022 due to right upper quadrant abdominal pain. Showed gallstones with positive Felipe's sign. CBD measures 4.2 mm in diameter. Hepatic steatosis. There are no problems to display for this patient. No Known Allergies Cannot display prior to admission medications because the patient has not been admitted in this contact. Current Outpatient Medications on File Prior to Visit Medication Sig Dispense Refill ??? acetaminophen-codeine (TYLENOL #3) 300-30 MG Tablet Take 1 Tablet by mouth every 4 hours as needed for Severe pain for up to 14 days. 20 Tablet 0 ??? ibuprofen (MOTRIN) 800 MG Tablet Take 1 Tablet by mouth every 8 hours. 20 Tablet 0 No current facility-administered medications on file prior to visit. Past Medical History Positives Diagnosis Date ??? Depression Past Surgical History: Procedure Laterality Date ??? SECTION 2013 ??? HYSTERECTOMY 2019 spared ovaries ??? KNEE ARTHROSCOPY Left 08/27/2021 Procedure: LEFT KNEE ARTHROSCOPY, MEDIAL MENISCECTOMY; Surgeon: Giuseppe Cortez MD; Location: [facility]; Service: Orthopaedic ??? TONSILLECTOMY Family History Adopted: Yes Problem Relation Age of Onset ??? No Known Problems Mother ??? No Known Problems Daughter ??? No Known Problems Daughter Social History Socioeconomic History ??? Marital status: Single Spouse name: Not on file ??? Number of children: Not on file ??? Years of education: Not on file ??? Highest education level: Not on file Occupational History ??? Not on file Tobacco Use ??? Smoking status: Former Smoker Packs/day: 0.50 Years: 8.00 Pack years: 4.00 Quit date: 2019 Years since quittin.6 ??? Smokeless tobacco: Never Used Vaping Use ??? Vaping Use: Every day ??? Substances: Nicotine Substance and Sexual Activity ??? Alcohol use: Yes Comment: occasionally ??? Drug use: No ??? Sexual activity: Yes Partners: Male control/protection: Surgical Other Topics Concern ??? Not on file Social History Narrative ??? Not on file Review of Systems: Review of Systems Gastrointestinal: Positive for abdominal pain and nausea. Negative for vomiting. Pertinent items are noted in HPI. All other systems were reviewed and were negative. Objective: VITALS: BP 138/68 (BP Location: Right Arm, BP Position: Sitting, BP Cuff Size: Regular) Pulse 92 Temp 98.6 ??F (37 ??C) (Temporal) Ht 5' 1 (1.549 m) Wt 188 lb (85.3 kg) LMP (LMP Unknown) SpO2 98% BMI 35.52 kg/m?? Physical Exam Constitutional: Appearance: Normal appearance. HENT: Head: Normocephalic and atraumatic. Right Ear: External ear normal. Left Ear: External ear normal. Nose: Nose normal. Mouth/Throat: Mouth: Mucous membranes are moist. Pharynx: Oropharynx is clear. Eyes: Extraocular Movements: Extraocular movements intact. Conjunctiva/sclera: Conjunctivae normal. Pupils: Pupils are equal, round, and reactive to light. Cardiovascular: Rate and Rhythm: Normal rate and regular rhythm. Pulses: Normal pulses. Heart sounds: Normal heart sounds. Pulmonary: Effort: Pulmonary effort is normal. Breath sounds: Normal breath sounds. Abdominal: General: Abdomen is flat. Bowel sounds are normal. Palpations: Abdomen is soft. Musculoskeletal: General: Normal range of motion. Cervical back: Normal range of motion and neck supple. Skin: General: Skin is warm. Capillary Refill: Capillary refill takes less than 2 seconds. Neurological: General: No focal deficit present. Mental Status: She is alert and oriented to person, place, and time. Mental status is at baseline. Psychiatric: Mood and Affect: Mood normal. Behavior: Behavior normal. Thought Content: Thought content normal. Judgment: Judgment normal. Data Review: No results for input(s): ALBUMIN, TBIL, BILIRUBIN, ALKALINEPHO, SGOTAST, SGPTALT, TOTALPROTEIN in the last 72 hours. Lab Results Component Value Date WBC 9.83 01/15/2022 HEMOGLOBIN 14.3 01/15/2022 HEMATOCRIT 43.3 01/15/2022 PLATELETCNT 314 01/15/2022 SGPTALT 60 (H) 01/15/2022 SGOTAST 24 01/15/2022 SODIUM 134 (L) 01/15/2022 POTASSIUM 3.8 01/15/2022 CHLORIDE 96 (L) 01/15/2022 CREATININE 0.51 (L) 01/15/2022 BUN 8 01/15/2022 CO2VEN 25 01/15/2022 GLUCOSE 108 (H) 01/15/2022 I personally reviewed the above labs and radiological studies (images if available and reports), and agree with the radiologist unless stated above. By: Brayan Nazario MD, 01/19/2022, 1:50 PM CDT documented in this encounter Nursing Notes * Yumi Pedroza RN - 01/30/2022 11:51 AM CDT WHO Safety Checklist Team Debriefing completed. Additional information discussed during debrief, inrelation to patient specific assessment, includes blood loss, glycemic control, pain management, and venous thromboembolism prophylaxis, as needed. All members of the surgical team participated in the debriefing process, and each records information as applicable in their respective areas of documen tation. Specimen Transported to [facility] ROOM by YUMI PEDROZA RN. documented in this encounter OR Notes * OR Surgeon - Brayan Nazario MD - 01/30/2022 12:08 PM CDT Patient Name: Cait Mathews Patient Location: PACU/PACUI-03 01/30/2022, 12:08 PM CDT Surgeon(s): Brayan Nazario MD 1st Public Relations Counselor: Mary Pan RN 1st Scrub: Elizabeth Henderson GUNNER MATE-Valve And Regulator Repairer Butane Compressor Operator: Yumi Pedroza RN Preoperative diagnosis: Gallbladder disease Postoperative diagnosis: same Procedure: Laparoscopic cholecystectomy with intraoperative cholangiogram using indocyanine green Anesthesia: General EBL: 5 mL Fluids: See anesthesia report Blood Transfusion: none UOP: Not recorded Specimen: Gallbladder, sent to pathology Tubes and Drains: None Grafts/Implants: Implants None Condition: Stable Complications: None Indications: Cait Mathews is a 26 y.o. year old female who presents with gallbladder disease. The patient was recommended to have a cholecystectomy with intraoperative cholangiograms. Laparoscopic and open cholecystectomy procedures were described in detail, the anatomy was drawn out/described, and pathophy siology was discussed. Alternatives, benefits, and risks (including but not limited to pain, infection, bleeding, injury to surrounding structures, injury to the biliary tract and common bile duct, anesthetic risks, DVT, cardiopulmonary events) were discussed. If there are stones present and unableto be cleared, an ERCP may be required. The patient understood the above and consent was obtained for a laparoscopic cholecystectomy with cholangiograms, possible open. All questions were answered. Findings: ICG intraoperative cholangiogram was performed. I was able to identify the junction of the cystic duct with the common bile duct, critical view of safety was photodocumented. Gallbladder presented a large gallstone. Procedure: The patient was brought to the preoperative holding area. H&P was updated for any changes. Cefoxitin was started. Consent was verified. Any questions were answered. After all preop criteria were met, the patient was taken to the operating room. The patient was induced under general anesthesia. Bovie grounding pad was applied. Bilateral LE SCDs were put on. Arms were on arm boards at 90 degrees to the bed, with foam pads on the arm boards. Patient was then prepped and draped in the usual sterile manner. Time out was done to verify patient and procedure and everyone in the room agreed. A Veress needle was placed at elizalde's point. Pneumoperitoneum was achieved to a pressure of 15 mmHg. A 5 mm 0 degree scope was introduced into the abdomen above the umbilicus. We surveyed the abdomen and no other pathology was found. The gallbladder was identified. The patient was put in reverse Trendelenburg and right side up. Two additional 5 mm trocars were placed in the right upper quadrant and a 12 mm trocar in the epigastric area. All trocars were placed under direct vision and trocar sites were anesthetized using local anesthetic. Using a grasper, the gallbladder was elevated above the liver. Omental adhesions were taken down with cautery. Using another grasper and [place] dissector, I was able to start dissecting out the cystic duct and artery. Hook electrocautery was used to mobilize the gallbladder peritoneum on both sides of the gallbladder. With continued dissection, the cystic duct, cystic artery, and common bile duct were identified. The critical view was seen. Intraoperative cholangiogram using indocyanine greenwas performed, I was able to identified the junction between the cystic duct and the common bile duct. After making sure that the biliary structures were safe and that the proper structures were clippedand cut, I started to remove the gallbladder from the hepatic bed with electrocautery. The gallbladder was then removed completely. The gallbladder was grasped with the grasper through the right lateral port. The camera was put into the right mid-lateral port. An endopouch was inserted through the epigastric port and the gallbladder was put into the pouch. The endopouch was closed and left in theabdomen, with the string left outside the abdomen.The camera was reinserted into the umbilical trocar. The 12 mm trocar was removed and the gallbladder was removed through the 12 mm incision in the ep igastric area. The hepatic bed was examined and any bleeding was stopped with cautery. The right upper quadrant was irrigated and suctioned, with return being clear. The patient was flattened and anyremaining fluid in the abdomen and pelvis was suctioned out. The 5 mm trocars were pulled out sequentially while observing for any bleeding. Skin was closed with 4-0 Monocryl sutures, with either in a running or interrupted fashion. The abdomen was washed and dried. Surgical glue was put on all the incisions. Drapes were removed and the patient was woken up and taken to posteroperative area in stable condition. Disposition is to PACU, then home. All counts were correct for laps, sponges, instruments, and needles. Thank you. Brayan Nazario MD 01/30/2022, 12:08 PM CDT documented in this encounter Miscellaneous Notes * Plan of Care - Kaushal Linares RN - 01/30/2022 3:23 PM CDT Problem: Adult Inpatient Plan of Care Goal: Plan of Care Review 01/30/20221521 by Kaushal Linares RN Outcome: Outcome Achieved Flowsheets Taken 01/30/20221521 Outcome Summary: Ready for discharge Taken 01/30/2022855 Progress: progress toward functional goals as expected Plan of Care Reviewed With: patient friend Today's Goal: Good pain control Does the patient need assistance with discharge and/or transitioning to the next level of care?: No, no needs anticipated 01/30/2022855 by Kaushal Linares RN Outcome: Ongoing (see interventions/notes) Flowsheets (Taken 01/30/2022 08) Progress: progress toward functional goals as expected Plan of Care Reviewed With: patient friend Outcome Summary: Ready for surgery Today's Goal: Good pain control Does the patient need assistance with discharge and/or transitioning to the next level of care?: No, no needs anticipated Goal: Absence of Hospital-Acquired Illness or Injury 01/30/20221521 by Kaushal Linares RN Outcome: Outcome Achieved 01/30/2022855 by Kaushal Linares RN Outcome: Ongoing (see interventions/notes) Intervention: Prevent and Manage VTE (Venous Thromboembolism) Risk 01/30/20221521 by Kaushal Linares RN Flowsheets (Taken 01/30/2022 0856) VTE Prevention/Management: ambulation encouraged 01/30/2022855 by Kaushal Linares RN Flowsheets (Taken 01/30/2022 0856) VTE Prevention/Management: ambulation encouraged Goal: Optimal Comfort and Wellbeing 01/30/20221521 by Kaushal Linares RN Outcome: Outcome Achieved 01/30/2022855 by Fahnestock, Kaushal M, RN Outcome: Ongoing (see interventions/notes) Intervention: Provide Person-Centered Care 01/30/20221521 by Kaushal Linares RN Flowsheets (Taken 01/30/2022 0856) Trust Relationship/Rapport: care explained questions answered 01/30/2022855 by Kaushal Linares RN Flowsheets (Taken 01/30/2022 0856) Trust Relationship/Rapport: care explained questions answered Goal: Readiness for Transition of Care 01/30/20221521 by Kaushal Linares RN Outcome: Outcome Achieved 01/30/2022855 by Kaushal Linares RN Outcome: Ongoing (see interventions/notes) Intervention: Mutually Develop Transition Plan 01/30/20221521 by Kaushal Linares RN Flowsheets (Taken 01/30/2022 0856) Equipment Needed After Discharge: none Equipment Currently Used at Home: none Anticipated Changes Related to Illness: none Transportation Concerns: car, none Readmission Within the Last 30 Days: no previous admission in last 30 days Patient/Family Anticipated Services at Transition: none Patient/Family Anticipates Transition to: home with family Transportation Anticipated: family or friend will provide Concerns to be Addressed: no discharge needs identified Offered/Gave Vendor List: no 01/30/2022855 by Kaushal Linares RN Flowsheets (Taken 01/30/2022 0856) Equipment Needed After Discharge: none Equipment Currently Used at Home: none Anticipated Changes Related to Illness: none Transportation Concerns: car, none Readmission Within the Last 30 Days: no previous admission in last 30 days Patient/Family Anticipated Services at Transition: none Patient/Family Anticipates Transition to: home with family Transportation Anticipated: family or friend will provide Concerns to be Addressed: no discharge needs identified Offered/Gave Vendor List: no Problem: Ongoing Anesthesia Effects (Surgery Nonspecified) Goal: Anesthesia/Sedation Recovery 01/30/20221521 by Kaushal Linares RN Outcome: Outcome Achieved 01/30/2022855 by Kaushal Linares RN Outcome: Ongoing (see interventions/notes) Intervention: Optimize Anesthesia Recovery 01/30/20221521 by Kaushal Linares RN Flowsheets Taken 01/30/2022 1522 Outcome Anesthesia/Sedation Recovery: criteria met for discharge Taken 01/30/2022 08 Safety Promotion/Fall Prevention: family at bedside nonskid shoes/slippers when out of bed low bed 01/30/2022 08 by Kaushal Linares RN Flowsheets (Taken 01/30/2022855) Safety Promotion/Fall Prevention: family at bedside nonskid shoes/slippers when out of bed low bed Outcome Anesthesia/Sedation Recovery: ongoing sedation/anesthesia * Plan of Care - Vero Villanueva RN - 01/30/2022 11:56 AM CDT Patient will be discharged from PACU when criteria is met. * Plan of Care - Kaushal Linares RN - 01/30/2022 8:57 AM CDT Problem: Adult Inpatient Plan of Care Goal: Plan of Care Review Outcome: Ongoing (see interventions/notes) Flowsheets (Taken 01/30/2022855) Progress: progress toward functional goals as expected Plan of Care Reviewed With: patient friend Outcome Summary: Ready for surgery Today's Goal: Good pain control Does the patient need assistance with discharge and/or transitioning to the next level of care?: No, no needs anticipated Goal: Absence of Hospital-Acquired Illness or Injury Outcome: Ongoing (see interventions/notes) Intervention: Prevent and Manage VTE (Venous Thromboembolism) Risk Flowsheets (Taken 01/30/2022855) VTE Prevention/Management: ambulation encouraged Goal: Optimal Comfort and Wellbeing Outcome: Ongoing (see interventions/notes) Intervention: Provide Person-Centered Care Flowsheets (Taken 01/30/2022855) Trust Relationship/Rapport: care explained questions answered Goal: Readiness for Transition of Care Outcome: Ongoing (see interventions/notes) Intervention: Mutually Develop Transition Plan Flowsheets (Taken 01/30/2022855) Equipment Needed After Discharge: none Equipment Currently Used at Home: none Anticipated Changes Related to Illness: none Transportation Concerns: car, none Readmission Within the Last 30 Days: no previous admission in last 30 days Patient/Family Anticipated Services at Transition: none Patient/Family Anticipates Transition to: home with family Transportation Anticipated: family or friend will provide Concerns to be Addressed: no discharge needs identified Offered/Gave Vendor List: no Problem: Ongoing Anesthesia Effects (Surgery Nonspecified) Goal: Anesthesia/Sedation Recovery Outcome: Ongoing (see interventions/notes) Intervention: Optimize Anesthesia Recovery Flowsheets (Taken 01/30/2022 0856) Safety Promotion/Fall Prevention: family at bedside nonskid shoes/slippers when out of bed low bed Outcome Anesthesia/Sedation Recovery: ongoing sedation/anesthesia * Interdisciplinary - Malika Sevilla RN - 01/20/2022 2:02 PM CDT [facility] Patient Name: Cait Mathews : 1995 CSN#: [id number] Person Educated Patient Ready to Learn Yes Teaching Method Phone HAVE REQUIRED COVID SWAB TEST ON 01/27/22, 8-4, AT [facility], THEN PROTECT FROM INFECTION AFTERWARDS UNTIL YOUR SURGERY. The Day of Surgery: Call your physician if your physical condition changes (cold, fever, flu). Do not come to the hospital without first calling your physician. Do not eat or drink (no gum, mints, water etc.) unless instructed to do so for at least 8 hours prior to arrival to the hospital. Medications can be taken with a small sip of water. Do not drink any alcohol 24 hours prior to surgery if applicable. Do not smoke for 24 hrs prior to surgery if applicable. Bring CPAP/BIPAP if applicable. Take a shower or bath. Do not apply make-up Wear comfortable, loose fitting clothing Instruction to leave all jewelry at home including wedding/engagement rings or any body piercing jewelry. Leave all valuables at home. Children ages 17 and under must be accompanied by a parent or legal guardian in the hospital at alltimes. Follow your surgeon's instructions for arrival time. If you have questions concerning arrival time,call your surgeon's office. Detailed instructions given for arrival location and parking. Arrange for a responsible person to accompany you, drive you home and stay with you for the first 24 hours following your surgery. If you have not made these arrangements you may be at risk of your surgery being cancelled. Follow directions regarding medications to Take or Hold. It is very important to follow directions from your surgeon's office on Diabetic medication or Blood Thinners. Only 2 adults over the age of 16 will be allowed to accompany you to the [facility]. No children under theage of 16 will be allowed in the [facility] unless they are the patient. If the patient chooses to bring their children under the age of 16, an adult must accompany those children in the surgery waiting room and cannot leave them unattended. During the flu season: refer to the visitation restriction guidelines implemented during that season if applicable. Fall Prevention Teaching The Day of Surgery: ?? Your safety while you are in the hospital is very important to us. Following surgery, you might be at increased risk for falling for several reasons: -The hospital environment is unfamiliar. It???s not the same as being at home -You may be weaker than you realize. -You may be connected to lines or equipment that can cause you to trip. -You may be on medications that make you drowsy or dizzy. We know this can happen especially with pain medication and anesthesia. We want to partner with you in the hospital to make sure you are safe -Please do not feel hesitant to ask for help while in the hospital. You will - need extra help untilyou get stronger especially with walking and using the bathroom. -Pay close attention to what the doctors and nurses tell you about your risk of falling. -A fall can mean a longer hospital stay. Also, injuries from a fall can affect your health for the rest of your life. Some things the nurses may do to keep you safe are: -Have you use the call light for help whenever you get out of bed. -Wear non-skid slippers to keep you from slipping on the floors -Use a special belt that wraps around your waist so we can help steady you when you walk -Activate an alarm on your bed so we know if you are getting up in case you forget to use your calllight -Stay in the bathroom with you in case you become dizzy or light headed Patient Response: Verbalizes Understanding Patient assessed for chinese language professor during the preop interview and appropriate interventions taken if applicable. documented in this encounter Plan of Treatment Not on file documented as of this encounter Procedures Procedure Name Priority Date/Time Associated Diagnosis Comments LAPAROSCOPIC CHOLECYSTECTOMY WITH / WITHOUT CHOLANGIOGRAMS 01/30/2022 10:28 AM CDT BILIARY CALCULUS OF OTHER SITE WITHOUT OBSTRUCTION Special Needs 5'1 188#, NO UCG ON DOS (HYSTERECTOMY) PATHOLOGY SURGICAL Routine 01/30/2022 10:20 AM CDT documented in this encounter Results * Pathology Surgical (01/30/2022 10:20 AM CDT) Case Report Surgical Pathology Report ? Case: [id number] ? Authorizing Provider: ??Brayan Nazario, ??Collected: ? 01/30/2022 10:20 AM ? MD ? Ordering Location: ? [facility] ? Received: ?01/30/2022 01:08 PM ? [facility] ? Main OR ? Pathologist: ? Milo Cummings MD ? Specimen: ?Gallbladder, GALLBLADDER ? 02/02/2022 8:28 AM T [facility] FINAL DIAGNOSIS GALLBLADDER, CHOLECYSTECTOMY: - CHRONIC CHOLECYSTITIS WITH CHOLELITHIASIS - LYMPH NODE WITHOUT SIGNIFICANT HISTOLOGIC ABNORMALITIES. - NEGATIVE FOR DYSPLASIA OR MALIGNANCY. 02/02/2022 8:28 AM [facility] Pre-Operative Diagnosis BILIARY CALCULUS OF OTHER SITE WITHOUT OBSTRUCTION 02/02/2022 8:28 AM [facility] Gross Description A. GALLBLADDER The specimen presents in a single formalin container for gross and microscopic examination, labeled with the patient's name, Cait Mathews, and designated gallbladder. The specimen consists of an intact deflated gallbladder measuring 7.6 cm in length and has a maximum fundal diameter of up to 2.7 cm. The serosal surfaces are pink-carmona, smooth and glistening. The cystic duct is identified and is not clamped. Upon opening there is a 2.5 cm ovoid dark green stone and a dark yellow-green viscous bile. The mucosal surfaces are red-yellow and unremarkable. The gallbladder wall measures up to 0.2 cm in greatest thickness. Lab Clerk sample submitted in cassette A1. KS/sb 02/02/2022 8:28 AM CDT [facility] Microscopic Description Microscopic examination was performed which supports the final diagnosis. All control tissues stained appropriately. 02/02/2022 8:28 AM CDT [facility] Tissue GALLBLADDER STRUCTURE / Unknown 01/30/2022 10:20 AM CDT 01/30/2022 1:08 PM CDT Brayan Nazario MD PATHOLOGY/CYTOLOGY OR DERABLES Final Result [facility] [address] [place] [address] documented in this encounter Visit Diagnoses Diagnosis S/P laparoscopic cholecystectomy- Primary Other postprocedural status documented in this encounter Administered Medications Inactive Administered Medications - up to 3 most recent administrations Medication Order MAR Action Action Date Dose Rate Site acetaminophen (TYLENOL) tablet 975 mg 975 mg, Oral, ONCE, 1 dose, On Wed01/30/22 at 0900, Maximum dose of acetaminophen is 4000 mg from all sources in 24 hours., PRE-OP (SURGERY) Given 01/30/2022 9:06 AM CDT 975 mg ACETAMINOPHEN 325 MG PO TABS 1 dose, Starting on Wed01/30/22 at 0843, Until Wed01/30/22 at 0906, Created by cabinet override celecoxib (CeleBREX) capsule 200 mg 200 mg, Oral, ONCE, 1 dose, On Wed01/30/22 at 0900, PRE-OP (SURGERY) Given 01/30/2022 9:07 AM CDT 200 mg CELECOXIB 200 MG PO CAPS 1 dose, Starting on Wed01/30/22 at 0843, Until Wed01/30/22 at 0907, Created by cabinet override dexamethasone (DECADRON) injection 8 mg 8 mg, Intravenous, ONCE, 1 dose, On Wed01/30/22 at 0900, PRE-OP (SURGERY) Given 01/30/2022 9:07 AM CDT 8 mg DEXAMETHASONE SODIUM PHOSPHATE 4 MG/ML IJ SOLN 1 dose, Starting on Wed01/30/22 at 0843, Until Wed01/30/22 at 0907, Created by cabinet override fentaNYL (PF) (SUBLIMAZE) injection 25-50 mcg 25-50 mcg, Intravenous, EVERY 10 MIN PRN, 5 doses, Starting on Wed01/30/22 at 1149, Until Wed01/30/22 at 1744, Severe pain, Every 5-15 minutes prn to maximum of 200-400 mcg., PACU (I & II) HYDROcodone-acetaminophen (NORCO) 5-325 MG per tablet 1 Tablet 1 Tablet, Oral, EVERY 4 HOURS PRN, Starting on Wed01/30/22 at 1207, Until Wed01/30/22 at 1744, Moderate pain or more severe pain if patient requests, Maximum dose of acetaminophen is 4000 mg from all sources in 24 hours.If pain not effectively managed, then contact provider to discuss possibly 1) adding scheduled opioid dosing or non-opioid pain treatments, 2) increasing dosage, or 3) changing to POLICY ADVISOR. Give 1 Tablet for moderate pain rating of 4-6 Give 2 Tablets for severe pain rating 7-10 Given 01/30/2022 1:10 PM CDT 1 Tablet HYDROCODONE-ACETAMINOPHEN 5-325 MG PO TABS 1 dose, Starting on Wed01/30/22 at 1307, Until Wed01/30/22 at 1744, Created by cabinet override ketorolac (TORADOL) injection 15 mg 15 mg, Intravenous, ONCE, 1 dose, On Wed01/30/22 at 1800 lactated ringers infusion at 10 mL/hr, Intravenous, CONTINUOUS, Starting on Wed01/30/22 at 0900, Until Wed01/30/22 at 1744, To be started in pre op New Bag 01/30/2022 9:00 AM CDT 10 mL/hr MIDAZOLAM HCL (PF) 2 MG/2ML IJ SOLN 1 dose, Starting on Wed01/30/22 at 1039, Until Wed01/30/22 at 1744, Created by cabinet override ondansetron (ZOFRAN) injection 4 mg 4 mg, Intravenous, ONCE, 1 dose, On Wed01/30/22 at 0900, PRE-OP (SURGERY) Given 01/30/2022 9:07 AM CDT 4 mg ondansetron (ZOFRAN) injection 4 mg 4 mg, Intravenous, EVERY 6 HOURS PRN, Starting on Wed01/30/22 at 1149, Until Wed01/30/22 at 1744, Nausea - 1st line, First Line Antiemetic, PACU (I & II) Given 01/30/2022 2:55 PM CDT 4 mg ONDANSETRON HCL 4 MG/2ML IJ SOLN 1 dose, Starting on Wed01/30/22 at 0843, Until Wed01/30/22 at 0907, Created by cabinet override documented in this encounter Active and Recently Administered Medications Times are shown in CDT. Scheduled Medication Order 01/28/2022 01/29/2022 01/30/2022 acetaminophen (TYLENOL) tablet 975 mg (COMPLETED) 975 mg, Oral, ONCE, 1 dose, On Wed01/30/22 at 0900, Maximum dose of acetaminophen is 4000 mg from all sources in 24 hours., PRE-OP (SURGERY) 905 (Given - Provid er: Lianna Mello RN) cefOXitin (MEFOXIN) injection 2 g (COMPLETED) 2 g, Intravenous, ONCE, 1 dose, On Wed01/30/22 at 0900, Administer over 5 Minutes, INTRA-OP, Indications: Perioperative Pharmacoprophylaxis 1101 (Given - Provid er: Ozzy Stout APRN, MANAGER STATISTICS) celecoxib (CeleBREX) capsule 200 mg (COMPLETED) 200 mg, Oral, ONCE, 1 dose, On Wed01/30/22 at 0900, PRE-OP (SURGERY) 906 (Given - Provid er: Lianna Mello RN) dexamethasone (DECADRON) injection 8 mg (COMPLETED) 8 mg, Intravenous, ONCE, 1 dose, On Wed01/30/22 at 0900, PRE-OP (SURGERY) 906 (Given - Provid er: Lianna Mello RN) ketorolac (TORADOL) injection 15 mg 15 mg, Intravenous, ONCE, 1 dose, On Wed01/30/22 at 1800 ondansetron (ZOFRAN) injection 4 mg (COMPLETED) 4 mg, Intravenous, ONCE, 1 dose, On Wed01/30/22 at 0900, PRE-OP (SURGERY) 906 (Given - Provid er: Lianna Mello RN) Continuous Medication Order 01/28/2022 01/29/2022 01/30/2022 lactated ringers infusion at 10 mL/hr, Intravenous, CONTINUOUS, Starting on Wed01/30/22 at 0900, Until Wed01/30/22 at 1744, To be started in pre op 0900 (New Bag - Prov ider: Kaushal Linares RN)1048 (Continued by Anesthesia - Provider: Ozzy Stout APRN, MANAGER STATISTICS)1148 (Anesthesia Volume Adjustment - Provider: Ozzy Stout APRN, RETA)1234 (Infusing on Transfer - Provider: Vero Villanueva RN)1510 (Stopped - Provider: Kaushal Linares RN) PRN Medication Order 01/28/2022 01/29/2022 01/30/2022 bupivacaine (MARCAINE) 0.5 % injection (CANCELED) ONCE (in OR), Starting on Wed01/30/22 at 1149, Until Wed01/30/22 at 1203, INTRA-OP 1149 (Given - Provid er: Brayan Nazario MD) fentaNYL (PF) (SUBLIMAZE) injection 25-50 mcg 25-50 mcg, Intravenous, EVERY 10 MIN PRN, 5 doses, Starting on Wed01/30/22 at 1149, Until Wed01/30/22 at 1744, Severe pain, Every 5-15 minutes prn to maximum of 200-400 mcg., PACU (I & II) HYDROcodone-acetaminophen (NORCO) 5-325 MG per tablet 1 Tablet 1 Tablet, Oral, EVERY 4 HOURS PRN, Starting on Wed01/30/22 at 1207, Until Wed01/30/22 at 1744, Moderate pain or more severe pain if patient requests, Maximum dose of acetaminophen is 4000 mg from all sources in 24 hours.If pain not effectively managed, then contact provider to discuss possibly 1) adding scheduled opioid dosing or non-opioid pain treatments, 2) increasing dosage, or 3) changing to POLICY ADVISOR. Give 1 Tablet for moderate pain rating of 4-6 Give 2 Tablets for severe pain rating 7-10 1310 (Given - Provid er: Kaushal Linares RN) ondansetron (ZOFRAN) injection 4 mg 4 mg, Intravenous, EVERY 6 HOURS PRN, Starting on Wed01/30/22 at 1149, Until Wed01/30/22 at 1744, Nausea - 1st line, First Line Antiemetic, PACU (I & II) 1455 (Given - Provid er: Kaushal Linares RN) No Frequency Medication Order 01/28/2022 01/29/2022 01/30/2022 HYDROCODONE-ACETAMINOPHEN 5-325 MG PO TABS 1 dose, Starting on Wed01/30/22 at 1307, Until Wed01/30/22 at 1744, Created by cabinet override MIDAZOLAM HCL (PF) 2 MG/2ML IJ SOLN 1 dose, Starting on Wed01/30/22 at 1039, Until Wed01/30/22 at 1744, Created by cabinet override documented in this encounter Care Teams Video Game Creator Relationship Specialty Start Date End Date Provider, None [place] PCP - General 05/31/17 11/05/22 Brayan Nazario MD [address] [phone] Consulting Physician General Surgery 01/15/22 documented as of this encounter
--- OUTSIDE RECORDS SUMMARY | 2024-04-27 18:04 | XMS_ITS | Encounter Summary ---
Author Organization [facility] Address [address] [place] [address] Phone Care Team Providers Care Foundry Melt Supervisor Name Role Phone Provider, None Primary Care Provider Unavailabl e Brayan Nazario MD Unavailable Reason for Visit * Reason Onset Date Comments Fever 02/18/2022 Nausea 02/18/2022 Encounter Details Date Type Department Care Team (Late st Contact Info) Description 02/18/2022 Telephone [facility] - General Surgery [facility] [address] [phone] Brayan Nazario MD [address] [phone] Fever; Nausea Social History Tobacco Use Types Packs/Day Years [...] suspected to have Coronavirus/COVID-19? No / Unsure 02/11/2022 9:26 AM CDT documented as of this encounter Miscellaneous Notes * Telephone Encounter - Radha Siddiqi RN - 02/18/2022 11:52 AM CDT Images from the original note were not included. Brayan Nazario MD You Just now (11:48 AM) Follow up with pcp, does she have one? Message text Spoke with Cait who is aware of Dr. Nazario recommendations and verbalizes understanding. * Telephone Encounter - Radha Siddiqi RN - 02/18/2022 11:37 AM CDT Cait called and stated she went to urgent care with a fever of 100.5. She stated she was tested for Covid and Influenza and results were negative. She was told to contact Dr. Nazario due to having surgery Laparoscopic Cholecystectomy on 01/30/22. She denies drainage from incisional sites, denies redness to incisional sites, states all look healed except one that has a small scab, denies temperature changes at incisional sites. Patient complains of nausea and was prescribed Zofran. Cait statedshe had her post-op appointment 02/11/[address] Nazario. Routed to Dr. Nazario, please advise. documented in this encounter Plan of Treatment Not on file documented as of this encounter Visit Diagnoses Not on filedocumented in this encounter Care Teams Foundry Melt Supervisor Relationship Specialty Start Date End Date Provider, None [place] PCP - General 05/31/17 11/05/22 Brayan Nazario MD #[address] [phone] Consulting Physician General Surgery 01/15/22 documented as of this encounter
--- OUTSIDE RECORDS SUMMARY | 2024-04-27 18:04 | XMS_ITS | Encounter Summary ---
Author Organization [facility] Address [address] [place] [address] Phone Care Team Providers Care Editor Farm Journal Name Role Phone Provider, None Primary Care Provider Unavailabl e Brayan Nazario MD Unavailable [phone] Reason for Visit * Auth/Cert Specialty Diagnoses / Procedures Referred By Contac t Referred To Contact Diagnoses BILIARY CALCULUS OF OTHER SITE WITHOUT OBSTRUCTION Procedures LAPAROSCOPIC CHOLECYSTECTOMY WITH / WITHOUT CHOLANGIOGRAMS Brayan Nazario MD #[address] [phone] Phone: tel: fax: Referral ID Status Reason Start Date Expiration Date Visits Re quested Visits Authorized [id number] 1 1 Encounter Details Date Type Department Care Team (Late st Contact Info) Description 01/30/2022 10:40 AM CDT - 01/30/2022 12:40 PM CDT Surgery [facility] [address] [place] [address] Brayan Nazario MD #[address] [phone] LAPAROSCOPIC CHOLECYSTECTOMY WITH INTRAOPERATIVE CHOLAGIOGRAM WITH INDOCYANINE GREEN Surgery Details Date/Time Status Location OR Service Patient Class Case Class Case Type Trauma Case? 01/30/2022 10:40 AM Posted [facility] MAIN OR [address] [place] [address] Ambulatory Surgery Panel 1 Procedure LRB Anes Op Region Wound Class Comments LAPAROSCOPIC CHOLECYSTECTOMY WITH INTRAOPERATIVE CHOLAGIOGRAM WITH INDOCYANINE GREEN N/A General Abdomen Clean Contaminated Surgeon Surgeon Role Service Panel Brayan Nazario MD Primary General 1 Special Needs 5'1 188#, NO UCG ON DOS (HYSTERECTOMY) documented in this encounter Social History Tobacco Use Types Packs/Day Years Used Date Smoking Tobacco: Former Cigarettes 0.5 8 2 012 2019 Smokeless Tobacco: Never Alcohol Use Standard [...] Sign Reading Time Taken Comments Blood Pressure 113/63 01/30/2022 12:34 PM CDT Pulse 47 01/30/2022 12:34 PM CDT Temperature 36.4 ??C (97.5 ??F) 01/30/2022 12:34 PM C DT Respiratory Rate 18 01/30/2022 12:34 PM CDT Oxygen Saturation 96% 01/30/2022 12:34 PM CDT Inhaled Oxygen Concentration - - Weight 86.2 kg (190 lb) 01/30/2022 8:55 AM CDT Height 154.9 cm (5' 1 ) 01/30/2022 8:55 AM CDT Body Mass Index 35.9 01/30/2022 8:55 AM CDT documented in this encounter Discharge Instructions * Medications* Brayan Nazario MD - 01/30/2022 12:13 PM CDT For pain control I will send Leon to your pharmacy You can also supplement [...] Everywhere. * Minimally Invasive Cholecystectomy Care After (South African) documented in this encounter Medications at Time [...] MEDIAL MENISCECTOMY; Surgeon: Giuseppe Cortez MD; Location: [facility] MAIN; Service: Orthopaedic ??? TONSILLECTOMY Family History [...] PM CDT Surgeon(s): Brayan Nazario MD 1st Electrical Development Engineer: Mary Pan RN 1st Scrub: Elizabeth Henderson CST-Composition Teacher Retail Shift Supervisor: Yumi Pedroza RN Preoperative diagnosis: Gallbladder disease [...] 01/30/20221521 Outcome Summary: Ready for discharge Taken 01/30/2022 0856 Progress: progress toward functional goals as expected Plan of Care Reviewed With: patient friend Today's Goal: Good pain control Does the patient need assistance with discharge and/or transitioning to the next level of care?: No, no needs anticipated 01/30/2022855 by Kaushal Linares RN Outcome: Ongoing (see interventions/notes) Flowsheets (Taken 01/30/2022855) [...] by Kaushal Linares RN Flowsheets (Taken 01/30/2022 08) VTE Prevention/Management: ambulation encouraged Goal: Optimal Comfort and Wellbeing 01/30/20221521 by Kaushal Linares RN Outcome: Outcome Achieved 01/30/2022855 by Kaushal Linares RN Outcome: Ongoing (see interventions/notes) Intervention: Provide [...] by Kaushal Linares RN Flowsheets (Taken 01/30/2022 08) Equipment Needed After Discharge: none Equipment Currently [...] by Kaushal Linares RN Outcome: Outcome Achieved 01/30/2022 08 by Kaushal Linares RN Outcome: Ongoing (see interventions/notes) Intervention: Optimize Anesthesia Recovery 01/30/2022 152 by Kaushal Linares RN Flowsheets Taken 01/30/2022 152 Outcome Anesthesia/Sedation Recovery: criteria met for discharge Taken 01/30/2022 0856 Safety Promotion/Fall Prevention: family at bedside nonskid shoes/slippers when out of bed low bed 01/30/2022 0856 by Kaushal Linares RN Flowsheets (Taken 01/30/2022 0856) Safety Promotion/Fall Prevention: [...] Review Outcome: Ongoing (see interventions/notes) Flowsheets (Taken 01/30/2022 0856) Progress: progress toward functional goals as expected [...] Manage VTE (Venous Thromboembolism) Risk Flowsheets (Taken 01/30/2022 0856) VTE Prevention/Management: ambulation encouraged Goal: Optimal Comfort and Wellbeing Outcome: Ongoing (see interventions/notes) Intervention: Provide Person-Centered Care Flowsheets (Taken 01/30/2022 0856) Trust Relationship/Rapport: care explained questions answered Goal: Readiness for Transition of Care Outcome: Ongoing (see interventions/notes) Intervention: Mutually Develop Transition Plan Flowsheets (Taken 01/30/2022 0856) Equipment Needed After [...] Sevilla RN - 01/20/2022 2:02 PM CDT [facility] ADULT TEACHING Patient Name: Cait Mathews : 1995 CSN#: [id number] Person Educated Patient Ready to Learn Yes Teaching Method Phone HAVE REQUIRED COVID SWAB TEST ON 01/27/22, 8-4, AT [facility], THEN PROTECT FROM INFECTION AFTERWARDS UNTIL YOUR [...] be allowed to accompany you to the [facility]. No children under theage of 16 will be allowed in the [facility] unless they are the patient. If [...] Patient Response: Verbalizes Understanding Patient assessed for parts interpreter during the preop interview and appropriate interventions [...] Case Report Surgical Pathology Report ? Case: [id number] ? Authorizing Provider: ??Brayan Nazario, ??Collected: ? 01/30/2022 10:20 AM ? MD ? Ordering Location: ? [facility] ? Received: ?01/30/2022 01:08 PM ? [facility] ? Main OR ? Pathologist: ? Milo Cummings MD ? Specimen: ?Gallbladder, GALLBLADDER ? 02/02/2022 8:28 AM CDT [facility] FINAL DIAGNOSIS GALLBLADDER, CHOLECYSTECTOMY: - CHRONIC CHOLECYSTITIS WITH CHOLELITHIASIS - LYMPH NODE WITHOUT SIGNIFICANT HISTOLOGIC ABNORMALITIES. - NEGATIVE FOR DYSPLASIA OR MALIGNANCY. 02/02/2022 8:28 AM CDT [facility] Pre-Operative Diagnosis BILIARY CALCULUS OF OTHER SITE WITHOUT OBSTRUCTION 02/02/2022 8:28 AM CDT [facility] Gross Description A. GALLBLADDER The [...] up to 0.2 cm in greatest thickness. Clinical Counselor sample submitted in cassette A1. KS/sb 02/02/2022 8:28 AM CDT [facility] Microscopic Description Microscopic examination was performed which supports the final diagnosis. All control tissues stained appropriately. 02/02/2022 8:28 AM CDT [facility] Tissue GALLBLADDER STRUCTURE / Unknown 01/30/2022 10:20 AM CDT 01/30/2022 1:08 PM CDT us Brayan Nazario MD PATHOLOGY/CYTOLOGY OR DERABLES Final Result [facility] [address] [place] [address] documented in this encounter Visit Diagnoses Not [...] Wed01/30/22 at 0906, Created by cabinet override bupivacaine (MARCAINE) 0.5 % injection ONCE (in OR), Starting on Wed01/30/22 at 1149, Until Wed01/30/22 at 1203, INTRA-OP Given 01/30/2022 11:49 AM CDT 17 mL Operative Site celecoxib (CeleBREX) capsule 200 mg 200 mg, [...] of 200-400 mcg., PACU (I & II) HYDROcodone-acetaminophe n (NORCO) 5-325 MG per tablet 1 Tablet [...] 2) increasing dosage, or 3) changing to NURSING COORDINATOR. Give 1 Tablet for moderate pain rating of 4-6 Give 2 Tablets for severe pain rating 7-10 Given 01/30/2022 1:10 PM CDT 1 Tablet HYDROCODONE-ACETAMINOPHE N 5-325 MG PO TABS 1 dose, Starting [...] (Given - Provid er: Ozzy Stout APRN, AREA CLEANER) celecoxib (CeleBREX) capsule 200 mg (COMPLETED) 200 mg, Oral, ONCE, 1 dose, On Wed01/30/22 at 0900, PRE-OP (SURGERY) 906 (Given - Provid er: Lianna Mello RN) dexamethasone (DECADRON) injection 8 mg (COMPLETED) 8 mg, Intravenous, ONCE, 1 dose, On Wed01/30/22 at 0900, PRE-OP (SURGERY) 0907 (Given - Provid er: Lianna Mello RN) ketorolac (TORADOL) injection 15 mg 15 mg, Intravenous, ONCE, 1 dose, On Wed01/30/22 at 1800 ondansetron (ZOFRAN) injection 4 mg (COMPLETED) 4 mg, Intravenous, ONCE, 1 dose, On Wed01/30/22 at 0900, PRE-OP (SURGERY) 0907 (Given - Provid er: Lianna Mello RN) Continuous Medication Order 01/28/2022 01/29/2022 01/30/2022 lactated ringers infusion at 10 mL/hr, Intravenous, CONTINUOUS, Starting on Wed01/30/22 at 0900, Until Wed01/30/22 at 1744, To be started in pre op 0900 (New Bag - Prov ider: Kaushal Linares RN)1048 (Continued by Anesthesia - Provider: Ozzy Stout APRN, RETA)1148 (Anesthesia Volume Adjustment - Provider: Ozzy Stout [...] 2) increasing dosage, or 3) changing to NURSING COORDINATOR. Give 1 Tablet for moderate pain rating [...] override documented in this encounter Care Teams Editor Farm Journal Relationship Specialty Start Date End Date Provider, None [place] PCP - General 05/31/17 11/05/22 Brayan Nazario MD #[address] [phone] Consulting Physician General Surgery 01/15/22 documented as of this encounter
--- OUTSIDE RECORDS SUMMARY | 2024-04-27 18:04 | XMS_ITS | Encounter Summary ---
Author Organization [facility] Address [address] [place] [address] Phone Care Team Providers Care Union Steward Name Role Phone Provider, None Primary Care Provider Brayan Barrett MD Unavailable [phone] Apolinar Crowley MD Primary Care Provider [phone] Encounter Details Date Type Department Care Team (Late st Contact Info) Description 08/11/2021 Transcribe Orders [facility] [address] [place] [id number] Giuseppe Cortez MD [address] [place] [address] Pre-op testing (Primary Dx) Social History Tobacco Use Types Packs/Day Years Used Date Smoking Tobacco: Every Day Cigarettes Smokeless Tobacco: Never Alcohol Use Standard Drinks/Week Comments Yes 0 (1 standard drink = 0.6 oz pur e alcohol) occasionally Comments No Sex and Gender Information Value Date Recorded Sex Assigned at Not on file Legal Sex Female 11:35 PM CDT Gender Identity Not on file Sexual Orientation Not on file COVID-19 Exposure Response Date Recorded In the last 10 days, have yo u been in contact with someone who was confirmed or suspected to have Coronavirus/COVID-19? No / Unsure 08/13/2021 9:12 AM CDT documented as of this encounter Plan of Treatment Not on file documented as of this encounter Results * SARS-COV-2 BY MOLECULAR (08/25/2021 6:34 AM CDT) SARSCOV2 NOT DETECTED (Referenc e Range for this test is Not Detected) [facility] ID NOW B 08/25/2021 8:20 AM CDT [facility] Comment:This test was perfor med by a MOLECULAR, NON-PCR method Other NASAL STRUCTURE / Unknown Non-Phlebotomy Collection / Unknown 08/25/2021 6:34 AM CDT 08/25/2021 6:55 AM CDT Narrative [facility] - 08/25/2021 8:20 AM CDT This test has been authorized by the FDA under an Emergency Use Authorization (EUA) only. Negative results should be treated as presumptive and, if inconsistent with clinical signs and symptoms or necessary for patient management, the patient should be tested with an alternative molecular assay. Negative results do not preclude SARS-CoV-2 infection or any other respiratory pathogen. Additional information for Clinicians can be found at: https://www.fda.gov/media/185708/download Additional information for Patients can be found at: https://www.fda.gov/media/601933/download Giuseppe Cortez MD MICROBIOLOGY - GENERAL ORD ERABLES Final Result [facility] [address] [place] [address] documented in this encounter Visit Diagnoses Diagnosis Pre-op testing- Primary Preoperative examination, unspecified documented in this encounter Care Teams Union Steward Relationship Specialty Start Date End Date Provider, None [place] PCP - General 05/31/17 11/05/22 Apolinar Crowley MD [address] [place] [address] [place] [address] PCP - General Contact Center Engineer 11/06/22 Brayan Nazario MD [address] [address] Consulting Physician General Surgery 01/15/22 documented as of this encounter
--- OUTSIDE RECORDS SUMMARY | 2024-04-27 18:04 | XMS_ITS | Encounter Summary ---
Author Organization [facility] Address [address] [place] [address] Phone Care Team Providers Care Welt Pocket Machine Operator Name Role Phone Provider, None Primary Care Provider Unavailabl e Brayan Nazario MD Unavailable Reason for Referral * Other (Routine) - Closed Specialty Diagnoses / Procedures Referred By Contac t Referred To Contact General Surgery Diagnoses Biliary calculus of other site without obstruction Procedures GENERAL SURGERY PROCEDURE LAP,CHOLECYSTECTOMY/GRAPH Brayan Nazario MD [address] [address] Phone: tel: fax: Referral ID Status Reason Start Date Expiration Date Visits Re quested Visits Authorized [id number] Closed 01/19/2022 1 1 Reason for Visit * Reason Comments ED Follow-up Abdominal Pain Choleltihiasis Encounter Details Date Type Department Care Team (Late st Contact Info) Description 01/19/2022 1:30 PM CDT Office Visit [facility] - General Surgery - [place] [address] [phone] Brayan Nazario MD [address] [phone] Biliary calculus of other site without obstruction (Primary Dx) Discharge Disposition: Discharged to home or Selfcare [...] suspected to have Coronavirus/COVID-19? No / Unsure 01/19/2022 1:29 PM CDT documented as of this encounter Last Filed Vital Signs Vital Sign Reading Time Taken Comments Blood Pressure 138/68 01/19/2022 1:32 PM CDT Pulse 92 01/19/2022 1:32 PM CDT Temperature 37 ??C (98.6 ??F) 01/19/2022 1:32 PM CDT Respiratory Rate - - Oxygen Saturation 98% 01/19/2022 1:32 PM CDT Inhaled Oxygen Concentration - - Weight 85.3 kg (188 lb) 01/19/2022 1:32 PM CDT Height 154.9 cm (5' 1 ) 01/19/2022 1:32 PM CDT Body Mass Index 35.52 01/19/2022 1:32 PM CDT documented in this encounter Patient Instructions * Patient Instructions* Brayan Nazario MD - 01/19/2022 1:30 PM CDT Images from the original note were not included. Minimally Invasive Cholecystectomy Minimally invasive cholecystectomy is surgery to remove the gallbladder. The gallbladder is a pear-shaped organ that lies beneath the liver on the right side of the body. The gallbladder stores bile,which is a fluid that helps the body digest fats. Cholecystectomy is often done to treat inflammation of the gallbladder (cholecystitis). This condition is usually caused by a buildup of gallstones (cholelithiasis) in the gallbladder. Gallstones can block the flow of bile, which can result in inflammation and pain. In severe cases, emergency surgery may be required. This procedure is done though small incisions in the abdomen, instead of one large incision. It is also called laparoscopic surgery. A thin scope with a camera (laparoscope) is inserted through one incision. Then surgical instruments are inserted through the other incisions. In some cases, a minimally invasive surgery may need to be changed to a surgery that is done through a larger incision. This is called open surgery. Tell a health care provider about: ?? Any allergies you have. ?? All medicines you are taking, including vitamins, herbs, eye drops, creams, and pmaz-ofe-ujhvstkrcwjwqfkf. ?? Any problems you or family members have had with anesthetic medicines. ?? Any blood disorders you have. ?? Any surgeries you have had. ?? Any medical conditions you have. ?? Whether you are or may be . What are the risks? Generally, this is a safe procedure. However, problems may occur, including: ?? Infection. ?? Bleeding. ?? Allergic reactions to medicines. ?? Damage to nearby structures or organs. ?? A stone remaining in the common bile duct. The common bile duct carries bile from the gallbladder into the small intestine. ?? A bile leak from the cyst duct that is clipped when your gallbladder is removed. What happens before the procedure? Staying hydrated Follow instructions from your health care provider about hydration, which may include: ?? Up to 2 hours before the procedure - you may continue to drink clear liquids, such as water, clear fruit juice, black coffee, and plain tea. Eating and drinking restrictions Follow instructions from your health care provider about eating and drinking, which may include: ?? 8 hours before the procedure - stop eating heavy meals or foods, such as meat, fried foods, or fatty foods. ?? 6 hours before the procedure - stop eating light meals or foods, such as toast or cereal. ?? 6 hours before the procedure - stop drinking milk or drinks that contain milk. ?? 2 hours before the procedure - stop drinking clear liquids. Medicines Ask your health care provider about: ?? Changing or stopping your regular medicines. This is especially important if you are taking diabetes medicines or blood thinners. ?? Taking medicines such as aspirin and ibuprofen. These medicines can thin your blood. Do not takethese medicines unless your health care provider tells you to take them. ?? Taking ppjg-ixs-lxpqmyk medicines, vitamins, herbs, and supplements. General instructions ?? Let your health care provider know if you develop a cold or an infection before surgery. ?? Plan to have someone take you home from the hospital or clinic. ?? If you will be going home right after the procedure, plan to have someone with you for 24 hours. ?? Ask your health care provider: ? How your surgery site will be marked. ? What steps will be taken to help prevent infection. These may include: ?? Removing hair at the surgery site. ?? Washing skin with a germ-killing soap. ?? Taking antibiotic medicine. What happens during the procedure? ?? An IV will be inserted into one of your veins. ?? You will be given one or both of the following: ? A medicine to help you relax (sedative). ? A medicine to make you fall asleep (general anesthetic). ?? A breathing tube will be placed in your mouth. ?? Your surgeon will make several small incisions in your abdomen. ?? The laparoscope will be inserted through one of the small incisions. The camera on the laparoscope will send images to a monitor in the operating room. This lets your surgeon see inside your abdomen. ?? A gas will be pumped into your abdomen. This will expand your abdomen to give the surgeon more room to perform the surgery. ?? Other tools that are needed for the procedure will be inserted through the other incisions. The gallbladder will be removed through one of the incisions. ?? Your common bile duct may be examined. If stones are found in the common bile duct, they may be removed. ?? After your gallbladder has been removed, the incisions will be closed with stitches (sutures), jose, or skin glue. ?? Your incisions may be covered with a bandage (dressing). The procedure may vary among health care providers and hospitals. What happens after the procedure? ?? Your blood pressure, heart rate, breathing rate, and blood oxygen level will be monitored until you leave the hospital or clinic. ?? You will be given medicines as needed to control your pain. ?? If you were given a sedative during the procedure, it can affect you for several hours. Do not drive or operate machinery until your health care provider says that it is safe. Summary ?? Minimally invasive cholecystectomy, also called laparoscopic cholecystectomy, is surgery to remove the gallbladder using small incisions. ?? Tell your health care provider about all the medical conditions you have and all the medicines you are taking for those conditions. ?? Before the procedure, follow instructions about eating or drinking restrictions and changing or stopping medicines. ?? If you were given a sedative during the procedure, it can affect you for several hours. Do not drive or operate machinery until your health care provider says that it is safe. This information is not intended to replace advice given to you by your health care provider. Make sure you discuss any questions you have with your health care provider. Document Revised: 01/29/2020 Document Reviewed: 01/29/2020 [employer] Patient Education ?? 2021 [employer]. documented in this encounter Progress Notes * Brayan Nazario MD - 01/19/2022 1:30 PM [...] MEDIAL MENISCECTOMY; Surgeon: Giuseppe Cortez MD; Location: [facility]; Service: Orthopaedic ??? TONSILLECTOMY Family History Adopted: [...] 1:50 PM CDT documented in this encounter Plan of Treatment Scheduled Orders Name Type Priority Associated Diagnoses Orde r Schedule GENERAL SURGERY PROCEDURE Procedures Routine Biliary calculus of other site without obstruction Expected: 01/19/2022, Expires: 03/20/2022 documented as of this encounter Visit Diagnoses Diagnosis Biliary calculus of other site without obstruction- Primary documented in this encounter Care Teams Welt Pocket Machine Operator Relationship Specialty Start Date End Date Provider, None [place] PCP - General 05/31/17 11/05/22 Brayan Nazario MD [address] [address] Consulting Physician General Surgery 01/15/22 documented as of this encounter
--- OUTSIDE RECORDS SUMMARY | 2024-04-27 18:04 | XMS_ITS | Encounter Summary ---
Author Organization [facility] Address [address] [place] [address] Phone Care Team Providers Care Running Rigger Name Role Phone Provider, None Primary Care Provider Unavailabl e Brayan Nazario MD Unavailable Reason for Visit * Reason Comments Surgical Follow-up F/u lap laura Encounter Details Date Type Department Care Team (Late st Contact Info) Description 02/11/2022 9:30 AM CDT Office Visit [facility] - General Surgery [facility] #[address] [phone] Brayan Nazario MD #[address] [phone] S/P laparoscopic cholecystectomy (Primary Dx) Discharge Disposition: Discharged to home [...] Sign Reading Time Taken Comments Blood Pressure 130/78 02/11/2022 9:31 AM CDT Pulse 88 02/11/2022 9:31 AM CDT Temperature 37 ??C (98.6 ??F) 02/11/2022 9:31 AM CDT Respiratory Rate - - Oxygen Saturation 100% 02/11/2022 9:31 AM CDT Inhaled Oxygen Concentration - - Weight 85.3 kg (188 lb) 02/11/2022 9:31 AM CDT Height 154.9 cm (5' 1 ) 02/11/2022 9:31 AM CDT Body Mass Index 35.52 02/11/2022 9:31 AM CDT documented in this encounter Patient Instructions * Patient Instructions* Brayan Nazario MD - 02/11/2022 9:30 AM CDT FINAL DIAGNOSIS GALLBLADDER, CHOLECYSTECTOMY: - CHRONIC CHOLECYSTITIS WITH CHOLELITHIASIS - LYMPH NODE WITHOUT SIGNIFICANT HISTOLOGIC ABNORMALITIES. - NEGATIVE FOR DYSPLASIA OR MALIGNANCY. documented in this encounter Progress Notes * Brayan Nazario MD - 02/11/2022 9:30 AM CDT Cait Mathews POSTOPERATIVE EVALUATION DOS: 02/11/2022 SUBJECTIVE Patient is seen in the office today S/P Laparoscopic cholecystectomy with intraoperative cholangiogram using indocyanine green. She is progressing well , she did complain of some nausea. Pain absent.Denies constipation, diarrhea, or food intolerances. OBJECTIVE BP 130/78 (BP Location: Left Arm, BP Position: Sitting, BP Cuff Size: Regular) Pulse 88 Temp 98.6 ??F (37 ??C) (Temporal) Ht 5' 1 (1.549 m) Wt 188 lb (85.3 kg) LMP (LMP Unknown) SpO2 100% BMI 35.52 kg/m?? Exam: Alert, no acute distress Incision(s): Healing well w/o erythema, induration or drainage. ASSESSMENT: S/p Laparoscopic cholecystectomy with intraoperative cholangiogram using indocyanine green done on 01/30/2022 for gallbladder disease PLAN Pathology: Discussed results and implications. Activity: May resume full activity. Follow-up: As needed. School/work release: Not needed. Zofran sent to pharmacy. I encouraged the patient to contact the office for any questions or problems. Patient verbalized understanding. Documentation for this visit was completed using a template. I have seen and examined the patient. Everything documented was personally performed at this visit with the necessary additions, deletionsand changes made as appropriate. By: Brayan Nazario MD, 02/11/2022, 9:42 AM CDT documented in this encounter Plan of Treatment Not on file documented as of this encounter Visit Diagnoses Diagnosis S/P laparoscopic cholecystectomy- Primary Other postprocedural status documented in this encounter Care Teams Running Rigger Relationship Specialty Start Date End Date Provider, None [place] PCP - General 05/31/17 11/05/22 Brayan Nazario MD [address] [phone] Consulting Physician General Surgery 01/15/22 documented as of this encounter
--- OUTSIDE RECORDS SUMMARY | 2024-04-27 18:04 | XMS_ITS | Encounter Summary ---
Author Organization [employer] Care Team Providers Care Switchboard Operator Supervisor Name Role Phone Provider, None Primary Care Provider Brayan Barrett MD Unavailable Encounter Details Date Type Department Care Team (Latest Contact Info) Description 02/18/2022 Travel Social History Tobacco Use Types Packs/Day [...] suspected to have Coronavirus/COVID-19? No / Unsure 02/18/2022 3:27 PM CDT documented as of this encounter Plan of Treatment Not on file documented as of this encounter Visit Diagnoses Not on filedocumented in this encounter Care Teams Switchboard Operator Supervisor Relationship Specialty Start Date End Date Provider, None [place] PCP - General 05/31/17 11/05/22 Brayan Nazario MD #[address] [phone] Consulting Physician General Surgery 01/15/22 documented as of this encounter
--- OUTSIDE RECORDS SUMMARY | 2024-04-27 18:04 | XMS_ITS | Encounter Summary ---
Author Organization [employer] Care Team Providers Care Manager Site Name Role Phone Provider, None Primary Care Provider Brayan Barrett MD Unavailable Encounter Details Date Type Department Care Team (Latest Contact Info) Description 01/15/2022 Travel Social History Tobacco Use Types Packs/Day [...] suspected to have Coronavirus/COVID-19? No / Unsure 01/15/2022 11:25 AM CDT documented as of this encounter Plan of Treatment Not on file documented as of this encounter Visit Diagnoses Not on filedocumented in this encounter Care Teams Manager Site Relationship Specialty Start Date End Date Provider, None NIK[place] PCP - General 05/31/17 11/05/22 Brayan Nazario MD #[address] [phone] Consulting Physician General Surgery 01/15/22 documented as of this encounter
--- OUTSIDE RECORDS SUMMARY | 2024-04-27 18:04 | XMS_ITS | Encounter Summary ---
Author Organization [facility] Address [address] [place] [address] Phone Care Team Providers Care Court Advocate Name Role Phone Brayan Nazario MD Unavailable Apolinar Crowley MD Primary Care Provider [phone] Reason for Visit * Reason Comments Dizziness Encounter Details Date Type Department Care Team (Late st Contact Info) Description 12/28/2022 5:38 PM CDT - 12/28/2022 10:03 PM CDT Emergency [facility] Emergency [address] [place] [address] Yash Dalal MD [address] [place] [address] Vertigo Discharge Disposition: Discharged to home or Selfcare [...] Mass Index 36.98 12/28/2022 5:35 PM CDT documented in this encounter Discharge Instructions * Attachments The following attachments cannot be sent through Care Everywhere. * Vertigo (Lithuanian) documented in this encounter Medications at Time of Discharge famotidine (PEPCID) 20 MG Tablet Take 1 Tablet by mouth 2 times daily as needed for Heartburn. 30 Tablet 2022 HYDROcodone-acetamino phen (NORCO) 5-325 MG TabletIndications:Gas trocnemius strain, right, initial encounter Take 1 Tablet by mouth every 6 hours as needed for Mild or more severe pain. 12 Tablet 04/14/2022 HYDROcodone-acetamino phen (NORCO) 5-325 MG TabletIndications:S/P laparoscopic cholecystectomy Take 1 Tablet by mouth every 8 hours as needed for Moderate or more severe pain. 12 Tablet 01/30/2022 hydrOXYzine (ATARAX) 25 MG Tablet Take 1 Tablet by mouth every 6 hours as needed for Anxiety. 90 Tablet 2022 ibuprofen (MOTRIN) 800 MG Tablet Take 1 Tablet by mouth every 6 hours as needed for Mild or more severe pain. 30 Tablet 04/14/2022 meclizine (ANTIVERT) 25 MG Tablet Take 1 Tablet by mouth 3 times daily as needed for Dizziness. 30 Tablet 12/28/2022 ondansetron (Zofran) 4 MG TabletIndications:S/P laparoscopic cholecystectomy Take 1 Tablet by mouth every 8 hours as needed for Nausea - 1st line. 15 Tablet 02/11/2022 documented as of this encounter ED Notes * Georgette Grady RN - 12/28/2022 10:00 PM CDT Patient discharged. Discharge instructions and patient educational material reviewed with patient; questions and concerns addressed; patient verbalizes understanding, using teach back. Patient was given one prescriptions. Patient discharged per ambulatory mode with self as responsible green party. SL D/C'ed with Kaz cath intact. PAtient denied D/C BP. * Georgette Grady RN - 12/28/2022 9:19 PM CDT Pt medicated per provider orders. Pt educated on intended effects and side effects of medication and verbalized understanding, able to provide teach back of education. * Georgette Grady RN - 12/28/2022 8:05 PM CDT Pt medicated per provider orders. Pt educated on intended effects and side effects of medication and verbalized understanding, able to provide teach back of education. * Georgette Grady RN - 12/28/2022 7:30 PM CDT Patient is resting in room with call light at bedside. Patient informed about wait time and verbalizes understanding. Patient denies needs at this time and verbalizes understanding that RN will complete hourly rounding. * Yash Dalal MD - 12/28/2022 7:17 PM CDT Chief Complaint Patient presents with ??? Dizziness Patient 27-year-old female presents emergency room with dizziness. Patient describes the dizziness more as a sensation of movement consistent with a vertigo. He has been to 2 different care providerswho have prescribed her antihistamines such as Zyrtec without any improvement. She states if she lays still in her bed she has no symptoms but if she gets up to move around then the symptoms of dizziness and movement develop. Patient states symptoms have been going on for the past month. She deniesany chest pain or shortness of breath. No current facility-administered medications for this encounter. Current Outpatient Medications Medication Sig Dispense Refill ??? famotidine (PEPCID) 20 MG Tablet Take 1 Tablet by mouth 2 times daily as needed for Heartburn. 30 Tablet 0 ??? HYDROcodone-acetaminophen (NORCO) 5-325 MG Tablet Take 1 Tablet by mouth every 6 hours as needed for Mild or more severe pain. 12 Tablet 0 ??? HYDROcodone-acetaminophen (NORCO) 5-325 MG Tablet Take 1 Tablet by mouth every 8 hours as needed for Moderate or more severe pain. (Patient not taking: Reported on 02/11/2022) 12 Tablet 0 ??? hydrOXYzine (ATARAX) 25 MG Tablet Take 1 Tablet by mouth every 6 hours as needed for Anxiety. 90 Tablet 0 ??? ibuprofen (MOTRIN) 800 MG Tablet Take 1 Tablet by mouth every 6 hours as needed for Mild or more severe pain. 30 Tablet 0 ??? meclizine (ANTIVERT) 25 MG Tablet Take 1 Tablet by mouth 3 times daily as needed for Dizziness.30 Tablet 0 ??? ondansetron (Zofran) 4 MG Tablet Take 1 Tablet by mouth every 8 hours as needed for Nausea - 1st line. 15 Tablet 0 No Known Allergies Past Medical History Positives Diagnosis Date ??? Depression Past Surgical History: Procedure Laterality Date ??? CHOLECYSTECTOMY, LAPAROSCOPIC N/A 01/30/2022 Procedure: LAPAROSCOPIC CHOLECYSTECTOMY WITH INTRAOPERATIVE CHOLAGIOGRAM WITH INDOCYANINE GREEN; Surgeon: Brayan Nazario MD; Location: [facility]; Service: General ??? SECTION 2013 ??? HYSTERECTOMY 2019 spared ovaries ??? KNEE ARTHROSCOPY Left 08/27/2021 Procedure: LEFT KNEE ARTHROSCOPY, MEDIAL MENISCECTOMY; Surgeon: Giuseppe Cortez MD; Location: [facility]; Service: Orthopaedic ??? TONSILLECTOMY Social History Socioeconomic History ??? Marital status: Single Spouse name: Not on file ??? Number of children: Not on file ??? Years of education: Not on file ??? Highest education level: Not on file Occupational History ??? Not on file Tobacco Use ??? Smoking status: Former Packs/day: 0.50 Years: 8.00 Pack years: 4.00 Types: Cigarettes Quit date: 2019 Years since quittin.6 ??? Smokeless tobacco: Never Vaping Use ??? Vaping Use: Every day ??? Substances: Nicotine Substance and Sexual Activity ??? Alcohol use: Yes Comment: occasionally ??? Drug use: No ??? Sexual activity: Yes Partners: Male control/protection: Surgical Other Topics Concern ??? Not on file Social History Narrative ??? Not on file BP 136/75 Pulse 74 Temp 97.5 ??F (36.4 ??C) (Tympanic) Resp 16 Ht 5' (1.524 m) Wt 189 lb 6 oz (85.9 kg) LMP (LMP Unknown) SpO2 99% BMI 36.98 kg/m?? Review of Systems Constitutional: Negative for activity change, appetite change, chills and fever. HENT: Negative for congestion, ear pain, rhinorrhea, sore throat and trouble swallowing. Eyes: Negative for pain and visual disturbance. Respiratory: Negative for cough, shortness of breath and wheezing. Cardiovascular: Negative for chest pain. Gastrointestinal: Negative for abdominal pain, diarrhea, nausea and vomiting. Genitourinary: Negative for difficulty urinating and dysuria. Musculoskeletal: Negative for arthralgias and back pain. Skin: Negative for pallor. Neurological: Positive for dizziness and light-headedness. Negative for syncope, facial asymmetry, speech difficulty, weakness and headaches. Hematological: Negative for adenopathy. Psychiatric/Behavioral: Negative for confusion. All other systems reviewed and are negative. Physical Exam Vitals and nursing note reviewed. Constitutional: General: She is not in acute distress. Appearance: She is well-developed. She is not diaphoretic. HENT: Head: Normocephalic and atraumatic. Right Ear: External ear normal. Left Ear: External ear normal. Eyes: Extraocular Movements: Right eye: Nystagmus ( mild) present. Normal extraocular motion. Left eye: Nystagmus (Mild) present. Normal extraocular motion. Conjunctiva/sclera: Conjunctivae normal. Pupils: Pupils are equal, round, and reactive to light. Neck: Trachea: No tracheal deviation. Cardiovascular: Rate and Rhythm: Normal rate and regular rhythm. Heart sounds: Normal heart sounds. No murmur heard. Pulmonary: Effort: Pulmonary effort is normal. No respiratory distress. Breath sounds: Normal breath sounds. No wheezing or rales. Abdominal: General: Bowel sounds are normal. There is no distension. Palpations: Abdomen is soft. Tenderness: There is no abdominal tenderness. There is no guarding or rebound. Musculoskeletal: General: Normal range of motion. Cervical back: Normal range of motion. Skin: General: Skin is warm and dry. Neurological: Mental Status: She is alert and oriented to person, place, and time. Cranial Nerves: No cranial nerve deficit. Procedures Imaging Results CT HEAD OR BRAIN WO CONTRAST (Final result) Result time 12/28/22 20:15:42 Final result by Brendan Underwood DO (12/28/22 20:15:42) Impression: IMPRESSION: No acute intracranial findings. If clinical concern persists; recommend MRI for further evaluation. Narrative: EXAM DESCRIPTION: CT HEAD OR BRAIN WO CONTRAST REASON FOR STUDY: c/o dizziness x one month worsening today TECHNIQUE: Axial images acquired through the brain without intravenous contrast. Images stored on PACS. Automated exposure control was used as a dose optimization technique for this examination. COMPARISON: None available. FINDINGS: BRAIN: No hemorrhage, edema or mass effect. No recent infarct. Small hypodensities involving the right basal ganglia which may represent prominent perivascular spaces. Normal white matter. EXTRA-AXIAL SPACES: No fluid collections. No masses. CALVARIUM: No fracture. SINUSES/MASTOIDS: No fluid or mucosal thickening. ORBITS: No significant abnormality. OTHER: No other significant abnormality. THIS IS AN ELECTRONICALLY VERIFIED FINAL REPORT 12/28/2022 8:12 PM - Electronically signed by Brendan PEREIRA: KELLI Report ID: [id number] Reading Location: [place] [address] Labs Reviewed CMP (COMPREHENSIVE METABOLIC PANEL) - Abnormal; Notable for the following components: Result Value GLUCOSE 103 (*) SGPT (ALT) 57 (*) All other components within normal limits URINALYSIS REFLEX IF INDICATED BY ABNORMAL RESULTS - Abnormal; Notable for the following components: PROTEIN, RANDOM URINE 15 mg/dL (*) All other components within normal limits TROPONIN I, HIGH SENSITIVITY (HSTRP) - Normal COMPLETE BLOOD COUNT (CBC) WITH DIFF Narrative: The following orders were created for panel order Complete Blood Count (CBC) WITH Diff. Procedure Abnormality Status --------- ------ CBC with Auto Differential[[id number]] Final result Please view results for these tests on the individual orders. UR TEST QUAL EXTRA TUBES Narrative: The following orders were created for panel order Extra Tubes. Procedure Abnormality Status --------- ------ Blue Top Tube[[id number]] Final result Gold Top Tube[[id number]] Final result Please view results for these tests on the individual orders. CBC WITH AUTO DIFFERENTIAL BLUE TOP TUBE GOLD TOP TUBE Medical Decision Making Differential diagnosis: Vertigo, lightheadedness, heart disease, dehydration Amount and/or Complexity of Data Reviewed Labs: ordered. Decision-making details documented in ED Course. Radiology: ordered. Decision-making details documented in ED Course. ECG/medicine tests: ordered. Decision-making details documented in ED Course. ECG Report Name: Cait Mathews Age: 27 y.o. Gender: female Time:1726 Rate: 69 Rhythm: Sinus Other Findings: Normal axis, no ST elevation Clinical Impression 1. Vertigo Disposition: Discharged Patient presents emergency room with sensation of movement which sounds mostly related to vertigo. She was given 50 mg of meclizine in the ER along with some fluids and she states she was feeling much better. Labs which included troponin, test being negative, negative UA, negative CMP, and a negative CBC were done and discussed with the patient. I did a CT of the head because of the persistent symptoms and this was negative also. I will give the patient a prescription for the meclizine that she can continue to use as needed. I recommend she follow up with regular doctor for recheck who may need to refer the patient for vestibular training. She was discharged in good condition. * Georgette Grady RN - 12/28/2022 6:15 PM CDT Patient provided urine sample for UA at this time. Denies any further needs. Call light within reach. * Sarah Marc RN - 12/28/2022 5:36 PM CDT Pt arrives to triage complaining of dizziness that has been going on for a month. Pt reports that today her dizziness has gotten worse. At first pt thought her dizziness was from stopping caffeine and smoking, but everything in room spins especially with change of position. documented in this encounter Plan of Treatment Not on file documented as of this encounter Procedures Procedure Name Priority Date/Time Associated Diagnosis Comments TROPONIN I, HIGH SENSITIVITY (HSTRP) STAT 12/28/2022 7:[address] HEAD OR BRAIN WO CONTRAST Stat with Interpretation 12/28/2022 7:45 PM CDT EXTRA TUBES STAT 12/28/2022 6:28 PM CDT GOLD TOP TUBE STAT 12/28/2022 6:28 PM CDT BLUE TOP TUBE STAT 12/28/2022 6:28 PM CDT URINALYSIS REFLEX IF INDICATED BY ABNORMAL RESULTS STAT 12/28/2022 6:19 PM CDT UR TEST QUAL STAT 12/28/2022 6:19 PM CDT CBC WITH AUTO DIFFERENTIAL STAT 12/28/2022 5:33 PM CDT CMP (COMPREHENSIVE METABOLIC PANEL) STAT 12/28/2022 5:33 PM CDT COMPLETE BLOOD COUNT (CBC) WITH DIFF STAT 12/28/2022 5:33 PM CDT EKG 12 LEAD STAT 12/28/2022 5:27 PM CDT documented in this encounter Results * TROPONIN I, HIGH SENSITIVITY (HSTRP) (12/28/2022 7:58 PM CDT) TROPONIN I, HIGH SENSITIVITY- JAIN <3 <=14 ng/L 12/28/2022 8:36 PM CDT [facility] Comment: High-sensitivity troponin I results are reported in ng/L making the result appear to be 1,000 times higher than the contemporary troponin I value which is reported in ng/ml. Results from Jain. Blood Venipuncture / Unknown 12/28/2022 7:58 PM CDT 12/28/2022 8:05 PM CDT us Yash Dalal MD CHEMISTRY ORDERABLES Alicja l Result [facility] [address] [place] [address] * CT HEAD OR BRAIN WO CONTRAST (12/28/2022 7:45 PM CDT) Anatomical Region Laterality Modality Head N/A Computed Tomogra phy 12/28/2022 8:12 PM CDT Impressions 12/28/2022 8:15 PM CDT IMPRESSION: No acute intracranial findings. ?? If clinical concern persists; recommend MRI for further evaluation. Narrative 12/28/2022 8:15 PM CDT EXAM DESCRIPTION: CT HEAD OR BRAIN WO CONTRAST REASON FOR STUDY: c/o dizziness x one month worsening today ? TECHNIQUE: Axial images acquired through the brain without intravenous contrast. ??Images stored on PACS. ?? Automated exposure control was used as a dose optimization technique for this examination. COMPARISON: None available. FINDINGS: BRAIN: ?? No hemorrhage, edema or mass effect. No recent infarct. ?? Small hypodensities involving the right basal ganglia which may represent prominent perivascular spaces. ?? Normal white matter. ? EXTRA-AXIAL SPACES: ?? No fluid collections. No masses. CALVARIUM: ?? No fracture. SINUSES/MASTOIDS: ?? No fluid or mucosal thickening. ORBITS: ?? No significant abnormality. OTHER: ?? No other significant abnormality. THIS IS AN ELECTRONICALLY VERIFIED FINAL REPORT 12/28/2022 8:12 PM - Electronically signed by ??Brendan Underwood M.D. MF: KELLI D: ??12/28/2022 8:11 PM T: ??12/28/2022 8:12 PM Report ID: [id number] Reading Location: ??[id number] Procedure Note Brendan Underwood, DO - 12/28/2022 EXAM DESCRIPTION: CT HEAD OR BRAIN WO CONTRAST REASON FOR STUDY: c/o dizziness x one month worsening today TECHNIQUE: Axial images acquired through the brain without intravenous contrast. Images stored on PACS. Automated exposure control was used as a dose optimization technique for this examination. COMPARISON: None available. FINDINGS: BRAIN: No hemorrhage, edema or mass effect. No recent infarct. Small hypodensities involving the right basal ganglia which may represent prominent perivascular spaces. Normal white matter. EXTRA-AXIAL SPACES: No fluid collections. No masses. CALVARIUM: No fracture. SINUSES/MASTOIDS: No fluid or mucosal thickening. ORBITS: No significant abnormality. OTHER: No other significant abnormality. THIS IS AN ELECTRONICALLY VERIFIED FINAL REPORT 12/28/2022 8:12 PM - Electronically signed by Brendan PEREIRA: KELLI Report ID: [id number] Reading Location: [id number] IMPRESSION: No acute intracranial findings. If clinical concern persists; recommend MRI for further evaluation. us Yash Dalal MD IMG CT ORDERABLES Final R esult * Gold Top Tube (12/28/2022 6:28 PM CDT) Blood No Phlebotomy Charged / Unknown 12/28/2022 6:28 PM CDT 12/28/2022 6:28 PM CDT Yash Dalal MD CHEMISTRY ORDERABLES Alicja l Result Performing Organization Address [facility] Co de Phone Number [facility] [address] [place] [address] * Blue Top Tube (12/28/2022 6:28 PM CDT) Blood No Phlebotomy Charged / Unknown 12/28/2022 6:28 PM CDT 12/28/2022 6:28 PM CDT Yash Dalal MD HEMATOLOGY ORDERABLES Fin al Result Performing Organization Address [facility] de Phone Number [facility] [address] [place] [address] * Ur Test Qual (12/28/2022 6:19 PM CDT) PREG TEST,MONOCLONA L Negative 12/28/2022 6:40 PM CDT [facility] Urine Non-Phlebotomy Collection / Unknown 12/28/2022 6:19 PM CDT 12/28/2022 6:24 PM CDT Yash Dalal MD URINE ORDERABLES Final Re sult Performing Organization Address [facility] de Phone Number [facility] [address] [place] [address] * (ABNORMAL) URINALYSIS REFLEX IF INDICATED BY ABNORMAL RESULTS (12/28/2022 6:19 PM CDT) SPECIFIC GRAVITY 1.010 1.003 - 1.030 12/28/2022 6:39 PM CDT [facility] URINE PH 6.5 5.0 - 9.0 12/28/2022 6:39 PM CDT [facility] WBC ESTERASE Negative Negative 12/28/2022 6:39 PM CDT [facility] NITRITE Negative Negative 12/28/2022 6:39 PM CDT [facility] PROTEIN, RANDOM URINE 15 mg/dL(A) Negative 12/28/2022 6:39 PM CDT [facility] URINE GLUCOSE, QUAL Negative Negative 12/28/2022 6:39 PM CDT [facility] URINE KETONES Negative Negative 12/28/2022 6:39 PM CDT [facility] UROBILINOGEN Normal Normal mg/dL 12/28/2022 6:39 PM CDT [facility] URINE BLOOD Negative Negative brandon/ul 12/28/2022 6:39 PM CDT [facility] URINALYSIS COLOR Yellow 12/29/19 6:39 PM CDT [facility] URINALYSIS CLARITY Clear 12/28/2022 6:39 PM CDT [facility] Urine URINE SPECIMEN / Unknown Non-Phlebotomy Collection / Unknown 12/28/2022 6:19 PM CDT 12/28/2022 6:24 PM CDT Lexa Linton MD URINE ORDERABLES Final Result Performing Organization Address [facility]/State/ZIP Co de Phone Number [facility] [address] [place] [address] * CBC with Auto Differential (12/28/2022 5:33 PM CDT) WBC 7.95 4.00 - 12.00 10(3)/mcL 12/28/2022 6:34 PM CDT [facility] RBC 4.65 3.80 - 5.30 10(6)/mcL 12/28/2022 6:34 PM CDT [facility] HEMOGLOBIN (HGB) 13.8 12.0 - 15.8 g/dL 12/28/2022 6:34 PM CDT [facility] HEMATOCRIT (HCT) 42.8 36.0 - 47.0 % 12/28/2022 6:34 PM CDT [facility] MCV 92.0 82.0 - 96.0 fL 12/28/2022 6:34 PM CDT [facility] MCH 29.7 26.0 - 34.0 pg 12/28/2022 6:34 PM CDT [facility] MCHC 32.2 31.0 - 36.0 g/dL 12/28/2022 6:34 PM CDT [facility] PLATELET COUNT 310 140 - 440 10(3)/mcL 12/28/2022 6:34 PM CDT [facility] RDW 11.8 11.8 - 15.5 % 12/28/2022 6:34 PM CDT [facility] MPV 10.5 9.7 - 12.4 fL 12/28/2022 6:34 PM CDT [facility] NEUTROPHILS 63.4 47.0 - 73.0 % 12/28/2022 6:34 PM CDT [facility] LYMPHOCYTES 29.3 18.0 - 42.0 % 12/28/2022 6:34 PM CDT [facility] MONOCYTES 5.5 4.0 - 12.0 % 12/28/2022 6:34 PM CDT [facility] EOSINOPHILS 1.0 0.0 - 5.0 % 12/28/2022 6:34 PM CDT [facility] BASOPHILS 0.8 0.0 - 1.0 % 12/28/2022 6:34 PM CDT [facility] ABSOLUTE NEUTROPHILS 5.04 1.60 - 7.70 10(3)/mcL 12/28/2022 6:34 PM CDT [facility] ABSOLUTE LYMPHOCYTES 2.33 1.30 - 3.20 10(3)/mcL 12/28/2022 6:34 PM CDT [facility] ABSOLUTE MONOCYTES 0.44 0.20 - 1.00 10(3)/mcL 12/28/2022 6:34 PM CDT [facility] ABSOLUTE EOSINOPHIL 0.08 0.00 - 0.40 10(3)/mcL 12/28/2022 6:34 PM CDT [facility] ABSOLUTE BASOPHILS 0.06 0.00 - 0.10 10(3)/mcL 12/28/2022 6:34 PM CDT [facility] NRBC PER 100 WBC 0 12/29/19 6:34 PM CDT [facility] Blood Venipuncture / Unknown 12/28/2022 5:33 PM CDT 12/28/2022 6:25 PM CDT Lexa Linton MD HEMATOLOGY ORDERABLES Final Result [facility] [address] [place] [address] * (ABNORMAL) CMP (Comprehensive Metabolic Panel) (12/28/2022 5:33 PM CDT) SODIUM 140 136 - 145 mmol/L 12/28/2022 6:54 PM CDT [facility] POTASSIUM 3.8 3.5 - 5.1 mmol/L 12/28/2022 6:54 PM CDT [facility] CHLORIDE 103 98 - 107 mmol/L 12/28/2022 6:54 PM CDT [facility] CO2, VENOUS 25 22 - 30 mmol/L 12/28/2022 6:54 PM CDT [facility] ANION GAP 15.8 <18.0 mmol/L 12/28/2022 6:54 PM CDT [facility] GLUCOSE 103(H) 70 - 99 mg/dL 12/28/2022 6:54 PM CDT [facility] BUN 8 5 - 18 mg/dL 12/28/2022 6:54 PM CDT [facility] CREATININE, BLOOD 0.69 0.60 - 1.00 mg/dL 12/28/2022 6:54 PM CDT [facility] BUN/CREATININE RATIO 12 12 - 20 ratio 12/28/2022 6:54 PM CDT [facility] TOTAL PROTEIN 7.6 6.3 - 8.2 g/dL 12/28/2022 6:54 PM CDT [facility] ALBUMIN 4.7 3.5 - 5.0 g/dL 12/28/2022 6:54 PM CDT [facility] A/G RATIO 1.6 1.0 - 2.2 12/28/2022 6:54 PM CDT [facility] CALCIUM 10.2 8.7 - 10.5 mg/dL 12/28/2022 6:54 PM CDT [facility] T BILI 0.7 0.2 - 1.2 mg/dL 12/28/2022 6:54 PM CDT [facility] SGOT (AST) 26 5 - 34 U/L 12/28/2022 6:54 PM CDT [facility] SGPT (ALT) 57(H) 0 - 55 U/L 12/28/2022 6:54 PM CDT [facility] ALKALINE PHOSPHATASE 65 40 - 150 U/L 12/28/2022 6:54 PM CDT [facility] GFR, ESTIMATED >60 >=60 12/28/2022 6:54 PM CDT [facility] Comment: Creatinine Clearance is the preferred criteria for selecting drug dose adjustments in renally impaired patients. ??The GFR is provided as additional pertinent clinical information. GFR is reported in mL/min/1.73 sq m. Calculation based on the Chronic Kidney Disease Epidemiology Collaboration (CKD- EPI) equation refit without adjustment for race. GFR, EST. >60 >=60 023 6:54 PM CDT [facility] GFR, EST. NONAFRICAN >60 >=60 12/28/2022 6:54 PM CDT [facility] Blood Venipuncture / Unknown 12/28/2022 5:33 PM CDT 12/28/2022 6:25 PM CDT Lexa Linton MD CHEMISTRY ORDERABLES F inal Result Performing Organization Address [facility] Co de Phone Number [facility] [address] [place] [address] * EKG 12 LEAD (12/28/2022 5:27 PM CDT) Ventricular Rate 69 BPM EXTERNAL EKG Atrial Rate 69 BPM EXTERNAL EKG P-R Interval 182 ms EXTERNAL EKG QRS Duration 78 ms EXTERNAL EKG Q-T Duration 362 ms EXTERNAL EKG QTC CALCULATION 387 ms EXTERNAL EKG P [place] 12 degrees EXTERNAL EKG R Manzan[place] -3 degrees EXTERNAL EKG T [place] 7 degrees EXTERNAL EKG 12/28/2022 5:27 PM CDT Impressions EXTERNAL EKG - 12/31/2022 1:10 PM CDT Normal sinus rhythm Cannot rule out Anterior infarct , age undetermined Abnormal ECG When compared with ECG of 06-NOV-2022 08:32, No significant change was found Confirmed by Ryne Carroll ([id number]) on 12/31/2022 1:10:33 PM Narrative Procedure Note Ryne Hassan MD - 12/31/2022 IMPRESSION: Normal sinus rhythm Cannot rule out Anterior infarct , age undetermined Abnormal ECG When compared with ECG of 06-NOV-2022 08:32, No significant change was found Confirmed by Ryne Carroll ([id number]) on 12/31/2022 1:10:33 PM Lexa Linton MD IMG ECG ORDERABLES Fin al Result Performing Organization Address [facility] Co de Phone Number EXTERNAL EKG documented in this encounter Visit Diagnoses Diagnosis Vertigo- Primary Dizziness and giddiness documented in this encounter Administered Medications Inactive Administered Medications - up to 3 most recent administrations Medication Order MAR Action Action Date Dose Rate Site 0.9 % sodium chloride solution at 500 mL/hr, Intravenous, ONCE, 1 dose, On Wed12/28/22 at 2000 New Bag 12/28/2022 8:06 PM CDT 1,000 mL 500 mL/hr ketorolac (TORADOL) injection 30 mg 30 mg, Intravenous, ONCE, 1 dose, On Wed12/28/22 at 2200 Given 12/28/2022 9:20 PM CDT 30 mg meclizine (ANTIVERT) tablet 50 mg 50 mg, Oral, ONCE, 1 dose, On Wed12/28/22 at 1999 Given 12/28/2022 8:06 PM CDT 50 mg documented in this encounter Active and Recently Administered Medications Times are shown in CDT. Scheduled Medication Order 12/26/2022 12/27/2022 12/28/2022 0.9 % sodium chloride solution (COMPLETED) at 500 mL/hr, Intravenous, ONCE, 1 dose, On Wed12/28/22 at 1999 2005 (New Bag - Prov ider: Georgette Grady, FLEX) ketorolac (TORADOL) injection 30 mg (COMPLETED) 30 mg, Intravenous, ONCE, 1 dose, On Wed12/28/22 at 2200 2120 (Given - Provid er: Georgette Grady RN) meclizine (ANTIVERT) tablet 50 mg (COMPLETED) 50 mg, Oral, ONCE, 1 dose, On Wed12/28/22 at 1999 2005 (Given - Provid er: Georgette Grady RN) documented in this encounter Care Teams Court Advocate Relationship Specialty Start Date End Date Apolinar Crowley MD [address] [facility] [address] [place] [address] PCP - General Ambulatory Care Nurse 11/06/22 Brayan Nazario MD #[address] [facility] [address] [place] [address] Consulting Physician General Surgery 01/15/22 documented as of this encounter
--- OUTSIDE RECORDS SUMMARY | 2024-04-27 18:04 | XMS_ITS | Encounter Summary ---
Author Organization Where Was it Filmed Care Team Providers Care Satellite Installer Name Role Phone Provider, None Primary Care Provider Unavailabl e Encounter Details Date Type Department Care Team (Latest Contact Info) Description 08/13/2021 Travel Social History Tobacco Use Types Packs/Day [...] on filedocumented in this encounter Care Teams Satellite Installer Relationship Specialty Start Date End Date Provider, None [place] PCP - General 05/31/17 11/05/22 documented as of this encounter
--- OUTSIDE RECORDS SUMMARY | 2024-04-27 18:04 | XMS_ITS | Encounter Summary ---
Author Organization [facility] HealthCare Address [address] [place] [address] Phone Care Team Providers Care Putty And Caulking Supervisor Name Role Phone Provider, None Primary Care Provider Unavailabl e Reason for Visit * Auth/Cert Specialty Diagnoses / Procedures Referred By Alma truong Referred To Contact Diagnoses INTERNAL DERANGEMENT LEFT KNEE Procedures ARTHROSCOPY KNEE Referral ID Status Reason Start Date Expiration Date Visits Re quested Visits Authorized [id number] 1 1 Encounter Details Date Type Department Care Team (Late st Contact Info) Description 08/27/2021 7:40 AM CDT - 08/27/2021 9:10 AM CDT Surgery [facility] Periop [address] [place] [address] Giuseppe Cortez MD [address] [address] LEFT KNEE ARTHROSCOPY, MEDIAL MENISCECTOMY Surgery Details Date/Time Status Location OR Service Patient Class Case Class Case Type Trauma Case? 08/27/2021 7:40 AM Posted [facility] MAIN OR Orthopaedic [facility] Ambulatory Surgery Panel 1 Procedure LRB Anes Op Region Wound Class Comments LEFT KNEE ARTHROSCOPY, MEDIA L MENISCECTOMY Left General Knee Clean Surgeon Surgeon Role Service Panel Giuseppe Cortez MD Primary Orthopaedic 1 Special Needs 5'0 175#, not vaccinated, daily vapes with nicotine, hx hysterectomy documented in this encounter Social History Tobacco [...] suspected to have Coronavirus/COVID-19? No / Unsure 08/27/2021 5:25 AM CDT documented as of this encounter Last Filed Vital Signs Vital Sign Reading Time Taken Comments Blood Pressure 144/92 08/27/2021 9:08 AM CDT Pulse 107 08/27/2021 9:08 AM CDT Temperature 35.7 ??C (96.3 ??F) 08/27/2021 9:08 AM CD T Respiratory Rate 20 08/27/2021 9:08 AM CDT Oxygen Saturation 94% 08/27/2021 9:08 AM CDT Inhaled Oxygen Concentration - - Weight 83 kg (183 lb) 08/27/2021 5:49 AM CDT Height 152.4 cm (5') 08/27/2021 5:49 AM CDT Body Mass Index 35.74 08/27/2021 5:49 AM CDT documented in this encounter Discharge Instructions * Discharge Instructions* Radha Thomas RN - 08/27/2021 9:27 AM CDT GENERAL GUIDELINES FOR MINIMIZING NAUSEA: ?? Do not take pain medication on an empty stomach ?? Eat small portions of foods because they are easier to digest and move through your stomach muchfaster. ?? Be sure you are staying hydrated. Clear, cool beverages are recommended. Only take what you can tolerate. You might like trying clear soups, flavored gelatin, carbonated beverages, popsicles and ice cubes made of frozen drinks. ?? Avoid the smells of cooking food, especially greasy ones, as the smells make make you nauseated. * Attachments The following attachments cannot be sent through Care Everywhere. * Knee Arthroscopy Care After (Croatian) documented in this encounter Medications at Time of Discharge HYDROcodone-acet aminophen (NORCO) 5-325 MG TabletIndication s:Complex tear of medial meniscus of left knee as current injury, initial encounter Take 1 Tablet by mouth every 6 hours as needed for Moderate or more severe pain. 15 Tablet 08/27/2021 01/15/2022 ibuprofen (MOTRIN) 800 MG Tablet Take 1 Tablet by mouth every 8 hours. 20 Tablet 02/16/2021 01/30/2022 documented as of this encounter H&P Notes * Giuseppe Cortez MD - 08/27/2021 7:56 AM CDT I have reviewed Cait Mathews History and Physical, re-examined her, and no change has occurredin her condition since the H&P was completed. I have explained the risks, benefits, and alternatives of the procedure to the patient and family. They wish to proceed with procedure. Giuseppe Cortez MD 08/27/2021 7:56 AM CDT * Giuseppe Cortez MD - 08/21/2021 2:13 PM CDT HISTORY AND PHYSICAL REPORT Admit: 08/27/2021 CSN: [id number] Dictating Provider: [id number] Giuseppe Cortez MD Ms. Mathews will be at [facility] for day surgery 08/27/2021 to undergo left knee arthroscopy. HISTORY OF PRESENT ILLNESS: Ms. Mathews is a 25-year-old female patient of Dr. Crowley, who has been under my care since 07/28/2021 with internal derangement of the left knee. The patient has failed to respond to conservative measures and has indication for left knee arthroscopy based upon clinical and MRI findings. The risks, benefits and potential complications have been discussed with the patient and the patient is in agreement with the proposed plan. PAST MEDICAL HISTORY: Medical: Hypertension. Surgical: Remote tonsillectomy/hysterectomy/ section. MEDICATIONS: Diflucan. ALLERGIES: None known. HABITS: Nonsmoker, nondrinker. FAMILY HISTORY: Noncontributory for anesthetic-related problems. SOCIAL HISTORY: The patient is single. REVIEW OF SYSTEMS: COAL MINER: Denies dizziness or loss of consciousness. Chest: Denies shortness of breath or chronic cough. Cardiovascular: No current chest pain or palpitations. GI: No abdominal pain, constipation or diarrhea. : No urinary urgency or frequency. Musculoskeletal: See HPI PHYSICAL EXAMINATION: GENERAL APPEARANCE: Ms. Mathews is a healthy-appearing 25-year-old in no distress. VITAL SIGNS: Blood pressure 128/82, respirations 16, pulse 64, temperature afebrile. HEAD AND NECK: All cranial nerves grossly intact. PERRLA. EOMs normal. Normocephalic. Trachea midline. C-spine range of motion full. CHEST: Air entry good to all regions. No adventitial sounds heard. Chest expansion is symmetrical. CARDIOVASCULAR SYSTEM: Heart sounds normal. No S4, no murmurs heard. JVP at SA. All peripheral pulses 4+. No bruits auscultated. ABDOMEN: Soft and nontender. Bowel sounds are present. No masses are palpated. EXTREMITIES: Positive findings at this time are limited to the left knee, where there is no obvious deformity, but there is tenderness to the medial joint line to direct palpation with positive Abiodun's and Apley's grind tests. Iliana, pivot shift and drawer tests are negative. There is a mild antalgic gait. INVESTIGATIONS: X-rays are nondiagnostic. MRI scan confirms medial meniscal pathology. SUMMARY: This 25-year-old with internal derangement of the left knee has indication for left knee arthroscopy. The risks, benefits and potential complications have been discussed with the patient and the patient is in agreement with the proposed plan. PLAN: Day surgery, [facility], 08/27/2021. On admission, please obtain consent for left knee arthroscopy. MAT/na /[id number] CC: Benjamin Flanagan MD [[id number]] documented in this encounter Nursing Notes * Danay Pedroza RN - 08/27/2021 9:00 AM CDT WHO Safety Checklist Team Debriefing completed. Additional information discussed during debrief, inrelation to patient specific assessment, includes blood loss, glycemic control, pain management, and venous thromboembolism prophylaxis, as needed. All members of the surgical team participated in the debriefing process, and each records information as applicable in their respective areas of documen tation. Specimen Transported to [facility] ROOM by DANAY PEDROZA RN. documented in this encounter OR Notes * OR Surgeon - Giuseppe Cortez MD - 08/27/2021 11:50 AM CDT OPERATIVE REPORT Admit: 08/27/2021 CSN: [id number] Dictating Provider: [id number] Giuseppe Cortez MD DATE OF PROCEDURE: 08/27/2021 SURGEON: Giuseppe Cortez MD PROCEDURE: Left knee arthroscopic partial medial meniscectomy (bucket handle tear). OPERATIVE INDICATIONS: Ms. Mathews is a 25-year-old female patient of Dr. Apolinar Crowley who has been under my care since 07/28/2021 with internal derangement of the left knee. The patient has failed to respond to conservative measures and has indication at this time for left knee arthroscopic evaluation with further treatment predicated upon findings. The risks, benefits and potential complications have been discussed with the patient and the patient is in agreement with the proposed plan. OPERATIVE PROCEDURE: Following administration of general anesthesia in the supine position, the patient's left lower extremity was prepped and draped in the usual fashion following placement in a leg brennan. The knee was insufflated with 60 mL of normal saline and an anterolateral arthroscopic portal was chosen. Evaluation of the entire internal structure of the knee was undertaken with findings as follows: 1. Patellofemoral compartment: No surgical abnormality of the articular surfaces was identified. No loose bodies seen. There was mild synovitis. 1. Lateral compartment: The lateral gutter was normal. The lateral meniscus was normal as were the articular surfaces. 1. Intercondylar notch: The anterior cruciate ligament was well visualized and found to be within normal limits. No loose bodies were identified. 1. Medial compartment: The medial gutter demonstrated moderate synovitis. The articular surfaces demonstrated no surgical lesion. However, the medial meniscus demonstrated a horizontal cleavage and radial flap-type tear in the posterior horn. Following completion of the diagnostic portion of the procedure, arthroscopic medial meniscectomy was accomplished using a combination of manual basket forceps and a power suction shaver. Complete extirpation of the abnormal tissue was accomplished and a smooth contour was achieved. The knee was then well irrigated and all free fragments of meniscus were removed. The arthroscopic equipment was removed and sutures of 3-0 nylon were placed in the arthroscopic portals utilized. The knee was then injected with 20 mL of 0.25% Marcaine with epinephrine and 80 mg Depo-Medrol in order to achieve postoperative analgesic, hemostatic, and anti-inflammatory effect. Dressings were applied and an EZY-Wrap brace placed. There were no intraoperative complications. The patient tolerated the procedure well, was returned to the recovery room in satisfactory condition. PREOPERATIVE DIAGNOSIS: Internal derangement, left knee. POSTOPERATIVE DIAGNOSIS: Torn left medial meniscus. PROCEDURE: Left knee arthroscopic partial medial meniscectomy (bucket handle tear). SHELF DRIER OPERATOR: None. MAT/na /[id number] * OR Surgeon - Giuseppe Cortez MD - 08/27/2021 8:58 AM CDT BRIEF POST-OPERATIVE PROCEDURE NOTE (Full Note Pending) Date of Procedure: 08/27/2021 Surgeon(s): Surgeon(s) and Role: * Giuseppe Cortez MD - Primary Pre-operative Diagnosis: INTERNAL DERANGEMENT LEFT KNEE Post-operative Diagnosis: INTERNAL DERANGEMENT LEFT KNEE, BUCKET HANDLE TEAR OF MEDIAL MENISCUS Procedure(s): Procedure(s): LEFT KNEE ARTHROSCOPY, MEDIAL MENISCECTOMY Anesthesia: General Additional Procedure Details: Brief Findings: Estimated Blood Loss: * No values recorded between 08/27/2021 8:01 AM and 08/27/2021 8:58 AM * Specimens: ID Type Source Tests Collected by Time A : LEFT KNEE DEBRIDED BONE AND TISSUE Tissue Knee PATHOLOGY SURGICAL Giuseppe Cortez MD 08/27/2021 0841 Complications: * No complications entered in OR log * Total Operative Time: * Missing procedure start or end time(s) * Disposition: PACU - hemodynamically stable. Condition: stable Surgeon: Giuseppe Cortez MD, 08/27/2021, 8:58 AM CDT documented in this encounter Miscellaneous Notes * Interdisciplinary - Radha Thomas RN - 08/27/2021 11:34 AM CDT Pt. Ready for D/C. D/C instructions given, all questions answered. No complaints at this time. VSS.Pt. To be wheeled out by RN. Pt. To be driven home by significant other. Daniel Thomas RN * Plan of Care - Vera Saenz RN - 08/27/2021 8:56 AM CDT Patient will be discharged from PACU when criteria has been met. * Plan of Care - Radha Thomas RN - 08/27/2021 8:01 AM CDT Problem: Adult Inpatient Plan of Care Goal: Plan of Care Review 08/27/2021 1008 by Radha Thomas, RN Outcome: Outcome Achieved Flowsheets Taken 08/27/2021 1008 Does the patient need assistance with discharge and/or transitioning to the next level of care?: No, no needs anticipated Taken 08/27/2021 0544 Progress: progress toward functional goals as expected Plan of Care Reviewed With: patient Today's Goal: pain control 08/27/2021543 by Radha Thomas RN Outcome: Ongoing (see interventions/notes) Flowsheets (Taken 08/27/2021543) Progress: progress toward functional goals as expected Plan of Care Reviewed With: patient Today's Goal: pain control Does the patient need assistance with discharge and/or transitioning to the next level of care?: No, no needs anticipated Goal: Absence of Hospital-Acquired Illness or Injury 08/27/2021 100 by Radha Thomas RN Outcome: Outcome Achieved 08/27/2021543 by Radha Thomas RN Outcome: Ongoing (see interventions/notes) Intervention: Prevent and Manage VTE (Venous Thromboembolism) Risk 08/27/2021 100 by Radha Thomas RN Flowsheets (Taken 08/27/2021543) VTE Prevention/Management: ambulation encouraged 08/27/2021543 by Radha Thomas RN Flowsheets (Taken 08/27/2021543) VTE Prevention/Management: ambulation encouraged Goal: Optimal Comfort and Wellbeing 08/27/20211007 by Radha Thomas RN Outcome: Outcome Achieved 08/27/2021543 by Radha Thomas RN Outcome: Ongoing (see interventions/notes) Intervention: Provide Person-Centered Care 08/27/20211007 by Radha Thomas RN Flowsheets (Taken 08/27/2021543) Trust Relationship/Rapport: care explained choices provided 08/27/2021543 by Radha Thomas RN Flowsheets (Taken 08/27/2021543) Trust Relationship/Rapport: care explained choices provided Goal: Readiness for Transition of Care 08/27/2021 100 by Radha Thomas RN Outcome: Outcome Achieved 08/27/2021543 by Radha Thomas RN Outcome: Ongoing (see interventions/notes) * Plan of Care - Radha Thomas RN - 08/27/2021 5:44 AM CDT Problem: Adult Inpatient Plan of Care Goal: Plan of Care Review Outcome: Ongoing (see interventions/notes) Flowsheets (Taken 08/27/2021 0544) Progress: progress toward functional goals as expected Plan of Care Reviewed With: patient Today's Goal: pain control Does the patient need assistance with discharge and/or transitioning to the next level of care?: No, no needs anticipated Goal: Absence of Hospital-Acquired Illness or Injury Outcome: Ongoing (see interventions/notes) Intervention: Prevent and Manage VTE (Venous Thromboembolism) Risk Flowsheets (Taken 08/27/2021 0544) VTE Prevention/Management: ambulation encouraged Goal: Optimal Comfort and Wellbeing Outcome: Ongoing (see interventions/notes) Intervention: Provide Person-Centered Care Flowsheets (Taken 08/27/2021 05) Trust Relationship/Rapport: care explained choices provided Goal: Readiness for Transition of Care Outcome: Ongoing (see interventions/notes) * Malika Vidal RN - 08/13/2021 9:34 AM CDT Per phone conversation with patient, she stated that she has not received any COVID vaccination. COVID testing instructions given. * Malika Vidal RN - 08/13/2021 9:33 AM CDT [facility] TEACH[facility] Patient Name: Cait Mathews : 1995 CSN#: [id number] Person Educated Patient Ready to Learn Yes Teaching Method Phone Have required COVID test on a.m. of 08/25/21 at [facility], then protect from infection afterwards until your surgery. The Day of Surgery: Call your physician [...] be allowed to accompany you to the [facility]. No children under theage of 16 will be allowed in the [facility] unless they are the patient. If [...] Patient Response: Verbalizes Understanding Patient assessed for nursing agency manager during the preop interview and appropriate interventions taken if applicable. documented in this encounter Plan of Treatment Not on file documented as of this encounter Procedures Procedure Name Priority Date/Time Associated Diagnosis Comments PATHOLOGY SURGICAL Routine 08/27/2021 8: 41 AM CDT ARTHROSCOPY KNEE 08/27/2021 7:41 AM CDT INTERNAL DERANGEMENT LEFT KNEE, BUCKET HANDLE TEAR OF MEDIAL MENISCUS Special Needs 5'0 175#, not vaccinated, daily vapes with nicotine, hx hysterectomy documented in this encounter Results * Pathology Surgical (08/27/2021 8:41 AM CDT) Case Report Surgical Pathology Report ? Case: [id number] ? Authorizing Provider: ??Giuseppe Cortez MD ?Collected: ? 08/27/2021 08:41 AM ? Ordering Location: ? [facility] ? Received: ?08/27/2021 12:33 PM ? [facility] ? Main OR ? Pathologist: ? Milo Cummings MD ? Specimen: ?Knee, LEFT KNEE DEBRIDED BONE AND TISSUE ? 08/28/2021 8:45 AM [facility] FINAL DIAGNOSIS BONE AND TISSUE, LEFT KNEE, EXCISION: - FRAGMENTS OF ARTICULAR CARTILAGE, AND SYNOVIUM. - NEGATIVE FOR SIGNIFICANT ACUTE INFLAMMATION OR CRYSTALLINE MATERIAL. 08/28/2021 8:45 AM [facility] Pre-Operative Diagnosis INTERNAL DERANGEMENT LEFT KNEE 08/28/2021 8:45 AM [facility] Gross Description A. LEFT KNEE DEBRIDED BONE AND TISSUE The specimen presents in a single formalin container for gross and microscopic examination, labeled with the patient's name, Cait Mathews, and designated left knee debrided one and tissue. The specimen consists of a single tissue collection bag together with 1 gram of pale white-carmona, soft tissue fragments. Trim Setter Helper sample submitted inc cassette A1. KS/sb 08/28/2021 8:45 AM [facility] Microscopic Description Microscopic examination was performed which supports the final diagnosis. All control tissues stained appropriately. 08/28/2021 8:45 AM CDT [facility] Tissue KNEE JOINT SYNOVIAL FLUID / Unknown 08/27/2021 8:41 AM CDT 08/27/2021 12:33 PM CDT us Giuseppe Cortez MD PATHOLOGY/CYTOLOGY ORDERAB LES Final Result [facility] [place] [address] documented in this encounter Visit Diagnoses Not on filedocumented in this encounter Administered Medications Inactive Administered Medications - up to 3 most recent administrations Medication Order MAR Action Action Date Dose Rate Site acetaminophen (TYLENOL) tablet 975 mg 975 mg, Oral, ONCE, 1 dose, On Wed08/27/21 at 0600, Maximum dose of acetaminophen is 4000 mg from all sources in 24 hours., PRE-OP (SURGERY) Given 08/27/2021 5:52 AM CDT 975 mg ACETAMINOPHEN 325 MG PO TABS 1 dose, Starting on Wed08/27/21 at 0540, Until Wed08/27/21 at 0552, Created by cabinet override bupivacaine (PF) (MARCAINE PF) 0.5 % injection ONCE (in OR), Starting on Wed08/27/21 at 0851, Until Wed08/27/21 at 0907, INTRA-OP Given 08/27/2021 8:51 AM CDT 20 mL Operative Site celecoxib (CeleBREX) capsule 200 mg 200 mg, Oral, ONCE, 1 dose, On Wed08/27/21 at 0600, PRE-OP (SURGERY) Given 08/27/2021 5:52 AM CDT 200 mg CELECOXIB 200 MG PO CAPS 1 dose, Starting on Wed08/27/21 at 0540, Until Wed08/27/21 at 0552, Created by cabinet override dexamethasone (DECADRON) injection 8 mg 8 mg, Intravenous, ONCE, 1 dose, On Wed08/27/21 at 0600, PRE-OP (SURGERY) Given 08/27/2021 5:53 AM CDT 8 mg DEXAMETHASONE SODIUM PHOSPHATE 4 MG/ML IJ SOLN 1 dose, Starting on Wed08/27/21 at 0541, Until Wed08/27/21 at 0553, Created by cabinet override diphenhydrAMINE (BENADRYL) injection 25 mg 25 mg, Intravenous, ONCE, 1 dose, On Wed08/27/21 at 1030, PACU (I & II) Given 08/27/2021 9:47 AM CDT 25 mg DIPHENHYDRAMINE HCL 50 MG/ML IJ SOLN 1 dose, Starting on Wed08/27/21 at 0947, Until Wed08/27/21 at 1354, Created by cabinet override HYDROcodone-acetaminophe n (NORCO) 5-325 MG per tablet 1 Tablet 1 Tablet, Oral, ONCE PRN, 1 dose, Starting on Wed08/27/21 at 0944, Until Wed08/27/21 at 1354, Moderate pain or more severe pain if patient requests, Maximum dose of acetaminophen is 4000 mg from all sources in 24 hours.If pain not effectively managed, then contact provider to discuss possibly 1) adding scheduled opioid dosing or non-opioid pain treatments, 2) increasing dosage, or 3) changing to HIGH SCHOOL ADMISSIONS REPRESENTATIVE., PACU (I & II) HYDROMORPHONE HCL 2 MG/ML IJ SOLN 1 dose, Starting on Wed08/27/21 at 0733, Until Wed08/27/21 at 1354, Created by cabinet override KETAMINE HCL 30 MG/3ML IJ SOSY 1 dose, Starting on Wed08/27/21 at 0733, Until Wed08/27/21 at 1354, Created by cabinet override lactated ringers infusion at 50 mL/hr, Intravenous, CONTINUOUS, Starting on Wed08/27/21 at 0600, Until Wed08/27/21 at 1354, PRE-OP (SURGERY) New Bag 08/27/2021 5:52 AM CDT 50 mL/hr 50 mL/hr methylPREDNISolone acetate (DEPO-MEDROL) injection ONCE (in OR), Starting on Wed08/27/21 at 0851, Until Wed08/27/21 at 0907, INTRA-OP Given 08/27/2021 8:51 AM CDT 80 mg Operative Site ondansetron (ZOFRAN) injection 4 mg 4 mg, Intravenous, ONCE, 1 dose, On Wed08/27/21 at 0600, PRE-OP (SURGERY) Given 08/27/2021 5:53 AM CDT 4 mg ondansetron (ZOFRAN) injection 4 mg 4 mg, Intravenous, ONCE PRN, 1 dose, Starting on Wed08/27/21 at 0822, Until Wed08/27/21 at 1354, Nausea - 1st line, First Line Antiemetic, PACU (I & II) ONDANSETRON HCL 4 MG/2ML IJ SOLN 1 dose, Starting on Wed08/27/21 at 0541, Until Wed08/27/21 at 0553, Created by cabinet override documented in this encounter Active and Recently Administered Medications Times are shown in CDT. Scheduled Medication Order 08/25/2021 08/26/2021 08/27/2021 acetaminophen (TYLENOL) tablet 975 mg (COMPLETED) 975 mg, Oral, ONCE, 1 dose, On Wed08/27/21 at 0600, Maximum dose of acetaminophen is 4000 mg from all sources in 24 hours., PRE-OP (SURGERY) 05 (Given - Provid er: Radha Thomas RN) ceFAZolin (ANCEF) injection 2 g (COMPLETED) 2 g, Intravenous, ONCE, 1 dose, On Wed08/27/21 at 0600, Administer over 5 Minutes, If allergic to Ancef give Vancomycin 1gm IV, INTRA-OP, Indications: Perioperative Pharmacoprophylaxis 0811 (Given - Provid er: Tani Britt, CELLOPHANER, SHOPPING CENTRE MANAGER) celecoxib (CeleBREX) capsule 200 mg (COMPLETED) 200 mg, Oral, ONCE, 1 dose, On Wed08/27/21 at 0600, PRE-OP (SURGERY) 0552 (Given - Provid er: Radha Thomas RN) dexamethasone (DECADRON) injection 8 mg (COMPLETED) 8 mg, Intravenous, ONCE, 1 dose, On Wed08/27/21 at 0600, PRE-OP (SURGERY) 0553 (Given - Provid er: Radha Thomas RN) diphenhydrAMINE (BENADRYL) injection 25 mg (COMPLETED) 25 mg, Intravenous, ONCE, 1 dose, On Wed08/27/21 at 1030, PACU (I & II) 0947 (Given - Provid er: Vera Saenz RN) ondansetron (ZOFRAN) injection 4 mg (COMPLETED) 4 mg, Intravenous, ONCE, 1 dose, On Wed08/27/21 at 0600, PRE-OP (SURGERY) 0553 (Given - Provid er: Radha Thomas, FLEX) Continuous Medication Order 08/25/2021 08/26/2021 08/27/2021 lactated ringers infusion at 50 mL/hr, Intravenous, CONTINUOUS, Starting on Wed08/27/21 at 0600, Until Wed08/27/21 at 1354, PRE-OP (SURGERY) 0552 (New Bag - Prov ider: Radha Thomas, RN)0800 (Continued by Anesthesia - Provider: Tani Britt APRN, SHOPPING CENTRE MANAGER)0937 (Infusing on Transfer - Provider: Vera Saenz, FLEX)1100 (Stopped - Provider: Radha Thomas RN) PRN Medication Order 08/25/2021 08/26/2021 08/27/2021 bupivacaine (PF) (MARCAINE PF) 0.5 % injection (CANCELED) ONCE (in OR), Starting on Wed08/27/21 at 0851, Until Wed08/27/21 at 0907, INTRA-OP 0851 (Given - Provid er: Giuseppe Cortez MD) fentaNYL (PF) (SUBLIMAZE) injection 25 mcg 25 mcg, Intravenous, EVERY 10 MIN PRN, 4 doses, Starting on Wed08/27/21 at 0822, Until Wed08/27/21 at 1100, Moderate pain or more severe pain if patient requests, Severe pain, Every 5-15 minutes prn to maximum of 100 mcg., PACU (I & II) HYDROcodone-acetaminophen (NORCO) 5-325 MG per tablet 1 Tablet 1 Tablet, Oral, ONCE PRN, 1 dose, Starting on Wed08/27/21 at 0944, Until Wed08/27/21 at 1354, Moderate pain or more severe pain if patient requests, Maximum dose of acetaminophen is 4000 mg from all sources in 24 hours.If pain not effectively managed, then contact provider to discuss possibly 1) adding scheduled opioid dosing or non-opioid pain treatments, 2) increasing dosage, or 3) changing to HIGH SCHOOL ADMISSIONS REPRESENTATIVE., PACU (I & II) methylPREDNISolone acetate (DEPO-MEDROL) injection (CANCELED) ONCE (in OR), Starting on Wed08/27/21 at 0851, Until Wed08/27/21 at 0907, INTRA-OP 0851 (Given - Provid er: Giuseppe Cortez MD) ondansetron (ZOFRAN) injection 4 mg 4 mg, Intravenous, ONCE PRN, 1 dose, Starting on Wed08/27/21 at 0822, Until Wed08/27/21 at 1354, Nausea - 1st line, First Line Antiemetic, PACU (I & II) No Frequency Medication Order 08/25/2021 08/26/2021 08/27/2021 DIPHENHYDRAMINE HCL 50 MG/ML IJ SOLN 1 dose, Starting on Wed08/27/21 at 0947, Until Wed08/27/21 at 1354, Created by cabinet override HYDROMORPHONE HCL 2 MG/ML IJ SOLN 1 dose, Starting on Wed08/27/21 at 0733, Until Wed08/27/21 at 1354, Created by cabinet override KETAMINE HCL 30 MG/3ML IJ SOSY 1 dose, Starting on Wed08/27/21 at 0733, Until Wed08/27/21 at 1354, Created by cabinet override documented in this encounter Care Teams Putty And Caulking Supervisor Relationship Specialty Start Date End Date Provider, None [place] PCP - General 05/31/17 11/05/22 documented as of this encounter
--- OUTSIDE RECORDS SUMMARY | 2024-04-27 18:04 | XMS_ITS | Encounter Summary ---
Author Organization [employer] Care Team Providers Care Senior Linux Administrator Name Role Phone Provider, None Primary Care Provider Brayan Barrett MD Unavailable Encounter Details Date Type Department Care Team (Latest Contact Info) Description 01/20/2022 Travel Social History Tobacco Use Types Packs/Day [...] suspected to have Coronavirus/COVID-19? No / Unsure 01/20/2022 1:48 PM CDT documented as of this encounter Plan of Treatment Not on file documented as of this encounter Visit Diagnoses Not on filedocumented in this encounter Care Teams Senior Linux Administrator Relationship Specialty Start Date End Date Provider, None NIKA PCP - General 05/31/17 11/05/22 Brayan Nazario MD #[address] [phone] Consulting Physician General Surgery 01/15/22 documented as of this encounter
--- OUTSIDE RECORDS SUMMARY | 2024-04-27 18:04 | XMS_ITS | Encounter Summary ---
Author Organization [facility] Address [address] [place] [address] Phone Care Team Providers Care Vp Clinical Research Name Role Phone Provider, None Primary Care Provider Brayan Barrett MD Unavailable Reason for Visit * Reason Comments Leg Pain Encounter Details Date Type Department Care Team (Late st Contact Info) Description 04/14/2022 9:31 AM STAVE JOINTER - 04/14/2022 11:31 AM STAVE JOINTER Emergency [facility] Emergency [address] [place] [id number] Viri Larry, WATCH ENGINEER, STICK INSERTER [address] [place] [address] Gastrocnemius strain, right, initial encounter Discharge Disposition: Discharged to home or Selfcare [...] suspected to have Coronavirus/COVID-19? No / Unsure 04/14/2022 9:28 AM STAVE JOINTER documented as of this encounter Last Filed Vital Signs Vital Sign Reading Time Taken Comments Blood Pressure 114/58 04/14/2022 9:28 AM STAVE JOINTER Pulse 65 04/14/2022 11:28 AM STAVE JOINTER Temperature 36.3 ??C (97.3 ??F) 04/14/2022 9:56 AM CS T Respiratory Rate 18 04/14/2022 11:28 AM STAVE JOINTER Oxygen Saturation 99% 04/14/2022 11:28 AM STAVE JOINTER Inhaled Oxygen Concentration - - Weight 79.4 kg (175 lb) 04/14/2022 9:28 AM STAVE JOINTER Height 154.9 cm (5' 1 ) 04/14/2022 9:28 AM STAVE JOINTER Body Mass Index 33.07 04/14/2022 9:28 AM STAVE JOINTER documented in this encounter Discharge Instructions * Discharge Instructions* Viri Larry APRN, CNP - 04/14/2022 11:04 AM STAVE JOINTER Please follow-up with primary care physician/orthopedist as soon as possible. Do not bear weight until follow-up. Keep knee immobilizer and use crutches until that time. Take medication as prescribedfor pain relief. E JOINTER * Attachments The following attachments cannot be sent through Care Everywhere. * Muscle Strain (Moroccan) documented in this encounter Medications at Time of Discharge HYDROcodone-acetamino phen (NORCO) 5-325 MG TabletIndications:Gas trocnemius strain, right, initial encounter Take 1 Tablet by mouth every 6 hours as needed for Mild or more severe pain. 12 Tablet 04/14/2022 HYDROcodone-acetamino phen (NORCO) 5-325 MG TabletIndications:S/P laparoscopic cholecystectomy Take 1 Tablet by mouth every 8 hours as needed for Moderate or more severe pain. 12 Tablet 01/30/2022 ibuprofen (MOTRIN) 800 MG Tablet Take 1 Tablet by mouth every 6 hours as needed for Mild or more severe pain. 30 Tablet 04/14/2022 ondansetron (Zofran) 4 MG TabletIndications:S/P laparoscopic cholecystectomy Take 1 Tablet by mouth every 8 hours as needed for Nausea - 1st line. 15 Tablet 02/11/2022 documented as of this encounter ED Notes * Michell Kearney RN - 04/14/2022 11:29 AM CST Patient discharged. Discharge instructions and patient educational material reviewed with patient; questions and concerns addressed; patient verbalizes understanding, using teach back. Patient was given 2 prescriptions. Patient was informed no drinking alcohol, driving or operating heavy machinery while taking narcotics or muscle relaxants. Patient taken out via wheelchair; no distress noted. E JOINTER * Michell Kearney RN - 04/14/2022 10:30 AM CST Pt resting in chair quietly; no distress noted. Call light in reach. E JOINTER * Vijaya Quintanilla RN - 04/14/2022 9:55 AM CST Pt medicated per provider orders. Pt educated on intended effects and side effects of medication and verbalized understanding, able to provide teach back of education. E JOINTER * Viri Larry APRN, STICK INSERTER - 04/14/2022 9:40 AM CSTAssociated Order(s): Splint Application Chief Complaint Patient presents with ??? Leg Pain Cait Mathews is a 26 y.o. female who presents to the ED c/o right posterior lower leg pain starting last night. Patient states that she was getting up from a high-top barstool while playing Bingo, and jumped up. Patient states that she had severe pain immediately after jumping in her right calf. She states that she is unable to bear weight on the leg at this time due to pain. Sensation is int act and she denies numbness. Pulses are present distal to the area. Past Medical History Positives No date: Depression No current facility-administered medications for this encounter. Current Outpatient Medications Medication Sig Dispense Refill ??? HYDROcodone-acetaminophen (NORCO) 5-325 MG Tablet Take 1 Tablet by mouth every 6 hours as needed for Mild or more severe pain. 12 Tablet 0 ??? HYDROcodone-acetaminophen (NORCO) 5-325 MG Tablet Take 1 Tablet by mouth every 8 hours as needed for Moderate or more severe pain. (Patient not taking: Reported on 02/11/2022) 12 Tablet 0 ??? ibuprofen (MOTRIN) 800 MG Tablet Take 1 Tablet by mouth every 6 hours as needed for Mild or more severe pain. 30 Tablet 0 ??? ondansetron (Zofran) 4 MG Tablet Take 1 Tablet by mouth every 8 hours as needed for Nausea - 1st line. 15 Tablet 0 No Known Allergies Past Medical History Positives Diagnosis Date ??? Depression Past Surgical History: Procedure Laterality Date ??? CHOLECYSTECTOMY, LAPAROSCOPIC N/A 01/30/2022 Procedure: LAPAROSCOPIC CHOLECYSTECTOMY WITH INTRAOPERATIVE CHOLAGIOGRAM WITH INDOCYANINE GREEN; Surgeon: Brayan Nazario MD; Location: [facility]; Service: General ??? SECTION 2013 ??? HYSTERECTOMY 2019 spared ovaries ??? KNEE ARTHROSCOPY Left 08/27/2021 Procedure: LEFT KNEE ARTHROSCOPY, MEDIAL MENISCECTOMY; Surgeon: Giuseppe Cortez MD; Location: [facility]; Service: Orthopaedic ??? TONSILLECTOMY Social History Socioeconomic History ??? Marital status: Single Spouse name: Not on file ??? Number of children: Not on file ??? Years of education: Not on file ??? Highest education level: Not on file Occupational History ??? Not on file Tobacco Use ??? Smoking status: Former Packs/day: 0.50 Years: 8.00 Pack years: 4.00 Types: Cigarettes Quit date: 2020 Years since quittin.9 ??? Smokeless tobacco: Never Vaping Use ??? Vaping Use: Every day ??? Substances: Nicotine Substance and Sexual Activity ??? Alcohol use: Yes Comment: occasionally ??? Drug use: No ??? Sexual activity: Yes Partners: Male control/protection: Surgical Other Topics Concern ??? Not on file Social History Narrative ??? Not on file BP 114/58 Pulse 65 Temp 97.3 ??F (36.3 ??C) (Tympanic) Resp 18 Ht 5' 1 (1.549 m) Wt 175 lb (79.4 kg) LMP (LMP Unknown) SpO2 99% BMI 33.07 kg/m?? Review of Systems Constitutional: Negative for chills and fever. HENT: Negative for congestion, ear pain, rhinorrhea and sore throat. Eyes: Negative for discharge. Respiratory: Negative for cough, chest tightness, shortness of breath and wheezing. Cardiovascular: Negative for chest pain and palpitations. Gastrointestinal: Negative for abdominal pain, diarrhea, nausea and vomiting. Genitourinary: Negative for difficulty urinating and menstrual problem. Musculoskeletal: Positive for myalgias (right posterior lower leg). Negative for arthralgias. Skin: Negative for rash and wound. Neurological: Negative for dizziness, syncope, weakness, numbness and headaches. All other systems reviewed and are negative. Physical Exam Vitals and nursing note reviewed. Constitutional: General: She is not in acute distress. Appearance: She is well-developed. She is not diaphoretic. HENT: Head: Normocephalic and atraumatic. Right Ear: External ear normal. Left Ear: External ear normal. Eyes: Conjunctiva/sclera: Conjunctivae normal. Pupils: Pupils are equal, round, and reactive to light. Neck: Trachea: No tracheal deviation. Cardiovascular: Rate and Rhythm: Normal rate and regular rhythm. Pulses: Normal pulses. Heart sounds: Normal heart sounds. No murmur [...] motion. Cervical back: Normal range of motion. Right lower leg: Tenderness present. Skin: General: Skin is warm and dry. Capillary Refill: Capillary refill takes less than 2 seconds. Neurological: Mental Status: She is alert and oriented to person, place, and time. Cranial Nerves: No cranial nerve deficit. Splint Application Performed by: Viri Larry APRN, CNP Authorized by: Viri Larry APRN, CNP Consent: Verbal consent obtained. Risks and benefits: risks, benefits and alternatives were discussed Consent given by: patient Imaging studies: imaging studies available Patient identity confirmed: verbally with patient and arm band Location details: right knee Splint type: Knee immobilizer. Supplies used: aluminum splint Post-procedure: The splinted body part was neurovascularly unchanged following the procedure. Patient tolerance: patient tolerated the procedure well with no immediate complications Imaging Results XR TIBIA & FIBULA RIGHT (Final result) Result time 04/14/22 10:49:49 Final result by Rory Hughes MD (04/14/22 10:49:49) Impression: IMPRESSION: No acute osseous abnormality. Narrative: EXAM DESCRIPTION: XR TIBIA and FIBULA RIGHT REASON FOR STUDY: injury while jumping; right lower leg pain- Pain in calf after jumping off barstool last night- pain worse with weght bearing since TECHNIQUE: Two views acquired of the right tibia and fibula. COMPARISON: None FINDINGS: BONES: No acute fracture. No suspicious bone lesions. No significant osteophytes. SOFT TISSUES: Unremarkable. OTHER: No other significant finding. THIS IS AN ELECTRONICALLY VERIFIED FINAL REPORT 04/14/2022 10:46 AM - Electronically signed by Jesús Hughes M.D. DEBBI: DEBBI Report ID: [id number] Reading Location: [place] [address] Labs Reviewed - No data to display Labs Reviewed - No data to display XR TIBIA & FIBULA RIGHT Final Result IMPRESSION: No acute osseous abnormality. MDM Number of Diagnoses or Management Options Amount and/or Complexity of Data Reviewed Tests in the radiology section of CPT??: ordered and reviewed Review and summarize past medical records: yes Reviewed: previous chart, nursing note and vitals Interpretation: x-ray Clinical Impression 1. Gastrocnemius strain, right, initial encounter X-ray is negative. There is concern for partial gastrocnemius tear. Patient states that she is already called her primary care physician and gotten an order for an MRI. She was instructed to have that done as soon as possible. She was advised to remain nonweightbearing on that leg until follow-up with primary care or orthopedist. She was provided than knee immobilizer and crutches to prevent further injury. Advised to rest, elevate, and apply ice. The patient remained stable throughout their ED stay. My clinical impression was discussed with thepatient/family. Labs and radiology results were reviewed with them. I gave them the opportunity to ask questions, and addressed them as completely as possible given the information available at present. The therapeutic plan was discussed, advised to take medications as instructed, instructions weregiven and the importance of primary care follow up was stressed and encouraged. The patient/family voiced understanding of the plan, indications to return, and the need for follow up. Cosigned by Jaime Bose MD at 04/14/2022 12:32 PM STAVE JOINTER E JOINTER E JOINTER E JOINTER * Vijaya Quintanilla RN - 04/14/2022 9:27 AM CST Patient to triage with c/o right calf pain starting last night. Patient reports getting up from a high-top barstool and feeling pain in her right calf. States she is unable to bear weight; presents with home crutches. E JOINTER documented in this encounter Plan of Treatment Not on file documented as of this encounter Procedures Procedure Name Priority Date/Time Associated Diagnosis Comments XR TIBIA & FIBULA RIGHT STAT 04/14/2022 10:19 AM STAVE JOINTER SPLINT APPLICATION Routine 04/14/2022 9: 40 AM STAVE JOINTER documented in this encounter Results * XR TIBIA & FIBULA RIGHT (04/14/2022 10:19 AM STAVE JOINTER) Anatomical Region Laterality Modality LOWER EXTREMITY, leg Right Digital Rad iography 04/14/2022 10:4 6 AM STAVE JOINTER Impressions 04/14/2022 10:49 AM STAVE JOINTER IMPRESSION: ?? No acute osseous abnormality. Narrative 04/14/2022 10:49 AM STAVE JOINTER EXAM DESCRIPTION: ?? XR TIBIA and FIBULA RIGHT REASON FOR STUDY: ?? injury while jumping; right lower leg pain- Pain in calf after jumping off barstool last night- pain worse with weght bearing since TECHNIQUE: ?? Two ??views acquired of the right tibia and fibula. COMPARISON: ?? None FINDINGS: BONES: ?? No acute fracture. No suspicious bone lesions. No significant osteophytes. SOFT TISSUES: ?? Unremarkable. OTHER: ?? No other significant finding. THIS IS AN ELECTRONICALLY VERIFIED FINAL REPORT 04/14/2022 10:46 AM - Electronically signed by ??Jesús WERNER: DEBBI D: ??04/14/2022 10:46 AM T: ??04/14/2022 10:46 AM Report ID: [id number] Reading Location: ??[id number] Procedure Note Rory Hughes MD - 04/14/2022 EXAM DESCRIPTION: XR TIBIA and FIBULA RIGHT REASON FOR STUDY: injury while jumping; right lower leg pain- Pain in calf after jumping off barstool last night- pain worse with weght bearing since TECHNIQUE: Two views acquired of the right tibia and fibula. COMPARISON: None FINDINGS: BONES: No acute fracture. No suspicious bone lesions. No significant osteophytes. SOFT TISSUES: Unremarkable. OTHER: No other significant finding. THIS IS AN ELECTRONICALLY VERIFIED FINAL REPORT 04/14/2022 10:46 AM - Electronically signed by Jesús WERNER: DEBBI Report ID: [id number] Reading Location: [id number] IMPRESSION: No acute osseous abnormality. us Viri Larry APRN, CNP IM DIAGNOSTIC ORDERA BLES Final Result * Splint Application (04/14/2022 9:40 AM STAVE JOINTER) Narrative Jaime Bose MD - 04/14/2022 9:40 AM STAVE JOINTER Viir Larry APRN, CNP ? 04/14/2022 12:07 PM Splint Application Performed by: Viri Larry APRN, CNP Authorized by: Viri Larry APRN, CNP Consent: Verbal consent obtained. Risks and benefits: risks, benefits and alternatives were discussed Consent given by: patient Imaging studies: imaging studies available Patient identity confirmed: verbally with patient and arm band Location details: right knee Splint type: Knee immobilizer. Supplies used: aluminum splint Post-procedure: The splinted body part was neurovascularly unchanged following the procedure. Patient tolerance: patient tolerated the procedure well with no immediate complications Viri Larry APRN, CNP PROCEDURE/MINOR SURGI MANAS ORDERABLES Final Result documented in this encounter Visit Diagnoses Diagnosis Gastrocnemius strain, right, initial encounter- Primary documented in this encounter Administered Medications Inactive Administered Medications - up to 3 most recent administrations Medication Order MAR Action Action Date Dose Rate Site HYDROcodone-acetaminophen (NORCO) 5-325 MG per tablet 1 Tablet 1 Tablet, Oral, ONCE, 1 dose, On Wed04/14/22 at 1030, Maximum dose of acetaminophen is 4000 mg from all sources in 24 hours.If pain not effectively managed, then contact provider to discuss possibly 1) adding scheduled opioid dosing or non-opioid pain treatments, 2) increasing dosage, or 3) changing to CAN DRAGGER. Given 04/14/2022 9:54 AM STAVE JOINTER 1 Tablet documented in this encounter Active and Recently Administered Medications Times are shown in STAVE JOINTER. Scheduled Medication Order 04/12/2022 04/13/2022 04/14/2022 HYDROcodone-acetaminophen (NORCO) 5-325 MG per tablet 1 Tablet (COMPLETED) 1 Tablet, Oral, ONCE, 1 dose, On Wed04/14/22 at 1030, Maximum dose of acetaminophen is 4000 mg from all sources in 24 hours.If pain not effectively managed, then contact provider to discuss possibly 1) adding scheduled opioid dosing or non-opioid pain treatments, 2) increasing dosage, or 3) changing to CAN DRAGGER. 0954 (Given - Provid er: Vijaya Quintanilla RN) documented in this encounter Care Teams Vp Clinical Research Relationship Specialty Start Date End Date Provider, None [place] PCP - General 05/31/17 11/05/22 Brayan Nazario MD [address] [phone] Consulting Physician General Surgery 01/15/22 documented as of this encounter
--- OUTSIDE RECORDS SUMMARY | 2024-04-27 18:04 | XMS_ITS | Encounter Summary ---
Author Organization [email or web address] Care Team Providers Care Daytime Caregiver Name Role Phone Provider, None Primary Care Provider Unavailabl e Encounter Details Date Type Department Care Team (Latest Contact Info) Description 08/27/2021 Travel Social History Tobacco Use Types Packs/Day [...] on filedocumented in this encounter Care Teams Daytime Caregiver Relationship Specialty Start Date End Date Provider, None [place] PCP - General 05/31/17 11/05/22 documented as of this encounter
--- OUTSIDE RECORDS SUMMARY | 2024-04-27 18:04 | XMS_ITS | Encounter Summary ---
Author Organization [employer] Care Team Providers Care Pipe Stem Repairer Name Role Phone Provider, None Primary Care Provider Unavailabl e Encounter Details Date Type Department Care Team (Latest Contact Info) Description 08/25/2021 Travel Social History Tobacco Use Types Packs/Day [...] suspected to have Coronavirus/COVID-19? No / Unsure 08/25/2021 6:25 AM CDT documented as of this encounter Plan of Treatment Not on file documented as of this encounter Visit Diagnoses Not on filedocumented in this encounter Care Teams Pipe Stem Repairer Relationship Specialty Start Date End Date Provider, None [place] PCP - General 05/31/17 11/05/22 documented as of this encounter
--- OUTSIDE RECORDS SUMMARY | 2024-04-27 18:04 | XMS_ITS | Encounter Summary ---
Author Organization [email or web address] Care Team Providers Care Travel Writer Name Role Phone Provider, None Primary Care Provider Brayan Barrett MD Unavailable Encounter Details Date Type Department Care Team (Latest Contact Info) Description 01/27/2022 Travel Social History Tobacco Use Types Packs/Day [...] suspected to have Coronavirus/COVID-19? No / Unsure 01/27/2022 12:08 PM CDT documented as of this encounter Plan of Treatment Not on file documented as of this encounter Visit Diagnoses Not on filedocumented in this encounter Care Teams Travel Writer Relationship Specialty Start Date End Date Provider, None NIKA PCP - General 05/31/17 11/05/22 Brayan Nazario MD #[address] [phone] Consulting Physician General Surgery 01/15/22 documented as of this encounter
--- OUTSIDE RECORDS SUMMARY | 2024-04-27 18:04 | XMS_ITS | Encounter Summary ---
Author Organization [facility] Address [address] [place] [address] Phone Care Team Providers Care Stage Rigger Name Role Phone Provider, None Primary Care Provider Unavailabl e Brayan Nazario MD Unavailable Apolinar Crowley MD Primary Care Provider [phone] Encounter Details Date Type Department Care Team (Late st Contact Info) Description 01/20/2022 [facility]cribe [facility] [address] [place] [address] Brayan Nazario MD [address] [phone] Pre-op testing (Primary Dx) Social History Tobacco [...] this encounter Results * SARS-COV-2 BY MOLECULAR (01/27/2022 12:14 PM CDT) SARSCOV2 NOT DETECTED (Referenc e Range for this test is Not Detected) [facility] ID NOW B 01/27/2022 1:14 PM CDT [facility] Comment:This test was perfor med by a MOLECULAR, NON-PCR method Other NASOPHARYNGEAL STRUCTURE / Unknown Non-Phlebotomy Collection / Unknown 01/27/2022 12:14 PM CDT 01/27/2022 12:19 PM CDT Narrative [facility] - 01/27/2022 1:14 PM CDT This test has been authorized by [...] information for Clinicians can be found at: https://www.fda.gov/media/451354/download Additional information for Patients can be found at: https://www.fda.gov/media/556831/download Brayan Nazario MD MICROBIOLOGY - GENERA L ORDERABLES Final Result [facility] [address] [place] [address] documented in this encounter Visit Diagnoses Diagnosis Pre-op testing- Primary Preoperative examination, unspecified documented in this encounter Care Teams Stage Rigger Relationship Specialty Start Date End Date Provider, None [place] PCP - General 05/31/17 11/05/22 Apolinar Crowley MD [address] [place] [address] PCP - General Diamond Grader 11/06/22 Brayan Nazario MD #[address] [phone] Consulting Physician General Surgery 01/15/22 documented as of this encounter
--- OUTSIDE RECORDS SUMMARY | 2024-04-27 18:04 | XMS_ITS | Encounter Summary ---
Author Organization [facility] Address [address] [place] [address] Phone Care Team Providers Care Film Sorter Name Role Phone Provider, None Primary Care Provider Unavailabl e Brayan Nazario MD Unavailable [phone] Reason for Visit * Reason Onset Date Comments Care Management 02/18/2022 Encounter Details Date Type Department Care Team (Late st Contact Info) Description 02/18/2022 Telephone [facility] - General Surgery - [place] #[address] [phone] Brayan Nazario MD #[address] [phone] Care Management Social History Tobacco Use Types Packs/Day Years [...] as of this encounter Miscellaneous Notes * Addendum Note - Lorena Siddiqi RN - 02/18/2022 3:04 PM CDTAddended by: LORENA SIDDIQI on: 02/18/2022 03:04 PM Modules accepted: Orders * Telephone Encounter - Lorena Siddiqi RN - 02/18/2022 3:01 PM CDT Verbal order received per Dr. Nazario for CBC and CMP. Orders placed as requested. Patient aware and verbalizes understanding. * Addendum Note - Lorena Siddiqi RN - 02/18/2022 1:58 PM CDTAddended by: LORENA SIDDIQI on: 02/18/2022 01:58 PM Modules accepted: Orders * Telephone Encounter - Lorena Siddiqi RN - 02/18/2022 1:57 PM CDT Images from the original note were not included. Brayan Nazario MD You 9 minutes ago (1:45 PM) Ok, order cbc and cmp Message text CBC and CMP pended to Dr. Nazario for approval, signature, diagnosis and review. * Telephone Encounter - Lorena Siddiqi RN - 02/18/2022 1:39 PM CDT Spoke to Cait. Cait was told that Dr. Nazario does not want to draw labs and if she is not well then she needs to go to the ER or primary. Cait states she does not have a primary doctor and would like to know if Dr. Nazario would order a CBC. She states the [facility] [place] in [place] told her she needed a CBC drawn because she has nausea with fever but could not order it. Routed to Dr. Nazario, please advise. * Telephone Encounter - Lorena Siddiqi RN - 02/18/2022 1:21 PM CDT Message routed to Dr. Nazario, please advise. * Telephone Encounter - Michaelle Figueroa CMA - 02/18/2022 12:51 PM CDT Patient called into the office stated she was told by Urgent Care that she may need blood work done. Patient states she does not have a PCP currently, and she does not have time to sit at an ER due to having children. I let patient know Angi MCCORD that she spoke to earlier today was currently in a meeting, and I would forward this message to be contacted. Routing to Angi MCCORD documented in this encounter Plan of Treatment Not on file documented as of this encounter Results * (ABNORMAL) CMP (COMPREHENSIVE METABOLIC PANEL) (02/18/2022 3:34 PM CDT) [facility] SODIUM 136 136 - 144 mmol/L 02/18/2022 5:03 PM CDT [facility] POTASSIUM 3.7 3.5 - 5.1 mmol/L 02/18/2022 5:03 PM CDT [facility] CHLORIDE 101 100 - 110 mmol/L 02/18/2022 5:03 PM CDT [facility] CO2, VENOUS 25 22 - 32 mmol/L 02/18/2022 5:03 PM CDT [facility] ANION GAP 13.7 8.0 - 20.0 mmol/L 02/18/2022 5:03 PM [facility] GLUCOSE 102(H) 70 - 99 mg/dL 02/18/2022 5:03 PM [facility] BUN 11 6 - 20 mg/dL 02/18/2022 5:03 PM [facility] CREATININE, BLOOD 0.56(L) 0.60 - 1.10 mg/dL 02/18/2022 5:03 PM [facility] BUN/CREATININE RATIO 20 12 - 20 ratio 02/18/2022 5:03 PM [facility] TOTAL PROTEIN 7.1 6.0 - 8.3 g/dL 02/18/2022 5:03 PM [facility] ALBUMIN 4.5 3.5 - 5.2 g/dL 02/18/2022 5:03 PM [facility] Comment: The colormetric methods used for the determination of Albumin may lead to falsely elevated test results in patients suffering from renal failure or insufficiency due to interference with other proteins. A/G RATIO 1.7 1.0 - 2.0 02/18/2022 5:03 PM [facility] CALCIUM 9.8 8.9 - 10.3 mg/dL 02/18/2022 5:03 PM [facility] T BILI 0.3 <=1.2 mg/dL 02/18/2022 5:03 PM [facility] SGOT (AST) 26 <=32 U/L 02/18/2022 5:03 PM [facility] SGPT (ALT) 64(H) <=41 U/L 02/18/2022 5:03 PM [facility] ALKALINE PHOSPHATASE 77 35 - 105 U/L 02/18/2022 5:03 PM [facility] IS THE PATIENT REQUIRED TO BE FASTING? No 02/18/2022 5:03 PM [facility] GFR, ESTIMATED >60 >=60 02/18/2022 5:03 PM CDT [facility] Comment: Creatinine Clearance is the preferred criteria for selecting drug dose adjustments in renally impaired patients. ??The GFR is provided as additional pertinent clinical information. GFR is reported in mL/min/1.73 sq m. Calculation based on the Chronic Kidney Disease Epidemiology Collaboration (CKD- EPI) equation refit without adjustment for race. GFR, EST. >60 >=60 022 5:03 PM CDT [facility] GFR, EST. NONAFRICAN >60 >=60 02/18/2022 5:03 PM CDT [facility] Blood Venipuncture / Unknown 02/18/2022 3:34 PM CDT 02/18/2022 4:34 PM CDT Brayan Nazario MD CHEMISTRY ORDERABLES Final Result [facility] [address] [place] [address] documented in this encounter Visit Diagnoses Diagnosis Fever in adult- Primary Nausea Nausea alone documented in this encounter Care Teams Film Sorter Relationship Specialty Start Date End Date Provider, None [place] PCP - General 05/31/17 11/05/22 Brayan Nazario MD [address] [address] [phone] Consulting Physician General Surgery 01/15/22 documented as of this encounter
--- OUTSIDE RECORDS SUMMARY | 2024-04-27 18:04 | XMS_ITS | Encounter Summary ---
Author Organization [employer] Care Team Providers Care Airworthiness Inspector Name Role Phone Provider, None Primary Care Provider Brayan Barrett MD Unavailable [phone] Encounter Details Date Type Department Care Team (Latest Contact Info) Description 01/30/2022 Travel Social History Tobacco Use Types Packs/Day [...] on filedocumented in this encounter Care Teams Airworthiness Inspector Relationship Specialty Start Date End Date Provider, None [place] PCP - General 05/31/17 11/05/22 Brayan Nazario MD #[address] [phone] Consulting Physician General Surgery 01/15/22 documented as of this encounter
--- OUTSIDE RECORDS SUMMARY | 2024-04-27 18:04 | XMS_ITS | Encounter Summary ---
Author Organization [facility] Address [address] [place] [address] Phone Care Team Providers Care Home Energy Auditor Name Role Phone Provider, None Primary Care Provider Unavailabl e Brayan Nazario MD Unavailable Encounter Details Date Type Department Care Team (Late st Contact Info) Description 02/19/2022 Telephone [facility] - General [facility] #[address] [phone] Brayan Nazario MD #[address] [phone] Social History Tobacco Use Types Packs/Day Years [...] PM CDT documented as of this encounter Miscellaneous Notes * Telephone Encounter - Radha Siddiqi RN - 02/19/2022 11:48 AM CDT Spoke with patient who is aware of results and verbalizes understanding. * Telephone Encounter - Radha Siddiqi RN - 02/19/2022 11:45 AM CDT ----- Message from Brayan Nazario MD sent at 02/19/2022 10:58 AM CDT ----- We can notify the patient that her CBC as well as her CMP are normal. Her white count is normal as well as her bilirubin. No anemia. Kidney function normal. documented in this encounter Plan of Treatment Not on file documented as of this encounter Visit Diagnoses Not on filedocumented in this encounter Care Teams Home Energy Auditor Relationship Specialty Start Date End Date Provider, None [place] PCP - General 05/31/17 11/05/22 Brayan Nazario MD #[address] [phone] Consulting Physician General Surgery 01/15/22 documented as of this encounter
--- OUTSIDE RECORDS SUMMARY | 2024-04-27 18:04 | XMS_ITS | Encounter Summary ---
Author Organization [employer] Care Team Providers Care Director Of Category Management Name Role Phone Provider, None Primary Care Provider Brayan Barrett MD Unavailable Encounter Details Date Type Department Care Team (Latest Contact Info) Description 02/11/2022 Travel Social History Tobacco Use Types Packs/Day [...] in this encounter Care Teams Director Of Category Management Relationship Specialty Start Date End Date Provider, None [place] PCP - General 05/31/17 11/05/22 Brayan Nazario MD #[address] [phone] Consulting Physician General Surgery 01/15/22 documented as of this encounter
--- OUTSIDE RECORDS SUMMARY | 2024-04-27 18:04 | XMS_ITS | Encounter Summary ---
Author Organization [employer] Care Team Providers Care Manager Operating Name Role Phone Provider, None Primary Care Provider Brayan Barrett MD Unavailable Encounter Details Date Type Department Care Team (Latest Contact Info) Description 01/19/2022 Travel Social History Tobacco Use Types Packs/Day [...] filedocumented in this encounter Care Teams Manager Operating Relationship Specialty Start Date End Date Provider, None [place] PCP - General 05/31/17 11/05/22 Brayan Nazario MD #[address] [phone] Consulting Physician General Surgery 01/15/22 documented as of this encounter
--- OUTSIDE RECORDS SUMMARY | 2024-04-27 18:04 | XMS_ITS | Encounter Summary ---
Author Organization [employer] Care Team Providers Care Document Reviewer Name Role Phone Brayan Nazario MD Unavailable Apolinar Crowley MD Primary Care Provider [phone] Encounter Details Date Type Department Care Team (Latest Contact Info) Description 2022 Travel Social History Tobacco Use Types Packs/Day [...] suspected to have Coronavirus/COVID-19? No / Unsure 2022 8:32 AM CDT documented as of this encounter Plan of Treatment Not on file documented as of this encounter Visit Diagnoses Not on filedocumented in this encounter Care Teams Document Reviewer Relationship Specialty Start Date End Date Apolinar Crowley MD [address] [place] [address] [place] [address] PCP - General Network Consultant 11/06/22 Brayan Nazario MD [address] [phone] Consulting Physician General Surgery 01/15/22 documented as of this encounter
--- OUTSIDE RECORDS SUMMARY | 2024-04-27 18:04 | XMS_ITS | Encounter Summary ---
Author Organization [employer] Care Team Providers Care Web Consultant Name Role Phone Provider, None Primary Care Provider Unavailabl e Encounter Details Date Type Department Care Team (Latest Contact Info) Description 02/16/2021 Travel Social History Tobacco Use Types Packs/Day [...] Exposure Response Date Recorded In the last month, have you been in contact with someone who was confirmed or suspected to have Coronavirus / COVID-19? No / Unsure 02/16/2021 9:12 AM CDT documented as of this encounter Plan of Treatment Not on file documented as of this encounter Visit Diagnoses Not on filedocumented in this encounter Care Teams Web Consultant Relationship Specialty Start Date End Date Provider, None [place] PCP - General 05/31/17 11/05/22 documented as of this encounter
--- OUTSIDE RECORDS SUMMARY | 2024-04-27 18:04 | XMS_ITS | Encounter Summary ---
Author Organization [facility] Address [address] [place] [address] Phone Care Team Providers Care Licensed Pesticide Applicator Name Role Phone Provider, None Primary Care Provider Unavailandie e Brayan Nazario MD Unavailable [phone] Reason for Visit * Reason Onset Date Comments Results 02/03/2022 Pathology - Gall bladder (Chronic cholecystitis with Cholelithiasis, negative for malignancy) Encounter Details Date Type Department Care Team (Late st Contact Info) Description 02/03/2022 Telephone [facility] - General Surgery - [place] #[address] [phone] Brayan Nazario MD #[address] [phone] Results (Pathology - Gallbladder (Chronic cholecystitis with Cholelithiasis, negative for malignancy)) Social History Tobacco Use Types Packs/Day Years Used Date Smoking Tobacco: Former Cigarettes 0.5 8 2 - 2019 Smokeless Tobacco: Never Alcohol Use [...] encounter Miscellaneous Notes * Telephone Encounter - Linda Markham RN - 02/03/2022 8:38 AM CDT Patient notified of results and verbalized understanding. * Telephone Encounter - Linda Markham RN - 02/03/2022 8:36 AM CDT ----- Message from Brayan Nazario MD sent at 02/02/2022 9:35 AM CDT ----- Please notify patient of pathology results FINAL DIAGNOSIS GALLBLADDER, CHOLECYSTECTOMY: - CHRONIC CHOLECYSTITIS WITH CHOLELITHIASIS - LYMPH NODE WITHOUT SIGNIFICANT HISTOLOGIC ABNORMALITIES. - NEGATIVE FOR DYSPLASIA OR MALIGNANCY. documented in this encounter Plan of Treatment Not on file documented as of this encounter Visit Diagnoses Not on filedocumented in this encounter Care Teams Licensed Pesticide Applicator Relationship Specialty Start Date End Date Provider, None [place] PCP - General 05/31/17 11/05/22 Brayan Nazario MD #[address] [phone] Consulting Physician General Surgery 01/15/22 documented as of this encounter
--- OUTSIDE RECORDS SUMMARY | 2024-04-27 18:04 | XMS_ITS | Encounter Summary ---
Author Organization [facility] Address [address] 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 Name Role Phone Provider, None Primary Care Provider Brayan Barrett MD Unavailable Reason for Visit * Reason Comments Chest Pain Encounter Details Date Type Department Care Team (Late st Contact Info) Description 01/15/2022 10:04 AM CDT - 01/15/2022 12:14 PM CDT Emergency [facility] [address] [place] [address] Michael Shane MD [address] [place] [address] Calculus of gallbladder without cholecystitis without obstruction Discharge Disposition: Discharged to home or Selfcare [...] Reading Time Taken Comments Blood Pressure 115/70 01/15/2022 12:00 PM CDT Pulse 66 01/15/2022 12:00 PM CDT Temperature 36.4 ??C (97.6 ??F) 01/15/2022 10:13 AM C DT Respiratory Rate 18 01/15/2022 10:29 AM CDT Oxygen Saturation 98% 01/15/2022 12:00 PM CDT Inhaled Oxygen Concentration - - Weight 79.4 kg (175 lb) 01/15/2022 10:13 AM CDT Height 154.9 cm (5' 1 ) 01/15/2022 10:13 AM CDT Body Mass Index 33.07 01/15/2022 10:13 AM CDT documented in this encounter Discharge Instructions * Discharge Instructions* Michael Shane MD - 01/15/2022 12:05 PM CDT Your pain is secondary to gallstones in the gallbladder. Please call General surgery today to schedule an appointment at the phone number provided. Please return to the emergency department if her pain gets worse, you start having nausea, vomiting, fevers or any other concerns. * Attachments The following attachments cannot be sent through Care Everywhere. * Cholelithiasis Lywt-ne-Nedz (Rwandan) documented in this encounter Medications at Time of Discharge acetaminophen-codei ne (TYLENOL #3) 300-30 MG TabletIndications:C alculus of gallbladder without cholecystitis without obstruction Take 1 Tablet by mouth every 4 hours as needed for Severe pain for up to 14 days. 20 Tablet 01/15/2022 2 ibuprofen (MOTRIN) 800 MG Tablet Take 1 Tablet by mouth every 8 hours. 20 Tablet 02/16/2021 2 documented as of this encounter ED Notes * Hope Pan RN - 01/15/2022 12:14 PM CDT Patient discharged. Discharge instructions and patient educational material reviewed with patient; questions and concerns addressed; patient verbalizes understanding, using teach back. Patient was given 1 prescription. Patient discharged per ambulatory mode with self as responsible democrat. SL D/C'edwith Kaz cath intact. * Hope Pan RN - 01/15/2022 10:26 AM CDT Pt to ultrasound. * Hope Pan RN - 01/15/2022 10:26 AM CDT Pt medicated per provider orders. Pt educated on intended effects and side effects of medication and verbalized understanding, able to provide teach back of education. * Michael Shane MD - 01/15/2022 10:18 AM CDTAssociated Order(s): EKG 12 LEAD Chief Complaint Patient presents with ??? Chest Pain Patient is a very pleasant 26-year-old female with past medical history of hysterectomy who presents with complaint of right upper quadrant abdominal pain. Patient states that the pain woke her up around 3:00 a.m. this morning has been persistent since. Pain is localized to the right upper quadrantand epigastric region and radiates around the right flank into the right upper back. Patient deniesany fever, chills, cough, shortness of breath, sputum production, chest pain. She did have some nausea earlier today but none currently. No vomiting, no urinary symptoms. Patient reports that she hashad similar pain intermittently over the last several months but never lasting this long. She did have a sandwich this morning which did not change the quality of her pain. She denies any other aggravating or alleviating factors. No other complaints currently patient reports that her pain is 8/10. No current facility-administered medications for this encounter. Current Outpatient Medications Medication Sig Dispense Refill ??? acetaminophen-codeine (TYLENOL #3) 300-30 MG Tablet Take 1 Tablet by mouth every 4 hours as needed for Severe pain for up to 14 days. 20 Tablet 0 ??? ibuprofen (MOTRIN) 800 MG Tablet Take 1 Tablet by mouth every 8 hours. (Patient not taking: Reported on 08/13/2021) 20 Tablet 0 No Known Allergies Past Medical History Positives Diagnosis Date ??? Depression Past Surgical History: Procedure Laterality Date ??? SECTION 2013 ??? HYSTERECTOMY 2018 spared ovaries ??? KNEE ARTHROSCOPY Left 08/27/2021 Procedure: LEFT KNEE ARTHROSCOPY, MEDIAL MENISCECTOMY; Surgeon: Giuseppe Cortez MD; Location: [facility]; Service: Orthopaedic ??? TONSILLECTOMY Social History [...] Never Used Vaping Use ??? Vaping Use: Not on file Substance and Sexual Activity ??? Alcohol use: Yes Comment: occasionally ??? Drug use: No ??? Sexual activity: Yes Partners: Male control/protection: Surgical Other Topics Concern ??? Not on file Social History Narrative ??? Not on file BP 114/63 Pulse 72 Temp 97.6 ??F (36.4 ??C) (Temporal) Resp 18 Ht 5' 1 (1.549 m) Wt 175 lb (79.4 kg) LMP (LMP Unknown) SpO2 99% BMI 33.07 kg/m?? Review of Systems Respiratory: Negative. Cardiovascular: Negative. Gastrointestinal: See HPI Genitourinary: Negative. Musculoskeletal: Negative. Skin: Negative. All other systems reviewed and are negative. Physical Exam Vitals and nursing note reviewed. Constitutional: General: She is not in acute distress. Appearance: Normal appearance. She is well-developed. She is not ill-appearing or diaphoretic. HENT: Head: Normocephalic and atraumatic. Right Ear: External ear normal. Left Ear: External ear normal. Nose: Nose normal. Eyes: Extraocular Movements: Extraocular movements intact. Conjunctiva/sclera: Conjunctivae normal. Pupils: Pupils are equal, round, and reactive to light. Neck: Trachea: No tracheal deviation. Cardiovascular: Rate and Rhythm: Normal rate and regular rhythm. Heart sounds: Normal heart sounds. No murmur heard. Pulmonary: Effort: Pulmonary effort is normal. No respiratory distress. Breath sounds: Normal breath sounds. No decreased breath sounds, wheezing, rhonchi or rales. Chest: Chest wall: No mass, tenderness or edema. Abdominal: General: Bowel sounds are normal. Palpations: Abdomen is soft. There is no mass. Tenderness: There is abdominal tenderness (Right upper quadrant, positive Felipe sign). There is noguarding or rebound. Musculoskeletal: General: Normal range of motion. Cervical back: Normal range of motion. Skin: General: Skin is warm and dry. Neurological: General: No focal deficit present. Mental Status: She is alert and oriented to person, place, and time. Psychiatric: Mood and Affect: Mood normal. EKG 12 LEAD Performed by: Michael Shane MD Authorized by: Michael Shane MD ECG reviewed by ED Physician in the absence of a dental financial coordinator: yes Interpretation: Interpretation: normal Rate: ECG rate: 65 ECG rate assessment: normal Rhythm: Rhythm: sinus rhythm Ectopy: Ectopy: none QRS: QRS axis: Normal QRS intervals: Normal QRS conduction: normal ST segments: ST segments: Normal T waves: T waves: normal Q waves: Abnormal Q-waves: not present Imaging Results XR CHEST SINGLE VIEW PORTABLE (Final result) Result time 01/15/22 11:29:55 Procedure changed from XR CHEST SINGLE VIEW Final result by Tavares Huff DO (01/15/22 11:29:55) Impression: IMPRESSION: 1. Low lung volumes without definite evidence of acute cardiopulmonary process. Narrative: EXAM DESCRIPTION: XR CHEST SINGLE VIEW PORTABLE REASON FOR STUDY: Right Upper Quadrant Pain radiating into epigastric and right upper back with chest pressure and pain with breathing since 0300 hrs today- Hx hyterectomy, ex smoker TECHNIQUE: One radiographic view of the chest acquired. COMPARISON: None FINDINGS: There are low lung volumes. The heart size is accentuated by low lung volumes. The pulmonary vasculature mediastinum are grossly unremarkable. There is no definite evidence of a pneumothorax. There is no definite evidence of focal consolidation or pleural effusion. The osseous structures are acutely grossly unremarkable. THIS IS AN ELECTRONICALLY VERIFIED FINAL REPORT 01/15/2022 11:26 AM - Electronically signed by Tavares Huff D.O. PS: PS Report ID: [id number] Reading Location: [id number] US ABDOMEN LIMITED LEVEL 3 THREE ORGAN (Final result) Result time 01/15/22 11:03:18 Procedure changed from US ABDOMEN LIMITED, LEVEL 1 - SINGLE ORGAN [id number] Final result by Skyler Tracy MD (01/15/22 11:03:18) Impression: IMPRESSION: 1. Cholelithiasis with positive sonographic Felipe sign, as evidence for acute cholecystitis. 2. Hepatic steatosis with mild hepatomegaly. Narrative: EXAM DESCRIPTION: US ABDOMEN LIMITED LEVEL 3 THREE ORGAN REASON FOR STUDY: Right upper quadrant pain, gallbladder . Symptoms for 8 weeks. TECHNIQUE: Ultrasound of the right upper quadrant of the abdomen was performed with grayscale and color doppler interrogation. COMPARISON: None FINDINGS: LIVER: Increased hepatic echogenicity. 16.6 cm length. The main portal vein is patent with hepatopetal flow. GALLBLADDER: Echogenic gallstones. Positive sonographic Felipe's sign. The gallbladder wall measures 2.2 mm thickness. BILIARY: The common duct measures 4.2 mm diameter. PANCREAS: Visualized portions of the pancreas are within normal limits. Portions of the pancreatic body and tail are obscured due to bowel gas. RIGHT KIDNEY: No hydronephrosis. OTHER: No other significant findings. THIS IS AN ELECTRONICALLY VERIFIED FINAL REPORT 01/15/2022 11:00 AM - Electronically signed by Skyler Tracy M.D. JR: Report ID: [id number] Reading Location: [id number] US ABDOMEN LIMITED, LEVEL 1 - SINGLE ORGAN [id number] (Canceled) XR CHEST SINGLE VIEW (Canceled) Labs Reviewed CMP (COMPREHENSIVE METABOLIC PANEL) - Abnormal; Notable for the following components: Result Value SODIUM 134 (*) CHLORIDE 96 (*) GLUCOSE 108 (*) CREATININE, BLOOD 0.51 (*) CALCIUM 11.2 (*) SGPT (ALT) 60 (*) All other components within normal limits LIPASE - Normal COMPLETE BLOOD COUNT (CBC) WITH DIFF Narrative: The following orders were created for panel order Complete Blood Count (CBC) WITH Diff. Procedure Abnormality Status --------- ------ CBC with Auto Differential[[id number]] Final result Please view results for these tests on the individual orders. CBC WITH AUTO DIFFERENTIAL MDM Labs Reviewed CMP (COMPREHENSIVE METABOLIC PANEL) - Abnormal; Notable for the following components: Result Value SODIUM 134 (*) CHLORIDE 96 (*) GLUCOSE 108 (*) CREATININE, BLOOD 0.51 (*) CALCIUM 11.2 (*) SGPT (ALT) 60 (*) All other components within normal limits LIPASE - Normal COMPLETE BLOOD COUNT (CBC) WITH DIFF Narrative: The following orders were created for panel order Complete Blood Count (CBC) WITH Diff. Procedure Abnormality Status --------- ------ CBC with Auto Differential[[id number]] Final result Please view results for these tests on the individual orders. CBC WITH AUTO DIFFERENTIAL Coding Clinical Impression 1. Calculus of gallbladder without cholecystitis without obstruction ED Course as of 01/15/22 1205 [place] Jan 15, 2022 1136 XR CHEST SINGLE VIEW PORTABLE IMPRESSION: ?? 1. Low lung volumes without definite evidence of acute cardiopulmonary process. [DK] 1138 US ABDOMEN LIMITED LEVEL 3 THREE ORGAN IMPRESSION: ?? 1. Cholelithiasis with positive sonographic Felipe sign, as evidence for acute cholecystitis. 2. Hepatic steatosis with mild hepatomegaly. [DK] 1140 Patient does not have any objective finding for cholecystitis. Gallbladder wall is within normal limits. White count is normal. No fevers. Discussed with General surgery, short-term follow-up recommended. [DK] 1159 Patient reports that she feels better, discomfort is minimal at this time. There is no objective findings other than positive Felipe sign on the ultrasound exam of cholecystitis. Antibiotics arenot indicated. Emergent surgery is not indicated. [DK] ED Course User Index [NILESH] Michael Shane MD * Hope Pan, RN - 01/15/2022 10:15 AM CDT Pt to ED with complaints of pain in the center of her chest that radiates around the right side into the center of her back. Pt reports pain woke her from her sleep around 0300 this morning. Pain hasbeen constant since onset. Pt is tender in right upper quadrant/epigastric area. Pt denies recent cough, sob, or fevers. Pt reports one episode of vomiting this morning. Nausea has resolved. documented in this encounter Plan of Treatment Not on file documented as of this encounter Procedures Procedure Name Priority Date/Time Associated Diagnosis Comments XR CHEST SINGLE VIEW PORTABLE STAT 01/15/2022 11:13 AM CDT US ABDOMEN LIMITED LEVEL 3 THREE ORGAN STAT 01/15/2022 10:50 AM CDT CBC WITH AUTO DIFFERENTIAL STAT 01/15/2022 10:15 AM CDT LIPASE STAT 01/15/2022 10:15 AM CDT CMP (COMPREHENSIVE METABOLIC PANEL) STAT 01/15/2022 10:15 AM CDT COMPLETE BLOOD COUNT (CBC) WITH DIFF STAT 01/15/2022 10:15 AM CDT EKG 12 LEAD STAT 01/15/2022 10:12 AM CDT documented in this encounter Results * XR CHEST SINGLE VIEW PORTABLE (01/15/2022 11:13 AM CDT) Anatomical Region Laterality Modality Chest N/A Digital Radiogra phy 01/15/2022 11:2 6 AM CDT Impressions 01/15/2022 11:29 AM CDT IMPRESSION: ?? 1. ?? Low lung volumes without definite evidence of acute cardiopulmonary process. Narrative 01/15/2022 11:29 AM CDT EXAM DESCRIPTION: ?? XR CHEST SINGLE VIEW PORTABLE REASON FOR STUDY: ?? Right Upper Quadrant Pain radiating into epigastric and right upper back with chest pressure and pain with breathing since 0300 hrs today- Hx hyterectomy, ex smoker TECHNIQUE: ?? One ??radiographic view of the chest acquired. COMPARISON: ?? None FINDINGS: There are low lung volumes. ??The heart size is accentuated by low lung volumes. ??The pulmonary vasculature mediastinum are grossly unremarkable. ??There is no definite evidence of a pneumothorax. ??There is no definite evidence of focal consolidation or pleural effusion. The osseous structures are acutely grossly unremarkable. THIS IS AN ELECTRONICALLY VERIFIED FINAL REPORT 01/15/2022 11:26 AM - Electronically signed by ??Tavares Huff D.O. PS: PS D: ??01/15/2022 11:26 AM T: ??01/15/2022 11:26 AM Report ID: [id number] Reading Location: ??[id number] Procedure Note Tavares Huff DO - 01/15/2022 EXAM DESCRIPTION: XR CHEST SINGLE VIEW PORTABLE REASON FOR STUDY: Right Upper Quadrant Pain radiating into epigastric and right upper back with chest pressure and pain with breathing since 0300 hrs today- Hx hyterectomy, ex smoker TECHNIQUE: One radiographic view of the chest acquired. COMPARISON: None FINDINGS: There are low lung volumes. The heart size is accentuated by low lung volumes. The pulmonary vasculature mediastinum are grossly unremarkable. There is no definite evidence of a pneumothorax. There is no definite evidence of focal consolidation or pleural effusion. The osseous structures are acutely grossly unremarkable. THIS IS AN ELECTRONICALLY VERIFIED FINAL REPORT 01/15/2022 11:26 AM - Electronically signed by Tavares Huff D.O. PS: PS Report ID: [id number] Reading Location: [id number] IMPRESSION: 1. Low lung volumes without definite evidence of acute cardiopulmonary process. us Michael Shane MD IMG DIAGNOSTIC ORDERABLES Final Result * US ABDOMEN LIMITED LEVEL 3 THREE ORGAN (01/15/2022 10:50 AM CDT) Anatomical Region Laterality Modality Abdomen N/A Ultrasound 01/15/2022 11:0 0 AM CDT Impressions 01/15/2022 11:03 AM CDT IMPRESSION: 1. ?? Cholelithiasis with positive sonographic Felipe sign, as evidence for acute cholecystitis. 2. ?? Hepatic steatosis with mild hepatomegaly. Narrative 01/15/2022 11:03 AM CDT EXAM DESCRIPTION: ?? US ABDOMEN LIMITED LEVEL 3 THREE ORGAN REASON FOR STUDY: Right upper quadrant pain, gallbladder . ??Symptoms for 8 weeks. TECHNIQUE: Ultrasound of the right upper quadrant of the abdomen was performed with grayscale and color doppler interrogation. COMPARISON: None FINDINGS: LIVER: ??Increased hepatic echogenicity. ??16.6 cm length. ?? The main portal vein is patent with hepatopetal flow. GALLBLADDER: ??Echogenic gallstones. ??Positive sonographic Felipe's sign. ??The gallbladder wall measures 2.2 mm thickness. BILIARY: The common duct measures 4.2 mm diameter. PANCREAS: Visualized portions of the pancreas are within normal limits. Portions of the pancreatic body and tail are obscured due to bowel gas. RIGHT KIDNEY: ??No hydronephrosis. ?? OTHER: ??No other significant findings. THIS IS AN ELECTRONICALLY VERIFIED FINAL REPORT 01/15/2022 11:00 AM - Electronically signed by ??Skyler Tracy M.D. JR: D: ??01/15/2022 11:00 AM T: ??01/15/2022 11:00 AM Report ID: [id number] Reading Location: ??[id number] Procedure Note Skyler Tracy MD - 01/15/2022 EXAM DESCRIPTION: US ABDOMEN LIMITED LEVEL 3 THREE ORGAN REASON FOR STUDY: Right upper quadrant pain, gallbladder . Symptoms for 8 weeks. TECHNIQUE: Ultrasound of the right upper quadrant of the abdomen was performed with grayscale and color doppler interrogation. COMPARISON: None FINDINGS: LIVER: Increased hepatic echogenicity. 16.6 cm length. The main portal vein is patent with hepatopetal flow. GALLBLADDER: Echogenic gallstones. Positive sonographic Felipe's sign. The gallbladder wall measures 2.2 mm thickness. BILIARY: The common duct measures 4.2 mm diameter. PANCREAS: Visualized portions of the pancreas are within normal limits. Portions of the pancreatic body and tail are obscured due to bowel gas. RIGHT KIDNEY: No hydronephrosis. OTHER: No other significant findings. THIS IS AN ELECTRONICALLY VERIFIED FINAL REPORT 01/15/2022 11:00 AM - Electronically signed by Skyler Tracy M.D. JR: Report ID: [id number] Reading Location: [place] [id number] IMPRESSION: 1. Cholelithiasis with positive sonographic Felipe sign, as evidence for acute cholecystitis. 2. Hepatic steatosis with mild hepatomegaly. us Michael Shane MD G US ORDERABLES Final Result * CBC with Auto Differential (01/15/2022 10:15 AM CDT) WBC 9.83 4.00 - 12.00 10(3)/mcL 01/15/2022 10:28 AM CDT [facility] RBC 4.80 3.80 - 5.30 10(6)/mcL 01/15/2022 10:28 AM CDT [facility] HEMOGLOBIN (HGB) 14.3 12.0 - 15.8 g/dL 01/15/2022 10:28 AM CDT [facility] HEMATOCRIT (HCT) 43.3 36.0 - 47.0 % 01/15/2022 10:28 AM CDT [facility] MCV 90.2 82.0 - 96.0 fL 01/15/2022 10:28 AM CDT [facility] MCH 29.8 26.0 - 34.0 pg 01/15/2022 10:28 AM CDT [facility] MCHC 33.0 31.0 - 36.0 g/dL 01/15/2022 10:28 AM CDT [facility] PLATELET COUNT 314 140 - 440 10(3)/mcL 01/15/2022 10:28 AM CDT [facility] RDW 11.8 11.8 - 15.5 % 01/15/2022 10:28 AM CDT [facility] MPV 10.2 9.7 - 12.4 fL 01/15/2022 10:28 AM CDT [facility] NEUTROPHILS 69.8 47.0 - 73.0 % 01/15/2022 10:28 AM CDT [facility] LYMPHOCYTES 23.4 18.0 - 42.0 % 01/15/2022 10:28 AM CDT [facility] MONOCYTES 4.9 4.0 - 12.0 % 01/15/2022 10:28 AM CDT [facility] EOSINOPHILS 1.1 0.0 - 5.0 % 01/15/2022 10:28 AM CDT [facility] BASOPHILS 0.8 0.0 - 1.0 % 01/15/2022 10:28 AM CDT [facility] ABSOLUTE NEUTROPHILS 6.86 1.60 - 7.70 10(3)/[facility] 01/15/2022 10:28 AM CDT [facility] ABSOLUTE LYMPHOCYTES 2.30 1.30 - 3.20 10(3)/[facility] 01/15/2022 10:28 AM CDT [facility] ABSOLUTE MONOCYTES 0.48 0.20 - 1.00 10(3)/[facility] 01/15/2022 10:28 AM CDT [facility] ABSOLUTE EOSINOPHIL 0.11 0.00 - 0.40 10(3)/[facility] 01/15/2022 10:28 AM CDT [facility] ABSOLUTE BASOPHILS 0.08 0.00 - 0.10 10(3)/[facility] 01/15/2022 10:28 AM CDT [facility] NRBC PER 100 WBC 0 01/16/20 10:28 AM CDT [facility] Blood Venipuncture / Unknown 01/15/2022 10:15 AM CDT 01/15/2022 10:23 AM CDT us Michael Shane MD HEMATOLOGY ORDERABLES Final Resu lt Performing Organization Address City/[facility]/ZIP Co de Phone Number [facility] [address] [place] [address] * Lipase (01/15/2022 10:15 AM CDT) LIPASE 29.1 13 - 60 U/L 01/15/2022 10:51 AM CDT [facility] Blood Venipuncture / Unknown 01/15/2022 10:15 AM CDT 01/15/2022 10:23 AM CDT us Michael Shane MD CHEMISTRY ORDERABLES Final Resul t Performing Organization Address [facility] Co de Phone Number [facility] [address] [place] [address] * (ABNORMAL) CMP (Comprehensive Metabolic Panel) (01/15/2022 10:15 AM CDT) SODIUM 134(L) 136 - 144 mmol/L 01/15/2022 10:51 AM CDT [facility] POTASSIUM 3.8 3.5 - 5.1 mmol/L 01/15/2022 10:51 AM CDT [facility] CHLORIDE 96(L) 100 - 110 mmol/L 01/15/2022 10:51 AM CDT [facility] CO2, VENOUS 25 22 - 32 mmol/L 01/15/2022 10:51 AM CDT [facility] ANION GAP 16.8 8.0 - 20.0 mmol/L 01/15/2022 10:51 AM CDT [facility] GLUCOSE 108(H) 70 - 99 mg/dL 01/15/2022 10:51 AM CDT [facility] BUN 8 6 - 20 mg/dL 01/15/2022 10:51 AM CDT [facility] CREATININE, BLOOD 0.51(L) 0.60 - 1.10 mg/dL 01/15/2022 10:51 AM [facility] BUN/CREATININE RATIO 16 12 - 20 ratio 01/15/2022 10:51 AM [facility] TOTAL PROTEIN 8.2 6.0 - 8.3 g/dL 01/15/2022 10:51 AM [facility] ALBUMIN 5.1 3.5 - 5.2 g/dL 01/15/2022 10:51 AM [facility] Comment: The colormetric methods used for the determination of Albumin may lead to falsely elevated test results in patients suffering from renal failure or insufficiency due to interference with other proteins. A/G RATIO 1.6 1.0 - 2.0 01/15/2022 10:51 AM [facility] CALCIUM 11.2(H) 8.9 - 10.3 mg/dL 01/15/2022 10:51 AM [facility] T BILI 0.4 <=1.2 mg/dL 01/15/2022 10:51 AM [facility] SGOT (AST) 24 <=32 U/L 01/15/2022 10:51 AM [facility] SGPT (ALT) 60(H) <=41 U/L 01/15/2022 10:51 AM [facility] ALKALINE PHOSPHATASE 86 35 - 105 U/L 01/15/2022 10:51 AM [facility] GFR, ESTIMATED >60 >=60 01/15/2022 10:51 AM [facility] Comment: Creatinine Clearance is the preferred criteria for selecting drug dose adjustments in renally impaired patients. ??The GFR is provided as additional pertinent clinical information. GFR is reported in mL/min/1.73 sq m. Calculation based on the Chronic Kidney Disease Epidemiology Collaboration (CKD- EPI) equation refit without adjustment for race. GFR, EST. >60 >=60 022 10:51 AM [facility] GFR, EST. NONAFRICAN >60 >=60 01/15/2022 10:51 AM [facility] Blood Venipuncture / Unknown 01/15/2022 10:15 AM CDT 01/15/2022 10:23 AM CDT us Michael Shane MD CHEMISTRY ORDERABLES Final Resul t Performing Organization Address [facility] Co de Phone Number [facility] [address] [place] [address] * EKG 12 LEAD (01/15/2022 10:12 AM CDT) Ventricular Rate BPM EXTERNAL EKG Atrial Rate BPM EXTERNAL EKG P-R Interval 178 ms EXTERNAL EKG QRS Duration 80 ms EXTERNAL EKG Q-T Duration 374 ms EXTERNAL EKG QTC CALCULATION 389 ms EXTERNAL EKG P [place] -13 degrees EXTERNAL EKG R [place] 12 degrees EXTERNAL EKG T [place] 1 degrees EXTERNAL EKG 01/15/2022 10:1 2 AM CDT Impressions EXTERNAL EKG - 01/16/2022 1:36 PM CDT Sinus rhythm Possible right ventricular hypertrophy Inferior and septal ST-T abnormality is probably due to ventricular hypertrophy Comparison Summary: No serial comparison made Summary: Abnormal ECG Confirmed by Georgi Michele [id number] on 01/16/2022 1:36:23 PM Narrative Procedure Note Ryne Hassan MD - 01/16/2022 IMPRESSION: Sinus rhythm Possible right ventricular hypertrophy Inferior and septal ST-T abnormality is probably due to ventricularhypertrophy Comparison Summary: No serial comparison made Summary: Abnormal ECG Confirmed by Georgi Michele [id number] on 01/16/2022 1:36:23 PM us Michael Shane MD IMG ECG ORDERABLES Final Result Performing Organization Address [facility] Co de Phone Number EXTERNAL EKG documented in this encounter Visit Diagnoses Diagnosis Calculus of gallbladder without cholecystitis without obstruction- Primary Calculus of gallbladder without mention of cholecystitis or obstruction documented in this encounter Administered Medications Inactive Administered Medications - up to 3 most recent administrations Medication Order MAR Action Action Date Dose Rate Site ketorolac (TORADOL) injection 30 mg 30 mg, Intravenous, ONCE, 1 dose, On Morenita 01/15/22 at 1100 Given 01/15/2022 10:25 AM CDT 30 mg documented in this encounter Active and Recently Administered Medications Times are shown in CDT. Scheduled Medication Order 01/13/2022 01/14/2022 01/15/2022 ketorolac (TORADOL) injection 30 mg (COMPLETED) 30 mg, Intravenous, ONCE, 1 dose, On Morenita 01/15/22 at 1100 1025 (Given - Provid er: Hope Pan RN) documented in this encounter Care Teams Cantilever Crane Operator Relationship Specialty Start Date End Date Provider, None [place] PCP - General 05/31/17 11/05/22 Brayan Nazario MD #[address] [address] Consulting Physician General Surgery 01/15/22 documented as of this encounter
--- OUTSIDE RECORDS SUMMARY | 2024-04-27 18:04 | XMS_ITS | Encounter Summary ---
Author Organization [facility] Address [address] [place] [address] Phone Care Team Providers Care Tax Attorney Name Role Phone Provider, None Primary Care Provider Unavailabl e Reason for Visit * Auth/Cert Specialty Diagnoses / Procedures Referred By Alma t Referred To Contact Diagnoses INTERNAL DERANGEMENT LEFT KNEE Procedures ARTHROSCOPY KNEE Referral ID Status Reason Start Date Expiration Date Visits Re quested Visits Authorized [id number] 1 1 Encounter Details Date Type Department Care Team (Late st Contact Info) Description 08/27/2021 5:25 AM CDT - 08/27/2021 11:50 AM CDT Hospital [facility] Preop/Pacu II [address] [place] [address] Giuseppe Cortez MD [address] [address] Discharge Disposition: Discharged to home or Selfcare [...] Recorded In the last 10 days, have mercedes singh been in contact with someone who was confirmed or suspected to have Coronavirus/COVID-19? No / Unsure 08/27/2021 5:25 AM CDT documented as of this encounter Last Filed Vital Signs Vital Sign Reading Time Taken Comments Blood Pressure 126/68 08/27/2021 11:15 AM CDT Pulse 90 08/27/2021 11:15 AM CDT Temperature 37 ??C (98.6 ??F) 08/27/2021 11:15 AM CDT Respiratory Rate 16 08/27/2021 11:15 AM CDT Oxygen Saturation 98% 08/27/2021 11:15 AM CDT Inhaled Oxygen Concentration - - [...] Care Everywhere. * Knee Arthroscopy Care After (Botswanan) documented in this encounter Medications at Time [...] HISTORY AND PHYSICAL REPORT Admit: 08/27/2021 CSN: [id number] Dictating Provider: [id number] Giuesppe Cortez MD Ms. Mathews will be at [facility] for day surgery 08/27/2021 to undergo left [...] The patient is single. REVIEW OF SYSTEMS: SEGMENTAL PAVER INSTALLER: Denies dizziness or loss of consciousness. Chest: [...] with the proposed plan. PLAN: Day surgery, [facility], 08/27/2021. On admission, please obtain consent for left knee arthroscopy. MAT/jhonm /[id number] CC: Benjamin Flanagan MD [[id number]] documented in this encounter Nursing Notes * Danay Pedroza, RN - 08/27/2021 9:00 AM CDT WHO [...] AM CDT OPERATIVE REPORT Admit: 08/27/2021 CSN: [id number] Dictating Provider: [id number] Giuseppe Cortez MD DATE OF PROCEDURE: 08/27/2021 [...] arthroscopic partial medial meniscectomy (bucket handle tear). UMBRELLA FRAME MAKER: None. MAT/na /[id number] * OR Surgeon - Giuseppe Cortez MD [...] encounter Miscellaneous Notes * Interdisciplinary - Radha hTomas RN - 08/27/2021 11:34 AM CDT Pt. [...] of Care Review 08/27/2021 1008 by Radha Thomas RN Outcome: Outcome Achieved Flowsheets Taken 08/27/2021 100 Does the patient need assistance with discharge and/or transitioning to the next level of care?: No, no needs anticipated Taken 08/27/2021 0544 Progress: progress toward functional goals as expected Plan of Care Reviewed With: patient Today's Goal: pain control 08/27/2021 0544 by Radha Thomas RN Outcome: Ongoing (see interventions/notes) Flowsheets (Taken 08/27/2021543) Progress: progress toward functional goals as expected Plan of Care Reviewed With: patient Today's Goal: pain control Does the patient need assistance with discharge and/or transitioning to the next level of care?: No, no needs anticipated Goal: Absence of Hospital-Acquired Illness or Injury 08/27/2021 1008 by Radha Thomas RN Outcome: Outcome Achieved 08/27/2021543 by Radha Thomas RN Outcome: Ongoing (see interventions/notes) Intervention: Prevent and Manage VTE (Venous Thromboembolism) Risk 08/27/20211007 by Radha Thomas RN Flowsheets (Taken 08/27/2021543) VTE Prevention/Management: ambulation encouraged 08/27/2021543 by Radha Thomas RN Flowsheets (Taken 08/27/2021543) VTE Prevention/Management: ambulation encouraged Goal: Optimal Comfort and Wellbeing 08/27/2021 100 by Radha Thomas RN Outcome: Outcome Achieved 08/27/2021543 by Radha Thomas RN Outcome: Ongoing (see interventions/notes) Intervention: Provide Person-Centered Care 08/27/20211007 by Radha Thomas RN Flowsheets (Taken 08/27/2021543) Trust Relationship/Rapport: care explained choices provided 08/27/2021543 by Radha Thomas RN Flowsheets (Taken 08/27/2021543) Trust Relationship/Rapport: care explained choices provided Goal: Readiness for Transition of Care 08/27/20211007 by Radha Thomas RN Outcome: Outcome Achieved 08/27/2021543 by Radha Thomas RN Outcome: Ongoing (see interventions/notes) * Plan of Care - Radha Thomas RN - 08/27/2021 5:44 AM CDT Problem: Adult Inpatient Plan of Care Goal: Plan of Care Review Outcome: Ongoing (see interventions/notes) Flowsheets (Taken 08/27/2021543) [...] Intervention: Provide Person-Centered Care Flowsheets (Taken 08/27/2021 0544) Trust Relationship/Rapport: care explained choices provided Goal: Readiness for Transition of Care Outcome: Ongoing (see interventions/notes) * Malika Vidal RN - 08/13/2021 9:34 AM CDT Per phone conversation with patient, she stated that she has not received any COVID vaccination. COVID testing instructions given. * Malika Vidal RN - 08/13/2021 9:33 AM CDT [facility] Patient Name: Cait Mathews : 1995 CSN#: [id number] Person Educated Patient Ready to Learn Yes Teaching Method Phone Have required COVID test on a.m. of 08/25/21 at [facility], then protect from infection afterwards until your [...] be allowed to accompany you to the [facility]. No children under theage of 16 will be allowed in the [facility] unless they are the patient. [...] Patient Response: Verbalizes Understanding Patient assessed for multi disciplined language analyst during the preop interview and appropriate interventions [...] Case Report Surgical Pathology Report ? Case: [id number] ? Authorizing Provider: ??Giuseppe Cortez MD ?Collected: ? 08/27/2021 08:41 AM ? Ordering Location: ? [facility] ? Received: ?08/27/2021 12:33 PM ? [facility] ? Main OR ? Pathologist: ? Milo Cummings MD ? Specimen: ?Knee, LEFT KNEE DEBRIDED BONE AND TISSUE ? 08/28/2021 8:45 AM CDT [facility] FINAL DIAGNOSIS BONE AND TISSUE, LEFT KNEE, EXCISION: - FRAGMENTS OF ARTICULAR CARTILAGE, AND SYNOVIUM. - NEGATIVE FOR SIGNIFICANT ACUTE INFLAMMATION OR CRYSTALLINE MATERIAL. 08/28/2021 8:45 AM T [facility] Pre-Operative Diagnosis INTERNAL DERANGEMENT LEFT KNEE 08/28/2021 8:45 AM CDT [facility] Gross Description A. LEFT KNEE DEBRIDED BONE AND TISSUE The specimen presents in a single formalin container for gross and microscopic examination, labeled with the patient's name, Cait Mathews, and designated left knee debrided one and tissue. The specimen consists of a single tissue collection bag together with 1 gram of pale white-carmona, soft tissue fragments. Outboard Motor Mechanic sample submitted inc cassette A1. KS/sb 08/28/2021 8:45 AM CDT [facility] Microscopic Description Microscopic examination was performed which supports the final diagnosis. All control tissues stained appropriately. 08/28/2021 8:45 AM CDT [facility] Tissue KNEE JOINT SYNOVIAL FLUID / Unknown 08/27/2021 8:41 AM CDT 08/27/2021 12:33 PM CDT us Giuseppe Cortez MD PATHOLOGY/CYTOLOGY ORDERAB LES Final Result [facility] [address] [place] [address] documented in this encounter Visit Diagnoses Diagnosis Complex tear of medial meniscus of left knee as current injury, initial encounter- Primary documented in this encounter [...] 0540, Until Wed08/27/21 at 0552, Created by cabjeysont override celecoxib (CeleBREX) capsule 200 mg 200 [...] Wed08/27/21 at 1354, Created by cabinet override HYDROcodone-acetaminophen (NORCO) 5-325 MG per tablet 1 [...] 2) increasing dosage, or 3) changing to DRY CLEANING CHECKER., PACU (I & II) HYDROMORPHONE HCL 2 [...] 5:52 AM CDT 50 mL/hr 50 mL/hr ondansetron (ZOFRAN) injection 4 mg 4 mg, [...] all sources in 24 hours., PRE-OP (SURGERY) 0552 (Given - Provid er: Radha Thomas RN) ceFAZolin (ANCEF) injection 2 g (COMPLETED) 2 g, Intravenous, ONCE, 1 dose, On Wed08/27/21 at 0600, Administer over 5 Minutes, If allergic to Ancef give Vancomycin 1gm IV, INTRA-OP, Indications: Perioperative Pharmacoprophylaxis 0811 (Given - Provid er: Tani Britt APRN, DOMINATRIX) celecoxib (CeleBREX) capsule 200 mg (COMPLETED) 200 [...] (Given - Provid er: Radha Thomas RN) Continuous Medication Order 08/25/2021 08/26/2021 08/27/2021 lactated ringers infusion at 50 mL/hr, Intravenous, CONTINUOUS, Starting on Wed08/27/21 at 0600, Until Wed08/27/21 at 1354, PRE-OP (SURGERY) 0552 (New Bag - Prov ider: Radha Thomas RN)0800 (Continued by Anesthesia - Provider: Tani Britt APRN, DOMINATRIX)0937 (Infusing on Transfer - Provider: Vera Saenz, FLEX)1100 (Stopped - Provider: Radha Thomas, FLEX) PRN Medication Order 08/25/2021 08/26/2021 08/27/2021 bupivacaine [...] 2) increasing dosage, or 3) changing to DRY CLEANING CHECKER., PACU (I & II) methylPREDNISolone acetate (DEPO-MEDROL) [...] 0733, Until Wed08/27/21 at 1354, Created by denise override documented in this encounter Care Teams Tax Attorney Relationship Specialty Start Date End Date Provider, None [place] PCP - General 05/31/17 11/05/22 documented as of this encounter
--- OUTSIDE RECORDS SUMMARY | 2024-04-27 18:04 | XMS_ITS | Encounter Summary ---
Author Organization [facility] Address [address] [place] [address] Phone Care Team Providers Care Coremaker Bench Name Role Phone Provider, None Primary Care Provider Unavailabl e Brayan Nazario MD Unavailable [phone] Reason for Visit * Auth/Cert Specialty Diagnoses / Procedures Referred By Contac t Referred To Contact Diagnoses BILIARY CALCULUS OF OTHER SITE WITHOUT OBSTRUCTION Procedures LAPAROSCOPIC CHOLECYSTECTOMY WITH / WITHOUT CHOLANGIOGRAMS Brayan Nazario MD #[address] [address] Phone: tel: fax: Referral ID Status Reason Start Date Expiration Date Visits Re quested Visits Authorized [id number] 1 1 Encounter Details Date Type Department Care Team (Late st Contact Info) Description 01/30/2022 10:48 AM CDT [facility] [address] [place] [id number] Ozzy Stout APRN, CRNA [address] [place] [address] Anesthesia Record Procedure Summary Procedure Name Responsible Anesthesiologist Anesthesia Start Time Anesthesia Stop Time LAPAROSCOPIC CHOLECYSTECTOMY WITH INTRAOPERATIVE CHOLAGIOGRAM WITH INDOCYANINE GREEN (Abdomen) Ozzy Stout APRN, CRNA 01/30/22 1048 01/30/22 1208 Events Date Time Event Comment 01/30/2022 1048 An Start 1052 An Start Data 1057 ANASSESSCMPLT 1057 An Induction 1057 Intubation 1058 Anesthesia Ready 1203 An Extubation 1203 Stop Data Collection 1203 Transort to Postop 1207 Handoff to RN I completed my SBAR handoff to the receiving nurse. Last vitals No data recorded 1208 An Stop Last vitals: No data recorded 02/02/2022 0819 Handoff to RN I completed my SBAR handoff to the receiving nurse. Last vitals No data recorded 0821 Meds Name Total midazolam (VERSED) injection 1 mg/mL 2 m g propofol 10 mg/mL 200 mg succinylcholine 20 mg/mL 100 mg rocuronium 10 mg/mL 30 mg fentaNYL 50 mcg/mL 150 mcg glycopyrrolate 0.2 mg/mL 0.2 mg cefOXitin (MEFOXIN) injection 2 g 2 g indocyanine green (IC-GREEN) injection 2 5 mg 2.5 mg atropine 0.4 mg/mL 0.2 mg ketorolac 30 mg/mL 30 mg lactated ringers infusion 700 mL * Agents Name FiO2 (%) FexpO2 (%) Inspired CO2 (mmHg) ETCO2 (mmHg) Inspired N2O (%) N2O (%) Sevoflurane (%) Inspired Sevoflurane (%) * Blood No blood administrations on file. Lines, Drains, and Airways Type Details Placement Removal RETIRED Incision 01/30/22; 1117; abdo men; laparoscopic punctures 01/30/22 1117 by Yumi Pedroza RN PIV-Single Lumen Placement Date: 01/09 07/29; Placement Time: 0859; Catheter Size: 20 G; Orientation: Anterior, Proximal, Right; Location: Forearm; Site Prep: Alcohol; Local Anesth: None; Inserted by: Felecia Mello RN; Insertion Attempts: 1; Patient Tolerance: Tolerated well; Removal Date: 01/30/22; Removal Time: 1510 01/30/22 0859 by Kaushal Linares RN 01/30/22 1510 by Kaushal Linares RN ETT Placement Date: 01/09 07/29; Placement Time: 1107 (created via procedure documentation); Removal Date: 01/30/22; Removal Time: 1203 01/30/22 1107 by Ozzy Stout APRN, CRNA 01/30/22 1203 by Ozzy Stout APRN, CRNA documented in this encounter Social History Tobacco [...] AM CDT documented as of this encounter OR Notes * Anesthesia Postprocedure Evaluation - Ozzy Stout APRN, CRNA - 01/30/2022 12:08 PM CDT Patient: Cait Mathews Procedure Summary Date: 01/30/22 Room / Location: [facility] MAIN OR 02 / [facility] Anesthesia Start: 1048 Anesthesia Stop: 1208 Procedure: LAPAROSCOPIC CHOLECYSTECTOMY WITH INTRAOPERATIVE CHOLAGIOGRAM WITH INDOCYANINE GREEN (N/A Abdomen) Diagnosis: (BILIARY CALCULUS OF OTHER SITE WITHOUT OBSTRUCTION) Surgeons: Brayan Nazario MD Responsible Provider: Ozzy Stout APRN, CRNA Anesthesia Type: general ASA Status: 2 Anesthesia Type: general Last vitals Vitals Value Taken Time BP 108/58 01/30/22 1430 Temp 36.6 ??C (97.9 ??F) 01/30/22 1430 Pulse 57 01/30/22 1430 Resp 14 01/30/22 1430 SpO2 96 % 01/30/22 1430 Pain score: 0 Pain management: adequate Patient location during evaluation: PACU Patient participation: Fully recovered to participate Level of consciousness: awake Cardiovascular status: acceptable Respiratory status: acceptable Hydration status: acceptable Comments: VS per RN flow sheet Anesthetic complications: no Airway patency: patent Nausea and Vomiting: none * Anesthesia Procedure Notes - Ozzy Stout APRN, CRNA - 01/30/2022 11:05 AM CDTAssociated Order(s): Intubation in OR Intubation in OR Staffing Performed: resident/CASH REGISTER SERVICER Resident/CASH REGISTER SERVICER: Ozzy Stout APRN, CRNA Overall Difficulty: Easy Procedure Details Patient Position: Sniffing Ease of mask ventilation: not attempted Intubation Site: oral Tube Type: Standard Cuffed: yes Cricoid Pressure: No Rapid Sequence: No Blade Used: MAC Blade size: #4 Stylet Used: Yes Laryngeal View: Grade I Tube Size: 7 mmConfirmation: breath sounds and +EtCO2 Depth: 22 cm Atraumatic: Atraumatic intubation * Anesthesia Preprocedure Evaluation - Ozzy Stout APRN, CRNA - 01/30/2022 10:51 AM CDT Anesthesia Evaluation Procedure Information Date/Time: 01/30/22 1040 Procedure: LAPAROSCOPIC CHOLECYSTECTOMY WITH INTRAOPERATIVE CHOLAGIOGRAM WITH INDOCYANINE GREEN (N/A Abdomen) Location: [facility] MAIN OR 02 / [facility] Surgeons: Brayan Nazario MD Patient summary reviewed and Nursing notes reviewed No history of anesthetic complications No family history of anesthesia reaction Allergies: No Known Allergies Patient allergies reviewed. Medications: Current Facility-Administered Medications: ??? cefOXitin (MEFOXIN) injection 2 g, 2 g, Intravenous, Once, Brayan Nazario MD ??? FENTANYL CITRATE (PF) 250 MCG/5ML IJ SOLN, , , , ??? lactated ringers infusion, , Intravenous, Continuous, Ozzy Stout APRN, CRNA, Last Rate: 10 mL/hr at 01/30/22 0900, New Bag at 01/30/22 0900 ??? MIDAZOLAM HCL (PF) 2 MG/2ML IJ SOLN, , , , Medications Prior to Admission: ibuprofen (MOTRIN) 800 MG Tablet, Take 1 Tablet by mouth every 8 hours. (Patient not taking: Reported on 01/20/2022), Disp: 20 Tablet, Rfl: 0 Patient medications reviewed. Airway Mallampati: II TM distance: >3 FB Neck ROM: full Dental - normal exam Pulmonary - negative ROS and normal exam Cardiovascular - negative ROS and normal exam Neuro/Psych (+) psychiatric history GI/Hepatic/Renal - negative ROS Endo/Other - negative ROS Risks, benefits, alternatives discussed with:patient. Anesthesia Plan ASA 2 general intravenous induction Anesthetic plan and risks discussed with Patient. Plan discussed with CASH REGISTER SERVICER. documented in this encounter Plan of Treatment Not on file documented as of this encounter Procedures Procedure Name Priority Date/Time Associated Diagnosis Comments INTUBATION IN OR Routine 01/30/2022 11:0 5 AM CDT documented in this encounter Results * Intubation in OR (01/30/2022 11:05 AM CDT) Narrative Ozzy Stout APRN, CRNA - 01/30/2022 11:05 AM CDT Ozzy Stout APRN, CRNA ? 01/30/2022 11:07 AM Intubation in OR Staffing Performed: resident/CASH REGISTER SERVICER Resident/CASH REGISTER SERVICER: Ozzy Stout APRN, CRNA Overall Difficulty: ??Easy Procedure Details Patient Position: ??Sniffing Ease of mask ventilation: not attempted Intubation Site: oral Tube Type: ??Standard Cuffed: yes Cricoid Pressure: ??No Rapid Sequence: ??No Blade Used: MAC Blade size: #4 Stylet Used: ??Yes Laryngeal View: ??Grade I Tube Size: 7 mmConfirmation: breath sounds and +EtCO2 Depth: ??22 cm Atraumatic: ??Atraumatic intubation Ozzy Stout APRN, CRNA ANESTHESIA ORDERAB LES Final Result documented in this encounter Visit Diagnoses Not on filedocumented in this encounter Administered Medications Inactive Administered Medications - up to 3 most recent administrations Medication Order MAR Action Action Date Dose Rate Site atropine injection Intravenous, ONCE (in OR), Starting on Wed01/30/22 at 1119, Until Wed02/02/22 at 0820 Given 01/30/2022 11:19 AM CDT 0.2 mg cefOXitin (MEFOXIN) injection 2 g 2 g, Intravenous, ONCE, 1 dose, On Wed01/30/22 at 0900, Administer over 5 Minutes, INTRA-OP, Indications: Perioperative PharmacoprophylaxisIndications:Tia operative Pharmacoprophylaxis Given 01/30/2022 11:01 AM CDT 2 g fentaNYL (PF) (SUBLIMAZE) injection Intravenous, ONCE (in OR), Starting on Wed01/30/22 at 1051, Until Wed02/02/22 at 0820 Given 01/30/2022 11:31 AM CDT 50 mcg Given 01/30/2022 11:15 AM CDT 50 mcg Given 01/30/2022 10:51 AM CDT 50 mcg glycopyrrolate (ROBINUL) injection Intravenous, ONCE (in OR), Starting on Wed01/30/22 at 1119, Until Wed02/02/22 at 0820 Given 01/30/2022 11:19 AM C DT 0.2 mg indocyanine green (IC-GREEN) injection Intravenous, ONCE (in OR), Starting on Wed01/30/22 at 1047, Until Wed02/02/22 at 0820 Given 01/30/2022 10:47 AM C DT 2.5 mg ketorolac (TORADOL) injection Intravenous, ONCE (in OR), Starting on Wed01/30/22 at 1149, Until Wed02/02/22 at 0820 Given 01/30/2022 11:49 AM CDT 30 mg midazolam (VERSED) injection Intravenous, ONCE (in OR), Starting on Wed01/30/22 at 1048, Until Wed02/02/22 at 0820 Given 01/30/2022 10:48 AM CDT 2 mg propofol (DIPRIVAN) injection Intravenous, ONCE (in OR), Starting on Wed01/30/22 at 1056, Until Wed02/02/22 at 0820 Given 01/30/2022 10:56 AM C DT 200 mg rocuronium (ZEMURON) injection Intravenous, ONCE (in OR), Starting on Wed01/30/22 at 1103, Until Wed02/02/22 at 0820 Given 01/30/2022 11:03 AM CDT 30 mg succinylcholine (ANECTINE) injection Intravenous, ONCE (in OR), Starting on Wed01/30/22 at 1051, Until Wed02/02/22 at 0820 Given 01/30/2022 10:51 AM C DT 100 mg documented in this encounter Care Teams Coremaker Bench Relationship Specialty Start Date End Date Provider, None [place] PCP - General 05/31/17 11/05/22 Brayan Nazario MD #[address] [address] Consulting Physician General Surgery 01/15/22 documented as of this encounter
--- OUTSIDE RECORDS SUMMARY | 2024-04-27 18:04 | XMS_ITS | Encounter Summary ---
Author Organization [facility] Address [address] [place] [address] Phone Care Team Providers Care Foam Cutting Supervisor Name Role Phone Brayan Nazario MD Unavailable Apolinar Crowley MD Primary Care Provider [phone] Reason for Visit * Reason Comments Chest Pain Encounter Details Date Type Department Care Team (Late st Contact Info) Description 2022 8:29 AM CDT - 2022 12:29 PM CDT Emergency [facility] Emergency [address] [place] [address] Viri Larry, EMU FARMER, MACHINE MAINTENANCE SUPERVISOR [address] [place] [address] Chest pain, unspecified type Discharge Disposition: Discharged to home or Selfcare [...] Sign Reading Time Taken Comments Blood Pressure 138/72 2022 8:45 AM CDT Pulse 72 2022 8:45 AM CDT Temperature 36.2 ??C (97.1 ??F) 2022 8:44 AM CD T Respiratory Rate 16 2022 8:45 AM CDT Oxygen Saturation 98% 2022 8:45 AM CDT Inhaled Oxygen Concentration - - Weight 79.4 kg (175 lb) 2022 8:45 AM CDT Height 162.6 cm (5' 4 ) 2022 8:45 AM CDT Body Mass Index 30.04 2022 8:45 AM CDT documented in this encounter Discharge Instructions * Discharge Instructions* Viri Larry APRN, CNP - 2022 12:19 PM CDT Take medication as prescribed. Follow-up with primary care physician as soon as possible. Return toED with worsening symptoms. * Attachments The following attachments cannot be sent through Care Everywhere. * Nonspecific Chest Pain Adult [id number] (Faroese) documented in this encounter Medications at Time [...] as of this encounter ED Notes * Noemi Wade RN - 2022 12:27 PM CDT Patient discharged. Discharge instructions and patient educational material reviewed with patient; questions and concerns addressed; patient verbalizes understanding, using teach back. Patient was given 2 prescriptions. Patient was informed no drinking alcohol, driving or operating heavy machinery while taking narcotics or muscle relaxants. Patient discharged per ambulatory mode with self as responsible green party. SL D/C'ed with Kaz cath intact. * Noemi Wade RN - 2022 11:36 AM CDT Patient medicated per providers orders. * Viri Larry APRN, MACHINE MAINTENANCE SUPERVISOR - 2022 9:11 AM CDT Chief Complaint Patient presents with ??? Chest Pain Cait Mathews is a 27 y.o. female who presents to the ED c/o medial chest pain for the past 3 days. Patient states that the pain is an intermittent burning. She states that occasionally she will have the pain radiates to the left side under her breasts. She denies shortness of breath, nausea, abdominal pain. Denies recent cough or fever. States that she thought that the pain was related to acid reflux so she tried [id number] medications without any relief. She denies any pertinent past medical history. Past Medical History Positives No date: Depression Current Facility-Administered Medications Medication Dose Route Frequency Provider Last Rate Last Admin ? ? aluminum & magnesium hydroxide-simethicone (MAALOX, MYLANTA) 200-200-20 MG/5ML SUSP 20 mL 20 mL Oral Q6H PRN Viri Larry, EMU FARMER, MACHINE MAINTENANCE SUPERVISOR 20 mL at 11/06/22 1134 Current Outpatient Medications Medication Sig Dispense Refill [...] INDOCYANINE GREEN; Surgeon: Brayan Nazario MD; Location: [facility]; Service: General ??? SECTION 2013 ??? HYSTERECTOMY 2019 spared ovaries ??? KNEE ARTHROSCOPY Left 08/27/2021 Procedure: LEFT KNEE ARTHROSCOPY, MEDIAL MENISCECTOMY; Surgeon: Giuseppe Cortez MD; Location: [facility]; Service: Orthopaedic ??? TONSILLECTOMY Social History Socioeconomic [...] Types: Cigarettes Quit date: 2020 Years since quittin.4 ??? Smokeless tobacco: Never Vaping Use ??? Vaping Use: Every day ??? Substances: Nicotine Substance and Sexual Activity ??? Alcohol use: Yes Comment: occasionally ??? Drug use: No ??? Sexual activity: Yes Partners: Male control/protection: Surgical Other Topics Concern ??? Not on file Social History Narrative ??? Not on file BP 138/72 Pulse 72 Temp 97.1 ??F (36.2 ??C) (Tympanic) Resp 16 Ht 5' 4 (1.626 m) Wt 175 lb (79.4 kg) LMP (LMP Unknown) SpO2 98% BMI 30.04 kg/m?? Review of Systems Constitutional: Negative for chills and fever. HENT: Negative for congestion, ear pain, rhinorrhea and sore throat. Eyes: Negative for discharge. Respiratory: Negative for cough, chest tightness, shortness of breath and wheezing. Cardiovascular: Positive for chest pain. Negative for palpitations. Gastrointestinal: Negative for abdominal pain, diarrhea, nausea and vomiting. Genitourinary: Negative for difficulty urinating and menstrual problem. Musculoskeletal: Negative for arthralgias and myalgias. Skin: Negative for rash and wound. Neurological: [...] No cranial nerve deficit. Procedures Imaging Results XR CHEST 2 VIEWS (Final result) Result time 11/06/22 09:58:28 Final result by Cordell Echeverria MD (11/06/22 09:58:28) Impression: IMPRESSION: No acute cardiopulmonary abnormality. Borderline cardiomegaly. Narrative: EXAM DESCRIPTION: XR CHEST 2 VIEWS REASON FOR STUDY: MID CHEST PAIN X 3 DAYS TECHNIQUE: PA and lateral radiographic view(s) of the chest. COMPARISON: January 15, 2022 FINDINGS: LUNGS: Evidence of old granulomatous disease. No focal opacity, pleural effusion, or pneumothorax. HEART/MEDIASTINUM: Borderline cardiomegaly. Mediastinal and hilar contours appear normal. LINES/TUBES: None. BONES: No acute osseous abnormality. THIS IS AN ELECTRONICALLY VERIFIED FINAL REPORT 2022 9:55 AM - Electronically signed by Cordell Echeverria M.D. RB: IGNACIO Report ID: [id number] Reading Location: [place] [address] Labs Reviewed CMP (COMPREHENSIVE METABOLIC PANEL) - Abnormal; Notable for the following components: Result Value GLUCOSE 115 (*) CREATININE, BLOOD 0.55 (*) SGPT (ALT) 53 (*) All other components within normal limits TROPONIN I (TRP I) - Normal COMPLETE BLOOD COUNT (CBC) WITH DIFF Narrative: The following orders were created for panel order CBC with Diff [id number]. Procedure Abnormality Status --------- ------ CBC with Auto Differential[[id number]] Final result Please view results for these tests on the individual orders. EXTRA TUBES Narrative: The following orders were created for panel order Extra Tubes. Procedure Abnormality Status --------- ------ Blue Top Tube[[id number]] Final result Gold Top Tube[[id number]] Final result Please view results for these tests on the individual orders. URINALYSIS REFLEX IF INDICATED BY ABNORMAL RESULTS CBC WITH AUTO DIFFERENTIAL BLUE TOP TUBE GOLD TOP TUBE Labs Reviewed CMP (COMPREHENSIVE METABOLIC PANEL) - Abnormal; Notable for the following components: Result Value GLUCOSE 115 (*) CREATININE, BLOOD 0.55 (*) SGPT (ALT) 53 (*) All other components within normal limits TROPONIN I (TRP I) - Normal COMPLETE BLOOD COUNT (CBC) WITH DIFF Narrative: The following orders were created for panel order CBC with Diff [id number]. Procedure Abnormality Status --------- ------ CBC with Auto Differential[[id number]] Final result Please view results for these tests on the individual orders. EXTRA TUBES Narrative: The following orders were created for panel order Extra Tubes. Procedure Abnormality Status --------- ------ Blue Top Tube[[id number]] Final result Gold Top Tube[[id number]] Final result Please view results for these tests on the individual orders. URINALYSIS REFLEX IF INDICATED BY ABNORMAL RESULTS CBC WITH AUTO DIFFERENTIAL BLUE TOP TUBE GOLD TOP TUBE URINALYSIS REFLEX IF INDICATED BY ABNORMAL RESULTS Final Result XR CHEST 2 VIEWS Final Result IMPRESSION: No acute cardiopulmonary abnormality. Borderline cardiomegaly. Extra Tubes Final Result CBC with Diff [id number] Final Result Comprehensive Metabolic Panel (Cmp) [id number] Final Result Troponin I (Trp I) Final Result EKG 12 LEAD (Results Pending) ECG Report Time:831 Rhythm: Sinus rhythm Rate: 73 bpm Interpretation: Normal axis, normal intervals, no acute ST elevation. Compared to EKG dated 01/15/2022: No significant morphological changes. Medical Decision Making Amount and/or Complexity of Data Reviewed External Data Reviewed: labs, radiology and ECG. Labs: ordered. Radiology: ordered. ECG/medicine tests: ordered and independent interpretation performed. Clinical Impression 1. Chest pain, unspecified type Disposition: Discharged Differential diagnosis for chest pain includes common etiology such as myocardial ischemia, pulmonary emboli, pneumonia, pleuritis, bronchitis, pneumothorax, anxiety, panic attack, costochondritis and less common etiology such as esophageal rupture, GERD, peptic ulcer disease, aortic dissection, can cer Labs are relatively unremarkable. EKGs normal. Chest x-ray shows mild cardiomegaly. These results were reviewed with patient. She reports improvement of symptoms after IV Protonix and GI cocktail. She will be prescribed Pepcid for home. She also is requesting medication for anxiety as she feels as if she has increased stress. Will prescribe hydroxyzine. Recommended follow-up with primary care physician. The patient???s chest pain does not appear to come from any acute emergent cardiothoracic condition. The patient???s vital signs are normal. I have spoken with the patient at great length and they'recomfortable with discharge home and followup with a primary care physician as an outpatient. she issatting well at this time. The patient remained stable throughout their ED [...] the need for follow up. Cosigned by Lexa Linton MD at 11/09/2022 1:08 PM CDT * Noemi Wade RN - 2022 8:34 AM CDT Patient presents to ED with complaints of chest pain that has been present for about 3 days now. States she thought it was acid reflux so tired OTC medications to help with these symptoms but has hadno relief. States it feels like there is something caught in her chest. documented in this encounter Plan of Treatment Not on file documented as of this encounter Procedures Procedure Name Priority Date/Time Associated Diagnosis Comments URINALYSIS REFLEX IF INDICATED BY ABNORMAL RESULTS STAT 2022 9:57 AM CDT XR CHEST 2 VIEWS STAT 2022 9:41 AM CDT EXTRA TUBES STAT 2022 9:09 AM CDT GOLD TOP TUBE STAT 2022 9:09 AM CDT BLUE TOP TUBE STAT 2022 9:09 AM CDT CBC WITH AUTO DIFFERENTIAL STAT 2022 9:07 AM CDT TROPONIN I (TRP I) STAT 2022 9: 07 AM CDT CMP (COMPREHENSIVE METABOLIC PANEL) STAT 2022 9:07 AM CDT COMPLETE BLOOD COUNT (CBC) WITH DIFF STAT 2022 9:07 AM CDT EKG 12 LEAD STAT 2022 8:32 AM CDT EKG SCAN 2022 12:00 AM CDT documented in this encounter Results * URINALYSIS REFLEX IF INDICATED BY ABNORMAL RESULTS (2022 9:57 AM CDT) [facility] SPECIFIC GRAVITY 1.005 1.003 - 1.030 2022 10:44 AM CDT [facility] URINE PH 6.0 5.0 - 9.0 2022 10:44 AM CDT [facility] WBC ESTERASE Negative Negative 2022 10:44 AM CDT [facility] NITRITE Negative Negative 2022 10:44 AM CDT [facility] PROTEIN, RANDOM URINE Negative Negative 2022 10:44 AM CDT [facility] URINE GLUCOSE, QUAL Negative Negative 2022 10:44 AM CDT [facility] URINE KETONES Negative Negative 2022 10:44 AM CDT [facility] UROBILINOGEN Normal Normal mg/dL 2022 10:44 AM CDT [facility] URINE BLOOD Negative Negative brandon/ul 2022 10:44 AM CDT [facility] URINALYSIS COLOR Yellow 11/07/19 10:44 AM CDT [facility] URINALYSIS CLARITY Clear 2022 10:44 AM CDT [facility] Urine URINE SPECIMEN COLLECTION, CLEAN CATCH / Unknown Non-Phlebotomy Collection / Unknown 2022 9:57 AM CDT 2022 10:02 AM CDT us Viri Larry EMU FARMER, MACHINE MAINTENANCE SUPERVISOR URINE ORDERABLES Alicja l Result [facility] [address] [place] [address] * XR CHEST 2 VIEWS (2022 9:41 AM CDT) Anatomical Region Laterality Modality Chest N/A Digital Radiogra phy 2022 9:55 AM CDT Impressions 2022 9:58 AM CDT IMPRESSION: No acute cardiopulmonary abnormality. Borderline cardiomegaly. Narrative 2022 9:58 AM CDT EXAM DESCRIPTION: XR CHEST 2 VIEWS REASON FOR STUDY: MID CHEST PAIN X 3 DAYS ?? TECHNIQUE: PA and lateral ??radiographic view(s) of the chest. COMPARISON: January 15, 2022 FINDINGS: LUNGS: Evidence of old granulomatous disease. ?? No focal opacity, pleural effusion, or pneumothorax. ?? HEART/MEDIASTINUM: ??Borderline cardiomegaly. ??Mediastinal and hilar contours appear normal. LINES/TUBES: ??None. BONES: ??No acute osseous abnormality. THIS IS AN ELECTRONICALLY VERIFIED FINAL REPORT 2022 9:55 AM - Electronically signed by ??Cordell Echeverria M.D. RB: IGNACIO D: ??2022 9:55 AM T: ??2022 9:55 AM Report ID: [id number] Reading Location: ??[id number] Procedure Note Cordell Echeverria MD - 2022 EXAM DESCRIPTION: XR CHEST 2 VIEWS REASON FOR STUDY: MID CHEST PAIN X 3 DAYS TECHNIQUE: PA and lateral radiographic view(s) of the chest. COMPARISON: January 15, 2022 FINDINGS: LUNGS: Evidence of old granulomatous disease. No focal opacity, pleural effusion, or pneumothorax. HEART/MEDIASTINUM: Borderline cardiomegaly. Mediastinal and hilar contours appear normal. LINES/TUBES: None. BONES: No acute osseous abnormality. THIS IS AN ELECTRONICALLY VERIFIED FINAL REPORT 2022 9:55 AM - Electronically signed by Cordell Echeverria M.D. RB: IGNACIO Report ID: [id number] Reading Location: [id number] IMPRESSION: No acute cardiopulmonary abnormality. Borderline cardiomegaly. us Viri Larry APRN, CNP IMG DIAGNOSTIC ORDERA BLES Final Result * Gold Top Tube (2022 9:09 AM CDT) Blood No Phlebotomy Charged / Unknown 2022 9:09 AM CDT 2022 9:09 AM CDT Viri Larry APRN, CNP CHEMISTRY ORDERABLES Final Result Performing Organization Address [facility] Co de Phone Number [facility] [address] [place] [address] * Blue Top Tube (2022 9:09 AM CDT) Blood No Phlebotomy Charged / Unknown 2022 9:09 AM CDT 2022 9:09 AM CDT us Viri Larry APRN, CNP HEMATOLOGY ORDERABLES Final Result Performing Organization Address City/[facility]/ZIP Co de Phone Number [facility] [address] [place] [address] * CBC with Auto Differential (2022 9:07 AM CDT) WBC 6.78 4.00 - 12.00 10(3)/mcL 2022 9:12 AM CDT [facility] RBC 4.60 3.80 - 5.30 10(6)/mcL 2022 9:12 AM CDT [facility] HEMOGLOBIN (HGB) 13.6 12.0 - 15.8 g/dL 2022 9:12 AM CDT [facility] HEMATOCRIT (HCT) 41.1 36.0 - 47.0 % 2022 9:12 AM CDT [facility] MCV 89.3 82.0 - 96.0 fL 2022 9:12 AM CDT [facility] MCH 29.6 26.0 - 34.0 pg 2022 9:12 AM CDT [facility] MCHC 33.1 31.0 - 36.0 g/dL 2022 9:12 AM CDT [facility] PLATELET COUNT 294 140 - 440 10(3)/mcL 2022 9:12 AM CDT [facility] RDW 11.8 11.8 - 15.5 % 2022 9:12 AM CDT [facility] MPV 10.2 9.7 - 12.4 fL 2022 9:12 AM CDT [facility] NEUTROPHILS 64.2 47.0 - 73.0 % 2022 9:12 AM CDT [facility] LYMPHOCYTES 28.0 18.0 - 42.0 % 2022 9:12 AM CDT [facility] MONOCYTES 5.9 4.0 - 12.0 % 2022 9:12 AM CDT [facility] EOSINOPHILS 1.3 0.0 - 5.0 % 2022 9:12 AM CDT [facility] BASOPHILS 0.6 0.0 - 1.0 % 2022 9:12 AM CDT [facility] ABSOLUTE NEUTROPHILS 4.35 1.60 - 7.70 10(3)/[facility] 2022 9:12 AM CDT [facility] ABSOLUTE LYMPHOCYTES 1.90 1.30 - 3.20 10(3)/[facility] 2022 9:12 AM CDT [facility] ABSOLUTE MONOCYTES 0.40 0.20 - 1.00 10(3)/[facility] 2022 9:12 AM CDT [facility] ABSOLUTE EOSINOPHIL 0.09 0.00 - 0.40 10(3)/[facility] 2022 9:12 AM CDT [facility] ABSOLUTE BASOPHILS 0.04 0.00 - 0.10 10(3)/[facility] 2022 9:12 AM CDT [facility] NRBC PER 100 WBC 0 11/07/19 23 9:12 AM CDT [facility] Blood Venipuncture / Unknown 2022 9:07 AM CDT 2022 9:07 AM CDT us Viri Larry APRN, MACHINE MAINTENANCE SUPERVISOR HEMATOLOGY ORDERABLES Final Result Performing Organization Address City/[facility] Co de Phone Number [facility] [address] [place] [address] * Troponin I (Trp I) (2022 9:07 AM CDT) TROPONIN I <0.300 <=0.300 ng/mL 2022 9:34 AM CDT [facility] Blood Venipuncture / Unknown 2022 9:07 AM CDT 2022 9:07 AM CDT us Viri Larry APRN, MACHINE MAINTENANCE SUPERVISOR CHEMISTRY ORDERABLES Final Result [facility] [address] [place] [address] * (ABNORMAL) Comprehensive Metabolic Panel (Cmp) [id number] (2022 9:07 AM CDT) SODIUM 137 136 - 144 mmol/L 2022 9:32 AM CDT [facility] POTASSIUM 3.8 3.5 - 5.1 mmol/L 2022 9:32 AM CDT [facility] CHLORIDE 100 100 - 110 mmol/L 2022 9:32 AM CDT [facility] CO2, VENOUS 25 22 - 32 mmol/L 2022 9:32 AM CDT [facility] ANION GAP 15.8 8.0 - 20.0 mmol/L 2022 9:32 AM CDT [facility] GLUCOSE 115(H) 70 - 99 mg/dL 2022 9:32 AM CDT [facility] BUN 11 6 - 20 mg/dL 2022 9:32 AM CDT [facility] CREATININE, BLOOD 0.55(L) 0.60 - 1.10 mg/dL 2022 9:32 AM CDT [facility] BUN/CREATININE RATIO 20 12 - 20 ratio 2022 9:32 AM CDT [facility] TOTAL PROTEIN 7.2 6.0 - 8.3 g/dL 2022 9:32 AM CDT [facility] ALBUMIN 4.5 3.5 - 5.2 g/dL 2022 9:32 AM CDT [facility] Comment: The colormetric methods used for the determination of Albumin may lead to falsely elevated test results in patients suffering from renal failure or insufficiency due to interference with other proteins. A/G RATIO 1.7 1.0 - 2.0 2022 9:32 AM CDT [facility] CALCIUM 9.7 8.9 - 10.3 mg/dL 2022 9:32 AM CDT [facility] T BILI 0.4 <=1.2 mg/dL 2022 9:32 AM CDT [facility] SGOT (AST) 24 <=32 U/L 2022 9:32 AM CDT [facility] SGPT (ALT) 53(H) <=41 U/L 2022 9:32 AM CDT [facility] ALKALINE PHOSPHATASE 70 35 - 105 U/L 2022 9:32 AM CDT [facility] GFR, ESTIMATED >60 >=60 2022 9:32 AM CDT [facility] Comment: Creatinine Clearance is the preferred criteria for selecting drug dose adjustments in renally impaired patients. ??The GFR is provided as additional pertinent clinical information. GFR is reported in mL/min/1.73 sq m. Calculation based on the Chronic Kidney Disease Epidemiology Collaboration (CKD- EPI) equation refit without adjustment for race. GFR, EST. >60 >=60 023 9:32 AM CDT [facility] GFR, EST. NONAFRICAN >60 >=60 2022 9:32 AM CDT [facility] Blood Venipuncture / Unknown 2022 9:07 AM CDT 2022 9:07 AM CDT us Viri Larry EMU FARMER, MACHINE MAINTENANCE SUPERVISOR CHEMISTRY ORDERABLES Final Result [facility] [address] [place] [address] * EKG 12 LEAD (2022 8:32 AM CDT) Ventricular Rate 73 BPM EXTERNAL EKG Atrial Rate 73 BPM EXTERNAL EKG P-R Interval 188 ms EXTERNAL EKG QRS Duration 76 ms EXTERNAL EKG Q-T Duration 386 ms EXTERNAL EKG QTC CALCULATION 425 ms EXTERNAL EKG P Maple 0 degrees EXTERNAL EKG R Maple 8 degrees EXTERNAL EKG T Maple -5 degrees EXTERNAL EKG 2022 8:32 AM CDT Impressions EXTERNAL EKG - 11/12/2022 2:11 PM CDT Normal sinus rhythm Normal ECG No previous ECGs available Confirmed by Ryne Carroll ([id number]) on 11/12/2022 2:11:42 PM Narrative Procedure Note Ryne Hassan MD - 11/12/2022 IMPRESSION: Normal sinus rhythm Normal ECG No previous ECGs available Confirmed by Ryne Carroll ([id number]) on 11/12/2022 2:11:42 PM Lexa Linton MD IMG ECG ORDERABLES Fin al Result Performing Organization Address City/[facility]/ZIP Co de Phone Number EXTERNAL EKG * EKG SCAN (2022 12:00 AM CDT) 2022 us Provider Scan IMG ECG ORDERABLES Final Result SCAN documented in this encounter Visit Diagnoses Diagnosis Chest pain, unspecified type- Primary documented in this encounter Administered Medications Inactive Administered Medications - up to 3 most recent administrations Medication Order MAR Action Action Date Dose Rate Site aluminum & magnesium hydroxide-simethicone (MAALOX, MYLANTA) 200-200-20 MG/5ML SUSP 20 mL 20 mL, Oral, EVERY 6 HOURS PRN, Starting on Wed11/06/22 at 1126, Until Wed11/06/22 at 1430, Heartburn Given 2022 11:34 AM CDT 20 mL pantoprazole (PROTONIX) injection 40 mg 40 mg, Intravenous, ONCE, 1 dose, On Wed11/06/22 at 1130, Administer over 3 Minutes, Indications: Symptomatic Gastroesophageal Reflux DiseaseIndications:Symptomatic Gastroesophageal Reflux Disease Given 2022 11:11 AM CDT 40 mg documented in this encounter Active and Recently Administered Medications Times are shown in CDT. Scheduled Medication Order 11/04/2022 11/05/2022 2022 pantoprazole (PROTONIX) injection 40 mg (COMPLETED) 40 mg, Intravenous, ONCE, 1 dose, On Wed11/06/22 at 1130, Administer over 3 Minutes, Indications: Symptomatic Gastroesophageal Reflux Disease 1111 (Given - Provid er: Noemi Wade RN) PRN Medication Order 11/04/2022 11/05/2022 2022 aluminum & magnesium hydroxide-simethicone (MAALOX, MYLANTA) 200-200-20 MG/5ML SUSP 20 mL 20 mL, Oral, EVERY 6 HOURS PRN, Starting on Wed11/06/22 at 1126, Until Wed11/06/22 at 1430, Heartburn 1134 (Given - Provid er: Noemi Wade RN) documented in this encounter Care Teams Foam Cutting Supervisor Relationship Specialty Start Date End Date Apolinar Crowley MD [address] [place] [address] PCP - General Security Program Manager 11/06/22 Brayan Nazario MD #[address] [facility] [address] [place] [address] Consulting Physician General Surgery 01/15/22 documented as of this encounter
--- OUTSIDE RECORDS SUMMARY | 2024-04-27 18:04 | XMS_ITS | Encounter Summary ---
Author Organization [facility] Care Team Providers Care Heel Emery Buffer Name Role Phone Provider, None Primary Care Provider Brayan Barrett MD Unavailable Encounter Details Date Type Department Care Team (Latest Contact Info) Description 04/14/2022 Travel Social History Tobacco Use Types Packs/Day [...] Coronavirus/COVID-19? 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
--- OUTSIDE RECORDS SUMMARY | 2024-04-27 18:04 | XMS_ITS | Encounter Summary ---
Author Organization [facility] Address [address] [place] [address] Phone Care Team Providers Care Senior Telecommunications Technician Name Role Phone Provider, None Primary Care Provider Brayan Barrett MD Unavailable [phone] Apolinar Crowley MD Primary Care Provider [phone] Encounter Details Date Type Department Care Team (Late st Contact Info) Description 08/13/2021 [facility] [address] [place] [id number] Tani Britt, COMMERCIAL TRAILER TRUCK DRIVER, NUCLEAR WEAPONS MECHANICAL SPECIALIST [address] [place] [address] Pre-op testing (Primary Dx) Social History Tobacco [...] documented as of this encounter Results * HEMOGLOBIN & HEMATOCRIT (H&H) (08/25/2021 6:34 AM CDT) HEMOGLOBIN (HGB) 12.9 12.0 - 15.8 g/dL 08/25/2021 6:58 AM CDT [facility] HEMATOCRIT (HCT) 40.7 36.0 - 47.0 % 08/25/2021 6:58 AM CDT [facility] Blood Venipuncture / Unknown 08/25/2021 6:34 AM CDT 08/25/2021 6:54 AM CDT us Tani Britt COMMERCIAL TRAILER TRUCK DRIVER, NUCLEAR WEAPONS MECHANICAL SPECIALIST HEMATOLOGY ORDERAB LES Final Result [facility] [address] [place] [address] documented in this encounter Visit Diagnoses Diagnosis Pre-op testing- Primary Preoperative examination, unspecified documented in this encounter Care Teams Senior Telecommunications Technician Relationship Specialty Start Date End Date Provider, None [place] PCP - General 05/31/17 11/05/22 Apolinar Crowley MD [address] [facility] [address] [place] [address] PCP - General Plant Maintenance Technician 11/06/22 Brayan Nazario MD [address] [facility] [address] [place] [address] Consulting Physician General Surgery 01/15/22 documented as of this encounter
--- OUTSIDE RECORDS SUMMARY | 2024-04-27 18:04 | XMS_ITS | Encounter Summary ---
Author Organization [facility] Address [address] [place] [address] Phone Care Team Providers Care Backend Java Developer Name Role Phone Provider, None Primary Care Provider Unavailabl e Reason for Visit * Auth/Cert Specialty Diagnoses / Procedures Referred By Alma truong Referred To Contact Diagnoses INTERNAL DERANGEMENT LEFT KNEE Procedures ARTHROSCOPY KNEE Referral ID Status Reason Start Date Expiration Date Visits Re quested Visits Authorized [id number] 1 1 Encounter Details Date Type Department Care Team (Late st Contact Info) Description 08/27/2021 8:00 AM CDT Anesthesia Event [facility] Periop [address] [place] [address] Tani Britt APRN, LABORER [employer]ARM [address] [place] [address] Anesthesia Record Procedure Summary Procedure Name Responsible Anesthesiologist Anesthesia Start Time Anesthesia Stop Time LEFT KNEE ARTHROSCOPY, MEDIAL MENISCECTOMY (Left: Knee) Tani Britt APRN, LABORER [employer] 08/27/21 0800 08/27/21 0910 Events Date Time Event Comment 08/27/2021 0630 0800 An Start 0803 An Start Data 0804 ANASSESSCMPLT 0806 An Induction 0815 An LMA 0815 Anesthesia Ready 0905 Airway Removed 0905 Stop Data Collection 0905 Transort to Postop 0910 Handoff to RN I completed my SBAR handoff to the receiving nurse. Last vitals BP: 125/67 Temp: 37 ??C (98.6 ??F) Pulse: 88 Resp: 16 SpO2: 98 % 0910 An Stop Last vitals: BP : 125/67 Temp: 37 ??C (98.6 ??F) Pulse: 88 Resp: 16 SpO2: 98 % Meds Name Total lidocaine 1 % 100 mg HYDROmorphone 1 mg/mL 1 mg ondansetron 4 mg/2 mL 4 mg ceFAZolin (ANCEF) injection 2 g 2 g ketorolac (TORADOL) injection 30 mg 30 m g esmolol 10 mg/mL 40 mg lactated ringers infusion 600 mL * Agents Name FiO2 (%) FexpO2 (%) Inspired CO2 (mmHg) ETCO2 (mmHg) Inspired N2O (%) N2O (%) Sevoflurane (%) Inspired Sevoflurane (%) * Blood No blood administrations on file. Lines, Drains, and Airways Type Details Placement Removal RETIRED Peripheral IV Line - Single Lumen 08/27/21; 0550; median cubital vein (antecubital fossa), right; 22 gauge; 08/27/21; 0830 08/27/21 0550 by Radha Stone RN 08/27/21 0830 by Tani Britt APRN, CRNA RETIRED Peripheral IV Line - Single Lumen 08/27/21; 0806; no; metacarpal vein (top of hand), right; [id number] catheter system; 22 gauge; 08/27/21; 1134 08/27/21 0806 by Tani Britt APRN [employer] 08/27/21 1134 by Radha Stone RN RETIRED Incision 08/27/21; 0836; Left ; knee; arthroscopic puncture(s); (3 PUNCTURES); 12/25/21 (Removed & Completed by utility. See Epic RA 4054); 1746 (Removed & Completed by utility. See [facility] RA 4054) 08/27/21 0836 by Yumi Pedroza RN 12/25/21 174 by Akshat Motta documented in this encounter Social History Tobacco [...] OR Notes * Anesthesia Postprocedure Evaluation - Tani rBitt APRN, CRNA - 08/27/2021 9:30 AM CDT Patient: Cait Mathews Procedure Summary Date: 08/27/21 Room / Location: [facility] MAIN OR 02 / [facility] Anesthesia Start: 0800 Anesthesia Stop: 0910 Procedure: LEFT KNEE ARTHROSCOPY, MEDIAL MENISCECTOMY (Left Knee) Diagnosis: (INTERNAL DERANGEMENT LEFT KNEE, BUCKET HANDLE TEAR OF MEDIAL MENISCUS) Surgeons: Giuseppe Cortez MD Responsible Provider: Tani Britt APRN, CRNA Anesthesia Type: general ASA Status: 2 Anesthesia Type: general Last vitals Vitals Value Taken Time BP 125/67 08/27/21 1015 Temp 37 ??C (98.6 ??F) 08/27/21 1015 Pulse 88 08/27/21 1015 Resp 16 08/27/21 1015 SpO2 98 % 08/27/21 1015 Pain score: 0 Pain management: adequate Patient location during evaluation: PACU Patient participation: Sufficiently recovered to participate Level of consciousness: sleepy but conscious Cardiovascular status: acceptable Respiratory status: acceptable Hydration status: acceptable Comments: Vital signs on nursing flowsheet Anesthetic complications: no Airway patency: patent Nausea and Vomiting: none * Anesthesia Procedure Notes - Tani Britt APRN, CRNA - 08/27/2021 8:21 AM CDTAssociated Order(s): LMA LMA Staffing Performed: resident/LABORER [employer] Resident/LABORER [employer]IRY [employer]ARM: Tani Britt APRN, CRNA Airway Details Overall Difficulty: Easy Preoxygenated: Yes Ease of Mask Ventilation: Easy LMA Type: Disposable LMA Size: 3 Adequate seal established: Yes LMA placement confirmed by: bilateral breath sounds, CO2 detection Atraumatic LMA Placement * Anesthesia Preprocedure Evaluation - Tani Britt APRN, CRNA - 08/27/2021 6:30 AM CDT Anesthesia Evaluation Procedure Information Anesthesia Start Date/Time: 08/27/21 0800 Procedure: LEFT KNEE ARTHROSCOPY (Left Knee) Location: [facility] MAIN OR [facility] Surgeons: Giuseppe Cortez MD Patient summary reviewed and Nursing notes reviewed No history of anesthetic complications No family history of anesthesia reaction Allergies: No Known Allergies Patient allergies reviewed. Medications: Current Facility-Administered Medications: ??? fentaNYL (PF) (SUBLIMAZE) injection 25 mcg, 25 mcg, Intravenous, Q10 Min PRN, Geo Britt APRN, CRNA ??? HYDROMORPHONE HCL 2 MG/ML IJ SOLN, , , , ??? KETAMINE HCL 30 MG/3ML IJ SOSY, , , , ??? lactated ringers infusion, 50 mL/hr, Intravenous, Continuous, Giuseppe Cortez MD, Last Rate: 50 mL/hr at 08/27/21 0552, 50 mL/hr at 08/27/21 0552 ??? ondansetron (ZOFRAN) injection 4 mg, 4 mg, Intravenous, Once PRN, Tani Britt APRN, CRNA Facility-Administered Medications Ordered in Other Encounters: ??? HYDROmorphone (DILAUDID) injection, , Intravenous, ONCE (in OR), Tani Britt APRN, CRNA, 0.5 mg at 08/27/21 0821 ??? ketorolac (TORADOL) injection, , Intravenous, ONCE (in OR), Tani Britt APRN, CRNA, 30mg at 08/27/21 0816 ??? lidocaine 1 % injection, , Intravenous, ONCE (in OR), Tani Britt APRN, CRNA, 100 mg at 08/27/21 0816 ??? ondansetron (ZOFRAN) injection, , Intravenous, ONCE (in OR), Tani Britt APRN, CRNA, 4mg at 08/27/21 0822 Medications Prior to Admission: ibuprofen (MOTRIN) 800 MG Tablet, Take 1 Tablet by mouth every 8 hours. (Patient not taking: Reported on 08/13/2021), Disp: 20 Tablet, Rfl: 0 Patient medications reviewed. Airway Mallampati: II TM distance: <3 FB Neck ROM: full Dental - normal exam Pulmonary - normal exam breath sounds clear to auscultation (+) tobacco use Cardiovascular - negative ROS and normal exam Exercise tolerance: good Rhythm: regular Rate: normal Neuro/Psych (+) psychiatric history Comments: depression GI/Hepatic/Renal - negative ROS Endo/Other - negative ROS Risks, benefits, alternatives discussed with:patient. Anesthesia Plan ASA 2 general Additional Plan: Nerve block intravenous induction Anesthetic plan and risks discussed with Patient. Plan discussed with LABORER [employer] and surgeon. documented in this encounter Plan of Treatment Not on file documented as of this encounter Procedures Procedure Name Priority Date/Time Associated Diagnosis Comments LMA Routine 08/27/2021 8:21 AM CDT documented in this encounter Results * LMA (08/27/2021 8:21 AM CDT) Narrative Tani Britt APRN, CRNA - 08/27/2021 8:21 AM CDT Tani Britt APRN, CRNA ? 08/27/2021 ??8:21 AM LMA Staffing Performed: resident/LABORER [employer] Resident/LAB[employer]ER [employer]: Tani Britt APRN, CRNA Airway Details Overall Difficulty: ??Easy Preoxygenated: ??Yes Ease of Mask Ventilation: ??Easy LMA Type: ??Disposable LMA Size: ??3 Adequate seal established: ??Yes LMA placement confirmed by: ??bilateral breath sounds, ??CO2 detection Atraumatic LMA Placement Tani Britt APRN, CRNA ANESTHESIA ORDERAB LES Final Result documented in this encounter Visit Diagnoses Not on filedocumented in this encounter Administered Medications Inactive Administered Medications - up to 3 most recent administrations Medication Order MAR Action Action Date Dose Rate Site ceFAZolin (ANCEF) injection 2 g 2 g, Intravenous, ONCE, 1 dose, On Wed08/27/21 at 0600, Administer over 5 Minutes, If allergic to Ancef give Vancomycin 1gm IV, INTRA-OP, Indications: Perioperative PharmacoprophylaxisIndications:Tia operative Pharmacoprophylaxis Given 08/27/2021 8:11 AM CDT 2 g esmolol injection SOLN Intravenous, ONCE (in OR), Starting on Wed08/27/21 at 0839, Until Wed08/27/21 at 1027 Given 08/27/2021 8:39 AM CDT 40 mg HYDROmorphone (DILAUDID) injection Intravenous, ONCE (in OR), Starting on Wed08/27/21 at 0817, Until Wed08/27/21 at 1027 Given 08/27/2021 8:21 AM CDT 0.5 mg Given 08/27/2021 8:17 AM CDT 0.5 mg ketorolac (TORADOL) injection Intravenous, ONCE (in OR), Starting on Wed08/27/21 at 0816, Until Wed08/27/21 at 1027 Given 08/27/2021 8:16 AM CDT 3 0 mg lidocaine 1 % injection Intravenous, ONCE (in OR), Starting on Wed08/27/21 at 0816, Until Wed08/27/21 at 1027 Given 08/27/2021 8:16 AM CDT 1 00 mg ondansetron (ZOFRAN) injection Intravenous, ONCE (in OR), Starting on Wed08/27/21 at 0822, Until Wed08/27/21 at 1027 Given 08/27/2021 8:22 AM CDT 4 mg documented in this encounter Care Teams Backend Java Developer Relationship Specialty Start Date End Date Provider, None NIKA PCP - General 05/31/17 11/05/22 documented as of this encounter
--- OUTSIDE RECORDS SUMMARY | 2024-04-27 18:05 | XMS_ITS | Clinical Summary ---
Author Organization [facility] Address [address] [place] [address] Care Team Providers Care Meter Tester Name Role Phone Apolinar Crowley MD Primary Care Provider Yeni Rajput BOAT HAND Unavailable [phone] Allergies No known active allergies Medications escitalopram (LEXAPRO) 10 mg tablet Take 1 tablet (10 mg total) by mouth daily 90 tablet 1 02/01/2024 Active propranoloL (INDERAL) 20 mg tablet Take 1 tablet (20 mg total) by mouth 2 (two) times a day as needed (social anxiety, sweating, heart racing) 30 tablet 02/01/2024 Active Active Problems Problem Noted Date Diagnosed Date Annual physical exam 02/01/2024 Assessment & Plan (02/01/2024 4:57 PM CDT): Discussed lifestyle modifications, diet and exercise. Routine blood work ordered/reviewed today. Yearly vision and dental examinations. Former smoker 01/07/2023 Sensation of fullness in left ear 12/03/2022 Assessment & Plan (12/03/2022 4:52 PM CDT): New No sign of infection on exam Instructed to take zyrtec daily If no improvement can consider seeing ent F/u prn Generalized anxiety disorder 11/09/2022 Assessment & Plan (02/01/2024 4:47 PM CDT): -chronic, worsening sx at this time controlled -previously has taken Prozac and trazodone -not currently taking medication regularly But states sx are worse Having health anxiety as well Recommend start lexapro 10 mg every day Scheduling with therapist/psychologist CBT Assessment & Plan (06/08/2023 8:15 PM HAMMER MILL OPERATOR): -chronic, controlled -previously has taken Prozac and trazodone -not currently taking medication regularly -requesting paperwork for emotional support animal -letter provided to patient for emotional support animal supporting documentation Assessment & Plan (01/07/2023 3:45 PM CDT): STable at this time Not taking the lexapro and trazodone Will d/c now Can rtc if worsening Assessment & Plan (11/09/2022 3:57 PM CDT): Not at goal at this time Will start lexapro 10 mg every day Have pt rtc in 4 - 12 weeks Abnormal vaginal bleeding 08/19/2022 Assessment & Plan (09/07/2022 12:19 PM CDT): Will refer to obgyn for evaluation after tvus Has hx of partial hsitoryectomy Assessment & Plan (08/19/2022 5:21 PM CDT): Chronic, worsening Vaginal exam unremarkable Will get a transvaginal ultrasound, TSH, prolactin level, and CBC can consider master cosmetologist referral pending results Follow-up with PCP in 2 weeks Patellofemoral disorder of left knee 08/04/2022 Otitis media 07/05/2022 Assessment & Plan (07/05/2022 9:24 PM HAMMER MILL OPERATOR): Extended course of amoxicillin and trial of Cortisporin for external auditory canal inflammation. Call back if no improvement. Class 2 obesity due to exces s calories without serious comorbidity with body mass index (BMI) of 35.0 to 35.9 in adult 05/20/2021 Assessment & Plan (02/01/2024 4:46 PM CDT): Wt Readings from Last 3 Encounters: 02/01/24 89.9 kg (198 lb 1.6 oz) 06/08/23 86.6 kg (191 lb) 01/07/23 86.6 kg (191 lb) BMI Readings from Last 3 Encounters: 02/01/24 38.69 kg/m?? 06/08/23 37.30 kg/m?? 01/07/23 37.30 kg/m?? Not at goal of bmi <30 Continue diet and exercise BMI Follow-up includes: nutrition counseling and exercise counseling. Worsening as above Assessment & Plan (01/07/2023 3:27 PM CDT): Wt Readings from Last 3 Encounters: 12/03/22 85.7 kg (189 lb) 09/07/22 85.3 kg (188 lb) 08/19/22 87.5 kg (193 lb) BMI Readings from Last 3 Encounters: 12/03/22 36.91 kg/m?? 09/07/22 36.72 kg/m?? 08/19/22 37.69 kg/m?? Not at goal of bmi <30 Continue diet and exercise BMI Follow-up includes: nutrition counseling and exercise counseling. worsening Assessment & Plan (11/09/2022 3:55 PM CDT): Wt Readings from Last 3 Encounters: 09/07/22 85.3 kg (188 lb) 08/19/22 87.5 kg (193 lb) 06/05/22 87.5 kg (193 lb) BMI Readings from Last 3 Encounters: 09/07/22 36.72 kg/m?? 08/19/22 37.69 kg/m?? 06/05/22 37.69 kg/m?? Not at goal of bmi <30 Continue diet and exercise BMI Follow-up includes: nutrition counseling and exercise counseling. Assessment & Plan (09/07/2022 11:54 AM CDT): Wt Readings from Last 3 Encounters: 08/19/22 87.5 kg (193 lb) 06/05/22 87.5 kg (193 lb) 09/04/21 79.4 kg (175 lb) BMI Readings from Last 3 Encounters: 09/07/22 37.69 kg/m?? 08/19/22 37.69 kg/m?? 06/05/22 37.69 kg/m?? Not at goal of bmi <30 Continue diet and exercise BMI Follow-up includes: nutrition counseling and exercise counseling. Assessment & Plan (05/20/2021 8:03 AM HAMMER MILL OPERATOR): HPI: Condition is not at/near goal goal BMI <30 A&P: Healthy, high-protein, lower carbohydrate, lower fat lifestyle and exercise for 150min/week recommended Substitutions: Recommend tracking everything you put in your mouth on an vicky like [employer] or Vital Insight [employer] carries a zero net carb bread If you are looking for whole potatoes, like to use in soup or new potato shape/flavor, radishes are a great replacement If you are looking for mashed potatoes, riced cauliflower in the frozen bag section are a great replacement For pasta, try using zucchini noodles, lay them out on a cookie sheet and pat dry with a tea towel to try to remove as much moisture as possible. Heat your pasta sauce on the stove and put the noodles in for 30-45 seconds. If you leave them in much longer they will become mushy [place] and/or coconut flour instead of regular flour For pizza dough, try fathead pizza dough recipe online. To get a crispy crust, bake on one side for 8-12 min, then flip over and bake on the other side for 8-12 min, then put toppings on and bake until the cheese on top of pizza melts chaffles recipe online For ice cream, try the brand Enlightened To replace coffee creamer and make it low carb, use heavy creamer with sugar free Torani sweetener For chips, try Whisps or pork rinds For yogurt, try Two Good macanese yogurt Use Cinthya for recipe ideas. Type in low carb... Nonscarring hair loss 05/20/2021 Assessment & Plan (05/20/2021 8:04 AM HAMMER MILL OPERATOR): Will check thyroid, iron panel, hga1c. Had gestational diabetes. No new stressors or changes in life. Will rule out organic causes first Encounters Date Type Department Care Team Description 02/02/2024 Orders Only [facility] Primary Care at [address] [place] [id number] Apolinar Crowley MD Generalized anxiety disorder (Primary Dx); PTSD (post-traumatic stress disorder) 02/01/2024 4:45 PM CDT Office Visit [facility] Primary Care at [address] [place] [phone] Apolinar Crowley MD Annual physical exam (Primary Dx); Class 2 obesity due to excess calories without serious comorbidity with body mass index (BMI) of 35.0 to 35.9 in adult; Generalized anxiety disorder from Last 3 Months Immunizations Name Administration Dates Next Due DTP / HiB 05/15/1994,03/16/1994,01/05/1994 DTaP, Unspecified 12/30/1998,05/19/1995 HPV, Unspecified 12/02/2007,08/05/2007, 7 Hep B, Unspecified 02/28/1997,1993, 994 HiB 02/10/1995 IPV 12/30/1998 Influenza LAIV (Nasal) 03/04/2010 Influenza, Trivalent, Preser vative Free, Intramuscular 05/27/2011 Influenza, Unspecified 02/01/2024(Deferr ed: Patient Refused),12/31/2022(Deferred: Patient Refused),12/03/2022(Deferred: Patient Refused),05/10/2022(Deferred: Patient Refused),12/08/2021(Deferred: Patient Refused),02/07/2021(Deferred: Patient Refused),03/04/2010 MMR 12/30/1998,02/10/1995 Meningococcal Polysaccharide (Menomune) 01/19/2009 OPV 05/19/1995,03/16/1994,01/05/1994 Tdap 10/27/2018,04/11/2007 Surgical History Surgery Date Site/Laterality Comments SECTION HYSTERECTOMY uterus only TONSILLECTOMY Medical History Medical History Date Comments Hypertension During pregancy Family History * Patient is adopted Relation Name Status Comments Mother Other Social History Tobacco Use Types Packs/Day Years Used Date Smoking Tobacco: Former Cigarettes 0.5 10 0 05/10/2010 - 05/09/2020 Smokeless Tobacco: Never Tobacco Cessation:Counseling Given: Not Answered Alcohol Use Standard Drinks/Week Comments No 0 (1 standard drink = 0.6 oz pur e alcohol) PHQ-2 Answer Date Recorded PHQ-2 Total Score (If total score is 3 or more points, staff should administer the PHQ-9) 0 02/01/2024 Personal Safety Answer Date Recorded Getting School Help Needed Not on file 04/24 Comments No Sex and Gender Information Value Date Recorded Sex Assigned at Not on file Legal Sex Female 6:54 PM HAMMER MILL OPERATOR Gender Identity Not on file Sexual Orientation Not on file Obstetrics History Para Term AB IAB SAB Ectopic Multiple Livin g Live Births 1 Date Outcome GA Total Labor Labor/2nd/3rd Weight Sex Type Anes PTL Kate A1 A5 Name Clin Last Filed Vital Signs Vital Sign Reading Time Taken Comments Blood Pressure 110/80 02/01/2024 4:38 PM CDT Pulse 74 02/01/2024 4:38 PM CDT Temperature 36.8 ??C (98.3 ??F) 12/03/2022 4:29 PM CD T Respiratory Rate 16 02/01/2024 4:38 PM CDT Oxygen Saturation 99% 02/01/2024 4:38 PM CDT Inhaled Oxygen Concentration - - Weight 89.9 kg (198 lb 1.6 oz) 02/01/2024 4:38 P M CDT Height 152.4 cm (5') 02/01/2024 4:38 PM CDT Body Mass Index 38.69 02/01/2024 4:38 PM CDT Plan of Treatment Health Maintenance Due Date Last Done Comments Hepatitis C Screening 1993 Varicella Vaccines (1 of 2 - 13+ 2-dose series) 04/01/2010 Influenza Vaccine (#1) 2024 2, 03/04/2010, 03/04/2010 Depression Screening 01/31/2025 02/01/2024, 06/08/2023, 12/03/2022, Additional history exists Regular Well Visit/Exam 18-64 01/31/2025 02/01/2024 DTaP/Tdap/Td Vaccine (8 - Td or Tdap) 10/27/2028 10/27/2018, 04/11/2007, 12/30/1998, Additional history exists HPV Vaccines Completed 12/02/2007, 07/09, 03/23/2007 Pneumococcal vaccine <65 Aged Out No longer eligible based on patient's age to complete this topic Insurance [facility] CHOICE PLUS [facility] CHOICE PLUS Care Teams Meter Tester Relationship Specialty Start Date End Date Apolinar Crowley MD PCP - General Family Medicine 05/20/21 Yeni Rajput NP [address] [place] [address] [address] [place] [id number] Nurse Practitioner Gynecology 12/15/22
--- OUTSIDE RECORDS SUMMARY | 2024-04-27 18:05 | XMS_ITS | Encounter Summary ---
Author Organization [facility] Care Team Providers Care Logistics Support Name Role Phone Provider, None Primary Care Provider Unavailabl e Encounter Details Date Type Department Care Team (Latest Contact Info) Description 03/24/2020 Travel Social History Tobacco Use Types Packs/Day [...] or suspected to have Coronavirus / COVID-19? Yes 03/24/2020 11:21 AM COMPUTER ANALYST SUPERVISOR documented as of this encounter Plan of Treatment Not on file documented as of this encounter Visit Diagnoses Not on filedocumented in this encounter Additional Health Concerns Infection Onset Date Last Indicated Resolved Time COVID - 19 03/24/2020 03/24/2020 04/13/2020 12:1 9 AM COMPUTER ANALYST SUPERVISOR documented as of this encounter Care Teams Logistics Support Relationship Specialty Start Date End Date Provider, None [place] PCP - General 05/31/17 11/05/22 documented as of this encounter
--- OUTSIDE RECORDS SUMMARY | 2024-04-27 18:05 | XMS_ITS | Encounter Summary ---
Author Organization [facility] Address [address] [place] [address] Phone Care Team Providers Care Personal Loan Specialist Name Role Phone Provider, None Primary Care Provider Unavailabl e Reason for Visit * Reason Comments Knee Pain Encounter Details Date Type Department Care Team (Late st Contact Info) Description 02/16/2021 9:17 AM CDT - 02/16/2021 11:34 AM CDT Emergency [facility] [address] [place] [address] Amadou Huffman APRN, [facility] [address] [place] [address] Knee strain, left, initial encounter Discharge Disposition: Discharged to home [...] Sign Reading Time Taken Comments Blood Pressure 109/72 02/16/2021 9:13 AM CDT Pulse 66 02/16/2021 9:13 AM CDT Temperature 36.3 ??C (97.4 ??F) 02/16/2021 9:13 AM CD T Respiratory Rate 17 02/16/2021 9:13 AM CDT Oxygen Saturation 98% 02/16/2021 9:13 AM CDT Inhaled Oxygen Concentration - - Weight 79.4 kg (175 lb) 02/16/2021 9:13 AM CDT Height 152.4 cm (5') 02/16/2021 9:13 AM CDT Body Mass Index 34.18 02/16/2021 9:13 AM CDT documented in this encounter Discharge Instructions * Discharge Instructions* Amadou Huffman, GROUND SERVICES INSTRUCTOR, [facility] - 02/16/2021 11:16 AM CDT Images from the original note were not included. Treating Strains and Sprains Strains and sprains happen when muscles or other soft tissues near your bones stretch or tear. These injuries can cause bruising, swelling, and pain. Treatment may depend on how bad your injury is. To ease your discomfort and speed the healing of your strain or sprain, protect the injured area and follow the tips below. Remember, a strain or sprain can take 6 to 8 weeks to heal. Important note Don't give aspirin to children or teens without discussing it with your healthcare provider first. It can cause a life threatening illness. Ice first, heat later ?? Use ice for the first 24 to 72 hours after injury. Ice helps prevent swelling and reduce pain. Don't put ice directly on your skin. To protect your skin and prevent skin damage, wrap the bag of ice in a??clean, thin??towel or cloth. Ice the injury for no more than 20 minutes at a time every 2 to3 hours. ?? Apply heat after the first?? 72 hours, once the swelling has gone down as directed by your healthcare provider. Heat relaxes muscles and increases blood flow. Soak the injured area in warm water or use a heating pad set on low for no more than 15 minutes at a time. Wrap and elevate ?? Wrap an injured limb firmly with an elastic bandage. This provides support and helps prevent swelling. Don???t wear an elastic bandage overnight. Watch for tingling, numbness, or increased pain. Remove the bandage immediately if any of these occurs. ?? Elevate the injured area to help reduce swelling and throbbing. It???s best to raise an injured limb above the level of your heart. To help soothe pain and swelling, ice, bandage, and raise the injured area. Medicines ?? Wvrb-ecf-uhnyduc medicines such as acetaminophen or ibuprofen can help reduce pain. Some also help reduce swelling. ?? Take medicine only as directed. ?? Rest the area even if medicines are controlling the pain. Rest ?? Rest the injured area by not using it for 24 hours. ?? When you???re ready, return slowly to your normal activities. Rest the injured area often. ?? Don???t use or walk on an injured limb if it hurts. [employer] last reviewed this educational content on 11/07/2020 ?? [id number] [employer]. All rights reserved. This information is not intended as a substitute for professional medical care. Always follow your healthcare professional's instructions. documented in this encounter Medications at Time of Discharge ibuprofen (MOTRIN) 800 MG Tablet Take 1 Tablet by mouth every 8 hours. 20 Tablet 02/16/2021 01/30/2022 documented as of this encounter ED Notes * Vijaya Quintanilla RN - 02/16/2021 11:32 AM CDT Knee immobilizer and crutches provided to patient per PCT. Patient demonstrates appropriate crutch use. Questions and concerns addressed. Patient discharged. Discharge instructions and patient educational material reviewed with patient; questions and concerns addressed; patient verbalizes understanding, using teach back. Patient was given one prescription. Patient discharged per ambulatory mode with crutches with boyfriend as responsible libertarian. * Vijaya Quintanilla RN - 02/16/2021 11:05 AM CDT Pt medicated per provider orders. Pt educated on intended effects and side effects of medication and verbalized understanding, able to provide teach back of education. * Vijaya Quintanilla RN - 02/16/2021 10:50 AM CDT Patient refused Toradol injection, requesting for PO instead. Juana Huffman APN updated. * Vijaya Quintanilla RN - 02/16/2021 10:25 AM CDT X-ray to bedside. * Amadou Huffman APN, [facility] - 02/16/2021 9:40 AM CDT Chief Complaint Patient presents with ??? Knee Pain Patient presents for evaluation of left knee pain since 0200 this morning. She states she was jumping on a trampoline and attempted to do a flip. She states she landed on her feet and felt pain in her left knee. Pain is constant, sharp, shooting, 10/10 in severity. Pain is primarily in medial and posterior aspect of the knee and shoots down posterior aspect of left lower leg. She has decreased range of motion in the affected joint. Movement and weight-bearing make her pain worse. She has not taken any medication for symptoms. She was able to ambulate into the Department today. She states no chance of as she has a hx of hysterectomy. No current facility-administered medications for this encounter. Current Outpatient Medications Medication Sig Dispense Refill ??? ibuprofen (MOTRIN) 800 MG Tablet Take 1 Tablet by mouth every 8 hours. 20 Tablet 0 No Known Allergies Past Medical History Positives Diagnosis Date ??? Depression Past Surgical History: Procedure Laterality Date ??? SECTION ??? HYSTERECTOMY ??? TONSILLECTOMY Social History Socioeconomic History ??? Marital status: Single Spouse name: Not on file ??? Number of children: Not on file ??? Years of education: Not on file ??? Highest education level: Not on file Occupational History ??? Not on file Tobacco Use ??? Smoking status: Current Every Day Smoker Packs/day: 0.50 ??? Smokeless tobacco: Never Used Substance and Sexual Activity ??? Alcohol use: Yes Comment: occasionally ??? Drug use: No ??? Sexual activity: Not on file Other Topics Concern ??? Not on file Social History Narrative ??? Not on file Social Determinants of Health Social determinant risk not applicable to this patient. BP 109/72 Pulse 66 Temp 97.4 ??F (36.3 ??C) (Tympanic) Resp 17 Ht 5' (1.524 m) Wt 175 lb (79.4 kg) LMP (LMP Unknown) SpO2 98% BMI 34.18 kg/m?? Review of Systems Constitutional: Negative for activity change, chills, diaphoresis, fatigue and fever. HENT: Negative for congestion, dental problem, drooling, ear discharge, ear pain, facial swelling, mouth sores, rhinorrhea, sinus pressure, sneezing, sore throat, tinnitus and trouble swallowing. Eyes: Negative for photophobia, pain, discharge, redness, itching and visual disturbance. Respiratory: Negative for cough, chest tightness, shortness of breath, wheezing and stridor. Cardiovascular: Negative for chest pain, palpitations and leg swelling. Gastrointestinal: Negative for abdominal distention, abdominal pain, blood in stool, constipation, diarrhea, nausea and vomiting. Endocrine: Negative for cold intolerance, heat intolerance, polydipsia, polyphagia and polyuria. Genitourinary: Negative for decreased urine volume, difficulty urinating, dysuria, flank pain, frequency, hematuria, menstrual problem, pelvic pain, urgency, vaginal bleeding, vaginal discharge and vaginal pain. Musculoskeletal: Positive for arthralgias. Negative for back pain, gait problem, joint swelling, myalgias and neck pain. Reports left knee pain Skin: Negative for color change, pallor, rash and wound. Allergic/Immunologic: Negative for immunocompromised state. Neurological: Negative for dizziness, tremors, seizures, speech difficulty, weakness, light-headedness, numbness and headaches. Hematological: Negative for adenopathy. Does not bruise/bleed easily. Psychiatric/Behavioral: Negative for agitation, confusion, decreased concentration, hallucinations and suicidal ideas. The patient is not nervous/anxious. Physical Exam Vitals and nursing note reviewed. Constitutional: General: She is not in acute distress. Appearance: She is well-developed. She is not diaphoretic. HENT: Head: Normocephalic and atraumatic. Right Ear: External ear normal. Left Ear: External ear normal. Nose: Nose normal. Mouth/Throat: Pharynx: No oropharyngeal exudate. Eyes: General: No scleral icterus. Right eye: No discharge. Left eye: No discharge. Conjunctiva/sclera: Conjunctivae normal. Pupils: Pupils are equal, round, and reactive to light. Neck: Thyroid: No thyromegaly. Vascular: No JVD. Trachea: No tracheal deviation. Cardiovascular: Rate and Rhythm: Normal rate and regular rhythm. Heart sounds: Normal heart sounds. No murmur heard. No friction rub. No gallop. Pulmonary: Effort: Pulmonary effort is normal. No respiratory distress. Breath sounds: Normal breath sounds. No stridor. No wheezing or rales. Chest: Chest wall: No tenderness. Abdominal: General: Bowel sounds are normal. There is no distension. Palpations: Abdomen is soft. There is no mass. Tenderness: There is no abdominal tenderness. There is no guarding or rebound. Musculoskeletal: General: Tenderness present. Normal range of motion. Cervical back: Normal range of motion and neck supple. Comments: Tenderness noted in medial aspect of left knee There is no deformity or significant swelling in left knee Decreased active ROM of left knee 2/2 pain She is able to tolerate full passive extension of left knee and flexion to about 90 degrees Lymphadenopathy: Cervical: No cervical adenopathy. Skin: General: Skin is warm and dry. Coloration: Skin is not pale. Findings: No erythema or rash. Neurological: Mental Status: She is alert and oriented to person, place, and time. Cranial Nerves: No cranial nerve deficit. Motor: No abnormal muscle tone. Coordination: Coordination normal. Deep Tendon Reflexes: Reflexes are normal and symmetric. Reflexes normal. Psychiatric: Behavior: Behavior normal. Thought Content: Thought content normal. Judgment: Judgment normal. Procedures Imaging Results XR KNEE 3 VIEWS LEFT (Final result) Result time 02/16/21 11:09:57 Final result by Tavares Huff DO (02/16/21 11:09:57) Impression: IMPRESSION: 1. No definite evidence of acute displaced fracture or dislocation involving the left knee. 2. Small suprapatellar joint effusion. If there is clinical concern for underlying ligamentous injury, then further evaluation with MRI is recommended. Narrative: EXAM DESCRIPTION: XR KNEE 3 VIEWS LEFT REASON FOR STUDY: left kne pain patient landed on knee while doing a flip on trampoline at 0200 hours this morning. TECHNIQUE: 3 radiographic views acquired of the left knee. COMPARISON: None FINDINGS: There is no definite evidence of acute fracture or dislocation involving the left knee. There is a small suprapatellar joint effusion. THIS IS AN ELECTRONICALLY VERIFIED FINAL REPORT 02/16/2021 11:06 AM - Electronically signed by Tavares Huff D.O. PS: PS Report ID: [id number] Reading Location: [place] [id number] XR KNEE 3 VIEWS LEFT Final Result IMPRESSION: 1. No definite evidence of acute displaced fracture or dislocation involving the left knee. 2. Small suprapatellar joint effusion. If there is clinical concern for underlying ligamentous injury, then further evaluation with MRI is recommended. [facility] Coding Clinical Impression 1. Knee strain, left, initial encounter 1120 This is a 25 yr old female who presented with left knee pain. X-ray was negative for fracture.Provided with knee immobilizer and crutches. She should follow up with ortho this week. Advised on RICE therapy. I have personally reviewed all diagnostic data with the patient. Patient is stable at time of discharge. The patient was instructed to follow up outpatient as outlined on their dischargeinstructions for further evaluation and treatment. Instructions were provided to return for worsening symptoms. The patient verbalized understanding of care instructions and is in agreement with planof care. The patient will be discharged on the following medications: ibuprofen Cosigned by Ansley Donahue MD at 02/24/2021 6:57 AM CDT * Vijaya Quintanilla RN - 02/16/2021 9:32 AM CDT Patient to ED room 3 via wheelchair with c/o left knee pain. Reports attempting to do a flip on thetrampoline early this morning when she landed on her left knee. States she is unable to bear weightand straighten her leg. Ice pack provided to patient. Awaiting provider. * Charlie Klein RN - 02/16/2021 9:15 AM CDT Pt to triage with c/o left knee pain. States that around 0200 this morning she attempted to do a front flip on a trampoline and landed on her left knee. States she was unable to get up after the incident. Pt liimping toward triage in visible distress upon initial assessment. Pt placed in w/c. States pain is 8 at rest and 10 when standing. Denies any other sx at this time. documented in this encounter Plan of Treatment Not on file documented as of this encounter Procedures Procedure Name Priority Date/Time Associated Diagnosis Comments XR KNEE 3 VIEWS LEFT STAT 02/16/2021 10:25 AM CDT documented in this encounter Results * XR KNEE 3 VIEWS LEFT (02/16/2021 10:25 AM CDT) Anatomical Region Laterality Modality LOWER EXTREMITY, knee Left Digital Ra diography 02/16/2021 11:0 6 AM CDT Impressions 02/16/2021 11:09 AM CDT IMPRESSION: ?? 1. ??No definite evidence of acute displaced fracture or dislocation involving the left knee. 2. ??Small suprapatellar joint effusion. ??If there is clinical concern for underlying ligamentous injury, then further evaluation with MRI is recommended. Narrative 02/16/2021 11:09 AM CDT EXAM DESCRIPTION: ? XR KNEE 3 VIEWS LEFT REASON FOR STUDY: ?? left kne pain patient landed on knee while doing a flip on trampoline at 0200 hours this morning. TECHNIQUE: ?? 3 radiographic views acquired of the left knee. COMPARISON: ?? None FINDINGS: ??There is no definite evidence of acute fracture or dislocation involving the left knee. ??There is a small suprapatellar joint effusion. THIS IS AN ELECTRONICALLY VERIFIED FINAL REPORT 02/16/2021 11:06 AM - Electronically signed by Tavares Huff D.O. PS: PS D: ??02/16/2021 11:06 AM T: ??02/16/2021 11:06 AM Report ID: [id number] Reading Location: ??[id number] Procedure Note Tavares Huff DO - 02/16/2021 EXAM DESCRIPTION: XR KNEE 3 VIEWS LEFT REASON FOR STUDY: left kne pain patient landed on knee while doing a flip on trampoline at 0200 hours this morning. TECHNIQUE: 3 radiographic views acquired of the left knee. COMPARISON: None FINDINGS: There is no definite evidence of acute fracture or dislocation involving the left knee. There is a small suprapatellar joint effusion. THIS IS AN ELECTRONICALLY VERIFIED FINAL REPORT 02/16/2021 11:06 AM - Electronically signed by Tavares Huff D.O. PS: PS Report ID: [id number] Reading Location: [id number] IMPRESSION: 1. No definite evidence of acute displaced fracture or dislocation involving the left knee. 2. Small suprapatellar joint effusion. If there is clinical concern for underlying ligamentous injury, then further evaluation with MRI is recommended. Amadou Huffman APRN, [facility] IMG DIAGNOSTIC ORDERABL ES Final Result documented in this encounter Visit Diagnoses Diagnosis Knee strain, left, initial encounter- Primary documented in this encounter Administered Medications Inactive Administered Medications - up to 3 most recent administrations Medication Order MAR Action Action Date Dose Rate Site ibuprofen (MOTRIN) tablet 800 mg 800 mg, Oral, ONCE, 1 dose, On 02/16/21 at 1130 Given 02/16/2021 11:04 AM CDT 800 mg documented in this encounter Active and Recently Administered Medications Times are shown in CDT. Scheduled Medication Order 02/14/2021 02/15/2021 02/16/2021 ibuprofen (MOTRIN) tablet 800 mg (COMPLETED) 800 mg, Oral, ONCE, 1 dose, On 02/16/21 at 1130 1104 (Given - Provid er: Vijaya Quintanilla RN) documented in this encounter Care Teams Personal Loan Specialist Relationship Specialty Start Date End Date Provider, None [place] PCP - General 05/31/17 11/05/22 documented as of this encounter
--- OUTSIDE RECORDS SUMMARY | 2024-04-27 18:05 | XMS_ITS | Referral Summary ---
Author Organization [facility] Address [address] [place] [address] Care Team Providers Care Plastic Design Applier Name Role Phone Apolinar Crowley MD Primary Care Provider [phone] Yeni Rajput INDUSTRIAL MACHINE ASSEMBLER Unavailable [phone] Encounters Date Type Department Care Team Description 02/02/2024 Orders Only [facility] Primary Care at [address] [place] [id number] Apolinar Crowley MD Generalized anxiety disorder (Primary Dx); PTSD (post-traumatic stress disorder) 02/01/2024 4:45 PM CDT Office Visit [facility] Primary Care at [address] [address] Apolinar Crowley MD Annual physical exam (Primary Dx); Class 2 obesity due to excess calories without serious comorbidity with body mass index (BMI) of 35.0 to 35.9 in adult; Generalized anxiety disorder from Last 3 Months Allergies No known active allergies Medications escitalopram [...] CBT Assessment & Plan (06/08/2023 8:15 PM [employer]): -chronic, controlled -previously has taken Prozac and [...] TSH, prolactin level, and CBC can consider cooling system operator referral pending results Follow-up with PCP in 2 weeks 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 Assessment & Plan (05/20/2021 8:03 AM [employer]): HPI: Condition is not at/near goal goal BMI <30 A&P: Healthy, high-protein, lower carbohydrate, lower fat lifestyle and exercise for 150min/week recommended Substitutions: Recommend tracking everything you put in your mouth on an vicky like [employer] or [employer] carries a zero net carb bread [...] in much longer they will become mushy [place] and/or coconut flour instead of regular flour [...] pork rinds For yogurt, try Two Good slovak yogurt Use Pinterest for recipe ideas. Type in low carb... Nonscarring hair loss 05/20/2021 Assessment & Plan (05/20/2021 8:04 AM [employer]): Will check thyroid, iron panel, hga1c. Had gestational diabetes. No new stressors or changes in life. Will rule out organic causes first Immunizations Name Administration Dates Next Due DTP / HiB 05/15/1994,03/16/1994,01/05/1994 DTaP, Unspecified 12/30/1998,05/19/1995 HPV, Unspecified 12/02/2007,08/05/2007, 7 Hep B, Unspecified 02/28/1997,1993, 994 HiB 02/10/1995 IPV 12/30/1998 Influenza LAIV (Nasal) 03/04/2010 Influenza, Trivalent, Preser vative Free, Intramuscular 05/27/2011 Influenza, Unspecified 02/01/2024(Deferr ed: Patient Refused),12/31/2022(Deferred: Patient Refused),12/03/2022(Deferred: Patient Refused),05/10/2022(Deferred: Patient Refused),12/08/2021(Deferred: Patient Refused),02/07/2021(Deferred: Patient Refused),03/04/2010 MMR 12/30/1998,02/10/1995 Meningococcal Polysaccharide (Menomune) 01/19/2009 OPV 05/19/1995,03/16/1994,01/05/1994 Tdap 10/27/2018,04/11/2007 Social History Tobacco Use Types Packs/Day Years [...] on file Legal Sex Female 6:54 PM [employer] Gender Identity Not on file Sexual Orientation [...] 02/01/2024 4:38 PM CDT Plan of Treatment Not on file Insurance [facility] [place] [place] [id number] [facility] CHO[employer] PLUS Care Teams Plastic Design Applier Relationship Specialty Start Date End Date Apolinar Crowley MD PCP - General Family Medicine 05/20/21 Yeni Rajput NP [address] [place] [address] [place] [address] Nurse Practitioner Gynecology 12/15/22
--- OUTSIDE RECORDS SUMMARY | 2024-04-27 18:05 | XMS_ITS | Encounter Summary ---
Author Organization [facility] Address [address] [place] [address] Phone Care Team Providers Care Small Animal Caretaker Name Role Phone Provider, None Primary Care Provider Unavailabl e Reason for Visit * Reason Comments Headache Encounter Details Date Type Department Care Team (Late st Contact Info) Description 03/24/2020 11:20 AM COMMUNITY INTEGRATION SPECIALIST Urgent Care Visit [facility] [address] [place] [address] Alexus Rodriguez APRN, NURSING SECRETARY [address] [place] [address] Exposure to COVID-19 virus (Primary Dx); Loss of taste; Loss of smell Discharge Disposition: Discharged to home or Selfcare [...] Coronavirus / COVID-19? Yes 03/24/2020 11:21 AM COMMUNITY INTEGRATION SPECIALIST documented as of this encounter Last Filed Vital Signs Vital Sign Reading Time Taken Comments Blood Pressure 124/70 03/24/2020 11:32 AM COMMUNITY INTEGRATION SPECIALIST Pulse 84 03/24/2020 11:32 AM COMMUNITY INTEGRATION SPECIALIST Temperature 37.2 ??C (98.9 ??F) 03/24/2020 11:[address] Respiratory Rate 20 03/24/2020 11:32 AM COMMUNITY INTEGRATION SPECIALIST Oxygen Saturation 98% 03/24/2020 11:32 AM COMMUNITY INTEGRATION SPECIALIST Inhaled Oxygen Concentration - - Weight 77.1 kg (170 lb) 03/24/2020 11:32 AM COMMUNITY INTEGRATION SPECIALIST Height - - Body Mass Index 33.2 05/27/2018 10:11 AM COMMUNITY INTEGRATION SPECIALIST documented in this encounter Patient Instructions * Patient Instructions* Alexus Rodriguez APN, JUSTINA - 03/24/2020 11:20 AM COMMUNITY INTEGRATION SPECIALIST Images from the original note were not included. Care at Home ??Patients with suspected or confirmed Novel Coronavirus (COVID - 19) ?? Stay at home except to get urgent medical care or medical care as advised by your?? healthcare provider ? Do not go to work, school, or public places ? Avoid public transportation, ride sharing services (like [employer] or [employer]) or taxis ?? Separate yourself from other people and animals in your home as much as possible ? Stay in a specific room with a separate bathroom, if possible, and away from others in your home ? Restrict contact with pets and other animals just like you would people ?? Call ahead before visiting your doctor ? Tell your healthcare provider you may have or do have Coronavirus (COVID-19) ?? Wear a face mask ? If you do need to visit your healthcare provider, put on facemask before entering healthcare providers office ?? Cover your cough and sneeze ? Throw tissues in the garbage can immediately ? Wash hands with soap and water for 20 seconds or hand director channel with 60-90% alcohol ?? Clean your hands often ? Use soap and water or hand director channel with 60% - 90% alcohol, covering all surfaces of your hands and rubbing them together until they feel dry ?? Avoid sharing personal household items ? Do not share dishes, drinking glasses, utensils, towels, or bedding with other people or pets in your home. After using these items, wash thoroughly with soap and water. Whenever possible wash laundry with hot water ?? Clean all high touch surfaces every day ? This includes counters, tabletops, doorknobs, fixtures, toilets, phones, keyboards, tablets, and bedside tables. Use a household cleaning spray or wipe according to label instructions ?? Monitor your symptoms ? Seek medical attention if you feel worse. Call office or hospital before leaving home Discontinuing Home Isolation?? At least 3 days have passed since you recovered ?? Recovered?? is when you no longer have a fever without the use of fever- reducing medications and you have improvement in respiratory symptoms (e.g., cough, shortness of breath) AND at least 7 days have passed since your symptoms first appeared ?? For more information: https://www.cdc.gov/coronavirus/2019-ncov/hcp/exvjrgqx-nuqmpfi-fpewjx.html?? COVID was NEGATIVE today. Continue to monitor the symptoms If you have had close positive exposure (family member) it is advised that you self quarantine as recommended by the CDC. If you experience worsening of symptoms go to the ER for evaluation. You may follow up with PCP if symptoms do not improve. Care at home: Comfort care: Tylenol or ibuprofen for fever or body aches. Decongestants for congestion: such as flonase nasal spray, nasacort nasal spray, or an allergy medication such as zytrec. Mucinex for congestion Delysm or robitussin for the cough. You can even try honey with hot tea or on its own. Jeyson vapo rub on chest or feet at night Cool mist vaporizer at night in bedroom Increase fluid intake See family doctor if symptoms worsen or fail to resolve. UNITY INTEGRATION SPECIALIST documented in this encounter Progress Notes * Lisa Laird, HOLLY - 03/24/2020 11:20 AM CST Cait Mathews complains of Patient complains of headache since 6 days ago and loss of taste andsmell since yesterday. Patient recently exposed to Covid. Headache This is a new problem. The current episode started in the past 7 days. The pain is at a severity of0/10. The patient is experiencing no pain. She has tried acetaminophen for the symptoms. The treatment provided no relief. Today's Review of Systems Neurological: Positive for headaches. UNITY INTEGRATION SPECIALIST * Alexus Rodriguez APN, JUSTINA - 03/24/2020 11:20 AM CST Subjective: Chief complaint and all history documented by ancillary staff, and any copy/pasted information werereviewed and verified, with additions or corrections, as appropriate. Available past family, social, medical history was reviewed. Cait Mathews is a 24 y.o. female in the clinic for loss of taste and smell. Symptoms started 2days ago. Patient has taken nothing for the symptoms Patient states positive exposure to COVID Patient has been afebrile. Patient denies cough, SOB, chest tightness, N,V,D. Review of Systems Constitutional: Positive for fatigue. Neurological: Positive for headaches. Objective: Physical Exam Vitals signs and nursing note reviewed. Constitutional: General: She is not in acute distress. Appearance: She is not ill-appearing. HENT: Right Ear: Tympanic membrane and ear canal normal. Left Ear: Tympanic membrane and ear canal normal. Mouth/Throat: Pharynx: No posterior oropharyngeal erythema. Cardiovascular: Rate and Rhythm: Normal rate. Pulmonary: Effort: Pulmonary effort is normal. Breath sounds: Normal breath sounds. Neurological: General: No focal deficit present. Mental Status: She is alert and oriented to person, place, and time. Psychiatric: Mood and Affect: Mood normal. Vitals: 03/24/20 1132 BP: 124/70 BP Location: Left Arm BP Position: Sitting BP Cuff Size: Regular Pulse: 84 Resp: 20 Temp: 98.9 ??F (37.2 ??C) TempSrc: Oral SpO2: 98% Weight: 170 lb (77.1 kg) Assessment and Plan See Diagnoses, Orders, Follow-up, and Instructions Diagnoses and all orders for this visit: Exposure to COVID-19 virus - POCT SARS ANTIGEN SOBIA Loss of taste - POCT SARS ANTIGEN SOBIA Loss of smell - POCT SARS ANTIGEN SOBIA COVID was NEGATIVE today. Continue to monitor the symptoms If you have had close positive exposure (family member) it is advised that you self quarantine as recommended by the CDC. If you experience worsening of symptoms go to the ER for evaluation. You may follow up with PCP if symptoms do not improve. Care at home: Comfort care: Tylenol or ibuprofen for fever or body aches. Decongestants for congestion: such as flonase nasal spray, nasacort nasal spray, or an allergy medication such as zytrec. Mucinex for congestion Delysm or robitussin for the cough. You can even try honey with hot tea or on its own. Jeyson vapo rub on chest or feet at night Cool mist vaporizer at night in bedroom Increase fluid intake See family doctor if symptoms worsen or fail to resolve. AVS from today was printed, discussed with patient/family and given to patient/family UNITY INTEGRATION SPECIALIST documented in this encounter Plan of Treatment Not on file documented as of this encounter Procedures Procedure Name Priority Date/Time Associated Diagnosis Comments POCT SARS ANTIGEN SOBIA Routine 03/24/2020 12:27 PM COMMUNITY INTEGRATION SPECIALIST Exposure to COVID-19 virus Loss of taste Loss of smell documented in this encounter Results * POCT SARS ANTIGEN SOBIA (03/24/2020 12:27 PM COMMUNITY INTEGRATION SPECIALIST) POC SARS ANTIGEN SOBIA Negative Negative POC SARS ANTIGEN SOBIA CONTROL Primary Substance Abuse Counselor Pass Swab 03/24/2020 12:2 7 PM COMMUNITY INTEGRATION SPECIALIST Result [facility] Alexus Rodriguez BARBER SHOP OPERATOR, NURSING SECRETARY POINT OF CARE LOREE TINNguyen (MANUAL) Final Result documented in this encounter Visit Diagnoses Diagnosis Exposure to COVID-19 virus- Primary Loss of taste Disturbances of sensation of smell and taste Loss of smell Disturbances of sensation of smell and taste documented in this encounter Care Teams Small Animal Caretaker Relationship Specialty Start Date End Date Provider, None [place] PCP - General 05/31/17 11/05/22 documented as of this encounter
--- OUTSIDE RECORDS SUMMARY | 2024-04-27 18:06 | XMS_ITS | Encounter Summary ---
Author Organization [facility] Address [address] [place] [address] Phone Care Team Providers Care Glue Spreading Machine Operator Name Role Phone Apolinar Crowley MD Primary Care Provider Yeni Rajput AIDS NURSE Unavailable [phone] Encounter Details Date Type Department Care Team (Late st Contact Info) Description 12/24/2022 3:15 PM CDT Office Visit [facility] [address] [place] [id number] Kiran Gonsales MD PhD [address] [place], [place] [id number] Atypical nevi (Primary Dx) Social History Tobacco Use Types Packs/Day Years Used Date Smoking Tobacco: Former Cigarettes 0.5 10 0 05/10/2010 - 05/09/2020 Smokeless Tobacco: Never Alcohol Use Standard Drinks/Week Comments No 0 (1 standard drink = 0.6 oz pur e alcohol) PHQ-2 Answer Date Recorded PHQ-2 Total Score (If total score is 3 or more points, staff should administer the PHQ-9) 0 12/03/2022 Comments No Sex and Gender Information Value Date Recorded Sex Assigned at Not on file Legal 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 female new to clinic with no history of skin cancer, here for follow-up of atypical nevus. Concerns today: - Denies any changes to atypical moles on sides of scalp. No new symptoms (bleeding/itching) or growth noted since VENECIA. Otherwise, no other painful, bleeding or pruritic areas. No other new, changing or otherwise suspicious lesions. HISTORY Medications and allergies reviewed in chart Past medical, family and social history reviewed and noncontributory unless noted in HPI. History of NMSC: no History of Melanoma: no Family Hx of MM: possibly grandmother Past Medical History: Diagnosis Date Hypertension During pregancy ROS: No fever, unintended weight changes, lymphadenopathy, oral or genital lesions. PHYSICAL EXAM:(declined gown, examined areas offered by patient) GENERAL: Well-developed and well-nourished. No acute distress. NEURO: Alert and oriented x3. PSYCH: Appropriate affect. 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 Patient was advised on daily photoprotection including broad spectrum sunscreen use. Discussed signs of skin cancer and need for routine follow up MD skin exams and monthly self skin checks - Discussed continued monitoring at home q3 months; provided patient with written measurement of L temporal nevus for monitoring RTC 12 months for FBSE Haroon Rosa MD PhD Dermatology Resident, PGY-3 12/24/2022 Cosigned by MwKiran ontiveros MD PhD at 01/02/2023 6:04 AM CDT Associated attestation - Kiran Gonsales MD PhD - 01/02/2023 6:04 AM CDT I have seen and examined the patient. I agree with the findings and plan of care as documented in the resident/fellow's note. documented in this encounter Plan of Treatment Not on file documented as of this encounter Visit Diagnoses Diagnosis Atypical nevi- Primary Benign neoplasm of skin, site unspecified documented in this encounter Care Teams Glue Spreading Machine Operator Relationship Specialty Start Date End Date Apolinar Crowley MD PCP - General Family Medicine 05/20/21 Yeni Rajput NP [address] [place] [address] [place] [address] Nurse Practitioner Gynecology 12/15/22 documented as of this encounter
--- OUTSIDE RECORDS SUMMARY | 2024-04-27 18:06 | XMS_ITS | Encounter Summary ---
Author Organization [facility] Healthcare Address [address] [place] [address] Care Team Providers Care Carbonizer Name Role Phone Apolinar Crowley MD Primary Care Provider [phone] Encounter Details Date Type Department Care Team (Late st Contact Info) Description 08/28/2022 3:05 PM CDT Lab [address] [address] Abnormal vaginal bleeding Social History Tobacco Use Types Packs/Day Years Used Date Smoking Tobacco: Former Cigarettes 0.5 10 0 05/10/2010 - 05/09/2020 Smokeless Tobacco: Never Alcohol Use Standard Drinks/Week Comments No 0 (1 standard drink = 0.6 oz pur e alcohol) PHQ-2 Answer Date Recorded PHQ-2 Total Score (If total score is 3 or more points, staff should administer the PHQ-9) 0 08/19/2022 Comments No Sex and Gender Information Value Date Recorded Sex Assigned at Not on file Legal 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, [address] [facility], [place]., [address] Blood 08/28/2022 3:09 PM CDT 08/28/2022 5:41 PM CDT us Apolinar Crowley MD LAB BLOOD ORDERABLES Final Resul t [facility]) 1 [facility] Department [place] [address] documented in this encounter Visit Diagnoses Diagnosis Abnormal vaginal bleeding Other specified noninflammatory disorder of vagina documented in this encounter Care Teams Carbonizer Relationship Specialty Start Date End Date Apolinar Crowley MD PCP - General Family Medicine 05/20/21 documented as of this encounter
--- OUTSIDE RECORDS SUMMARY | 2024-04-27 18:06 | XMS_ITS | Encounter Summary ---
Author Organization [facility] Healthcare Address [address] [place] [address] Care Team Providers Care Paste Up Artist Name Role Phone Apolinar Crowley MD Primary Care Provider [phone] Yeni Rajput VIDEO PRESENTATION OPERATOR Unavailable [phone] Reason for Referral * Consultation (Routine) - Closed Specialty Diagnoses / Procedures Referred By Contac t Referred To Contact Diagnoses Generalized anxiety disorder PTSD (post-traumatic stress disorder) Apolinar Crowley MD [address] [place] [address] [address] [place] [address] Phone: tel: fax: Kojo Rhodes Referral ID Status Reason Start Date Expiration Date V isits Requested Visits Authorized [id number] Closed Specialty Services Required 02/02/2024 03/03/2025 1 1 Question Answer Please select the performing region: External Order [171] To provider: KOJO RHODES [[id number]] # of visits: 1 Encounter Details Date Type Department Care Team (Late st Contact Info) Description 02/02/2024 Orders Only [facility] Primary Care at [address] [place] [address] Apolinar Crowley MD [address] [place] [id number] Generalized anxiety disorder (Primary Dx); PTSD (post-traumatic stress disorder) Social History Tobacco Use Types Packs/Day Years [...] on file Legal Sex Female 6:54 PM 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 [place] Gender Identity Not on file Sexual Orientation Not on file documented as of this encounter Plan of Treatment Scheduled Referrals Name Type Priority Associated Diagnoses Order Schedule Ambulatory referral to Psychology Outpatient Referral Routine Generalized anxiety disorder PTSD (post-traumatic stress disorder) Expected: 02/02/2024 (Approximate), Expires: 02/01/2025 documented as of this encounter Visit Diagnoses Diagnosis Generalized anxiety disorder- Primary PTSD (post-traumatic stress disorder) Posttraumatic stress disorder documented in this encounter Care Teams Paste Up Artist Relationship Specialty Start Date End Date Apolinar Crowley MD PCP - General Family Medicine 05/20/21 Yeni Rajput NP [address] [place] [address] [address] Nurse Practitioner Gynecology 12/15/22 documented as of this encounter
--- OUTSIDE RECORDS SUMMARY | 2024-04-27 18:06 | XMS_ITS | Encounter Summary ---
Author Organization [facility] Address [address] [facility] [address] [place] [address] Care Team Providers Care District Recruiter Name Role Phone Apolinar Crowley MD Primary Care Provider [phone] Encounter Details Date Type Department Care Team ([facility] st Contact Info) Description 08/19/2022 Orders Only [facility] Primary Care at [address] [place] [address] Henrietta Cole MD [address] [place] [address] [address] [place] [address] Abnormal vaginal bleeding (Primary Dx) Social History Tobacco Use Types [...] on file 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 Gender Identity Not on file Sexual Orientation Not on file documented as of this encounter Miscellaneous Notes * Addendum Note - [place] Mata - 08/19/2022 4:57 PM CDTAddended by: [place] MATA on: 08/22/2022 08:28 AM Modules accepted: Orders documented in this encounter Plan of Treatment Not on file documented as of this encounter Results * CBC with auto differential (08/22/2022 8:32 AM CDT) WBC 7.8 3.8 - 9.9 K/cumm [facility] Hgb 14.2 11.9 - 15.5 g/dL [facility] Hct 42.9 35.6 - 45.5 % [facility] Plt 315 150 - 400 K/cumm [facility] MPV 10.0 9.1 - 12.3 fL [facility] RBC 4.74 3.90 - 5.20 M/cumm [facility] MCV 90.5 81.3 - 96.4 fL [facility] MCH 30.0 27.1 - 33.3 pg [facility] MCHC 33.1 32.3 - 35.7 g/dL [facility] RDW CV 11.9 11.1 - 14.9 % [facility] RDW SD 39.4 35.7 - 48.1 fL [facility] NRBC abs 0.00 0.00 - 0.01 K/cumm [facility] Blood 08/22/2022 8:32 AM CDT 08/22/2022 9:14 AM CDT Henrietta Cole MD LAB BLOOD ORDERABLES Final Result [facility] 1 [facility] Department [place] [address] * TSH (08/22/2022 8:32 AM CDT) Thyroid Stimulating Hormone 3.19 0.30 - 4.20 mcIUnit/mL [facility] Blood 08/22/2022 8:32 AM CDT 08/22/2022 8:56 AM CDT Henrietta Cole MD LAB BLOOD ORDERABLES Final Result Performing Organization Address City/[facility]/ZIP Co de Phone Number [facility] [address] [place] [address] * (ABNORMAL) Prolactin (08/22/2022 8:32 AM CDT) Prolactin 31.8(H) 4.8 - 23.3 ng/mL [facility] Comment:Testing performed by : [facility], [address] [place] [address]., [id number] Blood 08/22/2022 8:32 AM CDT 08/22/2022 11:16 AM CDT Henrietta Cole MD LAB BLOOD ORDERABLES Final Result Performing Organization Address [facility] Co de Phone Number [facility] 1 [facility] [place] [address] documented in this encounter Visit Diagnoses Diagnosis Abnormal vaginal bleeding- Primary Other specified noninflammatory disorder of vagina documented in this encounter Care Teams District Recruiter Relationship Specialty Start Date End Date Apolinar Crowley MD PCP - General Family Medicine 05/20/21 documented as of this encounter
--- OUTSIDE RECORDS SUMMARY | 2024-04-27 18:06 | XMS_ITS | Encounter Summary ---
Author Organization [facility] Healthcare Address [address] [place] [address] Care Team Providers Care Funder Name Role Phone Apolinar Crowley MD Primary Care Provider [phone] Yeni Rajput ANALOG IC DESIGN ENGINEER Unavailable [phone] Encounter Details Date Type Department Care Team ([facility] Contact Info) Description 09/02/2023 Telephone [facility] Primary Care at [address] [place] [address] Apolinar Crowley MD [address] [place] [address] [address] [place] [address] Social History Tobacco Use Types Packs/Day Years Used Date Smoking Tobacco: Former Cigarettes 0.5 10 0 05/10/2010 - 05/09/2020 Smokeless Tobacco: Never Alcohol Use Standard Drinks/Week Comments No 0 (1 standard drink = 0.6 oz pur e alcohol) PHQ-2 Answer Date Recorded PHQ-2 Total Score (If total score is 3 or more points, staff should administer the PHQ-9) 0 06/08/2023 Personal Safety Answer Date Recorded Getting School Help Needed Not on file 04/24 Comments No Sex and Gender Information Value Date Recorded Sex Assigned at Not on file Legal Sex Female 6:54 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 Gender Identity Not on file Sexual Orientation Not on file documented as of this encounter Miscellaneous Notes * Telephone Encounter - Vignesh Ellison - 09/02/2023 8:09 AM CDT Pt was called to schedule an apt pt has an apt set already willing to keep the one she has documented in this encounter Plan of Treatment Not on file documented as of this encounter Visit Diagnoses Not on filedocumented in this encounter Care Teams Funder Relationship Specialty Start Date End Date Apolinar Crowley MD PCP - General Family Medicine 05/20/21 Yeni Rajput, MOY [address] [place] [address] [address] [place] [address] Nurse Practitioner Gynecology 12/15/22 documented as of this encounter
--- OUTSIDE RECORDS SUMMARY | 2024-04-27 18:06 | XMS_ITS | Encounter Summary ---
Author Organization [facility] Address [address] [place] [address] Phone Care Team Providers Care Display Fabricator Name Role Phone Apolinar Crowley MD Primary Care Provider [phone] Yeni Rajput FOUNDATION RELATIONS MANAGER Unavailable Reason for Visit * Reason Comments Annual Exam Encounter Details Date Type Department Care Team (Late st Contact Info) Description 12/23/2023 3:00 PM CDT Office Visit [facility] [address] [facility] [address] [place] [address] Kiran Gonsales MD PhD [address] [facility] [address] [place] [address] [id number] Atypical nevi (Primary Dx) Social History Tobacco [...] on file 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 female returning pt, no skin cancer hx, here today for follow-up. Pt states today, Notes moles on both temples have not changes in size/appearance, Pt usually does not notice moles are present. No other associated symptoms, exacerbating or alleviating factors. No other painful, bleeding or pruritic areas. No other new, changing or otherwise suspicious lesions. HISTORY Medications and allergies reviewed in chart Past medical, family and social history reviewed and noncontributory unless noted in HPI. History of NMSC: no History of Melanoma: no Family Hx of MM: possibly grandmother Social Hx: Has a daughter. Past Medical History: Diagnosis Date Hypertension During pregancy REVIEW OF SYSTEMS Denies pruritus, easy bruising. Also denies fever, chills, night sweats, weight loss, weakness, lymphadenopathy. Denies any reason for immunocompromization - h/o cancer, chemotherapy, HIV, radiation therapy, bone-marrow transplant. PHYSICAL EXAM Gen and Cardio: Well-developed and well-nourished in no acute distress. Alert oriented and interacts appropriately. Normal conjunctiva. Normal skin sensation. No lower extremity edema. A waist-up examination was performed with close inspection and palpation where indicated and as allowed by the patient of the hair, scalp, face, lips, neck, chest, abdomen, back, right upper and leftupper extremities, hands, nails and digits. 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 SCRIBE ATTESTATION By signing my name, I, SOLITARIO You, scribe, attest that this documentation has been preparedunder the direction and in the presence of Dr. Gonsales 12/23/2023 3:17 PM ATTENDING ATTESTATION I personally performed the services described in this documentation, reviewed and edited the documentation which was dictated to the scribe in my presence, and it accurately records my words and actions. Electronically Signed: Kiran Gonsales MD, PhD documented in this encounter Plan of Treatment Not on file documented as of this encounter Visit Diagnoses Diagnosis Atypical nevi- Primary Benign neoplasm of skin, site unspecified documented in this encounter Care Teams Display Fabricator Relationship Specialty Start Date End Date Apolinar Crowley MD PCP - General Family Medicine 05/20/21 Yeni Rajput NP [address] [place] [address] DR DISLA [address] [place] [id number] Nurse Practitioner Gynecology 12/15/22 documented as of this encounter
--- OUTSIDE RECORDS SUMMARY | 2024-04-27 18:06 | XMS_ITS | Encounter Summary ---
Author Organization [facility] Healthcare Address [address] [place] [address] Care Team Providers Care Armature [employer] Name Role Phone Apolinar Crowley MD Primary Care Provider [phone] Yeni Rajput ARTIFICIAL BREEDING RANCH SUPERVISOR Unavailable [phone] Encounter Details Date Type Department Care Team ([facility] Contact Info) Description 12/14/2023 Telephone [facility] Medical Group Primary Care at [address] [place] [address] Apolinar Crowley MD [address] [place] [address] [address] [place] [address] Social History Tobacco Use Types [...] on file 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 Pelayo. Please reschedule this appointment when the patient calls back. documented in this encounter Plan of Treatment Not on file documented as of this encounter Visit Diagnoses Not on filedocumented in this encounter Care Teams Armature Winder [employer]otive Relationship Specialty Start Date End Date Apolinar Crowley MD PCP - General Family Medicine 05/20/21 Yeni Rajput, MOY [address] [place] [address] [address] Nurse Practitioner Gynecology 12/15/22 documented as of this encounter
--- OUTSIDE RECORDS SUMMARY | 2024-04-27 18:06 | XMS_ITS | Encounter Summary ---
Author Organization [facility] Medical Group Address [address] [facility] [address] [place] [address] Care Team Providers Care Structures Engineer Name Role Phone Apolinar Crowley MD Primary Care Provider [phone] Reason for Visit * Reason Onset Date Comments Imaging result 11/02/2022 US Pelvis with E ndovaginal Encounter Details Date Type Department Care Team ([facility] st Contact Info) Description 11/02/2022 Telephone [facility] Medical Group Primary Care at [address] [place] [address] Apolinar Crowley MD [address] [place] [address] [address] [place] [address] Imaging result (US Pelvis with Endovaginal ) Social History Tobacco Use Types Packs/Day Years Used Date Smoking Tobacco: Former Cigarettes 0.5 10 0 05/10/2010 - 05/09/2020 Smokeless Tobacco: Never Alcohol Use Standard Drinks/Week Comments No 0 (1 standard drink = 0.6 oz pur e alcohol) PHQ-2 Answer Date Recorded PHQ-2 Total Score (If total score is 3 or more points, staff should administer the PHQ-9) 0 09/07/2022 Comments No Sex and Gender Information Value Date Recorded Sex Assigned at Not on file 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 RG placed order already, no need to route toreferrals. Sent [employer] message with scheduling #. * Telephone Encounter - Gloria No MA - 11/02/2022 9:19 AM CDT Cait has been informed and asked why radiology recommends another US, she is wondering what they are looking for exactly. Please advise. * Telephone Encounter - Gloria No MA - 11/02/2022 9:19 AM CDT ----- Message from Apolinar Crowley MD sent at 11/02/2022 8:30 AM CDT ----- Canw e let her know if she is sneeds a repeat US as recommended by radiology and she nbeeds to follow up with OBGYN documented in this encounter Plan of Treatment Not on file documented as of this encounter Visit Diagnoses Not on filedocumented in this encounter Care Teams Structures Engineer Relationship Specialty Start Date End Date Apolinar Crowley MD PCP - General Family Medicine 05/20/21 documented as of this encounter
--- OUTSIDE RECORDS SUMMARY | 2024-04-27 18:06 | XMS_ITS | Encounter Summary ---
Author Organization [facility] Address [address] [facility] [address] [place] [address] Care Team Providers Care Cupola Tender Helper Name Role Phone Apolinar Crowley MD Primary Care Provider [phone] Encounter Details Date Type Department Care Team ([facility] st Contact Info) Description 11/09/2022 3:45 PM CDT Telemedicine [facility] Medical [facility] Primary Care at [address] [place] [address] Apolinar Crowley MD [address] [place] [address] [address] [place] [address] Generalized anxiety disorder (Primary Dx); Class 2 obesity due to excess calories without serious comorbidity with body mass index (BMI) of 35.0 to 35.9 in adult; Other insomnia Social History Tobacco Use Types Packs/Day Years [...] on file 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 Subjective/Objective Patient ID: Cait Mathews is a 27 y.o. female. Chief Complaint No chief complaint on file. This was a telemedicine visit with Cait Mathews alone which took place via real-time video connection with [employer]. During the visit, I was located in the office and the patient was located at home in the [facility]. The patient visit started at 3:52 pm and ended at 4:05 pm. I have explained the option of participating in a telemedicine visit to the patient. After being given an opportunity to ask questions about and discuss this type of visit, the patient verbally consented to proceeding with the telemedicine visit. The patient understands that this service replaces an office visit and they may be billed and/or responsible for any applicable copayments. HPI: Cait Mathews 27 y.o. woman has a past medical history of Hypertension. who presents for ED follow up - states that she was having Chest pain, went ot the ED, and she thinks it was all anxiety related because it all started after abnormal test results from her vaginla ultrasound. PHQ Screening No Known Allergies Current Outpatient Medications Medication Sig Dispense Refill amoxicillin-clavulanate (AUGMENTIN) 875-125 mg per tablet Take 1 tablet by mouth 2 (two) times a day methylPREDNISolone (MEDROL DOSEPACK) 4 mg Dosepack Take 1 tablet (4 mg total) by mouth Take as directed on package No current facility-administered medications for this visit. Review of Systems Constitutional: Negative for chills and fever. Respiratory: Negative for cough, chest tightness and shortness of breath. Cardiovascular: Negative for chest pain and palpitations. Gastrointestinal: Negative for abdominal pain and diarrhea. Genitourinary: Negative for difficulty urinating. Neurological: Negative for headaches. Psychiatric/Behavioral: The patient is nervous/anxious. There were no vitals taken for this visit. There is no height or weight on file to calculate BMI. Physical Exam HENT: Head: Normocephalic. Right Ear: External ear normal. Left Ear: External ear normal. Nose: Nose normal. Eyes: Extraocular Movements: Extraocular movements intact. Pulmonary: Effort: Pulmonary effort is normal. Musculoskeletal: General: Normal range of motion. Cervical back: Normal range of motion. Neurological: Mental Status: She is alert and oriented to person, place, and time. Psychiatric: Mood and Affect: Mood normal. Behavior: Behavior normal. Lab Results Component Value Date WBC 7.8 08/22/2022 HGB 14.2 08/22/2022 HCT 42.9 08/22/2022 MCV 90.5 08/22/2022 LABPLAT 315 08/22/2022 Chemistry Lab Results Component Value Date SODIUM 139 05/20/2021 POTASSIUM 4.1 05/20/2021 CHLORIDE 103 05/20/2021 CO2 25 05/20/2021 ANIONGAP 11 05/20/2021 BUNSER 14 05/20/2021 CREATININE 0.51 (L) 05/20/2021 GLUCOSE 108 05/20/2021 CALCIUM 9.1 05/20/2021 BILITOT 0.4 05/20/2021 ALBUMIN 4.7 05/20/2021 GFRNAA 131 05/20/2021 ALKPHOS 69 05/20/2021 AST 23 05/20/2021 ALT 35 05/20/2021 Lab Results Component Value Date HGBA1C 5.0 05/20/2021 Lab Results Component Value Date LDLCALC 101 05/20/2021 CREATININE 0.51 (L) 05/20/2021 Lab Results Component Value Date CHOL 158 05/20/2021 Lab Results Component Value Date HDL 33 (L) 05/20/2021 Lab Results Component Value Date LDLCALC 101 05/20/2021 Lab Results Component Value Date TRIG 122 05/20/2021 No results found for: POCCHDLR No results found for: POCNONHDL No results found for: POCCHLPL Assessment/Plan Diagnoses and all orders for this visit: Generalized anxiety disorder (Primary) Assessment & Plan: Not at goal at this time Will start lexapro 10 mg every day Have pt rtc in 4 - 12 weeks Class 2 obesity due to excess calories without serious comorbidity with body mass index (BMI) of 35.0 to 35.9 in adult Assessment & Plan: Wt Readings from Last 3 Encounters: 09/07/22 85.3 kg (188 lb) 08/19/22 87.5 kg (193 lb) 06/05/22 87.5 kg (193 lb) BMI Readings from Last 3 Encounters: 09/07/22 36.72 kg/m?? 08/19/22 37.69 kg/m?? 06/05/22 37.69 kg/m?? Not at goal of bmi <30 Continue diet and exercise BMI Follow-up includes: nutrition counseling and exercise counseling. Other insomnia Comments: not at goal and seesm to be itnermittent start trazodone 50 mg qhs prn start with lexapro first Other orders - escitalopram (LEXAPRO) 10 mg tablet; Take 1 tablet (10 mg total) by mouth daily - traZODone (DESYREL) 50 mg tablet; Take 1 tablet (50 mg total) by mouth nightly Return in about 4 weeks (around 12/07/2022) for Recheck. documented in this encounter Miscellaneous Notes * Assessment & Plan Note - Apolinar Crowley MD - 11/09/2022 3:57 PM CDTAssociated Problem(s): Generalized anxiety disorder Not at goal at this time Will start lexapro 10 mg every day Have pt rtc in 4 - 12 weeks * Assessment & Plan Note - Apolinar Crowley MD - 11/09/2022 3:55 PM CDTAssociated Problem(s): Class 2 obesity due to excess calories without serious comorbidity with bodymass index (BMI) of 35.0 to 35.9 in adult Wt Readings from Last 3 Encounters: 09/07/22 85.3 kg (188 lb) 08/19/22 87.5 kg (193 lb) 06/05/22 87.5 kg (193 lb) BMI Readings from Last 3 Encounters: 09/07/22 36.72 kg/m?? 08/19/22 37.69 kg/m?? 06/05/22 37.69 kg/m?? Not at goal of bmi <30 Continue diet and exercise BMI Follow-up includes: nutrition counseling and exercise counseling. documented in this encounter Plan of Treatment Not on file documented as of this encounter Visit Diagnoses Diagnosis Generalized anxiety disorder- Primary Class 2 obesity due to excess calories without serious comorbidity with body mass index (BMI) of 35.0 to 35.9 in adult Other insomnia documented in this encounter Discontinued Medications Medication Sig Discontinue Reason Start Date End Da te methylPREDNISolone (MEDROL DOSEPACK) 4 mg Dosepack Take 1 tablet (4 mg total) by mouth Take as directed on package 11/09/2022 amoxicillin-clavulanate (AUGMENTIN) 875-125 mg per tablet Take 1 tablet by mouth 2 (two) times a day 11/09/2022 documented as of this encounter Care Teams Cupola Tender Helper Relationship Specialty Start Date End Date Apolinar Crowley MD PCP - General Family Medicine 05/20/21 documented as of this encounter
--- OUTSIDE RECORDS SUMMARY | 2024-04-27 18:06 | XMS_ITS | Encounter Summary ---
Author Organization [facility] Address [address] [facility] [address] [place] [address] Care Team Providers Care Table Saw Operator Name Role Phone Apolinar Crowley MD Primary Care Provider [phone] Encounter Details Date Type Department Care Team ([facility] st Contact Info) Description 11/02/[address] 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
--- OUTSIDE RECORDS SUMMARY | 2024-04-27 18:06 | XMS_ITS | Encounter Summary ---
Author Organization [facility] Healthcare Address [address] [place] [address] Care Team Providers Care Interventionist Name Role Phone Apolinar Crowley MD Primary Care Provider [phone] Yeni Rajput SITE LEADER Unavailable [phone] Reason for Visit * Reason Comments Health Maintenance Anxiety- states she thinks she has health issues all the time Encounter Details Date Type Department Care Team ([facility] Contact Info) Description 02/01/2024 4:45 PM CDT Office Visit [facility] Primary Care at [address] [place] [address] Apolinar Crowley MD [address] [place] [address] [address] [place] [address] Annual physical exam (Primary Dx); Class 2 obesity due to excess calories without serious comorbidity with body mass index (BMI) of 35.0 to 35.9 in adult; Generalized anxiety disorder Social History Tobacco Use Types Packs/Day [...] on file 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 Gender Identity Not on file Sexual Orientation Not on file documented as of this encounter Last Filed Vital Signs Vital Sign Reading Time Taken Comments Blood Pressure 110/80 02/01/2024 4:38 PM CDT Pulse 74 02/01/2024 4:38 PM CDT Temperature - - Respiratory Rate 16 02/01/2024 4:38 PM CDT Oxygen Saturation 99% 02/01/2024 4:38 PM CDT Inhaled Oxygen Concentration - - Weight 89.9 kg (198 lb 1.6 oz) 02/01/2024 4:38 P M CDT Height 152.4 cm (5') 02/01/2024 4:38 PM CDT Body Mass Index 38.69 02/01/2024 4:38 PM CDT documented in this encounter Patient Instructions * Patient Instructions* Apolinar Crowley MD - 02/01/2024 4:45 PM CDT Magnesium glycinate 400 mg nightly documented in this encounter Ordered Prescriptions Prescription Sig Dispense Quantity Refills Last Filled Start Date End Date propranoloL (INDERAL) 20 mg tablet Take 1 tablet (20 mg total) by mouth 2 (two) times a day as needed (social anxiety, sweating, heart racing) 30 tablet 02/01/2024 escitalopram (LEXAPRO) 10 mg tablet Take 1 tablet (10 mg total) by mouth daily 90 tablet 1 02/01/2024 documented in this encounter Progress Notes * Apolinar Crowley MD - 02/01/2024 4:45 PM CDT Images from the original note were not included. Subjective/Objective Patient ID: Cait Mathews is a 28 y.o. female. Chief Complaint Health Maintenance (Anxiety- states she thinks she has health issues all the time) HPI: Cait Mathews 28 y.o. woman has a past medical history of Hypertension. who presents for her annual physical exam Discuss worsening anxiety PHQ Screening Over the last 2 weeks, how often have you been bothered by any of the following problems? Little Interest or Pleasure in Doing Things: Not at all Feeling Down, Depressed, or Hopeless: Not at all PHQ-2 Total Score (If total score is 3 or more points, staff should administer the PHQ-9): 0 Over the past 2 weeks, how often have you been bothered by any of the following problems? Little Interest or Pleasure in Doing Things: Not at all Feeling Down, Depressed, or Hopeless: Not at all PHQ-2 Total Score (If total score is 3 or more points, staff should administer the PHQ-9): 0 No Known Allergies Current Outpatient Medications Medication Sig Dispense Refill escitalopram (LEXAPRO) 10 mg tablet Take 1 tablet (10 mg total) by mouth daily 90 tablet 1 propranoloL (INDERAL) 20 mg tablet Take 1 tablet (20 mg total) by mouth 2 (two) times a day as needed (social anxiety, sweating, heart racing) 30 tablet 0 No current facility-administered medications for this visit. Review of Systems Constitutional: Negative for chills and fever. Respiratory: Negative for cough, chest tightness and shortness of breath. Cardiovascular: Negative for chest pain and palpitations. Gastrointestinal: Negative for abdominal pain and diarrhea. Genitourinary: Negative for difficulty urinating. Neurological: Negative for headaches. Psychiatric/Behavioral: Negative for agitation. The patient is nervous/anxious and is hyperactive. BP 110/80 (BP Location: Left arm, Patient Position: Sitting) Pulse 74 Resp 16 Ht 152.4 cm (5') Wt 89.9 kg (198 lb 1.6 oz) SpO2 99% BMI 38.69 kg/m?? Body mass index is 38.69 kg/m??. Physical Exam Constitutional: Appearance: Normal appearance. Cardiovascular: Rate and Rhythm: Normal rate and regular rhythm. Pulses: Normal pulses. Heart sounds: Normal heart sounds. Pulmonary: Effort: Pulmonary effort is normal. Breath sounds: Normal breath sounds. Musculoskeletal: General: Normal range of motion. Cervical back: Neck supple. Skin: General: Skin is warm and dry. Neurological: Mental Status: She is alert and oriented to person, place, and time. Lab Results Component Value Date WBC 7.8 [...] Diagnoses and all orders for this visit: Annual physical exam (Primary) Assessment & Plan: Discussed lifestyle modifications, diet and exercise. Routine blood work ordered/reviewed today. Yearly vision and dental examinations. Class 2 obesity due to excess calories without serious comorbidity with body mass index (BMI) of 35.0 to 35.9 in adult Assessment & Plan: Wt Readings from Last 3 Encounters: 02/01/24 89.9 kg (198 lb 1.6 oz) 06/08/23 86.6 kg (191 lb) 01/07/23 86.6 kg (191 lb) BMI Readings from Last 3 Encounters: 02/01/24 38.69 kg/m?? 06/08/23 37.30 kg/m?? 01/07/23 37.30 kg/m?? Not at goal of bmi <30 Continue diet and exercise BMI Follow-up includes: nutrition counseling and exercise counseling. Worsening as above Generalized anxiety disorder Assessment & Plan: -chronic, worsening sx at this time controlled -previously has taken Prozac and trazodone -not currently taking medication regularly But states sx are worse Having health anxiety as well Recommend start lexapro 10 mg every day Scheduling with therapist/psychologist CBT Other orders - escitalopram (LEXAPRO) 10 mg tablet; Take 1 tablet (10 mg total) by mouth daily - propranoloL (INDERAL) 20 mg tablet; Take 1 tablet (20 mg total) by mouth 2 (two) times a day as needed (social anxiety, sweating, heart racing) Return in about 4 months (around 06/02/2024) for Recheck. documented in this encounter Miscellaneous Notes * Assessment & Plan Note - Apolinar Crowley MD - 02/01/2024 4:57 PM CDTAssociated Problem(s): Annual physical exam Discussed lifestyle modifications, diet and exercise. Routine blood work ordered/reviewed today. Yearly vision and dental examinations. * Assessment & Plan Note - Apolinar Crowley MD - 02/01/2024 4:46 PM CDTAssociated Problem(s): Class 2 obesity due to excess calories without serious comorbidity with bodymass index (BMI) of 35.0 to 35.9 in adult Wt Readings from Last 3 Encounters: 02/01/24 89.9 kg (198 lb 1.6 oz) 06/08/23 86.6 kg (191 lb) 01/07/23 86.6 kg (191 lb) BMI Readings from Last 3 Encounters: 02/01/24 38.69 kg/m?? 06/08/23 37.30 kg/m?? 01/07/23 37.30 kg/m?? Not at goal of bmi <30 Continue diet and exercise BMI Follow-up includes: nutrition counseling and exercise counseling. Worsening as above * Assessment & Plan Note - Apolinar Crowley MD - 02/01/2024 4:46 PM CDTAssociated Problem(s): Generalized anxiety disorder -chronic, worsening sx at this time controlled -previously has taken Prozac and trazodone -not currently taking medication regularly But states sx are worse Having health anxiety as well Recommend start lexapro 10 mg every day Scheduling with therapist/psychologist CBT documented in this encounter Plan of Treatment Not on file documented as of this encounter Visit Diagnoses Diagnosis Annual physical exam- Primary Routine general medical examination at a [facility] facility Class 2 obesity due to excess calories without serious comorbidity with body mass index (BMI) of 35.0 to 35.9 in adult Generalized anxiety disorder documented in this encounter Discontinued Medications Medication Sig Discontinue Reason Start Date End Da te meclizine (ANTIVERT) 25 mg tablet Take 1 tablet (25 mg total) by mouth 3 (three) times a day as needed for dizziness Therapy completed 03/11/2023 02/01/2024 documented as of this encounter Care Teams Interventionist Relationship Specialty Start Date End Date Apolinar Crowley MD PCP - General Family Medicine 05/20/21 Yeni Rajput NP [address] [place] [address] DR DISLA [address] [place] [address] Nurse Practitioner Gynecology 12/15/22 documented as of this encounter
--- OUTSIDE RECORDS SUMMARY | 2024-04-27 18:06 | XMS_ITS | Encounter Summary ---
Author Organization [facility] Medical Group Address [address] [place] [address] Care Team Providers Care Junior Sales Assistant Name Role Phone Apolinar Crowley MD Primary Care Provider [phone] Encounter Details Date Type Department Care Team ([facility] st Contact Info) Description 09/07/[address] [facility] Medical 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
--- OUTSIDE RECORDS SUMMARY | 2024-04-27 18:06 | XMS_ITS | Encounter Summary ---
Author Organization [facility] Healthcare Address [address] [place] [address] Care Team Providers Care Applications Intern Name Role Phone Apolinar Crowley MD Primary Care Provider [phone] Yeni Rajput BLENDING OPERATOR Unavailable [phone] Encounter Details Date Type Department Care Team ([facility] Contact Info) Description 05/27/2023 Telephone [facility] Primary Care at [address] [place] [address] Apolinar Crowley MD [address] [place] [address] [address] [place] [address] Social History Tobacco Use Types [...] on file 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 RMATION SYSTEMS PLANNER documented in this encounter Plan of Treatment Not on file documented as of this encounter Visit Diagnoses Not on filedocumented in this encounter Care Teams Applications Intern Relationship Specialty Start Date End Date Apolinar Crowley MD PCP - General Family Medicine 05/20/21 Yeni Rajput NP [address] [place] [address] [address] Nurse Practitioner Gynecology 12/15/22 documented as of this encounter
--- OUTSIDE RECORDS SUMMARY | 2024-04-27 18:06 | XMS_ITS | Encounter Summary ---
Author Organization [facility] Healthcare Address [address] [place] [address] Care Team Providers Care Enrichment Director Name Role Phone Aploinar Crowley MD Primary Care Provider [phone] Yeni Rajput PERCUSSION TEACHER Unavailable [phone] Encounter Details Date Type Department Care Team (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 Gender Identity Not on file Sexual Orientation Not on file documented as of this encounter Plan of Treatment Not on file documented as of this encounter Visit Diagnoses Diagnosis Benign paroxysmal positional vertigo, unspecified laterality- Primary Dizziness Dizziness and giddiness Ear congestion, unspecified laterality documented in this encounter Care Teams Enrichment Director Relationship Specialty Start Date End Date Apolinar Crowley MD PCP - General Family Medicine 05/20/21 Yeni Rajput, MOY [address] [place] [address] [address] DISLA [address] [place] [address] Nurse Practitioner Gynecology 12/15/22 documented as of this encounter
--- OUTSIDE RECORDS SUMMARY | 2024-04-27 18:06 | XMS_ITS | Encounter Summary ---
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 Cw 08/20/22 documented in this encounter Plan of Treatment Not on file documented as of this encounter Visit Diagnoses Not on filedocumented in this encounter Care Teams Transplanter Orchid Relationship Specialty Start Date End Date Apolinar Crowley MD PCP - General Family Medicine 05/20/21 documented as of this encounter
--- OUTSIDE RECORDS SUMMARY | 2024-04-27 18:06 | XMS_ITS | Encounter Summary ---
Author Organization [facility] Medical Group Address [address] [place] [address] Care Team Providers Care Direct Marketing Analyst Name Role Phone Apolinar Crowley MD Primary Care Provider [phone] Encounter Details Date Type Department Care Team (Late st Contact Info) Description 08/19/2022 Orders Only [facility] Medical [facility] Primary Care at [address] [place] [address] Henrietta Cole MD [address] [place] [address] [address] [place] [address] Social History Tobacco Use Types Packs/Day Years [...] on file 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
--- OUTSIDE RECORDS SUMMARY | 2024-04-27 18:06 | XMS_ITS | Encounter Summary ---
Author Organization [facility] Address [address] [place] [address] Care Team Providers Care Hand Upper And Bottom Lacer Name Role Phone Apolinar Crowley MD Primary Care Provider [phone] Reason for Visit * Reason Onset Date Comments Appointment Request 12/03/2022 Encounter Details Date Type Department Care Team ([facility] st Contact Info) Description 12/03/2022 Telephone [facility] Primary Care at [address] [place] [address] Apolinar Crowley MD [address] [place] [address] [address] [place] [address] Appointment Request Social History Tobacco Use Types Packs/Day Years [...] on file 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 Same day What is the reason for the visit? Ear infection What is the reason we were unable to schedule the appointment? Current appointment availability didnot meet patient's need. If applicable, were all members of the patient's PCP care team offered (e.g., nurse practioner(s), physician certified pharmacist assistant(s)) ? Yes Caller's Callback #: [phone] Additional Comments: Patient called stating that she had a ear infection but don't think its completely gone.Cs tried to schedule but patient need something today Around 3:45 pm. Does message need to be routed? Yes-Action Needed documented in this encounter Plan of Treatment Not on file documented as of this encounter Visit Diagnoses Not on filedocumented in this encounter Care Teams Hand Upper And Bottom Lacer Relationship Specialty Start Date End Date Apolinar Crowley MD PCP - General Family Medicine 05/20/21 documented as of this encounter
--- OUTSIDE RECORDS SUMMARY | 2024-04-27 18:06 | XMS_ITS | Encounter Summary ---
Author Organization [facility] Medical Group Address [address] [place] [address] Care Team Providers Care Health Actuary Name Role Phone Apolinar Crowley MD Primary Care Provider [phone] Encounter Details Date Type Department Care Team ([facility] st Contact Info) Description 11/02/2022 Telephone [facility] Medical [facility] Primary Care at [address] [place] [address] Henrietta Cole MD [address] [place] [address] [address] [place] [address] Social History Tobacco Use Types Packs/Day Years [...] on file 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 * Telephone Encounter - Madeline Nieves MA - 11/02/2022 10:17 AM CDT ----- Message from Henrietta Cole MD sent at 11/02/2022 8:23 AM CDT ----- Let patient know that her US showed cysts of the right ovary but unlikely to be causing the irregular bleeding. Can do a repeat US in 6 weeks for monitoring of the cyst if pcp wants to. Can follow upwith ob about vaginal bleeding if recommended by pcp. Will make pcp aware of results. documented in this encounter Plan of Treatment Not on file documented as of this encounter Visit Diagnoses Not on filedocumented in this encounter Care Teams Health Actuary Relationship Specialty Start Date End Date Apolinar Crowley MD PCP - General Family Medicine 05/20/21 documented as of this encounter
--- OUTSIDE RECORDS SUMMARY | 2024-04-27 18:06 | XMS_ITS | Encounter Summary ---
Author Organization [facility] Medical Group Address [address] [place] [address] Care Team Providers Care Embroidery Specialist Name Role Phone Apolinar Crowley MD Primary Care Provider [phone] Encounter Details Date Type Department Care Team ([facility] st Contact Info) Description 08/25/2022 Telephone [facility] Medical [facility] Primary Care at [address] [place] [address] Apolinar Crowley MD [address] [place] [address] [address] [place], [place] [id number] Social History Tobacco Use Types Packs/Day Years [...] on file 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 Patient has been informed that she can discuss more at next office visit. Informed patient that we can repeat test once more per Dr. Crowley message below. Patient agreed and requested repeat. Repeat Prolactin has been ordered. Patient has been informed. * Telephone Encounter - Henrietta Cole MD - 08/25/2022 3:42 PM CDT This was a part of her work up for her abnormal vaginal bleeding. She does have a follow up with her pcp coming up and they can discuss next steps. * Telephone Encounter - Chandler Harrison MA - 08/25/2022 2:[address] Pelayo please review. * Telephone Encounter - Altagracia Anaya MA - 08/25/2022 11:10 AM CDT Spoken with pt regarding her prolactin level was slightly elevate. * Telephone Encounter - Altagracia Anaya MA - 08/25/2022 11:10 AM CDT ----- Message from Henrietta Cole MD sent at 08/25/2022 9:25 AM CDT ----- Let patient know that the prolactin level was slightly elevated which could be contributing to her abnormal bleeding. Will make her pcp aware and she can follow up at the next office visit. All otherlabs were normal. documented in this encounter Plan of Treatment Not on file documented as of this encounter Results * Prolactin (08/28/2022 3:09 PM CDT) Prolactin 17.5 4.8 - 23.3 ng/mL [facility] ([facility]) Comment:Testing performed by : [facility], [address] [place] [address] [place]., [address] Blood 08/28/2022 3:09 PM CDT 08/28/2022 5:41 PM CDT us Apolinar Crowley MD LAB BLOOD ORDERABLES Final Resul t [facility] ([facility]) [address] [facility] [place] [address] documented in this encounter Visit Diagnoses Diagnosis Abnormal vaginal bleeding- Primary Other specified noninflammatory disorder of vagina documented in this encounter Care Teams Embroidery Specialist Relationship Specialty Start Date End Date Apolinar Crowley MD PCP - General Family Medicine 05/20/21 documented as of this encounter
--- OUTSIDE RECORDS SUMMARY | 2024-04-27 18:06 | XMS_ITS | Encounter Summary ---
Author Organization [facility] Address [address] [place] [address] Care Team Providers Care Outcomes Manager Name Role Phone Apolinar Crowley MD Primary Care Provider [phone] Reason for Visit * Reason Comments Vaginal Bleeding Abnormal vaginal ble eding Encounter Details Date Type Department Care Team ([facility] st Contact Info) Description 08/19/2022 4:30 PM CDT Office Visit [facility] Primary Care at [address] [place] [address] Henrietta Cole MD [address] [place] [address] [address] [place] [address] Abnormal vaginal bleeding (Primary Dx) Social History [...] on file 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 Gender Identity Not on file Sexual Orientation Not on file documented as of this encounter Last Filed Vital Signs Vital Sign Reading Time Taken Comments Blood Pressure 128/73 08/19/2022 4:22 PM CDT Pulse 66 08/19/2022 4:22 PM CDT Temperature 37.1 ??C (98.7 ??F) 08/19/2022 4:22 PM CD T Respiratory Rate 16 08/19/2022 4:22 PM CDT Oxygen Saturation 99% 08/19/2022 4:22 PM CDT Inhaled Oxygen Concentration - - Weight 87.5 kg (193 lb) 08/19/2022 4:22 PM CDT Height 152.4 cm (5') 08/19/2022 4:22 PM CDT Body Mass Index 37.69 08/19/2022 4:22 PM CDT documented in this encounter Progress Notes * Henrietta Cole MD - 08/19/2022 4:30 PM CDT Images from the original note were not included. Subjective/Objective Patient ID: Cait Mathews is a 26 y.o. female. Chief Complaint Vaginal Bleeding (Abnormal vaginal bleeding ) HPI 26f w/ hx pertinent for partial hysterectomy due to complications who is coming in for abnormal vaginal bleeding. This has been going on for 2 years. It is usually some spotting every couple of months. On Wednesday is when she had some heavy bleeding. 2 large round spots on her undergarments. It stopped after Wednesday but then it came back yesterday. 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 She will also experience some cramping. No other symptoms and she is currently not on any medications. Review of Systems Genitourinary: Positive for vaginal bleeding. Negative for vaginal discharge and vaginal pain. Vitals: 08/19/22 1622 BP: 128/73 BP Location: Left arm Patient Position: Sitting Pulse: 66 Resp: 16 Temp: 37.1 ??C (98.7 ??F) TempSrc: Temporal SpO2: 99% Weight: 87.5 kg (193 lb) Height: 152.4 cm (5') No visits with results within 1 Month(s) from this visit. Latest known visit with results is: Office Visit on 06/27/2021 Component Date Value COVID-19 Ag POC (BD Veri* 06/27/2021 Positive (A) Physical Exam Genitourinary: Vagina: Normal. No foreign body. No vaginal discharge, erythema, tenderness or bleeding. Cervix: No discharge, lesion, erythema, cervical bleeding or eversion. Uterus: Normal. Adnexa: Right adnexa normal and left adnexa normal. Assessment/Plan Diagnoses and all orders for this visit: Abnormal vaginal bleeding (Primary) Assessment & Plan: Chronic, worsening Vaginal exam unremarkable Will get a transvaginal ultrasound, TSH, prolactin level, and CBC can consider hand compositor referral pending results Follow-up with PCP in 2 weeks Side effects, risks, interactions reviewed with patient. Indications for testing discussed. Any further problems to contact us. She was told what to look out for and verbalized understanding. The patient was given the opportunity to have all questions answered today and was in agreement with the plan of care. Henrietta Cole MD documented in this encounter Miscellaneous Notes * Assessment & Plan Note - Henrietta Cole MD - 08/19/2022 5:18 PM CDT Associated Problem(s): Abnormal vaginal bleeding Chronic, worsening Vaginal exam unremarkable Will get a transvaginal ultrasound, TSH, prolactin level, and CBC can consider hand compositor referral pending results Follow-up with PCP in 2 weeks documented in this encounter Plan of Treatment Not on file documented as of this encounter Visit Diagnoses Diagnosis Abnormal vaginal bleeding- Primary Other specified noninflammatory disorder of vagina documented in this encounter Care Teams Outcomes Manager Relationship Specialty Start Date End Date Apolinar Crowley MD PCP - General Family Medicine 05/20/21 documented as of this encounter
--- OUTSIDE RECORDS SUMMARY | 2024-04-27 18:06 | XMS_ITS | Encounter Summary ---
Author Organization [facility] Address [address] [place] [address] Care Team Providers Care Resource Development Director Name Role Phone Apolinar Crowley MD Primary Care Provider [phone] Yeni Rajput PSYCHOLOGIST COUNSELING Unavailable [phone] Reason for Visit * Reason Onset Date Comments Imaging Results 12/14/2022 Encounter Details Date Type Department Care Team ([facility] st Contact Info) Description 12/14/2022 Telephone [facility] Primary Care at [address] [place] [phone] Apolinar Crowley MD [address] [place] [address] [address] [place] [address] Imaging Results Social History Tobacco Use Types [...] on file 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 Since continuity of care, do not need SHEEBA. Faxed to [phone]. Patient aware via mychart. * Telephone Encounter - Gloria No MA - 12/15/2022 10:45 AM CDT See other encounter above. Patient aware expressed understanding. Following with [facility] in [place], [place] as well as Yeni Rajput NP with [facility] - I added Yeni Rajput to carete. * Telephone Encounter - Camilo Gillis MA - 12/14/2022 4:51 PM CDT LMTCB- please see provider message below * Telephone Encounter - Camilo Gillis MA - 12/14/2022 4:51 PM CDT ----- Message from Apolinar Crowley MD sent at 12/14/2022 1:21 PM CDT ----- US shows a complex ovarian cyst that requires obgyn evaluation - most likely it is a hemorrhagic cyst, basicalyl collection of blood but it can rupture and be painful if it does. She should follow upwith obgyn documented in this encounter Plan of Treatment Not on file documented as of this encounter Visit Diagnoses Not on filedocumented in this encounter Care Teams Resource Development Director Relationship Specialty Start Date End Date Apolinar Crowley MD PCP - General Family Medicine 05/20/21 Yeni Rajput NP [address] [place] [address] [place] [address] Nurse Practitioner Gynecology 12/15/22 documented as of this encounter
--- OUTSIDE RECORDS SUMMARY | 2024-04-27 18:06 | XMS_ITS | Encounter Summary ---
Author Organization [facility] Address [address] [place] [address] Care Team Providers Care Beam Machine Operator Name Role Phone Apolinar Crowley MD Primary Care Provider [phone] Yeni Rajput HADOOP CONSULTANT Unavailable [phone] Reason for Visit * Reason Comments Vertigo ED follow up Encounter Details Date Type Department Care Team (Late st Contact Info) Description 01/07/2023 3:30 PM CDT Office Visit [facility] Primary Care at [address] [place] [phone] Apolinar Crowley MD [address] [place] [address] [address] [place], [place] [id number] Benign paroxysmal positional vertigo, unspecified laterality (Primary Dx); Class 2 obesity due to excess calories without serious comorbidity with body mass index (BMI) of 35.0 to 35.9 in adult; Generalized anxiety disorder; Former smoker Social History Tobacco Use Types Packs/Day Years [...] on file 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 Gender Identity Not on file Sexual Orientation Not on file documented as of this encounter Last Filed Vital Signs Vital Sign Reading Time Taken Comments Blood Pressure 132/78 01/07/2023 3:31 PM CDT Pulse - - Temperature - - Respiratory Rate 16 01/07/2023 3:31 PM CDT Oxygen Saturation 97% 01/07/2023 3:31 PM CDT Inhaled Oxygen Concentration - - Weight 86.6 kg (191 lb) 01/07/2023 3:31 PM CDT Height 152.4 cm (5') 01/07/2023 3:31 PM CDT Body Mass Index 37.3 01/07/2023 3:31 PM CDT documented in this encounter Patient Instructions * Patient Instructions* Apolinar Crowley MD - 01/07/2023 3:30 PM CDT Citlalli Maneuver Magnesium Glycinate 400 mg nightly L-Theanine 200 mg daily documented in this encounter Progress Notes * Apolinar Crowley MD - 01/07/2023 3:30 PM CDT Images from the original note were not included. Subjective/Objective Patient ID: Cait Mathews is a 27 y.o. female. Chief Complaint Vertigo (ED follow up/) HPI: Cait Mathews 27 y.o. woman has a past medical history of Hypertension. who presents for ER follow up 2/2 to dizziness - was dx with vertigo. States that its improved but stil having dizziness Given meclizine with some improvement PHQ Screening No Known Allergies Current Outpatient Medications Medication Sig Dispense Refill cetirizine (ZyrTEC) 10 mg tablet Take 1 tablet (10 mg total) by mouth daily as needed for [id number] tablet 0 escitalopram (LEXAPRO) 10 mg tablet Take 1 tablet (10 mg total) by mouth daily (Patient not taking:Reported on 12/03/2022) 90 tablet 0 traZODone (DESYREL) 50 mg tablet Take 1 tablet (50 mg total) by mouth nightly (Patient not taking: Reported on 12/03/2022) 30 tablet 0 No current facility-administered medications for this visit. Review of Systems Constitutional: Negative for chills and fever. Respiratory: Negative for cough, chest tightness and shortness of breath. Cardiovascular: Negative for chest pain and palpitations. Gastrointestinal: Negative for abdominal pain and diarrhea. Genitourinary: Negative for difficulty urinating. Neurological: Negative for headaches. BP 132/78 (BP Location: Right arm, Patient Position: Sitting) Resp 16 Ht 152.4 cm (5') Wt 86.6 kg (191 lb) SpO2 97% BMI 37.30 kg/m?? Body mass index is 37.3 kg/m??. Physical Exam Constitutional: Appearance: Normal appearance. [...] Diagnoses and all orders for this visit: Benign paroxysmal positional vertigo, unspecified laterality (Primary) Comments: given exercises - citlalli sepulveda seen in ED blood work and imaging reviewed - no significant findings Class 2 obesity due to excess calories without serious comorbidity with body mass index (BMI) of 35.0 to 35.9 in adult Assessment & Plan: Wt Readings from Last 3 Encounters: 12/03/22 85.7 kg (189 lb) 09/07/22 85.3 kg (188 lb) 08/19/22 87.5 kg (193 lb) BMI Readings from Last 3 Encounters: 12/03/22 36.91 kg/m?? 09/07/22 36.72 kg/m?? 08/19/22 37.69 kg/m?? Not at goal of bmi <30 Continue diet and exercise BMI Follow-up includes: nutrition counseling and exercise counseling. worsening Generalized anxiety disorder Assessment & Plan: STable at this time Not taking the lexapro and trazodone Will d/c now Can rtc if worsening Former smoker Comments: quit smoking about 3 weeks a go Return for Next scheduled follow up. External notes/medical records, labs, from previous and outside relevant sources for this encounterhave been reviewed and discussed with patient. documented in this encounter Miscellaneous Notes * Assessment & Plan Note - Apolinar Crowley MD - 01/07/2023 3:45 PM CDTAssociated Problem(s): Generalized anxiety disorder STable at this time Not taking the lexapro and trazodone Will d/c now Can rtc if worsening * Assessment & Plan Note - Apolinar Crowley MD - 01/07/2023 3:27 PM CDTAssociated Problem(s): Class 2 obesity due to excess calories without serious comorbidity with bodymass index (BMI) of 35.0 to 35.9 in adult Wt Readings from Last 3 Encounters: 12/03/22 85.7 kg (189 lb) 09/07/22 85.3 kg (188 lb) 08/19/22 87.5 kg (193 lb) BMI Readings from Last 3 Encounters: 12/03/22 36.91 kg/m?? 09/07/22 36.72 kg/m?? 08/19/22 37.69 kg/m?? Not at goal of bmi <30 Continue diet and exercise BMI Follow-up includes: nutrition counseling and exercise counseling. worsening documented in this encounter Plan of Treatment Not on file documented as of this encounter Visit Diagnoses Diagnosis Benign paroxysmal positional vertigo, unspecified laterality- Primary Class 2 obesity due to excess calories without serious comorbidity with body mass index (BMI) of 35.0 to 35.9 in adult Generalized anxiety disorder Former smoker Personal history of tobacco use, presenting hazards to health documented in this encounter Discontinued Medications Medication Sig Discontinue Reason Start Date End Da te cetirizine (ZyrTEC) 10 mg tablet Take 1 tablet (10 mg total) by mouth daily as needed for allergies 12/03/2022 01/07/2023 traZODone (DESYREL) 50 mg tablet Take 1 tablet (50 mg total) by mouth nightly 11/09/2022 01/07/2023 escitalopram (LEXAPRO) 10 mg tablet Take 1 tablet (10 mg total) by mouth daily 11/09/2022 01/07/2023 documented as of this encounter Historical Medications * This list may reflect changes made after this encounter. meclizine (ANTIVERT) 25 mg tablet Take 1 tablet (25 mg total) by mouth 3 (three) times a day as needed 12/28/2022 03/11/2023 added in this encounter Care Teams Beam Machine Operator Relationship Specialty Start Date End Date Apolinar Crowley MD PCP - General Family Medicine 05/20/21 Yeni Rajput NP [address] [place] [address] [place] [id number] Nurse Practitioner Gynecology 12/15/22 documented as of this encounter
--- OUTSIDE RECORDS SUMMARY | 2024-04-27 18:06 | XMS_ITS | Encounter Summary ---
Author Organization [facility] Address [address] [place] [address] Care Team Providers Care Java Architect Name Role Phone Apolinar Crowley MD Primary Care Provider [phone] Yeni Rajput LADLE MECHANIC Unavailable [phone] Encounter Details Date Type Department Care Team ([facility] Contact Info) Description 09/07/[address] 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 Crowley. I left a voicemail re same and cancelled the appointment. Please reschedule this appointment when the patient calls back. documented in this encounter Plan of Treatment Not on file documented as of this encounter Visit Diagnoses Not on filedocumented in this encounter Care Teams Java Architect Relationship Specialty Start Date End Date Apolinar Crowley MD PCP - General Family Medicine 05/20/21 Yeni Rajput NP [address] [place] [address] DR [place] [address] [place] [id number] Nurse Practitioner Gynecology 12/15/22 documented as of this encounter
--- OUTSIDE RECORDS SUMMARY | 2024-04-27 18:06 | XMS_ITS | Encounter Summary ---
Author Organization [facility] Address [address] [place] [address] Care Team Providers Care Credit Verifier Name Role Phone Apolinar Crowley MD Primary Care Provider [phone] Reason for Visit * Reason Comments Vaginal Bleeding Follow up: occasiona lly having the vaginally bleeding: it is light Encounter Details Date Type Department Care Team ([facility] st Contact Info) Description 09/07/2022 11:45 AM CDT Office Visit [facility] Primary Care at [address] [place] [address] Apolinar Crowley MD [address] [place] [address] [address] [place] [address] Abnormal vaginal bleeding (Primary Dx); Class 2 obesity due to excess calories without serious comorbidity with body mass index (BMI) of 35.0 to 35.9 in adult Social History Tobacco Use Types Packs/Day Years [...] on file 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 Subjective/Objective Patient ID: Cait Mathews is a 26 y.o. female. Chief Complaint Vaginal Bleeding (Follow up: occasionally having the vaginally bleeding: it is light /) HPI: Cait Mathews 26 y.o. woman has a past medical history of Hypertension. who presents for follow up of abnormal vaginal bleeding History of partial hx Cotninues to have bleeding itnermittently US still pending No acute complaints PHQ Screening Over the last 2 weeks, [...] administer the PHQ-9): 0 No Known Allergies No current outpatient medications on file. No current facility-administered medications for this visit. Review of Systems Constitutional: Negative for chills and fever. Respiratory: Negative for cough, chest tightness and shortness of breath. Cardiovascular: Negative for chest pain and palpitations. Gastrointestinal: Negative for abdominal pain and diarrhea. Genitourinary: Positive for vaginal bleeding. Negative for difficulty urinating. Neurological: Negative for headaches. BP 118/76 (BP Location: Right arm, Patient Position: Sitting) Ht 152.4 cm (5') Wt 85.3 kg (188 lb) BMI 36.72 kg/m?? Body mass index is 36.72 kg/m??. Physical Exam Constitutional: Appearance: Normal appearance. [...] Abnormal vaginal bleeding (Primary) Assessment & Plan: Will refer to obgyn for evaluation after tvus Has hx of partial hsitoryectomy Class 2 obesity due to excess calories without serious comorbidity with body mass index (BMI) of 35.0 to 35.9 in adult Assessment & Plan: Wt Readings from Last 3 Encounters: 08/19/22 87.5 kg (193 lb) 06/05/22 87.5 kg (193 lb) 09/04/21 79.4 kg (175 lb) BMI Readings from Last 3 Encounters: 09/07/22 37.69 kg/m?? 08/19/22 37.69 kg/m?? 06/05/22 37.69 kg/m?? Not at goal of bmi <30 Continue diet and exercise BMI Follow-up includes: nutrition counseling and exercise counseling. Return in about 1 year (around 09/08/2023) for Annual physical. documented in this encounter Miscellaneous Notes * Assessment & Plan Note - Apolinar Crowley MD - 09/07/2022 11:54 AM CDTAssociated Problem(s): Class 2 obesity due to excess calories without serious comorbidity with bodymass index (BMI) of 35.0 to 35.9 in adult Wt Readings from Last 3 Encounters: 08/19/22 87.5 kg (193 lb) 06/05/22 87.5 kg (193 lb) 09/04/21 79.4 kg (175 lb) BMI Readings from Last 3 Encounters: 09/07/22 37.69 kg/m?? 08/19/22 37.69 kg/m?? 06/05/22 37.69 kg/m?? Not at goal of bmi <30 Continue diet and exercise BMI Follow-up includes: nutrition counseling and exercise counseling. * Assessment & Plan Note - Apolinar Crowley MD - 09/07/2022 11:53 AM CDTAssociated Problem(s): Abnormal vaginal bleeding Will refer to obgyn for evaluation after tvus Has hx of partial hsitoryectomy documented in this encounter Plan of Treatment Not on file documented as of this encounter Visit Diagnoses Diagnosis Abnormal vaginal bleeding- Primary Other specified noninflammatory disorder of vagina Class 2 obesity due to excess calories without serious comorbidity with body mass index (BMI) of 35.0 to 35.9 in adult documented in this encounter Historical Medications * This list may reflect changes made after this encounter. methylPREDNISolo ne (MEDROL DOSEPACK) 4 mg Dosepack Take 1 tablet (4 mg total) by mouth Take as directed on package 11/09/2022 amoxicillin-clav ulanate (AUGMENTIN) 875-125 mg per tablet Take 1 tablet by mouth 2 (two) times a day 11/09/2022 added in this encounter Care Teams Credit Verifier Relationship Specialty Start Date End Date Apolinar Crowley MD PCP - General Family Medicine 05/20/21 documented as of this encounter
--- OUTSIDE RECORDS SUMMARY | 2024-04-27 18:06 | XMS_ITS | Encounter Summary ---
Author Organization [facility] Healthcare Address [address] [place] [address] Care Team Providers Care Medical Receptionist Medical Assistant Name Role Phone Apolinar Crowley MD Primary Care Provider [phone] Yeni Rajput ASSISTANT ART DIRECTOR Unavailable [phone] Reason for Visit * Reason Comments Forms Request Emotional supports a nim Earache Onset 06/07. Nasal Congestion Sore Throat Encounter Details Date Type Department Care Team ([facility] Contact Info) Description 06/08/2023 3:30 PM BARREL BUNG REMOVER AND DUMPER Office Visit [facility] Medical Group Primary Care at [address] [address] Sonia Hercules NP [address] [place] [id number] Left otitis media, unspecified otitis media type (Primary Dx); Generalized anxiety disorder; Sore throat Social History Tobacco Use Types Packs/Day Years [...] on file Legal Sex Female 6:54 PM BARREL BUNG REMOVER AND DUMPER Gender Identity Not on file Sexual Orientation Not on file documented as of this encounter Last Filed Vital Signs Vital Sign Reading Time Taken Comments Blood Pressure 123/82 06/08/2023 3:36 PM BARREL BUNG REMOVER AND DUMPER Pulse 98 06/08/2023 3:36 PM BARREL BUNG REMOVER AND DUMPER Temperature - - Respiratory Rate 16 06/08/2023 3:36 PM BARREL BUNG REMOVER AND DUMPER Oxygen Saturation 97% 06/08/2023 3:36 PM BARREL BUNG REMOVER AND DUMPER Inhaled Oxygen Concentration - - Weight 86.6 kg (191 lb) 06/08/2023 3:36 PM BARREL BUNG REMOVER AND DUMPER Height 152.4 cm (5') 06/08/2023 3:36 PM BARREL BUNG REMOVER AND DUMPER Body Mass Index 37.3 06/08/2023 3:36 PM BARREL BUNG REMOVER AND DUMPER documented in this encounter Patient Instructions * Patient Instructions* Sonia Hercules NP - 06/08/2023 3:30 PM BARREL BUNG REMOVER AND DUMPER -Start antibiotics today Thank you for time and patience! We hope you have had an excellent care experience in our office today. If you have any questions or concerns, please do not hesitate to reach out through [facility] or call our office at [phone]. - DEANNE Alvarez EL BUNG REMOVER AND DUMPER EL BUNG REMOVER AND DUMPER EL BUNG REMOVER AND DUMPER documented in this encounter Ordered Prescriptions Prescription Sig Dispense Quantity Refills Last Filled Start Date End Date amoxicillin (AMOXIL) 875 mg tabletIndications: Upper Respiratory/HEENT Infection Take 1 tablet (875 mg total) by mouth 2 (two) times a day for 7 days 14 tablet 06/08/2023 06/15/2023 documented in this encounter Progress Notes * Sonia Hercules NP - 06/08/2023 3:30 PM CST Images from the original note were not included. Subjective/Objective Patient ID: Cait Mathews is a 27 y.o. female. Chief Complaint Forms Request (Emotional supports anim), Earache (Onset 06/07.), Nasal Congestion, and Sore Throat Care Team Providers: Patient Care Team: Apolinar Crowley MD as PCP - General (Family Medicine) Yeni Rajput NP as Nurse Practitioner (Gynecology) HPI Patient presents today in regards to filling out paperwork for emotional support animal. Patient reports she has had anxiety for years and that her animals have provided significant improvement with that. She states she is in the process of moving to a new home and the new landlord is requesting proof of need for emotional support animal. Patient also reports acute symptoms of left ear pain, congestion, sore throat, runny nose that started 1-2 days ago. Patient reports members of her household have also been sick. Patient states she has not started tlov-ymo-[id number] medication at this time. Patient does report a history of frequent ear infections. Review of Systems Constitutional: Negative for activity change, appetite change, fatigue and unexpected weight change. HENT: Positive for congestion, ear pain, rhinorrhea and sore throat. Negative for sinus pressure. Respiratory: Negative for cough, chest tightness and shortness of breath. Cardiovascular: Negative for chest pain, palpitations and leg swelling. Gastrointestinal: Negative for abdominal pain, constipation, diarrhea, nausea and vomiting. Neurological: Negative for dizziness, light-headedness, numbness and headaches. Psychiatric/Behavioral: Negative for behavioral problems and sleep disturbance. The patient is nervous/anxious. Physical Exam Constitutional: Appearance: Normal appearance. HENT: Head: Normocephalic. Right Ear: A middle ear effusion is present. Tympanic membrane is not erythematous. Left Ear: A middle ear effusion is present. Tympanic membrane is erythematous. Nose: Congestion and rhinorrhea present. Mouth/Throat: Mouth: Mucous membranes are moist. Pharynx: Posterior oropharyngeal erythema present. Eyes: Extraocular Movements: Extraocular movements intact. Pupils: Pupils are equal, round, and reactive to light. Cardiovascular: Rate and Rhythm: Normal rate and regular rhythm. Pulses: Normal pulses. Heart sounds: Normal heart sounds. Pulmonary: Effort: Pulmonary effort is normal. Breath sounds: Normal breath sounds. Abdominal: General: Abdomen is flat. Musculoskeletal: General: No tenderness or signs of injury. Normal range of motion. Cervical back: Normal range of motion and neck supple. Skin: General: Skin is warm. Neurological: General: No focal deficit present. Mental Status: She is alert and oriented to person, place, and time. Mental status is at baseline. Psychiatric: Mood and Affect: Mood normal. Behavior: Behavior normal. Thought Content: Thought content normal. Judgment: Judgment normal. Vitals: 06/08/23 1536 BP: 123/82 BP Location: Left arm Patient Position: Standing Pulse: 98 Resp: 16 SpO2: 97% Weight: 86.6 kg (191 lb) Height: 152.4 cm (5') Assessment/Plan Diagnoses and all orders for this visit: Left otitis media, unspecified otitis media type (Primary) Comments: -acute, 1-2 day onset -pain, decreased hearing, congestion -history of frequent ear infection -amoxicillin b.i.d. x7 days prescribed Orders: - amoxicillin (AMOXIL) 875 mg tablet; Take 1 tablet (875 mg total) by mouth 2 (two) times a day for7 days Generalized anxiety disorder Assessment & Plan: -chronic, controlled -previously has taken Prozac and trazodone -not currently taking medication regularly -requesting paperwork for emotional support animal -letter provided to patient for emotional support animal supporting documentation Disposition- Discussed medications dosages, usage & potential side effects. Risks and interactions reviewed with patient. Indications for testing reviewed. Patient has been instructed to follow up w PCP or go to ER for any signs or symptoms that are of concern or worsening. Patient verbalizes understanding. The patient was given the opportunity to ask all questions and to have all questions answered. Patient is in agreement with the plan of care Follow up in 3 months with PCP for annual physical Sonia Hercules NP There may be grammatical errors in this note due to use of voice recognition software. EL BUNG REMOVER AND DUMPER documented in this encounter Miscellaneous Notes * Assessment & Plan Note - Sonia Hercules NP - 06/08/2023 8:15 PM BARREL BUNG REMOVER AND DUMPER Associated Problem(s): Generalized anxiety disorder -chronic, controlled -previously has taken Prozac and trazodone -not currently taking medication regularly -requesting paperwork for emotional support animal -letter provided to patient for emotional support animal supporting documentation EL BUNG REMOVER AND DUMPER * Addendum Note - Mercy Colon MA - 06/08/2023 3:30 PM CSTAddended by: MERCY COLON on: 06/09/2023 07:46 AM Modules accepted: Orders EL BUNG REMOVER AND DUMPER documented in this encounter Plan of Treatment Not on file documented as of this encounter Procedures Procedure Name Priority Date/Time Associated Diagnosis Comments POCT RAPID STREP Routine 06/08/2023 3:45 PM BARREL BUNG REMOVER AND DUMPER Sore throat documented in this encounter Results * POCT rapid strep A (06/08/2023 3:45 PM BARREL BUNG REMOVER AND DUMPER) Rapid Strep A, POC Negative Negative Swab 06/08/2023 3:45 PM BARREL BUNG REMOVER AND DUMPER Sonia Hercules ASSISTANT ART DIRECTOR POINT OF CARE TEST SU MCKENZIE Final Result documented in this encounter Visit Diagnoses Diagnosis Left otitis media, unspecified otitis media type- Primary Generalized anxiety disorder Sore throat Acute pharyngitis documented in this encounter Discontinued Medications Medication Sig Discontinue Reason Start Date End Da te oxyCODONE-acetaminophen (PERCOCET) 5-325 mg per tablet Take 1 tablet by mouth every 4 (four) hours as needed for pain 06/02/2023 06/08/2023 documented as of this encounter Historical Medications * This list may reflect changes made after this encounter. oxyCODONE-acetami nophen (PERCOCET) 5-325 mg per tablet Take 1 tablet by mouth every 4 (four) hours as needed for pain 06/02/2023 06/08/2023 added in this encounter Care Teams Medical Receptionist Medical Assistant Relationship Specialty Start Date End Date Apolinar Crowley MD PCP - General Family Medicine 05/20/21 Yeni Rajput NP [address] [place] [address] DR DISLA [address] [place] [address] Nurse Practitioner Gynecology 12/15/22 documented as of this encounter
--- OUTSIDE RECORDS SUMMARY | 2024-04-27 18:06 | XMS_ITS | Encounter Summary ---
Author Organization [facility] Healthcare Address [address] [place] [address] Care Team Providers Care Ethics Instructor Name Role Phone Apolinar Crowley MD Primary Care Provider [phone] Reason for Visit * Diagnostic Imaging (Routine) - Closed Specialty Diagnoses / Procedures Referred By Contac t Referred To Contact Diagnoses Abnormal vaginal bleeding Cyst of ovary, unspecified laterality Procedures US Pelvis W Endovaginal US Transvaginal Apolinar Crowley MD [address] [place] [address] Phone: tel: fax: [address] [address] Referral ID Status Reason Start Date Expiration Date Visits Re quested Visits Authorized [id number] Closed 11/02/2022 12/02/2023 1 1 Encounter Details Date Type Department Care Team (Latest Contact Info) Description 12/14/2022 8:30 AM CDT - 12/14/2022 11:59 PM CDT Hospital Encounter [facility] [address] [place] [address] Abnormal vaginal bleeding; Cyst of ovary, unspecified laterality Discharge Disposition: Discharge to home or self care Social History Tobacco Use Types Packs/Day Years [...] on file 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 Gender Identity Not on file Sexual Orientation Not on file documented as of this encounter Medications at Time of Discharge cetirizine (ZyrTEC) 10 mg tablet Take 1 tablet (10 mg total) by mouth daily as needed for allergies 30 tablet 12/03/2022 3 escitalopram (LEXAPRO) 10 mg tablet Take 1 tablet (10 mg total) by mouth daily 90 tablet 11/09/2022 3 traZODone (DESYREL) 50 mg tablet Take 1 tablet (50 mg total) by mouth nightly 30 tablet 11/09/2022 3 documented as of this encounter Discharge Disposition Disposition Code Departure Means Destination Discharge to home or self care documented in this encounter Plan of Treatment Not on file documented as of this encounter Procedures Procedure Name Priority Date/Time Associated Diagnosis Comments US PELVIS W ENDOVAGINAL Schedule Routine, Read Routine (OP Routine) 12/14/2022 10:13 AM CDT Abnormal vaginal bleeding Cyst of ovary, unspecified laterality documented in this encounter Results * US Pelvis W Endovaginal (12/14/2022 10:13 AM CDT) Anatomical Region Laterality Modality Pelvis N/A Ultrasound 12/14/2022 11:3 3 AM CDT Impressions 12/14/2022 11:33 AM CDT Status post hysterectomy. Complex right ovarian cyst, likely hemorrhagic in nature, measuring 3.1 x 2.9 cm in size. Electronically signed by: Gustavo Jones M.D. Narrative 12/14/2022 11:33 AM CDT EXAMINATION: US PELVIS W ENDOVAGINAL HISTORY: The patient is a 26-year-old female who presents with vaginal bleeding. ??Has had a prior hysterectomy. TECHNIQUE: Transabdominal and transvaginal pelvic sonogram was performed with pierre scale imaging, color Doppler imaging and spectral waveform analysis. FINDINGS: The patient has had a prior hysterectomy. ??Vaginal cuff is normal in appearance. ??Nabothian cysts are seen in the cervix with the largest measuring 8 x 9 mm in size. The right ovary measures 4.0 x 3.9 x 2.7 cm and the left ovary measures 3.0 x 1.8 x 1.9 cm in size. Color Doppler imaging reveals normal blood flow to both ovaries. Within the right ovary is a complex right ovarian cyst measuring 3.1 x 2.9 cm in size. No free fluid seen in the cul-de-sac. Procedure Note Gustavo Jones MD - 12/14/2022 EXAMINATION: US PELVIS W ENDOVAGINAL HISTORY: The patient is a 26-year-old female who presents with vaginal bleeding. Has had a prior hysterectomy. TECHNIQUE: Transabdominal and transvaginal pelvic sonogram was performed with pierre scale imaging, color Doppler imaging and spectral waveform analysis. FINDINGS: The patient has had a prior hysterectomy. Vaginal cuff is normal in appearance. Nabothian cysts are seen in the cervix with the largest measuring 8 x 9 mm in size. The right ovary measures 4.0 x 3.9 x 2.7 cm and the left ovary measures 3.0 x 1.8 x 1.9 cm in size. Color Doppler imaging reveals normal blood flow to both ovaries. Within the right ovary is a complex right ovarian cyst measuring 3.1 x 2.9 cm in size. No free fluid seen in the cul-de-sac. IMPRESSION: Status post hysterectomy. Complex right ovarian cyst, likely hemorrhagic in nature, measuring 3.1 x 2.9 cm in size. Electronically signed by: Gustavo Jones M.D. Apolinar Crowley MD [facility] US PROCEDURES Final Result documented in this encounter Visit Diagnoses Diagnosis Abnormal vaginal bleeding Other specified noninflammatory disorder of vagina Cyst of ovary, unspecified laterality documented in this encounter Care Teams Ethics Instructor Relationship Specialty Start Date End Date Apolinar Crowley MD PCP - General Family Medicine 05/20/21 documented as of this encounter
--- OUTSIDE RECORDS SUMMARY | 2024-04-27 18:06 | XMS_ITS | Encounter Summary ---
Author Organization 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 Gender Identity Not on file Sexual Orientation Not on file documented as of this encounter Plan of Treatment Not on file documented as of this encounter Procedures Procedure Name Priority Date/Time Associated Diagnosis Comments DIFFERENTIAL AUTO Routine 08/22/2022 8:3 2 AM CDT Abnormal vaginal bleeding CBC WITH AUTO DIFFERENTIAL Routine 08/22/2022 8:32 AM CDT Abnormal vaginal bleeding PROLACTIN Routine 08/22/2022 8:32 AM CDT Abnormal vaginal bleeding TSH Routine 08/22/2022 8:32 AM CDT Abnormal vaginal bleeding documented in this encounter Results * Differential, auto (08/22/2022 8:32 AM CDT) Neutrophil abs 4.8 1.7 - 6.5 K/cumm [facility] ([place] Imm gran abs 0.0 0.0 - 0.1 K/cumm [facility] Lymphocyte abs 2.2 0.8 - 3.3 K/cumm [facility] ([place]) Monocyte abs 0.6 0.2 - 0.8 K/cumm [facility] ([place] Eosinophil abs 0.1 0.0 - 0.5 K/cumm [facility] ([place] Basophil abs 0.1 0.0 - 0.1 K/cumm [facility] ([place] Neutrophil pct 61.4 % [facility] ([place] Comment: Interpretive Data Percent cell count reference ranges are not reported, since discordance with absolute values may lead to misinterpretation of CBC data. Current Interpretive Data was last revised on 2017. Imm gran pct 0.5 % [facility] ([place] Comment: Interpretive Data Percent cell count reference ranges are not reported, since discordance with absolute values may lead to misinterpretation of CBC data. Current Interpretive Data was last revised on 2017. Lymphocyte pct 28.1 % [facility] ([place] Comment: Interpretive Data Percent cell count reference ranges are not reported, since discordance with absolute values may lead to misinterpretation of CBC data. Current Interpretive Data was last revised on 2017. Monocyte pct 7.9 % [facility] ([place] Comment: Interpretive Data Percent cell count reference ranges are not reported, since discordance with absolute values may lead to misinterpretation of CBC data. Current Interpretive Data was last revised on 2017. Eosinophil pct 1.2 % [facility] ([place] Comment: Interpretive Data Percent cell count reference ranges are not reported, since discordance with absolute values may lead to misinterpretation of CBC data. Current Interpretive Data was last revised on 2017. Basophil pct 0.9 % [facility] ([place] Comment: Interpretive Data Percent cell count reference ranges are not reported, since discordance with absolute values may lead to misinterpretation of CBC data. Current Interpretive Data was last revised on 2017. Blood 08/22/2022 8:32 AM CDT 08/22/2022 9:14 AM CDT us Henrietta Cole MD LAB BLOOD ORDERABLES Final Result [facility] [place] [address] * CBC with auto differential (08/22/2022 8:32 [...] 8:32 AM CDT 08/22/2022 9:14 AM CDT us Henrietta Cole MD LAB BLOOD ORDERABLES Final Result [facility] [place] [address] * TSH (08/22/2022 8:32 AM CDT) Thyroid Stimulating Hormone 3.19 0.30 - 4.20 mcIUnit/mL [facility]) Blood 08/22/2022 8:32 AM CDT 08/22/2022 8:56 AM CDT Henrietta Cole MD LAB BLOOD ORDERABLES Final Result Performing Organization Address City/[facility] Co de Phone Number [facility] ([place]) [address] [place] [address] * (ABNORMAL) Prolactin (08/22/2022 8:32 AM CDT) Prolactin 31.8(H) 4.8 - 23.3 ng/mL [facility] ([place]) Comment:Testing performed by : [facility], [address] [place] [address], [id number] Blood 08/22/2022 8:32 AM CDT 08/22/2022 11:16 AM CDT Henrietta Cole MD LAB BLOOD ORDERABLES Final Result Performing Organization Address [facility] Co de Phone Number [facility] ([place] [address] [place] [address] documented in this encounter Visit Diagnoses Diagnosis Abnormal vaginal bleeding Other specified noninflammatory disorder of vagina documented in this encounter Care Teams Emergency Medical Services Coordinator Relationship Specialty Start Date End Date Apolinar Crowley MD PCP - General Family Medicine 05/20/21 documented as of this encounter
--- OUTSIDE RECORDS SUMMARY | 2024-04-27 18:06 | XMS_ITS | Encounter Summary ---
Author Organization [facility] Medical Group Address [address] [place] [address] Care Team Providers Care Chemical Compounder Name Role Phone Apolinar Crowley MD Primary Care Provider [phone] Encounter Details Date Type Department Care Team ([facility] st Contact Info) Description 08/20/2022 Orders Only [facility] Medical [facility] Primary Care at [address] [place] [address] Henrietta Cole MD [address] [place] [address] [address] [place] [address] Abnormal vaginal bleeding (Primary Dx) Social History [...] on file Legal 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 Gender Identity Not on file Sexual Orientation Not on file documented as of this encounter Miscellaneous Notes * Addendum Note - Leann Lau - 08/20/2022 8:35 AM CDTAddended by: LEANN LAU on: 09/01/2022 12:36 PM Modules accepted: Orders documented in this encounter Plan of Treatment Not on file documented as of this encounter Visit Diagnoses Diagnosis Abnormal vaginal bleeding- Primary Other specified noninflammatory disorder of vagina documented in this encounter Care Teams Chemical Compounder Relationship Specialty Start Date End Date Apolinar Crowley MD PCP - General Family Medicine 05/20/21 documented as of this encounter
--- OUTSIDE RECORDS SUMMARY | 2024-04-27 18:06 | XMS_ITS | Encounter Summary ---
Author Organization [facility] Healthcare Address [address] [place] [address] Care Team Providers Care County Home Demonstrator Name Role Phone Apolinar Crowley MD Primary Care Provider Reason for Visit * Diagnostic Imaging (Routine) - Closed Specialty Diagnoses / Procedures Referred By Contdanuta t Referred To Contact Diagnoses Abnormal vaginal bleeding Procedures US Pelvis W Endovaginal US Transvaginal Henrietta Cole MD [address] [place] [address] Phone: tel: fax: [address] [address] Referral ID Status Reason Start Date Expiration Date Visits Re quested Visits Authorized [id number] Closed 09/01/2022 10/01/2023 1 1 Encounter Details Date Type Department Care Team (Latest Contact Info) Description 10/30/2022 2:01 PM CDT - 10/30/2022 11:59 PM CDT Hospital Encounter [facility] [address] [place] [address] Abnormal vaginal bleeding Discharge Disposition: Discharge to home or self [...] on file 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 Gender Identity Not on file Sexual Orientation Not on file documented as of this encounter Medications at Time of Discharge amoxicillin-clav ulanate (AUGMENTIN) 875-125 mg per tablet Take 1 tablet by mouth 2 (two) times a day 11/09/2022 methylPREDNISolo ne (MEDROL DOSEPACK) 4 mg Dosepack Take 1 tablet (4 mg total) by mouth Take as directed on package 11/09/2022 documented as of this encounter Discharge Disposition Disposition Code Departure Means Destination Discharge to home or self care documented in this encounter Plan of Treatment Not on file documented as of this encounter Procedures Procedure Name Priority Date/Time Associated Diagnosis Comments US PELVIS W ENDOVAGINAL Schedule Routine, Read Routine (OP Routine) 10/30/2022 2:59 PM CDT Abnormal vaginal bleeding documented in this encounter Results * US Pelvis W Endovaginal (10/30/2022 2:59 PM CDT) Anatomical Region Laterality Modality Pelvis N/A Ultrasound 10/30/2022 3:22 PM CDT Impressions 10/30/2022 3:22 PM CDT 1. ??Hysterectomy. 2. ??Echogenic avascular right ovarian lesion may represent hemorrhagic cyst versus endometrioma. ??Consider follow-up imaging in 6 weeks to evaluate for interval change. Electronically signed by: Milo Gonzalez II, D.O. Narrative 10/30/2022 3:22 PM CDT Exam: Transabdominal and transvaginal ultrasound of the pelvis. TECHNIQUE: Grayscale and color Doppler images were obtained through the pelvic structures using a transabdominal and transvaginal approach. HISTORY: Abnormal vaginal bleeding. COMPARISON: None. Findings: Hysterectomy demonstrated. ??Several nabothian cysts are demonstrated near the vaginal cuff with largest measuring approximately 0.9 cm. The right ovary measures 4.3 x 3.3 x 2.6 cm. The right ovary demonstrates normal flow on color Doppler imaging. Normal arterial and venous waveforms demonstrated on spectral Doppler imaging. Echogenic mass with no definitive flow in the right ovary may represent a hemorrhagic cyst. The left ovary measures 3.5 x 1.8 x 1.9 cm.. The left ovary demonstrates normal flow on color Doppler imaging. Normal arterial and venous waveforms demonstrated on spectral Doppler imaging. No free fluid is demonstrated in the pelvis. Procedure Note Milo Gonzalez II, DO - 10/30/2022 Exam: Transabdominal and transvaginal ultrasound of the pelvis. TECHNIQUE: Grayscale and color Doppler images were obtained through the pelvic structures using a transabdominal and transvaginal approach. HISTORY: Abnormal vaginal bleeding. COMPARISON: None. Findings: Hysterectomy demonstrated. Several nabothian cysts are demonstrated near the vaginal cuff with largest measuring approximately 0.9 cm. The right ovary measures 4.3 x 3.3 x 2.6 cm. The right ovary demonstrates normal flow on color Doppler imaging. Normal arterial and venous waveforms demonstrated on spectral Doppler imaging. Echogenic mass with no definitive flow in the right ovary may represent a hemorrhagic cyst. The left ovary measures 3.5 x 1.8 x 1.9 cm.. The left ovary demonstrates normal flow on color Doppler imaging. Normal arterial and venous waveforms demonstrated on spectral Doppler imaging. No free fluid is demonstrated in the pelvis. IMPRESSION: 1. Hysterectomy. 2. Echogenic avascular right ovarian lesion may represent hemorrhagic cyst versus endometrioma. Consider follow-up imaging in 6 weeks to evaluate for interval change. Electronically signed by: Milo Gonzalez II, D.O. Henrietta Cole MD IM US PROCEDURES Fin al Result documented in this encounter Visit Diagnoses Diagnosis Abnormal vaginal bleeding Other specified noninflammatory disorder of vagina documented in this encounter Care Teams County Home Demonstrator Relationship Specialty Start Date End Date Apolinar Crowley MD PCP - General Family Medicine 05/20/21 documented as of this encounter
--- OUTSIDE RECORDS SUMMARY | 2024-04-27 18:06 | XMS_ITS | Encounter Summary ---
Author Organization [facility] Address [address] [place] [address] Care Team Providers Care Stock Selector Name Role Phone Apolinar Crowley MD Primary Care Provider [phone] Reason for Visit * Reason Comments Earache Encounter Details Date Type Department Care Team ([facility] Contact Info) Description 12/03/2022 4:30 PM CDT Office Visit 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 Gender Identity Not on file Sexual Orientation Not on file documented as of this encounter Last Filed Vital Signs Vital Sign Reading Time Taken Comments Blood Pressure 124/72 12/03/2022 4:29 PM CDT Pulse 79 12/03/2022 4:29 PM CDT Temperature 36.8 ??C (98.3 ??F) 12/03/2022 4:29 PM CD T Respiratory Rate - - Oxygen Saturation 98% 12/03/2022 4:29 PM CDT Inhaled Oxygen Concentration - - Weight 85.7 kg (189 lb) 12/03/2022 4:29 PM CDT Height 152.4 cm (5') 12/03/2022 4:29 PM CDT Body Mass Index 36.91 12/03/2022 4:29 PM CDT documented in this encounter Patient Instructions * Patient Instructions* Henrietta Cole MD - 12/03/2022 4:30 PM CDT My medical office technologist and I are thankful you have trusted us with your care, and hope that you received EXCELLENT care today! Please do not hesitate to call if you have any questions or concerns. You may receive a phone call or text asking about your care today. We would love to hear your input and again, hope your visit was as EXCELLENT as possible, even if you were not feeling your best! -Dr. Cole documented in this encounter Ordered Prescriptions Prescription Sig Dispense Quantity Refills Last Filled Start Date End Date cetirizine (ZyrTEC) 10 mg tablet Take 1 tablet (10 mg total) by mouth daily as needed for allergies 30 tablet 12/03/2022 3 documented in this encounter Progress Notes * Henrietta Cole MD - 12/03/2022 4:30 PM CDT Images from the original note were not included. Subjective/Objective Patient ID: Cait Mathews is a 27 y.o. female. Chief Complaint Earache Earache Pertinent negatives include no ear discharge or rhinorrhea. 27F presenting for sensation of fluid in the ear. This has been going on since she had an ear infection. She denies any pain, fevers, or any other systemic symptoms. No sinus pressure. Nothing makes it better or worse. She is traveling to [place] soon and wanted to be sure everything was ok. Review of Systems HENT: Negative for ear discharge, postnasal drip, rhinorrhea, sinus pressure and sinus pain. Sensation of fluid in the ear Vitals: 12/03/22 1629 BP: 124/72 BP Location: Left arm Patient Position: Sitting Pulse: 79 Temp: 36.8 ??C (98.3 ??F) TempSrc: Oral SpO2: 98% Weight: 85.7 kg (189 lb) Height: 152.4 cm (5') No visits with results within 1 Month(s) from this visit. Latest known visit with results is: Lab on 08/28/2022 Component Date Value Prolactin 08/28/2022 17.5 Physical Exam HENT: Left Ear: Hearing, tympanic membrane, ear canal and external ear normal. No drainage or swelling. No middle ear effusion. Tympanic membrane is not perforated, erythematous or bulging. Assessment/Plan Diagnoses and all orders for this visit: Sensation of fullness in left ear (Primary) Assessment & Plan: New No sign of infection on exam Instructed to take zyrtec daily If no improvement can consider seeing ent F/u prn Class 2 obesity with body mass index (BMI) of 36.0 to 36.9 in adult, unspecified obesity type, unspecified whether serious comorbidity present Other orders - cetirizine (ZyrTEC) 10 mg tablet; Take 1 tablet (10 mg total) by mouth daily as needed for allergies Side effects, risks, interactions reviewed with patient. [...] Plan Note - Henrietta Cole MD - 12/03/2022 4:52 PM CDT Associated Problem(s): Sensation of fullness in left ear New No sign of infection on exam Instructed to take zyrtec daily If no improvement can consider seeing ent F/u prn documented in this encounter Plan of Treatment Not on file documented as of this encounter Visit Diagnoses Diagnosis Sensation of fullness in left ear- Primary Class 2 obesity with body mass index (BMI) of 36.0 to 36.9 in adult, unspecified obesity type, unspecified whether serious comorbidity present documented in this encounter Care Teams Stock Selector Relationship Specialty Start Date End Date Apolinar Crowley MD PCP - General Family Medicine 05/20/21 documented as of this encounter
--- OUTSIDE RECORDS SUMMARY | 2024-04-27 18:07 | XMS_ITS | Encounter Summary ---
Author Organization [facility] Address [address] [place] [address] Care Team Providers Care Dry Mixer Name Role Phone Apolinar Crowley MD Primary Care Provider [phone] Reason for Visit * Reason Onset Date Comments Additional Services Or Orders 04/14/2022 Appointment Request 04/14/2022 Encounter Details Date Type Department Care Team ([facility] Contact Info) Description 04/14/2022 Telephone [facility] Primary Care at [address] [place] [address] Apolinar Crowley MD [address] [place] [address] [address] [place] [address] Additional Services Or Orders; Appointment Request Social History Tobacco Use Types Packs/Day Years Used Date Smoking Tobacco: Former Cigarettes 0.5 10 0 05/10/2010 - 05/09/2020 Smokeless Tobacco: Never Alcohol Use Standard Drinks/Week Comments No 0 (1 standard drink = 0.6 oz pur e alcohol) PHQ-2 Answer Date Recorded PHQ-2 Total Score (If total score is 3 or more points, staff should administer the PHQ-9) 0 05/20/2021 Comments No Sex and Gender Information Value Date Recorded Sex Assigned at Not on file 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 LAUNDERER * Telephone Encounter - Michelle Chaudhari MA - 04/14/2022 4:19 PM CST Appointment Request What visit type does the patient need? Visit Type: Established Patient What is the reason for the visit? Right calf pain What is the reason we were unable to schedule the appointment? Current appointment availability didnot meet patient's need. Patient was offered an appt for 04/27/2022 and refused stating she was needing an appt tomorrow. If applicable, was a nurse practitioner or other provider offered? Yes Caller's Callback #: [phone] Additional Comments: Patient aware of the PCP thread notes and states she was seen at the [facility] ED this morning and was advised to f/up with PCP stating pt might need an MRI to rule out any torn muscles/ligaments. Please verify If pt can still be seen in the clinic since pt does have a past of 4 no shows. Does message need to be routed? Yes-Action Needed LAUNDERER * Telephone Encounter - Silvia Saenz MA - 04/14/2022 11:17 AM CST Please advise. LAUNDERER * Telephone Encounter - Silvia Saenz MA - 04/14/2022 11:17 AM CST We're not the ordering provider for MRI in July. LAUNDERER * Telephone Encounter - Sarah Moran - 04/14/2022 9:57 AM CST Additional Services or Orders Type of Service Requested:Testing Reason for Request (e.g. condition/symptom, date of COVID exposure if applicable): MRI, pt cannot apply weight for the back of R Leg Details Regarding Additional Services (e.g. type of home health, type of equipment, type of test, etc.): Where will services be performed? (if outside of the practice, facility name, address, phone/fax offacility): Caller's Callback #: [phone] Additional Comments: [facility] and they cannot do [facility], pt wants somewhereclose and fast where they can get her in to get this done Does message need to be routed?Yes-Action Needed LAUNDERER documented in this encounter Plan of Treatment Not on file documented as of this encounter Visit Diagnoses Not on filedocumented in this encounter Care Teams Dry Mixer Relationship Specialty Start Date End Date Apolinar Crowley MD PCP - General Family Medicine 05/20/21 documented as of this encounter
--- OUTSIDE RECORDS SUMMARY | 2024-04-27 18:07 | XMS_ITS | Encounter Summary ---
Author Organization [facility] Address [address] [place] [address] Care Team Providers Care Horse Buyer Name Role Phone Apolinar Crowley MD Primary Care Provider Reason for Visit * Reason Comments Post-op Encounter Details Date Type Department Care Team ([facility] st Contact Info) Description 09/04/2021 8:30 AM CDT Office Visit [facility] [address] [place] [id number] Giuseppe Cortez MD [address] [address] Complex tear of medial meniscus of left knee as current injury, subsequent encounter (Primary Dx) Social History Tobacco Use Types [...] on file 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 She has done extremely well. She is pain- free and fully functional/back at work. Incision/s is/are benign. Sutures have been removed. There is no redness, drainage or wound edge separation. Neurovascular status is intact. There is no evidence of complication. Gait pattern is normal. Diagnosis-status post left knee arthroscopic partial medial meniscectomy for a bucket-handle tear. Plan-suture removal. Mobilize as tolerated. No need for formal physical therapy. Return to this office p.r.n. documented in this encounter Plan of Treatment Not on file documented as of this encounter Visit Diagnoses Diagnosis Complex tear of medial meniscus of left knee as current injury, subsequent encounter- Primary documented in this encounter Additional Health Concerns Infection Onset Date Last Indicated Resolved Time COVID: Recovered Comment:Added based on recent COVID infection. 07/07/2021 07/16/2021 11/04/2021 3:05 AM C DT documented as of this encounter Care Teams Horse Buyer Relationship Specialty Start Date End Date Apolinar Crowley MD PCP - General Family Medicine 05/20/21 documented as of this encounter
--- OUTSIDE RECORDS SUMMARY | 2024-04-27 18:07 | XMS_ITS | Encounter Summary ---
Author Organization [facility] Address [address] [place] [address] Care Team Providers Care Ed Tech Name Role Phone Apolinar Crowley MD Primary Care Provider [phone] Encounter Details Date Type Department Care Team (Late st Contact Info) Description 05/20/2021 Telephone [facility] [address] [place] [address] Apolinar Crowley MD [address] [place] [address] [address] [place] [address] Social History Tobacco Use Types Packs/Day Years Used Date Smoking Tobacco: Former Cigarettes 0.5 10 0 05/10/2010 - 05/09/2020 Smokeless Tobacco: Never Alcohol Use Standard Drinks/Week Comments No 0 (1 standard drink = 0.6 oz pur e alcohol) PHQ-2 Answer Date Recorded PHQ-2 Total Score (If total score is 3 or more points, staff should administer the PHQ-9) 0 05/20/2021 Comments Yes Sex and Gender Information Value Date Recorded Sex Assigned at Not on file 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 The only dermatologists that we know of that accept mer[place] are at [facility] and she is requesting we send a referral there. AL FRONT OFFICE ASSISTANT documented in this encounter Plan of Treatment Not on file documented as of this encounter Visit Diagnoses Diagnosis Skin lesion- Primary Unspecified disorder of skin and subcutaneous tissue documented in this encounter Care Teams Ed Tech Relationship Specialty Start Date End Date Apolinar Crowley MD PCP - General Family Medicine 05/20/21 documented as of this encounter
--- OUTSIDE RECORDS SUMMARY | 2024-04-27 18:07 | XMS_ITS | Encounter Summary ---
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 Gender Identity Not on file Sexual Orientation Not on file documented as of this encounter Plan of Treatment Not on file documented as of this encounter Procedures Procedure Name Priority Date/Time Associated Diagnosis Comments SCAN - RADIOLOGY/IMAGING 08/04/2021 documented in this encounter Results * SCAN - RADIOLOGY/IMAGING (08/04/2021) Anatomical Region Laterality Modality Other us Provider Scanning Final Result documented in this encounter Visit Diagnoses Not on filedocumented in this encounter Additional Health Concerns Infection Onset Date Last Indicated Resolved Time COVID: Recovered Comment:Added based on recent COVID infection. 07/07/2021 07/16/2021 11/04/2021 3:05 AM C DT documented as of this encounter Care Teams Office Services Coordinator Relationship Specialty Start Date End Date Apolinar Crowley MD PCP - General Family Medicine 05/20/21 documented as of this encounter
--- OUTSIDE RECORDS SUMMARY | 2024-04-27 18:07 | XMS_ITS | Encounter Summary ---
Author Organization [facility] Address [address] [place] [address] Phone Care Team Providers Care Engraver Rubber Name Role Phone Apolinar Crowley MD Primary Care Provider [phone] Reason for Visit * Reason Comments Suspicious Skin Lesion * Dermatology (Routine) - Closed Specialty Diagnoses / Procedures Referred By Contdanuta t Referred To Contact Dermatology Diagnoses Nonscarring hair loss Skin lesion Apolinar Crowley MD Phone: tel: fax: Teja Serra MD Phone: tel: fax: Referral ID Status Reason Start Date Expiration Date V isits Requested Visits Authorized [id number] Closed Specialty Services Required 05/20/2021 06/19/2022 25 25 Encounter Details Date Type Department Care Team (Late st Contact Info) Description 10/03/2021 9:30 AM CDT Office Visit [facility] [address] [facility] [address] [place] [address] Kiran Gonsales MD PhD [address] [address] Atypical nevus (Primary Dx); Multiple benign nevi Social History Tobacco Use Types Packs/Day Years [...] on file 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 Cait Mathews [id number] 10/03/21 CHIEF COMPLAINT: spot on face HISTORY OF PRESENT ILLNESS Cait Mathews is a 25 y.o. female new to clinic with no history of skin cancer, here for evaluation/management of spot on face. Today, pt reports a spot on her L temporal scalp that has been present for at least 5 years, thinksit has grown slowly, otherwise asymptomatic. She notes a similar spot near her R ear that has appeared recently, asymptomatic and not bothersome. No other skin concerns. No other associated symptoms, exacerbating or alleviating factors. No other painful, bleeding or pruritic areas. No other new, changing or otherwise suspicious lesions. HISTORY Medications and allergies reviewed in chart Past medical, family and social history reviewed and noncontributory unless noted in HPI. History of NMSC: no History of Melanoma: no Family Hx of MM: possibly grandmother Past Medical History: Diagnosis Date ??? Hypertension During pregancy ROS (based on patient form plus HPI): Constitutional: [ ] lack of energy, [ ] unexplained weight gain/loss, [ ] appetite loss, [ ] fever,[ ] night sweats, [ ] pain with mastication, [ ] scalp tenderness, [ ] prior cancer diagnosis, [ ] other ___ ENT: [ ] difficulty hearing, [ ] sinus problems, [ ] runny nose, [ ] post-nasal drip, [ ] ringing in ears, [ ] mouth sores, [ ] loose teeth, [ ] ear pain, [ ] nosebleeds, [ ] sore throat, [ ] facial pain/numbness, [ ] other ___ CV: [ ] irregular heartbeat, [ ] racing heart, [ ] chest pains, [ ] swelling of feet/legs, [ ] claudication, [ ] other ___ Resp: [ ] shortness of breath, [ ] prolonged cough, [ ] sputum production, [ ] coughing up blood, [] wheezing, [ ] pleurisy, [ ] prior TB diagnosis, [ ] home O2 requirement, [ ] abnormal CXR, [ ] other ___ GI: [ ] heartburn, [ ] difficulty swallowing, [ ] food intolerance, [ ] nausea, [ ] vomiting, [ ] abdominal pain, [ ] constipation, [ ] diarrhea, [ ] unexplained changes in bowel habits, [ ] bloody stool, [ ] fecal incontinence, [ ] other ___ : [ ] painful urination, [ ] frequent urination, [ ] urgency, [ ] prostate problems, [ ] bladder problems, [ ] impotence, [ ] other ___ MSK: [ ] joint pain, [ ] shoulder pain, [ ] muscle aches, [ ] joint swelling, [ ] joint deformity, [ ] back pain, [ ] other ___ Integ: [ ] persistent rash, [ ] itching, [ ] new skin lesions, [x] change in existing skin lesions,[ ] hair loss/increase, [ ] breast changes, [ ] other ___ Neuro: [ ] frequent headaches, [ ] double vision, [ ] vision loss, [ ] change in sensation, [ ] dizziness, [ ] weakness, [ ] problems with walking/balance, [ ] tremor, [ ] uncontrolled motions, [ ] loss of consciousness, [ ] other ___ Psych: [ ] insomnia, [ ] irritability, [ ] depression, [ ] anxiety, [ ] recurrent bad thoughts, [ ]mood swings, [ ] hallucinations, [ ] compulsions, [ ] other ___ Endocrine: [ ] heat/cold intolerance, [ ] frequent hunger/urination/thirst, [ ] menstrual irregularities, [ ] changes in sex drive, [ ] other ___ Heme: [ ] easy bleeding, [ ] easy bruising, [ ] unexplained swollen areas, [ ] abnormal blood tests, [ ] anemia, [ ] leukemia, [ ] other ___ Allergy/Immunology: [ ] seasonal allergies, [ ] hay fever symptoms, [ ] frequent infections, [ ] HIV exposure, [ ] other ___ PHYSICAL EXAM: pt denied gown Gen and Cardio: Well-developed and well-nourished in no acute distress. Alert oriented and interacts appropriately. Normal conjunctiva. Normal skin sensation. No lower extremity edema. Derm: A full cutaneous exam was performed with close inspection and palpation where indicated and as allowed by the patient of the hair, scalp, face, neck, back, right upper, left upper extremities, hands, nails and digits. All skin examined was normal with exception of these notable exam findings: 1cm x 1.2xcm plaque with erythematous base on L temporal scalp Plaque with erythematous base R temporal scalp Licona and brown even macules and papules on trunk ASSESSMENT AND PLAN Atypical nevus, L temporal scalp Nevi, trunk - Benign, reassurance. No clinically concerning lesions of this nature noted on exam today - ABCD's reviewed with patient and patient was instructed to return to the clinic should any change, pain or bleeding occur. Patient was advised on daily photoprotection including broad spectrum sunscreen use. Discussed signs of skin cancer and need for routine follow up MD skin exams and monthly self skin checks - Discussed treatment options including observation and surgical removal; pt elects to monitor at this time. - Will monitor nevus on L temporal scalp for changes and follow-up in clinic in 6 months - Photo taken today Return visit: 6 months Patient was instructed to return sooner should they develop any new, changing and/or worsening lesions, side effects of any recommended treatments, or as needed. SCRIBE ATTESTATION By signing my name, I, jim Osman, attest that this documentation has been prepared under the direction and in the presence of Dr. Gonsales 10/03/21 9:31 AM ATTENDING ATTESTATION I personally performed the services described in this documentation, reviewed and edited the documentation which was dictated to the scribe in my presence, and it accurately records my words and actions. Electronically Signed: Kiran Gonsales MD, PhD 10/03/2021 9:31 AM documented in this encounter Plan of Treatment Not on file documented as of this encounter Visit Diagnoses Diagnosis Atypical nevus- Primary Benign neoplasm of skin, site unspecified Multiple benign nevi documented in this encounter Additional Health Concerns Infection Onset Date Last Indicated Resolved Time COVID: Recovered Comment:Added based on recent COVID infection. 07/07/2021 07/16/2021 11/04/2021 3:05 AM C DT documented as of this encounter Care Teams Engraver Rubber Relationship Specialty Start Date End Date Apolinar Crowley MD PCP - General Family Medicine 05/20/21 documented as of this encounter
--- OUTSIDE RECORDS SUMMARY | 2024-04-27 18:07 | XMS_ITS | Encounter Summary ---
Author Organization [facility] Address [address] [place] [address] Care Team Providers Care Ferry Terminal Supervisor Name Role Phone No, Physician Primary Care Provider [phone] Encounter Details Date Type Department Care Team (Late st Contact Info) Description 12/04/2019 Patient Self-Triage [facility] [address] [place] [address] Mychart, Generic Provider [address] [place], [place] [id number] Social History Tobacco Use Types Packs/Day Years Used Date Smoking Tobacco: Former Smokeless Tobacco: Never Alcohol Use Standard Drinks/Week Comments No 0 (1 standard drink = 0.6 oz pur e alcohol) Comments Yes Sex and Gender Information Value Date Recorded Sex Assigned at Not on file 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
--- OUTSIDE RECORDS SUMMARY | 2024-04-27 18:07 | XMS_ITS | Encounter Summary ---
Author Organization [facility] Address [address] [place] [address] Care Team Providers Care Basketball Scout Name Role Phone Apolinar Crowley MD Primary Care Provider [phone] Reason for Visit * Reason Onset Date Comments No Show- Follow Up 04/28/2022 Encounter Details Date Type Department Care Team ([facility] Contact Info) Description 04/28/2022 Telephone [facility] Primary Care at [address] [place] [address] Apolinar Crowley MD [address] [place] [address] [address] [place] [address] No Show- Follow Up Social History Tobacco Use Types Packs/Day Years [...] on file 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 thanks OSITION TILE LAYER * Telephone Encounter - Nita Miles - 05/15/2022 8:55 AM CST 05/15/22-left message on machine. ad OSITION TILE LAYER * Telephone Encounter - Nita Miles - 05/14/2022 9:34 AM CST 05/14/22-left message on machine. adb OSITION TILE LAYER * Telephone Encounter - Nita Miles - 05/12/2022 10:39 AM CST 05/12/22-left message on machine to reschedule no show appt. adb OSITION TILE LAYER * Telephone Encounter - Nita Miles - 04/28/2022 10:46 AM CST 04/28/22-no show letter sent. adb OSITION TILE LAYER * Telephone Encounter - Josey Lara MA - 04/28/2022 9:42 AM CST ----- Message from Apolinar Crowley MD sent at 04/28/2022 7:54 AM COMPOSITION TILE LAYER ----- This pt has now no showed 5 times this year with multiple cancellations as well. Needs letter sent out. Please do not contact to reschedule at this time OSITION TILE LAYER * Telephone Encounter - Josey Lara MA - 04/28/2022 8:50 AM CST NO SHOW Appt date/time: 04/28/2022 560A Reason for appt: ED f/u NOV: none VENECIA: 03/18/22 NO SHOW'd # of cxl or no shows in last year: CXL: 1 N/S: 5 Controlled Rx: None per RG Per RG request, letter needs to be sent to patient addressing the five no shows within the last year and to warn her that if this continues she will be dismissed from his care. OSITION TILE LAYER documented in this encounter Plan of Treatment Not on file documented as of this encounter Visit Diagnoses Not on filedocumented in this encounter Care Teams Basketball Scout Relationship Specialty Start Date End Date Apolinar Crowley MD PCP - General Family Medicine 05/20/21 documented as of this encounter
--- OUTSIDE RECORDS SUMMARY | 2024-04-27 18:07 | XMS_ITS | Encounter Summary ---
Author Organization [facility] Healthcare Address [address] [place] [address] Care Team Providers Care Power Lineman Technician Name Role Phone Apolinar Crowley MD Primary Care Provider [phone] Encounter Details Date Type Department Care Team (Late st Contact Info) Description 05/20/2021 8:20 AM GLUING CREW LEADER [address] Apolinar Crowley MD [address] [place] [id number] Nonscarring hair loss; Preventative health care; Class 2 obesity due to excess calories without serious comorbidity with body mass index (BMI) of 35.0 to 35.9 in adult Discharge Disposition: Discharge to home or self [...] on file Legal Sex Female 6:54 PM GLUING CREW LEADER Gender Identity Not on file Sexual Orientation Not on file documented as of this encounter Discharge Disposition Disposition Code Departure Means Destination Discharge to home or self care documented in this encounter Miscellaneous Notes * Result Encounter Note - Vera Rosas MA - 05/23/2021 11:45 AM GLUING CREW LEADER Patient has been informed of results. NG CREW LEADER * Result Encounter Note - Vera Rosas MA - 05/21/2021 9:27 AM GLUING CREW LEADER Patient has been informed and will call to get scheduled with Derm. NG CREW LEADER * Result Encounter Note - Apolinar Crowley MD - 05/20/2021 12:44 PM CST New referral placed for derm at [facility] as other providers don't accept her insurance NG CREW LEADER documented in this encounter Plan of Treatment Not on file documented as of this encounter Procedures Procedure Name Priority Date/Time Associated Diagnosis Comments EGFR Routine 05/20/2021 8:19 AM GLUING CREW LEADER Preventative health care DIFFERENTIAL AUTO Routine 05/20/2021 8:1 9 AM GLUING CREW LEADER Preventative health care Nonscarring hair loss THYROID FUNCTION CASCADE Routine 05/20/2021 8:19 AM GLUING CREW LEADER Nonscarring hair loss IRON PROFILE W/ IBC Routine 05/20/2021 8 :19 AM GLUING CREW LEADER Nonscarring hair loss URINALYSIS AND REFLEX TO MICROSCOPIC Routine 05/20/2021 8:19 AM GLUING CREW LEADER Preventative health care CBC WITH AUTO DIFFERENTIAL Routine 05/20/2021 8:19 AM GLUING CREW LEADER Preventative health care Nonscarring hair loss RPR Routine 05/20/2021 8:19 AM GLUING CREW LEADER HEMOGLOBIN A1C Routine 05/20/2021 8:19 AM GLUING CREW LEADER Class 2 obesity due to excess calories without serious comorbidity with body mass index (BMI) of 35.0 to 35.9 in adult LIPID PANEL Routine 05/20/2021 8:19 AM GLUING CREW LEADER Class 2 obesity due to excess calories without serious comorbidity with body mass index (BMI) of 35.0 to 35.9 in adult COMPREHENSIVE METABOLIC PANEL Routine 05/20/2021 8:19 AM GLUING CREW LEADER Preventative health care documented in this encounter Results * eGFR (05/20/2021 8:19 AM GLUING CREW LEADER) eGFR 131 mL/min/1. 73 m2 [facility] ([place]) Comment: Interpretive Data Reference Interval Normal ?>/= 90 mL/min/1.73m2 Mildly decreased* ? 60 - 89 mL/min/1.73m2 Mildly to moderately decreased ?45 - 59 mL/min/1.73m2 Moderately to severely decreased ??30 - 44 mL/min/1.73m2 Severely decreased ?15 - 29 mL/min/1.73m2 Kidney Failure ?< 15 ??mL/min/1.73m2 *Relative to young adult level Estimated glomerular filtration rate is determined by the 2020 CKD-EPI equation recommended by the National Kidney Foundation (A Unifying Approach to GFR Estimation: Recommendations of the NKF-ASK Task Force on Reassessing the Inclusion of Race in Diagnosing Kidney Disease, JASN 202). The CKD-EPI equation should not be used for patients with unstable renal function and has not been validated in children and those over 70. Current interpretive data was last reviewed 2021. Blood 05/20/2021 8:19 AM GLUING CREW LEADER 05/20/2021 10:28 AM GLUING CREW LEADER us Apolinar Crowley MD LAB BLOOD ORDERABLES Final Resul t [facility] ([place]) 1 [facility] [place] [address] * Differential, auto (05/20/2021 8:19 AM GLUING CREW LEADER) Neutrophil abs 4.8 1.7 - 6.5 K/cumm [facility] ([place]) Imm gran abs 0.0 0.0 - 0.1 K/cumm [facility] ([place]) Lymphocyte abs 1.9 0.8 - 3.3 K/cumm [facility] ([place]) Monocyte abs 0.4 0.2 - 0.8 K/cumm [facility] ([place]) Eosinophil abs 0.1 0.0 - 0.5 K/cumm [facility] ([place]) Basophil abs 0.1 0.0 - 0.1 K/cumm [facility] ([place]) Neutrophil pct 66.3 % [facility] ([place]) Comment: Interpretive Data Percent cell count reference ranges are not reported, since discordance with absolute values may lead to misinterpretation of CBC data. Current Interpretive Data was last revised on 2017. Imm gran pct 0.3 % [facility] ([place]) Comment: Interpretive Data Percent cell count reference ranges are not reported, since discordance with absolute values may lead to misinterpretation of CBC data. Current Interpretive Data was last revised on 2017. Lymphocyte pct 26.1 % [facility] ([place]) Comment: Interpretive Data Percent cell count reference ranges are not reported, since discordance with absolute values may lead to misinterpretation of CBC data. Current Interpretive Data was last revised on 2017. Monocyte pct 5.4 % [facility] ([place]) Comment: Interpretive Data Percent cell count reference ranges are not reported, since discordance with absolute values may lead to misinterpretation of CBC data. Current Interpretive Data was last revised on 2017. Eosinophil pct 1.1 % [facility] ([place]) Comment: Interpretive Data Percent cell count reference ranges are not reported, since discordance with absolute values may lead to misinterpretation of CBC data. Current Interpretive Data was last revised on 2017. Basophil pct 0.8 % [facility] ([place]) Comment: Interpretive Data Percent cell count reference ranges are not reported, since discordance with absolute values may lead to misinterpretation of CBC data. Current Interpretive Data was last revised on 2017. Blood 05/20/2021 8:19 AM GLUING CREW LEADER 05/20/2021 10:28 AM GLUING CREW LEADER Apolinar Crowley MD LAB BLOOD ORDERABLES Final Resul t Performing Organization Address City/[facility]/ZIP Co de Phone Number [facility] ([place]) 1 [facility] [place] [address] * RPR (05/20/2021 8:19 AM GLUING CREW LEADER) RPR Nonreactive Nonreactive [facility] ([place]) Comment:Testing performed by : [facility], [address] [place] [address], [id number] Blood 05/20/2021 8:19 AM GLUING CREW LEADER 05/20/2021 2:00 PM GLUING CREW LEADER Apolinar Crowley MD LAB MICROBIOLOGY - GENERAL ORDER MITUL Final Result Performing Organization Address [facility] Co de Phone Number [facility] ([place]) 1 [facility] [place] [address] * CBC with auto differential (05/20/2021 8:19 AM GLUING CREW LEADER) WBC 7.2 3.8 - 9.9 K/cumm [facility] ([place]) Hgb 13.3 11.9 - 15.5 g/dL [facility] ([place]) Hct 41.2 35.6 - 45.5 % [facility] ([place]) Plt 275 150 - 400 K/cumm [facility] ([place]) MPV 10.4 9.1 - 12.3 fL [facility] [place]) RBC 4.51 3.90 - 5.20 M/cumm [facility] ([place]) MCV 91.4 81.3 - 96.4 fL [facility] ([place]) MCH 29.5 27.1 - 33.3 pg [facility] ([place]) MCHC 32.3 32.3 - 35.7 g/dL [facility] ([place]) RDW CV 12.0 11.1 - 14.9 % [facility] [place]) RDW SD 40.7 35.7 - 48.1 fL [facility] [place]) NRBC abs 0.00 0.00 - 0.01 K/cumm [facility] ([place]) Blood 05/20/2021 8:19 AM GLUING CREW LEADER 05/20/2021 10:28 AM GLUING CREW LEADER us Apolinar Crowley MD LAB BLOOD ORDERABLES Final Resul t [facility] ([place]) 1 [facility] [place] [address] * (ABNORMAL) Comprehensive metabolic panel (05/20/2021 8:19 AM GLUING CREW LEADER) Sodium 139 135 - 145 mmol/L [facility] ([place]) Potassium, pl 4.1 3.3 - 4.9 mmol/L [facility] ([place]) Chloride 103 97 - 110 mmol/L [facility]) CO2 25 22 - 32 mmol/L [facility] [place]) Anion gap 11 2 - 15 mmol/L [facility] ([place]) BUN 14 8 - 25 mg/dL [facility] ([place]) Creatinine 0.51(L) 0.60 - 1.10 mg/dL [facility] ([place]) Glucose 108 70 - 199 mg/dL [facility] ([place]) Comment: Interpretive Data Fasting glucose >/= 126 mg/dl is diagnostic for diabetes. ?? Fasting is defined as no caloric intake for at least 8 hours. Fasting glucose between 100 mg/dl to 125 mg/dl is diagnostic of prediabetes. In a patient with classic symptoms of hyperglycemia or hyperglycemic crisis, a random glucose >/= 200 mg/dl is diagnostic for diabetes. In the absence of unequivocal hyperglycemia, results should be confirmed by repeat testing. The classification and Diagnosis of Diabetes Diabetes Care 2017;40 (Suppl. 1):S11. Current interpretive data was last revised 2017. Calcium 9.1 8.5 - 10.3 mg/dL [facility] ([place]) Bilirubin, total 0.4 0.1 - 1.2 mg/dL [facility] ([place]) Protein, pl 7.7 6.5 - 8.5 g/dL [facility] ([place]) Albumin 4.7 3.5 - 5.0 g/dL [facility] ([place]) Alk phos 69 40 - 130 Units/L [facility] ALT 35 7 - 45 Units/L [facility] ([place]) AST 23 10 - 45 Units/L [facility] ([place]) Blood 05/20/2021 8:19 AM GLUING CREW LEADER 05/20/2021 10:28 AM GLUING CREW LEADER Apolinar Crowley MD LAB BLOOD ORDERABLES Final Resul t Performing Organization Address [facility] de Phone Number [facility] ([place]) [address] [place] [address] [place] [address] * Hemoglobin A1c (05/20/2021 8:19 AM GLUING CREW LEADER) Hgb A1C 5.0 4.0 - 5.6 % [facility] ([place]) Estimated Average Glucose 97 mg/dL [facility] ([place]) Comment: The ADA recommends reporting an estimated Average Glucose (eAG) with all Hemoglobin A1c results using the equation derived from a study of 507 normal and diabetic adults. ??Minority populations were underrepresented and children were not included. ?? (Diabetes Care 31:4053-1621, 2008). ??The eAG is not equivalent to a fasting glucose. Blood 05/20/2021 8:19 AM GLUING CREW LEADER 05/20/2021 10:28 AM GLUING CREW LEADER Apolinar Crowley MD LAB BLOOD ORDERABLES Final Resul t Performing Organization Address City/[facility]/ZIP Co de Phone Number [facility] ([place]) 1 [facility] [place] [address] * (ABNORMAL) Lipid panel (05/20/2021 8:19 AM GLUING CREW LEADER) Cholesterol 158 30 - 199 mg/dL [facility] ([place]) Comment: Interpretive Data Ages < or = 19 years ??Acceptable: ? <170 mg/dL ??Borderline high: ??170-199 mg/dL ??High: ? >or= 200 mg/dL Ages > or = 20 years ??Desirable: ?<200 mg/dL ??Borderline high: ??200-239 mg/dL ??High: ? >or= 240 mg/dL Literature References: 1. Expert Panel on Integrated Guidelines for Cardiovascular Health and Risk Reduction in Children and Adolescents. Pediatrics 2011;128:S213 2. NCEP Expert Panel. Circulation 2004;110:227 Current Interpretive Data was last revised on 2017. Triglycerides 122 <=149 mg/dL [facility]) Comment: Interpretive Data Ages < or = 9 years ??Acceptable: ? <75 mg/dL ??Borderline high: ??75-99 mg/dL ??High: ? >or= 100 mg/dL Ages 10 to 20 years ??Acceptable: ? <90 mg/dL ??Borderline high: ??90-129 mg/dL ??High: ? >or= 130 mg/dL Ages > or = 20 years ??Desirable: ?<150 mg/dL ??Borderline high: ??150-199 mg/dL ??High: ? 200-499 mg/dL ?Very high: ?? >or= 499 mg/dL Literature References: 1. Expert Panel on Integrated Guidelines for Cardiovascular Health and Risk Reduction in Children and Adolescents. Pediatrics 2011;128:S213 2. NCEP Expert Panel. Circulation 2004;110:227 Current Interpretive Data was last revised on 2017. HDL 33(L) >=40 mg/dL [facility]) Comment: Interpretive Data Ages < or = 19 years ??Acceptable: ? >45 mg/dL ??Borderline low: ?? 40-45 mg/dL ??Low: ? <40 mg/dL Ages > or = 20 years ??Desirable: ?>or= 60 mg/dL ??Low: ? <40 mg/dL Literature References: 1. Expert Panel on Integrated Guidelines for Cardiovascular Health and Risk Reduction in Children and Adolescents. Pediatrics 2011;128:S213 2. NCEP Expert Panel. Circulation 2004;110:227 Current Interpretive Data was last revised on 2017. LDL, calculated 101 <=129 mg/dL [facility] ([place]) Comment: Interpretive Data Ages < or = 19 years ??Acceptable: ? <110 mg/dL ??Borderline high: ??110-129 mg/dL ??High: ?>or= 130 mg/dL Ages > or = 20 years ??Optimal: ? <100 mg/dL ??Near optimal: ?100-129 mg/dL ??Borderline high: ?? 130-159 mg/dL ??High: ?>160 mg/dL Literature References: 1. Expert Panel on Integrated Guidelines for Cardiovascular Health and Risk Reduction in Children and Adolescents. Pediatrics 2011;128:S213 2. NCEP Expert Panel. Circulation 2004;110:227 Current Interpretive Data was last revised on 2017. Non-HDL Cholesterol 125 mg/dL [facility] ([place]) Comment: Interpretive Data Ages < or = 19 years ??Acceptable: ?<120 mg/dL ??Borderline high: ??120-144 mg/dL ??High: ?>145 mg/dL Ages > or = 20 years ??When triglycerides are >200 mg/dL, Non-HDL cholesterol is a secondary target of ? therapy with treatment goals that are 30 mg/dL greater than the LDL cholesterol target. ? Literature References: 1. Expert Panel on Integrated Guidelines for Cardiovascular Health and Risk Reduction in Children and Adolescents. Pediatrics 2011;128:S213 2. NCEP Expert Panel. Circulation 2004;110:227 Current Interpretive Data was last revised on 2017. Chol/HDL ratio 5 [facility] ([place]) Blood 05/20/2021 8:19 AM GLUING CREW LEADER 05/20/2021 10:28 AM GLUING CREW LEADER us Apolinar Crowley MD LAB BLOOD ORDERABLES Final Resul t [facility] ([place]) 1 [facility] [place] [address] * TSH reflex to free T4 (05/20/2021 8:19 AM GLUING CREW LEADER) TSH 1.68 0.30 - 4.20 mcIUnit/mL [facility] ([place]) Blood 05/20/2021 8:19 AM GLUING CREW LEADER 05/20/2021 10:28 AM GLUING CREW LEADER us Apolinar Crowley MD LAB BLOOD ORDERABLES Final Resul t Performing Organization Address [facility] de Phone Number [facility] ([place]) 1 [facility] [place] [address] * (ABNORMAL) Urinalysis reflex to microscopic (05/20/2021 8:19 AM GLUING CREW LEADER) Color, ur Yellow Yellow [facility] ([place]) Clarity, ur Clear Clear [facility] ([place]) Specific gravity, ur 1.033(H) 1.003 - 1.030 [facility] ([place]) pH, urine 5.0 [facility] ([place]) Protein, ur ql Trace Negative [facility] ([place]) Glucose, ur ql Negative Negative [facility] ([place]) Ketones, ur Negative Negative [facility] ([place]) Bilirubin, ur Negative Negative [facility] ([place]) Blood, ur Negative Negative [facility] ([place]) Urobilinogen, ur <2.0 <2.0 mg/dL [facility] ([place]) Nitrite, ur Negative Negative [facility] ([place]) Leukocyte esterase, ur Negative Negative [facility] ([place]) UA reflex comment Reflex conditions for microscopic UA not met. [facility] ([place]) Urine 05/20/2021 8:19 AM GLUING CREW LEADER 05/20/2021 10:28 AM GLUING CREW LEADER Narrative [facility] ([place]) - 05/20/2021 10:35 AM GLUING CREW LEADER ?? Urine pH is affected by diet, medications, systemic acid-base disturbances, and renal tubular function. ??pH may affect urinary stone formation. ??For example, urine pH below 6.0 may help reduce the tendency for calcium phosphate stones and pH greater than 6.0 may reduce the tendency for uric acid stone formation. Source: [facility] [place]. Last revised 05-20-2017 Apolinar Crowley MD LAB URINE ORDERABLES Final Resul t Performing Organization Address City/[facility] Co de Phone Number [facility] ([place]) 1 [facility] [place] [address] * Iron profile w/ IBC (05/20/2021 8:19 AM GLUING CREW LEADER) Iron 89 35 - 145 mcg/dL [facility] ([place]) TIBC 292 250 - 400 mcg/dL [facility] ([place]) Transferrin saturation 30 20 - 50 % [facility] ([place]) Blood 05/20/2021 8:19 AM GLUING CREW LEADER 05/20/2021 10:28 AM GLUING CREW LEADER Apolinar Crowley MD LAB BLOOD ORDERABLES Final Resul t Performing Organization Address [facility] Co de Phone Number [facility] ([place]) 1 [facility] [place] [address] documented in this encounter Visit Diagnoses Diagnosis Nonscarring hair loss Preventative health care Routine general medical examination at a health care facility Class 2 obesity due to excess calories without serious comorbidity with body mass index (BMI) of 35.0 to 35.9 in adult documented in this encounter Care Teams Power Lineman Technician Relationship Specialty Start Date End Date Apolinar Crowley MD PCP - General Family Medicine 05/20/21 documented as of this encounter
--- OUTSIDE RECORDS SUMMARY | 2024-04-27 18:07 | XMS_ITS | Encounter Summary ---
Author Organization [facility] Medical Group Address [address] [place] [address] Care Team Providers Care Decorator Mannequin Name Role Phone Apolinar Crowley MD Primary Care Provider [phone] Encounter Details Date Type Department Care Team ([facility] st Contact Info) Description 05/28/2021 Telephone [facility] [address] [place] [address] Blanca Polanco Social History Tobacco Use Types Packs/Day Years [...] on file Legal Sex Female 6:54 PM DEMOGRAPHIC ANALYST Gender Identity Not on file Sexual Orientation Not on file documented as of this encounter Miscellaneous Notes * Telephone Encounter - Blanca Polanco - 05/28/2021 12:35 PM CST I called and left a message for the patient to call us to reschedule the missed appointment. GRAPHIC ANALYST documented in this encounter Plan of Treatment Not on file documented as of this encounter Visit Diagnoses Not on filedocumented in this encounter Care Teams Decorator Mannequin Relationship Specialty Start Date End Date Apolinar Crowley MD PCP - General Family Medicine 05/20/21 documented as of this encounter
--- OUTSIDE RECORDS SUMMARY | 2024-04-27 18:07 | XMS_ITS | Encounter Summary ---
Author Organization [facility] Healthcare Address [address] [place] [address] Care Team Providers Care Center Lead Consultant Name Role Phone Apolinar Crowley MD Primary Care Provider [phone] Encounter Details Date Type Department Care Team ([facility] st Contact Info) Description 08/04[facility]2021 [facility] [address] [place] [address] Social History Tobacco Use Types Packs/Day Years [...] on file Legal Sex Female 6:54 PM SOCIOLOGY INSTRUCTOR Gender Identity Not on file Sexual Orientation Not on file documented as of this encounter Plan of Treatment Not on file documented as of this encounter Procedures Procedure Name Priority Date/Time Associated Diagnosis Comments MRI TRANSFER OF OUTSIDE FILMS Routine 08/04/2021 12:00 AM CDT documented in this encounter Results * MRI Outside Reference (08/04/2021 12:00 AM CDT) Narrative [id number] - 11/19/2023 8:35 AM CDT This order has been auto-finalized and does not contain a result. us Provider Transcribed Order IMG MRI PROCEDURES Fi nal Result [id number] documented in this encounter Visit Diagnoses Not on filedocumented in this encounter Additional Health Concerns Infection Onset Date Last Indicated Resolved Time COVID: Recovered Comment:Added based on recent COVID infection. 07/07/2021 07/16/2021 11/04/2021 3:05 AM C DT documented as of this encounter Care Teams Center Lead Consultant Relationship Specialty Start Date End Date Apolinar Crowley MD PCP - General Family Medicine 05/20/21 documented as of this encounter
--- OUTSIDE RECORDS SUMMARY | 2024-04-27 18:07 | XMS_ITS | Encounter Summary ---
Author Organization [facility] Address [address] [place] [address] Care Team Providers Care Senior Enlisted Advisor Name Role Phone Carola Crowley MD Primary Care Provider [phone] Reason for Referral * Dermatology (Routine) - Closed Specialty Diagnoses / Procedures Referred By Contdanuta t Referred To Contact Dermatology Diagnoses Nonscarring hair loss Skin lesion Carola Crowley MD Phone: tel: fax: Teja Serra MD Phone: tel: fax: Referral ID Status Reason Start Date Expiration Date V isits Requested Visits Authorized [id number] Closed Specialty Services Required 05/20/2021 06/19/2022 25 25 Question Answer Please select the performing region: [facility] (All Locations) [[id number]] Please select the performing department: [facility] [[phone]] # of visits: 1 BAG FRAMES INSPECTOR Reason for Visit * Reason Comments Alopecia Suspicious Skin Lesion Face Encounter Details Date Type Department Care Team (Late st Contact Info) Description 05/20/2021 7:30 AM HANDBAG FRAMES INSPECTOR Office Visit [facility] [address] [place] [phone] Carola Crowley MD [address] [place] [address] [address] [place] [address] Nonscarring hair loss (Primary Dx); Preventative health care; Class 2 obesity due to excess calories without serious comorbidity with body mass index (BMI) of 35.0 to 35.9 in adult; Skin lesion Social History Tobacco Use Types Packs/Day Years [...] on file Legal Sex Female 6:54 PM HANDBAG FRAMES INSPECTOR Gender Identity Not on file Sexual Orientation Not on file documented as of this encounter Last Filed Vital Signs Vital Sign Reading Time Taken Comments Blood Pressure 106/72 05/20/2021 7:39 AM HANDBAG FRAMES INSPECTOR Pulse 62 05/20/2021 7:39 AM HANDBAG FRAMES INSPECTOR Temperature - - Respiratory Rate 12 05/20/2021 7:39 AM HANDBAG FRAMES INSPECTOR Oxygen Saturation 97% 05/20/2021 7:39 AM HANDBAG FRAMES INSPECTOR Inhaled Oxygen Concentration - - Weight 82.2 kg (181 lb 4.8 oz) 05/20/2021 7:39 A M HANDBAG FRAMES INSPECTOR Height 152.4 cm (5') 05/20/2021 7:39 AM HANDBAG FRAMES INSPECTOR Body Mass Index 35.41 05/20/2021 7:39 AM HANDBAG FRAMES INSPECTOR documented in this encounter Progress Notes * Carola Crowley MD - 05/20/2021 7:30 AM CST Images from the original note were not included. Subjective/Objective Patient ID: Cait Mathews is a 25 y.o. female. Chief Complaint Alopecia and Suspicious Skin Lesion (Face ) HPI: Cait Mathews 25 y.o. woman has a past medical history of Hypertension. who presents as a new patient due to alopecia, dizziness, and a skin lesion on her face. Pt states that PHQ Screening Over the last 2 weeks, [...] points, staff should administer the PHQ-9): 0 If you checked off any problems, how difficult have these problems made it for you to do your work,take care of things at home, or get along with other people?: Not difficult at all No Known Allergies Review of Systems Constitutional: Negative for chills and fever. Hair falling out Respiratory: Negative for cough, chest tightness and shortness of breath. Cardiovascular: Negative for chest pain and palpitations. Gastrointestinal: Negative for abdominal pain and diarrhea. Endocrine: Positive for heat intolerance. Genitourinary: Negative for difficulty urinating. Skin: Positive for color change (lesion on face). Neurological: Negative for headaches. BP 106/72 Pulse 62 Resp 12 Ht 152.4 cm (5') Wt 82.2 kg (181 lb 4.8 oz) SpO2 97% BMI 35.41 kg/m?? Body mass index is 35.41 kg/m??. Physical Exam Constitutional: Appearance: Normal appearance. Comments: Thinning of hair Cardiovascular: Rate and Rhythm: Normal rate and regular rhythm. Pulses: Normal pulses. Heart sounds: Normal heart sounds. Pulmonary: Effort: Pulmonary effort is normal. Breath sounds: Normal breath sounds. Musculoskeletal: General: Normal range of motion. Cervical back: Neck supple. Skin: General: Skin is warm and dry. Findings: Lesion (2 well circumscribed lesions with surrounding finishing technician colour) present. Neurological: Mental Status: She is alert and oriented to person, place, and time. Assessment/Plan Diagnoses and all orders for this visit: Nonscarring hair loss (Primary) Assessment & Plan: Will check thyroid, iron panel, hga1c. Had gestational diabetes. No new stressors or changes in life. Will rule out organic causes first Orders: - CBC with auto differential; Future - TSH reflex to free T4; Future - Iron profile w/ IBC; Future - Treponema pallidum (syphilis) antibody; Future Preventative health care Comments: baseline bloodwork Orders: - CBC with auto differential; Future - Comprehensive metabolic panel; Future - Urinalysis reflex to microscopic; Future Class 2 obesity due to excess calories without serious comorbidity with body mass index (BMI) of 35.0 to 35.9 in adult Assessment & Plan: HPI: Condition is not at/near goal goal BMI <30 A&P: Healthy, high-protein, lower carbohydrate, lower fat lifestyle and exercise for 150min/week recommended Substitutions: Recommend tracking everything you put in your mouth on an vicky like K[employer] or [employer] carries a zero net carb bread If you are looking for whole potatoes, like to use in soup or new potato shape/flavor, radishes area great replacement If you are looking for [...] in much longer they will become mushy Riddle and/or coconut flour instead of regular flour For pizza dough, try fathead pizza dough recipe online. To get a crispy crust, bake on one side for8-12 min, then flip over and bake on [...] pork rinds For yogurt, try Two Good finnish yogurt Use Pinterest for recipe ideas. Type in low carb... Orders: - Hemoglobin A1c; Future - Lipid panel; Future - Ambulatory referral to Weight Management; Future Skin lesion Comments: has 2 nevus like lesions that have signficantly grown but unhappy with them and wants them to be checked out or removed, will refer to derm Orders: - Ambulatory referral to Dermatology; Future BAG FRAMES INSPECTOR documented in this encounter Miscellaneous Notes * Assessment & Plan Note - Carola Crowley MD - 05/20/2021 8:03 AM CSTAssociated Problem(s): Nonscarring hair loss Will check thyroid, iron panel, hga1c. Had gestational diabetes. No new stressors or changes in life. Will rule out organic causes first BAG FRAMES INSPECTOR * Assessment & Plan Note - Carola Crowley MD - 05/20/2021 8:03 AM CSTAssociated Problem(s): Class 2 obesity due to excess calories without serious comorbidity with bodymass index (BMI) of 35.0 to 35.9 in adult HPI: Condition is not at/near goal goal BMI <30 A&P: Healthy, high-protein, lower carbohydrate, lower fat lifestyle and exercise for 150min/week recommended Substitutions: Recommend tracking everything you put in your mouth on an vicky like [employer]um or [employer] carries a zero net carb bread If you are looking for whole potatoes, like to use in soup or new potato shape/flavor, radishes area great replacement If you are looking for [...] in much longer they will become mushy Riddle and/or coconut flour instead of regular flour For pizza dough, try fathead pizza dough recipe online. To get a crispy crust, bake on one side for8-12 min, then flip over and bake on [...] pork rinds For yogurt, try [employer] finnish yogurt Use Pinterest for recipe ideas. Type in low carb... BAG FRAMES INSPECTOR * Addendum Note - Carola Crowley MD - 05/20/2021 7:30 AM CSTAddended by: CAROLA CROWLEY on: 05/20/2021 12:44 PM Modules accepted: Orders BAG FRAMES INSPECTOR documented in this encounter Plan of Treatment Scheduled Orders Name Type Priority Associated Diagnoses Orde r Schedule Treponema pallidum (syphilis) antibody Lab Routine Nonscarring hair loss Expected: 05/20/2021, Expires: 05/20/2022 Scheduled Referrals Name Type Priority Associated Diagnoses Order Schedule Ambulatory referral to Dermatology Outpatient Referral Routine Nonscarring hair loss Skin lesion Expected: 06/03/2021 (Approximate), Expires: 05/20/2022 documented as of this encounter Results * Iron profile w/ IBC (05/20/2021 8:19 AM HANDBAG FRAMES INSPECTOR) Iron 89 35 - 145 mcg/dL [facility] TIBC 292 250 - 400 mcg/dL [facility]) Transferrin saturation 30 20 - 50 % [facility] ([place]) Blood 05/20/2021 8:19 AM HANDBAG FRAMES INSPECTOR 05/20/2021 10:28 AM HANDBAG FRAMES INSPECTOR us Carola Crowley MD LAB BLOOD ORDERABLES Final Resul t [facility] ([place]) [address] [facility] [place] [address] * (ABNORMAL) Urinalysis reflex to microscopic (05/20/2021 8:19 AM HANDBAG FRAMES INSPECTOR) Color, ur Yellow Yellow [facility] ([place]) [...] Reflex conditions for microscopic UA not met. [facility] ([place]) Urine 05/20/2021 8:19 AM HANDBAG FRAMES INSPECTOR 05/20/2021 10:28 AM HANDBAG FRAMES INSPECTOR Narrative [facility] ([place]) - 05/20/2021 10:35 AM HANDBAG FRAMES INSPECTOR ?? Urine pH is affected by diet, medications, systemic acid-base disturbances, and renal tubular function. ??pH may affect urinary stone formation. ??For example, urine pH below 6.0 may help reduce the tendency for calcium phosphate stones and pH greater than 6.0 may reduce the tendency for uric acid stone formation. Source: [facility] [employer]. Last revised 05-20-2017 Carola Crowley MD LAB URINE ORDERABLES Final Resul t Performing Organization Address City/[facility]/ZIP Co de Phone Number [facility] ([place]) [address] [place] [address] * TSH reflex to free T4 (05/20/2021 8:19 AM HANDBAG FRAMES INSPECTOR) TSH 1.68 0.30 - 4.20 mcIUnit/mL [facility] ([place]) Blood 05/20/2021 8:19 AM HANDBAG FRAMES INSPECTOR 05/20/2021 10:28 AM HANDBAG FRAMES INSPECTOR Carola Crowley MD LAB BLOOD ORDERABLES Final Resul t Performing Organization Address City/[facility]/ZIP Co de Phone Number [facility] ([place]) [address] [facility] [place] [address] * (ABNORMAL) Lipid panel (05/20/2021 8:19 AM HANDBAG FRAMES INSPECTOR) Cholesterol 158 30 - 199 mg/dL [facility] ([place]) Comment: Interpretive Data [...] on 2017. Triglycerides 122 <=149 mg/dL [facility] ([place]) Comment: Interpretive Data [...] last revised on 2017. Chol/HDL ratio 5 [facility] Blood 05/20/2021 8:19 AM HANDBAG FRAMES INSPECTOR 05/20/2021 10:28 AM HANDBAG FRAMES INSPECTOR Carola Crowley MD LAB BLOOD ORDERABLES Final Resul t Performing Organization Address [facility] de Phone Number [facility] ([place]) [address] [facility] [place] [address] * Hemoglobin A1c (05/20/2021 8:19 AM HANDBAG FRAMES INSPECTOR) Hgb A1C 5.0 4.0 - 5.6 % [facility] ([place]) Estimated Average Glucose 97 mg/dL [facility] ([place]) Comment: The ADA recommends reporting an estimated Average Glucose (eAG) with all Hemoglobin A1c results using the equation derived from a study of 507 normal and diabetic adults. ??Minority populations were underrepresented and children were not included. ?? (Diabetes Care 31:9898-0342, 2008). ??The eAG is not equivalent to a fasting glucose. Blood 05/20/2021 8:19 AM HANDBAG FRAMES INSPECTOR 05/20/2021 10:28 AM HANDBAG FRAMES INSPECTOR Carola Crowley MD LAB BLOOD ORDERABLES Final Resul t Performing Organization Address [facility] Co de Phone Number [facility] ([place]) [address] [place] [address] * (ABNORMAL) Comprehensive metabolic panel (05/20/2021 8:19 AM HANDBAG FRAMES INSPECTOR) Sodium 139 135 - 145 mmol/L [facility] ([place]) Potassium, pl 4.1 3.3 - 4.9 mmol/L [facility] ([place]) Chloride 103 97 - 110 mmol/L [facility]) CO2 25 22 - 32 mmol/L [facility] Anion gap 11 2 - 15 mmol/L [facility] ([place]) BUN 14 8 - 25 mg/dL [...] Protein, pl 7.7 6.5 - 8.5 g/dL [facility] ([place]) Albumin 4.7 3.5 - 5.0 g/dL [facility]) Alk phos 69 40 - 130 Units/L [facility]) ALT 35 7 - 45 Units/L [facility] AST 23 10 - 45 Units/L [facility] ([place]) Blood 05/20/2021 8:19 AM HANDBAG FRAMES INSPECTOR 05/20/2021 10:28 AM HANDBAG FRAMES INSPECTOR us Carola Crowley MD LAB BLOOD ORDERABLES Final Resul t [facility] ([place] [address] [facility] [place] [address] * CBC with auto differential (05/20/2021 8:19 AM HANDBAG FRAMES INSPECTOR) WBC 7.2 3.8 - 9.9 K/cumm [facility] ([place]) Hgb 13.3 11.9 - 15.5 g/dL [facility]) Hct 41.2 35.6 - 45.5 % [facility] Plt 275 150 - 400 K/cumm [facility] ([place]) MPV 10.4 9.1 - 12.3 fL [facility] ([place]) RBC 4.51 3.90 - 5.20 M/cumm [facility] ([place] MCV 91.4 81.3 - 96.4 fL [facility] MCH 29.5 27.1 - 33.3 pg [facility]) MCHC 32.3 32.3 - 35.7 g/dL [facility]) RDW CV 12.0 11.1 - 14.9 % [facility] RDW SD 40.7 35.7 - 48.1 fL [facility] NRBC abs 0.00 0.00 - 0.01 K/cumm [facility] ([place]) Blood 05/20/2021 8:19 AM HANDBAG FRAMES INSPECTOR 05/20/2021 10:28 AM HANDBAG FRAMES INSPECTOR us Carola Crowley MD LAB BLOOD ORDERABLES Final Resul t [facility] ([place]) [address] [facility] [place] [address] documented in this encounter Visit Diagnoses Diagnosis Nonscarring hair loss- Primary Preventative health care Routine general medical examination at a health care facility Class 2 obesity due to excess calories without serious comorbidity with body mass index (BMI) of 35.0 to 35.9 in adult Skin lesion Unspecified disorder of skin and subcutaneous tissue Nonscarring hair loss Preventative health care Routine general medical examination at a health care facility Class 2 obesity due to excess calories without serious comorbidity with body mass index (BMI) of 35.0 to 35.9 in adult documented in this encounter Care Teams Senior Enlisted Advisor Relationship Specialty Start Date End Date Carola Crowley MD PCP - General Family Medicine 05/20/21 documented as of this encounter
--- OUTSIDE RECORDS SUMMARY | 2024-04-27 18:07 | XMS_ITS | Encounter Summary ---
Author Organization [facility] Healthcare Address [address] [place] [id number] Care Team Providers Care Skein Bander Name Role Phone No, Physician Primary Care Provider [phone] Reason for Visit * Reason Comments Vaginal Bleeding - Encounter Details Date Type Department Care Team ([facility] st Contact Info) Description 05/26/2018 10:51 AM SHIPPING CLERK CRATING - 05/26/2018 2:46 PM SHIPPING CLERK CRATING Emergency [facility] Emergency Department [address] [place] [address] Livan Whiting MD 1 [facility] [place] 1 [place] [address] Threatened miscarriage (Primary Dx) Discharge Disposition: Discharge to home or self care Social History Tobacco Use Types Packs/Day Years Used Date Smoking Tobacco: Former Smokeless Tobacco: Never Alcohol Use Standard Drinks/Week Comments No 0 (1 standard drink = 0.6 oz pur e alcohol) Comments Yes Sex and Gender Information Value Date Recorded Sex Assigned at Not on file Legal Sex Female 6:54 PM SHIPPING CLERK CRATING Gender Identity Not on file Sexual Orientation Not on file documented as of this encounter Last Filed Vital Signs Vital Sign Reading Time Taken Comments Blood Pressure 114/65 05/26/2018 12:30 PM SHIPPING CLERK CRATING Pulse 84 05/26/2018 12:45 PM SHIPPING CLERK CRATING Temperature 37.4 ??C (99.4 ??F) 05/26/2018 11:[address] Respiratory Rate 18 05/26/2018 11:07 AM SHIPPING CLERK CRATING Oxygen Saturation 97% 05/26/2018 12:45 PM SHIPPING CLERK CRATING Inhaled Oxygen Concentration - - Weight 81.2 kg (179 lb) 05/26/2018 11:07 AM SHIPPING CLERK CRATING Height 152.4 cm (5') 05/26/2018 11:07 AM SHIPPING CLERK CRATING Body Mass Index 34.96 05/26/2018 11:07 AM SHIPPING CLERK CRATING documented in this encounter Discharge Instructions * Discharge Instructions* Livan Whiting MD - 05/26/2018 2:31 PM SHIPPING CLERK CRATING Pelvic rest, follow with your OB doctor as scheduled , return to ER if there is excessive bleeding PING CLERK CRATING * Attachments The following attachments cannot be sent through Care Everywhere. * Threatened Miscarriage (Manager Asset) (Congolese) documented in this encounter Discharge Disposition Disposition Code Departure Means Destination Discharge to home or self care documented in this encounter ED Notes * Livan Whiting MD - 05/26/2018 11:23 AM CST HPI Chief Complaint Patient presents with ??? Vaginal Bleeding - 11:10 AM 05/26/2018 Pt is a 22 y/o female non-smoker who is with h/o A0 presenting to the ED c/o vaginalbleeding that started 6 days ago, resolved 3 days ago, and started again today. Pt reports the bleeding would fluctuate in severity. She states she had seen her PCP 2 days ago and was told to report to the ED if she developed vaginal bleeding again. Pt denies suprapubic cramping, lightheadedness, or dizziness. There are no other complaints at this time. Patient History There are no active problems to display for this patient. No past medical history on file. No past surgical history on file. No family history on file. Social History Substance Use Topics ??? Smoking status: Former Smoker ??? Smokeless tobacco: Never Used ??? Alcohol use No Social History Social History Narrative ??? No narrative on file Review of Systems Review of Systems Constitutional: Negative for chills and fever. HENT: Negative for ear pain and sore throat. Eyes: Negative for pain and visual disturbance. Respiratory: Negative for cough and shortness of breath. Cardiovascular: Negative for chest pain and palpitations. Gastrointestinal: Negative for abdominal pain and vomiting. Genitourinary: Positive for vaginal bleeding. Negative for dysuria and hematuria. Musculoskeletal: Negative for arthralgias and back pain. Skin: Negative for color change and rash. Neurological: Negative for seizures and syncope. All other systems reviewed and are negative. Physical Exam ED Triage Vitals [05/26/18 1107] Temp Pulse Resp BP SpO2 37.4 ??C (99.4 ??F) 85 18 131/77 97 % Temp src Heart Rate Source Patient Position BP Location FiO2 (%) Oral -- -- -- -- Physical Exam Constitutional: She is oriented to person, place, and time. She appears well- developed and well-nourished. HENT: Head: Normocephalic and atraumatic. Mouth/Throat: Oropharynx is clear and moist. Eyes: Pupils are equal, round, and reactive to light. Neck: Normal range of motion. Neck supple. Cardiovascular: Normal rate. Pulmonary/Chest: Effort normal and breath sounds normal. Abdominal: Soft. Genitourinary: Vagina normal. Genitourinary Comments: No blood in the vagina , CX is closed Musculoskeletal: Normal range of motion. Neurological: She is alert and oriented to person, place, and time. Skin: Skin is warm. Nursing note and vitals reviewed. [facility] Vitals: 05/26/18 1245 BP: Pulse: 84 Resp: Temp: SpO2: 97% Labs Reviewed URINALYSIS AND REFLEX TO MICROSCOPIC AND CULTURE - Abnormal Result Value Color, ur Yamilex Clarity, ur Cloudy (*) Specific gravity, ur 1.028 (*) pH, urine 6.0 Protein, ur ql 1+ (*) Glucose, ur ql Negative Ketones, ur Negative Bilirubin, ur Negative Blood, ur 3+ (*) Urobilinogen, ur 0.2 Nitrite, ur Negative Leukocyte esterase, ur 1+ (*) Narrative: Urine pH is affected by diet, medications, systemic acid-base disturbances, and renal tubular function. pH may affect urinary stone formation. For example, urine pH below 6.0 may help reduce the tendency for calcium phosphate stones and pH greater than 6.0 may reduce the tendency for uric acid stone formation. Source: [place].Last revised 05-20-2017 CBC WITH AUTO DIFFERENTIAL - Abnormal WBC 10.4 (*) Hgb 13.4 Hct 39.6 Plt 246 MPV 9.7 RBC 4.48 MCV 88.4 MCH 29.9 MCHC 33.8 RDW CV 12.0 RDW SD 39.0 NRBC Abs 0.00 Narrative: BASIC METABOLIC PANEL - Abnormal Sodium 136 Potassium, pl 3.7 Chloride 100 CO2 25 Anion Gap 11 BUN 9 Creatinine 0.47 (*) Glucose 89 Calcium 9.6 Narrative: HCG, BLOOD, QUANTITATIVE - Abnormal hCG, quant 21,146.0 (*) Narrative: URINALYSIS, MICROSCOPIC ONLY - Abnormal WBC, ur 21-50 (*) RBC, ur >50 (*) Epithelial cells, squamous, ur 1-5 Bacteria, ur 2+ (*) Hyaline casts, ur 11-20 (*) Narrative: DIFFERENTIAL AUTO - Abnormal Neutrophil absolute 7.1 (*) Immature granulocyte absolute 0.0 Lymphocytes absolute 2.4 Monocyte absolute 0.7 Eosinophils absolute 0.1 Basophils, abs 0.1 Neutrophils 68.2 Immature granulocytes 0.5 Lymphocytes 22.6 Monocytes 7.0 Eosinophils 1.1 Basophils 0.6 Narrative: TYPE AND SCREEN ABO/RH ABO/RH. B Positive Narrative: Has the patient had Daratumumab (Darzalex) in the past 6 months?->Unknown ANTIBODY SCREEN Shannan, indirect, Gel Interpretation Negative ABSC Narrative: Has the patient had Daratumumab (Darzalex) in the past 6 months?->Unknown EGFR GFR 138 Narrative: B ABO / RH CONFIRMATION TESTING US Ob Under 14 Weeks W Endovaginal Final Result 1. INTRAUTERINE GESTATIONAL SAC MEASURING 6 WEEKS, 4 DAYS IN GESTATION. 2. NO EVIDENCE OF POLE. RECOMMEND FOLLOW-UP EXAM TO EVALUATE FOR ANEMBRYONIC . Electronically signed by: Erick Hollins M.D. Threatened miscarriage This note is prepared by John Marquez, acting as a scribe for Livan Whiting MD. Signed by Keenan Ortega, 11:25 AM 05/26/2018. I, Livan Whiting MD, have personally performed the services described in the documentation , reviewed the documentation, as recorded by the scribe in my presence, and it accurately and completely records my words and actions. Livan Whiting MD 05/26/18 1431 PING CLERK CRATING * Juliana Townsend RN - 05/26/2018 11:03 AM CST Pt stated that she noticed vaginal bleeding that started 30 minutes ago. Pt is estimating she is 7 to 8 weeks . Pt said she had light bledding for 3 or 4 days last week stopping Wednesday. PT contacted OBGYN and they told her to report to the ED if bleeding started again. PING CLERK CRATING documented in this encounter Plan of Treatment Not on file documented as of this encounter Procedures Procedure Name Priority Date/Time Associated Diagnosis Comments US OB UNDER 14 WEEKS W ENDOVAGINAL ED 05/26/2018 1:19 PM SHIPPING CLERK CRATING EGFR STAT 05/26/2018 11:32 AM SHIPPING CLERK CRATING DIFFERENTIAL AUTO STAT 05/26/2018 11: 32 AM SHIPPING CLERK CRATING CBC WITH AUTO DIFFERENTIAL STAT 05/26/2018 11:32 AM SHIPPING CLERK CRATING ABO/RH STAT 05/26/2018 11:32 AM SHIPPING CLERK CRATING ANTIBODY SCREEN STAT 05/26/2018 11:32 AM SHIPPING CLERK CRATING TYPE AND SCREEN STAT 05/26/2018 11:32 AM SHIPPING CLERK CRATING HCG, BLOOD, QUANTITATIVE STAT 05/26/2018 11:32 AM SHIPPING CLERK CRATING BASIC METABOLIC PANEL STAT 05/26/2018 11:32 AM SHIPPING CLERK CRATING URINALYSIS AND REFLEX TO MICROSCOPIC AND CULTURE STAT 05/26/2018 11:08 AM SHIPPING CLERK CRATING URINALYSIS, MICROSCOPIC ONLY STAT 05/26/2018 11:08 AM SHIPPING CLERK CRATING URINE CULTURE STAT 05/26/2018 11:08 AM SHIPPING CLERK CRATING documented in this encounter Results * US Ob Under 14 Weeks W Endovaginal (05/26/2018 1:19 PM SHIPPING CLERK CRATING) Anatomical Region Laterality Modality Abdomen N/A Ultrasound 05/26/2018 1:20 PM SHIPPING CLERK CRATING Impressions 05/26/2018 1:22 PM SHIPPING CLERK CRATING 1. ??INTRAUTERINE GESTATIONAL SAC MEASURING 6 WEEKS, 4 DAYS IN GESTATION. 2. ??NO EVIDENCE OF POLE. ??RECOMMEND FOLLOW-UP EXAM TO EVALUATE FOR ANEMBRYONIC . Electronically signed by: Erick Hollins M.D. Narrative 05/26/2018 1:22 PM SHIPPING CLERK CRATING US OB UNDER 14 WEEKS W ENDOVAGINAL HISTORY: vag bleeding. ??Bleeding for 5 days. COMPARISON: None available. FINDINGS: Ultrasound demonstrates an intrauterine gestational sac measuring 16.8 mm in diameter. ??A yolk sac is present. ??A pole is not visualized. ??Based upon sac diameter, the mean gestational age is 6 weeks, 4 days. ??The uterus and adnexa are otherwise normal. Procedure Note Erick Hollins MD - 05/26/2018 US OB UNDER 14 WEEKS W ENDOVAGINAL HISTORY: vag bleeding. Bleeding for 5 days. COMPARISON: None available. FINDINGS: Ultrasound demonstrates an intrauterine gestational sac measuring 16.8 mm in diameter. A yolk sac is present. A pole is not visualized. Based upon sac diameter, the mean gestational age is 6 weeks, 4 days. The uterus and adnexa are otherwise normal. IMPRESSION: 1. INTRAUTERINE GESTATIONAL SAC MEASURING 6 WEEKS, 4 DAYS IN GESTATION. 2. NO EVIDENCE OF POLE. RECOMMEND FOLLOW-UP EXAM TO EVALUATE FOR ANEMBRYONIC . Electronically signed by: Erick Hollins M.D. us Livan Whiting MD IMG OB US PROCEDURES Final Res ult * eGFR (05/26/2018 11:32 AM SHIPPING CLERK CRATING) eGFR 138 mL/min/1.7 3 m2 [facility] ([place]) Comment: Interpretive Data Reference Interval Normal ?>/= 90 mL/min/1.73m2 Mildly decreased* ? 60 - 89 mL/min/1.73m2 Mildly to moderately decreased ?45 - 59 mL/min/1.73m2 Moderately to severely decreased ??30 - 44 mL/min/1.73m2 Severely decreased ?15 - 29 mL/min/1.73m2 Kidney Failure ?< 15 ??mL/min/1.73m2 *Relative to young adult level If -Gambian multiply value by 1.16. Estimated glomerular filtration rate is determined by the CKD-EPI equation recommended by the National Kidney Foundation (KDIGO 2012 Clinical Practice Guideline for the Evaluation and Management of Chronic Kidney Disease. Kidney Intnl Suppl May 2012;3:1). The CKD-EPI equation should not be used for patients with unstable renal function and has not been validated in children and those over 70. Current interpretive data was last reviewed 2015. Blood specimen (specimen) 05/26/2018 11:32 AM SHIPPING CLERK CRATING 05/26/2018 11:38 AM SHIPPING CLERK CRATING Narrative [facility] ([place]) - 05/26/2018 11:54 AM SHIPPING CLERK CRATING us Livan Whiting MD LAB BLOOD ORDERABLES Final Res ult [facility] ([place]) 1 [facility] [place] [address] * (ABNORMAL) Differential, auto (05/26/2018 11:32 AM SHIPPING CLERK CRATING) Neutrophil abs 7.1(H) 1.7 - 6.5 K/cumm [facility] ([place]) Imm gran abs 0.0 0.0 - 0.1 K/cumm [facility] ([place]) Lymphocyte abs 2.4 0.8 - 3.3 K/cumm [facility] ([place]) Monocyte abs 0.7 0.2 - 0.8 K/cumm [facility] ([place]) Eosinophil abs 0.1 0.0 - 0.5 K/cumm [facility] ([place]) Basophil abs 0.1 0.0 - 0.1 K/cumm [facility] ([place]) Neutrophil pct 68.2 % [facility] ([place]) Comment: Interpretive [...] was last revised on 2017. Lymphocyte pct 22.6 % [facility] ([place]) Comment: Interpretive Data Percent cell count reference ranges are not reported, since discordance with absolute values may lead to misinterpretation of CBC data. Current Interpretive Data was last revised on 2017. Monocyte pct 7.0 % [facility] ([place]) Comment: Interpretive Data [...] was last revised on 2017. Basophil pct 0.6 % [facility] ([place]) Comment: Interpretive Data Percent cell count reference ranges are not reported, since discordance with absolute values may lead to misinterpretation of CBC data. Current Interpretive Data was last revised on 2017. Blood specimen (specimen) 05/26/2018 11:32 AM SHIPPING CLERK CRATING 05/26/2018 11:38 AM SHIPPING CLERK CRATING Narrative [facility] ([place]) - 05/26/2018 11:41 AM SHIPPING CLERK CRATING us Livan Whiting MD LAB BLOOD ORDERABLES Final Res ult [facility] ([place]) 1 [facility] [place] [address] * Antibody screen (05/26/2018 11:32 AM SHIPPING CLERK CRATING) Shannan, indirect, Gel Interpretation Negative ABSC [facility] ([place]) Blood specimen (specimen) 05/26/2018 11:32 AM SHIPPING CLERK CRATING 05/26/2018 11:38 AM SHIPPING CLERK CRATING Narrative [facility] ([place]) - 05/26/2018 12:14 PM SHIPPING CLERK CRATING Has the patient had Daratumumab (Darzalex) in the past 6 months?->Unknown Livan Whiting MD LAB BLOOD BANK TEST ORDERABLES Final Result Performing Organization Address [facility]/ZIP Co de Phone Number [facility] ([place]) [address] [place] [address] [place] [place] [address] * ABO/Rh (05/26/2018 11:32 AM SHIPPING CLERK CRATING) ABO/Rh B Positive [facility] Blood specimen (specimen) 05/26/2018 11:32 AM SHIPPING CLERK CRATING 05/26/2018 11:38 AM SHIPPING CLERK CRATING Narrative [facility] ([place]) - 05/26/2018 12:13 PM SHIPPING CLERK CRATING Has the patient had Daratumumab (Darzalex) in the past 6 months?->Unknown Livan Whiting MD LAB BLOOD BANK TEST ORDERABLES Final Result [facility] ([place]) 1 [facility] [place] [place] [address] * (ABNORMAL) hCG, blood, quantitative (05/26/2018 11:32 AM SHIPPING CLERK CRATING) hCG, quant 21,146.0( H) 0.0 - 5.0 IUnits/L [facility] ([place]) Comment: Interpretive Data Non- Female premenopausal: < or = 5.0 IUnits/L Men: < 5.0 IUnits/L Weeks of Gestation ? Reference Interval ?? 3 to 6 ? 5.8-31,795 IUnits/L ?? 7 to 10 ? 3,697-186,977 IUnits/L ??12 to 15 ?27,832- 70,791 IUnits/L ??16 to 18 ? 9,040- 58,179 IUnits/L Current Interpretive Data was last revised on 2017. Blood specimen (specimen) 05/26/2018 11:32 AM SHIPPING CLERK CRATING 05/26/2018 11:38 AM SHIPPING CLERK CRATING Narrative [facility] ([place]) - 05/26/2018 12:31 PM SHIPPING CLERK CRATING us Livan Whiting MD LAB BLOOD ORDERABLES Final Res ult [facility] ([place]) 1 [facility] [place] [address] * (ABNORMAL) Basic metabolic panel (05/26/2018 11:32 AM SHIPPING CLERK CRATING) Sodium 136 135 - 145 mmol/L [facility] Potassium, pl 3.7 3.3 - 4.9 mmol/L [facility] Chloride 100 97 - 110 mmol/L [facility] CO2 25 22 - 32 mmol/L [facility]) Anion gap 11 2 - 15 mmol/L [facility] ([place] BUN 9 8 - 25 mg/dL [facility] ([place]) Creatinine 0.47(L) 0.60 - 1.10 mg/dL [facility] Glucose 89 70 - 199 mg/dL [facility] ([place] Comment: Interpretive Data Fasting glucose [...] interpretive data was last revised 2017. Calcium 9.6 8.5 - 10.3 mg/dL [facility] ([place]) Blood specimen (specimen) 05/26/2018 11:32 AM SHIPPING CLERK CRATING 05/26/2018 11:38 AM SHIPPING CLERK CRATING Narrative [facility] ([place]) - 05/26/2018 11:54 AM SHIPPING CLERK CRATING us Livan Whiting MD LAB BLOOD ORDERABLES Final Res ult [facility] ([place]) [address] [facility] [place] [address] * (ABNORMAL) CBC with auto differential (05/26/2018 11:32 AM SHIPPING CLERK CRATING) WBC 10.4(H) 3.8 - 9.9 K/cumm [facility] ([place]) Hgb 13.4 11.9 - 15.5 g/dL [facility] ([place]) Hct 39.6 35.6 - 45.5 % [facility] ([place]) Plt 246 150 - 400 K/cumm [facility] ([place]) MPV 9.7 9.1 - 12.3 fL [facility] ([place]) RBC 4.48 3.90 - 5.20 M/cumm [facility] ([place]) MCV 88.4 81.3 - 96.4 fL [facility] ([place]) MCH 29.9 27.1 - 33.3 pg [facility] ([place]) MCHC 33.8 32.3 - 35.7 g/dL [facility] ([place]) RDW CV 12.0 11.1 - 14.9 % [facility] ([place]) RDW SD 39.0 35.7 - 48.1 fL [facility] ([place]) NRBC abs 0.00 0.00 - 0.01 K/cumm [facility] ([place]) Blood specimen (specimen) 05/26/2018 11:32 AM SHIPPING CLERK CRATING 05/26/2018 11:38 AM SHIPPING CLERK CRATING Narrative [facility] ([place]) - 05/26/2018 11:41 AM SHIPPING CLERK CRATING Livan Whiting MD LAB BLOOD ORDERABLES Final Res ult Performing Organization Address [facility]/ZIP Co de Phone Number [facility] ([place]) 1 [facility] [place] [address] * Urine culture (05/26/2018 11:08 AM SHIPPING CLERK CRATING) Report Final Report: Less than 100,000 colonies/mL (clinically insignificant growth based on current clinical standards) [facility] ([place]) Comment:Testing performed by : [facility], [address] [facility] [place] [address] Organism (CLINICALLY INSIGNIFICANT GROWTH [facility] ([place]) Urine, clean voided 05/26/2018 11:08 AM SHIPPING CLERK CRATING 05/26/2018 2:37 PM SHIPPING CLERK CRATING Narrative [facility] ([place]) - 05/27/2018 2:23 PM SHIPPING CLERK CRATING Urine culture reflexed based upon urinalysis results. Testing performed by [facility] Microbiology Laboratory ([phone]) Livan Whiting MD LAB MICROBIOLOGY - GENERAL ORD ERABLES Final Result Performing Organization Address [facility] Co de Phone Number [facility] ([place]) 1 [facility] [place] [address] * (ABNORMAL) Urinalysis, microscopic only (05/26/2018 11:08 AM SHIPPING CLERK CRATING) WBC, ur 21-50(A) 0 - 5 /HPF [facility] ([place]) RBC, ur >50(A) 0 - 2 /HPF [facility] ([place]) Epithelial cells, squamous, ur 1-5 0 - 5 /HPF [facility] ([place]) Bacteria, ur 2+(A) [facility] ([place]) Hyaline casts, ur 11-20(A) 0 - 10 /LPF [facility] ([place]) Urine 05/26/2018 11:0 8 AM SHIPPING CLERK CRATING 05/26/2018 11:11 AM SHIPPING CLERK CRATING Narrative [facility] ([place]) - 05/26/2018 11:23 AM SHIPPING CLERK CRATING Livan Whiting MD LAB URINE ORDERABLES Final Res ult [facility] ([place]) [address] [facility] [place] [address] * (ABNORMAL) Urinalysis reflex to microscopic and culture Urine (05/26/2018 11:08 AM SHIPPING CLERK CRATING) Color, ur Yamilex Yellow [facility] ([place]) Clarity, ur Cloudy(A) Clear [facility] ([place]) Specific gravity, ur 1.028(H) 1.010 - 1.025 [facility] ([place]) pH, urine 6.0 [facility] ([place]) Protein, ur ql 1+(A) Negative [facility] ([place]) Glucose, ur ql Negative Negative [facility] ([place]) Ketones, ur Negative Negative [facility] ([place]) Bilirubin, ur Negative Negative [facility] ([place]) Blood, ur 3+(A) Negative [facility] ([place]) Urobilinogen, ur 0.2 mg/dL [facility] ([place]) Nitrite, ur Negative Negative [facility] ([place]) Leukocyte esterase, ur 1+(A) Negative [facility] ([place]) Urine 05/26/2018 11:0 8 AM SHIPPING CLERK CRATING 05/26/2018 11:11 AM SHIPPING CLERK CRATING Narrative [facility] ([place]) - 05/26/2018 11:23 AM SHIPPING CLERK CRATING ?? Urine pH is affected by diet, medications, systemic acid-base disturbances, and renal tubular function. ??pH may affect urinary stone formation. ??For example, urine pH below 6.0 may help reduce the tendency for calcium phosphate stones and pH greater than 6.0 may reduce the tendency for uric acid stone formation. Source: [place]. Last revised 05-20-2017 us Livan Whiting MD LAB MICROBIOLOGY - GENERAL ORD ERABLES Final Result [facility] ([place]) 1 [facility] [place] [address] documented in this encounter Visit Diagnoses Diagnosis Threatened miscarriage- Primary Threatened , unspecified as to episode of care documented in this encounter Care Teams Skein Bander Relationship Specialty Start Date End Date No, Physician PCP - General 05/26/18 05/19/21 documented as of this encounter
--- OUTSIDE RECORDS SUMMARY | 2024-04-27 18:07 | XMS_ITS | Encounter Summary ---
Author Organization [facility] Address [address] [place] [address] Care Team Providers Care Router Operator Pin Name Role Phone Apolinar Crowley MD Primary Care Provider [phone] Reason for Visit * Reason Comments Earache L ear - on abx since 07/01/22 Encounter Details Date Type Department Care Team ([facility] st Contact Info) Description 06/05/2022 2:00 PM COLLEGE INTERN Office Visit [facility] Primary Care at [address] [place] [address] Donnie Martinez MD [address] [id number] Acute otitis media, unspecified otitis media type (Primary Dx); Class 2 obesity with body mass index (BMI) of 37.0 to 37.9 in adult, unspecified obesity type, unspecified whether [...] points, staff should administer the PHQ-9) 0 06/05/2022 Comments No Sex and Gender Information Value Date Recorded Sex Assigned at Not on file Legal Sex Female 6:54 PM COLLEGE INTERN Gender Identity Not on file Sexual Orientation Not on file documented as of this encounter Last Filed Vital Signs Vital Sign Reading Time Taken Comments Blood Pressure 110/80 06/05/2022 2:00 PM COLLEGE INTERN Pulse 80 06/05/2022 2:00 PM COLLEGE INTERN Temperature - - Respiratory Rate 16 06/05/2022 2:00 PM COLLEGE INTERN Oxygen Saturation - - Inhaled Oxygen Concentration - - Weight 87.5 kg (193 lb) 06/05/2022 2:00 PM COLLEGE INTERN Height 152.4 cm (5') 06/05/2022 2:00 PM COLLEGE INTERN Body Mass Index 37.69 06/05/2022 2:00 PM COLLEGE INTERN documented in this encounter Ordered Prescriptions Prescription Sig Dispense Quantity Refills Last Filled Start Date End Date neomycin-polymyxin -HC (CORTISPORIN) 3.5-10,000-1 mg/mL-unit/mL-% otic suspension Administer 2 drops into the left ear 4 (four) times a day for 7 days 10 mL 06/05/2022 3 amoxicillin (AMOXIL) 875 mg tablet Take 1 tablet (875 mg total) by mouth 2 (two) times a day for 7 days 14 tablet 06/05/2022 3 documented in this encounter Progress Notes * Donnie Martinez MD - 06/05/2022 2:00 PM CST Subjective/Objective Patient ID: Cait Mathews is a 26 y.o. female. Chief Complaint Earache (L ear - on abx since 07/01/22) HPI Patient presents today for continued left earache. Presented to the [facility] on Wednesday and given antibiotics for ear infection without much improvement. Denies fevers chills hearing loss or discharge. Review of Systems Constitutional: Negative for chills, fever and unexpected weight change. Respiratory: Negative for shortness of breath. Cardiovascular: Negative for chest pain and palpitations. Gastrointestinal: Negative for abdominal pain, constipation and diarrhea. Skin: Negative for rash. Neurological: Negative for numbness and headaches. Psychiatric/Behavioral: Negative for dysphoric mood. The patient is not nervous/anxious. Physical Exam Blood pressure 110/80, pulse 80, resp. rate 16, height 152.4 cm (5'), weight 87.5 kg (193 lb), unknown if currently . Constitutional: Oriented to person, place, and time. Appears well-developed and well-nourished. HENT: Head: Normocephalic and atraumatic. Left tympanic membrane erythematous and external auditorycanal inflamed. Cardiovascular: Normal rate, regular rhythm and normal heart sounds. Pulmonary/Chest: Breath sounds normal. Abdominal: Soft. Bowel sounds are normal. There is no tenderness. Neurological: Alert and oriented to person, place, and time. Psychiatric: Normal mood and affect. Assessment/Plan Diagnoses and all orders for this visit: Acute otitis media, unspecified otitis media type (H66.90) (Primary) Assessment & Plan: Extended course of amoxicillin and trial of Cortisporin for external auditory canal inflammation. Call back if no improvement. Class 2 obesity with body mass index (BMI) of 37.0 to 37.9 in adult, unspecified obesity type, unspecified whether serious comorbidity present (E66.9, Z68.37) Other orders - amoxicillin (AMOXIL) 875 mg tablet; Take 1 tablet (875 mg total) by mouth 2 (two) times a day for7 days - [id number]-ZO (CORTISPORIN) 3.5-10,000-1 mg/mL-unit/mL-% otic suspension; Administer 2 drops into the left ear 4 (four) times a day for 7 days EGE INTERN documented in this encounter Miscellaneous Notes * Assessment & Plan Note - Donnie Martinez MD - 07/05/2022 9:23 PM COLLEGE INTERN Associated Problem(s): Otitis media Extended course of amoxicillin and trial of Cortisporin for external auditory canal inflammation. Call back if no improvement. EGE INTERN documented in this encounter Plan of Treatment Not on file documented as of this encounter Visit Diagnoses Diagnosis Acute otitis media, unspecified otitis media type- Primary Class 2 obesity with body mass index (BMI) of 37.0 to 37.9 in adult, unspecified obesity type, unspecified whether serious comorbidity present documented in this encounter Discontinued Medications Medication Sig Discontinue Reason Start Date End Da te ondansetron (ZOFRAN) 4 mg tablet Take 4 mg by mouth every 8 (eight) hours as needed 02/11/2022 06/05/2022 amoxicillin (AMOXIL) 875 mg tablet Take 875 mg by mouth 2 (two) times a day Reorder 05/31/2022 06/05/2022 documented as of this encounter Historical Medications * This list may reflect changes made after this encounter. amoxicillin (AMOXIL) 875 mg tablet Take 875 mg by mouth 2 (two) times a day 05/31/2022 06/05/2022 added in this encounter Care Teams Router Operator Pin Relationship Specialty Start Date End Date Apolinar Crowley MD PCP - General Family Medicine 05/20/21 documented as of this encounter
--- OUTSIDE RECORDS SUMMARY | 2024-04-27 18:07 | XMS_ITS | Encounter Summary ---
Author Organization [facility] Address [address] [place] [id number] Care Team Providers Care Weatherization Specialist Name Role Phone Apolinar Crowley MD Primary Care Provider [phone] Reason for Visit * Reason Comments Pain Follow-up Test Results Encounter Details Date Type Department Care Team ([facility] st Contact Info) Description 08/11/2021 9:10 AM CDT Office Visit [facility] [address] [place] [id number] Giuseppe Cortez MD [address] [address] Complex tear of medial meniscus of left [...] on file 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 Gender Identity Not on file Sexual Orientation Not on file documented as of this encounter Last Filed Vital Signs Vital Sign Reading Time Taken Comments Blood Pressure - - Pulse - - Temperature - - Respiratory Rate - - Oxygen Saturation - - Inhaled Oxygen Concentration - - Weight 79.4 kg (175 lb) 08/11/2021 9:17 AM CDT Height 152.4 cm (5') 08/11/2021 9:17 AM CDT Body Mass Index 34.18 08/11/2021 9:17 AM CDT documented in this encounter Patient Instructions * Patient Instructions* Giuseppe Cortez MD - 08/11/2021 9:10 AM CDT The risks benefits potential complications prognosis for recovery and realistic expectations have been discussed with the patient and they are in agreement with the proposed plan. documented in this encounter Progress Notes * Giuseppe Cortez MD - 08/11/2021 9:10 AM CDT Patient returns today following MRI scan. Her symptoms under physical findings are unaltered. MRI scan confirms complex posterior horn medial meniscal pathology as clinically suspected. Diagnosis-internal derangement left knee. Plan-following discussion of options we will proceed with left knee arthroscopy. The risks benefitspotential complications prognosis for recovery and realistic expectations have been discussed with the patient and they are in agreement with the proposed plan. documented in this encounter Plan of Treatment [...] documented as of this encounter Care Teams Weatherization Specialist Relationship Specialty Start Date End Date Apolinar Crowley MD PCP - General Family Medicine 05/20/21 documented as of this encounter
--- OUTSIDE RECORDS SUMMARY | 2024-04-27 18:07 | XMS_ITS | Encounter Summary ---
Author Organization [facility] Address [address] [place] [address] Care Team Providers Care Pharmacy Care Coordinator Name Role Phone Apolinar Crowley MD Primary Care Provider [phone] Encounter Details Date Type Department Care Team (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 OPONE MILL WORKER documented in this encounter Plan of Treatment Not on file documented as of this encounter Visit Diagnoses Not on filedocumented in this encounter Care Teams Pharmacy Care Coordinator Relationship Specialty Start Date End Date Apolinar Crowley MD PCP - General Family Medicine 05/20/21 documented as of this encounter
--- OUTSIDE RECORDS SUMMARY | 2024-04-27 18:07 | XMS_ITS | Encounter Summary ---
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 OYEE COUNSELOR documented in this encounter Plan of Treatment Not on file documented as of this encounter Visit Diagnoses Not on filedocumented in this encounter Additional Health Concerns Infection Onset Date Last Indicated Resolved Time COVID: Recovered Comment:Added based on recent COVID infection. 07/07/2021 07/16/2021 11/04/2021 3:05 AM C DT documented as of this encounter Care Teams Health Education Coordinator Relationship Specialty Start Date End Date Apolinar Crowley MD PCP - General Family Medicine 05/20/21 documented as of this encounter
--- OUTSIDE RECORDS SUMMARY | 2024-04-27 18:07 | XMS_ITS | Encounter Summary ---
Author Organization [facility] Address [address] [facility] [address] [facility] [address] [place] [address] Care Team Providers Care Director Recreation Center Name Role Phone Apolinar Crowley MD Primary Care Provider [phone] Reason for Visit * Reason Comments COVID-19 EVALUATION Wednesday started with congestion- into Wednesday night now BARRERA /cough ST Encounter Details Date Type Department Care Team (Late st Contact Info) Description 06/27/2021 3:00 PM CAKE PRESS OPERATOR Office Visit [facility] [address] [place] [address] Mitali Brush, MOY [address] [place] [address] COVID-19 (Primary Dx) Social History Tobacco Use Types [...] on file Legal Sex Female 6:54 PM CAKE PRESS OPERATOR Gender Identity Not on file Sexual Orientation Not on file documented as of this encounter Last Filed Vital Signs Vital Sign Reading Time Taken Comments Blood Pressure 118/70 06/27/2021 3:02 PM CAKE PRESS OPERATOR Pulse 80 06/27/2021 3:02 PM CAKE PRESS OPERATOR Temperature 36.8 ??C (98.3 ??F) 06/27/2021 3:02 PM CS T Respiratory Rate 12 06/27/2021 3:02 PM CAKE PRESS OPERATOR Oxygen Saturation 99% 06/27/2021 3:02 PM CAKE PRESS OPERATOR Inhaled Oxygen Concentration - - Weight 79.4 kg (175 lb) 06/27/2021 3:02 PM CAKE PRESS OPERATOR Height 152.4 cm (5') 06/27/2021 3:02 PM CAKE PRESS OPERATOR Body Mass Index 34.18 06/27/2021 3:02 PM CAKE PRESS OPERATOR documented in this encounter Patient Instructions * Patient Instructions* Mitali Brush, FIRE EXTINGUISHER TESTER - 06/27/2021 3:00 PM CAKE PRESS OPERATOR The rapid COVID test performed today in clinic was positive. The following are recommendations for treating the symptoms related to COVID19. What is the difference between Influenza (Flu) and COVID-19? Influenza (Flu) and COVID-19 are both contagious respiratory illnesses, but they are caused by different viruses. COVID-19 is caused by infection with a new coronavirus (called SARS-CoV-2) and flu is caused by infection with influenza viruses. There are some barakat differences between flu and COVID-19. COVID-19 seems to spread more easily than flu and causes more serious illnesses in some people. It can also take longer before people show symptoms and people can be contagious for longer. The best way to prevent infection is to avoid being exposed to the virus. Because some of the symptoms of flu and COVID-19 are similar, it may be hard to tell the difference between them based on symptoms alone, and testing may be needed to help confirm a diagnosis.While more is learned every day, there is still a lot that is unknown about COVID-19 and the virus that causes it. The [facility] will be reaching out to all patients who have a positive test for further discussion and monitoring. Continue to self isolate until at least 10 days have passed since symptom onset, your symptoms have improved, and you have been fever free without the use of fever reducing medications for at least 24 hours. You may use acetaminophen and/or ibuprofen to control pain and fever. If you have chronic liver disease, have ever had a stomach ulcer or gastrointestinal bleeding talk with your healthcare provider before using these medicines. Aspirin should never be given to anyone under 18 years of age who is ill with a viral infection or fever. It may cause severe liver or brain damage. Your appetite may be poor, so a light diet is ok. Stay well hydrated by drinking 6 to 8 glasses of fluids per day (water, soft drinks, juices, tea, or soup). Extra fluids will help loosen secretions in the nose and lungs. Hhqx-zbs-ulfmhum cold medicines will not shorten the length of time you???re sick, but they may be helpful for relieving the following symptoms: headache, cough, sore throat, and nasal and sinus congestion. If you take prescription medicines, ask your healthcare provider or pharmacist which yfrj-bul-hksgpjc medicines are safe to use. (Note: DO NOT use decongestants if you have high blood pressure.) Steps to help prevent the spread of COVID-19 if you are sick If you are sick with COVID-19 or think you might have COVID-19, follow the steps below to care for yourself and to help protect other people in your home and community. Stay home except to get medical care ??? Most people with COVID-19 have mild illness and are able to recover at home without medical care. Do not leave your home, except to get medical care. Do not visit public areas. ??? Take care of yourself. Get rest and stay hydrated. Take uroz-lgy-vdquzpf medicines to help you feel better. ??? Stay in touch with your doctor. Call before you get medical care. Be sure to get care if you have trouble breathing, or have any other emergency warning signs, or if you think it is an emergency. ??? Avoid using public transportation, ride-sharing, or taxis. Monitor your symptoms ??? Symptoms of COVID-19 include fever, cough, shortness of breath or difficulty breathing, fatigue, muscle or body aches, headache, new loss of taste or smell, sore throat, congestion, runny nose, nausea, vomiting, or diarrhea. When to Seek Medical Attention If you develop emergency warning signs for COVID-19 get medical attention immediately. Emergency warning signs include*: ??? Trouble breathing ??? Persistent pain or pressure in the chest ??? New confusion or inability to arouse ??? Bluish lips or face *This list is not all inclusive. Please consult your medical provider for any other symptoms that are severe or concerning. Call 911 if you have a medical emergency: If you have a medical emergency and need to call 911, notify the petroleum blending plant operator that you have or think you might have, COVID-19. If possible, put on a facemask before medical help arrives. Separate yourself from other people in your home, this is known as home isolation ??? As much as possible, you should stay away from other people and pets in your home. You should stay in a specific ???sick room?? if possible. Use a separate bathroom, if available. If you need malcolm around other people or animals in or outside of the home, wear a mask For more information on sharing close living quarters with someone who is sick visit https://www.cdc .gov/coronavirus/2019-ncov/ocilu-jpiw-dmaxob/vfvvub-ee-qdxtr-quarters.html For more information on COVID-19 and pets visit https://www.cdc.gov/coronavirus/2019-ncov/faq.html Call ahead before visiting your doctor ??? Many medical visits for routine care are being postponed or done by phone or telemedicine. ??? If you have a medical appointment that cannot be postponed, call your doctor???s office, and tell them you have or may have COVID-19. This will help the office protect themselves and other patients. If You Test Positive for COVID-19 (Isolate) Everyone, regardless of vaccination status. Stay home for 5 days. If you have no symptoms or your symptoms are resolving after 5 days, you can leave your house. Continue to wear a mask around others for 5 additional days. If you have a fever, continue to stay home until your fever resolves. If You Were Exposed to Someone with COVID-19 (Quarantine) If you: Have been boosted OR Completed the primary series of Pfizer or Moderna vaccine within the last 6 months OR Completed the primary series of J&J vaccine within the last 2 months: Wear a mask around others for 10 days. Test on day 5, if possible. If you develop symptoms get a test and stay home. If you: Completed the primary series of Pfizer or Moderna vaccine over 6 months ago and are not boosted OR Completed the primary series of J&J over 2 months ago and are not boosted OR Are unvaccinated: Stay home for 5 days. After that continue to wear a mask around others for 5 additional days. If you can???t quarantine you must wear a mask for 10 days. Test on day 5 if possible. If you develop symptoms, get a test & stay home PRESS OPERATOR documented in this encounter Progress Notes * Mitali Brush NP - 06/27/2021 3:00 PM CST Images from the original note were not included. Subjective/Objective Patient ID: Cait Mathews is a 25 y.o. female. Chief Complaint COVID-19 EVALUATION ( Wednesday started with congestion- into Wednesday night now BARRERA /cough ST) Presents for loss of appetite, runny nose, sinus pressure, sore throat, headache x3 days. She has taken tylenol. She has not had the covid vaccine, denies exposure. Review of Systems Constitutional: Positive for appetite change. Negative for activity change, fatigue and fever. HENT: Positive for congestion, sinus pressure and sore throat. Negative for ear discharge, ear pain, postnasal drip and rhinorrhea. Eyes: Negative for discharge. Respiratory: Negative for cough and shortness of breath. Gastrointestinal: Negative for diarrhea, nausea and vomiting. Musculoskeletal: Negative for myalgias. Skin: Negative for rash. Neurological: Positive for headaches. Hematological: Negative for adenopathy. Physical Exam Vitals reviewed. Constitutional: General: She is not in acute distress. Appearance: Normal appearance. She is well-developed. She is not ill-appearing. HENT: Head: Normocephalic. Right Ear: Tympanic membrane, ear canal and external ear normal. Left Ear: Tympanic membrane, ear canal and external ear normal. Nose: No congestion or rhinorrhea. Right Sinus: No maxillary sinus tenderness or frontal sinus tenderness. Left Sinus: No maxillary sinus tenderness or frontal sinus tenderness. Mouth/Throat: Lips: [place]. Mouth: Mucous membranes are moist. Pharynx: Oropharynx is clear. Eyes: General: Right eye: No discharge. Left eye: No discharge. Conjunctiva/sclera: Conjunctivae normal. Cardiovascular: Rate and Rhythm: Normal rate and regular rhythm. Pulmonary: Effort: Pulmonary effort is normal. No respiratory distress. Breath sounds: Normal breath sounds and air entry. Abdominal: Tenderness: There is no abdominal tenderness. Musculoskeletal: General: Normal range of motion. Cervical back: Neck supple. Lymphadenopathy: Head: Right side of head: No tonsillar adenopathy. Left side of head: No tonsillar adenopathy. Cervical: No cervical adenopathy. Skin: General: Skin is warm and dry. Findings: No rash. Neurological: Mental Status: She is alert and oriented to person, place, and time. Mental status is at baseline. Psychiatric: Attention and Perception: Attention normal. Mood and Affect: Mood normal. Behavior: Behavior normal. Behavior is cooperative. Thought Content: Thought content normal. Judgment: Judgment normal. Vitals: 06/27/21 1502 BP: 118/70 Pulse: 80 Resp: 12 Temp: 36.8 ??C (98.3 ??F) TempSrc: Oral SpO2: 99% Weight: 79.4 kg (175 lb) Height: 152.4 cm (5') Assessment/Plan Lungs CTA, O2 Saturation 99%/RA, low suspicion for pneumonia at this time. Will recommend supportive care for symptoms with f/u precautions including signs/symptoms warranting ER evaluation. Discussed risk for dehydration and educated on s/s including dry mouth, poor skin turgor, and decreased urine output. Discussed home self-care, follow up needs, and signs and symptoms that warrant immediate medical attention/ER evaluation including worsening fever, increased shortness of breath, severe N/V/D, or anyother worrisome symptoms ?? Reviewed isolation/quarantine protocols ?? Discussed symptomatic relief of symptoms ?? Advised to rest and increase oral fluid intake ?? Advised to stay out of work and work release given explaining when patient can return to work Diagnoses and all orders for this visit: COVID-19 (Primary) - COVID-19 POC Recent Results (from the past 4 hour(s)) COVID-19 POC Collection Time: 06/27/21 3:07 PM Result Value Ref Range COVID-19 Ag POC (BD Veritor) Positive (A) Presumptive Negative, Invalid Patient Education: Disposition ??? Treatment plan including expectations, follow up, and return precautions discussed with patient/parent, verbalizes understanding. ??? Medication dosage, use, and potential adverse reactions discussed with patient/parent. ??? Advised to follow up with PCP if symptoms do not resolve as expected or sooner if condition worsens. ??? Signs/symptoms warranting ER evaluation reviewed. ??? Patient and/or guardian was given an opportunity to ask questions, questions answered. Mitali Brush NP PRESS OPERATOR documented in this encounter Plan of Treatment Not on file documented as of this encounter Procedures Procedure Name Priority Date/Time Associated Diagnosis Comments COVID-19 POC Routine 06/27/2021 3:07 PM CAKE PRESS OPERATOR COVID-19 documented in this encounter Results * (ABNORMAL) COVID-19 POC (06/27/2021 3:07 PM CAKE PRESS OPERATOR) [facility] COVID-19 Ag POC (BD Veritor) Positive( A) Presumptive Negative, Invalid [facility] 06/27/2021 3:07 PM CAKE PRESS OPERATOR us Mitali Brush FIRE EXTINGUISHER TESTER POINT OF CARE TEST OR DERABLES Final Result Performing Organization Address City/State/[facility] Co de Phone Number [facility] [address] [place] [address] documented in this encounter Visit Diagnoses Diagnosis COVID-19- Primary documented in this encounter Additional Health Concerns Infection Onset Date Last Indicated Resolved Time COVID: Suspected 06/27/2021 06/27/2021 06/27/2021 3:07 PM CAKE PRESS OPERATOR COVID19 06/27/2021 06/27/2021 07/07/2021 3:05 AM CAKE PRESS OPERATOR documented as of this encounter Care Teams Director Recreation Center Relationship Specialty Start Date End Date Apolinar Crowley MD PCP - General Family Medicine 05/20/21 documented as of this encounter
--- OUTSIDE RECORDS SUMMARY | 2024-04-27 18:07 | XMS_ITS | Encounter Summary ---
Author Organization [facility] Address [address] [facility] [place] [address] Care Team Providers Care Gas Pumping Station Supervisor Name Role Phone Apolinar Crowley MD Primary Care Provider [phone] Reason for Referral * MRI/CAT/PET Scan (Routine) - Closed Specialty Diagnoses / Procedures Referred By Contac t Referred To Contact Diagnoses Complex tear of medial meniscus of left knee as current injury, subsequent encounter Rupture of anterior cruciate ligament of left knee, subsequent encounter Procedures MRI Knee Left WO Contrast Giuseppe Cortez MD [address] [place] [address] Phone: tel: fax: [facility] [address] [facility] [place] [address] [place] [address] Phone: tel: fax: Referral ID Status Reason Start Date Expiration Date Visits Re quested Visits Authorized [id number] Closed 07/28/2021 08/27/2022 1 1 Reason for Visit * Reason Comments Pain Muscle Weakness Encounter Details Date Type Department Care Team (Late st Contact Info) Description 07/28/2021 9:10 AM CDT Office Visit [facility] [address] [place] [address] Giuseppe Cortez MD [address] [place] [address] Complex tear of medial meniscus of left knee as current injury, subsequent encounter (Primary Dx); Rupture of anterior cruciate ligament of left knee, subsequent encounter Social History Tobacco Use Types Packs/Day [...] on file Legal 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 Gender Identity Not on file Sexual Orientation Not on file documented as of this encounter Last Filed Vital Signs Vital Sign Reading Time Taken Comments Blood Pressure - - Pulse - - Temperature - - Respiratory Rate - - Oxygen Saturation - - Inhaled Oxygen Concentration - - Weight 79.4 kg (175 lb) 07/28/2021 9:27 AM CDT Height 152.4 cm (5') 07/28/2021 9:27 AM CDT Body Mass Index 34.18 07/28/2021 9:27 AM CDT documented in this encounter Progress Notes * Giuseppe Cortez MD - 07/28/2021 9:10 AM CDT This 25-year-old female is seen today for evaluation of left knee pain and popping with giving out since she was injured on a trampoline in February of 2021. The patient has been using a brace with little success and x-rays done at the time were within normal limits. She cannot trust her knee at this point. She has had swelling intermittently. Examination confirms healthy-appearing 25-year-old with positive findings in the left knee with there is tenderness the anterior medial joint line as well as in the parapatellar tissues. There is fine patellofemoral crepitation with resisted extension. Iliana's, pivot shift drawer tests are negative. Abiodun's and Apley's grind tests are positive. There is no limp at this point. Overall range of motion is 80% normal. X-rays are within normal limits. Diagnosis-clinical internal derangement left knee. Plan-MRI scan. Return following investigation. documented in this encounter Plan of Treatment Scheduled Orders Name Type Priority Associated Diagnoses Orde r Schedule MRI Knee Left WO Contrast Imaging Schedule Routine, Read Routine (OP Routine) Complex tear of medial meniscus of left knee as current injury, subsequent encounter Rupture of anterior cruciate ligament of left knee, subsequent encounter Expected: 08/04/2021, Expires: 07/28/2022 documented as of this encounter Visit Diagnoses Diagnosis Complex tear of medial meniscus of left knee as current injury, subsequent encounter- Primary Rupture of anterior cruciate ligament of left knee, subsequent encounter documented in this encounter Additional Health Concerns Infection Onset Date Last Indicated Resolved Time COVID: Recovered Comment:Added based on recent COVID infection. 07/07/2021 07/16/2021 11/04/2021 3:05 AM C DT documented as of this encounter Care Teams Gas Pumping Station Supervisor Relationship Specialty Start Date End Date Apolinar Crowley MD PCP - General Family Medicine 05/20/21 documented as of this encounter
--- OUTSIDE RECORDS SUMMARY | 2024-04-27 18:07 | XMS_ITS | Encounter Summary ---
Author Organization [facility] Address [address] [facility] [address] [place] [address] Care Team Providers Care Bill Checker Name Role Phone Apolinar Crowley MD Primary Care Provider [phone] Encounter Details Date Type Department Care Team ([facility] st Contact Info) Description 03/02/[address] 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 Gender Identity Not on file Sexual Orientation Not on file documented as of this encounter Miscellaneous Notes * Telephone Encounter - Nita Miles - 03/03/2022 11:09 AM CDT R/s to 03/10/22 * Telephone Encounter - Cee Chakraborty MA - 03/02/2022 4:51 PM CDT Appointment No show Appt date/time: 03/02/22, 4:45p Reason for appt: discuss labs Reason for cxl: none NOV: 03/10/22 VENECIA:05/20/21 # of cxl or no shows in last year: 4 nsh, Controlled Rx: none documented in this encounter Plan of Treatment Not on file documented as of this encounter Visit Diagnoses Not on filedocumented in this encounter Care Teams Bill Checker Relationship Specialty Start Date End Date Apolinar Crowley MD PCP - General Family Medicine 05/20/21 documented as of this encounter
--- OUTSIDE RECORDS SUMMARY | 2024-04-27 18:07 | XMS_ITS | Encounter Summary ---
Author Organization [facility] Address [address] [place] [address] Care Team Providers Care Supervisor Paper Machine Name Role Phone Apolinar Crowley MD Primary Care Provider [phone] Reason for Visit * Reason Onset Date Comments Vaginal Bleeding 08/18/2022 Encounter Details Date Type Department Care Team (Late st Contact Info) Description 08/18/2022 Nurse Triage [facility] Medical [facility] Primary Care at [address] [place] [address] Apolinar Crowley MD [address] [place] [address] [address] [place] [address] Social History Tobacco Use Types [...] on file 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 Pt states she has spot bleeding, once every 3 months and cramping like starting a period. On Wednesday, pt noticed discharge of old dark blood. Denies bleeding yesterday but states today she had 2 spots in underwear, one was quarter size and astreak. Denies any constant bleeding or blood clots. Hx partial hysterectomy 3 1/2 years ago and very mild bleeding 1.5-2 years. Clear vaginal discharge. Denies passing any tissue, fever, dizziness or lightheadedness. Denies abdominal pain. Discussed worsening signs and symptoms of condition on which to call back. Pt verbalizes understanding. No appts available today, appt made for tomorrow. PtReason for Disposition Patient wants to be seen Protocols used: Vaginal Bleeding - [id number] * Telephone Encounter - Edwin Stewart, RN - 08/18/2022 3:32 PM CDT Regarding: spot bleeding with history of partial hysterectomy 3.5 yrs ago ----- Message from Sylvia Patel sent at 08/18/2022 3:32 PM CDT ----- Symptom Based Call Caller's Callback #: [phone] Chief Complaint(s): spot bleeding with history of partial hysterectomy 3.5 yrs ago Duration: off and no since Wednesday What type of symptom(s) is the patient experiencing? Non-Emergent. Is this a new or reoccurring symptom(s)? Reoccurring but worse than normal What have you tried to help your symptom(s)? Nothing Why was appointment not scheduled? Requesting advice from clinical steam hammer operator. Additional Comments: NA Does message need to be routed?Yes-Action Needed documented in this encounter Plan of Treatment Not on file documented as of this encounter Visit Diagnoses Not on filedocumented in this encounter Care Teams Supervisor Paper Machine Relationship Specialty Start Date End Date Apolinar Crowley MD PCP - General Family Medicine 05/20/21 documented as of this encounter
--- OUTSIDE RECORDS SUMMARY | 2024-04-27 18:07 | XMS_ITS | Encounter Summary ---
Author Organization [facility] Address [address] [facility] [facility] [address] [place] [address] Care Team Providers Care Hat Blocking Machine Operator Name Role Phone Apolinar Crowley MD Primary Care Provider [phone] Reason for Visit * Reason Onset Date Comments Covid-19 Home Monitoring 06/30/2021 Enrollm ent call Encounter Details Date Type Department Care Team (Late st Contact Info) Description 06/30/2021 Telephone [facility] Accountable Care Organization [address] [place] [address] Amberly Fong MA [address] [place] [address] Covid-19 Home Monitoring (Enrollment call) Social History Tobacco Use Types Packs/Day Years [...] on file Legal Sex Female 6:54 PM REAL ESTATE 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 The patient was contacted via phone for enrollment in the program, but could not be reached to accept or decline. ESTATE LEGAL ASSISTANT documented in this encounter Plan of Treatment Not on file documented as of this encounter Visit Diagnoses Not on filedocumented in this encounter Additional Health Concerns Infection Onset Date Last Indicated Resolved Time COVID19 06/27/2021 06/27/2021 07/07/2021 3:05 AM REAL ESTATE LEGAL ASSISTANT documented as of this encounter Care Teams Hat Blocking Machine Operator Relationship Specialty Start Date End Date Apolinar Crowley MD PCP - General Family Medicine 05/20/21 documented as of this encounter
--- OUTSIDE RECORDS SUMMARY | 2024-04-27 18:07 | XMS_ITS | Encounter Summary ---
Author Organization [facility] Address [address] [place] [address] Phone Care Team Providers Care Expanded Function Dental Assistant Name Role Phone Apolinar Crowley MD Primary Care Provider [phone] Reason for Visit * Reason Comments Suspicious Skin Lesion Left restorationist * Dermatology (Routine) - Closed Specialty Diagnoses / Procedures Referred By Contac t Referred To Contact Dermatology Diagnoses Nonscarring hair loss Skin lesion Apolinar Crowley MD Phone: tel: fax: Teja Serra MD Phone: tel: fax: Referral ID Status Reason Start Date Expiration Date V isits Requested Visits Authorized [id number] Closed Specialty Services Required 05/20/2021 06/19/2022 25 25 Encounter Details Date Type Department Care Team (Late st Contact Info) Description 03/13/2022 8:30 AM CDT Office Visit [facility] Dermatology [address] [facility] [address] [place] [address] Kiran Gonsales MD PhD [address] [address] Atypical nevus; Skin lesion Social History Tobacco Use Types [...] on file Legal Sex Female 6:54 PM RN RADIATION Gender Identity Not on file Sexual Orientation Not on file documented as of this encounter Progress Notes * Valentine Fenton MD - 03/13/2022 8:30 AM CDT Images from the original note were not included. Cait Mathews [id number] 03/13/22 CHIEF COMPLAINT: mole f/u HISTORY OF PRESENT ILLNESS Cait Mathews is a 26 y.o. female new to clinic with no history of skin cancer, here for evaluation/management of spot on face. VENECIA 09/2021 noted to have mole on L temporal scalp present for >5years but slowly growing. Notes similar spot on right restorationist. Denies pain, bleeding, recent known changes in these moles. No other associated symptoms, exacerbating or alleviating [...] History: Diagnosis Date Hypertension During pregancy ROS: Constitutional: Negative for fever/chills, malaise/fatigue, and lymphadenopathy. Skin: Negative for itching, non-healing sores, and changing moles. Other ROS per HPI. PHYSICAL EXAM: pt denied gown Gen and Cardio: Well-developed and well-nourished in no acute distress. Alert oriented and interacts appropriately. Normal conjunctiva. Normal skin sensation. No lower extremity edema. Derm: A full cutaneous exam was performed with close inspection and palpation where indicated and as allowed by the patient of the hair, scalp, face, and neck. All skin examined was normal with exception of these notable exam findings: 1cm x 1.2cm brown plaque with erythematous base on L temporal scalp 0.5cm brown plaque with erythematous base R temporal scalp Today: VENECIA 09/2021: ASSESSMENT AND PLAN Atypical nevus, L temporal scalp Unchanged from previous OV - Benign, reassurance - ABCD's reviewed with patient and patient was instructed to return to the clinic should any change, pain or bleeding occur. Patient was advised on daily photoprotection including broad spectrum sunscreen use. Discussed signs of skin cancer and need for routine follow up MD skin exams and monthly self skin checks - Discussed treatment options including observation and surgical removal; pt elects to continue to monitor at this time. - Patient instructed to continue to monitor at home q3 months - Follow up in 6 months - if no change, can space visits - Photos taken today RTC 6 months Valentine Fenton MD PGY-2, Division of Dermatology March 13, 2022 Cosigned by Kiran Gonsales MD PhD at 03/18/2022 11:24 AM RN RADIATION RADIATION RADIATION Associated attestation - Kiran Gonsales MD PhD - 03/18/2022 11:24 AM RN RADIATION I have seen and examined the patient. I agree with the findings and plan of care as documented in the resident/fellow's note. documented in this encounter Plan of Treatment Not on file documented as of this encounter Visit Diagnoses Diagnosis Atypical nevus Benign neoplasm of skin, site unspecified Skin lesion Unspecified disorder of skin and subcutaneous tissue documented in this encounter Discontinued Medications Medication Sig Discontinue Reason Start Date End Da te fluconazole (DIFLUCAN) 150 mg tablet Take 1 tablet (150 mg total) by mouth as directed Take one tab now. Repeat in 3 days if symptoms persist. Therapy completed 06/05/2021 03/13/2022 documented as of this encounter Historical Medications * This list may reflect changes made after this encounter. ondansetron (ZOFRAN) 4 mg tablet Take 4 mg by mouth every 8 (eight) hours as needed 02/11/2022 06/05/2022 added in this encounter Orders Outpatient Referral Count Last Ordered Date Fir st Ordered Date AMB REFERRAL TO DERMATOLOGY 1 03/13/2022 documented in this encounter Care Teams Expanded Function Dental Assistant Relationship Specialty Start Date End Date Apolinar Crowley MD PCP - General Family Medicine 05/20/21 documented as of this encounter
--- OUTSIDE RECORDS SUMMARY | 2024-04-27 18:07 | XMS_ITS | Encounter Summary ---
Author Organization [facility] Address [address] [place] [address] Phone Care Team Providers Care Crate Builder Name Role Phone No, Physician Primary Care Provider [phone] Apolinar Crowley MD Primary Care Provider [phone] Yeni Rajput CONCRETE SAW OPERATOR Unavailable [phone] Encounter Details Date Type Department Care Team (Late st Contact Info) Description 02/16/2021 Orders Only [facility] [address] [place] [address] Scanning, Provider Social History Tobacco Use Types Packs/Day Years Used Date Smoking Tobacco: Former Smokeless Tobacco: Never Alcohol Use Standard Drinks/Week Comments No 0 (1 standard drink = 0.6 oz pur e alcohol) Comments Yes Sex and Gender Information Value Date Recorded Sex Assigned at Not on file Legal Sex Female 6:54 PM CFO CONTROLLER Gender Identity Not on file Sexual Orientation Not on file documented as of this encounter Plan of Treatment Not on file documented as of this encounter Procedures Procedure Name Priority Date/Time Associated Diagnosis Comments SCAN - RADIOLOGY/IMAGING 02/16/2021 documented in this encounter Results * SCAN - RADIOLOGY/IMAGING (02/16/2021) Anatomical Region Laterality Modality Other us Provider Scanning Final Result documented in this encounter Visit Diagnoses Not on filedocumented in this encounter Additional Health Concerns Infection Onset Date Last Indicated Resolved Time COVID: Suspected 06/27/2021 06/27/2021 06/27/2021 3:07 PM CFO CONTROLLER COVID19 06/27/2021 06/27/2021 07/07/2021 3:05 AM CFO CONTROLLER COVID: Recovered Comment:Added based on recent COVID infection. 07/07/2021 07/16/2021 11/04/2021 3:05 AM C DT documented as of this encounter Care Teams Crate Builder Relationship Specialty Start Date End Date No, Physician PCP - General 05/26/18 05/19/21 Apolinar Crowley MD PCP - General Family Medicine 05/20/21 Yeni Rajput, MOY [address] [place] [address] [address] [place] [address] Nurse Practitioner Gynecology 12/15/22 documented as of this encounter
--- OUTSIDE RECORDS SUMMARY | 2024-04-27 18:07 | XMS_ITS | Encounter Summary ---
Author Organization [facility] Address [address] 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 INE OPERATOR PICKER * Telephone Encounter - Vera Rosas MA - 06/20/2021 2:35 PM CST Left msg for patient to return our call. Need overdue lab done. INE OPERATOR PICKER documented in this encounter Plan of Treatment Not on file documented as of this encounter Visit Diagnoses Not on filedocumented in this encounter Care Teams Hole Digger Operator Relationship Specialty Start Date End Date Apolinar Crowley MD PCP - General Family Medicine 05/20/21 documented as of this encounter
--- OUTSIDE RECORDS SUMMARY | 2024-04-27 18:07 | XMS_ITS | Encounter Summary ---
Author Organization [facility] Address [address] [facility] [address] [place] [address] Care Team Providers Care Community Case Manager Name Role Phone Apolinar Crowley MD Primary Care Provider [phone] Reason for Visit * Reason Onset Date Comments ear congestion 06/05/2022 Encounter Details Date Type Department Care Team ([facility] st Contact Info) Description 06/05/2022 Nurse Triage [facility] Primary Care at [address] [place] [address] Apolinar Crowley MD [address] [place] [address] [address] [place] [address] Social History Tobacco Use Types [...] on file Legal Sex Female 6:54 PM HOLTER TECHNICIAN Gender Identity Not on file Sexual Orientation Not on file documented as of this encounter Miscellaneous Notes * Telephone Encounter - Mary Collins RN - 06/05/2022 10:55 AM HOLTER TECHNICIAN Reason for Disposition [1] Taking antibiotic > 72 hours (3 days) and [2] pain persists or recurs Protocols used: Ear - Otitis Media Follow-up [id number] Pt reports she went to [facility] [place] [facility]. She was dx with a ear infection and given amoxicillin. She states the ear pressure has not improved. She feels like her ear drum is going to pop. She denies fever,earache, redness or swelling. She has one day left of abx and would like to be seen. Disposition per guideline: Home care/education/call back instruction given: appt made today with Fernando ER TECHNICIAN * Telephone Encounter - Mary Collins RN - 06/05/2022 10:48 AM HOLTER TECHNICIAN Regarding: Ear Pressure ----- Message from Michelle Chaudhari MA sent at 06/05/2022 9:35 AM HOLTER TECHNICIAN ----- Symptom Based Call Chief Complaint: Ear Pressure Did you review 911/Red Flag List?Yes Duration: 5 days ago Why was appointment not scheduled? Pt was offered an appt for Wednesday06.08.2022 and pt declined stating she was requesting a same day sick appt. Caller's Callback #: [phone] Additional Comments: Patient called symptomatic with left ear pressure, pt reports she was seen at this past Wednesday and was prescribed Amoxicillin due to symptoms. Pt has one day left of the antibiotic and reports she feels as though she still has fluild on the ear drum and states the ear feels like it needs to pop. Pt aware of the turnaround timeframe and CS will send over as routine call. Does message need to be routed? Yes-Action Needed ER TECHNICIAN documented in this encounter Plan of Treatment Not on file documented as of this encounter Visit Diagnoses Not on filedocumented in this encounter Care Teams Community Case Manager Relationship Specialty Start Date End Date Apolinar Crowley MD PCP - General Family Medicine 05/20/21 documented as of this encounter
--- OUTSIDE RECORDS SUMMARY | 2024-04-27 18:08 | XMS_ITS | Encounter Summary ---
Author Organization [facility] Healthcare Address [address] [place] [address] Care Team Providers Care Production Broaching Machine Operator Name Role Phone Unavailable Primary Care Provider Unavailabl e Encounter Details Date Type Department Care Team ([facility] st Contact Info) Description 08/20/2009 9:33 PM CDT - 08/21/2009 1:24 AM CDT Hospital Encounter [facility] Milo Rossi MD [address] [facility] [address] [place] [address] Gala Singh MD [address] [place] [address] Urinary tract infection; Other disorders of menstruation and other abnormal bleeding from female genital tract; Nausea with vomiting Social History Tobacco Use Types Packs/Day Years Used Date Smoking Tobacco: Never Assessed Comments Unknown Sex and Gender Information Value Date Recorded Sex Assigned at Not on file Legal Sex Female 6:54 PM PAYROLL EXAMINER Gender Identity Not on file Sexual Orientation Not on file documented as of this encounter Plan of Treatment Not on file documented as of this encounter Visit Diagnoses Diagnosis Urinary tract infection Urinary tract infection, site not specified Other disorders of menstruation and other abnormal bleeding from female genital tract Nausea with vomiting documented in this encounter
--- OUTSIDE RECORDS SUMMARY | 2024-04-27 18:08 | XMS_ITS | Encounter Summary ---
Author Organization [facility] Healthcare Address [address] [place] [address] Care Team Providers Care Sample Sawyer Name Role Phone Unavailable Primary Care Provider Unavailabl e Encounter Details Date Type Department Care Team (Latest Contact Info) Description 09/01/2011 2:06 PM CDT - 09/01/2011 2:43 PM CDT Hospital Encounter [facility] Nita Orr MD [address] [place] [address] Dermatophytosis of body Social History Tobacco Use Types Packs/Day Years Used Date Smoking Tobacco: Never Assessed Comments Unknown Sex and Gender Information Value Date Recorded Sex Assigned at Not on file Legal Sex Female 6:54 PM SHEET ROCK 

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
--- OUTSIDE RECORDS SUMMARY | 2024-04-27 18:08 | XMS_ITS | Encounter Summary ---
Author Organization [facility] Healthcare Address [address] [place] [address] Care Team Providers Care Senior Manager Name Role Phone Unavailable Primary Care Provider Unavailabl e Encounter Details Date Type Department Care Team ([facility] st Contact Info) Description 07/09/2010 2:15 PM TURN SEWER - 07/09/2010 2:45 PM TURN SEWER Hospital Encounter [facility] Milo Rossi MD [address] [facility] [address] [place] [address] Gala Singh MD [address] [place] [address] Foreign body in conjunctival sac; Foreign body accidentally entering eye and adnexa; Place of occurrence, home; Tobacco use disorder Social History Tobacco Use Types Packs/Day Years Used Date Smoking Tobacco: Never Assessed Comments Unknown Sex and Gender Information Value Date Recorded Sex Assigned at Not on file Legal Sex Female 6:54 PM TURN SEWER Gender Identity Not on file Sexual Orientation Not on file documented as of this encounter Plan of Treatment Not on file documented as of this encounter Visit Diagnoses Diagnosis Foreign body in conjunctival sac Foreign body accidentally entering eye and adnexa Place of occurrence, home Tobacco use disorder documented in this encounter
--- OUTSIDE RECORDS SUMMARY | 2024-04-27 18:08 | XMS_ITS | Encounter Summary ---
Author Organization [facility] Healthcare Address [address] [place] [address] Care Team Providers Care Laboratory Scientist Name Role Phone Unavailable Primary Care Provider Unavailabl e Encounter Details Date Type Department Care Team ([facility] Contact Info) Description 07/29/2009 1:14 PM CDT - 07/29/2009 11:59 PM CDT Hospital Encounter [facility]INCONV Screening for malignant neoplasm of cervix; Problems related to high-risk sexual behavior; Exposure to sexually transmitted disease (STD); Other viral disease contact Social History Tobacco Use Types Packs/Day Years Used Date Smoking Tobacco: Never Assessed Comments Unknown Sex and Gender Information Value Date Recorded Sex Assigned at Not on file Legal Sex Female 6:54 PM CABINET INSTALLER Gender Identity Not on file Sexual Orientation Not on file documented as of this encounter Plan of Treatment Not on file documented as of this encounter Visit Diagnoses Diagnosis Screening for malignant neoplasm of cervix Screening for malignant neoplasm of the cervix Problems related to high-risk sexual behavior Exposure to sexually transmitted disease (STD) Contact with or exposure to venereal diseases Other viral disease contact documented in this encounter
--- OUTSIDE RECORDS SUMMARY | 2024-04-27 18:08 | XMS_ITS | Encounter Summary ---
Author Organization [facility] Healthcare Address [address] [place] [address] Care Team Providers Care Bottle House Quality Control Technician Name Role Phone Unavailable Primary Care Provider Unavailabl e Encounter Details Date Type Department Care Team ([facility] st Contact Info) Description 08/08/2013 8:36 AM CDT - 08/08/2013 11:59 PM CDT Hospital Encounter [facility] Jon Sterling MD [address] [facility] [address] [facility] [address] [place] [address] Rob Steiner NP [address] [facility] [address] [place] [address] Encounter for anatomic survey; state, incidental Social History Tobacco Use Types Packs/Day Years Used Date Smoking Tobacco: Never Assessed Comments Unknown Sex and Gender Information Value Date Recorded Sex Assigned at Not on file Legal Sex Female 6:54 PM STUDENT LIAISON OFFICER Gender Identity Not on file Sexual Orientation Not on file documented as of this encounter Plan of Treatment Not on file documented as of this encounter Procedures Procedure Name Priority Date/Time Associated Diagnosis Comments SONOGRAPHY, LIMITED Routine 08/08/2013 9:49 AM CDT documented in this encounter Results * SONOGRAPHY, LIMITED (08/08/2013 9:49 AM CDT) Anatomical Region Laterality Modality N/A Ultrasound 08/08/2013 9:49 AM CDT Narrative 08/08/2013 11:13 AM CDT US OB Followup ??Acc#: ??[id number] DATE OF EXAM: ??Apr ??2013 CLINICAL HISTORY: . ??Anatomy scan. RESULT: An obstetric ultrasound was performed and is compared with a prior study of 05/23/13. ??A single, live intrauterine in vertex presentation is seen. ??The heart rate is 148 beats per minute. ??The cervix measures 3.3cm in length. ??A normal amount of amniotic fluid is present. The placenta is located posteriorly in the fundus and is grade 1. ?? measurements are as follows: BPD: 48.9mm 20 weeks, 6 days HC: 173.6mm 19 weeks, 6 day AC: 128.1mm 18 weeks, 3 days FL: ?28.1mm 18 weeks, 4 days Mean gestational age is 19 weeks 4 days. Estimated due date 12/29/13 based on a prior study. weight is 252g +/- 37g. A mild discrepancy between the biparietal diameter and head circumference is noted. A survey of the anatomy reveals normal hands, feet, spine, cerebellum, facial features, heart, stomach, bladder, cord, cord insertion, diaphragm, and ventral body wall. IMPRESSION: 1. SINGLE, LIVE INTRAUTERINE WITH MEAN GESTATIONAL AGE OF 19 WEEKS 4 DAYS. ??ESTIMATED DUE DATE 12/29/13 BASED ON A PRIOR STUDY. 2. A MILD DISCREPANCY BETWEEN THE BIPARIETAL DIAMETER AND HEAD CIRCUMFERENCE IS NOTED AND FOLLOW-UP IS RECOMMENDED TO EXCLUDE BRACHYCEPHALY. Interpreting Physician: ??VELVET LENTZ M.D. ??Read on: ??Aug ??1 2013 10:03A Transcribed by: ??mrr ??On: Aug ??2013 11:05A Approved Electronically by: ??VELVET LENTZ M.D. ??on: ??Aug ??1 2013 11:13A Ordering DR: ROB STEINER Attending : ROB STEINER Procedure Note Provider, MD Amada - 08/30/2016 OB Followup Acc#: [id number] DATE OF EXAM: Aug 08 2013 CLINICAL HISTORY: . Anatomy scan. RESULT: An obstetric ultrasound was performed and is compared with a prior studyof 05/23/13. A single, live intrauterine in vertex presentationis seen. The heart rate is 148 beats per minute. The cervixmeasures 3.3cm in length. A normal amount of amniotic fluid is present.The placenta is located posteriorly in the fundus and is grade 1. measurements are as follows: BPD: 48.9mm 20 weeks, 6 days HC: 173.6mm 19 weeks, 6 day AC: 128.1mm 18 weeks, 3 days FL: 28.1mm 18 weeks, 4 days Mean gestational age is 19 weeks 4 days.Estimated due date 12/29/13 based on a prior study. weight is 252g+/- 37g. A mild discrepancy between the biparietal diameter and headcircumference is noted. A survey of the anatomy reveals normalhands, feet, spine, cerebellum, facial features, heart, stomach, bladder,cord, cord insertion, diaphragm, and ventral body wall. IMPRESSION: 1. SINGLE, LIVE INTRAUTERINE WITH MEAN GESTATIONAL AGE OF 19WEEKS 4 DAYS. ESTIMATED DUE DATE 12/29/13 BASED ON A PRIOR STUDY. 2. A MILD DISCREPANCY BETWEEN THE BIPARIETAL DIAMETER AND HEADCIRCUMFERENCE IS NOTED AND FOLLOW-UP IS RECOMMENDED TO EXCLUDEBRACHYCEPHALY. Interpreting Physician: VELVET LENTZ M.D. Read on: Aug 08 201310:03A Transcribed by: pk On: Aug 08 2013 11:05A Approved Electronically by: VELVET LENTZ M.D. on: Aug 08 201311:13A Ordering DR: ROB STEINER Attending : ROB STEINER us Historical Provider MD RIDER US PROCEDURES Final R esult documented in this encounter Visit Diagnoses Diagnosis Encounter for anatomic survey state, incidental documented in this encounter
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
--- OUTSIDE RECORDS SUMMARY | 2024-04-27 18:08 | XMS_ITS | Encounter Summary ---
Author Organization [facility] Healthcare Address [address] [place] [address] Care Team Providers Care Smoke Tester Name Role Phone Unavailable Primary Care Provider Unavailabl e Encounter Details Date Type Department Care Team ([facility] st Contact Info) Description 08/27/2007 9:00 PM CDT - 08/28/2007 12:04 AM CDT Hospital Encounter [facility] Jerry Sierra MD [address] [place] [address] Gala Singh MD [address] [facility] [place] [address] Social History Tobacco Use Types Packs/Day Years Used Date Smoking Tobacco: Never Assessed Comments Unknown Sex and Gender Information Value Date Recorded Sex Assigned at Not on file Legal Sex Female 6:54 PM WOOL WASHER Gender Identity Not on file Sexual Orientation Not on file documented as of this encounter Plan of Treatment Not on file documented as of this encounter Visit Diagnoses Not on filedocumented in this encounter
--- OUTSIDE RECORDS SUMMARY | 2024-04-27 18:08 | XMS_ITS | Encounter Summary ---
Author Organization [facility] Healthcare Address [address] [place] [address] Care Team Providers Care Education Rn Name Role Phone Unavailable Primary Care Provider Unavailabl e Encounter Details Date Type Department Care Team ([facility] st Contact Info) Description 06/13/2014 1:43 AM TYPE COPY EXAMINER - 06/13/2014 2:41 AM TYPE COPY EXAMINER Hospital Encounter [facility] Vlad Dumont MD [address] [place] [address] [place] [address] Acute pharyngitis; Tobacco use disorder Social History Tobacco Use Types Packs/Day Years Used Date Smoking Tobacco: Never Assessed Comments Unknown Sex and Gender Information Value Date Recorded Sex Assigned at Not on file Legal Sex Female 6:54 PM TYPE COPY EXAMINER Gender Identity Not on file Sexual Orientation Not on file documented as of this encounter Plan of Treatment Not on file documented as of this encounter Procedures Procedure Name Priority Date/Time Associated Diagnosis Comments DISCHARGE CUMULATIVE SUMMARY ADDENDUM Routine 06/16/2014 3:03 AM TYPE COPY EXAMINER THROAT SWAB STREPTOCOCCUS RAPID ANTIGEN GROUP A Routine 06/13/2014 2:04 AM TYPE COPY EXAMINER MICROBIOLOGY SUMMARY Routine 06/13/2014 12:00 AM TYPE COPY EXAMINER DISCHARGE LABORATORY CUMULATIVE REPORT Routine 06/13/2014 12:00 AM TYPE COPY EXAMINER documented in this encounter Results * Discharge Cumulative Summary Addendum (06/16/2014 3:03 AM TYPE COPY EXAMINER) 06/16/2014 3:03 AM TYPE COPY EXAMINER Narrative HISTORICAL RESULTS - 06/16/2014 3:03 AM TYPE COPY EXAMINER Patient No: [id number] ? [facility] Patient Name: CAIT MATHEWS ? [facility] Age: 18 YRS ?: 1995 ?Sex:F ?[address] )[phone] ?? Adm Dt: 06/13/2014 ?[place], [place] ??[address] Created: 06/16/2014 ??0303 ?? Pt. Type: E ? Discharge Dt: 06/13/2014 ? Pathologists: Shannon Gomez MD Admit Attend Dr: VLAD MERCHANT MD ?MICRO - RESPIRATORY THROAT BETA ONLY ?Collected: 06/13/14204 ? Received: 06/13/14227 Source: THROAT ?Started: 06/13/14499 ? PRELIMINARY REPORT ?06/14/14520 ? NEGATIVE NO BETA-HEMOLYTIC STREPTOCOCCI CULTURED ? FINAL REPORT ?06/15/14546 ? NEGATIVE NO BETA-HEMOLYTIC STREPTOCOCCI CULTURED ?? END OF CHART ? Page: ?? 1 us Historical Provider LAB MICROBIOLOGY - GENERA L ORDERABLES Final Result HISTORICAL RESULTS * Throat swab Streptococcus Rapid Antigen Group A (06/13/2014 2:04 AM TYPE COPY EXAMINER) Strep A ag oropharyngeal Negative NEGATIVE HISTORICAL RESULTS Throat 06/13/2014 2:04 AM TYPE COPY EXAMINER us Vlad Merchant MD LAB BLOOD ORDERABLES Final Re sult HISTORICAL RESULTS * Microbiology Summary (06/13/2014 12:00 AM TYPE COPY EXAMINER) 06/13/2014 Narrative HISTORICAL RESULTS - 06/16/2014 3:13 AM TYPE COPY EXAMINER ? [facility] ?[facility] ? MICROBIOLOGY REPORT PATIENT NAME: ??CAIT MATHEWS ? MED RECORD#: ??[id number] BIRTHDATE: ??1995 ?? AGE: ??18 YRS SEX: F ?PATIENT#: ? [id number] ADMITTING DR: ??VLAD MERCHANT MD ? ATTENDING DR: ??VLAD MERCHANT MD ? ACCESSION#: ?? [id number] CREATED: ??06/16/14 ?? 0302 ? ADMIT DATE: ?? 06/13/14 ?MICRO - RESPIRATORY THROAT BETA ONLY ?Collected: 06/13/145 ? Received: 06/13/148 Source: THROAT ?Started: 06/13/14 0500 ?06/14/14520 ? NEGATIVE NO BETA-HEMOLYTIC STREPTOCOCCI CULTURED ?06/15/14 0547 ? NEGATIVE NO BETA-HEMOLYTIC STREPTOCOCCI CULTURED ?? END OF CHART us Historical Provider MD LAB MICROBIOLOGY - GENERA L ORDERABLES Final Result HISTORICAL RESULTS * Discharge Laboratory Cumulative Report (06/13/2014 12:00 AM TYPE COPY EXAMINER) 06/13/2014 Narrative HISTORICAL RESULTS - 06/14/2014 12:38 AM TYPE COPY EXAMINER Patient No: [id number] ? [facility] Patient Name: CAIT MATHEWS ? [facility] Age: 18 YRS ?: 1995 ?Sex:F ?[address] )[id number] ?? Adm Dt: 06/13/2014 ?[place], [place] ??[address] Created: 06/14/2014 ??0038 ?? Pt. Type: E ? Discharge Dt: 06/13/2014 ? Pathologists: Shannon Gomez MD Admit Dr. Armijo Dr: VLAD MERCHANT MD ? SEROLOGY ?Collection Date: ?06/13/14 ?Collection Time: ?0204 ? Ref Range: ?? Units: [NEGATIVE] ?GRP A BETA STR ?NEGATIVE ?? END OF CHART ? Page: ?? 1 us Historical Provider MD LAB BLOOD ORDERABLES Alicja l Result HISTORICAL RESULTS documented in this encounter Visit Diagnoses Diagnosis Acute pharyngitis Tobacco use disorder documented in this encounter
--- OUTSIDE RECORDS SUMMARY | 2024-04-27 18:08 | XMS_ITS | Encounter Summary ---
Author Organization [facility] Healthcare Address [address] [place] [address] Care Team Providers Care Disk Grinder Name Role Phone Unavailable Primary Care Provider Unavailabl e Encounter Details Date Type Department Care Team ([facility] st Contact Info) Description 05/23/2013 7:53 AM FUR IRONER - 05/23/2013 11:59 PM FUR IRONER Hospital Encounter [facility] Jon Sterling MD [address] [place] [facility] [address] [place] [address] Rob Steiner NP [address] [place] [address] Other specified screening Social History Tobacco Use Types Packs/Day Years Used Date Smoking Tobacco: Never Assessed Comments Unknown Sex and Gender Information Value Date Recorded Sex Assigned at Not on file Legal Sex Female 6:54 PM FUR IRONER Gender Identity Not on file Sexual Orientation Not on file documented as of this encounter Plan of Treatment Not on file documented as of this encounter Procedures Procedure Name Priority Date/Time Associated Diagnosis Comments SONOGRAPHY, COMPLETE Routine 05/23/2013 8:45 AM FUR IRONER US TRANSVAGINAL Routine 05/23/2013 8:45 AM FUR IRONER documented in this encounter Results * SONOGRAPHY, COMPLETE (05/23/2013 8:45 AM FUR IRONER) Anatomical Region Laterality Modality N/A Ultrasound 05/23/2013 8:45 AM FUR IRONER Narrative 05/23/2013 5:43 PM FUR IRONER US OB <14 wks ??Acc#: ??[id number] US OB Transvaginal ??Acc#: ??[id number] DATE OF EXAM: ??May 23 2013 CLINICAL HISTORY: Check dates. RESULT: Transvaginal and transabdominal examination was performed. ??Longitudinal and transverse realtime scans demonstrate intrauterine gestational sac with pole and yolk sac. ?? heart motion was evident, heart rate of 177 beats per minute. ??The mean crown-rump length is 20.3 mm correlating with an estimated age of 8 weeks 4 days with ULISES of 12/29/2013. ??Maternal cervical length is 3.7 cm. ??The ovaries are unremarkable. ??No free fluid identified. ??Minor discrepancy between the clinical age and the ultrasound age. ??This may be within the range of normal. ??The last menstrual period may be in error. IMPRESSION: LIVE INTRAUTERINE FETUS. ??ESTIMATED AGE IS 8 WEEKS 4 DAYS WITH ULISES OF 12/29/2013. ??MINOR DISCREPANCY BETWEEN THE CLINICAL AGE AND THE ULTRASOUND AGE, WHICH MAY BE WITHIN THE RANGE OF NORMAL. Interpreting Physician: ??JOSE JUAN MAHMOOD M.D. ??Read on: ??May 23 2013 ??8:57A Transcribed by: ??VLR ??On: May 23 2013 ??1:58P Approved Electronically by: ??JOSE JUAN MAHMOOD M.D. ??on: ??May 23 2013 ??5:43P Ordering DR: ROB STEINER Attending FLORENTINO STEINER Procedure Note Provider, MD Amada - 08/30/2016 US OB <14 wks Acc#: [id number] OB Transvaginal Acc#: [id number] DATE OF EXAM: May 23 2013 CLINICAL HISTORY: Check dates. RESULT: Transvaginal and transabdominal examination was performed. Longitudinaland transverse realtime scans demonstrate intrauterine gestational sacwith pole and yolk sac. heart motion was evident, heart rateof 177 beats per minute. The mean crown-rump length is 20.3 mmcorrelating with an estimated age of 8 weeks 4 days with ULISES of 12/29/2013.Maternal cervical length is 3.7 cm. The ovaries are unremarkable. Nofree fluid identified. Minor discrepancy between the clinical age and theultrasound age. This may be within the range of normal. The lastmenstrual period may be in error. IMPRESSION: LIVE INTRAUTERINE FETUS. ESTIMATED AGE IS 8 WEEKS 4 DAYS WITH ULISES OF12/29/2013. MINOR DISCREPANCY BETWEEN THE CLINICAL AGE AND THE ULTRASOUNDAGE, WHICH MAY BE WITHIN THE RANGE OF NORMAL. Interpreting Physician: JOSE JUAN MAHMOOD M.D. Read on: May 23 2013 8:57A Transcribed by: SY On: May 23 2013 1:58P Approved Electronically by: JOSE JUAN MAHMOOD M.D. on: May 23 2013 5:43P Ordering DR: ROB STEINER Attending DR: ROB STEINER us Historical Provider MD RIDER US PROCEDURES Final R esult * US Transvaginal (05/23/2013 8:45 AM FUR IRONER) Anatomical Region Laterality Modality Pelvis N/A Ultrasound 05/23/2013 8:45 AM FUR IRONER Narrative 05/23/2013 5:43 PM FUR IRONER US OB <14 wks ??Acc#: ??[id number] US OB Transvaginal ??Acc#: ??[id number] DATE OF EXAM: ??May 23 2013 CLINICAL HISTORY: Check dates. RESULT: Transvaginal and transabdominal examination was performed. ??Longitudinal and transverse realtime scans demonstrate intrauterine gestational sac with pole and yolk sac. ?? heart motion was evident, heart rate of 177 beats per minute. ??The mean crown-rump length is 20.3 mm correlating with an estimated age of 8 weeks 4 days with ULISES of 12/29/2013. ??Maternal cervical length is 3.7 cm. ??The ovaries are unremarkable. ??No free fluid identified. ??Minor discrepancy between the clinical age and the ultrasound age. ??This may be within the range of normal. ??The last menstrual period may be in error. IMPRESSION: LIVE INTRAUTERINE FETUS. ??ESTIMATED AGE IS 8 WEEKS 4 DAYS WITH ULISES OF 12/29/2013. ??MINOR DISCREPANCY BETWEEN THE CLINICAL AGE AND THE ULTRASOUND AGE, WHICH MAY BE WITHIN THE RANGE OF NORMAL. Interpreting Physician: ??JOSE JUAN MAHMOOD M.D. ??Read on: ??May 23 2013 ??8:57A Transcribed by: ??VLR ??On: May 23 2013 ??1:58P Approved Electronically by: ??JOSE JUAN MAHMOOD M.D. ??on: ??May 23 2013 ??5:43P Ordering DR: ROB STEINER Attending : ROB STEINER Procedure Note Provider, MD Amada - 08/30/2016 US OB <14 wks Acc#: [id number] US OB Transvaginal Acc#: [id number] DATE OF EXAM: May 23 2013 CLINICAL HISTORY: Check dates. RESULT: Transvaginal and transabdominal examination was performed. Longitudinaland transverse realtime scans demonstrate intrauterine gestational sacwith pole and yolk sac. heart motion was evident, heart rateof 177 beats per minute. The mean crown-rump length is 20.3 mmcorrelating with an estimated age of 8 weeks 4 days with ULISES of 12/29/2013.Maternal cervical length is 3.7 cm. The ovaries are unremarkable. Nofree fluid identified. Minor discrepancy between the clinical age and theultrasound age. This may be within the range of normal. The lastmenstrual period may be in error. IMPRESSION: LIVE INTRAUTERINE FETUS. ESTIMATED AGE IS 8 WEEKS 4 DAYS WITH ULISES OF12/29/2013. MINOR DISCREPANCY BETWEEN THE CLINICAL AGE AND THE ULTRASOUNDAGE, WHICH MAY BE WITHIN THE RANGE OF NORMAL. Interpreting Physician: JOSE JUAN MAHMOOD M.D. Read on: May 23 2013 8:57A Transcribed by: SY On: May 23 2013 1:58P Approved Electronically by: JOSE JUAN MAHMOOD M.D. on: May 23 2013 5:43P Ordering DR: ROB STEINER Attending : ROB STEINER us Historical Provider MD RIDER US PROCEDURES Final R esult documented in this encounter Visit Diagnoses Diagnosis Other specified screening documented in this encounter
--- OUTSIDE RECORDS SUMMARY | 2024-04-27 18:08 | XMS_ITS | Encounter Summary ---
Author Organization [facility] Healthcare Address [address] [place] [address] Care Team Providers Care Hospice Consultant Name Role Phone Unavailable Primary Care Provider Unavailabl e Encounter Details Date Type Department Care Team ([facility] Contact Info) Description 01/02/2011 3:37 PM CDT - 01/02/2011 11:59 PM CDT Hospital Encounter [facility] CLINCONV Exposure to sexually transmitted disease (STD); Problems related to high-risk sexual behavior; Screening examination for sexually transmitted disease; Screening for malignant neoplasm of cervix Social History Tobacco Use Types Packs/Day Years Used Date Smoking Tobacco: Never Assessed Comments Unknown Sex and Gender Information Value Date Recorded Sex Assigned at Not on file Legal Sex Female 6:54 PM DUST SAMPLER Gender Identity Not on file Sexual Orientation Not on file documented as of this encounter Plan of Treatment Not on file documented as of this encounter Visit Diagnoses Diagnosis Exposure to sexually transmitted disease (STD) Contact with or exposure to venereal diseases Problems related to high-risk sexual behavior Screening examination for sexually transmitted disease Screening for malignant neoplasm of cervix Screening for malignant neoplasm of the cervix documented in this encounter
--- OUTSIDE RECORDS SUMMARY | 2024-04-27 18:08 | XMS_ITS | Encounter Summary ---
Author Organization [facility] Healthcare Address [address] [place] [address] Care Team Providers Care Parole Hearing Officer Name Role Phone Unavailable Primary Care Provider Unavailabl e Encounter Details Date Type Department Care Team ([facility] st Contact Info) Description 11/28/2006 4:09 PM CDT - 11/28/2006 9:45 PM CDT Hospital Encounter [facility] CLINCONV Jesús Hernandez MD [facility] [place] [address] Gala Singh MD [address] [place] [address] [address] Social History Tobacco Use Types Packs/Day Years Used Date Smoking Tobacco: Never Assessed Comments Unknown Sex and Gender Information Value Date Recorded Sex Assigned at Not on file Legal Sex Female 6:54 PM HCC CODERS Gender Identity Not on file Sexual Orientation Not on file documented as of this encounter Plan of Treatment Not on file documented as of this encounter Visit Diagnoses Not on filedocumented in this encounter
--- OUTSIDE RECORDS SUMMARY | 2024-04-27 18:08 | XMS_ITS | Encounter Summary ---
Author Organization [facility] Healthcare Address [address] [place] [address] Care Team Providers Care Bone Char Kiln Operator Name Role Phone Unavailable Primary Care Provider Unavailabl e Encounter Details Date Type Department Care Team ([facility] st Contact Info) Description 05/03/2013 11:20 PM MASTER OCEAN - 05/04/2013 1:02 AM MASTER OCEAN Hospital Encounter [facility] Vlad Dumont MD [address] [place] [address] [place] [address] Threatened , antepartum Social History Tobacco Use Types Packs/Day Years Used Date Smoking Tobacco: Never Assessed Comments Unknown Sex and Gender Information Value Date Recorded Sex Assigned at Not on file Legal Sex Female 6:54 PM MASTER OCEAN Gender Identity Not on file Sexual Orientation Not on file documented as of this encounter Plan of Treatment Not on file documented as of this encounter Procedures Procedure Name Priority Date/Time Associated Diagnosis Comments DISCHARGE LABORATORY CUMULATIVE REPORT Routine 05/04/2013 12:00 AM MASTER OCEAN BLOOD WBC CELL MORPHOLOGIC EXAM, AUTO Routine 05/03/2013 11:56 PM MASTER OCEAN BLOOD CELL COUNT (CBC) Routine 05/03/2013 11:56 PM MASTER OCEAN SERUM CHORIONIC GONADOTROPIN (HCG), QUANTITATIVE Routine 05/03/2013 5:56 PM MASTER OCEAN documented in this encounter Results * Discharge Laboratory Cumulative Report (05/04/2013 12:00 AM MASTER OCEAN) 05/04/2013 Narrative HISTORICAL RESULTS - 05/05/2013 12:28 AM MASTER OCEAN Patient No: [id number] ? [facility] Patient Name: CAIT AJ ? [facility] Age: 17 YRS ?: 1995 ?Sex:F ?[address] )[id number] ?? Adm Dt: 05/03/2013 ?[place], [place] ??[address] Created: 05/05/2013 ??0028 ?? Pt. Type: E ? Discharge Dt: 05/04/2013 ? Pathologists: Shannon Gomez MD Admit Attend Dr: VLAD MOYER MD ? BLOOD CELL COUNTS ?Collection Date: ?05/03/13 ?Collection Time: ?2356 ? Ref Range: ?? Units: [4.00-10.50] /CMM ? WBC X 10^3 ? 11.68 H [4.20-5.40] ??/CMM ? RBC X 10^6 ?4.42 [12.0-16.0] ??G/DL ? HGB ? 13.2 [37.0-47.0] ??% ?HCT ? 39.6 [77.0-97.0] ??FL ? MCV ? 89.6 [23.0-34.0] ??PG ? MCH ? 29.9 [32.0-36.0] ??% ?MCHC ?33.3 [11.5-14.5] ??% ?RDW ? 12.6 [150-451] ?? /CMM ? PLT X 10^3 ? 260 ?BLOOD CELL DIFFERENTIAL ?Collection Date: ?05/03/ ?Collection Time: ?2356 ? Ref Range: ?? Units: [54.0-69.0] ??% ?NEUTROPHILS ? 66.9 [25.0-33.0] ??% ?LYMPHOCYTES ? 22.8 L [1.0-13.0] ??% ?MONOCYTES ?7.6 [0.0-10.0] ??% ?EOSINOPHILS ?1.5 [0.0-1.0] ?? % ?BASOPHILS ?0.4 ? /CMM ? A LYMPHOCYTE ? 2.7 [0.0-1.0] ?? % ?IMM GRAN % ? 0.8 [0.00-0.02] ??/CMM ? A IMM GRAN ?0.09 H [1.1-1.9] ?? /CMM ? A MONOCYTE ? 0.9 L [1.4-6.5] ?? /CMM ? A NEUTROPHIL ? 7.8 H [0.0-0.7] ?? /CMM ? A EOSINOPHIL ? 0.2 [0.0-0.2] ?? /CMM ? A BASOPHIL ? 0.1 Footnotes and Symbols: L = Low, H = High ?? CONTINUED ?Page: ?? 1 Patient No: [id number] ? [facility] Patient Name: CAIT AJ ? [facility] Age: 17 YRS ?: 1995 ?Sex:F ?[address] )[id number] ?? Adm Dt: 05/03/2013 ?[place], [place] ??[address] Created: 05/05/2013 ??0028 ?? Pt. Type: E ? Discharge Dt: 05/04/2013 ? Pathologists: Shannon Gomez MD Admit Attend Dr: VLAD MOYER MD ? HORMONES ?Collection Date: ?05/03/13 ?Collection Time: ?2356 ? Ref Range: ?? Units: ? mIU/ml ? BETA HCG QUANT ? 18376 f Footnotes and Symbols: f = Footnote BETA HCG QUANT (Initial -- Current) NEGATIVE: ??0-5 MIU/ML BORDERLINE: ??5-25 MIU/ML POSITIVE: ??GREATER THAN 25 MIU/ML APPROX GEST AGE ?APPROX HCG CONCENTRATION ?3-4 WEEKS ?9-130 ?4-5 WEEKS ? 752600 ?5-6 WEEKS ?850-20,800 ?6-7 WEEKS ? 4000-100,200 ?7-12 WEEKS ? 75810-434,000 ?? 12-16 WEEKS ? 84[address]-226,000 ?? 16-29 WEEKS ?1400-53,000 ?? 29-41 WEEKS ? 900-60,000 ?? END OF CHART ? Page: ?? 2 Historical Provider LAB BLOOD ORDERABLES Alicja l Result Performing Organization Address City/State/[facility] Co de Phone Number HISTORICAL RESULTS * (ABNORMAL) Blood cell count (CBC) (05/03/2013 11:56 PM MASTER OCEAN) WBC 11.7(H) 4.0 - 10.5 K/cumm HISTORICAL RESULTS RBC 4.42 4.20 - 5.40 M/cumm HISTORICAL RESULTS Hgb 13.2 12.0 - 16.0 g/dl HISTORICAL RESULTS Hct 39.6 37.0 - 47.0 % HISTORICAL RESULTS MCV 89.6 77.0 - 97.0 fl HISTORICAL RESULTS MCH 29.9 23.0 - 34.0 pg HISTORICAL RESULTS MCHC 33.3 32.0 - 36.0 g/dl HISTORICAL RESULTS Rdw 12.6 11.5 - 14.5 % HISTORICAL RESULTS Platelets 260 150 - 451 K/cumm HISTORICAL RESULTS MPV 9.8 7.4 - 10.4 fl HISTORICAL RESULTS Blood specimen (specimen) 05/03/2013 11:56 PM MASTER OCEAN Vlad Moyer MD LAB BLOOD ORDERABLES Final Re sult Performing Organization Address City/[facility] de Phone Number HISTORICAL RESULTS * (ABNORMAL) Blood WBC cell morphologic exam, auto (05/03/2013 11:56 PM MASTER OCEAN) Pathologist [facility] Lymphocytes 22.8(L) 25.0 - 33.0 % HISTORICAL RESULTS Monos 7.6 1.0 - 13.0 % HISTORICAL RESULTS Neutrophils 66.9 54.0 - 69.0 % HISTORICAL RESULTS Eosinophils 1.5 0.0 - 10.0 % HISTORICAL RESULTS Basophils 0.4 0.0 - 1.0 % HISTORICAL RESULTS Immature granulocytes 0.8 0.0 - 1.0 % HISTORICAL RESULTS Lymphocytes, abs 2.7 1.2 - 3.4 K/cumm HISTORICAL RESULTS Monocytes, absolute 0.9(L) 1.1 - 1.9 K/cumm HISTORICAL RESULTS Neutrophils, abs 7.8(H) 1.4 - 6.5 K/cumm HISTORICAL RESULTS Eosinophils, abs 0.2 0.0 - 0.7 cells/cum m HISTORICAL RESULTS Basophils, abs 0.1 0.0 - 0.2 K/cumm HISTORICAL RESULTS Immature granulocyte, abs 0.1(H) 0.0 - 0.0 K/cumm HISTORICAL RESULTS Blood specimen (specimen) 05/03/2013 11:56 PM MASTER OCEAN Vlad Moyer MD LAB BLOOD ORDERABLES Final [facility] Performing Organization Address [facility] de Phone Number HISTORICAL RESULTS * Serum chorionic gonadotropin (HCG), quantitative (05/03/2013 5:56 PM MASTER OCEAN) Pathologist [facility] HCG, quant [address].0 IUnits/L HISTORICA L RESULTS Serum 05/03/2013 5:56 PM MASTER OCEAN Narrative HISTORICAL RESULTS - 05/03/2013 6:48 PM MASTER OCEAN NEGATIVE: ??0-5 MIU/ML BORDERLINE: ??5-25 MIU/ML POSITIVE: ??GREATER THAN 25 MIU/ML APPROX GEST AGE ?APPROX HCG CONCENTRATION ?3-4 WEEKS ?9-130 ?4-5 WEEKS ? 75-2600 ?5-6 WEEKS ?850-20,800 ?6-7 WEEKS ? 4000-100,200 ?7-12 WEEKS ? 90744-015,000 ?? 12-16 WEEKS ? 78585-759,000 ?? 16-29 WEEKS ?1400-53,000 ?? 29-41 WEEKS ? 900-60,000 us Vlad Moyer MD LAB BLOOD ORDERABLES Final Re sult HISTORICAL RESULTS documented in this encounter Visit Diagnoses Diagnosis Threatened , antepartum documented in this encounter
--- OUTSIDE RECORDS SUMMARY | 2024-04-27 18:08 | XMS_ITS | Encounter Summary ---
Author Organization [facility] Healthcare Address [address] [place] [address] Care Team Providers Care Web Producer Name Role Phone Unavailable Primary Care Provider Unavailabl e Encounter Details Date Type Department Care Team ([facility] st Contact Info) Description 11/28/2006 3:39 PM CDT - 11/28/2006 11:59 PM CDT Hospital Encounter [facility] CLINCONV Social History Tobacco Use Types Packs/Day Years Used Date Smoking Tobacco: Never Assessed Comments Unknown Sex and Gender Information Value Date Recorded Sex Assigned at Not on file Legal Sex Female 6:54 PM ARTIST'S MANAGER Gender Identity Not on file Sexual Orientation Not on file documented as of this encounter Plan of Treatment Not on file documented as of this encounter Visit Diagnoses Not on filedocumented in this encounter
--- OUTSIDE RECORDS SUMMARY | 2024-04-27 18:08 | XMS_ITS | Encounter Summary ---
Author Organization [facility] Healthcare Address [address] [place] [address] Care Team Providers Care Television Anchor Name Role Phone Unavailable Primary Care Provider Unavailabl e Encounter Details Date Type Department Care Team ([facility] st Contact Info) Description 06/11/2010 9:20 PM MACHINE TACK PULLER - 06/11/2010 10:02 PM MACHINE TACK PULLER Hospital Encounter [facility] FARNAZCONV Milo Rossi MD [address] [facility] [address] [place] [address] Gala Singh MD [address] [place] [address] Sprain and strain of elbow and forearm; Place of occurrence, place for recreation and sport; Activities involving wrestling Social History Tobacco Use Types Packs/Day Years Used Date Smoking Tobacco: Never Assessed Comments Unknown Sex and Gender Information Value Date Recorded Sex Assigned at Not on file Legal Sex Female 6:54 PM MACHINE TACK PULLER Gender Identity Not on file Sexual Orientation Not on file documented as of this encounter Plan of Treatment Not on file documented as of this encounter Visit Diagnoses Diagnosis Sprain and strain of elbow and forearm Place of occurrence, place for recreation and sport Activities involving wrestling documented in this encounter
--- OUTSIDE RECORDS SUMMARY | 2024-04-27 18:08 | XMS_ITS | Encounter Summary ---
Author Organization [facility] Healthcare Address [address] [place] [address] Care Team Providers Care Guest Services Representative Name Role Phone Unavailable Primary Care Provider Unavailabl e Encounter Details Date Type Department Care Team (Latest Contact Info) Description 04/14/2016 11:28 PM ADJUNCT FACULTY FOR MEDICAL TERMINOLOGY - 04/15/2016 12:05 AM ADJUNCT FACULTY FOR MEDICAL TERMINOLOGY Hospital Encounter [facility]INCON[facility] Benjamin Barros MD [address] [place] [address] Dental caries; Nicotine dependence, uncomplicated; Elevated blood pressure reading without diagnosis of hypertension Social History Tobacco Use Types Packs/Day Years Used Date Smoking Tobacco: Never Assessed Comments Unknown Sex and Gender Information Value Date Recorded Sex Assigned at Not on file Legal Sex Female 6:54 PM ADJUNCT FACULTY FOR MEDICAL TERMINOLOGY Gender Identity Not on file Sexual Orientation Not on file documented as of this encounter Plan of Treatment Not on file documented as of this encounter Visit Diagnoses Diagnosis Dental caries Unspecified dental caries Nicotine dependence, uncomplicated Elevated blood pressure reading without diagnosis of hypertension documented in this encounter
--- OUTSIDE RECORDS SUMMARY | 2024-04-27 18:08 | XMS_ITS | Encounter Summary ---
Author Organization [facility] Healthcare Address [address] [place] [address] Care Team Providers Care Instrument Repair Technician Name Role Phone Unavailable Primary Care Provider Unavailabl e Encounter Details Date Type Department Care Team ([facility] st Contact Info) Description 07/07/2006 5:42 AM PRODUCER - 07/07/2006 8:10 AM PRODUCER Hospital Encounter [facility] Milo Sorensen, Gala Canela MD [address] [place] [address] [address] Social History Tobacco Use Types Packs/Day Years Used Date Smoking Tobacco: Never Assessed Comments Unknown Sex and Gender Information Value Date Recorded Sex Assigned at Not on file Legal Sex Female 6:54 PM PRODUCER Gender Identity Not on file Sexual Orientation Not on file documented as of this encounter Plan of Treatment Not on file documented as of this encounter Visit Diagnoses Not on filedocumented in this encounter
--- OUTSIDE RECORDS SUMMARY | 2024-04-27 18:08 | XMS_ITS | Encounter Summary ---
Author Organization [facility] Healthcare Address [address] [place] [address] Care Team Providers Care Home Extension Agent Name Role Phone Unavailable Primary Care Provider Unavailabl e Encounter Details Date Type Department Care Team ([facility] Contact Info) Description 03/23/2012 10:17 PM EXPEDITIONARY FORCE COMBAT SKILLS - 03/23/2012 11:26 PM EXPEDITIONARY FORCE COMBAT SKILLS Hospital Encounter [facility] Nita Orr MD [address] [place] [address] Neck sprain and strain; Tobacco use disorder Social History Tobacco Use Types Packs/Day Years Used Date Smoking Tobacco: Never Assessed Comments Unknown Sex and Gender Information Value Date Recorded Sex Assigned at Not on file Legal Sex Female 6:54 PM EXPEDITIONARY FORCE COMBAT SKILLS Gender Identity Not on file Sexual Orientation Not on file documented as of this encounter Plan of Treatment Not on file documented as of this encounter Visit Diagnoses Diagnosis Neck sprain and strain Tobacco use disorder documented in this encounter
--- OUTSIDE RECORDS SUMMARY | 2024-04-27 18:08 | XMS_ITS | Encounter Summary ---
Author Organization [facility] Healthcare Address [address] [place] [address] Care Team Providers Care Administrative Director Name Role Phone Unavailable Primary Care Provider Unavailabl e Encounter Details Date Type Department Care Team (Latest Contact Info) Description 10/23/2013 11:46 AM CDT - 10/23/2013 2:05 PM CDT Hospital Encounter [facility] CLINCONV Other current maternal conditions classifiable elsewhere, antepartum; Abdominal pain; Backache Social History Tobacco Use Types Packs/Day Years Used Date Smoking Tobacco: Never Assessed Comments Unknown Sex and Gender Information Value Date Recorded Sex Assigned at Not on file Legal Sex Female 6:54 PM SLUBBER FRAME CHANGER Gender Identity Not on file Sexual Orientation Not on file documented as of this encounter H&P Notes * ProviderAmada MD - 10/23/2013 2:05 PM CDT Datetime Report Generated by N: 10/23/2013 15:36 Patient Name: CAIT MATHEWS : 1995 Admission Information Arrival Date/Time: 10/23/2013 11:50 (10/23/2013 12:00/Sera Abbott RN) Attending Physician: Dr Metcalf (10/23/2013 12:00/Natalya Hayes RN) Method of arrival: Ambulatory (10/23/2013 12:00/Srea Abbott RN) Admitted From: Home (10/23/2013 12:00/Sera Abbott RN) Arrival Comments: sharp pain that went from her back to her stomach (10/23/2013 12:00/Sera Abbott RN) Time Provider Notified: 10/23/2013 13:10 (10/23/2013 12:00/Natalya Hayes RN) Provider: Dr Metcalf (10/23/2013 12:00/Natalya Hayes RN) Movement: Present (10/23/2013 12:00/Sera Abbott RN) Contractions: Denies/Absent (10/23/2013 12:00/Sera Abbott RN) Rupture of membrane: Denies (10/23/2013 12:00/Sera Abbott RN) Recent Sexual [place]: Denies (10/23/2013 12:00/Sera Abbott RN) Vaginal discharge: Denies (10/23/2013 12:00/Sera Abbott RN) Abdominal Trauma: Not Applicable (10/23/2013 12:00/Sera Abbott RN) Vaginal Bleeding : None (10/23/2013 12:00/Sera Abbott RN) Patient Complaints: None (10/23/2013 12:00/Sera Abbott RN) Triage Inital Plan: EFM and toco applied to monitor wellbeing. PO hydrate. UA. (10/23/2013 12:00/Sera Abbott RN) Patient Dispostion: Discharged Home (10/23/2013 12:00/Natalya Hayes RN) Triage Summary: ua repeated with cath ua, negative, viewed per Dr Metcalf, no contractions noted, reactive strip, d/c home (10/23/2013 12:00/Natalya Hayes RN) Datetime Report Generated by BOLIVAR: 10/23/2013 15:36 In threatening relationship: No (10/23/2013 12:00/Sera Abbott RN) History of Domestic Violence: No (10/23/2013 12:00/Sera Abbott RN) Do you feel UNSAFE at Home: No (10/23/2013 12:00/Sera Abbott RN) Domestic Violence Observed: No (10/23/2013 12:00/Sera Abbott RN) documented in this encounter Plan of Treatment Not on file documented as of this encounter Procedures Procedure Name Priority Date/Time Associated Diagnosis Comments URINE MICROSCOPY Routine 10/23/2013 1:05 PM CDT URINALYSIS Routine 10/23/2013 1:05 PM CDT URINE MICROSCOPY Routine 10/23/2013 12:0 0 PM CDT URINALYSIS Routine 10/23/2013 12:00 PM CDT DISCHARGE LABORATORY CUMULATIVE REPORT Routine 10/23/2013 12:00 AM CDT documented in this encounter Results * (ABNORMAL) Urinalysis (10/23/2013 1:05 PM CDT) Color, ur YELLOW YELLOW HISTORICAL RESULTS Clarity, ur CLEAR CLEAR HISTORIC AL RESULTS Specific gravity, ur 1.018 1.003 - 1.030 gu HISTORICAL RESULTS Leukocyte esterase, ur Negative NEGATIVE HISTORICAL RESULTS Nitrites, ur Negative NEGATIVE HISTORI MANAS RESULTS pH, ur 7.0 6.0 HISTORICAL RESULTS Protein, ur 30 NEGATIVE HISTORIC AL RESULTS Glucose, ur Negative NEGATIVE HISTORIC AL RESULTS Ketones, ur Negative NEGATIVE HISTORIC AL RESULTS Urobilinogen, quant, ur 0.2 0.2 - 1.0 mg/dl HISTORICAL RESULTS Bilirubin, ur Negative NEGATIVE HISTOR ICAL RESULTS U Blood SMALL(A) NEGATIVE HISTORICAL RESULTS Urine 10/23/2013 1:05 PM CDT [facility] [employer] LAB BLOOD ORDERABLES Final Resu lt Performing Organization Address [facility] [[email or web address]] Co de Phone Number HISTORICAL RESULTS * (ABNORMAL) Urine microscopy (10/23/2013 1:05 PM CDT) WBC, ur 0 - 2 0 - 2 /hpf HISTORICA L RESULTS RBC, ur 2 - 5(A) 0 - 5 /hpf HISTORICA L RESULTS Epithelial cells, ur 2 - 5(A) 0 - 2 /hpf HISTORICAL RESULTS Bacteria, ur Negative NEGATIVE /hpf HISTORICAL RESULTS Hyaline casts 2 - 5 0 - 4 /lpf HISTO RICAL RESULTS Crystals, ur Negative NEGATIVE HISTORI MANAS RESULTS Yeast, ur Negative NEGATIVE HISTORICAL RESULTS Pathological casts, ur Negative NEGATIVE HISTORICAL RESULTS Urine 10/23/2013 1:05 PM CDT [employer] LAB BLOOD ORDERABLES Final Resu lt Performing Organization Address [facility] de Phone Number HISTORICAL RESULTS * (ABNORMAL) Urinalysis (10/23/2013 12:00 PM CDT) Color, ur DRKYEL HISTORICAL RESULTS Clarity, ur CLOUDY(A) CLEAR HISTORIC AL RESULTS Specific gravity, ur >1.030 1.003 - 1.030 gu HISTORICAL RESULTS Leukocyte esterase, ur Negative NEGATIVE HISTORICAL RESULTS Nitrites, ur Negative NEGATIVE HISTORI MANAS RESULTS pH, ur 6.5 6.0 HISTORICAL RESULTS Protein, ur >=1000 HISTORIC AL RESULTS Glucose, ur Negative NEGATIVE HISTORIC AL RESULTS Ketones, ur Trace NEGATIVE HISTORIC AL RESULTS Urobilinogen, quant, ur 0.2 0.2 - 1.0 mg/dl HISTORICAL RESULTS Bilirubin, ur Negative NEGATIVE HISTOR ICAL RESULTS U Blood Trace(A) NEGATIVE HISTORICAL RESULTS Urine 10/23/2013 12:0 0 PM CDT [employer] LAB BLOOD ORDERABLES Final Resu lt HISTORICAL RESULTS * (ABNORMAL) Urine microscopy (10/23/2013 12:00 PM CDT) WBC, ur 50 - 100(A) 0 - 2 /hpf HISTORI MANAS RESULTS RBC, ur 10 - 25(A) 0 - 5 /hpf HISTORIC AL RESULTS Epithelial cells, ur 10 - 25(A) 0 - 2 /hpf HISTORICAL RESULTS Bacteria, ur 3+(A) NEGATIVE /hpf HISTORICAL RESULTS Hyaline casts >30(A) 0 - 4 /lpf HISTO RICAL RESULTS Crystals, ur Negative NEGATIVE HISTORI MANAS RESULTS Yeast, ur Negative NEGATIVE HISTORICAL RESULTS Additional result, ur HISTORICAL RESULTS Comment:2+ MUCUS Pathological casts, ur Negative NEGATIVE HISTORICAL RESULTS Urine 10/23/2013 12:0 0 PM CDT [facility] LAB BLOOD ORDERABLES Final Resu lt HISTORICAL RESULTS * Discharge Laboratory Cumulative Report (10/23/2013 12:00 AM CDT) 10/23/2013 Narrative HISTORICAL RESULTS - 10/24/2013 12:38 AM CDT Patient No: [id number] ? [facility] Patient Name: CAIT MATHEWS ? [facility] Healthcare Age: 17 YRS ?: 1995 ?Sex:F ?[address] )[id number] ?? Adm Dt: 10/23/2013 ?[place] ??[id number] Created: 10/24/2013 ??0038 ?? Pt. Type: U ? Discharge Dt: 10/23/2013 ? Pathologists: Shannon Gomez MD Admit Attend Dr: BISMARK MASON MD ?URINALYSIS ?Collection Date: ?10/23/13 ? 10/23/13 ?Collection Time: ?1305 ? 1200 ? Ref Range: ?? Units: ?U COLOR ?DRKYEL [YELLOW] ? U COLOR ? YELLOW ??[CLEAR] ? U APPEARANCE ? CLEAR ? CLOUDY * [1.003-1.030] ? U SPEC GRAVITY ? 1.018 ? >1.030 [NEGATIVE] ?U LEUKO ESTRASE ? NEGATIVE ? NEGATIVE [NEGATIVE] ?U NITRITE ? NEGATIVE ? NEGATIVE ?? [6.0] ?U PH ? 7.0 ?6.5 ?U PROTEIN ?>=1000 [NEGATIVE] ?U PROTEIN ? 30 [NEGATIVE] ?U GLUCOSE ? NEGATIVE ? NEGATIVE [NEGATIVE] ?U KETONES ? NEGATIVE ?TRACE [0.2- 1.0] ?UROBILINOGEN ? 0.2 ?0.2 [NEGATIVE] ?U BILIRUBIN ? NEGATIVE ? NEGATIVE [NEGATIVE] ?U BLOOD ?SMALL * ?TRACE * ?? [0-2] ?U WBC ?0-2 ? 50-100 * ?? [0-5] ?U RBC ?2-5 * ?10-25 * ?? [0-2] ?U EPI CELLS ?2-5 * ?10-25 * [NEGATIVE] ?U BACTERIA ?NEGATIVE ? 3+ * ?U YEASTS ?NEGATIVE ? NEGATIVE ?? [0-4] ?U HYALINE CASTS ?2-5 ?>30 * [NEGATIVE] ?U CRYSTALS ?NEGATIVE ? NEGATIVE ?U OTHER ? * [NEGATIVE] ?U PATH CASTS ?NEGATIVE ? NEGATIVE Footnotes and Symbols: * = Abnormal ?? END OF CHART ? Page: ?? 1 us Historical Provider LAB BLOOD ORDERABLES Alicja coats Result HISTORICAL RESULTS documented in this encounter Visit Diagnoses Diagnosis Other current maternal conditions classifiable elsewhere, antepartum Abdominal pain Abdominal pain, unspecified site Backache Unspecified backache documented in this encounter
--- OUTSIDE RECORDS SUMMARY | 2024-04-27 18:08 | XMS_ITS | Encounter Summary ---
Author Organization [facility] Healthcare Address [address] [place] [address] Care Team Providers Care Semiconductor Processor Name Role Phone Unavailable Primary Care Provider Unavailabl e Encounter Details Date Type Department Care Team ([facility] Contact Info) Description 10/19/2012 9:47 PM CDT - 10/19/2012 10:41 PM CDT Hospital Encounter [facility] Nita Orr MD [address] [place] [address] Nausea without vomiting; Viral infection in conditions classified elsewhere and of unspecified site Social History Tobacco Use Types Packs/Day Years Used Date Smoking Tobacco: Never Assessed Comments Unknown Sex and Gender Information Value Date Recorded Sex Assigned at Not on file Legal Sex Female 6:54 PM CUSTOMER CARE PROFESSIONAL Gender Identity Not on file Sexual Orientation Not on file documented as of this encounter Plan of Treatment Not on file documented as of this encounter Visit Diagnoses Diagnosis Nausea without vomiting Viral infection in conditions classified elsewhere and of unspecified site documented in this encounter
--- OUTSIDE RECORDS SUMMARY | 2024-04-27 18:08 | XMS_ITS | Encounter Summary ---
Author Organization [facility] Healthcare Address [address] [place] [address] Care Team Providers Care Expeller Operator Name Role Phone Unavailable Primary Care Provider Unavailabl e Encounter Details Date Type Department Care Team ([facility] st Contact Info) Description 04/15/2016 7:59 PM PRECIPITATE WASHER - 04/15/2016 10:59 PM PRECIPITATE WASHER Hospital Encounter [facility] CLINCONV Benjamin Barros MD [address] [id number] Other specified disorders of teeth and supporting structures Social History Tobacco Use Types Packs/Day Years Used Date Smoking Tobacco: Never Assessed Comments Unknown Sex and Gender Information Value Date Recorded Sex Assigned at Not on file Legal Sex Female 6:54 PM PRECIPITATE WASHER Gender Identity Not on file Sexual Orientation Not on file documented as of this encounter Plan of Treatment Not on file documented as of this encounter Visit Diagnoses Diagnosis Other specified disorders of teeth and supporting structures documented in this encounter
--- OUTSIDE RECORDS SUMMARY | 2024-04-27 18:08 | XMS_ITS | Encounter Summary ---
Author Organization [facility] Healthcare Address [address] [place] [address] Care Team Providers Care Levee Superintendent Name Role Phone Unavailable Primary Care Provider Unavailabl e Encounter Details Date Type Department Care Team ([facility] Contact Info) Description 05/27/2011 9:55 AM HOGSHEAD HOOPER - 05/27/2011 11:59 PM HOGSHEAD HOOPER Hospital Encounter CH Jon Sterling MD [address] [facility] [address] [place] [address] Carlota Agarwal NP [address] [place] [address] Other viral disease contact; Exposure to sexually transmitted disease (STD); Problems related to high-risk sexual behavior Social History Tobacco Use Types Packs/Day Years Used Date Smoking Tobacco: Never Assessed Comments Unknown Sex and Gender Information Value Date Recorded Sex Assigned at Not on file Legal Sex Female 6:54 PM HOGSHEAD HOOPER Gender Identity Not on file Sexual Orientation Not on file documented as of this encounter Plan of Treatment Not on file documented as of this encounter Visit Diagnoses Diagnosis Other viral disease contact Exposure to sexually transmitted disease (STD) Contact with or exposure to venereal diseases Problems related to high-risk sexual behavior documented in this encounter
--- OUTSIDE RECORDS SUMMARY | 2024-04-27 18:08 | XMS_ITS | Encounter Summary ---
Author Organization [facility] Healthcare Address [address] [place] [address] Care Team Providers Care Mortgage Operations Manager Name Role Phone Unavailable Primary Care Provider Unavailabl e Encounter Details Date Type Department Care Team (Latest Contact Info) Description 08/29/2013 1:47 PM CDT - 08/29/2013 11:59 PM CDT Hospital Encounter [facility] Jon Sterling MD [address] [facility] [address] [place] [address] Rob Steiner NP [address] [place] [address] Encounter for supervision of normal in multigravida; screening for malformation using ultrasonics; Nonspecific abnormal findings on radiological and other examination of abdominal area, including retroperitoneum Social History Tobacco Use Types Packs/Day Years Used Date Smoking Tobacco: Never Assessed Comments Unknown Sex and Gender Information Value Date Recorded Sex Assigned at Not on file Legal Sex Female 6:54 PM LIVE 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 ??Follow up for possible brachycephaly. RESULT: Comparison with a prior study of 08/08/13 is made. ??Again noted is a single live intrauterine . ??The fetus is in a breech presentation. ??A normal amount of amniotic fluid is present. ??The placenta is located posteriorly and anteriorly in the fundus. ??It is grade 0. ?? measurements are as follows: BPD: ??55.8 mm; 23 weeks 0 days HC: ?205.8 mm; 22 weeks 5 days AC: ?177.8 mm; 22 weeks 5 days FL: ? 35.4 mm; 21 weeks 1 day Mean gestational age 22 weeks 4 days. weight 477 grams +/- 71 grams. Estimated due date 12/29/13 based on a prior study. ??A limited survey reveals normal appearing feet, cerebrum, face, facial profile, and stomach. ?? heart rate is 139 beats per minute. IMPRESSION: 1. SINGLE LIVE INTRAUTERINE WITH MEAN GESTATIONAL AGE OF 22 WEEKS 4 DAYS. ??ULISES 12/29/13 BASED ON A PRIOR STUDY. 2. AGAIN NOTED IS A MILD DISCREPANCY BETWEEN THE BPD AND HEAD CIRCUMFERENCE BUT THE DISCREPANCY HAS DECREASED SINCE THE PRIOR STUDY AND IS NOW WITHIN NORMAL LIMITS. Interpreting Physician: ??VELVET LENTZ M.D. ??Read on: ??Aug 29 2013 2:47P Transcribed by: ??paddy ??On: Aug 29 2013 ??7:19P Approved Electronically by: ??VELVTE LENTZ M.D. ??on: ??Aug 29 2013 8:01P Ordering DR: ROB STEINER Attending : ROB STEINER Procedure Note Provider, MD Amada - 08/30/2016 US OB Followup Acc#: [id number] DATE OF EXAM: Aug 29 2013 CLINICAL HISTORY: . Follow up for possible brachycephaly. RESULT: Comparison with a prior study of 08/08/13 is made. Again noted is a singlelive intrauterine . The fetus is in a breech presentation. Anormal amount of amniotic fluid is present. The placenta is locatedposteriorly and anteriorly in the fundus. It is grade 0. measurements are as follows: BPD: 55.8 mm; 23 weeks 0 days HC: 205.8 mm; 22 weeks 5 days AC: 177.8 mm; 22 weeks 5 days FL: 35.4 mm; 21 weeks 1 day Mean gestational age 22 weeks 4 days. weight 477 grams +/- 71 grams. Estimated due date 12/29/13 based on aprior study. A limited survey reveals normal appearing feet,cerebrum, face, facial profile, and stomach. heart rate is 139beats per minute. IMPRESSION: 1. SINGLE LIVE INTRAUTERINE WITH MEAN GESTATIONAL AGE OF 22WEEKS 4 DAYS. ULISES 12/29/13 BASED ON A PRIOR STUDY. 2. AGAIN NOTED IS A MILD DISCREPANCY BETWEEN THE BPD AND HEADCIRCUMFERENCE BUT THE DISCREPANCY HAS DECREASED SINCE THE PRIOR STUDY ANDIS NOW WITHIN NORMAL LIMITS. Interpreting Physician: VELVET LENTZ M.D. Read on: Aug 29 20132:47P Transcribed by: paddy On: Aug 29 2013 7:19P Approved Electronically by: VELVET LENTZ M.D. on: Aug 29 20138:01P Ordering DR: ROB STEINER Attending : ROB STEINER us Historical Provider MD RIDER US PROCEDURES Final R esult documented in this encounter Visit Diagnoses Diagnosis Encounter for supervision of normal in multigravida screening for malformation using ultrasonics Encounter for routine screening for malformation using ultrasonics Nonspecific abnormal findings on radiological and other examination of abdominal area, including retroperitoneum documented in this encounter
--- OUTSIDE RECORDS SUMMARY | 2024-04-27 18:08 | XMS_ITS | Encounter Summary ---
Author Organization [facility] Healthcare Address [address] [place] [address] Care Team Providers Care Stretch Box Tender Name Role Phone Unavailable Primary Care Provider Unavailabl e Encounter Details Date Type Department Care Team ([facility] st Contact Info) Description 01/09/2009 6:12 PM CDT - 01/09/2009 7:18 PM CDT Hospital Encounter [facility] FARNAZCONV Milo Rossi MD [address] [facility] [address] [place] [address] Gala Singh MD [address] [place] [address] [address] [place] [address] Acute upper respiratory infection; Other, multiple, and unspecified sites, insect bite, nonvenomous; Accident; Unspecified place of occurrence Social History Tobacco Use Types Packs/Day Years Used Date Smoking Tobacco: Never Assessed Comments Unknown Sex and Gender Information Value Date Recorded Sex Assigned at Not on file Legal Sex Female 6:54 PM SWIM 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
--- OUTSIDE RECORDS SUMMARY | 2024-04-27 18:08 | XMS_ITS | Encounter Summary ---
Author Organization [facility] Healthcare Address [address] [place] [address] Care Team Providers Care Mat Machine Tender Name Role Phone Unavailable Primary Care Provider Unavailabl e Encounter Details Date Type Department Care Team ([facility] st Contact Info) Description 04/09/2010 4:02 PM STACK SUPERVISOR - 04/09/2010 11:59 PM STACK SUPERVISOR Hospital Encounter CH CLINCONV Social History Tobacco Use Types Packs/Day Years Used Date Smoking Tobacco: Never Assessed Comments Unknown Sex and Gender Information Value Date Recorded Sex Assigned at Not on file Legal Sex Female 6:54 PM STACK SUPERVISOR Gender Identity Not on file Sexual Orientation Not on file documented as of this encounter Plan of Treatment Not on file documented as of this encounter Visit Diagnoses Not on filedocumented in this encounter
--- OUTSIDE RECORDS SUMMARY | 2024-04-27 18:08 | XMS_ITS | Encounter Summary ---
Author Organization [facility] Healthcare Address [address] [place] [address] Care Team Providers Care Oxygen Equipment Preparer Name Role Phone Unavailable Primary Care Provider Unavailabl e Encounter Details Date Type Department Care Team ([facility] Contact Info) Description 02/27/2013 12:56 PM CDT - 02/27/2013 1:52 PM CDT Hospital Encounter [facility] Nita Orr MD [address] [place] [id number] Sprain of rotator cuff capsule; Overexertion from sudden strenuous movement; Accidents occurring in other specified places; External cause status; Tobacco use disorder Social History Tobacco Use Types Packs/Day Years Used Date Smoking Tobacco: Never Assessed Comments Unknown Sex and Gender Information Value Date Recorded Sex Assigned at Not on file Legal Sex Female 6:54 PM 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
--- OUTSIDE RECORDS SUMMARY | 2024-04-27 18:08 | XMS_ITS | Encounter Summary ---
Author Organization [facility] Healthcare Address [address] [place] [address] Care Team Providers Care Entertainment Director Name Role Phone Unavailable Primary Care Provider Unavailabl e Encounter Details Date Type Department Care Team ([facility] st Contact Info) Description 12/23/2015 6:33 AM CDT - 12/23/2015 8:43 AM CDT Hospital Encounter [facility] Livan Hudson MD [address] [place] [address] [place] [id number] Migraine without status migrainosus, not intractable; Nicotine dependence, uncomplicated Social History Tobacco Use Types Packs/Day Years Used Date Smoking Tobacco: Never Assessed Comments Unknown Sex and Gender Information Value Date Recorded Sex Assigned at Not on file Legal Sex Female 6:54 PM 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
--- OUTSIDE RECORDS SUMMARY | 2024-04-27 18:08 | XMS_ITS | Encounter Summary ---
Author Organization [facility] Healthcare Address [address] [place] [address] Care Team Providers Care Central Control Room Operator Name Role Phone Unavailable Primary Care Provider Unavailabl e Encounter Details Date Type Department Care Team ([facility] st Contact Info) Description 05/27/2011 1:18 PM LACQUER PIN PRESS OPERATOR - 05/27/2011 11:59 PM LACQUER PIN PRESS OPERATOR Hospital Encounter [facility] Jon Sterling MD [address] [place] [address] [place] [address] Screening examination for sexually transmitted disease Social History Tobacco Use Types Packs/Day Years Used Date Smoking Tobacco: Never Assessed Comments Unknown Sex and Gender Information Value Date Recorded Sex Assigned at Not on file Legal Sex Female 6:54 PM LACQUER PIN PRESS OPERATOR Gender Identity Not on file Sexual Orientation Not on file documented as of this encounter Plan of Treatment Not on file documented as of this encounter Visit Diagnoses Diagnosis Screening examination for sexually transmitted disease documented in this encounter
--- OUTSIDE RECORDS SUMMARY | 2024-04-27 18:11 | XMS_ITS | Encounter Summary ---
Author Organization [facility] Address [address] [place] [address] [place] [address] Care Team Providers Care Personal Attendant Name Role Phone Unavailable Primary Care Provider Unavailabl e Reason for Visit * Reason Comments Sore Throat 1 day Swelling Gland pt states it hurts t o touch her neck near where glands are. Encounter Details Date Type Department Care Team (Late st Contact Info) Description 10/14/2016 12:00 PM CDT Office Visit [facility] AT [address] [address] Provider, Dahlia Exp [facility] Strep throat (Primary Dx) Social History Tobacco Use Types [...] Sign Reading Time Taken Comments Blood Pressure 138/66 10/14/2016 12:04 PM CDT Pulse 93 10/14/2016 12:04 PM CDT Temperature 36.9 ??C (98.5 ??F) 10/14/2016 12:04 PM C DT Respiratory Rate - - Oxygen Saturation 98% 10/14/2016 12:04 PM CDT Inhaled Oxygen Concentration - - Weight 81.6 kg (180 lb) 10/14/2016 12:04 PM CDT Height 152.4 cm (5') 10/14/2016 12:04 PM CDT Body Mass Index 35.15 10/14/2016 12:04 PM CDT documented in this encounter Functional [...] this encounter Patient Instructions * Patient Instructions* Anderson Rachel L, STUDENT WORKER-HEAT SET OPERATOR - 10/14/2016 12:18 PM CDT Images from the original note were not included. Rapid strep positive Warm salt water gargles Tylenol or Motrin as needed Can use Claritin or Zyrtec as needed for nasal drainage Change toothbrush 3 days after start of antibiotic Contagious x 24 hours If no improvement in 48-72 hours follow up with PCP or return to clinic Strep Throat WHAT YOU NEED TO KNOW: Strep throat is a throat infection caused by bacteria. It is easily spread from person to person. DISCHARGE INSTRUCTIONS: Call 911 for any of the following: ?? You have trouble breathing. Return to the emergency department if: ?? You have new symptoms like a bad headache, stiff neck, chest pain, or vomiting. ?? You are drooling because you cannot swallow your spit. Contact your healthcare provider if: ?? You have a fever. ?? You have a rash or ear pain. ?? You have green, yellow-brown, or bloody mucus when you cough or blow your nose. ?? You are unable to drink anything. ?? You have questions or concerns about your condition or care. Medicines: ?? Antibiotics help treat your strep throat. You should feel better within 2 to 3 days after you start antibiotics. ?? Take your medicine as directed. Contact [...] with you in case of an emergency. Manage your symptoms: ?? Use lozenges, ice, soft foods, or popsicles to soothe your throat. ?? Drink juice, milk shakes, or soup if your throat is too sore to eat solid food. Drinking liquidscan also help prevent dehydration. ?? Gargle with salt water. Mix ?? teaspoon salt in a glass of warm water and gargle. This may help reduce swelling in your throat. ?? Do not smoke. Nicotine and other chemicals in cigarettes and cigars can cause lung damage and make your symptoms worse. Ask your healthcare provider for information if you currently smoke and needhelp to quit. E-cigarettes or smokeless tobacco still contain nicotine. Talk to your healthcare provider before you use these products. Return to work or school 24 hours after you start antibiotic medicine. Prevent the spread of strep throat: ?? Wash your hands often. Use soap and water. Wash your hands after you use the bathroom, change a child's diapers, or sneeze. Wash your hands before you prepare or eat food. ?? Do not share food or drinks. Replace your toothbrush after you have taken antibiotics for 24 hours. Follow up with your healthcare provider as directed: Write down your questions so you remember to ask them during your visits. ?? 2016 [employer]. Information is for End User's use only and may not be sold, redistributed or otherwise used for commercial purposes. All illustrations and images included in CareNotes?? are the copyrighted property of [employer] or [employer]. The above information is an room maid only. It is not intended as medical advice for individual conditions or treatments. Talk to your doctor, nurse or pharmacist before following any medical regimen to see if it is safe and effective for you. documented in this encounter Progress Notes * Rachel Anderson APRN-CNP - 10/14/2016 12:03 PM CDT [facility] Chief Complaint Patient presents with ??? Sore Throat 1 day ??? Swelling Gland pt states it hurts to touch her neck near where glands are. SUBJECTIVE: General The history is provided by the patient. This is a new problem. The current episode started 3 to 5 hours ago. The problem occurs constantly. The problem has been gradually worsening. The pain is at a severity of 5/10. The pain is mild. Pertinent negatives include no headaches. The symptoms are aggravated by swallowing. Treatments tried: cough drops. The treatment provided mild relief. 20 y/o female presents with sore throat and swollen glands x started this am. Past Medical History: Diagnosis Date ??? Chlamydia [...] Outpatient Prescriptions Medication Sig Dispense Refill ??? amoxicillin (AMOXIL) 875 MG tablet Take 1 Tab by mouth 2 times daily for 10 days 20 Tab 0 No current facility-administered medications for this visit. No Known Allergies REVIEW OF SYSTEMS: Review of Systems Constitutional: Negative for chills and fever. HENT: Positive for ear pain and sore throat. Negative for congestion. Respiratory: Positive for cough. Gastrointestinal: Negative for diarrhea, nausea and vomiting. Neurological: Negative for dizziness and headaches. OBJECTIVE: General appearance: alert, well appearing, and in no distress. BP 138/66 (BP SITE: LEFT ARM, BP POSITION: SITTING, BP CUFF SIZE: Adult) Pulse 93 Temp 98.5 ??F (Oral) Ht 1.524 m (5') Wt 81.6 kg (180 lb) SpO2 98% BMI 35.15 kg/m2 Physical Exam Constitutional: She is oriented to person, place, and time and well-developed, well-nourished, and in no distress. HENT: Head: Normocephalic and atraumatic. Bilateral TM cerumen partially occluding canal, absent tonsils, erythema posterior pharynx Neck: Normal range of motion. Neck supple. Cardiovascular: Normal rate and regular rhythm. Pulmonary/Chest: Effort normal and breath sounds normal. Lymphadenopathy: She has cervical adenopathy. Neurological: She is alert and oriented to person, place, and time. Vitals reviewed. ASSESSMENT: Office Visit on 10/14/16 STREP A SCREEN - POINT OF CARE (AMB) STL Result Value Ref Range Strep A Rapid Positive (Abnormal) Negative Strep A INTERNAL CONTROL Present Lot Number [id number] Expiration Date [id number] Encounter Diagnosis Name Primary? Strep throat Yes PLAN: Rapid strep positive Warm salt water gargles Tylenol or Motrin as needed Can use Claritin or Zyrtec as needed for nasal drainage Change toothbrush 3 days after start of antibiotic Contagious x 24 hours If no improvement in 48-72 hours follow up with PCP or return to clinic documented in this encounter Plan of Treatment Not on file documented as of this encounter Procedures Procedure Name Priority Date/Time Associated Diagnosis Comments STREP A SCREEN - POINT OF CARE (AMB) STL Routine 10/14/2016 12:20 PM CDT Strep throat documented in this encounter Results * (ABNORMAL) STREP A SCREEN - POINT OF CARE (AMB) STL (10/14/2016 12:20 PM CDT) Strep A Rapid POCT Positive(A) Negative Strep A Internal Control Present Lot # [id number] Expiration Date [id number] Throat ENTIRE THROAT (SURFACE REGION OF NECK) / Unknown 10/14/2016 12:20 PM CDT [facility] - POINT O F CARE ORDERABLES documented in this encounter Visit Diagnoses Diagnosis Strep throat- Primary Streptococcal sore throat documented in this encounter
--- OUTSIDE RECORDS SUMMARY | 2024-04-27 18:17 | XMS_ITS | Encounter Summary ---
Author Organization [facility] Healthcare Address [address] [place] [address] Care Team Providers Care Ruby Rails Developer Name Role Phone Unavailable Primary Care Provider Unavailabl e Encounter Details Date Type Department Care Team ([facility] st Contact Info) Description 06/16/2016 7:42 PM DRY ICE MAKER - 06/16/2016 9:11 PM DRY ICE MAKER Hospital Encounter [facility] Misha Lee Jr., MD [address] [place] [address] [place] [address] Acute bronchospasm; Cigarette nicotine dependence, uncomplicated Social History Tobacco Use Types Packs/Day Years Used Date Smoking Tobacco: Never Assessed Comments Unknown Sex and Gender Information Value Date Recorded Sex Assigned at Not on file Legal Sex Female 6:54 PM DRY ICE MAKER Gender Identity Not on file Sexual Orientation Not on file documented as of this encounter Plan of Treatment Not on file documented as of this encounter Procedures Procedure Name Priority Date/Time Associated Diagnosis Comments XR CHEST PA LATERAL 2 VIEWS Routine 06/16/2016 8:48 PM DRY ICE MAKER documented in this encounter Results * XR Chest Pa Lateral 2 Vw (06/16/2016 8:48 PM DRY ICE MAKER) Anatomical Region Laterality Modality Body, Chest N/A Radiographic Antonette ging 06/16/2016 8:48 PM DRY ICE MAKER Narrative 06/18/2016 3:56 PM DRY ICE MAKER XR Chest 2 Views ?[id number] ??Acc#: ??[id number] DATE OF EXAM: ??Feb ??2016 CLINICAL HISTORY: Cough and congestion, bronchitis. RESULT: Two views of the chest demonstrate clear lungs bilaterally with no focal infiltrates. ??The heart size and pulmonary vascularity are normal. IMPRESSION: NO ACTIVE DISEASE. Interpreting Physician: ??DR ROMELIA HINOJOSA M.D. ??Read on: ??b ??2016 9:55A Transcribed by: ??nga ??On: Jun ??8 2016 ??9:55A Approved Electronically by: ??MICAELA Vargas, DR LEÓN ??on: ??Feb ??2016 3:55P Attending: ??MISHA KAISER Requesting: ??J[place]ICA JOINER Requesting Fax: ??-- Attending Fax: ??-- Attending ID: ??[id number] Requesting ID: ??[id number] Report To 1 ID: ??[id number] Report To 1 Name: ??MISHA KAISER Report To 1 FAX: ??-- NextGen Order #: Procedure Note Provider, MD Amada - 09/16/2016 XR Chest 2 Views [id number] Acc#: [id number] DATE OF EXAM: Jun 16 2016 CLINICAL HISTORY: Cough and congestion, bronchitis. RESULT: Two views of the chest demonstrate clear lungs bilaterally with no focalinfiltrates. The heart size and pulmonary vascularity are normal. IMPRESSION: NO ACTIVE DISEASE. Interpreting Physician: DR ROMELIA HINOJOSA M.D. Read on: Jun 17 [id number] Transcribed by: nga On: Jun 17 2016 9:55A Approved Electronically by: MICAELA Vargas, DR LEÓN on: Jun 18 20163:[id number] Attending: MISHA KAISER Requesting: J[place]ICA JOINER Requesting Fax: -- Attending Fax: -- Attending ID: [id number] Requesting ID: [id number] Report To 1 ID: [id number] Report To 1 Name: MISHA KAISER Report To 1 FAX: -- NextGen Order #: us Historical Provider MD RIDER XR PROCEDURES Final R esult documented in this encounter Visit Diagnoses Diagnosis Acute bronchospasm Cigarette nicotine dependence, uncomplicated documented in this encounter
== END 2024-04-23 09:11 | disposition home or self-care (01) ==
PROVIDERS: Emergency Provider Nurse Practitioner Family; PCP Family Medicine
DX: J22 Unspecified acute lower respiratory infection (principal); Z87.891 Personal history of nicotine dependence; Z90.711 Acquired absence of uterus with remaining cervical stump
CPT/HCPCS: 99213; G0463